=== PATIENT | female | born 1970 | race Two or more races ===

== ENCOUNTER 2020-06-16 10:23 | Outpatient (REF) | payer MEDICAID, SELFPAY | END 2020-06-16 10:24 | disposition home or self-care (01) | LOC: HO.MDS 10:23 | PROVIDERS: PCP Internal Medicine Geriatric Medicine; Visit Provider Internal Medicine Gastroenterology | DX: K50.10 Crohn's disease of large intestine without complications (principal) | CPT/HCPCS: 96372 ==

== ENCOUNTER 2020-07-17 14:20 | Outpatient (REF) | payer MEDICAID, SELFPAY | END 2020-07-17 14:21 | disposition home or self-care (01) | LOC: HO.MDS 14:20 | PROVIDERS: PCP Internal Medicine Geriatric Medicine; Visit Provider Internal Medicine Gastroenterology | DX: K50.118 Crohn's disease of large intestine with other complication (principal) | CPT/HCPCS: 96372 ==

== ENCOUNTER 2020-08-14 | Outpatient (REF) | payer MEDICAID, SELFPAY | END 2020-08-14 00:01 | disposition home or self-care (01) | LOC: HO.MDS | PROVIDERS: PCP Internal Medicine Geriatric Medicine; Visit Provider Internal Medicine Gastroenterology | DX: K50.118 Crohn's disease of large intestine with other complication (principal) | CPT/HCPCS: 96372; J3357 ==

== ENCOUNTER 2020-09-11 10:04 | Outpatient (REF) | payer MEDICAID, SELFPAY | END 2020-09-11 10:05 | disposition home or self-care (01) | LOC: HO.MDS 10:04 | PROVIDERS: PCP Internal Medicine Geriatric Medicine; Visit Provider Internal Medicine Gastroenterology | DX: K50.118 Crohn's disease of large intestine with other complication (principal) | CPT/HCPCS: 96372; J3357 ==

== ENCOUNTER 2020-10-05 19:48 | Emergency (ER) | payer MEDICAID, SELFPAY ==
[2020-10-05 19:53] VITALS: BP 147/95; BP 160/108; PULSE 72; PULSE 80; RESP 18; TEMP 36.8; O2SAT 96; O2SAT 98; BMI 33.9
[2020-10-05 20:00] VITALS: BP 127/72; PULSE 73; RESP 16; O2SAT 98
--- NOTE | 2020-10-05 20:57 | ECG_ITS ---
Test Reason : HIGH BP HEADACHE Blood Pressure : / mmHG Vent. Rate : 066 BPM Atrial Rate : 066 BPM P-R Int : 130 ms QRS Dur : 080 ms QT Int : 432 ms P-R-T Axes : -09 016 017 degrees QTc Int : 452 ms Sinus rhythm with occasional Premature ventricular complexes Otherwise normal ECG When compared with ECG of 24-APR-2020 21:02, Premature ventricular complexes are now Present Referred By: Kenia Caro Electronically Signed By:ZHANE SUTTON MD
--- NOTE | 2020-10-05 21:36 | ED.GENADULT ---
HPI - General Adult General Chief complaint: General Medical Stated complaint: high blood pressure Time Seen by Provider: 10/05/20 20:02 Source: patient and client leader Mode of arrival: EMS History of Present Illness HPI narrative: This is a 50-year-old female with history of hypertension, Crohn's who presents with 2 days of elevated blood pressure and denies any associated medication changes or new medications recently. Patient states that this has been associated with a headache and chills but denies any speech or unilateral numbness/weakness/tingling. In addition, she denies any shortness of breath, chest pain/palpitations, nausea, abdominal discomfort, diarrhea, but states she is having some suprapubic discomfort. She states that she has not contacted her primary care physician regarding her blood pressure. Related Data Home Medications Medication Instructions Recorded Confirmed amitriptyline 2 tab PO BEDTIME 10/05/20 10/05/20 amlodipine 1 tab PO QAM 10/05/20 10/05/20 budesonide 3 cap PO QAM 10/05/20 10/05/20 budesonide-formoterol [Symbicort] 2 puff PO BID 10/05/20 10/05/20 calcium carbonate-vitamin D3 1 tab PO BID 10/05/20 10/05/20 clonazepam 1 tab PO DAILY PRN 10/05/20 10/05/20 docusate sodium [DOK] 1 cap PO BID 10/05/20 10/05/20 doxazosin 1 tab PO BEDTIME 10/05/20 10/05/20 ergocalciferol (vitamin D2) 1 cap PO QWEEK 10/05/20 10/05/20 esomeprazole magnesium 1 cap PO QAM 10/05/20 10/05/20 methotrexate sodium 10 tab PO QWEEK 10/05/20 10/05/20 montelukast 1 tab PO BEDTIME 10/05/20 10/05/20 multivitamin 1 tab PO QAM 10/05/20 10/05/20 paroxetine HCl 1 tab PO QAM 10/05/20 10/05/20 topiramate 1 tab PO BID 10/05/20 10/05/20 tramadol 1 tab PO BID PRN 10/05/20 10/05/20 ustekinumab [Stelara] 1 syringe SUBCUT Q4W 10/05/20 10/05/20 vitamin B complex-folic acid [B 2 tab PO QAM 10/05/20 10/05/20 Complex 1 (with folic acid)] zolpidem 1 tab PO BEDTIME 10/05/20 10/05/20 Previous Rx's Medication Instructions Recorded budesonide 3 mg 9 mg PO DAILY 30 Days #90 ea 06/19/20 capsule,delayed,extended release vitamin B complex 2 tab PO DAILY 30 Days #60 tab 07/31/20 Allergies Allergy/AdvReac Type Severity Reaction Status Date / Time aspirin [ASA] Allergy Intermediate RASH Verified 10/05/20 20:00 azathioprine [From IMURAN] Allergy Intermediate PANCREATIC Verified 10/05/20 20:00 INFLAMMATION ibuprofen [IBUPROFEN] Allergy Intermediate TOLD NOT Verified 10/05/20 20:00 TO TAKE levofloxacin [From LEVAQUIN] Allergy Mild YEAST Verified 10/05/20 20:00 INFECTIONS Review of Systems Review of Systems: Pertinent positives and negatives as stated in HPI 10 point review systems is otherwise negative. [facility] Past Medical History Source: nursing notes reviewed Medical History Arthritis Cancer Crohn's disease HTN (hypertension) Migraine Social History Social History Advance Directives: No Advance Directives Information Provided: Yes Physical Exam Vital Signs: Vital Signs: Last Vital Signs Temp 98.2 F 10/05/20 19:53 Pulse 80 10/05/20 19:53 Resp 18 10/05/20 19:53 BP 147/95 H 10/05/20 19:53 Pulse Ox 98 10/05/20 19:53 Body Mass Index 33.9 VITAL SIGNS: Reviewed. GENERAL: Well developed, well nourished, mild distress. HEAD: Normocephalic/atraumatic, EYES: PERRLA, EOMI intact without pain, no nystagmus/pallor/icterus noted EARS: Ext canals without abnormality NOSE: Nares patent bilateral OROPHARYNX: no oral lesions noted, posterior pharynx clear NECK: Supple, no adenopathy LUNGS: Normal breath sounds. No adventitious sounds or accessory muscle use. SpO2<98> CARDIOVASCULAR: Regular rate and rhythm without noted murmurs, no JVD or lower extremity edema. ABDOMEN: Soft, non-tender, non-distended with bowel sounds. No rigidity. No guarding. No palpable masses or hernias noted MUSCULOSKELETAL: No tenderness, deformities, or effusions noted on gross inspection. EXTREMITIES: No cyanosis, clubbing or edema. SKIN: Inspection of the skin reveals no rashes, ulcerations, jaundice, pallor, or petechiae. NEUROLOGIC: Alert and oriented x 4. Strength and sensation to light touch were grossly intact x 4, no pronator drift, no facial asymmetry, cranial nerves 2-12 are grossly intact. Course Course Course Narrative: This is a 50-year-old female with history and clinical presentation consistent with likely migraine given her history and presenting symptoms without significant neural deficits and blood pressure although somewhat elevated low suspicion for contribution to patient's symptoms. On re-evaluation patient states that she has improved after receiving the migraine cocktail. On review of all investigations there are no acute findings to suggest Crohn's flare, UTI, electrolyte abnormalities. There is a noted transaminemia that appears to be consistent with prior values and no evidence to suggest a cholecystitis or hepatitis etiology in nature. As patient has continued to improve with her migraine treatment and has had significant reduction in her migraine-like symptoms she was discharged in stable condition with instructions to continue with her migraine medications and to follow up with her primary care provider by calling the office in the morning. Medical Decision Making Lab Data Result diagrams: 10/05/20 21:44 10/05/20 21:44 Labs: Lab Results 10/05/20 10/05/20 10/05/20 Range/Units 21:44 21:44 22:10 WBC 9.2 (4.8-10.8) X10*3/uL RBC 5.07 (4.20-5.50) X10*6/uL Hgb 14.2 (12.0-16.0) g/dl Hct 43.7 (37-47) % MCV 86.2 (80-98) fL MCH 28.0 (27.0-33.0) pg MCHC 32.5 (31.0-35.0) g/dl RDW 15.8 (11.0-16.0) % Plt Count 293 (160-400) X10*3/uL MPV 12.0 (9.4-12.3) fL Immature Gran % (Auto) 0.2 (0.0-0.4) % Neut % (Auto) 73.4 H (45-73) % Lymph % (Auto) 18.0 L (20-40) % Craig % (Auto) 5.5 (2-11) % Eos % (Auto) 2.4 (0-4) % Baso % (Auto) 0.5 (0-2) % Lymph # (Auto) 1.7 (1.2-4.9) X10*3/uL Craig # (Auto) 0.5 (0.1-1.2) X10*3/uL Eos # (Auto) 0.2 (0.0-0.4) X10*3/uL Baso # (Auto) 0.1 (0.0-0.2) X10*3/uL Abs Immat Gran (auto) 0.02 (0.00-0.03) X10*3/uL Absolute Neuts (auto) 6.7 (2.0-8.3) X10*3/uL Absolute Nucleated RBC 0.000 (0.0-0.012) X10*3/uL Nucleated RBC % (auto) 0.0 (0.0-0.2) /100WBC Sodium 138 (135-145) mmol/L Potassium 4.4 (3.3-5.1) mmol/L Chloride 103 (96-108) mmol/L Carbon Dioxide 25 (22-29) mmol/L Anion Gap 14 (12-20) BUN 14 (9-16) mg/dL Creatinine 0.76 (0.5-1.4) mg/dL Estim Creat Clear Calc 92.5 Estimated GFR > 60 Random Glucose 92 (60-115) mg/dL Calcium 9.8 (8.4-10.2) mg/dL Total Bilirubin 0.3 (0.0-1.0) mg/dL AST 88 H (5-31) U/L ALT 131 H (0-31) U/L Alkaline Phosphatase 96 (39-117) U/L Total Protein 8.3 H (6.5-8.0) g/dL Albumin 4.7 (3.5-5.0) g/dL Urine Color YELLOW Urine Appearance CLEAR Urine pH 7.0 (5.0-8.0) Ur Specific [place] 1.020 (1.005-1.025) Urine Protein 1+ H (NEG-TRACE) MG/DL Urine Glucose (UA) NEG (NEG) MG/DL Urine Ketones NEG (NEG) MG/DL Urine Blood TRACE (NEG) Urine Nitrite NEG (NEG) Ur Leukocyte Esterase NEG (NEG) Urine RBC 1-4 (0) /HPF Urine WBC 0-2 (0-4) /HPF Ur Squamous Epith Cells TRACE /LPF Urine Bacteria NONE /LPF Urine Mucus TRACE /LPF ECG Data Attestation: I personally reviewed and interpreted this ECG as follows: Prior ECG tracings: available for review (04/24/2020 no acute changes on comparison) Interpretation: Sinus rhythm, HR-66, no acute evidence of ischemia, DC/QRS/QTC are within normal limits. Discharge Plan Discharge Clinical Impression: Migraine Qualifiers: Migraine type: unspecified Status migrainosus presence: without status migrainosus Intractability: not intractable Qualified Code(s): G43.909 - Migraine, unspecified, not intractable, without status migrainosus Hypertension Qualifiers: Hypertension type: unspecified Qualified Code(s): I10 - Essential (primary) hypertension Patient Disposition: Home, Self-Care Instructions: Migraine Headache (ED), Hypertension (ED), DASH Eating Plan (ED) Additional Instructions: 1. Reanude todos los medicamentos caseros seg?n lo prescrito. 2. Llame al consultorio de johnston proveedor de atenci?n primaria a primera hora de la ma?bernadine para programar juan daniel amber de seguimiento para el manejo de la migra?a. No dude en volver al servicio de urgencias si experimenta un empeoramiento sarina de zoran s?ntomas. Prescriptions: No Action budesonide 3 mg capsule,delayed,extend.release 9 mg PO DAILY 30 Days Qty: 90 RF: 3 vitamin B complex Tablet 2 tab PO DAILY 30 Days Qty: 60 RF: 3 multivitamin Tablet 1 tab PO QAM RF: 0 clonazepam 0.5 mg tablet 1 tab PO DAILY PRN (Reason: anxiety) RF: 0 tramadol 50 mg tablet 1 tab PO BID PRN (Reason: Pain) RF: 0 amitriptyline 25 mg tablet 2 tab PO BEDTIME RF: 0 methotrexate sodium 2.5 mg tablet 10 tab PO QWEEK RF: 0 amlodipine 10 mg tablet 1 tab PO QAM RF: 0 docusate sodium [DOK] 100 mg capsule 1 cap PO BID RF: 0 montelukast 10 mg tablet 1 tab PO BEDTIME RF: 0 ergocalciferol (vitamin D2) 1,250 mcg (50,000 unit) capsule 1 cap PO QWEEK RF: 0 budesonide 3 mg capsule,delayed,extend.release 3 cap PO QAM RF: 0 zolpidem 10 mg tablet 1 tab PO BEDTIME RF: 0 paroxetine HCl 40 mg tablet 1 tab PO QAM RF: 0 topiramate 100 mg tablet 1 tab PO BID RF: 0 doxazosin 2 mg tablet 1 tab PO BEDTIME RF: 0 esomeprazole magnesium 20 mg capsule,delayed release(DR/EC) 1 cap PO QAM RF: 0 vitamin B complex-folic acid [B Complex 1 (with folic acid)] 0.4 mg tablet 2 tab PO QAM RF: 0 calcium carbonate-vitamin D3 600 mg(1,500mg) -400 unit tablet 1 tab PO BID RF: 0 budesonide-formoterol [Symbicort] 160-4.5 mcg/actuation HFA aerosol inhaler 2 puff PO BID RF: 0 Stelara 90 mg/mL syringe 1 syringe subcut Q4W RF: 0 Referrals: [facility] [Primary Care Provider] - 2 days (Re-evaluation after seeing the emergency department for migraine and elevated blood pressure.) Print Language: Georgian
[2020-10-05 21:55] LABS: MANUAL DIFF FLAG NO
[2020-10-05 21:56] LABS: Basophils Absolute Auto 0.1 X10*3/uL (0.0-0.2); Basophils Percent Auto 0.5 % (0-2); Eosinophils Absolute Auto 0.2 X10*3/uL (0.0-0.4); Eosinophils Percent Auto 2.4 % (0-4); Hematocrit 43.7 % (37-47); Hemoglobin 14.2 g/dl (12.0-16.0); Imm Gran Abs Auto 0.02 X10*3/uL (0.00-0.03); Imm Gran Pct Auto 0.2 % (0.0-0.4); Lymphocytes Absolute Auto 1.7 X10*3/uL (1.2-4.9); Mean Corpuscular HGB Conc 32.5 g/dl (31.0-35.0); Mean Corpuscular Volume 86.2 fL (80-98); Monocytes Absolute Auto 0.5 X10*3/uL (0.1-1.2); Monocytes Percent Auto 5.5 % (2-11); Neutrophils Absolute Auto 6.7 X10*3/uL (2.0-8.3); Neutrophils Percent Auto 73.4 % (45-73); Platelet Count 293 X10*3/uL (160-400); Red Blood Count 5.07 X10*6/uL (4.20-5.50); Red Cell Distribution Width 15.8 % (11.0-16.0); White Blood Count 9.2 X10*3/uL (4.8-10.8)
[2020-10-05] MEDS: 0.9 % Sodium Chloride 1,000 ML 999 ML IV (22:08)
[2020-10-05] MEDS: Metoclopramide HCl 10 MG/2 ML VIAL IVPUSH (22:09)
[2020-10-05] MEDS: diphenhydrAMINE HCL 50 MG/ML VIAL 25 MG IVPUSH (22:09)
--- NOTE | 2020-10-05 22:09 | PC.NURSE ---
pt medicated per emar for head pain. pt neuro intact. perrla
[2020-10-05 22:17] LABS: Glucose Urine UA NEG (NEG); Leukocyte Esterase Urine NEG (NEG); Nitrite Urine NEG (NEG); Urine Blood TRACE (NEG); Urine Ketones NEG (NEG); Urine Protein 1+ MG/DL (NEG-TRACE)
[2020-10-05 22:21] LABS: Appearance Urine CLEAR; Color Urine YELLOW
[2020-10-05 22:26] LABS: Mucus Urine TRACE /LPF; Squamous Epithelial Cell Urine TRACE /LPF; WBC Urine 0-2 /HPF (0-4)
[2020-10-05 22:41] LABS: Alanine Aminotransferase 131 U/L (0-31); Albumin Level 4.7 g/dL (3.5-5.0); Alkaline Phosphatase 96 U/L (39-117); Anion Gap 14 (12-20); Aspartate Amino Transferase 88 U/L (5-31); Bilirubin Total 0.3 mg/dL (0.0-1.0); Blood Urea Nitrogen 14 mg/dL (9-16); Calcium 9.8 mg/dL (8.4-10.2); Carbon Dioxide 25 mmol/L (22-29); Chloride 103 mmol/L (96-108); Creatinine Clr Calc Pharmacy 92.5; Estimated Glomerular Filt Rate > 60; Glucose Random 92 mg/dL (60-115); Potassium 4.4 mmol/L (3.3-5.1); Sodium 138 mmol/L (135-145); Total Protein 8.3 g/dL (6.5-8.0)
== END 2020-10-05 23:36 | disposition home or self-care (01) ==
PROVIDERS: Emergency Provider Student in an Organized Health Care Education/Training Program
DX: G43.909 Migraine, unspecified, not intractable, without status migrainosus (principal); I10 Essential (primary) hypertension; Z79.899 Other long term (current) drug therapy
CPT/HCPCS: 36415; 80053; 81001; 85025; 93005; 96361; 96374; 96375; 99284; J1200; J2765

== ENCOUNTER 2020-10-10 10:57 | Outpatient (REF) | payer MEDICAID, SELFPAY | END 2020-10-10 10:58 | disposition home or self-care (01) | LOC: HO.MDS 10:57 | PROVIDERS: PCP Internal Medicine Geriatric Medicine; Visit Provider Internal Medicine Gastroenterology | DX: K50.118 Crohn's disease of large intestine with other complication (principal) | CPT/HCPCS: 96372; J3357 ==

== ENCOUNTER 2020-11-07 11:36 | Outpatient (REF) | payer MEDICAID, SELFPAY | END 2020-11-07 11:37 | disposition home or self-care (01) | LOC: HO.MDS 11:36 | PROVIDERS: PCP Internal Medicine Geriatric Medicine; Visit Provider Internal Medicine Gastroenterology | DX: K50.118 Crohn's disease of large intestine with other complication (principal) | CPT/HCPCS: 96372; J3357 ==

== ENCOUNTER 2020-11-17 15:06 | Outpatient (REF) | payer MEDICAID, SELFPAY ==
[2020-11-17 16:40] LABS: MANUAL DIFF FLAG NO
[2020-11-17 16:53] LABS: Basophils Absolute Auto 0.1 X10*3/uL (0.0-0.2); Basophils Percent Auto 0.6 % (0-2); Eosinophils Absolute Auto 0.2 X10*3/uL (0.0-0.4); Eosinophils Percent Auto 1.6 % (0-4); Hematocrit 40.4 % (37-47); Hemoglobin 13.2 g/dl (12.0-16.0); Imm Gran Abs Auto 0.03 X10*3/uL (0.00-0.03); Imm Gran Pct Auto 0.3 % (0.0-0.4); Lymphocytes Absolute Auto 1.9 X10*3/uL (1.2-4.9); Lymphocytes Percent Auto 20.6 % (20-40); Mean Corpuscular HGB Conc 32.7 g/dl (31.0-35.0); Mean Corpuscular Hemoglobin 28.5 pg (27.0-33.0); Mean Corpuscular Volume 87.3 fL (80-98); Mean Platelet Volume 12.2 fL (9.4-12.3); Monocytes Absolute Auto 0.8 X10*3/uL (0.1-1.2); Monocytes Percent Auto 8.2 % (2-11); Neutrophils Absolute Auto 6.5 X10*3/uL (2.0-8.3); Neutrophils Percent Auto 68.7 % (45-73); Platelet Count 278 X10*3/uL (160-400); Red Blood Count 4.63 X10*6/uL (4.20-5.50); Red Cell Distribution Width 15.9 % (11.0-16.0); White Blood Count 9.4 X10*3/uL (4.8-10.8)
[2020-11-17 17:12] LABS: C Reactive Protein 0.86 mg/dL (< or = 0.50); Cholesterol 247 mg/dL; HDL Cholesterol 55 mg/dL; LDL Cholesterol Calculated 159 mg/dl; Triglycerides 168 mg/dL
[2020-11-17 17:34] LABS: Vitamin D 25-OH Total 24.5 ng/mL (>30)
[2020-11-17 17:59] LABS: Erythrocyte Sedimentation Rate 14 MM/HR (0-20)
== END 2020-11-17 15:07 | disposition home or self-care (01) ==
LOC: HO.LAB 15:06
PROVIDERS: PCP Internal Medicine; Visit Provider Internal Medicine Gastroenterology
DX: K50.10 Crohn's disease of large intestine without complications (principal); R79.89 Other specified abnormal findings of blood chemistry; E55.9 Vitamin D deficiency, unspecified
CPT/HCPCS: 36415; 80061; 82306; 85025; 85652; 86140; 99212

== ENCOUNTER 2020-12-05 11:58 | Outpatient (REF) | payer MEDICAID, SELFPAY | END 2020-12-05 11:59 | disposition home or self-care (01) | LOC: HO.MDS 11:58 | PROVIDERS: Visit Provider Internal Medicine Gastroenterology | DX: K50.118 Crohn's disease of large intestine with other complication (principal) | CPT/HCPCS: 96372; J3357 ==

== ENCOUNTER 2020-12-11 10:00 | Outpatient (REF) | payer MEDICAID, SELFPAY ==
--- NOTE | ~2020-12-11 | MM_ITS ---
EXAMINATION: MM SCREENING DIGITAL BREAST TOMOSYNTHESIS, BILATERAL CLINICAL INFORMATION: Screening. Asymptomatic. The lifetime risk of breast cancer based on the Tyrer-Cuzick Model is 6%. COMPARISON: Mammography: 12/15/2018, 02/08/2014 TECHNIQUE: Digital breast tomosynthesis is performed in both the craniocaudal and mediolateral oblique views along with computer-aided detection (CAD). Synthesized 2D images are generated from the tomosynthesis. FINDINGS: There are scattered areas of fibroglandular density (ACR BI-RADS breast composition Category b). There are no significant masses, abnormal calcifications, or other abnormalities. No significant changes from prior studies. MM/MM tomosynthesis screening BI IMPRESSION: No mammographic evidence of malignancy. ASSESSMENT: BI-RADS 1: Negative RECOMMENDATION: Routine annual mammography screening. This patient's information was entered into a reminder system with a target due date for their next mammogram.
== END 2020-12-11 10:01 | disposition home or self-care (01) ==
LOC: HO.MAMMO 10:00
PROVIDERS: Visit Provider Internal Medicine
DX: Z12.31 Encounter for screening mammogram for malignant neoplasm of breast (principal)
CPT/HCPCS: 77063; 77067

== ENCOUNTER 2021-01-02 12:42 | Outpatient (REF) | payer MEDICAID, SELFPAY | END 2021-01-02 12:43 | disposition home or self-care (01) | LOC: HO.MDS 12:42 | PROVIDERS: PCP Internal Medicine; Visit Provider Internal Medicine Gastroenterology | DX: K50.118 Crohn's disease of large intestine with other complication (principal) | CPT/HCPCS: 96372; J3357 ==

== ENCOUNTER 2021-01-30 11:58 | Outpatient (REF) | payer MEDICAID, SELFPAY | END 2021-01-30 11:59 | disposition home or self-care (01) | LOC: HO.MDS 11:58 | PROVIDERS: PCP Internal Medicine; Visit Provider Internal Medicine Gastroenterology | DX: K50.118 Crohn's disease of large intestine with other complication (principal) | CPT/HCPCS: 96372; J3357 ==

== ENCOUNTER 2021-03-01 09:29 | Inpatient (IN) | payer MEDICAID, SELFPAY ==
[2021-03-01] VITALS (9 sets, daily range): BP systolic 117–200; BP diastolic 64–135; PULSE 60–90; RESP 15–18; TEMP 35.8–36.8; O2SAT 96–100; BMI 34.1
--- NOTE | ~2021-03-01 | CT_ITS ---
EXAMINATION: CT ABDOMEN AND PELVIS WITH CONTRAST CLINICAL INFORMATION: Crohn's disease. Abdominal pain. COMPARISON: Previous CT scan of the abdomen and pelvis most recent March 2020 TECHNIQUE: Multidetector volumetric images were obtained from the superior aspect of the liver through the pubic symphysis following administration 85 mL of Omnipaque 350 intravenous contrast. Sagittal and coronal reformatted images were obtained on the technologist's workstation. Oral contrast: Yes This CT examination was performed using dose optimization techniques as appropriate, variously including the following: *Automated exposure control *Adjustment of mA and/or kV according to patient size (this includes techniques or standardized protocols for targeted exams where dose is matched to indication/reason for exam; i.e. extremities or head) *Use of iterative reconstruction technique DLP: 641 mGy-cm FINDINGS: LUNG BASES: The visualized lung bases are unremarkable. LIVER, GALLBLADDER, AND BILIARY TREE: The liver is normal in size, shape, and attenuation. No focal hepatic lesion or biliary ductal dilatation is present. The gallbladder is unremarkable with no evidence of radiopaque gallstones, gallbladder wall thickening, or obvious pericholecystic inflammatory changes. PANCREAS: Unremarkable. SPLEEN: Unremarkable. ADRENAL GLANDS: Unremarkable. KIDNEYS AND URETERS: The kidneys are normal in size, shape, and attenuation. No hydronephrosis, hydroureter, or calculi seen. No perinephric stranding. BLADDER: Unremarkable. GASTROINTESTINAL TRACT: There are postsurgical changes to the proximal sigmoid colon. There is wall thickening of the transverse colon and left colon. There is some edema or low-attenuation in the wall of the colon, stranding of the surrounding fat and prominent vasa recta. Appearance is suggestive of active colitis. No evidence of obstruction, perforation or abscess is seen. Small and large bowel is otherwise unremarkable. The appendix is unremarkable. ABDOMINAL WALL: There are postsurgical changes to the anterior abdominal wall in evidence of previous hernia repairs with mesh. No recurrent hernia is seen. LYMPH NODES: Unremarkable VASCULAR: Unremarkable. PELVIC VISCERA: Unremarkable. OSSEOUS STRUCTURES: There is degenerative disc disease at L5-S1. CT/CT abdomen pelvis w con IMPRESSION: Colitis of the transverse colon and left colon.
--- NOTE | ~2021-03-01 | US_ITS ---
EXAMINATION: US RETROPERITONEAL LIMITED (RENAL ONLY) CLINICAL INFORMATION: Rule out stone. COMPARISON: None TECHNIQUE: Portable limited ultrasound technique. FINDINGS: RIGHT KIDNEY: 9.1 x 4.7 x 4.5 cm (SAG x AP x TRV). The kidney is normal in size, contour, and echogenicity. Renal cortical thickness is normal. No calculi or focal parenchymal lesions. No hydronephrosis. LEFT KIDNEY: 9 x 5.3 x 5.8 cm (SAG x AP x TRV). The kidney is normal in size, contour, and echogenicity. Renal cortical thickness is normal. No calculi or focal parenchymal lesions. No hydronephrosis. US/US renal BI IMPRESSION: Limited portable technique. No ultrasound evidence of kidney stones or hydronephrosis..
[2021-03-01 10:08] LABS: Appearance Urine HAZY; Color Urine YELLOW; Glucose Urine UA 100 MG/DL (NEG); Leukocyte Esterase Urine NEG (NEG); Nitrite Urine NEG (NEG); PH 6.5 (5.0-8.0); Urine Blood TRACE (NEG); Urine Ketones NEG (NEG); Urine Protein 1+ MG/DL (NEG-TRACE)
[2021-03-01 10:16] LABS: Basophils Percent Auto 0.2 % (0-2); Eosinophils Percent Auto 0.1 % (0-4); Hematocrit 45.8 % (37-47); Hemoglobin 14.9 g/dl (12.0-16.0); Imm Gran Abs Auto 0.03 X10*3/uL (0.00-0.03); Imm Gran Pct Auto 0.2 % (0.0-0.4); Lymphocytes Absolute Auto 0.6 X10*3/uL (1.2-4.9); Lymphocytes Percent Auto 4.2 % (20-40); MANUAL DIFF FLAG SCAN; Mean Corpuscular HGB Conc 32.5 g/dl (31.0-35.0); Mean Corpuscular Hemoglobin 27.6 pg (27.0-33.0); Mean Corpuscular Volume 84.8 fL (80-98); Mean Platelet Volume 11.7 fL (9.4-12.3); Monocytes Absolute Auto 0.6 X10*3/uL (0.1-1.2); Monocytes Percent Auto 3.8 % (2-11); Neutrophils Absolute Auto 13.1 X10*3/uL (2.0-8.3); Neutrophils Percent Auto 91.5 % (45-73); Platelet Count 281 X10*3/uL (160-400); Red Cell Distribution Width 15.4 % (11.0-16.0); SCAN SMEAR FLAG 1; White Blood Count 14.4 X10*3/uL (4.8-10.8)
[2021-03-01 10:16] LABS: WBC Urine 0-2 /HPF (0-4)
[2021-03-01 10:17] LABS: Amorphous Sediment Urine 2+ /LPF; Bacteria Urine TRACE /LPF; Squamous Epithelial Cell Urine TRACE /LPF
[2021-03-01] MEDS: 0.9 % Sodium Chloride 1,000 ML 999 ML IVCONT (10:19)
[2021-03-01] MEDS: ondansetron HCL 4 MG/2 ML VIAL IVPUSH ×2 (10:21→18:07)
[2021-03-01] MEDS: methylPREDNISolone Sod Succ 125 MG/2 ML VIAL IVPUSH (10:22)
[2021-03-01] MEDS: HYDROmorphone HCl 1 MG/ML SYRINGE IVPUSH (10:22)
[2021-03-01 10:28] LABS: Prothrombin Time 11.3 SEC (9.9-13.0)
[2021-03-01 10:36] LABS: SLIDE REVIEW VERIFIED
[2021-03-01 10:41] LABS: Alanine Aminotransferase 17 U/L (0-31); Albumin Level 4.7 g/dL (3.5-5.0); Alkaline Phosphatase 136 U/L (39-117); Anion Gap 17 (12-20); Aspartate Amino Transferase 19 U/L (5-31); Bilirubin Total 0.4 mg/dL (0.0-1.0); Blood Urea Nitrogen 16 mg/dL (9-16); Calcium 9.9 mg/dL (8.4-10.2); Carbon Dioxide 23 mmol/L (22-29); Chloride 105 mmol/L (96-108); Creatinine Clr Calc Pharmacy 75.4; Estimated Glomerular Filt Rate > 60; Glucose Random 138 mg/dL (60-115); Lipase 13 U/L (8-78); Magnesium 2.2 mg/dL (1.6-2.6); Potassium 3.6 mmol/L (3.3-5.1); Sodium 141 mmol/L (135-145); Total Protein 8.4 g/dL (6.5-8.0)
[2021-03-01 10:42] LABS: COVID-19 Test Negative (Negative)
[2021-03-01 10:47] LABS: HCG Quantitative < 2 mIU/mL
--- NOTE | 2021-03-01 11:14 | PHA.MEDREC ---
Pharmacy Consult ? Medication Reconciliation Pharmacy has completed the medication reconciliation.
[2021-03-01] MEDS: iohexoL 350 MG/ML 100 ML INFUS..BTL 85 ML IV (11:20)
--- NOTE | 2021-03-01 11:43 | ED.ABDPAIN ---
HPI - Abdominal Pain General Chief Complaint: General Medical Stated Complaint: crohns exacerbation Time Seen by Provider: 03/01/21 09:52 Source: patient Mode of arrival: ambulatory Limitations: no limitations History of Present Illness HPI narrative: 50-year-old female with a past medical history of Crohn's disease long-term systemic steroid user on Stelara injection last on 12/05/2020 who is status post sigmoid colectomy with colostomy in 2010, reversible of colostomy in 2011, kidney stones, rheumatoid arthritis, iron deficiency anemia, cancer, migraine headaches, hypertension, hyperlipidemia, and depression presenting to the ED via EMS with complaints of severe upper abdominal pain for the past 4 days worse since 19:00 last night. She is being followed by GI Dr. Palafox and she last seen her on 11/17/2020 from reviewing her note it appears that patient has been suffering from Crohn's colitis for 20 years. She has failed multiple medications in the past due to lack of efficacy or side effects including Remicade, Humira, Cimzia, Entyvio, azathioprine caused pancreatitis. she had best response with Humira although was stopped due to current for MS. She was seen by Neurology at [facility] and advised for repeat MRI scan of her brain although the GI RN nurse was informed that she was discharged from [facility] due to multiple no shows. She is currently on Stelara injection every 8 weeks which has worked well for her. She is treated intermittently with prednisone for Crohn's flares. colonoscopy on 01/18/2020 revealed patchy erythema throughout the colon therefore surveillance biopsies were obtained. Focal area of ulcerations with a tight stricture at 18 to 20 cms and unable to pass the colonoscope through the stricture. Stricture was dilated with a 12mm (26 F) CRE balloon and colonoscope was then advanced into the colon. Patchy erythema with focal ulcers in the distal rectum. Inflammation in the recto-sigmoid significantly improved from last year - severe left sided colitis with minimal inflammation in the remaining colon. Biopsies were negative for CMV. Patient was seen at [facility] for a 2nd opinion regarding treatment options and addition of methotrexate was advised. Patient was started on methotrexate 25 mg intramuscularly every week on 04/13/19 in the Oncology clinic. She was switched to p.o. methotrexate 50 mg once a week in Sep, 2019. She is also on budesonide 9 mg once daily. She continues to have intermittent flares requiring IV steroids. Pt was seen at [facility] on 05/03/20 and dose of MTX was increased to 25 mg PO every week. MD elicited complaint: abdominal pain Pertinent past history: other ( Crohn's colitis) Onset (ago): day(s) ( 4 days worse since last night) Pain Consistency: constant Location: epigastric, LUQ and RUQ Severity: severe Pain scale (0-10): 10 Quality: other ( pain) Radiation: none Migration to: no migration Exacerbating factors: nothing Relieving factors: nothing Associated symptoms: denies other symptoms Treatments prior to arrival: other ( she came via EMS and received fentanyl and no symptomatic relief per patient) Related Data Home Medications Medication Instructions Recorded Confirmed amitriptyline 2 tab PO BEDTIME 10/05/20 03/01/21 amlodipine 1 tab PO QAM 10/05/20 03/01/21 budesonide-formoterol [Symbicort] 2 puff PO BID 10/05/20 03/01/21 calcium carbonate-vitamin D3 1 tab PO BID 10/05/20 03/01/21 clonazepam 1 tab PO DAILY 10/05/20 03/01/21 docusate sodium [DOK] 1 cap PO BID PRN 10/05/20 03/01/21 doxazosin 1 tab PO BEDTIME 10/05/20 03/01/21 ergocalciferol (vitamin D2) 1 cap PO QWEEK 10/05/20 03/01/21 methotrexate sodium 10 tab PO QWEEK 10/05/20 03/01/21 montelukast 1 tab PO BEDTIME 10/05/20 03/01/21 multivitamin 1 tab PO QAM 10/05/20 03/01/21 paroxetine HCl 1 tab PO QAM 10/05/20 03/01/21 topiramate 1 tab PO BID 10/05/20 03/01/21 tramadol 1 tab PO BID PRN 10/05/20 03/01/21 zolpidem 1 tab PO BEDTIME 10/05/20 03/01/21 albuterol sulfate 2 puff PO QID PRN 03/01/21 03/01/21 buspirone 1 tab PO DAILY 03/01/21 03/01/21 calcium carbonate [Tums E-X] 600 mg PO BIDPC 03/01/21 03/01/21 lidocaine 1 patch TOPICAL DAILY 03/01/21 03/01/21 polyvinyl alcohol [Artificial 1 drp OPHTHALMIC (EYE) QID PRN 03/01/21 03/01/21 Tears (polyvin alc)] Previous Rx's Medication Instructions Recorded budesonide 3 mg 9 mg PO DAILY 30 Days #90 ea 10/24/20 capsule,delayed,extended release vitamin B complex 1 tab PO DAILY 60 Days #60 tab 02/01/21 ustekinumab 90 mg/mL subcutaneous 90 mg SUBCUT Q4W 28 Days #1 ml 02/02/21 syringe Allergies Allergy/AdvReac Type Severity Reaction Status Date / Time aspirin [ASA] Allergy Intermediate RASH Verified 11/17/20 15:07 azathioprine [From IMURAN] Allergy Intermediate PANCREATIC Verified 11/17/20 15:07 INFLAMMATION ibuprofen [IBUPROFEN] Allergy Intermediate TOLD NOT Verified 11/17/20 15:07 TO TAKE levofloxacin [From LEVAQUIN] Allergy Mild YEAST Verified 11/17/20 15:07 INFECTIONS Review of Systems Review of Systems Constitutional : No Weight loss, No Fever, No Chills, No Night Sweats, No Fatigue, No Malaise ENT/Mouth: No ear pain, No sore throat, No Difficulty swallowing Cardiovascular : No Chest Pain, No SOB, No Dyspnea on Exertion, No Orthopnea, NoEdema, No Palpitations Respiratory : No Cough, No Sputum, No Wheezing, No Dyspnea Gastrointestinal : positive abdominal pain, No Nausea, No Vomiting, No Diarrhea, No blood streaked emesis, No coffee-ground emesis, No gross hematemesis, No blood streak stool, No gross hematochezia, No Melena Genitourinary : No irregular bleeding, No Dysuria, No Urinary Frequency, No Hematuria,No Urinary Incontinence, No Urgency, No Flank Pain Musculoskeletal : No joint pain, No Myalgias, No Joint Swelling Skin : No Skin Lesions, No rash Neuro : No Weakness, No Numbness, No Paresthesias, No Loss of Consciousness, NoDizziness, No Headache Psych : No Social Issues, Heme/Lymph: No Bruising, No Bleeding,No Lymphadenopathy Endocrine : No Polyuria, No Polydipsia, No Temperature Intolerance Yes all other systems are reviewed and are negative Physical Exam Vital Signs: Vital Signs: Last Vital Signs Temp 98.3 F 03/01/21 11:21 Pulse 71 03/01/21 11:21 Resp 16 03/01/21 11:21 BP 145/65 H 03/01/21 11:21 Pulse Ox 100 03/01/21 11:21 Body Mass Index 34.1 vital signs have been reviewed as normal and appeared to be correct. Blood pressure hypertensive 145/65. Heart rate normal. Respiration rate normal. Temperature normal. Oxygen saturation normal. Appearance: Alert. Oriented X3. reporting severe abdominal pain although no other acute distress noted. Head: Normal external exam. Normocephalic. Eyes: PERRLA. EOMI. Conjunctiva and sclera normal. Eyelids normal. ENT: Pharynx normal. Uvula midline. Moist mucous membranes. Neck: Normal inspection. Neck supple. FROM. No adenopathy. No meningeal signs. CVS: Normal heart rate and rhythm. Heart sound normal. No murmurs noted. Pulses normal throughout. Respiratory: No respiratory distress. Painless inspiration. Breath sounds normal. No wheezes/rales/rhonchi noted. Chest nontender. No accessory muscle usage noted or decreased air movement noted. Abdomen: Soft and Severe tenderness to upper abdomen periumbilical area with guarding. Nondistended. No rigidity. Bowel sounds normal in all 4 quadrants. No distention noted. No organomegaly noted. No visible injury noted. No rebound tenderness. Negative Rovsing sign. Negative obturator's sign. Negative psoas sign. Negative Holland sign. Back: No CVA tenderness. Full range of motion noted. Skin: Skin warm and dry. Normal skin color. Normal skin turgor. No rashes/lesions/lacerations noted. Extremities: Extremities exhibit normal range of motion. Extremities nontender. Neuro: Oriented X 3. No motor deficit. No sensory deficit. Reflexes normal. Normal steady gait. Course Course Course Narrative: 10am - 50-year-old female with a past medical history of Crohn's disease long-term systemic steroid user on Stelara injection last on 12/05/2020 who is status post sigmoid colectomy with colostomy in 2010, reversible of colostomy in 2011, kidney stones, rheumatoid arthritis, iron deficiency anemia, cancer, migraine headaches, hypertension, hyperlipidemia, and depression presenting to the ED via EMS with complaints of severe upper abdominal pain for the past 4 days worse since 19:00 last night. Plan: Labs, CT scan abdomen pelvis with IV contrast, UA. Provide a L of IV fluids, 1 mg of IV Dilaudid and 4 mg of Zofran and re-evaluate. Reevaluation(s) Reevaluation #1: - Labs return patient with an elevated white blood cell count 45050. random glucose 138. Alkaline phosphate 136. Total protein 8.4. Otherwise all other labs are within normal limits. Serum quant negative. UA with 100 glucose otherwise no evidence of UTI. COVID swab negative. - CT scan abdomen and pelvis with IV contrast revealed colitis of transverse colon and left colon - therefore will obtain blood cultures and lactic acid patient does not meet sepsis criteria although I am giving IV antibiotics this is why I am obtaining the blood cultures and lactic acid. Plan is to admit to Dr. Kaplan for acute on chronic Crohn's with colitis of the transverse colon and left colon and pain control. Patient understands agrees with this plan. Time: 12:32 MDM - Abdominal Pain Medical Records Attestation: I reviewed the patient's medical records. Lab Data Attestation: I reviewed the patient's lab results. Result diagrams: 03/01/21 10:10 03/01/21 10:09 Labs: Lab Results 03/01/21 03/01/21 03/01/21 Range/Units 10:01 10:09 10:09 WBC (4.8-10.8) X10*3/uL RBC (4.20-5.50) X10*6/uL Hgb (12.0-16.0) g/dl Hct (37-47) % MCV (80-98) fL MCH (27.0-33.0) pg MCHC (31.0-35.0) g/dl RDW (11.0-16.0) % Plt Count (160-400) X10*3/uL MPV (9.4-12.3) fL Immature Gran % (Auto) (0.0-0.4) % Neut % (Auto) (45-73) % Lymph % (Auto) (20-40) % [place] % (Auto) (2-11) % Eos % (Auto) (0-4) % Baso % (Auto) (0-2) % Lymph # (Auto) (1.2-4.9) X10*3/uL [place] # (Auto) (0.1-1.2) X10*3/uL Eos # (Auto) (0.0-0.4) X10*3/uL Baso # (Auto) (0.0-0.2) X10*3/uL Abs Immat Gran (auto) (0.00-0.03) X10*3/uL Absolute Neuts (auto) (2.0-8.3) X10*3/uL Absolute Nucleated RBC (0.0-0.012) X10*3/uL Nucleated RBC % (auto) (0.0-0.2) /100WBC Smear Tech's Comments PT 11.3 (9.9-13.0) SEC INR 1.0 (0.9-1.1) Sodium 141 (135-145) mmol/L Potassium 3.6 (3.3-5.1) mmol/L Chloride 105 (96-108) mmol/L Carbon Dioxide 23 (22-29) mmol/L Anion Gap 17 (12-20) BUN 16 (9-16) mg/dL Creatinine 0.90 (0.5-1.4) mg/dL Estim Creat Clear Calc 75.4 Estimated GFR > 60 Random Glucose 138 H D (60-115) mg/dL Calcium 9.9 (8.4-10.2) mg/dL Magnesium 2.2 (1.6-2.6) mg/dL Total Bilirubin 0.4 (0.0-1.0) mg/dL AST 19 D (5-31) U/L ALT 17 (0-31) U/L Alkaline Phosphatase 136 H D (39-117) U/L Total Protein 8.4 H (6.5-8.0) g/dL Albumin 4.7 (3.5-5.0) g/dL Lipase 13 (8-78) U/L Beta HCG, Quant < 2 mIU/mL Urine Color YELLOW Urine Appearance HAZY Urine pH 6.5 (5.0-8.0) Ur Specific [place] 1.010 (1.005-1.025) Urine Protein 1+ H (NEG-TRACE) MG/DL Urine Glucose (UA) 100 H (NEG) MG/DL Urine Ketones NEG (NEG) MG/DL Urine Blood TRACE (NEG) Urine Nitrite NEG (NEG) Ur Leukocyte Esterase NEG (NEG) Urine RBC 5-9 H (0) /HPF Urine WBC 0-2 (0-4) /HPF Ur Squamous Epith Cells TRACE /LPF Amorphous Sediment 2+ /LPF Urine Bacteria TRACE /LPF COVID-19 (SHAAN) (Negative) COVID-19 Clin Com 03/01/21 03/01/21 Range/Units 10:10 10:10 WBC 14.4 H (4.8-10.8) X10*3/uL RBC 5.40 (4.20-5.50) X10*6/uL Hgb 14.9 (12.0-16.0) g/dl Hct 45.8 (37-47) % MCV 84.8 (80-98) fL MCH 27.6 (27.0-33.0) pg MCHC 32.5 (31.0-35.0) g/dl RDW 15.4 (11.0-16.0) % Plt Count 281 (160-400) X10*3/uL MPV 11.7 (9.4-12.3) fL Immature Gran % (Auto) 0.2 (0.0-0.4) % Neut % (Auto) 91.5 H (45-73) % Lymph % (Auto) 4.2 L (20-40) % [place] % (Auto) 3.8 (2-11) % Eos % (Auto) 0.1 (0-4) % Baso % (Auto) 0.2 (0-2) % Lymph # (Auto) 0.6 L (1.2-4.9) X10*3/uL [place] # (Auto) 0.6 (0.1-1.2) X10*3/uL Eos # (Auto) 0.0 (0.0-0.4) X10*3/uL Baso # (Auto) 0.0 (0.0-0.2) X10*3/uL Abs Immat Gran (auto) 0.03 (0.00-0.03) X10*3/uL Absolute Neuts (auto) 13.1 H (2.0-8.3) X10*3/uL Absolute Nucleated RBC 0.000 (0.0-0.012) X10*3/uL Nucleated RBC % (auto) 0.0 (0.0-0.2) /100WBC Smear Tech's Comments VERIFIED PT (9.9-13.0) SEC INR (0.9-1.1) Sodium (135-145) mmol/L Potassium (3.3-5.1) mmol/L Chloride (96-108) mmol/L Carbon Dioxide (22-29) mmol/L Anion Gap (12-20) BUN (9-16) mg/dL Creatinine (0.5-1.4) mg/dL Estim Creat Clear Calc Estimated GFR Random Glucose (60-115) mg/dL Calcium (8.4-10.2) mg/dL Magnesium (1.6-2.6) mg/dL Total Bilirubin (0.0-1.0) mg/dL AST (5-31) U/L ALT (0-31) U/L Alkaline Phosphatase (39-117) U/L Total Protein (6.5-8.0) g/dL Albumin (3.5-5.0) g/dL Lipase (8-78) U/L Beta HCG, Quant mIU/mL Urine Color Urine Appearance Urine pH (5.0-8.0) Ur Specific [place] (1.005-1.025) Urine Protein (NEG-TRACE) MG/DL Urine Glucose (UA) (NEG) MG/DL Urine Ketones (NEG) MG/DL Urine Blood (NEG) Urine Nitrite (NEG) Ur Leukocyte Esterase (NEG) Urine RBC (0) /HPF Urine WBC (0-4) /HPF Ur Squamous Epith Cells /LPF Amorphous Sediment /LPF Urine Bacteria /LPF COVID-19 (SHAAN) Negative (Negative) COVID-19 Clin Com See Note Imaging Data CT scan abdomen pelvis with IV contrast: Attestation: I personally reviewed and interpreted this imaging study as follows: Radiologist's impression: FINDINGS: LUNG BASES: The visualized lung bases are unremarkable. LIVER, GALLBLADDER, AND BILIARY TREE: The liver is normal in size, shape, and attenuation. No focal hepatic lesion or biliary ductal dilatation is present. The gallbladder is unremarkable with no evidence of radiopaque gallstones, gallbladder wall thickening, or obvious pericholecystic inflammatory changes. PANCREAS: Unremarkable. SPLEEN: Unremarkable. ADRENAL GLANDS: Unremarkable. KIDNEYS AND URETERS: The kidneys are normal in size, shape, and attenuation. No hydronephrosis, hydroureter, or calculi seen. No perinephric stranding. BLADDER: Unremarkable. GASTROINTESTINAL TRACT: There are postsurgical changes to the proximal sigmoid colon. There is wall thickening of the transverse colon and left colon. There is some edema or low-attenuation in the wall of the colon, stranding of the surrounding fat and prominent vasa recta. Appearance is suggestive of active colitis. No evidence of obstruction, perforation or abscess is seen. Small and large bowel is otherwise unremarkable. The appendix is unremarkable. ABDOMINAL WALL: There are postsurgical changes to the anterior abdominal wall in evidence of previous hernia repairs with mesh. No recurrent hernia is seen. LYMPH NODES: Unremarkable VASCULAR: Unremarkable. PELVIC VISCERA: Unremarkable. OSSEOUS STRUCTURES: There is degenerative disc disease at L5-S1. CT/CT abdomen pelvis w con IMPRESSION: Colitis of the transverse colon and left colon. Critical Care Time Critical Care Time Critical Care Time: Yes Total Critical Care Time: 60 Attestation: I personally attest to this time spent taking care of the patient Discharge Plan Discharge Clinical Impression: Crohn's disease of colon, Colitis, Intractable abdominal pain Patient Disposition: Admitted As Inpatient [facility] Past Medical History Attestation statement: The following information was validated with the patient. Medical History (Updated 03/01/21 @ 13:18 by Jatin Kaplan MD) Cancer Crohn's colitis Depression Hemorrhagic cyst of ovary HTN (hypertension) Hyperlipidemia Iron deficiency anemia Kidney stones Migraine Rheumatoid arthritis Surgical History Hx of colonoscopy (~12/2019) Hx of colonoscopy (~10/2018) Hx of endoscopy Social History Social History Alcohol intake: never Patient Tobacco Use Status: Never used Tobacco Use of substances other than those prescribed or required for medical reasons: No Advance Directives: No Advance Directives Information Provided: No Patient : No
--- NOTE | 2021-03-01 13:10 | P.HPHOSP_ITS ---
History of Present Illness Date of Service: 03/01/21 Chief Complaint: abd pain 50F presented with 4 days of abdominal pain, achy, worse with inspiration, associated with non bloody diarrhea, chills, without fever. patient has history of crohns, is on methotrexate and stelara. in 2019 she had multiple admissions, so far in 2020, she reports one flare in september, managed at home. in ed ct showed left and transverse colitis, she was given solumedrol, levaquin and flagyl Review of Systems Review of Systems: Constitutional: Chills Eyes: denies blurry vision ENT: denies sore throat CVS: denies chest pain Respiratory: Denies dyspnea GI: abdominal pain : denies dysuria MSK: denies neck pain Skin: denies rash Neuro: denies specific motor weakness Psych: denies suicidal ideation Endocrine: denies heat/cold intoleratnce Hematologic: denies easy bleeding Allergy: denies hives COUNTS INCLUDE 234 BEDS AT THE [facility] Medical History (Updated 03/01/21 @ 13:18 by Jatin Kaplan MD) Cancer Crohn's colitis Depression Hemorrhagic cyst of ovary HTN (hypertension) Hyperlipidemia Iron deficiency anemia Kidney stones Migraine Rheumatoid arthritis Surgical History Hx of colonoscopy (~12/2019) Hx of colonoscopy (~10/2018) Hx of endoscopy Social History Alcohol intake: never Patient Tobacco Use Status: Never used Tobacco Use of substances other than those prescribed or required for medical reasons: No Advance Directives: No Advance Directives Information Provided: No Patient : No Meds Allergies Allergy/AdvReac Type Severity Reaction Status Date / Time aspirin [ASA] Allergy Intermediate RASH Verified 11/17/20 15:07 azathioprine [From IMURAN] Allergy Intermediate PANCREATIC Verified 11/17/20 15:07 INFLAMMATION ibuprofen [IBUPROFEN] Allergy Intermediate TOLD NOT Verified 11/17/20 15:07 TO TAKE levofloxacin [From LEVAQUIN] Allergy Mild YEAST Verified 11/17/20 15:07 INFECTIONS Active Medications: Current Medications Generic Name Dose Route Start Last Admin Trade Name Freq PRN Reason Stop Dose Admin Albuterol Sulfate 2 puff 03/01/21 13:01 Albuterol Sulfate 90 Mcg 8 Gm Inhaler INHALE QID PRN Shortness Of Breath Amitriptyline HCl 50 mg 03/01/21 21:00 Amitriptyline Hcl 25 Mg Tablet PO BEDTIME [facility] Amlodipine Besylate 10 mg 03/01/21 13:15 Amlodipine Besylate 10 Mg Tablet PO DAILY [facility] Protocol Artificial Tears 1 drop 03/01/21 13:01 Artificial Tears 15 Ml Drops EYE-BOTH QID PRN Dry Eye(S) Buspirone HCl 5 mg 03/02/21 09:00 Buspirone Hcl 5 Mg Tablet PO DAILY [facility] Calcium Carbonate 750 mg 03/01/21 17:30 Calcium Carbonate 750 Mg Tab.Chew PO BIDPC [facility] Clonazepam 0.5 mg 03/02/21 09:00 Clonazepam 0.5 Mg Tablet PO DAILY [facility] Docusate Sodium 100 mg 03/01/21 13:01 Docusate Sodium 100 Mg Capsule PO BID PRN Constipation Doxazosin Mesylate 2 mg 03/01/21 21:00 Doxazosin Mesylate 2 Mg Tablet PO BEDTIME [facility] Protocol Ergocalciferol mcg 03/01/21 13:15 Ergocalciferol (Vitamin D2) 1,250 Mcg Capsule PO QWEEK [facility] Levofloxacin 750 mg in 150 mls @ 100 mls/hr 03/01/21 12:28 Levaquin IV 03/01/21 13:57 ONCE ONE Metronidazole 500 mg in 100 mls @ 100 mls/hr 03/01/21 12:28 Flagyl IV 03/01/21 13:27 ONCE ONE Montelukast Sodium 10 mg 03/01/21 21:00 Montelukast Sodium 10 Mg Tablet PO BEDTIME [facility] Multivitamins/Vitamin C 1 tab 03/01/21 13:15 Multivitamin Tablet PO DAILY [facility] Non-Formulary Medication 2 puff 03/01/21 21:00 Budesonide-Formoterol [Symbicort] PO BID [facility] Paroxetine HCl 40 mg 03/01/21 13:15 Paroxetine Hcl 40 Mg Tablet PO QAM [facility] Pharmacy Consult 1 each 03/01/21 10:05 Consult Rx Perform Med Rec MISCELLANE ONCE PRN Consult order Topiramate 100 mg 03/01/21 21:00 Topiramate 100 Mg Tablet PO BID [facility] Tramadol HCl 50 mg 03/01/21 13:01 Tramadol Hcl 50 Mg Tablet PO BID PRN Pain Zolpidem Tartrate 10 mg 03/01/21 21:00 Zolpidem Tartrate 5 Mg Tablet PO BEDTIME [facility] Home Medications Medication Instructions Recorded Confirmed Last Taken Type amitriptyline 2 tab PO BEDTIME 10/05/20 03/01/21 02/28/21 History amlodipine 1 tab PO QAM 10/05/20 03/01/21 02/28/21 History budesonide-formoterol [Symbicort] 2 puff PO BID 10/05/20 03/01/21 02/28/21 History calcium carbonate-vitamin D3 1 tab PO BID 10/05/20 03/01/21 02/28/21 History clonazepam 1 tab PO DAILY 10/05/20 03/01/21 02/28/21 History docusate sodium [DOK] 1 cap PO BID PRN 10/05/20 03/01/21 10/05/20 History doxazosin 1 tab PO BEDTIME 10/05/20 03/01/21 02/28/21 History ergocalciferol (vitamin D2) 1 cap PO QWEEK 10/05/20 03/01/21 02/21/21 History methotrexate sodium 10 tab PO QWEEK 10/05/20 03/01/21 02/20/21 History montelukast 1 tab PO BEDTIME 10/05/20 03/01/21 02/28/21 History multivitamin 1 tab PO QAM 10/05/20 03/01/21 02/28/21 History paroxetine HCl 1 tab PO QAM 10/05/20 03/01/21 02/28/21 History topiramate 1 tab PO BID 10/05/20 03/01/21 02/28/21 History tramadol 1 tab PO BID PRN 10/05/20 03/01/21 10/05/20 History zolpidem 1 tab PO BEDTIME 10/05/20 03/01/21 02/28/21 History albuterol sulfate 2 puff PO QID PRN 03/01/21 03/01/21 Unknown History buspirone 1 tab PO DAILY 03/01/21 03/01/21 02/28/21 History calcium carbonate [Tums E-X] 600 mg PO BIDPC 03/01/21 03/01/21 02/28/21 History lidocaine 1 patch TOPICAL DAILY 03/01/21 03/01/21 02/28/21 History polyvinyl alcohol [Artificial 1 drp OPHTHALMIC (EYE) QID PRN 03/01/21 03/01/21 Unknown History Tears (polyvin alc)] Physical Exam Vital Signs and Narrative: Vital Signs: Last Vital Signs Temp 98.3 F 03/01/21 11:21 Pulse 71 03/01/21 11:21 Resp 16 03/01/21 11:21 BP 145/65 H 03/01/21 11:21 Pulse Ox 100 03/01/21 11:21 Body Mass Index 34.1 General: no acute distress HEENT: atraumatic Neck: normal to visual inspection CVS: S1, S2, RRR Resp: CTA bilateral Chest: non tender GI: soft, diffusely tender, non distended : no CVA tenderness Skin: no rashes Extremities: no edema Neuro: Oriented X3, grossly intact Psych: cooperative Results Labs CBC and Chem 7: 03/01/21 10:10 03/01/21 10:09 Labs: Laboratory Results - last 24 hr 03/01/21 03/01/21 03/01/21 10:01 10:09 10:09 MCV MCH MCHC RDW Plt Count MPV Immature Gran % (Auto) Neut % (Auto) Lymph % (Auto) [place] % (Auto) Eos % (Auto) Baso % (Auto) Lymph # (Auto) [place] # (Auto) Eos # (Auto) Baso # (Auto) Abs Immat Gran (auto) Absolute Neuts (auto) Absolute Nucleated RBC Nucleated RBC % (auto) Smear Tech's Comments PT 11.3 INR 1.0 Anion Gap 17 Estim Creat Clear Calc 75.4 Estimated GFR > 60 Random Glucose 138 H D Calcium 9.9 Magnesium 2.2 Total Bilirubin 0.4 AST 19 D ALT 17 Alkaline Phosphatase 136 H D Total Protein 8.4 H Albumin 4.7 Lipase 13 Beta HCG, Quant < 2 Urine Color YELLOW Urine Appearance HAZY Urine pH 6.5 Ur Specific Byron 1.010 Urine Protein 1+ H Urine Glucose (UA) 100 H Urine Ketones NEG Urine Blood TRACE Urine Nitrite NEG Ur Leukocyte Esterase NEG Urine RBC 5-9 H Urine WBC 0-2 Ur Squamous Epith Cells TRACE Amorphous Sediment 2+ Urine Bacteria TRACE COVID-19 (SHAAN) COVID-19 Clin Com 03/01/21 03/01/21 10:10 10:10 MCV 84.8 MCH 27.6 MCHC 32.5 RDW 15.4 Plt Count 281 MPV 11.7 Immature Gran % (Auto) 0.2 Neut % (Auto) 91.5 H Lymph % (Auto) 4.2 L [place] % (Auto) 3.8 Eos % (Auto) 0.1 Baso % (Auto) 0.2 Lymph # (Auto) 0.6 L [place] # (Auto) 0.6 Eos # (Auto) 0.0 Baso # (Auto) 0.0 Abs Immat Gran (auto) 0.03 Absolute Neuts (auto) 13.1 H Absolute Nucleated RBC 0.000 Nucleated RBC % (auto) 0.0 Smear Tech's Comments VERIFIED PT INR Anion Gap Estim Creat Clear Calc Estimated GFR Random Glucose Calcium Magnesium Total Bilirubin AST ALT Alkaline Phosphatase Total Protein Albumin Lipase Beta HCG, Quant Urine Color Urine Appearance Urine pH Ur Specific Byron Urine Protein Urine Glucose (UA) Urine Ketones Urine Blood Urine Nitrite Ur Leukocyte Esterase Urine RBC Urine WBC Ur Squamous Epith Cells Amorphous Sediment Urine Bacteria COVID-19 (SHAAN) Negative COVID-19 Clin Com See Note Imaging Radiologist's Impressions: Impressions Abdomen/Pelvis CT 03/01/21 10:04 IMPRESSION: Colitis of the transverse colon and left colon. Assessment and Plan (1) Crohn's colitis: Status: Acute 50F presented with abdominal pain and diarrhea crohns flare steroids, gi eval, pain control check cdif empiric antibiotics, ivf asthma stable inhalers htn doxazosin amlodipine depression antidepressants Quality Stroke Does the patient have a stroke diagnosis?: No VTE Prior VTE?: No VTE Risk Level:: Medical - moderate - high VTE Device Contraindication: Treatment Not Indicated VTE Drug Contraindication: N/A - Med Ordered
[2021-03-01] MEDS: HYDROmorphone HCl 0.5 MG/0.5 ML SYRINGE IVPUSH ×2 (13:24→18:07)
[2021-03-01] MEDS: levoFLOXacin/D5W 750 MG/150 ML PIGGYBACK 100 MG IV (13:24)
[2021-03-01 13:51] LABS: Lactic Acid 0.8 mmol/L (0.5-2.0)
--- NOTE | 2021-03-01 14:21 | PC.NURSE ---
report given to S3 RN. pt aware of plan to go upstairs. family at bedside. pt reports improved pain. she is resting quietly.
[2021-03-01] MEDS: Lactated Ringers 1,000 ML 80 ML IVCONT (14:56)
[2021-03-01] MEDS: traMADoL HCL 50 MG TABLET PO (15:01)
[2021-03-01] MEDS: PARoxetine HCL 40 MG TABLET PO (15:01)
[2021-03-01] MEDS: metroNIDAZOLE/NS 500 MG/100 ML PIGGYBACK 100 MG IV ×2 (15:01→20:01)
[2021-03-01] MEDS: 0.9 % Sodium Chloride Flush 3 ML SYRINGE IVFLUSH (15:02)
[2021-03-01 15:08] LABS: CDiff Gene PCR NEGATIVE (Negative)
--- NOTE | 2021-03-01 16:23 | P.CNGI_ITS ---
Assessment and Plan (1) Crohn's colitis: Status: Resolved <Libby Palafox MD - Last Filed: 03/18/21 15:47> (2) Generalized abdominal pain: Status: Deleted <Libby Palafox MD - Last Filed: 03/18/21 15:47> 50 YF with RA, GERD, asthma, sleep apnea, iron def anemia, intermittent compliance with follow up appointments, anxiety and depression with Crohn's disease involving the left colon (and suspected jejunal involvement). Pt was diagnosed with Crohn's colitis 20 yrs ago and is status post sigmoid colectomy with colostomy in 2010, reversal of colostomy in 2011. She has failed treatment with multiple medications in the past due to lack of efficacy or side effects including Remicade, Humira, Cimzia, Entyvio, azathioprine caused pancreatitis. She recalls she had the best response with Humira which was stopped due to concern for MS. She was seen by Neurology at [facility] and was advised a repeat MRI scan of the brain. Pt was re-referred to [facility] Neurology and GI RN was informed that she has been discharged from Neurology due to multiple no-shows. She has been on Stelara every 8 weeks which had worked well for her in the past. Dose of Stelara was increased to every 4 weeks a year ago due to breakthrough symptoms and low trough levels. She has been treated with Prednisone intermittently for CD flares. Colonoscopy in 01/18/20 showed patchy erythema throughout the colon - surveillance biopsies were obtained. Focal area of ulcerations with a tight stricture at 18 to 20 cms and unable to pass the colonoscope through the stricture. Stricture was dilated with a 12mm (26 F) CRE balloon and colonoscope was then advanced into the colon. Patchy erythema with focal ulcers in the distal rectum. Inflammation in the recto- sigmoid significantly improved from last year - severe left sided colitis with minimal inflammation in the remaining colon. Biopsies were negative for CMV. Patient was seen at [facility] General IBD clinic for a 2nd opinion regarding treat ment options and addition of methotrexate was advised. Patient was started on methotrexate 25 mg intramuscularly every week on 04/13/19 in the Oncology clinic. She was switched to p.o. methotrexate 50 mg once a week in Sep, 2019. She is also on budesonide 9 mg once daily. She continues to have intermittent flares requiring IV steroids. Pt was [place] [facility] [place] and dose of MTX was increased to 25 mg PO (10 tab) every week from 5 tablets daily in March 2020. Pt states she is taking MTX 10 mg every week at present. Last Stelara injection was on 01/30/2021 - her next injection was due on 2020. Patient admitted with worsening abdominal pain, diarrhea and hematochezia. She missed Stelara injection scheduled on 02/27/21 since she was having abdominal pain. RECOMMENDATIONS: 1. Agree with IV pain medications and IV steroids. 2. Switch to PO once her abdominal pain improves 3. I will reschedule her Stelara injection for next week - once she is discharged from the hospital <Libby Palafox MD - Last Filed: 03/18/21 15:47> History of Present Illness Data of Consult Service Date: 03/01/21 <Libby Palafox MD - Last Filed: 03/18/21 15:47> Requesting physician: Jatin Kaplan <Libby Palafox MD - Last Filed: 03/18/21 15:47> Primary Care Provider: Leesa Wasserman MD <Libby Palafox MD - Last Filed: 03/18/21 15:47> HPI Reason for consult: Crohn's disease flare <Libby Palafox MD - Last Filed: 03/18/21 15:47> 50 YF with known hx of Crohn's colitis seen at [facility] ED today with upper abdominal pain: HPI narrative: 50-year-old female with a past medical history of Crohn's disease long-term systemic steroid user on Stelara injection last on 12/05/2020 who is status post sigmoid colectomy with colostomy in 2010, reversible of colostomy in 2011, kidney stones, rheumatoid arthritis, iron deficiency anemia, cancer, migraine headaches, hypertension, hyperlipidemia, and depression presenting to the ED via EMS with complaints of severe upper abdominal pain for the past 4 days worse since 19:00 last night. She is being followed by GI Dr. Palafox and she last seen her on 11/17/2020 from reviewing her note it appears that patient has been suffering from Crohn's colitis for 20 years. She has failed multiple medications in the past due to lack of efficacy or side effects including Remicade, Humira, Cimzia, Entyvio, azathioprine caused pancreatitis. she had best response with Humira although was stopped due to current for MS. She was seen by Neurology at [facility] and advised for repeat MRI scan of her brain although the GI RN nurse was informed that she was discharged from [facility] Neurology due to multiple no shows. She is currently on Stelara injection every 8 weeks which has worked well for her. She is treated intermittently with prednisone for Crohn's flares. colonoscopy on 01/18/2020 revealed patchy erythema throughout the colon therefore surveillance biopsies were obtained. Focal area of ulcerations with a tight stricture at 18 to 20 cms and unable to pass the colonoscope through the stricture. Stricture was dilated with a 12mm (26 F) CRE balloon and colonoscope was then advanced into the colon. Patchy erythema with focal ulcers in the distal rectum. Inflammation in the recto-sigmoid significantly improved from last year - severe left sided colitis with minimal inflammation in the remaining colon. Biopsies were negative for CMV. Patient was seen at [facility] IBD clinic for a 2nd opinion regarding treatment options and addition of methotrexate was advised. Patient was started on methotrexate 25 mg intramuscularly every week on 04/13/19 in the Oncology clinic. She was switched to p.o. methotrexate 50 mg once a week in Sep, 2019. She is also on budesonide 9 mg once daily. She continues to have intermittent flares requiring IV steroids. Pt was seen at [facility] [place]20 and dose of MTX was increased to 25 mg PO every week . Pt was started on IV steroids and admitted for further management. Pt was last hospitalized at [facility] for Crohn's disease flare from 04/24/20 to 04/28/20, Patient complain of upper abdominal/LUQ pain for the past 4 days which became worse today. Has 3 BMs yesterday and noted worsening diarrhea followed by [facility] She also notes chills and nausea. CHRONIC ILLNESSES: RA, GERD, asthma, sleep apnea, iron def anemia, anxiety and depression LABS IN [facility]:04/28/20 Reviewed H&H of 11.2 and 36.7, CHEM PANEL AND LFTS. Improvement in LFTs with AST of 32 (decreased from 93) and ALT of 70 (decreased from 190) , alkaline phosphatase 97, FERRITIN 40 CRP 2.20 (increased from 0.71 on 03/24/20) 08/12 STOOL CALPROTECTIN WAS 714 (DECREASED FROM > 2000 IN 12/11) 01/11 T spot was negative. IMAGING STUDIES: 03/01/[address] SCAN SHOWED: GASTROINTESTINAL TRACT: There are postsurgical changes to the proximal sigmoid colon. There is wall thickening of the transverse colon and left colon. There is some edema or low-attenuation in the wall of the colon, stranding of the surrounding fat and prominent vasa recta. Appearance is suggestive of active colitis. No evidence of obstruction, perforation or abscess is seen. Small and large bowel is otherwise unremarkable. The appendix is unremarkable. ABDOMINAL WALL: There are postsurgical changes to the anterior abdominal wall in evidence of previous hernia repairs with mesh. No recurrent hernia is seen. ENDOSCOPIC STUDIES: 01/18/20 COLONOSCOPY SHOWED: One small rectal polyp removed. Patchy erythema throughout the colon - surveillance biopsies were obtained. Focal area of ulcerations with a tight stricture at 18 to 20 cms and unable to pass the colonoscope through the stricture. Stricture was dilated with a 12mm ( 26 F) CRE balloon and colonoscope was then advanced into the colon. Patchy erythema with focal ulcers in the distal rectum. Inflammation in the recto-sigmoid significantly improved from last year - biopsies were obtained for histology. Plan: Await pathology results Continue present medications Patient has an appointment on 02/10/20 in the GI Clinic with Libby Palafox M.D.- Repeat Colonoscopy interval based on path results in 1-2 years if no dysplasia on biopsies. Above findings were reviewed with the patient. BIOPSIES SHOWED: A. Colon, cecum, biopsies: Colonic mucosa within normal limits. B. Colon, 80-90 cm, biopsies: Colonic mucosa within normal limits. C. Colon, 60-70 cm, biopsies: Mild, focal active chronic colitis; negative for dysplasia. D. Colon, 40-50 cm, biopsies: Mild chronic, inactive colitis; focal granuloma; negative for dysplasia. E. Colon, 20 distorted E cm, biopsies: Moderate active chronic colitis; negative for dysplasia. F. Colon, stricture, biopsies: Severe active chronic colitis with regenerative changes; granulation tissue consistent with ulcer; negative for dy splasia/malignancy. G. Rectum, polyp, polypectomy: Hyperplastic/inflammatory polyp; negative for dys plasia. H. Colon, 10 cm, biopsies: Severe active chronic colitis with regenerative changes; granulation tissue consistent with ulcer; negative for dysplasia / malignancy. IBD Summary: Year of diagnosis: Crohn's disease diagnosed in [address] scan. Disease Extent: Colon Past treatments: Azathioprine caused pancreatitis, She was initially treated with Remicade which did not work and she was switched to Humira. Treated with Entyvio for a few months which was stopped due to side effects. In 09/2016, she was treated with Stelara every 8 weeks which worked well for her. She has been treated with Prednisone intermittently. Previous Endoscopic Evaluations: 01/18/20 COLONOSCOPY SHOWED: One small hyperplastic rectal polyp removed. Patchy erythema throughout the colon - surveillance biopsies were obtained. Focal area of ulcerations with a tight stricture at 18 to 20 cms and unable to pass the colonoscope through the stricture. Stricture was dilated with a 12mm (26 F) CRE balloon and colonoscope was then advanced into the colon. Patchy erythema with focal ulcers in the distal rectum. Inflammation in the recto-sigmoid significantly improved from last year - biopsies were obtained for histology. EGD and colonoscopy on 08/20/2016. EGD showed diffuse whittish plaques in the esophagus and diffuse erythema of the mucosa in the cardia. Biopsies were obtained. Colonoscopy showed normal mucosa in the right colon and patchy erythema and erosions in the left colon. Diffuse erythema and erosions were seen involving most of the rectum. Past Surgeries: She underwent Colon surgery (? removal of sigmoid colon) with colostomy at [facility] in 2010. She had reversal of colostomy in Dec, 2011. She developed a peristomal hernia. Associated Diagnosis: RA, GERD, asthma,sleep apnea, iron def anemia, anxiety and depression <Libby Palafox MD - Last Filed: 03/18/21 15:47> Review of Systems Constitutional: Constitutional: Reports fatigue, Denies fever(s), Denies headache(s) and Denies weight loss <Libby Palafox MD - Last Filed: 03/18/21 15:47> Eyes: Eyes: Denies eye discharge and Denies irritation <Libby Palafox MD - Last Filed: 03/18/21 15:47> ENT: Reports Normal hearing present, Denies dysphagia, Denies dizziness and Denies headache(s) <Libby Palafox MD - Last Filed: 03/18/21 15:47> Cardiovascular: Cardiovascular: Denies chest pain, Denies leg edema, Reports dyspnea and Denies dyspnea on exertion <Libby Palafox MD - Last Filed: 03/18/21 15:47> Respiratory: Respiratory: Reports cough, Reports dyspnea and Denies dyspnea on exertion <Libby Palafox MD - Last Filed: 03/18/21 15:47> Gastrointestinal: Gastrointestinal: Reports abdominal pain, Reports hematochezia, Denies change in bowel habits, Denies dysphagia, Denies heartburn and Reports diarrhea <Libby Palafox MD - Last Filed: 03/18/21 15:47> Genitourinary: Genitourinary: Denies difficulty voiding and Denies dysuria <Libby Palafox MD - Last Filed: 03/18/21 15:47> Musculoskeletal: Musculoskeletal: Denies back pain and Reports arthralgias <Libby Palafox MD - Last Filed: 03/18/21 15:47> Integumentary/Breasts: Skin/Breast: Denies pruritus, Denies rash and Denies jaundice <Libby Palafox MD - Last Filed: 03/18/21 15:47> Neurologic: Reports Normal hearing present, Denies Abnormal speech present, Denies dizziness, Denies headache(s) and Denies seizure-like activity <Libby Palafox MD - Last Filed: 03/18/21 15:47> Psychiatric: Psychiatric: Denies anxiety, Reports depression and Denies panic attacks <Libby Palafox MD - Last Filed: 03/18/21 15:47> Endocrine: Endocrine: Denies cold intolerance, Reports fatigue, Denies flushing and Denies heat intolerance <Libby Palafox MD - Last Filed: 03/18/21 15:47> Hematologic/Lymphatic: Hematologic/Lymphatic: Denies easy bleeding and Denies easy bruising <Libby Palafox MD - Last Filed: 03/18/21 15:47> PMFSH Past Medical History Medical History: Medical History (Updated 03/17/21 @ 00:01 by Background Jennifer) Cancer Crohn's colitis Depression Hemorrhagic cyst of ovary HTN (hypertension) Hyperlipidemia Iron deficiency anemia Kidney stones Migraine Recurrent major depression-severe Rheumatoid arthritis <Libby Palafox MD - Last Filed: 03/18/21 15:47> Surgical History Surgical History: Surgical History Hx of colonoscopy (~12/2019) Hx of colonoscopy (~10/2018) Hx of endoscopy <Libby Palafox MD - Last Filed: 03/18/21 15:47> Social History Social History: Social History Household Members: None Housing: Apartment Do you presently have visiting nurse or other home services: No Alcohol intake: never Patient Tobacco Use Status: Never used Tobacco service: No Current occupational status: disabled Sexual orientation: Straight/Heterosexual <Libby Palafox MD - Last Filed: 03/18/21 15:47> Meds Allergies/Adverse reactions: Allergies Allergy/AdvReac Type Severity Reaction Status Date / Time aspirin [ASA] Allergy Intermediate RASH Verified 11/17/20 15:07 azathioprine [From IMURAN] Allergy Intermediate PANCREATIC Verified 11/17/20 15:07 INFLAMMATION ibuprofen [IBUPROFEN] Allergy Intermediate TOLD NOT Verified 11/17/20 15:07 TO TAKE levofloxacin [From LEVAQUIN] Allergy Mild YEAST Verified 11/17/20 15:07 INFECTIONS <Libby Palafox MD - Last Filed: 03/18/21 15:47> Active Medications: Current Medications Generic Name Dose Route Start Last Admin Trade Name Freq PRN Reason Stop Dose Admin Acetaminophen 650 mg 03/01/21 13:04 Acetaminophen 325 Mg Tablet PO Q6H PRN Pain, Mild (Pain Scale 1-3) Albuterol Sulfate 2 puff 03/01/21 13:01 Albuterol Sulfate 90 Mcg 8 Gm Inhaler INHALE QID PRN Shortness Of Breath Amitriptyline HCl 50 mg 03/01/21 21:00 Amitriptyline Hcl 25 Mg Tablet PO BEDTIME JUANCHO Amlodipine Besylate 10 mg 03/01/21 13:15 03/01/21 15:04 Amlodipine Besylate 10 Mg Tablet PO Not Given DAILY JUANCHO Protocol Artificial Tears 1 drop 03/01/21 13:01 Artificial Tears 15 Ml Drops EYE-BOTH QID PRN Dry Eye(S) Buspirone HCl 5 mg 03/02/21 09:00 Buspirone Hcl 5 Mg Tablet PO DAILY JUANCHO Calcium Carbonate 750 mg 03/01/21 17:30 Calcium Carbonate 750 Mg Tab.Chew PO BIDPC [facility] Clonazepam 0.5 mg 03/02/21 09:00 Clonazepam 0.5 Mg Tablet PO DAILY [facility] Docusate Sodium 100 mg 03/01/21 13:01 Docusate Sodium 100 Mg Capsule PO BID PRN Constipation Doxazosin Mesylate 2 mg 03/01/21 21:00 Doxazosin Mesylate 2 Mg Tablet PO BEDTIME [facility] Protocol Ergocalciferol 1,250 mcg 03/07/21 09:00 Ergocalciferol (Vitamin D2) 1,250 Mcg Capsule PO We@0900 [facility] Fluticasone/Vilanterol 1 puff 03/02/21 08:00 Fluticasone/Vilanterol 200/25 Blst.W.Dev INHALE RDAILY [facility] Hydromorphone HCl 0.5 mg 03/01/21 13:04 Hydromorphone Hcl 0.5 Mg/0.5 Ml Syringe IVPUSH Q4H PRN Pain, Severe (Pain Scale 7-10) Lactated Ringer's 1,000 mls @ 80 mls/hr 03/01/21 13:30 03/01/21 14:56 Lr IVCONT 80 mls/hr .[id number] [facility] Administration Metronidazole 500 mg in 100 mls @ 100 mls/hr 03/01/21 13:30 03/01/21 15:02 Flagyl IV Not Given Q8H [facility] Levofloxacin 500 mg in 100 mls @ 100 mls/hr 03/02/21 12:00 Levaquin IV Q24H [facility] Methylprednisolone Sodium Succinate 40 mg 03/02/21 09:00 Methylprednisolone Sod Succ 40 Mg/Ml Vial IVPUSH DAILY [facility] Montelukast Sodium 10 mg 03/01/21 21:00 Montelukast Sodium 10 Mg Tablet PO BEDTIME [facility] Multivitamins/Vitamin C 1 tab 03/01/21 13:15 03/01/21 15:04 Multivitamin Tablet PO Not Given DAILY [facility] Ondansetron HCl 4 mg 03/01/21 15:16 Ondansetron Hcl 4 Mg/2 Ml Vial IVPUSH Q8H PRN nausea Paroxetine HCl 40 mg 03/01/21 13:15 03/01/21 15:01 Paroxetine Hcl 40 Mg Tablet PO 40 mg DAILY [facility] Administration Pharmacy Consult 1 each 03/01/21 10:05 Consult Rx Perform Med Rec MISCELLANE ONCE PRN Consult order Rivaroxaban 10 mg 03/02/21 09:00 Rivaroxaban 10 Mg Tablet PO DAILY [facility] Sodium Chloride 3 ml 03/01/21 16:00 03/01/21 15:02 0.9 % Sodium Chloride Flush 3 Ml Syringe IVFLUSH 3 ml QSHIFT [facility] Administration Topiramate 100 mg 03/01/21 21:00 Topiramate 100 Mg Tablet PO BID [facility] Tramadol HCl 50 mg 03/01/21 13:01 03/01/21 15:01 Tramadol Hcl 50 Mg Tablet PO 50 mg BID PRN Administration Pain Zolpidem Tartrate 5 mg 03/01/21 21:00 Zolpidem Tartrate 5 Mg Tablet PO BEDTIME [facility] <Libby Palafox MD - Last Filed: 03/18/21 15:47> Home medications: Home Medications Medication Instructions Recorded Confirmed Last Taken Type amitriptyline 2 tab PO BEDTIME 10/05/20 03/01/21 02/28/21 History budesonide-formoterol [Symbicort] 2 puff PO BID 10/05/20 03/01/21 02/28/21 History calcium carbonate-vitamin D3 1 tab PO BID 10/05/20 03/01/21 02/28/21 History docusate sodium [DOK] 1 cap PO BID PRN 10/05/20 03/01/21 10/05/20 History ergocalciferol (vitamin D2) 1 cap PO QWEEK 10/05/20 03/01/21 02/21/21 History methotrexate sodium 10 tab PO QWEEK 10/05/20 03/01/21 02/20/21 History montelukast 1 tab PO BEDTIME 10/05/20 03/01/21 02/28/21 History multivitamin 1 tab PO QAM 10/05/20 03/01/21 02/28/21 History topiramate 1 tab PO BID 10/05/20 03/01/21 02/28/21 History zolpidem 1 tab PO BEDTIME 10/05/20 03/01/21 02/28/21 History albuterol sulfate 2 puff PO QID PRN 03/01/21 03/01/21 Unknown History buspirone 1 tab PO DAILY 03/01/21 03/01/21 02/28/21 History calcium carbonate [Tums E-X] 600 mg PO BIDPC 03/01/21 03/01/21 02/28/21 History polyvinyl alcohol [Artificial 1 drp OPHTHALMIC (EYE) QID PRN 03/01/21 03/01/21 Unknown History Tears (polyvin alc)] <Libby Palafox MD - Last Filed: 03/18/21 15:47> Physical Exam Vital Signs: Vital Signs: Last Vital Signs Temp 98.1 F 03/01/21 15:23 Pulse 60 03/01/21 15:23 Resp 18 03/01/21 15:23 BP 128/76 03/01/21 15:23 Pulse Ox 98 03/01/21 15:23 Body Mass Index 34.1 <Libby Palafox MD - Last Filed: 03/18/21 15:47> Const: General: healthy appearing and no acute distress <Libby Palafox MD - Last Filed: 03/18/21 15:47> Nutritional Appearance: average body habitus <Libby Palafox MD - Last Filed: 03/18/21 15:47> Orientation/consciousness: patient oriented x3 <Libby Palafox MD - Last Filed: 03/18/21 15:47> Limitations: no limitations <Libby Palafox MD - Last Filed: 03/18/21 15:47> HENMT: Head: Yes normal to inspection <Libby Palafox MD - Last Filed: 03/18/21 15:47> Ears: hearing grossly normal bilaterally <Libby Palafox MD - Last Filed: 03/18/21 15:47> Mouth: Normal oral and palatal mucosa present <Libby Palafox MD - Last Filed: 03/18/21 15:47> Eyes: Sclerae: sclerae normal <Libby Plaafox MD - Last Filed: 03/18/21 15:47> Pupils: Equal, round and reactive pupils present <Libby Palafox MD - Last Filed: 03/18/21 15:47> Neck: Neck: Yes normal visual inspection <MD Fabian Nguyễn Last Filed: 03/18/21 15:47> Chest: Chest palpation & inspection: normal inspection of the chest <Libby Palafox MD - Last Filed: 03/18/21 15:47> Resp: Effort & Inspection: normal respiratory effort <Libby Palafox MD - Last Filed: 03/18/21 15:47> Auscultation: clear to auscultation bilaterally <Libby Palafox MD - Last Filed: 03/18/21 15:47> Cardio: Palpation: normal PMI <Libby Palafox MD - Last Filed: 03/18/21 15:47> Rate: regular rate <Libby Palafox MD - Last Filed: 03/18/21 15:47> Rhythm: regular rhythm <Libby Palafox MD - Last Filed: 03/18/21 15:47> Heart sounds: S1 normal heart sound present, S2 normal heart sound present and no murmurs <Libby Palafox MD - Last Filed: 03/18/21 15:47> GI: Palpation (GI): Soft to palpation, Tenderness to palpation present (GI) (Mild generalized tenderness - most marked in the epigastric and LUQ) and No hepatosplenomegaly present <Libby Palafox MD - Last Filed: 03/18/21 15:47> Auscultation: normal bowel sounds <Libby Palafox MD - Last Filed: 03/18/21 15:47> Rectal Exam - Female: deferred <Libby Palafox MD - Last Filed: 03/18/21 15:47> Skin: General skin exam: no rashes or lesions noted <Libby Palafox MD - Last Filed: 03/18/21 15:47> Neuro: General: patient oriented x3, gait normal and moves all extremities <Libby Palafox MD - Last Filed: 03/18/21 15:47> Cranial nerves: Yes Equal, round and reactive pupils present and Yes Normal hearing present <Libby Palafox MD - Last Filed: 03/18/21 15:47> Speech: No Abnormal speech present <Libby Palafox MD - Last Filed: 03/18/21 15:47> Psych: Appearance: grossly normal <Libby Palafox MD - Last Filed: 03/18/21 15:47> Mental Status: mental status grossly normal <Libby Palafox MD - Last Filed: 03/18/21 15:47> Results Labs CBC & Chem 7: : 03/07/21 05:41 03/08/21 05:52 <Libby Palafox MD - Last Filed: 03/18/21 15:47> Labs: Short CBC 03/01/21 Range/Units 10:10 WBC 14.4 H (4.8-10.8) X10*3/uL Hgb 14.9 (12.0-16.0) g/dl Hct 45.8 (37-47) % Plt Count 281 (160-400) X10*3/uL BMP 03/01/21 10:09 Sodium 141 Potassium 3.6 Chloride 105 Carbon Dioxide 23 BUN 16 Creatinine 0.90 Calcium 9.9 Liver Function 03/01/21 Range/Units 10:09 Total Bilirubin 0.4 (0.0-1.0) mg/dL AST 19 D (5-31) U/L ALT 17 (0-31) U/L Alkaline Phosphatase 136 H D (39-117) U/L Albumin 4.7 (3.5-5.0) g/dL Urine 03/01/21 Range/Units 10:01 Urine Color YELLOW Urine Appearance HAZY Urine pH 6.5 (5.0-8.0) Ur Specific [place] 1.010 (1.005-1.025) Urine Protein 1+ H (NEG-TRACE) MG/DL Urine Glucose (UA) 100 H (NEG) MG/DL <Libby Palafox MD - Last Filed: 03/18/21 15:47> Procedures Date of Service Date of Service: 03/01/21 <Libby Palafox MD - Last Filed: 03/18/21 15:47>
[2021-03-01] MEDS: Calcium Carbonate 750 MG TAB.CHEW PO (17:33)
[2021-03-01] MEDS: Doxazosin Mesylate 2 MG TABLET PO (20:00)
[2021-03-01] MEDS: Zolpidem Tartrate 5 MG TABLET PO (20:00)
[2021-03-01] MEDS: Amitriptyline HCl 25 MG TABLET 50 MG PO (20:00)
[2021-03-01] MEDS: Montelukast Sodium 10 MG TABLET PO (20:00)
[2021-03-01] MEDS: Topiramate 100 MG TABLET PO (20:01)
[2021-03-02] VITALS (9 sets, daily range): BP systolic 108–145; BP diastolic 61–87; PULSE 61–79; RESP 14–20; TEMP 36.2–37.1; O2SAT 94–99
[2021-03-02] MEDS: Lactated Ringers 1,000 ML 80 ML IVCONT ×2 (03:58→16:38)
[2021-03-02] MEDS: metroNIDAZOLE/NS 500 MG/100 ML PIGGYBACK 100 MG IV ×3 (03:58→20:40)
[2021-03-02] MEDS: HYDROmorphone HCl 0.5 MG/0.5 ML SYRINGE IVPUSH ×5 (04:42→23:49)
[2021-03-02 06:04] LABS: Hematocrit 37.2 % (37-47); Mean Corpuscular HGB Conc 32.3 g/dl (31.0-35.0); Mean Corpuscular Hemoglobin 27.6 pg (27.0-33.0); Mean Corpuscular Volume 85.5 fL (80-98); Mean Platelet Volume 11.8 fL (9.4-12.3); Platelet Count 234 X10*3/uL (160-400); Red Blood Count 4.35 X10*6/uL (4.20-5.50); Red Cell Distribution Width 15.3 % (11.0-16.0); White Blood Count 10.3 X10*3/uL (4.8-10.8)
[2021-03-02 06:24] LABS: C Reactive Protein 2.87 mg/dL (< or = 0.50)
[2021-03-02 06:26] LABS: Anion Gap 13 (12-20); Blood Urea Nitrogen 12 mg/dL (9-16); Carbon Dioxide 22 mmol/L (22-29); Chloride 108 mmol/L (96-108); Creatinine Clr Calc Pharmacy 85.9; Estimated Glomerular Filt Rate > 60; Glucose Random 108 mg/dL (60-115); Potassium 3.8 mmol/L (3.3-5.1); Sodium 139 mmol/L (135-145)
[2021-03-02] MEDS: Fluticasone/Vilanterol 200/25 BLST.W.DEV 1 PUFF INHALE (08:14)
[2021-03-02] MEDS: Multivitamin TABLET 1 TAB PO (09:24)
[2021-03-02] MEDS: Calcium Carbonate 750 MG TAB.CHEW PO ×2 (09:24→17:50)
[2021-03-02] MEDS: methylPREDNISolone Sod Succ 40 MG/ML VIAL IVPUSH (09:24)
[2021-03-02] MEDS: Rivaroxaban 10 MG TABLET PO (09:25)
[2021-03-02] MEDS: Topiramate 100 MG TABLET PO ×2 (09:25→20:39)
[2021-03-02] MEDS: clonazePAM 0.5 MG TABLET PO (09:25)
[2021-03-02] MEDS: traMADoL HCL 50 MG TABLET PO (09:25)
[2021-03-02] MEDS: PARoxetine HCL 40 MG TABLET PO (09:25)
[2021-03-02] MEDS: busPIRone HCl 5 MG TABLET PO (09:25)
[2021-03-02] MEDS: amLODIPine Besylate 10 MG TABLET PO (09:25)
--- NOTE | 2021-03-02 09:40 | HO.PM.IMPN ---
Subjective Subjective Date of Service: 03/02/21 Interval History: abd pain stiill present Cardiovascular Cardiovascular: Reports no additional cardiovascular complaints Respiratory Respiratory: Reports no additional respiratory complaints Physical Exam Vital Signs: Vital Signs: Last Vital Signs Temp 98.7 F 03/02/21 07:46 Pulse 65 03/02/21 08:15 Resp 18 03/02/21 07:46 BP 119/67 03/02/21 07:46 Pulse Ox 98 03/02/21 07:46 Body Mass Index 34.1 General: AO X 3, no acute distress Resp: CTA bilateral CVS: S1,S2,RRR GI: soft, tender, non distended Neuro: motor grossly intact Psych: appropriate affect Objective Data Current Medications Generic Name Dose Route Start Last Admin Trade Name Freq PRN Reason Stop Dose Admin Acetaminophen 650 mg 03/01/21 13:04 Acetaminophen 325 Mg Tablet PO Q6H PRN Pain, Mild (Pain Scale 1-3) Albuterol Sulfate 2 puff 03/01/21 13:01 Albuterol Sulfate 90 Mcg 8 Gm Inhaler INHALE QID PRN Shortness Of Breath Amitriptyline HCl 50 mg 03/01/21 21:00 03/01/21 20:00 Amitriptyline Hcl 25 Mg Tablet PO 50 mg BEDTIME JUANCHO Administration Amlodipine Besylate 10 mg 03/01/21 13:15 03/02/21 09:25 Amlodipine Besylate 10 Mg Tablet PO 10 mg DAILY JUANCHO Administration Protocol Artificial Tears 1 drop 03/01/21 13:01 Artificial Tears 15 Ml Drops EYE-BOTH QID PRN Dry Eye(S) Buspirone HCl 5 mg 03/02/21 09:00 03/02/21 09:25 Buspirone Hcl 5 Mg Tablet PO 5 mg DAILY JUANCHO Administration Calcium Carbonate 750 mg 03/01/21 17:30 03/02/21 09:24 Calcium Carbonate 750 Mg Tab.Chew PO 750 mg BIDPC JUANCHO Administration Clonazepam 0.5 mg 03/02/21 09:00 03/02/21 09:25 Clonazepam 0.5 Mg Tablet PO 0.5 mg DAILY JUANCHO Administration Docusate Sodium 100 mg 03/01/21 13:01 Docusate Sodium 100 Mg Capsule PO BID PRN Constipation Doxazosin Mesylate 2 mg 03/01/21 21:00 03/01/21 20:00 Doxazosin Mesylate 2 Mg Tablet PO 2 mg BEDTIME JUANCHO Administration Protocol Ergocalciferol 1,250 mcg 03/07/21 09:00 Ergocalciferol (Vitamin D2) 1,250 Mcg Capsule PO We@0900 JUANCHO Fluticasone/Vilanterol 1 puff 03/02/21 08:00 03/02/21 08:14 Fluticasone/Vilanterol 200/25 Blst.W.Dev INHALE 1 puff RDAILY JUANCHO Administration Hydromorphone HCl 0.5 mg 03/01/21 13:04 03/02/21 04:42 Hydromorphone Hcl 0.5 Mg/0.5 Ml Syringe IVPUSH 0.5 mg Q4H PRN Administration Pain, Severe (Pain Scale 7-10) Lactated Ringer's 1,000 mls @ 80 mls/hr 03/01/21 13:30 03/02/21 03:58 Lr IVCONT 80 mls/hr .[id number] JUANCHO Administration Metronidazole 500 mg in 100 mls @ 100 mls/hr 03/01/21 13:30 03/02/21 05:24 Flagyl IV Infused Q8H JUANCHO Infusion Levofloxacin 500 mg in 100 mls @ 100 mls/hr 03/02/21 12:00 Levaquin IV Q24H JUANCHO Methylprednisolone Sodium Succinate 40 mg 03/02/21 09:00 03/02/21 09:24 Methylprednisolone Sod Succ 40 Mg/Ml Vial IVPUSH 40 mg DAILY JUANCHO Administration Montelukast Sodium 10 mg 03/01/21 21:00 03/01/21 20:00 Montelukast Sodium 10 Mg Tablet PO 10 mg BEDTIME JUANCHO Administration Multivitamins/Vitamin C 1 tab 03/01/21 13:15 03/02/21 09:24 Multivitamin Tablet PO 1 tab DAILY JUANCHO Administration Ondansetron HCl 4 mg 03/01/21 15:16 03/01/21 18:07 Ondansetron Hcl 4 Mg/2 Ml Vial IVPUSH 4 mg Q8H PRN Administration nausea Paroxetine HCl 40 mg 03/01/21 13:15 03/02/21 09:25 Paroxetine Hcl 40 Mg Tablet PO 40 mg DAILY JUANCHO Administration Pharmacy Consult 1 each 03/01/21 10:05 Consult Rx Perform Med Rec MISCELLANE ONCE PRN Consult order Rivaroxaban 10 mg 03/02/21 09:00 03/02/21 09:25 Rivaroxaban 10 Mg Tablet PO 10 mg DAILY JUANCHO Administration Sodium Chloride 3 ml 03/01/21 16:00 03/02/21 09:24 0.9 % Sodium Chloride Flush 3 Ml Syringe IVFLUSH Not Given QSHIFT JUANCHO Topiramate 100 mg 03/01/21 21:00 03/02/21 09:25 Topiramate 100 Mg Tablet PO 100 mg BID JUANCHO Administration Tramadol HCl 50 mg 03/01/21 13:01 03/02/21 09:25 Tramadol Hcl 50 Mg Tablet PO 50 mg BID PRN Administration Pain Zolpidem Tartrate 5 mg 03/01/21 21:00 03/01/21 20:00 Zolpidem Tartrate 5 Mg Tablet PO 5 mg BEDTIME JUANCHO Administration Labs CBC & Chem 7: 03/02/21 05:34 03/02/21 05:34 Labs: Laboratory Results - last 24 hr 03/01/21 03/01/21 03/01/21 10:01 10:09 10:09 WBC RBC Hgb Hct MCV MCH MCHC RDW Plt Count MPV Immature Gran % (Auto) Neut % (Auto) Lymph % (Auto) [place] % (Auto) Eos % (Auto) Baso % (Auto) Lymph # (Auto) [place] # (Auto) Eos # (Auto) Baso # (Auto) Abs Immat Gran (auto) Absolute Neuts (auto) Absolute Nucleated RBC Nucleated RBC % (auto) Smear Tech's Comments PT 11.3 INR 1.0 Sodium 141 Potassium 3.6 Chloride 105 Carbon Dioxide 23 Anion Gap 17 BUN 16 Creatinine 0.90 Estim Creat Clear Calc 75.4 Estimated GFR > 60 Random Glucose 138 H D Lactic Acid Calcium 9.9 Magnesium 2.2 Total Bilirubin 0.4 AST 19 D ALT 17 Alkaline Phosphatase 136 H D C-Reactive Protein Total Protein 8.4 H Albumin 4.7 Lipase 13 Beta HCG, Quant < 2 Urine Color YELLOW Urine Appearance HAZY Urine pH 6.5 Ur Specific [place] 1.010 Urine Protein 1+ H Urine Glucose (UA) 100 H Urine Ketones NEG Urine Blood TRACE Urine Nitrite NEG Ur Leukocyte Esterase NEG Urine RBC 5-9 H Urine WBC 0-2 Ur Squamous Epith Cells TRACE Amorphous Sediment 2+ Urine Bacteria TRACE C. difficile Tox B Gene COVID-19 (SHAAN) COVID-19 Clin Com 03/01/21 03/01/21 03/01/21 10:10 10:10 13:07 WBC 14.4 H RBC 5.40 Hgb 14.9 Hct 45.8 MCV 84.8 MCH 27.6 MCHC 32.5 RDW 15.4 Plt Count 281 MPV 11.7 Immature Gran % (Auto) 0.2 Neut % (Auto) 91.5 H Lymph % (Auto) 4.2 L [place] % (Auto) 3.8 Eos % (Auto) 0.1 Baso % (Auto) 0.2 Lymph # (Auto) 0.6 L [place] # (Auto) 0.6 Eos # (Auto) 0.0 Baso # (Auto) 0.0 Abs Immat Gran (auto) 0.03 Absolute Neuts (auto) 13.1 H Absolute Nucleated RBC 0.000 Nucleated RBC % (auto) 0.0 Smear Tech's Comments VERIFIED PT INR Sodium Potassium Chloride Carbon Dioxide Anion Gap BUN Creatinine Estim Creat Clear Calc Estimated GFR Random Glucose Lactic Acid 0.8 Calcium Magnesium Total Bilirubin AST ALT Alkaline Phosphatase C-Reactive Protein Total Protein Albumin Lipase Beta HCG, Quant Urine Color Urine Appearance Urine pH Ur Specific [place] Urine Protein Urine Glucose (UA) Urine Ketones Urine Blood Urine Nitrite Ur Leukocyte Esterase Urine RBC Urine WBC Ur Squamous Epith Cells Amorphous Sediment Urine Bacteria C. difficile Tox B Gene COVID-19 (SHAAN) Negative COVID-19 Clin Com See Note 03/01/21 03/02/21 03/02/21 14:16 05:34 05:34 WBC 10.3 RBC 4.35 Hgb 12.0 Hct 37.2 MCV 85.5 MCH 27.6 MCHC 32.3 RDW 15.3 Plt Count 234 MPV 11.8 Immature Gran % (Auto) Neut % (Auto) Lymph % (Auto) [place] % (Auto) Eos % (Auto) Baso % (Auto) Lymph # (Auto) [place] # (Auto) Eos # (Auto) Baso # (Auto) Abs Immat Gran (auto) Absolute Neuts (auto) Absolute Nucleated RBC 0.000 Nucleated RBC % (auto) 0.0 Smear Tech's Comments PT INR Sodium 139 Potassium 3.8 Chloride 108 Carbon Dioxide 22 Anion Gap 13 BUN 12 Creatinine 0.79 Estim Creat Clear Calc 85.9 Estimated GFR > 60 Random Glucose 108 Lactic Acid Calcium 9.0 D Magnesium Total Bilirubin AST ALT Alkaline Phosphatase C-Reactive Protein Total Protein Albumin Lipase Beta HCG, Quant Urine Color Urine Appearance Urine pH Ur Specific [place] Urine Protein Urine Glucose (UA) Urine Ketones Urine Blood Urine Nitrite Ur Leukocyte Esterase Urine RBC Urine WBC Ur Squamous Epith Cells Amorphous Sediment Urine Bacteria C. difficile Tox B Gene NEGATIVE COVID-19 (SHAAN) COVID-19 [employer] Com 03/02/21 05:34 WBC RBC Hgb Hct MCV MCH MCHC RDW Plt Count MPV Immature Gran % (Auto) Neut % (Auto) Lymph % (Auto) [place] % (Auto) Eos % (Auto) Baso % (Auto) Lymph # (Auto) [place] # (Auto) Eos # (Auto) Baso # (Auto) Abs Immat Gran (auto) Absolute Neuts (auto) Absolute Nucleated RBC Nucleated RBC % (auto) Smear Tech's Comments PT INR Sodium Potassium Chloride Carbon Dioxide Anion Gap BUN Creatinine Estim Creat Clear Calc Estimated GFR Random Glucose Lactic Acid Calcium Magnesium Total Bilirubin AST ALT Alkaline Phosphatase C-Reactive Protein 2.87 H Total Protein Albumin Lipase Beta HCG, Quant Urine Color Urine Appearance Urine pH Ur Specific [place] Urine Protein Urine Glucose (UA) Urine Ketones Urine Blood Urine Nitrite Ur Leukocyte Esterase Urine RBC Urine WBC Ur Squamous Epith Cells Amorphous Sediment Urine Bacteria C. difficile Tox B Gene COVID-19 (SHAAN) COVID-19 Clin Com Quality Stroke Does the patient have a stroke diagnosis?: No VTE Prior VTE?: No VTE Risk Level:: Medical - moderate - high VTE Device Contraindication: Treatment Not Indicated VTE Drug Contraindication: N/A - Med Ordered Assessment and Plan (1) Generalized abdominal pain: Status: Deleted (2) Crohn's colitis: Status: Acute Assessment and Plan: 50F presented with abdominal pain and diarrhea crohns flare steroids, gi following, pain control cdif negative empiric antibiotics, ivf until po intake increases asthma stable inhalers htn doxazosin amlodipine depression antidepressants
[2021-03-02] MEDS: levoFLOXacin/D5W 500 MG/100 ML PIGGYBACK 100 MG IV (10:58)
--- NOTE | 2021-03-02 12:54 | MHC.CM.PN ---
Addendum entered by Elicia Rausch 03/02/21 13:01: EDUCATED ABOUT THE IMPORTSNCE OF HAVING A HEALTH PROXY, AND REQUESTED COPY TO BE BROUGHT IN OR MAILED ONCE DISCHARGED TO [facility] FOR THE INSANEICAL RECORD S Original Note: NURSE DESIGN CENTER CONSULTANT NOTE ELECTRONIC MEDICAL RECORD REVIEWED ALONG WITH CASE DISCUSSED WITH STAFF NURSE AND HOSPITALIST , MET WITH PATIENT , SHE REPORTED SHE LIVED ALONE ,HER PARENTS ARE NEAR BY , SHE HAS HISTORY OF CHRONS WITH [employer] AND RHEUMATOID ARTHRITIS AND RECEIVES ( METHOTEXTRATE AND SRARELA) SHE REPORTED THAT SHE NEED ASSISTANCE WITH ADLS AND MOBILITY. 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 SHE HAS NO VNA SERVICES OR DME SERVICES IN THE HOME , HE REPORTED THAT SHE IS WORKING WITH HER PCP TO SECURE MENTAL HEALTH COUNSELING WITH [facility] AND IS AWAITING A CALL BACK FROM THEM FOR ANXIETY/DEPRESSION) DISCHARGE PLAN ANTICIPATE HOEM NO SERVICES SELF RESUMPTION OF HER MENTAL HEALTH COUNSELING THROUGH [facility], PATIENT IS WORKING WITH HER PCP TO SECURE MENTAL HEALTH COUNSELING THROUGH [facility].TRANSPORTATION FAMILY PCP [facility]
[2021-03-02] MEDS: Zolpidem Tartrate 5 MG TABLET PO (20:39)
[2021-03-02] MEDS: Doxazosin Mesylate 2 MG TABLET PO (20:39)
[2021-03-02] MEDS: Amitriptyline HCl 25 MG TABLET 50 MG PO (20:40)
[2021-03-02] MEDS: Montelukast Sodium 10 MG TABLET PO (20:40)
[2021-03-02] MEDS: 0.9 % Sodium Chloride Flush 3 ML SYRINGE IVFLUSH (23:49)
[2021-03-03] VITALS (9 sets, daily range): BP systolic 108–137; BP diastolic 55–84; PULSE 56–80; RESP 16–20; TEMP 35.9–36.5; O2SAT 94–98
[2021-03-03] MEDS: HYDROmorphone HCl 0.5 MG/0.5 ML SYRINGE IVPUSH ×4 (03:58→21:09)
[2021-03-03] MEDS: Lactated Ringers 1,000 ML 80 ML IVCONT ×3 (05:02→20:36)
[2021-03-03] MEDS: metroNIDAZOLE/NS 500 MG/100 ML PIGGYBACK 100 MG IV ×3 (05:02→20:36)
[2021-03-03] MEDS: Fluticasone/Vilanterol 200/25 BLST.W.DEV 1 PUFF INHALE (07:57)
[2021-03-03] MEDS: Rivaroxaban 10 MG TABLET PO (08:25)
[2021-03-03] MEDS: busPIRone HCl 5 MG TABLET PO (08:25)
[2021-03-03] MEDS: PARoxetine HCL 40 MG TABLET PO (08:25)
[2021-03-03] MEDS: traMADoL HCL 50 MG TABLET PO ×2 (08:25→23:48)
[2021-03-03] MEDS: methylPREDNISolone Sod Succ 40 MG/ML VIAL IVPUSH (08:25)
[2021-03-03] MEDS: Topiramate 100 MG TABLET PO ×2 (08:25→20:35)
[2021-03-03] MEDS: clonazePAM 0.5 MG TABLET PO (08:25)
[2021-03-03] MEDS: Multivitamin TABLET 1 TAB PO (08:25)
[2021-03-03] MEDS: Calcium Carbonate 750 MG TAB.CHEW PO ×2 (08:25→17:15)
[2021-03-03] MEDS: 0.9 % Sodium Chloride Flush 3 ML SYRINGE IVFLUSH ×2 (08:25→17:15)
[2021-03-03] MEDS: amLODIPine Besylate 10 MG TABLET PO (08:27)
--- NOTE | 2021-03-03 10:12 | HO.PM.IMPN ---
Subjective Subjective Date of Service: 03/03/21 Interval History: still with pain, no appetite Cardiovascular Cardiovascular: Reports no additional cardiovascular complaints Respiratory Respiratory: Reports no additional respiratory complaints Gastrointestinal Gastrointestinal: Reports no additional gastrointestinal complaints Physical Exam Vital Signs: Vital Signs: Last Vital Signs Temp 97.7 F 03/03/21 07:31 Pulse 56 03/03/21 07:59 Resp 18 03/03/21 07:31 BP 123/80 03/03/21 08:27 Pulse Ox 97 03/03/21 07:31 Body Mass Index 34.1 General: AO X 3, no acute distress Resp: CTA bilateral CVS: S1,S2,RRR GI: soft, epigastric tender, non distended Neuro: motor grossly intact Psych: appropriate affect Objective Data Current Medications Generic Name Dose Route Start Last Admin Trade Name Freq PRN Reason Stop Dose Admin Acetaminophen 650 mg 03/01/21 13:04 Acetaminophen 325 Mg Tablet PO Q6H PRN Pain, Mild (Pain Scale 1-3) Albuterol Sulfate 2 puff 03/01/21 13:01 Albuterol Sulfate 90 Mcg 8 Gm Inhaler INHALE QID PRN Shortness Of Breath Amitriptyline HCl 50 mg 03/01/21 21:00 03/02/21 20:40 Amitriptyline Hcl 25 Mg Tablet PO 50 mg BEDTIME JUANCHO Administration Amlodipine Besylate 10 mg 03/01/21 13:15 03/03/21 08:27 Amlodipine Besylate 10 Mg Tablet PO 10 mg DAILY JUANCHO Administration Protocol Artificial Tears 1 drop 03/01/21 13:01 Artificial Tears 15 Ml Drops EYE-BOTH QID PRN Dry Eye(S) Buspirone HCl 5 mg 03/02/21 09:00 03/03/21 08:25 Buspirone Hcl 5 Mg Tablet PO 5 mg DAILY JUANCHO Administration Calcium Carbonate 750 mg 03/01/21 17:30 03/03/21 08:25 Calcium Carbonate 750 Mg Tab.Chew PO 750 mg BIDPC JUANCHO Administration Clonazepam 0.5 mg 03/02/21 09:00 03/03/21 08:25 Clonazepam 0.5 Mg Tablet PO 0.5 mg DAILY JUANCHO Administration Docusate Sodium 100 mg 03/01/21 13:01 Docusate Sodium 100 Mg Capsule PO BID PRN Constipation Doxazosin Mesylate 2 mg 03/01/21 21:00 03/02/21 20:39 Doxazosin Mesylate 2 Mg Tablet PO 2 mg BEDTIME JUANCHO Administration Protocol Ergocalciferol 1,250 mcg 03/07/21 09:00 Ergocalciferol (Vitamin D2) 1,250 Mcg Capsule PO We@0900 JUANCHO Fluticasone/Vilanterol 1 puff 03/02/21 08:00 03/03/21 07:57 Fluticasone/Vilanterol 200/25 Blst.W.Dev INHALE 1 puff RDAILY JUANCHO Administration Hydromorphone HCl 0.5 mg 03/01/21 13:04 03/03/21 03:58 Hydromorphone Hcl 0.5 Mg/0.5 Ml Syringe IVPUSH 0.5 mg Q4H PRN Administration Pain, Severe (Pain Scale 7-10) Lactated Ringer's 1,000 mls @ 80 mls/hr 03/01/21 13:30 03/03/21 05:02 Lr IVCONT 80 mls/hr .[id number] JUANCHO Administration Metronidazole 500 mg in 100 mls @ 100 mls/hr 03/01/21 13:30 03/03/21 06:06 Flagyl IV Infused Q8H JUANCHO Infusion Levofloxacin 500 mg in 100 mls @ 100 mls/hr 03/02/21 12:00 03/02/21 12:25 Levaquin IV Infused Q24H JUANCHO Infusion Methylprednisolone Sodium Succinate 40 mg 03/02/21 09:00 03/03/21 08:25 Methylprednisolone Sod Succ 40 Mg/Ml Vial IVPUSH 40 mg DAILY JUANCHO Administration Montelukast Sodium 10 mg 03/01/21 21:00 03/02/21 20:40 Montelukast Sodium 10 Mg Tablet PO 10 mg BEDTIME JUANCHO Administration Multivitamins/Vitamin C 1 tab 03/01/21 13:15 03/03/21 08:25 Multivitamin Tablet PO 1 tab DAILY JUANCHO Administration Ondansetron HCl 4 mg 03/01/21 15:16 03/01/21 18:07 Ondansetron Hcl 4 Mg/2 Ml Vial IVPUSH 4 mg Q8H PRN Administration nausea Paroxetine HCl 40 mg 03/01/21 13:15 03/03/21 08:25 Paroxetine Hcl 40 Mg Tablet PO 40 mg DAILY JUANCHO Administration Pharmacy Consult 1 each 03/01/21 10:05 Consult Rx Perform Med Rec MISCELLANE ONCE PRN Consult order Rivaroxaban 10 mg 03/02/21 09:00 03/03/21 08:25 Rivaroxaban 10 Mg Tablet PO 10 mg DAILY JUANCHO Administration Sodium Chloride 3 ml 03/01/21 16:00 03/03/21 08:25 0.9 % Sodium Chloride Flush 3 Ml Syringe IVFLUSH 3 ml QSHIFT JUANCHO Administration Topiramate 100 mg 03/01/21 21:00 03/03/21 08:25 Topiramate 100 Mg Tablet PO 100 mg BID JUANCHO Administration Tramadol HCl 50 mg 03/01/21 13:01 03/03/21 08:25 Tramadol Hcl 50 Mg Tablet PO 50 mg BID PRN Administration Pain Zolpidem Tartrate 5 mg 03/01/21 21:00 03/02/21 20:39 Zolpidem Tartrate 5 Mg Tablet PO 5 mg BEDTIME JUANCHO Administration Labs CBC & Chem 7: 03/02/21 05:34 03/02/21 05:34 Microbiology Microbiology Results: Microbiology 03/01/21 13:15 Blood Culture - Preliminary Blood - Venous No growth after 24 hours. 03/01/21 13:06 Blood Culture - Preliminary Blood - Venous No growth after 24 hours. Quality Stroke Does the patient have a stroke diagnosis?: No VTE Prior VTE?: No VTE Risk Level:: Medical - moderate - high VTE Device Contraindication: Treatment Not Indicated VTE Drug Contraindication: N/A - Med Ordered Assessment and Plan (1) Generalized abdominal pain: Status: Deleted (2) Crohn's colitis: Status: Acute Assessment and Plan: 50F presented with abdominal pain and diarrhea crohns flare continue steroids, pain control cdif negative empiric antibiotics, ivf until po intake increases asthma stable inhalers htn doxazosin amlodipine depression antidepressants
[2021-03-03] MEDS: levoFLOXacin/D5W 500 MG/100 ML PIGGYBACK 100 MG IV (12:56)
[2021-03-03] MEDS: Montelukast Sodium 10 MG TABLET PO (20:35)
[2021-03-03] MEDS: Doxazosin Mesylate 2 MG TABLET PO (20:35)
[2021-03-03] MEDS: Amitriptyline HCl 25 MG TABLET 50 MG PO (20:35)
[2021-03-03] MEDS: Zolpidem Tartrate 5 MG TABLET PO (20:35)
[2021-03-04] VITALS (8 sets, daily range): BP systolic 98–131; BP diastolic 57–73; PULSE 53–78; RESP 14–19; TEMP 36.1–36.5; O2SAT 92–98
[2021-03-04] MEDS: HYDROmorphone HCl 0.5 MG/0.5 ML SYRINGE IVPUSH ×5 (01:44→18:20)
[2021-03-04] MEDS: metroNIDAZOLE/NS 500 MG/100 ML PIGGYBACK 100 MG IV ×3 (05:54→23:19)
[2021-03-04 07:10] LABS: Hematocrit 37.5 % (37-47); Hemoglobin 11.7 g/dl (12.0-16.0); Mean Corpuscular HGB Conc 31.2 g/dl (31.0-35.0); Mean Corpuscular Hemoglobin 27.1 pg (27.0-33.0); Mean Platelet Volume 12.1 fL (9.4-12.3); Platelet Count 237 X10*3/uL (160-400); Red Blood Count 4.31 X10*6/uL (4.20-5.50)
[2021-03-04 07:30] LABS: Anion Gap 10 (12-20); Blood Urea Nitrogen 12 mg/dL (9-16); Calcium 8.9 mg/dL (8.4-10.2); Carbon Dioxide 25 mmol/L (22-29); Chloride 109 mmol/L (96-108); Creatinine Clr Calc Pharmacy 82.8; Estimated Glomerular Filt Rate > 60; Glucose Fasting 84 mg/dL (60-99); Potassium 3.7 mmol/L (3.3-5.1); Sodium 140 mmol/L (135-145)
[2021-03-04] MEDS: Fluticasone/Vilanterol 200/25 BLST.W.DEV 1 PUFF INHALE (07:53)
[2021-03-04] MEDS: Topiramate 100 MG TABLET PO ×2 (08:39→20:13)
[2021-03-04] MEDS: busPIRone HCl 5 MG TABLET PO (08:39)
[2021-03-04] MEDS: clonazePAM 0.5 MG TABLET PO (08:39)
[2021-03-04] MEDS: Calcium Carbonate 750 MG TAB.CHEW PO ×2 (08:39→16:48)
[2021-03-04] MEDS: PARoxetine HCL 40 MG TABLET PO (08:39)
[2021-03-04] MEDS: Multivitamin TABLET 1 TAB PO (08:39)
[2021-03-04] MEDS: amLODIPine Besylate 10 MG TABLET PO (08:39)
[2021-03-04] MEDS: Rivaroxaban 10 MG TABLET PO (08:40)
[2021-03-04] MEDS: methylPREDNISolone Sod Succ 40 MG/ML VIAL IVPUSH (08:40)
[2021-03-04] MEDS: traMADoL HCL 50 MG TABLET PO ×2 (08:46→20:13)
[2021-03-04] MEDS: polyethylene glycoL 3350 17 GM POWD.PACK PO (09:30)
--- NOTE | 2021-03-04 10:22 | P.PNIM_ITS ---
Subjective Subjective Date of Service: 03/04/21 Interval History: Still with pain only minimally better Cardiovascular Cardiovascular: Reports no additional cardiovascular complaints Respiratory Respiratory: Reports no additional respiratory complaints Physical Exam Vital Signs: Vital Signs: Last Vital Signs Temp 97.0 F 03/04/21 07:56 Pulse 61 03/04/21 07:56 Resp 19 03/04/21 07:56 BP 126/70 03/04/21 07:56 Pulse Ox 94 03/04/21 07:56 Body Mass Index 34.1 General: AO X 3, no acute distress Resp: CTA bilateral CVS: S1,S2,RRR GI: soft, epigastric tender, non distended Neuro: motor grossly intact Psych: appropriate affect Objective Data Current Medications Generic Name Dose Route Start Last Admin Trade Name Freq PRN Reason Stop Dose Admin Acetaminophen 650 mg 03/01/21 13:04 Acetaminophen 325 Mg Tablet PO Q6H PRN Pain, Mild (Pain Scale 1-3) Albuterol Sulfate 2 puff 03/01/21 13:01 Albuterol Sulfate 90 Mcg 8 Gm Inhaler INHALE QID PRN Shortness Of Breath Amitriptyline HCl 50 mg 03/01/21 21:00 03/03/21 20:35 Amitriptyline Hcl 25 Mg Tablet PO 50 mg BEDTIME JUANCHO Administration Amlodipine Besylate 10 mg 03/01/21 13:15 03/04/21 08:39 Amlodipine Besylate 10 Mg Tablet PO 10 mg DAILY JUANCHO Administration Protocol Artificial Tears 1 drop 03/01/21 13:01 Artificial Tears 15 Ml Drops EYE-BOTH QID PRN Dry Eye(S) Buspirone HCl 5 mg 03/02/21 09:00 03/04/21 08:39 Buspirone Hcl 5 Mg Tablet PO 5 mg DAILY JUANCHO Administration Calcium Carbonate 750 mg 03/01/21 17:30 03/04/21 08:39 Calcium Carbonate 750 Mg Tab.Chew PO 750 mg BIDPC JUANCHO Administration Clonazepam 0.5 mg 03/02/21 09:00 03/04/21 08:39 Clonazepam 0.5 Mg Tablet PO 0.5 mg DAILY JUANCHO Administration Docusate Sodium 100 mg 03/01/21 13:01 Docusate Sodium 100 Mg Capsule PO BID PRN Constipation Doxazosin Mesylate 2 mg 03/01/21 21:00 03/03/21 20:35 Doxazosin Mesylate 2 Mg Tablet PO 2 mg BEDTIME JUANCHO Administration Protocol Ergocalciferol 1,250 mcg 03/07/21 09:00 Ergocalciferol (Vitamin D2) 1,250 Mcg Capsule PO We@0900 JUANCHO Fluticasone/Vilanterol 1 puff 03/02/21 08:00 03/04/21 07:53 Fluticasone/Vilanterol 200/25 Blst.W.Dev INHALE 1 puff RDAILY JUANCHO Administration Hydromorphone HCl 0.5 mg 03/01/21 13:04 03/04/21 10:16 Hydromorphone Hcl 0.5 Mg/0.5 Ml Syringe IVPUSH 0.5 mg Q4H PRN Administration Pain, Severe (Pain Scale 7-10) Lactated Ringer's 1,000 mls @ 80 mls/hr 03/01/21 13:30 03/04/21 09:10 Lr IVCONT Infused .[id number] JUANCHO Infusion Metronidazole 500 mg in 100 mls @ 100 mls/hr 03/01/21 13:30 03/04/21 07:02 Flagyl IV Infused Q8H JUANCHO Infusion Levofloxacin 500 mg in 100 mls @ 100 mls/hr 03/02/21 12:00 03/03/21 14:14 Levaquin IV Infused Q24H JUANCHO Infusion Methylprednisolone Sodium Succinate 40 mg 03/02/21 09:00 03/04/21 08:40 Methylprednisolone Sod Succ 40 Mg/Ml Vial IVPUSH 40 mg DAILY JUANCHO Administration Montelukast Sodium 10 mg 03/01/21 21:00 03/03/21 20:35 Montelukast Sodium 10 Mg Tablet PO 10 mg BEDTIME JUANCHO Administration Multivitamins/Vitamin C 1 tab 03/01/21 13:15 03/04/21 08:39 Multivitamin Tablet PO 1 tab DAILY JUANCHO Administration Ondansetron HCl 4 mg 03/01/21 15:16 03/01/21 18:07 Ondansetron Hcl 4 Mg/2 Ml Vial IVPUSH 4 mg Q8H PRN Administration nausea Paroxetine HCl 40 mg 03/01/21 13:15 03/04/21 08:39 Paroxetine Hcl 40 Mg Tablet PO 40 mg DAILY JUANCHO Administration Pharmacy Consult 1 each 03/01/21 10:05 Consult Rx Perform Med Rec MISCELLANE ONCE PRN Consult order Polyethylene Glycol 17 gm 03/04/21 09:15 03/04/21 09:30 Polyethylene Glycol 3350 17 Gm Powd.Pack PO 17 gm DAILY JUANCHO Administration Rivaroxaban 10 mg 03/02/21 09:00 03/04/21 08:40 Rivaroxaban 10 Mg Tablet PO 10 mg DAILY JUANCHO Administration Sodium Chloride 3 ml 03/01/21 16:00 03/04/21 07:04 0.9 % Sodium Chloride Flush 3 Ml Syringe IVFLUSH Not Given QSHIFT [facility] Topiramate 100 mg 03/01/21 21:00 03/04/21 08:39 Topiramate 100 Mg Tablet PO 100 mg BID JUANCHO Administration Tramadol HCl 50 mg 03/01/21 13:01 03/04/21 08:46 Tramadol Hcl 50 Mg Tablet PO 50 mg BID PRN Administration Pain Zolpidem Tartrate 5 mg 03/01/21 21:00 03/03/21 20:35 Zolpidem Tartrate 5 Mg Tablet PO 5 mg BEDTIME JUANCHO Administration Labs CBC & Chem 7: 03/04/21 06:16 03/04/21 06:16 Labs: Laboratory Results - last 24 hr 03/04/21 03/04/21 06:16 06:16 WBC 8.0 RBC 4.31 Hgb 11.7 L Hct 37.5 MCV 87.0 MCH 27.1 MCHC 31.2 RDW 15.0 Plt Count 237 MPV 12.1 Absolute Nucleated RBC 0.000 Nucleated RBC % (auto) 0.0 Sodium 140 Potassium 3.7 Chloride 109 H Carbon Dioxide 25 Anion Gap 10 L BUN 12 Creatinine 0.82 Estim Creat Clear Calc 82.8 Estimated GFR > 60 Fasting Glucose 84 Calcium 8.9 Microbiology Microbiology Results: Microbiology 03/01/21 13:15 Blood Culture - Preliminary Blood - Venous No growth after 48 hours. 03/01/21 13:06 Blood Culture - Preliminary Blood - Venous No growth after 48 hours. Quality Stroke Does the patient have a stroke diagnosis?: No VTE Prior VTE?: No VTE Risk Level:: Medical - moderate - high VTE Device Contraindication: Treatment Not Indicated VTE Drug Contraindication: N/A - Med Ordered Assessment and Plan (1) Generalized abdominal pain: Status: Deleted (2) Crohn's colitis: Status: Acute Assessment and Plan: 50F presented with abdominal pain and diarrhea crohns flare continue steroids, pain control cdif negative empiric antibiotics, ivf until po intake increases still with pain asthma stable inhalers htn doxazosin amlodipine depression antidepressants
[2021-03-04] MEDS: Lactated Ringers 1,000 ML 80 ML IVCONT (10:55)
[2021-03-04] MEDS: levoFLOXacin/D5W 500 MG/100 ML PIGGYBACK 100 MG IV (11:42)
--- NOTE | 2021-03-04 14:34 | P.PNGI_ITS ---
Subjective Subjective Date of Service: 03/04/21 Interval History: Notes minimal improvement in abdominal pain - pain is 8/10 in intensity. Notes some pain in the right flank and thinks rt flank pain is similar to past pain associated with kidney stones Asking for pain medication every 4 hrs. Advancing her diet slowly. She was able to take some mashed potatoes earlier today Critical Care Time (minutes): 15 Physical Exam Vital Signs: Vital Signs: Last Vital Signs Temp 96.9 F 03/04/21 11:41 Pulse 78 03/04/21 11:41 Resp 18 03/04/21 11:41 BP 131/73 03/04/21 11:41 Pulse Ox 98 03/04/21 11:41 Body Mass Index 34.1 Const: General: anxious and tired appearing Nutritional Appearance: obese GI: Palpation (GI): Tenderness to palpation present (GI) (Epigastric and right flank) Objective Data Labs CBC & Chem 7: 03/04/21 06:16 03/04/21 06:16 Labs: Laboratory Results - last 24 hr 03/04/21 03/04/21 06:16 06:16 WBC 8.0 RBC 4.31 Hgb 11.7 L Hct 37.5 MCV 87.0 MCH 27.1 MCHC 31.2 RDW 15.0 Plt Count 237 MPV 12.1 Absolute Nucleated RBC 0.000 Nucleated RBC % (auto) 0.0 Sodium 140 Potassium 3.7 Chloride 109 H Carbon Dioxide 25 Anion Gap 10 L BUN 12 Creatinine 0.82 Estim Creat Clear Calc 82.8 Estimated GFR > 60 Fasting Glucose 84 Calcium 8.9 Microbiology Microbiology Results: Microbiology 03/01/21 13:15 Blood - Venous Blood Culture - Preliminary No growth after 48 hours. 03/01/21 13:06 Blood - Venous Blood Culture - Preliminary No growth after 48 hours. Progress Note: A&P Assessment and plan (1) Crohn's colitis: Status: Acute (2) Abdominal pain: Status: Acute Assessment and Plan: 50 YF with RA, GERD, asthma, sleep apnea, iron def anemia, intermittent compliance with follow up appointments, anxiety and depression with Crohn's disease involving the left colon (and suspected jejunal involvement). Pt was diagnosed with Crohn's colitis 20 yrs ago and is status post sigmoid colectomy with colostomy in 2010, reversal of colostomy in 2011. She has failed treatment with multiple medications in the past due to lack of efficacy or side effects including Remicade, Humira, Cimzia, Entyvio, azathioprine caused pancreatitis. She recalls she had the best response with Humira which was stopped due to concern for MS. She was seen by Neurology at [facility] and was advised a repeat MRI scan of the brain. Pt was re-referred to [facility] Neurology and GI RN was informed that she has been discharged from Neurology due to multiple no-shows. She has been on Stelara every 8 weeks which had worked well for her in the past. Dose of Stelara was increased to every 4 weeks a year ago due to breakthrough symptoms and low trough levels. She has been treated with Prednisone intermittently for CD flares. Colonoscopy in 01/18/20 showed patchy erythema throughout the colon - surveillance biopsies were obtained. Focal area of ulcerations with a tight stricture at 18 to 20 cms and unable to pass the colonoscope through the stricture. Stricture was dilated with a 12mm (26 F) CRE balloon and colonoscope was then advanced into the colon. Patchy erythema with focal ulcers in the distal rectum. Inflammation in the recto- sigmoid significantly improved from last year - severe left sided colitis with minimal inflammation in the remaining colon. Biopsies were negative for CMV. Patient was seen at [facility] clinic for a 2nd opinion regarding treatment options and addition of methotrexate was advised. Patient was started on methotrexate 25 mg intramuscularly every week on 04/13/19 in the Oncology clinic. She was switched to p.o. methotrexate 50 mg once a week in Sep, 2019. She is also on budesonide 9 mg once daily. She continues to have intermittent flares requiring IV steroids. Pt was seen at [facility] [place] [facility] on 05/03/20 and dose of MTX was increased to 25 mg PO (10 tab) every week from 5 or 6 tablets daily in March 2020. Pt states she is taking MTX 10 mg every week at present. Last Stelara injection was on 01/30/2021 - She missed Stelara injection scheduled on 02/27/21 since she was having abdominal pain. Patient admitted with worsening abdominal pain, diarrhea and hematochezia. Continues to have pain despite being on IV steroids and antibiotics x 48 hrs CRP elevated at 2.87 (Increased from 0.86 in 10/2020). RECOMMENDATIONS: 1. Agree with IV pain medications and IV steroids. 2. Switch to PO once her abdominal pain improves 3. I will reschedule her Stelara injection for next week - once she is discharged from the hospital 4. Pt advised evaluation with an EGD and colonoscopy/flexible sig (if unable to tolerate the prep) - she would like to proceed 5. Hold Xarelto. I will schedule her procedures on 03/06/21 Fall Risk Details Current Medications: Current Medications Generic Name Dose Route Start Last Admin Trade Name Freq PRN Reason Stop Dose Admin Acetaminophen 650 mg 03/01/21 13:04 Acetaminophen 325 Mg Tablet PO Q6H PRN Pain, Mild (Pain Scale 1-3) Albuterol Sulfate 2 puff 03/01/21 13:01 Albuterol Sulfate 90 Mcg 8 Gm Inhaler INHALE QID PRN Shortness Of Breath Amitriptyline HCl 50 mg 03/01/21 21:00 03/03/21 20:35 Amitriptyline Hcl 25 Mg Tablet PO 50 mg BEDTIME JUANCHO Administration Amlodipine Besylate 10 mg 03/01/21 13:15 03/04/21 08:39 Amlodipine Besylate 10 Mg Tablet PO 10 mg DAILY JUANCHO Administration Protocol Artificial Tears 1 drop 03/01/21 13:01 Artificial Tears 15 Ml Drops EYE-BOTH QID PRN Dry Eye(S) Buspirone HCl 5 mg 03/02/21 09:00 03/04/21 08:39 Buspirone Hcl 5 Mg Tablet PO 5 mg DAILY JUANCHO Administration Calcium Carbonate 750 mg 03/01/21 17:30 03/04/21 08:39 Calcium Carbonate 750 Mg Tab.Chew PO 750 mg BIDPC JUANCHO Administration Clonazepam 0.5 mg 03/02/21 09:00 03/04/21 08:39 Clonazepam 0.5 Mg Tablet PO 0.5 mg DAILY JUANCHO Administration Docusate Sodium 100 mg 03/01/21 13:01 Docusate Sodium 100 Mg Capsule PO BID PRN Constipation Doxazosin Mesylate 2 mg 03/01/21 21:00 03/03/21 20:35 Doxazosin Mesylate 2 Mg Tablet PO 2 mg BEDTIME JUANCHO Administration Protocol Enoxaparin Sodium 40 mg 03/05/21 08:00 Enoxaparin Sodium 40 Mg/0.4 Ml Syringe SUBCUT Q24H JUANCHO Ergocalciferol 1,250 mcg 03/07/21 09:00 Ergocalciferol (Vitamin D2) 1,250 Mcg Capsule PO We@0900 JUANCHO Fluticasone/Vilanterol 1 puff 03/02/21 08:00 03/04/21 07:53 Fluticasone/Vilanterol 200/25 Blst.W.Dev INHALE 1 puff RDAILY JUANCHO Administration Hydromorphone HCl 0.5 mg 03/01/21 13:04 03/04/21 14:17 Hydromorphone Hcl 0.5 Mg/0.5 Ml Syringe IVPUSH 0.5 mg Q4H PRN Administration Pain, Severe (Pain Scale 7-10) Lactated Ringer's 1,000 mls @ 80 mls/hr 03/01/21 13:30 03/04/21 10:55 Lr IVCONT 80 mls/hr .[id number] JUANCHO Administration Metronidazole 500 mg in 100 mls @ 100 mls/hr 03/01/21 13:30 03/04/21 13:45 Flagyl IV 100 mls/hr Q8H JUANCHO Administration Levofloxacin 500 mg in 100 mls @ 100 mls/hr 03/02/21 12:00 03/04/21 12:44 Levaquin IV Infused Q24H JUANCHO Infusion Methylprednisolone Sodium Succinate 40 mg 03/02/21 09:00 03/04/21 08:40 Methylprednisolone Sod Succ 40 Mg/Ml Vial IVPUSH 40 mg DAILY JUANCHO Administration Montelukast Sodium 10 mg 03/01/21 21:00 03/03/21 20:35 Montelukast Sodium 10 Mg Tablet PO 10 mg BEDTIME JUANCHO Administration Multivitamins/Vitamin C 1 tab 03/01/21 13:15 03/04/21 08:39 Multivitamin Tablet PO 1 tab DAILY JUANCHO Administration Ondansetron HCl 4 mg 03/01/21 15:16 03/01/21 18:07 Ondansetron Hcl 4 Mg/2 Ml Vial IVPUSH 4 mg Q8H PRN Administration nausea Pantoprazole Sodium 40 mg 03/04/21 16:30 Pantoprazole Sodium 40 Mg/10 Ml Vial IVPUSH BID@0630,1630 JUANCHO Paroxetine HCl 40 mg 03/01/21 13:15 03/04/21 08:39 Paroxetine Hcl 40 Mg Tablet PO 40 mg DAILY JUACNHO Administration Pharmacy Consult 1 each 03/01/21 10:05 Consult Rx Perform Med Rec MISCELLANE ONCE PRN Consult order Polyethylene Glycol 17 gm 03/04/21 09:15 03/04/21 09:30 Polyethylene Glycol 3350 17 Gm Powd.Pack PO 17 gm DAILY JUANCHO Administration Sodium Chloride 3 ml 03/01/21 16:00 03/04/21 07:04 0.9 % Sodium Chloride Flush 3 Ml Syringe IVFLUSH Not Given QSHIFT JUANCHO Topiramate 100 mg 03/01/21 21:00 03/04/21 08:39 Topiramate 100 Mg Tablet PO 100 mg BID JUANCHO Administration Tramadol HCl 50 mg 03/01/21 13:01 03/04/21 08:46 Tramadol Hcl 50 Mg Tablet PO 50 mg BID PRN Administration Pain Zolpidem Tartrate 5 mg 03/01/21 21:00 03/03/21 20:35 Zolpidem Tartrate 5 Mg Tablet PO 5 mg BEDTIME JUANCHO Administration Time Spent With Patient Time: Total time spent is greater than 50% in coordination of care (as documented) at patient's floor/unit and/or counseling patient: Time with patient: 15 - 24 minutes Procedures Date of Service Date of Service: 03/04/21 Quality Stroke Does the patient have a stroke diagnosis?: No VTE Prior VTE?: No VTE Risk Level:: Medical - moderate - high VTE Device Contraindication: Treatment Not Indicated VTE Drug Contraindication: N/A - Med Ordered
[2021-03-04] MEDS: 0.9 % Sodium Chloride Flush 3 ML SYRINGE IVFLUSH (16:48)
[2021-03-04] MEDS: Pantoprazole Sodium 40 MG/10 ML VIAL IVPUSH (16:48)
[2021-03-04] MEDS: Amitriptyline HCl 25 MG TABLET 50 MG PO (20:11)
[2021-03-04] MEDS: Montelukast Sodium 10 MG TABLET PO (20:12)
[2021-03-04] MEDS: Doxazosin Mesylate 2 MG TABLET PO (20:12)
[2021-03-04] MEDS: Zolpidem Tartrate 5 MG TABLET PO (20:12)
[2021-03-05] VITALS (8 sets, daily range): BP systolic 105–144; BP diastolic 58–80; PULSE 58–68; RESP 16–20; TEMP 35.9–36.7; O2SAT 93–99
[2021-03-05] MEDS: HYDROmorphone HCl 0.5 MG/0.5 ML SYRINGE IVPUSH ×6 (00:23→22:40)
[2021-03-05] MEDS: Lactated Ringers 1,000 ML 80 ML IVCONT ×2 (01:27→13:47)
[2021-03-05] MEDS: Pantoprazole Sodium 40 MG/10 ML VIAL IVPUSH ×2 (05:42→17:08)
[2021-03-05] MEDS: metroNIDAZOLE/NS 500 MG/100 ML PIGGYBACK 100 MG IV ×3 (05:42→20:34)
[2021-03-05 07:37] LABS: Hemoglobin 12.3 g/dl (12.0-16.0); Mean Corpuscular HGB Conc 31.5 g/dl (31.0-35.0); Mean Corpuscular Hemoglobin 27.6 pg (27.0-33.0); Mean Corpuscular Volume 87.4 fL (80-98); Mean Platelet Volume 11.9 fL (9.4-12.3); Platelet Count 226 X10*3/uL (160-400); Red Blood Count 4.46 X10*6/uL (4.20-5.50); White Blood Count 8.5 X10*3/uL (4.8-10.8)
[2021-03-05 08:16] LABS: Anion Gap 11 (12-20); Blood Urea Nitrogen 11 mg/dL (9-16); C Reactive Protein 0.15 mg/dL (< or = 0.50); Calcium 8.7 mg/dL (8.4-10.2); Carbon Dioxide 23 mmol/L (22-29); Chloride 109 mmol/L (96-108); Creatinine Clr Calc Pharmacy 82.8; Estimated Glomerular Filt Rate > 60; Glucose Fasting 77 mg/dL (60-99); Potassium 3.6 mmol/L (3.3-5.1); Sodium 139 mmol/L (135-145)
[2021-03-05] MEDS: Calcium Carbonate 750 MG TAB.CHEW PO (09:25)
[2021-03-05] MEDS: busPIRone HCl 5 MG TABLET PO (09:25)
[2021-03-05] MEDS: amLODIPine Besylate 10 MG TABLET PO (09:25)
[2021-03-05] MEDS: Multivitamin TABLET 1 TAB PO (09:25)
[2021-03-05] MEDS: 0.9 % Sodium Chloride Flush 3 ML SYRINGE IVFLUSH ×2 (09:25→14:22)
[2021-03-05] MEDS: PARoxetine HCL 40 MG TABLET PO (09:26)
[2021-03-05] MEDS: clonazePAM 0.5 MG TABLET PO (09:26)
[2021-03-05] MEDS: Topiramate 100 MG TABLET PO ×2 (09:26→20:23)
[2021-03-05] MEDS: polyethylene glycoL 3350 17 GM POWD.PACK PO (09:27)
[2021-03-05] MEDS: methylPREDNISolone Sod Succ 40 MG/ML VIAL IVPUSH (09:27)
--- NOTE | 2021-03-05 10:00 | HO.PM.IMPN ---
Subjective Subjective Date of Service: 03/05/21 Interval History: still with pain, but slowly improving Cardiovascular Cardiovascular: Reports no additional cardiovascular complaints Respiratory Respiratory: Reports no additional respiratory complaints Physical Exam Vital Signs: Vital Signs: Last Vital Signs Temp 98.0 F 03/05/21 07:06 Pulse 65 03/05/21 09:25 Resp 16 03/05/21 07:06 BP 115/73 03/05/21 09:25 Pulse Ox 98 03/05/21 07:06 Body Mass Index 34.1 General: AO X 3, no acute distress Resp: CTA bilateral CVS: S1,S2,RRR GI: soft, epigastric tender, non distended Neuro: motor grossly intact Psych: appropriate affect Objective Data Current Medications Generic Name Dose Route Start Last Admin Trade Name Freq PRN Reason Stop Dose Admin Acetaminophen 650 mg 03/01/21 13:04 Acetaminophen 325 Mg Tablet PO Q6H PRN Pain, Mild (Pain Scale 1-3) Albuterol Sulfate 2 puff 03/01/21 13:01 Albuterol Sulfate 90 Mcg 8 Gm Inhaler INHALE QID PRN Shortness Of Breath Amitriptyline HCl 50 mg 03/01/21 21:00 03/04/21 20:11 Amitriptyline Hcl 25 Mg Tablet PO 50 mg BEDTIME JUANCHO Administration Amlodipine Besylate 10 mg 03/01/21 13:15 03/05/21 09:25 Amlodipine Besylate 10 Mg Tablet PO 10 mg DAILY JUANCHO Administration Protocol Artificial Tears 1 drop 03/01/21 13:01 Artificial Tears 15 Ml Drops EYE-BOTH QID PRN Dry Eye(S) Buspirone HCl 5 mg 03/02/21 09:00 03/05/21 09:25 Buspirone Hcl 5 Mg Tablet PO 5 mg DAILY JUANCHO Administration Calcium Carbonate 750 mg 03/01/21 17:30 03/05/21 09:25 Calcium Carbonate 750 Mg Tab.Chew PO 750 mg BIDPC JUANCHO Administration Clonazepam 0.5 mg 03/02/21 09:00 03/05/21 09:26 Clonazepam 0.5 Mg Tablet PO 0.5 mg DAILY JUANCHO Administration Docusate Sodium 100 mg 03/01/21 13:01 Docusate Sodium 100 Mg Capsule PO BID PRN Constipation Doxazosin Mesylate 2 mg 03/01/21 21:00 03/04/21 20:12 Doxazosin Mesylate 2 Mg Tablet PO 2 mg BEDTIME JUANCHO Administration Protocol Enoxaparin Sodium 40 mg 03/05/21 08:00 Enoxaparin Sodium 40 Mg/0.4 Ml Syringe SUBCUT Q24H JUANCHO Ergocalciferol 1,250 mcg 03/07/21 09:00 Ergocalciferol (Vitamin D2) 1,250 Mcg Capsule PO We@0900 JUANCHO Fluticasone/Vilanterol 1 puff 03/02/21 08:00 03/04/21 07:53 Fluticasone/Vilanterol 200/25 Blst.W.Dev INHALE 1 puff RDAILY JUANCHO Administration Hydromorphone HCl 0.5 mg 03/01/21 13:04 03/05/21 09:33 Hydromorphone Hcl 0.5 Mg/0.5 Ml Syringe IVPUSH 0.5 mg Q4H PRN Administration Pain, Severe (Pain Scale 7-10) Lactated Ringer's 1,000 mls @ 80 mls/hr 03/01/21 13:30 03/05/21 01:27 Lr IVCONT 80 mls/hr .[id number] JUANCHO Administration Metronidazole 500 mg in 100 mls @ 100 mls/hr 03/01/21 13:30 03/05/21 06:43 Flagyl IV Infused Q8H JUANCHO Infusion Levofloxacin 500 mg in 100 mls @ 100 mls/hr 03/02/21 12:00 03/04/21 12:44 Levaquin IV Infused Q24H JUANCHO Infusion Methylprednisolone Sodium Succinate 40 mg 03/02/21 09:00 03/05/21 09:27 Methylprednisolone Sod Succ 40 Mg/Ml Vial IVPUSH 40 mg DAILY JUANCHO Administration Montelukast Sodium 10 mg 03/01/21 21:00 03/04/21 20:12 Montelukast Sodium 10 Mg Tablet PO 10 mg BEDTIME JUANCHO Administration Multivitamins/Vitamin C 1 tab 03/01/21 13:15 03/05/21 09:25 Multivitamin Tablet PO 1 tab DAILY JUANCHO Administration Ondansetron HCl 4 mg 03/01/21 15:16 03/01/21 18:07 Ondansetron Hcl 4 Mg/2 Ml Vial IVPUSH 4 mg Q8H PRN Administration nausea Pantoprazole Sodium 40 mg 03/04/21 16:30 03/05/21 05:42 Pantoprazole Sodium 40 Mg/10 Ml Vial IVPUSH 40 mg BID@0630,1630 JUANCHO Administration Paroxetine HCl 40 mg 03/01/21 13:15 03/05/21 09:26 Paroxetine Hcl 40 Mg Tablet PO 40 mg DAILY JUANCHO Administration Pharmacy Consult 1 each 03/01/21 10:05 Consult Rx Perform Med Rec MISCELLANE ONCE PRN Consult order Polyethylene Glycol 17 gm 03/04/21 09:15 03/05/21 09:27 Polyethylene Glycol 3350 17 Gm Powd.Pack PO 17 gm DAILY JUANCHO Administration Polyethylene Glycol/Electrolytes 240 ml 03/05/21 13:00 Peg 3350/Na Sulf,Bicarb,Cl/Kcl 4,000 Ml Soln.Recon PO 03/05/21 18:21 Q20M JUANCHO Sodium Chloride 3 ml 03/01/21 16:00 03/05/21 09:25 0.9 % Sodium Chloride Flush 3 Ml Syringe IVFLUSH 3 ml QSHIFT JUANCHO Administration Topiramate 100 mg 03/01/21 21:00 03/05/21 09:26 Topiramate 100 Mg Tablet PO 100 mg BID JAUNCHO Administration Tramadol HCl 50 mg 03/01/21 13:01 03/04/21 20:13 Tramadol Hcl 50 Mg Tablet PO 50 mg BID PRN Administration Pain Zolpidem Tartrate 5 mg 03/01/21 21:00 03/04/21 20:12 Zolpidem Tartrate 5 Mg Tablet PO 5 mg BEDTIME JUANCHO Administration Labs CBC & Chem 7: 03/05/21 06:52 03/05/21 06:52 Labs: Laboratory Results - last 24 hr 03/05/21 03/05/21 06:52 06:52 WBC 8.5 RBC 4.46 Hgb 12.3 Hct 39.0 MCV 87.4 MCH 27.6 MCHC 31.5 RDW 15.0 Plt Count 226 MPV 11.9 Absolute Nucleated RBC 0.000 Nucleated RBC % (auto) 0.0 Sodium 139 Potassium 3.6 Chloride 109 H Carbon Dioxide 23 Anion Gap 11 L BUN 11 Creatinine 0.82 Estim Creat Clear Calc 82.8 Estimated GFR > 60 Fasting Glucose 77 Calcium 8.7 C-Reactive Protein 0.15 Quality Stroke Does the patient have a stroke diagnosis?: No VTE Prior VTE?: No VTE Risk Level:: Medical - moderate - high VTE Device Contraindication: Treatment Not Indicated VTE Drug Contraindication: N/A - Med Ordered Assessment and Plan (1) Generalized abdominal pain: Status: Deleted (2) Crohn's colitis: Status: Acute Assessment and Plan: 50F presented with abdominal pain and diarrhea crohns flare continue steroids, pain control cdif negative empiric antibiotics, ivf until po intake increases still with pain plan for colonoscopy tomorrow asthma stable inhalers htn doxazosin amlodipine depression antidepressants
[2021-03-05] MEDS: levoFLOXacin/D5W 500 MG/100 ML PIGGYBACK 100 MG IV (11:26)
[2021-03-05] MEDS: PEG 3350/Na Sulf,Bicarb,Cl/KCL 4,000 ML SOLN.RECON 4000 ML PO (13:46)
--- NOTE | 2021-03-05 14:19 | MHC.CLN ---
NUTRITION FOLLOW UP REVIEW OF PO INTAKE SHOWS SOME MEALS AT 100%. CURRENTLY CLEAR LIQUIDS AWAITING COLONOSCOPY.
[2021-03-05] MEDS: Amitriptyline HCl 25 MG TABLET 50 MG PO (20:23)
[2021-03-05] MEDS: Montelukast Sodium 10 MG TABLET PO (20:23)
[2021-03-05] MEDS: Doxazosin Mesylate 2 MG TABLET PO (20:24)
[2021-03-05] MEDS: Zolpidem Tartrate 5 MG TABLET PO (20:24)
[2021-03-06] VITALS (10 sets, daily range): BP systolic 101–161; BP diastolic 51–79; PULSE 58–87; RESP 16–20; TEMP 36–36.7; O2SAT 92–100
[2021-03-06] MEDS: traMADoL HCL 50 MG TABLET PO (00:41)
[2021-03-06] MEDS: Acetaminophen 325 MG TABLET 650 MG PO (01:57)
[2021-03-06] MEDS: HYDROmorphone HCl 0.5 MG/0.5 ML SYRINGE IVPUSH ×5 (02:41→21:16)
[2021-03-06] MEDS: Lactated Ringers 1,000 ML 80 ML IVCONT ×3 (03:23→21:20)
[2021-03-06 06:23] LABS: Hematocrit 37.5 % (37-47); Hemoglobin 12.2 g/dl (12.0-16.0); Mean Corpuscular HGB Conc 32.5 g/dl (31.0-35.0); Mean Corpuscular Hemoglobin 27.7 pg (27.0-33.0); Mean Corpuscular Volume 85.2 fL (80-98); Mean Platelet Volume 11.5 fL (9.4-12.3); Platelet Count 225 X10*3/uL (160-400); White Blood Count 11.2 X10*3/uL (4.8-10.8)
[2021-03-06] MEDS: metroNIDAZOLE/NS 500 MG/100 ML PIGGYBACK 100 MG IV (06:30)
[2021-03-06] MEDS: Pantoprazole Sodium 40 MG/10 ML VIAL IVPUSH ×2 (06:30→16:56)
[2021-03-06 06:43] LABS: Anion Gap 12 (12-20); Blood Urea Nitrogen 7 mg/dL (9-16); Calcium 8.8 mg/dL (8.4-10.2); Carbon Dioxide 23 mmol/L (22-29); Chloride 107 mmol/L (96-108); Creatinine Clr Calc Pharmacy 81.8; Estimated Glomerular Filt Rate > 60; Glucose Fasting 81 mg/dL (60-99); Potassium 3.3 mmol/L (3.3-5.1); Sodium 139 mmol/L (135-145)
[2021-03-06] MEDS: Topiramate 100 MG TABLET PO ×2 (08:09→21:17)
[2021-03-06] MEDS: busPIRone HCl 5 MG TABLET PO (08:09)
[2021-03-06] MEDS: PARoxetine HCL 40 MG TABLET PO (08:09)
[2021-03-06] MEDS: clonazePAM 0.5 MG TABLET PO (08:09)
[2021-03-06] MEDS: amLODIPine Besylate 10 MG TABLET PO (08:09)
[2021-03-06] MEDS: methylPREDNISolone Sod Succ 40 MG/ML VIAL IVPUSH (08:10)
[2021-03-06] MEDS: Fluticasone/Vilanterol 200/25 BLST.W.DEV 1 PUFF INHALE (08:59)
[2021-03-06] MEDS: Nystatin Oral Susp 500,000 UNIT/5 ML ORAL.SUSP 200000 UNIT PO (09:47)
--- NOTE | 2021-03-06 10:17 | HO.PM.IMPN ---
Subjective Subjective Date of Service: 03/06/21 Interval History: still with pain Cardiovascular Cardiovascular: Reports no additional cardiovascular complaints Respiratory Respiratory: Reports no additional respiratory complaints Physical Exam Vital Signs: Vital Signs: Last Vital Signs Temp 97.5 F 03/06/21 07:29 Pulse 87 03/06/21 08:59 Resp 17 03/06/21 07:29 BP 161/74 H 03/06/21 07:29 Pulse Ox 96 03/06/21 07:29 Body Mass Index 34.1 General: AO X 3, no acute distress Resp: CTA bilateral CVS: S1,S2,RRR GI: soft, epigastric tender, non distended Neuro: motor grossly intact Psych: appropriate affect Objective Data Current Medications Generic Name Dose Route Start Last Admin Trade Name Freq PRN Reason Stop Dose Admin Acetaminophen 650 mg 03/01/21 13:04 03/06/21 01:57 Acetaminophen 325 Mg Tablet PO 650 mg Q6H PRN Administration Pain, Mild (Pain Scale 1-3) Albuterol Sulfate 2 puff 03/01/21 13:01 Albuterol Sulfate 90 Mcg 8 Gm Inhaler INHALE QID PRN Shortness Of Breath Amitriptyline HCl 50 mg 03/01/21 21:00 03/05/21 20:23 Amitriptyline Hcl 25 Mg Tablet PO 50 mg BEDTIME JUANCHO Administration Amlodipine Besylate 10 mg 03/01/21 13:15 03/06/21 08:09 Amlodipine Besylate 10 Mg Tablet PO 10 mg DAILY JUANCHO Administration Protocol Artificial Tears 1 drop 03/01/21 13:01 Artificial Tears 15 Ml Drops EYE-BOTH QID PRN Dry Eye(S) Buspirone HCl 5 mg 03/02/21 09:00 03/06/21 08:09 Buspirone Hcl 5 Mg Tablet PO 5 mg DAILY JUANCHO Administration Calcium Carbonate 750 mg 03/01/21 17:30 03/06/21 08:22 Calcium Carbonate 750 Mg Tab.Chew PO Not Given BIDPC JUANCHO Clonazepam 0.5 mg 03/02/21 09:00 03/06/21 08:09 Clonazepam 0.5 Mg Tablet PO 0.5 mg DAILY JUANCHO Administration Docusate Sodium 100 mg 03/01/21 13:01 Docusate Sodium 100 Mg Capsule PO BID PRN Constipation Doxazosin Mesylate 2 mg 03/01/21 21:00 03/05/21 20:24 Doxazosin Mesylate 2 Mg Tablet PO 2 mg BEDTIME JUANCHO Administration Protocol Enoxaparin Sodium 40 mg 03/05/21 08:00 03/05/21 11:21 Enoxaparin Sodium 40 Mg/0.4 Ml Syringe SUBCUT Not Given Q24H JUANCHO Ergocalciferol 1,250 mcg 03/07/21 09:00 Ergocalciferol (Vitamin D2) 1,250 Mcg Capsule PO We@0900 JUANCHO Fluticasone/Vilanterol 1 puff 03/02/21 08:00 03/06/21 08:59 Fluticasone/Vilanterol 200/25 Blst.W.Dev INHALE 1 puff RDAILY JUANCHO Administration Hydromorphone HCl 0.5 mg 03/01/21 13:04 03/06/21 08:19 Hydromorphone Hcl 0.5 Mg/0.5 Ml Syringe IVPUSH 0.5 mg Q4H PRN Administration Pain, Severe (Pain Scale 7-10) Lactated Ringer's 1,000 mls @ 80 mls/hr 03/01/21 13:30 03/06/21 03:23 Lr IVCONT 80 mls/hr .[id number] JUANCHO Administration Metronidazole 500 mg in 100 mls @ 100 mls/hr 03/01/21 13:30 03/06/21 08:14 Flagyl IV Infused Q8H JUANCHO Infusion Levofloxacin 500 mg in 100 mls @ 100 mls/hr 03/02/21 12:00 03/05/21 12:26 Levaquin IV Infused Q24H JUANCHO Infusion Methylprednisolone Sodium Succinate 40 mg 03/02/21 09:00 03/06/21 08:10 Methylprednisolone Sod Succ 40 Mg/Ml Vial IVPUSH 40 mg DAILY JUANCHO Administration Montelukast Sodium 10 mg 03/01/21 21:00 03/05/21 20:23 Montelukast Sodium 10 Mg Tablet PO 10 mg BEDTIME JUANCHO Administration Multivitamins/Vitamin C 1 tab 03/01/21 13:15 03/06/21 08:14 Multivitamin Tablet PO Not Given DAILY JUANCHO Nystatin 200,000 unit 03/06/21 09:00 03/06/21 09:47 Nystatin Oral Susp 500,000 Unit/5 Ml Oral.Susp PO 200,000 unit QID JUANCHO Administration Protocol Ondansetron HCl 4 mg 03/01/21 15:16 03/01/21 18:07 Ondansetron Hcl 4 Mg/2 Ml Vial IVPUSH 4 mg Q8H PRN Administration nausea Pantoprazole Sodium 40 mg 03/04/21 16:30 03/06/21 06:30 Pantoprazole Sodium 40 Mg/10 Ml Vial IVPUSH 40 mg BID@0630,1630 JUANCHO Administration Paroxetine HCl 40 mg 03/01/21 13:15 03/06/21 08:09 Paroxetine Hcl 40 Mg Tablet PO 40 mg DAILY JUANCHO Administration Pharmacy Consult 1 each 03/01/21 10:05 Consult Rx Perform Med Rec MISCELLANE ONCE PRN Consult order Polyethylene Glycol 17 gm 03/04/21 09:15 03/06/21 08:14 Polyethylene Glycol 3350 17 Gm Powd.Pack PO Not Given DAILY JUANCHO Sodium Chloride 3 ml 03/01/21 16:00 03/06/21 08:14 0.9 % Sodium Chloride Flush 3 Ml Syringe IVFLUSH Not Given QSHIFT JUANCHO Topiramate 100 mg 03/01/21 21:00 03/06/21 08:09 Topiramate 100 Mg Tablet PO 100 mg BID JUANCHO Administration Tramadol HCl 50 mg 03/01/21 13:01 03/06/21 00:41 Tramadol Hcl 50 Mg Tablet PO 50 mg BID PRN Administration Pain Zolpidem Tartrate 5 mg 03/01/21 21:00 03/05/21 20:24 Zolpidem Tartrate 5 Mg Tablet PO 5 mg BEDTIME JUANCHO Administration Labs CBC & Chem 7: 03/06/21 05:59 03/06/21 05:59 Labs: Laboratory Results - last 24 hr 03/06/21 03/06/21 05:59 05:59 WBC 11.2 H RBC 4.40 Hgb 12.2 Hct 37.5 MCV 85.2 MCH 27.7 MCHC 32.5 RDW 15.0 Plt Count 225 MPV 11.5 Absolute Nucleated RBC 0.000 Nucleated RBC % (auto) 0.0 Sodium 139 Potassium 3.3 Chloride 107 Carbon Dioxide 23 Anion Gap 12 BUN 7 L Creatinine 0.83 Estim Creat Clear Calc 81.8 Estimated GFR > 60 Fasting Glucose 81 Calcium 8.8 Quality Stroke Does the patient have a stroke diagnosis?: No VTE Prior VTE?: No VTE Risk Level:: Medical - moderate - high VTE Device Contraindication: Treatment Not Indicated VTE Drug Contraindication: N/A - Med Ordered Assessment and Plan (1) Crohn's colitis: Status: Acute Assessment and Plan: 50F presented with abdominal pain and diarrhea crohns flare continue steroids, pain control cdif negative empiric antibiotics, ivf until po intake increases still with pain plan for colonoscopy today thrush nystatin asthma stable inhalers htn doxazosin amlodipine depression antidepressants
[2021-03-06] MEDS: levoFLOXacin/D5W 500 MG/100 ML PIGGYBACK 100 MG IV (11:51)
--- NOTE | 2021-03-06 14:09 | HO.ANESPROP2 ---
HPI - Anesthesia Eval Consult details Narrative: Crohns Disease PMFSH Active Problems Active Problems: All Active Problems (Updated 03/04/21 @ 14:36 by Libby Palafox MD) Abdominal pain (Acute) Rheumatoid arthritis (Acute) Crohn's colitis (Acute) Hyperlipidemia (Acute) HTN (hypertension) (Acute) Depression (Acute) Chronic headache (Acute) Asthma (Acute) Vitamin D deficiency (Acute) Past Medical History Medical History Cancer Crohn's colitis Depression Hemorrhagic cyst of ovary HTN (hypertension) Hyperlipidemia Iron deficiency anemia Kidney stones Migraine Rheumatoid arthritis Surgical History Surgical History Hx of colonoscopy (~12/2019) Hx of colonoscopy (~10/2018) Hx of endoscopy Social History Social History Household Members: None Housing: Apartment Do you presently have visiting nurse or other home services: Yes ([facility]) Alcohol intake: never Patient Tobacco Use Status: Never used Tobacco service: No Current occupational status: disabled Meds Allergies Allergy/AdvReac Type Severity Reaction Status Date / Time aspirin [ASA] Allergy Intermediate RASH Verified 11/17/20 15:07 azathioprine [From IMURAN] Allergy Intermediate PANCREATIC Verified 11/17/20 15:07 INFLAMMATION ibuprofen [IBUPROFEN] Allergy Intermediate TOLD NOT Verified 11/17/20 15:07 TO TAKE levofloxacin [From LEVAQUIN] Allergy Mild YEAST Verified 11/17/20 15:07 INFECTIONS Active Medications: Current Medications Generic Name Dose Route Start Last Admin Trade Name Poncho PRN Reason Stop Dose Admin Acetaminophen 650 mg 03/01/21 13:04 03/06/21 01:57 Acetaminophen 325 Mg Tablet PO 650 mg Q6H PRN Administration Pain, Mild (Pain Scale 1-3) Albuterol Sulfate 2 puff 03/01/21 13:01 Albuterol Sulfate 90 Mcg 8 Gm Inhaler INHALE QID PRN Shortness Of Breath Amitriptyline HCl 50 mg 03/01/21 21:00 03/05/21 20:23 Amitriptyline Hcl 25 Mg Tablet PO 50 mg BEDTIME JUANCHO Administration Amlodipine Besylate 10 mg 03/01/21 13:15 03/06/21 08:09 Amlodipine Besylate 10 Mg Tablet PO 10 mg DAILY JUANCHO Administration Protocol Artificial Tears 1 drop 03/01/21 13:01 Artificial Tears 15 Ml Drops EYE-BOTH QID PRN Dry Eye(S) Buspirone HCl 5 mg 03/02/21 09:00 03/06/21 08:09 Buspirone Hcl 5 Mg Tablet PO 5 mg DAILY JUANCHO Administration Calcium Carbonate 750 mg 03/01/21 17:30 03/06/21 08:22 Calcium Carbonate 750 Mg Tab.Chew PO Not Given BIDPC JUANCHO Clonazepam 0.5 mg 03/02/21 09:00 03/06/21 08:09 Clonazepam 0.5 Mg Tablet PO 0.5 mg DAILY JUANCHO Administration Docusate Sodium 100 mg 03/01/21 13:01 Docusate Sodium 100 Mg Capsule PO BID PRN Constipation Doxazosin Mesylate 2 mg 03/01/21 21:00 03/05/21 20:24 Doxazosin Mesylate 2 Mg Tablet PO 2 mg BEDTIME JUANCHO Administration Protocol Enoxaparin Sodium 40 mg 03/05/21 08:00 03/05/21 11:21 Enoxaparin Sodium 40 Mg/0.4 Ml Syringe SUBCUT Not Given Q24H JUANCHO Ergocalciferol 1,250 mcg 03/07/21 09:00 Ergocalciferol (Vitamin D2) 1,250 Mcg Capsule PO We@0900 JUANCHO Fluticasone/Vilanterol 1 puff 03/02/21 08:00 03/06/21 08:59 Fluticasone/Vilanterol 200/25 Blst.W.Dev INHALE 1 puff RDAILY JUANCHO Administration Hydromorphone HCl 0.5 mg 03/01/21 13:04 03/06/21 12:57 Hydromorphone Hcl 0.5 Mg/0.5 Ml Syringe IVPUSH 0.5 mg Q4H PRN Administration Pain, Severe (Pain Scale 7-10) Lactated Ringer's 1,000 mls @ 80 mls/hr 03/01/21 13:30 03/06/21 03:23 Lr IVCONT 80 mls/hr .[id number] JUANCHO Administration Metronidazole 500 mg in 100 mls @ 100 mls/hr 03/01/21 13:30 03/06/21 08:14 Flagyl IV Infused Q8H JUANCHO Infusion Levofloxacin 500 mg in 100 mls @ 100 mls/hr 03/02/21 12:00 03/06/21 12:53 Levaquin IV Infused Q24H JUANCHO Infusion Methylprednisolone Sodium Succinate 40 mg 03/02/21 09:00 03/06/21 08:10 Methylprednisolone Sod Succ 40 Mg/Ml Vial IVPUSH 40 mg DAILY JUANCHO Administration Montelukast Sodium 10 mg 03/01/21 21:00 03/05/21 20:23 Montelukast Sodium 10 Mg Tablet PO 10 mg BEDTIME JUANCHO Administration Multivitamins/Vitamin C 1 tab 03/01/21 13:15 03/06/21 08:14 Multivitamin Tablet PO Not Given DAILY [facility] Nystatin 200,000 unit 03/06/21 09:00 03/06/21 13:31 Nystatin Oral Susp 500,000 Unit/5 Ml Oral.Susp PO Not Given QID [facility] Protocol Ondansetron HCl 4 mg 03/01/21 15:16 03/01/21 18:07 Ondansetron Hcl 4 Mg/2 Ml Vial IVPUSH 4 mg Q8H PRN Administration nausea Pantoprazole Sodium 40 mg 03/04/21 16:30 03/06/21 06:30 Pantoprazole Sodium 40 Mg/10 Ml Vial IVPUSH 40 mg BID@0630,1630 JUANCHO Administration Paroxetine HCl 40 mg 03/01/21 13:15 03/06/21 08:09 Paroxetine Hcl 40 Mg Tablet PO 40 mg DAILY JUANCHO Administration Pharmacy Consult 1 each 03/01/21 10:05 Consult Rx Perform Med Rec MISCELLANE ONCE PRN Consult order Polyethylene Glycol 17 gm 03/04/21 09:15 03/06/21 08:14 Polyethylene Glycol 3350 17 Gm Powd.Pack PO Not Given DAILY [facility] Sodium Chloride 3 ml 03/01/21 16:00 03/06/21 08:14 0.9 % Sodium Chloride Flush 3 Ml Syringe IVFLUSH Not Given QSHIFT [facility] Topiramate 100 mg 03/01/21 21:00 03/06/21 08:09 Topiramate 100 Mg Tablet PO 100 mg BID JUANCHO Administration Tramadol HCl 50 mg 03/01/21 13:01 03/06/21 00:41 Tramadol Hcl 50 Mg Tablet PO 50 mg BID PRN Administration Pain Zolpidem Tartrate 5 mg 03/01/21 21:00 03/05/21 20:24 Zolpidem Tartrate 5 Mg Tablet PO 5 mg BEDTIME JUANCHO Administration Home Medications Medication Instructions Recorded Confirmed Last Taken Type amitriptyline 2 tab PO BEDTIME 10/05/20 03/01/21 02/28/21 History amlodipine 1 tab PO QAM 10/05/20 03/01/21 02/28/21 History budesonide-formoterol [Symbicort] 2 puff PO BID 10/05/20 03/01/21 02/28/21 History calcium carbonate-vitamin D3 1 tab PO BID 10/05/20 03/01/21 02/28/21 History clonazepam 1 tab PO DAILY 10/05/20 03/01/21 02/28/21 History docusate sodium [DOK] 1 cap PO BID PRN 10/05/20 03/01/21 10/05/20 History doxazosin 1 tab PO BEDTIME 10/05/20 03/01/21 02/28/21 History ergocalciferol (vitamin D2) 1 cap PO QWEEK 10/05/20 03/01/21 02/21/21 History methotrexate sodium 10 tab PO QWEEK 10/05/20 03/01/21 02/20/21 History montelukast 1 tab PO BEDTIME 10/05/20 03/01/21 02/28/21 History multivitamin 1 tab PO QAM 10/05/20 03/01/21 02/28/21 History paroxetine HCl 1 tab PO QAM 10/05/20 03/01/21 02/28/21 History topiramate 1 tab PO BID 10/05/20 03/01/21 02/28/21 History tramadol 1 tab PO BID PRN 10/05/20 03/01/21 10/05/20 History zolpidem 1 tab PO BEDTIME 10/05/20 03/01/21 02/28/21 History albuterol sulfate 2 puff PO QID PRN 03/01/21 03/01/21 Unknown History buspirone 1 tab PO DAILY 03/01/21 03/01/21 02/28/21 History calcium carbonate [Tums E-X] 600 mg PO BIDPC 03/01/21 03/01/21 02/28/21 History lidocaine 1 patch TOPICAL DAILY 03/01/21 03/01/21 02/28/21 History polyvinyl alcohol [Artificial 1 drp OPHTHALMIC (EYE) QID PRN 03/01/21 03/01/21 Unknown History Tears (polyvin alc)] Exam Exam Date and Time: March 06, 2021 1409 Height,Weight and Vital Signs: Height 5 ft 2 in Weight 84.6 kg Last Vital Signs Temp 98.1 F 03/06/21 13:39 Pulse 80 03/06/21 13:39 Resp 16 03/06/21 13:39 BP 123/79 03/06/21 13:39 Pulse Ox 98 03/06/21 13:39 Pertinent Lab Results Pertinent Lab Results: Laboratory Tests 03/01/21 03/01/21 03/01/21 10:01 10:09 10:09 WBC RBC Hgb Hct MCV MCH MCHC RDW Plt Count MPV Immature Gran % (Auto) Neut % (Auto) Lymph % (Auto) Dickenson % (Auto) Eos % (Auto) Baso % (Auto) Lymph # (Auto) Dickenson # (Auto) Eos # (Auto) Baso # (Auto) Abs Immat Gran (auto) Absolute Neuts (auto) Absolute Nucleated RBC Nucleated RBC % (auto) Smear Tech's Comments PT 11.3 INR 1.0 Sodium 141 Potassium 3.6 Chloride 105 Carbon Dioxide 23 Anion Gap 17 BUN 16 Creatinine 0.90 Estim Creat Clear Calc 75.4 Estimated GFR > 60 Random Glucose 138 H D Fasting Glucose Lactic Acid Calcium 9.9 Magnesium 2.2 Total Bilirubin 0.4 AST 19 D ALT 17 Alkaline Phosphatase 136 H D C-Reactive Protein Total Protein 8.4 H Albumin 4.7 Lipase 13 Beta HCG, Quant < 2 Urine Color YELLOW Urine Appearance HAZY Urine pH 6.5 Ur Specific [place] 1.010 Urine Protein 1+ H Urine Glucose (UA) 100 H Urine Ketones NEG Urine Blood TRACE Urine Nitrite NEG Ur Leukocyte Esterase NEG Urine RBC 5-9 H Urine WBC 0-2 Ur Squamous Epith Cells TRACE Amorphous Sediment 2+ Urine Bacteria TRACE C. difficile Tox B Gene COVID-19 (SHAAN) COVID-19 Clin Com 03/01/21 03/01/21 03/01/21 10:10 10:10 13:07 WBC 14.4 H RBC 5.40 Hgb 14.9 Hct 45.8 MCV 84.8 MCH 27.6 MCHC 32.5 RDW 15.4 Plt Count 281 MPV 11.7 Immature Gran % (Auto) 0.2 Neut % (Auto) 91.5 H Lymph % (Auto) 4.2 L Dickenson % (Auto) 3.8 Eos % (Auto) 0.1 Baso % (Auto) 0.2 Lymph # (Auto) 0.6 L Dickenson # (Auto) 0.6 Eos # (Auto) 0.0 Baso # (Auto) 0.0 Abs Immat Gran (auto) 0.03 Absolute Neuts (auto) 13.1 H Absolute Nucleated RBC 0.000 Nucleated RBC % (auto) 0.0 Smear Tech's Comments VERIFIED PT INR Sodium Potassium Chloride Carbon Dioxide Anion Gap BUN Creatinine Estim Creat Clear Calc Estimated GFR Random Glucose Fasting Glucose Lactic Acid 0.8 Calcium Magnesium Total Bilirubin AST ALT Alkaline Phosphatase C-Reactive Protein Total Protein Albumin Lipase Beta HCG, Quant Urine Color Urine Appearance Urine pH Ur Specific [place] Urine Protein Urine Glucose (UA) Urine Ketones Urine Blood Urine Nitrite Ur Leukocyte Esterase Urine RBC Urine WBC Ur Squamous Epith Cells Amorphous Sediment Urine Bacteria C. difficile Tox B Gene COVID-19 (SHAAN) Negative COVID-19 Clin Com See Note 03/01/21 03/02/21 03/02/21 14:16 05:34 05:34 WBC 10.3 RBC 4.35 Hgb 12.0 Hct 37.2 MCV 85.5 MCH 27.6 MCHC 32.3 RDW 15.3 Plt Count 234 MPV 11.8 Immature Gran % (Auto) Neut % (Auto) Lymph % (Auto) Dickenson % (Auto) Eos % (Auto) Baso % (Auto) Lymph # (Auto) Dickenson # (Auto) Eos # (Auto) Baso # (Auto) Abs Immat Gran (auto) Absolute Neuts (auto) Absolute Nucleated RBC 0.000 Nucleated RBC % (auto) 0.0 Smear Tech's Comments PT INR Sodium 139 Potassium 3.8 Chloride 108 Carbon Dioxide 22 Anion Gap 13 BUN 12 Creatinine 0.79 Estim Creat Clear Calc 85.9 Estimated GFR > 60 Random Glucose 108 Fasting Glucose Lactic Acid Calcium 9.0 D Magnesium Total Bilirubin AST ALT Alkaline Phosphatase C-Reactive Protein Total Protein Albumin Lipase Beta HCG, Quant Urine Color Urine Appearance Urine pH Ur Specific [place] Urine Protein Urine Glucose (UA) Urine Ketones Urine Blood Urine Nitrite Ur Leukocyte Esterase Urine RBC Urine WBC Ur Squamous Epith Cells Amorphous Sediment Urine Bacteria C. difficile Tox B Gene NEGATIVE COVID-19 (SHAAN) COVID-19 Clin Com 03/02/21 03/04/21 03/04/21 05:34 06:16 06:16 WBC 8.0 RBC 4.31 Hgb 11.7 L Hct 37.5 MCV 87.0 MCH 27.1 MCHC 31.2 RDW 15.0 Plt Count 237 MPV 12.1 Immature Gran % (Auto) Neut % (Auto) Lymph % (Auto) Dickenson % (Auto) Eos % (Auto) Baso % (Auto) Lymph # (Auto) Dickenson # (Auto) Eos # (Auto) Baso # (Auto) Abs Immat Gran (auto) Absolute Neuts (auto) Absolute Nucleated RBC 0.000 Nucleated RBC % (auto) 0.0 Smear Tech's Comments PT INR Sodium 140 Potassium 3.7 Chloride 109 H Carbon Dioxide 25 Anion Gap 10 L BUN 12 Creatinine 0.82 Estim Creat Clear Calc 82.8 Estimated GFR > 60 Random Glucose Fasting Glucose 84 Lactic Acid Calcium 8.9 Magnesium Total Bilirubin AST ALT Alkaline Phosphatase C-Reactive Protein 2.87 H Total Protein Albumin Lipase Beta HCG, Quant Urine Color Urine Appearance Urine pH Ur Specific [place] Urine Protein Urine Glucose (UA) Urine Ketones Urine Blood Urine Nitrite Ur Leukocyte Esterase Urine RBC Urine WBC Ur Squamous Epith Cells Amorphous Sediment Urine Bacteria C. difficile Tox B Gene COVID-19 (SHAAN) COVID-19 Clin Com 03/05/21 03/05/21 03/06/21 06:52 06:52 05:59 WBC 8.5 11.2 H RBC 4.46 4.40 Hgb 12.3 12.2 Hct 39.0 37.5 MCV 87.4 85.2 MCH 27.6 27.7 MCHC 31.5 32.5 RDW 15.0 15.0 Plt Count 226 225 MPV 11.9 11.5 Immature Gran % (Auto) Neut % (Auto) Lymph % (Auto) Dickenson % (Auto) Eos % (Auto) Baso % (Auto) Lymph # (Auto) Dickenson # (Auto) Eos # (Auto) Baso # (Auto) Abs Immat Gran (auto) Absolute Neuts (auto) Absolute Nucleated RBC 0.000 0.000 Nucleated RBC % (auto) 0.0 0.0 Smear Tech's Comments PT INR Sodium 139 Potassium 3.6 Chloride 109 H Carbon Dioxide 23 Anion Gap 11 L BUN 11 Creatinine 0.82 Estim Creat Clear Calc 82.8 Estimated GFR > 60 Random Glucose Fasting Glucose 77 Lactic Acid Calcium 8.7 Magnesium Total Bilirubin AST ALT Alkaline Phosphatase C-Reactive Protein 0.15 Total Protein Albumin Lipase Beta HCG, Quant Urine Color Urine Appearance Urine pH Ur Specific [place] Urine Protein Urine Glucose (UA) Urine Ketones Urine Blood Urine Nitrite Ur Leukocyte Esterase Urine RBC Urine WBC Ur Squamous Epith Cells Amorphous Sediment Urine Bacteria C. difficile Tox B Gene COVID-19 (SHAAN) COVID-19 Clin Com 03/06/21 05:59 WBC RBC Hgb Hct MCV MCH MCHC RDW Plt Count MPV Immature Gran % (Auto) Neut % (Auto) Lymph % (Auto) Dickenson % (Auto) Eos % (Auto) Baso % (Auto) Lymph # (Auto) Dickenson # (Auto) Eos # (Auto) Baso # (Auto) Abs Immat Gran (auto) Absolute Neuts (auto) Absolute Nucleated RBC Nucleated RBC % (auto) Smear Tech's Comments PT INR Sodium 139 Potassium 3.3 Chloride 107 Carbon Dioxide 23 Anion Gap 12 BUN 7 L Creatinine 0.83 Estim Creat Clear Calc 81.8 Estimated GFR > 60 Random Glucose Fasting Glucose 81 Lactic Acid Calcium 8.8 Magnesium Total Bilirubin AST ALT Alkaline Phosphatase C-Reactive Protein Total Protein Albumin Lipase Beta HCG, Quant Urine Color Urine Appearance Urine pH Ur Specific [place] Urine Protein Urine Glucose (UA) Urine Ketones Urine Blood Urine Nitrite Ur Leukocyte Esterase Urine RBC Urine WBC Ur Squamous Epith Cells Amorphous Sediment Urine Bacteria C. difficile Tox B Gene COVID-19 (SHAAN) COVID-19 Clin Com Airway Mallampati Class: II TM Dist: >3cm Neck ROM: Full Loose/Missing/Broken Teeth: Yes Heart: rrr +[id number] Lungs: cta b/l Assessment and Plan Assessment Anesthesia Assessment: Anesthesia Plan Discussed and Chart Reviewed Final Anesthetic Review NPO: Yes ASA Class: III Final Preanesthetic Review: No Changes in Pt Med Stat, Meds/Allgs Chart Reviewed, Consent Obtained/Reviewed and Anes Risks/Benef Reviewed Patient Risk: Intermediate Procedure Risk: Low Assessment/Block/Sedation in SS: Assess/Block/Sedation-SS Anesthetic Plan Anesthetic Plan: MAC: and Agree w/ Assess. and Plan Disposition: Standard PACU
--- NOTE | 2021-03-06 14:19 | MHC.SHP ---
Pre-Procedural Eval Section A Date of Service: 03/06/21 The patient is an INPATIENT: Yes Changes since office visit: Yes New Medical Problems, Yes Changes in Medication and Yes Patient answered all questions; No Cold of Flu in the past 2 weeks The History & Physical has been completed within 30 days and I have reviewed it.: Yes Section B Chief Complaint: Crohns colitis Allergies: Allergies Allergy/AdvReac Type Severity Reaction Status Date / Time aspirin [ASA] Allergy Intermediate RASH Verified 11/17/20 15:07 azathioprine [From IMURAN] Allergy Intermediate PANCREATIC Verified 11/17/20 15:07 INFLAMMATION ibuprofen [IBUPROFEN] Allergy Intermediate TOLD NOT Verified 11/17/20 15:07 TO TAKE levofloxacin [From LEVAQUIN] Allergy Mild YEAST Verified 11/17/20 15:07 INFECTIONS Plan I have reviewed the history and physical and performed a pertinent physical examination on my patient. No changes have occurred unless specified.
[2021-03-06] MEDS: Calcium Carbonate 750 MG TAB.CHEW PO (16:57)
[2021-03-06] MEDS: Montelukast Sodium 10 MG TABLET PO (21:16)
[2021-03-06] MEDS: 0.9 % Sodium Chloride Flush 3 ML SYRINGE IVFLUSH (21:17)
[2021-03-06] MEDS: Zolpidem Tartrate 5 MG TABLET PO (21:17)
[2021-03-06] MEDS: Amitriptyline HCl 25 MG TABLET 50 MG PO (21:17)
[2021-03-06] MEDS: Doxazosin Mesylate 2 MG TABLET PO (21:17)
[2021-03-07] VITALS (7 sets, daily range): BP systolic 96–111; BP diastolic 58–69; PULSE 60–86; RESP 14–18; TEMP 36.2–36.6; O2SAT 92–99
[2021-03-07] MEDS: Pantoprazole Sodium 40 MG/10 ML VIAL IVPUSH ×2 (05:48→16:25)
[2021-03-07] MEDS: HYDROmorphone HCl 0.5 MG/0.5 ML SYRINGE IVPUSH ×2 (05:48→10:24)
[2021-03-07 06:16] LABS: Hematocrit 36.7 % (37-47); Hemoglobin 11.8 g/dl (12.0-16.0); Mean Corpuscular HGB Conc 32.2 g/dl (31.0-35.0); Mean Corpuscular Hemoglobin 27.7 pg (27.0-33.0); Mean Corpuscular Volume 86.2 fL (80-98); Mean Platelet Volume 11.7 fL (9.4-12.3); Platelet Count 240 X10*3/uL (160-400); Red Blood Count 4.26 X10*6/uL (4.20-5.50); Red Cell Distribution Width 15.2 % (11.0-16.0)
[2021-03-07 07:01] LABS: Anion Gap 12 (12-20); Blood Urea Nitrogen 11 mg/dL (9-16); Calcium 8.3 mg/dL (8.4-10.2); Carbon Dioxide 24 mmol/L (22-29); Chloride 108 mmol/L (96-108); Creatinine Clr Calc Pharmacy 79.8; Estimated Glomerular Filt Rate > 60; Glucose Fasting 106 mg/dL (60-99); Magnesium 2.1 mg/dL (1.6-2.6); Sodium 141 mmol/L (135-145)
[2021-03-07] MEDS: busPIRone HCl 5 MG TABLET PO (08:06)
[2021-03-07] MEDS: Calcium Carbonate 750 MG TAB.CHEW PO ×2 (08:06→16:25)
[2021-03-07] MEDS: predniSONE 20 MG TABLET 40 MG PO (08:06)
[2021-03-07] MEDS: Ergocalciferol (Vitamin D2) 1,250 MCG CAPSULE 1250 MCG PO (08:06)
[2021-03-07] MEDS: Fluconazole 100 MG TABLET 400 MG PO (08:07)
[2021-03-07] MEDS: Potassium Chloride ER 20 MEQ TAB.ER.PRT 40 MEQ PO (08:07)
[2021-03-07] MEDS: Enoxaparin Sodium 40 MG/0.4 ML SYRINGE SUBCUT (08:07)
[2021-03-07] MEDS: amLODIPine Besylate 10 MG TABLET PO (08:07)
[2021-03-07] MEDS: clonazePAM 0.5 MG TABLET PO (08:07)
[2021-03-07] MEDS: Topiramate 100 MG TABLET PO ×2 (08:07→21:53)
[2021-03-07] MEDS: PARoxetine HCL 40 MG TABLET PO (08:07)
[2021-03-07] MEDS: polyethylene glycoL 3350 17 GM POWD.PACK PO (08:07)
[2021-03-07] MEDS: Multivitamin TABLET 1 TAB PO (08:13)
--- NOTE | 2021-03-07 13:59 | HO.PM.IMPN ---
Subjective Subjective Date of Service: 03/07/21 Interval History: the patient was seen and evaluated this morning Laying in bed, still complaining of abdominal pain Reporting vomiting yesterday with ability to eat small amount of food Denies any fever, chills or shortness of breath No reported other overnight events. Systemic review: No fever, chills or weakness No chest pain, palpitation No shortness of breath or coughing Still complaining of abdominal pain associated with nausea or vomiting No urinary symptoms No any rash or wounds Physical Exam Vital Signs: Vital Signs: Last Vital Signs Temp 97.5 F 03/07/21 12:00 Pulse 86 03/07/21 12:00 Resp 17 03/07/21 12:00 BP 109/65 03/07/21 12:00 Pulse Ox 99 03/07/21 12:00 Body Mass Index 34.1 Const: Other: Constitutional : Alert, oriented, looks tired Neck : Normal inspection, Supple Cardiovascular : RRR, S1 S2, no lower extremity edema Respiratory : Good bilateral air entry, no crackles, wheezes or rhonchi Gastrointestinal: soft, lax, Normal bowel sounds, generalized tenderness with no surgical signs Skin : Warm/Dry, No rash Neurological : Alert & oriented x3, No focal deficit Objective Data Current Medications Generic Name Dose Route Start Last Admin Trade Name Freq PRN Reason Stop Dose Admin Acetaminophen 650 mg 03/01/21 13:04 03/06/21 01:57 Acetaminophen 325 Mg Tablet PO 650 mg Q6H PRN Administration Pain, Mild (Pain Scale 1-3) Acetaminophen 650 mg 03/06/21 14:11 Acetaminophen 325 Mg Tablet PO ONCE PRN Pain, Mild (Pain Scale 1-3) Acetaminophen 650 mg 03/07/21 12:00 03/07/21 12:44 Acetaminophen 325 Mg Tablet PO Not Given Q6H JUANCHO Albuterol Sulfate 2 puff 03/01/21 13:01 Albuterol Sulfate 90 Mcg 8 Gm Inhaler INHALE QID PRN Shortness Of Breath Amitriptyline HCl 50 mg 03/01/21 21:00 03/06/21 21:17 Amitriptyline Hcl 25 Mg Tablet PO 50 mg BEDTIME JUANCHO Administration Amlodipine Besylate 10 mg 03/01/21 13:15 03/07/21 08:07 Amlodipine Besylate 10 Mg Tablet PO 10 mg DAILY JUANCHO Administration Protocol Artificial Tears 1 drop 03/01/21 13:01 Artificial Tears 15 Ml Drops EYE-BOTH QID PRN Dry Eye(S) Buspirone HCl 5 mg 03/02/21 09:00 03/07/21 08:06 Buspirone Hcl 5 Mg Tablet PO 5 mg DAILY JUANCHO Administration Calcium Carbonate 750 mg 03/01/21 17:30 03/07/21 08:06 Calcium Carbonate 750 Mg Tab.Chew PO 750 mg BIDPC JUANCHO Administration Clonazepam 0.5 mg 03/02/21 09:00 03/07/21 08:07 Clonazepam 0.5 Mg Tablet PO 0.5 mg DAILY JUANCHO Administration Docusate Sodium 100 mg 03/01/21 13:01 Docusate Sodium 100 Mg Capsule PO BID PRN Constipation Doxazosin Mesylate 2 mg 03/01/21 21:00 03/06/21 21:17 Doxazosin Mesylate 2 Mg Tablet PO 2 mg BEDTIME JUANCHO Administration Protocol Enoxaparin Sodium 40 mg 03/05/21 08:00 03/07/21 08:07 Enoxaparin Sodium 40 Mg/0.4 Ml Syringe SUBCUT 40 mg Q24H JUANCHO Administration Ergocalciferol 1,250 mcg 03/07/21 09:00 03/07/21 08:06 Ergocalciferol (Vitamin D2) 1,250 Mcg Capsule PO 1,250 mcg We@0900 [facility] Administration Fluconazole 400 mg 03/07/21 09:00 03/07/21 08:07 Fluconazole 100 Mg Tablet PO 400 mg DAILY JUANCHO Administration Fluticasone/Vilanterol 1 puff 03/02/21 08:00 03/07/21 13:49 Fluticasone/Vilanterol 200/25 Blst.W.Dev INHALE Not Given RDAILY [facility] Montelukast Sodium 10 mg 03/01/21 21:00 03/06/21 21:16 Montelukast Sodium 10 Mg Tablet PO 10 mg BEDTIME [facility] Administration Multivitamins/Vitamin C 1 tab 03/01/21 13:15 03/07/21 08:13 Multivitamin Tablet PO 1 tab DAILY JUANCHO Administration Ondansetron HCl 4 mg 03/01/21 15:16 03/01/21 18:07 Ondansetron Hcl 4 Mg/2 Ml Vial IVPUSH 4 mg Q8H PRN Administration nausea Ondansetron HCl 4 mg 03/06/21 14:11 Ondansetron Hcl 4 Mg/2 Ml Vial IVPUSH ONCE PRN Nausea and Vomiting Pantoprazole Sodium 40 mg 03/04/21 16:30 03/07/21 05:48 Pantoprazole Sodium 40 Mg/10 Ml Vial IVPUSH 40 mg BID@0630,1630 JUANCHO Administration Paroxetine HCl 40 mg 03/01/21 13:15 03/07/21 08:07 Paroxetine Hcl 40 Mg Tablet PO 40 mg DAILY JUANCHO Administration Pharmacy Consult 1 each 03/01/21 10:05 Consult Rx Perform Med Rec MISCELLANE ONCE PRN Consult order Polyethylene Glycol 17 gm 03/04/21 09:15 03/07/21 08:07 Polyethylene Glycol 3350 17 Gm Powd.Pack PO 17 gm DAILY JUANCHO Administration Prednisone 40 mg 03/07/21 09:00 03/07/21 08:06 Prednisone 20 Mg Tablet PO 40 mg DAILY JUANCHO Administration Sodium Chloride 3 ml 03/01/21 16:00 03/07/21 08:08 0.9 % Sodium Chloride Flush 3 Ml Syringe IVFLUSH Not Given QSHIFT [facility] Topiramate 100 mg 03/01/21 21:00 03/07/21 08:07 Topiramate 100 Mg Tablet PO 100 mg BID JUANCHO Administration Tramadol HCl 50 mg 03/07/21 11:53 Tramadol Hcl 50 Mg Tablet PO Q4H PRN Pain Zolpidem Tartrate 5 mg 03/01/21 21:00 03/06/21 21:17 Zolpidem Tartrate 5 Mg Tablet PO 5 mg BEDTIME JUANCHO Administration Labs CBC & Chem 7: 03/07/21 05:41 03/07/21 05:41 Labs: Laboratory Results - last 24 hr 03/07/21 03/07/21 05:41 05:41 WBC 11.0 H RBC 4.26 Hgb 11.8 L Hct 36.7 L MCV 86.2 MCH 27.7 MCHC 32.2 RDW 15.2 Plt Count 240 MPV 11.7 Absolute Nucleated RBC 0.000 Nucleated RBC % (auto) 0.0 Sodium 141 Potassium 3.0 L Chloride 108 Carbon Dioxide 24 Anion Gap 12 BUN 11 D Creatinine 0.85 Estim Creat Clear Calc 79.8 Estimated GFR > 60 Fasting Glucose 106 H Calcium 8.3 L Magnesium 2.1 Microbiology Microbiology Results: Microbiology 03/01/21 13:15 Blood Culture - Final Blood - Venous No growth after 5 days. 03/01/21 13:06 Blood Culture - Final Blood - Venous No growth after 5 days. Quality Stroke Does the patient have a stroke diagnosis?: No VTE Prior VTE?: No VTE Risk Level:: Medical - moderate - high VTE Device Contraindication: Treatment Not Indicated VTE Drug Contraindication: N/A - Med Ordered Assessment and Plan (1) Crohn's colitis: Status: Acute Assessment and Plan: 50F presented with abdominal pain and diarrhea crohns flare continue steroids, pain control Discontinue IV fluids empiric antibiotics Colonoscopy negative for any acute findings Advanced diet as tolerated thrush nystatin asthma stable inhalers htn doxazosin amlodipine depression antidepressants
[2021-03-07] MEDS: traMADoL HCL 50 MG TABLET PO ×2 (14:30→19:31)
--- NOTE | 2021-03-07 15:06 | HO.POSTANES ---
Post Anesthesia Evaluation Post Anesthesia Evaluation Vital Signs: Vital Signs Temp Pulse Resp BP Pulse Ox 03/07/21 14:11 98 03/07/21 12:00 97.5 F 86 17 109/65 99 03/07/21 07:13 97.2 F 70 17 99/64 98 03/07/21 03:36 97.3 F 60 16 111/59 L 93 Anesthesia: Monitored Mental Status: Awake Pain Control: Satisfactory Nausea/Vomiting: Mild Hydration: Adequate Anesthesia-Related Issues: No Anes. Related Issues
[2021-03-07] MEDS: 0.9 % Sodium Chloride Flush 3 ML SYRINGE IVFLUSH ×2 (15:23→21:55)
[2021-03-07] MEDS: ondansetron HCL 4 MG/2 ML VIAL IVPUSH (17:19)
[2021-03-07] MEDS: Zolpidem Tartrate 5 MG TABLET PO (21:53)
[2021-03-07] MEDS: Montelukast Sodium 10 MG TABLET PO (21:53)
[2021-03-07] MEDS: Amitriptyline HCl 25 MG TABLET 50 MG PO (21:53)
[2021-03-08] VITALS (9 sets, daily range): BP systolic 91–128; BP diastolic 58–79; PULSE 66–109; RESP 15–17; TEMP 36.2–37; O2SAT 96–100
[2021-03-08] MEDS: Acetaminophen 325 MG TABLET 650 MG PO ×2 (00:13→11:40)
[2021-03-08] MEDS: traMADoL HCL 50 MG TABLET PO ×3 (00:13→16:31)
--- NOTE | 2021-03-08 01:24 | MHC.CARE ---
Altaf- [facility]en nurse contacted me at 2300 reporting that pt was in distress and requested a SW. T/W went to check in with her and she was sleeping. Further details regarding pt's presentation or request is unknown.
[2021-03-08 06:50] LABS: Anion Gap 10 (12-20); Blood Urea Nitrogen 10 mg/dL (9-16); Calcium 8.5 mg/dL (8.4-10.2); Carbon Dioxide 23 mmol/L (22-29); Chloride 109 mmol/L (96-108); Creatinine Clr Calc Pharmacy 82.8; Estimated Glomerular Filt Rate > 60; Glucose Random 80 mg/dL (60-115); Potassium 3.2 mmol/L (3.3-5.1); Sodium 139 mmol/L (135-145)
[2021-03-08] MEDS: Fluticasone/Vilanterol 200/25 BLST.W.DEV 1 PUFF INHALE (07:47)
[2021-03-08] MEDS: busPIRone HCl 5 MG TABLET PO (08:11)
[2021-03-08] MEDS: PARoxetine HCL 40 MG TABLET PO (08:11)
[2021-03-08] MEDS: clonazePAM 0.5 MG TABLET PO (08:12)
[2021-03-08] MEDS: predniSONE 20 MG TABLET 40 MG PO (08:12)
[2021-03-08] MEDS: Calcium Carbonate 750 MG TAB.CHEW PO ×2 (08:12→16:28)
[2021-03-08] MEDS: Fluconazole 100 MG TABLET 400 MG PO (08:12)
[2021-03-08] MEDS: Enoxaparin Sodium 40 MG/0.4 ML SYRINGE SUBCUT (08:12)
[2021-03-08] MEDS: Multivitamin TABLET 1 TAB PO (08:12)
[2021-03-08] MEDS: Topiramate 100 MG TABLET PO ×2 (08:12→21:19)
[2021-03-08] MEDS: polyethylene glycoL 3350 17 GM POWD.PACK PO (08:12)
[2021-03-08] MEDS: 0.9 % Sodium Chloride Flush 3 ML SYRINGE IVFLUSH ×2 (08:13→16:29)
--- NOTE | 2021-03-08 09:53 | MHC.IC ---
Last admission, jail reported that pt had MRSA in wound. Discussed with ANTONIO Busby. Pt will be placed on contact precautions for history of MRSA
--- NOTE | 2021-03-08 10:40 | P.DS_ITS ---
DS: Providers Provider Date of Service: 03/08/21 Date of admission: 03/01/21 13:04 Primary care physician: Leesa Wasserman MD Consults: 03/01/21 13:04 Consult to Gastroenterology Routine Consulting Provider: Libby Wolf Reason for consultation: ibd 03/07/21 22:59 Consult to Crisis Stat Reason for consultation: pt upset and stressed out about her medical condi tion and family matters Has provider been notified: No DS: Diagnosis Discharge Diagnosis (1) Crohn's colitis: Status: Acute (2) Abdominal pain: Status: Acute DS: Medications Discharge Medications Home Medications: Home Medications Medication Instructions Recorded Confirmed amitriptyline 2 tab PO BEDTIME 10/05/20 03/01/21 amlodipine 1 tab PO QAM 10/05/20 03/01/21 budesonide-formoterol [Symbicort] 2 puff PO BID 10/05/20 03/01/21 calcium carbonate-vitamin D3 1 tab PO BID 10/05/20 03/01/21 clonazepam 1 tab PO DAILY 10/05/20 03/01/21 docusate sodium [DOK] 1 cap PO BID PRN 10/05/20 03/01/21 doxazosin 1 tab PO BEDTIME 10/05/20 03/01/21 ergocalciferol (vitamin D2) 1 cap PO QWEEK 10/05/20 03/01/21 methotrexate sodium 10 tab PO QWEEK 10/05/20 03/01/21 montelukast 1 tab PO BEDTIME 10/05/20 03/01/21 multivitamin 1 tab PO QAM 10/05/20 03/01/21 paroxetine HCl 1 tab PO QAM 10/05/20 03/01/21 topiramate 1 tab PO BID 10/05/20 03/01/21 tramadol 1 tab PO BID PRN 10/05/20 03/01/21 zolpidem 1 tab PO BEDTIME 10/05/20 03/01/21 albuterol sulfate 2 puff PO QID PRN 03/01/21 03/01/21 buspirone 1 tab PO DAILY 03/01/21 03/01/21 calcium carbonate [Tums E-X] 600 mg PO BIDPC 03/01/21 03/01/21 lidocaine 1 patch TOPICAL DAILY 03/01/21 03/01/21 polyvinyl alcohol [Artificial 1 drp OPHTHALMIC (EYE) QID PRN 03/01/21 03/01/21 Tears (polyvin alc)] Previous Rx's Medication Instructions Recorded vitamin B complex 1 tab PO DAILY 60 Days #60 tab 02/01/21 ustekinumab 90 mg/mL subcutaneous 90 mg SUBCUT Q4W 28 Days #1 ml 02/02/21 syringe budesonide 3 mg 9 mg PO DAILY 30 Days #90 ea 03/01/21 capsule,delayed,extended release fluconazole 100 mg PO DAILY 12 Days #12 tab 03/08/21 ondansetron 4 mg PO Q8H PRN #20 tab 03/08/21 polyethylene glycol 3350 17 g PO DAILY 10 Days ea 03/08/21 prednisone See Taper PO DAILY #70 tab 03/08/21 DS: Summary Hospital Course Hospital Course: Admission note HPI 50F presented with 4 days of abdominal pain, achy, worse with inspiration, associated with non bloody diarrhea, chills, without fever. patient has history of crohns, is on methotrexate and stelara. in 2019 she had multiple admissions, so far in 2020, she reports one flare in september, managed at home. in ed ct showed left and transverse colitis, she was given solumedrol, levaquin and flagyl Hospital course Patient was admitted to the hospital for treatment of Crohn's disease flare up. She was treated mainly with IV steroids, fluids antibiotics with good response over the course of hospital stay. She was evaluated by Gastroenterology who did a colonoscopy study which did not show any acute findings. Patient was able to tolerate diet slowly. Noticed to developed a thrush which was treated with nystatin mouthwash and Diflucan. Her blood pressure was noted to be running so secondary to usage of blood pressure medications. Amlodipine was held. To be discharged home on tapering dose of steroids and Diflucan. Time Spent with Patient Time attestation: Total time spent providing and/or coordinating discharge services: Discharge coordination time: Greater than 30 minutes Quality: Stroke Does the patient have a stroke diagnosis?: No Physical Exam Vital Signs: Vital Signs: Last Vital Signs Temp 97.5 F 03/08/21 08:00 Pulse 72 03/08/21 08:00 Resp 17 03/08/21 08:00 BP 100/61 03/08/21 08:00 Pulse Ox 98 03/08/21 08:00 Body Mass Index 34.1 Const: Other: Constitutional : Alert, oriented, not in distress Neck : Normal inspection, Supple Cardiovascular : RRR, S1 S2, no lower extremity edema Respiratory : Good bilateral air entry, no crackles, wheezes or rhonchi Gastrointestinal: soft, lax, Normal bowel sounds, Non tender Skin : Warm/Dry, No rash Neurological : Alert & oriented x3, No focal deficit DS: Data Data Completed and Pending Pending studies at discharge: Pending at discharge 03/06/21 15:01 Surgical [PTH] Routine Labs on day of discharge: Laboratory Results - last 24 hr 03/08/21 05:52 Sodium 139 Potassium 3.2 L Chloride 109 H Carbon Dioxide 23 Anion Gap 10 L BUN 10 Creatinine 0.82 Estim Creat Clear Calc 82.8 Estimated GFR > 60 Random Glucose 80 Calcium 8.5 Discharge Plan Discharge Patient Disposition: Home, Self-Care Discharge Diagnosis: Crohn's flare up Referrals: Leesa Rapp MD [Primary Care Provider] - 1 Week Discharge Medications: New fluconazole 100 mg Tablet 100 mg PO DAILY 12 Days Qty: 12 RF: 0 polyethylene glycol 3350 17 gram Powder In Packet 17 g PO DAILY 10 Days RF: 0 ondansetron 4 mg tablet,disintegrating 4 mg PO Q8H PRN (Reason: nausea and vomiting) Qty: 20 RF: 0 prednisone 10 mg tablet See Taper mg PO DAILY Qty: 70 RF: 0 Continued vitamin B complex Tablet 1 tab PO DAILY 60 Days Qty: 60 RF: 3 Stelara 90 mg/mL syringe 90 mg subcut Q4W 28 Days Qty: 1 RF: 3 budesonide 3 mg capsule,delayed,extend.release 9 mg PO DAILY 30 Days Qty: 90 RF: 3 multivitamin Tablet 1 tab PO QAM RF: 0 clonazepam 0.5 mg tablet 1 tab PO DAILY RF: 0 tramadol 50 mg tablet 1 tab PO BID PRN (Reason: Pain) RF: 0 amitriptyline 25 mg tablet 2 tab PO BEDTIME RF: 0 methotrexate sodium 2.5 mg tablet 10 tab PO QWEEK RF: 0 docusate sodium [DOK] 100 mg capsule 1 cap PO BID PRN (Reason: Constipation) RF: 0 montelukast 10 mg tablet 1 tab PO BEDTIME RF: 0 ergocalciferol (vitamin D2) 1,250 mcg (50,000 unit) capsule 1 cap PO QWEEK RF: 0 zolpidem 10 mg tablet 1 tab PO BEDTIME RF: 0 paroxetine HCl 40 mg tablet 1 tab PO QAM RF: 0 topiramate 100 mg tablet 1 tab PO BID RF: 0 doxazosin 2 mg tablet 1 tab PO BEDTIME RF: 0 calcium carbonate-vitamin D3 600 mg(1,500mg) -400 unit tablet 1 tab PO BID RF: 0 budesonide-formoterol [Symbicort] 160-4.5 mcg/actuation HFA aerosol inhaler 2 puff PO BID RF: 0 buspirone 5 mg tablet 1 tab PO DAILY RF: 0 polyvinyl alcohol [Artificial Tears (polyvin alc)] 1.4 % drops 1 drp ophthalmic (eye) QID PRN (Reason: Dry Eye(S)) RF: 0 calcium carbonate [Tums E-X] 300 mg (750 mg) Tablet,Chewable 600 mg PO BIDPC RF: 0 lidocaine 5 % adhesive patch,medicated 1 patch topical DAILY RF: 0 albuterol sulfate 90 mcg/actuation HFA aerosol inhaler 2 puff PO QID PRN (Reason: Shortness Of Breath) RF: 0 Held amlodipine 10 mg tablet 1 tab PO QAM RF: 0 Hold Instructions: Monitor BP at home before restarting it. Discharge Orders: Discharge Order (Routine); Ordered 03/08/21 Ordered By: Marcellus Cruz Diet: advance to usual diet Activity on Discharge: As tolerated Stand Alone Forms: Patient Portal Discharge page Care Plan Goals: Read below Health Concerns: Read below Plan of Treatment: You were admitted to the hospital for treatment of Crohn's flare up. Treated with IV fluids steroids with good response over the course of hospital stay as you were evaluated by hearing aid mechanic Dr. wolf who did a colonoscopy. You were noticed to have an oral thrush that was treated with Diflucan and nystatin mouthwash. Assessment: Hold amlodipine and monitor your blood pressure at home Continue prednisone tapering dose over the next few weeks Continue Diflucan as prescribed To follow-up with Gastroenterology as outpatient the
--- NOTE | 2021-03-08 11:36 | MHC.CM.PN ---
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
--- NOTE | 2021-03-08 12:40 | HO.PM.IMPN ---
Subjective Subjective Date of Service: 03/08/21 Interval History: the patient was seen and evaluated this morning Laying in bed, abdominal pain improved significantly Reporting vomiting yesterday for 2 episodes Reporting depression and low mood with no suicidal ideation Denies any fever, chills or shortness of breath No reported other overnight events. Systemic review: No fever, chills or weakness No chest pain, palpitation No shortness of breath or coughing Abdominal and pain is mild in No urinary symptoms No any rash or wounds Physical Exam Vital Signs: Vital Signs: Last Vital Signs Temp 98.1 F 03/08/21 11:59 Pulse 109 H 03/08/21 11:59 Resp 16 03/08/21 11:59 BP 128/78 03/08/21 11:59 Pulse Ox 100 03/08/21 11:59 Body Mass Index 34.1 Const: Other: Constitutional : Alert, oriented, not in distress Neck : Normal inspection, Supple Cardiovascular : RRR, S1 S2, no lower extremity edema Respiratory : Good bilateral air entry, no crackles, wheezes or rhonchi Gastrointestinal: soft, lax, Normal bowel sounds, Non tender Skin : Warm/Dry, No rash Neurological : Alert & oriented x3, No focal deficit Objective Data Current Medications Generic Name Dose Route Start Last Admin Trade Name Freq PRN Reason Stop Dose Admin Acetaminophen 650 mg 03/01/21 13:04 03/06/21 01:57 Acetaminophen 325 Mg Tablet PO 650 mg Q6H PRN Administration Pain, Mild (Pain Scale 1-3) Acetaminophen 650 mg 03/06/21 14:11 Acetaminophen 325 Mg Tablet PO ONCE PRN Pain, Mild (Pain Scale 1-3) Acetaminophen 650 mg 03/07/21 12:00 03/08/21 11:40 Acetaminophen 325 Mg Tablet PO 650 mg Q6H JUANCHO Administration Albuterol Sulfate 2 puff 03/01/21 13:01 Albuterol Sulfate 90 Mcg 8 Gm Inhaler INHALE QID PRN Shortness Of Breath Amitriptyline HCl 50 mg 03/01/21 21:00 03/07/21 21:53 Amitriptyline Hcl 25 Mg Tablet PO 50 mg BEDTIME JUANCHO Administration Artificial Tears 1 drop 03/01/21 13:01 Artificial Tears 15 Ml Drops EYE-BOTH QID PRN Dry Eye(S) Buspirone HCl 5 mg 03/02/21 09:00 03/08/21 08:11 Buspirone Hcl 5 Mg Tablet PO 5 mg DAILY JUANCHO Administration Calcium Carbonate 750 mg 03/01/21 17:30 03/08/21 08:12 Calcium Carbonate 750 Mg Tab.Chew PO 750 mg BIDPC JUANCHO Administration Clonazepam 0.5 mg 03/02/21 09:00 03/08/21 08:12 Clonazepam 0.5 Mg Tablet PO 0.5 mg DAILY JUANCHO Administration Docusate Sodium 100 mg 03/01/21 13:01 Docusate Sodium 100 Mg Capsule PO BID PRN Constipation Doxazosin Mesylate 2 mg 03/01/21 21:00 03/07/21 21:54 Doxazosin Mesylate 2 Mg Tablet PO Not Given BEDTIME [facility] Protocol Enoxaparin Sodium 40 mg 03/05/21 08:00 03/08/21 08:12 Enoxaparin Sodium 40 Mg/0.4 Ml Syringe SUBCUT 40 mg Q24H JUANCHO Administration Ergocalciferol 1,250 mcg 03/07/21 09:00 03/07/21 08:06 Ergocalciferol (Vitamin D2) 1,250 Mcg Capsule PO 1,250 mcg We@0900 JUANCHO Administration Fluconazole 400 mg 03/07/21 09:00 03/08/21 08:12 Fluconazole 100 Mg Tablet PO 400 mg DAILY JUANCHO Administration Fluticasone/Vilanterol 1 puff 03/02/21 08:00 03/08/21 07:47 Fluticasone/Vilanterol 200/25 Blst.W.Dev INHALE 1 puff RDAILY JUANCHO Administration Montelukast Sodium 10 mg 03/01/21 21:00 03/07/21 21:53 Montelukast Sodium 10 Mg Tablet PO 10 mg BEDTIME JUANCHO Administration Multivitamins/Vitamin C 1 tab 03/01/21 13:15 03/08/21 08:12 Multivitamin Tablet PO 1 tab DAILY JUANCHO Administration Ondansetron HCl 4 mg 03/01/21 15:16 03/07/21 17:19 Ondansetron Hcl 4 Mg/2 Ml Vial IVPUSH 4 mg Q8H PRN Administration nausea Ondansetron HCl 4 mg 03/06/21 14:11 Ondansetron Hcl 4 Mg/2 Ml Vial IVPUSH ONCE PRN Nausea and Vomiting Paroxetine HCl 40 mg 03/01/21 13:15 03/08/21 08:11 Paroxetine Hcl 40 Mg Tablet PO 40 mg DAILY JUANCHO Administration Pharmacy Consult 1 each 03/01/21 10:05 Consult Rx Perform Med Rec MISCELLANE ONCE PRN Consult order Polyethylene Glycol 17 gm 03/04/21 09:15 03/08/21 08:12 Polyethylene Glycol 3350 17 Gm Powd.Pack PO 17 gm DAILY JUANCHO Administration Prednisone 40 mg 03/07/21 09:00 03/08/21 08:12 Prednisone 20 Mg Tablet PO 40 mg DAILY JUANCHO Administration Sodium Chloride 3 ml 03/01/21 16:00 03/08/21 08:13 0.9 % Sodium Chloride Flush 3 Ml Syringe IVFLUSH 3 ml QSHIFT JUANCHO Administration Topiramate 100 mg 03/01/21 21:00 03/08/21 08:12 Topiramate 100 Mg Tablet PO 100 mg BID JUANCHO Administration Tramadol HCl 50 mg 03/07/21 11:53 03/08/21 08:21 Tramadol Hcl 50 Mg Tablet PO 50 mg Q4H PRN Administration Pain Zolpidem Tartrate 5 mg 03/01/21 21:00 03/07/21 21:53 Zolpidem Tartrate 5 Mg Tablet PO 5 mg BEDTIME JUANCHO Administration Labs CBC & Chem 7: 03/07/21 05:41 03/08/21 05:52 Labs: Laboratory Results - last 24 hr 03/08/21 05:52 Sodium 139 Potassium 3.2 L Chloride 109 H Carbon Dioxide 23 Anion Gap 10 L BUN 10 Creatinine 0.82 Estim Creat Clear Calc 82.8 Estimated GFR > 60 Random Glucose 80 Calcium 8.5 Quality Stroke Does the patient have a stroke diagnosis?: No VTE Prior VTE?: No VTE Risk Level:: Medical - moderate - high VTE Device Contraindication: Treatment Not Indicated VTE Drug Contraindication: N/A - Med Ordered Assessment and Plan (1) Crohn's colitis: Status: Acute (2) Abdominal pain: Status: Acute Assessment and Plan: 50F presented with abdominal pain and diarrhea crohns flare continue steroids, pain control Discontinue IV fluids Colonoscopy negative for any acute findings Advanced diet as tolerated thrush nystatin Major Depression Patient in low mood, not interested in a looked of things she used to be Care team input appreciated, patient will need inpatient depression treatment Pending bed availability asthma stable inhalers htn doxazosin amlodipine depression antidepressants Dispo, patient to be discharged to psych unit whenever bed is available.
--- NOTE | 2021-03-08 14:45 | MHC.CM.PN ---
NURSE HABITAT BIOLOGIST NOTE ELECTRONIC MEDICAL RECORD UPDATE BY HOSPITALIST READ , PATIENT WAS ANTICIPATED TO BE DISCHARGED HOME TODAY HOSPITALIST HAD THE CARE TEAM SEE HER FOR DEPRESSION AND PER EVALUATION IT WAS DECIDED THAT SHE NEEDS INPATIENT PSYCHIATRIC CARE FOR HER DEPRESSION
[2021-03-08] MEDS: Amitriptyline HCl 25 MG TABLET 50 MG PO (21:19)
[2021-03-08] MEDS: Doxazosin Mesylate 2 MG TABLET PO (21:19)
[2021-03-08] MEDS: Zolpidem Tartrate 5 MG TABLET PO (21:19)
[2021-03-08] MEDS: Montelukast Sodium 10 MG TABLET PO (21:19)
[2021-03-09] MEDS: 0.9 % Sodium Chloride Flush 3 ML SYRINGE IVFLUSH ×3 (00:43→15:59)
[2021-03-09 03:20] VITALS: BP 108/76; PULSE 71; RESP 17; TEMP 36.3; O2SAT 97
[2021-03-09] MEDS: traMADoL HCL 50 MG TABLET PO ×2 (04:04→12:24)
[2021-03-09 07:13] VITALS: BP 113/72; PULSE 73; RESP 20; TEMP 36.7; O2SAT 98
[2021-03-09] MEDS: predniSONE 20 MG TABLET 40 MG PO (08:02)
[2021-03-09] MEDS: clonazePAM 0.5 MG TABLET PO (08:03)
[2021-03-09] MEDS: busPIRone HCl 5 MG TABLET PO (08:03)
[2021-03-09] MEDS: Topiramate 100 MG TABLET PO (08:03)
[2021-03-09] MEDS: PARoxetine HCL 40 MG TABLET PO (08:03)
[2021-03-09] MEDS: Calcium Carbonate 750 MG TAB.CHEW PO (08:03)
[2021-03-09] MEDS: Multivitamin TABLET 1 TAB PO (08:03)
[2021-03-09] MEDS: Enoxaparin Sodium 40 MG/0.4 ML SYRINGE SUBCUT (08:03)
[2021-03-09] MEDS: polyethylene glycoL 3350 17 GM POWD.PACK PO (08:05)
[2021-03-09] MEDS: Acetaminophen 325 MG TABLET 650 MG PO (08:07)
[2021-03-09] MEDS: Fluconazole 100 MG TABLET 400 MG PO (10:43)
[2021-03-09 11:15] VITALS: BP 130/67; PULSE 80; RESP 18; TEMP 37; O2SAT 95
[2021-03-09 14:00] VITALS: O2SAT 93
--- NOTE | 2021-03-09 14:22 | ECG_ITS ---
Test Reason : ADMIT TO M5 Blood Pressure : / mmHG Vent. Rate : 082 BPM Atrial Rate : 082 BPM P-R Int : 134 ms QRS Dur : 076 ms QT Int : 372 ms P-R-T Axes : 025 003 020 degrees QTc Int : 434 ms Sinus rhythm with Fusion complexes Otherwise normal ECG When compared to the previous EKG of Premature ventricular complexes not present Referred By: Marcellus Cruz Electronically Signed By:Jm Nguyen
[2021-03-09 15:02] LABS: COVID-19 Test Negative (Negative)
--- NOTE | 2021-03-18 15:43 | W.PM.OPN ---
Operative Note Operative Note Date of Service: 03/06/21 Narrative: Pre-op diagnosis: Crohn's disease, abdominal pain, rectal bleeding Post-op diagnosis: other (Esophageal candidiasis, gastritis, Crohn's disease, sigmoid colon stricture) Procedure: FLEXIBLE TRANSORAL UPPER GASTROINTESTINAL ENDOSCOPY WITH BIOPSIES AND ESOPHAGEAL BRUSHINGS. COLONOSCOPY TILL CECUM WITH BIOPSIES AND BALLOON DILATION OF COLON STRICTURE UPPER ENDOSCOPY Consent: Indications for the procedure and potential complications of bleeding, perforation, reaction to medications and missed diagnosis were discussed with the patient and informed consent was obtained. Instrument: Olympus GIF H 190 mid size upper endoscope Monitoring: Vital signs and clinical assessment, continuous EKG monitoring, Pulse oximetry, Carbon Dioxide monitoring and blood pressure monitoring were done throughout the procedure. Procedure: The patient was placed in the left lateral decubitis position and pre-procedure medications were administered and a bite block was placed. The endoscope was inserted into the mouth and advanced under direct vision to the third part of duodenum. A careful inspection was made as the upper endoscope was withdrawn including a retroflexed examination of the proximal stomach; Findings and interventions are described below. Findings: Larynx: Normal Esophagus: GE junction at 36 cms. Erythema with scattered yellow white exudates involving the entire esophageal mucosa - brushings obtained to check for Karo. . Stomach: Mild gastric erythema. Biopsies were obtained. Grade 2 flap valve on retroflexed examination of the cardia. Duodenum: Normal bulb and descending duodenum. Biopsies were obtained from 3rd part of duodenum to check for celiac sprue/UGI Crohn's disease Intervention: Biopsies as noted above COLONOSCOPY PROCEDURE NOTE Consent: Indications for the procedure and potential complications of bleeding, perforation, reaction to medications and missed diagnosis were discussed with the patient and informed consent was obtained. Instrument: Olympus PCF H 190 L variable stiffness pediatric colonoscope Monitoring: Vital signs and clinical assessment, intermittent blood pressure monitoring, continuous EKG monitoring, Pulse oximetry and Carbon Dioxide monitoring were done throughout the procedure. Colon withdrawl time was 35 minutes. Procedure: The patient was placed in the left lateral decubitis position and pre-procedure medications were administered. After a digital rectal examination of the ano-rectum, the video colonoscope was inserted into the rectum and advanced through the colon to the cecum. The colonoscope was slowly withdrawn in a retrograde panoramic fashion and the colon mucosa was carefully examined including a retroflexed view of the rectum. Findings and interventions are described below. Procedure Difficulty: : Without difficulty Findings: Terminal Ileum: Distal 5 cms was examined and mucosa appeared normal Cecum ? Patchy erythema - surveillance biopsies were obtained. Ascending Colon ? Patchy erythema - surveillance biopsies were obtained. Transverse Colon - Patchy erythema - surveillance biopsies were obtained. Descending Colon ? Patchy erythema - surveillance biopsies were obtained. Sigmoid Colon ? Patchy erythema. surveillance biopsies were obtained. Minimal focal inflammation with a tight stricture at 12 to 15 cms and unable to pass the colonoscope through the stricture. Stricture was dilated with a 12mm (26 F) & 13.5 mm (40.5 F) CRE balloon and colonoscope was then advanced into the colon. Rectum ? Patchy erythema in the distal rectum. Inflammation in the recto-sigmoid appears to have resolved /improved from last year - surveillance biopsies were obtained for histology. Ano-rectum - dilan-anal skin tags Colon preparation: Good after some irrigation. Impression and Post Procedure Diagnosis: Endoscopy Findings: ESOPHAGUS: Erythema with scattered yellow white exudates involving the entire esophageal mucosa - brushings obtained to check for Karo. . STOMACH: Gastritis DUODENUM: Normal, Biopsies obtained to check for celiac sprue and UGI Crohn's disease Colonoscopy Findings: Patchy erythema throughout the colon - surveillance biopsies were obtained. Focal area of ulcerations with a tight stricture at 12 to 15 cms and unable to pass the colonoscope through the stricture. Stricture was dilated to 13.5 mm (40.5 F) with a CRE balloon and colonoscope was then advanced into the colon. Patchy erythema in the distal rectum. Inflammation in the recto-sigmoid appears to have resolved /significantly improved from last year - surveillance biopsies were obtained for histology. Plan: Await pathology results Patient has an appointment on 05/10/21 in the GI Clinic with Libby Palafox M.D. Repeat Colonoscopy in 1 years if no dysplasia on colon biopsies. I will schedule a Flexible Sigmoidoscopy in 4-6 weeks for repeat balloon dilation of sigmoid colon stricture. Above findings were reviewed with the patient. Surgeon: Libby Palafox MD Anesthesia: MAC (Edwina Farrell CRNA) Was an Hardware Installation Coordinator used for this Procedure?: Yes Hardware Installation Coordinator: Mukesh De Souza Estimated blood loss (mL): 0 Pathology: other (A- DUODENAL BXS R/O NUPPER GI CROHNS/ CELIAC B- GASTRIC ANTRUM BXS R/O H. PYLORI C- CECAL BXS D: BXS COLON 60-70 E: BXS COLON 40-50 F: BXS COLON 20-30 ) Condition: stable Disposition: PACU
== END 2021-03-09 16:06 | disposition home or self-care (01) | DRG 245 ==
LOC: HO.ED 12:36 → HO.S3 13:55
PROVIDERS: Internal Medicine Gastroenterology; Physician Assistant Medical; Admitting Provider Internal Medicine; Emergency Provider Emergency Medicine; PCP Internal Medicine; Visit Provider Student in an Organized Health Care Education/Training Program
PROC: 0DB98ZX Excision of Duodenum, Via Natural or Artificial Opening Endoscopic, Diagnostic (ICD-10-PCS; principal; 2021-03-06 14:00)
DX: K50.10 Crohn's disease of large intestine without complications (principal); B37.81 Candidal esophagitis; E78.5 Hyperlipidemia, unspecified; J45.909 Unspecified asthma, uncomplicated; F32.9 Major depressive disorder, single episode, unspecified; M06.9 Rheumatoid arthritis, unspecified; Z20.822 Contact with and (suspected) exposure to COVID-19; Z87.442 Personal history of urinary calculi; Z88.6 Allergy status to analgesic agent; Z79.51 Long term (current) use of inhaled steroids; Z79.52 Long term (current) use of systemic steroids; Z79.899 Other long term (current) drug therapy
CPT/HCPCS: 36415; 74177; 76775; 80048; 80053; 81001; 83605; 83690; 83735; 84702; 85025; 85027; 85610; 86140; 87040; 87102; 87106; 87493; 87635; 88305; 88342; 93005; 99285; C1726; J1170; J1650; J1956; J2370; J2405; J2920; J2930; Q9967

== ENCOUNTER 2021-03-09 16:13 | Inpatient (IN) | payer OTHER, SELFPAY ==
[2021-03-09 18:00] VITALS: BP 134/78; PULSE 84; RESP 16; O2SAT 96
[2021-03-09] MEDS: Acetaminophen 325 MG TABLET 650 MG PO (18:16)
[2021-03-09] MEDS: Calcium Carbonate 750 MG TAB.CHEW PO (18:17)
[2021-03-09] MEDS: Amitriptyline HCl 25 MG TABLET 50 MG PO (20:51)
[2021-03-09] MEDS: Topiramate 100 MG TABLET PO (20:51)
[2021-03-09 20:52] VITALS: BP 101/66; PULSE 95
[2021-03-09] MEDS: Zolpidem Tartrate 5 MG TABLET PO (20:52)
[2021-03-09] MEDS: Montelukast Sodium 10 MG TABLET PO (20:52)
[2021-03-09] MEDS: Doxazosin Mesylate 2 MG TABLET PO (20:52)
[2021-03-09] MEDS: traMADoL HCL 50 MG TABLET PO (20:56)
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
[2021-03-10] MEDS: traZODone HCL 50 MG TABLET PO ×2 (00:25→20:58)
[2021-03-10 06:00] VITALS: BP 106/69; PULSE 96; RESP 18; TEMP 36.6; O2SAT 97
[2021-03-10 08:18] LABS: Estimated Average Glucose 108 mg/dL; Hemoglobin A1c % 5.4 %
[2021-03-10 08:50] LABS: Cholesterol 205 mg/dL; HDL Cholesterol 55 mg/dL; LDL Cholesterol Calculated 112 mg/dl; Triglycerides 194 mg/dL
[2021-03-10 09:11] LABS: Free T4 (Free Thyroxine) 0.83 ng/dL (0.71-1.85); Thyroid Stimulating Hormone 0.58 uIU/mL (0.32-4.0)
[2021-03-10] MEDS: Topiramate 100 MG TABLET PO ×2 (09:14→20:57)
[2021-03-10] MEDS: Multivitamin TABLET 1 TAB PO (09:14)
[2021-03-10] MEDS: PARoxetine HCL 40 MG TABLET PO (09:14)
[2021-03-10] MEDS: Fluconazole 100 MG TABLET PO (09:14)
[2021-03-10] MEDS: clonazePAM 0.5 MG TABLET PO (09:14)
[2021-03-10] MEDS: busPIRone HCl 5 MG TABLET PO (09:14)
[2021-03-10] MEDS: Calcium Carbonate 750 MG TAB.CHEW PO ×2 (09:14→17:30)
[2021-03-10] MEDS: predniSONE 20 MG TABLET 40 MG PO (09:15)
[2021-03-10] MEDS: polyethylene glycoL 3350 17 GM POWD.PACK PO (09:15)
[2021-03-10] MEDS: Fluticasone/Vilanterol 200/25 BLST.W.DEV 1 PUFF INHALE (10:20)
[2021-03-10] MEDS: traMADoL HCL 50 MG TABLET PO ×3 (10:24→20:57)
--- NOTE | 2021-03-10 16:38 | P.HPPS_ITS ---
HPI Chief Complaint: Severe recurrent major depression Sources of Information: patient interviewed, chart reviewed and crisis/core team assessment reviewed HPI Subjective Notes: Conditional Voluntary Healthcare Proxy: No Guardianship: No Medical Problems Affecting Mental Status: Yes (Chron's Colitis) Past Psychiatric History: 50 yo female, transferred from the medical floor after treatment for Chron's Colitis and increasing abdominal pain. pt reports she cannot sleep and has too many thoughts in her head that race She reports panic attacks and I do not feel strong any more. Pt reports she has felt this way since childhood-she reflects upon her life and believes it was very difficult and this has caused symptom re-enforcement. Currently she describes the whole world being on my shoulders and wanting to run so she will not need to deal with things. She would like to decrease worry and learn how to relax some of the time. She affirms SI stating it has been this way for too long, I cannot manage it any longer. Of note, pt asked NOT to have an teacher cclc when we met and reports satisfaction with the assessment. Medical Evaluation Reviewed: Yes Care discussed with Dr. Lin on 03/09/21. Pt medically hospitalized for 8 days with Chron's flare and an increase in abdominal pain. Pt was given a combination of antibiotics, fluids and steroids to control the flare along with Diflucan. Steroids will be on taper-40 mg x 1 week; 30 mg x 1 week; 20 mg x 1 week; 10 mg x 1 week. Pt spoke with Dr. Lin about feeling severely depressed having no interest and although not actively suicidal feeling her life was worthless. [facility] Medical History (Updated 03/10/21 @ 17:11 by Christy Carcamo APRN) Cancer Crohn's colitis Depression Hemorrhagic cyst of ovary HTN (hypertension) Hyperlipidemia Iron deficiency anemia Kidney stones Migraine Recurrent major depression-severe Rheumatoid arthritis Surgical History Hx of colonoscopy (~12/2019) Hx of colonoscopy (~10/2018) Hx of endoscopy Family History: denies Social History: Born and raised in [place] with parents, brothers. Moved to [place] about 20 years ago. Pt reports she was forced to at age 16 by her parents who signed papers. First son 03/27/88 (anniversary upcoming-part of current sx intensity) and pt continues to grieve, cries openly. He was one month old. Pt has 3 daughters, grandchildren. Her at age 42 of a cardiac event due to drug use. She reports he was involved in many terrible things and could have prevented his if she practiced self-care. Pt has been on disability for several years. She met and worked with Addis Viera of [facility] for several years and felt they had a very productive alliance. Substance History: Denies Trauma History: affirms Diagnostics Vital Signs (24Hr): Vital Signs - 24 hr 03/09/21 18:00 03/09/21 20:52 03/10/21 06:00 Temperature 97.9 F Pulse Rate 84 95 96 Respiratory Rate 16 18 Blood Pressure 134/78 101/66 106/69 Pulse Oximetry 96 97 Labs Labs: Laboratory Results - last 48 hr 03/10/21 03/10/21 07:24 07:24 Estimat Average Glucose 108 Hemoglobin A1c % 5.4 Triglycerides 194 Cholesterol 205 LDL Cholesterol, Calc 112 HDL Cholesterol 55 TSH 0.58 Free T4 0.83 Meds/Allergies Meds Home Medications Acetaminophen (Acetaminophen 325 Mg Tablet) 650 mg PO Q6H PRN PRN Reason: Pain, Mild (Pain Scale 1-3) Last Admin: 03/09/21 18:16 Dose: 650 mg Documented by: Al Hydroxide/Mg Hydroxide (Magnesium Hydrox/Alum Hydrox 30 Ml Oral.Susp) 30 ml PO Q6H PRN PRN Reason: Heartburn/Nausea Albuterol Sulfate (Albuterol Sulfate 90 Mcg 8 Gm Inhaler) 2 puff INHALE QID PRN PRN Reason: Shortness Of Breath Amitriptyline HCl (Amitriptyline Hcl 25 Mg Tablet) 50 mg PO BEDTIME [facility] Last Admin: 03/10/21 20:57 Dose: 50 mg Documented by: Artificial Tears (Artificial Tears 15 Ml Drops) 1 drop EYE-BOTH QID PRN PRN Reason: Dry Eye(S) Buspirone HCl (Buspirone Hcl 5 Mg Tablet) 5 mg PO DAILY [facility] Last Admin: 03/11/21 08:13 Dose: 5 mg Documented by: Calcium Carbonate (Calcium Carbonate 750 Mg Tab.Chew) 750 mg PO BIDPC [facility] Last Admin: 03/11/21 08:14 Dose: 750 mg Documented by: Clonazepam (Clonazepam 0.5 Mg Tablet) 0.5 mg PO DAILY [facility] Last Admin: 03/11/21 08:13 Dose: 0.5 mg Documented by: Docusate Sodium (Docusate Sodium 100 Mg Capsule) 100 mg PO BID PRN PRN Reason: Constipation Doxazosin Mesylate (Doxazosin Mesylate 2 Mg Tablet) 2 mg PO BEDTIME [facility]; Protocol Last Admin: 03/10/21 20:58 Dose: 2 mg Documented by: Ergocalciferol (Ergocalciferol (Vitamin D2) 1,250 Mcg Capsule) 1,250 mcg PO We@0900 [facility] Escitalopram Oxalate (Escitalopram Oxalate 5 Mg Tablet) 5 mg PO DAILY [facility] Last Admin: 03/11/21 08:13 Dose: 5 mg Documented by: Fluconazole (Fluconazole 100 Mg Tablet) 100 mg PO DAILY [facility] Stop: 03/21/21 09:01 Last Admin: 03/11/21 08:13 Dose: 100 mg Documented by: Fluticasone/Vilanterol (Fluticasone/Vilanterol 200/25 Blst.W.Dev) 1 puff INHALE RDAILY [facility] Last Admin: 03/11/21 08:14 Dose: 1 puff Documented by: Hydroxyzine HCl (Hydroxyzine Hcl 25 Mg Tablet) 25 mg PO BEDTIME PRN PRN Reason: Anxiety Magnesium Hydroxide (Milk Of Magnesia 30 Ml Oral.Susp) 30 ml PO DAILY PRN PRN Reason: Constipation Methotrexate (Methotrexate Sodium 2.5 Mg Tablet) 25 mg PO Tu [facility] Montelukast Sodium (Montelukast Sodium 10 Mg Tablet) 10 mg PO BEDTIME [facility] Last Admin: 03/10/21 20:58 Dose: 10 mg Documented by: Multivitamins/Vitamin C (Multivitamin Tablet) 1 tab PO DAILY [facility] Last Admin: 03/11/21 08:13 Dose: 1 tab Documented by: Ondansetron HCl (Ondansetron Hcl 4 Mg/2 Ml Vial) 4 mg IVPUSH ONCE PRN PRN Reason: Nausea and Vomiting Oxycodone HCl (Oxycodone Hcl Immed Release 5 Mg Tablet) 5 mg PO Q4H PRN PRN Reason: Pain, Mild (Pain Scale 1-3) Last Admin: 03/11/21 08:34 Dose: 5 mg Documented by: Paroxetine HCl (Paroxetine Hcl 40 Mg Tablet) 40 mg PO DAILY [facility] Last Admin: 03/11/21 08:14 Dose: 40 mg Documented by: Polyethylene Glycol (Polyethylene Glycol 3350 17 Gm Powd.Pack) 17 gm PO DAILY [facility] Last Admin: 03/11/21 08:21 Dose: 17 gm Documented by: Prednisone (Prednisone 20 Mg Tablet) 40 mg PO DAILY [facility] Stop: 03/17/21 17:14 Last Admin: 03/11/21 08:13 Dose: 40 mg Documented by: Quetiapine Fumarate (Quetiapine Fumarate 25 Mg Tablet) 25 mg PO BEDTIME [facility] Last Admin: 03/10/21 20:58 Dose: 25 mg Documented by: Quetiapine Fumarate (Quetiapine Fumarate 25 Mg Tablet) 25 mg PO BID PRN PRN Reason: anxiety Last Admin: 03/10/21 17:30 Dose: 25 mg Documented by: Topiramate (Topiramate 100 Mg Tablet) 100 mg PO BID [facility] Last Admin: 03/11/21 08:13 Dose: 100 mg Documented by: Trazodone HCl (Trazodone Hcl 50 Mg Tablet) 50 mg PO BEDTIME PRN PRN Reason: Insomnia Last Admin: 03/10/21 20:58 Dose: 50 mg Documented by: Zolpidem Tartrate (Zolpidem Tartrate 5 Mg Tablet) 5 mg PO BEDTIME [facility] Last Admin: 03/10/21 20:58 Dose: 5 mg Documented by: Allergies Allergies Allergy/AdvReac Type Severity Reaction Status Date / Time aspirin [ASA] Allergy Intermediate RASH Verified 11/17/20 15:07 azathioprine [From IMURAN] Allergy Intermediate PANCREATIC Verified 11/17/20 15:07 INFLAMMATION ibuprofen [IBUPROFEN] Allergy Intermediate TOLD NOT Verified 11/17/20 15:07 TO TAKE levofloxacin [From LEVAQUIN] Allergy Mild YEAST Verified 11/17/20 15:07 INFECTIONS Mental Status Exam Mental Status Exam Patient Appearance: Appropriate Patient Orientation: Person, Place, Time and Situation Level of Consciousness: Alert Patient Behavior: Talkative, Cooperative, Passive, Anxious, Fearful, Fatigued, Distractible, Isolative, Good Eye Contact and Crying Mood Description: Depressed and Anxious Affect Description: Flat Patient Cognition Impaired: No Ability to Follow Directions: Good Speech Pattern: Spontaneous Speech Memory Description: Intact Hallucinations: None Perceptual Disturbances: Depersonalization and Derealization Thought Process: Racing, Distracted and Rumination Thought Content: positive for [place], positive for Circumstantial, positive for Perseveration, positive for Thought Blocking and positive for Suicidal Ideation (passive, without plan or intent) Depressive Symptoms: Increased Anxiety, Insomnia, Diff. Making Decisions, Difficulty Sleeping, Changes in Appetite, Crying Spells, Significant Weight Loss, Loss of Int. in Activity, Feelings of Worthlessness, Hopelessness, Isolating-Friends/Family, Feelings of Guilt, Unhappiness, Increased Fatigue, Thoughts of /Suicide, Low Self Esteem, Loss of Energy and Difficulty Concentrating Judgement: Fair Assessment & Plan Assessment & Plan (1) Recurrent major depression-severe: Status: Acute Code(s): F33.2 - Major depressive disorder, recurrent severe without psychotic features Assessment and Plan: -Continue current regime. 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 -Continue weekly steroid taper per medicine. Patient educated on: medication risk/benefits and therapeutic strategies Informed Consent: further education needed Reason for continued inpatient stay Substantial Risk for: harm to self, inability to function and med/psych decompensation
[2021-03-10] MEDS: QUEtiapine Fumarate 25 MG TABLET PO ×2 (17:30→20:58)
[2021-03-10 18:00] VITALS: BP 120/82; PULSE 83
[2021-03-10] MEDS: Amitriptyline HCl 25 MG TABLET 50 MG PO (20:57)
[2021-03-10 20:58] VITALS: BP 140/85; PULSE 96
[2021-03-10] MEDS: Montelukast Sodium 10 MG TABLET PO (20:58)
[2021-03-10] MEDS: Doxazosin Mesylate 2 MG TABLET PO (20:58)
[2021-03-10] MEDS: Zolpidem Tartrate 5 MG TABLET PO (20:58)
[2021-03-10 21:13] VITALS: BP 140/85; PULSE 96; TEMP 36.6
[2021-03-11 06:00] VITALS: BP 99/70; PULSE 96; RESP 16; TEMP 36.6; O2SAT 97
[2021-03-11] MEDS: Topiramate 100 MG TABLET PO ×2 (08:13→21:20)
[2021-03-11] MEDS: clonazePAM 0.5 MG TABLET PO ×2 (08:13→21:20)
[2021-03-11] MEDS: Escitalopram Oxalate 5 MG TABLET PO (08:13)
[2021-03-11] MEDS: Fluconazole 100 MG TABLET PO (08:13)
[2021-03-11] MEDS: predniSONE 20 MG TABLET 40 MG PO (08:13)
[2021-03-11] MEDS: Multivitamin TABLET 1 TAB PO (08:13)
[2021-03-11] MEDS: busPIRone HCl 5 MG TABLET PO (08:13)
[2021-03-11] MEDS: PARoxetine HCL 40 MG TABLET PO (08:14)
[2021-03-11] MEDS: Calcium Carbonate 750 MG TAB.CHEW PO ×2 (08:14→17:57)
[2021-03-11] MEDS: Fluticasone/Vilanterol 200/25 BLST.W.DEV 1 PUFF INHALE (08:14)
[2021-03-11] MEDS: polyethylene glycoL 3350 17 GM POWD.PACK PO ×3 (08:21→21:19)
[2021-03-11] MEDS: oxyCODONE HCl Immed Release 5 MG TABLET PO ×3 (08:34→19:23)
[2021-03-11] MEDS: QUEtiapine Fumarate 25 MG TABLET PO (10:09)
[2021-03-11] MEDS: Docusate Sodium 100 MG CAPSULE PO ×2 (13:34→21:20)
[2021-03-11] MEDS: Milk of Magnesia 30 ML ORAL.SUSP PO (13:34)
--- NOTE | 2021-03-11 17:31 | HO.PSYCHPN ---
Subjective Subjective Date of Service: 03/11/21 Reason For Visit: Severe recurrent major depression Interim History: No relief with med changes 03/10/ Seroquel changed to Olanzapine. Consult 03/[address] Cruz for pt's pain. Regime change to Oxycodone 5 mg q 4 hours prn. Pt needs to be on laxatives with goal of 2 bowel movements daily. Discussed with pt today. She has not had a bowel movement in two days. Laxatives increased. Miralax ordered as by history this has been helpful Medication Compliance: Yes Side effects from medications: No Review of Systems Reports behavioral changes Psychiatric: Reports anxiety, Reports behavioral changes, Reports depression, Reports difficulty concentrating, Reports auditory hallucinations, Reports hopelessness, Reports irritability, Reports mood swings, Reports paranoia and Reports visual hallucinations Mental Status Exam Mental Status Exam Patient Appearance: Fatigued Patient Orientation: Person, Place, Time and Situation Level of Consciousness: Alert Patient Behavior: Talkative, Cooperative, Anxious, Fearful, Avoidant, Fatigued, Distractible, Isolative, Crying and Poor Eye Contact Mood Description: Depressed and Anxious Affect Description: Flat Patient Cognition Impaired: No Ability to Follow Directions: Good Speech Pattern: Perseverating, Spontaneous Speech, Soft-Spoken and Long Pauses Memory Description: Intact Hallucinations: Auditory Delusions: Not Present Perceptual Disturbances: Depersonalization and Derealization Thought Process: Distracted Thought Content: positive for Racing, positive for Circumstantial, positive for Perseveration and positive for Thought Blocking Depressive Symptoms: Increased Anxiety, Diff. Making Decisions, Increased Irritability, Loss of Int. in Activity, Feelings of Worthlessness, Hopelessness, Increased Fatigue, Low Self Esteem and Difficulty Concentrating Judgement: Fair Diagnostics Vital Signs (24Hr): Vital Signs - 24 hr 03/10/21 18:00 03/10/21 20:58 03/10/21 21:13 Temperature 97.8 F Pulse Rate 83 96 96 Respiratory Rate Blood Pressure 120/82 140/85 H 140/85 H Pulse Oximetry 03/11/21 06:00 Temperature 97.8 F Pulse Rate 96 Respiratory Rate 16 Blood Pressure 99/70 Pulse Oximetry 97 Labs Labs: Laboratory Results - last 48 hr 03/10/21 03/10/21 07:24 07:24 Estimat Average Glucose 108 Hemoglobin A1c % 5.4 Triglycerides 194 Cholesterol 205 LDL Cholesterol, Calc 112 HDL Cholesterol 55 TSH 0.58 Free T4 0.83 Medications Medications Current Medications Generic Name Dose Route Start Last Admin Trade Name Freq PRN Reason Stop Dose Admin Acetaminophen 650 mg 03/09/21 16:31 03/09/21 18:16 Acetaminophen 325 Mg Tablet PO 650 mg Q6H PRN Administration Pain, Mild (Pain Scale 1-3) Al Hydroxide/Mg Hydroxide 30 ml 03/09/21 16:31 Magnesium Hydrox/Alum Hydrox 30 Ml Oral.Susp PO Q6H PRN Heartburn/Nausea Albuterol Sulfate 2 puff 03/09/21 16:31 Albuterol Sulfate 90 Mcg 8 Gm Inhaler INHALE QID PRN Shortness Of Breath Amitriptyline HCl 50 mg 03/09/21 21:00 03/10/21 20:57 Amitriptyline Hcl 25 Mg Tablet PO 50 mg BEDTIME [facility] Administration Artificial Tears 1 drop 03/09/21 16:31 Artificial Tears 15 Ml Drops EYE-BOTH QID PRN Dry Eye(S) Buspirone HCl 5 mg 03/10/21 09:00 03/11/21 08:13 Buspirone Hcl 5 Mg Tablet PO 5 mg DAILY [facility] Administration Calcium Carbonate 750 mg 03/09/21 17:30 03/11/21 08:14 Calcium Carbonate 750 Mg Tab.Chew PO 750 mg BIDPC [facility] Administration Clonazepam 0.5 mg 03/11/21 21:00 Clonazepam 0.5 Mg Tablet PO BID [facility] Docusate Sodium 100 mg 03/11/21 13:15 03/11/21 13:34 Docusate Sodium 100 Mg Capsule PO 100 mg BID [facility] Administration Doxazosin Mesylate 2 mg 03/09/21 21:00 03/10/21 20:58 Doxazosin Mesylate 2 Mg Tablet PO 2 mg BEDTIME [facility] Administration Protocol Ergocalciferol 1,250 mcg 03/14/21 09:00 Ergocalciferol (Vitamin D2) 1,250 Mcg Capsule PO We@0900 [facility] Escitalopram Oxalate 5 mg 03/11/21 09:00 03/11/21 08:13 Escitalopram Oxalate 5 Mg Tablet PO 5 mg DAILY [facility] Administration Fluconazole 100 mg 03/10/21 09:00 03/11/21 08:13 Fluconazole 100 Mg Tablet PO 03/21/21 09:01 100 mg DAILY [facility] Administration Fluticasone/Vilanterol 1 puff 03/10/21 08:00 03/11/21 08:14 Fluticasone/Vilanterol 200/25 Blst.W.Dev INHALE 1 puff RDAILY [facility] Administration Hydroxyzine HCl 25 mg 03/09/21 16:31 Hydroxyzine Hcl 25 Mg Tablet PO BEDTIME PRN Anxiety Lorazepam 1 mg 03/11/21 11:10 Lorazepam 1 Mg Tablet PO Q4H PRN severe anxiety Magnesium Hydroxide 30 ml 03/09/21 16:31 03/11/21 13:34 Milk Of Magnesia 30 Ml Oral.Susp PO 30 ml DAILY PRN Administration Constipation Methotrexate 25 mg 03/13/21 18:53 Methotrexate Sodium 2.5 Mg Tablet PO Tu [facility] Montelukast Sodium 10 mg 03/09/21 21:00 03/10/21 20:58 Montelukast Sodium 10 Mg Tablet PO 10 mg BEDTIME [facility] Administration Multivitamins/Vitamin C 1 tab 03/10/21 09:00 03/11/21 08:13 Multivitamin Tablet PO 1 tab DAILY [facility] Administration Olanzapine 5 mg 03/11/21 21:00 Olanzapine 5 Mg Tablet PO BEDTIME [facility] Olanzapine 2.5 mg 03/11/21 11:09 Olanzapine 2.5 Mg Tablet PO BID PRN agitation, auditory perceptual alt Ondansetron HCl 4 mg 03/09/21 16:31 Ondansetron Hcl 4 Mg/2 Ml Vial IVPUSH ONCE PRN Nausea and Vomiting Oxycodone HCl 5 mg 03/10/21 21:36 03/11/21 14:45 Oxycodone Hcl Immed Release 5 Mg Tablet PO 5 mg Q4H PRN Administration Pain, Mild (Pain Scale 1-3) Paroxetine HCl 40 mg 03/10/21 09:00 03/11/21 08:14 Paroxetine Hcl 40 Mg Tablet PO 40 mg DAILY [facility] Administration Polyethylene Glycol 17 gm 03/11/21 13:15 03/11/21 13:34 Polyethylene Glycol 3350 17 Gm Powd.Pack PO 17 gm BID [facility] Administration Prednisone 40 mg 03/10/21 09:00 03/11/21 08:13 Prednisone 20 Mg Tablet PO 03/17/21 17:14 40 mg DAILY [facility] Administration Topiramate 100 mg 03/09/21 21:00 03/11/21 08:13 Topiramate 100 Mg Tablet PO 100 mg BID [facility] Administration Trazodone HCl 50 mg 03/09/21 16:31 03/10/21 20:58 Trazodone Hcl 50 Mg Tablet PO 50 mg BEDTIME PRN Administration Insomnia Zolpidem Tartrate 5 mg 03/09/21 21:00 03/10/21 20:58 Zolpidem Tartrate 5 Mg Tablet PO 5 mg BEDTIME [facility] Administration Allergies Allergies Allergy/AdvReac Type Severity Reaction Status Date / Time aspirin [ASA] Allergy Intermediate RASH Verified 11/17/20 15:07 azathioprine [From IMURAN] Allergy Intermediate PANCREATIC Verified 11/17/20 15:07 INFLAMMATION ibuprofen [IBUPROFEN] Allergy Intermediate TOLD NOT Verified 11/17/20 15:07 TO TAKE levofloxacin [From LEVAQUIN] Allergy Mild YEAST Verified 11/17/20 15:07 INFECTIONS Assessment & Plan Assessment & Plan (1) Recurrent major depression-severe: Status: Acute Code(s): F33.2 - Major depressive disorder, recurrent severe without psychotic features Assessment and Plan: -Continue current regime. 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 -Change of pain med to Oxycodone -Goal of 2 bowel mvts daily-Miralax added. -Continue weekly steroid taper per medicine. Greater than 50% of the session was spent on counseling and/or coordination of care Reason for contiued inpatient stay Substantial Risk for: inability to function, rapid decompensation and med/psych decompensation
[2021-03-11] MEDS: LORazepam 1 MG TABLET PO (17:59)
[2021-03-11 18:00] VITALS: BP 116/68; PULSE 87; TEMP 36; O2SAT 98
[2021-03-11] MEDS: Zolpidem Tartrate 5 MG TABLET PO (21:20)
[2021-03-11] MEDS: Montelukast Sodium 10 MG TABLET PO (21:20)
[2021-03-11] MEDS: OLANZapine 5 MG TABLET PO (21:20)
[2021-03-11] MEDS: Amitriptyline HCl 25 MG TABLET 50 MG PO (21:20)
[2021-03-12] MEDS: Acetaminophen 325 MG TABLET 650 MG PO (00:35)
[2021-03-12] MEDS: oxyCODONE HCl Immed Release 5 MG TABLET PO ×4 (05:07→22:10)
[2021-03-12 06:00] VITALS: BP 108/65; PULSE 78; RESP 14; TEMP 36.6; O2SAT 93
[2021-03-12 08:59] VITALS: BP 125/77; PULSE 85
[2021-03-12] MEDS: Doxazosin Mesylate 2 MG TABLET PO (08:59)
[2021-03-12] MEDS: Calcium Carbonate 750 MG TAB.CHEW PO ×2 (09:00→19:26)
[2021-03-12] MEDS: Multivitamin TABLET 1 TAB PO (09:00)
[2021-03-12] MEDS: Escitalopram Oxalate 5 MG TABLET PO (09:00)
[2021-03-12] MEDS: predniSONE 20 MG TABLET 40 MG PO (09:00)
[2021-03-12] MEDS: Fluconazole 100 MG TABLET PO (09:00)
[2021-03-12] MEDS: clonazePAM 0.5 MG TABLET PO ×2 (09:01→21:02)
[2021-03-12] MEDS: Topiramate 100 MG TABLET PO ×2 (09:01→21:02)
[2021-03-12] MEDS: PARoxetine HCL 40 MG TABLET PO (09:01)
[2021-03-12] MEDS: busPIRone HCl 5 MG TABLET PO (09:01)
[2021-03-12] MEDS: Fluticasone/Vilanterol 200/25 BLST.W.DEV 1 PUFF INHALE (09:17)
--- NOTE | 2021-03-12 09:20 | P.PNPSI_ITS ---
Subjective Subjective Date of Service: 03/13/21 Reason For Visit: Severe recurrent major depression Interim History: Pt presents as very somatically focused. She reports her family does not support her. She reports she has not been able to accomplished dreams she had such as going to nursing school. She reports anxiety increasing for last year. Pt presents with brighter affect than reported mood. She does present these somatic complaints in more dramatic way. She denies SI/HI. Her main concern is anxiety. Pt on several prn meds, and current medications changes. Pt encourage to use prn meds and attend groups as possible. Review of Systems Reports behavioral changes Psychiatric: Reports abnormal sleep pattern, Reports anxiety, Reports behavioral changes, Reports change in appetite, Reports depression, Reports difficulty concentrating, Reports auditory hallucinations, Reports hopelessness, Reports irritability, Reports anhedonia, Reports mood swings, Reports panic attacks, Reports paranoia, Reports visual hallucinations and Reports suicidal ideation Mental Status Exam Mental Status Exam Narrative: Appearance: casually groomed, fair hygiene, in NAD Behavior: calm, cooperative Psychomotor: no agitation or retardation noted Speech: clear, normal rate/rhythm/volume, spontaneous TP: linear TC: no signs of psychosis, feeling lonely, no support from family, somatically preoccupied Mood: anxious Affect:brighter, less distressed than reported mood SI:none HI:none AH/VH:none Delusions:none Insight/judgment:poor x 2. memory/cog: alert, oriented x 3. grossly intact to conversational testing. Diagnostics Vital Signs (24Hr): Vital Signs - 24 hr 03/12/21 17:58 03/13/21 06:48 03/13/21 08:52 Temperature 97.7 F 97.5 F Pulse Rate 88 90 70 Respiratory Rate 16 Blood Pressure 123/67 119/78 122/65 Pulse Oximetry 97 96 Labs Labs: Laboratory Results - last 48 hr 03/10/21 07:24 Vitamin B12 262 Folate 6.7 Medications Medications Current Medications Generic Name Dose Route Start Last Admin Trade Name Freq PRN Reason Stop Dose Admin Acetaminophen 650 mg 03/09/21 16:31 03/12/21 00:35 Acetaminophen 325 Mg Tablet PO 650 mg Q6H PRN Administration Pain, Mild (Pain Scale 1-3) Al Hydroxide/Mg Hydroxide 30 ml 03/09/21 16:31 Magnesium Hydrox/Alum Hydrox 30 Ml Oral.Susp PO Q6H PRN Heartburn/Nausea Albuterol Sulfate 2 puff 03/09/21 16:31 Albuterol Sulfate 90 Mcg 8 Gm Inhaler INHALE QID PRN Shortness Of Breath Amitriptyline HCl 50 mg 03/09/21 21:00 03/12/21 21:01 Amitriptyline Hcl 25 Mg Tablet PO 50 mg BEDTIME [facility] Administration Artificial Tears 1 drop 03/09/21 16:31 Artificial Tears 15 Ml Drops EYE-BOTH QID PRN Dry Eye(S) Buspirone HCl 5 mg 03/10/21 09:00 03/13/21 08:51 Buspirone Hcl 5 Mg Tablet PO 5 mg DAILY [facility] Administration Calcium Carbonate 750 mg 03/09/21 17:30 03/13/21 08:51 Calcium Carbonate 750 Mg Tab.Chew PO 750 mg BIDPC [facility] Administration Clonazepam 0.5 mg 03/11/21 21:00 03/13/21 08:50 Clonazepam 0.5 Mg Tablet PO 0.5 mg BID [facility] Administration Docusate Sodium 100 mg 03/11/21 13:15 03/13/21 08:51 Docusate Sodium 100 Mg Capsule PO 100 mg BID [facility] Administration Doxazosin Mesylate 2 mg 03/12/21 09:00 03/13/21 08:52 Doxazosin Mesylate 2 Mg Tablet PO 2 mg DAILY [facility] Administration Protocol Ergocalciferol 1,250 mcg 03/14/21 09:00 Ergocalciferol (Vitamin D2) 1,250 Mcg Capsule PO We@0900 [facility] Escitalopram Oxalate 5 mg 03/11/21 09:00 03/13/21 08:51 Escitalopram Oxalate 5 Mg Tablet PO 5 mg DAILY [facility] Administration Fluconazole 100 mg 03/10/21 09:00 03/13/21 08:50 Fluconazole 100 Mg Tablet PO 03/21/21 09:01 100 mg DAILY [facility] Administration Fluticasone/Vilanterol 1 puff 03/10/21 08:00 03/13/21 08:50 Fluticasone/Vilanterol 200/25 Blst.W.Dev INHALE 1 puff RDAILY [facility] Administration Hydroxyzine HCl 25 mg 03/09/21 16:31 Hydroxyzine Hcl 25 Mg Tablet PO BEDTIME PRN Anxiety Lorazepam 1 mg 03/11/21 11:10 03/13/21 02:59 Lorazepam 1 Mg Tablet PO 1 mg Q4H PRN Administration severe anxiety Magnesium Hydroxide 30 ml 03/09/21 16:31 03/11/21 13:34 Milk Of Magnesia 30 Ml Oral.Susp PO 30 ml DAILY PRN Administration Constipation Methotrexate 25 mg 03/13/21 18:53 Methotrexate Sodium 2.5 Mg Tablet PO Tu [facility] Montelukast Sodium 10 mg 03/09/21 21:00 03/12/21 21:01 Montelukast Sodium 10 Mg Tablet PO 10 mg BEDTIME [facility] Administration Multivitamins/Vitamin C 1 tab 03/10/21 09:00 03/13/21 08:50 Multivitamin Tablet PO 1 tab DAILY [facility] Administration Olanzapine 5 mg 03/11/21 21:00 03/12/21 21:01 Olanzapine 5 Mg Tablet PO 5 mg BEDTIME [facility] Administration Olanzapine 2.5 mg 03/11/21 11:09 03/13/21 02:59 Olanzapine 2.5 Mg Tablet PO 2.5 mg BID PRN Administration agitation, auditory perceptual alt Ondansetron HCl 4 mg 03/09/21 16:31 Ondansetron Hcl 4 Mg/2 Ml Vial IVPUSH ONCE PRN Nausea and Vomiting Oxycodone HCl 5 mg 03/10/21 21:36 03/13/21 01:24 Oxycodone Hcl Immed Release 5 Mg Tablet PO 5 mg Q4H PRN Administration Pain, Mild (Pain Scale 1-3) Paroxetine HCl 40 mg 03/10/21 09:00 03/13/21 08:51 Paroxetine Hcl 40 Mg Tablet PO 40 mg DAILY [facility] Administration Polyethylene Glycol 17 gm 03/11/21 13:15 03/13/21 08:54 Polyethylene Glycol 3350 17 Gm Powd.Pack PO Not Given BID [facility] Prednisone 40 mg 03/10/21 09:00 03/13/21 08:50 Prednisone 20 Mg Tablet PO 03/17/21 17:14 40 mg DAILY [facility] Administration Topiramate 100 mg 03/09/21 21:00 03/13/21 08:50 Topiramate 100 Mg Tablet PO 100 mg BID [facility] Administration Trazodone HCl 50 mg 03/09/21 16:31 03/13/21 02:59 Trazodone Hcl 50 Mg Tablet PO 50 mg BEDTIME PRN Administration Insomnia Zolpidem Tartrate 5 mg 03/09/21 21:00 03/12/21 21:01 Zolpidem Tartrate 5 Mg Tablet PO 5 mg BEDTIME [facility] Administration Allergies Allergies Allergy/AdvReac Type Severity Reaction Status Date / Time aspirin [ASA] Allergy Intermediate RASH Verified 11/17/20 15:07 azathioprine [From IMURAN] Allergy Intermediate PANCREATIC Verified 11/17/20 15:07 INFLAMMATION ibuprofen [IBUPROFEN] Allergy Intermediate TOLD NOT Verified 11/17/20 15:07 TO TAKE levofloxacin [From LEVAQUIN] Allergy Mild YEAST Verified 11/17/20 15:07 INFECTIONS Assessment & Plan Assessment & Plan (1) Recurrent major depression-severe: Status: Acute Code(s): F33.2 - Major depressive disorder, recurrent severe without psychotic features Assessment and Plan: -Continue current regime per primary treatment team. 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 -Change of pain med to Oxycodone -Goal of 2 bowel mvts daily-Miralax added. -Continue weekly steroid taper per medicine. Greater than 50% of the session was spent on counseling and/or coordination of care Reason for contiued inpatient stay Substantial Risk for: inability to function
[2021-03-12 10:17] LABS: Folate 6.7 ng/mL (> or = 4.0); Vitamin B12 262 pg/mL (200-900)
[2021-03-12] MEDS: LORazepam 1 MG TABLET PO ×2 (12:05→19:41)
[2021-03-12 17:58] VITALS: BP 123/67; PULSE 88; TEMP 36.5; O2SAT 97
[2021-03-12] MEDS: Montelukast Sodium 10 MG TABLET PO (21:01)
[2021-03-12] MEDS: OLANZapine 5 MG TABLET PO (21:01)
[2021-03-12] MEDS: Amitriptyline HCl 25 MG TABLET 50 MG PO (21:01)
[2021-03-12] MEDS: Zolpidem Tartrate 5 MG TABLET PO (21:01)
[2021-03-12] MEDS: Docusate Sodium 100 MG CAPSULE PO (21:01)
[2021-03-12] MEDS: polyethylene glycoL 3350 17 GM POWD.PACK PO (21:02)
[2021-03-12] MEDS: OLANZapine 2.5 MG TABLET PO (22:09)
--- NOTE | 2021-03-13 | EEG_ITS ---
The waking background activity consists of low voltage fast frequencies seen diffusely, intermixed with low voltage, 9 to 10 hertz posterior alpha. Drowsiness is characterized by diffuse theta slowing. Photic stimulation and hyperventilation without activation. No focal, lateralizing, or paroxysmal discharges seen. IMPRESSION: This awake and drowsy EEG is within normal limits. MD FRANCO [place]/RITA / [phone]
[2021-03-13] MEDS: oxyCODONE HCl Immed Release 5 MG TABLET PO ×4 (01:24→20:11)
[2021-03-13] MEDS: LORazepam 1 MG TABLET PO ×2 (02:59→09:22)
[2021-03-13] MEDS: OLANZapine 2.5 MG TABLET PO (02:59)
[2021-03-13] MEDS: traZODone HCL 50 MG TABLET PO (02:59)
[2021-03-13 06:48] VITALS: BP 119/78; PULSE 90; RESP 16; TEMP 36.4; O2SAT 96
[2021-03-13] MEDS: clonazePAM 0.5 MG TABLET PO ×2 (08:50→18:06)
[2021-03-13] MEDS: Fluconazole 100 MG TABLET PO (08:50)
[2021-03-13] MEDS: Topiramate 100 MG TABLET PO ×2 (08:50→20:10)
[2021-03-13] MEDS: Multivitamin TABLET 1 TAB PO (08:50)
[2021-03-13] MEDS: Fluticasone/Vilanterol 200/25 BLST.W.DEV 1 PUFF INHALE (08:50)
[2021-03-13] MEDS: predniSONE 20 MG TABLET 40 MG PO (08:50)
[2021-03-13] MEDS: PARoxetine HCL 40 MG TABLET PO (08:51)
[2021-03-13] MEDS: Calcium Carbonate 750 MG TAB.CHEW PO ×2 (08:51→17:36)
[2021-03-13] MEDS: Escitalopram Oxalate 5 MG TABLET PO (08:51)
[2021-03-13] MEDS: Docusate Sodium 100 MG CAPSULE PO (08:51)
[2021-03-13] MEDS: busPIRone HCl 5 MG TABLET PO (08:51)
[2021-03-13 08:52] VITALS: BP 122/65; PULSE 70
[2021-03-13] MEDS: Doxazosin Mesylate 2 MG TABLET PO (08:52)
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
[2021-03-13 16:50] VITALS: BP 127/69; PULSE 99; TEMP 36.7
[2021-03-13] MEDS: Montelukast Sodium 10 MG TABLET PO (20:10)
[2021-03-13] MEDS: Amitriptyline HCl 25 MG TABLET 50 MG PO (20:10)
[2021-03-13] MEDS: clonazePAM 1 MG TABLET PO (20:10)
[2021-03-13] MEDS: OLANZapine 5 MG TABLET PO (20:10)
[2021-03-13] MEDS: Zolpidem Tartrate 5 MG TABLET 10 MG PO (20:10)
[2021-03-13] MEDS: metHOTREXate sodium 2.5 MG TABLET 25 MG PO (20:17)
--- NOTE | 2021-03-13 22:09 | PC.NURSE ---
Pt signed a 3-day notice, up on 03/16/21
[2021-03-14] MEDS: hydrOXYzine HCL 25 MG TABLET PO (00:07)
[2021-03-14] MEDS: oxyCODONE HCl Immed Release 5 MG TABLET PO ×5 (00:08→20:39)
[2021-03-14 06:30] VITALS: BP 116/55; PULSE 78; TEMP 36.2
[2021-03-14] MEDS: Fluconazole 100 MG TABLET PO (09:38)
[2021-03-14] MEDS: clonazePAM 1 MG TABLET PO ×2 (09:38→20:29)
[2021-03-14] MEDS: OLANZapine 2.5 MG TABLET PO ×2 (09:38→11:31)
[2021-03-14] MEDS: busPIRone HCl 5 MG TABLET PO (09:38)
[2021-03-14 09:39] VITALS: BP 122/69; PULSE 85
[2021-03-14] MEDS: Multivitamin TABLET 1 TAB PO (09:39)
[2021-03-14] MEDS: Docusate Sodium 100 MG CAPSULE PO ×2 (09:39→20:29)
[2021-03-14] MEDS: Calcium Carbonate 750 MG TAB.CHEW PO ×2 (09:39→19:01)
[2021-03-14] MEDS: predniSONE 20 MG TABLET 40 MG PO (09:39)
[2021-03-14] MEDS: Topiramate 100 MG TABLET PO ×2 (09:39→20:29)
[2021-03-14] MEDS: Doxazosin Mesylate 2 MG TABLET PO (09:39)
[2021-03-14] MEDS: Escitalopram Oxalate 5 MG TABLET PO (09:39)
[2021-03-14] MEDS: PARoxetine HCL 40 MG TABLET PO (09:39)
[2021-03-14] MEDS: Ergocalciferol (Vitamin D2) 1,250 MCG CAPSULE 1250 MCG PO (09:39)
[2021-03-14] MEDS: Fluticasone/Vilanterol 200/25 BLST.W.DEV 1 PUFF INHALE (09:47)
[2021-03-14 16:28] VITALS: BP 129/75; PULSE 80; TEMP 36.2; O2SAT 97
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
[2021-03-14] MEDS: Acetaminophen 325 MG TABLET 650 MG PO (19:00)
[2021-03-14] MEDS: Montelukast Sodium 10 MG TABLET PO (20:30)
[2021-03-14] MEDS: Amitriptyline HCl 25 MG TABLET 50 MG PO (20:30)
[2021-03-14] MEDS: OLANZapine 5 MG TABLET PO (20:30)
[2021-03-14] MEDS: Zolpidem Tartrate 5 MG TABLET 10 MG PO (20:30)
[2021-03-15] MEDS: oxyCODONE HCl Immed Release 5 MG TABLET PO ×4 (04:45→21:48)
[2021-03-15] MEDS: clonazePAM 1 MG TABLET PO ×2 (08:54→21:00)
[2021-03-15] MEDS: predniSONE 20 MG TABLET 40 MG PO (08:54)
[2021-03-15] MEDS: Fluticasone/Vilanterol 200/25 BLST.W.DEV 1 PUFF INHALE (08:54)
[2021-03-15 08:55] VITALS: BP 133/67; PULSE 97
[2021-03-15] MEDS: busPIRone HCl 5 MG TABLET PO (08:55)
[2021-03-15] MEDS: PARoxetine HCL 40 MG TABLET PO (08:55)
[2021-03-15] MEDS: Multivitamin TABLET 1 TAB PO (08:55)
[2021-03-15] MEDS: Calcium Carbonate 750 MG TAB.CHEW PO ×2 (08:55→16:48)
[2021-03-15] MEDS: Escitalopram Oxalate 5 MG TABLET PO (08:55)
[2021-03-15] MEDS: Topiramate 100 MG TABLET PO ×2 (08:55→21:01)
[2021-03-15] MEDS: Doxazosin Mesylate 2 MG TABLET PO (08:55)
[2021-03-15] MEDS: Fluconazole 100 MG TABLET PO (08:55)
[2021-03-15] MEDS: OLANZapine 2.5 MG TABLET PO ×2 (08:55→12:18)
--- NOTE | 2021-03-15 12:11 | P.PNPSI_ITS ---
Subjective Subjective Date of Service: 03/15/21 Reason For Visit: Severe recurrent major depression Subjective Notes: Conditional Voluntary Healthcare Proxy: No Guardianship: No Medical Problems Affecting Mental Status: No Interim History: Pt discussed depressive/anxious/PTSD sx. Reviewed medications, rationale for use Pt is on a TDN to 03/16. She will leave as she needs Stelara infusion. Considering PHP, but would need to borrow a tablet from her daugher. Attempted to reach daughter Addie Nunez [phone] without success to discuss pt borrowing a tablet. Medication Compliance: Yes Side effects from medications: No Attending Groups: Yes Review of Systems Reports memory loss Psychiatric: Reports anxiety, Reports depression, Reports difficulty con centrating, Reports auditory hallucinations, Reports hopelessness, Reports irritability and Reports memory loss Mental Status Exam Mental Status Exam Patient Appearance: Appropriate Patient Orientation: Person, Place, Time and Situation Level of Consciousness: Alert Patient Behavior: Appropriate, Talkative and Cooperative Mood Description: Depressed and Anxious Affect Description: Anxious and Flat Patient Cognition Impaired: No Ability to Follow Directions: Good Speech Pattern: Spontaneous Speech Memory Description: Intact Hallucinations: Auditory Delusions: Not Present Thought Process: Rumination Thought Content: positive for Perseveration and positive for Suicidal Ideation (denies) Depressive Symptoms: Increased Anxiety and Low Self Esteem Judgement: Good Diagnostics Vital Signs (24Hr): Vital Signs - 24 hr 03/14/21 16:28 03/15/21 08:55 Temperature 97.2 F Pulse Rate 80 97 Blood Pressure 129/75 133/67 Pulse Oximetry 97 Medications Medications Current Medications Generic Name Dose Route Start Last Admin Trade Name Freq PRN Reason Stop Dose Admin Acetaminophen 650 mg 03/09/21 16:31 03/14/21 19:00 Acetaminophen 325 Mg Tablet PO 650 mg Q6H PRN Administration Pain, Mild (Pain Scale 1-3) Al Hydroxide/Mg Hydroxide 30 ml 03/09/21 16:31 Magnesium Hydrox/Alum Hydrox 30 Ml Oral.Susp PO Q6H PRN Heartburn/Nausea Albuterol Sulfate 2 puff 03/09/21 16:31 Albuterol Sulfate 90 Mcg 8 Gm Inhaler INHALE QID PRN Shortness Of Breath Amitriptyline HCl 50 mg 03/09/21 21:00 03/14/21 20:30 Amitriptyline Hcl 25 Mg Tablet PO 50 mg BEDTIME JUANCHO Administration Artificial Tears 1 drop 03/09/21 16:31 Artificial Tears 15 Ml Drops EYE-BOTH QID PRN Dry Eye(S) Buspirone HCl 5 mg 03/10/21 09:00 03/15/21 08:55 Buspirone Hcl 5 Mg Tablet PO 5 mg DAILY JUANCHO Administration Calcium Carbonate 750 mg 03/09/21 17:30 03/15/21 08:55 Calcium Carbonate 750 Mg Tab.Chew PO 750 mg BIDPC JUANCHO Administration Clonazepam 1 mg 03/13/21 21:00 03/15/21 08:54 Clonazepam 1 Mg Tablet PO 1 mg BID JUANCHO Administration Docusate Sodium 100 mg 03/11/21 13:15 03/15/21 11:27 Docusate Sodium 100 Mg Capsule PO Not Given BID [facility] Doxazosin Mesylate 2 mg 03/12/21 09:00 03/15/21 08:55 Doxazosin Mesylate 2 Mg Tablet PO 2 mg DAILY JUANCHO Administration Protocol Ergocalciferol 1,250 mcg 03/14/21 09:00 03/14/21 09:39 Ergocalciferol (Vitamin D2) 1,250 Mcg Capsule PO 1,250 mcg We@0900 JUANCHO Administration Escitalopram Oxalate 5 mg 03/11/21 09:00 03/15/21 08:55 Escitalopram Oxalate 5 Mg Tablet PO 5 mg DAILY JUANCHO Administration Fluconazole 100 mg 03/10/21 09:00 03/15/21 08:55 Fluconazole 100 Mg Tablet PO 03/21/21 09:01 100 mg DAILY JUANCHO Administration Fluticasone/Vilanterol 1 puff 03/10/21 08:00 03/15/21 08:54 Fluticasone/Vilanterol 200/25 Blst.W.Dev INHALE 1 puff RDAILY JUANCHO Administration Hydroxyzine HCl 25 mg 03/09/21 16:31 03/14/21 00:07 Hydroxyzine Hcl 25 Mg Tablet PO 25 mg BEDTIME PRN Administration Anxiety Magnesium Hydroxide 30 ml 03/09/21 16:31 03/11/21 13:34 Milk Of Magnesia 30 Ml Oral.Susp PO 30 ml DAILY PRN Administration Constipation Methotrexate 25 mg 03/13/21 18:53 03/13/21 20:17 Methotrexate Sodium 2.5 Mg Tablet PO 25 mg Tu JUANCHO Administration Montelukast Sodium 10 mg 03/09/21 21:00 03/14/21 20:30 Montelukast Sodium 10 Mg Tablet PO 10 mg BEDTIME JUANCHO Administration Multivitamins/Vitamin C 1 tab 03/10/21 09:00 03/15/21 08:55 Multivitamin Tablet PO 1 tab DAILY JUANCHO Administration Olanzapine 5 mg 03/11/21 21:00 03/14/21 20:30 Olanzapine 5 Mg Tablet PO 5 mg BEDTIME JUANCHO Administration Olanzapine 2.5 mg 03/11/21 11:09 03/14/21 11:31 Olanzapine 2.5 Mg Tablet PO 2.5 mg BID PRN Administration agitation, auditory perceptual alt Olanzapine 2.5 mg 03/14/21 09:00 03/15/21 08:55 Olanzapine 2.5 Mg Tablet PO 2.5 mg DAILY JUANCHO Administration Ondansetron HCl 4 mg 03/13/21 15:22 Ondansetron Odt 4 Mg Tab.Rapdis TRANSLINGU Q8H PRN Nausea and Vomiting Oxycodone HCl 5 mg 03/10/21 21:36 03/15/21 11:37 Oxycodone Hcl Immed Release 5 Mg Tablet PO 5 mg Q4H PRN Administration Pain, Mild (Pain Scale 1-3) Paroxetine HCl 40 mg 03/10/21 09:00 03/15/21 08:55 Paroxetine Hcl 40 Mg Tablet PO 40 mg DAILY JUANCHO Administration Polyethylene Glycol 17 gm 03/11/21 13:15 03/15/21 11:27 Polyethylene Glycol 3350 17 Gm Powd.Pack PO Not Given BID JUANCHO Prednisone 40 mg 03/10/21 09:00 03/15/21 08:54 Prednisone 20 Mg Tablet PO 03/17/21 17:14 40 mg DAILY JUANCHO Administration Topiramate 100 mg 03/09/21 21:00 03/15/21 08:55 Topiramate 100 Mg Tablet PO 100 mg BID JUANCHO Administration Trazodone HCl 50 mg 03/09/21 16:31 03/13/21 02:59 Trazodone Hcl 50 Mg Tablet PO 50 mg BEDTIME PRN Administration Insomnia Zolpidem Tartrate 10 mg 03/13/21 21:00 03/14/21 20:30 Zolpidem Tartrate 5 Mg Tablet PO 10 mg BEDTIME JUANCHO Administration Allergies Allergies Allergy/AdvReac Type Severity Reaction Status Date / Time aspirin [ASA] Allergy Intermediate RASH Verified 11/17/20 15:07 azathioprine [From IMURAN] Allergy Intermediate PANCREATIC Verified 11/17/20 15:07 INFLAMMATION ibuprofen [IBUPROFEN] Allergy Intermediate TOLD NOT Verified 11/17/20 15:07 TO TAKE levofloxacin [From LEVAQUIN] Allergy Mild YEAST Verified 11/17/20 15:07 INFECTIONS Assessment & Plan Assessment & Plan (1) Recurrent major depression-severe: Status: Acute Code(s): F33.2 - Major depressive disorder, recurrent severe without psychotic features Assessment and Plan: -Continue Olanzapine 2.5 mg AM; 5 mg HS, 2.5 mg bid prn -Discontinue Lorazepam. -Continue Klonopin to 1 mg bid -Increase Lexapro 10 mg a.m. 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 -Change of pain med to Oxycodone -Goal of 2 bowel mvts daily-Miralax added. -Continue weekly steroid taper per medicine. 03/14/21: Continue current regime Pt requests we make arrangments for her Stelara infusion. 03/15/21: Lexapro increased to 10 mg. Paxil decreased to 35 mg. Pt is unable to have Stelara while in pt. She will discharge 03/16 and make arrangments. Greater than 50% of the session was spent on counseling and/or coordination of care Reason for contiued inpatient stay Substantial Risk for: inability to function, rapid decompensation and med/psych decompensation
[2021-03-15 16:25] VITALS: BP 126/73; PULSE 80; RESP 18; TEMP 35.6; O2SAT 96
[2021-03-15] MEDS: Docusate Sodium 100 MG CAPSULE PO (21:00)
[2021-03-15] MEDS: Montelukast Sodium 10 MG TABLET PO (21:00)
[2021-03-15] MEDS: polyethylene glycoL 3350 17 GM POWD.PACK PO (21:01)
[2021-03-15] MEDS: Amitriptyline HCl 25 MG TABLET 50 MG PO (21:01)
[2021-03-15] MEDS: Zolpidem Tartrate 5 MG TABLET 10 MG PO (21:01)
[2021-03-15] MEDS: OLANZapine 5 MG TABLET PO (21:01)
[2021-03-16] MEDS: oxyCODONE HCl Immed Release 5 MG TABLET PO ×2 (04:23→11:05)
[2021-03-16 06:42] VITALS: BP 114/68; PULSE 73; RESP 16; TEMP 36.3; O2SAT 96
[2021-03-16 11:04] VITALS: BP 118/63; PULSE 68; RESP 18; TEMP 36.5; O2SAT 98
[2021-03-16] MEDS: Fluticasone/Vilanterol 200/25 BLST.W.DEV 1 PUFF INHALE (11:05)
[2021-03-16] MEDS: Calcium Carbonate 750 MG TAB.CHEW PO (11:05)
[2021-03-16 11:06] VITALS: BP 118/63; PULSE 68
[2021-03-16] MEDS: clonazePAM 1 MG TABLET PO (11:06)
[2021-03-16] MEDS: Docusate Sodium 100 MG CAPSULE PO (11:06)
[2021-03-16] MEDS: Escitalopram Oxalate 10 MG TABLET PO (11:06)
[2021-03-16] MEDS: Doxazosin Mesylate 2 MG TABLET PO (11:06)
[2021-03-16] MEDS: busPIRone HCl 5 MG TABLET PO (11:06)
[2021-03-16] MEDS: Multivitamin TABLET 1 TAB PO (11:07)
[2021-03-16] MEDS: predniSONE 20 MG TABLET 40 MG PO (11:07)
[2021-03-16] MEDS: OLANZapine 2.5 MG TABLET PO ×2 (11:07→13:13)
[2021-03-16] MEDS: Fluconazole 100 MG TABLET PO (11:07)
[2021-03-16] MEDS: PARoxetine HCL 10 MG TABLET 35 MG PO (11:07)
[2021-03-16] MEDS: Topiramate 100 MG TABLET PO (11:08)
--- NOTE | 2021-03-16 16:49 | PM.PSYDC ---
DS: Providers Provider Date of Service: 03/16/21 Date of admission: 03/09/21 16:13 Date of discharge: 03/16/21 Primary care physician: Unknown Physician Admitting clinician: Christy Carcamo Attending physician on admission: Meek Waddell Attending physician on discharge: Meek Waddell Discharging clinician: Christy Carcamo DS: Diagnosis Discharge Diagnosis (1) Recurrent major depression-severe: Start date: 03/10/21 Status: Acute DS: Medications Discharge Medications Home Medications: Home Medications Medication Instructions Recorded Confirmed amitriptyline 2 tab PO BEDTIME 10/05/20 03/01/21 budesonide-formoterol [Symbicort] 2 puff PO BID 10/05/20 03/01/21 calcium carbonate-vitamin D3 1 tab PO BID 10/05/20 03/01/21 docusate sodium [DOK] 1 cap PO BID PRN 10/05/20 03/01/21 ergocalciferol (vitamin D2) 1 cap PO QWEEK 10/05/20 03/01/21 methotrexate sodium 10 tab PO QWEEK 10/05/20 03/01/21 montelukast 1 tab PO BEDTIME 10/05/20 03/01/21 multivitamin 1 tab PO QAM 10/05/20 03/01/21 topiramate 1 tab PO BID 10/05/20 03/01/21 zolpidem 1 tab PO BEDTIME 10/05/20 03/01/21 albuterol sulfate 2 puff PO QID PRN 03/01/21 03/01/21 buspirone 1 tab PO DAILY 03/01/21 03/01/21 calcium carbonate [Tums E-X] 600 mg PO BIDPC 03/01/21 03/01/21 polyvinyl alcohol [Artificial 1 drp OPHTHALMIC (EYE) QID PRN 03/01/21 03/01/21 Tears (polyvin alc)] Previous Rx's Medication Instructions Recorded vitamin B complex 1 tab PO DAILY 60 Days #60 tab 02/01/21 ustekinumab 90 mg/mL subcutaneous 90 mg SUBCUT Q4W 28 Days #1 ml 02/02/21 syringe ondansetron 4 mg PO Q8H PRN #20 tab 03/08/21 polyethylene glycol 3350 17 g PO DAILY 10 Days ea 03/08/21 clonazepam 1 mg PO BID #30 tab 03/16/21 doxazosin [Cardura] 2 mg PO DAILY #10 tab 03/16/21 escitalopram oxalate 10 mg PO DAILY #30 tab 03/16/21 fluconazole 100 mg PO DAILY 12 Days #5 tab 03/16/21 olanzapine 2.5 mg PO DAILY #15 tab 03/16/21 olanzapine 5 mg PO BEDTIME #15 tab 03/16/21 oxycodone 5 mg PO Q4H PRN #10 tab 03/16/21 paroxetine HCl [Paxil] 30 mg PO DAILY #30 tab 03/16/21 prednisone 10 mg PO DAILY #7 tab 03/16/21 prednisone 20 mg PO DAILY #7 tab 03/16/21 prednisone 30 mg PO DAILY #11 tab 03/16/21 prednisone 40 mg PO DAILY #1 tab 03/16/21 Mental Status Exam Mental Status Exam Patient Appearance: Appropriate Patient Orientation: Person, Place, Time and Situation Level of Consciousness: Alert Patient Behavior: Appropriate, Talkative and Cooperative Mood Description: Apprehensive (children were rushing her on discharge) Affect Description: Apprehensive Patient Cognition Impaired: No Ability to Follow Directions: Good Speech Pattern: Spontaneous Speech Memory Description: Intact Hallucinations: None Delusions: Not Present Perceptual Disturbances: Depersonalization and Derealization Thought Process: Goal Oriented Thought Content: positive for Goal Oriented and positive for Suicidal Ideation (denies) Judgement: Good Data Data Completed and Pending Completed studies during hospitalization [Text1]: 03/10/21 03/10/21 03/10/21 07:24 07:24 07:24 Estimat Average Glucose 108 Hemoglobin A1c % 5.4 Triglycerides 194 Cholesterol 205 LDL Cholesterol, Calc 112 HDL Cholesterol 55 Vitamin B12 262 Folate 6.7 TSH 0.58 Free T4 0.83 DS: Summary Hospital Course Hospital Course: 50 yo female, transfer from medicine after Chron's Colitis exacerbation. Reports feeling overwhelmed with depressive symptoms and was unable to manage these feeling. Reported passive SI with tentative plan to walk into traffic. Reports her supports are minimal and her parents are elderly and unable to be a support. She in turn cares for them. She reported racing thoughts, feeling the entire world was on her shoulders and panic. Reports a trauma history and having symptoms of depression since childhood. Pt signed a conditional voluntary and then a three day notice-mainly so schedule her Stelara infusion and due to a conflict with a room-mate. She was able to begin to make progress by utilizing milieu groups and the social service and nursing teams to begin to explore coping alternatives. Medications were adjusted. Paxil taper was initiated. Lexapro cross titration was initiated. Klonopin was increased temporarily, Mirtazapine was discontinued and Olanzapine was initiated. information services manager provided resources for pt to discuss the care of her parents and pt as she was going to leave before we had more grounded results was encouraged to attend [facility] so she would continue to learn coping skills and participate in group therapy. Time spent discussing smoking cessation with patient: 3 to 10 minutes Status at Discharge Cognitive/behavioral status at discharge: Alert, denies SI, HI. Non-psychotic, Apprehensive Functional status at discharge: independent ambulation Overall status at discharge: patient is progressing back to baseline Time Spent with Patient Time attestation: Total time spent providing and/or coordinating discharge services:40 Time spent: Greater than 30 minutes Discharge Plan Discharge Anticipated Discharge Date/Time: 03/16/21 14:00 Patient Disposition: Home, Self-Care Discharge Diagnosis: Severe Recurrent Major Depression PTSD Referrals: [facility] [Other] (Call for resources and assistance setting up services for your parents) [facility] [Other] (Call for resources and assistance setting up services for your parents) Susie Gutierres (therapy intake) [Other] - 03/17/21 12:30 pm (Telehealth appointment) Amy Jin (psychiatrist) [Other] - 04/10/21 11:00 am (Telehealth appointment) Amy Jin (psychiatrist) [Other] - 05/08/21 9:00 am (Telehealth appointment) [facility] [Other] (PHP will call to give you the time/date of intake appointment) Xochitl Haines NP [Nurse Practitioner] - 03/20/21 3:30 pm (VIA PHONE. ) Discharge Medications: Discontinued budesonide 3 mg capsule,delayed,extend.release 9 mg PO DAILY 30 Days Qty: 90 RF: 3 clonazepam 0.5 mg tablet 1 tab PO DAILY RF: 0 tramadol 50 mg tablet 1 tab PO BID PRN (Reason: Pain) RF: 0 amlodipine 10 mg tablet 1 tab PO QAM RF: 0 Hold Instructions: Monitor BP at home before restarting it. paroxetine HCl 40 mg tablet 1 tab PO QAM RF: 0 doxazosin 2 mg tablet 1 tab PO BEDTIME RF: 0 lidocaine 5 % adhesive patch,medicated 1 patch topical DAILY RF: 0 fluconazole 100 mg Tablet 100 mg PO DAILY 12 Days Qty: 12 RF: 0 prednisone 10 mg tablet See Taper mg PO DAILY Qty: 70 RF: 0 No Action multivitamin Tablet 1 tab PO QAM RF: 0 prednisone 20 mg tablet See Taper mg PO DAILY RF: 0 olanzapine 5 mg tablet 1 tab PO BEDTIME RF: 0 clonazepam 1 mg tablet 1 tab PO BID RF: 0 olanzapine 2.5 mg tablet 1 tab PO DAILY RF: 0 amitriptyline 25 mg tablet 2 tab PO BEDTIME RF: 0 methotrexate sodium 2.5 mg tablet 10 tab PO TU RF: 0 amlodipine 10 mg tablet 1 tab PO QAM RF: 0 paroxetine HCl 30 mg tablet 1 tab PO QAM RF: 0 lidocaine 5 % adhesive patch,medicated 1 patch topical NEEDED PRN (Reason: Pain) RF: 0 docusate sodium 100 mg capsule 1 cap PO BID RF: 0 montelukast 10 mg tablet 1 tab PO BEDTIME RF: 0 mirtazapine 15 mg tablet 1 tab PO BEDTIME RF: 0 ergocalciferol (vitamin D2) 1,250 mcg (50,000 unit) capsule 1 cap PO WE RF: 0 budesonide 3 mg capsule,delayed,extend.release 3 cap PO QAM RF: 0 zolpidem 10 mg tablet 1 tab PO BEDTIME RF: 0 topiramate 100 mg tablet 1 tab PO BID RF: 0 oxycodone 5 mg tablet 1 tab PO Q4H PRN (Reason: pain) RF: 0 vitamin B complex-folic acid [B Complex 1 (with folic acid)] 0.4 mg tablet 1 tab PO QAM RF: 0 Stelara 90 mg/mL syringe 1 syringe subcut Q28D RF: 0 cephalexin 500 mg capsule 500 mg PO Q12H 5 Days Qty: 10 RF: 0 doxazosin 2 mg tablet 1 tab PO BEDTIME RF: 0 escitalopram oxalate 10 mg tablet 1 tab PO QAM RF: 0 calcium carbonate [Tums E-X] 300 mg (750 mg) Tablet,Chewable 300 mg PO BIDPC RF: 0 Discharge Orders: Discharge Order (Routine); Ordered 03/16/21 Ordered By: Christy Carcamo Diet: other Activity on Discharge: As tolerated Stand Alone Forms: Patient Portal Discharge page, Community Support Care Plan Goals: Mood stabilization Health Concerns: Depression PTSD Chron's Colitis Rhemmatoid arthritis Hypertension Plan of Treatment: Take medications as directed.. Keep all appointments. Call to schedule your Stelera injection. New Medications: Lexapro 10 mg daily Paxil 30 mg daily-take this dosage for 2 weeks, then decrease by 5 mg every two weeks until discontinued Klonopin 1 mg twice daily-an increase Olanzapine 2.5 mg in the morning and 5 mg in the evening-for PTSD symptom management Prednisone Taper 30 mg daily from March 182020 20 mg daily from March 25-2020 10 mg daily from April 01-2020 Diflucan 100 mg daily until 03/21/21. Continue Albuterol, Amitriptyline, Buspirone, TUMS, Colace, Cardura, Ergocalaferol, Fluticasone-Vilanterol, Methotrexate, Montelukast, Ondansetron, Oxycodone, Miralax, Topiramate, Ambien. If you are interested in attending Partial Hospital Program, please call [phone] ext [phone] to schedule an intake Assessment: Leesa, you have worked very well while here on M5 on your symptoms. Your work will continue in out patient. You have chosen to leave on a three day notice. Appointments are scheduled, however, please return to the emergency department should your symptoms become worse. Discharge Date/Time: 03/16/21 14:12
== END 2021-03-16 14:12 | disposition home or self-care (01) | DRG 751 ==
PROVIDERS: Admitting Provider Psychiatry & Neurology Psychiatry; Visit Provider Clinical Nurse Specialist Psychiatric/Mental Health, Adult
DX: F33.2 Major depressive disorder, recurrent severe without psychotic features (principal); K50.90 Crohn's disease, unspecified, without complications; Z79.52 Long term (current) use of systemic steroids; Z88.6 Allergy status to analgesic agent; Z79.899 Other long term (current) drug therapy
CPT/HCPCS: 36415; 80061; 82607; 82746; 83036; 84439; 84443; 95816

== ENCOUNTER 2021-03-19 16:25 | Outpatient (REF) | payer MEDICAID, SELFPAY | END 2021-03-19 16:26 | disposition home or self-care (01) | LOC: HO.MDS 16:25 | PROVIDERS: PCP Internal Medicine; Visit Provider Internal Medicine Gastroenterology | DX: K50.118 Crohn's disease of large intestine with other complication (principal) | CPT/HCPCS: 96372; J3357 ==

== ENCOUNTER 2021-03-21 22:20 | Inpatient (IN) | payer OTHER, SELFPAY ==
--- NOTE | ~2021-03-21 | CT_ITS ---
EXAMINATION: CT ABDOMEN AND PELVIS WITH CONTRAST CLINICAL INFORMATION: Left-sided abdominal pain. History of Crohn's. COMPARISON: 03/01/2021 TECHNIQUE: Multidetector volumetric images were obtained from the superior aspect of the liver through the pubic symphysis following administration 85 mL of Omnipaque 350 intravenous contrast. Sagittal and coronal reformatted images were obtained on the technologist's workstation. Oral contrast: No This CT examination was performed using dose optimization techniques as appropriate, variously including the following: *Automated exposure control *Adjustment of mA and/or kV according to patient size (this includes techniques or standardized protocols for targeted exams where dose is matched to indication/reason for exam; i.e. extremities or head) *Use of iterative reconstruction technique DLP: 709 mGy-cm FINDINGS: LUNG BASES: The visualized lung bases are unremarkable. LIVER, GALLBLADDER, AND BILIARY TREE: Liver normal in size, contour and morphology. No focal liver lesions. No intra or extrahepatic biliary dilatation. Gall bladder unremarkable. PANCREAS: Unremarkable. SPLEEN: Unremarkable. ADRENAL GLANDS: Unremarkable. KIDNEYS AND URETERS: The kidneys are normal in size, shape, and attenuation. No hydronephrosis, hydroureter, or calculi seen. No perinephric stranding. BLADDER: Unremarkable. GASTROINTESTINAL TRACT: Previously seen colitis involving the transverse and left colon has resolved. There is persistent homogeneous wall thickening at the rectosigmoid junction within the left hemipelvis, presumably representing chronic intramural fibrosis and mild stricture. Normal appendix. Stomach and small bowel unremarkable. ABDOMINAL WALL: No significant hernia is appreciated. LYMPH NODES: Normal. VASCULAR: Unremarkable. PELVIC VISCERA: Uterus and adnexa unremarkable. OSSEOUS STRUCTURES: No acute or suspicious osseous abnormalities. Loss of disc space height associated with diffuse disc bulge present at L5-S1 CT/CT abdomen pelvis w con IMPRESSION: * Previously seen transverse and left colitis has resolved. 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 * No significant active gastrointestinal inflammation evident on the current exam.
--- NOTE | ~2021-03-21 | CT_ITS ---
EXAMINATION: CT HEAD WITHOUT CONTRAST CT CERVICAL SPINE WITHOUT CONTRAST CLINICAL INFORMATION: Fall COMPARISON: 11.29.2019 TECHNIQUE: Multidetector CT imaging of the head and cervical spine was performed without the use of intravenous contrast. Multiplanar reformats are reviewed. This CT examination was performed using dose optimization techniques as appropriate, variously including the following: *Automated exposure control *Adjustment of mA and/or kV according to patient size (this includes techniques or standardized protocols for targeted exams where dose is matched to indication/reason for exam; i.e. extremities or head) *Use of iterative reconstruction technique DLP: 1266 mGy-cm. FINDINGS: There is no evidence of acute intracranial hemorrhage or territorial infarction. No abnormal mass effect or midline shift is seen. [place] to white matter differentiation is well preserved. No extra-axial fluid collections are identified. The ventricles are normal in size. Mild patchy subcortical and periventricular white matter low-attenuation changes redemonstrated. The osseous structures and soft tissues are normal. The mastoid air cells and visualized portions of the paranasal sinuses are well-aerated. Atlantooccipital alignment is maintained. The vertebral bodies and posterior elements align normally. No acute fracture or subluxation. Vertebral body heights are maintained.No significant degenerative changes are appreciated. No central canal or foraminal narrowing. The cervicomedullary junction and spinal cord are grossly unremarkable. The paraspinal soft tissues are unremarkable. The imaged lung apices are clear CT/CT cervical spine wo con IMPRESSION: No acute intracranial pathology. No cervical spine fracture or malalignment.
--- NOTE | ~2021-03-21 | CT_ITS ---
EXAMINATION: CT HEAD WITHOUT CONTRAST CT CERVICAL SPINE WITHOUT CONTRAST CLINICAL INFORMATION: Fall COMPARISON: 11.29.2019 TECHNIQUE: Multidetector CT imaging of the head and cervical spine was performed without the use of intravenous contrast. Multiplanar reformats are reviewed. This CT examination was performed using dose optimization techniques as appropriate, variously including the following: *Automated exposure control *Adjustment of mA and/or kV according to patient size (this includes techniques or standardized protocols for targeted exams where dose is matched to indication/reason for exam; i.e. extremities or head) *Use of iterative reconstruction technique DLP: 1266 mGy-cm. FINDINGS: There is no evidence of acute intracranial hemorrhage or territorial infarction. No abnormal mass effect or midline shift is seen. [place] to white matter differentiation is well preserved. No extra-axial fluid collections are identified. The ventricles are normal in size. Mild patchy subcortical and periventricular white matter low-attenuation changes redemonstrated. The osseous structures and soft tissues are normal. The mastoid air cells and visualized portions of the paranasal sinuses are well-aerated. Atlantooccipital alignment is maintained. The vertebral bodies and posterior elements align normally. No acute fracture or subluxation. Vertebral body heights are maintained.No significant degenerative changes are appreciated. No central canal or foraminal narrowing. The cervicomedullary junction and spinal cord are grossly unremarkable. The paraspinal soft tissues are unremarkable. The imaged lung apices are clear CT/CT head/brain wo con IMPRESSION: No acute intracranial pathology. No cervical spine fracture or malalignment.
--- NOTE | ~2021-03-21 | XR_ITS ---
EXAMINATION: CR SHOULDER, LEFT CLINICAL INFORMATION: Pain. Decreased range of motion. COMPARISON: Left shoulder films dated 06/12/2018. TECHNIQUE: Four views of the left shoulder. FINDINGS: No acute fracture or dislocation is seen. The left glenohumeral joint and acromioclavicular joints are intact. Mild degenerative changes seen in the left AC joint with nonbursal surface spurring noted. The included ribs are intact. Low lung volumes are demonstrated with prominence of lung markings, unclear if related to underexpansion or if due to underlying lung disease. Please correlate clinically and consider obtaining standard chest x-ray for further assessment. XR/XR shoulder LT min 2V IMPRESSION: 1. No evidence of acute left shoulder fracture or dislocation. 2. Included lungs incompletely assessed as discussed above. Consider follow-up chest x-ray for further evaluation.
--- NOTE | ~2021-03-21 | CT_ITS ---
EXAMINATION: CT HEAD WITHOUT CONTRAST CLINICAL INFORMATION: Headache. Confusion. COMPARISON: CT scan of the head dated 03/22/2021 and 11/29/2019. TECHNIQUE: Contiguous axial imaging was performed from the skull base to vertex without intravenous administration of contrast. This CT examination was performed using dose optimization techniques as appropriate, variously including the following: *Automated exposure control *Adjustment of mA and/or kV according to patient size (this includes techniques or standardized protocols for targeted exams where dose is matched to indication/reason for exam; i.e. extremities or head) *Use of iterative reconstruction technique DLP: 649.90 mGy-cm FINDINGS: There is no evidence of acute intracranial hemorrhage or territorial infarction. No abnormal mass effect or midline shift is seen. [place] to white matter differentiation is well preserved. No extra-axial fluid collections are identified. The ventricles are normal in size. There is no abnormal attenuation within the brain parenchyma. The osseous structures and soft tissues are normal. There is mild opacification of the right sphenoid sinus. The mastoid air cells and remainder of the visualized portions of the paranasal sinuses are well aerated. CT/CT head/brain wo con IMPRESSION: No acute intracranial pathology. Mild right sphenoid sinus disease.
[2021-03-21 22:24] VITALS: BP 120/76; PULSE 80; O2SAT 96; BMI 36.6
[2021-03-21 22:26] VITALS: BP 115/59; PULSE 83; RESP 19; TEMP 36.6; O2SAT 94
--- NOTE | 2021-03-21 22:37 | ECG_ITS ---
Test Reason : FALL Blood Pressure : / mmHG Vent. Rate : 082 BPM Atrial Rate : 082 BPM P-R Int : 140 ms QRS Dur : 078 ms QT Int : 386 ms P-R-T Axes : 051 014 023 degrees QTc Int : 450 ms Normal sinus rhythm Normal ECG When compared with ECG of 09-MAR-2021 15:16, No significant changes seen Referred By: Kenia Caro Electronically Signed By:ASHLEY BENNETT
[2021-03-21 22:55] LABS: MANUAL DIFF FLAG NO
[2021-03-21 22:56] LABS: Basophils Percent Auto 0.1 % (0-2); Hematocrit 33.7 % (37-47); Hemoglobin 10.7 g/dl (12.0-16.0); Imm Gran Abs Auto 0.05 X10*3/uL (0.00-0.03); Imm Gran Pct Auto 0.4 % (0.0-0.4); Lymphocytes Absolute Auto 0.8 X10*3/uL (1.2-4.9); Lymphocytes Percent Auto 7.5 % (20-40); Mean Corpuscular HGB Conc 31.8 g/dl (31.0-35.0); Mean Corpuscular Hemoglobin 27.9 pg (27.0-33.0); Mean Corpuscular Volume 87.8 fL (80-98); Mean Platelet Volume 11.1 fL (9.4-12.3); Monocytes Absolute Auto 0.4 X10*3/uL (0.1-1.2); Monocytes Percent Auto 3.9 % (2-11); Neutrophils Absolute Auto 9.9 X10*3/uL (2.0-8.3); Neutrophils Percent Auto 88.1 % (45-73); Platelet Count 254 X10*3/uL (160-400); Red Blood Count 3.84 X10*6/uL (4.20-5.50); Red Cell Distribution Width 16.4 % (11.0-16.0); White Blood Count 11.2 X10*3/uL (4.8-10.8)
[2021-03-21 23:24] LABS: Ethanol < 10 mg/dL
[2021-03-21 23:30] LABS: Alanine Aminotransferase 21 U/L (0-31); Albumin Level 3.8 g/dL (3.5-5.0); Alkaline Phosphatase 78 U/L (39-117); Anion Gap 12 (12-20); Aspartate Amino Transferase 19 U/L (5-31); Bilirubin Total < 0.2 mg/dL (0.0-1.0); Blood Urea Nitrogen 12 mg/dL (9-16); Calcium 8.7 mg/dL (8.4-10.2); Carbon Dioxide 22 mmol/L (22-29); Chloride 113 mmol/L (96-108); Creatinine Clr Calc Pharmacy 71.9; Estimated Glomerular Filt Rate > 60; Glucose Random 139 mg/dL (60-115); Potassium 3.8 mmol/L (3.3-5.1); Sodium 143 mmol/L (135-145); Total Protein 6.6 g/dL (6.5-8.0)
[2021-03-21 23:37] LABS: Troponin-I High Sensitivity < 3.5 ng/L (<3.5-17.0)
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
--- NOTE | 2021-03-21 23:42 | PC.NURSE ---
KAYLEEN MARTINEZ ([facility]) [phone]
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
--- NOTE | 2021-03-21 23:50 | PC.NURSE ---
2330: PT REPORTED NEED TO USE BATHROOM. BEDPAN OFFERED. PT REFUSED STATING SHE WANTED COMMODE. INTERNATIONAL EXCHANGE COORDINATOR BROUGHT TO BEDSIDE, NEED FOR IV AND C SPINE COLLAR EXPLAINED. PT REQUESTING A TAIL BOARD MAN WHO IS BETTER [THAN THIS PATIENT RELATIONS SPECIALIST] EVALUATE THE SITUATION. COMB WINDER REEXPLAINED SITUATION. PT ACCEPTING INFORMATION AT THIS TIME.
[2021-03-21 23:53] VITALS: PULSE 78; O2SAT 100
[2021-03-22] VITALS (11 sets, daily range): BP systolic 115–185; BP diastolic 61–112; PULSE 68–87; RESP 12–18; TEMP 35.9–36.6; O2SAT 98–99
[2021-03-22 00:09] LABS: Glucose Urine UA NEG (NEG); Leukocyte Esterase Urine 1+ (NEG); Nitrite Urine NEG (NEG); Specific Gravity - Urine 1.015 (1.005-1.025); UACC Culture Trigger YES; Urine Blood NEG (NEG); Urine Ketones NEG (NEG); Urine Protein NEG (NEG-TRACE)
[2021-03-22 00:13] LABS: Appearance Urine CLEAR; Color Urine YELLOW
[2021-03-22 00:16] LABS: Bacteria Urine 1+ /LPF; Squamous Epithelial Cell Urine 1+ /LPF; UPreg QC Valid YES; Urine Pregnancy NEGATIVE (NEGATIVE)
[2021-03-22 00:35] LABS: Amphetamine Screen Urine Not Detected (Not Detect); Barbiturates, Urine Not Detected (Not Detect); Benzodiazepines Screen Urine Not Detected (Not Detect); Cannabinoid Screen Urine POSITIVE (Not Detect); Cocaine Screen Urine Not Detected (Not Detect); Opiate Screen Urine Not Detected (Not Detect); Phencyclidine Screen Urine Not Detected (Not Detect)
[2021-03-22 02:08] LABS: Glucose, Whole Blood 167 mg/dL (60-115)
[2021-03-22] MEDS: cephALEXin 500 MG CAPSULE PO ×2 (03:45→21:00)
[2021-03-22] MEDS: iohexoL 350 MG/ML 100 ML INFUS..BTL 85 ML IV (04:07)
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
--- NOTE | 2021-03-22 09:50 | PC.NURSE ---
ASSUMED CARE OF PATIENT AT 0700 PATIENT HAS CONSISTENTLY RANG HER CALL [facility] COMPLAINING OF GENERALIZED PAIN. PT TEARFUL DURING ENCOUNTER. CARE TEAM CALLED IN ORDER TO FIGURE OUT AN ETA OF PATIENTS ASSESSMENT. PER NORMAN HE WILL BE IN TO ASSESS HER SOON.
--- NOTE | 2021-03-22 11:14 | PC.NURSE ---
patient was going to be discharged home as she has appropriate services outpatient but the patient made statements to this RN that if she went home, she felt like she would hurt herself and was unsafe. care team made aware and dr. mcneill made aware. patient now has 1:1 sitter and was changed over to psych clothing
[2021-03-22] MEDS: Acetaminophen 325 MG TABLET 650 MG PO ×2 (11:44→17:42)
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
--- NOTE | 2021-03-22 11:53 | MHC.CARE ---
1042 ? ED staff called CARE Team.? Pt was advised of discharge and stated that she did not feel safe going home and expressed concerns that she would harm herself.? CARE Team advised ED staff to refer pt to [facility] via [employer].
[2021-03-22] MEDS: LORazepam 1 MG TABLET 2 MG PO (12:03)
--- NOTE | 2021-03-22 12:08 | PC.NURSE ---
patient increasing in agitation. this RN went to bring her some PO ativan and patient continued to escalate running out of the emergency room doors and attempting to leave the facility. this RN, security and ED techs aided in the redirection of the patient back to 18H. Patient very resistive to coming back to the ED/back to the bed but was assisted via staff. patient crying, rocking back and forth and very upset. this RN explained to the the patient the need for her to remain and wait to be evaluated by [facility]. PO ativan given to the patient. sitter remains at the bedside.
--- NOTE | 2021-03-22 12:44 | PC.NURSE ---
patient continues to request something for pain and for anxiety/to help her sleep- provider made aware and at patients bedside to discuss with her medication options- IM torodal and IM haldol will be given to the patient
[2021-03-22] MEDS: oxyCODONE HCl Immed Release 5 MG TABLET PO ×2 (13:39→20:39)
[2021-03-22] MEDS: HaloperidoL 5 MG TABLET PO (13:39)
[2021-03-22 16:25] LABS: COVID-19 Test Negative (Negative)
--- NOTE | 2021-03-22 18:44 | PHA.MEDREC ---
Pharmacy Consult ? Medication Reconciliation Pharmacy has completed the medication reconciliation.
--- NOTE | 2021-03-22 19:14 | MHC.CARE ---
CARE Team spoke with SARABJIT , who requested at discharge from - [facility] referral and to review how to access telehealth support with Pt prior to discharge.
[2021-03-22] MEDS: Multivitamin TABLET 1 TAB PO (19:25)
[2021-03-22] MEDS: OLANZapine 2.5 MG TABLET PO (19:25)
[2021-03-22] MEDS: amLODIPine Besylate 10 MG TABLET PO (19:25)
[2021-03-22] MEDS: PARoxetine HCL 30 MG TABLET PO (19:25)
[2021-03-22] MEDS: Escitalopram Oxalate 10 MG TABLET PO (19:25)
[2021-03-22] MEDS: predniSONE 10 MG TABLET 30 MG PO (19:33)
[2021-03-22] MEDS: Amitriptyline HCl 25 MG TABLET 50 MG PO (20:27)
[2021-03-22] MEDS: Topiramate 100 MG TABLET PO (20:27)
[2021-03-22] MEDS: OLANZapine 5 MG TABLET PO (20:29)
[2021-03-22] MEDS: Zolpidem Tartrate 5 MG TABLET PO (20:29)
[2021-03-22] MEDS: Docusate Sodium 100 MG CAPSULE PO ×2 (20:29→20:32)
[2021-03-22] MEDS: Mirtazapine 15 MG TABLET PO (20:29)
[2021-03-22] MEDS: clonazePAM 1 MG TABLET PO (20:30)
[2021-03-22] MEDS: Montelukast Sodium 10 MG TABLET PO (20:30)
[2021-03-22] MEDS: Doxazosin Mesylate 2 MG TABLET PO (20:33)
[2021-03-22] MEDS: traZODone HCL 50 MG TABLET PO (22:26)
[2021-03-22] MEDS: hydrOXYzine HCL 50 MG TABLET PO (22:26)
--- NOTE | 2021-03-22 22:48 | PC.ADMIT ---
Pt is a 50 year old female who came into [facility] after a reported witnessed syncopal episode. Requested to speak with a counselor and reporting SI with a plan. Denies current SI/HI. Patient was recently discharged from . During 1:1 assessment it was hard for her to focus and stay on topic. Pt mood fluctuates quickly, can be demanding and yelling, then crying the next second. Reports that she is experiencing AVH and states that the voices are mean to her they call me fat and other names and sometimes I feel like people are watching me like if I sit down at the dinner table with my family its like they are watching me. Tox screen negative. Does report that she smokes marijuana for her pain I take about 2 puffs. Pain is a 8/10 for abdominal, pt has a history of Chrons, CT of abdomen unremarkable. Medical Hx: Hemorrhagic cyst of ovary, hypertension, hyperlipidemia, iron deficiency anemia, kidney stones, migraine, rheumatoid arthritis. CV signed. Placed on 15 minute checks. Meds verified in the ED.
[2021-03-23] MEDS: cephALEXin 500 MG CAPSULE PO ×4 (02:48→21:08)
[2021-03-23 06:00] VITALS: BP 110/58; PULSE 78; RESP 16; TEMP 36.3; O2SAT 98
[2021-03-23 06:20] VITALS: BP 110/56; PULSE 78; RESP 18; TEMP 36.3; O2SAT 98
[2021-03-23] MEDS: Acetaminophen 325 MG TABLET 650 MG PO (08:01)
[2021-03-23] MEDS: predniSONE 10 MG TABLET 30 MG PO (08:02)
[2021-03-23] MEDS: clonazePAM 1 MG TABLET PO (08:03)
[2021-03-23] MEDS: Topiramate 100 MG TABLET PO ×2 (08:03→20:56)
[2021-03-23] MEDS: Docusate Sodium 100 MG CAPSULE PO ×2 (08:03→20:56)
[2021-03-23] MEDS: Calcium Carbonate 750 MG TAB.CHEW 300 MG PO ×2 (08:04→17:45)
[2021-03-23] MEDS: Escitalopram Oxalate 10 MG TABLET PO (08:04)
[2021-03-23] MEDS: Multivitamin TABLET 1 TAB PO (08:04)
[2021-03-23 08:05] VITALS: BP 110/56; PULSE 78
[2021-03-23] MEDS: amLODIPine Besylate 10 MG TABLET PO (08:05)
[2021-03-23] MEDS: OLANZapine 2.5 MG TABLET PO (08:06)
[2021-03-23] MEDS: oxyCODONE HCl Immed Release 5 MG TABLET PO ×3 (12:29→23:53)
[2021-03-23] MEDS: Milk of Magnesia 30 ML ORAL.SUSP PO (12:31)
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
[2021-03-23 16:15] VITALS: BP 132/80; PULSE 89; TEMP 36.5
[2021-03-23] MEDS: HaloperidoL 5 MG TABLET PO (18:30)
[2021-03-23] MEDS: LORazepam 1 MG TABLET 2 MG PO (18:30)
[2021-03-23] MEDS: diphenhydrAMINE HCL 25 MG TABLET 50 MG PO (18:30)
[2021-03-23 20:55] VITALS: BP 130/64; PULSE 70
[2021-03-23] MEDS: OLANZapine 5 MG TABLET PO (20:55)
[2021-03-23] MEDS: Doxazosin Mesylate 2 MG TABLET PO (20:55)
[2021-03-23] MEDS: Amitriptyline HCl 25 MG TABLET 50 MG PO (20:55)
[2021-03-23] MEDS: Zolpidem Tartrate 5 MG TABLET PO (20:55)
[2021-03-23] MEDS: clonazePAM 0.5 MG TABLET PO (20:56)
[2021-03-23] MEDS: Montelukast Sodium 10 MG TABLET PO (20:56)
[2021-03-23] MEDS: Divalproex Sodium 250 MG TABLET.DR PO (20:56)
--- NOTE | 2021-03-24 | ECG_ITS ---
Test Reason : SYNCOPAL EPISODE Blood Pressure : / mmHG Vent. Rate : 088 BPM Atrial Rate : 088 BPM P-R Int : 124 ms QRS Dur : 082 ms QT Int : 364 ms P-R-T Axes : 018 004 008 degrees QTc Int : 440 ms Normal sinus rhythm Normal ECG No significant changes when compared with the previous EKG of 21 march 2021 Referred By: Johanny Michael Electronically Signed By:ASHLEY BENNETT
[2021-03-24] MEDS: cephALEXin 500 MG CAPSULE PO ×4 (02:33→21:59)
[2021-03-24 06:00] VITALS: BP 105/59; PULSE 82; RESP 18; TEMP 35.9; O2SAT 96
[2021-03-24] MEDS: OLANZapine 2.5 MG TABLET PO (09:31)
[2021-03-24] MEDS: Calcium Carbonate 750 MG TAB.CHEW 300 MG PO ×2 (09:31→18:54)
[2021-03-24] MEDS: predniSONE 10 MG TABLET 30 MG PO (09:31)
[2021-03-24 09:32] VITALS: BP 122/62; PULSE 79
[2021-03-24] MEDS: Divalproex Sodium 250 MG TABLET.DR PO ×2 (09:32→21:58)
[2021-03-24] MEDS: amLODIPine Besylate 10 MG TABLET PO (09:32)
[2021-03-24] MEDS: Docusate Sodium 100 MG CAPSULE PO ×2 (09:32→21:58)
[2021-03-24] MEDS: clonazePAM 0.5 MG TABLET PO ×2 (09:32→21:58)
[2021-03-24] MEDS: Multivitamin TABLET 1 TAB PO (09:32)
[2021-03-24] MEDS: Topiramate 100 MG TABLET PO ×2 (09:32→21:59)
[2021-03-24] MEDS: oxyCODONE HCl Immed Release 5 MG TABLET PO ×3 (10:06→23:53)
[2021-03-24 11:31] LABS: Glucose, Whole Blood 109 mg/dL (60-115)
[2021-03-24 11:37] VITALS: BP 111/56; BP 116/59; PULSE 88
[2021-03-24] MEDS: Butalb/Acetamin/Caff 50/325/40 TABLET 1 TAB PO (11:54)
--- NOTE | 2021-03-24 11:54 | P.EN_ITS ---
Event Note Date of Service: 03/24/21 Event Note: rapid response was called around 11 20. I went up directly and f ound the patient in the floor kitchen laying on her back. Conscious and alert with stimulation. She was able to tell me that she was standing there when everything blacked out and she fell on the floor. She does not recall hitting the floor. no one witnessed the fall. She woke up by herself but she feels little bit confused . On exam she was moving all her extremities, cranial exam within normal. Able to stand and walk few steps. Left shoulders decrease range of motion and pain. The patient complaining mainly of constipation as she has not been passing stool. Blood pressure running on the soft side but orthostatic negative. An EKG was done showing normal sinus rhythm. Troponin negative CT head negative for any acute findings Left shoulder x-ray negative for any fracture From my evaluation the patient seemed to have an episode of vasovagal attack secondary to severe constipation as exam, EKG and images were all negative for any acute findings. To start bowel regimen with addition of lactulose and Metamucil on top of her current medications. Will continue to follow the patient as needed. Please call the hospitalist team for any further questions.
[2021-03-24 12:19] LABS: Troponin-I High Sensitivity < 3.5 ng/L (<3.5-17.0)
[2021-03-24] MEDS: Lactulose 20 GM/30 ML SOLUTION PO (12:22)
--- NOTE | 2021-03-24 14:53 | PC.NURSE ---
At 1120 Rapid Response called. Patient found down on Kitchen floor. Patient responsive to staff. VSS. POC 109. STAT EKG unremarkable. STAT Troponin WNL. Orthostatics WNL. Brain CT and Left shoulder xray both Negative. MD ordered one time dose of Fiorecet. MD ordered Metamucil and Lactulose to patients medication regimen. Pt ambulated back to room with steady gait. No dizziness or lightheadedness. Neuros intact. Nursing to continue to monitor.
--- NOTE | 2021-03-24 15:36 | HO.PSYCHPN ---
Subjective Subjective Date of Service: 03/24/21 Reason For Visit: SI Subjective Notes: Conditional Voluntary Medication Compliance: Yes Side effects from medications: No Attending Groups: Yes Review of Systems Acute medical concerns: Yes Rapid response called when patient was found on floor. See event note. No acute medical issues Review of Systems Review of Systems Pertinent positives and negatives as stated in HPI and 10 point review of systems is otherwise negative. Constitutional: Reports malaise Eyes: Reports no additional eye complaints Cardiovascular: Reports no additional cardiovascular complaints Respiratory: Reports no additional respiratory complaints Gastrointestinal: Reports abdominal pain and Reports other (Chron's Colitis-recent flare with Stelara infusion this week.) Musculoskeletal: Reports no additional musculoskeletal complaints Skin/Breast: Reports system reviewed and no additional complaints, except as docu Reports behavioral changes Psychiatric: Reports abnormal sleep pattern, Reports anxiety, Reports behavioral changes, Reports depression, Reports difficulty concentrating, Reports hopelessness, Reports irritability, Reports anhedonia, Reports mood swings and Reports visual hallucinations (lifelong, she believes due to trauma) Endocrine: Reports no additional endocrine complaints Hematologic/Lymphatic: Reports no additional hematologic/lymphatic complaints Allergic/Immunologic: Reports no additional allergic/immunologic complaints Mental Status Exam Mental Status Exam Patient Appearance: Fatigued and Appropriate Patient Orientation: Person, Place, Time and Situation Level of Consciousness: Awake and Alert Patient Behavior: Dependent, Talkative, Cooperative, Passive, Anxious, Fatigued, Distractible, Good Eye Contact and Crying Mood Description: Withdrawn, Depressed, Anxious, Labile, Angry (with family), Sad and Nervous Affect Description: Angry and Sad Patient Cognition Impaired: No Speech Pattern: Spontaneous Speech Memory Description: Intact Thought Content: negative for Suicidal Ideation or negative for Homicidal Ideation Diagnostics Vital Signs (24Hr): Vital Signs - 24 hr 03/23/21 16:15 03/23/21 20:55 03/24/21 06:00 Temperature 97.7 F 96.6 F L Pulse Rate 89 70 82 Respiratory Rate 18 Blood Pressure 132/80 130/64 105/59 L Pulse Oximetry 96 03/24/21 09:32 03/24/21 11:37 Temperature Pulse Rate 79 88 Respiratory Rate Blood Pressure 122/62 116/59 L Pulse Oximetry Body Mass Index 36.6 Labs Results: 03/21/21 22:42 03/21/21 22:42 Labs: Laboratory Results - last 48 hr 03/22/21 03/22/21 03/24/21 15:40 16:05 11:27 POC Glucose 109 Troponin I High Sens COVID-19 (SHAAN) Cancelled Negative COVID-19 Clin Com Cancelled See Note 03/24/21 11:47 POC Glucose Troponin I High Sens < 3.5 COVID-19 (SHAAN) COVID-19 Clin Com Imaging Radiology Impressions: ITS Impressions Cervical Spine CT 03/21/21 23:15 IMPRESSION: No acute intracranial pathology. No cervical spine fracture or malalignment. Head CT 03/21/21 23:15 IMPRESSION: No acute intracranial pathology. No cervical spine fracture or malalignment. Abdomen/Pelvis CT 03/22/21 03:07 IMPRESSION: * Previously seen transverse and left colitis has resolved. 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 * No significant active gastrointestinal inflammation evident on the current exam. Shoulder X-Ray 03/24/21 12:10 IMPRESSION: 1. No evidence of acute left shoulder fracture or dislocation. 2. Included lungs incompletely assessed as discussed above. Consider follow-up chest x-ray for further evaluation. Head CT 03/24/21 12:14 IMPRESSION: No acute intracranial pathology. Mild right sphenoid sinus disease. Medications Medications Current Medications Generic Name Dose Route Start Last Admin Trade Name Freq PRN Reason Stop Dose Admin Acetaminophen 650 mg 03/22/21 20:00 03/23/21 08:01 Acetaminophen 325 Mg Tablet PO 650 mg Q6H PRN Administration Headache/Pain Mild Scale (1-3) Al Hydroxide/Mg Hydroxide 30 ml 03/22/21 20:00 Magnesium Hydrox/Alum Hydrox 30 Ml Oral.Susp PO Q6H PRN Heartburn/Nausea Amitriptyline HCl 50 mg 03/22/21 21:00 03/23/21 20:55 Amitriptyline Hcl 25 Mg Tablet PO 50 mg BEDTIME JUANCHO Administration Amlodipine Besylate 5 mg 03/25/21 09:00 Amlodipine Besylate 5 Mg Tablet PO DAILY [facility] Protocol Calcium Carbonate 300 mg 03/23/21 08:30 03/24/21 09:31 Calcium Carbonate 750 Mg Tab.Chew PO 300 mg BIDPC JUANCHO Administration Cephalexin HCl 500 mg 03/22/21 20:45 03/24/21 13:57 Cephalexin 500 Mg Capsule PO 03/29/21 20:44 500 mg Q6H JUANCHO Administration Clonazepam 0.5 mg 03/23/21 21:00 03/24/21 09:32 Clonazepam 0.5 Mg Tablet PO 0.5 mg BID J[facility]AN[facility] Administration Diphenhydramine HCl 50 mg 03/23/21 09:58 03/23/21 18:30 Diphenhydramine Hcl 25 Mg Tablet PO 50 mg Q4H PRN Administration agitation Divalproex Sodium 250 mg 03/23/21 21:00 03/24/21 09:32 Divalproex Sodium 250 Mg Tablet.Dr PO 250 mg BID JUANCHO Administration Docusate Sodium 100 mg 03/22/21 21:00 03/24/21 09:32 Docusate Sodium 100 Mg Capsule PO 100 mg BID JUANCHO Administration Doxazosin Mesylate 2 mg 03/22/21 21:00 03/23/21 20:55 Doxazosin Mesylate 2 Mg Tablet PO 2 mg BEDTIME JUANCHO Administration Protocol Ergocalciferol 1,250 mcg 03/28/21 18:00 Ergocalciferol (Vitamin D2) 1,[address] [facility] Haloperidol 5 mg 03/23/21 09:58 03/23/21 18:30 Haloperidol 5 Mg Tablet PO 5 mg Q4H PRN Administration agitation Hydroxyzine HCl 50 mg 03/22/21 20:13 03/22/21 22:26 Hydroxyzine Hcl 50 Mg Tablet PO 50 mg TID PRN Administration Anxiety Lactulose 20 gm 03/24/21 11:50 03/24/21 12:22 Lactulose 20 Gm/30 Ml Solution PO 20 gm BID JUANCHO Administration Lidocaine 1 patch 03/22/21 19:07 Lidocaine 4 % Patch Adh..Patch TRANSDERMA DAILY PRN Pain Lorazepam 2 mg 03/23/21 09:58 03/23/21 18:30 Lorazepam 1 Mg Tablet PO 2 mg Q4H PRN Administration agitation Magnesium Hydroxide 30 ml 03/22/21 20:00 03/23/21 12:31 Milk Of Magnesia 30 Ml Oral.Susp PO 30 ml DAILY PRN Administration Constipation Methotrexate 25 mg 03/27/21 18:00 Methotrexate Sodium 2.[address] [facility] Montelukast Sodium 10 mg 03/22/21 21:00 03/23/21 20:56 Montelukast Sodium 10 Mg Tablet PO 10 mg BEDTIME [facility] Administration Multivitamins 1 tab 03/23/21 09:00 03/24/21 09:31 B-Complex With Vitamin C Tablet PO 1 tab DAILY [facility] Administration Multivitamins/Vitamin C 1 tab 03/22/21 19:00 03/24/21 09:32 Multivitamin Tablet PO 1 tab DAILY [facility] Administration Non-Formulary Medication 3 cap 03/22/21 19:00 Budesonide PO QAM [facility] Non-Formulary Medication 1 syr 03/22/21 19:00 Ustekinumab SUBCUT Q28D [facility] Olanzapine 2.5 mg 03/22/21 19:15 03/24/21 09:31 Olanzapine 2.5 Mg Tablet PO 2.5 mg DAILY [facility] Administration Olanzapine 5 mg 03/22/21 21:00 03/23/21 20:55 Olanzapine 5 Mg Tablet PO 5 mg BEDTIME J[facility] Administration Oxycodone HCl 5 mg 03/22/21 18:58 03/24/21 10:06 Oxycodone Hcl Immed Release 5 Mg Tablet PO 5 mg Q4H PRN Administration pain Paroxetine HCl 30 mg 03/22/21 19:00 03/22/21 19:25 Paroxetine Hcl 30 Mg Tablet PO 30 mg DAILY [facility] Administration Pharmacy Consult 1 each 03/22/21 17:37 Consult Rx Perform Med Rec MISCELLANE ONCE PRN Consult order Polyethylene Glycol 17 gm 03/23/21 18:12 03/24/21 00:08 Polyethylene Glycol 3350 17 Gm Powd.Pack PO 17 gm DAILY PRN Administration Constipation Prednisone 20 mg 03/25/21 09:00 Prednisone 20 Mg Tablet PO 03/31/21 09:01 DAILY [facility] Prednisone 10 mg 04/01/21 09:00 Prednisone 10 Mg Tablet PO 04/07/21 09:01 DAILY [facility] Psyllium Hydrophilic Mucilloid 3.4 gm 03/25/21 09:00 Psyllium Seed 3.4 Gm Powd.Pack PO DAILY [facility] Topiramate 100 mg 03/22/21 21:00 03/24/21 09:32 Topiramate 100 Mg Tablet PO 100 mg BID JUANCHO Administration Trazodone HCl 50 mg 03/22/21 20:00 03/22/21 22:26 Trazodone Hcl 50 Mg Tablet PO 50 mg BEDTIME PRN Administration Insomnia Zolpidem Tartrate 5 mg 03/22/21 21:00 03/23/21 20:55 Zolpidem Tartrate 5 Mg Tablet PO 5 mg BEDTIME JUANCHO Administration Allergies Allergies Allergy/AdvReac Type Severity Reaction Status Date / Time aspirin [ASA] Allergy Intermediate RASH Verified 11/17/20 15:07 azathioprine [From IMURAN] Allergy Intermediate PANCREATIC Verified 11/17/20 15:07 INFLAMMATION ibuprofen [IBUPROFEN] Allergy Intermediate TOLD NOT Verified 11/17/20 15:07 TO TAKE levofloxacin [From LEVAQUIN] Allergy Mild YEAST Verified 11/17/20 15:07 INFECTIONS Assessment & Plan Assessment & Plan (1) Recurrent major depression-severe: Status: Acute Code(s): F33.2 - Major depressive disorder, recurrent severe without psychotic features Assessment and Plan: 50 yo female, h/o depression, PTSD, several medical problems recently exacerbated, especially Chron's Disease. Pt left M5 precipitously for Stelara infusion appt and was not able to manage sx at home with reported racing thoughts, panic, inability to handle family expectations at home, SI with resulting syncope and new onset UTI. She also is on a Prednisone taper from previous admission, just going down to 20 mg daily beginning 03/25. She is newly positive for THC this admission and we will continue medication changes as follows..... -Decrease Klonopin to 0.5 mg bid -Discontinue Remeron -Discontinue Lexapro -Will continue Paxil tapering -Depakote 250 mg bid -Amitriptyline level No change to the above plan (2) PTSD (post-traumatic stress disorder): Status: Acute Code(s): F43.10 - Post-traumatic stress disorder, unspecified Assessment and Plan: Will encourage coping skills groups while inpatient and will continue referral to PHP and possibly DBT post discharge Greater than 50% of the session was spent on counseling and/or coordination of care Patient educated on: diagnosis and medication risk/benefits Informed Consent: does not understand Reason for contiued inpatient stay Substantial Risk for: inability to function and rapid decompensation
[2021-03-24] MEDS: LORazepam 1 MG TABLET 2 MG PO (16:13)
[2021-03-24] MEDS: diphenhydrAMINE HCL 25 MG TABLET 50 MG PO (16:14)
[2021-03-24 18:00] VITALS: BP 116/62; PULSE 80; RESP 16; TEMP 36.6; O2SAT 97
[2021-03-24] MEDS: hydrOXYzine HCL 50 MG TABLET PO (19:03)
[2021-03-24] MEDS: OLANZapine 5 MG TABLET PO (21:58)
[2021-03-24] MEDS: Zolpidem Tartrate 5 MG TABLET PO (21:58)
[2021-03-24] MEDS: Montelukast Sodium 10 MG TABLET PO (21:58)
[2021-03-24 21:59] VITALS: BP 134/78; PULSE 80
[2021-03-24] MEDS: Amitriptyline HCl 25 MG TABLET 50 MG PO (21:59)
[2021-03-24] MEDS: Doxazosin Mesylate 2 MG TABLET PO (21:59)
[2021-03-24] MEDS: Magnesium Hydrox/Alum Hydrox 30 ML ORAL.SUSP PO (23:55)
[2021-03-25] MEDS: hydrOXYzine HCL 50 MG TABLET PO ×2 (01:25→17:02)
[2021-03-25] MEDS: traZODone HCL 50 MG TABLET PO ×2 (01:25→21:37)
[2021-03-25 06:00] VITALS: RESP 16; TEMP 36.3; O2SAT 97
[2021-03-25] MEDS: Calcium Carbonate 750 MG TAB.CHEW PO ×2 (09:57→17:02)
[2021-03-25] MEDS: cephALEXin 500 MG CAPSULE PO ×4 (09:57→23:17)
[2021-03-25] MEDS: OLANZapine 2.5 MG TABLET PO (09:57)
[2021-03-25] MEDS: Multivitamin TABLET 1 TAB PO (09:57)
[2021-03-25] MEDS: predniSONE 20 MG TABLET PO (09:57)
[2021-03-25 09:58] VITALS: BP 115/86; PULSE 89
[2021-03-25] MEDS: Divalproex Sodium 250 MG TABLET.DR PO ×2 (09:58→21:35)
[2021-03-25] MEDS: amLODIPine Besylate 5 MG TABLET PO (09:58)
[2021-03-25] MEDS: Lactulose 20 GM/30 ML SOLUTION PO ×2 (09:58→21:34)
[2021-03-25] MEDS: Topiramate 100 MG TABLET PO ×2 (09:58→21:35)
[2021-03-25] MEDS: Docusate Sodium 100 MG CAPSULE PO ×2 (09:58→21:36)
[2021-03-25] MEDS: clonazePAM 0.5 MG TABLET PO ×2 (09:58→21:35)
[2021-03-25] MEDS: oxyCODONE HCl Immed Release 5 MG TABLET PO ×3 (11:18→21:35)
--- NOTE | 2021-03-25 17:04 | HO.PSYCHPN ---
Subjective Subjective Date of Service: 03/25/21 Reason For Visit: SI Interim History: Leesa was much more settled today. She busied herself making necklaces and bracelets Medication Compliance: Yes Side effects from medications: No Attending Groups: No Review of Systems Acute medical concerns: No Medical Review of Systems: unchanged Review of Systems Review of Systems Pertinent positives and negatives as stated in HPI and 10 point review of systems is otherwise negative. Constitutional: Reports malaise Eyes: Reports no additional eye complaints Cardiovascular: Reports no additional cardiovascular complaints Respiratory: Reports no additional respiratory complaints Gastrointestinal: Reports abdominal pain and Reports other (Chron's Colitis-recent flare with Stelara infusion this week.) Musculoskeletal: Reports no additional musculoskeletal complaints Skin/Breast: Reports system reviewed and no additional complaints, except as docu Reports behavioral changes Psychiatric: Reports abnormal sleep pattern, Reports anxiety, Reports behavioral changes, Reports depression, Reports difficulty concentrating, Reports hopelessness, Reports irritability, Reports anhedonia, Reports mood swings and Reports visual hallucinations (lifelong, she believes due to trauma) Endocrine: Reports no additional endocrine complaints Hematologic/Lymphatic: Reports no additional hematologic/lymphatic complaints Allergic/Immunologic: Reports no additional allergic/immunologic complaints Mental Status Exam Mental Status Exam Patient Appearance: Fatigued and Appropriate Patient Orientation: Person, Place, Time and Situation Level of Consciousness: Awake and Alert Patient Behavior: Dependent, Talkative, Cooperative, Passive, Anxious, Fatigued, Distractible, Good Eye Contact and Crying Mood Description: Withdrawn, Depressed, Anxious, Labile, Angry (with family), Sad and Nervous Affect Description: Angry and Sad Patient Cognition Impaired: No Speech Pattern: Spontaneous Speech Memory Description: Intact Diagnostics Vital Signs (24Hr): Vital Signs - 24 hr 03/24/21 18:00 03/24/21 21:59 03/25/21 06:00 Temperature 98 F 97.4 F Pulse Rate 80 80 Respiratory Rate 16 16 Blood Pressure 116/62 134/78 Pulse Oximetry 97 97 03/25/21 09:58 Temperature Pulse Rate 89 Respiratory Rate Blood Pressure 115/86 Pulse Oximetry Body Mass Index 36.6 Labs Results: 03/21/21 22:42 03/21/21 22:42 Labs: Laboratory Results - last 48 hr 03/24/21 03/24/21 11:27 11:47 POC Glucose 109 Troponin I High Sens < 3.5 Imaging Radiology Impressions: ITS Impressions Cervical Spine CT 03/21/21 23:15 IMPRESSION: No acute intracranial pathology. No cervical spine fracture or malalignment. Head CT 03/21/21 23:15 IMPRESSION: No acute intracranial pathology. No cervical spine fracture or malalignment. Abdomen/Pelvis CT 03/22/21 03:07 IMPRESSION: * Previously seen transverse and left colitis has resolved. 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 * No significant active gastrointestinal inflammation evident on the current exam. Shoulder X-Ray 03/24/21 12:10 IMPRESSION: 1. No evidence of acute left shoulder fracture or dislocation. 2. Included lungs incompletely assessed as discussed above. Consider follow-up chest x-ray for further evaluation. Head CT 03/24/21 12:14 IMPRESSION: No acute intracranial pathology. Mild right sphenoid sinus disease. Medications Medications Current Medications Generic Name Dose Route Start Last Admin Trade Name Freq PRN Reason Stop Dose Admin Acetaminophen 650 mg 03/22/21 20:00 03/23/21 08:01 Acetaminophen 325 Mg Tablet PO 650 mg Q6H PRN Administration Headache/Pain Mild Scale (1-3) Al Hydroxide/Mg Hydroxide 30 ml 03/22/21 20:00 03/24/21 23:55 Magnesium Hydrox/Alum Hydrox 30 Ml Oral.Susp PO 30 ml Q6H PRN Administration Heartburn/Nausea Amitriptyline HCl 50 mg 03/22/21 21:00 03/24/21 21:59 Amitriptyline Hcl 25 Mg Tablet PO 50 mg BEDTIME JUANCHO Administration Amlodipine Besylate 5 mg 03/25/21 09:00 03/25/21 09:58 Amlodipine Besylate 5 Mg Tablet PO 5 mg DAILY [facility] Administration Protocol Calcium Carbonate 750 mg 03/25/21 09:30 03/25/21 17:02 Calcium Carbonate 750 Mg Tab.Chew PO 750 mg BIDPC JUANCHO Administration Cephalexin HCl 500 mg 03/25/21 12:00 03/25/21 17:02 Cephalexin 500 Mg Capsule PO 500 mg 0000,0600,1200,1800 J[facility]ANCHO Administration Clonazepam 0.5 mg 03/23/21 21:00 03/25/21 09:58 Clonazepam 0.5 Mg Tablet PO 0.5 mg BID J[facility]ANCHO Administration Diphenhydramine HCl 50 mg 03/23/21 09:58 03/24/21 16:14 Diphenhydramine Hcl 25 Mg Tablet PO 50 mg Q4H PRN Administration agitation Divalproex Sodium 250 mg 03/23/21 21:00 03/25/21 09:58 Divalproex Sodium 250 Mg Tablet.Dr PO 250 mg BID JUANCHO Administration Docusate Sodium 100 mg 03/22/21 21:00 03/25/21 09:58 Docusate Sodium 100 Mg Capsule PO 100 mg BID JUANCHO Administration Doxazosin Mesylate 2 mg 03/22/21 21:00 03/24/21 21:59 Doxazosin Mesylate 2 Mg Tablet PO 2 mg BEDTIME JUANCHO Administration Protocol Ergocalciferol 1,250 mcg 03/28/21 18:00 Ergocalciferol (Vitamin D2) 1,250 Mcg Capsule PO [facility] Haloperidol 5 mg 03/23/21 09:58 03/23/21 18:30 Haloperidol 5 Mg Tablet PO 5 mg Q4H PRN Administration agitation Hydroxyzine HCl 50 mg 03/22/21 20:13 03/25/21 17:02 Hydroxyzine Hcl 50 Mg Tablet PO 50 mg TID PRN Administration Anxiety Lactulose 20 gm 03/24/21 11:50 03/25/21 09:58 Lactulose 20 Gm/30 Ml Solution PO 20 gm BID JUANCHO Administration Lidocaine 1 patch 03/22/21 19:07 Lidocaine 4 % Patch Adh..Patch TRANSDERMA DAILY PRN Pain Lorazepam 2 mg 03/23/21 09:58 03/24/21 16:13 Lorazepam 1 Mg Tablet PO 2 mg Q4H PRN Administration agitation Magnesium Hydroxide 30 ml 03/22/21 20:00 03/23/21 12:31 Milk Of Magnesia 30 Ml Oral.Susp PO 30 ml DAILY PRN Administration Constipation Methotrexate 25 mg 03/27/21 18:00 Methotrexate Sodium 2.5 Mg Tablet PO [facility] Montelukast Sodium 10 mg 03/22/21 21:00 03/24/21 21:58 Montelukast Sodium 10 Mg Tablet PO 10 mg BEDTIME JUANCHO Administration Multivitamins 1 tab 03/23/21 09:00 03/25/21 09:57 B-Complex With Vitamin C Tablet PO 1 tab DAILY [facility] Administration Multivitamins/Vitamin C 1 tab 03/22/21 19:00 03/25/21 09:57 Multivitamin Tablet PO 1 tab DAILY [facility] Administration Non-Formulary Medication 3 cap 03/22/21 19:00 Budesonide PO QAM [facility] Non-Formulary Medication 1 syr 03/22/21 19:00 Ustekinumab SUBCUT Q28D [facility] Olanzapine 2.5 mg 03/22/21 19:15 03/25/21 09:57 Olanzapine 2.5 Mg Tablet PO 2.5 mg DAILY [facility] Administration Olanzapine 5 mg 03/22/21 21:00 03/24/21 21:58 Olanzapine 5 Mg Tablet PO 5 mg BEDTIME JUANCHO Administration Oxycodone HCl 5 mg 03/22/21 18:58 03/25/21 17:02 Oxycodone Hcl Immed Release 5 Mg Tablet PO 5 mg Q4H PRN Administration pain Paroxetine HCl 30 mg 03/22/21 19:00 03/22/21 19:25 Paroxetine Hcl 30 Mg Tablet PO 30 mg DAILY [facility] Administration Pharmacy Consult 1 each 03/22/21 17:37 Consult Rx Perform Med Rec MISCELLANE ONCE PRN Consult order Polyethylene Glycol 17 gm 03/23/21 18:12 03/24/21 00:08 Polyethylene Glycol 3350 17 Gm Powd.Pack PO 17 gm DAILY PRN Administration Constipation Prednisone 20 mg 03/25/21 09:00 03/25/21 09:57 Prednisone 20 Mg Tablet PO 03/31/21 09:01 20 mg DAILY [facility] Administration Prednisone 10 mg 04/01/21 09:00 Prednisone 10 Mg Tablet PO 04/07/21 09:01 DAILY [facility] Psyllium Hydrophilic Mucilloid 3.4 gm 03/25/21 09:00 03/25/21 09:58 Psyllium Seed 3.4 Gm Powd.Pack PO 3.4 gm DAILY [facility] Administration Topiramate 100 mg 03/22/21 21:00 03/25/21 09:58 Topiramate 100 Mg Tablet PO 100 mg BID JUANCHO Administration Trazodone HCl 50 mg 03/22/21 20:00 03/25/21 01:25 Trazodone Hcl 50 Mg Tablet PO 50 mg BEDTIME PRN Administration Insomnia Zolpidem Tartrate 5 mg 03/22/21 21:00 03/24/21 21:58 Zolpidem Tartrate 5 Mg Tablet PO 5 mg BEDTIME JUANCHO Administration Allergies Allergies Allergy/AdvReac Type Severity Reaction Status Date / Time aspirin [ASA] Allergy Intermediate RASH Verified 11/17/20 15:07 azathioprine [From IMURAN] Allergy Intermediate PANCREATIC Verified 11/17/20 15:07 INFLAMMATION ibuprofen [IBUPROFEN] Allergy Intermediate TOLD NOT Verified 11/17/20 15:07 TO TAKE levofloxacin [From LEVAQUIN] Allergy Mild YEAST Verified 11/17/20 15:07 INFECTIONS Assessment & Plan Assessment & Plan (1) Recurrent major depression-severe: Status: Acute Code(s): F33.2 - Major depressive disorder, recurrent severe without psychotic features Assessment and Plan: 50 yo female, h/o depression, PTSD, several medical problems recently exacerbated, especially Chron's Disease. Pt left M5 precipitously for Stelara infusion appt and was not able to manage sx at home with reported racing thoughts, panic, inability to handle family expectations at home, SI with resulting syncope and new onset UTI. She also is on a Prednisone taper from previous admission, just going down to 20 mg daily beginning 03/25. She is newly positive for THC this admission and we will continue medication changes as follows..... -Decrease Klonopin to 0.5 mg bid -Discontinue Remeron -Discontinue Lexapro -Will continue Paxil tapering -Depakote 250 mg bid -Amitriptyline level No change to the above plan (2) PTSD (post-traumatic stress disorder): Status: Acute Code(s): F43.10 - Post-traumatic stress disorder, unspecified Assessment and Plan: Will encourage coping skills groups while inpatient and will continue referral to PHP and possibly DBT post discharge Assessment and Plan: No changes to the above Greater than 50% of the session was spent on counseling and/or coordination of care Patient educated on: diagnosis and medication risk/benefits Informed Consent: further education needed Reason for contiued inpatient stay Substantial Risk for: rapid decompensation
[2021-03-25 18:00] VITALS: BP 126/60; PULSE 101
[2021-03-25] MEDS: OLANZapine 5 MG TABLET PO (21:34)
[2021-03-25] MEDS: Zolpidem Tartrate 5 MG TABLET PO (21:35)
[2021-03-25] MEDS: Amitriptyline HCl 25 MG TABLET 50 MG PO (21:35)
[2021-03-25] MEDS: Montelukast Sodium 10 MG TABLET PO (21:36)
[2021-03-25 21:37] VITALS: BP 132/72; PULSE 90
[2021-03-25] MEDS: Doxazosin Mesylate 2 MG TABLET PO (21:37)
[2021-03-26] MEDS: Acetaminophen 325 MG TABLET 650 MG PO (02:13)
[2021-03-26] MEDS: oxyCODONE HCl Immed Release 5 MG TABLET PO ×4 (02:36→22:10)
[2021-03-26 05:20] VITALS: BP 152/83; PULSE 91; RESP 18; TEMP 36.5; O2SAT 98
[2021-03-26] MEDS: cephALEXin 500 MG CAPSULE PO ×3 (08:41→17:41)
[2021-03-26] MEDS: OLANZapine 2.5 MG TABLET PO (08:41)
[2021-03-26 08:42] VITALS: BP 127/69; PULSE 83
[2021-03-26] MEDS: predniSONE 20 MG TABLET PO (08:42)
[2021-03-26] MEDS: Calcium Carbonate 750 MG TAB.CHEW PO ×2 (08:42→17:41)
[2021-03-26] MEDS: Divalproex Sodium 250 MG TABLET.DR PO ×2 (08:42→22:14)
[2021-03-26] MEDS: clonazePAM 0.5 MG TABLET PO ×2 (08:42→22:13)
[2021-03-26] MEDS: Topiramate 100 MG TABLET PO ×2 (08:42→22:13)
[2021-03-26] MEDS: Docusate Sodium 100 MG CAPSULE PO ×2 (08:42→22:14)
[2021-03-26] MEDS: amLODIPine Besylate 5 MG TABLET PO (08:42)
[2021-03-26] MEDS: Multivitamin TABLET 1 TAB PO (08:44)
[2021-03-26] MEDS: Lactulose 20 GM/30 ML SOLUTION PO ×2 (08:45→22:15)
[2021-03-26] MEDS: hydrOXYzine HCL 50 MG TABLET PO ×2 (09:36→22:12)
[2021-03-26] MEDS: Magnesium Hydrox/Alum Hydrox 30 ML ORAL.SUSP PO (12:18)
--- NOTE | 2021-03-26 14:44 | PC.NURSE ---
This financial writer attempted to administer [facility] screen to pt on this date. Pt became very anxious and tearful, unable to finish screen, invalidating score. Pt stated she would attempt screen at a later time. This financial writer will administer a different version or screen tomorrow if pt is willing to participate. [employer] and nurse aware.
[2021-03-26] MEDS: Milk of Magnesia 30 ML ORAL.SUSP PO (16:49)
--- NOTE | 2021-03-26 20:41 | HO.PSYCHPN ---
Subjective Subjective Date of Service: 03/26/21 Reason For Visit: SI Subjective Notes: Conditional Voluntary Healthcare Proxy: No Guardianship: No Medical Problems Affecting Mental Status: Yes (Chron's Colitis) Interim History: Leesa expressed sadness, anger, shame today when meeting with Saba DUMONT and tw. She cried when discussing her Chron's Colitis and lack of control with resulting shame when she has flatulence and how the odor is embarrassing, it is the reason I quit my job. Reports bad days yesterday and today. Expressed anger with staff as she does not feel she is being treated the same as male patients-describes her perception that female staff take male patients more seriously and are more attentive to their needs. Episode of agitation/outburst this a.m. while doing laundry. As she was loading a machine she reports hearing a noise-staff who accompanied her explained the origin of the noise (the hospital is working on some construction projects). Pt became angry when the steamer operator did not go in to the room to investigate this and states she felt not treated as human. Also reports sleep issues, sore throat. Medication Compliance: Yes Review of Systems Reports sore throat Reports behavioral changes Psychiatric: Reports abnormal sleep pattern, Reports anxiety, Reports behavioral changes, Reports change in appetite, Reports depression, Reports difficulty concentrating, Reports irritability, Reports mood swings and Reports suicidal ideation Mental Status Exam Mental Status Exam Patient Appearance: Fatigued Patient Orientation: Person, Place and Situation Level of Consciousness: Restless and Alert Patient Behavior: Talkative, Suspicious, Restless, Anxious, Avoidant, Distractible and Impulsive Mood Description: Anxious, Labile and Angry Affect Description: Anxious, Labile, Angry and Sad Patient Cognition Impaired: No Ability to Follow Directions: Fair Speech Pattern: Perseverating and Spontaneous Speech Memory Description: Remote Impaired and Episodic Impaired Hallucinations: None Delusions: Paranoid Ideation Perceptual Disturbances: Depersonalization and Derealization Thought Process: Illogical, Distracted and Rumination Thought Content: positive for Circumstantial and positive for Tangential Depressive Symptoms: Increased Irritability, Difficulty Sleeping, Isolating-Friends/Family and Unhappiness Judgement: Fair Diagnostics Vital Signs (24Hr): Vital Signs - 24 hr 03/25/21 21:37 03/26/21 05:20 03/26/21 08:42 Temperature 97.7 F Pulse Rate 90 91 83 Respiratory Rate 18 Blood Pressure 132/72 152/83 H 127/69 Pulse Oximetry 98 Body Mass Index 36.6 Labs Results: 03/21/21 22:42 03/21/21 22:42 Imaging Radiology Impressions: ITS Impressions Cervical Spine CT 03/21/21 23:15 IMPRESSION: No acute intracranial pathology. No cervical spine fracture or malalignment. Head CT 03/21/21 23:15 IMPRESSION: No acute intracranial pathology. No cervical spine fracture or malalignment. Abdomen/Pelvis CT 03/22/21 03:07 IMPRESSION: * Previously seen transverse and left colitis has resolved. 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 * No significant active gastrointestinal inflammation evident on the current exam. Shoulder X-Ray 03/24/21 12:10 IMPRESSION: 1. No evidence of acute left shoulder fracture or dislocation. 2. Included lungs incompletely assessed as discussed above. Consider follow-up chest x-ray for further evaluation. Head CT 03/24/21 12:14 IMPRESSION: No acute intracranial pathology. Mild right sphenoid sinus disease. Medications Medications Current Medications Generic Name Dose Route Start Last Admin Trade Name Freq PRN Reason Stop Dose Admin Acetaminophen 650 mg 03/22/21 20:00 03/26/21 02:13 Acetaminophen 325 Mg Tablet PO 650 mg Q6H PRN Administration Headache/Pain Mild Scale (1-3) Al Hydroxide/Mg Hydroxide 30 ml 03/22/21 20:00 03/26/21 12:18 Magnesium Hydrox/Alum Hydrox 30 Ml Oral.Susp PO 30 ml Q6H PRN Administration Heartburn/Nausea Amitriptyline HCl 50 mg 03/22/21 21:00 03/25/21 21:35 Amitriptyline Hcl 25 Mg Tablet PO 50 mg BEDTIME JUANCHO Administration Amlodipine Besylate 5 mg 03/25/21 09:00 03/26/21 08:42 Amlodipine Besylate 5 Mg Tablet PO 5 mg DAILY JUANCHO Administration Protocol Benzocaine 1 lozenge 03/26/21 12:19 Throat Lozenge, Medicated Lozenge MUCOUS MEM Q2H PRN Sore Throat Calcium Carbonate 750 mg 03/25/21 09:30 03/26/21 17:41 Calcium Carbonate 750 Mg Tab.Chew PO 750 mg BIDPC JUANCHO Administration Cephalexin HCl 500 mg 03/25/21 12:00 03/26/21 17:41 Cephalexin 500 Mg Capsule PO 500 mg 0000,0600,1200,1800 JUANCHO Administration Clonazepam 0.5 mg 03/23/21 21:00 03/26/21 08:42 Clonazepam 0.5 Mg Tablet PO 0.5 mg BID JUANCHO Administration Diphenhydramine HCl 50 mg 03/23/21 09:58 03/24/21 16:14 Diphenhydramine Hcl 25 Mg Tablet PO 50 mg Q4H PRN Administration agitation Divalproex Sodium 250 mg 03/23/21 21:00 03/26/21 08:42 Divalproex Sodium 250 Mg Tablet.Dr PO 250 mg BID JUANCHO Administration Docusate Sodium 100 mg 03/22/21 21:00 03/26/21 08:42 Docusate Sodium 100 Mg Capsule PO 100 mg BID JUANCHO Administration Doxazosin Mesylate 2 mg 03/22/21 21:00 03/25/21 21:37 Doxazosin Mesylate 2 Mg Tablet PO 2 mg BEDTIME JUANCHO Administration Protocol Ergocalciferol 1,250 mcg 03/28/21 18:00 Ergocalciferol (Vitamin D2) 1,250 Mcg Capsule PO [facility] Haloperidol 5 mg 03/23/21 09:58 03/23/21 18:30 Haloperidol 5 Mg Tablet PO 5 mg Q4H PRN Administration agitation Hydroxyzine HCl 50 mg 03/22/21 20:13 03/26/21 09:36 Hydroxyzine Hcl 50 Mg Tablet PO 50 mg TID PRN Administration Anxiety Lactulose 20 gm 03/24/21 11:50 03/26/21 08:45 Lactulose 20 Gm/30 Ml Solution PO 20 gm BID [facility] Administration Lidocaine 1 patch 03/22/21 19:07 Lidocaine 4 % Patch Adh..Patch TRANSDERMA DAILY PRN Pain Lorazepam 2 mg 03/23/21 09:58 03/24/21 16:13 Lorazepam 1 Mg Tablet PO 2 mg Q4H PRN Administration agitation Magnesium Hydroxide 30 ml 03/22/21 20:00 03/26/21 16:49 Milk Of Magnesia 30 Ml Oral.Susp PO 30 ml DAILY PRN Administration Constipation Methotrexate 25 mg 03/27/21 18:00 Methotrexate Sodium 2.5 Mg Tablet PO [facility] Montelukast Sodium 10 mg 03/22/21 21:00 03/25/21 21:36 Montelukast Sodium 10 Mg Tablet PO 10 mg BEDTIME JUANCHO Administration Multi-Ingred Medicated Throat [place] 1 spray 03/26/21 12:20 Throat [place], Medicated 20 Ml Bottle MUCOUS MEM Q2H PRN Sore Throat Multivitamins 1 tab 03/23/21 09:00 03/26/21 08:41 B-Complex With Vitamin C Tablet PO 1 tab DAILY JUANCHO Administration Multivitamins/Vitamin C 1 tab 03/22/21 19:00 03/26/21 08:44 Multivitamin Tablet PO 1 tab DAILY JUANCHO Administration Non-Formulary Medication 3 cap 03/22/21 19:00 Budesonide PO QAM JUANCHO Olanzapine 2.5 mg 03/22/21 19:15 03/26/21 08:41 Olanzapine 2.5 Mg Tablet PO 2.5 mg DAILY JUANCHO Administration Olanzapine 5 mg 03/22/21 21:00 03/25/21 21:34 Olanzapine 5 Mg Tablet PO 5 mg BEDTIME JUANCHO Administration Oxycodone HCl 5 mg 03/22/21 18:58 03/26/21 16:53 Oxycodone Hcl Immed Release 5 Mg Tablet PO 5 mg Q4H PRN Administration pain Paroxetine HCl 30 mg 03/22/21 19:00 03/22/21 19:25 Paroxetine Hcl 30 Mg Tablet PO 30 mg DAILY JUANCHO Administration Pharmacy Consult 1 each 03/22/21 17:37 Consult Rx Perform Med Rec MISCELLANE ONCE PRN Consult order Polyethylene Glycol 17 gm 03/23/21 18:12 03/24/21 00:08 Polyethylene Glycol 3350 17 Gm Powd.Pack PO 17 gm DAILY PRN Administration Constipation Prednisone 20 mg 03/25/21 09:00 03/26/21 08:42 Prednisone 20 Mg Tablet PO 03/31/21 09:01 20 mg DAILY JUANCHO Administration Prednisone 10 mg 04/01/21 09:00 Prednisone 10 Mg Tablet PO 04/07/21 09:01 DAILY JUANCHO Psyllium Hydrophilic Mucilloid 3.4 gm 03/25/21 09:00 03/26/21 08:44 Psyllium Seed 3.4 Gm Powd.Pack PO 3.4 gm DAILY JUANCHO Administration Topiramate 100 mg 03/22/21 21:00 03/26/21 08:42 Topiramate 100 Mg Tablet PO 100 mg BID JUANCHO Administration Trazodone HCl 50 mg 03/22/21 20:00 03/25/21 21:37 Trazodone Hcl 50 Mg Tablet PO 50 mg BEDTIME PRN Administration Insomnia Zolpidem Tartrate 5 mg 03/22/21 21:00 03/25/21 21:35 Zolpidem Tartrate 5 Mg Tablet PO 5 mg BEDTIME JUANCHO Administration Allergies Allergies Allergy/AdvReac Type Severity Reaction Status Date / Time aspirin [ASA] Allergy Intermediate RASH Verified 11/17/20 15:07 azathioprine [From IMURAN] Allergy Intermediate PANCREATIC Verified 11/17/20 15:07 INFLAMMATION ibuprofen [IBUPROFEN] Allergy Intermediate TOLD NOT Verified 11/17/20 15:07 TO TAKE levofloxacin [From LEVAQUIN] Allergy Mild YEAST Verified 11/17/20 15:07 INFECTIONS Assessment & Plan Assessment & Plan (1) Recurrent major depression-severe: Status: Acute Code(s): F33.2 - Major depressive disorder, recurrent severe without psychotic features Assessment and Plan: 50 yo female, h/o depression, PTSD, several medical problems recently exacerbated, especially Chron's Disease. Pt left M5 precipitously for Stelara infusion appt and was not able to manage sx at home with reported racing thoughts, panic, inability to handle family expectations at home, SI with resulting syncope and new onset UTI. She also is on a Prednisone taper from previous admission, just going down to 20 mg daily beginning 03/25. She is newly positive for THC this admission and we will continue medication changes as follows..... -Decrease Klonopin to 0.5 mg bid -Discontinue Remeron -Discontinue Lexapro -Will continue Paxil tapering -Depakote 250 mg bid -Amitriptyline level -Throat culture, medicated throat spray, throat drops. (2) PTSD (post-traumatic stress disorder): Status: Acute Code(s): F43.10 - Post-traumatic stress disorder, unspecified Assessment and Plan: Will encourage coping skills groups while inpatient and will continue referral to PHP and possibly DBT post discharge Assessment and Plan: No changes to the above Greater than 50% of the session was spent on counseling and/or coordination of care Patient educated on: therapeutic strategies and medical condition Informed Consent: understands Reason for contiued inpatient stay Substantial Risk for: harm to self, harm to others, inability to function and rapid decompensation
[2021-03-26 22:05] VITALS: BP 137/72; PULSE 77; TEMP 36.6
[2021-03-26] MEDS: traZODone HCL 50 MG TABLET PO (22:12)
[2021-03-26] MEDS: Amitriptyline HCl 25 MG TABLET 50 MG PO (22:12)
[2021-03-26] MEDS: OLANZapine 5 MG TABLET PO (22:12)
[2021-03-26 22:13] VITALS: BP 137/72; PULSE 77
[2021-03-26] MEDS: Doxazosin Mesylate 2 MG TABLET PO (22:13)
[2021-03-26] MEDS: Zolpidem Tartrate 5 MG TABLET PO (22:15)
[2021-03-26] MEDS: Montelukast Sodium 10 MG TABLET PO (22:15)
[2021-03-27] MEDS: oxyCODONE HCl Immed Release 5 MG TABLET PO ×4 (02:46→22:25)
[2021-03-27] MEDS: Acetaminophen 325 MG TABLET 650 MG PO ×3 (02:47→23:54)
[2021-03-27] MEDS: cephALEXin 500 MG CAPSULE PO ×3 (02:47→11:52)
[2021-03-27] MEDS: diphenhydrAMINE HCL 25 MG TABLET 50 MG PO (03:55)
[2021-03-27 06:00] VITALS: BP 110/77; PULSE 90; RESP 18; TEMP 36.1; O2SAT 97
--- NOTE | 2021-03-27 08:40 | HE.PHANOTE ---
Addendum entered by Rebecca Meza RPh 04/01/21 14:26: ANTONIO Dickinson spoke with patient again today about her Budesonide. Patient reports she has no clue what that medication is or for. I informed Christy about this and she will talk to patient on Friday. Original Note: Followed up about home medication Budesonide 3mg capsules. ANTONIO Andrews reports that patient stated that a family member will be bring it in but is unsure when. Rebecca Meza, PharmD
[2021-03-27] MEDS: Calcium Carbonate 750 MG TAB.CHEW PO (09:39)
[2021-03-27] MEDS: Topiramate 100 MG TABLET PO ×2 (09:39→20:49)
[2021-03-27] MEDS: Docusate Sodium 100 MG CAPSULE PO ×2 (09:39→20:49)
[2021-03-27] MEDS: OLANZapine 2.5 MG TABLET PO (09:39)
[2021-03-27] MEDS: Divalproex Sodium 250 MG TABLET.DR PO ×2 (09:39→20:49)
[2021-03-27] MEDS: clonazePAM 0.5 MG TABLET PO ×2 (09:40→20:49)
[2021-03-27] MEDS: Lactulose 20 GM/30 ML SOLUTION PO ×2 (09:40→22:24)
[2021-03-27] MEDS: predniSONE 20 MG TABLET PO (09:40)
[2021-03-27] MEDS: Multivitamin TABLET 1 TAB PO (09:40)
[2021-03-27 09:41] VITALS: BP 132/74; PULSE 80
[2021-03-27] MEDS: amLODIPine Besylate 5 MG TABLET PO (09:41)
[2021-03-27 10:28] VITALS: BP 132/74; PULSE 80
[2021-03-27] MEDS: Magnesium Hydrox/Alum Hydrox 30 ML ORAL.SUSP PO (16:00)
[2021-03-27] MEDS: Fluconazole 150 MG TABLET PO (17:28)
[2021-03-27 18:00] VITALS: BP 121/72; PULSE 87; TEMP 36.3
[2021-03-27] MEDS: Zolpidem Tartrate 5 MG TABLET PO (20:49)
[2021-03-27] MEDS: Montelukast Sodium 10 MG TABLET PO (20:49)
[2021-03-27] MEDS: Amitriptyline HCl 25 MG TABLET 50 MG PO (20:49)
[2021-03-27] MEDS: OLANZapine 5 MG TABLET PO (20:49)
[2021-03-27 20:50] VITALS: BP 118/70; PULSE 93
[2021-03-27] MEDS: Doxazosin Mesylate 2 MG TABLET PO (20:50)
[2021-03-27] MEDS: Nystatin Oral Susp 500,000 UNIT/5 ML ORAL.SUSP 500000 UNIT PO (20:59)
--- NOTE | 2021-03-27 21:49 | HO.PSYCHPN ---
Subjective Subjective Date of Service: 03/28/21 Reason For Visit: Depression, SI, Lability of mood Subjective Notes: Conditional Voluntary Healthcare Proxy: No Guardianship: No Medical Problems Affecting Mental Status: Yes (Chron's Colitis) Interim History: Labile in presentation with anxiety, grief, sadness, depressive sx. Passionate in her presentation. Themes of victimization, being treated poorly by other women, disrespect. Pt experiencing sx of thrust. Consulted with Dr. Cruz who knows pt well-Nystatin initiated as hx of thrush when using abx-also ordered Lidocaine spray for discomfort, throat culture pending. Reports VH- dark something , focused on room-mate having a pen near her mattress. Medication Compliance: Yes Side effects from medications: Yes (thrush from antibiotics) Attending Groups: Yes Review of Systems Acute medical concerns: Yes Medical Review of Systems: unchanged Review of Systems: Thrust-Nystatin initiated Review of Systems Reports mouth pain (thrush) and Reports sore throat Reports behavioral changes Psychiatric: Reports anxiety, Reports behavioral changes, Reports depression, Reports difficulty concentrating, Reports irritability, Reports mood swings, Reports panic attacks, Reports paranoia, Reports visual hallucinations and Reports suicidal ideation (denies) Mental Status Exam Mental Status Exam Patient Appearance: Appropriate Patient Orientation: Person, Place, Time and Situation Level of Consciousness: Alert Patient Behavior: Dependent, Talkative, Suspicious, Aggressive, Belligerent, Anxious, Fatigued, Distractible and Good Eye Contact Mood Description: Labile Affect Description: Labile Patient Cognition Impaired: No Ability to Follow Directions: Good Speech Pattern: Spontaneous Speech Memory Description: Episodic Impaired Hallucinations: Visual Delusions: Paranoid Ideation Perceptual Disturbances: Depersonalization and Derealization Thought Process: Rumination Thought Content: positive for Circumstantial, positive for Perseveration and positive for Tangential Depressive Symptoms: Increased Anxiety, Increased Irritability and Low Self Esteem Judgement: Fair Diagnostics Vital Signs (24Hr): Vital Signs - 24 hr 03/26/21 22:05 03/26/21 22:13 03/27/21 06:00 Temperature 97.9 F 97 F Pulse Rate 77 77 90 Respiratory Rate 18 Blood Pressure 137/72 137/72 110/77 Pulse Oximetry 97 03/27/21 09:41 03/27/21 10:28 03/27/21 18:00 Temperature 97.4 F Pulse Rate 80 80 87 Respiratory Rate Blood Pressure 132/74 132/74 121/72 Pulse Oximetry 03/27/21 20:50 Temperature Pulse Rate 93 Respiratory Rate Blood Pressure 118/70 Pulse Oximetry Body Mass Index 36.6 Labs Results: 03/21/21 22:42 03/21/21 22:42 Imaging Radiology Impressions: ITS Impressions Cervical Spine CT 03/21/21 23:15 IMPRESSION: No acute intracranial pathology. No cervical spine fracture or malalignment. Head CT 03/21/21 23:15 IMPRESSION: No acute intracranial pathology. No cervical spine fracture or malalignment. Abdomen/Pelvis CT 03/22/21 03:07 IMPRESSION: * Previously seen transverse and left colitis has resolved. 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 * No significant active gastrointestinal inflammation evident on the current exam. Shoulder X-Ray 03/24/21 12:10 IMPRESSION: 1. No evidence of acute left shoulder fracture or dislocation. 2. Included lungs incompletely assessed as discussed above. Consider follow-up chest x-ray for further evaluation. Head CT 03/24/21 12:14 IMPRESSION: No acute intracranial pathology. Mild right sphenoid sinus disease. Medications Medications Current Medications Generic Name Dose Route Start Last Admin Trade Name Freq PRN Reason Stop Dose Admin Acetaminophen 650 mg 03/22/21 20:00 03/27/21 09:39 Acetaminophen 325 Mg Tablet PO 650 mg Q6H PRN Administration Headache/Pain Mild Scale (1-3) Al Hydroxide/Mg Hydroxide 30 ml 03/22/21 20:00 03/27/21 16:00 Magnesium Hydrox/Alum Hydrox 30 Ml Oral.Susp PO 30 ml Q6H PRN Administration Heartburn/Nausea Amitriptyline HCl 50 mg 03/22/21 21:00 03/27/21 20:49 Amitriptyline Hcl 25 Mg Tablet PO 50 mg BEDTIME JUANCHO Administration Amlodipine Besylate 5 mg 03/25/21 09:00 03/27/21 09:41 Amlodipine Besylate 5 Mg Tablet PO 5 mg DAILY JUANCHO Administration Protocol Benzocaine 1 lozenge 03/26/21 12:19 Throat Lozenge, Medicated Lozenge MUCOUS MEM Q2H PRN Sore Throat Calcium Carbonate 750 mg 03/25/21 09:30 03/27/21 20:44 Calcium Carbonate 750 Mg Tab.Chew PO Not Given BIDPC [facility] Clonazepam 0.5 mg 03/23/21 21:00 03/27/21 20:49 Clonazepam 0.5 Mg Tablet PO 0.5 mg BID JUANCHO Administration Diphenhydramine HCl 50 mg 03/23/21 09:58 03/27/21 03:55 Diphenhydramine Hcl 25 Mg Tablet PO 50 mg Q4H PRN Administration agitation Divalproex Sodium 250 mg 03/23/21 21:00 03/27/21 20:49 Divalproex Sodium 250 Mg Tablet.Dr PO 250 mg BID JUANCHO Administration Docusate Sodium 100 mg 03/22/21 21:00 03/27/21 20:49 Docusate Sodium 100 Mg Capsule PO 100 mg BID JUANCHO Administration Doxazosin Mesylate 2 mg 03/22/21 21:00 03/27/21 20:50 Doxazosin Mesylate 2 Mg Tablet PO 2 mg BEDTIME JUANCHO Administration Protocol Ergocalciferol 1,250 mcg 03/28/21 18:00 Ergocalciferol (Vitamin D2) 1,250 Mcg Capsule PO [facility] Haloperidol 5 mg 03/23/21 09:58 03/23/21 18:30 Haloperidol 5 Mg Tablet PO 5 mg Q4H PRN Administration agitation Hydroxyzine HCl 50 mg 03/22/21 20:13 03/26/21 22:12 Hydroxyzine Hcl 50 Mg Tablet PO 50 mg TID PRN Administration Anxiety Lactulose 20 gm 03/24/21 11:50 03/27/21 09:40 Lactulose 20 Gm/30 Ml Solution PO 20 gm BID JUANCHO Administration Lidocaine 1 patch 03/22/21 19:07 Lidocaine 4 % Patch Adh..Patch TRANSDERMA DAILY PRN Pain Lidocaine HCl 15 ml 03/27/21 15:53 Lidocaine Hcl Viscous 2 % 15 Ml Solution MUCOUS MEM Q3H PRN Pain, Mild (Pain Scale 1-3) Lorazepam 2 mg 03/23/21 09:58 03/24/21 16:13 Lorazepam 1 Mg Tablet PO 2 mg Q4H PRN Administration agitation Magnesium Hydroxide 30 ml 03/22/21 20:00 03/26/21 16:49 Milk Of Magnesia 30 Ml Oral.Susp PO 30 ml DAILY PRN Administration Constipation Methotrexate 25 mg 03/27/21 18:00 Methotrexate Sodium 2.5 Mg Tablet PO [facility] [place] Montelukast Sodium 10 mg 03/22/21 21:00 03/27/21 20:49 Montelukast Sodium 10 Mg Tablet PO 10 mg BEDTIME JUANCHO Administration Multi-Ingred Medicated Throat [place] 1 spray 03/26/21 12:20 Throat [place], Medicated 20 Ml Bottle MUCOUS MEM Q2H PRN Sore Throat Multivitamins 1 tab 03/23/21 09:00 03/27/21 09:39 B-Complex With Vitamin C Tablet PO 1 tab DAILY JUANCHO Administration Multivitamins/Vitamin C 1 tab 03/22/21 19:00 03/27/21 09:40 Multivitamin Tablet PO 1 tab DAILY JUANCHO Administration Non-Formulary Medication 3 cap 03/22/21 19:00 Budesonide PO QAM JUANCHO Nystatin 500,000 unit 03/27/21 17:00 03/27/21 20:59 Nystatin Oral Susp 500,000 Unit/5 Ml Oral.Susp PO 500,000 unit QID JUANCHO Administration Protocol Olanzapine 2.5 mg 03/22/21 19:15 03/27/21 09:39 Olanzapine 2.5 Mg Tablet PO 2.5 mg DAILY JUANCHO Administration Olanzapine 5 mg 03/22/21 21:00 03/27/21 20:49 Olanzapine 5 Mg Tablet PO 5 mg BEDTIME JUANCHO Administration Paroxetine HCl 30 mg 03/22/21 19:00 03/22/21 19:25 Paroxetine Hcl 30 Mg Tablet PO 30 mg DAILY JUANCHO Administration Pharmacy Consult 1 each 03/22/21 17:37 Consult Rx Perform Med Rec MISCELLANE ONCE PRN Consult order Polyethylene Glycol 17 gm 03/23/21 18:12 03/24/21 00:08 Polyethylene Glycol 3350 17 Gm Powd.Pack PO 17 gm DAILY PRN Administration Constipation Prednisone 20 mg 03/25/21 09:00 03/27/21 09:40 Prednisone 20 Mg Tablet PO 03/31/21 09:01 20 mg DAILY JUANCHO Administration Prednisone 10 mg 04/01/21 09:00 Prednisone 10 Mg Tablet PO 04/07/21 09:01 DAILY JUANCHO Psyllium Hydrophilic Mucilloid 3.4 gm 03/25/21 09:00 03/27/21 09:41 Psyllium Seed 3.4 Gm Powd.Pack PO 3.4 gm DAILY JUANCHO Administration Topiramate 100 mg 03/22/21 21:00 03/27/21 20:49 Topiramate 100 Mg Tablet PO 100 mg BID JUANCHO Administration Trazodone HCl 50 mg 03/22/21 20:00 03/26/21 22:12 Trazodone Hcl 50 Mg Tablet PO 50 mg BEDTIME PRN Administration Insomnia Allergies Allergies Allergy/AdvReac Type Severity Reaction Status Date / Time aspirin [ASA] Allergy Intermediate RASH Verified 11/17/20 15:07 azathioprine [From IMURAN] Allergy Intermediate PANCREATIC Verified 11/17/20 15:07 INFLAMMATION ibuprofen [IBUPROFEN] Allergy Intermediate TOLD NOT Verified 11/17/20 15:07 TO TAKE levofloxacin [From LEVAQUIN] Allergy Mild YEAST Verified 11/17/20 15:07 INFECTIONS Assessment & Plan Assessment & Plan (1) Recurrent major depression-severe: Status: Acute Code(s): F33.2 - Major depressive disorder, recurrent severe without psychotic features Assessment and Plan: 50 yo female, h/o depression, PTSD, several medical problems recently exacerbated, especially Chron's Disease. Pt left M5 precipitously for Stelara infusion appt and was not able to manage sx at home with reported racing thoughts, panic, inability to handle family expectations at home, SI with resulting syncope and new onset UTI. She also is on a Prednisone taper from previous admission, just going down to 20 mg daily beginning 03/25. She is newly positive for THC this admission and we will continue medication changes as follows..... -Continue current regime -Amitriptyline level pending -Throat culture, medicated throat spray, throat drops. -Nystatin for thrust (2) PTSD (post-traumatic stress disorder): Status: Acute Code(s): F43.10 - Post-traumatic stress disorder, unspecified Assessment and Plan: Will encourage coping skills groups while inpatient and will continue referral to PHP and possibly DBT post discharge Assessment and Plan: No changes to the above Greater than 50% of the session was spent on counseling and/or coordination of care Patient educated on: medication risk/benefits and therapeutic strategies Informed Consent: further education needed Reason for contiued inpatient stay Substantial Risk for: inability to function, rapid decompensation and med/psych decompensation
[2021-03-27 22:04] VITALS: BP 118/70; PULSE 93; TEMP 36.1
[2021-03-27] MEDS: metHOTREXate sodium 2.5 MG TABLET 25 MG PO (22:27)
[2021-03-27] MEDS: traZODone HCL 50 MG TABLET PO (23:54)
[2021-03-27] MEDS: hydrOXYzine HCL 50 MG TABLET PO (23:54)
[2021-03-28] MEDS: oxyCODONE HCl Immed Release 5 MG TABLET PO ×4 (03:15→21:15)
[2021-03-28 05:40] VITALS: BP 144/82; PULSE 92; RESP 18; TEMP 36.4; O2SAT 99
[2021-03-28 06:00] VITALS: BP 144/82; PULSE 92; RESP 18; TEMP 36.4; O2SAT 99
[2021-03-28] MEDS: Multivitamin TABLET 1 TAB PO (08:24)
[2021-03-28 08:26] VITALS: BP 132/75; PULSE 90
[2021-03-28] MEDS: Nystatin Oral Susp 500,000 UNIT/5 ML ORAL.SUSP 500000 UNIT PO ×4 (08:26→21:15)
[2021-03-28] MEDS: amLODIPine Besylate 5 MG TABLET PO (08:26)
[2021-03-28] MEDS: clonazePAM 0.5 MG TABLET PO (08:27)
[2021-03-28] MEDS: Topiramate 100 MG TABLET PO ×2 (08:27→21:15)
[2021-03-28] MEDS: Divalproex Sodium 250 MG TABLET.DR PO ×2 (08:27→21:15)
[2021-03-28] MEDS: Calcium Carbonate 750 MG TAB.CHEW PO ×2 (08:27→16:33)
[2021-03-28] MEDS: OLANZapine 2.5 MG TABLET PO (08:27)
[2021-03-28] MEDS: predniSONE 20 MG TABLET PO (08:27)
[2021-03-28] MEDS: Docusate Sodium 100 MG CAPSULE PO ×2 (08:27→21:26)
[2021-03-28] MEDS: Lactulose 20 GM/30 ML SOLUTION PO ×2 (08:28→21:15)
[2021-03-28] MEDS: Magnesium Hydrox/Alum Hydrox 30 ML ORAL.SUSP PO (16:46)
[2021-03-28] MEDS: hydrOXYzine HCL 50 MG TABLET PO (16:48)
--- NOTE | 2021-03-28 17:54 | HO.PSYCHPN ---
Subjective Subjective Date of Service: 03/28/21 Reason For Visit: Depression, SI, Lability of mood Subjective Notes: Conditional Voluntary Healthcare Proxy: No Guardianship: No Medical Problems Affecting Mental Status: No Interim History: Meeting with pt and Saba DUMONT to review meds, discharge planning. Attempted to discuss pt's anger with team, however she declined to discuss it, stating that she does not agree with some of the staff. States medications make no difference . Defined her goals as to have improved focus, less panic and be able to sleep. Reviewed pain mgt for Chron's and discussed working with her GI team to find the best plan for her sx. Review of discharge planning-pt interested in PHP, DM has a new evening DBT program on line. Pt also interested in individual therapy and psychopharmacology. Medication Compliance: Yes Side effects from medications: No Attending Groups: Yes Review of Systems Acute medical concerns: No Medical Review of Systems: unchanged Review of Systems: Thrush symptoms improving Review of Systems Reports behavioral changes Psychiatric: Reports anxiety, Reports behavioral changes, Reports depression, Reports irritability and Reports suicidal ideation (denies) Mental Status Exam Mental Status Exam Patient Appearance: Appropriate Patient Orientation: Person, Place, Time and Situation Level of Consciousness: Alert Patient Behavior: Talkative, Distractible, Good Eye Contact and Crying Mood Description: Labile Affect Description: Labile Patient Cognition Impaired: No Ability to Follow Directions: Good Speech Pattern: Spontaneous Speech Memory Description: Intact Hallucinations: Auditory and Visual Perceptual Disturbances: Depersonalization and Derealization Thought Process: Goal Oriented Thought Content: positive for Goal Oriented and positive for Suicidal Ideation (denies) Depressive Symptoms: Increased Anxiety, Difficulty Sleeping and Low Self Esteem Judgement: Fair Diagnostics Vital Signs (24Hr): Vital Signs - 24 hr 03/27/21 18:00 03/27/21 20:50 03/27/21 22:04 Temperature 97.4 F 97.0 F Pulse Rate 87 93 93 Respiratory Rate Blood Pressure 121/72 118/70 118/70 Pulse Oximetry 03/28/21 05:40 03/28/21 06:00 03/28/21 08:26 Temperature 97.6 F 97.6 F Pulse Rate 92 92 90 Respiratory Rate 18 18 Blood Pressure 144/82 H 144/82 H 132/75 Pulse Oximetry 99 99 Body Mass Index 36.6 Labs Results: 03/21/21 22:42 03/21/21 22:42 Imaging Radiology Impressions: ITS Impressions Cervical Spine CT 03/21/21 23:15 IMPRESSION: No acute intracranial pathology. No cervical spine fracture or malalignment. Head CT 03/21/21 23:15 IMPRESSION: No acute intracranial pathology. No cervical spine fracture or malalignment. Abdomen/Pelvis CT 03/22/21 03:07 IMPRESSION: * Previously seen transverse and left colitis has resolved. 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 * No significant active gastrointestinal inflammation evident on the current exam. Shoulder X-Ray 03/24/21 12:10 IMPRESSION: 1. No evidence of acute left shoulder fracture or dislocation. 2. Included lungs incompletely assessed as discussed above. Consider follow-up chest x-ray for further evaluation. Head CT 03/24/21 12:14 IMPRESSION: No acute intracranial pathology. Mild right sphenoid sinus disease. Medications Medications Current Medications Generic Name Dose Route Start Last Admin Trade Name Freq PRN Reason Stop Dose Admin Acetaminophen 650 mg 03/22/21 20:00 03/27/21 23:54 Acetaminophen 325 Mg Tablet PO 650 mg Q6H PRN Administration Headache/Pain Mild Scale (1-3) Al Hydroxide/Mg Hydroxide 30 ml 03/22/21 20:00 03/28/21 16:46 Magnesium Hydrox/Alum Hydrox 30 Ml Oral.Susp PO 30 ml Q6H PRN Administration Heartburn/Nausea Amitriptyline HCl 50 mg 03/22/21 21:00 03/27/21 20:49 Amitriptyline Hcl 25 Mg Tablet PO 50 mg BEDTIME JUANCHO Administration Amlodipine Besylate 5 mg 03/25/21 09:00 03/28/21 08:26 Amlodipine Besylate 5 Mg Tablet PO 5 mg DAILY JU[facility] Administration Protocol Benzocaine 1 lozenge 03/26/21 12:19 Throat Lozenge, Medicated Lozenge MUCOUS MEM Q2H PRN Sore Throat Calcium Carbonate 750 mg 03/25/21 09:30 03/28/21 16:33 Calcium Carbonate 750 Mg Tab.Chew PO 750 mg BIDPC JUANCHO Administration Clonazepam 1 mg 03/28/21 21:00 Clonazepam 1 Mg Tablet PO BID JU[facility]CHO Diphenhydramine HCl 50 mg 03/23/21 09:58 03/27/21 03:55 Diphenhydramine Hcl 25 Mg Tablet PO 50 mg Q4H PRN Administration agitation Divalproex Sodium 250 mg 03/23/21 21:00 03/28/21 08:27 Divalproex Sodium 250 Mg Tablet.Dr PO 250 mg BID J[facility] Administration Docusate Sodium 100 mg 03/22/21 21:00 03/28/21 08:27 Docusate Sodium 100 Mg Capsule PO 100 mg BID J[facility] Administration Doxazosin Mesylate 2 mg 03/22/21 21:00 03/27/21 20:50 Doxazosin Mesylate 2 Mg Tablet PO 2 mg BEDTIME JUANCHO Administration Protocol Ergocalciferol 1,250 mcg 03/28/21 18:00 Ergocalciferol (Vitamin D2) 1,250 Mcg Capsule PO [facility] Haloperidol 5 mg 03/23/21 09:58 03/23/21 18:30 Haloperidol 5 Mg Tablet PO 5 mg Q4H PRN Administration agitation Hydroxyzine HCl 50 mg 03/22/21 20:13 03/28/21 16:48 Hydroxyzine Hcl 50 Mg Tablet PO 50 mg TID PRN Administration Anxiety Lactulose 20 gm 03/24/21 11:50 03/28/21 08:28 Lactulose 20 Gm/30 Ml Solution PO 20 gm BID JUANCHO Administration Lidocaine 1 patch 03/22/21 19:07 Lidocaine 4 % Patch Adh..Patch TRANSDERMA DAILY PRN Pain Lidocaine HCl 15 ml 03/27/21 15:53 Lidocaine Hcl Viscous 2 % 15 Ml Solution MUCOUS MEM Q3H PRN Pain, Mild (Pain Scale 1-3) Lorazepam 2 mg 03/23/21 09:58 03/24/21 16:13 Lorazepam 1 Mg Tablet PO 2 mg Q4H PRN Administration agitation Magnesium Hydroxide 30 ml 03/22/21 20:00 03/26/21 16:49 Milk Of Magnesia 30 Ml Oral.Susp PO 30 ml DAILY PRN Administration Constipation Methotrexate 25 mg 03/27/21 18:00 03/27/21 22:27 Methotrexate Sodium 2.5 Mg Tablet PO 25 mg TU JUANCHO Administration Mirtazapine 15 mg 03/28/21 21:00 Mirtazapine 15 Mg Tablet PO BEDTIME JUANCHO Montelukast Sodium 10 mg 03/22/21 21:00 03/27/21 20:49 Montelukast Sodium 10 Mg Tablet PO 10 mg BEDTIME JUANCHO Administration Multi-Ingred Medicated Throat [place] 1 spray 03/26/21 12:20 Throat [place], Medicated 20 Ml Bottle MUCOUS MEM Q2H PRN Sore Throat Multivitamins 1 tab 03/23/21 09:00 03/28/21 08:27 B-Complex With Vitamin C Tablet PO 1 tab DAILY [facility] Administration Multivitamins/Vitamin C 1 tab 03/22/21 19:00 03/28/21 08:24 Multivitamin Tablet PO 1 tab DAILY [facility] Administration Non-Formulary Medication 3 cap 03/22/21 19:00 Budesonide PO QAM [facility] Nystatin 500,000 unit 03/27/21 17:00 03/28/21 16:33 Nystatin Oral Susp 500,000 Unit/5 Ml Oral.Susp PO 500,000 unit QID [facility] Administration Protocol Oxycodone HCl 5 mg 03/27/21 21:50 03/28/21 13:55 Oxycodone Hcl Immed Release 5 Mg Tablet PO 5 mg Q4H PRN Administration Pain, Moderate (Pain Scale 4-6 Paroxetine HCl 30 mg 03/22/21 19:00 03/22/21 19:25 Paroxetine Hcl 30 Mg Tablet PO 30 mg DAILY [facility] Administration Pharmacy Consult 1 each 03/22/21 17:37 Consult Rx Perform Med Rec MISCELLANE ONCE PRN Consult order Polyethylene Glycol 17 gm 03/23/21 18:12 03/24/21 00:08 Polyethylene Glycol 3350 17 Gm Powd.Pack PO 17 gm DAILY PRN Administration Constipation Prednisone 20 mg 03/25/21 09:00 03/28/21 08:27 Prednisone 20 Mg Tablet PO 03/31/21 09:01 20 mg DAILY J[facility] Administration Prednisone 10 mg 04/01/21 09:00 Prednisone 10 Mg Tablet PO 04/07/21 09:01 DAILY [facility] Psyllium Hydrophilic Mucilloid 3.4 gm 03/25/21 09:00 03/28/21 08:28 Psyllium Seed 3.4 Gm Powd.Pack PO Not Given DAILY [facility] Risperidone 1 mg 03/28/21 21:00 Risperidone 1 Mg Tablet PO BID [facility] Topiramate 100 mg 03/22/21 21:00 03/28/21 08:27 Topiramate 100 Mg Tablet PO 100 mg BID [facility] Administration Allergies Allergies Allergy/AdvReac Type Severity Reaction Status Date / Time aspirin [ASA] Allergy Intermediate RASH Verified 03/26/21 15:07 azathioprine [From IMURAN] Allergy Intermediate PANCREATIC Verified 11/17/20 15:07 INFLAMMATION ibuprofen [IBUPROFEN] Allergy Intermediate TOLD NOT Verified 11/17/20 15:07 TO TAKE levofloxacin [From LEVAQUIN] Allergy Mild YEAST Verified 11/17/20 15:07 INFECTIONS Assessment & Plan Assessment & Plan (1) Recurrent major depression-severe: Status: Acute Code(s): F33.2 - Major depressive disorder, recurrent severe without psychotic features Assessment and Plan: 50 yo female, h/o depression, PTSD, several medical problems recently exacerbated, especially Chron's Disease. Pt left [facility]5 precipitously for Stelara infusion appt and was not able to manage sx at home with reported racing thoughts, panic, inability to handle family expectations at home, SI with resulting syncope and new onset UTI. She also is on a Prednisone taper from previous admission, just going down to 20 mg daily beginning 03/25. She is newly positive for THC this admission and we will continue medication changes as follows..... -Pt identifies current issues as poor focus, panic, insomnia -Discontinue Olanzapine, Risperdal 1 mg bid -Increase Klonopin to 1 mg bid -Return to Remeron 15 mg hs -Decrease Paxil to 25 mg daily -Discharge planning-PHP, DBT, Out pt therapy and psychopharmacology. (2) PTSD (post-traumatic stress disorder): Status: Acute Code(s): F43.10 - Post-traumatic stress disorder, unspecified Assessment and Plan: Will encourage coping skills groups while inpatient and will continue referral to PHP and possibly DBT post discharge Assessment and Plan: No changes to the above Greater than 50% of the session was spent on counseling and/or coordination of care Patient educated on: medication risk/benefits and therapeutic strategies Informed Consent: further education needed Reason for contiued inpatient stay Substantial Risk for: rapid decompensation
[2021-03-28 18:00] VITALS: BP 124/63; PULSE 84; TEMP 36.6
[2021-03-28] MEDS: Ergocalciferol (Vitamin D2) 1,250 MCG CAPSULE 1250 MCG PO (18:24)
[2021-03-28] MEDS: LORazepam 1 MG TABLET 2 MG PO (18:24)
[2021-03-28 21:15] VITALS: BP 124/63; PULSE 84
[2021-03-28] MEDS: Doxazosin Mesylate 2 MG TABLET PO (21:15)
[2021-03-28] MEDS: clonazePAM 1 MG TABLET PO (21:15)
[2021-03-28] MEDS: Amitriptyline HCl 25 MG TABLET 50 MG PO (21:15)
[2021-03-28] MEDS: risperiDONE 1 MG TABLET PO (21:15)
[2021-03-28] MEDS: Mirtazapine 15 MG TABLET PO (21:16)
[2021-03-28] MEDS: Montelukast Sodium 10 MG TABLET PO (21:17)
[2021-03-29] MEDS: oxyCODONE HCl Immed Release 5 MG TABLET PO ×4 (00:48→20:49)
[2021-03-29] MEDS: hydrOXYzine HCL 50 MG TABLET PO ×2 (00:49→23:54)
[2021-03-29] MEDS: Acetaminophen 325 MG TABLET 650 MG PO ×2 (00:49→16:04)
[2021-03-29 07:00] VITALS: BMI 35.6
[2021-03-29] MEDS: risperiDONE 1 MG TABLET PO ×2 (09:30→20:48)
[2021-03-29] MEDS: Divalproex Sodium 250 MG TABLET.DR PO ×2 (09:31→20:47)
[2021-03-29] MEDS: Multivitamin TABLET 1 TAB PO (09:31)
[2021-03-29 09:32] VITALS: BP 119/74; PULSE 84
[2021-03-29] MEDS: amLODIPine Besylate 5 MG TABLET PO (09:32)
[2021-03-29] MEDS: clonazePAM 1 MG TABLET PO ×2 (09:32→20:47)
[2021-03-29] MEDS: Topiramate 100 MG TABLET PO ×2 (09:32→20:48)
[2021-03-29] MEDS: predniSONE 20 MG TABLET PO (09:32)
[2021-03-29] MEDS: Docusate Sodium 100 MG CAPSULE PO ×2 (09:32→20:47)
[2021-03-29] MEDS: Calcium Carbonate 750 MG TAB.CHEW PO ×2 (09:32→16:04)
[2021-03-29] MEDS: Lactulose 20 GM/30 ML SOLUTION PO ×2 (09:33→20:47)
[2021-03-29] MEDS: Nystatin Oral Susp 500,000 UNIT/5 ML ORAL.SUSP 500000 UNIT PO ×4 (09:33→20:46)
[2021-03-29 10:45] VITALS: BP 119/74; PULSE 84; RESP 16; TEMP 36.8; O2SAT 97
--- NOTE | 2021-03-29 13:34 | HO.PSYCHPN ---
Subjective Subjective Date of Service: 03/29/21 Reason For Visit: Depression, SI, Lability of mood Subjective Notes: Conditional Voluntary and 3 Day (04/02/21) Healthcare Proxy: No Guardianship: No Medical Problems Affecting Mental Status: Yes (Chron's Colitis) Interim History: Pt agreed she wanted to meet, said she would return, then became involved in other activities so declined to meet. TDN submitted. We have completed discharge planning on 03/28 and are waiting to evaluate medication changes. Discharge planned for 04/02. Medication Compliance: Yes Side effects from medications: No Attending Groups: Yes Review of Systems Acute medical concerns: No Medical Review of Systems: unchanged Review of Systems Reports behavioral changes Psychiatric: Reports anxiety, Reports behavioral changes, Reports depression, Reports irritability, Reports anhedonia and Reports suicidal ideation (denies) Mental Status Exam Mental Status Exam Patient Appearance: Appropriate Patient Orientation: Person, Place, Time and Situation Level of Consciousness: Alert Patient Behavior: Talkative Mood Description: Labile Affect Description: Labile Patient Cognition Impaired: No Ability to Follow Directions: Good Speech Pattern: Spontaneous Speech Memory Description: Episodic Impaired Hallucinations: Auditory and Visual Perceptual Disturbances: Depersonalization Thought Process: Distracted Thought Content: positive for [place], positive for Circumstantial, positive for Goal Oriented and positive for Suicidal Ideation (denies) Depressive Symptoms: Increased Irritability and Low Self Esteem Judgement: Fair Diagnostics Vital Signs (24Hr): Vital Signs - 24 hr 03/28/21 18:00 03/28/21 21:15 03/29/21 09:32 Temperature 98 F Pulse Rate 84 84 84 Respiratory Rate Blood Pressure 124/63 124/63 119/74 Pulse Oximetry 03/29/21 10:45 Temperature 98.2 F Pulse Rate 84 Respiratory Rate 16 Blood Pressure 119/74 Pulse Oximetry 97 Body Mass Index 35.6 Labs Results: 03/21/21 22:42 03/21/21 22:42 Imaging Radiology Impressions: ITS Impressions Cervical Spine CT 03/21/21 23:15 IMPRESSION: No acute intracranial pathology. No cervical spine fracture or malalignment. Head CT 03/21/21 23:15 IMPRESSION: No acute intracranial pathology. No cervical spine fracture or malalignment. Abdomen/Pelvis CT 03/22/21 03:07 IMPRESSION: * Previously seen transverse and left colitis has resolved. 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 * No significant active gastrointestinal inflammation evident on the current exam. Shoulder X-Ray 03/24/21 12:10 IMPRESSION: 1. No evidence of acute left shoulder fracture or dislocation. 2. Included lungs incompletely assessed as discussed above. Consider follow-up chest x-ray for further evaluation. Head CT 03/24/21 12:14 IMPRESSION: No acute intracranial pathology. Mild right sphenoid sinus disease. Medications Medications Current Medications Generic Name Dose Route Start Last Admin Trade Name Freq PRN Reason Stop Dose Admin Acetaminophen 650 mg 03/22/21 20:00 03/29/21 00:49 Acetaminophen 325 Mg Tablet PO 650 mg Q6H PRN Administration Headache/Pain Mild Scale (1-3) Al Hydroxide/Mg Hydroxide 30 ml 03/22/21 20:00 03/28/21 16:46 Magnesium Hydrox/Alum Hydrox 30 Ml Oral.Susp PO 30 ml Q6H PRN Administration Heartburn/Nausea Amitriptyline HCl 50 mg 03/22/21 21:00 03/28/21 21:15 Amitriptyline Hcl 25 Mg Tablet PO 50 mg BEDTIME JUANCHO Administration Amlodipine Besylate 5 mg 03/25/21 09:00 03/29/21 09:32 Amlodipine Besylate 5 Mg Tablet PO 5 mg DAILY [facility] Administration Protocol Benzocaine 1 lozenge 03/26/21 12:19 Throat Lozenge, Medicated Lozenge MUCOUS MEM Q2H PRN Sore Throat Calcium Carbonate 750 mg 03/25/21 09:30 03/29/21 09:32 Calcium Carbonate 750 Mg Tab.Chew PO 750 mg BIDPC J[facility]ANCHO Administration Clonazepam 1 mg 03/28/21 21:00 03/29/21 09:32 Clonazepam 1 Mg Tablet PO 1 mg BID [facility] Administration Diphenhydramine HCl 50 mg 03/23/21 09:58 03/27/21 03:55 Diphenhydramine Hcl 25 Mg Tablet PO 50 mg Q4H PRN Administration agitation Divalproex Sodium 250 mg 03/23/21 21:00 03/29/21 09:31 Divalproex Sodium 250 Mg Tablet.Dr PO 250 mg BID [facility] Administration Docusate Sodium 100 mg 03/22/21 21:00 03/29/21 09:32 Docusate Sodium 100 Mg Capsule PO 100 mg BID [facility] Administration Doxazosin Mesylate 2 mg 03/22/21 21:00 03/28/21 21:15 Doxazosin Mesylate 2 Mg Tablet PO 2 mg BEDTIME JUANCHO Administration Protocol Ergocalciferol 1,250 mcg 03/28/21 18:00 03/28/21 18:24 Ergocalciferol (Vitamin D2) 1,250 Mcg Capsule PO 1,250 mcg WE [facility]AN[facility] Administration Haloperidol 5 mg 03/23/21 09:58 03/23/21 18:30 Haloperidol 5 Mg Tablet PO 5 mg Q4H PRN Administration agitation Hydroxyzine HCl 50 mg 03/22/21 20:13 03/29/21 00:49 Hydroxyzine Hcl 50 Mg Tablet PO 50 mg TID PRN Administration Anxiety Lactulose 20 gm 03/24/21 11:50 03/29/21 09:33 Lactulose 20 Gm/30 Ml Solution PO 20 gm BID JUANCHO Administration Lidocaine 1 patch 03/22/21 19:07 Lidocaine 4 % Patch Adh..Patch TRANSDERMA DAILY PRN Pain Lidocaine HCl 15 ml 03/27/21 15:53 Lidocaine Hcl Viscous 2 % 15 Ml Solution MUCOUS MEM Q3H PRN Pain, Mild (Pain Scale 1-3) Lorazepam 2 mg 03/23/21 09:58 03/28/21 18:24 Lorazepam 1 Mg Tablet PO 2 mg Q4H PRN Administration agitation Magnesium Hydroxide 30 ml 03/22/21 20:00 03/26/21 16:49 Milk Of Magnesia 30 Ml Oral.Susp PO 30 ml DAILY PRN Administration Constipation Methotrexate 25 mg 03/27/21 18:00 03/27/21 22:27 Methotrexate Sodium 2.5 Mg Tablet PO 25 mg TU JUANCHO Administration Mirtazapine 15 mg 03/28/21 21:00 03/28/21 21:16 Mirtazapine 15 Mg Tablet PO 15 mg BEDTIME J[facility]AN[facility] Administration Montelukast Sodium 10 mg 03/22/21 21:00 03/28/21 21:17 Montelukast Sodium 10 Mg Tablet PO 10 mg BEDTIME JUANCHO Administration Multi-Ingred Medicated Throat [place] 1 spray 03/26/21 12:20 Throat [place], Medicated 20 Ml Bottle MUCOUS MEM Q2H PRN Sore Throat Multivitamins 1 tab 03/23/21 09:00 03/29/21 09:32 B-Complex With Vitamin C Tablet PO 1 tab DAILY [facility] Administration Multivitamins/Vitamin C 1 tab 03/22/21 19:00 03/29/21 09:31 Multivitamin Tablet PO 1 tab DAILY [facility] Administration Non-Formulary Medication 3 cap 03/22/21 19:00 Budesonide PO QAM [facility] Nystatin 500,000 unit 03/27/21 17:00 03/29/21 09:33 Nystatin Oral Susp 500,000 Unit/5 Ml Oral.Susp PO 500,000 unit QID [facility] Administration Protocol Oxycodone HCl 5 mg 03/27/21 21:50 03/29/21 09:31 Oxycodone Hcl Immed Release 5 Mg Tablet PO 5 mg Q4H PRN Administration Pain, Moderate (Pain Scale 4-6 Paroxetine HCl 25 mg 03/29/21 09:00 Paroxetine Hcl 10 Mg Tablet PO DAILY [facility] Pharmacy Consult 1 each 03/22/21 17:37 Consult Rx Perform Med Rec MISCELLANE ONCE PRN Consult order Polyethylene Glycol 17 gm 03/23/21 18:12 03/24/21 00:08 Polyethylene Glycol 3350 17 Gm Powd.Pack PO 17 gm DAILY PRN Administration Constipation Prednisone 20 mg 03/25/21 09:00 03/29/21 09:32 Prednisone 20 Mg Tablet PO 03/31/21 09:01 20 mg DAILY [facility] Administration Prednisone 10 mg 04/01/21 09:00 Prednisone 10 Mg Tablet PO 04/07/21 09:01 DAILY [facility] Psyllium Hydrophilic Mucilloid 3.4 gm 03/25/21 09:00 03/29/21 09:35 Psyllium Seed 3.4 Gm Powd.Pack PO Not Given DAILY [facility] Risperidone 1 mg 03/28/21 21:00 03/29/21 09:30 Risperidone 1 Mg Tablet PO 1 mg BID [facility] Administration Topiramate 100 mg 03/22/21 21:00 03/29/21 09:32 Topiramate 100 Mg Tablet PO 100 mg BID [facility] Administration Allergies Allergies Allergy/AdvReac Type Severity Reaction Status Date / Time aspirin [ASA] Allergy Intermediate RASH Verified 11/17/20 15:07 azathioprine [From IMURAN] Allergy Intermediate PANCREATIC Verified 11/17/20 15:07 INFLAMMATION ibuprofen [IBUPROFEN] Allergy Intermediate TOLD NOT Verified 11/17/20 15:07 TO TAKE levofloxacin [From LEVAQUIN] Allergy Mild YEAST Verified 11/17/20 15:07 INFECTIONS Assessment & Plan Assessment & Plan (1) Recurrent major depression-severe: Status: Acute Code(s): F33.2 - Major depressive disorder, recurrent severe without psychotic features Assessment and Plan: 50 yo female, h/o depression, PTSD, several medical problems recently exacerbated, especially Chron's Disease. Pt left M5 precipitously for Stelara infusion appt and was not able to manage sx at home with reported racing thoughts, panic, inability to handle family expectations at home, SI with resulting syncope and new onset UTI. She also is on a Prednisone taper from previous admission, just going down to 20 mg daily beginning 03/25. She is newly positive for THC this admission and we will continue medication changes as follows..... -Pt identifies current issues as poor focus, panic, insomnia - Risperdal 1 mg bid - Klonopin to 1 mg bid - Remeron 15 mg hs - Paxil to 25 mg daily -Discharge planning-PHP, DBT, Out pt therapy and psychopharmacology. (2) PTSD (post-traumatic stress disorder): Status: Acute Code(s): F43.10 - Post-traumatic stress disorder, unspecified Assessment and Plan: Will encourage coping skills groups while inpatient and will continue referral to PHP and possibly DBT post discharge Assessment and Plan: No changes to the above Greater than 50% of the session was spent on counseling and/or coordination of care Informed Consent: further education needed Reason for contiued inpatient stay Substantial Risk for: inability to function and rapid decompensation
[2021-03-29] MEDS: LORazepam 1 MG TABLET 2 MG PO ×2 (17:25→23:54)
[2021-03-29] MEDS: diphenhydrAMINE HCL 25 MG TABLET 50 MG PO ×2 (17:27→23:54)
[2021-03-29 18:00] VITALS: BP 124/67; PULSE 77; TEMP 36.3
[2021-03-29] MEDS: Mirtazapine 15 MG TABLET PO (20:47)
[2021-03-29 20:48] VITALS: BP 126/67; PULSE 77
[2021-03-29] MEDS: Montelukast Sodium 10 MG TABLET PO (20:48)
[2021-03-29] MEDS: Doxazosin Mesylate 2 MG TABLET PO (20:48)
[2021-03-29] MEDS: Amitriptyline HCl 25 MG TABLET 50 MG PO (20:48)
[2021-03-29] MEDS: HaloperidoL 5 MG TABLET PO (23:54)
[2021-03-30] MEDS: oxyCODONE HCl Immed Release 5 MG TABLET PO ×4 (02:02→21:30)
[2021-03-30] MEDS: Acetaminophen 325 MG TABLET 650 MG PO ×2 (02:02→21:31)
[2021-03-30] MEDS: Lactulose 20 GM/30 ML SOLUTION PO ×2 (10:42→21:32)
[2021-03-30] MEDS: Topiramate 100 MG TABLET PO ×2 (10:43→21:32)
[2021-03-30] MEDS: predniSONE 20 MG TABLET PO (10:43)
[2021-03-30] MEDS: clonazePAM 1 MG TABLET PO ×2 (10:43→21:32)
[2021-03-30] MEDS: risperiDONE 1 MG TABLET PO ×2 (10:43→21:32)
[2021-03-30 10:44] VITALS: BP 161/74; PULSE 71
[2021-03-30] MEDS: Nystatin Oral Susp 500,000 UNIT/5 ML ORAL.SUSP 500000 UNIT PO ×3 (10:44→21:33)
[2021-03-30] MEDS: Docusate Sodium 100 MG CAPSULE PO ×2 (10:44→21:33)
[2021-03-30] MEDS: Multivitamin TABLET 1 TAB PO (10:44)
[2021-03-30] MEDS: Calcium Carbonate 750 MG TAB.CHEW PO ×2 (10:44→17:04)
[2021-03-30] MEDS: amLODIPine Besylate 5 MG TABLET PO (10:44)
[2021-03-30] MEDS: Divalproex Sodium 250 MG TABLET.DR PO ×2 (10:45→21:30)
[2021-03-30 11:27] VITALS: RESP 16; TEMP 36.9; O2SAT 97
--- NOTE | 2021-03-30 14:57 | P.PNPSI_ITS ---
Subjective Subjective Date of Service: 03/30/21 Reason For Visit: Depression, SI, Lability of mood Subjective Notes: Conditional Voluntary and 3 Day (04/03) Healthcare Proxy: No Guardianship: No Medical Problems Affecting Mental Status: Yes (Chron's colitis; Prednisone tapering) Interim History: Labile and feeling stressed today. Asking for discharge, crying I need a door to door lead generation. 14 yo adoptive son currently residing with pt's daughter who has 6 children. Family called his uncle to take him to [place] while pt recovers in hosptial-pt believes uncle wants custody and discussed a few difficult previous interactions with him. Calls with pt to both daughters to review why she will not be discharged today-both agree that she should focus on her health and allow son's extended family to help. Call to pt's mother-pt requested she bring her walker in-mother will be in after 3pm. Crying, angry at times with lability. Medication Compliance: Yes Side effects from medications: No Attending Groups: Yes Review of Systems Chron's colitis- Prednisone tapering s/p flare. Will decrease to 10 mg daily next week. Medical Review of Systems: unchanged Review of Systems Skin/Breast: Reports pruritus (area of healing acne-1cm diameter on abdomen-no evidence of infection) Reports behavioral changes Psychiatric: Reports behavioral changes, Reports depression, Reports difficulty concentrating, Reports irritability, Reports anhedonia, Reports mood swings, Reports paranoia and Reports suicidal ideation (denies) Diagnostics Vital Signs (24Hr): Vital Signs - 24 hr 03/29/21 18:00 03/29/21 20:48 03/30/21 10:44 Temperature 97.3 F Pulse Rate 77 77 71 Respiratory Rate Blood Pressure 124/67 126/67 161/74 H Pulse Oximetry 03/30/21 11:27 Temperature 98.4 F Pulse Rate Respiratory Rate 16 Blood Pressure Pulse Oximetry 97 Body Mass Index 35.6 Labs Results: 03/21/21 22:42 03/21/21 22:42 Imaging Radiology Impressions: ITS Impressions Cervical Spine CT 03/21/21 23:15 IMPRESSION: No acute intracranial pathology. No cervical spine fracture or malalignment. Head CT 03/21/21 23:15 IMPRESSION: No acute intracranial pathology. No cervical spine fracture or malalignment. Abdomen/Pelvis CT 03/22/21 03:07 IMPRESSION: * Previously seen transverse and left colitis has resolved. 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 * No significant active gastrointestinal inflammation evident on the current exam. Shoulder X-Ray 03/24/21 12:10 IMPRESSION: 1. No evidence of acute left shoulder fracture or dislocation. 2. Included lungs incompletely assessed as discussed above. Consider follow-up chest x-ray for further evaluation. Head CT 03/24/21 12:14 IMPRESSION: No acute intracranial pathology. Mild right sphenoid sinus disease. Medications Medications Current Medications Generic Name Dose Route Start Last Admin Trade Name Freq PRN Reason Stop Dose Admin Acetaminophen 650 mg 03/22/21 20:00 03/30/21 02:02 Acetaminophen 325 Mg Tablet PO 650 mg Q6H PRN Administration Headache/Pain Mild Scale (1-3) Al Hydroxide/Mg Hydroxide 30 ml 03/22/21 20:00 03/28/21 16:46 Magnesium Hydrox/Alum Hydrox 30 Ml Oral.Susp PO 30 ml Q6H PRN Administration Heartburn/Nausea Amitriptyline HCl 50 mg 03/22/21 21:00 03/29/21 20:48 Amitriptyline Hcl 25 Mg Tablet PO 50 mg BEDTIME [facility] Administration Amlodipine Besylate 5 mg 03/25/21 09:00 03/30/21 10:44 Amlodipine Besylate 5 Mg Tablet PO 5 mg DAILY [facility] Administration Protocol Benzocaine 1 lozenge 03/26/21 12:19 Throat Lozenge, Medicated Lozenge MUCOUS MEM Q2H PRN Sore Throat Calcium Carbonate 750 mg 03/25/21 09:30 03/30/21 10:44 Calcium Carbonate 750 Mg Tab.Chew PO 750 mg BIDPC [facility] Administration Clonazepam 1 mg 03/28/21 21:00 03/30/21 10:43 Clonazepam 1 Mg Tablet PO 1 mg BID [facility] Administration Diphenhydramine HCl 50 mg 03/23/21 09:58 03/29/21 23:54 Diphenhydramine Hcl 25 Mg Tablet PO 50 mg Q4H PRN Administration agitation Divalproex Sodium 250 mg 03/23/21 21:00 03/30/21 10:45 Divalproex Sodium 250 Mg Tablet.Dr PO 250 mg BID [facility] Administration Docusate Sodium 100 mg 03/22/21 21:00 03/30/21 10:44 Docusate Sodium 100 Mg Capsule PO 100 mg BID [facility] Administration Doxazosin Mesylate 2 mg 03/22/21 21:00 03/29/21 20:48 Doxazosin Mesylate 2 Mg Tablet PO 2 mg BEDTIME [facility] Administration Protocol Ergocalciferol 1,250 mcg 03/28/21 18:00 03/28/21 18:24 Ergocalciferol (Vitamin D2) 1,250 Mcg Capsule PO 1,250 mcg WE [facility] Administration Haloperidol 5 mg 03/23/21 09:58 03/29/21 23:54 Haloperidol 5 Mg Tablet PO 5 mg Q4H PRN Administration agitation Hydroxyzine HCl 50 mg 03/22/21 20:13 03/29/21 23:54 Hydroxyzine Hcl 50 Mg Tablet PO 50 mg TID PRN Administration Anxiety Lactulose 20 gm 03/24/21 11:50 03/30/21 10:42 Lactulose 20 Gm/30 Ml Solution PO 20 gm BID [facility] Administration Lidocaine 1 patch 03/22/21 19:07 Lidocaine 4 % Patch Adh..Patch TRANSDERMA DAILY PRN Pain Lidocaine HCl 15 ml 03/27/21 15:53 Lidocaine Hcl Viscous 2 % 15 Ml Solution MUCOUS MEM Q3H PRN Pain, Mild (Pain Scale 1-3) Lorazepam 2 mg 03/23/21 09:58 03/29/21 23:54 Lorazepam 1 Mg Tablet PO 2 mg Q4H PRN Administration agitation Magnesium Hydroxide 30 ml 03/22/21 20:00 03/26/21 16:49 Milk Of Magnesia 30 Ml Oral.Susp PO 30 ml DAILY PRN Administration Constipation Methotrexate 25 mg 03/27/21 18:00 03/27/21 22:27 Methotrexate Sodium 2.5 Mg Tablet PO 25 mg TU [facility] Administration Mirtazapine 15 mg 03/28/21 21:00 03/29/21 20:47 Mirtazapine 15 Mg Tablet PO 15 mg BEDTIME [facility] Administration Montelukast Sodium 10 mg 03/22/21 21:00 03/29/21 20:48 Montelukast Sodium 10 Mg Tablet PO 10 mg BEDTIME [facility] Administration Multi-Ingred Medicated Throat [place] 1 spray 03/26/21 12:20 Throat [place], Medicated 20 Ml Bottle MUCOUS MEM Q2H PRN Sore Throat Multivitamins 1 tab 03/23/21 09:00 03/30/21 10:43 B-Complex With Vitamin C Tablet PO 1 tab DAILY [facility] Administration Multivitamins/Vitamin C 1 tab 03/22/21 19:00 03/30/21 10:44 Multivitamin Tablet PO 1 tab DAILY [facility] Administration Non-Formulary Medication 3 cap 03/22/21 19:00 Budesonide PO QAM [facility] Nystatin 500,000 unit 03/27/21 17:00 03/30/21 14:03 Nystatin Oral Susp 500,000 Unit/5 Ml Oral.Susp PO Not Given QID [facility] Protocol Oxycodone HCl 5 mg 03/27/21 21:50 03/30/21 10:44 Oxycodone Hcl Immed Release 5 Mg Tablet PO 5 mg Q4H PRN Administration Pain, Moderate (Pain Scale 4-6 Paroxetine HCl 25 mg 03/29/21 09:00 Paroxetine Hcl 10 Mg Tablet PO DAILY [facility] Pharmacy Consult 1 each 03/22/21 17:37 Consult Rx Perform Med Rec MISCELLANE ONCE PRN Consult order Polyethylene Glycol 17 gm 03/23/21 18:12 03/24/21 00:08 Polyethylene Glycol 3350 17 Gm Powd.Pack PO 17 gm DAILY PRN Administration Constipation Prednisone 20 mg 03/25/21 09:00 03/30/21 10:43 Prednisone 20 Mg Tablet PO 03/31/21 09:01 20 mg DAILY [facility] Administration Prednisone 10 mg 04/01/21 09:00 Prednisone 10 Mg Tablet PO 04/07/21 09:01 DAILY [facility] Psyllium Hydrophilic Mucilloid 3.4 gm 03/25/21 09:00 03/30/21 10:52 Psyllium Seed 3.4 Gm Powd.Pack PO Not Given DAILY [facility] Risperidone 1 mg 03/28/21 21:00 03/30/21 10:43 Risperidone 1 Mg Tablet PO 1 mg BID [facility] Administration Topiramate 100 mg 03/22/21 21:00 03/30/21 10:43 Topiramate 100 Mg Tablet PO 100 mg BID [facility] Administration Allergies Allergies Allergy/AdvReac Type Severity Reaction Status Date / Time aspirin [ASA] Allergy Intermediate RASH Verified 11/17/20 15:07 azathioprine [From IMURAN] Allergy Intermediate PANCREATIC Verified 11/17/20 15:07 INFLAMMATION ibuprofen [IBUPROFEN] Allergy Intermediate TOLD NOT Verified 11/17/20 15:07 TO TAKE levofloxacin [From LEVAQUIN] Allergy Mild YEAST Verified 11/17/20 15:07 INFECTIONS Assessment & Plan Assessment & Plan (1) Recurrent major depression-severe: Status: Acute Code(s): F33.2 - Major depressive disorder, recurrent severe without psychotic features Assessment and Plan: 50 yo female, h/o depression, PTSD, several medical problems recently exacerbated, especially Chron's Disease. Pt left M5 precipitously for Stelara infusion appt and was not able to manage sx at home with reported racing thoughts, panic, inability to handle family expectations at home, SI with resulting syncope and new onset UTI. She also is on a Prednisone taper from previous admission, just going down to 10 mg daily beginning next week. She is newly positive for THC this admission and we will continue medication changes as follows..... -Pt identifies current issues as poor focus, panic, insomnia - Risperdal 1 mg bid - Klonopin to 1 mg bid - Remeron 15 mg hs - Tapering of Paxil to decrease to 20 mg daily on 04/01 -Discharge planning-PHP, DBT, Out pt therapy and psychopharmacology. (2) PTSD (post-traumatic stress disorder): Status: Acute Code(s): F43.10 - Post-traumatic stress disorder, unspecified Assessment and Plan: Will encourage coping skills groups while inpatient and will continue referral to PHP and possibly DBT post discharge Assessment and Plan: No changes to the above Greater than 50% of the session was spent on counseling and/or coordination of care Patient educated on: medication risk/benefits and therapeutic strategies Informed Consent: further education needed Reason for contiued inpatient stay Substantial Risk for: inability to function, rapid decompensation and med/psych decompensation
[2021-03-30] MEDS: hydrOXYzine HCL 50 MG TABLET PO ×2 (17:04→21:36)
[2021-03-30 21:25] VITALS: BP 116/69; PULSE 94; TEMP 36.9
[2021-03-30] MEDS: Amitriptyline HCl 25 MG TABLET 50 MG PO (21:30)
[2021-03-30 21:32] VITALS: BP 116/69; PULSE 94
[2021-03-30] MEDS: Mirtazapine 15 MG TABLET PO (21:32)
[2021-03-30] MEDS: Montelukast Sodium 10 MG TABLET PO (21:32)
[2021-03-30] MEDS: Doxazosin Mesylate 2 MG TABLET PO (21:32)
[2021-03-31] MEDS: oxyCODONE HCl Immed Release 5 MG TABLET PO ×4 (00:04→21:51)
[2021-03-31 09:34] VITALS: BP 129/66; PULSE 88
[2021-03-31] MEDS: amLODIPine Besylate 5 MG TABLET PO (09:34)
[2021-03-31] MEDS: clonazePAM 1 MG TABLET PO ×2 (09:34→21:50)
[2021-03-31] MEDS: Multivitamin TABLET 1 TAB PO (09:34)
[2021-03-31] MEDS: Topiramate 100 MG TABLET PO ×2 (09:34→21:51)
[2021-03-31] MEDS: risperiDONE 1 MG TABLET PO ×2 (09:34→21:50)
[2021-03-31] MEDS: Docusate Sodium 100 MG CAPSULE PO ×2 (09:34→21:50)
[2021-03-31] MEDS: predniSONE 20 MG TABLET PO (09:35)
[2021-03-31] MEDS: Calcium Carbonate 750 MG TAB.CHEW PO ×2 (09:35→17:48)
[2021-03-31] MEDS: Divalproex Sodium 250 MG TABLET.DR PO ×2 (09:35→21:51)
[2021-03-31] MEDS: Nystatin Oral Susp 500,000 UNIT/5 ML ORAL.SUSP 500000 UNIT PO ×4 (09:36→21:50)
[2021-03-31] MEDS: Lactulose 20 GM/30 ML SOLUTION PO ×2 (09:36→21:49)
[2021-03-31] MEDS: PARoxetine HCL 20 MG TABLET 25 MG PO (09:40)
[2021-03-31 09:56] VITALS: RESP 16; TEMP 36.3; O2SAT 97
[2021-03-31 16:24] VITALS: BP 114/66; PULSE 89; TEMP 36.5
[2021-03-31] MEDS: diphenhydrAMINE HCL 25 MG TABLET 50 MG PO (17:51)
[2021-03-31] MEDS: LORazepam 1 MG TABLET 2 MG PO (17:51)
[2021-03-31] MEDS: HaloperidoL 5 MG TABLET PO (17:51)
--- NOTE | 2021-03-31 17:56 | HO.PSYCHPN ---
Subjective Subjective Date of Service: 04/01/21 Reason For Visit: Depression, SI, Lability of mood Interim History: Patient seen and discussed with team. Patient evaluated this morning with foreign language interpreter and upon interview he reports i feel okay. Says her sleep is bad and attributes this to those meds dont work, I come back 2 hours and can't sleep. She says she feels restless, continues to complain of being in pain, the pain is a lot. Says her pain meds of oxycodone is not working, denies tylenol or nsaids helping. Mood is not that good. Appetite is described as low. In the milieu, patient is paranoid in behavior accused staff and other patients of stealing her art work, she was intrusive and entering into other patient's rooms to find the art work. Denies SI/SIB/HI upon inquiry. Presents as irritable but denies assaultive ideation. Says she feels safe. Review of Systems Medical Review of Systems: unchanged Mental Status Exam Mental Status Exam Narrative: Patient Appearance:?Appropriate Patient Orientation:?Person, Place, Time and Situation Level of Consciousness:?Alert Patient Behavior:?Talkative Mood Description:?Labile Affect Description:?Labile Patient Cognition Impaired:?No Ability to Follow Directions:?Good Speech Pattern:?Spontaneous Speech Memory Description:?Episodic Impaired Hallucinations:?Auditory and Visual Perceptual Disturbances:?Depersonalization Thought Process:?Distracted Thought Content:?positive for [place], positive for Circumstantial, positive for Goal Oriented and positive for Suicidal Ideation (denies) Depressive Symptoms:?Increased Irritability and Low Self Esteem Judgement:?Fair Diagnostics Vital Signs (24Hr): Vital Signs - 24 hr 03/30/21 21:25 03/30/21 21:32 03/31/21 09:34 Temperature 98.5 F Pulse Rate 94 94 88 Respiratory Rate Blood Pressure 116/69 116/69 129/66 Pulse Oximetry 03/31/21 09:56 03/31/21 16:24 Temperature 97.4 F 97.7 F Pulse Rate 89 Respiratory Rate 16 Blood Pressure 114/66 Pulse Oximetry 97 Body Mass Index 35.6 Labs Results: 03/21/21 22:42 03/21/21 22:42 Imaging Radiology Impressions: ITS Impressions Cervical Spine CT 03/21/21 23:15 IMPRESSION: No acute intracranial pathology. No cervical spine fracture or malalignment. Head CT 03/21/21 23:15 IMPRESSION: No acute intracranial pathology. No cervical spine fracture or malalignment. Abdomen/Pelvis CT 03/22/21 03:07 IMPRESSION: * Previously seen transverse and left colitis has resolved. 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 * No significant active gastrointestinal inflammation evident on the current exam. Shoulder X-Ray 03/24/21 12:10 IMPRESSION: 1. No evidence of acute left shoulder fracture or dislocation. 2. Included lungs incompletely assessed as discussed above. Consider follow-up chest x-ray for further evaluation. Head CT 03/24/21 12:14 IMPRESSION: No acute intracranial pathology. Mild right sphenoid sinus disease. Medications Medications Current Medications Generic Name Dose Route Start Last Admin Trade Name Freq PRN Reason Stop Dose Admin Acetaminophen 650 mg 03/22/21 20:00 03/30/21 21:31 Acetaminophen 325 Mg Tablet PO 650 mg Q6H PRN Administration Headache/Pain Mild Scale (1-3) Al Hydroxide/Mg Hydroxide 30 ml 03/22/21 20:00 03/28/21 16:46 Magnesium Hydrox/Alum Hydrox 30 Ml Oral.Susp PO 30 ml Q6H PRN Administration Heartburn/Nausea Amitriptyline HCl 50 mg 03/22/21 21:00 03/30/21 21:30 Amitriptyline Hcl 25 Mg Tablet PO 50 mg BEDTIME [facility] Administration Amlodipine Besylate 5 mg 03/25/21 09:00 03/31/21 09:34 Amlodipine Besylate 5 Mg Tablet PO 5 mg DAILY [facility] Administration Protocol Benzocaine 1 lozenge 03/26/21 12:19 Throat Lozenge, Medicated Lozenge MUCOUS MEM Q2H PRN Sore Throat Calcium Carbonate 750 mg 03/25/21 09:30 03/31/21 09:35 Calcium Carbonate 750 Mg Tab.Chew PO 750 mg BIDPC [facility] Administration Clonazepam 1 mg 03/28/21 21:00 03/31/21 09:34 Clonazepam 1 Mg Tablet PO 1 mg BID [facility] Administration Diphenhydramine HCl 50 mg 03/23/21 09:58 03/29/21 23:54 Diphenhydramine Hcl 25 Mg Tablet PO 50 mg Q4H PRN Administration agitation Divalproex Sodium 250 mg 03/23/21 21:00 03/31/21 09:35 Divalproex Sodium 250 Mg Tablet.Dr PO 250 mg BID [facility] Administration Docusate Sodium 100 mg 03/22/21 21:00 03/31/21 09:34 Docusate Sodium 100 Mg Capsule PO 100 mg BID [facility] Administration Doxazosin Mesylate 2 mg 03/22/21 21:00 03/30/21 21:32 Doxazosin Mesylate 2 Mg Tablet PO 2 mg BEDTIME [facility] Administration Protocol Ergocalciferol 1,250 mcg 03/28/21 18:00 03/28/21 18:24 Ergocalciferol (Vitamin D2) 1,250 Mcg Capsule PO 1,250 mcg WE [facility] Administration Haloperidol 5 mg 03/23/21 09:58 03/29/21 23:54 Haloperidol 5 Mg Tablet PO 5 mg Q4H PRN Administration agitation Hydroxyzine HCl 50 mg 03/22/21 20:13 03/30/21 21:36 Hydroxyzine Hcl 50 Mg Tablet PO 50 mg TID PRN Administration Anxiety Lactulose 20 gm 03/24/21 11:50 03/31/21 09:36 Lactulose 20 Gm/30 Ml Solution PO 20 gm BID [facility] Administration Lidocaine 1 patch 03/22/21 19:07 Lidocaine 4 % Patch Adh..Patch TRANSDERMA DAILY PRN Pain Lidocaine HCl 15 ml 03/27/21 15:53 Lidocaine Hcl Viscous 2 % 15 Ml Solution MUCOUS MEM Q3H PRN Pain, Mild (Pain Scale 1-3) Lorazepam 2 mg 03/23/21 09:58 03/29/21 23:54 Lorazepam 1 Mg Tablet PO 2 mg Q4H PRN Administration agitation Magnesium Hydroxide 30 ml 03/22/21 20:00 03/26/21 16:49 Milk Of Magnesia 30 Ml Oral.Susp PO 30 ml DAILY PRN Administration Constipation Methotrexate 25 mg 03/27/21 18:00 03/27/21 22:27 Methotrexate Sodium 2.5 Mg Tablet PO 25 mg TU [facility] Administration Mirtazapine 15 mg 03/28/21 21:00 03/30/21 21:32 Mirtazapine 15 Mg Tablet PO 15 mg BEDTIME [facility] Administration Montelukast Sodium 10 mg 03/22/21 21:00 03/30/21 21:32 Montelukast Sodium 10 Mg Tablet PO 10 mg BEDTIME [facility] Administration Multi-Ingred Medicated Throat [place] 1 spray 03/26/21 12:20 Throat [place], Medicated 20 Ml Bottle MUCOUS MEM Q2H PRN Sore Throat Multivitamins 1 tab 03/23/21 09:00 03/31/21 09:35 B-Complex With Vitamin C Tablet PO 1 tab DAILY [facility] Administration Multivitamins/Vitamin C 1 tab 03/22/21 19:00 03/31/21 09:34 Multivitamin Tablet PO 1 tab DAILY [facility] Administration Non-Formulary Medication 3 cap 03/22/21 19:00 Budesonide PO QAM [facility] Nystatin 500,000 unit 03/27/21 17:00 03/31/21 13:58 Nystatin Oral Susp 500,000 Unit/5 Ml Oral.Susp PO 500,000 unit QID [facility] Administration Protocol Oxycodone HCl 5 mg 03/27/21 21:50 03/31/21 14:05 Oxycodone Hcl Immed Release 5 Mg Tablet PO 5 mg Q4H PRN Administration Pain, Moderate (Pain Scale 4-6 Paroxetine HCl 20 mg 04/03/21 09:00 Paroxetine Hcl 20 Mg Tablet PO DAILY [facility] Paroxetine HCl 25 mg 03/31/21 09:00 03/31/21 09:40 Paroxetine Hcl 20 Mg Tablet PO 04/03/21 08:00 25 mg DAILY [facility] Administration Pharmacy Consult 1 each 03/22/21 17:37 Consult Rx Perform Med Rec MISCELLANE ONCE PRN Consult order Polyethylene Glycol 17 gm 03/23/21 18:12 03/24/21 00:08 Polyethylene Glycol 3350 17 Gm Powd.Pack PO 17 gm DAILY PRN Administration Constipation Prednisone 10 mg 04/01/21 09:00 Prednisone 10 Mg Tablet PO 04/07/21 09:01 DAILY [facility] Psyllium Hydrophilic Mucilloid 3.4 gm 03/25/21 09:00 03/31/21 09:53 Psyllium Seed 3.4 Gm Powd.Pack PO Not Given DAILY [facility] Risperidone 1 mg 03/28/21 21:00 03/31/21 09:34 Risperidone 1 Mg Tablet PO 1 mg BID [facility] Administration Topiramate 100 mg 03/22/21 21:00 03/31/21 09:34 Topiramate 100 Mg Tablet PO 100 mg BID [facility] Administration Allergies Allergies Allergy/AdvReac Type Severity Reaction Status Date / Time aspirin [ASA] Allergy Intermediate RASH Verified 11/17/20 15:07 azathioprine [From IMURAN] Allergy Intermediate PANCREATIC Verified 11/17/20 15:07 INFLAMMATION ibuprofen [IBUPROFEN] Allergy Intermediate TOLD NOT Verified 11/17/20 15:07 TO TAKE levofloxacin [From LEVAQUIN] Allergy Mild YEAST Verified 11/17/20 15:07 INFECTIONS Assessment & Plan Assessment & Plan (1) Recurrent major depression-severe: Status: Acute Code(s): F33.2 - Major depressive disorder, recurrent severe without psychotic features Assessment and Plan: 50 yo female, h/o depression, PTSD, several medical problems recently exacerbated, especially Chron's Disease. Pt left M5 precipitously for Stelara infusion appt and was not able to manage sx at home with reported racing thoughts, panic, inability to handle family expectations at home, SI with resulting syncope and new onset UTI. She was on a Prednisone taper from previous admission, now done with this. She is newly positive for THC this admission and we will continue medication changes as follows..... -Pt identifies current issues as poor focus, panic, insomnia, pain. Presents as irritable and intrusive on the unit. She asked for an order to use her cane due to pain. - Risperdal 1 mg bid - Klonopin to 1 mg bid - Remeron 15 mg hs - Tapering of Paxil to decrease to 20 mg daily on 04/01 -Discharge planning-PHP, DBT, Out pt therapy and psychopharmacology. (2) PTSD (post-traumatic stress disorder): Status: Acute Code(s): F43.10 - Post-traumatic stress disorder, unspecified Assessment and Plan: Will encourage coping skills groups while inpatient and will continue referral to PHP and possibly DBT post discharge Assessment and Plan: No changes to the above Greater than 50% of the session was spent on counseling and/or coordination of care Patient educated on: medication risk/benefits Reason for contiued inpatient stay Substantial Risk for: rapid decompensation and med/psych decompensation
[2021-03-31] MEDS: Montelukast Sodium 10 MG TABLET PO (21:50)
[2021-03-31] MEDS: Amitriptyline HCl 25 MG TABLET 50 MG PO (21:50)
[2021-03-31 21:51] VITALS: BP 133/74; PULSE 84
[2021-03-31] MEDS: Doxazosin Mesylate 2 MG TABLET PO (21:51)
[2021-03-31] MEDS: Mirtazapine 15 MG TABLET PO (21:51)
[2021-03-31] MEDS: Acetaminophen 325 MG TABLET 650 MG PO (22:05)
[2021-03-31] MEDS: Magnesium Hydrox/Alum Hydrox 30 ML ORAL.SUSP PO (23:32)
[2021-03-31 23:41] LABS: Amitriptyline, Serum 66 mcg/L; Nortriptyline, Serum 34 mcg/L; Total (Ami+Nor) 100 mcg/L (100-250)
[2021-04-01] MEDS: risperiDONE 1 MG TABLET PO ×2 (09:35→22:59)
[2021-04-01] MEDS: Docusate Sodium 100 MG CAPSULE PO ×2 (09:35→22:59)
[2021-04-01] MEDS: Topiramate 100 MG TABLET PO ×2 (09:35→23:00)
[2021-04-01] MEDS: Lactulose 20 GM/30 ML SOLUTION PO ×2 (09:35→23:01)
[2021-04-01] MEDS: predniSONE 10 MG TABLET PO (09:35)
[2021-04-01] MEDS: PARoxetine HCL 20 MG TABLET 25 MG PO (09:36)
[2021-04-01] MEDS: oxyCODONE HCl Immed Release 5 MG TABLET PO ×3 (09:36→23:00)
[2021-04-01] MEDS: Multivitamin TABLET 1 TAB PO (09:36)
[2021-04-01] MEDS: Divalproex Sodium 250 MG TABLET.DR PO ×2 (09:36→23:00)
[2021-04-01] MEDS: clonazePAM 1 MG TABLET PO ×2 (09:36→22:59)
[2021-04-01] MEDS: Nystatin Oral Susp 500,000 UNIT/5 ML ORAL.SUSP 500000 UNIT PO ×4 (09:36→23:00)
[2021-04-01] MEDS: Calcium Carbonate 750 MG TAB.CHEW PO ×2 (09:36→16:39)
[2021-04-01 09:37] VITALS: BP 122/69; PULSE 86
[2021-04-01] MEDS: amLODIPine Besylate 5 MG TABLET PO (09:37)
[2021-04-01 11:45] VITALS: RESP 16; TEMP 36.2; O2SAT 98
--- NOTE | 2021-04-01 14:17 | P.PNPSI_ITS ---
Subjective Subjective Date of Service: 04/02/21 Reason For Visit: Depression, SI, Lability of mood Subjective Notes: Conditional Voluntary Interim History: Patient seen and discussed with team. Patient evaluated this morning with barrel painter and upon interview she reports she does not want to talk to this science writer today, refused to answer any questions. In the milieu, patient changed her room due to issues with her roommate. Per staff certified nurse midwife, she is attending groups, sleep is on and off. Denies SI/SIB/HI upon inquiry. Presents as irritable but denies assaultive ideation. Says she feels safe. Medication Compliance: Yes Side effects from medications: No Attending Groups: Yes Mental Status Exam Mental Status Exam Narrative: Narrative:?Patient Appearance:?Appropriate Patient Orientation:?Person, Place, Time and Situation Level of Consciousness:?Alert Patient Behavior:?Talkative Mood Description:?Labile Affect Description:?Labile Patient Cognition Impaired:?No Ability to Follow Directions:?Good Speech Pattern:?Spontaneous Speech Memory Description:?Episodic Impaired Hallucinations:?Auditory and Visual Perceptual Disturbances:?Depersonalization Thought Process:?Distracted Thought Content:?positive for [place], positive for Circumstantial, positive for Goal Oriented and positive for Suicidal Ideation (denies) Depressive Symptoms:?Increased Irritability and Low Self Esteem Judgement:?Fair Diagnostics Vital Signs (24Hr): Vital Signs - 24 hr 03/31/21 16:24 03/31/21 21:51 04/01/21 09:37 Temperature 97.7 F Pulse Rate 89 84 86 Respiratory Rate Blood Pressure 114/66 133/74 122/69 Pulse Oximetry 04/01/21 11:45 Temperature 97.1 F Pulse Rate Respiratory Rate 16 Blood Pressure Pulse Oximetry 98 Body Mass Index 35.6 Labs Results: 03/21/21 22:42 03/21/21 22:42 Labs: Laboratory Results - last 48 hr 03/27/21 07:13 Amitriptyline 66 Amitriptyline&Nortrip 100 Nortriptyline 34 Imaging Radiology Impressions: ITS Impressions Cervical Spine CT 03/21/21 23:15 IMPRESSION: No acute intracranial pathology. No cervical spine fracture or malalignment. Head CT 03/21/21 23:15 IMPRESSION: No acute intracranial pathology. No cervical spine fracture or malalignment. Abdomen/Pelvis CT 03/22/21 03:07 IMPRESSION: * Previously seen transverse and left colitis has resolved. 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 * No significant active gastrointestinal inflammation evident on the current exam. Shoulder X-Ray 03/24/21 12:10 IMPRESSION: 1. No evidence of acute left shoulder fracture or dislocation. 2. Included lungs incompletely assessed as discussed above. Consider follow-up chest x-ray for further evaluation. Head CT 03/24/21 12:14 IMPRESSION: No acute intracranial pathology. Mild right sphenoid sinus disease. Medications Medications Current Medications Generic Name Dose Route Start Last Admin Trade Name Freq PRN Reason Stop Dose Admin Acetaminophen 650 mg 03/22/21 20:00 03/31/21 22:05 Acetaminophen 325 Mg Tablet PO 650 mg Q6H PRN Administration Headache/Pain Mild Scale (1-3) Al Hydroxide/Mg Hydroxide 30 ml 03/22/21 20:00 03/31/21 23:32 Magnesium Hydrox/Alum Hydrox 30 Ml Oral.Susp PO 30 ml Q6H PRN Administration Heartburn/Nausea Amitriptyline HCl 50 mg 03/22/21 21:00 03/31/21 21:50 Amitriptyline Hcl 25 Mg Tablet PO 50 mg BEDTIME JUANCHO Administration Amlodipine Besylate 5 mg 03/25/21 09:00 04/01/21 09:37 Amlodipine Besylate 5 Mg Tablet PO 5 mg DAILY JUANCHO Administration Protocol Benzocaine 1 lozenge 03/26/21 12:19 Throat Lozenge, Medicated Lozenge MUCOUS MEM Q2H PRN Sore Throat Calcium Carbonate 750 mg 03/25/21 09:30 04/01/21 09:36 Calcium Carbonate 750 Mg Tab.Chew PO 750 mg BIDPC JUANCHO Administration Clonazepam 1 mg 03/28/21 21:00 04/01/21 09:36 Clonazepam 1 Mg Tablet PO 1 mg BID JUANCHO Administration Diphenhydramine HCl 50 mg 03/23/21 09:58 03/31/21 17:51 Diphenhydramine Hcl 25 Mg Tablet PO 50 mg Q4H PRN Administration agitation Divalproex Sodium 250 mg 03/23/21 21:00 04/01/21 09:36 Divalproex Sodium 250 Mg Tablet.Dr PO 250 mg BID JUANCHO Administration Docusate Sodium 100 mg 03/22/21 21:00 04/01/21 09:35 Docusate Sodium 100 Mg Capsule PO 100 mg BID JUANCHO Administration Doxazosin Mesylate 2 mg 03/22/21 21:00 03/31/21 21:51 Doxazosin Mesylate 2 Mg Tablet PO 2 mg BEDTIME JUANCHO Administration Protocol Ergocalciferol 1,250 mcg 03/28/21 18:00 03/28/21 18:24 Ergocalciferol (Vitamin D2) 1,250 Mcg Capsule PO 1,250 mcg WE JUANCHO Administration Haloperidol 5 mg 03/23/21 09:58 03/31/21 17:51 Haloperidol 5 Mg Tablet PO 5 mg Q4H PRN Administration agitation Hydroxyzine HCl 50 mg 03/22/21 20:13 03/30/21 21:36 Hydroxyzine Hcl 50 Mg Tablet PO 50 mg TID PRN Administration Anxiety Lactulose 20 gm 03/24/21 11:50 04/01/21 09:35 Lactulose 20 Gm/30 Ml Solution PO 20 gm BID JUANCHO Administration Lidocaine 1 patch 03/22/21 19:07 Lidocaine 4 % Patch Adh..Patch TRANSDERMA DAILY PRN Pain Lidocaine HCl 15 ml 03/27/21 15:53 Lidocaine Hcl Viscous 2 % 15 Ml Solution MUCOUS MEM Q3H PRN Pain, Mild (Pain Scale 1-3) Lorazepam 2 mg 03/23/21 09:58 03/31/21 17:51 Lorazepam 1 Mg Tablet PO 2 mg Q4H PRN Administration agitation Magnesium Hydroxide 30 ml 03/22/21 20:00 03/26/21 16:49 Milk Of Magnesia 30 Ml Oral.Susp PO 30 ml DAILY PRN Administration Constipation Methotrexate 25 mg 03/27/21 18:00 03/27/21 22:27 Methotrexate Sodium 2.5 Mg Tablet PO 25 mg TU JUANCHO Administration Mirtazapine 15 mg 03/28/21 21:00 03/31/21 21:51 Mirtazapine 15 Mg Tablet PO 15 mg BEDTIME JUANCHO Administration Montelukast Sodium 10 mg 03/22/21 21:00 03/31/21 21:50 Montelukast Sodium 10 Mg Tablet PO 10 mg BEDTIME JUANCHO Administration Multi-Ingred Medicated Throat [place] 1 spray 03/26/21 12:20 Throat [place], Medicated 20 Ml Bottle MUCOUS MEM Q2H PRN Sore Throat Multivitamins 1 tab 03/23/21 09:00 04/01/21 09:36 B-Complex With Vitamin C Tablet PO 1 tab DAILY JUANCHO Administration Multivitamins/Vitamin C 1 tab 03/22/21 19:00 04/01/21 09:36 Multivitamin Tablet PO 1 tab DAILY JUANCHO Administration Non-Formulary Medication 3 cap 03/22/21 19:00 Budesonide PO QAM COUNTS INCLUDE 234 BEDS AT THE [facility] Nystatin 500,000 unit 03/27/21 17:00 04/01/21 09:36 Nystatin Oral Susp 500,000 Unit/5 Ml Oral.Susp PO 500,000 unit QID COUNTS INCLUDE 234 BEDS AT THE [facility] Administration Protocol Oxycodone HCl 5 mg 03/27/21 21:50 04/01/21 09:36 Oxycodone Hcl Immed Release 5 Mg Tablet PO 5 mg Q4H PRN Administration Pain, Moderate (Pain Scale 4-6 Paroxetine HCl 20 mg 04/03/21 09:00 Paroxetine Hcl 20 Mg Tablet PO DAILY COUNTS INCLUDE 234 BEDS AT THE [facility] Paroxetine HCl 25 mg 03/31/21 09:00 04/01/21 09:36 Paroxetine Hcl 20 Mg Tablet PO 04/03/21 08:00 25 mg DAILY COUNTS INCLUDE 234 BEDS AT THE [facility] Administration Pharmacy Consult 1 each 03/22/21 17:37 Consult Rx Perform Med Rec MISCELLANE ONCE PRN Consult order Polyethylene Glycol 17 gm 03/23/21 18:12 03/24/21 00:08 Polyethylene Glycol 3350 17 Gm Powd.Pack PO 17 gm DAILY PRN Administration Constipation Prednisone 10 mg 04/01/21 09:00 04/01/21 09:35 Prednisone 10 Mg Tablet PO 04/07/21 09:01 10 mg DAILY JUANCHO Administration Psyllium Hydrophilic Mucilloid 3.4 gm 03/25/21 09:00 04/01/21 11:30 Psyllium Seed 3.4 Gm Powd.Pack PO Not Given DAILY COUNTS INCLUDE 234 BEDS AT THE [facility] Risperidone 1 mg 03/28/21 21:00 04/01/21 09:35 Risperidone 1 Mg Tablet PO 1 mg BID COUNTS INCLUDE 234 BEDS AT [facility] Administration Topiramate 100 mg 03/22/21 21:00 04/01/21 09:35 Topiramate 100 Mg Tablet PO 100 mg BID COUNTS INCLUDE 234 BEDS AT THE [facility] Administration Allergies Allergies Allergy/AdvReac Type Severity Reaction Status Date / Time aspirin [ASA] Allergy Intermediate RASH Verified 11/17/20 15:07 azathioprine [From IMURAN] Allergy Intermediate PANCREATIC Verified 11/17/20 15:07 INFLAMMATION ibuprofen [IBUPROFEN] Allergy Intermediate TOLD NOT Verified 11/17/20 15:07 TO TAKE levofloxacin [From LEVAQUIN] Allergy Mild YEAST Verified 11/17/20 15:07 INFECTIONS Assessment & Plan Assessment & Plan (1) Recurrent major depression-severe: Status: Acute Code(s): F33.2 - Major depressive disorder, recurrent severe without psychotic features Assessment and Plan: 50 yo female, h/o depression, PTSD, several medical problems recently exacerbated, especially Chron's Disease. Pt left M5 precipitously for Stelara infusion appt and was not able to manage sx at home with reported racing thoughts, panic, inability to handle family expectations at home, SI with resulting syncope and new onset UTI. She was on a Prednisone taper from previous admission, now done with this. She is newly positive for THC this admission and we will continue medication changes as follows..... -Pt identifies current issues as poor focus, panic, insomnia, pain. Presents as irritable and intrusive on the unit. She asked for an order to use her cane due to pain. Resistant to engage in interview today but does not want med changes. - Risperdal 1 mg bid - Klonopin to 1 mg bid - Remeron 15 mg hs - Tapering of Paxil to decrease to 20 mg daily on 04/01 -Discharge planning-PHP, DBT, Out pt therapy and psychopharmacology. (2) PTSD (post-traumatic stress disorder): Status: Acute Code(s): F43.10 - Post-traumatic stress disorder, unspecified Assessment and Plan: Will encourage coping skills groups while inpatient and will continue referral to PHP and possibly DBT post discharge Assessment and Plan: No changes to the above Greater than 50% of the session was spent on counseling and/or coordination of care Reason for contiued inpatient stay Substantial Risk for: rapid decompensation and med/psych decompensation
[2021-04-01] MEDS: diphenhydrAMINE HCL 25 MG TABLET 50 MG PO (16:53)
[2021-04-01] MEDS: HaloperidoL 5 MG TABLET PO (16:53)
[2021-04-01] MEDS: LORazepam 1 MG TABLET 2 MG PO (16:53)
[2021-04-01 19:50] VITALS: BP 128/71; PULSE 89; TEMP 36.4
[2021-04-01] MEDS: Doxazosin Mesylate 2 MG TABLET PO (22:59)
[2021-04-01] MEDS: Mirtazapine 15 MG TABLET PO (23:00)
[2021-04-01] MEDS: Amitriptyline HCl 25 MG TABLET 50 MG PO (23:00)
[2021-04-01] MEDS: Montelukast Sodium 10 MG TABLET PO (23:00)
[2021-04-02] MEDS: hydrOXYzine HCL 50 MG TABLET PO (03:06)
[2021-04-02] MEDS: oxyCODONE HCl Immed Release 5 MG TABLET PO ×4 (03:11→22:16)
[2021-04-02 06:00] VITALS: BP 142/84; PULSE 79
[2021-04-02] MEDS: predniSONE 10 MG TABLET PO (09:06)
[2021-04-02] MEDS: Calcium Carbonate 750 MG TAB.CHEW PO ×2 (09:06→16:46)
[2021-04-02] MEDS: Multivitamin TABLET 1 TAB PO (09:08)
[2021-04-02] MEDS: Topiramate 100 MG TABLET PO ×2 (09:08→22:16)
[2021-04-02] MEDS: risperiDONE 1 MG TABLET PO ×2 (09:08→22:19)
[2021-04-02] MEDS: amLODIPine Besylate 5 MG TABLET PO (09:08)
[2021-04-02] MEDS: clonazePAM 1 MG TABLET PO ×2 (09:09→22:16)
[2021-04-02] MEDS: Lactulose 20 GM/30 ML SOLUTION PO ×2 (09:09→22:19)
[2021-04-02] MEDS: Nystatin Oral Susp 500,000 UNIT/5 ML ORAL.SUSP 500000 UNIT PO ×4 (09:09→22:19)
[2021-04-02] MEDS: Docusate Sodium 100 MG CAPSULE PO ×2 (09:09→22:17)
[2021-04-02] MEDS: Divalproex Sodium 250 MG TABLET.DR PO (09:09)
[2021-04-02] MEDS: PARoxetine HCL 10 MG TABLET 25 MG PO (09:46)
[2021-04-02] MEDS: LORazepam 1 MG TABLET 2 MG PO (15:25)
[2021-04-02] MEDS: Magnesium Hydrox/Alum Hydrox 30 ML ORAL.SUSP PO (15:29)
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
[2021-04-02 18:00] VITALS: BP 123/73; PULSE 87; TEMP 36.2
[2021-04-02] MEDS: Acetaminophen 325 MG TABLET 650 MG PO (18:49)
[2021-04-02 22:17] VITALS: BP 122/73; PULSE 87
[2021-04-02] MEDS: Amitriptyline HCl 25 MG TABLET 50 MG PO (22:17)
[2021-04-02] MEDS: Montelukast Sodium 10 MG TABLET PO (22:17)
[2021-04-02] MEDS: Doxazosin Mesylate 2 MG TABLET PO (22:17)
[2021-04-02] MEDS: Mirtazapine 15 MG TABLET PO (22:19)
--- NOTE | 2021-04-03 | ECG_ITS ---
Test Reason : CHEST PAIN Blood Pressure : / mmHG Vent. Rate : 090 BPM Atrial Rate : 090 BPM P-R Int : 128 ms QRS Dur : 074 ms QT Int : 348 ms P-R-T Axes : 026 023 014 degrees QTc Int : 425 ms Normal sinus rhythm Normal ECG When compared with ECG of 24-MAR-2021 11:38, No significant change was found Referred By: Christy Carcamo Electronically Signed By:ZHANE SUTTON MD
[2021-04-03] MEDS: Acetaminophen 325 MG TABLET 650 MG PO (01:05)
[2021-04-03] MEDS: Divalproex Sodium 250 MG TABLET.DR PO (11:37)
[2021-04-03] MEDS: Lactulose 20 GM/30 ML SOLUTION PO ×2 (11:43→22:14)
[2021-04-03] MEDS: clonazePAM 1 MG TABLET PO ×2 (11:44→22:13)
[2021-04-03] MEDS: Multivitamin TABLET 1 TAB PO (11:45)
[2021-04-03 11:46] VITALS: BP 141/93; PULSE 90
[2021-04-03] MEDS: amLODIPine Besylate 5 MG TABLET PO (11:46)
[2021-04-03] MEDS: risperiDONE 1 MG TABLET PO ×2 (11:51→22:13)
[2021-04-03] MEDS: Topiramate 100 MG TABLET PO ×2 (11:51→22:13)
[2021-04-03] MEDS: Docusate Sodium 100 MG CAPSULE PO ×2 (11:52→22:13)
[2021-04-03] MEDS: predniSONE 10 MG TABLET PO (11:53)
[2021-04-03] MEDS: Calcium Carbonate 750 MG TAB.CHEW PO ×2 (11:53→16:36)
[2021-04-03] MEDS: PARoxetine HCL 20 MG TABLET PO (11:54)
[2021-04-03 11:58] VITALS: BP 141/93; PULSE 90; RESP 16; TEMP 36.6; O2SAT 100
[2021-04-03] MEDS: oxyCODONE HCl Immed Release 5 MG TABLET PO ×3 (12:00→22:13)
[2021-04-03] MEDS: diphenhydrAMINE HCL 25 MG TABLET 50 MG PO ×2 (16:35→23:57)
[2021-04-03] MEDS: LORazepam 1 MG TABLET 2 MG PO ×2 (16:36→23:56)
[2021-04-03] MEDS: Nystatin Oral Susp 500,000 UNIT/5 ML ORAL.SUSP 500000 UNIT PO ×2 (16:36→22:14)
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
[2021-04-03 18:00] VITALS: BP 120/60; PULSE 99; TEMP 36.7
[2021-04-03] MEDS: metHOTREXate sodium 2.5 MG TABLET 25 MG PO (18:39)
[2021-04-03] MEDS: Montelukast Sodium 10 MG TABLET PO (22:13)
[2021-04-03] MEDS: Mirtazapine 15 MG TABLET PO (22:13)
[2021-04-03] MEDS: Amitriptyline HCl 25 MG TABLET 50 MG PO (22:13)
[2021-04-03] MEDS: Doxazosin Mesylate 2 MG TABLET PO (22:14)
[2021-04-03] MEDS: HaloperidoL 5 MG TABLET PO (23:57)
[2021-04-04] MEDS: oxyCODONE HCl Immed Release 5 MG TABLET PO ×2 (02:07→12:01)
[2021-04-04 11:59] VITALS: BP 123/74; PULSE 84
[2021-04-04] MEDS: PARoxetine HCL 20 MG TABLET PO (11:59)
[2021-04-04] MEDS: amLODIPine Besylate 5 MG TABLET PO (11:59)
[2021-04-04] MEDS: risperiDONE 1 MG TABLET PO (11:59)
[2021-04-04] MEDS: clonazePAM 1 MG TABLET PO (11:59)
[2021-04-04] MEDS: Topiramate 100 MG TABLET PO (11:59)
[2021-04-04] MEDS: Docusate Sodium 100 MG CAPSULE PO (11:59)
[2021-04-04] MEDS: predniSONE 10 MG TABLET PO (11:59)
[2021-04-04] MEDS: Calcium Carbonate 750 MG TAB.CHEW PO (11:59)
[2021-04-04] MEDS: Divalproex Sodium 250 MG TABLET.DR PO (11:59)
[2021-04-04] MEDS: Multivitamin TABLET 1 TAB PO (11:59)
[2021-04-04] MEDS: Lactulose 20 GM/30 ML SOLUTION PO (12:00)
[2021-04-04] MEDS: Nystatin Oral Susp 500,000 UNIT/5 ML ORAL.SUSP 500000 UNIT PO ×2 (12:00→14:29)
[2021-04-04 12:48] LABS: MANUAL DIFF FLAG NO
[2021-04-04 12:54] LABS: Basophils Absolute Auto 0.1 X10*3/uL (0.0-0.2); Basophils Percent Auto 0.4 % (0-2); Eosinophils Absolute Auto 0.1 X10*3/uL (0.0-0.4); Eosinophils Percent Auto 1.1 % (0-4); Hematocrit 42.2 % (37-47); Imm Gran Abs Auto 0.13 X10*3/uL (0.00-0.03); Imm Gran Pct Auto 1.1 % (0.0-0.4); Lymphocytes Absolute Auto 3.3 X10*3/uL (1.2-4.9); Lymphocytes Percent Auto 28.1 % (20-40); Mean Corpuscular HGB Conc 30.8 g/dl (31.0-35.0); Mean Corpuscular Volume 87.7 fL (80-98); Mean Platelet Volume 10.8 fL (9.4-12.3); Monocytes Absolute Auto 1.3 X10*3/uL (0.1-1.2); Monocytes Percent Auto 11.2 % (2-11); Neutrophils Absolute Auto 6.7 X10*3/uL (2.0-8.3); Neutrophils Percent Auto 58.1 % (45-73); Platelet Count 289 X10*3/uL (160-400); Red Blood Count 4.81 X10*6/uL (4.20-5.50); Red Cell Distribution Width 17.1 % (11.0-16.0); White Blood Count 11.6 X10*3/uL (4.8-10.8)
[2021-04-04 13:29] LABS: Alanine Aminotransferase 26 U/L (0-31); Alkaline Phosphatase 98 U/L (39-117); Anion Gap 13 (12-20); Aspartate Amino Transferase 21 U/L (5-31); Bilirubin Total 0.2 mg/dL (0.0-1.0); Blood Urea Nitrogen 12 mg/dL (9-16); Calcium 9.3 mg/dL (8.4-10.2); Carbon Dioxide 28 mmol/L (22-29); Chloride 104 mmol/L (96-108); Creatinine Clr Calc Pharmacy 64.3; Estimated Glomerular Filt Rate 54; Glucose Random 96 mg/dL (60-115); Potassium 4.2 mmol/L (3.3-5.1); Sodium 141 mmol/L (135-145); Total Protein 7.2 g/dL (6.5-8.0)
[2021-04-04] MEDS: Acetaminophen 325 MG TABLET 650 MG PO (13:33)
[2021-04-04 13:42] VITALS: BP 112/77; PULSE 103; TEMP 36.6
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
== END 2021-04-04 16:35 | disposition home or self-care (01) | DRG 751 ==
LOC: HO.ED 03-22 14:55 → HO.PM5 03-22 20:36
PROVIDERS: Student in an Organized Health Care Education/Training Program; Admitting Provider Psychiatry & Neurology Psychiatry; Emergency Provider Student in an Organized Health Care Education/Training Program; Visit Provider Clinical Nurse Specialist Psychiatric/Mental Health, Adult
DX: F33.2 Major depressive disorder, recurrent severe without psychotic features (principal); R45.851 Suicidal ideations; K59.00 Constipation, unspecified; R55 Syncope and collapse; F43.10 Post-traumatic stress disorder, unspecified; N39.0 Urinary tract infection, site not specified; Z20.822 Contact with and (suspected) exposure to COVID-19; Z88.6 Allergy status to analgesic agent; Z79.899 Other long term (current) drug therapy
CPT/HCPCS: 36415; 70450; 72125; 73030; 74177; 80053; 80307; 80335; 81001; 81025; 82077; 82947; 84484; 85025; 87071; 87086; 87147; 87635; 93005; 96372; 97161; 99285; Q0163; Q9967

== ENCOUNTER 2021-04-13 18:39 | Observation (INO) | payer MEDICAID, SELFPAY ==
--- NOTE | ~2021-04-13 | US_ITS ---
EXAMINATION: US VENOUS ULTRASOUND WITH DOPPLER LOWER EXTREMITY, BILATERAL CLINICAL INFORMATION: Pulmonary embolism. COMPARISON: None TECHNIQUE: Ultrasound of the deep veins is performed from the hip to the calf with compression sonography and color and pulse Doppler assessment. Spectral analysis with color-flow imaging is performed. FINDINGS: RIGHT: There is normal venous compression and respiratory variation and augmented flow. The visualized common femoral vein, superficial femoral vein, profunda femoral vein, popliteal vein, and the trifurcation region shows no evidence of deep venous thrombosis. There is no significant popliteal fossa cyst. LEFT: There is normal venous compression and respiratory variation and augmented flow. The visualized common femoral vein, superficial femoral vein, profunda femoral vein, popliteal vein, and the trifurcation region shows no evidence of deep venous thrombosis. There is no significant popliteal fossa cyst. If the patient's symptoms persist, followup ultrasound in 5 days 7 days might be of value to exclude proximal propagation from a non-visualized calf vein. US/US venous duplex LE BI IMPRESSION: No DVT demonstrated in the bilateral lower extremities.
--- NOTE | ~2021-04-13 | CT_ITS ---
EXAMINATION: CT ANGIOGRAM OF THE CHEST WITH AND WITHOUT CONTRAST (CT PULMONARY ANGIOGRAM FOR PE) CT ABDOMEN AND PELVIS WITH CONTRAST CLINICAL INFORMATION: Shortness of breath. Elevated d-dimer. Crohn's pain. Diarrhea. Rule out colitis. Rule out obstruction. COMPARISON: 09/15/[address] 03/22/2021. TECHNIQUE: Prior to contrast administration, noncontrast localization images were obtained. Subsequently, multidetector volumetric imaging was performed from the thoracic inlet to the pubic symphysis following the administration of 85 mL Omnipaque 350 intravenous contrast. This was followed by multidetector acquisition of the abdomen and pelvis. No contrast reaction reported Sagittal, coronal, and MIP oblique sagittal reformatted images were obtained on the CT workstation, uploaded to PACS, and reviewed. This CT examination was performed using dose optimization techniques as appropriate, variously including the following: *Automated exposure control *Adjustment of mA and/or kV according to patient size (this includes techniques or standardized protocols for targeted exams where dose is matched to indication/reason for exam; i.e. extremities or head) *Use of iterative reconstruction technique Total exam dose-length product 1169 mGy-cm FINDINGS: QUALITY OF STUDY/CONTRAST BOLUS: Satisfactory. PULMONARY ARTERIES: Segmental pulmonary emboli are identified. Right lower lobe filling defect on series 11 image 187. Right middle lobe filling defect on image 189. Possible left lower lobe filling defects on image 208, although this is less convincing. There may also be a lingular filling defect on image 181. THORACIC AORTA: No aneurysm or dissection. LUNG: No focal consolidation, nodules or masses. The central airways are patent. PLEURA: No pleural effusion or pneumothorax. MEDIASTINUM: Normal heart size. No pericardial effusion. No hilar or mediastinal lymphadenopathy. No evidence of septal bowing or right heart strain. CHEST WALL/AXILLA: No axillary or internal mammary lymphadenopathy. LIVER, GALLBLADDER, AND BILIARY TREE: The liver is normal in size, shape, and attenuation. No focal hepatic lesion or biliary ductal dilatation is present. The gallbladder is unremarkable with no evidence of radiopaque gallstones, gallbladder wall thickening, or obvious pericholecystic inflammatory changes. PANCREAS: Unremarkable. SPLEEN: Unremarkable. ADRENAL GLANDS: Unremarkable. KIDNEYS AND URETERS: The kidneys are normal in size, shape, and attenuation. No hydronephrosis, hydroureter, or calculi seen. No perinephric stranding. BLADDER: Unremarkable. GASTROINTESTINAL TRACT: The stomach is unremarkable. Normal caliber small bowel. There is no obstruction. Prominent stool in the right hemicolon. There is a distal colonic anastomosis. In the region of the anastomosis there is redemonstration of narrow appearance of the lumen with wall thickening. No adjacent inflammation. This again may represent chronic stricturing. No free air or free fluid. ABDOMINAL WALL: No significant hernia is appreciated. Prior ventral abdominal wall hernia repair. LYMPH NODES: Normal. VASCULAR: Normal caliber aorta with mild atherosclerotic calcification. PELVIC VISCERA: The uterus and adnexa are unremarkable. OSSEOUS STRUCTURES: No acute or suspicious osseous abnormality. Mild degenerative changes throughout the spine. CT/CT angio chest PE protocol IMPRESSION: 1. Segmental pulmonary emboli, at least involving the right lower lobe and right middle lobe. No evidence of elevated right heart pressures. 2. No acute findings in the abdomen or pelvis. Postsurgical changes of the distal colon. 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 This critical result was discussed with KAHLIL Barron by telephone at 04/13/2021 11:08 PM and it was ascertained that the content and urgency of the report was understood at the time of direct communication. VTE: positive
[2021-04-13 19:05] VITALS: BP 109/74; BP 113/75; PULSE 84; RESP 16; TEMP 37.1; O2SAT 99; BMI 31.1
--- NOTE | 2021-04-13 19:36 | ECG_ITS ---
Test Reason : LEG PAIN Blood Pressure : / mmHG Vent. Rate : 073 BPM Atrial Rate : 073 BPM P-R Int : 152 ms QRS Dur : 082 ms QT Int : 390 ms P-R-T Axes : 008 018 028 degrees QTc Int : 429 ms Normal sinus rhythm Normal ECG When compared with ECG of 03-APR-2021 13:01, No significant change was found Referred By: Philip Verduzco Electronically Signed By:DUNCAN GLASS
[2021-04-13] MEDS: 0.9 % Sodium Chloride 1,000 ML 999 ML IVCONT (20:07)
[2021-04-13 20:21] LABS: MANUAL DIFF FLAG NO
[2021-04-13 20:23] LABS: Basophils Percent Auto 0.5 % (0-2); Eosinophils Absolute Auto 0.1 X10*3/uL (0.0-0.4); Eosinophils Percent Auto 1.5 % (0-4); Hematocrit 32.4 % (37-47); Hemoglobin 10.3 g/dl (12.0-16.0); Imm Gran Abs Auto 0.01 X10*3/uL (0.00-0.03); Imm Gran Pct Auto 0.2 % (0.0-0.4); Lymphocytes Absolute Auto 1.5 X10*3/uL (1.2-4.9); Mean Corpuscular HGB Conc 31.8 g/dl (31.0-35.0); Mean Corpuscular Hemoglobin 27.5 pg (27.0-33.0); Mean Corpuscular Volume 86.6 fL (80-98); Mean Platelet Volume 10.4 fL (9.4-12.3); Monocytes Absolute Auto 0.4 X10*3/uL (0.1-1.2); Monocytes Percent Auto 5.9 % (2-11); Neutrophils Absolute Auto 4.5 X10*3/uL (2.0-8.3); Neutrophils Percent Auto 68.9 % (45-73); Platelet Count 245 X10*3/uL (160-400); Red Blood Count 3.74 X10*6/uL (4.20-5.50); Red Cell Distribution Width 17.4 % (11.0-16.0); White Blood Count 6.5 X10*3/uL (4.8-10.8)
[2021-04-13 20:46] LABS: D Dimer 2989 NG/ML
[2021-04-13 20:47] LABS: Alanine Aminotransferase 23 U/L (0-31); Albumin Level 3.8 g/dL (3.5-5.0); Alkaline Phosphatase 81 U/L (39-117); Anion Gap 13 (12-20); Aspartate Amino Transferase 21 U/L (5-31); Bilirubin Direct < 0.2 mg/dL (0.0-0.5); Bilirubin Total 0.2 mg/dL (0.0-1.0); Blood Urea Nitrogen 14 mg/dL (9-16); Calcium 8.6 mg/dL (8.4-10.2); Carbon Dioxide 21 mmol/L (22-29); Chloride 111 mmol/L (96-108); Estimated Glomerular Filt Rate > 60; Glucose Random 83 mg/dL (60-115); Lipase 25 U/L (8-78); Potassium 4.1 mmol/L (3.3-5.1); Sodium 141 mmol/L (135-145); Total Protein 6.5 g/dL (6.5-8.0)
[2021-04-13 20:52] LABS: Troponin-I High Sensitivity < 3.5 ng/L (<3.5-17.0)
[2021-04-13] MEDS: Morphine Sulfate 4 MG/ML CARTRIDGE IVPUSH (20:56)
[2021-04-13 20:57] VITALS: BP 133/68; PULSE 81; RESP 20; TEMP 36.1; O2SAT 99
[2021-04-13 22:14] VITALS: BP 124/78; PULSE 79; RESP 18; TEMP 36.4; O2SAT 100
[2021-04-13 22:51] LABS: Glucose Urine UA NEG (NEG); Leukocyte Esterase Urine NEG (NEG); Nitrite Urine NEG (NEG); Urine Blood NEG (NEG); Urine Ketones NEG (NEG); Urine Protein NEG (NEG-TRACE)
[2021-04-13 22:52] LABS: Appearance Urine CLEAR; Color Urine YELLOW
[2021-04-13] MEDS: iohexoL 350 MG/ML 100 ML INFUS..BTL IV (22:53)
[2021-04-13 22:56] LABS: UPreg QC Valid YES; Urine Pregnancy NEGATIVE (NEGATIVE)
[2021-04-14] VITALS (8 sets, daily range): BP systolic 93–140; BP diastolic 59–87; PULSE 72–85; RESP 12–20; TEMP 36.1–36.9; O2SAT 94–99
[2021-04-14] MEDS: Morphine Sulfate 4 MG/ML CARTRIDGE IVPUSH (00:01)
--- NOTE | 2021-04-14 00:12 | ED_ITS ---
HPI - General Adult General Chief complaint: Extremity Problem Stated complaint: leg pain Time Seen by Provider: 04/13/21 19:16 History of Present Illness HPI narrative: Patient with 2 complaints, 1st complaint is abdominal pain bloating, diarrhea sometimes with blood in it similar to the prior flares of Crohn's disease, no nausea or vomiting, no fever, pain comes in waves and is intermittent, at this point it is moderate, there is no burning with urination no flank pain Second complaint is feeling some chest pain and shortness of breath as well, no fainting or feeling faint no passing out no cough no fever Related Data Home Medications Medication Instructions Recorded Confirmed amitriptyline 25 mg tablet 2 tab PO BEDTIME 03/22/21 03/22/21 amlodipine 10 mg tablet 1 tab PO QAM 03/22/21 03/22/21 budesonide 3 mg 3 cap PO QAM 03/22/21 03/22/21 capsule,delayed,extended release calcium carbonate 300 mg (750 mg) 300 mg PO BIDPC 03/22/21 03/22/21 chewable tablet (Tums E-X) clonazepam 1 mg tablet 1 tab PO BID 03/22/21 03/22/21 docusate sodium 100 mg capsule 1 cap PO BID 03/22/21 03/22/21 doxazosin 2 mg tablet 1 tab PO BEDTIME 03/22/21 03/22/21 ergocalciferol (vitamin D2) 1,250 1 cap PO WE 03/22/21 03/22/21 mcg (50,000 unit) capsule lidocaine 5 % topical patch 1 patch TOPICAL NEEDED PRN 03/22/21 03/22/21 methotrexate sodium 2.5 mg tablet 10 tab PO TU 03/22/21 03/22/21 montelukast 10 mg tablet 1 tab PO BEDTIME 03/22/21 03/22/21 multivitamin 1 tab PO QAM 03/22/21 03/22/21 oxycodone 5 mg tablet 1 tab PO Q4H PRN 03/22/21 03/22/21 topiramate 100 mg tablet 1 tab PO BID 03/22/21 03/22/21 ustekinumab 90 mg/mL subcutaneous 1 syringe SUBCUT Q28D 03/22/21 03/22/21 syringe (Luis) vitamin B complex-folic acid 0.4 1 tab PO QAM 03/22/21 03/22/21 mg tablet (B Complex 1 (with folic acid)) Previous Rx's Medication Instructions Recorded divalproex 250 mg tablet,delayed 250 mg PO DAILY #2 tab 04/04/21 release lactulose 20 gram/30 mL oral 20 g PO BID #1200 ml 04/04/21 solution mirtazapine 15 mg tablet 1 tab PO BEDTIME #30 tab 04/04/21 mirtazapine 15 mg tablet 15 mg PO BEDTIME #30 tab 04/04/21 nystatin 100,000 unit/mL oral 500,000 unit PO QID #20 ml 04/04/21 suspension paroxetine HCl 20 mg tablet 20 mg PO DAILY #30 tab 04/04/21 polyethylene glycol 3350 17 gram 17 g PO DAILY PRN #30 ea 04/04/21 oral powder packet prednisone 10 mg tablet 10 mg PO DAILY #3 tab 04/04/21 risperidone 1 mg tablet 1 mg PO BID #60 tab 04/04/21 Allergies Allergy/AdvReac Type Severity Reaction Status Date / Time aspirin [ASA] Allergy Intermediate RASH Verified 11/17/20 15:07 azathioprine [From IMURAN] Allergy Intermediate PANCREATIC Verified 11/17/20 15:07 INFLAMMATION ibuprofen [IBUPROFEN] Allergy Intermediate TOLD NOT Verified 11/17/20 15:07 TO TAKE levofloxacin [From LEVAQUIN] Allergy Mild YEAST Verified 11/17/20 15:07 INFECTIONS Review of Systems Review of Systems: Positive for abdominal pain, diarrhea, chest pain, shortness of breath Negatives are no fever no chills no dizziness no weakness no fainting no feeling faint no headache no neck pain no numbness weakness or tingling no palpitations no vomiting no dysuria no frequency no incontinence no back pain no skin rash no calf pain or swelling no edema Yes all other systems are reviewed and are negative PMFSH Past Medical History Source: nursing notes reviewed Medical History (Updated 04/14/21 @ 00:23 by KAHLIL Barron) Cancer Crohn's colitis Depression Hemorrhagic cyst of ovary HTN (hypertension) Hyperlipidemia Iron deficiency anemia Kidney stones Migraine PTSD (post-traumatic stress disorder) Recurrent major depression-severe Rheumatoid arthritis Surgical History Hx of colonoscopy (~12/2019) Hx of colonoscopy (~10/2018) Hx of endoscopy Social History Social History Household Members: None Housing: Apartment Do you presently have visiting nurse or other home services: No Alcohol intake: never Patient Tobacco Use Status: Never used Tobacco Second Hand Smoke Exposure: No Substance Use Type: Marijuana Advance Directives: No Advance Directives Information Provided: Yes Patient : No service: No Current occupational status: disabled Sexual orientation: Straight/Heterosexual Physical Exam Vital Signs: Vital Signs: Last Vital Signs Temp 97.6 F 04/13/21 22:14 Pulse 79 04/13/21 22:14 Resp 18 04/13/21 22:14 BP 124/78 04/13/21 22:14 Pulse Ox 100 04/13/21 22:14 Body Mass Index 31.1 General appearance is no acute distress The pupils equal round reactive slight Extraocular motions intact The pharynx is clear and well hydrated The neck is supple Respiratory no distress Lungs are clear to auscultation bilateral Heart no murmur The abdomen had diffuse mild tenderness without rebound or guarding The back had no CVA tenderness The extremities were full range of motion x4, there was no calf tenderness or swelling, no pedal edema Skin no rash Neuro no focal deficits Course Course Course Narrative: Patient remained stable and her pain was controlled with 2 doses of morphine Call from radiology informed us that the patient did have pulmonary emboli, case was discussed with attending physician charito & plan was to start heparin as there was a concern that the patient who has Crohn's with bloody diarrhea would be safest with heparin at this time The patient's hemoglobin and hematocrit 10.2/33 today, and was 13.0/42.2 10 days ago, she denies any active bleeding now Case was discussed with hospitalist and patient was admitted to the hospital for pulmonary embolus and Crohn's flare Medical Decision Making MDM Narrative Medical decision making narrative: EKG was normal sinus rhythm with a rate of 73, no acute ST changes no acute ischemic changes, intervals were normal Lab Data Lab results reviewed: Yes I reviewed the patient's lab results. Result diagrams: 04/13/21 20:07 04/13/21 20:07 Labs: Lab Results 04/13/21 04/13/21 04/13/21 Range/Units 20:07 20:07 20:07 WBC 6.5 (4.8-10.8) X10*3/uL RBC 3.74 L D (4.20-5.50) X10*6/uL Hgb 10.3 L D (12.0-16.0) g/dl Hct 32.4 L D (37-47) % MCV 86.6 (80-98) fL MCH 27.5 (27.0-33.0) pg MCHC 31.8 (31.0-35.0) g/dl RDW 17.4 H (11.0-16.0) % Plt Count 245 (160-400) X10*3/uL MPV 10.4 (9.4-12.3) fL Immature Gran % (Auto) 0.2 (0.0-0.4) % Neut % (Auto) 68.9 (45-73) % Lymph % (Auto) 23.0 (20-40) % [place] % (Auto) 5.9 (2-11) % Eos % (Auto) 1.5 (0-4) % Baso % (Auto) 0.5 (0-2) % Lymph # (Auto) 1.5 (1.2-4.9) X10*3/uL [place] # (Auto) 0.4 (0.1-1.2) X10*3/uL Eos # (Auto) 0.1 (0.0-0.4) X10*3/uL Baso # (Auto) 0.0 (0.0-0.2) X10*3/uL Abs Immat Gran (auto) 0.01 (0.00-0.03) X10*3/uL Absolute Neuts (auto) 4.5 (2.0-8.3) X10*3/uL Absolute Nucleated RBC 0.000 (0.0-0.012) X10*3/uL Nucleated RBC % (auto) 0.0 (0.0-0.2) /100WBC D-Dimer NG/ML Sodium 141 (135-145) mmol/L Potassium 4.1 (3.3-5.1) mmol/L Chloride 111 H (96-108) mmol/L Carbon Dioxide 21 L (22-29) mmol/L Anion Gap 13 (12-20) BUN 14 (9-16) mg/dL Creatinine 0.77 (0.5-1.4) mg/dL Estim Creat Clear Calc 84.0 Estimated GFR > 60 Random Glucose 83 (60-115) mg/dL Calcium 8.6 D (8.4-10.2) mg/dL Total Bilirubin 0.2 (0.0-1.0) mg/dL Direct Bilirubin < 0.2 (0.0-0.5) mg/dL AST 21 (5-31) U/L ALT 23 (0-31) U/L Alkaline Phosphatase 81 (39-117) U/L Troponin I High Sens < 3.5 (<3.5-17.0) ng/L Total Protein 6.5 (6.5-8.0) g/dL Albumin 3.8 (3.5-5.0) g/dL Lipase 25 (8-78) U/L Urine Color Urine Appearance Urine pH (5.0-8.0) Ur Specific [place] (1.005-1.025) Urine Protein (NEG-TRACE) MG/DL Urine Glucose (UA) (NEG) MG/DL Urine Ketones (NEG) MG/DL Urine Blood (NEG) Urine Nitrite (NEG) Ur Leukocyte Esterase (NEG) Urine Test (NEGATIVE) 04/13/21 04/13/21 04/13/21 Range/Units 20:07 22:36 22:36 WBC (4.8-10.8) X10*3/uL RBC (4.20-5.50) X10*6/uL Hgb (12.0-16.0) g/dl Hct (37-47) % MCV (80-98) fL MCH (27.0-33.0) pg MCHC (31.0-35.0) g/dl RDW (11.0-16.0) % Plt Count (160-400) X10*3/uL MPV (9.4-12.3) fL Immature Gran % (Auto) (0.0-0.4) % Neut % (Auto) (45-73) % Lymph % (Auto) (20-40) % [place] % (Auto) (2-11) % Eos % (Auto) (0-4) % Baso % (Auto) (0-2) % Lymph # (Auto) (1.2-4.9) X10*3/uL [place] # (Auto) (0.1-1.2) X10*3/uL Eos # (Auto) (0.0-0.4) X10*3/uL Baso # (Auto) (0.0-0.2) X10*3/uL Abs Immat Gran (auto) (0.00-0.03) X10*3/uL Absolute Neuts (auto) (2.0-8.3) X10*3/uL Absolute Nucleated RBC (0.0-0.012) X10*3/uL Nucleated RBC % (auto) (0.0-0.2) /100WBC D-Dimer 2989 NG/ML Sodium (135-145) mmol/L Potassium (3.3-5.1) mmol/L Chloride (96-108) mmol/L Carbon Dioxide (22-29) mmol/L Anion Gap (12-20) BUN (9-16) mg/dL Creatinine (0.5-1.4) mg/dL Estim Creat Clear Calc Estimated GFR Random Glucose (60-115) mg/dL Calcium (8.4-10.2) mg/dL Total Bilirubin (0.0-1.0) mg/dL Direct Bilirubin (0.0-0.5) mg/dL AST (5-31) U/L ALT (0-31) U/L Alkaline Phosphatase (39-117) U/L Troponin I High Sens (<3.5-17.0) ng/L Total Protein (6.5-8.0) g/dL Albumin (3.5-5.0) g/dL Lipase (8-78) U/L Urine Color YELLOW Urine Appearance CLEAR Urine pH 7.0 (5.0-8.0) Ur Specific [place] 1.010 (1.005-1.025) Urine Protein NEG (NEG-TRACE) MG/DL Urine Glucose (UA) NEG (NEG) MG/DL Urine Ketones NEG (NEG) MG/DL Urine Blood NEG (NEG) Urine Nitrite NEG (NEG) Ur Leukocyte Esterase NEG (NEG) Urine Test NEGATIVE (NEGATIVE) Discharge Plan Discharge Clinical Impression: Pulmonary emboli, Crohn's disease Prescriptions: No Action multivitamin Tablet 1 tab PO QAM RF: 0 clonazepam 1 mg tablet 1 tab PO BID RF: 0 amitriptyline 25 mg tablet 2 tab PO BEDTIME RF: 0 methotrexate sodium 2.5 mg tablet 10 tab PO TU RF: 0 amlodipine 10 mg tablet 1 tab PO QAM RF: 0 lidocaine 5 % adhesive patch,medicated 1 patch topical NEEDED PRN (Reason: Pain) RF: 0 docusate sodium 100 mg capsule 1 cap PO BID RF: 0 montelukast 10 mg tablet 1 tab PO BEDTIME RF: 0 ergocalciferol (vitamin D2) 1,250 mcg (50,000 unit) capsule 1 cap PO WE RF: 0 budesonide 3 mg capsule,delayed,extend.release 3 cap PO QAM RF: 0 topiramate 100 mg tablet 1 tab PO BID RF: 0 oxycodone 5 mg tablet 1 tab PO Q4H PRN (Reason: pain) RF: 0 vitamin B complex-folic acid [B Complex 1 (with folic acid)] 0.4 mg tablet 1 tab PO QAM RF: 0 Stelara 90 mg/mL syringe 1 syringe subcut Q28D RF: 0 doxazosin 2 mg tablet 1 tab PO BEDTIME RF: 0 calcium carbonate [Tums E-X] 300 mg (750 mg) Tablet,Chewable 300 mg PO BIDPC RF: 0 nystatin 100,000 unit/mL Suspension 500,000 unit PO QID Qty: 20 RF: 0 divalproex 250 mg Tablet,Delayed Release (Dr/Ec) 250 mg PO DAILY Qty: 2 RF: 0 paroxetine HCl 20 mg Tablet 20 mg PO DAILY Qty: 30 RF: 0 mirtazapine 15 mg Tablet 15 mg PO BEDTIME Qty: 30 RF: 0 risperidone 1 mg Tablet 1 mg PO BID Qty: 60 RF: 0 lactulose 20 gram/30 mL Solution 20 g PO BID Qty: 1200 RF: 0 prednisone 10 mg Tablet 10 mg PO DAILY Qty: 3 RF: 0 polyethylene glycol 3350 17 gram Powder In Packet 17 g PO DAILY PRN (Reason: Constipation) Qty: 30 RF: 0 mirtazapine 15 mg tablet 1 tab PO BEDTIME Qty: 30 RF: 0
[2021-04-14 00:41] LABS: PTT Heparin Drip 35.1 SEC (53-77.9)
[2021-04-14] MEDS: Heparin Sodium,Porcine/1/2NS 25,000 UNIT/250 ML IV.SOLN 10.8 UNIT IVCONT (00:41)
[2021-04-14] MEDS: Heparin Sodium,Porcine 5,000 UNIT/ML VIAL 6200 UNIT IVPUSH (00:42)
[2021-04-14 01:16] LABS: COVID-19 Test Negative (Negative)
--- NOTE | 2021-04-14 02:48 | PM.IMHP ---
History of Present Illness Date of Service: 04/14/21 Chief Complaint: Chest pain, left ankle swelling 50-year-old female with history of Crohn's colitis, depression, hypertension, hyperlipidemia, migraine, PTSD, rheumatoid arthritis, who presented today with 4 days of left ankle pain and some chest pain. History from the patient and from ED notes. Patient endorses that she has been having 4 days of left lower extremity ankle pain and swelling and erythema. She also had some chest pain. Therefore, she came to the ED. Otherwise, she does endorse chronic sinus discomfort, fatigue, and chronic pain secondary to Crohn's disease. She denies fever, chills, nausea or vomiting. In ED, vitals were unremarkable, she was not tachycardic or febrile. CBC and BMP were unremarkable. D-dimer was elevated at 2989. LFTs are unremarkable. Urinalysis was unremarkable. CT a of the chest revealed acute pulmonary emboli in the right lower lobe and right middle lobe (please see official report for full details). CT of the abdomen was negative for acute findings. The patient was started on heparin drip. She is being admitted for acute pulmonary emboli. Review of Systems Constitutional: Constitutional: Denies chills, Denies fatigue, Denies fever(s), Denies headache(s), Denies weakness and Denies weight loss Eyes: Eyes: Denies blurry vision, Denies change in vision, Denies diplopia and Denies loss of vision ENT: Denies dysphagia, Denies vertigo, Denies dizziness, Denies headache(s), Denies hearing loss, Denies lip swelling and Denies sore throat Cardiovascular: Cardiovascular: Reports chest pain, Denies leg edema, Denies lightheadedness, Denies palpitations and Denies dyspnea Respiratory: Respiratory: Denies no additional respiratory complaints, Denies cough, Denies dyspnea and Denies wheezing Gastrointestinal: Gastrointestinal: Denies coffee ground emesis, Denies constipation, Denies dysphagia, Denies diarrhea, Denies nausea and Denies vomiting Genitourinary: Genitourinary: Denies dysuria Musculoskeletal: Musculoskeletal: Reports arthralgias, Reports joint swelling (Left ankle swelling and pain), Denies muscle weakness, Denies numbness and Denies tingling Integumentary/Breasts: Skin/Breast: Denies bleeding lesions, Denies new lesions and Denies rash Neurologic: Denies vertigo, Denies dizziness, Denies headache(s), Denies loss of vision, Denies numbness, Denies tingling and Denies weakness Psychiatric: Psychiatric: Denies anxiety and Denies depression Endocrine: Endocrine: Denies cold intolerance, Denies fatigue, Denies heat intolerance and Denies palpitations Hematologic/Lymphatic: Hematologic/Lymphatic: Denies easy bleeding, Denies easy bruising and Denies lymphadenopathy Allergic/Immunologic: Allergic/Immunologic: Denies lip swelling and Denies wheezing [facility] Medical History Cancer Crohn's colitis Depression Hemorrhagic cyst of ovary HTN (hypertension) Hyperlipidemia Iron deficiency anemia Kidney stones Migraine PTSD (post-traumatic stress disorder) Recurrent major depression-severe Rheumatoid arthritis Pertinent family history: Mother and father both with history of hypertension Surgical History Hx of colonoscopy (~12/2019) Hx of colonoscopy (~10/2018) Hx of endoscopy Social History Household Members: None Housing: Apartment Do you presently have visiting nurse or other home services: No Alcohol intake: never Patient Tobacco Use Status: Never used Tobacco Second Hand Smoke Exposure: No Substance Use Type: Marijuana Advance Directives: No Advance Directives Information Provided: Yes Patient : No service: No Current occupational status: disabled Sexual orientation: Straight/Heterosexual Meds Allergies Allergy/AdvReac Type Severity Reaction Status Date / Time aspirin [ASA] Allergy Intermediate RASH Verified 11/17/20 15:07 azathioprine [From IMURAN] Allergy Intermediate PANCREATIC Verified 11/17/20 15:07 INFLAMMATION ibuprofen [IBUPROFEN] Allergy Intermediate TOLD NOT Verified 11/17/20 15:07 TO TAKE levofloxacin [From LEVAQUIN] Allergy Mild YEAST Verified 11/17/20 15:07 INFECTIONS Active Medications: Current Medications Generic Name Dose Route Start Last Admin Trade Name Freq PRN Reason Stop Dose Admin Acetaminophen 650 mg 04/14/21 02:41 Acetaminophen 325 Mg Tablet PO Q6H PRN Pain, Mild (Pain Scale 1-3) Amitriptyline HCl 50 mg 04/14/21 21:00 Amitriptyline Hcl 25 Mg Tablet PO BEDTIME JUANCHO Amlodipine Besylate 10 mg 04/14/21 02:45 Amlodipine Besylate 10 Mg Tablet PO QAM [facility] Protocol Calcium Carbonate 300 mg 04/14/21 08:30 Calcium Carbonate 750 Mg Tab.Chew PO BIDPC [facility] Clonazepam 1 mg 04/14/21 09:00 Clonazepam 1 Mg Tablet PO BID [facility] Divalproex Sodium 250 mg 04/14/21 09:00 Divalproex Sodium 250 Mg Tablet.Dr PO DAILY [facility] Docusate Sodium 100 mg 04/14/21 09:00 Docusate Sodium 100 Mg Capsule PO BID [facility] Doxazosin Mesylate 2 mg 04/14/21 21:00 Doxazosin Mesylate 2 Mg Tablet PO BEDTIME [facility] Protocol Ergocalciferol mcg 04/18/21 02:43 Ergocalciferol (Vitamin D2) 1,250 Mcg Capsule PO [facility] Heparin Sodium (Porcine) 3,100 unit 04/13/21 23:50 Heparin Sodium,Porcine 5,000 Unit/Ml Vial 40 unit/kg (3100 unit) IVPUSH PROTOCOL BOLUS PRN 40 unit/kg - Heparin Protocol Protocol Heparin Sodium (Porcine) 6,200 unit 04/13/21 23:50 Heparin Sodium,Porcine 5,000 Unit/Ml Vial 80 unit/kg (6200 unit) IVPUSH PROTOCOL BOLUS PRN 80 unit/kg - Heparin Protocol Protocol Heparin Sodium/Sodium Chloride 25,000 unit in 250 mls @ 0 mls/hr 04/13/21 23:45 04/14/21 00:41 IVCONT 14 units/kg/hr .Q0M [facility] 10.8 mls/hr Administration Protocol Per Protocol Lactulose 20 gm 04/14/21 09:00 Lactulose 20 Gm/30 Ml Solution PO BID [facility] Methotrexate 25 mg 04/17/21 02:43 Methotrexate Sodium 2.5 Mg Tablet PO TU [facility] Mirtazapine 15 mg 04/14/21 21:00 Mirtazapine 15 Mg Tablet PO BEDTIME [facility] Montelukast Sodium 10 mg 04/14/21 21:00 Montelukast Sodium 10 Mg Tablet PO BEDTIME [facility] Multivitamins/Vitamin C 1 tab 04/14/21 02:45 Multivitamin Tablet PO QAM [facility] Non-Formulary Medication 3 cap 04/14/21 02:45 Budesonide PO QAM [facility] Oxycodone HCl 5 mg 04/14/21 02:43 Oxycodone Hcl Immed Release 5 Mg Tablet PO Q4H PRN pain Pantoprazole Sodium 40 mg 04/14/21 06:30 Pantoprazole Sodium 40 Mg/10 Ml Vial IVPUSH BID@5939,9310 [facility] Paroxetine HCl 20 mg 04/14/21 09:00 Paroxetine Hcl 20 Mg Tablet PO DAILY [facility] Polyethylene Glycol 17 gm 04/14/21 02:43 Polyethylene Glycol 3350 17 Gm Powd.Pack PO DAILY PRN Constipation Risperidone 1 mg 04/14/21 09:00 Risperidone 1 Mg Tablet PO BID [facility] Sodium Chloride 3 ml 04/14/21 08:00 0.9 % Sodium Chloride Flush 3 Ml Syringe IVFLUSH QSHIFT [facility] Topiramate 100 mg 04/14/21 09:00 Topiramate 100 Mg Tablet PO BID [facility] Home Medications Medication Instructions Recorded Confirmed Last Taken Type amitriptyline 25 mg tablet 2 tab PO BEDTIME 03/22/21 04/14/21 03/21/21 History amlodipine 10 mg tablet 1 tab PO QAM 03/22/21 04/14/21 03/21/21 History budesonide 3 mg 3 cap PO QAM 03/22/21 04/14/21 03/21/21 History capsule,delayed,extended release calcium carbonate 300 mg (750 mg) 300 mg PO BIDPC 03/22/21 04/14/21 03/21/21 History chewable tablet (Tums E-X) clonazepam 1 mg tablet 1 tab PO BID 03/22/21 04/14/21 03/21/21 History docusate sodium 100 mg capsule 1 cap PO BID 03/22/21 04/14/21 Unknown History doxazosin 2 mg tablet 1 tab PO BEDTIME 03/22/21 04/14/21 03/21/21 History ergocalciferol (vitamin D2) 1,250 1 cap PO WE 03/22/21 04/14/21 03/21/21 History mcg (50,000 unit) capsule lidocaine 5 % topical patch 1 patch TOPICAL NEEDED PRN 03/22/21 04/14/21 Unknown History methotrexate sodium 2.5 mg tablet 10 tab PO TU 03/22/21 04/14/21 03/20/21 History montelukast 10 mg tablet 1 tab PO BEDTIME 03/22/21 04/14/21 Unknown History multivitamin 1 tab PO QAM 03/22/21 04/14/21 Unknown History oxycodone 5 mg tablet 1 tab PO Q4H PRN 03/22/21 04/14/21 Unknown History topiramate 100 mg tablet 1 tab PO BID 03/22/21 04/14/21 03/21/21 History ustekinumab 90 mg/mL subcutaneous 1 syringe SUBCUT Q28D 03/22/21 04/14/21 03/21/21 History syringe (Stelara) vitamin B complex-folic acid 0.4 1 tab PO QAM 03/22/21 04/14/21 Unknown History mg tablet (B Complex 1 (with folic acid)) Physical Exam Vital Signs and Narrative: Vital Signs: Last Vital Signs Temp 97.6 F 04/13/21 22:14 Pulse 74 04/14/21 02:17 Resp 20 04/14/21 02:17 BP 140/87 H 04/14/21 02:17 Pulse Ox 99 04/14/21 02:17 Body Mass Index 31.1 Const: General: no acute distress, well developed and alert HENMT: Face and sinus: Yes normal facial exam and Yes face symmetric Mouth: Normal oral and palatal mucosa present and moist mucous membranes Throat: Yes posterior oropharynx normal and Yes tonsils normal Eyes: General: appearance normal, both eyes and all related structures Alignment and Position: alignment normal and position normal Sclerae: sclerae normal Pupils: Equal, round and reactive pupils present EOM: EOMs intact bilaterally Neck: Yes normal visual inspection, Yes full ROM and Yes no lymphadenopathy Lymphatic: no lymphadenopathy noted Resp: Effort & Inspection: normal respiratory effort and able to speak in complete sentences Auscultation: clear to auscultation bilaterally, no crackles, no rales, no rhonchi and no wheezes Cardio: Rate: regular rate Rhythm: regular rhythm Heart sounds: S1 normal heart sound present, S2 normal heart sound present, no murmurs and no rubs GI: Inspection: No distended Palpation (GI): Soft to palpation and nontender Percussion: No tympanic to percussion Auscultation: normal bowel sounds Skin: Rashes: no rashes Trauma: no lacerations or abrasions Wounds: no wounds Neuro: Cranial nerves: Yes CN's II-XII intact bilaterally, Yes Equal, round and reactive pupils present and Yes Bilaterally intact EOM present Extrem: Other: Left ankle swelling and tenderness to palpation, with some erythema General: Yes full ROM and Yes no pedal edema Psych: Appearance: grossly normal Mental Status: mental status grossly normal Speech and movement: Normal speech and movement present Affect: normal affect Thought process: Normal thought process present Results Labs CBC and Chem 7: 04/13/21 20:07 04/13/21 20:07 Labs: Laboratory Results - last 24 hr 04/13/21 04/13/21 04/13/21 20:07 20:07 20:07 MCV 86.6 MCH 27.5 MCHC 31.8 RDW 17.4 H Plt Count 245 MPV 10.4 Immature Gran % (Auto) 0.2 Neut % (Auto) 68.9 Lymph % (Auto) 23.0 Leake % (Auto) 5.9 Eos % (Auto) 1.5 Baso % (Auto) 0.5 Lymph # (Auto) 1.5 Leake # (Auto) 0.4 Eos # (Auto) 0.1 Baso # (Auto) 0.0 Abs Immat Gran (auto) 0.01 Absolute Neuts (auto) 4.5 Absolute Nucleated RBC 0.000 Nucleated RBC % (auto) 0.0 PT INR APTT PTT (Heparin Protocol) D-Dimer Anion Gap 13 Estim Creat Clear Calc 84.0 Estimated GFR > 60 Random Glucose 83 Calcium 8.6 D Total Bilirubin 0.2 Direct Bilirubin < 0.2 AST 21 ALT 23 Alkaline Phosphatase 81 Troponin I High Sens < 3.5 Total Protein 6.5 Albumin 3.8 Lipase 25 Urine Color Urine Appearance Urine pH Ur Specific [place] Urine Protein Urine Glucose (UA) Urine Ketones Urine Blood Urine Nitrite Ur Leukocyte Esterase Urine Test COVID-19 (SHAAN) COVID-19 Clin Com 04/13/21 04/13/21 04/13/21 20:07 22:36 22:36 MCV MCH MCHC RDW Plt Count MPV Immature Gran % (Auto) Neut % (Auto) Lymph % (Auto) Leake % (Auto) Eos % (Auto) Baso % (Auto) Lymph # (Auto) [place] # (Auto) Eos # (Auto) Baso # (Auto) Abs Immat Gran (auto) Absolute Neuts (auto) Absolute Nucleated RBC Nucleated RBC % (auto) PT 11.0 INR 1.0 APTT Cancelled PTT (Heparin Protocol) 35.1 L D-Dimer 2989 Anion Gap Estim Creat Clear Calc Estimated GFR Random Glucose Calcium Total Bilirubin Direct Bilirubin AST ALT Alkaline Phosphatase Troponin I High Sens Total Protein Albumin Lipase Urine Color YELLOW Urine Appearance CLEAR Urine pH 7.0 Ur Specific [place] 1.010 Urine Protein NEG Urine Glucose (UA) NEG Urine Ketones NEG Urine Blood NEG Urine Nitrite NEG Ur Leukocyte Esterase NEG Urine Test NEGATIVE COVID-19 (SHAAN) COVID-19 Clin Com 04/14/21 00:33 MCV MCH MCHC RDW Plt Count MPV Immature Gran % (Auto) Neut % (Auto) Lymph % (Auto) [place] % (Auto) Eos % (Auto) Baso % (Auto) Lymph # (Auto) [place] # (Auto) Eos # (Auto) Baso # (Auto) Abs Immat Gran (auto) Absolute Neuts (auto) Absolute Nucleated RBC Nucleated RBC % (auto) PT INR APTT PTT (Heparin Protocol) D-Dimer Anion Gap Estim Creat Clear Calc Estimated GFR Random Glucose Calcium Total Bilirubin Direct Bilirubin AST ALT Alkaline Phosphatase Troponin I High Sens Total Protein Albumin Lipase Urine Color Urine Appearance Urine pH Ur Specific [place] Urine Protein Urine Glucose (UA) Urine Ketones Urine Blood Urine Nitrite Ur Leukocyte Esterase Urine Test COVID-19 (SHAAN) Negative COVID-19 Clin Com See Note Imaging Radiologist's Impressions: Impressions Chest CTA 04/13/21 21:35 IMPRESSION: 1. Segmental pulmonary emboli, at least involving the right lower lobe and right middle lobe. No evidence of elevated right heart pressures. 2. No acute findings in the abdomen or pelvis. Postsurgical changes of the distal colon. 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 This critical result was discussed with KAHLIL Barron by telephone at 04/13/2021 11:08 PM and it was ascertained that the content and urgency of the report was understood at the time of direct communication. VTE: positive Abdomen/Pelvis CT 04/13/21 21:37 IMPRESSION: 1. Segmental pulmonary emboli, at least involving the right lower lobe and right middle lobe. No evidence of elevated right heart pressures. 2. No acute findings in the abdomen or pelvis. Postsurgical changes of the distal colon. 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 This critical result was discussed with KAHLIL Barron by telephone at 04/13/2021 11:08 PM and it was ascertained that the content and urgency of the report was understood at the time of direct communication. VTE: positive Assessment and Plan (1) Pulmonary emboli: Status: Acute (2) Left ankle swelling: Status: Acute (3) Crohn's disease: Status: Acute (4) Recurrent major depression-severe: Status: Acute (5) PTSD (post-traumatic stress disorder): Status: Acute (6) Rheumatoid arthritis: Status: Acute (7) HTN (hypertension): Status: Acute (8) Hyperlipidemia: Status: Acute New diagnosis of pulmonary emboli: -as seen on CTA of the chest -started on heparin drip, will continue -IV PPI -morning team can transfer patient over to oral anticoagulant Left ankle swelling: -could be secondary to possible DVT -left lower extremity Doppler ordered -the left ankle joint does look erythematous and inflamed; however I think infection is less likely secondary to the fact that patient does not have leukocytosis or fever, and has another probable reason for swelling and pain (? DVT) Crohn's disease: -continue home steroids, medications PTSD and Recurrent major depression: -continue home medications Rheumatoid arthritis: -continue home medications Hypertension: -continue medication Hyperlipidemia: -continue medications FEN: Cardiac diet CODE STATUS: DNR DISPO: Admit to Observation Quality Stroke Does the patient have a stroke diagnosis?: No VTE Prior VTE?: No VTE Risk Level:: Medical - moderate - high VTE Device Contraindication: Procedure Contraindicated VTE Drug Contraindication: N/A - Med Ordered
[2021-04-14 06:27] LABS: MANUAL DIFF FLAG NO
[2021-04-14] MEDS: oxyCODONE HCl Immed Release 5 MG TABLET PO ×4 (06:27→22:24)
[2021-04-14] MEDS: Calcium Carbonate 750 MG TAB.CHEW PO ×2 (06:28→17:19)
[2021-04-14 06:58] LABS: Basophils Percent Auto 0.7 % (0-2); Eosinophils Absolute Auto 0.1 X10*3/uL (0.0-0.4); Eosinophils Percent Auto 1.8 % (0-4); Hematocrit 33.6 % (37-47); Hemoglobin 10.4 g/dl (12.0-16.0); Imm Gran Abs Auto 0.02 X10*3/uL (0.00-0.03); Imm Gran Pct Auto 0.4 % (0.0-0.4); Lymphocytes Absolute Auto 1.7 X10*3/uL (1.2-4.9); Lymphocytes Percent Auto 29.9 % (20-40); Mean Corpuscular Hemoglobin 26.9 pg (27.0-33.0); Mean Platelet Volume 10.8 fL (9.4-12.3); Monocytes Absolute Auto 0.2 X10*3/uL (0.1-1.2); Monocytes Percent Auto 4.2 % (2-11); Neutrophils Absolute Auto 3.5 X10*3/uL (2.0-8.3); Platelet Count 254 X10*3/uL (160-400); Red Blood Count 3.86 X10*6/uL (4.20-5.50); Red Cell Distribution Width 17.2 % (11.0-16.0); White Blood Count 5.5 X10*3/uL (4.8-10.8)
[2021-04-14 07:24] LABS: Anion Gap 11 (12-20); Blood Urea Nitrogen 11 mg/dL (9-16); Calcium 8.5 mg/dL (8.4-10.2); Carbon Dioxide 23 mmol/L (22-29); Chloride 112 mmol/L (96-108); Estimated Glomerular Filt Rate > 60; Glucose Random 100 mg/dL (60-115); Potassium 3.7 mmol/L (3.3-5.1); Sodium 142 mmol/L (135-145)
--- NOTE | 2021-04-14 08:49 | PM.EVENT ---
Event Note Date of Service: 04/14/21 Event Note: Day Team Follow up in brief S Seen and examine this AM, boarding in the ED complaining of R posterior chest wall pain O Vitals - last documented Gen - NAD CVS - S1S2 LUngs - clear Abd - soft/nt Ext - no edema A/P 50 yo F with Crohn's admitted presented with R pleurtic chest pain and diagnosed with R segmental PE involving the RLL and RML. h/h stable on IV heparin gtt, swtich to oral Eliquis - 10mg BID x 7 days, followed by 5mg BID b/l LE doppler to rule out DVT if h/h stable tomorrow, likely home with outpatient follow up with oncology (unprovoked VTE)
[2021-04-14] MEDS: PARoxetine HCL 20 MG TABLET PO (09:20)
[2021-04-14] MEDS: risperiDONE 1 MG TABLET PO ×2 (09:20→22:24)
[2021-04-14] MEDS: clonazePAM 1 MG TABLET PO ×2 (09:21→22:27)
[2021-04-14] MEDS: Topiramate 100 MG TABLET PO ×2 (09:22→22:25)
[2021-04-14] MEDS: amLODIPine Besylate 10 MG TABLET PO (09:22)
[2021-04-14] MEDS: Multivitamin TABLET 1 TAB PO (09:23)
[2021-04-14] MEDS: Divalproex Sodium 250 MG TABLET.DR PO (09:24)
[2021-04-14] MEDS: Docusate Sodium 100 MG CAPSULE PO ×2 (09:24→22:25)
[2021-04-14] MEDS: Lactulose 20 GM/30 ML SOLUTION PO ×2 (09:24→22:28)
[2021-04-14 10:18] LABS: PTT Heparin Drip 79.8 SEC (53-77.9)
[2021-04-14] MEDS: Apixaban 5 MG TABLET 10 MG PO ×2 (10:31→22:26)
[2021-04-14] MEDS: Morphine Sulfate 2 MG/ML CARTRIDGE IVPUSH (12:57)
--- NOTE | 2021-04-14 15:12 | MHC.CM.PN ---
Addendum entered by Laura Gonzales RN 04/14/21 15:26: CLARIFICATION: PT BEING TREATED FOR PE W/HEPARIN DRIP AND IV PPI, DVT R/O D/T LEFT ANKLE SWELLING. 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 PCP:SALO SEARS HCP: JOEL FUENTES [phone] ALTERNATE: ROGER [phone]
[2021-04-14] MEDS: 0.9 % Sodium Chloride Flush 3 ML SYRINGE IVFLUSH ×2 (17:20→22:40)
--- NOTE | 2021-04-14 20:48 | PC.NURSE ---
Patient pulled out her iv.
[2021-04-14] MEDS: Mirtazapine 15 MG TABLET PO (22:24)
[2021-04-14] MEDS: Amitriptyline HCl 25 MG TABLET 50 MG PO (22:25)
[2021-04-14] MEDS: Montelukast Sodium 10 MG TABLET PO (22:26)
[2021-04-14] MEDS: Acetaminophen 325 MG TABLET 650 MG PO (22:26)
[2021-04-14] MEDS: Doxazosin Mesylate 2 MG TABLET PO (22:27)
[2021-04-15] VITALS: BP 135/65; PULSE 77; RESP 18; TEMP 36.7; O2SAT 95
[2021-04-15 04:00] VITALS: RESP 16
[2021-04-15 05:00] VITALS: BP 125/80; PULSE 82; RESP 16; TEMP 36.6; O2SAT 94
[2021-04-15] MEDS: Omeprazole 20 MG CAPSULE.DR PO (05:31)
[2021-04-15] MEDS: oxyCODONE HCl Immed Release 5 MG TABLET PO (05:34)
[2021-04-15 08:00] VITALS: BP 104/66; PULSE 85; RESP 18; TEMP 36.4; O2SAT 95
[2021-04-15 08:30] LABS: Hematocrit 33.5 % (37-47); Hemoglobin 10.6 g/dl (12.0-16.0)
[2021-04-15] MEDS: 0.9 % Sodium Chloride Flush 3 ML SYRINGE IVFLUSH (09:03)
[2021-04-15] MEDS: Lactulose 20 GM/30 ML SOLUTION PO (09:03)
[2021-04-15] MEDS: Multivitamin TABLET 1 TAB PO (09:03)
[2021-04-15] MEDS: Calcium Carbonate 750 MG TAB.CHEW PO (09:03)
[2021-04-15] MEDS: risperiDONE 1 MG TABLET PO (09:04)
[2021-04-15] MEDS: Apixaban 5 MG TABLET 10 MG PO (09:04)
[2021-04-15] MEDS: clonazePAM 1 MG TABLET PO (09:04)
[2021-04-15] MEDS: Topiramate 100 MG TABLET PO (09:04)
[2021-04-15] MEDS: Divalproex Sodium 250 MG TABLET.DR PO (09:04)
[2021-04-15] MEDS: amLODIPine Besylate 10 MG TABLET PO (09:04)
[2021-04-15] MEDS: Docusate Sodium 100 MG CAPSULE PO (09:04)
[2021-04-15] MEDS: PARoxetine HCL 20 MG TABLET PO (09:04)
--- NOTE | 2021-04-15 10:01 | PM.DS ---
DS: Providers Provider Date of Service: 04/15/21 Date of admission: 04/14/21 02:41 Primary care physician: [facility] DS: Diagnosis Discharge Diagnosis (1) Pulmonary emboli: Status: Acute (2) Left ankle swelling: Status: Resolved (3) Crohn's disease: (4) Recurrent major depression-severe: (5) PTSD (post-traumatic stress disorder): (6) Rheumatoid arthritis: (7) HTN (hypertension): (8) Hyperlipidemia: DS: Summary Hospital Course Hospital Course: History of presenting illness Chief Complaint: Chest pain, left ankle swelling 50-year-old female with history of Crohn's colitis, depression, hypertension, hyperlipidemia, migraine, PTSD, rheumatoid arthritis, who presented today with 4 days of left ankle pain and some chest pain.? History from the patient and from ED notes. Patient endorses that she has been having 4 days of left lower extremity ankle pain and swelling and erythema.? She also had some chest pain.? Therefore, she came to the ED.? Otherwise, she does endorse chronic sinus discomfort, fatigue, and chronic pain secondary to Crohn's disease.? She denies fever, chills, nausea or vomiting. In ED, vitals were unremarkable, she was not tachycardic or febrile.? CBC and BMP were unremarkable.? D-dimer was elevated at 2989.? LFTs are unremarkable.? Urinalysis was unremarkable. CT a of the chest revealed acute pulmonary emboli in the right lower lobe and right middle lobe (please see official report for full details).? CT of the abdomen was negative for acute findings. The patient was started on heparin drip.? She is being admitted for acute pulmonary emboli. Hospital course 50 yo F with Crohn's admitted presented with R pleurtic chest pain and diagnosed with R segmental PE involving the RLL and RML patient treated with IV heparin, H&H remained stable, subsequently switched to oral Eliquis - 10mg BID x 7 days, followed by 5mg BID,b/l LE doppler study showed no DVT, since patient hemodynamically stable being discharged home with outpatient follow up with oncology for unprovoked VTE. Time Spent with Patient Time attestation: Total time spent providing and/or coordinating discharge services: Discharge coordination time: Greater than 30 minutes Quality: Stroke Does the patient have a stroke diagnosis?: No Physical Exam Vital Signs: Vital Signs: Last Vital Signs Temp 97.6 F 04/15/21 08:00 Pulse 85 04/15/21 08:00 Resp 18 04/15/21 08:00 BP 104/66 04/15/21 08:00 Pulse Ox 95 04/15/21 08:00 Body Mass Index 31.1 General no acute distress. Neck no JVD. CVS regular rate rhythm, Respiratory lungs clear to auscultation, no respiratory distress, no wheeze, no rhonchi. Gastrointestinal abdomen soft, nontender, bowel sounds audible Extremities no edema. Left ankle normal examination no redness, swelling or warmth Neuro nonfocal Skin no rash DS: Data Data Completed and Pending Completed studies during hospitalization [Text1]: Procedures Dilation of Sigmoid Colon, Via Natural or Artificial Opening Endoscopic (03/01/21) Excision of Ascending Colon, Via Natural or Artificial Opening Endoscopic, Diagnostic (03/01/21) Excision of Cecum, Via Natural or Artificial Opening Endoscopic, Diagnostic (03/01/21) Excision of Descending Colon, Via Natural or Artificial Opening Endoscopic, Diagnostic (03/01/21) Excision of Duodenum, Via Natural or Artificial Opening Endoscopic, Diagnostic (03/01/21) Excision of Rectum, Via Natural or Artificial Opening Endoscopic (03/01/21) Excision of Sigmoid Colon, Via Natural or Artificial Opening Endoscopic, Diagnostic (03/01/21) Excision of Stomach, Pylorus, Via Natural or Artificial Opening Endoscopic, Diagnostic (03/01/21) Excision of Transverse Colon, Via Natural or Artificial Opening Endoscopic, Diagnostic (03/01/21) Extraction of Esophagus, Via Natural or Artificial Opening Endoscopic, Diagnostic (03/01/21) Labs on day of discharge: Laboratory Results - last 24 hr 04/14/21 04/15/21 09:51 08:20 Hgb 10.6 L Hct 33.5 L PTT (Heparin Protocol) 79.8 H D Discharge Plan Discharge Patient Disposition: Home, Self-Care Discharge Diagnosis: Pulmonary embolism Referrals: [facility] [Primary Care Provider] - 1 Week Discharge Medications: New Eliquis 5 mg Tablet 10 mg PO BID Qty: 13 RF: 0 Eliquis 5 mg tablet 5 mg PO BID Qty: 60 RF: 0 Continued multivitamin Tablet 1 tab PO QAM RF: 0 clonazepam 1 mg tablet 1 tab PO BID RF: 0 amitriptyline 25 mg tablet 2 tab PO BEDTIME RF: 0 methotrexate sodium 2.5 mg tablet 10 tab PO TU RF: 0 amlodipine 10 mg tablet 1 tab PO QAM RF: 0 lidocaine 5 % adhesive patch,medicated 1 patch topical NEEDED PRN (Reason: Pain) RF: 0 docusate sodium 100 mg capsule 1 cap PO BID RF: 0 montelukast 10 mg tablet 1 tab PO BEDTIME RF: 0 ergocalciferol (vitamin D2) 1,250 mcg (50,000 unit) capsule 1 cap PO WE RF: 0 budesonide 3 mg capsule,delayed,extend.release 3 cap PO QAM RF: 0 topiramate 100 mg tablet 1 tab PO BID RF: 0 oxycodone 5 mg tablet 1 tab PO Q4H PRN (Reason: pain) RF: 0 vitamin B complex-folic acid [B Complex 1 (with folic acid)] 0.4 mg tablet 1 tab PO QAM RF: 0 Stelara 90 mg/mL syringe 1 syringe subcut Q28D RF: 0 doxazosin 2 mg tablet 1 tab PO BEDTIME RF: 0 calcium carbonate [Tums E-X] 300 mg (750 mg) Tablet,Chewable 300 mg PO BIDPC RF: 0 nystatin 100,000 unit/mL Suspension 500,000 unit PO QID Qty: 20 RF: 0 divalproex 250 mg Tablet,Delayed Release (Dr/Ec) 250 mg PO DAILY Qty: 2 RF: 0 paroxetine HCl 20 mg Tablet 20 mg PO DAILY Qty: 30 RF: 0 mirtazapine 15 mg Tablet 15 mg PO BEDTIME Qty: 30 RF: 0 risperidone 1 mg Tablet 1 mg PO BID Qty: 60 RF: 0 lactulose 20 gram/30 mL Solution 20 g PO BID Qty: 1200 RF: 0 polyethylene glycol 3350 17 gram Powder In Packet 17 g PO DAILY PRN (Reason: Constipation) Qty: 30 RF: 0 Discharge Orders: Discharge Order (Routine); Ordered 04/15/21 Ordered By: Davis Denise Diet: advance to usual diet Activity on Discharge: As tolerated Stand Alone Forms: Patient Portal Discharge page Care Plan Goals: You have right-sided pulmonary embolus Take Eliquis 10 mg twice daily for 1 week, followed by Eliquis 5 mg twice daily for next 3-4 months Return to check if there is any shortness of breath, chest pain, lightheadedness, or passing out, or noted any bleeding. Health Concerns: Continue all home medications as before Plan of Treatment: Follow-up with primary care physician, follow up with Dr. Blake at [facility], call for appointment in next 7-10 days Assessment: As above Discharge Date/Time: 04/15/21 13:27
--- NOTE | 2021-04-15 10:13 | MHC.CM.PN ---
Addendum entered by Dara Dean 04/15/21 11:00: CM PROVIDED ELIQUIS COUPON TO PT WHO REPORTS SHE USUALLY GOES TO THE [facility] WHICH IS CLOSED. HOSPITALIST PROVIDED A PAPER RX SO THAT PT CAN HAVE IT FILLED AT ANY PHARMACY. 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 NO NEW SERVICES ORDERED. FAMILY CAN TRANSPORT
--- NOTE | 2021-04-15 11:44 | P.F2F_ITS ---
Service Date Service Date: 04/15/21 Encounter Date of encounter: 04/15/21 Reasons for Services Signs and symptoms assessed: Pulmonary embolism started on new medication Left ankle pain Reason for care home: medication treatment and teach disease management Homebound: Leaving the home is medically contraindicated at this time without t he asist of a device and/or another person due th the listed conditions above and below. Homebound supporting statement: Due to generalized pain and now with new PE patient will be homebound Certification: Based on the above findings, I certify that this patient is confined to the home and needs intermittent care home care, physical therapy and/or speech therapy, or continues to need occupational therapy. The patient is under my care, and I have initiated the establishment of the plan of care. The patient will be followed by a physician who will periodically review the plan of care.
== END 2021-04-15 13:27 | disposition home or self-care (01) ==
LOC: HO.ED 19:11 → HO.EDOVER 04-14 02:47 → HO.S3 04-14 21:22
PROVIDERS: Family Medicine; Physician Assistant Medical; Admitting Provider Internal Medicine; Emergency Provider Emergency Medicine; Visit Provider Hospitalist
DX: I26.99 Other pulmonary embolism without acute cor pulmonale (principal); M25.472 Effusion, left ankle; K50.019 Crohn's disease of small intestine with unspecified complications; J45.30 Mild persistent asthma, uncomplicated; F33.2 Major depressive disorder, recurrent severe without psychotic features; I10 Essential (primary) hypertension; E78.5 Hyperlipidemia, unspecified; M06.9 Rheumatoid arthritis, unspecified; F43.10 Post-traumatic stress disorder, unspecified; Z79.899 Other long term (current) drug therapy
CPT/HCPCS: 36415; 71275; 74177; 80048; 80076; 81003; 81025; 83690; 84484; 85014; 85018; 85025; 85379; 85610; 85730; 87635; 93005; 93970; 96361; 96365; 96366; 96375; 96376; 99218; 99220; 99285; J2270; Q9967

== ENCOUNTER 2021-04-17 13:38 | Outpatient (REF) | payer MEDICAID, SELFPAY | END 2021-04-17 13:39 | disposition home or self-care (01) | LOC: HO.MDS 13:38 | PROVIDERS: PCP Internal Medicine; Visit Provider Internal Medicine Gastroenterology | DX: K50.118 Crohn's disease of large intestine with other complication (principal) | CPT/HCPCS: 96372; J3357 ==

== ENCOUNTER 2021-04-18 19:46 | Emergency (ER) | payer MEDICAID, SELFPAY ==
[2021-04-18 19:55] VITALS: BP 113/62; BP 128/82; PULSE 100; PULSE 88; RESP 16; TEMP 37.2; O2SAT 98; O2SAT 99; BMI 35.3
[2021-04-18 20:43] VITALS: BP 112/69; PULSE 82; RESP 18; TEMP 36.4; O2SAT 99
--- NOTE | 2021-04-18 22:02 | ED.GENADULT ---
HPI - General Adult General Chief complaint: Extremity Problem Stated complaint: lower leg swelling Time Seen by Provider: 04/18/21 22:02 Source: patient and translator and interpreter Mode of arrival: ambulatory History of Present Illness HPI narrative: 50-year-old female with history of Crohn's and recent diagnosis of PE which prompted an admission and discharge on 04/15 and now returns with some concerns regarding questions about whether not the clot in her lungs could have traveled from her lower extremities which she had noted were swelling. Otherwise, patient denies any new changes in shortness of breath, evidence of bleeding such as gum or rectal. She denies any dizziness or sweating and states that she has been taking her medications as prescribed since discharge. Related Data Home Medications Medication Instructions Recorded Confirmed amitriptyline 25 mg tablet 2 tab PO BEDTIME 03/22/21 04/14/21 amlodipine 10 mg tablet 1 tab PO QAM 03/22/21 04/14/21 budesonide 3 mg 3 cap PO QAM 03/22/21 04/14/21 capsule,delayed,extended release calcium carbonate 300 mg (750 mg) 300 mg PO BIDPC 03/22/21 04/14/21 chewable tablet (Tums E-X) clonazepam 1 mg tablet 1 tab PO BID 03/22/21 04/14/21 docusate sodium 100 mg capsule 1 cap PO BID 03/22/21 04/14/21 doxazosin 2 mg tablet 1 tab PO BEDTIME 03/22/21 04/14/21 ergocalciferol (vitamin D2) 1,250 1 cap PO WE 03/22/21 04/14/21 mcg (50,000 unit) capsule lidocaine 5 % topical patch 1 patch TOPICAL NEEDED PRN 03/22/21 04/14/21 methotrexate sodium 2.5 mg tablet 10 tab PO TU 03/22/21 04/14/21 montelukast 10 mg tablet 1 tab PO BEDTIME 03/22/21 04/14/21 multivitamin 1 tab PO QAM 03/22/21 04/14/21 oxycodone 5 mg tablet 1 tab PO Q4H PRN 03/22/21 04/14/21 topiramate 100 mg tablet 1 tab PO BID 03/22/21 04/14/21 ustekinumab 90 mg/mL subcutaneous 1 syringe SUBCUT Q28D 03/22/21 04/14/21 syringe (Stelara) vitamin B complex-folic acid 0.4 1 tab PO QAM 03/22/21 04/14/21 mg tablet (B Complex 1 (with folic acid)) Previous Rx's Medication Instructions Recorded divalproex 250 mg tablet,delayed 250 mg PO DAILY #2 tab 04/04/21 release lactulose 20 gram/30 mL oral 20 g PO BID #1200 ml 04/04/21 solution mirtazapine 15 mg tablet 15 mg PO BEDTIME #30 tab 04/04/21 nystatin 100,000 unit/mL oral 500,000 unit PO QID #20 ml 04/04/21 suspension paroxetine HCl 20 mg tablet 20 mg PO DAILY #30 tab 04/04/21 polyethylene glycol 3350 17 gram 17 g PO DAILY PRN #30 ea 04/04/21 oral powder packet risperidone 1 mg tablet 1 mg PO BID #60 tab 04/04/21 apixaban 5 mg tablet (Eliquis) 5 mg PO BID #60 tab 04/15/21 apixaban 5 mg tablet (Eliquis) 10 mg PO BID #13 tab 04/15/21 Allergies Allergy/AdvReac Type Severity Reaction Status Date / Time aspirin [ASA] Allergy Intermediate RASH Verified 04/18/21 20:01 azathioprine [From IMURAN] Allergy Intermediate PANCREATIC Verified 04/18/21 20:01 INFLAMMATION ibuprofen [IBUPROFEN] Allergy Intermediate TOLD NOT Verified 04/18/21 20:01 TO TAKE levofloxacin [From LEVAQUIN] Allergy Mild YEAST Verified 04/18/21 20:01 INFECTIONS Review of Systems Review of Systems: Pertinent positives and negatives as stated in HPI 10 point review of systems is otherwise negative. [facility] Past Medical History Source: nursing notes reviewed Medical History Cancer Crohn's colitis Depression Hemorrhagic cyst of ovary HTN (hypertension) Hyperlipidemia Iron deficiency anemia Kidney stones Migraine PTSD (post-traumatic stress disorder) Recurrent major depression-severe Rheumatoid arthritis Surgical History Hx of colonoscopy (~12/2019) Hx of colonoscopy (~10/2018) Hx of endoscopy Social History Social History Household Members: None Housing: Apartment Do you presently have visiting nurse or other home services: No Alcohol intake: never Patient Tobacco Use Status: Never used Tobacco Second Hand Smoke Exposure: No Substance Use Type: Marijuana Advance Directives: No Advance Directives Information Provided: Yes service: No Current occupational status: disabled Sexual orientation: Straight/Heterosexual Physical Exam Vital Signs: Vital Signs: Last Vital Signs Temp 97.6 F 04/18/21 20:43 Pulse 82 04/18/21 20:43 Resp 18 04/18/21 20:43 BP 112/69 04/18/21 20:43 Pulse Ox 99 04/18/21 20:43 Body Mass Index 35.3 VITAL SIGNS: Reviewed. GENERAL: Well developed, well nourished, in no acute distress. HEAD: Normocephalic/atraumatic EYES: PERRLA, EOMI LUNGS: Normal breath sounds. No adventitious sounds or accessory muscle use. SpO2<99> on room air CARDIOVASCULAR: Regular rate and rhythm without noted murmurs, no JVD ABDOMEN: Soft, non-tender, non-distended with bowel sounds. MUSCULOSKELETAL: No tenderness, deformities, or effusions noted on gross inspection. EXTREMITIES: No cyanosis, clubbing mild edema noted, nonpitting to bilateral lower extremities without pain at the calf SKIN: Inspection of the skin reveals no rashes NEUROLOGIC: Alert and oriented x 4. Course Course Course Narrative: 50-year-old female with history and clinical presentation of known PE with good compliance with her medications and no evidence of hypoxia or increased shortness of breath above baseline. Patient has no other acute complaints other than being concerned regarding the swelling in her legs and stating that when she inquired on the Internet it said that these could not travel to the lungs. Patient was counseled on the connection between clots within the legs and clots within the lungs and reassured that she was taking the appropriate medication and symptoms should begin to resolve. She was encouraged to increased the frequency of appointments with her primary care provider and was also instructed to return to the emergency room should she develop any acute worsening dizziness/shortness of breath. Discharge Plan Discharge Clinical Impression: Pulmonary emboli, Swelling of both lower extremities Patient Disposition: Home, Self-Care Instructions: Apixaban (By mouth), Deep Vein Thrombosis (ED), Leg Edema (ED) Additional Instructions: 1. Reanude todos los medicamentos caseros seg?n lo recetado, especialmente el nuevo anticoagulante con el que courtney comenzado. 2. Sherman un seguimiento con johnston proveedor de atenci?n primaria en los pr?ximos 1-2 d?as para juan daniel reevaluaci?n y un seguimiento adicional. No dude en volver a la richy de emergencias si experimenta un empeoramiento sarina de zoran s?ntomas. Prescriptions: No Action multivitamin Tablet 1 tab PO QAM RF: 0 clonazepam 1 mg tablet 1 tab PO BID RF: 0 amitriptyline 25 mg tablet 2 tab PO BEDTIME RF: 0 methotrexate sodium 2.5 mg tablet 10 tab PO TU RF: 0 amlodipine 10 mg tablet 1 tab PO QAM RF: 0 lidocaine 5 % adhesive patch,medicated 1 patch topical NEEDED PRN (Reason: Pain) RF: 0 docusate sodium 100 mg capsule 1 cap PO BID RF: 0 montelukast 10 mg tablet 1 tab PO BEDTIME RF: 0 ergocalciferol (vitamin D2) 1,250 mcg (50,000 unit) capsule 1 cap PO WE RF: 0 budesonide 3 mg capsule,delayed,extend.release 3 cap PO QAM RF: 0 topiramate 100 mg tablet 1 tab PO BID RF: 0 oxycodone 5 mg tablet 1 tab PO Q4H PRN (Reason: pain) RF: 0 vitamin B complex-folic acid [B Complex 1 (with folic acid)] 0.4 mg tablet 1 tab PO QAM RF: 0 Stelara 90 mg/mL syringe 1 syringe subcut Q28D RF: 0 doxazosin 2 mg tablet 1 tab PO BEDTIME RF: 0 calcium carbonate [Tums E-X] 300 mg (750 mg) Tablet,Chewable 300 mg PO BIDPC RF: 0 nystatin 100,000 unit/mL Suspension 500,000 unit PO QID Qty: 20 RF: 0 divalproex 250 mg Tablet,Delayed Release (Dr/Ec) 250 mg PO DAILY Qty: 2 RF: 0 paroxetine HCl 20 mg Tablet 20 mg PO DAILY Qty: 30 RF: 0 mirtazapine 15 mg Tablet 15 mg PO BEDTIME Qty: 30 RF: 0 risperidone 1 mg Tablet 1 mg PO BID Qty: 60 RF: 0 lactulose 20 gram/30 mL Solution 20 g PO BID Qty: 1200 RF: 0 polyethylene glycol 3350 17 gram Powder In Packet 17 g PO DAILY PRN (Reason: Constipation) Qty: 30 RF: 0 Eliquis 5 mg Tablet 10 mg PO BID Qty: 13 RF: 0 Eliquis 5 mg tablet 5 mg PO BID Qty: 60 RF: 0 Referrals: Physician,Unknown [Primary Care Provider] - 2 days Print Language: Sami
== END 2021-04-18 22:15 | disposition home or self-care (01) ==
PROVIDERS: Emergency Provider Student in an Organized Health Care Education/Training Program
DX: I26.99 Other pulmonary embolism without acute cor pulmonale (principal); R60.0 Localized edema; I10 Essential (primary) hypertension; F12.90 Cannabis use, unspecified, uncomplicated; Z79.899 Other long term (current) drug therapy
CPT/HCPCS: 99283; 99284

== ENCOUNTER → 2021-05-10 08:12 | Outpatient (BNVA) | payer MEDICAID, SELFPAY | PROVIDERS: Visit Provider Internal Medicine Gastroenterology ==

== ENCOUNTER 2021-05-23 14:12 | Outpatient (REF) | payer MEDICAID, SELFPAY | END 2021-05-23 14:13 | disposition home or self-care (01) | LOC: HO.MDS 14:12 | PROVIDERS: Visit Provider Internal Medicine Gastroenterology | DX: K50.10 Crohn's disease of large intestine without complications (principal) | CPT/HCPCS: 96372; J3357 ==

== ENCOUNTER → 2021-05-25 13:52 | Outpatient (BNV) | payer MEDICAID, SELFPAY | PROVIDERS: Visit Provider Internal Medicine | DX: D50.9 Iron deficiency anemia, unspecified (principal); Z86.711 Personal history of pulmonary embolism; Z79.01 Long term (current) use of anticoagulants | CPT/HCPCS: 99213; 99214 ==

== ENCOUNTER 2021-06-25 02:58 | Observation (INO) | payer MEDICAID, SELFPAY ==
[2021-06-25] VITALS (9 sets, daily range): BP systolic 107–135; BP diastolic 53–84; PULSE 81–112; RESP 15–22; TEMP 36.8–38; O2SAT 95–97; BMI 36.3; BMI 37.2
--- NOTE | ~2021-06-25 | CT_ITS ---
EXAMINATION: CT ABDOMEN AND PELVIS WITH CONTRAST CLINICAL INFORMATION: History of Crohn's disease and bowel resection COMPARISON: 04/13/2021 TECHNIQUE: Multidetector volumetric images were obtained from the superior aspect of the liver through the pubic symphysis following administration 85 mL of Omnipaque 350 intravenous contrast. Sagittal and coronal reformatted images were obtained on the technologist's workstation. Oral contrast: No This CT examination was performed using dose optimization techniques as appropriate, variously including the following: *Automated exposure control *Adjustment of mA and/or kV according to patient size (this includes techniques or standardized protocols for targeted exams where dose is matched to indication/reason for exam; i.e. extremities or head) *Use of iterative reconstruction technique DLP: 711 mGy-cm FINDINGS: LUNG BASES: The visualized lung bases are unremarkable. LIVER, GALLBLADDER, AND BILIARY TREE: The liver is normal in size, shape, and attenuation. No focal hepatic lesion or biliary ductal dilatation is present. The gallbladder is unremarkable with no evidence of radiopaque gallstones, gallbladder wall thickening, or obvious pericholecystic inflammatory changes. PANCREAS: Unremarkable. SPLEEN: Unremarkable. ADRENAL GLANDS: Unremarkable. KIDNEYS AND URETERS: The kidneys are normal in size, shape, and attenuation. No hydronephrosis, hydroureter, or calculi seen. No perinephric stranding. BLADDER: Unremarkable. GASTROINTESTINAL TRACT: Status post sigmoid colectomy with anastomosis within the left lower quadrant. Again seen is wall thickening of the juxta anastomotic colon with narrowing which may represent a chronic stricture. Mild surrounding fat stranding may represent chronic scar tissue, or degree of mild active inflammation in this location, the appearance of which is similar to prior. No associated obstruction. Normal appendix. The small bowel is unremarkable from a CT imaging standpoint. ABDOMINAL WALL: No significant hernia is appreciated. Previous ventral hernia repair. LYMPH NODES: Normal. VASCULAR: Unremarkable. PELVIC VISCERA: Uterus and adnexa unremarkable. OSSEOUS STRUCTURES: Unremarkable. CT/CT abdomen pelvis w con IMPRESSION: * Status post sigmoid colectomy with colocolic anastomosis in the left lower quadrant. There is persistent juxtaanastomotic colonic wall thickening, associated with a chronic stricture, with mild surrounding fat stranding favored to represent cicatrization although mild inflammation may be contributing. No associated obstruction. * No small bowel inflammation on the current exam.
--- NOTE | ~2021-06-25 | XR_ITS ---
EXAMINATION: XR CHEST CLINICAL INFORMATION: Fever. COMPARISON: CT dated 06/25/2021. TECHNIQUE: Frontal view of the chest was obtained. FINDINGS: Subtle patchy airspace opacities are present in the left lung base, likely consolidative in nature. Minimal bibasilar atelectasis. No pneumothorax or pleural effusion. Cardiac and mediastinal contours are normal. Prominent vasculature is unremarkable. No acute osseous findings. XR/XR chest 1V IMPRESSION: Subtle patchy consolidation at the left lung base which may correspond to pneumonia or aspiration.
[2021-06-25 03:36] LABS: MANUAL DIFF FLAG NO
[2021-06-25 03:41] LABS: Basophils Absolute Auto 0.1 X10*3/uL (0.0-0.2); Basophils Percent Auto 0.4 % (0-2); Eosinophils Absolute Auto 0.1 X10*3/uL (0.0-0.4); Eosinophils Percent Auto 0.9 % (0-4); Hematocrit 32.9 % (37.0-47.0); Hemoglobin 10.6 g/dl (12.0-16.0); Imm Gran Abs Auto 0.05 X10*3/uL (0.00-0.03); Imm Gran Pct Auto 0.4 % (0.0-0.4); Lymphocytes Absolute Auto 1.9 X10*3/uL (1.2-4.9); Lymphocytes Percent Auto 13.2 % (20-40); Mean Corpuscular HGB Conc 32.2 g/dl (31.0-35.0); Mean Corpuscular Hemoglobin 27.8 pg (27.0-33.0); Mean Corpuscular Volume 86.4 fL (80.0-98.0); Mean Platelet Volume 11.1 fL (9.4-12.3); Monocytes Percent Auto 6.9 % (2-11); Neutrophils Absolute Auto 10.98 x10*3/uL (2.0-8.3); Neutrophils Percent Auto 78.2 % (45-73); Platelet Count 284 X10*3/uL (160-400); Red Blood Count 3.81 X10*6/uL (4.20-5.50); Red Cell Distribution Width 17.5 % (11.0-16.0); White Blood Count 14.1 X10*3/uL (4.8-10.8)
[2021-06-25 03:48] LABS: Lactic Acid 1.2 mmol/L (0.5-2.0)
--- NOTE | 2021-06-25 03:50 | ED.ABDPAIN ---
HPI - Abdominal Pain General Chief Complaint: Abdominal Pain Stated Complaint: crohn's flare up Time Seen by Provider: 06/25/21 03:06 Source: patient Mode of arrival: EMS History of Present Illness HPI narrative: This is a 50-year-old female with past medical history of Crohn's, DVT currently on Eliquis, who presents with 2 days of abdominal pain that has worsened and is primarily located on the right lower side and is sharp in nature. Patient states that this is been associated with diarrhea, nonbloody, as well as nausea and vomiting without urinary symptoms. Patient states that she has had fever and chills with a T-max of 103? and endorses that she has been taking food to her daughter who is COVID-19 positive. Related Data Home Medications Medication Instructions Recorded Confirmed amitriptyline 25 mg tablet 2 tab PO BEDTIME 03/22/21 06/13/21 amlodipine 10 mg tablet 1 tab PO QAM 03/22/21 06/13/21 budesonide 3 mg 3 cap PO QAM 03/22/21 06/13/21 capsule,delayed,extended release calcium carbonate 300 mg (750 mg) 300 mg PO BIDPC 03/22/21 06/13/21 chewable tablet (Tums E-X) clonazepam 1 mg tablet 1 tab PO BID 03/22/21 06/13/21 docusate sodium 100 mg capsule 1 cap PO BID 03/22/21 06/13/21 doxazosin 2 mg tablet 1 tab PO BEDTIME 03/22/21 06/13/21 ergocalciferol (vitamin D2) 1,250 1 cap PO WE 03/22/21 06/13/21 mcg (50,000 unit) capsule lidocaine 5 % topical patch 1 patch TOPICAL NEEDED PRN 03/22/21 06/13/21 methotrexate sodium 2.5 mg tablet 10 tab PO TU 03/22/21 06/13/21 montelukast 10 mg tablet 1 tab PO BEDTIME 03/22/21 06/13/21 multivitamin 1 tab PO QAM 03/22/21 06/13/21 topiramate 100 mg tablet 1 tab PO BID 03/22/21 06/13/21 ustekinumab 90 mg/mL subcutaneous 1 syringe SUBCUT Q28D 03/22/21 06/13/21 syringe (Luis) vitamin B complex-folic acid 0.4 1 tab PO QAM 03/22/21 06/13/21 mg tablet (B Complex 1 (with folic acid)) albuterol sulfate 1 amp INHALATION Q4H PRN 06/13/21 06/13/21 albuterol sulfate 90 mcg/actuation 2 puff PO QID PRN 06/13/21 06/13/21 aerosol inhaler (ProAir HFA) apixaban 5 mg tablet (Eliquis) 10 mg PO BID 06/13/21 06/13/21 esomeprazole magnesium 20 mg 1 cap PO QAM 06/13/21 06/13/21 capsule,delayed release prednisone 10 mg tablet 1 tab PO DAILY 06/13/21 06/13/21 Previous Rx's Medication Instructions Recorded divalproex 250 mg tablet,delayed 250 mg PO DAILY #2 tab 04/04/21 release lactulose 20 gram/30 mL oral 20 g PO BID #1200 ml 04/04/21 solution mirtazapine 15 mg tablet 15 mg PO BEDTIME #30 tab 04/04/21 nystatin 100,000 unit/mL oral 500,000 unit PO QID #20 ml 04/04/21 suspension paroxetine HCl 20 mg tablet 20 mg PO DAILY #30 tab 04/04/21 polyethylene glycol 3350 17 gram 17 g PO DAILY PRN #30 ea 04/04/21 oral powder packet risperidone 1 mg tablet 1 mg PO BID #60 tab 04/04/21 Allergies Allergy/AdvReac Type Severity Reaction Status Date / Time aspirin [ASA] Allergy Intermediate RASH Verified 05/25/21 14:01 azathioprine [From IMURAN] Allergy Intermediate PANCREATIC Verified 05/25/21 14:01 INFLAMMATION ibuprofen [IBUPROFEN] Allergy Intermediate TOLD NOT Verified 05/25/21 14:01 TO TAKE levofloxacin [From LEVAQUIN] Allergy Mild YEAST Verified 05/25/21 14:01 INFECTIONS Review of Systems Review of Systems Pertinent positives and negatives as stated in HPI and 10 point review of symptoms is otherwise negative. Physical Exam Vital Signs: Vital Signs: Last Vital Signs Temp 100.4 F 06/25/21 03:12 Pulse 108 H 06/25/21 03:12 Resp 18 06/25/21 03:12 BP 135/84 06/25/21 03:12 Pulse Ox 96 06/25/21 03:12 Body Mass Index 36.3 VITAL SIGNS: Reviewed. GENERAL: Well developed, well nourished, in no acute distress. HEAD: Normocephalic/atraumatic EYES: PERRLA, EOMI OROPHARYNX: no oral lesions noted, posterior pharynx clear NECK: Supple, no adenopathy LUNGS: Normal breath sounds. No adventitious sounds or accessory muscle use. SpO2<96> CARDIOVASCULAR: Regular rate and rhythm without noted murmurs ABDOMEN: Soft, significant tenderness in the right lower quadrant without rebound, non-distended with bowel sounds. MUSCULOSKELETAL: No tenderness, deformities, or effusions noted on gross inspection. EXTREMITIES: No cyanosis, clubbing or edema. SKIN: Inspection of the skin reveals no rashes NEUROLOGIC: Alert and oriented x 4. Course Course Course Narrative: 0345: This is a 50-year-old female with history and clinical presentation consistent with Crohn's flare with possible obstructive symptoms, appendicitis, UTI, renal colic. Review of all investigations consistent with infection, suspect intra-abdominal, awaiting CT read. Patient has received pain medication, IV fluids, antibiotics. Signed out to Dr Hinojosa: f/u CT scan, possible admission. MDM - Abdominal Pain Lab Data Result diagrams: 06/25/21 03:31 06/25/21 03:31 Labs: Lab Results 06/25/21 06/25/21 06/25/21 Range/Units 03:31 03:31 03:31 WBC 14.1 H (4.8-10.8) X10*3/uL RBC 3.81 L (4.20-5.50) X10*6/uL Hgb 10.6 L (12.0-16.0) g/dl Hct 32.9 L (37.0-47.0) % MCV 86.4 (80.0-98.0) fL MCH 27.8 (27.0-33.0) pg MCHC 32.2 (31.0-35.0) g/dl RDW 17.5 H (11.0-16.0) % Plt Count 284 (160-400) X10*3/uL MPV 11.1 (9.4-12.3) fL Immature Gran % (Auto) 0.4 (0.0-0.4) % Neut % (Auto) 78.2 H (45-73) % Lymph % (Auto) 13.2 L (20-40) % [place] % (Auto) 6.9 (2-11) % Eos % (Auto) 0.9 (0-4) % Baso % (Auto) 0.4 (0-2) % Lymph # (Auto) 1.9 (1.2-4.9) X10*3/uL [place] # (Auto) 1.0 (0.1-1.2) X10*3/uL Eos # (Auto) 0.1 (0.0-0.4) X10*3/uL Baso # (Auto) 0.1 (0.0-0.2) X10*3/uL Abs Immat Gran (auto) 0.05 H (0.00-0.03) X10*3/uL Absolute Neuts (auto) 10.98 H (2.0-8.3) x10*3/uL Absolute Nucleated RBC 0.000 (0.0-0.012) X10*3/uL Nucleated RBC % (auto) 0.0 (0.0-0.2) /100WBC PT (9.9-13.0) SEC INR (0.9-1.1) Sodium 137 (135-145) mmol/L Potassium 4.0 (3.3-5.1) mmol/L Chloride 107 (96-108) mmol/L Carbon Dioxide 20 L (22-29) mmol/L Anion Gap 14 (12-20) BUN 14 (9-16) mg/dL Creatinine 0.87 (0.5-1.4) mg/dL Estim Creat Clear Calc 83.8 Estimated GFR > 60 Random Glucose 110 (60-115) mg/dL Lactic Acid 1.2 (0.5-2.0) mmol/L Calcium 8.8 (8.4-10.2) mg/dL Total Bilirubin 0.3 (0.0-1.0) mg/dL AST 28 (5-31) U/L ALT 30 (0-31) U/L Alkaline Phosphatase 93 (39-117) U/L Total Protein 7.1 (6.5-8.0) g/dL Albumin 4.1 (3.5-5.0) g/dL Urine Color Urine Appearance Urine pH (5.0-8.0) Ur Specific [place] (1.005-1.025) Urine Protein (NEG-TRACE) MG/DL Urine Glucose (UA) (NEG) MG/DL Urine Ketones (NEG) MG/DL Urine Blood (NEG) Urine Nitrite (NEG) Ur Leukocyte Esterase (NEG) COVID-19 (SHAAN) (Negative) COVID-19 Clin Com 06/25/21 06/25/21 06/25/21 Range/Units 03:51 04:11 04:11 WBC (4.8-10.8) X10*3/uL RBC (4.20-5.50) X10*6/uL Hgb (12.0-16.0) g/dl Hct (37.0-47.0) % MCV (80.0-98.0) fL MCH (27.0-33.0) pg MCHC (31.0-35.0) g/dl RDW (11.0-16.0) % Plt Count (160-400) X10*3/uL MPV (9.4-12.3) fL Immature Gran % (Auto) (0.0-0.4) % Neut % (Auto) (45-73) % Lymph % (Auto) (20-40) % [place] % (Auto) (2-11) % Eos % (Auto) (0-4) % Baso % (Auto) (0-2) % Lymph # (Auto) (1.2-4.9) X10*3/uL [place] # (Auto) (0.1-1.2) X10*3/uL Eos # (Auto) (0.0-0.4) X10*3/uL Baso # (Auto) (0.0-0.2) X10*3/uL Abs Immat Gran (auto) (0.00-0.03) X10*3/uL Absolute Neuts (auto) (2.0-8.3) x10*3/uL Absolute Nucleated RBC (0.0-0.012) X10*3/uL Nucleated RBC % (auto) (0.0-0.2) /100WBC PT 12.7 (9.9-13.0) SEC INR 1.1 (0.9-1.1) Sodium (135-145) mmol/L Potassium (3.3-5.1) mmol/L Chloride (96-108) mmol/L Carbon Dioxide (22-29) mmol/L Anion Gap (12-20) BUN (9-16) mg/dL Creatinine (0.5-1.4) mg/dL Estim Creat Clear Calc Estimated GFR Random Glucose (60-115) mg/dL Lactic Acid (0.5-2.0) mmol/L Calcium (8.4-10.2) mg/dL Total Bilirubin (0.0-1.0) mg/dL AST (5-31) U/L ALT (0-31) U/L Alkaline Phosphatase (39-117) U/L Total Protein (6.5-8.0) g/dL Albumin (3.5-5.0) g/dL Urine Color YELLOW Urine Appearance CLEAR Urine pH 8.0 (5.0-8.0) Ur Specific [place] 1.015 (1.005-1.025) Urine Protein NEG (NEG-TRACE) MG/DL Urine Glucose (UA) NEG (NEG) MG/DL Urine Ketones NEG (NEG) MG/DL Urine Blood NEG (NEG) Urine Nitrite NEG (NEG) Ur Leukocyte Esterase NEG (NEG) COVID-19 (SHAAN) Negative (Negative) COVID-19 Clin Com See Note Discharge Plan Discharge Clinical Impression: Abdominal pain Prescriptions: No Action multivitamin Tablet 1 tab PO QAM RF: 0 clonazepam 1 mg tablet 1 tab PO BID RF: 0 amitriptyline 25 mg tablet 2 tab PO BEDTIME RF: 0 methotrexate sodium 2.5 mg tablet 10 tab PO TU RF: 0 amlodipine 10 mg tablet 1 tab PO QAM RF: 0 lidocaine 5 % adhesive patch,medicated 1 patch topical NEEDED PRN (Reason: Pain) RF: 0 docusate sodium 100 mg capsule 1 cap PO BID RF: 0 montelukast 10 mg tablet 1 tab PO BEDTIME RF: 0 ergocalciferol (vitamin D2) 1,250 mcg (50,000 unit) capsule 1 cap PO WE RF: 0 budesonide 3 mg capsule,delayed,extend.release 3 cap PO QAM RF: 0 topiramate 100 mg tablet 1 tab PO BID RF: 0 vitamin B complex-folic acid [B Complex 1 (with folic acid)] 0.4 mg tablet 1 tab PO QAM RF: 0 Stelara 90 mg/mL syringe 1 syringe subcut Q28D RF: 0 doxazosin 2 mg tablet 1 tab PO BEDTIME RF: 0 calcium carbonate [Tums E-X] 300 mg (750 mg) Tablet,Chewable 300 mg PO BIDPC RF: 0 nystatin 100,000 unit/mL Suspension 500,000 unit PO QID Qty: 20 RF: 0 divalproex 250 mg Tablet,Delayed Release (Dr/Ec) 250 mg PO DAILY Qty: 2 RF: 0 paroxetine HCl 20 mg Tablet 20 mg PO DAILY Qty: 30 RF: 0 mirtazapine 15 mg Tablet 15 mg PO BEDTIME Qty: 30 RF: 0 risperidone 1 mg Tablet 1 mg PO BID Qty: 60 RF: 0 lactulose 20 gram/30 mL Solution 20 g PO BID Qty: 1200 RF: 0 polyethylene glycol 3350 17 gram Powder In Packet 17 g PO DAILY PRN (Reason: Constipation) Qty: 30 RF: 0 albuterol sulfate 2.5 mg /3 mL (0.083 %) solution for nebulization 1 amp inhalation Q4H PRN (Reason: Wheezing) RF: 0 Eliquis 5 mg tablet 10 mg PO BID RF: 0 prednisone 10 mg tablet 1 tab PO DAILY RF: 0 albuterol sulfate [ProAir HFA] 90 mcg/actuation HFA aerosol inhaler 2 puff PO QID PRN (Reason: Dyspnea) RF: 0 esomeprazole magnesium 20 mg capsule,delayed release(DR/EC) 1 cap PO QAM RF: 0 PMFSH Past Medical History Source: nursing notes reviewed Medical History Anxiety Asthma Cancer Crohn's colitis Crohn's disease Depression GERD (gastroesophageal reflux disease) Hemorrhagic cyst of ovary HTN (hypertension) Hyperlipidemia Iron deficiency anemia Kidney stones Migraine PTSD (post-traumatic stress disorder) Pulmonary embolism Recurrent major depression-severe Rheumatoid arthritis Sleep apnea Surgical History History of colon resection Hx of colonoscopy (~10/2018) Hx of cystoscopy Hx of cystoscopy Hx of dilation and curettage Hx of endoscopy Social History Social History Household Members: None Housing: Apartment Do you presently have visiting nurse or other home services: No Alcohol intake: never Patient Tobacco Use Status: Never used Tobacco Second Hand Smoke Exposure: No Use of substances other than those prescribed or required for medical reasons: No Substance Use Type: Marijuana Advance Directives: No Advance Directives Date on File: 07/06/14 Patient : No service: No Current occupational status: disabled Sexual orientation: Straight/Heterosexual
[2021-06-25 03:55] LABS: Alanine Aminotransferase 30 U/L (0-31); Albumin Level 4.1 g/dL (3.5-5.0); Alkaline Phosphatase 93 U/L (39-117); Anion Gap 14 (12-20); Aspartate Amino Transferase 28 U/L (5-31); Bilirubin Total 0.3 mg/dL (0.0-1.0); Blood Urea Nitrogen 14 mg/dL (9-16); Calcium 8.8 mg/dL (8.4-10.2); Carbon Dioxide 20 mmol/L (22-29); Chloride 107 mmol/L (96-108); Creatinine Clr Calc Pharmacy 83.8; Estimated Glomerular Filt Rate > 60; Glucose Random 110 mg/dL (60-115); Sodium 137 mmol/L (135-145); Total Protein 7.1 g/dL (6.5-8.0)
[2021-06-25 04:00] LABS: Appearance Urine CLEAR; Color Urine YELLOW; Glucose Urine UA NEG (NEG); Leukocyte Esterase Urine NEG (NEG); Nitrite Urine NEG (NEG); Specific Gravity - Urine 1.015 (1.005-1.025); Urine Blood NEG (NEG); Urine Ketones NEG (NEG); Urine Protein NEG (NEG-TRACE)
[2021-06-25] MEDS: 0.9 % Sodium Chloride 1,000 ML 999 ML IV (04:14)
[2021-06-25] MEDS: fentaNYL citrate/PF 100 MCG/2 ML VIAL 25 MCG IVPUSH (04:15)
[2021-06-25] MEDS: cefTRIAXone sodium 1 GM in 0.9 % Sodium Chloride 50 ML IV (04:17)
[2021-06-25] MEDS: metroNIDAZOLE/NS 500 MG/100 ML PIGGYBACK 100 MG IV (04:19)
[2021-06-25 04:29] LABS: INTERNATIONAL NORM RATIO 1.1 (0.9-1.1); Prothrombin Time 12.7 SEC (9.9-13.0)
[2021-06-25 04:40] LABS: COVID-19 Test Negative (Negative); IDNOW Serial# 9DD0AD1C
[2021-06-25] MEDS: iohexoL 350 MG/ML 100 ML INFUS..BTL 85 ML IV (05:14)
[2021-06-25] MEDS: ondansetron HCL 4 MG/2 ML VIAL IVPUSH ×2 (09:12→16:25)
[2021-06-25] MEDS: Morphine Sulfate 4 MG/ML CARTRIDGE IVPUSH ×2 (09:12→19:58)
--- NOTE | 2021-06-25 10:57 | P.HPHOSP_ITS ---
History of Present Illness Date of Service: 06/25/21 Chief Complaint: Abdominal pain 50 year old women presenting with diffuse abd pain that started several days ago. She reported chills at home along with diarrhea. She has a hx of crohns disease and gets ocassional bouts of nausea and vomiting and abd pain. Her vitals have been stable, labs within acceptable limits other than elevated WBC likely secondary to vomiting Review of Systems Review of Systems: Denies any recent fever chills or decrease in appetite respiratory denies any shortness of breath coverage production cardiovascular denies chest pain gastrointestinal see above genitourinary denies any dysuria frequency or hematuria musculoskeletal denies any joint pain or swelling neuropsych denies any weakness or seizures all other systems reviewed are negative [facility] Medical History Anxiety Asthma Cancer Crohn's colitis Crohn's disease Depression GERD (gastroesophageal reflux disease) Hemorrhagic cyst of ovary HTN (hypertension) Hyperlipidemia Iron deficiency anemia Kidney stones Migraine PTSD (post-traumatic stress disorder) Pulmonary embolism Recurrent major depression-severe Rheumatoid arthritis Sleep apnea Pertinent family history: . Surgical History History of colon resection Hx of colonoscopy (~10/2018) Hx of cystoscopy Hx of cystoscopy Hx of dilation and curettage Hx of endoscopy Social History Household Members: None Housing: Apartment Do you presently have visiting nurse or other home services: No Alcohol intake: never Patient Tobacco Use Status: Former Tobacco user Quit Date: 2001 Tobacco use type: Cigarette Years Smoked: 10 Second Hand Smoke Exposure: No Substance Use Type: Marijuana Advance Directives Date on File: 07/06/14 service: No Current occupational status: disabled Sexual orientation: Straight/Heterosexual Meds Allergies Allergy/AdvReac Type Severity Reaction Status Date / Time aspirin [ASA] Allergy Intermediate RASH Verified 06/26/21 07:18 azathioprine [From IMURAN] Allergy Intermediate PANCREATIC Verified 06/26/21 07:18 INFLAMMATION ibuprofen [IBUPROFEN] Allergy Intermediate TOLD NOT Verified 06/26/21 07:18 TO TAKE levofloxacin [From LEVAQUIN] Allergy Mild YEAST Verified 06/26/21 07:18 INFECTIONS Active Medications: Current Medications Acetaminophen (Acetaminophen 325 Mg Tablet) 650 mg PO Q6H PRN PRN Reason: Pain, Mild (Pain Scale 1-3) Ondansetron HCl (Ondansetron Hcl 4 Mg/2 Ml Vial) 4 mg IVPUSH Q8H PRN PRN Reason: Nausea and Vomiting Pharmacy Consult (Consult Rx Perform Med Rec) 1 each MISCELLANE ONCE PRN PRN Reason: Consult order Sodium Chloride (0.9 % Sodium Chloride Flush 3 Ml Syringe) 3 ml IVFLUSH [facility] Medications Medication Instructions Recorded Confirmed Last Taken Type amitriptyline 25 mg tablet 2 tab PO BEDTIME 03/22/21 06/25/21 03/21/21 History clonazepam 1 mg tablet 1 tab PO BEDTIME PRN 03/22/21 06/25/21 03/21/21 History docusate sodium 100 mg capsule 1 cap PO BID 03/22/21 06/25/21 Unknown History doxazosin 2 mg tablet 1 tab PO BEDTIME 03/22/21 06/25/21 03/21/21 History ergocalciferol (vitamin D2) 1,250 1 cap PO WE 03/22/21 06/25/21 03/21/21 History mcg (50,000 unit) capsule methotrexate sodium 2.5 mg tablet 25 mg PO TU 03/22/21 06/25/21 03/20/21 History montelukast 10 mg tablet 1 tab PO BEDTIME 03/22/21 06/25/21 Unknown History multivitamin 1 tab PO QAM 03/22/21 06/25/21 Unknown History topiramate 100 mg tablet 1 tab PO BID 03/22/21 06/25/21 03/21/21 History vitamin B complex-folic acid 0.4 1 tab PO QAM 03/22/21 06/25/21 Unknown History mg tablet (B Complex 1 (with folic acid)) albuterol sulfate 1 amp INHALATION Q6H PRN 06/13/21 06/25/21 Unknown History albuterol sulfate 90 mcg/actuation 2 puff PO QID PRN 06/13/21 06/25/21 Unknown H istory aerosol inhaler (ProAir HFA) apixaban 5 mg tablet (Eliquis) 5 mg PO BID 06/13/21 06/26/21 06/23/21 History esomeprazole magnesium 20 mg 1 cap PO QAM 06/13/21 06/25/21 Unknown History capsule,delayed release acetaminophen 650 mg 1 tab PO Q6H PRN 06/25/21 06/25/21 Unknown History tablet,extended release (Arthritis Pain Relief (acetaminophen) ER) baclofen 10 mg tablet 1 tab PO TID PRN 06/25/21 06/25/21 Unknown History buspirone 5 mg tablet 1 tab PO DAILY 06/25/21 06/25/21 Unknown History calcium carbonate 300 mg (750 mg) 300 mg PO BID PRN 06/25/21 06/25/21 Unknown History chewable tablet (Tums E-X) calcium carbonate 600 mg (1,500 1 tab PO BID 06/25/21 06/25/21 Unknown History mg)-vitamin D3 400 unit tablet clonazepam 0.5 mg tablet 1 tab PO DAILY 06/25/21 06/25/21 Unknown History hydroxyzine HCl 25 mg tablet 1 - 2 tab PO 06/25/21 06/25/21 Unknown History lidocaine 4 % topical patch 1 patch TOPICAL DAILY PRN 06/25/21 06/25/21 Unknown History ustekinumab 90 mg/mL subcutaneous 90 mg SUBCUT Q4W 06/25/21 06/25/21 Unknown History syringe (Stelara) zolpidem 10 mg tablet 1 tab PO BEDTIME PRN 06/25/21 06/25/21 Unknown History Physical Exam Vital Signs and Narrative: Vital Signs: Last Vital Signs Temp 99.1 F 06/25/21 09:41 Pulse 94 06/25/21 09:41 Resp 15 06/25/21 09:41 BP 107/56 L 06/25/21 09:41 Pulse Ox 95 06/25/21 09:41 Body Mass Index 36.3 Appearing in no acute distress head is normocephalic atraumatic eyes pupils are PERRLA sclera is anicteric mouth throat mucous membranes are intact and moist neck is supple no lymphadenopathy, no JVD noted lung sounds are clear to auscultation heart regular rate rhythm, clear S1, S2 positive bowel sounds, abdomen is soft, nontender, no rebound tenderness or guarding neuro patient is alert x3, no focal deficits Results Labs CBC and Chem 7: 06/26/21 06:09 06/26/21 06:09 Labs: Laboratory Results - last 24 hr 06/25/21 06/25/21 06/25/21 03:31 03:31 03:31 MCV 86.4 MCH 27.8 MCHC 32.2 RDW 17.5 H Plt Count 284 MPV 11.1 Immature Gran % (Auto) 0.4 Neut % (Auto) 78.2 H Lymph % (Auto) 13.2 L [place] % (Auto) 6.9 Eos % (Auto) 0.9 Baso % (Auto) 0.4 Lymph # (Auto) 1.9 [place] # (Auto) 1.0 Eos # (Auto) 0.1 Baso # (Auto) 0.1 Abs Immat Gran (auto) 0.05 H Absolute Neuts (auto) 10.98 H Absolute Nucleated RBC 0.000 Nucleated RBC % (auto) 0.0 PT INR Anion Gap 14 Estim Creat Clear Calc 83.8 Estimated GFR > 60 Random Glucose 110 Lactic Acid 1.2 Calcium 8.8 Total Bilirubin 0.3 AST 28 ALT 30 Alkaline Phosphatase 93 Total Protein 7.1 Albumin 4.1 Urine Color Urine Appearance Urine pH Ur Specific [place] Urine Protein Urine Glucose (UA) Urine Ketones Urine Blood Urine Nitrite Ur Leukocyte Esterase COVID-19 (SHAAN) COVID-19 Clin Com 06/25/21 06/25/21 06/25/21 03:51 04:11 04:11 MCV MCH MCHC RDW Plt Count MPV Immature Gran % (Auto) Neut % (Auto) Lymph % (Auto) [place] % (Auto) Eos % (Auto) Baso % (Auto) Lymph # (Auto) [place] # (Auto) Eos # (Auto) Baso # (Auto) Abs Immat Gran (auto) Absolute Neuts (auto) Absolute Nucleated RBC Nucleated RBC % (auto) PT 12.7 INR 1.1 Anion Gap Estim Creat Clear Calc Estimated GFR Random Glucose Lactic Acid Calcium Total Bilirubin AST ALT Alkaline Phosphatase Total Protein Albumin Urine Color YELLOW Urine Appearance CLEAR Urine pH 8.0 Ur Specific [place] 1.015 Urine Protein NEG Urine Glucose (UA) NEG Urine Ketones NEG Urine Blood NEG Urine Nitrite NEG Ur Leukocyte Esterase NEG COVID-19 (SHAAN) Negative COVID-19 Clin Com See Note Imaging Radiologist's Impressions: Impressions Abdomen/Pelvis CT 06/25/21 04:02 IMPRESSION: * Status post sigmoid colectomy with colocolic anastomosis in the left lower quadrant. There is persistent juxtaanastomotic colonic wall thickening, associated with a chronic stricture, with mild surrounding fat stranding favored to represent cicatrization although mild inflammation may be contributing. No associated obstruction. * No small bowel inflammation on the current exam. Assessment and Plan (1) Intractable nausea and vomiting: Status: Acute (2) Leukocytosis (leucocytosis): Status: Acute (3) Normocytic anemia: Status: Acute 50 year old women assigned to observation for intractable nausea and vomiting and abdominal pain Abdominal pain with intractable nausea and vomiting IV fluids zofran pain management supportive care Hx of DVT continue apixaban Mental health continue home medications DVT prophylaxis with xarelto Attending Dr. Kaplan Full code Quality Stroke Does the patient have a stroke diagnosis?: No VTE Prior VTE?: No VTE Risk Level:: Medical - moderate - high VTE Device Contraindication: N/A - Device Ordered VTE Drug Contraindication: Treatment Not Indicated
--- NOTE | 2021-06-25 12:43 | P.CNGI_ITS ---
History of Present Illness Data of Consult Service Date: 06/25/21 Requesting physician: Danielle Rucker Primary Care Provider: MD JACKIE Cabello Reason for consult: Crohn's disease flare, Sigmoid stricture 50 YF with RA, GERD, asthma, sleep apnea, iron def anemia, intermittent compliance with follow up appointments, anxiety and depression with Crohn's disease involving the left colon (and suspected jejunal involvement). Pt was diagnosed with Crohn's colitis 20 yrs ago and is status post sigmoid colectomy with colostomy in 2010, reversal of colostomy in 2011. She has failed treatment with multiple medications in the past due to lack of efficacy or side effects including Remicade, Humira, Cimzia, Entyvio, azathioprine caused pancreatitis. She recalls she had the best response with Humira which was stopped due to concern for MS. She was seen by Neurology at [facility] and was advised a repeat MRI scan of the brain. Pt was re-referred to [facility] Neurology and GI RN was informed that she has been discharged from Neurology due to multiple no-shows. She has been on Stelara every 8 weeks which had worked well for her in the past. Dose of Stelara was increased to every 4 weeks a year ago due to breakthrough symptoms and low trough levels. She has been treated with Prednisone intermittently for CD flares. Colonoscopy in 01/18/20 showed patchy erythema throughout the colon - s urveillance biopsies were obtained. Focal area of ulcerations with a tight stricture at 18 to 20 cms and unable to pass the colonoscope through the stricture. Stricture was dilated with a 12mm (26 F) CRE balloon and colonoscope was then advanced into the colon. Patchy erythema with focal ulcers in the distal rectum. Inflammation in the recto- sigmoid significantly improved from last year - severe left sided colitis with minimal inflammation in the remaining colon. Biopsies were negative for CMV. Patient was seen at [facility] IBD clinic for a 2nd opinion regarding treatment options and addition of methotrexate was advised. Patient was started on methotrexate 25 mg intramuscularly every week on 04/13/19 in the Oncology clinic. She was switched to p.o. methotrexate 50 mg once a week in Sep, 2019. She is also on budesonide 9 mg once daily. She continues to have intermittent flares requiring IV steroids. Pt was seen at [facility] on 05/03/20 and dose of MTX was increased to 25 mg PO (10 tab) every week from 5 tablets daily in March 2020.? Pt states she is taking MTX 10 mg every week at present. Last Stelara injection was on 05/23/2021 - her next injection was due on 06/19/2021 - unclear if she went for her appt. Patient presented to [facility] early this morning with worsening abdominal pain, diarrhea, nausea, vomiting, fever and chills for the past 2 days: HPI narrative: This is a 50-year-old female with past medical history of Crohn's, DVT currently on Eliquis, who presents with 2 days of abdominal pain that has worsened and is primarily located on the right lower side and is sharp in nature.? Patient states that this is been associated with diarrhea, nonbloody, as well as nausea and vomiting without urinary symptoms.? Patient states that she has had fever and chills with a T-max of 103? and endorses that she has been taking food to her daughter who is COVID-19 positive . IMAGING STUDIES: 06/25/[address] SCAN SHOWED: ?Status post sigmoid colectomy with colocolic anastomosis in the left lower quadrant. There is persistent juxtaanastomotic colonic wall thickening, associated with a chronic stricture, with mild surrounding fat stranding favored to represent cicatrization although mild inflammation may be contributing. No associated obstruction. *? No small bowel inflammation on the current exam. Review of Systems Constitutional: Constitutional: Reports chills, Reports fatigue, Reports fever(s), Denies headache(s) and Denies weight loss Eyes: Eyes: Denies eye discharge and Denies irritation ENT: Reports Normal hearing present, Denies dysphagia, Denies dizziness and Denies headache(s) Cardiovascular: Cardiovascular: Denies chest pain, Denies leg edema and Denies dyspnea on exertion Respiratory: Respiratory: Denies cough and Denies dyspnea on exertion Gastrointestinal: Gastrointestinal: Reports abdominal pain, Denies change in bowel habits, Denies dysphagia, Denies heartburn, Reports diarrhea, Reports nausea and Reports vomiting Genitourinary: Genitourinary: Denies difficulty voiding and Denies dysuria Musculoskeletal: Musculoskeletal: Denies back pain and Denies arthralgias Integumentary/Breasts: Skin/Breast: Denies pruritus, Denies rash and Denies jaundice Neurologic: Reports Normal hearing present, Denies Abnormal speech present, Denies dizziness, Denies headache(s) and Denies seizure-like activity Psychiatric: Psychiatric: Denies anxiety, Denies depression and Denies panic attacks Endocrine: Endocrine: Denies cold intolerance, Reports fatigue, Denies flushing and Denies heat intolerance PMFSH Past Medical History Medical History Anxiety Asthma Cancer Crohn's colitis Crohn's disease Depression GERD (gastroesophageal reflux disease) Hemorrhagic cyst of ovary HTN (hypertension) Hyperlipidemia Iron deficiency anemia Kidney stones Migraine PTSD (post-traumatic stress disorder) Pulmonary embolism Recurrent major depression-severe Rheumatoid arthritis Sleep apnea Surgical History Surgical History History of colon resection Hx of colonoscopy (~10/2018) Hx of cystoscopy Hx of cystoscopy Hx of dilation and curettage Hx of endoscopy Social History Social History Household Members: None Housing: Apartment Do you presently have visiting nurse or other home services: No Alcohol intake: never Patient Tobacco Use Status: Never used Tobacco Second Hand Smoke Exposure: No Use of substances other than those prescribed or required for medical reasons: No Substance Use Type: Marijuana Advance Directives: No Advance Directives Date on File: 07/06/14 Patient : No service: No Current occupational status: disabled Sexual orientation: Straight/Heterosexual Meds Allergies Allergy/AdvReac Type Severity Reaction Status Date / Time aspirin [ASA] Allergy Intermediate RASH Verified 05/25/21 14:01 azathioprine [From IMURAN] Allergy Intermediate PANCREATIC Verified 05/25/21 14:01 INFLAMMATION ibuprofen [IBUPROFEN] Allergy Intermediate TOLD NOT Verified 05/25/21 14:01 TO TAKE levofloxacin [From LEVAQUIN] Allergy Mild YEAST Verified 05/25/21 14:01 INFECTIONS Active Medications: Current Medications Acetaminophen (Acetaminophen 325 Mg Tablet) 650 mg PO Q6H PRN PRN Reason: Pain, Mild (Pain Scale 1-3) Ondansetron HCl (Ondansetron Hcl 4 Mg/2 Ml Vial) 4 mg IVPUSH Q8H PRN PRN Reason: Nausea and Vomiting Pharmacy Consult (Consult Rx Perform Med Rec) 1 each MISCELLANE ONCE PRN PRN Reason: Consult order Sodium Chloride (0.9 % Sodium Chloride Flush 3 Ml Syringe) 3 ml IVFLUSH [facility] Home Medications Medication Instructions Recorded Confirmed Last Taken Type amitriptyline 25 mg tablet 2 tab PO BEDTIME 03/22/21 06/25/21 03/21/21 History clonazepam 1 mg tablet 1 tab PO BEDTIME PRN 03/22/21 06/25/21 03/21/21 History docusate sodium 100 mg capsule 1 cap PO BID 03/22/21 06/25/21 Unknown History doxazosin 2 mg tablet 1 tab PO BEDTIME 03/22/21 06/25/21 03/21/21 History ergocalciferol (vitamin D2) 1,250 1 cap PO WE 03/22/21 06/25/21 03/21/21 History mcg (50,000 unit) capsule methotrexate sodium 2.5 mg tablet 25 mg PO TU 03/22/21 06/25/21 03/20/21 History montelukast 10 mg tablet 1 tab PO BEDTIME 03/22/21 06/25/21 Unknown History multivitamin 1 tab PO QAM 03/22/21 06/25/21 Unknown History topiramate 100 mg tablet 1 tab PO BID 03/22/21 06/25/21 03/21/21 History vitamin B complex-folic acid 0.4 1 tab PO QAM 03/22/21 06/25/21 Unknown History mg tablet (B Complex 1 (with folic acid)) albuterol sulfate 1 amp INHALATION Q6H PRN 06/13/21 06/25/21 Unknown History albuterol sulfate 90 mcg/actuation 2 puff PO QID PRN 06/13/21 06/25/21 Unknown History aerosol inhaler (ProAir HFA) apixaban 5 mg tablet (Eliquis) 5 mg PO BID 06/13/21 06/25/21 Unknown History esomeprazole magnesium 20 mg 1 cap PO QAM 06/13/21 06/25/21 Unknown History capsule,delayed release acetaminophen 650 mg 1 tab PO Q6H PRN 06/25/21 06/25/21 Unknown History tablet,extended release (Arthritis Pain Relief (acetaminophen) ER) baclofen 10 mg tablet 1 tab PO TID PRN 06/25/21 06/25/21 Unknown History buspirone 5 mg tablet 1 tab PO DAILY 06/25/21 06/25/21 Unknown History calcium carbonate 300 mg (750 mg) 300 mg PO BID PRN 06/25/21 06/25/21 Unknown History chewable tablet (Tums E-X) calcium carbonate 600 mg (1,500 1 tab PO BID 06/25/21 06/25/21 Unknown History mg)-vitamin D3 400 unit tablet clonazepam 0.5 mg tablet 1 tab PO DAILY 06/25/21 06/25/21 Unknown History hydroxyzine HCl 25 mg tablet 1 - 2 tab PO 06/25/21 06/25/21 Unknown History lidocaine 4 % topical patch 1 patch TOPICAL DAILY PRN 06/25/21 06/25/21 Unknown History ustekinumab 90 mg/mL subcutaneous 90 mg SUBCUT Q4W 06/25/21 06/25/21 Unknown History syringe (Stelara) zolpidem 10 mg tablet 1 tab PO BEDTIME PRN 06/25/21 06/25/21 Unknown History Physical Exam Vital Signs: Vital Signs: Last Vital Signs Temp 99.1 F 06/25/21 09:41 Pulse 94 06/25/21 09:41 Resp 15 06/25/21 09:41 BP 107/56 L 06/25/21 09:41 Pulse Ox 95 06/25/21 09:41 Body Mass Index 36.3 Neuro: Cranial nerves: Yes Normal hearing present Speech: No Abnormal speech present Results Labs CBC & Chem 7: 06/25/21 03:31 06/25/21 03:31 Labs: Short CBC 06/25/21 Range/Units 03:31 WBC 14.1 H (4.8-10.8) X10*3/uL Hgb 10.6 L (12.0-16.0) g/dl Hct 32.9 L (37.0-47.0) % Plt Count 284 (160-400) X10*3/uL BMP 06/25/21 03:31 Sodium 137 Potassium 4.0 Chloride 107 Carbon Dioxide 20 L BUN 14 Creatinine 0.87 Calcium 8.8 Liver Function 06/25/21 Range/Units 03:31 Total Bilirubin 0.3 (0.0-1.0) mg/dL AST 28 (5-31) U/L ALT 30 (0-31) U/L Alkaline Phosphatase 93 (39-117) U/L Albumin 4.1 (3.5-5.0) g/dL Urine 06/25/21 Range/Units 03:51 Urine Color YELLOW Urine Appearance CLEAR Urine pH 8.0 (5.0-8.0) Ur Specific [place] 1.015 (1.005-1.025) Urine Protein NEG (NEG-TRACE) MG/DL Urine Glucose (UA) NEG (NEG) MG/DL Assessment and Plan (1) Intractable nausea and vomiting: Status: Acute (2) Crohn's disease: Status: Acute (3) Colon stricture: Status: Acute (4) Abdominal pain: Qualifiers: Abdominal location: right lower quadrant Qualified Code(s): R10.31 - Right lower quadrant pain Status: Acute 50 YF with RA, GERD, asthma, sleep apnea, iron def anemia, intermittent compliance with follow up appointments, anxiety and depression with Crohn's disease involving the left colon (and suspected jejunal involvement). Pt was diagnosed with Crohn's colitis 20 yrs ago and is status post sigmoid colectomy with colostomy in 2010, reversal of colostomy in 2011. She has failed treatment with multiple medications in the past due to lack of efficacy or side effects including Remicade, Humira, Cimzia, Entyvio, azathioprine caused pancreatitis. She recalls she had the best response with Humira which was stopped due to concern for MS. She was seen by Neurology at [facility] and was advised a repeat MRI scan of the brain. Pt was re-referred to [facility] Neurology and GI RN was informed that she has been discharged from Neurology due to multiple no-shows. She has been on Stelara every 8 weeks which had worked well for her in the past. Dose of Stelara was increased to every 4 weeks a year ago due to breakthrough symptoms and low trough levels. She has been treated with Prednisone intermittently for CD flares. Colonoscopy in 01/18/20 showed patchy erythema throughout the colon - surveillance biopsies were obtained. Focal area of ulcerations with a tight stricture at 18 to 20 cms and unable to p ass the colonoscope through the stricture. Stricture was dilated with a 12mm (26 F) CRE balloon and colonoscope was then advanced into the colon. Patchy erythema with focal ulcers in the distal rectum. Inflammation in the recto-sigmoid significantly improved from last year - severe left sided colitis with minimal inflammation in the remaining colon. Biopsies were negative for CMV. Patient was seen at [facility] IBD clinic for a 2nd opinion regarding treatment options and addition of methotrexate was advised. Patient was started on methotrexate 25 mg intramuscularly every week on 04/13/19 in the Oncology clinic. She was switched to p.o. methotrexate 50 mg once a week in Sep, 2019. She is also on budesonide 9 mg once daily. She continues to have intermittent flares requiring IV steroids. Pt was seen at [facility] [place] 05/03/20 and dose of MTX was increased to 25 mg PO (10 tab) every week from 5 or 6 tablets daily in March 2020. Pt states she is taking MTX 10 mg every week at present. Last Stelara injection was on 05/23/2021 - unclear if she had her Stelara injection in May - I will check with short stay Patient admitted with worsening abdominal pain, diarrhea and hematochezia. CRP was elevated at 2.87 in February, - I will recheck in the am. RECOMMENDATIONS: 1.? Agree with IV pain medications and IV steroids. 2.? Pt advised flexible sig in the am for dilation of sigmoid colon stricture - scheduled tomorrow at 7:30 am - Needs fleet enema x 2 for prep. 3.? Hold Xarelto.? Procedures Date of Service Date of Service: 06/25/21
--- NOTE | 2021-06-25 14:42 | PHA.MEDREC ---
Pharmacy Consult ? Medication Reconciliation Pharmacy has completed the medication reconciliation. List obtained from [facility] pt med blister pack, RX bottles and pt report
[2021-06-25] MEDS: Acetaminophen 325 MG TABLET 650 MG PO (16:25)
[2021-06-25] MEDS: 0.9 % Sodium Chloride Flush 3 ML SYRINGE IVFLUSH ×2 (16:26→23:09)
--- NOTE | 2021-06-25 16:28 | PC.NURSE ---
patient awake, c/o 9/10 diffuse sharp abd pain and nausea. no vomiting noted. abdomen distended, bowel sounds active x 4. medicated w/ prn tylenol and zofran per order.
[2021-06-25 18:01] LABS: UPreg QC Valid YES; Urine Pregnancy NEGATIVE (NEGATIVE)
--- NOTE | 2021-06-25 19:10 | PC.NURSE ---
Pt found wandering in the [place], requesting pain medication. This RN contacting the hospitalist as there are not any orders in for pain medication. Awaiting response.
--- NOTE | 2021-06-25 20:10 | PC.NURSE ---
This RN calling M/S to give report, M/S RN to call back.
--- NOTE | 2021-06-25 20:32 | PC.NURSE ---
Report given to med surg nurse.
[2021-06-25] MEDS: Zolpidem Tartrate 5 MG TABLET PO (22:53)
[2021-06-25] MEDS: Amitriptyline HCl 25 MG TABLET 50 MG PO (22:54)
[2021-06-25] MEDS: oxyCODONE HCl Immed Release 5 MG TABLET PO (22:56)
[2021-06-25] MEDS: Doxazosin Mesylate 2 MG TABLET PO (22:56)
[2021-06-26] VITALS (12 sets, daily range): BP systolic 84–126; BP diastolic 28–76; PULSE 83–114; RESP 16–20; TEMP 36.1–38.3; O2SAT 95–98
[2021-06-26] MEDS: Sodium Phosphate,Mono-Dibasic 133 ML ENEMA PR ×2 (06:19→07:00)
[2021-06-26 06:22] LABS: MANUAL DIFF FLAG NO
[2021-06-26 06:35] LABS: Basophils Absolute Auto 0.1 X10*3/uL (0.0-0.2); Basophils Percent Auto 0.5 % (0-2); Eosinophils Absolute Auto 0.2 X10*3/uL (0.0-0.4); Eosinophils Percent Auto 1.5 % (0-4); Hematocrit 35.5 % (37.0-47.0); Hemoglobin 11.3 g/dl (12.0-16.0); Imm Gran Abs Auto 0.05 X10*3/uL (0.00-0.03); Imm Gran Pct Auto 0.4 % (0.0-0.4); Lymphocytes Absolute Auto 2.3 X10*3/uL (1.2-4.9); Lymphocytes Percent Auto 17.8 % (20-40); Mean Corpuscular HGB Conc 31.8 g/dl (31.0-35.0); Mean Corpuscular Hemoglobin 27.7 pg (27.0-33.0); Mean Platelet Volume 10.9 fL (9.4-12.3); Monocytes Absolute Auto 1.5 X10*3/uL (0.1-1.2); Monocytes Percent Auto 11.4 % (2-11); Neutrophils Absolute Auto 8.67 x10*3/uL (2.0-8.3); Neutrophils Percent Auto 68.4 % (45-73); Platelet Count 287 X10*3/uL (160-400); Red Blood Count 4.08 X10*6/uL (4.20-5.50); Red Cell Distribution Width 18.3 % (11.0-16.0); White Blood Count 12.7 X10*3/uL (4.8-10.8)
[2021-06-26 06:50] LABS: Anion Gap 15 (12-20); Blood Urea Nitrogen 13 mg/dL (9-16); Carbon Dioxide 22 mmol/L (22-29); Chloride 104 mmol/L (96-108); Potassium 3.9 mmol/L (3.3-5.1); Sodium 137 mmol/L (135-145)
[2021-06-26 06:51] LABS: C Reactive Protein 13.41 mg/dL (< or = 0.50); Calcium 9.4 mg/dL (8.4-10.2); Estimated Glomerular Filt Rate > 60; Glucose Random 114 mg/dL (60-115)
--- NOTE | 2021-06-26 07:14 | HO.ANESPROP2 ---
[facility] Active Problems Active Problems: All Active Problems (Updated 06/25/21 @ 10:59 by Danielle Rucker NP) Normocytic anemia (Acute) Leukocytosis (leucocytosis) (Acute) Intractable nausea and vomiting (Acute) Vitamin D deficiency (Acute) Asthma (Acute) Chronic headache (Acute) Syncope, vasovagal (Acute) UTI (urinary tract infection) (Acute) Depression (Acute) Pulmonary emboli (Acute) Abdominal pain (Acute) Colon stricture (Acute) Crohn's disease (Acute) Depression (Acute) Past Medical History Medical History Anxiety Asthma Cancer Crohn's colitis Crohn's disease Depression GERD (gastroesophageal reflux disease) Hemorrhagic cyst of ovary HTN (hypertension) Hyperlipidemia Iron deficiency anemia Kidney stones Migraine PTSD (post-traumatic stress disorder) Pulmonary embolism Recurrent major depression-severe Rheumatoid arthritis Sleep apnea Surgical History Surgical History History of colon resection Hx of colonoscopy (~10/2018) Hx of cystoscopy Hx of cystoscopy Hx of dilation and curettage Hx of endoscopy Social History Social History Household Members: None Housing: Apartment Do you presently have visiting nurse or other home services: No Alcohol intake: never Patient Tobacco Use Status: Former Tobacco user Quit Date: 2001 Tobacco use type: Cigarette Years Smoked: 10 Second Hand Smoke Exposure: No Substance Use Type: Marijuana Advance Directives Date on File: 07/06/14 service: No Current occupational status: disabled Sexual orientation: Straight/Heterosexual Meds Allergies Allergy/AdvReac Type Severity Reaction Status Date / Time aspirin [ASA] Allergy Intermediate RASH Verified 05/25/21 14:01 azathioprine [From IMURAN] Allergy Intermediate PANCREATIC Verified 05/25/21 14:01 INFLAMMATION ibuprofen [IBUPROFEN] Allergy Intermediate TOLD NOT Verified 05/25/21 14:01 TO TAKE levofloxacin [From LEVAQUIN] Allergy Mild YEAST Verified 05/25/21 14:01 INFECTIONS Active Medications: Current Medications Acetaminophen (Acetaminophen 325 Mg Tablet) 650 mg PO Q6H PRN PRN Reason: Pain, Mild (Pain Scale 1-3) Last Admin: 06/25/21 16:25 Dose: 650 mg Documented by: Albuterol Sulfate (Albuterol Sulfate (0.083%) 2.5 Mg/3 Ml Vial.Neb) 2.5 mg INHALE ONCE PRN PRN Reason: Shortness of Breath/Wheezing Amitriptyline HCl (Amitriptyline Hcl 25 Mg Tablet) 50 mg PO BEDTIME [facility] Last Admin: 06/25/21 22:54 Dose: 50 mg Documented by: Apixaban (Apixaban 5 Mg Tablet) 5 mg PO BID [facility] Last Admin: 06/25/21 22:58 Dose: Not Given Documented by: Buspirone HCl (Buspirone Hcl 5 Mg Tablet) 5 mg PO DAILY [facility] Clonazepam (Clonazepam 0.5 Mg Tablet) 0.5 mg PO DAILY [facility] Doxazosin Mesylate (Doxazosin Mesylate 2 Mg Tablet) 2 mg PO BEDTIME [facility]; Protocol Last Admin: 06/25/21 22:56 Dose: 2 mg Documented by: Lactated Ringer's (Lr) 1,000 mls @ 100 mls/hr IVCONT .Q10H [facility] Mirtazapine (Mirtazapine 15 Mg Tablet) 15 mg PO BEDTIME [facility] Morphine Sulfate (Morphine Sulfate 4 Mg/Ml Cartridge) 4 mg IVPUSH Q4H PRN; Protocol PRN Reason: Pain, Severe (Pain Scale 7-10) Last Admin: 06/25/21 19:58 Dose: 4 mg Documented by: Omeprazole (Omeprazole 20 Mg Capsule.) 20 mg PO DAILY@0630 [facility] Last Admin: 06/26/21 05:57 Dose: Not Given Documented by: Ondansetron HCl (Ondansetron Hcl 4 Mg/2 Ml Vial) 4 mg IVPUSH Q8H PRN PRN Reason: Nausea and Vomiting Last Admin: 06/25/21 16:25 Dose: 4 mg Documented by: Oxycodone HCl (Oxycodone Hcl Immed Release 5 Mg Tablet) 5 mg PO Q4H PRN PRN Reason: Pain, Severe (Pain Scale 7-10) Last Admin: 06/25/21 22:56 Dose: 5 mg Documented by: Paroxetine HCl (Paroxetine Hcl 20 Mg Tablet) 20 mg PO DAILY [facility] Pharmacy Consult (Consult Rx Perform Med Rec) 1 each MISCELLANE ONCE PRN PRN Reason: Consult order Pharmacy Consult (Consult Rx Perform Med Rec) 1 each MISCELLANE ONCE PRN PRN Reason: Consult order Risperidone (Risperidone 1 Mg Tablet) 1 mg PO BID [facility] Sodium Biphosphate/Sodium Phosphate (Sodium Phosphate,[place]-Dibasic 133 Ml Enema) 133 ml MS ONCE PRN PRN Reason: Pre-Op Surgical Prep Last Admin: 06/26/21 06:19 Dose: 133 ml Documented by: Sodium Biphosphate/Sodium Phosphate (Sodium Phosphate,[place]-Dibasic 133 Ml Enema) 133 ml MS ONCE PRN PRN Reason: Pre-Op Surgical Prep Sodium Chloride (0.9 % Sodium Chloride Flush 3 Ml Syringe) 3 ml IVFLUSH QSHIFT [facility] Last Admin: 06/25/21 23:09 Dose: 3 ml Documented by: Zolpidem Tartrate (Zolpidem Tartrate 5 Mg Tablet) 5 mg PO BEDTIME PRN PRN Reason: Sleep Last Admin: 06/25/21 22:53 Dose: 5 mg Documented by: Home Medications Medication Instructions Recorded Confirmed Last Taken Type amitriptyline 25 mg tablet 2 tab PO BEDTIME 03/22/21 06/25/21 03/21/21 History clonazepam 1 mg tablet 1 tab PO BEDTIME PRN 03/22/21 06/25/21 03/21/21 History docusate sodium 100 mg capsule 1 cap PO BID 03/22/21 06/25/21 Unknown History doxazosin 2 mg tablet 1 tab PO BEDTIME 03/22/21 06/25/21 03/21/21 History ergocalciferol (vitamin D2) 1,250 1 cap PO WE 03/22/21 06/25/21 03/21/21 History mcg (50,000 unit) capsule methotrexate sodium 2.5 mg tablet 25 mg PO TU 03/22/21 06/25/21 03/20/21 History montelukast 10 mg tablet 1 tab PO BEDTIME 03/22/21 06/25/21 Unknown History multivitamin 1 tab PO QAM 03/22/21 06/25/21 Unknown History topiramate 100 mg tablet 1 tab PO BID 03/22/21 06/25/21 03/21/21 History vitamin B complex-folic acid 0.4 1 tab PO QAM 03/22/21 06/25/21 Unknown History mg tablet (B Complex 1 (with folic acid)) albuterol sulfate 1 amp INHALATION Q6H PRN 06/13/21 06/25/21 Unknown History albuterol sulfate 90 mcg/actuation 2 puff PO QID PRN 06/13/21 06/25/21 Unknown History aerosol inhaler (ProAir HFA) apixaban 5 mg tablet (Eliquis) 5 mg PO BID 06/13/21 06/25/21 Unknown History esomeprazole magnesium 20 mg 1 cap PO QAM 06/13/21 06/25/21 Unknown History capsule,delayed release acetaminophen 650 mg 1 tab PO Q6H PRN 06/25/21 06/25/21 Unknown History tablet,extended release (Arthritis Pain Relief (acetaminophen) ER) baclofen 10 mg tablet 1 tab PO TID PRN 06/25/21 06/25/21 Unknown History buspirone 5 mg tablet 1 tab PO DAILY 06/25/21 06/25/21 Unknown History calcium carbonate 300 mg (750 mg) 300 mg PO BID PRN 06/25/21 06/25/21 Unknown History chewable tablet (Tums E-X) calcium carbonate 600 mg (1,500 1 tab PO BID 06/25/21 06/25/21 Unknown History mg)-vitamin D3 400 unit tablet clonazepam 0.5 mg tablet 1 tab PO DAILY 06/25/21 06/25/21 Unknown History hydroxyzine HCl 25 mg tablet 1 - 2 tab PO 06/25/21 06/25/21 Unknown History lidocaine 4 % topical patch 1 patch TOPICAL DAILY PRN 06/25/21 06/25/21 Unknown History ustekinumab 90 mg/mL subcutaneous 90 mg SUBCUT Q4W 06/25/21 06/25/21 Unknown History syringe (Stelara) zolpidem 10 mg tablet 1 tab PO BEDTIME PRN 06/25/21 06/25/21 Unknown History Exam Exam Date and Time: June 26, 2021 0714 Height,Weight and Vital Signs: Height 5 ft 3 in Weight 95.3 kg Last Vital Signs Temp 97.6 F 06/26/21 06:51 Pulse 91 06/26/21 06:51 Resp 16 06/26/21 06:51 BP 94/49 L 06/26/21 06:51 Pulse Ox 98 06/26/21 06:51 Pertinent Lab Results Pertinent Lab Results: Laboratory Tests 06/25/21 06/25/21 06/25/21 03:31 03:31 03:31 WBC 14.1 H RBC 3.81 L Hgb 10.6 L Hct 32.9 L MCV 86.4 MCH 27.8 MCHC 32.2 RDW 17.5 H Plt Count 284 MPV 11.1 Immature Gran % (Auto) 0.4 Neut % (Auto) 78.2 H Lymph % (Auto) 13.2 L [place] % (Auto) 6.9 Eos % (Auto) 0.9 Baso % (Auto) 0.4 Lymph # (Auto) 1.9 [place] # (Auto) 1.0 Eos # (Auto) 0.1 Baso # (Auto) 0.1 Abs Immat Gran (auto) 0.05 H Absolute Neuts (auto) 10.98 H Absolute Nucleated RBC 0.000 Nucleated RBC % (auto) 0.0 PT INR Sodium 137 Potassium 4.0 Chloride 107 Carbon Dioxide 20 L Anion Gap 14 BUN 14 Creatinine 0.87 Estim Creat Clear Calc 83.8 Estimated GFR > 60 Random Glucose 110 Lactic Acid 1.2 Calcium 8.8 Total Bilirubin 0.3 AST 28 ALT 30 Alkaline Phosphatase 93 C-Reactive Protein Total Protein 7.1 Albumin 4.1 Beta HCG, Quant Urine Color Urine Appearance Urine pH Ur Specific [place] Urine Protein Urine Glucose (UA) Urine Ketones Urine Blood Urine Nitrite Ur Leukocyte Esterase Urine Test COVID-19 (SHAAN) COVID-[place] 06/25/21 06/25/21 06/25/21 03:51 04:11 04:11 WBC RBC Hgb Hct MCV MCH MCHC RDW Plt Count MPV Immature Gran % (Auto) Neut % (Auto) Lymph % (Auto) [place] % (Auto) Eos % (Auto) Baso % (Auto) Lymph # (Auto) [place] # (Auto) Eos # (Auto) Baso # (Auto) Abs Immat Gran (auto) Absolute Neuts (auto) Absolute Nucleated RBC Nucleated RBC % (auto) PT 12.7 INR 1.1 Sodium Potassium Chloride Carbon Dioxide Anion Gap BUN Creatinine Estim Creat Clear Calc Estimated GFR Random Glucose Lactic Acid Calcium Total Bilirubin AST ALT Alkaline Phosphatase C-Reactive Protein Total Protein Albumin Beta HCG, Quant Urine Color YELLOW Urine Appearance CLEAR Urine pH 8.0 Ur Specific [place] 1.015 Urine Protein NEG Urine Glucose (UA) NEG Urine Ketones NEG Urine Blood NEG Urine Nitrite NEG Ur Leukocyte Esterase NEG Urine Test COVID-19 (SHAAN) Negative COVID-[place] Com See Note 06/25/21 06/25/21 06/26/21 17:27 Unknown 06:09 WBC 12.7 H RBC 4.08 L Hgb 11.3 L Hct 35.5 L MCV 87.0 MCH 27.7 MCHC 31.8 RDW 18.3 H Plt Count 287 MPV 10.9 Immature Gran % (Auto) 0.4 Neut % (Auto) 68.4 Lymph % (Auto) 17.8 L [place] % (Auto) 11.4 H Eos % (Auto) 1.5 Baso % (Auto) 0.5 Lymph # (Auto) 2.3 [place] # (Auto) 1.5 H Eos # (Auto) 0.2 Baso # (Auto) 0.1 Abs Immat Gran (auto) 0.05 H Absolute Neuts (auto) 8.67 H Absolute Nucleated RBC 0.000 Nucleated RBC % (auto) 0.0 PT INR Sodium Potassium Chloride Carbon Dioxide Anion Gap BUN Creatinine Estim Creat Clear Calc Estimated GFR Random Glucose Lactic Acid Calcium Total Bilirubin AST ALT Alkaline Phosphatase C-Reactive Protein Total Protein Albumin Beta HCG, Quant Cancelled Urine Color Urine Appearance Urine pH Ur Specific [place] Urine Protein Urine Glucose (UA) Urine Ketones Urine Blood Urine Nitrite Ur Leukocyte Esterase Urine Test NEGATIVE COVID-19 (SHAAN) COVID-19 Clin Com 06/26/21 06:09 WBC RBC Hgb Hct MCV MCH MCHC RDW Plt Count MPV Immature Gran % (Auto) Neut % (Auto) Lymph % (Auto) [place] % (Auto) Eos % (Auto) Baso % (Auto) Lymph # (Auto) [place] # (Auto) Eos # (Auto) Baso # (Auto) Abs Immat Gran (auto) Absolute Neuts (auto) Absolute Nucleated RBC Nucleated RBC % (auto) PT INR Sodium 137 Potassium 3.9 Chloride 104 Carbon Dioxide 22 Anion Gap 15 BUN 13 Creatinine 0.88 Estim Creat Clear Calc 84.0 Estimated GFR > 60 Random Glucose 114 Lactic Acid Calcium 9.4 D Total Bilirubin AST ALT Alkaline Phosphatase C-Reactive Protein 13.41 H Total Protein Albumin Beta HCG, Quant Urine Color Urine Appearance Urine pH Ur Specific [place] Urine Protein Urine Glucose (UA) Urine Ketones Urine Blood Urine Nitrite Ur Leukocyte Esterase Urine Test COVID-19 (SHAAN) COVID-19 Clin Com Airway Mallampati Class: III TM Dist: >3cm Neck ROM: Full
--- NOTE | 2021-06-26 07:18 | PC.NURSE ---
Addendum entered by Maryam Avila 06/26/21 07:21: Dr. Palafox aware. Original Note: Fleets x2 administered pre-op. Bowel output assessed by this RN. Output yellow liquid with small brown granules.
--- NOTE | 2021-06-26 07:20 | PC.NURSE ---
Patients BP low in pre-op, 94/49 and 94/54. Patient asymptomatic. Dr. Gerhard rodriguez.
--- NOTE | 2021-06-26 07:29 | PC.NURSE ---
Report given to short stay about 0540, pt to be brought down to short stay 0630. Order for 2 enemas this morning, per short stay give one enema prior to sending patient down to short stay. Enema administered 06, patient in bathroom with bowel movement, liquid yellow/brown. 06; Patient off floor, brought down to short stay by nursing aid.
[2021-06-26] MEDS: Lactated Ringers 1,000 ML 100 ML IVCONT ×2 (07:46→10:36)
--- NOTE | 2021-06-26 08:09 | P.OP_ITS ---
Operative Note Operative Note Date of Service: 06/26/21 Narrative: Pre-op diagnosis:?Crohn's colitis with sigmoid colon stricture Post-op diagnosis:?same Procedure:? FLEXIBLE SIGMOIDOSCOPY TILL 35 CMS WITH BIOPSIES AND BALLOON DILATION OF SIGMOID STRICTURE Consent: Indications for the procedure and potential complications of bleeding, perforation, reaction to medications and missed diagnosis were discussed with the patient and informed consent was obtained. Instrument: Olympus PCF H 190 L variable stiffness pediatric colonoscope and Olympus GIF 190 upper endoscope Monitoring: Vital signs and clinical assessment, intermittent blood pressure monitoring, continuous EKG monitoring, Pulse oximetry and Carbon Dioxide monitoring were done throughout the procedure. Procedure: The patient was placed in the left lateral decubitis position and pre-procedure medications were administered. After a digital rectal examination of the ano-rectum, the video colonoscope was inserted into the rectum and advanced through the colon to the sigmoid colon at 15 cms. It was not possible to advance further due to tight stricture in the SC. The colonoscope was removed and an upper? endoscope was advanced through the stricture to 35 cms. Endoscope was slowly withdrawn in a retrograde panoramic fashion and the colon mucosa was carefully examined including a retroflexed view of the rectum. Findings and interventions are described below. Procedure Difficulty: Without difficulty Findings: Sigmoid Colon:? Focal tight stricture from 15 to 18 cms with ulcerations. Stricture was dilated with a 10 and 11 mm CRE balloon x 60 sec at each level. It was not possible to advanced the colonoscope through the stricture. The colonoscope was removed and a mid-size upper endoscope was advanced with mild resistance through the stricture.? Balloon dilation was performed with a 10 and 11 mm CRE balloon x 60 seconds at each level. Biopsies were obtained from the stricture Rectum:? Normal Ano-rectum: Dinorah-anal skin tags Colon preparation: ? Fair to poor with liquid and semi solid stools in the SC above the stricture Impression and Post Procedure Diagnosis: Flexible Sigmoidoscopy Findings: Focal tight stricture from 15 to 18 cms with ulcerations. Stricture was dilated with a 10 and 11 mm (33 F) CRE balloon x 60 sec at each level. Biopsies were obtained from the stricture Plan: Await pathology results. Start a full liquid diet and advance diet as tolerated. Patient to schedule a FU appointment in the GI Clinic withOlu Palafox M.D. Flexible sigmoidoscopy with repeat dilation of sigmoid colon stricture in 3-4 weeks. Surgeon:?Libby Palafox MD Anesthesia:?MAC (Ann Prasad CRNA) Was an Anthropology And Archeology Instructor used for this Procedure?:?Yes Anthropology And Archeology Instructor:?Imani [place] Estimated blood loss (mL):?0 Pathology:?other (A. sigmoid colon at 35 cm biopsies? B. sigmoid stricture biopsies) Condition:?stable Disposition:?PACU
[2021-06-26] MEDS: Morphine Sulfate 4 MG/ML CARTRIDGE IVPUSH ×2 (10:32→15:56)
[2021-06-26] MEDS: clonazePAM 0.5 MG TABLET PO (11:24)
[2021-06-26] MEDS: Apixaban 5 MG TABLET PO ×2 (11:24→21:20)
[2021-06-26] MEDS: risperiDONE 1 MG TABLET PO ×2 (11:24→21:20)
[2021-06-26] MEDS: PARoxetine HCL 20 MG TABLET PO (11:24)
[2021-06-26] MEDS: busPIRone HCl 5 MG TABLET PO (11:24)
--- NOTE | 2021-06-26 12:29 | MHC.CM.PN ---
FAVIAN 06/26/21 FEMALE 50 DX N/V INTRACTABLE S/P ENDOSCOPY + COLONOSCOPY THIS AM. SHE LIVES ALONE. ASSISTANCE FOR ALL ADLS. SHE USES A CANE AND A WALKER. DAILY [facility]MENT T[facility]ER [facility] ARE IN PLACE. [facility] W RESUMPTION OF [employer]. THE PATIENT HAS ARRANGED FOR FAMILY TRANSPORTATION TO HOME. PER MD ROUNDS MAY DC LATER TODAY OR TOMORROW.
[2021-06-26] MEDS: oxyCODONE HCl Immed Release 5 MG TABLET PO (13:33)
--- NOTE | 2021-06-26 15:02 | P.PNIM_ITS ---
Progress Note: A&P (1) Intractable nausea and vomiting: Status: Acute (2) Abdominal pain: Status: Acute (3) Colon stricture: Status: Acute Assessment and Plan: 50 year old women assigned to observation for intractable nausea and vomiting and abdominal pain Abdominal pain with intractable nausea and vomiting IV fluids zofran pain management supportive care Status post flexible sigmoidoscopy today with findings of moderate diverticulosis, hemorrhoids, polyp removed, stricture dilation, she has outpatient follow-up with GI pathology results are pending Hx of DVT continue apixaban Mental health continue home medications DISPO dc when abdominal pain has resolved DVT prophylaxis with xarelto Attending Dr. Kaplan Full code Quality Subjective Subjective Date of Service: 06/26/21 Review of Systems Follow up Nausea and vomiting, is status post flexible sig Still with some diffuse abdominal pain, no nausea or vomiting Physical Exam Vital Signs: Vital Signs: Last Vital Signs Temp 98.2 F 06/26/21 11:37 Pulse 83 06/26/21 11:37 Resp 18 06/26/21 11:37 BP 121/64 06/26/21 11:37 Pulse Ox 96 06/26/21 11:37 Body Mass Index 37.2 Appearing in no acute distress lung sounds are clear to auscultation heart regular rate rhythm, clear S1, S2 positive bowel sounds, abdomen tender neuro patient is alert x3, no focal deficits Objective Data Current Medications Acetaminophen (Acetaminophen 325 Mg Tablet) 650 mg PO Q6H PRN PRN Reason: Pain, Mild (Pain Scale 1-3) Last Admin: 06/25/21 16:25 Dose: 650 mg Documented by: Albuterol Sulfate (Albuterol Sulfate (0.083%) 2.5 Mg/3 Ml Vial.Neb) 2.5 mg INHALE ONCE PRN PRN Reason: Shortness of Breath/Wheezing Amitriptyline HCl (Amitriptyline Hcl 25 Mg Tablet) 50 mg PO BEDTIME [facility] Last Admin: 06/25/21 22:54 Dose: 50 mg Documented by: Apixaban (Apixaban 5 Mg Tablet) 5 mg PO BID [facility] Last Admin: 06/26/21 11:24 Dose: 5 mg Documented by: Buspirone HCl (Buspirone Hcl 5 Mg Tablet) 5 mg PO DAILY [facility] Last Admin: 06/26/21 11:24 Dose: 5 mg Documented by: Clonazepam (Clonazepam 0.5 Mg Tablet) 0.5 mg PO DAILY [facility] Last Admin: 06/26/21 11:24 Dose: 0.5 mg Documented by: Doxazosin Mesylate (Doxazosin Mesylate 2 Mg Tablet) 2 mg PO BEDTIME [facility]; Protocol Last Admin: 06/25/21 22:56 Dose: 2 mg Documented by: Lactated Ringer's (Lr) 1,000 mls @ 100 mls/hr IVCONT .Q10H [facility] Last Admin: 06/26/21 10:36 Dose: 100 mls/hr Documented by: Lactated Ringer's (Lr) 1,000 mls @ 100 mls/hr IVCONT .Q10H [facility] Last Admin: 06/26/21 07:48 Dose: Not Given Documented by: Mirtazapine (Mirtazapine 15 Mg Tablet) 15 mg PO BEDTIME [facility] Morphine Sulfate (Morphine Sulfate 4 Mg/Ml Cartridge) 4 mg IVPUSH Q4H PRN; Protocol PRN Reason: Pain, Severe (Pain Scale 7-10) Last Admin: 06/26/21 10:32 Dose: 4 mg Documented by: Omeprazole (Omeprazole 20 Mg Capsule.Dr) 20 mg PO DAILY@0630 [facility] Last Admin: 06/26/21 05:57 Dose: Not Given Documented by: Ondansetron HCl (Ondansetron Hcl 4 Mg/2 Ml Vial) 4 mg IVPUSH Q8H PRN PRN Reason: Nausea and Vomiting Last Admin: 06/25/21 16:25 Dose: 4 mg Documented by: Oxycodone HCl (Oxycodone Hcl Immed Release 5 Mg Tablet) 5 mg PO Q4H PRN PRN Reason: Pain, Severe (Pain Scale 7-10) Last Admin: 06/26/21 13:33 Dose: 5 mg Documented by: Paroxetine HCl (Paroxetine Hcl 20 Mg Tablet) 20 mg PO DAILY [facility] Last Admin: 06/26/21 11:24 Dose: 20 mg Documented by: Pharmacy Consult (Consult Rx Perform Med Rec) 1 each MISCELLANE ONCE PRN PRN Reason: Consult order Pharmacy Consult (Consult Rx Perform Med Rec) 1 each MISCELLANE ONCE PRN PRN Reason: Consult order Risperidone (Risperidone 1 Mg Tablet) 1 mg PO BID [facility] Last Admin: 06/26/21 11:24 Dose: 1 mg Documented by: Sodium Biphosphate/Sodium Phosphate (Sodium Phosphate,[place]-Dibasic 133 Ml Enema) 133 ml ID ONCE PRN PRN Reason: Pre-Op Surgical Prep Last Admin: 06/26/21 06:19 Dose: 133 ml Documented by: Sodium Biphosphate/Sodium Phosphate (Sodium Phosphate,[place]-Dibasic 133 Ml Enema) 133 ml ID ONCE PRN PRN Reason: Pre-Op Surgical Prep Sodium Biphosphate/Sodium Phosphate (Sodium Phosphate,[place]-Dibasic 133 Ml Enema) 133 ml ID ONCE PRN PRN Reason: Poor Colonoscopy Prep Results Last Admin: 06/26/21 07:00 Dose: 133 ml Documented by: Sodium Chloride (0.9 % Sodium Chloride Flush 3 Ml Syringe) 3 ml IVFLUSH QSHIFT [place] Last Admin: 06/26/21 10:58 Dose: Not Given Documented by: Zolpidem Tartrate (Zolpidem Tartrate 5 Mg Tablet) 5 mg PO BEDTIME PRN PRN Reason: Sleep Last Admin: 06/25/21 22:53 Dose: 5 mg Documented by: Labs CBC & Chem 7: 06/26/21 06:09 06/26/21 06:09 Labs: Laboratory Results - last 24 hr 06/25/21 06/25/21 06/26/21 17:27 Unknown 06:09 MCV 87.0 MCH 27.7 MCHC 31.8 RDW 18.3 H Plt Count 287 MPV 10.9 Immature Gran % (Auto) 0.4 Neut % (Auto) 68.4 Lymph % (Auto) 17.8 L [place] % (Auto) 11.4 H Eos % (Auto) 1.5 Baso % (Auto) 0.5 Lymph # (Auto) 2.3 [place] # (Auto) 1.5 H Eos # (Auto) 0.2 Baso # (Auto) 0.1 Abs Immat Gran (auto) 0.05 H Absolute Neuts (auto) 8.67 H Absolute Nucleated RBC 0.000 Nucleated RBC % (auto) 0.0 Anion Gap Estim Creat Clear Calc Estimated GFR Random Glucose Calcium C-Reactive Protein Beta HCG, Quant Cancelled Urine Test NEGATIVE 06/26/21 06:09 MCV MCH MCHC RDW Plt Count MPV Immature Gran % (Auto) Neut % (Auto) Lymph % (Auto) [place] % (Auto) Eos % (Auto) Baso % (Auto) Lymph # (Auto) [place] # (Auto) Eos # (Auto) Baso # (Auto) Abs Immat Gran (auto) Absolute Neuts (auto) Absolute Nucleated RBC Nucleated RBC % (auto) Anion Gap 15 Estim Creat Clear Calc 84.0 Estimated GFR > 60 Random Glucose 114 Calcium 9.4 D C-Reactive Protein 13.41 H Beta HCG, Quant Urine Test Microbiology Microbiology Results: Microbiology 06/25/21 03:51 Blood - Venous Blood Culture - Preliminary No growth after 24 hours. 06/25/21 03:31 Blood - Venous Blood Culture - Preliminary No growth after 24 hours. Quality Stroke Does the patient have a stroke diagnosis?: No VTE Prior VTE?: No VTE Risk Level:: Medical - moderate - high VTE Device Contraindication: N/A - Device Ordered VTE Drug Contraindication: Treatment Not Indicated
[2021-06-26] MEDS: Doxazosin Mesylate 2 MG TABLET PO (21:19)
[2021-06-26] MEDS: Amitriptyline HCl 25 MG TABLET 50 MG PO (21:20)
[2021-06-26] MEDS: Mirtazapine 15 MG TABLET PO (21:20)
[2021-06-27] MEDS: Acetaminophen 325 MG TABLET 650 MG PO (00:45)
[2021-06-27] MEDS: Morphine Sulfate 4 MG/ML CARTRIDGE IVPUSH ×2 (00:45→13:26)
[2021-06-27] MEDS: Lactated Ringers 1,000 ML 100 ML IVCONT ×2 (00:50→12:47)
[2021-06-27] MEDS: Piperacillin Sodium/Tazobactam 3.375 GM in 0.9 % Sodium Chloride 50 ML IV ×3 (01:34→12:44)
[2021-06-27 02:23] LABS: Lactic Acid 0.9 mmol/L (0.5-2.0)
[2021-06-27 03:47] VITALS: BP 108/66; PULSE 83; RESP 16; TEMP 36.3; O2SAT 93
--- NOTE | 2021-06-27 05:49 | PM.EVENT ---
Event Note Date of Service: 06/27/21 Event Note: pt developed fever overnight. labs show leukocytosis. normal LA. CXR showing consolidation pt started on ceftriaxone and azithromycin blood cultures collected
[2021-06-27] MEDS: Omeprazole 20 MG CAPSULE.DR PO (06:06)
[2021-06-27] MEDS: cefTRIAXone sodium 1 GM in 0.9 % Sodium Chloride 50 ML IV (06:06)
[2021-06-27] MEDS: Azithromycin 500 MG in 0.9 % Sodium Chloride 250 ML 125 MG IV (07:07)
[2021-06-27 07:51] VITALS: BP 124/70; PULSE 81; RESP 16; TEMP 36; O2SAT 99
[2021-06-27] MEDS: risperiDONE 1 MG TABLET PO (08:50)
[2021-06-27] MEDS: Apixaban 5 MG TABLET PO (08:50)
[2021-06-27] MEDS: clonazePAM 0.5 MG TABLET PO (08:50)
[2021-06-27] MEDS: busPIRone HCl 5 MG TABLET PO (08:50)
[2021-06-27] MEDS: PARoxetine HCL 20 MG TABLET PO (08:50)
[2021-06-27] MEDS: oxyCODONE HCl Immed Release 5 MG TABLET PO (09:06)
[2021-06-27 09:10] LABS: Appearance Urine CLEAR; Color Urine YELLOW; Glucose Urine UA NEG (NEG); Leukocyte Esterase Urine NEG (NEG); Nitrite Urine NEG (NEG); Urine Blood NEG (NEG); Urine Ketones NEG (NEG); Urine Protein NEG (NEG-TRACE)
--- NOTE | 2021-06-27 10:26 | P.DS_ITS ---
DS: Providers Provider Date of Service: 06/27/21 Date of admission: 06/25/21 10:54 Primary care physician: Leesa Wasserman MD DS: Diagnosis Discharge Diagnosis (1) Intractable nausea and vomiting: Status: Acute (2) Abdominal pain: Status: Acute (3) Colon stricture: Status: Acute DS: Summary Hospital Course Hospital Course: Chief Complaint: Abdominal pain 50 year old? women presenting with diffuse abd pain that started several days ago. She reported chills at home along with diarrhea. She has a hx of crohns disease and gets ocassional bouts of nausea and vomiting and abd pain. Her vitals have been stable, labs within acceptable limits other than elevated WBC likely secondary to vomiting Hospital course: Abdominal pain, CT showed here is persistent juxtaanastomotic colonic wall thickening, associated with a chronic stricture, with mild surrounding fat stranding favored to represent cicatrization although mild inflammation may be contributing. No associated obstruction. She was seen by GI and underwent ?FLEXIBLE SIGMOIDOSCOPY TILL 35 CMS WITH BIOPSIES AND BALLOON DILATION OF SIGMOID STRICTURE by Dr. Palafox on 06/26 and seem doing better since, her diet has been advanced and /Pneumonia--likely aspiration type--on second day of hospitalization she developped a temp of 101 and chest xray showed Subtle patchy consolidation at t he left lung base which may correspond to pneumonia or aspiration, she was started on Ceftriaxone and Azithromycin, fever has resolved, there is no hypoxia or tachycardia, lactic acid was normal. Will treat with Augmentin for 7 days. Negative covid on 06/25 Time Spent with Patient Time attestation: Total time spent providing and/or coordinating discharge services: Discharge coordination time: Greater than 30 minutes Quality: Stroke Does the patient have a stroke diagnosis?: No Physical Exam Vital Signs: Vital Signs: Last Vital Signs Temp 96.8 F 06/27/21 07:51 Pulse 81 06/27/21 07:51 Resp 16 06/27/21 07:51 BP 124/70 06/27/21 07:51 Pulse Ox 99 06/27/21 07:51 Body Mass Index 37.2 DS: Data Data Completed and Pending Completed studies during hospitalization [Text1]: Procedures Dilation of Sigmoid Colon, Via Natural or Artificial Opening Endoscopic (03/01/21) Excision of Ascending Colon, Via Natural or Artificial Opening Endoscopic, Diagnostic (03/01/21) Excision of Cecum, Via Natural or Artificial Opening Endoscopic, Diagnostic (03/01/21) Excision of Descending Colon, Via Natural or Artificial Opening Endoscopic, Diagnostic (03/01/21) Excision of Duodenum, Via Natural or Artificial Opening Endoscopic, Diagnostic (03/01/21) Excision of Rectum, Via Natural or Artificial Opening Endoscopic (03/01/21) Excision of Sigmoid Colon, Via Natural or Artificial Opening Endoscopic, Diagnostic (03/01/21) Excision of Stomach, Pylorus, Via Natural or Artificial Opening Endoscopic, Diagnostic (03/01/21) Excision of Transverse Colon, Via Natural or Artificial Opening Endoscopic, Diagnostic (03/01/21) Extraction of Esophagus, Via Natural or Artificial Opening Endoscopic, Diagnosti c (03/01/21) Pending studies at discharge: Pending at discharge 06/26/21 08:42 Surgical [PTH] Routine Labs on day of discharge: Laboratory Results - last 24 hr 06/27/21 06/27/21 01:59 09:01 Lactic Acid 0.9 Urine Color YELLOW Urine Appearance CLEAR Urine pH 6.0 Ur Specific [place] 1.010 Urine Protein NEG Urine Glucose (UA) NEG Urine Ketones NEG Urine Blood NEG Urine Nitrite NEG Ur Leukocyte Esterase NEG Preliminary micro results at discharge 06/25/21 03:51 Blood Culture - Preliminary Blood - Venous No growth after 48 hours. 06/25/21 03:31 Blood Culture - Preliminary Blood - Venous No growth after 48 hours. Discharge Plan Discharge Anticipated Discharge Date/Time: 06/27/21 14:27 Patient Disposition: Home, Self-Care Discharge Diagnosis: colon stricture from crohn's Referrals: Leesa Rapp MD [Primary Care Provider] - 1 Week Discharge Medications: New oxycodone 5 mg tablet 5 mg PO Q6H PRN (Reason: pain (scale score 7-10)) Qty: 14 RF: 0 Continued multivitamin Tablet 1 tab PO QAM RF: 0 clonazepam 1 mg tablet 1 tab PO BEDTIME PRN (Reason: Sleep) RF: 0 amitriptyline 25 mg tablet 2 tab PO BEDTIME RF: 0 methotrexate sodium 2.5 mg tablet 25 mg PO TU RF: 0 docusate sodium 100 mg capsule 1 cap PO BID RF: 0 montelukast 10 mg tablet 1 tab PO BEDTIME RF: 0 ergocalciferol (vitamin D2) 1,250 mcg (50,000 unit) capsule 1 cap PO WE RF: 0 topiramate 100 mg tablet 1 tab PO BID RF: 0 vitamin B complex-folic acid [B Complex 1 (with folic acid)] 0.4 mg tablet 1 tab PO QAM RF: 0 doxazosin 2 mg tablet 1 tab PO BEDTIME RF: 0 paroxetine HCl 20 mg Tablet 20 mg PO DAILY Qty: 30 RF: 0 mirtazapine 15 mg Tablet 15 mg PO BEDTIME Qty: 30 RF: 0 risperidone 1 mg Tablet 1 mg PO BID Qty: 60 RF: 0 albuterol sulfate 2.5 mg /3 mL (0.083 %) solution for nebulization 1 amp inhalation Q6H PRN (Reason: Wheezing) RF: 0 Eliquis 5 mg tablet 5 mg PO BID RF: 0 albuterol sulfate [ProAir HFA] 90 mcg/actuation HFA aerosol inhaler 2 puff PO QID PRN (Reason: Dyspnea) RF: 0 esomeprazole magnesium 20 mg capsule,delayed release(DR/EC) 1 cap PO QAM RF: 0 clonazepam 0.5 mg tablet 1 tab PO DAILY RF: 0 baclofen 10 mg tablet 1 tab PO TID PRN (Reason: muscle spasm) RF: 0 hydroxyzine HCl 25 mg tablet 1 - 2 tab PO RF: 0 Stelara 90 mg/mL syringe 90 mg subcut Q4W RF: 0 calcium carbonate-vitamin D3 600 mg(1,500mg) -400 unit tablet 1 tab PO BID RF: 0 buspirone 5 mg tablet 1 tab PO DAILY RF: 0 lidocaine 4 % Adhesive Patch,Medicated 1 patch TOPICAL DAILY PRN (Reason: Breakthrough Pain) RF: 0 calcium carbonate [Tums E-X] 300 mg (750 mg) Tablet,Chewable 300 mg PO BID PRN (Reason: Heartburn) RF: 0 acetaminophen [Arthritis Pain Relief (acetam)] 650 mg tablet extended release 1 tab PO Q6H PRN (Reason: Fever Or Pain) RF: 0 zolpidem 10 mg tablet 1 tab PO BEDTIME PRN (Reason: Sleep) RF: 0 Discharge Orders: Discharge Order (Routine); Ordered 06/27/21 Ordered By: Myron Urena Activity on Discharge: No prolonged sitting Stand Alone Forms: Patient Portal Discharge page Care Plan Goals: prevent rehospitalization Health Concerns: croh's disease, pneumonia Plan of Treatment: Take Augmentin as directed and follow up with Dr. Palafox for reevaluation for crohn's Assessment: as above Discharge Date/Time: 06/27/21 16:00
[2021-06-27 11:11] LABS: Hematocrit 31.8 % (37.0-47.0); Hemoglobin 9.9 g/dl (12.0-16.0); Mean Corpuscular HGB Conc 31.1 g/dl (31.0-35.0); Mean Corpuscular Hemoglobin 27.6 pg (27.0-33.0); Mean Corpuscular Volume 88.6 fL (80.0-98.0); Mean Platelet Volume 11.2 fL (9.4-12.3); Platelet Count 228 X10*3/uL (160-400); Red Blood Count 3.59 X10*6/uL (4.20-5.50); Red Cell Distribution Width 17.9 % (11.0-16.0); White Blood Count 6.7 X10*3/uL (4.8-10.8)
[2021-06-27 11:47] VITALS: BP 117/76; PULSE 83; RESP 18; TEMP 36.6; O2SAT 97
--- NOTE | 2021-06-27 12:57 | HO.POSTANES ---
Post Anesthesia Evaluation Post Anesthesia Evaluation Vital Signs: Vital Signs Temp Pulse Resp BP Pulse Ox 06/27/21 11:47 97.8 F 83 18 117/76 97 06/27/21 07:51 96.8 F 81 16 124/70 99 06/27/21 03:47 97.3 F 83 16 108/66 93 Anesthesia: Monitored Mental Status: Awake Pain Control: Satisfactory Nausea/Vomiting: None Hydration: Adequate Anesthesia-Related Issues: No Anes. Related Issues
--- NOTE | 2021-06-27 15:54 | MHC.CM.PN ---
Female 50 s/p Upper+lower scope remove stricture She is discharged today to home with resumption of [employer] services. Her family is providing transportation.
== END 2021-06-27 16:00 | disposition home or self-care (01) ==
LOC: HO.ED 09:46 → HO.EDOVER 11:00 → HO.S3 19:18
PROVIDERS: Internal Medicine; Internal Medicine Gastroenterology; Student in an Organized Health Care Education/Training Program; Admitting Provider Nurse Practitioner Acute Care; Emergency Provider Emergency Medicine Emergency Medical Services; PCP Internal Medicine; Visit Provider Internal Medicine
PROC: 0DJD8ZZ Inspection of Lower Intestinal Tract, Via Natural or Artificial Opening Endoscopic (ICD-10-PCS; CPT 45330; principal; 2021-06-26 07:30)
DX: R11.2 Nausea with vomiting, unspecified (principal); R10.31 Right lower quadrant pain; K52.9 Noninfective gastroenteritis and colitis, unspecified; K50.80 Crohn's disease of both small and large intestine without complications; K56.699 Other intestinal obstruction unspecified as to partial versus complete obstruction; D50.9 Iron deficiency anemia, unspecified; D72.829 Elevated white blood cell count, unspecified; J18.9 Pneumonia, unspecified organism; G47.30 Sleep apnea, unspecified; I10 Essential (primary) hypertension; I26.99 Other pulmonary embolism without acute cor pulmonale; E78.5 Hyperlipidemia, unspecified; F33.2 Major depressive disorder, recurrent severe without psychotic features; F41.9 Anxiety disorder, unspecified; Z20.822 Contact with and (suspected) exposure to COVID-19; Z93.3 Colostomy status; Z98.0 Intestinal bypass and anastomosis status; Z88.6 Allergy status to analgesic agent; Z88.1 Allergy status to other antibiotic agents; Z88.8 Allergy status to other drugs, medicaments and biological substances; Z79.899 Other long term (current) drug therapy
CPT/HCPCS: 45340; 36415; 71045; 74177; 80048; 80053; 81003; 81025; 83605; 85025; 85027; 85610; 86140; 87040; 87635; 88305; 90471; 90686; 96365; 96366; 96367; 96375; 96376; 99218; 99285; C1726; J0456; J0696; J2270; J2405; J2543; J3010; Q9967

== ENCOUNTER 2021-07-03 08:46 | Outpatient (REF) | payer MEDICAID, SELFPAY | END 2021-07-03 08:47 | disposition home or self-care (01) | LOC: HO.MDS 08:46 | PROVIDERS: PCP Internal Medicine; Visit Provider Internal Medicine Gastroenterology | DX: K50.10 Crohn's disease of large intestine without complications (principal) | CPT/HCPCS: 96372 ==

== ENCOUNTER 2021-07-17 18:25 | Emergency (ER) | payer MEDICAID, SELFPAY ==
--- NOTE | ~2021-07-17 | XR_ITS ---
EXAMINATION: CERVICAL SPINE, THORACIC SPINE, LUMBAR SPINE, CHEST AND RIBS AND RIGHT WRIST CLINICAL INFORMATION: Pain in cervical, thoracic and lumbar spine with chest pain to palpation anterior chest wall and right wrist pain COMPARISON: CT chest abdomen pelvis 04/13/2021 TECHNIQUE: 5 views cervical spine, 2 views thoracic spine, single view chest with 2 additional views right RIBS, 3 views lumbar spine and 3 views right wrist FINDINGS: Cervical spine: No soft tissue swelling, fractures or subluxations are seen. Some minimal spondylitic changes are present with some inferior endplate osteophytes at C5 and C6. Thoracic spine: Thoracic spine is unremarkable, unchanged from 04/13/2021. Vertebral disc height and disc spaces are well preserved. No bony destruction is lesions are seen. Paraspinal soft tissues are unremarkable. Lumbar spine: Degenerative changes are present at L5-S1 with disc space narrowing and endplate sclerosis. No interval change when compared to 06/25/2021. No fractures or dislocations are seen. There is evidence of previous abdominal wall surgery with probable hernia repair. Chest and ribs: No significant abnormality seen involving the heart lungs mediastinum or bony thorax. Right wrist: No significant bone joint or soft tissue abnormality is seen. XR/XR wrist RT min 3V IMPRESSION: No evidence of acute traumatic injury. Minimal degenerative changes seen in the cervical spine without disc space narrowing. L5-S1 degenerative change. No other abnormality seen.
--- NOTE | ~2021-07-17 | XR_ITS ---
EXAMINATION: CERVICAL SPINE, THORACIC SPINE, LUMBAR SPINE, CHEST AND RIBS AND RIGHT WRIST CLINICAL INFORMATION: Pain in cervical, thoracic and lumbar spine with chest pain to palpation anterior chest wall and right wrist pain COMPARISON: CT chest abdomen pelvis 04/13/2021 TECHNIQUE: 5 views cervical spine, 2 views thoracic spine, single view chest with 2 additional views right RIBS, 3 views lumbar spine and 3 views right wrist FINDINGS: Cervical spine: No soft tissue swelling, fractures or subluxations are seen. Some minimal spondylitic changes are present with some inferior endplate osteophytes at C5 and C6. Thoracic spine: Thoracic spine is unremarkable, unchanged from 04/13/2021. Vertebral disc height and disc spaces are well preserved. No bony destruction is lesions are seen. Paraspinal soft tissues are unremarkable. Lumbar spine: Degenerative changes are present at L5-S1 with disc space narrowing and endplate sclerosis. No interval change when compared to 06/25/2021. No fractures or dislocations are seen. There is evidence of previous abdominal wall surgery with probable hernia repair. Chest and ribs: No significant abnormality seen involving the heart lungs mediastinum or bony thorax. Right wrist: No significant bone joint or soft tissue abnormality is seen. XR/XR cervical spine 3V IMPRESSION: No evidence of acute traumatic injury. Minimal degenerative changes seen in the cervical spine without disc space narrowing. L5-S1 degenerative change. No other abnormality seen.
--- NOTE | ~2021-07-17 | XR_ITS ---
EXAMINATION: CERVICAL SPINE, THORACIC SPINE, LUMBAR SPINE, CHEST AND RIBS AND RIGHT WRIST CLINICAL INFORMATION: Pain in cervical, thoracic and lumbar spine with chest pain to palpation anterior chest wall and right wrist pain COMPARISON: CT chest abdomen pelvis 04/13/2021 TECHNIQUE: 5 views cervical spine, 2 views thoracic spine, single view chest with 2 additional views right RIBS, 3 views lumbar spine and 3 views right wrist FINDINGS: Cervical spine: No soft tissue swelling, fractures or subluxations are seen. Some minimal spondylitic changes are present with some inferior endplate osteophytes at C5 and C6. Thoracic spine: Thoracic spine is unremarkable, unchanged from 04/13/2021. Vertebral disc height and disc spaces are well preserved. No bony destruction is lesions are seen. Paraspinal soft tissues are unremarkable. Lumbar spine: Degenerative changes are present at L5-S1 with disc space narrowing and endplate sclerosis. No interval change when compared to 06/25/2021. No fractures or dislocations are seen. There is evidence of previous abdominal wall surgery with probable hernia repair. Chest and ribs: No significant abnormality seen involving the heart lungs mediastinum or bony thorax. Right wrist: No significant bone joint or soft tissue abnormality is seen. XR/XR lumbar spine 2-3V IMPRESSION: No evidence of acute traumatic injury. Minimal degenerative changes seen in the cervical spine without disc space narrowing. L5-S1 degenerative change. No other abnormality seen.
--- NOTE | ~2021-07-17 | XR_ITS ---
EXAMINATION: CERVICAL SPINE, THORACIC SPINE, LUMBAR SPINE, CHEST AND RIBS AND RIGHT WRIST CLINICAL INFORMATION: Pain in cervical, thoracic and lumbar spine with chest pain to palpation anterior chest wall and right wrist pain COMPARISON: CT chest abdomen pelvis 04/13/2021 TECHNIQUE: 5 views cervical spine, 2 views thoracic spine, single view chest with 2 additional views right RIBS, 3 views lumbar spine and 3 views right wrist FINDINGS: Cervical spine: No soft tissue swelling, fractures or subluxations are seen. Some minimal spondylitic changes are present with some inferior endplate osteophytes at C5 and C6. Thoracic spine: Thoracic spine is unremarkable, unchanged from 04/13/2021. Vertebral disc height and disc spaces are well preserved. No bony destruction is lesions are seen. Paraspinal soft tissues are unremarkable. Lumbar spine: Degenerative changes are present at L5-S1 with disc space narrowing and endplate sclerosis. No interval change when compared to 06/25/2021. No fractures or dislocations are seen. There is evidence of previous abdominal wall surgery with probable hernia repair. Chest and ribs: No significant abnormality seen involving the heart lungs mediastinum or bony thorax. Right wrist: No significant bone joint or soft tissue abnormality is seen. XR/XR ribs BI 3V IMPRESSION: No evidence of acute traumatic injury. Minimal degenerative changes seen in the cervical spine without disc space narrowing. L5-S1 degenerative change. No other abnormality seen.
--- NOTE | ~2021-07-17 | XR_ITS ---
EXAMINATION: CERVICAL SPINE, THORACIC SPINE, LUMBAR SPINE, CHEST AND RIBS AND RIGHT WRIST CLINICAL INFORMATION: Pain in cervical, thoracic and lumbar spine with chest pain to palpation anterior chest wall and right wrist pain COMPARISON: CT chest abdomen pelvis 04/13/2021 TECHNIQUE: 5 views cervical spine, 2 views thoracic spine, single view chest with 2 additional views right RIBS, 3 views lumbar spine and 3 views right wrist FINDINGS: Cervical spine: No soft tissue swelling, fractures or subluxations are seen. Some minimal spondylitic changes are present with some inferior endplate osteophytes at C5 and C6. Thoracic spine: Thoracic spine is unremarkable, unchanged from 04/13/2021. Vertebral disc height and disc spaces are well preserved. No bony destruction is lesions are seen. Paraspinal soft tissues are unremarkable. Lumbar spine: Degenerative changes are present at L5-S1 with disc space narrowing and endplate sclerosis. No interval change when compared to 06/25/2021. No fractures or dislocations are seen. There is evidence of previous abdominal wall surgery with probable hernia repair. Chest and ribs: No significant abnormality seen involving the heart lungs mediastinum or bony thorax. Right wrist: No significant bone joint or soft tissue abnormality is seen. XR/XR thoracic spine 3V IMPRESSION: No evidence of acute traumatic injury. Minimal degenerative changes seen in the cervical spine without disc space narrowing. L5-S1 degenerative change. No other abnormality seen.
[2021-07-17 19:37] VITALS: BP 128/71; PULSE 79; RESP 18; TEMP 35.9; O2SAT 98; BMI 35.4
[2021-07-17 22:25] VITALS: BP 135/77; PULSE 70; RESP 14; O2SAT 99
--- NOTE | 2021-07-17 23:09 | ED.BACK ---
HPI - Back Pain/Injury General Chief Complaint: Back Pain/Injury Stated Complaint: automatic doors closed hit her back Time Seen by Provider: 07/17/21 23:01 Source: patient Mode of arrival: ambulatory Limitations: no limitations History of Present Illness HPI Narrative: 50-year-old female past medical history significant for depression, asthma presents to the emergency department with 2 days of progressively worsening back pain right wrist pain and pain to palpation to chest wall s/p getting stuck between a sliding door at [facility] yesterday. She states the door closed hitting her right on her back and her chest. She states she tried to open it with her right hand and she pushed so hard her wrist hurt. Patient tells me her pain has worsened since last night. She states her pain is severe. She denies numbness, tingling, bowel/urinary incontinence, weakness, fevers, chills, chest pain, shortness of breath. MD elicited complaint: back pain and other Pertinent past history: recent trauma (w/ sliding door ) Onset (ago): day(s) (2) Timing: constant Severity: severe Similar Symptoms Previously: No Quality: sharp Location: lumbar spine, thoracic spine, right lower back, right upper back, left upper back and left lower back Radiation: none Exacerbating factors: none Relieving factors: none Context: other (Electric sliding door closed on her.) Associated symptoms: denies other symptoms Work related injury: No Related Data Home Medications Medication Instructions Recorded Confirmed amitriptyline 25 mg tablet 2 tab PO BEDTIME 03/22/21 06/25/21 clonazepam 1 mg tablet 1 tab PO BEDTIME PRN 03/22/21 06/25/21 docusate sodium 100 mg capsule 1 cap PO BID 03/22/21 06/25/21 doxazosin 2 mg tablet 1 tab PO BEDTIME 03/22/21 06/25/21 ergocalciferol (vitamin D2) 1,250 1 cap PO WE 03/22/21 06/25/21 mcg (50,000 unit) capsule methotrexate sodium 2.5 mg tablet 25 mg PO TU 03/22/21 06/25/21 montelukast 10 mg tablet 1 tab PO BEDTIME 03/22/21 06/25/21 multivitamin 1 tab PO QAM 03/22/21 06/25/21 topiramate 100 mg tablet 1 tab PO BID 03/22/21 06/25/21 vitamin B complex-folic acid 0.4 1 tab PO QAM 03/22/21 06/25/21 mg tablet (B Complex 1 (with folic acid)) albuterol sulfate 1 amp INHALATION Q6H PRN 06/13/21 06/25/21 albuterol sulfate 90 mcg/actuation 2 puff PO QID PRN 06/13/21 06/25/21 aerosol inhaler (ProAir HFA) apixaban 5 mg tablet (Eliquis) 5 mg PO BID 06/13/21 06/26/21 esomeprazole magnesium 20 mg 1 cap PO QAM 06/13/21 06/25/21 capsule,delayed release baclofen 10 mg tablet 1 tab PO TID PRN 06/25/21 06/25/21 buspirone 5 mg tablet 1 tab PO DAILY 06/25/21 06/25/21 calcium carbonate 300 mg (750 mg) 300 mg PO BID PRN 06/25/21 06/25/21 chewable tablet (Tums E-X) calcium carbonate 600 mg (1,500 1 tab PO BID 06/25/21 06/25/21 mg)-vitamin D3 400 unit tablet clonazepam 0.5 mg tablet 1 tab PO DAILY 06/25/21 06/25/21 hydroxyzine HCl 25 mg tablet 1 - 2 tab PO 06/25/21 06/25/21 lidocaine 4 % topical patch 1 patch TOPICAL DAILY PRN 06/25/21 06/25/21 ustekinumab 90 mg/mL subcutaneous 90 mg SUBCUT Q4W 06/25/21 06/25/21 syringe (Jaimeera) zolpidem 10 mg tablet 1 tab PO BEDTIME PRN 06/25/21 06/25/21 Previous Rx's Medication Instructions Recorded mirtazapine 15 mg tablet 15 mg PO BEDTIME #30 tab 04/04/21 paroxetine HCl 20 mg tablet 20 mg PO DAILY #30 tab 04/04/21 risperidone 1 mg tablet 1 mg PO BID #60 tab 04/04/21 oxycodone 5 mg tablet 5 mg PO Q6H PRN #14 tab 06/27/21 acetaminophen 325 mg tablet 325 mg PO QID PRN #14 tab 07/18/21 (Tylenol) lidocaine 5 % topical patch 1 patch TOPICAL DAILY PRN #15 ea 07/18/21 Allergies Allergy/AdvReac Type Severity Reaction Status Date / Time aspirin [ASA] Allergy Intermediate RASH Verified 07/17/21 19:37 azathioprine [From IMURAN] Allergy Intermediate PANCREATIC Verified 07/17/21 19:37 INFLAMMATION ibuprofen [IBUPROFEN] Allergy Intermediate TOLD NOT Verified 07/17/21 19:37 TO TAKE levofloxacin [From LEVAQUIN] Allergy Mild YEAST Verified 07/17/21 19:37 INFECTIONS Review of Systems Review of Systems: Constitutional : No Weight loss, No Fever, No Chills, No Fatigue, No Malaise ENT/Mouth : No sore throat, No Rhinorrhea Eyes: No Eye Pain, No Swelling, No Redness Cardiovascular : No Chest Pain, No SOB, No Dyspnea on Exertion, No Orthopnea, No Edema, No Palpitations Respiratory : No Cough, No Sputum, No Wheezing Gastrointestinal : No Nausea, No Vomiting, No Diarrhea, No Constipation, No abdominal Pain, No Hematochezia, No Melena Genitourinary : No Dysuria, No Urinary Frequency, No Hematuria, Musculoskeletal : + joint pain, No Myalgias, No Joint Swelling Skin : No Skin Lesions, No rash Neuro : No Weakness, No Numbness, No Dizziness, No Headache All other systems reviewed and are negative PMFSH Past Medical History Attestation statement: The following information was validated with the patient. Source: old records reviewed and nursing notes reviewed Medical History Anxiety Asthma Cancer Crohn's colitis Crohn's disease Depression GERD (gastroesophageal reflux disease) Hemorrhagic cyst of ovary HTN (hypertension) Hyperlipidemia Iron deficiency anemia Kidney stones Migraine Normocytic anemia PTSD (post-traumatic stress disorder) Pulmonary embolism Recurrent major depression-severe Rheumatoid arthritis Sleep apnea Surgical History History of colon resection Hx of colonoscopy (~10/2018) Hx of cystoscopy Hx of cystoscopy Hx of dilation and curettage Hx of endoscopy Social History Social History Household Members: None Housing: Apartment Do you presently have visiting nurse or other home services: No Alcohol intake: never Patient Tobacco Use Status: Former Tobacco user Quit Date: 2001 Tobacco use type: Cigarette Years Smoked: 10 Second Hand Smoke Exposure: No Substance Use Type: Marijuana Advance Directives: Yes Advance Directives on File: Yes Advance Directives Date on File: 07/06/14 service: No Current occupational status: disabled Sexual orientation: Straight/Heterosexual Physical Exam Vital Signs: Vital Signs: Last Vital Signs Temp 96.6 F L 07/17/21 19:37 Pulse 70 07/17/21 22:25 Resp 14 07/17/21 22:25 BP 135/77 07/17/21 22:25 Pulse Ox 99 07/17/21 22:25 Body Mass Index 35.4 Vital signs stable. Appearance: Alert.? Oriented X3.? No acute distress.? Head: Normocephalic, atraumatic, no step-offs or deformities Eyes: Pupils equal, round and reactive to light.? ENT: Pharynx normal.? Neck: Normal inspection.? Neck supple.? CVS: Normal heart rate and rhythm.? Pulses normal.?+ pain to palpation to anterior chest Respiratory: No respiratory distress.? Breath sounds normal.? Abdomen: Soft and nontender.? Skin: Skin warm and dry.? Normal skin color.? Normal skin turgor.? Extremities: No lower extremity edema.? No calf ttp. 5/5 strength to bilateral upper and lower extremities. Patient moving right wrist without issues full ROM, no point tenderness or overlying skin changes. Back: No midline tenderness, no C-spine tenderness, full range of motion, no CVA tenderness bilaterally + pain to palpation of paraspinous muscles bilaterally overlying lumbar, thoracic and cervical region. No saddle paresthesias. Neuro: Oriented X 3.? No motor deficit.? No sensory deficit. 2+ reflexes equal bilateral. Patient ambulating with a steady gait. Course Reevaluation(s) Reevaluation #1: All x-rays are negative. Slight improvement with Tylenol. Patient will be discharged home with Tylenol and lidocaine patches to apply to the affected area. I discussed these results with patient. She is understanding. She has no questions. She is safe for discharge home with PCP follow-up. I suspect that these are all muscle strains. I do not suspect cauda equina or epidural abscess, or radiculopathy. Pain is reproducible with palpation. She will follow-up with her PCP this week. Time: 00:42 Reevaluation #2: Patient tells me that she feels weak at this time, and she feels as though she cannot go home because she is in excruciating pain. She also would like me to check her urine because she tells me she has chromes disease and has been dribbling urine, worse since the incident. During her time here she has been able to controll her bowel and urine, she has no saddle paresthesia. I had Dr. Frazier examine the patient who agrees that this is likely muscular in origin not cauda equina. There is no red flag symptoms, patient able to ambulate with a steady gait, heel to toe, Tippy toes, no ataxia. Normal strength to upper and lower extremities. Sensation intact no saddle paresthesias. Sensation to bilateral buttocks intact. No focal neuro deficits. Normal sphincter tone and anal wink ([facility] tech chaperoned my exam). At this time I will medicate patient with oxycodone 5 mg as she has a safe ride home. Will continue to monitor Time: 00:59 Reevaluation #3: At time of improvement patient on facetime and in no distress. Patient reports significant improvement after administration of oxycodone. Patient is able to ambulate much better with less pain. Patient ambulated to bathroom without any issues. Patient does not have any other complaints at this time. Pending a UA. I checked patient's Mass Pat, and she has multiple opiate prescriptions on board. I do not feel comfortable prescribing her narcotic at this time. I will prescribe her Tylenol as needed for pain. Patient is already taking oxycodone. Will sign out to Dr. Frazier, pending UA. Time: 01:44 MDM - Back Pain/Injury [facility] Narrative Medical decision making narrative: [id number] 50-year-old female past medical history significant for depression, asthma presents to the emergency department with 2 days of progressively worsening back pain right wrist pain and pain to palpation to chest wall s/p getting stuck between a sliding door at [facility] yesterday Upon physical examination patient appears well and she is in no acute distress. Patient is ambulating with a steady gait no ataxia. S1-S2 appreciated free of murmurs. Lungs are clear to auscultation. Abdomen soft nontender nondistended. Patient reports pain with palpation of anterior chest. Patient reports pain to palpation of paraspinous muscles overlying bilateral cervical, lumbar and thoracic regions. No midline tenderness no C-spine tenderness. Patient has full range of motion to bilateral wrists, with normal strength, no point tenderness to palpation or overlying skin changes. 5/5 strength upper and lower extremities. 2+ reflexes equal bilateral. No focal neuro deficits. No saddle paresthesias. Based off patient's symptoms this is most likely cervical, lumbar and thoracic region spasms. This is not likely cauda equina or epidural abscess, patient's history and physical examination is not consistent with either of these. Patient denies radiculopathy. Plan at this time is to obtain plain films to ensure there is no acute fractures or dislocations. Although I suspect these are muscle spasms Imaging Data Cervical spine, thoracic, lumbar, chest and ribs and right wrist x-ray: Attestation: I personally reviewed and interpreted this imaging study as follows: Radiologist's impression: XR/XR cervical spine 3V IMPRESSION: No evidence of acute traumatic injury. Minimal degenerative changes seen in the cervical spine without disc space narrowing. L5-S1 degenerative change. No other abnormality seen.? Critical Care Time Critical Care Time Critical Care Time: No Discharge Plan Discharge Clinical Impression: Cervical strain, Lumbar strain, Strain of chest wall, Strain of thoracic back region, Crush injury Patient Disposition: Home, Self-Care Instructions: Cervical Strain (ED), Muscle Strain (ED), Acute Low Back Pain (ED), Lower Back Exercises (ED) Additional Instructions: Take your medications as prescribed. Follow-up with your primary care provider tomorrow Return to the emergency department with new or worsening symptoms. Such as inability to control bowel/urine, weakness, fevers, chills, nausea, vomiting, sensory and motor deficits, chest pain, shortness of breath. In case of emergency call 911 Prescriptions: New lidocaine 5 % adhesive patch,medicated 1 patch topical DAILY PRN (Reason: pain) Qty: 15 RF: 0 acetaminophen [Tylenol] 325 mg tablet 325 mg PO QID PRN (Reason: pain) Qty: 14 RF: 0 Discontinued acetaminophen [Arthritis Pain Relief (acetam)] 650 mg tablet extended release 1 tab PO Q6H PRN (Reason: Fever Or Pain) RF: 0 No Action multivitamin Tablet 1 tab PO QAM RF: 0 clonazepam 1 mg tablet 1 tab PO BEDTIME PRN (Reason: Sleep) RF: 0 amitriptyline 25 mg tablet 2 tab PO BEDTIME RF: 0 methotrexate sodium 2.5 mg tablet 25 mg PO TU RF: 0 docusate sodium 100 mg capsule 1 cap PO BID RF: 0 montelukast 10 mg tablet 1 tab PO BEDTIME RF: 0 ergocalciferol (vitamin D2) 1,250 mcg (50,000 unit) capsule 1 cap PO WE RF: 0 topiramate 100 mg tablet 1 tab PO BID RF: 0 vitamin B complex-folic acid [B Complex 1 (with folic acid)] 0.4 mg tablet 1 tab PO QAM RF: 0 doxazosin 2 mg tablet 1 tab PO BEDTIME RF: 0 paroxetine HCl 20 mg Tablet 20 mg PO DAILY Qty: 30 RF: 0 mirtazapine 15 mg Tablet 15 mg PO BEDTIME Qty: 30 RF: 0 risperidone 1 mg Tablet 1 mg PO BID Qty: 60 RF: 0 albuterol sulfate 2.5 mg /3 mL (0.083 %) solution for nebulization 1 amp inhalation Q6H PRN (Reason: Wheezing) RF: 0 Eliquis 5 mg tablet 5 mg PO BID RF: 0 albuterol sulfate [ProAir HFA] 90 mcg/actuation HFA aerosol inhaler 2 puff PO QID PRN (Reason: Dyspnea) RF: 0 esomeprazole magnesium 20 mg capsule,delayed release(DR/EC) 1 cap PO QAM RF: 0 clonazepam 0.5 mg tablet 1 tab PO DAILY RF: 0 baclofen 10 mg tablet 1 tab PO TID PRN (Reason: muscle spasm) RF: 0 hydroxyzine HCl 25 mg tablet 1 - 2 tab PO RF: 0 Stelara 90 mg/mL syringe 90 mg subcut Q4W RF: 0 calcium carbonate-vitamin D3 600 mg(1,500mg) -400 unit tablet 1 tab PO BID RF: 0 buspirone 5 mg tablet 1 tab PO DAILY RF: 0 lidocaine 4 % Adhesive Patch,Medicated 1 patch TOPICAL DAILY PRN (Reason: Breakthrough Pain) RF: 0 calcium carbonate [Tums E-X] 300 mg (750 mg) Tablet,Chewable 300 mg PO BID PRN (Reason: Heartburn) RF: 0 zolpidem 10 mg tablet 1 tab PO BEDTIME PRN (Reason: Sleep) RF: 0 oxycodone 5 mg tablet 5 mg PO Q6H PRN (Reason: pain (scale score 7-10)) Qty: 14 RF: 0 Referrals: Leesa Rapp MD [Primary Care Provider] - 2 days Stand Alone Forms: Work/School Release
[2021-07-18] MEDS: Acetaminophen 325 MG TABLET 650 MG PO (00:18)
[2021-07-18] MEDS: oxyCODONE HCl Immed Release 5 MG TABLET PO (01:22)
[2021-07-18 02:22] LABS: Appearance Urine CLEAR; Color Urine YELLOW; Glucose Urine UA NEG (NEG); Leukocyte Esterase Urine TRACE (NEG); Nitrite Urine NEG (NEG); PH 5.5 (5.0-8.0); Specific Gravity - Urine 1.025 (1.005-1.025); UACC Culture Trigger YES; Urine Blood NEG (NEG); Urine Ketones NEG (NEG); Urine Protein NEG (NEG-TRACE)
[2021-07-18 02:49] LABS: Bacteria Urine 1+ /LPF; RBC Urine 0-2 /HPF (0); Squamous Epithelial Cell Urine 1+ /LPF; UACC CULT YES
[2021-07-18 02:50] LABS: Mucus Urine 4+ /LPF
[2021-07-18 02:55] VITALS: BP 134/82; PULSE 61; RESP 18; TEMP 36.9; O2SAT 97
== END 2021-07-18 03:00 | disposition home or self-care (01) ==
PROVIDERS: Physician Assistant; Emergency Provider Emergency Medicine; PCP Internal Medicine
DX: S16.1XXA Strain of muscle, fascia and tendon at neck level, initial encounter (principal); S29.011A Strain of muscle and tendon of front wall of thorax, initial encounter; S21.102A Unspecified open wound of left front wall of thorax without penetration into thoracic cavity, initial encounter; S21.101A Unspecified open wound of right front wall of thorax without penetration into thoracic cavity, initial encounter; S29.012A Strain of muscle and tendon of back wall of thorax, initial encounter; M54.50 Low back pain, unspecified; R07.81 Pleurodynia; M25.531 Pain in right wrist; F33.1 Major depressive disorder, recurrent, moderate; F17.210 Nicotine dependence, cigarettes, uncomplicated; W31.9XXA Contact with unspecified machinery, initial encounter; Y93.9 Activity, unspecified; Y92.512 Supermarket, store or market as the place of occurrence of the external cause; Y99.9 Unspecified external cause status; Z79.899 Other long term (current) drug therapy; Z71.6 Tobacco abuse counseling
CPT/HCPCS: 71110; 72040; 72072; 72100; 73110; 81001; 87086; 99283

== ENCOUNTER 2021-08-10 16:23 | Emergency (ER) | payer MEDICAID, SELFPAY ==
--- NOTE | ~2021-08-10 | CT_ITS ---
EXAMINATION: CT ABDOMEN AND PELVIS WITH CONTRAST CLINICAL INFORMATION: History of Crohn's disease. Diffuse abdominal pain. COMPARISON: 06/25/2021 TECHNIQUE: Multidetector volumetric images were obtained from the superior aspect of the liver through the pubic symphysis following administration 85 mL of Omnipaque 350 intravenous contrast. Sagittal and coronal reformatted images were obtained on the technologist's workstation. Oral contrast: No This CT examination was performed using dose optimization techniques as appropriate, variously including the following: *Automated exposure control *Adjustment of mA and/or kV according to patient size (this includes techniques or standardized protocols for targeted exams where dose is matched to indication/reason for exam; i.e. extremities or head) *Use of iterative reconstruction technique DLP: 756 mGy-cm FINDINGS: LUNG BASES: The visualized lung bases are unremarkable. LIVER, GALLBLADDER, AND BILIARY TREE: The liver is normal in size, shape, and attenuation. No focal hepatic lesion or biliary ductal dilatation is present. The gallbladder is unremarkable with no evidence of radiopaque gallstones, gallbladder wall thickening, or obvious pericholecystic inflammatory changes. PANCREAS: Unremarkable. SPLEEN: Unremarkable. ADRENAL GLANDS: Unremarkable. KIDNEYS AND URETERS: The kidneys are normal in size, shape, and attenuation. No hydronephrosis, hydroureter, or calculi seen. No perinephric stranding. BLADDER: Unremarkable. GASTROINTESTINAL TRACT: The stomach is unremarkable. Normal caliber small bowel. There is no obstruction. No small bowel wall thickening seen. Moderate stool burden throughout the colon. Normal appendix. There is wall thickening involving the sigmoid colon with mild adjacent inflammation. This is at the location of surgical clips. No free air or free fluid. ABDOMINAL WALL: No significant hernia is appreciated. Prior abdominal wall hernia repair. LYMPH NODES: Normal. VASCULAR: Unremarkable. PELVIC VISCERA: The uterus and adnexa are unremarkable. OSSEOUS STRUCTURES: No acute or suspicious osseous abnormality. Mild degenerative change at L5-S1. CT/CT abdomen pelvis w con IMPRESSION: Mild wall thickening with adjacent inflammation involving the sigmoid colon. No significant diverticulosis in this area. This may represent colitis, particularly in the setting of Crohn's disease. There is luminal narrowing in this may represent a stricture, leading to a moderate stool burden proximally. The luminal narrowing is similar to prior CT from 06/25/2021. Fleischner guidelines were followed.
[2021-08-10 16:29] VITALS: BP 132/85; PULSE 81; O2SAT 97
[2021-08-10 18:27] VITALS: BP 143/90; PULSE 72; RESP 18; TEMP 36.3; O2SAT 98; BMI 35.4
--- NOTE | 2021-08-10 19:35 | ED.GENADULT ---
HPI - General Adult General Chief complaint: General Medical <KAHLIL Nunn - Last Filed: 08/10/21 22:34> Stated complaint: bodyaches post op x 4days <KAHLIL Nunn Last Filed: 08/10/21 22:34> Time Seen by Provider: 08/10/21 19:15 <KAHLIL Nunn - Last Filed: 08/10/21 22:34> Source: patient <KAHLIL Nunn Last Filed: 08/10/21 22:34> Mode of arrival: ambulatory <KAHLIL Nunn Last Filed: 08/10/21 22:34> Limitations: no limitations <KAHLIL Nunn Last Filed: 08/10/21 22:34> History of Present Illness HPI narrative: 50-year-old female past medical history significant for depression, asthma, Crohn's disease presents to the emergency department with concerns of diffuse abdominal pain, nausea, and diarrhea x3 days. Patient tells me that she is having severe abdominal pain and she cannot pinpoint exactly where hurts, she also reports associated diarrhea, she tells me she has had multiple bowel movements today but cannot quantify how many, she tells me that her stool is completely liquid brown in color, she tells me it hurts when she has bowel movements. She also tells me that she has been nauseated and she has thrown up at least 4 times today. She tells me that every time she eats she is throwing up. She is not really tolerating anything by mouth, because she tells me she is puking it up. She tells me this feels like her typical Crohn's flare, she tells me that she was diagnosed at the age of 30, she at 1 point had an ostomy bag which was recently reversed, but she does not remember when. She denies fevers, chills, chest pain, shortness of breath, weakness, headache, dizziness. <KAHLIL Nunn Last Filed: 08/10/21 22:34> Onset (ago): day(s) (3) <KAHLIL Nunn Last Filed: 08/10/21 22:34> Location: abdomen <KAHLIL Nunn - Last Filed: 08/10/21 22:34> Radiation: non-radiation <KAHLIL Nunn - Last Filed: 08/10/21 22:34> Severity: severe <KAHLIL Nunn - Last Filed: 08/10/21 22:34> Severity scale (1-10): 10 <KAHLIL Nunn - Last Filed: 08/10/21 22:34> Quality: constant <KAHLIL Nunn - Last Filed: 08/10/21 22:34> Pain Consistency: constant <KAHLIL Nunn - Last Filed: 08/10/21 22:34> Relieving factors: none <KAHLIL Nunn - Last Filed: 08/10/21 22:34> Exacerbating factors: none <KAHLIL Nunn - Last Filed: 08/10/21 22:34> Associated symptoms: nausea/vomiting and other (diarrhea ) <KAHLIL Nunn - Last Filed: 08/10/21 22:34> Treatments prior to arrival: none <KAHLIL Nunn - Last Filed: 08/10/21 22:34> Related Data Home medications: Home Medications Medication Instructions Recorded Confirmed amitriptyline 25 mg tablet 2 tab PO BEDTIME 03/22/21 06/25/21 clonazepam 1 mg tablet 1 tab PO BEDTIME PRN 03/22/21 06/25/21 docusate sodium 100 mg capsule 1 cap PO BID 03/22/21 06/25/21 doxazosin 2 mg tablet 1 tab PO BEDTIME 03/22/21 06/25/21 ergocalciferol (vitamin D2) 1,250 1 cap PO WE 03/22/21 06/25/21 mcg (50,000 unit) capsule methotrexate sodium 2.5 mg tablet 25 mg PO TU 03/22/21 06/25/21 montelukast 10 mg tablet 1 tab PO BEDTIME 03/22/21 06/25/21 multivitamin 1 tab PO QAM 03/22/21 06/25/21 topiramate 100 mg tablet 1 tab PO BID 03/22/21 06/25/21 vitamin B complex-folic acid 0.4 1 tab PO QAM 03/22/21 06/25/21 mg tablet (B Complex 1 (with folic acid)) albuterol sulfate 1 amp INHALATION Q6H PRN 06/13/21 06/25/21 albuterol sulfate 90 mcg/actuation 2 puff PO QID PRN 06/13/21 06/25/21 aerosol inhaler (ProAir HFA) apixaban 5 mg tablet (Eliquis) 5 mg PO BID 06/13/21 06/26/21 esomeprazole magnesium 20 mg 1 cap PO QAM 06/13/21 06/25/21 capsule,delayed release baclofen 10 mg tablet 1 tab PO TID PRN 06/25/21 06/25/21 buspirone 5 mg tablet 1 tab PO DAILY 06/25/21 06/25/21 calcium carbonate 300 mg (750 mg) 300 mg PO BID PRN 06/25/21 06/25/21 chewable tablet (Tums E-X) calcium carbonate 600 mg-vitamin 1 tab PO BID 06/25/21 06/25/21 D3 10 mcg (400 unit) tablet clonazepam 0.5 mg tablet 1 tab PO DAILY 06/25/21 06/25/21 hydroxyzine HCl 25 mg tablet 1 - 2 tab PO 06/25/21 06/25/21 lidocaine 4 % topical patch 1 patch TOPICAL DAILY PRN 06/25/21 06/25/21 ustekinumab 90 mg/mL subcutaneous 90 mg SUBCUT Q4W 06/25/21 06/25/21 syringe (Stelara) zolpidem 10 mg tablet 1 tab PO BEDTIME PRN 06/25/21 06/25/21 Previous Rx's Medication Instructions Recorded mirtazapine 15 mg tablet 15 mg PO BEDTIME #30 tab 04/04/21 paroxetine HCl 20 mg tablet 20 mg PO DAILY #30 tab 04/04/21 risperidone 1 mg tablet 1 mg PO BID #60 tab 04/04/21 oxycodone 5 mg tablet 5 mg PO Q6H PRN #14 tab 06/27/21 acetaminophen 325 mg tablet 325 mg PO QID PRN #14 tab 07/18/21 (Tylenol) lidocaine 5 % topical patch 1 patch TOPICAL DAILY PRN #15 ea 07/18/21 amoxicillin 500 mg capsule 500 mg PO TID 10 Days #30 cap 08/11/21 metronidazole 500 mg tablet 500 mg PO TID 7 Days #21 tab 08/11/21 morphine 15 mg immediate release 15 mg PO Q4-6H PRN #10 tab 08/11/21 tablet <KAHLIL Nunn Last Filed: 08/10/21 22:34> Allergies/adverse reactions: Allergies Allergy/AdvReac Type Severity Reaction Status Date / Time aspirin [ASA] Allergy Intermediate RASH Verified 08/10/21 18:26 azathioprine [From IMURAN] Allergy Intermediate PANCREATIC Verified 08/10/21 18:26 INFLAMMATION ibuprofen [IBUPROFEN] Allergy Intermediate TOLD NOT Verified 08/10/21 18:26 TO TAKE levofloxacin [From LEVAQUIN] Allergy Mild YEAST Verified 08/10/21 18:26 INFECTIONS <KAHLIL Nunn - Last Filed: 08/10/21 22:34> Review of Systems Review of Systems: Constitutional : No Weight loss, No Fever, No Chills, + Fatigue, + Malaise ENT/Mouth : No sore throat, No Rhinorrhea Eyes: No Eye Pain, No Swelling, No Redness Cardiovascular : No Chest Pain, No SOB, No Dyspnea on Exertion, No Orthopnea, No Edema, No Palpitations Respiratory : No Cough, No Sputum, No Wheezing Gastrointestinal : + Nausea, + Vomiting, + Diarrhea, No Constipation, + abdominal Pain, No Hematochezia, No Melena Genitourinary : No Dysuria, No Urinary Frequency, No Hematuria, Musculoskeletal : No joint pain, No Myalgias, No Joint Swelling Skin : No Skin Lesions, No rash Neuro : No Weakness, No Numbness, No Dizziness, No Headache Psych : + Anxiety/Panic, No Depression All other systems reviewed and are negative <KAHLIL Nunn Last Filed: 08/10/21 22:34> Yes all other systems are reviewed and are negative <KAHLIL Nunn Last Filed: 08/10/21 22:34> [facility] Past Medical History Attestation statement: The following information was validated with the patient. <KAHLIL Nunn Last Filed: 08/10/21 22:34> Source: old records reviewed and nursing notes reviewed <KAHLIL Nunn - Last Filed: 08/10/21 22:34> Medical History: Medical History Anxiety Asthma Cancer Crohn's colitis Crohn's disease Depression GERD (gastroesophageal reflux disease) Hemorrhagic cyst of ovary HTN (hypertension) Hyperlipidemia Iron deficiency anemia Kidney stones Migraine Normocytic anemia PTSD (post-traumatic stress disorder) Pulmonary embolism Recurrent major depression-severe Rheumatoid arthritis Sleep apnea <KAHLIL Nunn - Last Filed: 08/10/21 22:34> Surgical History: Surgical History History of colon resection Hx of colonoscopy (~10/2018) Hx of cystoscopy Hx of cystoscopy Hx of dilation and curettage Hx of endoscopy <KAHLIL Nunn - Last Filed: 08/10/21 22:34> Social History Social History: Social History Household Members: None Housing: Apartment Do you presently have visiting nurse or other home services: No Alcohol intake: never Patient Tobacco Use Status: Former Tobacco user Quit Date: 2001 Tobacco use type: Cigarette Years Smoked: 10 Second Hand Smoke Exposure: No Substance Use Type: Marijuana Advance Directives: No Advance Directives Information Provided: Yes Advance Directives Date on File: 07/06/14 Patient : No service: No Current occupational status: disabled Sexual orientation: Straight/Heterosexual <KAHLIL Nunn - Last Filed: 08/10/21 22:34> Physical Exam Vital Signs: Vital Signs: Last Vital Signs Temp 97.3 F 08/10/21 18:27 Pulse 63 08/10/21 19:53 Resp 18 08/10/21 23:33 BP 135/83 08/10/21 19:53 Pulse Ox 97 08/10/21 19:53 BMI result Body Mass Index 35.4 Vital signs stable however, patient is noted to be slightly hypertensive. Likely secondary to pain <KAHLIL Nunn - Last Filed: 08/10/21 22:34> Vital Signs: Last Vital Signs Temp 97.3 F 08/10/21 18:27 Pulse 63 08/10/21 19:53 Resp 18 08/10/21 23:33 BP 135/83 08/10/21 19:53 Pulse Ox 97 08/10/21 19:53 BMI result Body Mass Index 35.4 <Jonathon Hinojosa MD - Last Filed: 08/11/21 01:08> Appearance: Alert.? Oriented X3.? No acute distress.? Patient appears anxious Head: Normocephalic, atraumatic, no step-offs or deformities Eyes: Pupils equal, round and reactive to light.? ENT: Pharynx normal.? Neck: Normal inspection.? Neck supple.? CVS: Normal heart rate and rhythm.? Pulses normal.? Respiratory: No respiratory distress.? Breath sounds normal.? Abdomen: Soft and + diffusely tender to the abdomen. Normal active bowel Skin: Skin warm and dry.? Normal skin color.? Normal skin turgor.? Extremities: No lower extremity edema.? No calf ttp. 5/5 strength to bilateral upper and lower extremities Back: No midline tenderness, no C-spine tenderness, full range of motion, no CVA tenderness bilaterally Neuro: Oriented X 3.? No motor deficit.? No sensory deficit. <KAHLIL Nunn - Last Filed: 08/10/21 22:34> Course Reevaluation(s) Reevaluation #1: No leukocytosis, a baseline anemia is noted, patient is noted to be slightly dry, no other electrolyte abnormalities that are acute in nature. Urine clean. Patient is COVID negative. CT of the abdomen and pelvis is currently pending <KAHLIL Nunn - Last Filed: 08/10/21 22:34> Time: 21:01 <KAHLIL Nunn - Last Filed: 08/10/21 22:34> Reevaluation #2: Pending CT of abdomen and pelvis. Sign out will be given to . At time that sign out was given, patient's vital signs are stable, patient's pain was under control. <KAHLIL Nunn - Last Filed: 08/10/21 22:34> Time: 22:33 <KAHLIL Nunn - Last Filed: 08/10/21 22:34> Reevaluation #3: CT scan reading is as follows:Mild wall thickening with adjacent inflammation involving the sigmoid colon. No significant diverticulosis in this area. This may represent colitis, particularly in the setting of Crohn's disease. There is luminal narrowing in this may represent a stricture, leading to a moderate stool burden proximally. The patient did require morphine 4 mg IV x3 doses to control her pain. She states that in the past she has been treated with antibiotics when she has a flare-up of her colitis. Patient was started on Flagyl 500 mg twice a day and amoxicillin 1000 mg twice a day for 7 days. She was given her 1st dose of these medications here in the emergency department. I will also prescribe the patient a limited supply of morphine 15 mg every 4-6 hours as needed for pain. Patient will be discharged home. 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 <Jonathon Hinojosa MD - Last Filed: 08/11/21 01:08> Medical Decision Making [facility] Narrative Medical decision making narrative: 1944 50 yo F pmhx depression, asthma, Crohn's disease presents to the emergency department with concerns of diffuse abdominal pain, nausea, and diarrhea x3 days. Tells me this feels like her typical Crohn's flare. She had an ostomy bag which was reversed, patient does not remember where or when it was reversed that this is what she reports to me. No recent surgical procedures. Upon physical examination patient was diffusely tender to palpation in all 4 quadrants. Normoactive bowel sounds. Patient appears anxious. Vital signs stable, slightly hypertensive likely secondary to pain. Plan at this time is to obtain basic labs, urine and is CT of the abdomen pelvis with contrast. <KAHLIL Nunn - Last Filed: 08/10/21 22:34> Lab Data Result diagrams: : 08/10/21 20:07 08/10/21 20:07 <KAHLIL Nunn - Last Filed: 08/10/21 22:34> Labs: Lab Results 08/10/21 08/10/21 08/10/21 Range/Units 19:56 19:56 20:07 WBC 7.8 (4.8-10.8) X10*3/uL RBC 4.32 D (4.20-5.50) X10*6/uL Hgb 11.4 L (12.0-16.0) g/dl Hct 36.3 L (37.0-47.0) % MCV 84.0 (80.0-98.0) fL MCH 26.4 L (27.0-33.0) pg MCHC 31.4 (31.0-35.0) g/dl RDW 15.9 (11.0-16.0) % Plt Count 220 (160-400) X10*3/uL MPV 11.9 (9.4-12.3) fL Immature Gran % (Auto) 0.1 (0.0-0.4) % Neut % (Auto) 52.7 (45-73) % Lymph % (Auto) 33.8 (20-40) % [place] % (Auto) 9.7 (2-11) % Eos % (Auto) 3.2 (0-4) % Baso % (Auto) 0.5 (0-2) % Lymph # (Auto) 2.6 (1.2-4.9) X10*3/uL [place] # (Auto) 0.8 (0.1-1.2) X10*3/uL Eos # (Auto) 0.3 (0.0-0.4) X10*3/uL Baso # (Auto) 0.0 (0.0-0.2) X10*3/uL Abs Immat Gran (auto) 0.01 (0.00-0.03) X10*3/uL Absolute Neuts (auto) 4.1 (2.0-8.3) x10*3/uL Absolute Nucleated RBC 0.000 (0.0-0.012) X10*3/uL Nucleated RBC % (auto) 0.0 (0.0-0.2) /100WBC ESR (0-20) MM/HR Sodium (135-145) mmol/L Potassium (3.3-5.1) mmol/L Chloride (96-108) mmol/L Carbon Dioxide (22-29) mmol/L Anion Gap (12-20) BUN (9-16) mg/dL Creatinine (0.5-1.4) mg/dL Estim Creat Clear Calc Estimated GFR Random Glucose (60-115) mg/dL Calcium (8.4-10.2) mg/dL Total Bilirubin (0.0-1.0) mg/dL AST (5-31) U/L ALT (0-31) U/L Alkaline Phosphatase (39-117) U/L C-Reactive Protein (< or = 0.50) mg/dL Total Protein (6.5-8.0) g/dL Albumin (3.5-5.0) g/dL Urine Color YELLOW Urine Appearance CLEAR Urine pH 5.5 (5.0-8.0) Ur Specific [place] >= 1.030 H (1.005-1.025) Urine Protein NEG (NEG-TRACE) MG/DL Urine Glucose (UA) NEG (NEG) MG/DL Urine Ketones NEG (NEG) MG/DL Urine Blood NEG (NEG) Urine Nitrite NEG (NEG) Ur Leukocyte Esterase NEG (NEG) COVID-19 (SHAAN) Negative (Negative) COVID-19 Clin Com See Note 08/10/21 08/10/21 Range/Units 20:07 20:07 WBC (4.8-10.8) X10*3/uL RBC (4.20-5.50) X10*6/uL Hgb (12.0-16.0) g/dl Hct (37.0-47.0) % MCV (80.0-98.0) fL MCH (27.0-33.0) pg MCHC (31.0-35.0) g/dl RDW (11.0-16.0) % Plt Count (160-400) X10*3/uL MPV (9.4-12.3) fL Immature Gran % (Auto) (0.0-0.4) % Neut % (Auto) (45-73) % Lymph % (Auto) (20-40) % [place] % (Auto) (2-11) % Eos % (Auto) (0-4) % Baso % (Auto) (0-2) % Lymph # (Auto) (1.2-4.9) X10*3/uL [place] # (Auto) (0.1-1.2) X10*3/uL Eos # (Auto) (0.0-0.4) X10*3/uL Baso # (Auto) (0.0-0.2) X10*3/uL Abs Immat Gran (auto) (0.00-0.03) X10*3/uL Absolute Neuts (auto) (2.0-8.3) x10*3/uL Absolute Nucleated RBC (0.0-0.012) X10*3/uL Nucleated RBC % (auto) (0.0-0.2) /100WBC ESR 7 (0-20) MM/HR Sodium 140 (135-145) mmol/L Potassium 3.9 (3.3-5.1) mmol/L Chloride 111 H (96-108) mmol/L Carbon Dioxide 21 L (22-29) mmol/L Anion Gap 12 (12-20) BUN 17 H (9-16) mg/dL Creatinine 0.82 (0.5-1.4) mg/dL Estim Creat Clear Calc 87.7 Estimated GFR > 60 Random Glucose 77 (60-115) mg/dL Calcium 9.3 (8.4-10.2) mg/dL Total Bilirubin 0.2 (0.0-1.0) mg/dL AST 18 (5-31) U/L ALT 16 (0-31) U/L Alkaline Phosphatase 100 (39-117) U/L C-Reactive Protein 0.74 H (< or = 0.50) mg/dL Total Protein 7.0 (6.5-8.0) g/dL Albumin 3.8 (3.5-5.0) g/dL Urine Color Urine Appearance Urine pH (5.0-8.0) Ur Specific [place] (1.005-1.025) Urine Protein (NEG-TRACE) MG/DL Urine Glucose (UA) (NEG) MG/DL Urine Ketones (NEG) MG/DL Urine Blood (NEG) Urine Nitrite (NEG) Ur Leukocyte Esterase (NEG) COVID-19 (SHAAN) (Negative) COVID-19 Clin Com <KAHLIL Nunn - Last Filed: 08/10/21 22:34> Lab Results 08/10/21 08/10/21 08/10/21 Range/Units 19:56 19:56 20:07 WBC 7.8 (4.8-10.8) X10*3/uL RBC 4.32 D (4.20-5.50) X10*6/uL Hgb 11.4 L (12.0-16.0) g/dl Hct 36.3 L (37.0-47.0) % MCV 84.0 (80.0-98.0) fL MCH 26.4 L (27.0-33.0) pg MCHC 31.4 (31.0-35.0) g/dl RDW 15.9 (11.0-16.0) % Plt Count 220 (160-400) X10*3/uL MPV 11.9 (9.4-12.3) fL Immature Gran % (Auto) 0.1 (0.0-0.4) % Neut % (Auto) 52.7 (45-73) % Lymph % (Auto) 33.8 (20-40) % [place] % (Auto) 9.7 (2-11) % Eos % (Auto) 3.2 (0-4) % Baso % (Auto) 0.5 (0-2) % Lymph # (Auto) 2.6 (1.2-4.9) X10*3/uL [place] # (Auto) 0.8 (0.1-1.2) X10*3/uL Eos # (Auto) 0.3 (0.0-0.4) X10*3/uL Baso # (Auto) 0.0 (0.0-0.2) X10*3/uL Abs Immat Gran (auto) 0.01 (0.00-0.03) X10*3/uL Absolute Neuts (auto) 4.1 (2.0-8.3) x10*3/uL Absolute Nucleated RBC 0.000 (0.0-0.012) X10*3/uL Nucleated RBC % (auto) 0.0 (0.0-0.2) /100WBC ESR (0-20) MM/HR Sodium (135-145) mmol/L Potassium (3.3-5.1) mmol/L Chloride (96-108) mmol/L Carbon Dioxide (22-29) mmol/L Anion Gap (12-20) BUN (9-16) mg/dL Creatinine (0.5-1.4) mg/dL Estim Creat Clear Calc Estimated GFR Random Glucose (60-115) mg/dL Calcium (8.4-10.2) mg/dL Total Bilirubin (0.0-1.0) mg/dL AST (5-31) U/L ALT (0-31) U/L Alkaline Phosphatase (39-117) U/L C-Reactive Protein (< or = 0.50) mg/dL Total Protein (6.5-8.0) g/dL Albumin (3.5-5.0) g/dL Urine Color YELLOW Urine Appearance CLEAR Urine pH 5.5 (5.0-8.0) Ur Specific [place] >= 1.030 H (1.005-1.025) Urine Protein NEG (NEG-TRACE) MG/DL Urine Glucose (UA) NEG (NEG) MG/DL Urine Ketones NEG (NEG) MG/DL Urine Blood NEG (NEG) Urine Nitrite NEG (NEG) Ur Leukocyte Esterase NEG (NEG) COVID-19 (SHAAN) Negative (Negative) COVID-19 Clin Com See Note 08/10/21 08/10/21 Range/Units 20:07 20:07 WBC (4.8-10.8) X10*3/uL RBC (4.20-5.50) X10*6/uL Hgb (12.0-16.0) g/dl Hct (37.0-47.0) % MCV (80.0-98.0) fL MCH (27.0-33.0) pg MCHC (31.0-35.0) g/dl RDW (11.0-16.0) % Plt Count (160-400) X10*3/uL MPV (9.4-12.3) fL Immature Gran % (Auto) (0.0-0.4) % Neut % (Auto) (45-73) % Lymph % (Auto) (20-40) % [place] % (Auto) (2-11) % Eos % (Auto) (0-4) % Baso % (Auto) (0-2) % Lymph # (Auto) (1.2-4.9) X10*3/uL [place] # (Auto) (0.1-1.2) X10*3/uL Eos # (Auto) (0.0-0.4) X10*3/uL Baso # (Auto) (0.0-0.2) X10*3/uL Abs Immat Gran (auto) (0.00-0.03) X10*3/uL Absolute Neuts (auto) (2.0-8.3) x10*3/uL Absolute Nucleated RBC (0.0-0.012) X10*3/uL Nucleated RBC % (auto) (0.0-0.2) /100WBC ESR 7 (0-20) MM/HR Sodium 140 (135-145) mmol/L Potassium 3.9 (3.3-5.1) mmol/L Chloride 111 H (96-108) mmol/L Carbon Dioxide 21 L (22-29) mmol/L Anion Gap 12 (12-20) BUN 17 H (9-16) mg/dL Creatinine 0.82 (0.5-1.4) mg/dL Estim Creat Clear Calc 87.7 Estimated GFR > 60 Random Glucose 77 (60-115) mg/dL Calcium 9.3 (8.4-10.2) mg/dL Total Bilirubin 0.2 (0.0-1.0) mg/dL AST 18 (5-31) U/L ALT 16 (0-31) U/L Alkaline Phosphatase 100 (39-117) U/L C-Reactive Protein 0.74 H (< or = 0.50) mg/dL Total Protein 7.0 (6.5-8.0) g/dL Albumin 3.8 (3.5-5.0) g/dL Urine Color Urine Appearance Urine pH (5.0-8.0) Ur Specific [place] (1.005-1.025) Urine Protein (NEG-TRACE) MG/DL Urine Glucose (UA) (NEG) MG/DL Urine Ketones (NEG) MG/DL Urine Blood (NEG) Urine Nitrite (NEG) Ur Leukocyte Esterase (NEG) COVID-19 (SHAAN) (Negative) COVID-19 Clin Com <Jonathon Hinojosa MD - Last Filed: 08/11/21 01:08> Critical Care Time Critical Care Time Critical Care Time: No <KAHLIL Nunn - Last Filed: 08/10/21 22:34> Discharge Plan Discharge Clinical Impression: Abdominal pain, Colitis <KAHLIL Nunn - Last Filed: 08/10/21 22:34> Patient Disposition: Home, Self-Care <KAHLIL Nunn - Last Filed: 08/10/21 22:34> Instructions: Abdominal Pain (ED) <KAHLIL Nunn - Last Filed: 08/10/21 22:34> Additional Instructions: Take amoxicillin 500 mg pills, 2 pills every 12 hours for 7 days. Take Flagyl (metronidazole) 500 mg pills, 1 pill 3 times a day for 7 days. Take ibuprofen 200 mg pills, 3 pills every 6 hours as needed for pain. Take Tylenol (acetaminophen) 500 mg pills, 2 pills every 4-6 hours as needed for pain. For pain not relieved by ibuprofen or Tylenol take morphine acute 15 mg pills, 1 pill every 4-6 hours as needed for pain. Do not drive or work while taking this medication since they can cause sleepiness. Morphine is a narcotic medication that can be addicting. If you are concerned about addiction you can ask the pharmacist for less pills or do not get this prescription filled. While you are taking morphine do not take any other narcotic medications such as oxycodone or tramadol. Follow-up with your primary care provider this week. Follow-up with GI this week. Return to the emergency department with new or worsening symptoms. In case of emergency call 911 <KAHLIL Nunn - Last Filed: 08/10/21 22:34> Prescriptions: New amoxicillin 500 mg capsule 500 mg PO TID 10 Days Qty: 30 RF: 0 metronidazole 500 mg tablet 500 mg PO TID 7 Days Qty: 21 RF: 0 morphine 15 mg tablet 15 mg PO Q4-6H PRN (Reason: pain) Qty: 10 RF: 0 No Action multivitamin Tablet 1 tab PO QAM RF: 0 clonazepam 1 mg tablet 1 tab PO BEDTIME PRN (Reason: Sleep) RF: 0 amitriptyline 25 mg tablet 2 tab PO BEDTIME RF: 0 methotrexate sodium 2.5 mg tablet 25 mg PO TU RF: 0 docusate sodium 100 mg capsule 1 cap PO BID RF: 0 montelukast 10 mg tablet 1 tab PO BEDTIME RF: 0 ergocalciferol (vitamin D2) 1,250 mcg (50,000 unit) capsule 1 cap PO WE RF: 0 topiramate 100 mg tablet 1 tab PO BID RF: 0 vitamin B complex-folic acid [B Complex 1 (with folic acid)] 0.4 mg tablet 1 tab PO QAM RF: 0 doxazosin 2 mg tablet 1 tab PO BEDTIME RF: 0 paroxetine HCl 20 mg Tablet 20 mg PO DAILY Qty: 30 RF: 0 mirtazapine 15 mg Tablet 15 mg PO BEDTIME Qty: 30 RF: 0 risperidone 1 mg Tablet 1 mg PO BID Qty: 60 RF: 0 albuterol sulfate 2.5 mg /3 mL (0.083 %) solution for nebulization 1 amp inhalation Q6H PRN (Reason: Wheezing) RF: 0 Eliquis 5 mg tablet 5 mg PO BID RF: 0 albuterol sulfate [ProAir HFA] 90 mcg/actuation HFA aerosol inhaler 2 puff PO QID PRN (Reason: Dyspnea) RF: 0 esomeprazole magnesium 20 mg capsule,delayed release(DR/EC) 1 cap PO QAM RF: 0 clonazepam 0.5 mg tablet 1 tab PO DAILY RF: 0 baclofen 10 mg tablet 1 tab PO TID PRN (Reason: muscle spasm) RF: 0 hydroxyzine HCl 25 mg tablet 1 - 2 tab PO RF: 0 Stelara 90 mg/mL syringe 90 mg subcut Q4W RF: 0 calcium carbonate-vitamin D3 600 mg(1,500mg) -400 unit tablet 1 tab PO BID RF: 0 buspirone 5 mg tablet 1 tab PO DAILY RF: 0 lidocaine 4 % Adhesive Patch,Medicated 1 patch TOPICAL DAILY PRN (Reason: Breakthrough Pain) RF: 0 calcium carbonate [Tums E-X] 300 mg (750 mg) Tablet,Chewable 300 mg PO BID PRN (Reason: Heartburn) RF: 0 zolpidem 10 mg tablet 1 tab PO BEDTIME PRN (Reason: Sleep) RF: 0 oxycodone 5 mg tablet 5 mg PO Q6H PRN (Reason: pain (scale score 7-10)) Qty: 14 RF: 0 lidocaine 5 % adhesive patch,medicated 1 patch topical DAILY PRN (Reason: pain) Qty: 15 RF: 0 acetaminophen [Tylenol] 325 mg tablet 325 mg PO QID PRN (Reason: pain) Qty: 14 RF: 0 <KAHLIL Nunn - Last Filed: 08/10/21 22:34> Referrals: Vieira,Tuyyab, MD [Physician] - 2 days Physician,Unknown J [Primary Care Provider] - 2 days <KAHLIL Nunn - Last Filed: 08/10/21 22:34>
[2021-08-10 19:53] VITALS: BP 135/83; PULSE 63; RESP 16; O2SAT 97
[2021-08-10 20:15] LABS: MANUAL DIFF FLAG NO
[2021-08-10 20:17] LABS: Basophils Percent Auto 0.5 % (0-2); Eosinophils Absolute Auto 0.3 X10*3/uL (0.0-0.4); Eosinophils Percent Auto 3.2 % (0-4); Hematocrit 36.3 % (37.0-47.0); Hemoglobin 11.4 g/dl (12.0-16.0); Imm Gran Abs Auto 0.01 X10*3/uL (0.00-0.03); Imm Gran Pct Auto 0.1 % (0.0-0.4); Lymphocytes Absolute Auto 2.6 X10*3/uL (1.2-4.9); Lymphocytes Percent Auto 33.8 % (20-40); Mean Corpuscular HGB Conc 31.4 g/dl (31.0-35.0); Mean Corpuscular Hemoglobin 26.4 pg (27.0-33.0); Mean Platelet Volume 11.9 fL (9.4-12.3); Monocytes Absolute Auto 0.8 X10*3/uL (0.1-1.2); Monocytes Percent Auto 9.7 % (2-11); Neutrophils Absolute Auto 4.1 x10*3/uL (2.0-8.3); Neutrophils Percent Auto 52.7 % (45-73); Platelet Count 220 X10*3/uL (160-400); Red Blood Count 4.32 X10*6/uL (4.20-5.50); Red Cell Distribution Width 15.9 % (11.0-16.0); White Blood Count 7.8 X10*3/uL (4.8-10.8)
[2021-08-10 20:17] LABS: Appearance Urine CLEAR; Color Urine YELLOW; Glucose Urine UA NEG (NEG); Leukocyte Esterase Urine NEG (NEG); Nitrite Urine NEG (NEG); PH 5.5 (5.0-8.0); Specific Gravity - Urine >= 1.030 (1.005-1.025); Urine Blood NEG (NEG); Urine Ketones NEG (NEG); Urine Protein NEG (NEG-TRACE)
[2021-08-10 20:38] LABS: Alanine Aminotransferase 16 U/L (0-31); Albumin Level 3.8 g/dL (3.5-5.0); Alkaline Phosphatase 100 U/L (39-117); Anion Gap 12 (12-20); Aspartate Amino Transferase 18 U/L (5-31); Bilirubin Total 0.2 mg/dL (0.0-1.0); Blood Urea Nitrogen 17 mg/dL (9-16); Calcium 9.3 mg/dL (8.4-10.2); Carbon Dioxide 21 mmol/L (22-29); Chloride 111 mmol/L (96-108); Creatinine Clr Calc Pharmacy 87.7; Estimated Glomerular Filt Rate > 60; Glucose Random 77 mg/dL (60-115); Potassium 3.9 mmol/L (3.3-5.1); Sodium 140 mmol/L (135-145)
[2021-08-10 20:40] LABS: COVID-19 Test Negative (Negative)
[2021-08-10 21:18] LABS: C Reactive Protein 0.74 mg/dL (< or = 0.50)
[2021-08-10 21:38] VITALS: RESP 16
[2021-08-10] MEDS: Morphine Sulfate 4 MG/ML CARTRIDGE IVPUSH ×2 (21:38→23:33)
[2021-08-10] MEDS: 0.9 % Sodium Chloride 1,000 ML 999 ML IV ×2 (21:39)
[2021-08-10] MEDS: iohexoL 350 MG/ML 100 ML INFUS..BTL 85 ML IV (21:49)
--- NOTE | 2021-08-10 21:51 | PC.NURSE ---
IV PLACED TO [facility]FA, PT MEDICATED FOR PAIN. PT TO CT IN [facility]RET[facility].
[2021-08-10 22:17] LABS: Erythrocyte Sedimentation Rate 7 MM/HR (0-20)
[2021-08-10] MEDS: ondansetron HCL 4 MG/2 ML VIAL IVPUSH (22:59)
[2021-08-10 23:33] VITALS: RESP 18
[2021-08-11 01:00] VITALS: BP 131/76; PULSE 67; RESP 16; O2SAT 97
[2021-08-11 01:20] VITALS: RESP 16
[2021-08-11] MEDS: metroNIDAZOLE 500 MG TABLET PO (01:20)
[2021-08-11] MEDS: Amoxicillin 500 MG CAPSULE 1000 MG PO (01:20)
[2021-08-11] MEDS: Morphine Sulfate 4 MG/ML CARTRIDGE IVPUSH (01:20)
[2021-08-11 01:23] VITALS: BP 130/74; PULSE 66; RESP 16
[2021-08-11 02:07] VITALS: BP 141/79; PULSE 87; RESP 16; O2SAT 98
== END 2021-08-11 02:09 | disposition home or self-care (01) ==
PROVIDERS: Emergency Medicine; Physician Assistant; Emergency Provider Emergency Medicine Emergency Medical Services
DX: K52.9 Noninfective gastroenteritis and colitis, unspecified (principal); M79.10 Myalgia, unspecified site; Z20.822 Contact with and (suspected) exposure to COVID-19; Z79.899 Other long term (current) drug therapy
CPT/HCPCS: 36415; 74177; 80053; 81003; 85025; 85652; 86140; 87635; 96361; 96374; 96375; 96376; 99283; 99285; J2270; J2405; Q9967

== ENCOUNTER 2021-08-14 11:54 | Outpatient (REF) | payer MEDICAID, SELFPAY | END 2021-08-14 11:55 | disposition home or self-care (01) | LOC: HO.MDS 11:54 | PROVIDERS: PCP Internal Medicine; Visit Provider Internal Medicine Gastroenterology | DX: K50.118 Crohn's disease of large intestine with other complication (principal) | CPT/HCPCS: 96372; J3357 ==

== ENCOUNTER 2021-08-20 03:36 | Emergency (ER) | payer MEDICAID, SELFPAY ==
--- NOTE | ~2021-08-20 | CT_ITS ---
EXAMINATION: CT ABDOMEN AND PELVIS WITHOUT CONTRAST CLINICAL INFORMATION: Left-sided abdominal pain COMPARISON: 08/10/2021 TECHNIQUE: Multidetector volumetric imaging was performed from the superior aspect of the liver through the pubic symphysis. Sagittal and coronal reformatted images were obtained on the technologist's workstation. This CT examination was performed using dose optimization techniques as appropriate, variously including the following: *Automated exposure control *Adjustment of mA and/or kV according to patient size (this includes techniques or standardized protocols for targeted exams where dose is matched to indication/reason for exam; i.e. extremities or head) *Use of iterative reconstruction technique DLP: 728 mGy-cm FINDINGS: LUNG BASES: The visualized lung bases are unremarkable. LIVER, GALLBLADDER, AND BILIARY TREE: The liver is normal in size, shape, and attenuation. No focal hepatic lesion or biliary ductal dilatation is present. The gallbladder is unremarkable with no evidence of radiopaque gallstones, gallbladder wall thickening, or obvious pericholecystic inflammatory changes. PANCREAS: Unremarkable. SPLEEN: Unremarkable. ADRENAL GLANDS: Unremarkable. KIDNEYS AND URETERS: The kidneys are normal in size, shape, and attenuation. No hydronephrosis, hydroureter, or calculi seen. No perinephric stranding. BLADDER: Unremarkable. GASTROINTESTINAL TRACT: The stomach is unremarkable. Normal caliber of the small bowel. There is no obstruction. Normal appendix. Persistent area of wall thickening of the sigmoid colon with mild adjacent inflammation. Surgical clips again noted in this area. Scattered colonic diverticulosis. ABDOMINAL WALL: No significant hernia is appreciated. Evidence of prior hernia repair. LYMPH NODES: Normal. Redemonstration of a judy mesentery . VASCULAR: Normal caliber aorta with mild atherosclerotic calcification. PELVIC VISCERA: The uterus and adnexa are unremarkable. OSSEOUS STRUCTURES: No acute or suspicious osseous abnormality. Mild degenerative changes of the spine. CT/CT abdomen pelvis wo con IMPRESSION: Lack of IV contrast is somewhat limiting. Persistent appearance of focal wall thickening with luminal narrowing of the sigmoid colon, unchanged from prior. Based on prior imaging, this could again be associated with the Crohn's history. This may represent an area of stricturing. It is difficult to exclude neoplastic process, though this is a long-standing finding. Fleischner guidelines were followed.
[2021-08-20 03:40] VITALS: RESP 18; BMI 44.2
[2021-08-20 03:46] VITALS: BP 129/82; PULSE 74; RESP 16; TEMP 36.7; O2SAT 95
[2021-08-20 04:27] LABS: Appearance Urine CLEAR; Color Urine YELLOW; Glucose Urine UA NEG (NEG); Leukocyte Esterase Urine TRACE (NEG); Nitrite Urine NEG (NEG); Specific Gravity - Urine 1.025 (1.005-1.025); UACC Culture Trigger YES; Urine Blood TRACE (NEG); Urine Ketones NEG (NEG); Urine Protein NEG (NEG-TRACE)
[2021-08-20 04:34] LABS: Bacteria Urine 1+ /LPF; Mucus Urine 1+ /LPF; RBC Urine 0-2 /HPF (0); Squamous Epithelial Cell Urine 2+ /LPF; WBC Urine 0-2 /HPF (0-4)
[2021-08-20 04:40] LABS: MANUAL DIFF FLAG NO
[2021-08-20 04:41] LABS: Basophils Absolute Auto 0.1 X10*3/uL (0.0-0.2); Basophils Percent Auto 0.8 % (0-2); Eosinophils Absolute Auto 0.2 X10*3/uL (0.0-0.4); Hematocrit 32.5 % (37.0-47.0); Imm Gran Abs Auto 0.01 X10*3/uL (0.00-0.03); Imm Gran Pct Auto 0.2 % (0.0-0.4); Lymphocytes Absolute Auto 2.1 X10*3/uL (1.2-4.9); Mean Corpuscular HGB Conc 30.8 g/dl (31.0-35.0); Mean Corpuscular Hemoglobin 25.7 pg (27.0-33.0); Mean Corpuscular Volume 83.5 fL (80.0-98.0); Mean Platelet Volume 11.6 fL (9.4-12.3); Monocytes Absolute Auto 0.9 X10*3/uL (0.1-1.2); Monocytes Percent Auto 13.6 % (2-11); Neutrophils Percent Auto 48.4 % (45-73); Platelet Count 220 X10*3/uL (160-400); Red Blood Count 3.89 X10*6/uL (4.20-5.50); Red Cell Distribution Width 15.9 % (11.0-16.0); White Blood Count 6.2 X10*3/uL (4.8-10.8)
[2021-08-20 04:44] LABS: COVID-19 Test Negative (Negative); IDNOW Serial# 9DD0AD1C
[2021-08-20 04:46] LABS: INTERNATIONAL NORM RATIO 1.2 (0.9-1.1); Prothrombin Time 13.7 SEC (9.9-13.0)
[2021-08-20 04:50] LABS: Lactic Acid 0.8 mmol/L (0.5-2.0)
[2021-08-20 04:57] LABS: Alanine Aminotransferase 18 U/L (0-31); Albumin Level 3.5 g/dL (3.5-5.0); Alkaline Phosphatase 91 U/L (39-117); Anion Gap 9 (12-20); Aspartate Amino Transferase 19 U/L (5-31); Bilirubin Total < 0.2 mg/dL (0.0-1.0); Blood Urea Nitrogen 21 mg/dL (9-16); Calcium 9.1 mg/dL (8.4-10.2); Carbon Dioxide 22 mmol/L (22-29); Chloride 112 mmol/L (96-108); Creatinine Clr Calc Pharmacy 93.8; Estimated Glomerular Filt Rate > 60; Glucose Random 100 mg/dL (60-115); Potassium 3.6 mmol/L (3.3-5.1); Sodium 139 mmol/L (135-145); Total Protein 6.8 g/dL (6.5-8.0)
--- NOTE | 2021-08-20 05:14 | ED.ABDPAIN ---
HPI - Abdominal Pain General Chief Complaint: Abdominal Pain Stated Complaint: Abd pain Time Seen by Provider: 08/20/21 03:52 Source: patient Mode of arrival: EMS History of Present Illness HPI narrative: 50-year-old female with chronic abdominal pain and history of Crohn's presents via EMS with same abdominal pain that is on the left more than the right and has been associated with nausea but no vomiting and she reports she has also had some diarrhea as well as chills. Patient was seen here on 08/10 and at that time was discharged home and received a course of antibiotics as well as oral morphine for pain control. Patient states that she followed up with GI last week, but unable to locate the note at this time. Patient endorses that she has been scheduled for pain management, but states that her 1st appointment is not until August. Related Data Home Medications Medication Instructions Recorded Confirmed amitriptyline 25 mg tablet 2 tab PO BEDTIME 03/22/21 06/25/21 clonazepam 1 mg tablet 1 tab PO BEDTIME PRN 03/22/21 06/25/21 docusate sodium 100 mg capsule 1 cap PO BID 03/22/21 06/25/21 doxazosin 2 mg tablet 1 tab PO BEDTIME 03/22/21 06/25/21 ergocalciferol (vitamin D2) 1,250 1 cap PO WE 03/22/21 06/25/21 mcg (50,000 unit) capsule methotrexate sodium 2.5 mg tablet 25 mg PO TU 03/22/21 06/25/21 montelukast 10 mg tablet 1 tab PO BEDTIME 03/22/21 06/25/21 multivitamin 1 tab PO QAM 03/22/21 06/25/21 topiramate 100 mg tablet 1 tab PO BID 03/22/21 06/25/21 vitamin B complex-folic acid 0.4 1 tab PO QAM 03/22/21 06/25/21 mg tablet (B Complex 1 (with folic acid)) albuterol sulfate 1 amp INHALATION Q6H PRN 06/13/21 06/25/21 albuterol sulfate 90 mcg/actuation 2 puff PO QID PRN 06/13/21 06/25/21 aerosol inhaler (ProAir HFA) apixaban 5 mg tablet (Eliquis) 5 mg PO BID 06/13/21 06/26/21 esomeprazole magnesium 20 mg 1 cap PO QAM 06/13/21 06/25/21 capsule,delayed release baclofen 10 mg tablet 1 tab PO TID PRN 06/25/21 06/25/21 buspirone 5 mg tablet 1 tab PO DAILY 06/25/21 06/25/21 calcium carbonate 300 mg (750 mg) 300 mg PO BID PRN 06/25/21 06/25/21 chewable tablet (Tums E-X) calcium carbonate 600 mg-vitamin 1 tab PO BID 06/25/21 06/25/21 D3 10 mcg (400 unit) tablet clonazepam 0.5 mg tablet 1 tab PO DAILY 06/25/21 06/25/21 hydroxyzine HCl 25 mg tablet 1 - 2 tab PO 06/25/21 06/25/21 lidocaine 4 % topical patch 1 patch TOPICAL DAILY PRN 06/25/21 06/25/21 zolpidem 10 mg tablet 1 tab PO BEDTIME PRN 06/25/21 06/25/21 Previous Rx's Medication Instructions Recorded mirtazapine 15 mg tablet 15 mg PO BEDTIME #30 tab 04/04/21 paroxetine HCl 20 mg tablet 20 mg PO DAILY #30 tab 04/04/21 risperidone 1 mg tablet 1 mg PO BID #60 tab 04/04/21 oxycodone 5 mg tablet 5 mg PO Q6H PRN #14 tab 06/27/21 acetaminophen 325 mg tablet 325 mg PO QID PRN #14 tab 07/18/21 (Tylenol) lidocaine 5 % topical patch 1 patch TOPICAL DAILY PRN #15 ea 07/18/21 amoxicillin 500 mg capsule 500 mg PO TID 10 Days #30 cap 08/11/21 metronidazole 500 mg tablet 500 mg PO TID 7 Days #21 tab 08/11/21 morphine 15 mg immediate release 15 mg PO Q4-6H PRN #10 tab 08/11/21 tablet ustekinumab 90 mg/mL subcutaneous 90 mg SUBCUT Q4W 28 Days #1 ml 08/17/21 syringe (Luis) Allergies Allergy/AdvReac Type Severity Reaction Status Date / Time aspirin [ASA] Allergy Intermediate RASH Verified 08/10/21 18:26 azathioprine [From IMURAN] Allergy Intermediate PANCREATIC Verified 08/10/21 18:26 INFLAMMATION ibuprofen [IBUPROFEN] Allergy Intermediate TOLD NOT Verified 12/17/21 18:26 TO TAKE levofloxacin [From LEVAQUIN] Allergy Mild YEAST Verified 08/10/21 18:26 INFECTIONS Review of Systems Review of Systems Pertinent positives and negatives as stated in HPI 10 point review of systems is otherwise negative. Physical Exam Vital Signs: Vital Signs: Last Vital Signs Temp 98.3 F 08/20/21 05:53 Pulse 65 08/20/21 05:53 Resp 17 08/20/21 05:53 BP 164/77 H 08/20/21 05:53 Pulse Ox 97 08/20/21 05:53 BMI result Body Mass Index 44.2 VITAL SIGNS: Reviewed. GENERAL: Well developed, well nourished, in no acute distress. HEAD: Normocephalic/atraumatic, EYES: PERRLA, EOMI LUNGS: Normal breath sounds. SpO2<97> CARDIOVASCULAR: Regular rate and rhythm without noted murmurs, no JVD or lower extremity edema. ABDOMEN: Soft, mild tenderness on palpation without rebound to the left side, non-distended with bowel sounds. SKIN: Inspection of the skin reveals no rashes NEUROLOGIC: Alert and oriented x 4. Strength and sensation to light touch were grossly intact x 4. Course Course Course Narrative: 50-year-old female with history and clinical presentation consistent with chronic stricture noted on multiple CT scans and patient does endorse that she has been recommended to undergo an ostomy but states that she is ?not there yet?. Correspondingly patient experiences pain when stool gets backed up when it is unable to make it through this strictured area. Review of all investigations demonstrates no leukocytosis, CT scan is negative for any further acute findings. This case was discussed with Dr. Palafox who will see the patient today and this was communicated to the patient and on re-evaluation patient has had good resolution of her pain symptoms and will call the office this morning at 8:00 a.m. she is otherwise discharged home in stable condition. MDM - Abdominal Pain Lab Data Result diagrams: 08/20/21 04:34 08/20/21 04:34 Labs: Lab Results 08/20/21 08/20/21 08/20/21 Range/Units 04:21 04:21 04:34 WBC 6.2 (4.8-10.8) X10*3/uL RBC 3.89 L (4.20-5.50) X10*6/uL Hgb 10.0 L (12.0-16.0) g/dl Hct 32.5 L (37.0-47.0) % MCV 83.5 (80.0-98.0) fL MCH 25.7 L (27.0-33.0) pg MCHC 30.8 L (31.0-35.0) g/dl RDW 15.9 (11.0-16.0) % Plt Count 220 (160-400) X10*3/uL MPV 11.6 (9.4-12.3) fL Immature Gran % (Auto) 0.2 (0.0-0.4) % Neut % (Auto) 48.4 (45-73) % Lymph % (Auto) 34.0 (20-40) % Wheeler % (Auto) 13.6 H (2-11) % Eos % (Auto) 3.0 (0-4) % Baso % (Auto) 0.8 (0-2) % Lymph # (Auto) 2.1 (1.2-4.9) X10*3/uL Wheeler # (Auto) 0.9 (0.1-1.2) X10*3/uL Eos # (Auto) 0.2 (0.0-0.4) X10*3/uL Baso # (Auto) 0.1 (0.0-0.2) X10*3/uL Abs Immat Gran (auto) 0.01 (0.00-0.03) X10*3/uL Absolute Neuts (auto) 3.0 (2.0-8.3) x10*3/uL Absolute Nucleated RBC 0.000 (0.0-0.012) X10*3/uL Nucleated RBC % (auto) 0.0 (0.0-0.2) /100WBC PT (9.9-13.0) SEC INR (0.9-1.1) Sodium (135-145) mmol/L Potassium (3.3-5.1) mmol/L Chloride (96-108) mmol/L Carbon Dioxide (22-29) mmol/L Anion Gap (12-20) BUN (9-16) mg/dL Creatinine (0.5-1.4) mg/dL Estim Creat Clear Calc Estimated GFR Random Glucose (60-115) mg/dL Lactic Acid (0.5-2.0) mmol/L Calcium (8.4-10.2) mg/dL Total Bilirubin (0.0-1.0) mg/dL AST (5-31) U/L ALT (0-31) U/L Alkaline Phosphatase (39-117) U/L Total Protein (6.5-8.0) g/dL Albumin (3.5-5.0) g/dL Urine Color YELLOW Urine Appearance CLEAR Urine pH 6.0 (5.0-8.0) Ur Specific [place] 1.025 (1.005-1.025) Urine Protein NEG (NEG-TRACE) MG/DL Urine Glucose (UA) NEG (NEG) MG/DL Urine Ketones NEG (NEG) MG/DL Urine Blood TRACE (NEG) Urine Nitrite NEG (NEG) Ur Leukocyte Esterase TRACE H (NEG) Urine RBC 0-2 (0) /HPF Urine WBC 0-2 (0-4) /HPF Ur Squamous Epith Cells 2+ /LPF Urine Bacteria 1+ /LPF Urine Mucus 1+ /LPF COVID-19 (SHAAN) Negative (Negative) COVID-19 Clin Com See Note 08/20/21 08/20/21 08/20/21 Range/Units 04:34 04:34 04:34 WBC (4.8-10.8) X10*3/uL RBC (4.20-5.50) X10*6/uL Hgb (12.0-16.0) g/dl Hct (37.0-47.0) % MCV (80.0-98.0) fL MCH (27.0-33.0) pg MCHC (31.0-35.0) g/dl RDW (11.0-16.0) % Plt Count (160-400) X10*3/uL MPV (9.4-12.3) fL Immature Gran % (Auto) (0.0-0.4) % Neut % (Auto) (45-73) % Lymph % (Auto) (20-40) % Wheeler % (Auto) (2-11) % Eos % (Auto) (0-4) % Baso % (Auto) (0-2) % Lymph # (Auto) (1.2-4.9) X10*3/uL Wheeler # (Auto) (0.1-1.2) X10*3/uL Eos # (Auto) (0.0-0.4) X10*3/uL Baso # (Auto) (0.0-0.2) X10*3/uL Abs Immat Gran (auto) (0.00-0.03) X10*3/uL Absolute Neuts (auto) (2.0-8.3) x10*3/uL Absolute Nucleated RBC (0.0-0.012) X10*3/uL Nucleated RBC % (auto) (0.0-0.2) /100WBC PT 13.7 H (9.9-13.0) SEC INR 1.2 H (0.9-1.1) Sodium 139 (135-145) mmol/L Potassium 3.6 (3.3-5.1) mmol/L Chloride 112 H (96-108) mmol/L Carbon Dioxide 22 (22-29) mmol/L Anion Gap 9 L (12-20) BUN 21 H (9-16) mg/dL Creatinine 0.87 (0.5-1.4) mg/dL Estim Creat Clear Calc 93.8 Estimated GFR > 60 Random Glucose 100 (60-115) mg/dL Lactic Acid 0.8 (0.5-2.0) mmol/L Calcium 9.1 (8.4-10.2) mg/dL Total Bilirubin < 0.2 (0.0-1.0) mg/dL AST 19 (5-31) U/L ALT 18 (0-31) U/L Alkaline Phosphatase 91 (39-117) U/L Total Protein 6.8 (6.5-8.0) g/dL Albumin 3.5 (3.5-5.0) g/dL Urine Color Urine Appearance Urine pH (5.0-8.0) Ur Specific [place] (1.005-1.025) Urine Protein (NEG-TRACE) MG/DL Urine Glucose (UA) (NEG) MG/DL Urine Ketones (NEG) MG/DL Urine Blood (NEG) Urine Nitrite (NEG) Ur Leukocyte Esterase (NEG) Urine RBC (0) /HPF Urine WBC (0-4) /HPF Ur Squamous Epith Cells /LPF Urine Bacteria /LPF Urine Mucus /LPF COVID-19 (SHAAN) (Negative) COVID-19 Clin Com Discharge Plan Discharge Clinical Impression: Abdominal pain, Crohn's disease, Colon stricture Patient Disposition: Home, Self-Care Instructions: Colon Stricture (DC) Additional Instructions: 1. Ligue para o escrit?dalila do Dr. Palafox. As informa??es s?o fornecidas a seguir. 2. Retome todos os medicamentos caseiros conforme prescrito. Retorne ao pronto-charles para piora dos sintomas. Prescriptions: No Action Stelara 90 mg/mL syringe 90 mg subcut Q4W 28 Days Qty: 1 RF: 3 multivitamin Tablet 1 tab PO QAM RF: 0 clonazepam 1 mg tablet 1 tab PO BEDTIME PRN (Reason: Sleep) RF: 0 amitriptyline 25 mg tablet 2 tab PO BEDTIME RF: 0 methotrexate sodium 2.5 mg tablet 25 mg PO TU RF: 0 docusate sodium 100 mg capsule 1 cap PO BID RF: 0 montelukast 10 mg tablet 1 tab PO BEDTIME RF: 0 ergocalciferol (vitamin D2) 1,250 mcg (50,000 unit) capsule 1 cap PO WE RF: 0 topiramate 100 mg tablet 1 tab PO BID RF: 0 vitamin B complex-folic acid [B Complex 1 (with folic acid)] 0.4 mg tablet 1 tab PO QAM RF: 0 doxazosin 2 mg tablet 1 tab PO BEDTIME RF: 0 paroxetine HCl 20 mg Tablet 20 mg PO DAILY Qty: 30 RF: 0 mirtazapine 15 mg Tablet 15 mg PO BEDTIME Qty: 30 RF: 0 risperidone 1 mg Tablet 1 mg PO BID Qty: 60 RF: 0 albuterol sulfate 2.5 mg /3 mL (0.083 %) solution for nebulization 1 amp inhalation Q6H PRN (Reason: Wheezing) RF: 0 Eliquis 5 mg tablet 5 mg PO BID RF: 0 albuterol sulfate [ProAir HFA] 90 mcg/actuation HFA aerosol inhaler 2 puff PO QID PRN (Reason: Dyspnea) RF: 0 esomeprazole magnesium 20 mg capsule,delayed release(DR/EC) 1 cap PO QAM RF: 0 clonazepam 0.5 mg tablet 1 tab PO DAILY RF: 0 baclofen 10 mg tablet 1 tab PO TID PRN (Reason: muscle spasm) RF: 0 hydroxyzine HCl 25 mg tablet 1 - 2 tab PO RF: 0 calcium carbonate-vitamin D3 600 mg(1,500mg) -400 unit tablet 1 tab PO BID RF: 0 buspirone 5 mg tablet 1 tab PO DAILY RF: 0 lidocaine 4 % Adhesive Patch,Medicated 1 patch TOPICAL DAILY PRN (Reason: Breakthrough Pain) RF: 0 calcium carbonate [Tums E-X] 300 mg (750 mg) Tablet,Chewable 300 mg PO BID PRN (Reason: Heartburn) RF: 0 zolpidem 10 mg tablet 1 tab PO BEDTIME PRN (Reason: Sleep) RF: 0 oxycodone 5 mg tablet 5 mg PO Q6H PRN (Reason: pain (scale score 7-10)) Qty: 14 RF: 0 lidocaine 5 % adhesive patch,medicated 1 patch topical DAILY PRN (Reason: pain) Qty: 15 RF: 0 acetaminophen [Tylenol] 325 mg tablet 325 mg PO QID PRN (Reason: pain) Qty: 14 RF: 0 amoxicillin 500 mg capsule 500 mg PO TID 10 Days Qty: 30 RF: 0 metronidazole 500 mg tablet 500 mg PO TID 7 Days Qty: 21 RF: 0 morphine 15 mg tablet 15 mg PO Q4-6H PRN (Reason: pain) Qty: 10 RF: 0 Referrals: Libby Palafox MD [Physician] - 2 days (Colon stricture) Print Language: [facility] Past Medical History Source: nursing notes reviewed Medical History Anxiety Asthma Cancer Crohn's colitis Crohn's disease Depression GERD (gastroesophageal reflux disease) Hemorrhagic cyst of ovary HTN (hypertension) Hyperlipidemia Iron deficiency anemia Kidney stones Migraine Normocytic anemia PTSD (post-traumatic stress disorder) Pulmonary embolism Recurrent major depression-severe Rheumatoid arthritis Sleep apnea Surgical History History of colon resection Hx of colonoscopy (~10/2018) Hx of cystoscopy Hx of cystoscopy Hx of dilation and curettage Hx of endoscopy Social History Social History Household Members: None Housing: Apartment Do you presently have visiting nurse or other home services: No Alcohol intake: never Patient Tobacco Use Status: Former Tobacco user Quit Date: 2001 Tobacco use type: Cigarette Years Smoked: 10 Second Hand Smoke Exposure: No Substance Use Type: Marijuana Advance Directives: No Advance Directives Information Provided: No Advance Directives Date on File: 07/06/14 Patient : No service: No Current occupational status: disabled Sexual orientation: Straight/Heterosexual
[2021-08-20 05:53] VITALS: BP 164/77; PULSE 65; RESP 17; TEMP 36.8; O2SAT 97
[2021-08-20] MEDS: oxyCODONE HCl Immed Release 5 MG TABLET 10 MG PO (07:00)
[2021-08-20 08:18] VITALS: BP 134/67; PULSE 76; RESP 17; O2SAT 98
== END 2021-08-20 08:19 | disposition home or self-care (01) ==
PROVIDERS: Emergency Provider Student in an Organized Health Care Education/Training Program
DX: R10.9 Unspecified abdominal pain (principal); K50.90 Crohn's disease, unspecified, without complications; K56.699 Other intestinal obstruction unspecified as to partial versus complete obstruction; I10 Essential (primary) hypertension; J45.909 Unspecified asthma, uncomplicated; Z20.822 Contact with and (suspected) exposure to COVID-19
CPT/HCPCS: 36415; 74176; 80053; 81001; 83605; 85025; 85610; 87040; 87086; 87635; 99284

== ENCOUNTER 2021-08-25 17:25 | Emergency (ER) | payer MEDICAID, SELFPAY ==
--- NOTE | ~2021-08-25 | CT_ITS ---
EXAMINATION: CT SOFT TISSUE NECK WITH CONTRAST CLINICAL INFORMATION: Right parotid mass growing for one year COMPARISON: Cervical spine 03/21/2021 TECHNIQUE: Following the intravenous administration of 60 mL of Omnipaque 350 intravenous contrast, helical imaging was performed in the axial plane with generation of coronal and sagittal reformatted images. This CT examination was performed using dose optimization techniques as appropriate, variously including the following: *Automated exposure control *Adjustment of mA and/or kV according to patient size (this includes techniques or standardized protocols for targeted exams where dose is matched to indication/reason for exam; i.e. extremities or head) *Use of iterative reconstruction technique DLP: 561 mGy-cm FINDINGS: There is a soft tissue density mass in the right parotid gland measuring up to approximately 2 cm in diameter; this appears mildly increased in size from 03/21/2021 when measured approximately 1.7 cm. Current mass appearance is also somewhat more heterogeneous than on the prior study. There are a few borderline enlarged bilateral cervical lymph nodes which appear symmetric. The left parotid gland appears unremarkable. The submandibular glands are normal. No contour abnormality or pathologic enhancement is seen within the oral cavity or pharyngeal mucosal space. The laryngeal structures are normal. The parapharyngeal fat is preserved. The carotid sheath vasculature opacify normally. No retropharyngeal fluid collection is seen. The thyroid gland is normal. The superior mediastinum is unremarkable. The lung apices are clear. The mastoid air cells and visualized portions of the paranasal sinuses are well-aerated. The temporomandibular joints are normal. No osseous abnormalities are seen. The imaged portions of the brain parenchyma are unremarkable. CT/CT soft tissue neck w con IMPRESSION: Soft tissue mass measuring approximately 2 cm in the right parotid gland, which appears slightly increased in size from 03/21/2021. As previously noted, this may represent a pleomorphic adenoma, though other benign or malignant etiologies cannot be excluded. If not already performed, further evaluation with MRI is recommended, though FNA may also be performed.
[2021-08-25 17:37] VITALS: BP 144/83; PULSE 75; O2SAT 99
[2021-08-25 20:41] VITALS: BP 148/87; PULSE 71; RESP 16; TEMP 36.2; O2SAT 99; BMI 35.4
--- NOTE | 2021-08-25 22:16 | ED_ITS ---
HPI - General Adult General Chief complaint: General Medical Stated complaint: SWELLING AND PAIN BELOW EAR, HX OF CYST Time Seen by Provider: 08/25/21 21:56 Source: patient Mode of arrival: ambulatory Limitations: no limitations History of Present Illness HPI narrative: Patient comes to emergency room complaining of right facial pain and swelling. Patient states that she has had a lump in his right side of the parotid for over a year. Patient states that she was told to follow-up with ENT, but due to hospitalization uncommonly felt she could not follow up with ENT for the last year. Patient states that for the last couple of days the lump has grown in size and very painful. Patient denies fever or chills, no weight loss Related Data Home Medications Medication Instructions Recorded Confirmed amitriptyline 25 mg tablet 2 tab PO BEDTIME 03/22/21 06/25/21 clonazepam 1 mg tablet 1 tab PO BEDTIME PRN 03/22/21 06/25/21 docusate sodium 100 mg capsule 1 cap PO BID 03/22/21 06/25/21 doxazosin 2 mg tablet 1 tab PO BEDTIME 03/22/21 06/25/21 ergocalciferol (vitamin D2) 1,250 1 cap PO WE 03/22/21 06/25/21 mcg (50,000 unit) capsule methotrexate sodium 2.5 mg tablet 25 mg PO TU 03/22/21 06/25/21 montelukast 10 mg tablet 1 tab PO BEDTIME 03/22/21 06/25/21 multivitamin 1 tab PO QAM 03/22/21 06/25/21 topiramate 100 mg tablet 1 tab PO BID 03/22/21 06/25/21 vitamin B complex-folic acid 0.4 1 tab PO QAM 03/22/21 06/25/21 mg tablet (B Complex 1 (with folic acid)) albuterol sulfate 1 amp INHALATION Q6H PRN 06/13/21 06/25/21 albuterol sulfate 90 mcg/actuation 2 puff PO QID PRN 06/13/21 06/25/21 aerosol inhaler (ProAir HFA) apixaban 5 mg tablet (Eliquis) 5 mg PO BID 06/13/21 06/26/21 esomeprazole magnesium 20 mg 1 cap PO QAM 06/13/21 06/25/21 capsule,delayed release baclofen 10 mg tablet 1 tab PO TID PRN 06/25/21 06/25/21 buspirone 5 mg tablet 1 tab PO DAILY 06/25/21 06/25/21 calcium carbonate 300 mg (750 mg) 300 mg PO BID PRN 06/25/21 06/25/21 chewable tablet (Tums E-X) calcium carbonate 600 mg-vitamin 1 tab PO BID 06/25/21 06/25/21 D3 10 mcg (400 unit) tablet clonazepam 0.5 mg tablet 1 tab PO DAILY 06/25/21 06/25/21 hydroxyzine HCl 25 mg tablet 1 - 2 tab PO 06/25/21 06/25/21 lidocaine 4 % topical patch 1 patch TOPICAL DAILY PRN 06/25/21 06/25/21 zolpidem 10 mg tablet 1 tab PO BEDTIME PRN 06/25/21 06/25/21 Previous Rx's Medication Instructions Recorded mirtazapine 15 mg tablet 15 mg PO BEDTIME #30 tab 04/04/21 paroxetine HCl 20 mg tablet 20 mg PO DAILY #30 tab 04/04/21 risperidone 1 mg tablet 1 mg PO BID #60 tab 04/04/21 oxycodone 5 mg tablet 5 mg PO Q6H PRN #14 tab 06/27/21 acetaminophen 325 mg tablet 325 mg PO QID PRN #14 tab 07/18/21 (Tylenol) lidocaine 5 % topical patch 1 patch TOPICAL DAILY PRN #15 ea 07/18/21 amoxicillin 500 mg capsule 500 mg PO TID 10 Days #30 cap 08/11/21 metronidazole 500 mg tablet 500 mg PO TID 7 Days #21 tab 08/11/21 morphine 15 mg immediate release 15 mg PO Q4-6H PRN #10 tab 08/11/21 tablet ustekinumab 90 mg/mL subcutaneous 90 mg SUBCUT Q4W 28 Days #1 ml 08/17/21 syringe (Stelara) acetaminophen 325 mg tablet 325 mg PO QID #10 tab 08/25/21 (Tylenol) amoxicillin 500 mg-potassium 1 tab PO BID #14 tab 08/25/21 clavulanate 125 mg tablet (Augmentin) Allergies Allergy/AdvReac Type Severity Reaction Status Date / Time aspirin [ASA] Allergy Intermediate RASH Verified 08/25/21 20:39 azathioprine [From IMURAN] Allergy Intermediate PANCREATIC Verified 08/25/21 20:39 INFLAMMATION ibuprofen [IBUPROFEN] Allergy Intermediate TOLD NOT Verified 08/25/21 20:39 TO TAKE levofloxacin [From LEVAQUIN] Allergy Mild YEAST Verified 08/25/21 20:39 INFECTIONS Review of Systems Review of Systems: Constitutional : No Weight loss, No Fever, No Chills, No Night Sweats, No Fatigue, No Malaise ENT/Mouth : No Hearing loss, No Ear Pain, No Nasal Congestion, No Sinus Pain, No Hoarseness, No sore throat, No Rhinorrhea, No Swallowing Difficulty, complaining of right facial mass for a year which has been growing and now it is painful Eyes: No Eye Pain, No Swelling, No Redness, No Foreign Body, No Discharge, No Vi anupam Changes Cardiovascular : No Chest Pain, No SOB, No Dyspnea on Exertion, No Orthopnea, No Edema, No Palpitations Respiratory : No Cough, No Sputum, No Wheezing, No Smoke Exposure, No Dyspnea Gastrointestinal : No Nausea, No Vomiting, No Diarrhea, No Constipation, No abdominal Pain, No Hematochezia, No Melena Genitourinary : no irregular bleeding, No Dysuria, No Urinary Frequency, No Hematuria, No Urinary Incontinence, No Urgency, No Flank Pain, No Urinary Flow Changes, No Hesitancy Musculoskeletal : No joint pain, No Myalgias, No Joint Swelling Skin : No Skin Lesions, No rash Neuro : No Weakness, No Numbness, No Paresthesias, No Loss of Consciousness, No Dizziness, No Headache Psych : No Anxiety/Panic, No Depression, No SI/HI/AH/VH, No Social Issues, Heme/Lymph: No Bruising, No Bleeding,No Lymphadenopathy Endocrine : No Polyuria, No Polydipsia, No Temperature Intolerance [facility] Past Medical History Medical History Anxiety Asthma Cancer Crohn's colitis Crohn's disease Depression GERD (gastroesophageal reflux disease) Hemorrhagic cyst of ovary HTN (hypertension) Hyperlipidemia Iron deficiency anemia Kidney stones Migraine Normocytic anemia PTSD (post-traumatic stress disorder) Pulmonary embolism Recurrent major depression-severe Rheumatoid arthritis Sleep apnea Surgical History History of colon resection Hx of colonoscopy (~10/2018) Hx of cystoscopy Hx of cystoscopy Hx of dilation and curettage Hx of endoscopy Social History Social History Household Members: None Housing: Apartment Do you presently have visiting nurse or other home services: No Alcohol intake: never Patient Tobacco Use Status: Former Tobacco user Quit Date: 2001 Tobacco use type: Cigarette Years Smoked: 10 Second Hand Smoke Exposure: No Substance Use Type: Marijuana Advance Directives: No Advance Directives Information Provided: Yes Advance Directives Date on File: 07/06/14 service: No Current occupational status: disabled Sexual orientation: Straight/Heterosexual Physical Exam Vital Signs: Vital Signs: Last Vital Signs Temp 97.2 F 08/25/21 20:41 Pulse 71 08/25/21 20:41 Resp 16 08/25/21 20:41 BP 148/87 H 08/25/21 20:41 Pulse Ox 99 08/25/21 20:41 BMI result Body Mass Index 35.4 Const: Other: Appearance: Alert. Oriented X3. No acute distress. Eyes: Pupils equal, round and reactive to light. ENT: Pharynx normal. No exudates, no vesicles, no abscess is visualized. Patient does have an enlarged mass on the right parotid gland in front of the right ear Neck: Normal inspection. Neck supple. No lymph nodes noted. No crepitus CVS: Normal heart rate and rhythm. Pulses normal. Normal S1 and S2 Respiratory: No respiratory distress. Breath sounds normal. No Wheezing. No rales Abdomen: Soft and nontender. No rigidity. No distention. good BS x4 Skin: Skin warm and dry. Normal skin color. Normal skin turgor. Extremities: No lower extremity edema. No lower extremity edema. No Lacerations. No Rash Neuro: Oriented X 3. No motor deficit. No sensory deficit. Moving all extermities. No slurred speech. Course Course Course Narrative: Patient had labs drawn on August 20. Patient's creatinine was within normal limits. Patient have issues with her kidneys. I discussed the above mention with radiology, at this time, we do need new labs to do a CT with contrast. I discussed the CT findings with the patient, patient needs a fine-needle aspiration, needs to follow-up with ENT. Malignancy cannot be excluded. However, the patient states that the size of the lump increased from 1 day to the next. We will trial ibuprofen and antibiotics while patient's follows up with her primary care physician, she needs a referral to ENT. Medical Decision Making Imaging Data Soft tissue CT scan: Radiologist's impression: FINDINGS: There is a soft tissue density mass in the right parotid gland measuring up to approximately 2 cm in diameter; this appears mildly increased in size from 03/21/2021 when measured approximately 1.7 cm. Current mass appearance is also somewhat more heterogeneous than on the prior study. There are a few borderline enlarged bilateral cervical lymph nodes which appear symmetric. The left parotid gland appears unremarkable. The submandibular glands are normal. No contour abnormality or pathologic enhancement is seen within the oral cavity or pharyngeal mucosal space. The laryngeal structures are normal. The parapharyngeal fat is preserved. The carotid sheath vasculature opacify normally. No retropharyngeal fluid collection is seen. The thyroid gland is normal. The superior mediastinum is unremarkable. The lung apices are clear. The mastoid air cells and visualized portions of the paranasal sinuses are well-aerated. The temporomandibular joints are normal. No osseous abnormalities are seen. The imaged portions of the brain parenchyma are unremarkable. CT/CT soft tissue neck w con IMPRESSION: Soft tissue mass measuring approximately 2 cm in the right parotid gland, which appears slightly increased in size from 03/21/2021. As previously noted, this may represent a pleomorphic adenoma, though other benign or malignant etiologies cannot be excluded. If not already performed, further evaluation with MRI is recommended, though FNA may also be performed. 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 Malignancy/cancerous tumor cannot be excluded. You need to have a biopsy. Please follow-up with your primary care physician tomorrow. If you have any worsening or new symptoms, please return to the emergency room or call 911 [facility] ear, nose and throat [address] [place] [address] Prescriptions: New acetaminophen [Tylenol] 325 mg tablet 325 mg PO QID Qty: 10 RF: 0 amoxicillin-pot clavulanate [Augmentin] 500-125 mg tablet 1 tab PO BID Qty: 14 RF: 0 No Action Stelara 90 mg/mL syringe 90 mg subcut Q4W 28 Days Qty: 1 RF: 3 multivitamin Tablet 1 tab PO QAM RF: 0 clonazepam 1 mg tablet 1 tab PO BEDTIME PRN (Reason: Sleep) RF: 0 amitriptyline 25 mg tablet 2 tab PO BEDTIME RF: 0 methotrexate sodium 2.5 mg tablet 25 mg PO TU RF: 0 docusate sodium 100 mg capsule 1 cap PO BID RF: 0 montelukast 10 mg tablet 1 tab PO BEDTIME RF: 0 ergocalciferol (vitamin D2) 1,250 mcg (50,000 unit) capsule 1 cap PO WE RF: 0 topiramate 100 mg tablet 1 tab PO BID RF: 0 vitamin B complex-folic acid [B Complex 1 (with folic acid)] 0.4 mg tablet 1 tab PO QAM RF: 0 doxazosin 2 mg tablet 1 tab PO BEDTIME RF: 0 paroxetine HCl 20 mg Tablet 20 mg PO DAILY Qty: 30 RF: 0 mirtazapine 15 mg Tablet 15 mg PO BEDTIME Qty: 30 RF: 0 risperidone 1 mg Tablet 1 mg PO BID Qty: 60 RF: 0 albuterol sulfate 2.5 mg /3 mL (0.083 %) solution for nebulization 1 amp inhalation Q6H PRN (Reason: Wheezing) RF: 0 Eliquis 5 mg tablet 5 mg PO BID RF: 0 albuterol sulfate [ProAir HFA] 90 mcg/actuation HFA aerosol inhaler 2 puff PO QID PRN (Reason: Dyspnea) RF: 0 esomeprazole magnesium 20 mg capsule,delayed release(DR/EC) 1 cap PO QAM RF: 0 clonazepam 0.5 mg tablet 1 tab PO DAILY RF: 0 baclofen 10 mg tablet 1 tab PO TID PRN (Reason: muscle spasm) RF: 0 hydroxyzine HCl 25 mg tablet 1 - 2 tab PO RF: 0 calcium carbonate-vitamin D3 600 mg(1,500mg) -400 unit tablet 1 tab PO BID RF: 0 buspirone 5 mg tablet 1 tab PO DAILY RF: 0 lidocaine 4 % Adhesive Patch,Medicated 1 patch TOPICAL DAILY PRN (Reason: Breakthrough Pain) RF: 0 calcium carbonate [Tums E-X] 300 mg (750 mg) Tablet,Chewable 300 mg PO BID PRN (Reason: Heartburn) RF: 0 zolpidem 10 mg tablet 1 tab PO BEDTIME PRN (Reason: Sleep) RF: 0 oxycodone 5 mg tablet 5 mg PO Q6H PRN (Reason: pain (scale score 7-10)) Qty: 14 RF: 0 lidocaine 5 % adhesive patch,medicated 1 patch topical DAILY PRN (Reason: pain) Qty: 15 RF: 0 acetaminophen [Tylenol] 325 mg tablet 325 mg PO QID PRN (Reason: pain) Qty: 14 RF: 0 amoxicillin 500 mg capsule 500 mg PO TID 10 Days Qty: 30 RF: 0 metronidazole 500 mg tablet 500 mg PO TID 7 Days Qty: 21 RF: 0 morphine 15 mg tablet 15 mg PO Q4-6H PRN (Reason: pain) Qty: 10 RF: 0
[2021-08-25] MEDS: iohexoL 350 MG/ML 100 ML INFUS..BTL 65 ML IV (22:56)
== END 2021-08-26 00:45 | disposition home or self-care (01) ==
PROVIDERS: Emergency Provider Emergency Medicine; PCP Internal Medicine
DX: K11.6 Mucocele of salivary gland (principal); R22.1 Localized swelling, mass and lump, neck; M54.2 Cervicalgia; F17.210 Nicotine dependence, cigarettes, uncomplicated; Z71.6 Tobacco abuse counseling; Z79.899 Other long term (current) drug therapy
CPT/HCPCS: 70491; 99283; 99284; Q9967

== ENCOUNTER 2021-09-08 05:29 | Inpatient (IN) | payer MEDICAID, SELFPAY ==
[2021-09-08] VITALS (10 sets, daily range): BP systolic 107–144; BP diastolic 56–90; PULSE 60–79; RESP 14–18; TEMP 35.6–36.9; O2SAT 94–99; BMI 35.0
--- NOTE | ~2021-09-08 | XR_ITS ---
EXAMINATION: CR CHEST CLINICAL INFORMATION: Chest pain. COMPARISON: Chest x-ray and bilateral ribs dated 07/17/2021. TECHNIQUE: AP upright view of the chest was obtained. FINDINGS: The cardiomediastinal silhouette is within normal limits in size. Lungs bilaterally are symmetrically expanded. There is a small nodular density projected over the right mid lung, most consistent with a small vessel on end. No focal consolidation, effusion or pneumothorax is seen. Mild convex right thoracic scoliosis noted. XR/XR chest 1V IMPRESSION: No acute cardiopulmonary process.
--- NOTE | ~2021-09-08 | CT_ITS ---
EXAMINATION: CT ABDOMEN AND PELVIS WITH CONTRAST CLINICAL INFORMATION: Left-sided abdominal pain. History of Crohn's disease. COMPARISON: Multiple previous abdomen and pelvic CTs with the last abdomen and pelvic CT of 08/20/2021. TECHNIQUE: Multidetector volumetric images were obtained from the superior aspect of the liver through the pubic symphysis following administration 85 mL of Omnipaque 350 intravenous contrast. Sagittal and coronal reformatted images were obtained on the technologist's workstation. Oral contrast: No This CT examination was performed using dose optimization techniques as appropriate, variously including the following: *Automated exposure control *Adjustment of mA and/or kV according to patient size (this includes techniques or standardized protocols for targeted exams where dose is matched to indication/reason for exam; i.e. extremities or head) *Use of iterative reconstruction technique DLP: 767 mGy-cm FINDINGS: LUNG BASES: The visualized lung bases are unremarkable. LIVER, GALLBLADDER, AND BILIARY TREE: The liver is normal in size, shape, and attenuation. No focal hepatic lesion or biliary ductal dilatation is present. The gallbladder is unremarkable with no evidence of radiopaque gallstones, gallbladder wall thickening, or obvious pericholecystic inflammatory changes. PANCREAS: Unremarkable. SPLEEN: Unremarkable. ADRENAL GLANDS: Unremarkable. KIDNEYS AND URETERS: The kidneys are normal in size, shape, and attenuation. No hydronephrosis, hydroureter, or calculi seen. No perinephric stranding. BLADDER: Unremarkable. GASTROINTESTINAL TRACT: Focal narrowing of the segment of the proximal sigmoid colon with wall thickening and enhancement is noted with mild dilatation of the colon proximal to this level, somewhat similar finding is noted on multiple previous CT scans, for example including on the CT scan of 02/28/2017. Maximum diameter of the right-sided colon is 6.4 cm and of left-sided colon is 5.6 cm. The maximum diameter of the transverse colon is 4.1 cm. There is [id number] stool burden in the ascending, transverse and descending colon. There is no evidence of intestinal pneumatosis. ABDOMINAL WALL: Postsurgical changes of ventral abdominal wall hernia repair are seen with mesh in place. No evidence of recurrent hernia. LYMPH NODES: No evidence of pathologically enlarged lymph nodes. A 0.6 cm soft tissue nodule in the lower midpelvis (series 3 image 73) does not appear to be significantly changed compared to the previous CT of 03/22/2021, slightly more prominent compared to CT scan of 11/29/2019 (0.4 cm). VASCULAR: Unremarkable. PELVIC VISCERA: Unremarkable. OSSEOUS STRUCTURES: Stable. No acute or suspicious osseous lesion. Degenerative changes are noted at L5-S1 with narrowing of the disc space and small endplate osteophytes. Mild degenerative changes in the visualized lower thoracic spine. CT/CT abdomen pelvis w con IMPRESSION: Narrowing of the segment of the proximal sigmoid colon with wall enhancement and thickening is noted which is a chronic finding as seen on multiple previous CT scans; however, possibility of mild increased wall thickening and enhancement in the region cannot be completely excluded. Given the dilatation of the colon proximal to this level on current examination, possibility of at least partial obstruction related to the proximal sigmoid colon stricture is suspected. The findings are most probably related to patient's known inflammatory bowel disease; however, again possibility of neoplastic process here cannot be completely excluded. Fleischner guidelines were followed.
[2021-09-08 05:56] LABS: MANUAL DIFF FLAG NO
[2021-09-08 05:57] LABS: Basophils Percent Auto 0.6 % (0-2); Eosinophils Absolute Auto 0.2 X10*3/uL (0.0-0.4); Eosinophils Percent Auto 2.8 % (0-4); Hematocrit 35.3 % (37.0-47.0); Hemoglobin 11.2 g/dl (12.0-16.0); Imm Gran Abs Auto 0.01 X10*3/uL (0.00-0.03); Imm Gran Pct Auto 0.1 % (0.0-0.4); Lymphocytes Absolute Auto 2.2 X10*3/uL (1.2-4.9); Mean Corpuscular HGB Conc 31.7 g/dl (31.0-35.0); Mean Corpuscular Hemoglobin 25.5 pg (27.0-33.0); Mean Corpuscular Volume 80.4 fL (80.0-98.0); Mean Platelet Volume 11.5 fL (9.4-12.3); Monocytes Absolute Auto 0.8 X10*3/uL (0.1-1.2); Monocytes Percent Auto 11.1 % (2-11); Neutrophils Absolute Auto 3.9 x10*3/uL (2.0-8.3); Neutrophils Percent Auto 54.4 % (45-73); Platelet Count 233 X10*3/uL (160-400); Red Blood Count 4.39 X10*6/uL (4.20-5.50); Red Cell Distribution Width 15.6 % (11.0-16.0); White Blood Count 7.2 X10*3/uL (4.8-10.8)
[2021-09-08 06:12] LABS: COVID-19 Test Negative (Negative)
[2021-09-08 06:17] LABS: Alanine Aminotransferase 17 U/L (0-31); Albumin Level 3.7 g/dL (3.5-5.0); Alkaline Phosphatase 85 U/L (39-117); Anion Gap 12 (12-20); Aspartate Amino Transferase 18 U/L (5-31); Bilirubin Total < 0.2 mg/dL (0.0-1.0); Blood Urea Nitrogen 15 mg/dL (9-16); Calcium 9.4 mg/dL (8.4-10.2); Carbon Dioxide 18 mmol/L (22-29); Chloride 113 mmol/L (96-108); Creatinine Clr Calc Pharmacy 84.2; Estimated Glomerular Filt Rate > 60; Glucose Random 102 mg/dL (60-115); Lipase 35 U/L (8-78); Potassium 3.8 mmol/L (3.3-5.1); Sodium 139 mmol/L (135-145); Total Protein 7.4 g/dL (6.5-8.0)
--- NOTE | 2021-09-08 08:42 | ED_ITS ---
HPI - Abdominal Pain General Chief Complaint: Abdominal Pain Stated Complaint: ABDOMINAL PAIN Time Seen by Provider: 09/08/21 08:17 Source: patient Mode of arrival: EMS Limitations: language barrier History of Present Illness HPI narrative: 51-year-old female with past medical history of Crohn's disease, RA, GERD, sleep apnea, anxiety and depression presents for abdominal pain. The pain started yesterday in the morning. The pain is in her left abdomen and is severe. It is a 10/10, and radiates up into her left chest. It is intermittent. is nauseous with no vomiting. She had diarrhea multiple times yesterday. Patient has a past surgical history of colon resection and hernia repair. In addition, she had a pulmonary embolism in 2020. MD elicited complaint: abdominal pain Pertinent past history: other (crohn's) Onset (ago): day(s) (1) Pain Consistency: intermittent Location: LUQ and LLQ Severity: severe Quality: cramping Radiation: chest Migration to: no migration Exacerbating factors: nothing Relieving factors: nothing Associated symptoms: nausea and diarrhea Related Data Home Medications Medication Instructions Recorded Confirmed clonazepam 1 mg tablet 1 tab PO BEDTIME PRN 03/22/21 09/08/21 docusate sodium 100 mg capsule 1 cap PO BID PRN 03/22/21 09/08/21 ergocalciferol (vitamin D2) 1,250 1 cap PO WE 03/22/21 09/08/21 mcg (50,000 unit) capsule montelukast 10 mg tablet 1 tab PO BEDTIME 03/22/21 09/08/21 multivitamin 1 tab PO QAM 03/22/21 09/08/21 topiramate 100 mg tablet 1 tab PO BID 03/22/21 09/08/21 vitamin B complex-folic acid 0.4 1 tab PO QAM 03/22/21 09/08/21 mg tablet (B Complex 1 (with folic acid)) albuterol sulfate 1 amp INHALATION Q6H PRN 06/13/21 09/08/21 albuterol sulfate 90 mcg/actuation 2 puff PO QID PRN 06/13/21 09/08/21 aerosol inhaler (ProAir HFA) apixaban 5 mg tablet (Eliquis) 5 mg PO BID 06/13/21 09/08/21 esomeprazole magnesium 20 mg 1 cap PO QAM PRN 06/13/21 09/08/21 capsule,delayed release buspirone 5 mg tablet 1 tab PO DAILY 06/25/21 09/08/21 calcium carbonate 600 mg-vitamin 1 tab PO BID 06/25/21 09/08/21 D3 10 mcg (400 unit) tablet hydroxyzine HCl 25 mg tablet 1 - 2 tab PO TID PRN 06/25/21 09/08/21 lidocaine 4 % topical patch 1 patch TOPICAL DAILY PRN 06/25/21 09/08/21 budesonide-formoterol HFA 160 2 puff PO DAILY 09/08/21 09/08/21 mcg-4.5 mcg/actuation aerosol inhaler (Symbicort) Previous Rx's Medication Instructions Recorded paroxetine HCl 20 mg tablet 20 mg PO DAILY #30 tab 04/04/21 risperidone 1 mg tablet 1 mg PO BID #60 tab 04/04/21 acetaminophen 325 mg tablet 325 mg PO QID PRN #14 tab 07/18/21 (Tylenol) ustekinumab 90 mg/mL subcutaneous 90 mg SUBCUT Q4W 28 Days #1 ml 08/17/21 syringe (Stelara) Allergies Allergy/AdvReac Type Severity Reaction Status Date / Time aspirin [ASA] Allergy Intermediate RASH Verified 09/08/21 05:45 azathioprine [From IMURAN] Allergy Intermediate PANCREATIC Verified 09/08/21 05:45 INFLAMMATION ibuprofen [IBUPROFEN] Allergy Intermediate TOLD NOT Verified 09/08/21 05:45 TO TAKE levofloxacin [From LEVAQUIN] Allergy Mild YEAST Verified 09/08/21 05:45 INFECTIONS Review of Systems Constitutional: Denies body ache(s), Denies chills, Denies fatigue, Denies fever(s), Denies headache(s), Denies malaise and Denies weakness Eyes: Denies diplopia Denies dizziness and Denies headache(s) Cardiovascular: Reports chest pain, Denies syncope, Denies leg edema, Denies lightheadedness, Denies Loss of Consciousness, Denies palpitations and Denies dyspnea Respiratory: Denies chest congestion, Denies cough and Denies dyspnea Gastrointestinal: Reports abdominal pain, Denies hematochezia, Denies constipation, Reports diarrhea, Reports nausea and Denies vomiting Genitourinary: Reports no additional female genitourinary complaints Musculoskeletal: Reports no additional musculoskeletal complaints Skin/Breast: Denies rash Denies confusion, Denies dizziness, Denies syncope, Denies headache(s) and Denies weakness Psychiatric: Denies confusion Endocrine: Denies fatigue and Denies palpitations Physical Exam Vital Signs: Vital Signs: Last Vital Signs Temp 98.2 F 09/08/21 15:30 Pulse 60 09/08/21 15:30 Resp 16 09/08/21 15:30 BP 128/83 09/08/21 15:30 Pulse Ox 99 09/08/21 15:30 BMI result Body Mass Index 35.0 Const: General: No confusion Nutritional Appearance: obese Orie ntation/consciousness: patient oriented x3 and No confusion Limitations: no limitations HENMT: Head: Yes normal to inspection, Yes normocephalic and Yes atraumatic Ears: hearing grossly normal bilaterally, external ears normal, TM's normal bilaterally and EAC's normal General nose exam: Normal external nose present Face and sinus: Yes normal facial exam and Yes sinuses nontender Mouth: Normal oral and palatal mucosa present Throat: Yes posterior oropharynx normal Eyes: Conjunctivae: conjunctivae normal Pupils: Equal, round and reactive pupils present EOM: EOMs intact bilaterally Neck: Neck: Yes full ROM, Yes no lymphadenopathy and Yes supple Resp: Effort & Inspection: normal respiratory effort and able to speak in complete sentences Auscultation: clear to auscultation bilaterally, no crackles, no rales, no rhonchi and no wheezes Cardio: Rate: regular rate Rhythm: regular rhythm Heart sounds: S1 normal heart sound present and S2 normal heart sound present GI: Inspection: Yes obesity Palpation (GI): Soft to palpation, Tenderness to palpation present (GI) in the LLQ and in the LUQ, Guarding due to palpation present (GI) in the LLQ and in the LUQ and not rigid Percussion: Yes normal to percussion Auscultation: normal bowel sounds Skin: General skin exam: no rashes or lesions noted Neuro: General: patient oriented x3 and No confusion Cranial nerves: Yes Equal, round and reactive pupils present Extrem: General: Yes normal to inspection and Yes full ROM Psych: Appearance: grossly normal Affect: normal affect Attitude: cooperative Thought process: Normal thought process present Course Course Course Narrative: 51-year-old female with a history of Crohn's disease presents for sudden severe onset of left-sided abdominal pain radiating into her chest and diarrhea that started yesterday. On exam, patient has stable vitals, is afebrile, is tender in her left lower and left upper abdomen with guarding. Because patient is also endorsing chest pain, will get EKG, troponin, D-dimer, labs, chest x-ray, CT abdomen, urine Reevaluation(s) Reevaluation #1: Chemistry and CBC and lipase all within normal limits. Chest x-ray is normal, EKG shows no acute ischemia. Patient given Zofran, morphine, Dilaudid, fluids. Reevaluation #2: ddimer negative, troponin negative CT/CT abdomen pelvis w con IMPRESSION: Narrowing of the segment of the proximal sigmoid colon with wall enhancement and thickening is noted which is a chronic finding as seen on multiple previous CT scans; however, possibility of mild increased wall thickening and enhancement in the region cannot be completely excluded. Given the dilatation of the colon proximal to this level on current examination, possibility of at least partial obstruction related to the proximal sigmoid colon stricture is suspected. The findings are most probably related to patient's known inflammatory bowel disease; however, again possibility of neoplastic process here cannot be completely excluded. Sebas texted with Dr Curiel, general surgery, who stated that he reviewed the scan, and She has a chronic stricture and recently underwent a balloon dilation by Dr. Palafox from GI. Her plan was to repeat the dilation in 3-4 weeks. This is Crohns related. She should be admitted to medicine if in bad pain with GI consult. Consulted Dr Chaparro, GI, who would like ng tube and fluids and bowel rest Dr Kim will admit to medical service Dr Chaparro evaluated patient, and states pt does not need NG tube; she is passing gas, and had a BM 2 hours ago MDM - Abdominal Pain Lab Data Result diagrams: 09/08/21 05:47 09/08/21 05:47 Labs: Lab Results 09/08/21 09/08/21 09/08/21 Range/Units 05:47 05:47 05:47 WBC 7.2 (4.8-10.8) X10*3/uL RBC 4.39 (4.20-5.50) X10*6/uL Hgb 11.2 L (12.0-16.0) g/dl Hct 35.3 L (37.0-47.0) % MCV 80.4 (80.0-98.0) fL MCH 25.5 L (27.0-33.0) pg MCHC 31.7 (31.0-35.0) g/dl RDW 15.6 (11.0-16.0) % Plt Count 233 (160-400) X10*3/uL MPV 11.5 (9.4-12.3) fL Immature Gran % (Auto) 0.1 (0.0-0.4) % Neut % (Auto) 54.4 (45-73) % Lymph % (Auto) 31.0 (20-40) % [place] % (Auto) 11.1 H (2-11) % Eos % (Auto) 2.8 (0-4) % Baso % (Auto) 0.6 (0-2) % Lymph # (Auto) 2.2 (1.2-4.9) X10*3/uL [place] # (Auto) 0.8 (0.1-1.2) X10*3/uL Eos # (Auto) 0.2 (0.0-0.4) X10*3/uL Baso # (Auto) 0.0 (0.0-0.2) X10*3/uL Abs Immat Gran (auto) 0.01 (0.00-0.03) X10*3/uL Absolute Neuts (auto) 3.9 (2.0-8.3) x10*3/uL Absolute Nucleated RBC 0.000 (0.0-0.012) X10*3/uL Nucleated RBC % (auto) 0.0 (0.0-0.2) /100WBC ESR (0-20) MM/HR D-Dimer High Sensitivty NG/ML Sodium 139 (135-145) mmol/L Potassium 3.8 (3.3-5.1) mmol/L Chloride 113 H (96-108) mmol/L Carbon Dioxide 18 L (22-29) mmol/L Anion Gap 12 (12-20) BUN 15 (9-16) mg/dL Creatinine 0.84 (0.5-1.4) mg/dL Estim Creat Clear Calc 84.2 Estimated GFR > 60 Random Glucose 102 (60-115) mg/dL Calcium 9.4 (8.4-10.2) mg/dL Total Bilirubin < 0.2 (0.0-1.0) mg/dL AST 18 (5-31) U/L ALT 17 (0-31) U/L Alkaline Phosphatase 85 (39-117) U/L Lactate Dehydrogenase 198 (122-220) U/L Troponin I High Sens (<3.5-17.0) ng/L C-Reactive Protein 0.84 H (< or = 0.50) mg/dL Total Protein 7.4 (6.5-8.0) g/dL Albumin 3.7 (3.5-5.0) g/dL Lipase 35 (8-78) U/L COVID-19 (SHAAN) Negative (Negative) COVID-19 Clin Com See Note 09/08/21 09/08/21 09/08/21 Range/Units 05:47 11:03 11:03 WBC (4.8-10.8) X10*3/uL RBC (4.20-5.50) X10*6/uL Hgb (12.0-16.0) g/dl Hct (37.0-47.0) % MCV (80.0-98.0) fL MCH (27.0-33.0) pg MCHC (31.0-35.0) g/dl RDW (11.0-16.0) % Plt Count (160-400) X10*3/uL MPV (9.4-12.3) fL Immature Gran % (Auto) (0.0-0.4) % Neut % (Auto) (45-73) % Lymph % (Auto) (20-40) % [place] % (Auto) (2-11) % Eos % (Auto) (0-4) % Baso % (Auto) (0-2) % Lymph # (Auto) (1.2-4.9) X10*3/uL [place] # (Auto) (0.1-1.2) X10*3/uL Eos # (Auto) (0.0-0.4) X10*3/uL Baso # (Auto) (0.0-0.2) X10*3/uL Abs Immat Gran (auto) (0.00-0.03) X10*3/uL Absolute Neuts (auto) (2.0-8.3) x10*3/uL Absolute Nucleated RBC (0.0-0.012) X10*3/uL Nucleated RBC % (auto) (0.0-0.2) /100WBC ESR 23 H (0-20) MM/HR D-Dimer High Sensitivty 163 NG/ML Sodium (135-145) mmol/L Potassium (3.3-5.1) mmol/L Chloride (96-108) mmol/L Carbon Dioxide (22-29) mmol/L Anion Gap (12-20) BUN (9-16) mg/dL Creatinine (0.5-1.4) mg/dL Estim Creat Clear Calc Estimated GFR Random Glucose (60-115) mg/dL Calcium (8.4-10.2) mg/dL Total Bilirubin (0.0-1.0) mg/dL AST (5-31) U/L ALT (0-31) U/L Alkaline Phosphatase (39-117) U/L Lactate Dehydrogenase (122-220) U/L Troponin I High Sens < 3.5 (<3.5-17.0) ng/L C-Reactive Protein (< or = 0.50) mg/dL Total Protein (6.5-8.0) g/dL Albumin (3.5-5.0) g/dL Lipase (8-78) U/L COVID-19 (SHAAN) (Negative) COVID-19 Clin Com ECG Data Interpretation: Sinus bradycardia at 59. MT interval 160, QRS 86. QTC 429. Normal axis. Flipped T-wave in lead 3. No ST elevation or depression EKG March shows T-wave flattening in lead 3 Discharge Plan Discharge Clinical Impression: SBO (small bowel obstruction) Patient Disposition: Admitted As Inpatient [facility] Past Medical History Medical History (Updated 09/08/21 @ 15:19 by Marcellus Cruz MD) Anxiety Asthma Cancer Crohn's colitis Crohn's disease Depression GERD (gastroesophageal reflux disease) Hemorrhagic cyst of ovary HTN (hypertension) Hyperlipidemia Iron deficiency anemia Kidney stones Migraine Normocytic anemia PTSD (post-traumatic stress disorder) Pulmonary embolism Recurrent major depression-severe Rheumatoid arthritis Sleep apnea Surgical History History of colon resection Hx of colonoscopy (~10/2018) Hx of cystoscopy Hx of cystoscopy Hx of dilation and curettage Hx of endoscopy Social History Social History Household Members: None Housing: Apartment Do you presently have visiting nurse or other home services: No Alcohol intake: never Patient Tobacco Use Status: Former Tobacco user Quit Date: 2001 Tobacco use type: Cigarette Years Smoked: 10 Second Hand Smoke Exposure: No Use of substances other than those prescribed or required for medical reasons: No Substance Use Type: Marijuana Advance Directives: No Advance Directives Date on File: 07/06/14 service: No Current occupational status: disabled Sexual orientation: Straight/Heterosexual
--- NOTE | 2021-09-08 08:45 | ECG_ITS ---
Test Reason : abd pain Blood Pressure : / mmHG Vent. Rate : 059 BPM Atrial Rate : 059 BPM P-R Int : 160 ms QRS Dur : 086 ms QT Int : 434 ms P-R-T Axes : 045 009 012 degrees QTc Int : 429 ms Sinus bradycardia Otherwise normal ECG When compared with ECG of 13-APR-2021 20:30, No significant change was found Referred By: Mayuri Champagne Electronically Signed By:ASHLEY BENNETT
[2021-09-08] MEDS: ondansetron HCL 4 MG/2 ML VIAL IVPUSH (09:09)
[2021-09-08] MEDS: Morphine Sulfate 4 MG/ML CARTRIDGE IVPUSH (09:09)
[2021-09-08] MEDS: 0.9 % Sodium Chloride 1,000 ML 999 ML IV ×2 (09:09→15:06)
[2021-09-08] MEDS: iohexoL 350 MG/ML 100 ML INFUS..BTL IV (10:25)
[2021-09-08] MEDS: HYDROmorphone HCl 1 MG/ML SYRINGE IVPUSH (10:38)
[2021-09-08 11:16] LABS: D Dimer High Sensitivity 163 NG/ML
[2021-09-08 11:32] LABS: Troponin-I High Sensitivity < 3.5 ng/L (<3.5-17.0)
--- NOTE | 2021-09-08 15:10 | PM.IMHP ---
History of Present Illness Date of Service: 09/08/21 Chief Complaint: Abdominal pain, nausea a 50 years old lady with PMH of Crohn's disease, PTSD, pulmonary embolism on Eliquis, RA among others who presented to the hospital with worsening abdominal pain over the last 2 weeks. She reported that she started to have on and of pain over 2 weeks ago that has becoming more progressive and constant with time until today she could not bear it anymore and she decided to come to the hospital. The pain is mid abdominal and radiating to the lower areas associated with mild nausea but no vomiting, no change in bowel habit, no fever or chills. The patient was able to tolerate diet partially. In the emergency a CT scan of the abdomen was concerning for possible inflammatory changes versus possible partial obstruction. Case discussed with surgery and Gastroenterology admitted for further evaluation. Review of Systems Review of Systems: No fever, chills But reported generalized weakness No chest pain, palpitation No shortness of breath or coughing Generalized abdominal pain, Associated with mild nausea but no vomiting No urinary symptoms No any rash or wounds PMFSH Medical History Anxiety Asthma Cancer Crohn's colitis Crohn's disease Depression GERD (gastroesophageal reflux disease) Hemorrhagic cyst of ovary HTN (hypertension) Hyperlipidemia Iron deficiency anemia Kidney stones Migraine Normocytic anemia PTSD (post-traumatic stress disorder) Pulmonary embolism Recurrent major depression-severe Rheumatoid arthritis Sleep apnea Surgical History History of colon resection Hx of colonoscopy (~10/2018) Hx of cystoscopy Hx of cystoscopy Hx of dilation and curettage Hx of endoscopy Social History Household Members: None Housing: Apartment Do you presently have visiting nurse or other home services: No Alcohol intake: never Patient Tobacco Use Status: Never used Tobacco Tobacco use type: Cigarette Years Smoked: 10 Second Hand Smoke Exposure: No Substance Use Type: Marijuana Advance Directives Date on File: 07/06/14 service: No Current occupational status: unemployed and disabled Sexual orientation: Straight/Heterosexual Meds Allergies Allergy/AdvReac Type Severity Reaction Status Date / Time aspirin [ASA] Allergy Intermediate RASH Verified 09/13/21 13:58 azathioprine [From IMURAN] Allergy Intermediate PANCREATIC Verified 09/13/21 13:58 INFLAMMATION ibuprofen [IBUPROFEN] Allergy Intermediate TOLD NOT Verified 09/13/21 13:58 TO TAKE levofloxacin [From LEVAQUIN] Allergy Mild YEAST Verified 09/13/21 13:58 INFECTIONS Active Medications: Current Medications Sodium Chloride (Ns) 1,000 mls @ 999 mls/hr IV .Q1H1M JUANCHO Stop: 09/08/21 15:45 Last Admin: 09/08/21 15:06 Dose: 999 mls/hr Documented by: Pharmacy Consult (Consult Rx Perform Med Rec) 1 each MISCELLANE ONCE PRN PRN Reason: Consult order Home Medications Medication Instructions Recorded Confirmed Last Taken Type clonazepam 1 mg tablet 1 tab PO BEDTIME PRN 03/22/21 09/08/21 09/07/21 History docusate sodium 100 mg capsule 1 cap PO BID PRN 03/22/21 09/08/21 09/07/21 History ergocalciferol (vitamin D2) 1,250 1 cap PO WE 03/22/21 09/08/21 09/07/21 History mcg (50,000 unit) capsule montelukast 10 mg tablet 1 tab PO BEDTIME 03/22/21 09/08/21 09/07/21 History multivitamin 1 tab PO QAM 03/22/21 09/08/21 09/07/21 History topiramate 100 mg tablet 1 tab PO BID 03/22/21 09/08/21 09/07/21 History vitamin B complex-folic acid 0.4 1 tab PO QAM 03/22/21 09/08/21 09/07/21 History mg tablet (B Complex 1 (with folic acid)) albuterol sulfate 1 amp INHALATION Q6H PRN 06/13/21 09/08/21 09/07/21 History albuterol sulfate 90 mcg/actuation 2 puff PO QID PRN 06/13/21 09/08/21 09/07/21 History aerosol inhaler (ProAir HFA) apixaban 5 mg tablet (Eliquis) 5 mg PO BID 06/13/21 09/08/21 09/07/21 History esomeprazole magnesium 20 mg 1 cap PO QAM PRN 06/13/21 09/08/21 09/07/21 History capsule,delayed release buspirone 5 mg tablet 1 tab PO DAILY 06/25/21 09/08/21 09/07/21 History calcium carbonate 600 mg-vitamin 1 tab PO BID 06/25/21 09/08/21 09/07/21 History D3 10 mcg (400 unit) tablet hydroxyzine HCl 25 mg tablet 1 - 2 tab PO TID PRN 06/25/21 09/08/21 09/07/21 History lidocaine 4 % topical patch 1 patch TOPICAL DAILY PRN 06/25/21 09/08/21 09/07/21 History budesonide-formoterol HFA 160 2 puff PO DAILY 09/08/21 09/08/21 09/07/21 History mcg-4.5 mcg/actuation aerosol inhaler (Symbicort) Physical Exam Vital Signs and Narrative: Vital Signs: Last Vital Signs Temp 98.4 F 09/08/21 08:54 Pulse 64 09/08/21 10:37 Resp 14 09/08/21 10:37 BP 131/80 09/08/21 10:37 Pulse Ox 98 09/08/21 08:54 BMI result Body Mass Index 35.0 Const: Other: Constitutional : Alert, oriented, not in distress Neck : Normal inspection, Supple Cardiovascular : RRR, S1 S2, no lower extremity edema Respiratory : Good bilateral air entry, no crackles, wheezes or rhonchi Gastrointestinal: soft, lax, Decrease bowel sounds, Guarding, generalized abdominal tenderness mainly in the lower areas, no surgical signs appreciated Skin : Warm, Dry Neurological : Alert & oriented x3, No focal deficit Results Labs CBC and Chem 7: 09/09/21 06:11 09/09/21 06:11 Labs: Laboratory Results - last 24 hr 09/08/21 09/08/21 09/08/21 05:47 05:47 05:47 MCV 80.4 MCH 25.5 L MCHC 31.7 RDW 15.6 Plt Count 233 MPV 11.5 Immature Gran % (Auto) 0.1 Neut % (Auto) 54.4 Lymph % (Auto) 31.0 [place] % (Auto) 11.1 H Eos % (Auto) 2.8 Baso % (Auto) 0.6 Lymph # (Auto) 2.2 [place] # (Auto) 0.8 Eos # (Auto) 0.2 Baso # (Auto) 0.0 Abs Immat Gran (auto) 0.01 Absolute Neuts (auto) 3.9 Absolute Nucleated RBC 0.000 Nucleated RBC % (auto) 0.0 D-Dimer High Sensitivty Anion Gap 12 Estim Creat Clear Calc 84.2 Estimated GFR > 60 Random Glucose 102 Calcium 9.4 Total Bilirubin < 0.2 AST 18 ALT 17 Alkaline Phosphatase 85 Troponin I High Sens Total Protein 7.4 Albumin 3.7 Lipase 35 COVID-19 (SHAAN) Negative COVID-19 Clin Com See Note 09/08/21 09/08/21 11:03 11:03 MCV MCH MCHC RDW Plt Count MPV Immature Gran % (Auto) Neut % (Auto) Lymph % (Auto) [place] % (Auto) Eos % (Auto) Baso % (Auto) Lymph # (Auto) [place] # (Auto) Eos # (Auto) Baso # (Auto) Abs Immat Gran (auto) Absolute Neuts (auto) Absolute Nucleated RBC Nucleated RBC % (auto) D-Dimer High Sensitivty 163 Anion Gap Estim Creat Clear Calc Estimated GFR Random Glucose Calcium Total Bilirubin AST ALT Alkaline Phosphatase Troponin I High Sens < 3.5 Total Protein Albumin Lipase COVID-19 (SHAAN) COVID-19 Clin Com Imaging Radiologist's Impressions: Impressions Chest X-Ray 09/08/21 09:20 IMPRESSION: No acute cardiopulmonary process. Abdomen/Pelvis CT 09/08/21 10:23 IMPRESSION: Narrowing of the segment of the proximal sigmoid colon with wall enhancement and thickening is noted which is a chronic finding as seen on multiple previous CT scans; however, possibility of mild increased wall thickening and enhancement in the region cannot be completely excluded. Given the dilatation of the colon proximal to this level on current examination, possibility of at least partial obstruction related to the proximal sigmoid colon stricture is suspected. The findings are most probably related to patient's known inflammatory bowel disease; however, again possibility of neoplastic process here cannot be completely excluded. Fleischner guidelines were followed. Assessment and Plan (1) SBO (small bowel obstruction): Status: Acute (2) Crohn's colitis: Status: Acute a 50 years old lady with PMH of Crohn's disease, PTSD, pulmonary embolism on Eliquis, RA among others who presented to the hospital with worsening abdominal pain over the last 2 weeks. Partial intestinal obstruction Secondary to Crohn's colitis CT scan as reported Keep NPO, advanced diet as tolerated Start gentle hydration Zofran for nausea Start steroid therapy Get GI evaluation No role for antibiotics at this point pulmonary embolism Diagnosed in March 2021 continue p.o. Eliquis PTSD and Recurrent major depression: continue home medications Rheumatoid arthritis: continue home medications Hypertension: continue medication Hyperlipidemia: continue medications DVT PPX Eliquis Quality Stroke Does the patient have a stroke diagnosis?: No VTE Prior VTE?: No VTE Risk Level:: Medical - moderate - high VTE Device Contraindication: Treatment Not Indicated VTE Drug Contraindication: N/A - Med Ordered
[2021-09-08] MEDS: methylPREDNISolone Sod Succ 40 MG/ML VIAL IVPUSH ×2 (15:29→21:17)
[2021-09-08] MEDS: Dextrose 5 % and 0.9 % NaCl 1,000 ML 100 ML IVCONT (15:29)
[2021-09-08] MEDS: Morphine Sulfate 4 MG/ML CARTRIDGE 2 MG IVPUSH ×2 (15:29→21:24)
--- NOTE | 2021-09-08 15:36 | PHA.MEDREC ---
Pharmacy Consult ? Medication Reconciliation Pharmacy has completed the medication reconciliation.
[2021-09-08 15:40] LABS: C Reactive Protein 0.84 mg/dL (< or = 0.50); Lactate Dehydrogenase 198 U/L (122-220)
--- NOTE | 2021-09-08 15:41 | P.CONGS_ITS ---
History of Present Illness Consult details Consult date: 09/08/21 Requesting physician: Mayuri Champagne Narrative: 51-year-old female patient with history of Crohn's disease and a previous colon resection performed in 2010 at [facility] now found to have a stricture at the sigmoid colon. She reports abdominal pain mainly in the right upper quadrant and left upper quadrant. She was previously evaluated by Gastroenterology (Dr. Cook) underwent a balloon dilation of the area of stenosis. Per operative report on 06/26/2021:Sigmoid Colon: Focal tight stricture from 15 to 18 cms with ulcerations. Stricture was dilated with a 10 and 11 mm CRE balloon x 60 sec at each level. It was not possible to advanced the colonoscope through the stricture. The colonoscope was removed and a mid-size upper endoscope was advanced with mild resistance through the stricture. Balloon dilation was performed with a 10 and 11 mm CRE balloon x 60 seconds at each level. Biopsies were obtained from the stricture. Plans were for Flexible sigmoidoscopy with repeat dilation of sigmoid colon stricture in 3-4 weeks. Pathology revealed: Diagnosis A.? Colon, sigmoid at 35 cm, biopsy:? Colonic mucosa with prominent lymphoid aggregate; otherwise within normal limits. B.? Colon, sigmoid stricture, biopsy:? Severely active colitis with ulceration, fragments of fibrinopurulent material and granulation tissue. COMMENT:? No dysplasia or granulomata are seen. She reports occasional abdominal pain which became more severe and more constant over the last several days therefore she presented to the emergency department. CT of the abdomen and pelvis was obtained which revealed an area of inflammation and narrowing of the rectosigmoid junction similar to previous evaluations perhaps slightly more inflamed. There is dilation of the proximal colon as a results. More recently she developed a pulmonary embolism in 2020 and is now on Eliquis. Review of Systems Review of Systems: Yes all other systems are reviewed and are negative Respiratory: Respiratory: Reports as per HPI Gastrointestinal: Gastrointestinal: Reports as per HPI, Reports abdominal pain and Reports diarrhea Psychiatric: Psychiatric: Reports depression PMFSH Past Medical History Medical History Anxiety Asthma Cancer Crohn's colitis Crohn's disease Depression GERD (gastroesophageal reflux disease) Hemorrhagic cyst of ovary HTN (hypertension) Hyperlipidemia Iron deficiency anemia Kidney stones Migraine Normocytic anemia PTSD (post-traumatic stress disorder) Pulmonary embolism Recurrent major depression-severe Rheumatoid arthritis Sleep apnea Surgical History Surgical History History of colon resection Hx of colonoscopy (~10/2018) Hx of cystoscopy Hx of cystoscopy Hx of dilation and curettage Hx of endoscopy Social History Social History Household Members: None Housing: Apartment Do you presently have visiting nurse or other home services: No Alcohol intake: never Patient Tobacco Use Status: Never used Tobacco Tobacco use type: Cigarette Years Smoked: 10 Second Hand Smoke Exposure: No Use of substances other than those prescribed or required for medical reasons: Yes Substance Use Type: Marijuana Substance Use Frequency: Weekly Currently Displaying Signs/Symptoms of Drug Intoxication Withdrawal: No Have you been hit, kicked, punched, or otherwise hurt by someone within the past year? If so, by whom?: No Do you feel safe in your current relationship?: No Is there a partner from a previous relationship who is making you feel unsafe now?: No Are you made to feel afraid or neglected: No Advance Directives: No Advance Directives Date on File: 07/06/14 Do you have thoughts of harming others: None Do you have a plan to hurt others: No Plan Recently lost weight without trying: Yes Eating poorly because of decreased appetite: No Nutrition Risks: Acute nausea or vomiting x1 week service: No Current occupational status: disabled Sexual orientation: Straight/Heterosexual Meds Allergies Allergy/AdvReac Type Severity Reaction Status Date / Time aspirin [ASA] Allergy Intermediate RASH Verified 09/08/21 05:45 azathioprine [From IMURAN] Allergy Intermediate PANCREATIC Verified 09/08/21 05:45 INFLAMMATION ibuprofen [IBUPROFEN] Allergy Intermediate TOLD NOT Verified 09/08/21 05:45 TO TAKE levofloxacin [From LEVAQUIN] Allergy Mild YEAST Verified 09/08/21 05:45 INFECTIONS Active Medications: Current Medications Acetaminophen (Acetaminophen 325 Mg Tablet) 650 mg PO Q6H PRN PRN Reason: Pain, Mild (Pain Scale 1-3) Albuterol Sulfate (Albuterol Sulfate (0.083%) 2.5 Mg/3 Ml Vial.Neb) 2.5 mg INHALE Q6H PRN PRN Reason: Wheezing Apixaban (Apixaban 5 Mg Tablet) 5 mg PO BID JUANCHO Last Admin: 09/09/21 10:05 Dose: 5 mg Documented by: Buspirone HCl (Buspirone Hcl 5 Mg Tablet) 5 mg PO DAILY [facility] Last Admin: 09/09/21 10:04 Dose: 5 mg Documented by: Clonazepam (Clonazepam 1 Mg Tablet) 1 mg PO BEDTIME PRN PRN Reason: Sleep Last Admin: 09/09/21 01:53 Dose: 1 mg Documented by: Hydroxyzine HCl (Hydroxyzine Hcl 25 Mg Tablet) 25 mg PO TID PRN PRN Reason: Anxiety Dextrose/Sodium Chloride (D5ns) 1,000 mls @ 100 mls/hr IVCONT .Q10H [facility] Last Admin: 09/09/21 00:25 Dose: 100 mls/hr Documented by: Lidocaine (Lidocaine 4 % Patch Adh..Patch) 1 patch TRANSDERMA DAILY PRN; Protocol PRN Reason: Breakthrough Pain Methylprednisolone Sodium Succinate (Methylprednisolone Sod Succ 40 Mg/Ml Vial) 40 mg IVPUSH BID [facility] Last Admin: 09/09/21 10:06 Dose: 40 mg Documented by: Morphine Sulfate (Morphine Sulfate 4 Mg/Ml Cartridge) 2 mg IVPUSH Q4H PRN; Protocol PRN Reason: Pain, Severe (Pain Scale 7-10) Last Admin: 09/09/21 06:44 Dose: 2 mg Documented by: Multivitamins/Vitamin C (Multivitamin Tablet) 1 tab PO DAILY [facility] Last Admin: 09/09/21 10:05 Dose: 1 tab Documented by: Omeprazole (Omeprazole 40 Mg Capsule.Dr) 40 mg PO DAILY@0630 [facility] Last Admin: 09/09/21 05:28 Dose: 40 mg Documented by: Ondansetron HCl (Ondansetron Hcl 4 Mg/2 Ml Vial) 4 mg IVPUSH Q8H PRN PRN Reason: Nausea and Vomiting Last Admin: 09/09/21 06:44 Dose: 4 mg Documented by: Paroxetine HCl (Paroxetine Hcl 20 Mg Tablet) 20 mg PO DAILY [facility] Last Admin: 09/09/21 10:04 Dose: 20 mg Documented by: Pharmacy Consult (Consult Rx Perform Med Rec) 1 each MISCELLANE ONCE PRN PRN Reason: Consult order Risperidone (Risperidone 1 Mg Tablet) 1 mg PO BID [facility] Last Admin: 09/09/21 10:05 Dose: 1 mg Documented by: Sodium Bicarbonate (Sodium Bicarbonate 650 Mg Tablet) 1,300 mg PO BID [facility] Last Admin: 09/09/21 10:24 Dose: 1,300 mg Documented by: Sodium Chloride (0.9 % Sodium Chloride Flush 3 Ml Syringe) 3 ml IVFLUSH QSHIFT [facility] Last Admin: 09/09/21 10:24 Dose: 3 ml Documented by: Topiramate (Topiramate 100 Mg Tablet) 100 mg PO BID [facility] Last Admin: 09/09/21 10:05 Dose: 100 mg Documented by: Home Medications Medication Instructions Recorded Confirmed Last Taken Type clonazepam 1 mg tablet 1 tab PO BEDTIME PRN 03/22/21 09/08/21 09/07/21 History docusate sodium 100 mg capsule 1 cap PO BID PRN 03/22/21 09/08/21 09/07/21 History ergocalciferol (vitamin D2) 1,250 1 cap PO WE 03/22/21 09/08/21 09/07/21 History mcg (50,000 unit) capsule montelukast 10 mg tablet 1 tab PO BEDTIME 03/22/21 09/08/21 09/07/21 History multivitamin 1 tab PO QAM 03/22/21 09/08/21 09/07/21 History topiramate 100 mg tablet 1 tab PO BID 03/22/21 09/08/21 09/07/21 History vitamin B complex-folic acid 0.4 1 tab PO QAM 03/22/21 09/08/21 09/07/21 History mg tablet (B Complex 1 (with folic acid)) albuterol sulfate 1 amp INHALATION Q6H PRN 06/13/21 09/08/21 09/07/21 History albuterol sulfate 90 mcg/actuation 2 puff PO QID PRN 06/13/21 09/08/21 09/07/21 History aerosol inhaler (ProAir HFA) apixaban 5 mg tablet (Eliquis) 5 mg PO BID 06/13/21 09/08/21 09/07/21 History esomeprazole magnesium 20 mg 1 cap PO QAM PRN 06/13/21 09/08/21 09/07/21 History capsule,delayed release buspirone 5 mg tablet 1 tab PO DAILY 06/25/21 09/08/21 09/07/21 History calcium carbonate 600 mg-vitamin 1 tab PO BID 06/25/21 09/08/21 09/07/21 History D3 10 mcg (400 unit) tablet hydroxyzine HCl 25 mg tablet 1 - 2 tab PO TID PRN 06/25/21 09/08/21 09/07/21 History lidocaine 4 % topical patch 1 patch TOPICAL DAILY PRN 06/25/21 09/08/21 09/07/21 History budesonide-formoterol HFA 160 2 puff PO DAILY 09/08/21 09/08/21 09/07/21 History mcg-4.5 mcg/actuation aerosol inhaler (Symbicort) Physical Exam Vital Signs: Vital Signs: Last Vital Signs Temp 97.6 F 09/09/21 07:47 Pulse 74 09/09/21 07:47 Resp 17 09/09/21 07:47 BP 114/63 09/09/21 07:47 Pulse Ox 99 09/09/21 07:47 BMI result Body Mass Index 36.4 Const: General: in distress Nutritional Appearance: well nourished Orientation/consciousness: patient oriented x3 Limitations: no limitations HENMT: Head: Yes normocephalic and Yes atraumatic Ears: hearing grossly normal bilaterally Resp: Effort & Inspection: normal respiratory effort, no cough and no respiratory distress GI: Palpation (GI): Soft to palpation, Tenderness to palpation present (GI) in the LLQ, in the LUQ and in the RUQ; Negative for with no rebound tenderness and Rovsing's sign negative, no guarding and not rigid Percussion: Yes normal to percussion Skin: General skin exam: no rashes or lesions noted Neuro: General: patient oriented x3 Extrem: General: No edema Psych: Mental Status: mental status grossly normal Results Labs Result diagrams: 09/09/21 06:11 09/09/21 06:11 Labs: Abnormal lab results 09/08/21 09/08/21 09/09/21 Range/Units 05:47 05:47 06:11 Hgb 11.0 L (12.0-16.0) g/dl Hct 35.0 L (37.0-47.0) % MCH 25.5 L (27.0-33.0) pg ESR 23 H (0-20) MM/HR Chloride (96-108) mmol/L Carbon Dioxide (22-29) mmol/L Random Glucose (60-115) mg/dL C-Reactive Protein 0.84 H (< or = 0.50) mg/dL 09/09/21 Range/Units 06:11 Hgb (12.0-16.0) g/dl Hct (37.0-47.0) % MCH (27.0-33.0) pg ESR (0-20) MM/HR Chloride 113 H (96-108) mmol/L Carbon Dioxide 19 L (22-29) mmol/L Random Glucose 147 H (60-115) mg/dL C-Reactive Protein (< or = 0.50) mg/dL Short CBC 09/09/21 Range/Units 06:11 WBC 8.5 (4.8-10.8) X10*3/uL Hgb 11.0 L (12.0-16.0) g/dl Hct 35.0 L (37.0-47.0) % Plt Count 239 (160-400) X10*3/uL BMP 09/09/21 06:11 Sodium 140 Potassium 4.3 Chloride 113 H Carbon Dioxide 19 L BUN 10 Creatinine 0.73 Calcium 8.9 All other labs normal. Imaging Abdomen CT scan report/results: image reviewed and other CT scan - chest: image reviewed Additional studies: CT abdomen and pelvis: Narrowing of the segment of the proximal sigmoid colon with wall enhancement and thickening is noted which is a chronic finding as seen on multiple previous CT scans; however, possibility of mild increased wall thickening and enhancement in the region cannot be completely excluded. Given the dilatation of the colon proximal to this level on current examination, possibility of at least partial obstruction related to the proximal sigmoid colon stricture is suspected. The findings are most probably related to patient's known inflammatory bowel disease; however, again possibility of neoplastic process here cannot be completely excluded. Assessment and Plan (1) Crohn's colitis: Status: Acute (2) Stricture of sigmoid colon: Status: Acute 51-year-old female patient with a known history of Crohn's colitis and pr evious partial colectomy 2010. Patient developed strictures at the sigmoid colon and has previously undergone balloon dilation by Dr. Cook. Findings and CT scan confirm a stricture at this location with proximal dilation of the colon with increased stool burden. There is no evidence of a small-bowel obstruction however. Previous biopsies were negative for granulomas or malignancy. Suggest gastroenterology consultation for possible repeat balloon dilation. Procedures Date of Service Date of Service: 09/08/21
[2021-09-08 16:00] LABS: Erythrocyte Sedimentation Rate 23 MM/HR (0-20)
--- NOTE | 2021-09-08 21:03 | PC.NURSE ---
This RN attempted report x 1
[2021-09-08] MEDS: Apixaban 5 MG TABLET PO (21:24)
[2021-09-08] MEDS: Topiramate 100 MG TABLET PO (21:24)
[2021-09-08] MEDS: risperiDONE 1 MG TABLET PO (21:24)
[2021-09-09] VITALS (7 sets, daily range): BP systolic 114–131; BP diastolic 59–78; PULSE 68–79; RESP 17–18; TEMP 36–37.2; O2SAT 93–99; BMI 36.4
[2021-09-09] MEDS: Dextrose 5 % and 0.9 % NaCl 1,000 ML 100 ML IVCONT ×2 (00:25→20:34)
[2021-09-09] MEDS: Morphine Sulfate 4 MG/ML CARTRIDGE 2 MG IVPUSH ×4 (01:52→20:25)
[2021-09-09] MEDS: clonazePAM 1 MG TABLET PO (01:53)
[2021-09-09] MEDS: Omeprazole 40 MG CAPSULE.DR PO (05:28)
[2021-09-09] MEDS: ondansetron HCL 4 MG/2 ML VIAL IVPUSH (06:44)
[2021-09-09 07:05] LABS: Mean Corpuscular HGB Conc 31.4 g/dl (31.0-35.0); Mean Corpuscular Hemoglobin 25.5 pg (27.0-33.0); Mean Corpuscular Volume 81.2 fL (80.0-98.0); Mean Platelet Volume 11.7 fL (9.4-12.3); Platelet Count 239 X10*3/uL (160-400); Red Blood Count 4.31 X10*6/uL (4.20-5.50); Red Cell Distribution Width 15.2 % (11.0-16.0); White Blood Count 8.5 X10*3/uL (4.8-10.8)
[2021-09-09 07:16] LABS: Anion Gap 12 (12-20); Blood Urea Nitrogen 10 mg/dL (9-16); Calcium 8.9 mg/dL (8.4-10.2); Carbon Dioxide 19 mmol/L (22-29); Chloride 113 mmol/L (96-108); Creatinine Clr Calc Pharmacy 98.9; Estimated Glomerular Filt Rate > 60; Glucose Random 147 mg/dL (60-115); Potassium 4.3 mmol/L (3.3-5.1); Sodium 140 mmol/L (135-145)
--- NOTE | 2021-09-09 08:05 | PM.GICN ---
History of Present Illness Data of Consult Service Date: 09/09/21 Requesting physician: Marcellus Blue Primary Care Provider: Leesa Wasserman MD [facility] Reason for consult: SBO 51 yr old f with hx of RA, GERD, asthma, sleep apnea, iron def anemia, PTE (on eliquis), anxiety and depression, Crohn's disease involving the left colon (and suspected jejunal involvement) \status post sigmoid colectomy with colostomy in 2010, reversal of colostomy in 2011 who I am seeing for assessment of abdominal pain She had 2 weeks of constant, worsening LLQ twisting pain which has been gradually worsening becoming 10/10 yesterday. Pain goes into mid abdomen with mild nausea but no vomiting. No relieving or exacerbating factors. She denies constipation and diarrhea and says she has been passing gas and stool. Denies rectal bleeding or melena. no fever or chills. CT imaging with partial obstruction and thickening of bowel on left with mesenteric stranding. She has been compliant wt stellara once a month but has not had methotrexate for 2 months as she says it was not refilled by her prescriber. She does have hx of left sided stricture dilated at colonoscopy 12/2019. Review of Systems Review of Systems: No fever, chills But reported generalized weakness No chest pain, palpitation No shortness of breath or coughing Generalized abdominal pain, Associated with mild nausea but no vomiting No urinary symptoms No any rash or wounds Constitutional: Constitutional: Denies body ache(s), Denies chills, Denies fatigue, Denies fever(s), Denies headache(s), Denies malaise and Denies weakness Eyes: Eyes: Denies diplopia ENT: Denies dizziness and Denies headache(s) Cardiovascular: Cardiovascular: Reports chest pain, Denies syncope, Denies leg edema, Denies lightheadedness, Denies Loss of Consciousness, Denies palpitations and Denies dyspnea Respiratory: Respiratory: Denies chest congestion, Denies cough and Denies dyspnea Gastrointestinal: Gastrointestinal: Reports abdominal pain, Denies hematochezia, Denies constipation, Reports diarrhea, Reports nausea and Denies vomiting Musculoskeletal: Musculoskeletal: Reports no additional musculoskeletal complaints Integumentary/Breasts: Skin/Breast: Denies rash Neurologic: Denies confusion, Denies dizziness, Denies syncope, Denies headache(s) and Denies weakness Psychiatric: Psychiatric: Denies confusion Endocrine: Endocrine: Denies fatigue and Denies palpitations PMFSH Past Medical History Medical History Anxiety Asthma Cancer Crohn's colitis Crohn's disease Depression GERD (gastroesophageal reflux disease) Hemorrhagic cyst of ovary HTN (hypertension) Hyperlipidemia Iron deficiency anemia Kidney stones Migraine Normocytic anemia PTSD (post-traumatic stress disorder) Pulmonary embolism Recurrent major depression-severe Rheumatoid arthritis Sleep apnea Surgical History Surgical History History of colon resection Hx of colonoscopy (~10/2018) Hx of cystoscopy Hx of cystoscopy Hx of dilation and curettage Hx of endoscopy Social History Social History Household Members: None Housing: Apartment Do you presently have visiting nurse or other home services: No Alcohol intake: never Patient Tobacco Use Status: Never used Tobacco Tobacco use type: Cigarette Years Smoked: 10 Second Hand Smoke Exposure: No Use of substances other than those prescribed or required for medical reasons: Yes Substance Use Type: Marijuana Substance Use Frequency: Weekly Currently Displaying Signs/Symptoms of Drug Intoxication Withdrawal: No Have you been hit, kicked, punched, or otherwise hurt by someone within the past year? If so, by whom?: No Do you feel safe in your current relationship?: No Is there a partner from a previous relationship who is making you feel unsafe now?: No Are you made to feel afraid or neglected: No Advance Directives: No Advance Directives Date on File: 07/06/14 Do you have thoughts of harming others: None Do you have a plan to hurt others: No Plan Recently lost weight without trying: Yes Eating poorly because of decreased appetite: No Nutrition Risks: Acute nausea or vomiting x1 week service: No Current occupational status: unemployed and disabled Sexual orientation: Straight/Heterosexual Meds Allergies Allergy/AdvReac Type Severity Reaction Status Date / Time aspirin [ASA] Allergy Intermediate RASH Verified 09/08/21 05:45 azathioprine [From IMURAN] Allergy Intermediate PANCREATIC Verified 09/08/21 05:45 INFLAMMATION ibuprofen [IBUPROFEN] Allergy Intermediate TOLD NOT Verified 09/08/21 05:45 TO TAKE levofloxacin [From LEVAQUIN] Allergy Mild YEAST Verified 09/08/21 05:45 INFECTIONS Active Medications: Current Medications Acetaminophen (Acetaminophen 325 Mg Tablet) 650 mg PO Q6H PRN PRN Reason: Pain, Mild (Pain Scale 1-3) Albuterol Sulfate (Albuterol Sulfate (0.083%) 2.5 Mg/3 Ml Vial.Neb) 2.5 mg INHALE Q6H PRN PRN Reason: Wheezing Apixaban (Apixaban 5 Mg Tablet) 5 mg PO BID [facility] Last Admin: 09/08/21 21:24 Dose: 5 mg Documented by: Buspirone HCl (Buspirone Hcl 5 Mg Tablet) 5 mg PO DAILY [facility] Clonazepam (Clonazepam 1 Mg Tablet) 1 mg PO BEDTIME PRN PRN Reason: Sleep Last Admin: 09/09/21 01:53 Dose: 1 mg Documented by: Hydroxyzine HCl (Hydroxyzine Hcl 25 Mg Tablet) 25 mg PO TID PRN PRN Reason: Anxiety Dextrose/Sodium Chloride (D5ns) 1,000 mls @ 100 mls/hr IVCONT .Q10H [facility] Last Admin: 09/09/21 00:25 Dose: 100 mls/hr Documented by: Lidocaine (Lidocaine 4 % Patch Adh..Patch) 1 patch TRANSDERMA DAILY PRN; Protocol PRN Reason: Breakthrough Pain Methylprednisolone Sodium Succinate (Methylprednisolone Sod Succ 40 Mg/Ml Vial) 40 mg IVPUSH BID [facility] Last Admin: 09/08/21 21:17 Dose: 40 mg Documented by: Morphine Sulfate (Morphine Sulfate 4 Mg/Ml Cartridge) 2 mg IVPUSH Q4H PRN; Protocol PRN Reason: Pain, Severe (Pain Scale 7-10) Last Admin: 09/09/21 06:44 Dose: 2 mg Documented by: Multivitamins/Vitamin C (Multivitamin Tablet) 1 tab PO DAILY [facility] Omeprazole (Omeprazole 40 Mg Capsule.) 40 mg PO DAILY@0630 [facility] Last Admin: 09/09/21 05:28 Dose: 40 mg Documented by: Ondansetron HCl (Ondansetron Hcl 4 Mg/2 Ml Vial) 4 mg IVPUSH Q8H PRN PRN Reason: Nausea and Vomiting Last Admin: 09/09/21 06:44 Dose: 4 mg Documented by: Paroxetine HCl (Paroxetine Hcl 20 Mg Tablet) 20 mg PO DAILY [facility] Pharmacy Consult (Consult Rx Perform Med Rec) 1 each MISCELLANE ONCE PRN PRN Reason: Consult order Risperidone (Risperidone 1 Mg Tablet) 1 mg PO BID [facility] Last Admin: 09/08/21 21:24 Dose: 1 mg Documented by: Sodium Bicarbonate (Sodium Bicarbonate 650 Mg Tablet) 1,300 mg PO BID [facility] Sodium Chloride (0.9 % Sodium Chloride Flush 3 Ml Syringe) 3 ml IVFLUSH QSHIFT [facility] Last Admin: 09/09/21 00:31 Dose: Not Given Documented by: Topiramate (Topiramate 100 Mg Tablet) 100 mg PO BID [facility] Last Admin: 09/08/21 21:24 Dose: 100 mg Documented by: Home Medications Medication Instructions Recorded Confirmed Last Taken Type clonazepam 1 mg tablet 1 tab PO BEDTIME PRN 03/22/21 09/08/21 09/07/21 History docusate sodium 100 mg capsule 1 cap PO BID PRN 03/22/21 09/08/21 09/07/21 History ergocalciferol (vitamin D2) 1,250 1 cap PO WE 03/22/21 09/08/21 09/07/21 History mcg (50,000 unit) capsule montelukast 10 mg tablet 1 tab PO BEDTIME 03/22/21 09/08/21 09/07/21 History multivitamin 1 tab PO QAM 03/22/21 09/08/21 09/07/21 History topiramate 100 mg tablet 1 tab PO BID 03/22/21 09/08/21 09/07/21 History vitamin B complex-folic acid 0.4 1 tab PO QAM 03/22/21 09/08/21 09/07/21 History mg tablet (B Complex 1 (with folic acid)) albuterol sulfate 1 amp INHALATION Q6H PRN 06/13/21 09/08/21 09/07/21 History albuterol sulfate 90 mcg/actuation 2 puff PO QID PRN 06/13/21 09/08/21 09/07/21 History aerosol inhaler (ProAir HFA) apixaban 5 mg tablet (Eliquis) 5 mg PO BID 06/13/21 09/08/21 09/07/21 History esomeprazole magnesium 20 mg 1 cap PO QAM PRN 06/13/21 09/08/21 09/07/21 History capsule,delayed release buspirone 5 mg tablet 1 tab PO DAILY 06/25/21 09/08/21 09/07/21 History calcium carbonate 600 mg-vitamin 1 tab PO BID 06/25/21 09/08/21 09/07/21 History D3 10 mcg (400 unit) tablet hydroxyzine HCl 25 mg tablet 1 - 2 tab PO TID PRN 06/25/21 09/08/21 09/07/21 History lidocaine 4 % topical patch 1 patch TOPICAL DAILY PRN 06/25/21 09/08/21 09/07/21 History budesonide-formoterol HFA 160 2 puff PO DAILY 09/08/21 09/08/21 09/07/21 History mcg-4.5 mcg/actuation aerosol inhaler (Symbicort) Physical Exam Vital Signs: Vital Signs: Last Vital Signs Temp 97.6 F 09/09/21 07:47 Pulse 74 09/09/21 07:47 Resp 17 09/09/21 07:47 BP 114/63 09/09/21 07:47 Pulse Ox 99 09/09/21 07:47 BMI result Body Mass Index 36.4 Const: General: No confusion Nutritional Appearance: obese Orientation/consciousness: patient oriented x3 and No confusion Limitations: no limitations HENMT: Head: Yes normal to inspection, Yes normocephalic and Yes atraumatic Ears: hearing grossly normal bilaterally, external ears normal, TM's normal bilaterally and EAC's normal General nose exam: Normal external nose present Face and sinus: Yes normal facial exam and Yes sinuses nontender Mouth: Normal oral and palatal mucosa present Throat: Yes posterior oropharynx normal Eyes: Conjunctivae: conjunctivae normal Pupils: Equal, round and reactive pupils present EOM: EOMs intact bilaterally Neck: Neck: Yes full ROM, Yes no lymphadenopathy and Yes supple Resp: Effort & Inspection: normal respiratory effort and able to speak in complete sentences Auscultation: clear to auscultation bilaterally, no crackles, no rales, no rhonchi and no wheezes Cardio: Rate: regular rate Rhythm: regular rhythm Heart sounds: S1 normal heart sound present and S2 normal heart sound present GI: Inspection: Yes obesity Palpation (GI): Soft to palpation, Tenderness to palpation present (GI) in the LLQ, Guarding due to palpation present (GI) in the LLQ and in the LUQ and not rigid Percussion: Yes normal to percussion Auscultation: normal bowel sounds Skin: General skin exam: no rashes or lesions noted Neuro: General: patient oriented x3 and No confusion Cranial nerves: Yes Equal, round and reactive pupils present Extrem: General: Yes normal to inspection and Yes full ROM Psych: Appearance: grossly normal Affect: normal affect Attitude: cooperative Thought process: Normal thought process present Results Labs CBC & Chem 7: 09/09/21 06:11 09/09/21 06:11 Labs: Short CBC 09/09/21 Range/Units 06:11 WBC 8.5 (4.8-10.8) X10*3/uL Hgb 11.0 L (12.0-16.0) g/dl Hct 35.0 L (37.0-47.0) % Plt Count 239 (160-400) X10*3/uL BMP 09/09/21 06:11 Sodium 140 Potassium 4.3 Chloride 113 H Carbon Dioxide 19 L BUN 10 Creatinine 0.[address] scan - abdomen: Attestation: I personally reviewed and interpreted this imaging study as follows: My impression: thickened strictured bowel on lef side with mesenteric stranding Assessment and Plan (1) Crohn's colitis: Status: Acute (2) Stricture of sigmoid colon: Status: Acute 1/ Appears to be flare of crohns, not been on MTX for 2 months PLAN: 1/ Bowel rest, can try clears if able to tolerate and advance as able 2/ check c diff if has diarrhea 3/ solumedrol 20 mg q8 h for 48 hrs then can transition to PO prednisone 40 mg and taper--would add IV flagyl and IV ceftriaxone in case any infectious component 4/ if no improvement or toxic megacolon may need surgery 5/ will need MTX resprescribed on d/c 6/ f/u with Dr Woods for possible repeat colonoscopy and dilation at future date Procedures Date of Service Date of Service: 09/09/21
[2021-09-09] MEDS: PARoxetine HCL 20 MG TABLET PO (10:04)
[2021-09-09] MEDS: busPIRone HCl 5 MG TABLET PO (10:04)
[2021-09-09] MEDS: risperiDONE 1 MG TABLET PO ×2 (10:05→20:30)
[2021-09-09] MEDS: Multivitamin TABLET 1 TAB PO (10:05)
[2021-09-09] MEDS: Apixaban 5 MG TABLET PO ×2 (10:05→20:29)
[2021-09-09] MEDS: Topiramate 100 MG TABLET PO ×2 (10:05→20:29)
[2021-09-09] MEDS: methylPREDNISolone Sod Succ 40 MG/ML VIAL IVPUSH ×2 (10:06→20:31)
--- NOTE | 2021-09-09 10:08 | P.PNIM_ITS ---
Subjective Subjective Date of Service: 09/09/21 Interval History: f/u on abdominal pain d/t pSBO d/t croh's disease Review of Systems no fever +abdominal pain Physical Exam Vital Signs: Vital Signs: Last Vital Signs Temp 97.6 F 09/09/21 07:47 Pulse 74 09/09/21 07:47 Resp 17 09/09/21 07:47 BP 114/63 09/09/21 07:47 Pulse Ox 99 09/09/21 07:47 BMI result Body Mass Index 36.4 Const: Other: General: AO X 3, no acute distress Resp: CTA bilateral CVS: S1,S2,RRR GI: +BS, NT, non-specific tenderness Skin: No rash Neuro: motor grossly intact Psych: appropriate affect Objective Data Active Medications Acetaminophen (Acetaminophen 325 Mg Tablet) 650 mg PO Q6H PRN PRN Reason: Pain, Mild (Pain Scale 1-3) Albuterol Sulfate (Albuterol Sulfate (0.083%) 2.5 Mg/3 Ml Vial.Neb) 2.5 mg INHALE Q6H PRN PRN Reason: Wheezing Apixaban (Apixaban 5 Mg Tablet) 5 mg PO BID [facility] Last Admin: 09/08/21 21:24 Dose: 5 mg Documented by: NELY Buspirone HCl (Buspirone Hcl 5 Mg Tablet) 5 mg PO DAILY [facility] Clonazepam (Clonazepam 1 Mg Tablet) 1 mg PO BEDTIME PRN PRN Reason: Sleep Last Admin: 09/09/21 01:53 Dose: 1 mg Documented by: ZEINAB Hydroxyzine HCl (Hydroxyzine Hcl 25 Mg Tablet) 25 mg PO TID PRN PRN Reason: Anxiety Dextrose/Sodium Chloride (D5ns) 1,000 mls @ 100 mls/hr IVCONT .Q10H [facility] Last Admin: 09/09/21 00:25 Dose: 100 mls/hr Documented by: ZEINAB Lidocaine (Lidocaine 4 % Patch Adh..Patch) 1 patch TRANSDERMA DAILY PRN; Protocol PRN Reason: Breakthrough Pain Methylprednisolone Sodium Succinate (Methylprednisolone Sod Succ 40 Mg/Ml Vial) 40 mg IVPUSH BID [facility] Last Admin: 09/08/21 21:17 Dose: 40 mg Documented by: NELY Morphine Sulfate (Morphine Sulfate 4 Mg/Ml Cartridge) 2 mg IVPUSH Q4H PRN; Protocol PRN Reason: Pain, Severe (Pain Scale 7-10) Last Admin: 09/09/21 06:44 Dose: 2 mg Documented by: ZEINAB Multivitamins/Vitamin C (Multivitamin Tablet) 1 tab PO DAILY [facility] Omeprazole (Omeprazole 40 Mg Capsule.Dr) 40 mg PO DAILY@0630 [facility] Last Admin: 09/09/21 05:28 Dose: 40 mg Documented by: ZEINAB Ondansetron HCl (Ondansetron Hcl 4 Mg/2 Ml Vial) 4 mg IVPUSH Q8H PRN PRN Reason: Nausea and Vomiting Last Admin: 09/09/21 06:44 Dose: 4 mg Documented by: ZEINAB Paroxetine HCl (Paroxetine Hcl 20 Mg Tablet) 20 mg PO DAILY [facility] Pharmacy Consult (Consult Rx Perform Med Rec) 1 each MISCELLANE ONCE PRN PRN Reason: Consult order Risperidone (Risperidone 1 Mg Tablet) 1 mg PO BID [facility] Last Admin: 09/08/21 21:24 Dose: 1 mg Documented by: NELY Sodium Bicarbonate (Sodium Bicarbonate 650 Mg Tablet) 1,300 mg PO BID [facility] Sodium Chloride (0.9 % Sodium Chloride Flush 3 Ml Syringe) 3 ml IVFLUSH QSHIFT [facility] Last Admin: 09/09/21 00:31 Dose: Not Given Documented by: ZEINAB Non-Admin Reason: IV Running Topiramate (Topiramate 100 Mg Tablet) 100 mg PO BID [facility] Last Admin: 09/08/21 21:24 Dose: 100 mg Documented by: NELY Labs CBC & Chem 7: 09/09/21 06:11 09/09/21 06:11 Labs: Laboratory Results - last 24 hr 09/08/21 09/08/21 09/08/21 05:47 05:47 11:03 MCV MCH MCHC RDW Plt Count MPV Absolute Nucleated RBC Nucleated RBC % (auto) ESR 23 H D-Dimer High Sensitivty 163 Anion Gap Estim Creat Clear Calc Estimated GFR Random Glucose Calcium Lactate Dehydrogenase 198 Troponin I High Sens C-Reactive Protein 0.84 H 09/08/21 09/09/21 09/09/21 11:03 06:11 06:11 MCV 81.2 MCH 25.5 L MCHC 31.4 RDW 15.2 Plt Count 239 MPV 11.7 Absolute Nucleated RBC 0.000 Nucleated RBC % (auto) 0.0 ESR D-Dimer High Sensitivty Anion Gap 12 Estim Creat Clear Calc 98.9 Estimated GFR > 60 Random Glucose 147 H Calcium 8.9 Lactate Dehydrogenase Troponin I High Sens < 3.5 C-Reactive Protein Assessment and Plan (1) Crohn's colitis: Status: Acute (2) SBO (small bowel obstruction): Status: Acute Assessment and Plan: 51/F with Crohn's disease, PTSD, pulmonary embolism on Eliquis, RA among others who presented to the hospital with worsening abdominal pain over the last 2 weeks. Partial intestinal obstruction Secondary to Crohn's colitis CT scan as reported ?Keep NPO, advanced diet as tolerated Start gentle hydration Zofran for nausea Start steroid therapy Get GI/Surgery evaluation No role for antibiotics at this point repeat imaging tomorrow pulmonary embolism Diagnosed in March 2021 continue p.o. Eliquis PTSD and Recurrent major depression: continue home medications Rheumatoid arthritis: continue home medications Hypertension: continue medication Hyperlipidemia: continue medications Quality Stroke Does the patient have a stroke diagnosis?: No VTE Prior VTE?: No VTE Risk Level:: Medical - moderate - high VTE Device Contraindication: Treatment Not Indicated VTE Drug Contraindication: N/A - Med Ordered
[2021-09-09] MEDS: 0.9 % Sodium Chloride Flush 3 ML SYRINGE IVFLUSH (10:24)
[2021-09-09] MEDS: Sodium Bicarbonate 650 MG TABLET 1300 MG PO ×2 (10:24→20:30)
[2021-09-09 13:31] LABS: Appearance Urine CLEAR; Color Urine YELLOW; Glucose Urine UA NEG (NEG); Leukocyte Esterase Urine NEG (NEG); Nitrite Urine NEG (NEG); PH 6.5 (5.0-8.0); Urine Blood NEG (NEG); Urine Ketones NEG (NEG); Urine Protein NEG (NEG-TRACE)
[2021-09-09 13:33] LABS: UPreg QC Valid YES; Urine Pregnancy NEGATIVE (NEGATIVE)
--- NOTE | 2021-09-09 14:46 | MHC.CM.PN ---
EMR REVIEWED, PT ADMITTED W/ABD PAIN AND FOUND TO HAVE SBO, CM MET W/PT VIA PRACTICE COORDINATOR, PT REPORTS SHE LIVES ALONE, HAS A CANE AND WALKER, HER DTR ROSIBEL IS HER DAILY [employer]PER[employer] HOWEVER PT DOES NOT RECALL NAME OF COMPANY OR HOW MANY HOURS SHE RECEIVES, PT VERIFIES PCP [facility], DENIES BEING VACCINATED FOR COVID AND WAS POSITIVE AT THE BEGINNING OF THE MONTH, PT HAS HCP ON FILE HOWEVER WANTED TO CHANGE HER HEALTH CARE AGENT TO TING FUENTES [phone] AND ALTERNATE IS NOW ROSIBEL FUENTES (PTS DTR/SUPERVIS[employer]) H:[phone] C: [phone]. D/C PLAN: HOME W/RESUMP OF DAILY [employer]PER[employer], PT WILL CALL FAMILY FOR TRANSPORT.
[2021-09-10] VITALS (7 sets, daily range): BP systolic 113–171; BP diastolic 60–83; PULSE 59–86; RESP 18–20; TEMP 35.4–36.6; O2SAT 95–98
[2021-09-10] MEDS: ondansetron HCL 4 MG/2 ML VIAL IVPUSH (00:14)
[2021-09-10] MEDS: 0.9 % Sodium Chloride Flush 3 ML SYRINGE IVFLUSH (00:15)
[2021-09-10] MEDS: Morphine Sulfate 4 MG/ML CARTRIDGE 2 MG IVPUSH ×4 (00:15→21:31)
[2021-09-10] MEDS: clonazePAM 1 MG TABLET PO ×2 (00:47→21:31)
[2021-09-10] MEDS: Dextrose 5 % and 0.9 % NaCl 1,000 ML 100 ML IVCONT ×2 (06:15→16:14)
--- NOTE | 2021-09-10 09:38 | HO.PM.IMPN ---
Subjective Subjective Date of Service: 09/10/21 Interval History: f/u on abdominal pain d/t pSBO d/t croh's disease, no diarrhea Review of Systems no fever +abdominal pain Physical Exam Vital Signs: Vital Signs: Last Vital Signs Temp 97.3 F 09/10/21 07:18 Pulse 64 09/10/21 07:18 Resp 20 09/10/21 07:18 BP 125/60 09/10/21 07:18 Pulse Ox 96 09/10/21 07:18 BMI result Body Mass Index 36.4 Const: Other: General: AO X 3, no acute distress Resp: CTA bilateral CVS: S1,S2,RRR GI: +BS, NT, non-specific tenderness Skin: No rash Neuro: motor grossly intact Psych: appropriate affect Objective Data Active Medications Acetaminophen (Acetaminophen 325 Mg Tablet) 650 mg PO Q6H PRN PRN Reason: Pain, Mild (Pain Scale 1-3) Albuterol Sulfate (Albuterol Sulfate (0.083%) 2.5 Mg/3 Ml Vial.Neb) 2.5 mg INHALE Q6H PRN PRN Reason: Wheezing Apixaban (Apixaban 5 Mg Tablet) 5 mg PO BID [facility] Last Admin: 09/09/21 20:29 Dose: 5 mg Documented by: NUNU Buspirone HCl (Buspirone Hcl 5 Mg Tablet) 5 mg PO DAILY [facility] Last Admin: 09/09/21 10:04 Dose: 5 mg Documented by: TYBURMilly Clonazepam (Clonazepam 1 Mg Tablet) 1 mg PO BEDTIME PRN PRN Reason: Sleep Last Admin: 09/10/21 00:47 Dose: 1 mg Documented by: GLADYS Hydroxyzine HCl (Hydroxyzine Hcl 25 Mg Tablet) 25 mg PO TID PRN PRN Reason: Anxiety Dextrose/Sodium Chloride (D5ns) 1,000 mls @ 100 mls/hr IVCONT .Q10H [facility] Last Admin: 09/10/21 06:15 Dose: 100 mls/hr Documented by: GLADYS Lidocaine (Lidocaine 4 % Patch Adh..Patch) 1 patch TRANSDERMA DAILY PRN; Protocol PRN Reason: Breakthrough Pain Methylprednisolone Sodium Succinate (Methylprednisolone Sod Succ 40 Mg/Ml Vial) 40 mg IVPUSH BID [facility] Last Admin: 09/09/21 20:31 Dose: 40 mg Documented by: NUNU Metronidazole (Metronidazole 500 Mg Tablet) 500 mg PO Q12H [facility] Morphine Sulfate (Morphine Sulfate 4 Mg/Ml Cartridge) 2 mg IVPUSH Q4H PRN; Protocol PRN Reason: Pain, Severe (Pain Scale 7-10) Last Admin: 09/10/21 06:11 Dose: 2 mg Documented by: GLADYS Multivitamins/Vitamin C (Multivitamin Tablet) 1 tab PO DAILY [facility] Last Admin: 09/09/21 10:05 Dose: 1 tab Documented by: ALINA Omeprazole (Omeprazole 40 Mg Capsule.Dr) 40 mg PO DAILY@0630 [facility] Last Admin: 09/10/21 06:14 Dose: Not Given Documented by: GLADYS Non-Admin Reason: Patient Refused Ondansetron HCl (Ondansetron Hcl 4 Mg/2 Ml Vial) 4 mg IVPUSH Q8H PRN PRN Reason: Nausea and Vomiting Last Admin: 09/10/21 00:14 Dose: 4 mg Documented by: CHARISSA Paroxetine HCl (Paroxetine Hcl 20 Mg Tablet) 20 mg PO DAILY [facility] Last Admin: 09/09/21 10:04 Dose: 20 mg Documented by: ALINA Pharmacy Consult (Consult Rx Perform Med Rec) 1 each MISCELLANE ONCE PRN PRN Reason: Consult order Risperidone (Risperidone 1 Mg Tablet) 1 mg PO BID [facility] Last Admin: 09/09/21 20:30 Dose: 1 mg Documented by: NUNU Sodium Bicarbonate (Sodium Bicarbonate 650 Mg Tablet) 1,300 mg PO BID [facility] Last Admin: 09/09/21 20:30 Dose: 1,300 mg Documented by: NUNU Sodium Chloride (0.9 % Sodium Chloride Flush 3 Ml Syringe) 3 ml IVFLUSH QSHIFT [facility] Last Admin: 09/10/21 00:15 Dose: 3 ml Documented by: CHARISSA Topiramate (Topiramate 100 Mg Tablet) 100 mg PO BID [facility] Last Admin: 09/09/21 20:29 Dose: 100 mg Documented by: NUNU Labs CBC & Chem 7: 09/09/21 06:11 09/09/21 06:11 Labs: Laboratory Results - last 24 hr 09/09/21 09/09/21 12:22 12:22 Urine Color YELLOW Urine Appearance CLEAR Urine pH 6.5 Ur Specific [place] 1.020 Urine Protein NEG Urine Glucose (UA) NEG Urine Ketones NEG Urine Blood NEG Urine Nitrite NEG Ur Leukocyte Esterase NEG Urine Test NEGATIVE Assessment and Plan (1) Crohn's colitis: Status: Acute (2) SBO (small bowel obstruction): Status: Acute Assessment and Plan: 51/F with Crohn's disease, PTSD, pulmonary embolism on Eliquis, RA among others who presented to the hospital with worsening abdominal pain over the last 2 weeks. Partial intestinal obstruction Secondary to Crohn's colitis CT scan as reported Advance diet Start gentle hydration Zofran for nausea continue steroid Get GI/Surgery evaluation No role for antibiotics at this point reapeating imaging if change in clinical course pulmonary embolism Diagnosed in March 2021 continue p.o. Eliquis PTSD and Recurrent major depression: continue home medications Rheumatoid arthritis: continue home medications Hypertension: continue medication Hyperlipidemia: continue medications Quality Stroke Does the patient have a stroke diagnosis?: No VTE Prior VTE?: No VTE Risk Level:: Medical - moderate - high VTE Device Contraindication: Treatment Not Indicated VTE Drug Contraindication: N/A - Med Ordered
[2021-09-10] MEDS: PARoxetine HCL 20 MG TABLET PO (10:51)
[2021-09-10] MEDS: Multivitamin TABLET 1 TAB PO (10:51)
[2021-09-10] MEDS: Sodium Bicarbonate 650 MG TABLET 1300 MG PO ×2 (10:51→20:50)
[2021-09-10] MEDS: Apixaban 5 MG TABLET PO ×2 (10:51→20:50)
[2021-09-10] MEDS: metroNIDAZOLE 500 MG TABLET PO ×2 (10:51→20:50)
[2021-09-10] MEDS: Topiramate 100 MG TABLET PO ×2 (10:52→20:50)
[2021-09-10] MEDS: risperiDONE 1 MG TABLET PO ×2 (10:52→20:50)
[2021-09-10] MEDS: busPIRone HCl 5 MG TABLET PO (10:52)
--- NOTE | 2021-09-10 14:23 | MHC.CM.PN ---
PLAN IS ADVANCE DIET AND DISCHARGE HOME IF TOLERATED. RN AWARE OF PLAN.
--- NOTE | 2021-09-10 15:48 | PM.PNGS ---
Subjective Subjective Date of Service: 09/10/21 Interval history: Continued abdominal pain. Physical Exam Vital Signs: Vital Signs: Last Vital Signs Temp 97.9 F 09/10/21 15:43 Pulse 72 09/10/21 15:43 Resp 18 09/10/21 15:43 BP 117/60 09/10/21 15:43 Pulse Ox 98 09/10/21 15:43 BMI result Body Mass Index 36.4 Const: General: no acute distress Nutritional Appearance: obese Orientation/consciousness: patient oriented x3 Resp: Effort & Inspection: normal respiratory effort GI: Other: Mild tenderness in upper abdomen, no rebound or guarding. Skin: General skin exam: no rashes or lesions noted Neuro: General: patient oriented x3 Extrem: General: No edema Objective Data Active Medications Acetaminophen (Acetaminophen 325 Mg Tablet) 650 mg PO Q6H PRN PRN Reason: Pain, Mild (Pain Scale 1-3) Albuterol Sulfate (Albuterol Sulfate (0.083%) 2.5 Mg/3 Ml Vial.Neb) 2.5 mg INHALE Q6H PRN PRN Reason: Wheezing Apixaban (Apixaban 5 Mg Tablet) 5 mg PO BID [facility] Last Admin: 09/10/21 10:51 Dose: 5 mg Documented by: LYSMarya Buspirone HCl (Buspirone Hcl 5 Mg Tablet) 5 mg PO DAILY [facility] Last Admin: 09/10/21 10:52 Dose: 5 mg Documented by: LYSMarya Clonazepam (Clonazepam 1 Mg Tablet) 1 mg PO BEDTIME PRN PRN Reason: Sleep Last Admin: 09/10/21 00:47 Dose: 1 mg Documented by: RACHELASY Hydroxyzine HCl (Hydroxyzine Hcl 25 Mg Tablet) 25 mg PO TID PRN PRN Reason: Anxiety Dextrose/Sodium Chloride (D5ns) 1,000 mls @ 100 mls/hr IVCONT .Q10H [facility] Last Admin: 09/10/21 06:15 Dose: 100 mls/hr Documented by: GLADYS Lidocaine (Lidocaine 4 % Patch Adh..Patch) 1 patch TRANSDERMA DAILY PRN; Protocol PRN Reason: Breakthrough Pain Methylprednisolone Sodium Succinate (Methylprednisolone Sod Succ 40 Mg/Ml Vial) 40 mg IVPUSH TID [facility] Metronidazole (Metronidazole 500 Mg Tablet) 500 mg PO Q12H [facility] Last Admin: 09/10/21 10:51 Dose: 500 mg Documented by: CYNTHIA Morphine Sulfate (Morphine Sulfate 4 Mg/Ml Cartridge) 2 mg IVPUSH Q4H PRN; Protocol PRN Reason: Pain, Severe (Pain Scale 7-10) Last Admin: 09/10/21 10:52 Dose: 2 mg Documented by: CYNTHIA Multivitamins/Vitamin C (Multivitamin Tablet) 1 tab PO DAILY [facility] Last Admin: 09/10/21 10:51 Dose: 1 tab Documented by: CYNTHIA Omeprazole (Omeprazole 40 Mg Capsule.Dr) 40 mg PO DAILY@0630 [facility] Last Admin: 09/10/21 06:14 Dose: Not Given Documented by: GLADYS Non-Admin Reason: Patient Refused Ondansetron HCl (Ondansetron Hcl 4 Mg/2 Ml Vial) 4 mg IVPUSH Q8H PRN PRN Reason: Nausea and Vomiting Last Admin: 09/10/21 00:14 Dose: 4 mg Documented by: CHARISSA Paroxetine HCl (Paroxetine Hcl 20 Mg Tablet) 20 mg PO DAILY [facility] Last Admin: 09/10/21 10:51 Dose: 20 mg Documented by: CYNTHIA Pharmacy Consult (Consult Rx Perform Med Rec) 1 each MISCELLANE ONCE PRN PRN Reason: Consult order Risperidone (Risperidone 1 Mg Tablet) 1 mg PO BID [facility] Last Admin: 09/10/21 10:52 Dose: 1 mg Documented by: CYNTHIA Sodium Bicarbonate (Sodium Bicarbonate 650 Mg Tablet) 1,300 mg PO BID [facility] Last Admin: 09/10/21 10:51 Dose: 1,300 mg Documented by: CYNTHIA Sodium Chloride (0.9 % Sodium Chloride Flush 3 Ml Syringe) 3 ml IVFLUSH QSHIFT [facility] Last Admin: 09/10/21 10:52 Dose: Not Given Documented by: CYNTHIA Non-Admin Reason: IV Running Topiramate (Topiramate 100 Mg Tablet) 100 mg PO BID [facility] Last Admin: 09/10/21 10:52 Dose: 100 mg Documented by: CYNTHIA Labs CBC & Chem 7: 09/09/21 06:11 09/09/21 06:11 Procedures Date of Service Date of Service: 09/10/21 Progress Note: A&P Assessment and plan (1) Stricture of sigmoid colon: Status: Acute Assessment and Plan: Stricture of sigmoid colon, probable Crohn's flare. Appreciate Gastroenterology input. Steroid bolus, bowel rest, antibiotics recommended. Surgery if develops megacolon. Will continue to monitor. Fall Risk Details Current Medications: Current Medications Acetaminophen (Acetaminophen 325 Mg Tablet) 650 mg PO Q6H PRN PRN Reason: Pain, Mild (Pain Scale 1-3) Albuterol Sulfate (Albuterol Sulfate (0.083%) 2.5 Mg/3 Ml Vial.Neb) 2.5 mg INHALE Q6H PRN PRN Reason: Wheezing Apixaban (Apixaban 5 Mg Tablet) 5 mg PO BID [facility] Last Admin: 09/10/21 10:51 Dose: 5 mg Documented by: Buspirone HCl (Buspirone Hcl 5 Mg Tablet) 5 mg PO DAILY [facility] Last Admin: 09/10/21 10:52 Dose: 5 mg Documented by: Clonazepam (Clonazepam 1 Mg Tablet) 1 mg PO BEDTIME PRN PRN Reason: Sleep Last Admin: 09/10/21 00:47 Dose: 1 mg Documented by: Hydroxyzine HCl (Hydroxyzine Hcl 25 Mg Tablet) 25 mg PO TID PRN PRN Reason: Anxiety Dextrose/Sodium Chloride (D5ns) 1,000 mls @ 100 mls/hr IVCONT .Q10H [facility] Last Admin: 09/10/21 06:15 Dose: 100 mls/hr Documented by: Lidocaine (Lidocaine 4 % Patch Adh..Patch) 1 patch TRANSDERMA DAILY PRN; Protocol PRN Reason: Breakthrough Pain Methylprednisolone Sodium Succinate (Methylprednisolone Sod Succ 40 Mg/Ml Vial) 40 mg IVPUSH TID [facility] Metronidazole (Metronidazole 500 Mg Tablet) 500 mg PO Q12H [facility] Last Admin: 09/10/21 10:51 Dose: 500 mg Documented by: Morphine Sulfate (Morphine Sulfate 4 Mg/Ml Cartridge) 2 mg IVPUSH Q4H PRN; Protocol PRN Reason: Pain, Severe (Pain Scale 7-10) Last Admin: 09/10/21 10:52 Dose: 2 mg Documented by: Multivitamins/Vitamin C (Multivitamin Tablet) 1 tab PO DAILY [facility] Last Admin: 09/10/21 10:51 Dose: 1 tab Documented by: Omeprazole (Omeprazole 40 Mg Mckenzie.) 40 mg PO DAILY@0630 [facility] Last Admin: 09/10/21 06:14 Dose: Not Given Documented by: Ondansetron HCl (Ondansetron Hcl 4 Mg/2 Ml Vial) 4 mg IVPUSH Q8H PRN PRN Reason: Nausea and Vomiting Last Admin: 09/10/21 00:14 Dose: 4 mg Documented by: Paroxetine HCl (Paroxetine Hcl 20 Mg Tablet) 20 mg PO DAILY [facility] Last Admin: 09/10/21 10:51 Dose: 20 mg Documented by: Pharmacy Consult (Consult Rx Perform Med Rec) 1 each MISCELLANE ONCE PRN PRN Reason: Consult order Risperidone (Risperidone 1 Mg Tablet) 1 mg PO BID [facility] Last Admin: 09/10/21 10:52 Dose: 1 mg Documented by: Sodium Bicarbonate (Sodium Bicarbonate 650 Mg Tablet) 1,300 mg PO BID [facility] Last Admin: 09/10/21 10:51 Dose: 1,300 mg Documented by: Sodium Chloride (0.9 % Sodium Chloride Flush 3 Ml Syringe) 3 ml IVFLUSH QSHIFT [facility] Last Admin: 09/10/21 10:52 Dose: Not Given Documented by: Topiramate (Topiramate 100 Mg Tablet) 100 mg PO BID [facility] Last Admin: 09/10/21 10:52 Dose: 100 mg Documented by: Time Spent With Patient Time: Total time spent is greater than 50% in coordination of care (as documented) at patient's floor/unit and/or counseling patient: Time with patient: 15 - 24 minutes Quality Stroke Does the patient have a stroke diagnosis?: No VTE Prior VTE?: No VTE Risk Level:: Medical - moderate - high VTE Device Contraindication: Treatment Not Indicated VTE Drug Contraindication: N/A - Med Ordered
[2021-09-10] MEDS: methylPREDNISolone Sod Succ 40 MG/ML VIAL IVPUSH ×2 (16:15→20:50)
[2021-09-11] VITALS (8 sets, daily range): BP systolic 132–180; BP diastolic 63–93; PULSE 51–78; RESP 16–18; TEMP 36.2–37; O2SAT 95–99
[2021-09-11] MEDS: Dextrose 5 % and 0.9 % NaCl 1,000 ML 100 ML IVCONT (02:37)
[2021-09-11] MEDS: Morphine Sulfate 4 MG/ML CARTRIDGE 2 MG IVPUSH ×5 (03:55→20:22)
[2021-09-11] MEDS: Omeprazole 40 MG CAPSULE.DR PO (06:23)
[2021-09-11] MEDS: PARoxetine HCL 20 MG TABLET PO (07:55)
[2021-09-11] MEDS: risperiDONE 1 MG TABLET PO ×2 (07:55→20:22)
[2021-09-11] MEDS: methylPREDNISolone Sod Succ 40 MG/ML VIAL IVPUSH ×3 (07:55→20:22)
[2021-09-11] MEDS: Topiramate 100 MG TABLET PO ×2 (07:55→20:22)
[2021-09-11] MEDS: Multivitamin TABLET 1 TAB PO (07:55)
[2021-09-11] MEDS: metroNIDAZOLE 500 MG TABLET PO ×2 (07:55→20:22)
[2021-09-11] MEDS: Apixaban 5 MG TABLET PO (07:55)
[2021-09-11] MEDS: busPIRone HCl 5 MG TABLET PO (07:56)
[2021-09-11] MEDS: Sodium Bicarbonate 650 MG TABLET 1300 MG PO ×2 (07:56→20:21)
--- NOTE | 2021-09-11 10:38 | HO.PM.IMPN ---
Subjective Subjective Date of Service: 09/11/21 Interval History: f/u on abdominal pain d/t pSBO d/t croh's disease, feels better today Review of Systems no fever +abdominal pain Physical Exam Vital Signs: Vital Signs: Last Vital Signs Temp 97.6 F 09/11/21 07:29 Pulse 67 09/11/21 07:29 Resp 16 09/11/21 07:29 BP 136/71 09/11/21 07:29 Pulse Ox 99 09/11/21 07:29 BMI result Body Mass Index 36.4 Const: Other: General: AO X 3, no acute distress Resp: CTA bilateral CVS: S1,S2,RRR GI: +BS, NT, non-specific tenderness Skin: No rash Neuro: motor grossly intact Psych: appropriate affect Objective Data Active Medications Acetaminophen (Acetaminophen 325 Mg Tablet) 650 mg PO Q6H PRN PRN Reason: Pain, Mild (Pain Scale 1-3) Albuterol Sulfate (Albuterol Sulfate (0.083%) 2.5 Mg/3 Ml Vial.Neb) 2.5 mg INHALE Q6H PRN PRN Reason: Wheezing Apixaban (Apixaban 5 Mg Tablet) 5 mg PO BID [facility] Last Admin: 09/11/21 07:55 Dose: 5 mg Documented by: SELVIN Buspirone HCl (Buspirone Hcl 5 Mg Tablet) 5 mg PO DAILY [facility] Last Admin: 09/11/21 07:56 Dose: 5 mg Documented by: SELVIN Clonazepam (Clonazepam 1 Mg Tablet) 1 mg PO BEDTIME PRN PRN Reason: Sleep Last Admin: 09/10/21 21:31 Dose: 1 mg Documented by: ARGELIA Hydroxyzine HCl (Hydroxyzine Hcl 25 Mg Tablet) 25 mg PO TID PRN PRN Reason: Anxiety Dextrose/Sodium Chloride (D5ns) 1,000 mls @ 100 mls/hr IVCONT .Q10H [facility] Last Admin: 09/11/21 02:37 Dose: 100 mls/hr Documented by: ARGELIA Lidocaine (Lidocaine 4 % Patch Adh..Patch) 1 patch TRANSDERMA DAILY PRN; Protocol PRN Reason: Breakthrough Pain Methylprednisolone Sodium Succinate (Methylprednisolone Sod Succ 40 Mg/Ml Vial) 40 mg IVPUSH TID [facility] Last Admin: 09/11/21 07:55 Dose: 40 mg Documented by: SELVIN Metronidazole (Metronidazole 500 Mg Tablet) 500 mg PO Q12H [facility] Last Admin: 09/11/21 07:55 Dose: 500 mg Documented by: SELVIN Morphine Sulfate (Morphine Sulfate 4 Mg/Ml Cartridge) 2 mg IVPUSH Q4H PRN; Protocol PRN Reason: Pain, Severe (Pain Scale 7-10) Last Admin: 09/11/21 08:04 Dose: 2 mg Documented by: SELVIN Multivitamins/Vitamin C (Multivitamin Tablet) 1 tab PO DAILY [facility] Last Admin: 09/11/21 07:55 Dose: 1 tab Documented by: SELVIN Omeprazole (Omeprazole 40 Mg Capsule.Dr) 40 mg PO DAILY@0630 [facility] Last Admin: 09/11/21 06:23 Dose: 40 mg Documented by: ARGELIA Ondansetron HCl (Ondansetron Hcl 4 Mg/2 Ml Vial) 4 mg IVPUSH Q8H PRN PRN Reason: Nausea and Vomiting Last Admin: 09/10/21 00:14 Dose: 4 mg Documented by: CHARISSA Paroxetine HCl (Paroxetine Hcl 20 Mg Tablet) 20 mg PO DAILY [facility] Last Admin: 09/11/21 07:55 Dose: 20 mg Documented by: SELVIN Pharmacy Consult (Consult Rx Perform Med Rec) 1 each MISCELLANE ONCE PRN PRN Reason: Consult order Risperidone (Risperidone 1 Mg Tablet) 1 mg PO BID [facility] Last Admin: 09/11/21 07:55 Dose: 1 mg Documented by: SELVIN Sodium Bicarbonate (Sodium Bicarbonate 650 Mg Tablet) 1,300 mg PO BID [facility] Last Admin: 09/11/21 07:56 Dose: 1,300 mg Documented by: SELVIN Sodium Chloride (0.9 % Sodium Chloride Flush 3 Ml Syringe) 3 ml IVFLUSH QSHIFT [facility] Last Admin: 09/11/21 07:50 Dose: Not Given Documented by: SELVIN Non-Admin Reason: IV Running Topiramate (Topiramate 100 Mg Tablet) 100 mg PO BID [facility] Last Admin: 09/11/21 07:55 Dose: 100 mg Documented by: SELVIN Labs CBC & Chem 7: 09/09/21 06:11 09/09/21 06:11 Assessment and Plan (1) Crohn's colitis: Status: Acute (2) SBO (small bowel obstruction): Status: Acute Assessment and Plan: 51/F with Crohn's disease, PTSD, pulmonary embolism on Eliquis, RA among others who presented to the hospital with worsening abdominal pain over the last 2 weeks. Partial intestinal obstruction Secondary to Crohn's colitis -Being followed clnically by surgery, surgery if megacolon, clinically better -GI will perform dilation in 1 or 2 days pulmonary embolism Diagnosed in March 2021 Holding Eliquis before surgery PTSD and Recurrent major depression: continue home medications Rheumatoid arthritis: continue home medications Hypertension: continue medication Hyperlipidemia: continue medications Quality Stroke Does the patient have a stroke diagnosis?: No VTE Prior VTE?: No VTE Risk Level:: Medical - moderate - high VTE Device Contraindication: Treatment Not Indicated VTE Drug Contraindication: N/A - Med Ordered
[2021-09-11] MEDS: hydrOXYzine HCL 25 MG TABLET PO ×2 (11:18→20:22)
--- NOTE | 2021-09-11 12:20 | MHC.CM.PN ---
ENDOSCOPY PLANNED FOR 09/12/21 RN AND PATIENT AWARE OF PLAN.
[2021-09-11] MEDS: clonazePAM 1 MG TABLET PO (20:22)
[2021-09-11] MEDS: 0.9 % Sodium Chloride Flush 3 ML SYRINGE IVFLUSH (20:23)
[2021-09-12 03:20] VITALS: BP 133/79; PULSE 56; RESP 18; TEMP 36; O2SAT 96
[2021-09-12] MEDS: Morphine Sulfate 4 MG/ML CARTRIDGE 2 MG IVPUSH ×5 (03:33→23:23)
[2021-09-12] MEDS: Omeprazole 40 MG CAPSULE.DR PO (05:46)
[2021-09-12 07:44] VITALS: BP 133/73; PULSE 57; RESP 18; TEMP 35.8; O2SAT 98
[2021-09-12] MEDS: Sodium Bicarbonate 650 MG TABLET 1300 MG PO ×2 (07:48→20:17)
[2021-09-12] MEDS: Multivitamin TABLET 1 TAB PO (07:49)
[2021-09-12] MEDS: Topiramate 100 MG TABLET PO ×2 (07:49→20:17)
[2021-09-12] MEDS: methylPREDNISolone Sod Succ 40 MG/ML VIAL IVPUSH ×3 (07:49→20:17)
[2021-09-12] MEDS: PARoxetine HCL 20 MG TABLET PO (07:49)
[2021-09-12] MEDS: busPIRone HCl 5 MG TABLET PO (07:49)
[2021-09-12] MEDS: risperiDONE 1 MG TABLET PO ×2 (07:49→20:17)
[2021-09-12] MEDS: ondansetron HCL 4 MG/2 ML VIAL IVPUSH ×2 (07:55→18:25)
[2021-09-12] MEDS: metroNIDAZOLE 500 MG TABLET PO ×2 (08:00→20:17)
[2021-09-12] MEDS: 0.9 % Sodium Chloride Flush 3 ML SYRINGE IVFLUSH ×3 (08:56→20:17)
--- NOTE | 2021-09-12 09:54 | P.PNIM_ITS ---
Subjective Subjective Date of Service: 09/12/21 Interval History: f/u on abdominal pain d/t pSBO d/t croh's disease, feels better today Review of Systems no fever +abdominal pain Physical Exam Vital Signs: Vital Signs: Last Vital Signs Temp 96.5 F L 09/12/21 07:44 Pulse 57 09/12/21 07:44 Resp 18 09/12/21 07:44 BP 133/73 09/12/21 07:44 Pulse Ox 98 09/12/21 07:44 BMI result Body Mass Index 36.4 Const: Other: General: AO X 3, no acute distress Resp: CTA bilateral CVS: S1,S2,RRR GI: +BS, NT, non-specific tenderness Skin: No rash Neuro: motor grossly intact Psych: appropriate affect Objective Data Active Medications Acetaminophen (Acetaminophen 325 Mg Tablet) 650 mg PO Q6H PRN PRN Reason: Pain, Mild (Pain Scale 1-3) Albuterol Sulfate (Albuterol Sulfate (0.083%) 2.5 Mg/3 Ml Vial.Neb) 2.5 mg INHALE Q6H PRN PRN Reason: Wheezing Apixaban (Apixaban 5 Mg Tablet) 5 mg PO BID [facility] Last Admin: 09/11/21 07:55 Dose: 5 mg Documented by: SELVIN Buspirone HCl (Buspirone Hcl 5 Mg Tablet) 5 mg PO DAILY [facility] Last Admin: 09/12/21 07:49 Dose: 5 mg Documented by: KARTHIKEYAN Clonazepam (Clonazepam 1 Mg Tablet) 1 mg PO BEDTIME PRN PRN Reason: Sleep Last Admin: 09/11/21 20:22 Dose: 1 mg Documented by: RAMÍREZ Hydroxyzine HCl (Hydroxyzine Hcl 25 Mg Tablet) 25 mg PO TID PRN PRN Reason: Anxiety Last Admin: 09/11/21 20:22 Dose: 25 mg Documented by: RAMÍREZ Lidocaine (Lidocaine 4 % Patch Adh..Patch) 1 patch TRANSDERMA DAILY PRN; Protocol PRN Reason: Breakthrough Pain Methylprednisolone Sodium Succinate (Methylprednisolone Sod Succ 40 Mg/Ml Vial) 40 mg IVPUSH TID [facility] Last Admin: 09/12/21 07:49 Dose: 40 mg Documented by: KARTHIKEYAN Metronidazole (Metronidazole 500 Mg Tablet) 500 mg PO Q12H [facility] Last Admin: 09/12/21 08:00 Dose: 500 mg Documented by: KARTHIKEYAN Morphine Sulfate (Morphine Sulfate 4 Mg/Ml Cartridge) 2 mg IVPUSH Q4H PRN; Protocol PRN Reason: Pain, Severe (Pain Scale 7-10) Last Admin: 09/12/21 07:56 Dose: 2 mg Documented by: KARTHIKEYAN Multivitamins/Vitamin C (Multivitamin Tablet) 1 tab PO DAILY [facility] Last Admin: 09/12/21 07:49 Dose: 1 tab Documented by: KARTHIKEYAN Omeprazole (Omeprazole 40 Mg Capsule.Dr) 40 mg PO DAILY@0630 [facility] Last Admin: 09/12/21 05:46 Dose: 40 mg Documented by: RAMÍREZ Ondansetron HCl (Ondansetron Hcl 4 Mg/2 Ml Vial) 4 mg IVPUSH Q8H PRN PRN Reason: Nausea and Vomiting Last Admin: 09/12/21 07:55 Dose: 4 mg Documented by: KARTHIKEYAN Paroxetine HCl (Paroxetine Hcl 20 Mg Tablet) 20 mg PO DAILY [facility] Last Admin: 09/12/21 07:49 Dose: 20 mg Documented by: KARTHIKEYAN Pharmacy Consult (Consult Rx Perform Med Rec) 1 each MISCELLANE ONCE PRN PRN Reason: Consult order Risperidone (Risperidone 1 Mg Tablet) 1 mg PO BID [facility] Last Admin: 09/12/21 07:49 Dose: 1 mg Documented by: KARTHIKEYAN Sodium Bicarbonate (Sodium Bicarbonate 650 Mg Tablet) 1,300 mg PO BID [facility] Last Admin: 09/12/21 07:48 Dose: 1,300 mg Documented by: KARTHIKEYAN Sodium Chloride (0.9 % Sodium Chloride Flush 3 Ml Syringe) 3 ml IVFLUSH QSHIFT [facility] Last Admin: 09/12/21 08:56 Dose: 3 ml Documented by: KARTHIKEYAN Topiramate (Topiramate 100 Mg Tablet) 100 mg PO BID [facility] Last Admin: 09/12/21 07:49 Dose: 100 mg Documented by: KARTHIKEYAN Labs CBC & Chem 7: 09/09/21 06:11 09/09/21 06:11 Assessment and Plan (1) Crohn's colitis: Status: Acute (2) SBO (small bowel obstruction): Status: Acute Assessment and Plan: 51/F with Crohn's disease, PTSD, pulmonary embolism on Eliquis, RA among others who presented to the hospital with worsening abdominal pain over the last 2 weeks. Partial intestinal obstruction Secondary to Crohn's colitis -Being followed clnically by surgery, surgery if megacolon, clinically better -GI will perform dilation tomorrow -for now liquid diet pulmonary embolism Diagnosed in March 2021 Holding Eliquis before surgery PTSD and Recurrent major depression: continue home medications Rheumatoid arthritis: continue home medications Hypertension: continue medication Hyperlipidemia: continue medications Quality Stroke Does the patient have a stroke diagnosis?: No VTE Prior VTE?: No VTE Risk Level:: Medical - moderate - high VTE Device Contraindication: Treatment Not Indicated VTE Drug Contraindication: N/A - Med Ordered
[2021-09-12 11:18] VITALS: BP 133/78; PULSE 70; RESP 18; TEMP 36.3; O2SAT 96
--- NOTE | 2021-09-12 12:35 | MHC.CM.PN ---
EMR REVIEWED, PT REMAINS ON FULL LIQUID DIET AND IV PAIN MEDS, PER HOSPITALIST PLAN FOR DILATION TOMORROW 09/13/21, CM WILL CONT TO FOLLOW D/C NEEDS.
--- NOTE | 2021-09-12 12:51 | P.PNGI_ITS ---
Subjective Subjective Date of Service: 09/12/21 Interval History: Very flat affect passing gas, and had passed normal stool yesterday still having abdominal pain managing clear diet no bleeding or fevers Critical Care Time (minutes): 0 Physical Exam Vital Signs: Vital Signs: Last Vital Signs Temp 97.8 F 09/13/21 07:08 Pulse 69 09/13/21 07:08 Resp 18 09/13/21 07:08 BP 129/75 09/13/21 07:08 Pulse Ox 97 09/13/21 07:08 BMI result Body Mass Index 36.4 Const: General: cooperative Resp: Effort & Inspection: normal respiratory effort Cardio: Rate: regular rate GI: Inspection: Yes normal to inspection Palpation (GI): Tenderness to palpation present (GI) in the LLQ Auscultation: normal bowel sounds Extrem: General: Yes normal to inspection Psych: Speech and movement: Slowed speech present (Psych) (flat affect) Affect: Indifferent affect present and Blunted affect present Objective Data Labs CBC & Chem 7: 09/09/21 06:11 09/09/21 06:11 Procedures Date of Service Date of Service: 09/12/21 Progress Note: A&P Assessment and plan (1) Crohn's colitis: Status: Acute (2) Stricture of sigmoid colon: Status: Acute Assessment and Plan: 1/ Crohns complicated by flare and chronic stricture, seems to be resolving albeit slowly PLAN: 1/ hold on colonoscopy -would wait for 3-4 weeks let the inflammation subside before considering another dilation 2/ can use PO pred and taper over 2 weeks, can cont with flagyl for 7 days in total then stop (also anti inflammatory effect and prevents bacterial translocation) 3/ I informed Dr owlf about her methotrexate needing refilled, she will do this 4/ she may benefit from psych eval, seems v depressed with flat affect, steroids and her recurrent chronic disease playing a role as well 5/ check micronutrients and supplement jin zinc 6/ restart eliquis due to high risk of DVT etc in IBD patients Fall Risk Details Current Medications: Current Medications Acetaminophen (Acetaminophen 325 Mg Tablet) 650 mg PO Q6H PRN PRN Reason: Pain, Mild (Pain Scale 1-3) Albuterol Sulfate (Albuterol Sulfate (0.083%) 2.5 Mg/3 Ml Vial.Neb) 2.5 mg INHALE Q6H PRN PRN Reason: Wheezing Apixaban (Apixaban 5 Mg Tablet) 5 mg PO BID [facility] Last Admin: 09/11/21 07:55 Dose: 5 mg Documented by: Buspirone HCl (Buspirone Hcl 5 Mg Tablet) 5 mg PO DAILY [facility] Last Admin: 09/13/21 07:41 Dose: 5 mg Documented by: Clonazepam (Clonazepam 1 Mg Tablet) 1 mg PO BEDTIME PRN PRN Reason: Sleep Last Admin: 09/12/21 20:17 Dose: 1 mg Documented by: Hydroxyzine HCl (Hydroxyzine Hcl 25 Mg Tablet) 25 mg PO TID PRN PRN Reason: Anxiety Last Admin: 09/12/21 23:23 Dose: 25 mg Documented by: Lidocaine (Lidocaine 4 % Patch Adh..Patch) 1 patch TRANSDERMA DAILY PRN; Protocol PRN Reason: Breakthrough Pain Methylprednisolone Sodium Succinate (Methylprednisolone Sod Succ 40 Mg/Ml Vial) 40 mg IVPUSH TID [facility] Last Admin: 09/13/21 07:42 Dose: 40 mg Documented by: Metronidazole (Metronidazole 500 Mg Tablet) 500 mg PO Q12H [facility] Last Admin: 09/13/21 07:41 Dose: 500 mg Documented by: Morphine Sulfate (Morphine Sulfate 4 Mg/Ml Cartridge) 2 mg IVPUSH Q4H PRN; Protocol PRN Reason: Pain, Severe (Pain Scale 7-10) Last Admin: 09/13/21 07:42 Dose: 2 mg Documented by: Multivitamins/Vitamin C (Multivitamin Tablet) 1 tab PO DAILY [facility] Last Admin: 09/13/21 07:41 Dose: 1 tab Documented by: Omeprazole (Omeprazole 40 Mg Capsule.Dr) 40 mg PO DAILY@0630 [facility] Last Admin: 09/13/21 05:41 Dose: 40 mg Documented by: Ondansetron HCl (Ondansetron Hcl 4 Mg/2 Ml Vial) 4 mg IVPUSH Q8H PRN PRN Reason: Nausea and Vomiting Last Admin: 09/12/21 18:25 Dose: 4 mg Documented by: Paroxetine HCl (Paroxetine Hcl 20 Mg Tablet) 20 mg PO DAILY [facility] Last Admin: 09/13/21 07:41 Dose: 20 mg Documented by: Pharmacy Consult (Consult Rx Perform Med Rec) 1 each MISCELLANE ONCE PRN PRN Reason: Consult order Risperidone (Risperidone 1 Mg Tablet) 1 mg PO BID [facility] Last Admin: 09/13/21 07:42 Dose: 1 mg Documented by: Sodium Bicarbonate (Sodium Bicarbonate 650 Mg Tablet) 1,300 mg PO BID [facility] Last Admin: 09/13/21 07:41 Dose: 1,300 mg Documented by: Sodium Chloride (0.9 % Sodium Chloride Flush 3 Ml Syringe) 3 ml IVFLUSH QSHIFT [facility] Last Admin: 09/13/21 07:42 Dose: 3 ml Documented by: Topiramate (Topiramate 100 Mg Tablet) 100 mg PO BID [facility] Last Admin: 09/13/21 07:42 Dose: 100 mg Documented by: Time Spent With Patient Time: Total time spent is greater than 50% in coordination of care (as docum ented) at patient's floor/unit and/or counseling patient: Time with patient: 15 - 24 minutes Quality Stroke Does the patient have a stroke diagnosis?: No VTE Prior VTE?: No VTE Risk Level:: Medical - moderate - high VTE Device Contraindication: Treatment Not Indicated VTE Drug Contraindication: N/A - Med Ordered
[2021-09-12 15:34] VITALS: BP 126/69; PULSE 61; RESP 18; TEMP 36.4; O2SAT 96
[2021-09-12] MEDS: USTEKINUMAB 90 MG/ML SUBCUT (16:25)
[2021-09-12] MEDS: hydrOXYzine HCL 25 MG TABLET PO ×2 (16:28→23:23)
[2021-09-12 19:48] VITALS: BP 148/83; PULSE 58; RESP 18; TEMP 36.8; O2SAT 98
[2021-09-12] MEDS: clonazePAM 1 MG TABLET PO (20:17)
[2021-09-12 23:44] VITALS: BP 126/64; PULSE 56; RESP 18; TEMP 36.6; O2SAT 95
[2021-09-13] VITALS (8 sets, daily range): BP systolic 90–173; BP diastolic 60–83; PULSE 51–69; RESP 12–20; TEMP 35.9–36.8; O2SAT 95–99
[2021-09-13] MEDS: Morphine Sulfate 4 MG/ML CARTRIDGE 2 MG IVPUSH ×3 (03:27→12:03)
[2021-09-13] MEDS: Omeprazole 40 MG CAPSULE.DR PO (05:41)
[2021-09-13] MEDS: PARoxetine HCL 20 MG TABLET PO (07:41)
[2021-09-13] MEDS: busPIRone HCl 5 MG TABLET PO (07:41)
[2021-09-13] MEDS: metroNIDAZOLE 500 MG TABLET PO ×2 (07:41→18:20)
[2021-09-13] MEDS: Multivitamin TABLET 1 TAB PO (07:41)
[2021-09-13] MEDS: Sodium Bicarbonate 650 MG TABLET 1300 MG PO ×2 (07:41→22:05)
[2021-09-13] MEDS: methylPREDNISolone Sod Succ 40 MG/ML VIAL IVPUSH ×3 (07:42→22:05)
[2021-09-13] MEDS: risperiDONE 1 MG TABLET PO ×2 (07:42→22:05)
[2021-09-13] MEDS: 0.9 % Sodium Chloride Flush 3 ML SYRINGE IVFLUSH ×2 (07:42→18:21)
[2021-09-13] MEDS: Topiramate 100 MG TABLET PO ×2 (07:42→22:04)
--- NOTE | 2021-09-13 09:36 | HO.PM.IMPN ---
Subjective Subjective Date of Service: 09/13/21 Interval History: f/u on abdominal pain d/t pSBO d/t croh's disease, still some degree of pain Review of Systems no fever +abdominal pain Physical Exam Vital Signs: Vital Signs: Last Vital Signs Temp 97.8 F 09/13/21 07:08 Pulse 69 09/13/21 07:08 Resp 18 09/13/21 07:08 BP 129/75 09/13/21 07:08 Pulse Ox 97 09/13/21 07:08 BMI result Body Mass Index 36.4 Const: Other: General: AO X 3, no acute distress Resp: CTA bilateral CVS: S1,S2,RRR GI: +BS, NT, non-specific tenderness Skin: No rash Neuro: motor grossly intact Psych: appropriate affect Objective Data Active Medications Acetaminophen (Acetaminophen 325 Mg Tablet) 650 mg PO Q6H PRN PRN Reason: Pain, Mild (Pain Scale 1-3) Albuterol Sulfate (Albuterol Sulfate (0.083%) 2.5 Mg/3 Ml Vial.Neb) 2.5 mg INHALE Q6H PRN PRN Reason: Wheezing Apixaban (Apixaban 5 Mg Tablet) 5 mg PO BID [facility] Last Admin: 09/11/21 07:55 Dose: 5 mg Documented by: SELVIN Buspirone HCl (Buspirone Hcl 5 Mg Tablet) 5 mg PO DAILY [facility] Last Admin: 09/13/21 07:41 Dose: 5 mg Documented by: KARTHIKEYAN Clonazepam (Clonazepam 1 Mg Tablet) 1 mg PO BEDTIME PRN PRN Reason: Sleep Last Admin: 09/12/21 20:17 Dose: 1 mg Documented by: RAMÍREZ Hydroxyzine HCl (Hydroxyzine Hcl 25 Mg Tablet) 25 mg PO TID PRN PRN Reason: Anxiety Last Admin: 09/12/21 23:23 Dose: 25 mg Documented by: RAMÍREZ Lidocaine (Lidocaine 4 % Patch Adh..Patch) 1 patch TRANSDERMA DAILY PRN; Protocol PRN Reason: Breakthrough Pain Methylprednisolone Sodium Succinate (Methylprednisolone Sod Succ 40 Mg/Ml Vial) 40 mg IVPUSH TID [facility] Last Admin: 09/13/21 07:42 Dose: 40 mg Documented by: KARTHIKEYAN Metronidazole (Metronidazole 500 Mg Tablet) 500 mg PO Q12H [facility] Last Admin: 09/13/21 07:41 Dose: 500 mg Documented by: KARTHIKEYAN Morphine Sulfate (Morphine Sulfate 4 Mg/Ml Cartridge) 2 mg IVPUSH Q4H PRN; Protocol PRN Reason: Pain, Severe (Pain Scale 7-10) Last Admin: 09/13/21 07:42 Dose: 2 mg Documented by: KARTHIKEYAN Multivitamins/Vitamin C (Multivitamin Tablet) 1 tab PO DAILY [facility] Last Admin: 09/13/21 07:41 Dose: 1 tab Documented by: KARTHIKEYAN Omeprazole (Omeprazole 40 Mg Capsule.Dr) 40 mg PO DAILY@0630 [facility] Last Admin: 09/13/21 05:41 Dose: 40 mg Documented by: RAMÍREZ Ondansetron HCl (Ondansetron Hcl 4 Mg/2 Ml Vial) 4 mg IVPUSH Q8H PRN PRN Reason: Nausea and Vomiting Last Admin: 09/12/21 18:25 Dose: 4 mg Documented by: RAMÍREZ Paroxetine HCl (Paroxetine Hcl 20 Mg Tablet) 20 mg PO DAILY [facility] Last Admin: 09/13/21 07:41 Dose: 20 mg Documented by: KARTHIKEYAN Pharmacy Consult (Consult Rx Perform Med Rec) 1 each MISCELLANE ONCE PRN PRN Reason: Consult order Risperidone (Risperidone 1 Mg Tablet) 1 mg PO BID [facility] Last Admin: 09/13/21 07:42 Dose: 1 mg Documented by: KARTHIKEYAN Sodium Bicarbonate (Sodium Bicarbonate 650 Mg Tablet) 1,300 mg PO BID [facility] Last Admin: 09/13/21 07:41 Dose: 1,300 mg Documented by: KARTHIKEYAN Sodium Chloride (0.9 % Sodium Chloride Flush 3 Ml Syringe) 3 ml IVFLUSH QSHIFT [facility] Last Admin: 09/13/21 07:42 Dose: 3 ml Documented by: KARTHIKEYAN Topiramate (Topiramate 100 Mg Tablet) 100 mg PO BID [facility] Last Admin: 09/13/21 07:42 Dose: 100 mg Documented by: KARTHIKEYAN Labs CBC & Chem 7: 09/09/21 06:11 09/09/21 06:11 Assessment and Plan (1) Stricture of sigmoid colon: Status: Acute (2) Crohn's colitis: Status: Acute (3) Pulmonary emboli: Status: Acute (4) Depression: Status: Acute Assessment and Plan: 51/F with Crohn's disease, PTSD, pulmonary embolism on Eliquis, RA among others who presented to the hospital with worsening abdominal pain over the last 2 weeks. Partial intestinal obstruction Secondary to Crohn's colitis -Being followed clnically by surgery, surgery if megacolon, clinically better -GI will perform dilation with possible stricture dilatation toda -for now liquid diet -Stelara given 09/12 pulmonary embolism Diagnosed in March 2021 Holding Eliquis before surgery and resume later today PTSD and Recurrent major depression: continue home medications Rheumatoid arthritis: continue home medications Hypertension: continue medication Hyperlipidemia: continue medications Quality Stroke Does the patient have a stroke diagnosis?: No VTE Prior VTE?: No VTE Risk Level:: Medical - moderate - high VTE Device Contraindication: Treatment Not Indicated VTE Drug Contraindication: N/A - Med Ordered
[2021-09-13] MEDS: Sodium Phosphate,Mono-Dibasic 133 ML ENEMA PR ×2 (13:08→13:26)
--- NOTE | 2021-09-13 14:09 | P.CONAN_ITS ---
HPI - Anesthesia Eval Consult details Narrative: 51 F for flx Sig PE in february [facility] Asthma , Crohn , RA , chronic upper and lower back pain . Anxiety Case discussed with Dr Palafox , as initial plan was to wait 3-4 weeks for this procedure . As per her, due to patient preference and issues with holding of Eliquis again , she would proceed with procedure as documented in her operative note . PMFSH Active Problems Active Problems: All Active Problems (Updated 09/09/21 @ 10:53 by Bairon Curiel MD) Stricture of sigmoid colon (Acute) Crohn's colitis (Acute) SBO (small bowel obstruction) (Acute) Vitamin D deficiency (Acute) Asthma (Acute) Chronic headache (Acute) Syncope, vasovagal (Acute) UTI (urinary tract infection) (Acute) Depression (Acute) Pulmonary emboli (Acute) Depression (Acute) Past Medical History Medical History Anxiety Asthma Cancer Crohn's colitis Crohn's disease Depression GERD (gastroesophageal reflux disease) Hemorrhagic cyst of ovary HTN (hypertension) Hyperlipidemia Iron deficiency anemia Kidney stones Migraine Normocytic anemia PTSD (post-traumatic stress disorder) Pulmonary embolism Recurrent major depression-severe Rheumatoid arthritis Sleep apnea Family History Family history of problems with anesthesia: No Surgical History Surgical History History of colon resection Hx of colonoscopy (~10/2018) Hx of cystoscopy Hx of cystoscopy Hx of dilation and curettage Hx of endoscopy History of Problems with Anesthesia: No Social History Social History Household Members: None Housing: Apartment Do you presently have visiting nurse or other home services: No Alcohol intake: never Patient Tobacco Use Status: Never used Tobacco Tobacco use type: Cigarette Years Smoked: 10 Second Hand Smoke Exposure: No Use of substances other than those prescribed or required for medical reasons: Yes Substance Use Type: Marijuana Substance Use Frequency: Weekly Currently Displaying Signs/Symptoms of Drug Intoxication Withdrawal: No Have you been hit, kicked, punched, or otherwise hurt by someone within the past year? If so, by whom?: No Do you feel safe in your current relationship?: No Is there a partner from a previous relationship who is making you feel unsafe now?: No Are you made to feel afraid or neglected: No Are you DNR?: No Advance Directives: No Advance Directives Date on File: 07/06/14 Do you have thoughts of harming others: None Do you have a plan to hurt others: No Plan Recently lost weight without trying: Yes Eating poorly because of decreased appetite: No Nutrition Risks: Acute nausea or vomiting x1 week service: No Current occupational status: unemployed and disabled Sexual orientation: Straight/Heterosexual Meds Allergies Allergy/AdvReac Type Severity Reaction Status Date / Time aspirin [ASA] Allergy Intermediate RASH Verified 09/13/21 13:58 azathioprine [From IMURAN] Allergy Intermediate PANCREATIC Verified 09/13/21 13:58 INFLAMMATION ibuprofen [IBUPROFEN] Allergy Intermediate TOLD NOT Verified 09/13/21 13:58 TO TAKE levofloxacin [From LEVAQUIN] Allergy Mild YEAST Verified 09/13/21 13:58 INFECTIONS Active Medications: Current Medications Acetaminophen (Acetaminophen 325 Mg Tablet) 650 mg PO Q6H PRN PRN Reason: Pain, Mild (Pain Scale 1-3) Albuterol Sulfate (Albuterol Sulfate (0.083%) 2.5 Mg/3 Ml Vial.Neb) 2.5 mg INHALE Q6H PRN PRN Reason: Wheezing Apixaban (Apixaban 5 Mg Tablet) 5 mg PO BID [facility] Last Admin: 09/11/21 07:55 Dose: 5 mg Documented by: Buspirone HCl (Buspirone Hcl 5 Mg Tablet) 5 mg PO DAILY [facility] Last Admin: 09/13/21 07:41 Dose: 5 mg Documented by: Clonazepam (Clonazepam 1 Mg Tablet) 1 mg PO BEDTIME PRN PRN Reason: Sleep Last Admin: 09/12/21 20:17 Dose: 1 mg Documented by: Hydroxyzine HCl (Hydroxyzine Hcl 25 Mg Tablet) 25 mg PO TID PRN PRN Reason: Anxiety Last Admin: 09/12/21 23:23 Dose: 25 mg Documented by: Lidocaine (Lidocaine 4 % Patch Adh..Patch) 1 patch TRANSDERMA DAILY PRN; Protocol PRN Reason: Breakthrough Pain Methylprednisolone Sodium Succinate (Methylprednisolone Sod Succ 40 Mg/Ml Vial) 40 mg IVPUSH TID [facility] Last Admin: 09/13/21 07:42 Dose: 40 mg Documented by: Metronidazole (Metronidazole 500 Mg Tablet) 500 mg PO Q12H [facility] Last Admin: 09/13/21 07:41 Dose: 500 mg Documented by: Morphine Sulfate (Morphine Sulfate 4 Mg/Ml Cartridge) 2 mg IVPUSH Q4H PRN; Protocol PRN Reason: Pain, Severe (Pain Scale 7-10) Last Admin: 09/13/21 12:03 Dose: 2 mg Documented by: Multivitamins/Vitamin C (Multivitamin Tablet) 1 tab PO DAILY [facility] Last Admin: 09/13/21 07:41 Dose: 1 tab Documented by: Omeprazole (Omeprazole 40 Mg Capsule.Dr) 40 mg PO DAILY@0630 [facility] Last Admin: 09/13/21 05:41 Dose: 40 mg Documented by: Ondansetron HCl (Ondansetron Hcl 4 Mg/2 Ml Vial) 4 mg IVPUSH Q8H PRN PRN Reason: Nausea and Vomiting Last Admin: 09/12/21 18:25 Dose: 4 mg Documented by: Paroxetine HCl (Paroxetine Hcl 20 Mg Tablet) 20 mg PO DAILY [facility] Last Admin: 09/13/21 07:41 Dose: 20 mg Documented by: Pharmacy Consult (Consult Rx Perform Med Rec) 1 each MISCELLANE ONCE PRN PRN Reason: Consult order Risperidone (Risperidone 1 Mg Tablet) 1 mg PO BID [facility] Last Admin: 09/13/21 07:42 Dose: 1 mg Documented by: Sodium Bicarbonate (Sodium Bicarbonate 650 Mg Tablet) 1,300 mg PO BID [facility] Last Admin: 09/13/21 07:41 Dose: 1,300 mg Documented by: Sodium Chloride (0.9 % Sodium Chloride Flush 3 Ml Syringe) 3 ml IVFLUSH QSHIFT [facility] Last Admin: 09/13/21 07:42 Dose: 3 ml Documented by: Topiramate (Topiramate 100 Mg Tablet) 100 mg PO BID [facility] Last Admin: 09/13/21 07:42 Dose: 100 mg Documented by: Home Medications Medication Instructions Recorded Confirmed Last Taken Type clonazepam 1 mg tablet 1 tab PO BEDTIME PRN 03/22/21 09/08/21 09/07/21 History docusate sodium 100 mg capsule 1 cap PO BID PRN 03/22/21 09/08/21 09/07/21 History ergocalciferol (vitamin D2) 1,250 1 cap PO WE 03/22/21 09/08/21 09/07/21 History mcg (50,000 unit) capsule montelukast 10 mg tablet 1 tab PO BEDTIME 03/22/21 09/08/21 09/07/21 History multivitamin 1 tab PO QAM 03/22/21 09/08/21 09/07/21 History topiramate 100 mg tablet 1 tab PO BID 03/22/21 09/08/21 09/07/21 History vitamin B complex-folic acid 0.4 1 tab PO QAM 03/22/21 09/08/21 09/07/21 History mg tablet (B Complex 1 (with folic acid)) albuterol sulfate 1 amp INHALATION Q6H PRN 06/13/21 09/08/21 09/07/21 History albuterol sulfate 90 mcg/actuation 2 puff PO QID PRN 06/13/21 09/08/21 09/07/21 History aerosol inhaler (ProAir HFA) apixaban 5 mg tablet (Eliquis) 5 mg PO BID 06/13/21 09/08/21 09/07/21 History esomeprazole magnesium 20 mg 1 cap PO QAM PRN 06/13/21 09/08/21 09/07/21 History capsule,delayed release buspirone 5 mg tablet 1 tab PO DAILY 06/25/21 09/08/21 09/07/21 History calcium carbonate 600 mg-vitamin 1 tab PO BID 06/25/21 09/08/21 09/07/21 History D3 10 mcg (400 unit) tablet hydroxyzine HCl 25 mg tablet 1 - 2 tab PO TID PRN 06/25/21 09/08/21 09/07/21 History lidocaine 4 % topical patch 1 patch TOPICAL DAILY PRN 06/25/21 09/08/21 09/07/21 History budesonide-formoterol HFA 160 2 puff PO DAILY 09/08/21 09/08/21 09/07/21 History mcg-4.5 mcg/actuation aerosol inhaler (Symbicort) Exam Exam Date and Time: September 13, 2021 140 Height,Weight and Vital Signs: Height 5 ft 3 in Weight 93.4 kg Last Vital Signs Temp 97.8 F 09/13/21 12:00 Pulse 54 09/13/21 12:00 Resp 20 09/13/21 12:00 BP 143/82 H 09/13/21 12:00 Pulse Ox 95 09/13/21 12:00 Pertinent Lab Results Pertinent Lab Results: Laboratory Tests 09/08/21 09/08/21 09/08/21 05:47 05:47 05:47 WBC 7.2 RBC 4.39 Hgb 11.2 L Hct 35.3 L MCV 80.4 MCH 25.5 L MCHC 31.7 RDW 15.6 Plt Count 233 MPV 11.5 Immature Gran % (Auto) 0.1 Neut % (Auto) 54.4 Lymph % (Auto) 31.0 [place] % (Auto) 11.1 H Eos % (Auto) 2.8 Baso % (Auto) 0.6 Lymph # (Auto) 2.2 [place] # (Auto) 0.8 Eos # (Auto) 0.2 Baso # (Auto) 0.0 Abs Immat Gran (auto) 0.01 Absolute Neuts (auto) 3.9 Absolute Nucleated RBC 0.000 Nucleated RBC % (auto) 0.0 ESR D-Dimer High Sensitivty Sodium 139 Potassium 3.8 Chloride 113 H Carbon Dioxide 18 L Anion Gap 12 BUN 15 Creatinine 0.84 Estim Creat Clear Calc 84.2 Estimated GFR > 60 Random Glucose 102 Calcium 9.4 Total Bilirubin < 0.2 AST 18 ALT 17 Alkaline Phosphatase 85 Lactate Dehydrogenase 198 Troponin I High Sens C-Reactive Protein 0.84 H Total Protein 7.4 Albumin 3.7 Lipase 35 Urine Color Urine Appearance Urine pH Ur Specific [place] Urine Protein Urine Glucose (UA) Urine Ketones Urine Blood Urine Nitrite Ur Leukocyte Esterase Urine Test COVID-19 (SHAAN) Negative COVID-19 Clin Com See Note 09/08/21 09/08/21 09/08/21 05:47 11:03 11:03 WBC RBC Hgb Hct MCV MCH MCHC RDW Plt Count MPV Immature Gran % (Auto) Neut % (Auto) Lymph % (Auto) [place] % (Auto) Eos % (Auto) Baso % (Auto) Lymph # (Auto) [place] # (Auto) Eos # (Auto) Baso # (Auto) Abs Immat Gran (auto) Absolute Neuts (auto) Absolute Nucleated RBC Nucleated RBC % (auto) ESR 23 H D-Dimer High Sensitivty 163 Sodium Potassium Chloride Carbon Dioxide Anion Gap BUN Creatinine Estim Creat Clear Calc Estimated GFR Random Glucose Calcium Total Bilirubin AST ALT Alkaline Phosphatase Lactate Dehydrogenase Troponin I High Sens < 3.5 C-Reactive Protein Total Protein Albumin Lipase Urine Color Urine Appearance Urine pH Ur Specific [place] Urine Protein Urine Glucose (UA) Urine Ketones Urine Blood Urine Nitrite Ur Leukocyte Esterase Urine Test COVID-19 (SHAAN) COVID-19 Clin Com 09/09/21 09/09/21 09/09/21 06:11 06:11 12:22 WBC 8.5 RBC 4.31 Hgb 11.0 L Hct 35.0 L MCV 81.2 MCH 25.5 L MCHC 31.4 RDW 15.2 Plt Count 239 MPV 11.7 Immature Gran % (Auto) Neut % (Auto) Lymph % (Auto) [place] % (Auto) Eos % (Auto) Baso % (Auto) Lymph # (Auto) [place] # (Auto) Eos # (Auto) Baso # (Auto) Abs Immat Gran (auto) Absolute Neuts (auto) Absolute Nucleated RBC 0.000 Nucleated RBC % (auto) 0.0 ESR D-Dimer High Sensitivty Sodium 140 Potassium 4.3 Chloride 113 H Carbon Dioxide 19 L Anion Gap 12 BUN 10 Creatinine 0.73 Estim Creat Clear Calc 98.9 Estimated GFR > 60 Random Glucose 147 H Calcium 8.9 Total Bilirubin AST ALT Alkaline Phosphatase Lactate Dehydrogenase Troponin I High Sens C-Reactive Protein Total Protein Albumin Lipase Urine Color Urine Appearance Urine pH Ur Specific [place] Urine Protein Urine Glucose (UA) Urine Ketones Urine Blood Urine Nitrite Ur Leukocyte Esterase Urine Test NEGATIVE COVID-19 (SHAAN) COVID-19 Clin Com 09/09/21 12:22 WBC RBC Hgb Hct MCV MCH MCHC RDW Plt Count MPV Immature Gran % (Auto) Neut % (Auto) Lymph % (Auto) [place] % (Auto) Eos % (Auto) Baso % (Auto) Lymph # (Auto) [place] # (Auto) Eos # (Auto) Baso # (Auto) Abs Immat Gran (auto) Absolute Neuts (auto) Absolute Nucleated RBC Nucleated RBC % (auto) ESR D-Dimer High Sensitivty Sodium Potassium Chloride Carbon Dioxide Anion Gap BUN Creatinine Estim Creat Clear Calc Estimated GFR Random Glucose Calcium Total Bilirubin AST ALT Alkaline Phosphatase Lactate Dehydrogenase Troponin I High Sens C-Reactive Protein Total Protein Albumin Lipase Urine Color YELLOW Urine Appearance CLEAR Urine pH 6.5 Ur Specific [place] 1.020 Urine Protein NEG Urine Glucose (UA) NEG Urine Ketones NEG Urine Blood NEG Urine Nitrite NEG Ur Leukocyte Esterase NEG Urine Test COVID-19 (SHAAN) COVID-19 Clin Com Airway Mallampati Class: II TM Dist: >3cm Neck ROM: Full Loose/Missing/Broken Teeth: Yes (chipped and missing ) Heart: rrr Lungs: bl breath sounds Assessment and Plan Assessment Anesthesia Assessment: Anesthesia Plan Discussed and Chart Reviewed Final Anesthetic Review Family History of Problems with Anesthesia: No History of Problems with Anesthesia: No NPO: Yes ASA Class: III Final Preanesthetic Review: Consent Obtained/Reviewed and Anes Risks/Benef Reviewed Patient Risk: Intermediate Procedure Risk: Intermediate Anesthetic Plan Anesthetic Plan: MAC: Disposition: Inp. Admit - Standard Bed
--- NOTE | 2021-09-13 15:00 | P.BOP_ITS ---
Brief Operative Note Date of Service: 09/13/21 Pre-op diagnosis: Crohn's disease with sigmoid colon stricture. Pt admitted with bowel obstruction and treated with bowel rest and IV steroids. Initial plan was to schedule Flex Sig with balloon dilation as on out patient in 3-4 weeks. Pt prefers to have this done during present hospitalization since she has multiple procedures scheduled next month. Also pt is having memory problems and 2nd concern is that she may not remember to hold Eliquis if procedure is performed as an outpatient. Post-op diagnosis: same Procedure: FLEXIBLE SIGMOIDOSCOPY TILL 50 CMS WITH BIOPSIES AND BALLOON DILATION OF SIGMOID STRICTURE Consent: Indications for the procedure and potential complications of bleeding, perforation, reaction to medications and missed diagnosis were discussed with the patient and informed consent was obtained. Instrument: Olympus GIF 190 upper endoscope Monitoring: Vital signs and clinical assessment, intermittent blood pressure monitoring, continuous EKG monitoring, Pulse oximetry and Carbon Dioxide monitoring were done throughout the procedure. Procedure: The patient was placed in the left lateral decubitis position and pre-procedure medications were administered. After a digital rectal examination of the ano-rectum, a midsize video upper?endoscope was advanced to 15 cms. It was not possible to advance further due to tight stricture. Balloon dilation to 12 mm was performed and the endoscope was advanced easily through the stricture to 50 cms. Endoscope was slowly withdrawn in a retrograde panoramic fashion and the colon mucosa was carefully examined inclu ding a retroflexed view of the rectum. Findings and interventions are described below. Procedure Difficulty: Without difficulty Findings: Sigmoid Colon:? Focal tight stricture from 15 to 18 cms with ulcerations. Stricture was dilated with a 10, 11 and 12 mm CRE Esophageal balloon x 60 sec at each level. The mid-size upper endoscope was advanced without resistance through the stricture.? No significant inflammtion noted in the colon mucosa proximal and distal to the stricture. Biopsies were obtained from the stricture and colon at 30 and 10 cms (proximal and distal to the stricture) Rectum:? Normal Ano-rectum: Dinorah-anal skin tags Colon preparation: ? Good after copious irrigation. 350 ml of liquid stool was suctioned from the colon. Impression and Post Procedure Diagnosis: Flexible Sigmoidoscopy Findings: Focal tight stricture from 15 to 18 cms with ulcerations. Stricture was dilated with a 10, 11 and 12 mm (36 F) CRE balloon x 60 sec at each level. Biopsies were obtained from the stricture and colon at 30 and 10 cms (proximal and distal to the stricture) Plan: Resume full liquid diet tonight and advance diet as tolerated. OK to resume Eliquis in the am. Switch to PO prednisone at 40 mg in the am and taper by 10 mg every 5 days over 3 weeks. Patient to schedule a FU appointment in the GI Clinic with? Libby Palafox M.D.. Surgeon: Libby Palafox MD Anesthesia: MAC (Ashley Yates CRNA) Was an Stretcher Drier Operator used for this Procedure?: Yes Stretcher Drier Operator: Laura Cormier Estimated blood loss (mL): 5 Pathology: other ( A- Sigmoid colon at 30cm B- Sigmoid stricture at 18cm C- Sigmoid BX at 10cm) Condition: stable Disposition: PACU
--- NOTE | 2021-09-13 15:00 | MHC.SHP ---
Pre-Procedural Eval Section A Date of Service: 09/13/21 The patient is an INPATIENT: Yes Changes since office visit: Yes New Medical Problems, Yes Changes in Medication and Yes Patient answered all questions; No Cold of Flu in the past 2 weeks The History & Physical has been completed within 30 days and I have reviewed it.: Yes Section B Chief Complaint: ABDOMINAL PAIN Allergies: Allergies Allergy/AdvReac Type Severity Reaction Status Date / Time aspirin [ASA] Allergy Intermediate RASH Verified 09/13/21 13:58 azathioprine [From IMURAN] Allergy Intermediate PANCREATIC Verified 09/13/21 13:58 INFLAMMATION ibuprofen [IBUPROFEN] Allergy Intermediate TOLD NOT Verified 09/13/21 13:58 TO TAKE levofloxacin [From LEVAQUIN] Allergy Mild YEAST Verified 09/13/21 13:58 INFECTIONS Plan I have reviewed the history and physical and performed a pertinent physical examination on my patient. No changes have occurred unless specified.
--- NOTE | 2021-09-13 15:06 | PM.EVENT ---
Event Note Date of Service: 09/13/21 Event Note: Pt admitted with bowel obstruction and treated with bowel rest and IV steroids. Initial plan was to schedule Flex Sig with balloon dilation as on out patient in 3-4 weeks. Pt prefers to have this done during present hospitalization since she has multiple procedures scheduled next month. Also pt is having memory problems and 2nd concern is that she may not remember to hold Eliquis if procedure is performed as an outpatient.
--- NOTE | 2021-09-13 15:07 | P.OP_ITS ---
Operative Note Operative Note Date of Service: 09/13/21 Narrative: Pre-op diagnosis: Crohn's disease with sigmoid colon stricture.? Pt admitted with bowel obstruction and treated with bowel rest and IV steroids.? Initial plan was to schedule Flex Sig with balloon dilation as on out patient in 3-4 weeks.? Pt prefers to have this done during present hospitalization since she has multiple procedures scheduled next month.? Also pt is having memory problems and 2nd concern is that she may not remember to hold Eliquis if procedure is performed as an outpatient. Post-op diagnosis:?same Procedure: FLEXIBLE SIGMOIDOSCOPY TILL 50 CMS WITH BIOPSIES AND BALLOON DILATION OF SIGMOID STRICTURE Consent: Indications for the procedure and potential complications of bleeding, perforation, reaction to medications and missed diagnosis were discussed with the patient and informed consent was obtained. Instrument: Olympus GIF 190 upper endoscope Monitoring: Vital signs and clinical assessment, intermittent blood pressure monitoring, continuous EKG monitoring, Pulse oximetry and Carbon Dioxide monitoring were done throughout the procedure. Procedure: The patient was placed in the left lateral decubitis position and pre-procedure medications were administered. After a digital rectal examination of the ano-rectum, a midsize video upper?endoscope was advanced to 15 cms.? It was not possible to advance further due to tight stricture. Balloon dilation to 12 mm was performed and the endoscope was advanced easily through the stricture to? 50 cms.? Endoscope was slowly withdrawn in a retrograde panoramic fashion and the colon mucosa was carefully examined including a retroflexed view of the rectum. Findings and interventions are described below. Procedure Difficulty: Without difficulty Findings: Sigmoid Colon:? Focal tight stricture from 15 to 18 cms with ulcerations. Stricture was dilated with a 10, 11 and 12 mm CRE Esophageal balloon x 60 sec at each level.? The mid-size upper endoscope was advanced without resistance through the stricture.? No significant inflammtion noted in the colon mucosa proximal and distal to the stricture.? Biopsies were obtained from the stricture and colon at 30 and 10 cms (proximal and distal to the stricture) Rectum:? Normal Ano-rectum: Dinorah-anal skin tags Colon preparation: ? Good after copious irrigation.? 350 ml of liquid stool was suctioned from the colon. Impression and Post Procedure Diagnosis: Flexible Sigmoidoscopy Findings: Focal tight stricture from 15 to 18 cms with ulcerations. Normal appearing mucosa proximal and distal to the stricture. Stricture was dilated with a 10, 11 and 12 mm (36 F) CRE balloon x 60 sec at each level. Biopsies were obtained from the stricture and colon at 30 and 10 cms (proximal and distal to the stricture) Plan: Resume full liquid diet tonight and advance diet as tolerated. OK to resume Eliquis in the am. Switch to PO prednisone at 40 mg in the am and taper by 10 mg every 5 days over 3 weeks. Patient to schedule a FU appointment in the GI Clinic with? Libby Palafox M.D.. Surgeon: Libby Palafox MD Anesthesia:?MAC (Ashley Yates CRNA) Was an Calibrator Barometers used for this Procedure?:?Yes Calibrator Barometers:?Laura Cormier Estimated blood loss (mL):?5 Pathology:?other ( A- Sigmoid colon at 30cm? B- Sigmoid stricture at 18cm? C- Sigmoid BX at 10cm) Condition:?stable Disposition:?PACU
[2021-09-13] MEDS: Lactated Ringers 1,000 ML 80 ML IVCONT ×2 (15:11→23:49)
[2021-09-13] MEDS: Morphine Sulfate 2 MG/ML CARTRIDGE IVPUSH (18:21)
[2021-09-13] MEDS: hydrOXYzine HCL 25 MG TABLET PO (22:04)
[2021-09-14] VITALS: BP 146/68; PULSE 62; RESP 20; TEMP 36.7; O2SAT 95
[2021-09-14 01:18] VITALS: RESP 20
[2021-09-14] MEDS: clonazePAM 0.5 MG TABLET PO (01:18)
[2021-09-14] MEDS: HYDROmorphone HCl 0.5 MG/0.5 ML SYRINGE IVPUSH (01:18)
[2021-09-14] MEDS: Omeprazole 40 MG CAPSULE.DR PO (06:24)
[2021-09-14 07:16] VITALS: BP 163/83; PULSE 58; RESP 18; TEMP 36.6; O2SAT 99
[2021-09-14] MEDS: methylPREDNISolone Sod Succ 40 MG/ML VIAL IVPUSH ×2 (07:50→14:11)
[2021-09-14] MEDS: 0.9 % Sodium Chloride Flush 3 ML SYRINGE IVFLUSH (07:50)
[2021-09-14] MEDS: Sodium Bicarbonate 650 MG TABLET 1300 MG PO (07:51)
[2021-09-14] MEDS: PARoxetine HCL 20 MG TABLET PO (07:51)
[2021-09-14] MEDS: Topiramate 100 MG TABLET PO (07:51)
[2021-09-14] MEDS: Multivitamin TABLET 1 TAB PO (07:51)
[2021-09-14] MEDS: risperiDONE 1 MG TABLET PO (07:51)
[2021-09-14] MEDS: metroNIDAZOLE 500 MG TABLET PO (07:51)
[2021-09-14] MEDS: busPIRone HCl 5 MG TABLET PO (08:06)
[2021-09-14] MEDS: hydrOXYzine HCL 25 MG TABLET PO ×2 (08:06→15:49)
[2021-09-14] MEDS: Apixaban 5 MG TABLET PO (10:23)
--- NOTE | 2021-09-14 10:39 | P.DS_ITS ---
DS: Providers Provider Date of Service: 09/14/21 Date of admission: 09/08/21 15:06 Primary care physician: Leesa Wasserman MD Consults: 09/08/21 15:06 Consult to Gastroenterology Routine Consulting Provider: Jose Vieira Reason for consultation: Abd pain, crohns disease w partial obstruction 09/09/21 10:13 Consult to General Surgery Routine Consulting Provider: Bairon Curiel Reason for consultation: partial small bowel obstruction DS: Diagnosis Discharge Diagnosis (1) Stricture of sigmoid colon: Status: Resolved (2) Crohn's colitis: Status: Acute (3) Pulmonary emboli: (4) Depression: DS: Summary Hospital Course Hospital Course: Chief Complaint: Abdominal pain, nausea a 50 years old lady with PMH of Crohn's disease, PTSD, pulmonary embolism on Eliquis, RA among others who presented to the hospital with worsening abdominal pain over the last 2 weeks. ? She reported that she started to have on and of pain over 2 weeks ago that has becoming more progressive and constant with time until today she could not bear it anymore and she decided to come to the hospital.? The pain is mid abdominal and radiating to the lower areas associated with mild nausea but no vomiting, no change in bowel habit, no fever or chills.? The patient was able to tolerate diet partially. In the emergency a CT scan of the abdomen was concerning for possible inflammatory changes versus possible partial obstruction.? Case discussed with surgery and Gastroenterology admitted for further evaluation. Hospital course: She presented with abdominal pain and was noted to have stricture related to crohn's disease, there was no evidence active infection. She was treated with IV steroid, empric Flagyl. She then underwent colonscopy with stricture dilation by Dr. Palafox on 09/13 after being off eliquis for 3 days. She is now feeling better, her diet has been advance and tolerating. She will follow up with Dr. Palafox on outpatient basis. She will be discharged with Prednisone taper with 40 mg daily and reduce by 10 mg every 5 days. She will resume Eliquis for history of PE Time Spent with Patient Time attestation: Total time spent providing and/or coordinating discharge services: Discharge coordination time: Greater than 30 minutes Quality: Stroke Does the patient have a stroke diagnosis?: No Physical Exam Verdana 4l Vital Signs: Verdana 4d Verdana 4d Vital Signs: Verdana 4d Verdana 4Bd Last Vital Signs Verdana 4d Special Procedures Technologist New 4d Special Procedures Technologist New 4d Temp 97.8 F 09/14/21 07:16 Special Procedures Technologist New 4d Pulse 58 09/14/21 07:16 Special Procedures Technologist New 4d Resp 18 09/14/21 07:16 BP 163/83 H 09/14/21 07:16 Pulse Ox 99 09/14/21 07:16 BMI result Body Mass Index 36.4 Const: Other: General: AO X 3, no acute distress Resp: CTA bilateral CVS: S1,S2,RRR GI: +BS, NT, no distention Skin: No rash Neuro: motor grossly intact Psych: appropriate affect DS: Data Data Completed and Pending Completed studies during hospitalization [Text1]: Procedures Dilation of Sigmoid Colon, Via Natural or Artificial Opening Endoscopic (03/01/21) Excision of Ascending Colon, Via Natural or Artificial Opening Endoscopic, Diagnostic (03/01/21) Excision of Cecum, Via Natural or Artificial Opening Endoscopic, Diagnostic (03/01/21) Excision of Descending Colon, Via Natural or Artificial Opening Endoscopic, Diagnostic (03/01/21) Excision of Duodenum, Via Natural or Artificial Opening Endoscopic, Diagnostic (03/01/21) Excision of Rectum, Via Natural or Artificial Opening Endoscopic (03/01/21) Excision of Sigmoid Colon, Via Natural or Artificial Opening Endoscopic, Diagnostic (03/01/21) Excision of Stomach, Pylorus, Via Natural or Artificial Opening Endoscopic, Diagnostic (03/01/21) Excision of Transverse Colon, Via Natural or Artificial Opening Endoscopic, Diagnostic (03/01/21) Extraction of Esophagus, Via Natural or Artificial Opening Endoscopic, Diagnostic (03/01/21) Pending studies at discharge: Pending at discharge 09/13/21 15:24 Surgical [PTH] Routine Discharge Plan Discharge Anticipated Discharge Date/Time: 09/14/21 10:06 Patient Disposition: Home, Self-Care Discharge Diagnosis: Stricture of the colon from crohn Referrals: Leesa Rapp MD [Primary Care Provider] - 1 Week Discharge Medications: New prednisone 10 mg tablet See Taper mg PO DAILY Qty: 50 0RF Taper: Prednisone 40 mg daily for 5 Days and 0 Hour 30 mg daily for 5 Days and 0 Hour 20 mg daily for 5 Days and 0 Hour 10 mg daily for 5 Days and 0 Hour oxycodone 5 mg capsule 5 mg PO Q8H PRN (Reason: pain (scale score 7-10)) Qty: 10 0RF Continued Stelara 90 mg/mL syringe 90 mg subcut Q4W 28 Days Qty: 1 3RF multivitamin Tablet 1 tab PO QAM 0RF clonazepam 1 mg tablet 1 tab PO BEDTIME PRN (Reason: Sleep) 0RF docusate sodium 100 mg capsule 1 cap PO BID PRN (Reason: Constipation) 0RF montelukast 10 mg tablet 1 tab PO BEDTIME 0RF ergocalciferol (vitamin D2) 1,250 mcg (50,000 unit) capsule 1 cap PO WE 0RF topiramate 100 mg tablet 1 tab PO BID 0RF vitamin B complex-folic acid [B Complex 1 (with folic acid)] 0.4 mg tablet 1 tab PO QAM 0RF paroxetine HCl 20 mg Tablet 20 mg PO DAILY Qty: 30 0RF risperidone 1 mg Tablet 1 mg PO BID Qty: 60 0RF albuterol sulfate 2.5 mg /3 mL (0.083 %) solution for nebulization 1 amp inhalation Q6H PRN (Reason: Wheezing) 0RF Eliquis 5 mg tablet 5 mg PO BID 0RF Rx Instructions: Take 10 mg Eliquis twice daily for 1 week, then take Eliquis 5 mg twice daily for next 3-4 months as per Hematology albuterol sulfate [ProAir HFA] 90 mcg/actuation HFA aerosol inhaler 2 puff PO QID PRN (Reason: Dyspnea) 0RF esomeprazole magnesium 20 mg capsule,delayed release(DR/EC) 1 cap PO QAM PRN (Reason: Acid Reflux) 0RF hydroxyzine HCl 25 mg tablet 1 - 2 tab PO TID PRN (Reason: Anxiety) 0RF calcium carbonate-vitamin D3 600 mg(1,500mg) -400 unit tablet 1 tab PO BID 0RF buspirone 5 mg tablet 1 tab PO DAILY 0RF lidocaine 4 % Adhesive Patch,Medicated 1 patch TOPICAL DAILY PRN (Reason: Breakthrough Pain) 0RF acetaminophen [Tylenol] 325 mg tablet 325 mg PO QID PRN (Reason: pain) Qty: 14 0RF budesonide-formoterol [Symbicort] 160-4.5 mcg/actuation HFA aerosol inhaler 2 puff PO DAILY 0RF No Action fluconazole 200 mg tablet 200 mg PO DAILY 11 Days Qty: 11 0RF Rx Instructions: Take 2 tablets on Day 1, then 1 tablet daily x 9 days Discharge Orders: Discharge Order (Routine); Ordered 09/14/21 Ordered By: Myron Urena Diet: advance to usual diet Activity on Discharge: As tolerated Stand Alone Forms: Patient Portal Discharge page Care Plan Goals: Full recovery from covid flare and return to normal functioning Health Concerns: Crohn's disease Plan of Treatment: Take Prednisone as dircted and follow up in a week Assessment: as above Discharge Date/Time: 09/14/21 17:13
[2021-09-14 12:00] VITALS: BP 132/76; PULSE 79; RESP 18; TEMP 37.1; O2SAT 97
--- NOTE | 2021-09-14 12:16 | MHC.CM.PN ---
PER HOSPITALIST PT CLEARED FOR D/C HOME W/RESUMP OF [employer], PT WILL CALL TO ARRANGE TRANSPORT
[2021-09-14] MEDS: Lactated Ringers 1,000 ML 80 ML IVCONT (13:35)
[2021-09-14] MEDS: Acetaminophen 325 MG TABLET 650 MG PO (14:11)
== END 2021-09-14 17:13 | disposition home or self-care (01) | DRG 245 ==
LOC: HO.ED 14:50 → HO.EDOVER 15:30 → HO.S3 20:00
PROVIDERS: Internal Medicine Gastroenterology; Physician Assistant; Admitting Provider Student in an Organized Health Care Education/Training Program; Emergency Provider Emergency Medicine; PCP Internal Medicine; Visit Provider Internal Medicine
PROC: 0DJD8ZZ Inspection of Lower Intestinal Tract, Via Natural or Artificial Opening Endoscopic (ICD-10-PCS; CPT 45330; principal; 2021-09-13 14:30)
DX: K50.112 Crohn's disease of large intestine with intestinal obstruction (principal); F33.9 Major depressive disorder, recurrent, unspecified; E78.5 Hyperlipidemia, unspecified; F43.10 Post-traumatic stress disorder, unspecified; I10 Essential (primary) hypertension; M06.9 Rheumatoid arthritis, unspecified; Z20.822 Contact with and (suspected) exposure to COVID-19; Z86.711 Personal history of pulmonary embolism; Z79.01 Long term (current) use of anticoagulants; Z88.6 Allergy status to analgesic agent; Z79.899 Other long term (current) drug therapy
CPT/HCPCS: 36415; 71045; 74177; 80048; 80053; 81003; 81025; 83615; 83690; 84484; 85025; 85027; 85379; 85652; 86140; 87635; 88305; 93005; 96361; 96374; 96375; 99285; C1726; J1170; J2270; J2405; J2920; J3357; Q9967

== ENCOUNTER → 2021-09-24 15:00 | Outpatient (BNVA) | payer MEDICAID, SELFPAY | PROVIDERS: PCP Internal Medicine; Referring Provider Internal Medicine; Visit Provider Internal Medicine Gastroenterology | DX: K50.10 Crohn's disease of large intestine without complications (principal); K56.699 Other intestinal obstruction unspecified as to partial versus complete obstruction | CPT/HCPCS: 99212 ==

== ENCOUNTER 2021-09-28 10:56 | Day surgery (SDC) | payer MEDICAID, SELFPAY ==
--- NOTE | 2021-09-27 13:12 | HO.ANESPROP2 ---
Documented by User: Caroline Chung NP 09/27/21 13:16 HPI - Anesthesia Eval Consult details Narrative: 51yo F for Upper Endoscopy s/p flex sig 09/13/21 with MAJOR Flynn for h/o PE PMFSH Active Problems Active Problems: All Active Problems (Updated 09/24/21 @ 16:09 by Libby Palafox MD) Stricture of colon (Acute) Crohn's colitis (Acute) Vitamin D deficiency (Acute) Asthma (Acute) Chronic headache (Acute) Syncope, vasovagal (Acute) UTI (urinary tract infection) (Acute) Depression (Acute) Past Medical History Medical History Anxiety Asthma Cancer Crohn's colitis Crohn's disease Depression Depression GERD (gastroesophageal reflux disease) Hemorrhagic cyst of ovary HTN (hypertension) Hyperlipidemia Iron deficiency anemia Kidney stones Migraine Normocytic anemia PTSD (post-traumatic stress disorder) Pulmonary emboli Pulmonary embolism Recurrent major depression-severe Rheumatoid arthritis Sleep apnea Family History Family history of problems with anesthesia: No Surgical History Surgical History History of colon resection Hx of colonoscopy (~10/2018) Hx of cystoscopy Hx of cystoscopy Hx of dilation and curettage Hx of endoscopy History of Problems with Anesthesia: No Social History Social History Household Members: None Housing: Apartment Do you presently have visiting nurse or other home services: No Alcohol intake: never Patient Tobacco Use Status: Never used Tobacco Tobacco use type: Cigarette Years Smoked: 10 Second Hand Smoke Exposure: No Use of substances other than those prescribed or required for medical reasons: Yes Substance Use Type: Marijuana Substance Use Frequency: Daily Are you DNR?: No Advance Directives: Yes Advance Directives on File: Yes Advance Directives Date on File: 07/06/14 Patient : No service: No Current occupational status: unemployed and disabled Sexual orientation: Straight/Heterosexual Meds Allergies Allergy/AdvReac Type Severity Reaction Status Date / Time aspirin [ASA] Allergy Intermediate RASH Verified 09/24/21 15:17 azathioprine [From IMURAN] Allergy Intermediate PANCREATIC Verified 09/13/21 13:58 INFLAMMATION ibuprofen [IBUPROFEN] Allergy Intermediate TOLD NOT Verified 09/13/21 13:58 TO TAKE levofloxacin [From LEVAQUIN] Allergy Mild YEAST Verified 09/13/21 13:58 INFECTIONS Home Medications Medication Instructions Recorded Confirmed Last Taken Type clonazepam 1 mg tablet 1 tab PO BEDTIME PRN 03/22/21 09/24/21 09/07/21 History docusate sodium 100 mg capsule 1 cap PO BID PRN 03/22/21 09/24/21 09/07/21 History ergocalciferol (vitamin D2) 1,250 1 cap PO WE 03/22/21 09/24/21 09/07/21 History mcg (50,000 unit) capsule montelukast 10 mg tablet 1 tab PO BEDTIME 03/22/21 09/24/21 09/07/21 History multivitamin 1 tab PO QAM 03/22/21 09/24/21 09/07/21 History topiramate 100 mg tablet 1 tab PO BID 03/22/21 09/24/21 09/07/21 History vitamin B complex-folic acid 0.4 1 tab PO QAM 03/22/21 09/24/21 09/07/21 History mg tablet (B Complex 1 (with folic acid)) albuterol sulfate 1 amp INHALATION Q6H PRN 06/13/21 09/24/21 09/07/21 History albuterol sulfate 90 mcg/actuation 2 puff PO QID PRN 06/13/21 09/24/21 09/07/21 History aerosol inhaler (ProAir HFA) apixaban 5 mg tablet (Eliquis) 5 mg PO BID 06/13/21 09/24/21 09/07/21 History esomeprazole magnesium 20 mg 1 cap PO QAM PRN 06/13/21 09/24/21 09/07/21 History capsule,delayed release buspirone 5 mg tablet 1 tab PO DAILY 06/25/21 09/24/21 09/07/21 History calcium carbonate 600 mg-vitamin 1 tab PO BID 06/25/21 09/24/21 09/07/21 History D3 10 mcg (400 unit) tablet hydroxyzine HCl 25 mg tablet 1 - 2 tab PO TID PRN 06/25/21 09/24/21 09/07/21 History lidocaine 4 % topical patch 1 patch TOPICAL DAILY PRN 06/25/21 09/24/21 09/07/21 History budesonide-formoterol HFA 160 2 puff PO DAILY 09/08/21 09/24/21 09/07/21 History mcg-4.5 mcg/actuation aerosol inhaler (Symbicort) Exam Exam Date and Time: September 27, 2021 1312 Pertinent Lab Results Pertinent Lab Results: Laboratory Tests 09/09/21 09/09/21 06:11 06:11 WBC 8.5 Hgb 11.0 L Hct 35.0 L Plt Count 239 Sodium 140 Potassium 4.3 Chloride 113 H Carbon Dioxide 19 L BUN 10 Creatinine 0.73 Narrative Narrative: EKG 08/2021 Vent. Rate : 059 BPM ? ? Atrial Rate : 059 BPM ?? P-R Int : 160 ms? QRS Dur : 086 ms ? ? QT Int : 434 ms ? ? ? P-R-T Axes : 045 009 012 degrees ?? QTc Int : 429 ms ? Sinus bradycardia Otherwise normal ECG When compared with ECG of 13-APR-2021 20:30, No significant change was found Assessment and Plan Assessment Anesthesia Assessment: Chart Reviewed Final Anesthetic Review Family History of Problems with Anesthesia: No History of Problems with Anesthesia: No Documented by User: Renetta Hennessy MD 09/28/21 11:43 [facility] Past Medical History Medical History Anxiety Asthma Cancer Crohn's colitis Crohn's disease Depression Depression GERD (gastroesophageal reflux disease) Hemorrhagic cyst of ovary HTN (hypertension) Hyperlipidemia Iron deficiency anemia Kidney stones Migraine Normocytic anemia PTSD (post-traumatic stress disorder) Pulmonary emboli Pulmonary embolism Recurrent major depression-severe Rheumatoid arthritis Sleep apnea Functional capacity: independent ambulation Patient : No Surgical History Surgical History History of colon resection Hx of colonoscopy (~10/2018) Hx of cystoscopy Hx of cystoscopy Hx of dilation and curettage Hx of endoscopy Social History Social History Household Members: None Housing: Apartment Do you presently have visiting nurse or other home services: No Alcohol intake: never Patient Tobacco Use Status: Never used Tobacco Tobacco use type: Cigarette Years Smoked: 10 Second Hand Smoke Exposure: No Use of substances other than those prescribed or required for medical reasons: Yes Substance Use Type: Marijuana Substance Use Frequency: Daily Are you DNR?: No Advance Directives: Yes Advance Directives on File: Yes Advance Directives Date on File: 07/06/14 Patient : No service: No Current occupational status: unemployed and disabled Sexual orientation: Straight/Heterosexual Meds Allergies Allergy/AdvReac Type Severity Reaction Status Date / Time aspirin [ASA] Allergy Intermediate RASH Verified 09/24/21 15:17 azathioprine [From IMURAN] Allergy Intermediate PANCREATIC Verified 09/13/21 13:58 INFLAMMATION ibuprofen [IBUPROFEN] Allergy Intermediate TOLD NOT Verified 09/13/21 13:58 TO TAKE levofloxacin [From LEVAQUIN] Allergy Mild YEAST Verified 09/13/21 13:58 INFECTIONS Home Medications Medication Instructions Recorded Confirmed Last Taken Type clonazepam 1 mg tablet 1 tab PO BEDTIME PRN 03/22/21 09/24/21 09/07/21 History docusate sodium 100 mg capsule 1 cap PO BID PRN 03/22/21 09/24/21 09/07/21 History ergocalciferol (vitamin D2) 1,250 1 cap PO WE 03/22/21 09/24/21 09/07/21 History mcg (50,000 unit) capsule montelukast 10 mg tablet 1 tab PO BEDTIME 03/22/21 09/24/21 09/07/21 History multivitamin 1 tab PO QAM 03/22/21 09/24/21 09/07/21 History topiramate 100 mg tablet 1 tab PO BID 03/22/21 09/24/21 09/07/21 History vitamin B complex-folic acid 0.4 1 tab PO QAM 03/22/21 09/24/21 09/07/21 History mg tablet (B Complex 1 (with folic acid)) albuterol sulfate 1 amp INHALATION Q6H PRN 06/13/21 09/24/21 09/07/21 History albuterol sulfate 90 mcg/actuation 2 puff PO QID PRN 06/13/21 09/24/21 09/07/21 History aerosol inhaler (ProAir HFA) apixaban 5 mg tablet (Eliquis) 5 mg PO BID 06/13/21 09/24/21 09/07/21 History esomeprazole magnesium 20 mg 1 cap PO QAM PRN 06/13/21 09/24/21 09/07/21 History capsule,delayed release buspirone 5 mg tablet 1 tab PO DAILY 06/25/21 09/24/21 09/07/21 History calcium carbonate 600 mg-vitamin 1 tab PO BID 06/25/21 09/24/21 09/07/21 History D3 10 mcg (400 unit) tablet hydroxyzine HCl 25 mg tablet 1 - 2 tab PO TID PRN 06/25/21 09/24/21 09/07/21 History lidocaine 4 % topical patch 1 patch TOPICAL DAILY PRN 06/25/21 09/24/21 09/07/21 History budesonide-formoterol HFA 160 2 puff PO DAILY 09/08/21 09/24/21 09/07/21 History mcg-4.5 mcg/actuation aerosol inhaler (Symbicort) Exam Airway Mallampati Class: III TM Dist: >3cm Neck ROM: Full Heart: RRR Lungs: CTA Assessment and Plan Final Anesthetic Review ASA Class: III Final Preanesthetic Review: No Changes in Pt Med Stat, Meds/Allgs Chart Reviewed, Consent Obtained/Reviewed and Anes Risks/Benef Reviewed Patient Risk: Low Procedure Risk: Low Anesthetic Plan Anesthetic Plan: MAC: Disposition: Standard PACU
[2021-09-28 11:18] VITALS: BP 126/76; PULSE 77; RESP 18; TEMP 36.7; O2SAT 97; BMI 35.7
--- NOTE | 2021-09-28 11:56 | MHC.SHP ---
Pre-Procedural Eval Section A Date of Service: 09/28/21 The patient is an INPATIENT: No Changes since office visit: Yes Patient answered all questions; No Cold of Flu in the past 2 weeks, No New Medical Problems and No Changes in Medication The History & Physical has been completed within 30 days and I have reviewed it.: Yes Section B Chief Complaint: Crohn's colitis Allergies: Allergies Allergy/AdvReac Type Severity Reaction Status Date / Time aspirin [ASA] Allergy Intermediate RASH Verified 09/24/21 15:17 azathioprine [From IMURAN] Allergy Intermediate PANCREATIC Verified 09/13/21 13:58 INFLAMMATION ibuprofen [IBUPROFEN] Allergy Intermediate TOLD NOT Verified 09/13/21 13:58 TO TAKE levofloxacin [From LEVAQUIN] Allergy Mild YEAST Verified 09/13/21 13:58 INFECTIONS Plan I have reviewed the history and physical and performed a pertinent physical examination on my patient. No changes have occurred unless specified.
--- NOTE | 2021-09-28 11:57 | P.OP_ITS ---
Operative Note Operative Note Date of Service: 09/28/21 Narrative: Pre-op diagnosis: Dysphagia, odynophagia Post-op diagnosis:?other (Esophagitis, gastritis) Procedure: FLEXIBLE TRANSORAL UPPER GASTROINTESTINAL ENDOSCOPY WITH BIOPSIES Consent:?Indications for the procedure and potential complications of bleeding, perforation, reaction to medications and missed diagnosis were discussed with the patient and informed consent was obtained. Instrument:?Olympus GIF H 190 mid size upper endoscope Monitoring: Vital signs and clinical assessment, continuous EKG monitoring, Pulse oximetry, Carbon Dioxide monitoring and blood pressure monitoring were done throughout the procedure. Procedure:?The patient was placed in the left lateral decubitis position and pre-procedure medications were administered and a bite block was placed. The endoscope was inserted into the mouth and advanced under direct vision to the third part of duodenum. A careful inspection was made as the upper endoscope was withdrawn including a retroflexed examination of the proximal stomach; Findings and interventions are described below. Findings: Larynx:? Normal Esophagus: GE junction at 36 cms.? Focal esophagitis with a 1 cms ulcer at GEJ. No stricture or ring noted.? Scattered white exudates in the proximal and mid esophagus suggestive of esophageal candidiasis - biopsies obtained to check for Karo/EOE. Stomach: Mild gastric erythema. Biopsies were obtained. Grade 2 flap valve on retroflexed examination of the cardia. Duodenum: Normal bulb and descending duodenum Intervention: Biopsies as noted above Impression and Post Procedure Diagnosis: Endoscopy Findings: ESOPHAGUS: GE junction at 36 cms.? Focal esophagitis with a 1 cms ulcer at GEJ. No stricture or ring noted.? Scattered white exudates in the proximal and mid esophagus suggestive of esophageal candidiasis - biopsies obtained to check for Karo/EOE. STOMACH: Gastritis - biopsied to check for H Pylori Plan: Start Fluconazole for esophageal candidiasis - likely source of dysphagia and odynophagia. Await pathology results. Resume Gee ryder. Patient has an appointment on 10/26/21 in the GI Clinic with Libby Palafox M.D.. Above findings were reviewed with the patient and GERD handout was given in the discharge area Surgeon: Libby Palafox MD Anesthesia:?MAC (Dr Hall) Was an Upholstery Technician used for this Procedure?:?Yes Upholstery Technician:?Yahaira Pineda Estimated blood loss (mL):?0 Pathology:?other (A.? Gastric antrum, B. Proximal esophagus ) Condition:?stable Disposition:?PACU
[2021-09-28 12:26] VITALS: BP 103/57; PULSE 66; RESP 16; TEMP 36.6; O2SAT 94
[2021-09-28] MEDS: ondansetron HCL 4 MG/2 ML VIAL IVPUSH (12:29)
[2021-09-28 12:40] VITALS: BP 95/59; PULSE 61; RESP 16; O2SAT 96
[2021-09-28 12:55] VITALS: BP 104/60; PULSE 79; RESP 16; O2SAT 98
[2021-09-28 13:28] VITALS: BP 120/73; PULSE 61; RESP 16; O2SAT 98
== END 2021-09-28 13:53 | disposition home or self-care (01) ==
PROVIDERS: PCP Internal Medicine; Visit Provider Internal Medicine Gastroenterology
PROC: 0DJ08ZZ Inspection of Upper Intestinal Tract, Via Natural or Artificial Opening Endoscopic (ICD-10-PCS; CPT 43235; principal; 2021-09-28 12:30)
DX: R13.10 Dysphagia, unspecified (principal); D50.9 Iron deficiency anemia, unspecified; K20.80 Other esophagitis without bleeding; K29.50 Unspecified chronic gastritis without bleeding; K21.9 Gastro-esophageal reflux disease without esophagitis; K50.10 Crohn's disease of large intestine without complications; J45.909 Unspecified asthma, uncomplicated; I10 Essential (primary) hypertension; G47.30 Sleep apnea, unspecified; M06.9 Rheumatoid arthritis, unspecified; F32.9 Major depressive disorder, single episode, unspecified; Z86.711 Personal history of pulmonary embolism; Z79.01 Long term (current) use of anticoagulants; Z88.8 Allergy status to other drugs, medicaments and biological substances; Z88.1 Allergy status to other antibiotic agents; Z79.899 Other long term (current) drug therapy
CPT/HCPCS: 43239; 88305; 88312; 88342; J2250; J2405

== ENCOUNTER 2021-10-29 13:05 | Outpatient (REF) | payer MEDICAID, SELFPAY | END 2021-10-29 13:06 | disposition home or self-care (01) | LOC: HO.MDS 13:05 | PROVIDERS: PCP Internal Medicine; Visit Provider Internal Medicine Gastroenterology | DX: K50.10 Crohn's disease of large intestine without complications (principal) | CPT/HCPCS: 96372; J3357 ==

== ENCOUNTER 2021-11-14 14:19 | Emergency (ER) | payer MEDICAID, SELFPAY ==
--- NOTE | ~2021-11-14 | CT_ITS ---
EXAMINATION: CT HEAD WITHOUT CONTRAST CLINICAL INFORMATION: Headache, on anticoagulants. COMPARISON: CT head dated from 03/24/2021. TECHNIQUE: Contiguous axial imaging was performed from the skull base to vertex without intravenous administration of contrast. This CT examination was performed using dose optimization techniques as appropriate, variously including the following: *Automated exposure control *Adjustment of mA and/or kV according to patient size (this includes techniques or standardized protocols for targeted exams where dose is matched to indication/reason for exam; i.e. extremities or head) *Use of iterative reconstruction technique DLP: 670 mGy-cm FINDINGS: There is no evidence of acute intracranial hemorrhage or edematous territorial infarction. There is no abnormal attenuation within the brain parenchyma. [place]-white matter differentiation is preserved. The ventricles are normal in size and configuration. No evidence for obstructive hydrocephalus. No abnormal mass effect or midline shift. No extra-axial fluid collections. No acute soft tissue or osseous abnormalities. Redemonstration of mucosal thickening of an atrophic right sphenoidal sinus. Other paranasal sinuses, mastoids and middle ear cavities are clear. CT/CT head/brain wo con IMPRESSION: No evidence of acute intracranial hemorrhage or edematous territorial infarction.
--- NOTE | ~2021-11-14 | XR_ITS ---
EXAMINATION: XR CHEST CLINICAL INFORMATION: Chest pain COMPARISON: Previous chest x-ray August 2021 TECHNIQUE: Frontal view of the chest was obtained. FINDINGS: No significant abnormality is noted involving the heart, lungs, mediastinum, bony thorax or soft tissues. XR/XR chest 1V IMPRESSION: Unremarkable examination.
[2021-11-14 14:34] VITALS: BP 138/80; PULSE 76; RESP 18; TEMP 36.1; O2SAT 98; BMI 35.2
--- NOTE | 2021-11-14 14:39 | ECG_ITS ---
Test Reason : CHEST PAIN Blood Pressure : / mmHG Vent. Rate : 072 BPM Atrial Rate : 072 BPM P-R Int : 156 ms QRS Dur : 076 ms QT Int : 410 ms P-R-T Axes : 002 002 011 degrees QTc Int : 448 ms Normal sinus rhythm Normal ECG When compared with ECG of 08-SEP-2021 09:28, No significant change was found Referred By: Generic ED Physician Electronically Signed By:ZHANE SUTTON MD
[2021-11-14 15:06] LABS: MANUAL DIFF FLAG NO
[2021-11-14 15:10] LABS: Basophils Absolute Auto 0.1 X10*3/uL (0.0-0.2); Basophils Percent Auto 0.7 % (0-2); Eosinophils Absolute Auto 0.2 X10*3/uL (0.0-0.4); Eosinophils Percent Auto 2.3 % (0-4); Hematocrit 36.6 % (37.0-47.0); Hemoglobin 11.2 g/dl (12.0-16.0); Imm Gran Abs Auto 0.02 X10*3/uL (0.00-0.03); Imm Gran Pct Auto 0.3 % (0.0-0.4); Lymphocytes Absolute Auto 2.3 X10*3/uL (1.2-4.9); Lymphocytes Percent Auto 31.1 % (20-40); Mean Corpuscular HGB Conc 30.6 g/dl (31.0-35.0); Mean Corpuscular Hemoglobin 24.4 pg (27.0-33.0); Mean Corpuscular Volume 79.7 fL (80.0-98.0); Mean Platelet Volume 12.3 fL (9.4-12.3); Monocytes Absolute Auto 0.6 X10*3/uL (0.1-1.2); Monocytes Percent Auto 8.5 % (2-11); Neutrophils Absolute Auto 4.2 x10*3/uL (2.0-8.3); Neutrophils Percent Auto 57.1 % (45-73); Platelet Count 235 X10*3/uL (160-400); Red Blood Count 4.59 X10*6/uL (4.20-5.50); Red Cell Distribution Width 17.9 % (11.0-16.0); White Blood Count 7.3 X10*3/uL (4.8-10.8)
[2021-11-14 15:26] LABS: Anion Gap 14 (12-20); Blood Urea Nitrogen 16 mg/dL (9-16); Calcium 9.6 mg/dL (8.4-10.2); Carbon Dioxide 20 mmol/L (22-29); Chloride 109 mmol/L (96-108); Creatinine Clr Calc Pharmacy 91.8; Estimated Glomerular Filt Rate > 60; Glucose Random 86 mg/dL (60-115); Potassium 3.9 mmol/L (3.3-5.1); Sodium 139 mmol/L (135-145)
[2021-11-14 15:32] LABS: Troponin-I High Sensitivity < 3.5 ng/L (<3.5-17.0)
--- NOTE | 2021-11-14 17:43 | ED_ITS ---
HPI - Chest Pain General Chief Complaint: Chest Pain Stated Complaint: heart palpitations/chest pains/headaches Time Seen by Provider: 11/14/21 17:16 Source: patient and old records reviewed Mode of arrival: ambulatory Limitations: no limitations History of Present Illness HPI narrative: was on amlodipine 10mg in past and has done well MD complaint: chest pain (HTN, headaches has not had her amlodipine in 3 months due to PCP issue) Onset (ago): day(s) (3) Timing of current episode: constant Prior episodes: Yes Onset: during rest and during exertion Pain location: substernal Pain radiation: none Severity: mild Quality: tightness Relieving factors: nothing Exacerbating factors: other (when her BP is high) Context: other (off her amlodipine for 3 months) Associated symptoms: other (posterior head pain, feels dyspneic sometimes) Treatment prior to arrival: none Related Data Home Medications Medication Instructions Recorded Confirmed clonazepam 1 mg tablet 1 tab PO BEDTIME PRN 03/22/21 09/24/21 docusate sodium 100 mg capsule 1 cap PO BID PRN 03/22/21 09/24/21 ergocalciferol (vitamin D2) 1,250 1 cap PO WE 03/22/21 09/24/21 mcg (50,000 unit) capsule montelukast 10 mg tablet 1 tab PO BEDTIME 03/22/21 09/24/21 multivitamin 1 tab PO QAM 03/22/21 09/24/21 topiramate 100 mg tablet 1 tab PO BID 03/22/21 09/24/21 albuterol sulfate 1 amp INHALATION Q6H PRN 06/13/21 09/24/21 albuterol sulfate 90 mcg/actuation 2 puff PO QID PRN 06/13/21 09/24/21 aerosol inhaler (ProAir HFA) apixaban 5 mg tablet (Eliquis) 5 mg PO BID 06/13/21 09/24/21 esomeprazole magnesium 20 mg 1 cap PO QAM PRN 06/13/21 09/24/21 capsule,delayed release buspirone 5 mg tablet 1 tab PO DAILY 06/25/21 09/24/21 calcium carbonate 600 mg-vitamin 1 tab PO BID 06/25/21 09/24/21 D3 10 mcg (400 unit) tablet hydroxyzine HCl 25 mg tablet 1 - 2 tab PO TID PRN 06/25/21 09/24/21 lidocaine 4 % topical patch 1 patch TOPICAL DAILY PRN 06/25/21 09/24/21 budesonide-formoterol HFA 160 2 puff PO DAILY 09/08/21 09/24/21 mcg-4.5 mcg/actuation aerosol inhaler (Symbicort) Previous Rx's Medication Instructions Recorded paroxetine HCl 20 mg tablet 20 mg PO DAILY #30 tab 04/04/21 risperidone 1 mg tablet 1 mg PO BID #60 tab 04/04/21 acetaminophen 325 mg tablet 325 mg PO QID PRN #14 tab 07/18/21 (Tylenol) ustekinumab 90 mg/mL subcutaneous 90 mg SUBCUT Q4W 28 Days #1 ml 08/17/21 syringe (Stelara) oxycodone 5 mg capsule 5 mg PO Q8H PRN #10 cap 09/14/21 prednisone 10 mg tablet See Taper PO DAILY #50 tab 09/14/21 fluconazole 200 mg tablet 200 mg PO DAILY 11 Days #11 tab 09/28/21 vitamin B complex-folic acid 0.4 1 tab PO QAM #30 tab 11/09/21 mg tablet (B Complex 1 (with folic acid)) amlodipine 2.5 mg tablet 2.5 mg PO DAILY #30 tab 11/14/21 Allergies Allergy/AdvReac Type Severity Reaction Status Date / Time aspirin [ASA] Allergy Intermediate RASH Verified 09/24/21 15:17 azathioprine [From IMURAN] Allergy Intermediate PANCREATIC Verified 09/13/21 13:58 INFLAMMATION ibuprofen [IBUPROFEN] Allergy Intermediate TOLD NOT Verified 09/13/21 13:58 TO TAKE levofloxacin [From LEVAQUIN] Allergy Mild YEAST Verified 09/13/21 13:58 INFECTIONS Review of Systems Review of Systems: Constitutional : No Weight loss, No Fever, No Chills ENT/Mouth : No sore throat, No Rhinorrhea Eyes: No Eye Pain, No Swelling Cardiovascular : pos Chest Pain, pos SOB, no Dyspnea on Exertion, No Orthopnea, No Edema, No Palpitations Respiratory : No Cough, No Sputum Gastrointestinal : no Nausea, No Vomiting, No Diarrhea, No abdominal Pain, No Hematochezia, No Melena Genitourinary : No Dysuria, No Urinary Frequency Musculoskeletal : No joint pain, No Myalgias, No Joint Swelling Skin : No Skin Lesions, No rash Neuro : No Weakness, No Numbness, No Dizziness, pos Headache Psych : No Anxiety/Panic, No Depression Heme/Lymph: No Bruising, No Lymphadenopathy Endocrine : No Polyuria, No Polydipsia All other systems reviewed and are negative [facility] Past Medical History Attestation statement: The following information was validated with the patient. Medical History Anxiety Asthma Cancer Crohn's colitis Crohn's disease Depression Depression GERD (gastroesophageal reflux disease) Hemorrhagic cyst of ovary HTN (hypertension) Hyperlipidemia Iron deficiency anemia Kidney stones Migraine Normocytic anemia PTSD (post-traumatic stress disorder) Pulmonary emboli Pulmonary embolism Recurrent major depression-severe Rheumatoid arthritis Sleep apnea Surgical History History of colon resection Hx of colonoscopy (~10/2018) Hx of cystoscopy Hx of cystoscopy Hx of dilation and curettage Hx of endoscopy Social History Social History Household Members: None Housing: Apartment Do you presently have visiting nurse or other home services: No Alcohol intake: never Patient Tobacco Use Status: Never used Tobacco Tobacco use type: Cigarette Years Smoked: 10 Second Hand Smoke Exposure: No Substance Use Type: Marijuana Advance Directives: Yes Advance Directives on File: Yes Advance Directives Date on File: 07/06/14 service: No Current occupational status: unemployed and disabled Sexual orientation: Straight/Heterosexual Physical Exam Vital Signs: Vital Signs: Last Vital Signs Temp 97 F 11/14/21 14:34 Pulse 76 11/14/21 14:34 Resp 18 11/14/21 14:34 BP 138/80 11/14/21 14:34 Pulse Ox 98 11/14/21 14:34 BMI result Body Mass Index 35.2 Appearance: Alert. Oriented X3. No acute distress. Eyes: Pupils equal, round and reactive to light. ENT: Pharynx normal. Neck: Normal inspection. Neck supple. CVS: Normal heart rate and rhythm. Pulses normal. Respiratory: No respiratory distress. Breath sounds normal. Abdomen: Soft and non-tender. Skin: Skin warm and dry. Normal skin color. Normal skin turgor. Extremities: No lower extremity edema. No calf ttp Neuro: Oriented X 3. No motor deficit. No sensory deficit. Course Course Course Narrative: no acute findings stable for DC will start on low dose amlodipine 2.5mg given BP not very high here MDM - Chest Pain MDM Narrative Medical decision making narrative: 51 yo female hx of PE on eliquis, UTI, HTN, crohn's comes in with 3 days of elevated BP readings at home DPB ranging 90 to 100, off her amlodipine for 3 months due to PCP issue was on 10mg in the past. She also feels her chest is tight. At this time ekg, CXR, troponin x 1, doubt PE given eliquis compliance. CT head for ICH though low suspicion. PO pain medications start on amlodipine 2.5mg at home follow up with PCP Lab Data Result diagrams: 11/14/21 15:01 11/14/21 15:01 Labs: Lab Results 11/14/21 11/14/21 11/14/21 Range/Units 15:01 15:01 15:01 WBC 7.3 (4.8-10.8) X10*3/uL RBC 4.59 (4.20-5.50) X10*6/uL Hgb 11.2 L (12.0-16.0) g/dl Hct 36.6 L (37.0-47.0) % MCV 79.7 L (80.0-98.0) fL MCH 24.4 L (27.0-33.0) pg MCHC 30.6 L (31.0-35.0) g/dl RDW 17.9 H (11.0-16.0) % Plt Count 235 (160-400) X10*3/uL MPV 12.3 (9.4-12.3) fL Immature Gran % (Auto) 0.3 (0.0-0.4) % Neut % (Auto) 57.1 (45-73) % Lymph % (Auto) 31.1 (20-40) % [place] % (Auto) 8.5 (2-11) % Eos % (Auto) 2.3 (0-4) % Baso % (Auto) 0.7 (0-2) % Lymph # (Auto) 2.3 (1.2-4.9) X10*3/uL [place] # (Auto) 0.6 (0.1-1.2) X10*3/uL Eos # (Auto) 0.2 (0.0-0.4) X10*3/uL Baso # (Auto) 0.1 (0.0-0.2) X10*3/uL Abs Immat Gran (auto) 0.02 (0.00-0.03) X10*3/uL Absolute Neuts (auto) 4.2 (2.0-8.3) x10*3/uL Absolute Nucleated RBC 0.000 (0.0-0.012) X10*3/uL Nucleated RBC % (auto) 0.0 (0.0-0.2) /100WBC Sodium 139 (135-145) mmol/L Potassium 3.9 (3.3-5.1) mmol/L Chloride 109 H (96-108) mmol/L Carbon Dioxide 20 L (22-29) mmol/L Anion Gap 14 (12-20) BUN 16 D (9-16) mg/dL Creatinine 0.83 (0.5-1.4) mg/dL Estim Creat Clear Calc 91.8 Estimated GFR > 60 Random Glucose 86 (60-115) mg/dL Calcium 9.6 D (8.4-10.2) mg/dL Troponin I High Sens < 3.5 (<3.5-17.0) ng/L ECG Data ECG #1: Attestation: I personally reviewed and interpreted this ECG as follows: ECG interpretation date: 11/14/21 ECG interpretation time: 17:45 Interpretation: Rate: 72 Rhythm: NSR [place]: normal Normal P waves. Normal LUIS EDUARDO. Normal QRS complex. ST T wave : normal no JOSE qTC: normal prior studies: no acute ischemia The study has been interpreted contemporaneously by me. . Discharge Plan Discharge Clinical Impression: Atypical chest pain HTN (hypertension) Qualifiers: Hypertension type: unspecified Qualified Code(s): I10 - Essential (primary) hypertension Patient Disposition: Home, Self-Care Instructions: Chest Pain (ED), Hypertension (ED) Additional Instructions: return to ED for any worsening symptoms or concerns Prescriptions: New amlodipine 2.5 mg tablet 2.5 mg PO DAILY Qty: 30 0RF No Action Stelara 90 mg/mL syringe 90 mg subcut Q4W 28 Days Qty: 1 3RF fluconazole 200 mg tablet 200 mg PO DAILY 11 Days Qty: 11 0RF Rx Instructions: Take 2 tablets on Day 1, then 1 tablet daily x 9 days vitamin B complex-folic acid [B Complex 1 (with folic acid)] 0.4 mg tablet 1 tab PO QAM Qty: 30 2RF multivitamin Tablet 1 tab PO QAM 0RF clonazepam 1 mg tablet 1 tab PO BEDTIME PRN (Reason: Sleep) 0RF docusate sodium 100 mg capsule 1 cap PO BID PRN (Reason: Constipation) 0RF montelukast 10 mg tablet 1 tab PO BEDTIME 0RF ergocalciferol (vitamin D2) 1,250 mcg (50,000 unit) capsule 1 cap PO WE 0RF topiramate 100 mg tablet 1 tab PO BID 0RF paroxetine HCl 20 mg Tablet 20 mg PO DAILY Qty: 30 0RF risperidone 1 mg Tablet 1 mg PO BID Qty: 60 0RF albuterol sulfate 2.5 mg /3 mL (0.083 %) solution for nebulization 1 amp inhalation Q6H PRN (Reason: Wheezing) 0RF Eliquis 5 mg tablet 5 mg PO BID 0RF Rx Instructions: Take 10 mg Eliquis twice daily for 1 week, then take Eliquis 5 mg twice daily for next 3-4 months as per Hematology albuterol sulfate [ProAir HFA] 90 mcg/actuation HFA aerosol inhaler 2 puff PO QID PRN (Reason: Dyspnea) 0RF esomeprazole magnesium 20 mg capsule,delayed release(DR/EC) 1 cap PO QAM PRN (Reason: Acid Reflux) 0RF hydroxyzine HCl 25 mg tablet 1 - 2 tab PO TID PRN (Reason: Anxiety) 0RF calcium carbonate-vitamin D3 600 mg(1,500mg) -400 unit tablet 1 tab PO BID 0RF buspirone 5 mg tablet 1 tab PO DAILY 0RF lidocaine 4 % Adhesive Patch,Medicated 1 patch TOPICAL DAILY PRN (Reason: Breakthrough Pain) 0RF acetaminophen [Tylenol] 325 mg tablet 325 mg PO QID PRN (Reason: pain) Qty: 14 0RF budesonide-formoterol [Symbicort] 160-4.5 mcg/actuation HFA aerosol inhaler 2 puff PO DAILY 0RF prednisone 10 mg tablet See Taper mg PO DAILY Qty: 50 0RF Taper: Prednisone 40 mg daily for 5 Days and 0 Hour 30 mg daily for 5 Days and 0 Hour 20 mg daily for 5 Days and 0 Hour 10 mg daily for 5 Days and 0 Hour oxycodone 5 mg capsule 5 mg PO Q8H PRN (Reason: pain (scale score 7-10)) Qty: 10 0RF Referrals: Physician,Unknown J [Primary Care Provider] - 2 days (PCP) Stand Alone Forms: Work/School Release Print Language: Maori
[2021-11-14] MEDS: Ondansetron ODT 4 MG TAB.RAPDIS TRANSLINGU (18:22)
[2021-11-14] MEDS: oxyCODONE HCl Immed Release 5 MG TABLET PO (18:22)
== END 2021-11-14 19:55 | disposition home or self-care (01) ==
PROVIDERS: Emergency Provider Emergency Medicine; PCP Internal Medicine
DX: R07.89 Other chest pain (principal); R00.2 Palpitations; R51.9 Headache, unspecified; I10 Essential (primary) hypertension; F17.210 Nicotine dependence, cigarettes, uncomplicated; Z71.6 Tobacco abuse counseling; Z79.899 Other long term (current) drug therapy
CPT/HCPCS: 36415; 70450; 71045; 80048; 84484; 85025; 93005; 99284

== ENCOUNTER 2021-11-26 13:33 | Outpatient (REF) | payer MEDICAID, SELFPAY | END 2021-11-26 13:34 | disposition home or self-care (01) | LOC: HO.MDS 13:33 | PROVIDERS: PCP Internal Medicine; Visit Provider Internal Medicine Gastroenterology | DX: K50.10 Crohn's disease of large intestine without complications (principal) | CPT/HCPCS: J3357 ==

== ENCOUNTER 2021-11-29 10:28 | Outpatient (REF) | payer MEDICAID, SELFPAY ==
--- NOTE | ~2021-11-29 | CT_ITS ---
EXAMINATION: CT ANGIOGRAM OF THE CHEST WITH AND WITHOUT CONTRAST (CT PULMONARY ANGIOGRAM FOR PE) CLINICAL INFORMATION: Reason for Exam persistant chest pain, h/o PE COMPARISON: Previous chest CTA March 2021 and chest x-ray October 2021 TECHNIQUE: Prior to contrast administration, noncontrast localization images were obtained. Subsequently, multidetector volumetric imaging was performed from the thoracic inlet to below the diaphragms following the administration of 65 mL Omnipaque 350 intravenous contrast. No contrast reaction reported Sagittal, coronal, and MIP oblique sagittal reformatted images were obtained on the CT workstation, uploaded to PACS, and reviewed. This CT examination was performed using dose optimization techniques as appropriate, variously including the following: *Automated exposure control *Adjustment of mA and/or kV according to patient size (this includes techniques or standardized protocols for targeted exams where dose is matched to indication/reason for exam; i.e. extremities or head) *Use of iterative reconstruction technique Total exam dose-length product 464 mGy-cm FINDINGS: QUALITY OF STUDY/CONTRAST BOLUS: Satisfactory. PULMONARY ARTERIES: No central or segmental pulmonary emboli. THORACIC AORTA: No aneurysm or dissection. LUNG: No focal consolidation, nodules or masses. PLEURA: No pleural effusion or pneumothorax. MEDIASTINUM: Normal heart size. No pericardial effusion. No hilar or mediastinal lymphadenopathy. No evidence of septal bowing or right heart strain. CHEST WALL/AXILLA: No axillary or internal mammary lymphadenopathy. OSSEOUS STRUCTURES: No acute or suspicious osseous abnormality. There are degenerative changes of the spine. UPPER ABDOMEN: Unremarkable. No reflux of contrast into the hepatic veins to suggest elevated right heart pressures. CT/CT angio chest PE protocol IMPRESSION: No evidence of pulmonary embolism. VTE: negative
--- NOTE | ~2021-11-29 | XR_ITS ---
EXAMINATION: XR SHOULDER, LEFT CLINICAL INFORMATION: Pain COMPARISON: None TECHNIQUE: AP external rotation, Grashey, scapular Y, and axillary views of the left shoulder. FINDINGS: Moderate degeneration at the AC joint. There is acromial spurring. Sclerotic change at the insertion of the superior rotator cuff. There is no evidence for an acute fracture or dislocation. XR/XR shoulder LT min 2V IMPRESSION: Degenerative changes. Findings which may well preclude to impingement.
[2021-11-29] MEDS: iohexoL 350 MG/ML 100 ML INFUS..BTL IV (11:18)
== END 2021-11-29 10:29 | disposition home or self-care (01) ==
LOC: HO.CT 10:28
PROVIDERS: Visit Provider Internal Medicine
DX: M25.512 Pain in left shoulder (principal); I26.99 Other pulmonary embolism without acute cor pulmonale
CPT/HCPCS: 71275; 73030; Q9967

== ENCOUNTER 2021-12-24 11:22 | Outpatient (REF) | payer MEDICAID, SELFPAY | END 2021-12-24 11:23 | disposition home or self-care (01) | LOC: HO.MDS 11:22 | PROVIDERS: PCP Internal Medicine; Visit Provider Internal Medicine Gastroenterology | DX: K50.10 Crohn's disease of large intestine without complications (principal) | CPT/HCPCS: J3357 ==

== ENCOUNTER 2022-01-03 09:36 | Outpatient (REF) | payer MEDICAID, SELFPAY | END 2022-01-03 09:37 | disposition home or self-care (01) | LOC: HO.MDS 09:36 | PROVIDERS: PCP Internal Medicine; Visit Provider Internal Medicine Gastroenterology | DX: Z53.8 Procedure and treatment not carried out for other reasons (principal) | CPT/HCPCS: 96372; J3357 ==

== ENCOUNTER 2022-01-14 13:00 | Outpatient (RCR) | payer MEDICAID, SELFPAY | END 2022-02-12 10:02 | disposition home or self-care (01) | LOC: HO.PT 13:00 | PROVIDERS: PCP Internal Medicine; Visit Provider Internal Medicine Rheumatology | DX: M75.32 Calcific tendinitis of left shoulder (principal) | CPT/HCPCS: 97110; 97140; 97162; 97535 ==

== ENCOUNTER → 2022-01-28 13:07 | Outpatient (BNVA) | payer MEDICAID, SELFPAY | PROVIDERS: PCP Internal Medicine | DX: N39.41 Urge incontinence (principal) | CPT/HCPCS: 51798; 99202 ==

== ENCOUNTER 2022-01-31 09:38 | Outpatient (REF) | payer MEDICAID, SELFPAY | END 2022-01-31 09:39 | disposition home or self-care (01) | LOC: HO.MDS 09:38 | PROVIDERS: PCP Internal Medicine; Visit Provider Internal Medicine Gastroenterology | DX: K50.10 Crohn's disease of large intestine without complications (principal) | CPT/HCPCS: 96372; J3357 ==

== ENCOUNTER → 2022-02-21 11:10 | Outpatient (BNVA) | payer MEDICAID, SELFPAY | PROVIDERS: PCP Internal Medicine; Visit Provider Internal Medicine Gastroenterology | DX: K50.10 Crohn's disease of large intestine without complications (principal); K56.699 Other intestinal obstruction unspecified as to partial versus complete obstruction; E55.9 Vitamin D deficiency, unspecified; Z98.890 Other specified postprocedural states | CPT/HCPCS: 99212 ==

== ENCOUNTER 2022-02-28 09:27 | Outpatient (REF) | payer MEDICAID, SELFPAY | END 2022-02-28 09:28 | disposition home or self-care (01) | LOC: HO.MDS 09:27 | PROVIDERS: Visit Provider Internal Medicine Gastroenterology | DX: K50.118 Crohn's disease of large intestine with other complication (principal) | CPT/HCPCS: 96372; J3357 ==

== ENCOUNTER 2022-03-28 11:10 | Outpatient (REF) | payer MEDICAID, SELFPAY ==
[2022-04-02 17:02] LABS: TS Negative Control Passed; TS Panel A 4; TS Panel B 4; TS Positive Control Passed; TSpotTB Negative (Negative)
== END 2022-03-28 11:11 | disposition home or self-care (01) ==
LOC: HO.MDS 11:10
PROVIDERS: Visit Provider Internal Medicine Gastroenterology
DX: K50.118 Crohn's disease of large intestine with other complication (principal)
CPT/HCPCS: 36415; 86481; 96372; J3357

== ENCOUNTER 2022-04-25 10:11 | Outpatient (REF) | payer MEDICAID, SELFPAY | END 2022-04-25 10:12 | disposition home or self-care (01) | LOC: HO.MDS 10:11 | PROVIDERS: Visit Provider Internal Medicine Gastroenterology | DX: K50.10 Crohn's disease of large intestine without complications (principal) | CPT/HCPCS: 96372; J3357 ==

== ENCOUNTER 2022-06-05 12:52 | Outpatient (REF) | payer MEDICAID, SELFPAY | END 2022-06-05 12:53 | disposition home or self-care (01) | LOC: HO.MDS 12:52 | PROVIDERS: Visit Provider Internal Medicine Gastroenterology | DX: K50.118 Crohn's disease of large intestine with other complication (principal); K94.19 Other complications of enterostomy | CPT/HCPCS: 96372; J3357 ==

== ENCOUNTER 2022-06-26 10:55 | Outpatient (REF) | payer MEDICAID, SELFPAY | END 2022-06-26 10:56 | disposition home or self-care (01) | LOC: HO.MDS 10:55 | PROVIDERS: Visit Provider Internal Medicine | DX: D50.9 Iron deficiency anemia, unspecified (principal) | CPT/HCPCS: 96365; J1756 ==

== ENCOUNTER 2022-07-03 12:03 | Outpatient (REF) | payer MEDICAID, SELFPAY | END 2022-07-03 12:04 | disposition home or self-care (01) | LOC: HO.MDS 12:03 | PROVIDERS: Absent Provider Internal Medicine; Visit Provider Internal Medicine Gastroenterology | DX: K50.118 Crohn's disease of large intestine with other complication (principal); Z93.2 Ileostomy status | CPT/HCPCS: 96365; 96372; J1756; J3357 ==

== ENCOUNTER 2022-07-11 12:53 | Outpatient (REF) | payer MEDICAID, SELFPAY | END 2022-07-11 12:54 | disposition home or self-care (01) | LOC: HO.MDS 12:53 | PROVIDERS: Visit Provider Internal Medicine | DX: D50.9 Iron deficiency anemia, unspecified (principal) | CPT/HCPCS: 96365 ==

== ENCOUNTER 2022-07-22 12:47 | Outpatient (REF) | payer MEDICAID, SELFPAY | END 2022-07-22 12:48 | disposition home or self-care (01) | LOC: HO.MDS 12:47 | PROVIDERS: Visit Provider Internal Medicine | DX: D50.9 Iron deficiency anemia, unspecified (principal) | CPT/HCPCS: 96365; J1756 ==

== ENCOUNTER 2022-07-22 16:41 | Emergency (ER) | payer MEDICAID, SELFPAY ==
--- NOTE | ~2022-07-22 | CT_ITS ---
EXAMINATION: CT ABDOMEN AND PELVIS WITHOUT CONTRAST CLINICAL INFORMATION: Left flank pain and UTI symptoms COMPARISON: CT abdomen and pelvis 09/08/2021 TECHNIQUE: Multidetector volumetric imaging was performed from the superior aspect of the liver through the pubic symphysis. Sagittal and coronal reformatted images were obtained on the technologist's workstation. This CT examination was performed using dose optimization techniques as appropriate, variously including the following: *Automated exposure control *Adjustment of mA and/or kV according to patient size (this includes techniques or standardized protocols for targeted exams where dose is matched to indication/reason for exam; i.e. extremities or head) *Use of iterative reconstruction technique DLP: 604 mGy-cm FINDINGS: LUNG BASES: The visualized lung bases are unremarkable. LIVER, GALLBLADDER, AND BILIARY TREE: The liver is normal in size, shape, and attenuation. No focal hepatic lesion or biliary ductal dilatation is present. The gallbladder is unremarkable with no evidence of radiopaque gallstones, gallbladder wall thickening, or obvious pericholecystic inflammatory changes. PANCREAS: Unremarkable. SPLEEN: Unremarkable. ADRENAL GLANDS: Unremarkable. KIDNEYS AND URETERS: The kidneys are normal in size, shape, and attenuation. No hydronephrosis, hydroureter, or calculi seen. No perinephric stranding. BLADDER: Partially distended. Slightly thick-walled appearance favored due to limited distention. No focal bladder wall thickening. GASTROINTESTINAL TRACT: Rectosigmoid anastomotic suture line. No dilated bowel loops. No bowel wall thickening. Unremarkable appendix without surrounding inflammatory change. Right lower quadrant ileostomy with parastomal hernia containing fat and nondilated loops of small bowel. No ascites or free air. In the left abdominal fat there is a masslike area of fat with soft tissue attenuation rim, presumably an area of fat necrosis/scarring in the fat related to interval surgery. ABDOMINAL WALL: Prior mesh, wall hernia repair with multiple metallic tacks. Right lower quadrant parastomal hernia as above. LYMPH NODES: No lymphadenopathy. VASCULAR: Normal caliber abdominal aorta. Mild vascular calcifications. PELVIC VISCERA: Gynecologic structures grossly unremarkable. Small amount of loculated appearing fluid or soft tissue thickening in the cul-de-sac. OSSEOUS STRUCTURES: No acute fracture or suspicious osseous lesion. Moderate degenerative disc disease at L5-S1. CT/CT abdomen pelvis wo IV con IMPRESSION: 1. No renal/ureteral calculi or hydronephrosis. No perinephric inflammatory fat stranding. Cannot exclude pyelonephritis via a noncontrast CT. 2. Small amount of nonspecific loculated appearing fluid or soft tissue thickening in the pelvis cul-de-sac. 3. Right lower quadrant ileostomy with parastomal hernia containing fat and nondilated loops of small bowel. 4. Area of fat necrosis or postsurgical scarring in the left hemiabdomen status post interval partial colectomy.
--- NOTE | 2022-07-22 18:03 | ED_ITS ---
HPI - General Adult General Chief complaint: General Medical <KAHLIL Nunn - Last Filed: 07/22/22 18:05> Stated complaint: infection <KAHLIL Nunn - Last Filed: 07/22/22 18:05> Time Seen by Provider: 07/22/22 22:08 <KAHLIL Nunn - Last Filed: 07/22/22 18:05> Source: patient <Qi Pace MD - Last Filed: 07/22/22 22:44> Mode of arrival: ambulatory <Qi Pace MD - Last Filed: 07/22/22 22:44> Limitations: no limitations <Qi Pace MD - Last Filed: 07/22/22 22:44> History of Present Illness HPI narrative: Patient comes to the emergency room complaining of 1 week of dysuria and flank pain on the left side. Patient denies fever, complaining of chills. Patient denies any chest pain, shortness of breath, nausea vomiting or diarrhea. <Qi Pace MD - Last Filed: 07/22/22 22:44> Related Data Home medications: Home Medications Medication Instructions Recorded Confirmed clonazepam 1 mg tablet 1 tab PO BEDTIME PRN Sleep 03/22/21 06/04/22 docusate sodium 100 mg capsule 1 cap PO BID PRN Constipation 03/22/21 06/04/22 ergocalciferol (vitamin D2) 1,250 1 cap PO WE 03/22/21 06/04/22 mcg (50,000 unit) capsule montelukast 10 mg tablet 1 tab PO BEDTIME 03/22/21 06/04/22 multivitamin 1 tab PO QAM 03/22/21 06/04/22 topiramate 100 mg tablet 1 tab PO BID 03/22/21 06/04/22 albuterol sulfate 2.5 mg/3 mL 1 amp inhalation Q6H PRN Wheezing 06/13/21 06/04/22 (0.083 %) solution for nebulization albuterol sulfate 90 mcg/actuation 2 puff PO QID PRN Dyspnea 06/13/21 06/04/22 aerosol inhaler (ProAir HFA) apixaban 5 mg tablet (Eliquis) 5 mg PO BID 06/13/21 06/04/22 esomeprazole magnesium 20 mg 1 cap PO QAM PRN Acid Reflux 06/13/21 06/04/22 capsule,delayed release buspirone 5 mg tablet 1 tab PO DAILY 06/25/21 06/04/22 calcium carbonate 600 mg-vitamin 1 tab PO BID 06/25/21 06/04/22 D3 10 mcg (400 unit) tablet hydroxyzine HCl 25 mg tablet 1 - 2 tab PO TID PRN Anxiety 06/25/21 06/04/22 lidocaine 4 % topical patch 1 patch topical DAILY PRN 06/25/21 06/04/22 Breakthrough Pain budesonide-formoterol HFA 160 2 puff PO DAILY 09/08/21 06/04/22 mcg-4.5 mcg/actuation aerosol inhaler (Symbicort) baclofen 20 mg tablet 20 mg PO TID 01/28/22 06/04/22 gabapentin 100 mg capsule 100 mg PO BID 01/28/22 06/04/22 Previous Rx's Medication Instructions Recorded risperidone 1 mg tablet 1 mg PO BID #60 tabs 04/04/21 oxycodone 5 mg capsule 5 mg PO Q8H PRN pain (scale score 09/14/21 7-10) #10 caps vitamin B complex-folic acid 0.4 1 tab PO QAM #30 tabs 11/09/21 mg tablet (B Complex 1 (with folic acid)) amlodipine 2.5 mg tablet 2.5 mg PO DAILY #30 tabs 11/14/21 folic acid 1 mg tablet 1 mg PO DAILY 60 days #60 tabs 02/21/22 methotrexate sodium 5 mg tablet 25 mg PO QWEEK 60 days #45 tabs 02/21/22 ustekinumab 90 mg/mL subcutaneous 90 mg subcut Q4W 4 weeks #1 mL 05/15/22 syringe (Stelara) oxybutynin chloride 15 mg 15 mg PO DAILY #90 tabs 05/16/22 tablet,extended release 24 hr acetaminophen 325 mg capsule 650 mg PO QID PRN pain 15 days 06/10/22 #120 caps oxycodone-acetaminophen 5 mg-325 1 tab PO Q8H PRN abdominal pain 10 06/15/22 mg tablet (Percocet) days #30 tabs levofloxacin 500 mg tablet 500 mg PO DAILY #9 tabs 11/28/22 miconazole nitrate 2 % topical 1 appl topical BID PRN Yeast 07/22/22 cream infection #28 grams phenazopyridine 100 mg tablet 100 mg PO TID #6 tabs 07/22/22 <KAHLIL Nunn - Last Filed: 07/22/22 18:05> Allergies/adverse reactions: Allergies Allergy/AdvReac Type Severity Reaction Status Date / Time aspirin [ASA] Allergy Intermediate RASH Verified 07/22/22 18:08 azathioprine [From IMURAN] Allergy Intermediate PANCREATIC Verified 07/22/22 18:08 INFLAMMATION ibuprofen [IBUPROFEN] Allergy Intermediate TOLD NOT Verified 07/22/22 18:08 TO TAKE levofloxacin [From LEVAQUIN] Allergy Mild YEAST Verified 07/22/22 18:08 INFECTIONS <KAHLIL Nunn - Last Filed: 07/22/22 18:05> Review of Systems Review of Systems: Constitutional : No Weight loss, No Fever, complaining of C hills, No Night Sweats, No Fatigue, No Malaise ENT/Mouth : No Hearing loss, No Ear Pain, No Nasal Congestion, No Sinus Pain, No Hoarseness, No sore throat, No Rhinorrhea, No Swallowing Difficulty Eyes: No Eye Pain, No Swelling, No Redness, No Foreign Body, No Discharge, No Vision Changes Cardiovascular : No Chest Pain, No SOB, No Dyspnea on Exertion, No Orthopnea, No Edema, No Palpitations Respiratory : No Cough, No Sputum, No Wheezing, No Smoke Exposure, No Dyspnea Gastrointestinal : No Nausea, No Vomiting, No Diarrhea, No Constipation, No abdominal Pain, No Hematochezia, No Melena Genitourinary : no irregular bleeding, complaining of urinary frequency, no hematuria, complaining of left-sided flank pain and suprapubic discomfort Musculoskeletal : No joint pain, No Myalgias, No Joint Swelling Skin : No Skin Lesions, No rash Neuro : No Weakness, No Numbness, No Paresthesias, No Loss of Consciousness, No Dizziness, No Headache Psych : No Anxiety/Panic, No Depression, No SI/HI/AH/VH, No Social Issues, Heme/Lymph: No Bruising, No Bleeding,No Lymphadenopathy Endocrine : No Polyuria, No Polydipsia, No Temperature Intolerance <Qi Pace MD - Last Filed: 07/22/22 22:44> [facility] Past Medical History Medical History: Medical History Anxiety Asthma Cancer Crohn's colitis Crohn's disease Depression Depression GERD (gastroesophageal reflux disease) Hemorrhagic cyst of ovary HTN (hypertension) Hyperlipidemia Iron deficiency anemia Kidney stones Migraine Normocytic anemia PTSD (post-traumatic stress disorder) Pulmonary emboli Pulmonary embolism Recurrent major depression-severe Rheumatoid arthritis Sleep apnea Urge incontinence <KAHLIL Nunn - Last Filed: 07/22/22 18:05> Surgical History: Surgical History History of colon resection History of esophagogastroduodenoscopy (EGD) Hx of colonoscopy (~10/2018) Hx of cystoscopy Hx of cystoscopy Hx of dilation and curettage Hx of endoscopy <KAHLIL Nunn - Last Filed: 07/22/22 18:05> Social History Social History: Social History Household Members: None Housing: Apartment Do you presently have visiting nurse or other home services: No Alcohol intake: never Patient Tobacco Use Status: Never used Tobacco Tobacco use type: Cigarette Years Smoked: 10 Second Hand Smoke Exposure: No Substance Use Type: Marijuana Advance Directives: Yes Advance Directives on File: Yes Advance Directives Date on File: 09/17/21 service: No Current occupational status: unemployed and disabled Sexual orientation: Straight/Heterosexual <KAHLIL Nunn - Last Filed: 07/22/22 18:05> Physical Exam ED Vital Signs: Vital Signs - 24 hr 07/22/22 18:04 07/22/22 20:51 Temperature 98.5 F 98.4 F Pulse Rate 67 72 Respiratory Rate 16 16 Blood Pressure 112/69 114/70 Pulse Oximetry 97 98 Oxygen Delivery Method Room Air Room Air BMI result Body Mass Index 32.5 <KAHLIL Nunn - Last Filed: 07/22/22 18:05> Vital Signs - 24 hr 07/22/22 18:04 07/22/22 20:51 Temperature 98.5 F 98.4 F Pulse Rate 67 72 Respiratory Rate 16 16 Blood Pressure 112/69 114/70 Pulse Oximetry 97 98 Oxygen Delivery Method Room Air Room Air BMI result Body Mass Index 32.5 <Qi Pace MD - Last Filed: 07/22/22 22:44> Const Other: Appearance: Alert. Oriented X3. No acute distress. Well-appearing Eyes: Pupils equal, round and reactive to light. ENT: Pharynx normal. Neck: Normal inspection. Neck supple. No lymph nodes noted. No crepitus CVS: Normal heart rate and rhythm. Pulses normal. Normal S1 and S2 Respiratory: No respiratory distress. Breath sounds normal. No Wheezing. No rales Abdomen: Soft and nontender. No rigidity. No distention. Positive left-sided flank pain Skin: Skin warm and dry. Normal skin color. Normal skin turgor. Extremities: No lower extremity edema. No Lacerations. No Rash Neuro: Oriented X 3. No motor deficit. No sensory deficit. Moving all extremities. No slurred speech. CN 2 through 12 grossly intact Psych: calm, cooperative, normal affect <Qi Pace MD - Last Filed: 07/22/22 22:44> Course Course Course Narrative: Patient's white blood cell count within normal limits, no fever chills, normal blood pressure. Patient does have a UTI, given her symptoms, clinically patient has pyelonephritis. CT scan does not show any renal stones. Patient was giving 1 dose of tramadol, phenazopyridine, Levaquin. Patient has listed under her allergies Levaquin, which gives her ages infection, patient was given also 1 dose of p.o. fluconazole in the emergency room. Patient was agreeable the current treatment Patient is well-appearing, at this time, patient may be treated at home. Discussed with the patient that if she has no symptomatic improvement or if anything worsens within the next 24-48 hours, she needs to return to the emergency room. <Qi Pace MD - Last Filed: 07/22/22 22:44> Reevaluation(s) Reevaluation #1: 51 year old female presents w/ left flank pain, dyuria, urinary frequency X 1 week worsening. Also reports subjective fevers and chills. Hx of kidney stones. Tollerating PO. Denies CP, SOB, nausea,vomiting, hematuria, trauma, headache, vision changes, changes in bowel habits PE- benign Plan- labs, ua, ct abd and pelvis. <KAHLIL Nunn - Last Filed: 07/22/22 18:05> Time: 18:05 <KAHLIL Nunn - Last Filed: 07/22/22 18:05> Medical Decision Making Lab Data Result diagrams: : 07/22/22 20:48 07/22/22 20:48 <KAHLIL Nunn - Last Filed: 07/22/22 18:05> Labs: Lab Results 07/22/22 07/22/22 07/22/22 Range/Units 20:48 20:48 21:00 WBC 7.1 (4.8-10.8) X10*3/uL RBC 4.21 (4.20-5.50) X10*6/uL Hgb 11.2 L D (12.0-16.0) g/dl Hct 36.5 L D (37.0-47.0) % MCV 86.7 (80.0-98.0) fL MCH 26.6 L (27.0-33.0) pg MCHC 30.7 L (31.0-35.0) g/dl RDW 18.5 H (11.0-16.0) % Plt Count 253 D (160-400) X10*3/uL MPV 12.1 (9.4-12.3) fL Immature Gran % (Auto) 0.1 (0.0-0.4) % Neut % (Auto) 58.3 (45-73) % Lymph % (Auto) 32.7 (20-40) % [place] % (Auto) 6.9 (2-11) % Eos % (Auto) 1.4 (0-4) % Baso % (Auto) 0.6 (0-2) % Lymph # (Auto) 2.3 (1.2-4.9) X10*3/uL [place] # (Auto) 0.5 (0.1-1.2) X10*3/uL Eos # (Auto) 0.1 (0.0-0.4) X10*3/uL Baso # (Auto) 0.0 (0.0-0.2) X10*3/uL Abs Immat Gran (auto) 0.01 (0.00-0.03) X10*3/uL Absolute Neuts (auto) 4.2 (2.0-8.3) x10*3/uL Absolute Nucleated RBC 0.000 (0.0-0.012) X10*3/uL Nucleated RBC % (auto) 0.0 (0.0-0.2) /100WBC Sodium 140 (135-145) mmol/L Potassium 4.2 (3.3-5.1) mmol/L Chloride 109 H (96-108) mmol/L Carbon Dioxide 23 (22-29) mmol/L Anion Gap 12 (12-20) BUN 15 (9-16) mg/dL Creatinine 0.84 (0.5-1.4) mg/dL Estim Creat Clear Calc 81.1 Estimated GFR > 60 Random Glucose 95 (60-115) mg/dL Calcium 9.7 (8.4-10.2) mg/dL Total Bilirubin < 0.2 (0.0-1.0) mg/dL AST 14 (5-31) U/L ALT 11 (0-31) U/L Alkaline Phosphatase 81 (39-117) U/L Total Protein 7.5 (6.5-8.0) g/dL Albumin 4.1 (3.5-5.0) g/dL Urine Color Dark Yellow Urine Appearance Cloudy Urine pH 6.0 (5.0-9.0) Ur Specific [place] 1.025 (1.005-1.025) Urine Protein 30 (1+) H (Neg-Trace) mg/dL Urine Glucose (UA) Negative (Negative) mg/dL Urine Ketones Trace (Negative) mg/dL Urine Blood Small (1+) H (Negative) Urine Nitrite Positive H (Negative) Ur Leukocyte Esterase Moderate (2+) H (Negative) Urine RBC 6-10 H (0-2) /HPF Urine WBC >50 H (0-5) /HPF Ur Squamous Epith Cells 3-5 (0-2) /HPF Calcium Oxalate Crystal Present Urine Bacteria 1+ (None Seen) Hyaline Casts 0-2 (0-2) /LPF <KAHLIL Nunn - Last Filed: 07/22/22 18:05> Lab Results 07/22/22 07/22/22 07/22/22 Range/Units 20:48 20:48 21:00 WBC 7.1 (4.8-10.8) X10*3/uL RBC 4.21 (4.20-5.50) X10*6/uL Hgb 11.2 L D (12.0-16.0) g/dl Hct 36.5 L D (37.0-47.0) % MCV 86.7 (80.0-98.0) fL MCH 26.6 L (27.0-33.0) pg MCHC 30.7 L (31.0-35.0) g/dl RDW 18.5 H (11.0-16.0) % Plt Count 253 D (160-400) X10*3/uL MPV 12.1 (9.4-12.3) fL Immature Gran % (Auto) 0.1 (0.0-0.4) % Neut % (Auto) 58.3 (45-73) % Lymph % (Auto) 32.7 (20-40) % [place] % (Auto) 6.9 (2-11) % Eos % (Auto) 1.4 (0-4) % Baso % (Auto) 0.6 (0-2) % Lymph # (Auto) 2.3 (1.2-4.9) X10*3/uL [place] # (Auto) 0.5 (0.1-1.2) X10*3/uL Eos # (Auto) 0.1 (0.0-0.4) X10*3/uL Baso # (Auto) 0.0 (0.0-0.2) X10*3/uL Abs Immat Gran (auto) 0.01 (0.00-0.03) X10*3/uL Absolute Neuts (auto) 4.2 (2.0-8.3) x10*3/uL Absolute Nucleated RBC 0.000 (0.0-0.012) X10*3/uL Nucleated RBC % (auto) 0.0 (0.0-0.2) /100WBC Sodium 140 (135-145) mmol/L Potassium 4.2 (3.3-5.1) mmol/L Chloride 109 H (96-108) mmol/L Carbon Dioxide 23 (22-29) mmol/L Anion Gap 12 (12-20) BUN 15 (9-16) mg/dL Creatinine 0.84 (0.5-1.4) mg/dL Estim Creat Clear Calc 81.1 Estimated GFR > 60 Random Glucose 95 (60-115) mg/dL Calcium 9.7 (8.4-10.2) mg/dL Total Bilirubin < 0.2 (0.0-1.0) mg/dL AST 14 (5-31) U/L ALT 11 (0-31) U/L Alkaline Phosphatase 81 (39-117) U/L Total Protein 7.5 (6.5-8.0) g/dL Albumin 4.1 (3.5-5.0) g/dL Urine Color Dark Yellow Urine Appearance Cloudy Urine pH 6.0 (5.0-9.0) Ur Specific [place] 1.025 (1.005-1.025) Urine Protein 30 (1+) H (Neg-Trace) mg/dL Urine Glucose (UA) Negative (Negative) mg/dL Urine Ketones Trace (Negative) mg/dL Urine Blood Small (1+) H (Negative) Urine Nitrite Positive H (Negative) Ur Leukocyte Esterase Moderate (2+) H (Negative) Urine RBC 6-10 H (0-2) /HPF Urine WBC >50 H (0-5) /HPF Ur Squamous Epith Cells 3-5 (0-2) /HPF Calcium Oxalate Crystal Present Urine Bacteria 1+ (None Seen) Hyaline Casts 0-2 (0-2) /LPF <Qi Pace MD - Last Filed: 07/22/22 22:44> Imaging Data CT scan - abdomen: Radiologist's impression: ECHNIQUE: Multidetector volumetric imaging was performed from the superior aspect of the liver through the pubic symphysis. Sagittal and coronal reformatted images were obtained on the technologist's workstation.? This CT examination was performed using dose optimization techniques as appropriate, variously including the following: *Automated exposure control *Adjustment of mA and/or kV according to patient size (this includes techniques or standardized protocols for targeted exams where dose is matched to indication/reason for exam; i.e. extremities or head) *Use of iterative reconstruction technique DLP: 604 mGy-cm FINDINGS: LUNG BASES: The visualized lung bases are unremarkable.? LIVER, GALLBLADDER, AND BILIARY TREE: The liver is normal in size, shape, and attenuation. No focal hepatic lesion or biliary ductal dilatation is present. The gallbladder is unremarkable with no evidence of radiopaque gallstones, gallbladder wall thickening, or obvious pericholecystic inflammatory changes.? PANCREAS: Unremarkable.? SPLEEN: Unremarkable.? ADRENAL GLANDS: Unremarkable.? KIDNEYS AND URETERS: The kidneys are normal in size, shape, and attenuation. No hydronephrosis, hydroureter, or calculi seen. No perinephric stranding. ? BLADDER: Partially distended. Slightly thick-walled appearance favored due to limited distention. No focal bladder wall thickening.? GASTROINTESTINAL TRACT: Rectosigmoid anastomotic suture line. No dilated bowel loops. No bowel wall thickening. Unremarkable appendix without surrounding inflammatory change. Right lower quadrant ileostomy with parastomal hernia containing fat and nondilated loops of small bowel. No ascites or free air. In the left abdominal fat there is a masslike area of fat with soft tissue attenuation rim, presumably an area of fat necrosis/scarring in the fat related to interval surgery. ABDOMINAL WALL: Prior mesh, wall hernia repair with multiple metallic tacks. Right lower quadrant parastomal hernia as above.? LYMPH NODES: No lymphadenopathy. VASCULAR: Normal caliber abdominal aorta. Mild vascular calcifications. PELVIC VISCERA: Gynecologic structures grossly unremarkable. Small amount of loculated appearing fluid or soft tissue thickening in the cul-de-sac.? OSSEOUS STRUCTURES: No acute fracture or suspicious osseous lesion. Moderate degenerative disc disease at L5-S1.? CT/CT abdomen pelvis wo IV con IMPRESSION: 1.? No renal/ureteral calculi or hydronephrosis. No perinephric inflammatory fat stranding. Cannot exclude pyelonephritis via a noncontrast CT. 2.? Small amount of nonspecific loculated appearing fluid or soft tissue thickening in the pelvis cul-de-sac. 3.? Right lower quadrant ileostomy with parastomal hernia containing fat and nondilated loops of small bowel. 4.? Area of fat necrosis or postsurgical scarring in the left hemiabdomen status post interval partial colectomy. ? ? <Qi Pace MD - Last Filed: 07/22/22 22:44> Discharge Plan Discharge Clinical Impression: Pyelonephritis <KAHLIL Nunn - Last Filed: 07/22/22 18:05> Patient Disposition: Home, Self-Care <KAHLIL Nunn - Last Filed: 07/22/22 18:05> Instructions: Kidney Infection (ED) <KAHLIL Nunn - Last Filed: 07/22/22 18:05> Additional Instructions: Please follow-up with your primary care physician tomorrow. If you have any worsening or new symptoms, please return to the emergency room or call 911 <KAHLIL Nunn - Last Filed: 07/22/22 18:05> Prescriptions: New levofloxacin 500 mg tablet 500 mg PO DAILY Qty: 9 0RF phenazopyridine 100 mg tablet 100 mg PO TID Qty: 6 0RF miconazole nitrate 2 % cream 1 appl topical BID PRN (Reason: Yeast infection) Qty: 28 0RF No Action vitamin B complex-folic acid [B Complex 1 (with folic acid)] 0.4 mg tablet 1 tab PO QAM Qty: 30 2RF Stelara 90 mg/mL syringe 90 mg subcut Q4W 28 Days Qty: 1 1RF oxybutynin chloride 15 mg tablet extended release 24hr 15 mg PO DAILY Qty: 90 1RF acetaminophen 325 mg capsule 650 mg PO QID PRN (Reason: pain) 15 Days Qty: 120 0RF oxycodone-acetaminophen [Percocet] 5-325 mg tablet 1 tab PO Q8H PRN (Reason: abdominal pain) 10 Days Qty: 30 0RF Rx Instructions: Partial Fill upon patient request. multivitamin Tablet 1 tab PO QAM clonazepam 1 mg tablet 1 tab PO BEDTIME PRN (Reason: Sleep) docusate sodium 100 mg capsule 1 cap PO BID PRN (Reason: Constipation) montelukast 10 mg tablet 1 tab PO BEDTIME ergocalciferol (vitamin D2) 1,250 mcg (50,000 unit) capsule 1 cap PO WE topiramate 100 mg tablet 1 tab PO BID risperidone 1 mg Tablet 1 mg PO BID Qty: 60 0RF albuterol sulfate 2.5 mg /3 mL (0.083 %) solution for nebulization 1 amp inhalation Q6H PRN (Reason: Wheezing) Eliquis 5 mg tablet 5 mg PO BID Rx Instructions: Take 10 mg Eliquis twice daily for 1 week, then take Eliquis 5 mg twice daily for next 3-4 months as per Hematology albuterol sulfate [ProAir HFA] 90 mcg/actuation HFA aerosol inhaler 2 puff PO QID PRN (Reason: Dyspnea) esomeprazole magnesium 20 mg capsule,delayed release(DR/EC) 1 cap PO QAM PRN (Reason: Acid Reflux) hydroxyzine HCl 25 mg tablet 1 - 2 tab PO TID PRN (Reason: Anxiety) calcium carbonate-vitamin D3 600 mg(1,500mg) -400 unit tablet 1 tab PO BID buspirone 5 mg tablet 1 tab PO DAILY lidocaine 4 % Adhesive Patch,Medicated 1 patch TOPICAL DAILY PRN (Reason: Breakthrough Pain) amlodipine 2.5 mg tablet 2.5 mg PO DAILY Qty: 30 0RF budesonide-formoterol [Symbicort] 160-4.5 mcg/actuation HFA aerosol inhaler 2 puff PO DAILY oxycodone 5 mg capsule 5 mg PO Q8H PRN (Reason: pain (scale score 7-10)) Qty: 10 0RF gabapentin 100 mg capsule 100 mg PO BID baclofen 20 mg tablet 20 mg PO TID methotrexate sodium 5 mg tablet 25 mg PO QWEEK 60 Days Qty: 45 3RF folic acid 1 mg tablet 1 mg PO DAILY 60 Days Qty: 60 3RF Rx Instructions: Take 1 tablet daily <KAHLIL Nunn - Last Filed: 07/22/22 18:05>
[2022-07-22 18:04] VITALS: BP 112/69; PULSE 67; RESP 16; TEMP 36.9; O2SAT 97; BMI 32.5
[2022-07-22 20:51] VITALS: BP 114/70; PULSE 72; RESP 16; TEMP 36.9; O2SAT 98
[2022-07-22 20:52] LABS: MANUAL DIFF FLAG NO
[2022-07-22 20:53] LABS: Basophils Percent Auto 0.6 % (0-2); Eosinophils Absolute Auto 0.1 X10*3/uL (0.0-0.4); Eosinophils Percent Auto 1.4 % (0-4); Hematocrit 36.5 % (37.0-47.0); Hemoglobin 11.2 g/dl (12.0-16.0); Imm Gran Abs Auto 0.01 X10*3/uL (0.00-0.03); Imm Gran Pct Auto 0.1 % (0.0-0.4); Lymphocytes Absolute Auto 2.3 X10*3/uL (1.2-4.9); Lymphocytes Percent Auto 32.7 % (20-40); Mean Corpuscular HGB Conc 30.7 g/dl (31.0-35.0); Mean Corpuscular Hemoglobin 26.6 pg (27.0-33.0); Mean Corpuscular Volume 86.7 fL (80.0-98.0); Mean Platelet Volume 12.1 fL (9.4-12.3); Monocytes Absolute Auto 0.5 X10*3/uL (0.1-1.2); Monocytes Percent Auto 6.9 % (2-11); Neutrophils Absolute Auto 4.2 x10*3/uL (2.0-8.3); Neutrophils Percent Auto 58.3 % (45-73); Platelet Count 253 X10*3/uL (160-400); Red Blood Count 4.21 X10*6/uL (4.20-5.50); Red Cell Distribution Width 18.5 % (11.0-16.0); White Blood Count 7.1 X10*3/uL (4.8-10.8)
[2022-07-22 21:11] LABS: Alanine Aminotransferase 11 U/L (0-31); Albumin Level 4.1 g/dL (3.5-5.0); Alkaline Phosphatase 81 U/L (39-117); Anion Gap 12 (12-20); Aspartate Amino Transferase 14 U/L (5-31); Bilirubin Total < 0.2 mg/dL (0.0-1.0); Blood Urea Nitrogen 15 mg/dL (9-16); Calcium 9.7 mg/dL (8.4-10.2); Carbon Dioxide 23 mmol/L (22-29); Chloride 109 mmol/L (96-108); Creatinine Clr Calc Pharmacy 81.1; Estimated Glomerular Filt Rate > 60; Glucose Random 95 mg/dL (60-115); Potassium 4.2 mmol/L (3.3-5.1); Sodium 140 mmol/L (135-145); Total Protein 7.5 g/dL (6.5-8.0)
[2022-07-22 21:20] LABS: Appearance Urine Cloudy; Color Urine Dark Yellow; Glucose Urine UA Negative (Negative); Leukocyte Esterase Urine Moderate (2+) (Negative); Nitrite Urine Positive (Negative); Specific Gravity - Urine 1.025 (1.005-1.025); UMIC TRIGGER UACC YES; Urine Blood Small (1+) (Negative); Urine Ketones Trace mg/dL (Negative); Urine Protein 30 (1+) mg/dL (Neg-Trace)
[2022-07-22 21:53] LABS: Bacteria Urine 1+ (None Seen); Calcium Oxalate Crystals Urine Present; Hyaline Casts Urine 0-2 /LPF (0-2); UACC Culture Trigger YES; WBC Urine >50 /HPF (0-5)
[2022-07-22] MEDS: traMADoL HCL 50 MG TABLET PO (22:39)
[2022-07-22] MEDS: levoFLOXacin 500 MG TABLET PO (22:39)
[2022-07-22] MEDS: Fluconazole 150 MG TABLET PO (22:39)
[2022-07-22] MEDS: Phenazopyridine HCL 100 MG TABLET PO (22:40)
== END 2022-07-22 22:52 | disposition home or self-care (01) ==
PROVIDERS: Physician Assistant; Emergency Provider Emergency Medicine; PCP Internal Medicine
DX: N12 Tubulo-interstitial nephritis, not specified as acute or chronic (principal); B96.20 Unspecified Escherichia coli [E. coli] as the cause of diseases classified elsewhere
CPT/HCPCS: 36415; 74176; 80053; 81001; 85025; 87086; 87088; 87186; 99283; 99284

== ENCOUNTER 2022-07-31 09:57 | Outpatient (REF) | payer MEDICAID, SELFPAY | END 2022-07-31 09:58 | disposition home or self-care (01) | LOC: HO.MDS 09:57 | PROVIDERS: Visit Provider Internal Medicine Gastroenterology | DX: K50.10 Crohn's disease of large intestine without complications (principal) | CPT/HCPCS: 96372 ==

== ENCOUNTER 2022-08-28 13:01 | Outpatient (REF) | payer MEDICAID, SELFPAY ==
[2022-08-28 14:48] LABS: Thyroid Stimulating Hormone 0.95 uIU/mL (0.32-4.0)
[2022-08-28 14:53] LABS: Syphilis Screen Nonreactive (Nonreactive)
[2022-08-28 15:07] LABS: Folate > 20.0 ng/mL (> or = 4.0); Vitamin B12 284 pg/mL (200-900)
== END 2022-08-28 13:02 | disposition home or self-care (01) ==
LOC: HO.MDS 13:01
PROVIDERS: Internal Medicine; Visit Provider Internal Medicine Gastroenterology
DX: K50.118 Crohn's disease of large intestine with other complication (principal)
CPT/HCPCS: 36415; 82607; 82746; 84443; 86780; 96372

== ENCOUNTER → 2022-09-18 13:23 | Outpatient (BNVA) | payer MEDICAID, SELFPAY | PROVIDERS: PCP Internal Medicine; Visit Provider Nurse Practitioner Family | DX: N39.41 Urge incontinence (principal) | CPT/HCPCS: 51798; 99212 ==

== ENCOUNTER 2022-09-25 10:36 | Outpatient (REF) | payer MEDICAID, SELFPAY | END 2022-09-25 10:37 | disposition home or self-care (01) | LOC: HO.MDS 10:36 | PROVIDERS: Visit Provider Internal Medicine Gastroenterology | DX: K50.118 Crohn's disease of large intestine with other complication (principal) | CPT/HCPCS: 96372 ==

== ENCOUNTER 2022-09-30 10:16 | Outpatient (REF) | payer MEDICAID, SELFPAY ==
--- NOTE | ~2022-09-30 | MR_ITS ---
EXAMINATION: MR CERVICAL SPINE WITHOUT CONTRAST CLINICAL INFORMATION: White matter disease. Headache. Numbness in hands. COMPARISON: CT cervical spine from 03/13/2021. TECHNIQUE: MRI of the cervical spine was obtained using routine sequences without contrast. FINDINGS: Straightening of the normal cervical lordosis. Mild degenerative retrolisthesis of C4 on C5. Otherwise, normal anatomic alignment. Mild degenerative disc disease at all cervical levels. No demonstrated spinal cord signal abnormalities. Limited evaluation of the soft tissues of the neck without demonstrated abnormalities. The flow voids of the major cervical vessels are maintained. Normal appearance of the cervicomedullary junction and visualized posterior fossa. SPINAL LEVELS: C2-C3: Normal annular contour. There is no uncovertebral joint arthropathy. There is mild bilateral facet joint arthropathy. There is no neural foraminal stenosis. There is no spinal canal stenosis. C3-C4: Normal annular contour. There is mild left and no right uncovertebral joint arthropathy. There is mild bilateral facet joint arthropathy. There is mild left and no right neural foraminal stenosis. There is no spinal canal stenosis. C4-C5: Mild disc-osteophyte complex. There is mild bilateral uncovertebral joint arthropathy. There is mild bilateral facet joint arthropathy. There is mild bilateral neural foraminal stenosis. There is no spinal canal stenosis. C5-C6: Mild disc-osteophyte complex. There is mild bilateral uncovertebral joint arthropathy. There is no facet joint arthropathy. There is no neural foraminal stenosis. There is no spinal canal stenosis. C6-C7: Mild disc-osteophyte complex. There is mild right and no left uncovertebral joint arthropathy. There is mild left and no right facet joint arthropathy. There is mild right and no left neural foraminal stenosis. There is no spinal canal stenosis. C7-T1: Normal annular contour. There is no uncovertebral joint arthropathy. There is no facet joint arthropathy. There is no neural foraminal stenosis. There is no spinal canal stenosis. MR/MR cervical spine wo con IMPRESSION: Mild multilevel degenerative spondyloarthropathy of the cervical spine as described in detail above. No overt spinal canal stenosis or nerve root compression.
== END 2022-09-30 10:17 | disposition home or self-care (01) ==
LOC: HO.MRI 10:16
PROVIDERS: Visit Provider Internal Medicine
DX: R90.82 White matter disease, unspecified (principal); R20.2 Paresthesia of skin
CPT/HCPCS: 72141

== ENCOUNTER 2022-10-10 08:50 | Outpatient (REF) | payer MEDICAID, SELFPAY ==
[2022-10-10 10:02] LABS: MANUAL DIFF FLAG NO
[2022-10-10 10:54] LABS: Basophils Percent Auto 0.5 % (0-2); Eosinophils Percent Auto 0.8 % (0-4); Hematocrit 40.2 % (37.0-47.0); Hemoglobin 12.8 g/dl (12.0-16.0); Lymphocytes Percent Auto 34.5 % (20-40); Mean Corpuscular HGB Conc 31.8 g/dl (31.0-35.0); Mean Corpuscular Hemoglobin 28.4 pg (27.0-33.0); Mean Corpuscular Volume 89.1 fL (80.0-98.0); Mean Platelet Volume 12.1 fL (9.4-12.3); Monocytes Percent Auto 9.3 % (2-11); Neutrophils Absolute Auto 3.4 x10*3/uL (2.0-8.3); Neutrophils Percent Auto 53.9 % (45-73); Platelet Count 203 X10*3/uL (160-400); Red Blood Count 4.51 X10*6/uL (4.20-5.50); White Blood Count 6.3 X10*3/uL (4.8-10.8)
[2022-10-10 10:55] LABS: Eosinophils Absolute Auto 0.1 X10*3/uL (0.0-0.4); Imm Gran Abs Auto 0.06 X10*3/uL (0.00-0.03); Lymphocytes Absolute Auto 2.2 X10*3/uL (1.2-4.9); Monocytes Absolute Auto 0.6 X10*3/uL (0.1-1.2)
[2022-10-10 11:37] LABS: Alanine Aminotransferase 12 U/L (0-31); Albumin Level 4.3 g/dL (3.5-5.0); Alkaline Phosphatase 77 U/L (39-117); Anion Gap 13 (12-20); Aspartate Amino Transferase 13 U/L (5-31); Bilirubin Total 0.3 mg/dL (0.0-1.0); Blood Urea Nitrogen 14 mg/dL (9-16); C Reactive Protein 0.21 mg/dL (< or = 0.50); Calcium 9.6 mg/dL (8.4-10.2); Carbon Dioxide 24 mmol/L (22-29); Chloride 109 mmol/L (96-108); Estimated Glomerular Filt Rate > 60; Glucose Random 86 mg/dL (60-115); Potassium 4.4 mmol/L (3.3-5.1); Sodium 142 mmol/L (135-145); Total Protein 7.4 g/dL (6.5-8.0)
[2022-10-10 11:40] LABS: Vitamin D 25-OH Total 39.2 ng/mL (>30)
[2022-10-15 00:13] LABS: Zinc 65 mcg/dL (60-130)
== END 2022-10-10 08:51 | disposition home or self-care (01) ==
LOC: HO.LAB 08:50
PROVIDERS: PCP Internal Medicine; Visit Provider Internal Medicine Gastroenterology
DX: K50.10 Crohn's disease of large intestine without complications (principal); K56.699 Other intestinal obstruction unspecified as to partial versus complete obstruction; E55.9 Vitamin D deficiency, unspecified; Z90.49 Acquired absence of other specified parts of digestive tract
CPT/HCPCS: 36415; 80053; 82306; 84630; 85025; 86140; 99212

== ENCOUNTER 2022-11-05 10:38 | Outpatient (REF) | payer MEDICAID, SELFPAY | END 2022-11-05 10:39 | disposition home or self-care (01) | LOC: HO.MDS 10:38 | PROVIDERS: Visit Provider Internal Medicine Gastroenterology | DX: K50.10 Crohn's disease of large intestine without complications (principal) | CPT/HCPCS: 96372 ==

== ENCOUNTER 2022-12-03 11:32 | Outpatient (REF) | payer MEDICAID, SELFPAY | END 2022-12-03 11:33 | disposition home or self-care (01) | LOC: HO.MDS 11:32 | PROVIDERS: Visit Provider Internal Medicine Gastroenterology | DX: K50.119 Crohn's disease of large intestine with unspecified complications (principal) | CPT/HCPCS: 96372 ==

== ENCOUNTER 2022-12-30 10:53 | Outpatient (REF) | payer MEDICAID, SELFPAY | END 2022-12-30 10:54 | disposition home or self-care (01) | LOC: HO.MDS 10:53 | PROVIDERS: Visit Provider Internal Medicine Gastroenterology | DX: K50.119 Crohn's disease of large intestine with unspecified complications (principal) | CPT/HCPCS: 96372 ==

== ENCOUNTER 2023-01-27 09:28 | Outpatient (REF) | payer MEDICAID, SELFPAY | END 2023-01-27 09:29 | disposition home or self-care (01) | LOC: HO.MDS 09:28 | PROVIDERS: Visit Provider Internal Medicine Gastroenterology | DX: K50.118 Crohn's disease of large intestine with other complication (principal) | CPT/HCPCS: 96372 ==

== ENCOUNTER → 2023-02-20 10:14 | Outpatient (BNVA) | payer MEDICAID, SELFPAY | PROVIDERS: Visit Provider Internal Medicine Gastroenterology | DX: K50.10 Crohn's disease of large intestine without complications (principal); E55.9 Vitamin D deficiency, unspecified; Z90.49 Acquired absence of other specified parts of digestive tract | CPT/HCPCS: 99212 ==

== ENCOUNTER 2023-02-26 09:22 | Outpatient (REF) | payer MEDICAID, SELFPAY | END 2023-02-26 09:23 | disposition home or self-care (01) | LOC: HO.MDS 09:22 | PROVIDERS: Visit Provider Internal Medicine Gastroenterology | DX: K50.10 Crohn's disease of large intestine without complications (principal) | CPT/HCPCS: 36415; 86481; 96372 ==

== ENCOUNTER 2023-03-13 13:30 | Outpatient (REF) | payer MEDICAID, SELFPAY ==
--- NOTE | ~2023-03-13 | MM_ITS ---
EXAMINATION: MM SCREENING DIGITAL BREAST TOMOSYNTHESIS, BILATERAL CLINICAL INFORMATION: Screening. Asymptomatic. The lifetime risk of breast cancer based on the Tyrer-Cuzick Model is 5.0%. COMPARISON: Mammography: This study is compared with prior exams dating back to 2019. TECHNIQUE: Digital breast tomosynthesis is performed in both the craniocaudal and mediolateral oblique views along with computer-aided detection (CAD). Synthesized 2D images are generated from the tomosynthesis. FINDINGS: There are scattered areas of fibroglandular density (ACR BI-RADS breast composition Category b). There are no significant masses, abnormal calcifications, or other abnormalities. MM/MM tomosynthesis screening BI IMPRESSION: No mammographic evidence of malignancy. ASSESSMENT: BI-RADS BI-RADS 1 - Negative RECOMMENDATION: Routine annual mammography screening. 1 year F/U This examination should not preclude the clinical evaluation of a suspicious palpable abnormality. This patient's information was entered into a reminder system with a target due date for their next mammogram.
== END 2023-03-13 13:31 | disposition home or self-care (01) ==
LOC: HO.MAMMO 13:30
PROVIDERS: Visit Provider Internal Medicine
DX: Z12.31 Encounter for screening mammogram for malignant neoplasm of breast (principal)
CPT/HCPCS: 77063; 77067

== ENCOUNTER → 2023-03-13 13:30 | Outpatient (BNV) | payer MEDICAID, SELFPAY | PROVIDERS: Visit Provider Radiology Diagnostic Radiology | DX: Z12.31 Encounter for screening mammogram for malignant neoplasm of breast (principal) | CPT/HCPCS: 77063; 77067 ==

== ENCOUNTER 2023-03-25 11:10 | Outpatient (REF) | payer MEDICAID, SELFPAY | END 2023-03-25 11:11 | disposition home or self-care (01) | LOC: HO.MDS 11:10 | PROVIDERS: Visit Provider Internal Medicine Gastroenterology | DX: K50.10 Crohn's disease of large intestine without complications (principal) | CPT/HCPCS: 96372 ==

== ENCOUNTER 2023-04-22 11:03 | Outpatient (REF) | payer MEDICAID, SELFPAY | END 2023-04-22 11:04 | disposition home or self-care (01) | LOC: HO.MDS 11:03 | PROVIDERS: Visit Provider Internal Medicine Gastroenterology | DX: K50.10 Crohn's disease of large intestine without complications (principal) | CPT/HCPCS: 96372; J3357 ==

== ENCOUNTER 2023-04-25 14:10 | Outpatient (REF) | payer MEDICAID, SELFPAY ==
[2023-04-25 15:56] LABS: Basophils Absolute Auto 0.1 X10*3/uL (0.0-0.2); Basophils Percent Auto 0.8 % (0-2); Eosinophils Absolute Auto 0.1 X10*3/uL (0.0-0.4); Eosinophils Percent Auto 1.3 % (0-4); Hematocrit 39.6 % (37.0-47.0); Hemoglobin 12.8 g/dl (12.0-16.0); Imm Gran Abs Auto 0.01 X10*3/uL (0.00-0.03); Imm Gran Pct Auto 0.1 % (0.0-0.4); Lymphocytes Percent Auto 28.5 % (20-40); MANUAL DIFF FLAG NO; Mean Corpuscular HGB Conc 32.3 g/dl (31.0-35.0); Mean Corpuscular Hemoglobin 28.3 pg (27.0-33.0); Mean Corpuscular Volume 87.6 fL (80.0-98.0); Mean Platelet Volume 12.7 fL (9.4-12.3); Monocytes Absolute Auto 0.4 X10*3/uL (0.1-1.2); Monocytes Percent Auto 6.2 % (2-11); Neutrophils Absolute Auto 4.5 x10*3/uL (2.0-8.3); Neutrophils Percent Auto 63.1 % (45-73); Platelet Count 231 X10*3/uL (160-400); Red Blood Count 4.52 X10*6/uL (4.20-5.50); White Blood Count 7.1 X10*3/uL (4.8-10.8)
[2023-04-25 19:54] LABS: Alanine Aminotransferase 11 U/L (0-31); Albumin Level 4.2 g/dL (3.5-5.0); Alkaline Phosphatase 71 U/L (39-117); Anion Gap 13 (12-20); Aspartate Amino Transferase 14 U/L (5-31); Bilirubin Total 0.2 mg/dL (0.0-1.0); Blood Urea Nitrogen 15 mg/dL (9-16); C Reactive Protein 0.32 mg/dL (< or = 0.50); Calcium 9.5 mg/dL (8.4-10.2); Carbon Dioxide 21 mmol/L (22-29); Chloride 108 mmol/L (96-108); Estimated Glomerular Filt Rate > 60; Glucose Random 74 mg/dL (60-115); Sodium 138 mmol/L (135-145); Total Protein 7.6 g/dL (6.5-8.0)
== END 2023-04-25 14:11 | disposition home or self-care (01) ==
LOC: HO.HHCL 14:10
PROVIDERS: Visit Provider General Practice
DX: K50.911 Crohn's disease, unspecified, with rectal bleeding (principal)
CPT/HCPCS: 36415; 80053; 85025; 86140; 87086

== ENCOUNTER 2023-05-09 10:29 | Outpatient (REF) | payer MEDICAID, SELFPAY ==
[2023-05-09 12:25] LABS: Alanine Aminotransferase 9 U/L (0-31); Albumin Level 4.2 g/dL (3.5-5.0); Alkaline Phosphatase 71 U/L (39-117); Aspartate Amino Transferase 13 U/L (5-31); Bilirubin Direct < 0.2 mg/dL (0.0-0.5); Bilirubin Total 0.2 mg/dL (0.0-1.0); Total Protein 7.7 g/dL (6.5-8.0)
[2023-05-09 12:41] LABS: Syphilis Screen Nonreactive (Nonreactive)
== END 2023-05-09 10:30 | disposition home or self-care (01) ==
LOC: HO.HHCL 10:29
PROVIDERS: Visit Provider Emergency Medicine
DX: R21 Rash and other nonspecific skin eruption (principal)
CPT/HCPCS: 36415; 80076; 86780

== ENCOUNTER 2023-05-20 10:55 | Outpatient (REF) | payer MEDICAID, SELFPAY | END 2023-05-20 10:56 | disposition home or self-care (01) | LOC: HO.MDS 10:55 | PROVIDERS: Visit Provider Internal Medicine Gastroenterology | DX: K50.10 Crohn's disease of large intestine without complications (principal) | CPT/HCPCS: 96372 ==

== ENCOUNTER 2023-05-29 08:57 | Outpatient (AMB) | payer MEDICAID, SELFPAY ==
--- NOTE | 2023-05-29 09:01 | MHC.OFFVIS ---
Intake Vital Signs 05/29/23 09:09 Height 5 ft 3 in Weight 180 lb BMI 31.9 BP 98/65 Blood Pressure Location Lt brachial Position Sitting Pulse 79 Intake Visit Reasons: S/p colon Intake Note: Patient follow up for abdominal pain and constipation. Patient cc: abdominal pain with bloating, acid reflex on and off, constipation with some blood. Denies any other GI issues. Customer Service Dispatcher Required: Yes Customer Service Dispatcher Name: [facility] interpeter Allergies aspirin [ASA] Allergy (Intermediate, Verified 05/29/23 09:05) RASH azathioprine [From IMURAN] Allergy (Intermediate, Verified 05/29/23 09:05) PANCREATIC INFLAMMATION ibuprofen [IBUPROFEN] Allergy (Intermediate, Verified 05/29/23 09:05) TOLD NOT TO TAKE levofloxacin [From LEVAQUIN] Allergy (Mild, Verified 05/29/23 09:05) YEAST INFECTIONS Medication List - Last Reconciled 05/29/23 by Libby Palafox MD acetaminophen 650 mg (2 x 325 mg) PO QID PRN 15 days albuterol sulfate 1 amp inhalation Q6H PRN albuterol sulfate 90 mcg/actuation (ProAir HFA) 2 puffs PO QID PRN amlodipine 2.5 mg PO DAILY apixaban (Eliquis) 5 mg PO BID baclofen 20 mg PO TID bisacodyl (Dulcolax (bisacodyl)) 10 mg (2 x 5 mg) PO ONCE 3 days budesonide-formoterol 160-4.5 mcg/actuation (Symbicort) 2 puffs PO DAILY buspirone 1 tab PO DAILY calcium carbonate-vitamin D3 600 mg-10 mcg (400 unit) 1 tab PO BID clonazepam 1 tab PO BEDTIME PRN docusate sodium 1 cap PO BID PRN ergocalciferol (vitamin D2) 1 cap PO WE esomeprazole magnesium 1 cap PO QAM PRN folic acid 1 mg PO DAILY 60 days gabapentin 100 mg PO BID hydroxyzine HCl 1 - 2 tabs PO TID PRN lidocaine 4% 1 patch topical DAILY PRN methotrexate sodium 25 mg (5 x 5 mg) PO QWEEK 60 days miconazole nitrate 2% 1 appl topical BID PRN montelukast 1 tab PO BEDTIME multivitamin 1 tab PO QAM oxybutynin chloride ER 15 mg PO DAILY 90 days polyethylene glycol 3350 (Miralax) 17 grams PO DAILY 1 day polyethylene glycol 3350 (Miralax) 17 grams PO DAILY 30 days risperidone 1 mg PO BID topiramate 1 tab PO BID ustekinumab (Stelara) 90 mg subcut Q4W 12 weeks vitamin B complex-folic acid 0.4 mg (B Complex 1 (with folic acid)) 1 tab PO QAM HPI S/p colon HPI Details GI FU visit for this 52-year-old female for FU of Crohn's disease. Pt is on chronic anticoagulation with Eliquis because of history of pulmonary embolism. Pt [place] [facility] [place] disease flare from 09/08/21 to 09/14/21: Hospital course: She presented with abdominal pain and was noted to have stricture related to crohn's disease, there was no evidence active infection. She was treated with IV steroid, empric Flagyl. She then underwent colonscopy with stricture dilation by Dr. Palafox on 09/13 after being off eliquis for 3 days. She is now feeling better, her diet has been advance and tolerating. She will follow up with Dr. Palafox on outpatient basis. She will be discharged with Prednisone taper with 40 mg daily and reduce by 10 mg every 5 days.? She will resume Eliquis for history of PE ?? ? CHRONIC ILLNESSES:?RA, GERD, asthma, sleep apnea, iron def anemia, anxiety and depression ?LABS IN [facility]:04/28/20 Reviewed H&H of 11.2 and 36.7, CHEM PANEL AND LFTS. ? Improvement in LFTs with AST of 32 (decreased from 93) and ALT of 70 (decreased from 190) , alkaline phosphatase 97, FERRITIN 40 ? CRP 2.20 (increased from 0.71 on 03/24/20) ? 08/12 STOOL CALPROTECTIN WAS 714 (DECREASED FROM > 2000 IN 12/11) 01/11 T spot was negative. ?IMAGING STUDIES: 09/08/[address] SCAN SHOWED: Narrowing of the segment of the proximal sigmoid colon with wall enhancement and thickening is noted which is a chronic finding as seen on multiple previous CT scans; however, possibility of mild increased wall thickening and enhancement in the region cannot be completely excluded. Given the dilatation of the colon proximal to this level on current examination, possibility of at least partial obstruction related to the proximal sigmoid colon stricture is suspected. The findings are most probably related to patient's known inflammatory bowel disease; however, again possibility of neoplastic process here cannot be completely excluded. 03/[address] SCAN SHOWED: ? There is a long segment of colitis from the mid transverse colon ? through the distal rectum sigmoid consistent with history of Crohn's ? disease. There has been progression of disease since prior exam of 12/16/2019. ENDOSCOPIC STUDIES:?09/28/21 EGD SHOWED: ESOPHAGUS: GE junction at 36 cms.? Focal esophagitis with a 1 cms ulcer at GEJ. No stricture or ring noted.? Scattered white exudates in the proximal and mid esophagus suggestive of esophageal candidiasis - biopsies obtained to check for Karo/EOE. STOMACH: Gastritis - biopsied to check for H Pylori Plan:? Start Fluconazole for esophageal candidiasis - likely source of dysphagia and odynophagia. Resume Eliquis tonight. 09/13/21 FLEXIBLE SIGMOIDOSCOPY SHOWED: Flexible Sigmoidoscopy Findings: Focal tight stricture from 15 to 18 cms with ulcerations. Stricture was dilated with a 10, 11 and 12 mm (36 F) CRE balloon x 60 sec at each level. Biopsies were obtained from the stricture and colon at 30 and 10 cms (proximal and distal to the stricture) Plan:? Resume full liquid diet tonight and advance diet as tolerated. OK to resume Eliquis in the am. Switch to PO prednisone at 40 mg in the am and taper by 10 mg every 5 days over 3 weeks. BIOPSIES SHOWED: A.? Colon, sigmoid at 30 cm, biopsy:? Focal chronic colitis without activity; negative for dysplasia and carcinoma. B.? Colon, sigmoid at 18 cm, stricture, biopsy:? Chronic colitis with mild to severe activity and active ulcer with granulation tissue, superficial fragments; negative for dysplasia and carcinoma. C.? Colon, sigmoid at 10 cm, biopsy:? Chronic colitis without activity; negative for dysplasia and carcinoma. Colonoscopy in 01/18/20 showed patchy erythema throughout the colon - surveillance biopsies were obtained. Focal area of ulcerations with a tight stricture at 18 to 20 cms and unable to pass the colonoscope through the stricture. Stricture was dilated with a 12mm (26 F) CRE balloon and colonoscope was then advanced into the colon. Patchy erythema with focal ulcers in the distal rectum. Inflammation in the recto-sigmoid significantly improved from last year - severe left sided colitis with minimal inflammation in the remaining colon. Biopsies were negative for CMV. TODAY'S VISIT:? 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 Complains of constipation - has a BM every 1-2 days. Takes prune juice which helps. Takes docusate twice a day for constipation. Denies black stools or rectal bleeding. PAST VISITS: Had ileostomy reversal 2 months ago. Surgery went well. Has a BM 2-3 times a day, has constipation on some days and does not go on some days Feeling regular Has an appt with colorectal [place] [facility] [place]. Pt states, the surgeon will discuss reversal of colostomy. Last Stelara injection was on Sep 25, 2022 and next injection scheduled on 10/23/22. Pt denies abdominal pain and reports a good appetite Pt is accompanied by her daughter, Aissatou. EGD results were reviewed with the patient. Denies abdominal pain or rectal bleeding. Comes to short stay for her Stelara injection - last injection 01/31/22. Next injection scheduled on 02/28/22 at 9:30 am. Not taking MTX - prescription was stopped without anyone telling the pt - prescription renewed. Has been feeling better since discharge from the hospital 10 days ago - I have abdominal pain. Sometimes when I swallow the food gets stuck - symptoms associated with solid food. Its painful to swallow. Dysphagia episodes are frequent. Food goes down with water and is very painful. Has 6-7 BMs a day. On prednisone taper at 30 mg daily and will decrease to 20 mg daily in 2 days. IBD Summary: ? Year of diagnosis: Crohn's disease diagnosed in [address] scan. ? Disease Extent: Colon ? Past treatments: Azathioprine caused pancreatitis, ? She was initially treated with Remicade which did not work and she was switched to Humira. ? Treated with Entyvio for a few months which was stopped due to side effects. ? In 09/2016, she was treated with Stelara every 8 weeks which worked well for her. ? She has been treated with Prednisone intermittently. ? Previous Endoscopic Evaluations: 01/18/20 COLONOSCOPY SHOWED: One small hyperplastic rectal polyp removed. Patchy erythema throughout the colon - surveillance biopsies were obtained. Focal area of ulcerations with a tight stricture at 18 to 20 cms and unable to pass the colonoscope through the stricture. Stricture was dilated with a 12mm (26 F) CRE balloon and colonoscope was then advanced into the colon. Patchy erythema with focal ulcers in the distal rectum. Inflammation in the recto-sigmoid significantly improved from last year - biopsies were obtained for histology. EGD and colonoscopy on 08/20/2016. ? EGD showed diffuse whittish plaques in the esophagus and diffuse erythema of the mucosa in the cardia. ? Biopsies were obtained. ? Colonoscopy showed normal mucosa in the right colon and patchy erythema and erosions in the left colon. Diffuse erythema and erosions were seen involving most of the rectum. ? Past Surgeries: She underwent Colon surgery (? removal of sigmoid colon) with colostomy at [facility] in 2010. She had reversal of colostomy in Dec, 2011. She developed a peristomal hernia. Last seen at [facility] in 11/2020 and requesting an appointment. Increased MTX to 25 mg (10 tablets) from 5 or 6 tablets daily in?March [facility] Medical History Anxiety Asthma Cancer Crohn's colitis Crohn's disease Depression Depression GERD (gastroesophageal reflux disease) Hemorrhagic cyst of ovary HTN (hypertension) Hyperlipidemia Iron deficiency anemia Kidney stones Migraine Normocytic anemia PTSD (post-traumatic stress disorder) Pulmonary emboli Pulmonary embolism Recurrent major depression-severe Rheumatoid arthritis Sleep apnea Urge incontinence Surgical History History of esophagogastroduodenoscopy (EGD) History of colon resection Hx of dilation and curettage Hx of cystoscopy Hx of cystoscopy Hx of colonoscopy (~10/2018) Hx of endoscopy Social History Household Members: None Housing: Apartment Do you presently have visiting nurse or other home services: No Alcohol intake: never Patient Tobacco Use Status: Never used Tobacco Tobacco use type: Cigarette Years Smoked: 10 Second Hand Smoke Exposure: No Substance Use Type: Marijuana Advance Directives Date on File: 09/17/21 service: No Current occupational status: unemployed and disabled Sexual orientation: Straight/Heterosexual Review of Systems Const All systems reviewed & are unremarkable except as noted in HPI and below Physical Exam Vital Signs: Last Vital Signs Pulse 79 05/29/23 09:09 BP 98/65 05/29/23 09:09 BMI result Body Mass Index 31.9 Const General: healthy appearing and no acute distress; No well groomed Nutritional Appearance: average body habitus and obese Orientation/consciousness: patient oriented x3 Limitations: language barrier HEENT Head: Yes normal to inspection Ears: hearing grossly normal bilaterally Mouth: Normal oral and palatal mucosa present Eyes Sclerae: sclerae normal Pupils: Equal, round and reactive pupils present Neck Neck: Yes normal visual inspection Chest Chest palpation & inspection: normal inspection of the chest Resp Effort & Inspection: normal respiratory effort Auscultation: clear to auscultation bilaterally Cardio Palpation: normal PMI Rate: regular rate Rhythm: regular rhythm Heart sounds: S1 normal heart sound present, S2 normal heart sound present and no murmurs GI Inspection: Yes scar Palpation (GI): Soft to palpation, nontender and No hepatosplenomegaly present Auscultation: normal bowel sounds Rectal Exam - Female: deferred Skin General skin exam: no rashes or lesions noted Neuro General: patient oriented x3, gait normal and moves all extremities Cranial nerves: Yes Equal, round and reactive pupils present Psych Appearance: grossly normal Mental Status: mental status grossly normal Assessment & Plan Assessment & Plan (1) History of colon resection: Comment: 05/17/22 Pt had Robot assisted laparoscopic lysis of adhesions with resection of colorectal anastomosis and new colorectal anastomosis with loop ileostomy and ledt ureterolysis and mobilization of the splenic flexure by Dr Mcdonough, colorectal surgeon, [facility]. November 2022 - Ileostomy take [place] [facility] Code(s): Z90.49 - Acquired absence of other specified parts of digestive tract (2) Crohn's colitis: Code(s): K50.10 - Crohn's disease of large intestine without complications (3) Vitamin D deficiency: Code(s): E55.9 - Vitamin D deficiency, unspecified (4) Chronic constipation: Code(s): K59.09 - Other constipation Plan 52 YF with RA, GERD, asthma, sleep apnea, iron def anemia, intermittent compliance with follow up appointments, anxiety, depression with some memory loss with Crohn's disease involving the left colon (and suspected jejunal involvement). Pt was diagnosed with Crohn's colitis 21 yrs ago and is status post sigmoid colectomy with colostomy in 2010, reversal of colostomy in 2011. She has failed treatment with multiple medications in the past due to lack of efficacy or side effects including Remicade, Humira, Cimzia, Entyvio, azathioprine caused pancreatitis. She has been on Stelara every 8 weeks which had worked well for her in the past. Dose of Stelara was increased to every 4 weeks a year ago due to breakthrough symptoms and low trough levels. She has been treated with Prednisone intermittently for CD flares. Patient was seen at [facility] clinic for a 2nd opinion regarding treatment options and addition of methotrexate was advised. Patient was started on methotrexate 25 mg intramuscularly every week on 04/13/19 in the Oncology clinic. She was switched to p.o. methotrexate 50 mg once a week in Sep, 2019 - now taking 25 mg a week. She is also on budesonide 9 mg once daily. She continues to have intermittent flares requiring IV steroids. Pt was seen at [facility] on 05/03/20 and dose of MTX was increased to 25 mg PO (10 tab) every week from 5 or 6 tablets daily in March 2020. 09/13/21 Flexible sigmoidoscopy showed a?focal tight stricture from 15 to 18 cms with ulcerations. Stricture was dilated to 12 mm (36 F) with a CRE balloon. Biopsies obtained from the stricture showed chronic colitis with mild to severe activity and active ulcer with granulation tissue - negative for dysplasia and carcinoma? ?Biopsies obtained from 30 and 10 cms (proximal and distal to the stricture) showed focal chronic colitis without activity. 05/17/22 Pt had Robot assisted laparoscopic lysis of adhesions with resection of colorectal anastomosis and new colorectal anastomosis with loop ileostomy and left ureterolysis and mobilization of the splenic flexure by Dr Mcdonough, colorectal surgeon, [facility].? No dysplasia noted on histology. She has a FU appt to schedule ileostomy reversal after gastrograffin enema. 02/20/23 Pt will be scheduled for a surveillance colonoscopy - scheduled on 08/11/23. Advised to hold Eliquis for 3 days before colonoscopy appt (will obtain clearance from Dr Blake) Miralax once a day for constipation. Labs in March 2023. 05/29/23 mid abdominal/periumblical pain x last week Pain is intense 9/10 in intensity Seen in the ER at [facility] and prescribed oxycodone Pt advised to schedule an Abd CT scan for evaluation of abdominal pain. She is scheduled for a surveillance colonoscopy on 08/11/23. Orders: Orders Complete Blood Count Auto Diff 05/29/23 K50.10 - Crohn's disease of large intestine without complications Comprehensive Met. Panel 05/29/23 K50.10 - Crohn's disease of large intestine without complications CT abdomen pelvis w IV con 06/05/23 Z90.49 - Acquired absence of other specified parts of digestive tract, K50.10 - Crohn's disease of large intestine without complications Calprotectin, Fecal 05/29/23 K50.10 - Crohn's disease of large intestine without complications Medications: New polyethylene glycol 3350 (Miralax) 17 grams PO BID 1,020 grams 3RF 30 days K59.09 - Other constipation Coding Level of Care Code Est Pt Level 4 (89335) Diagnoses History of colon resection Z90.49 Crohn's colitis K50.10 Vitamin D deficiency E55.9 Chronic constipation K59.09 Time Spent (min) 23
[2023-05-29 09:09] VITALS: BP 98/65; PULSE 79; BMI 31.9
== END 2023-05-29 09:48 | disposition home or self-care (01) ==
PROVIDERS: PCP Internal Medicine; Visit Provider Internal Medicine Gastroenterology
DX: Z90.49 Acquired absence of other specified parts of digestive tract (principal); K50.10 Crohn's disease of large intestine without complications; E55.9 Vitamin D deficiency, unspecified; K59.09 Other constipation
CPT/HCPCS: 99214

== ENCOUNTER 2023-05-29 08:57 | Outpatient (REF) | payer MEDICAID, SELFPAY ==
[2023-05-29 11:42] LABS: Alanine Aminotransferase 8 U/L (0-31); Albumin Level 4.1 g/dL (3.5-5.0); Alkaline Phosphatase 73 U/L (39-117); Anion Gap 14 (12-20); Aspartate Amino Transferase 13 U/L (5-31); Bilirubin Total 0.2 mg/dL (0.0-1.0); Blood Urea Nitrogen 15 mg/dL (9-16); Calcium 9.3 mg/dL (8.4-10.2); Carbon Dioxide 23 mmol/L (22-29); Chloride 108 mmol/L (96-108); Estimated Glomerular Filt Rate > 60; Glucose Random 88 mg/dL (60-115); Potassium 3.9 mmol/L (3.3-5.1); Sodium 141 mmol/L (135-145); Total Protein 7.4 g/dL (6.5-8.0)
== END 2023-05-29 08:58 | disposition home or self-care (01) ==
LOC: HO.LAB 08:57
PROVIDERS: PCP Internal Medicine; Visit Provider Internal Medicine Gastroenterology
DX: K50.10 Crohn's disease of large intestine without complications (principal); E55.9 Vitamin D deficiency, unspecified; K59.09 Other constipation; Z90.49 Acquired absence of other specified parts of digestive tract
CPT/HCPCS: 36415; 80053; 85025; 99212

== ENCOUNTER 2023-06-05 11:30 | Outpatient (REF) | payer MEDICAID, SELFPAY ==
--- NOTE | ~2023-06-05 | CT_ITS ---
EXAMINATION: CT ABDOMEN AND PELVIS WITH CONTRAST CLINICAL INFORMATION: History of Crohn's disease post resection. Now with periumbilical pain. COMPARISON: CT abdomen and pelvis 07/22/2022 TECHNIQUE: Multidetector volumetric images were obtained from the superior aspect of the liver through the pubic symphysis following administration 85 mL of Omnipaque 350 intravenous contrast. Sagittal and coronal reformatted images were obtained on the technologist's workstation. Oral contrast: No This CT examination was performed using dose optimization techniques as appropriate, variously including the following: *Automated exposure control *Adjustment of mA and/or kV according to patient size (this includes techniques or standardized protocols for targeted exams where dose is matched to indication/reason for exam; i.e. extremities or head) *Use of iterative reconstruction technique DLP: 474 mGy-cm FINDINGS: LUNG BASES: The visualized lung bases are unremarkable. LIVER, GALLBLADDER, AND BILIARY TREE: The liver is normal in size, shape, and attenuation. No focal hepatic lesion or biliary ductal dilatation is present. The gallbladder is unremarkable with no evidence of radiopaque gallstones, gallbladder wall thickening, or obvious pericholecystic inflammatory changes. PANCREAS: Unremarkable. SPLEEN: Unremarkable. ADRENAL GLANDS: Unremarkable. KIDNEYS AND URETERS: The kidneys are normal in size, shape, and attenuation. No hydronephrosis, hydroureter, or calculi seen. No perinephric stranding. BLADDER: Unremarkable. GASTROINTESTINAL TRACT: There is scattered stool and gas seen throughout the colon without distention. Cecum lies in the right upper quadrant. Annular sutures are seen in the sigmoid colon. Oral contrast opacified small bowel loops are normal caliber. Appendix is not visualized No free air or free fluid seen. Previously noted fat stranding the left paracolic gutter has improved. ABDOMINAL WALL: There is a right anterior abdominal wall hernia with loops of small bowel and intraperitoneal fat within. Previously there was a right ileostomy in place. There is no proximal bowel obstruction. There is anterior abdominal wall hernia repair with mesh in place. The hernia likely extends through the abdominal mesh. LYMPH NODES: There are nonspecific small lymph nodes in the ileocecal mesentery measuring 6 mm and less. VASCULAR: Unremarkable. PELVIC VISCERA: The uterus is anteverted and appears unremarkable.. No adnexal mass or free fluid. There is annulus sutures along the mid to distal sigmoid colon with widely patent lumen. OSSEOUS STRUCTURES: There are degenerative disc changes at L5-S1 disc level. No aggressive lytic or sclerotic process seen.. CT/CT abdomen pelvis w IV con IMPRESSION: Moderate constipation. Annular sutures along the sigmoid colon with widely patent lumen. No obstruction. Right abdominal wall hernia containing loops of small bowel and peritoneal fat. Previously in the same lesion that was ileostomy which has been reversed. In the same region there was anterior abdominal wall hernia repair with mesh in place. Fleischner guidelines were followed.
[2023-06-05] MEDS: Barium Sulfate Oral (Berry) 450 ML ORAL.SUSP 900 ML PO (14:35)
[2023-06-05] MEDS: iohexoL 350 MG/ML 100 ML INFUS..BTL IV (14:40)
== END 2023-06-05 11:31 | disposition home or self-care (01) ==
LOC: HO.CT 11:30
PROVIDERS: Visit Provider Internal Medicine Gastroenterology
DX: K50.10 Crohn's disease of large intestine without complications (principal); Z90.49 Acquired absence of other specified parts of digestive tract
CPT/HCPCS: 74177; Q9967

== ENCOUNTER 2023-06-17 10:47 | Outpatient (REF) | payer MEDICAID, SELFPAY | END 2023-06-17 10:48 | disposition home or self-care (01) | LOC: HO.MDS 10:47 | PROVIDERS: Visit Provider Internal Medicine Gastroenterology | DX: K50.10 Crohn's disease of large intestine without complications (principal) | CPT/HCPCS: 96372 ==

== ENCOUNTER 2023-07-03 18:28 | Outpatient (REF) | payer MEDICAID, SELFPAY ==
[2023-07-08 04:53] LABS: HPV mRNA E6/E7 rflx Not Detected (Not Detected)
[2023-07-11 15:13] LABS: C. trachomatis RNA TMA Not Detected (Not Detected); N. gonorrhoeae RNA TMA Not Detected (Not Detected); Trichomonas (NAAT) Not Detected (Not Detected)
== END 2023-07-03 18:29 | disposition home or self-care (01) ==
LOC: HO.HHCLNP 18:28
PROVIDERS: Visit Provider Internal Medicine
DX: Z12.4 Encounter for screening for malignant neoplasm of cervix (principal); Z11.51 Encounter for screening for human papillomavirus (HPV)
CPT/HCPCS: 36415; 87491; 87591; 87624; 87661; 88142

== ENCOUNTER 2023-07-15 11:50 | Outpatient (REF) | payer MEDICAID, SELFPAY | END 2023-07-15 11:51 | disposition home or self-care (01) | LOC: HO.MDS 11:50 | PROVIDERS: Visit Provider Internal Medicine Gastroenterology | DX: K50.10 Crohn's disease of large intestine without complications (principal) | CPT/HCPCS: 96372 ==

== ENCOUNTER 2023-08-11 09:05 | Day surgery (SDC) | payer MEDICAID, SELFPAY ==
[2023-05-14 14:44] VITALS: BMI 31.2
--- NOTE | 2023-05-15 12:12 | HO.ANESPROP2 ---
HPI - Anesthesia Eval Consult details Narrative: 52yo F for Colonoscopy [facility] Active Problems Active Problems: All Active Problems (Updated 07/23/22 @ 00:03 by Lorenza Rodriguez) History of colon resection (Acute) Urge incontinence (Acute) Stricture of colon (Acute) Crohn's colitis (Acute) Vitamin D deficiency (Acute) Asthma (Acute) Chronic headache (Acute) Syncope, vasovagal (Acute) UTI (urinary tract infection) (Acute) Depression (Acute) Past Medical History Medical History Anxiety Asthma Cancer Crohn's colitis Crohn's disease Depression Depression GERD (gastroesophageal reflux disease) Hemorrhagic cyst of ovary HTN (hypertension) Hyperlipidemia Iron deficiency anemia Kidney stones Migraine Normocytic anemia PTSD (post-traumatic stress disorder) Pulmonary emboli Pulmonary embolism Recurrent major depression-severe Rheumatoid arthritis Sleep apnea Urge incontinence Family History Family history of problems with anesthesia: No Surgical History Surgical History History of colon resection History of esophagogastroduodenoscopy (EGD) Hx of colonoscopy (~10/2018) Hx of cystoscopy Hx of cystoscopy Hx of dilation and curettage Hx of endoscopy History of Problems with Anesthesia: No Social History Social History Household Members: None Housing: Apartment Do you presently have visiting nurse or other home services: No Alcohol intake: never Patient Tobacco Use Status: Never used Tobacco Tobacco use type: Cigarette Years Smoked: 10 Second Hand Smoke Exposure: No Substance Use Type: Marijuana Advance Directives Date on File: 09/17/21 service: No Current occupational status: unemployed and disabled Sexual orientation: Straight/Heterosexual Meds Allergies Allergy/AdvReac Type Severity Reaction Status Date / Time aspirin [ASA] Allergy Intermediate RASH Verified 02/20/23 10:19 azathioprine [From IMURAN] Allergy Intermediate PANCREATIC Verified 02/20/23 10:19 INFLAMMATION ibuprofen [IBUPROFEN] Allergy Intermediate TOLD NOT Verified 02/20/23 10:19 TO TAKE levofloxacin [From LEVAQUIN] Allergy Mild YEAST Verified 02/20/23 10:19 INFECTIONS Home Medications Medication Instructions Recorded Confirmed Last Taken Type clonazepam 1 mg tablet 1 tab PO BEDTIME PRN Sleep 03/22/21 02/20/23 09/07/21 History docusate sodium 100 mg capsule 1 cap PO BID PRN Constipation 03/22/21 02/20/23 09/07/21 History ergocalciferol (vitamin D2) 1,250 1 cap PO WE 03/22/21 02/20/23 09/07/21 History mcg (50,000 unit) capsule montelukast 10 mg tablet 1 tab PO BEDTIME 03/22/21 02/20/23 09/07/21 History multivitamin 1 tab PO QAM 03/22/21 02/20/23 09/07/21 History topiramate 100 mg tablet 1 tab PO BID 03/22/21 02/20/23 09/07/21 History albuterol sulfate 2.5 mg/3 mL 1 amp inhalation Q6H PRN Wheezing 06/13/21 02/20/23 09/07/21 History (0.083 %) solution for nebulization albuterol sulfate 90 mcg/actuation 2 puff PO QID PRN Dyspnea 06/13/21 02/20/23 09/07/21 History aerosol inhaler (ProAir HFA) apixaban 5 mg tablet (Eliquis) 5 mg PO BID 06/13/21 02/20/23 09/24/21 History esomeprazole magnesium 20 mg 1 cap PO QAM PRN Acid Reflux 06/13/21 02/20/23 09/07/21 History capsule,delayed release buspirone 5 mg tablet 1 tab PO DAILY 06/25/21 02/20/23 09/07/21 History calcium carbonate 600 mg-vitamin 1 tab PO BID 06/25/21 02/20/23 09/07/21 History D3 10 mcg (400 unit) tablet hydroxyzine HCl 25 mg tablet 1 - 2 tab PO TID PRN Anxiety 06/25/21 02/20/23 09/07/21 History lidocaine 4 % topical patch 1 patch topical DAILY PRN 06/25/21 02/20/23 09/07/21 History Breakthrough Pain budesonide-formoterol HFA 160 2 puff PO DAILY 09/08/21 02/20/23 09/07/21 History mcg-4.5 mcg/actuation aerosol inhaler (Symbicort) baclofen 20 mg tablet 20 mg PO TID 01/28/22 02/20/23 Unknown History gabapentin 100 mg capsule 100 mg PO BID 01/28/22 02/20/23 Unknown History Exam Exam Date and Time: May 15, 2023 1212 Height,Weight and Vital Signs: Height 5 ft 3 in Weight 79.832 kg Assessment and Plan Final Anesthetic Review Family History of Problems with Anesthesia: No History of Problems with Anesthesia: No
[2023-08-07 11:35] VITALS: BMI 31.9
--- NOTE | 2023-08-08 10:10 | P.CONAN_ITS ---
Documented by User: Caroline Chung NP 08/08/23 10:12 HPI - Anesthesia Eval Consult details Narrative: 52yo F for Colonoscopy Eliquis for hx PE Methotrex and immunologic for RA PMFSH Active Problems Active Problems: All Active Problems (Updated 08/07/23 @ 11:15 by Georgiana Ernst RN) Chronic constipation (Acute) History of colon resection (Acute) Stricture of colon (Acute) UTI (urinary tract infection) (Acute) Syncope, vasovagal (Acute) Chronic headache (Acute) Asthma (Acute) Vitamin D deficiency (Acute) Urge incontinence (Acute) Crohn's colitis (Acute) Depression (Acute) Past Medical History Medical History (Updated 08/07/23 @ 11:15 by Georgiana Ernst RN) Urge incontinence Normocytic anemia Anxiety Sleep apnea Asthma GERD (gastroesophageal reflux disease) Pulmonary embolism Crohn's disease PTSD (post-traumatic stress disorder) Recurrent major depression-severe Crohn's colitis Hyperlipidemia Hemorrhagic cyst of ovary Kidney stones Depression Iron deficiency anemia Rheumatoid arthritis Migraine Cancer HTN (hypertension) Family History Family history of problems with anesthesia: No Surgical History Surgical History (Updated 08/07/23 @ 11:15 by Georgiana Ernst RN) History of colon resection Hx of dilation and curettage Hx of cystoscopy Hx of cystoscopy Hx of colonoscopy (~10/2018) Hx of endoscopy History of Problems with Anesthesia: No Social History Social History Household Members: None Housing: Apartment Do you presently have visiting nurse or other home services: No Alcohol intake: never Patient Tobacco Use Status: Never used Tobacco Tobacco use type: Cigarette Years Smoked: 10 Second Hand Smoke Exposure: No Substance Use Type: Marijuana Advance Directives: No Advance Directives Information Provided: Yes Advance Directives Date on File: 09/17/21 service: No Current occupational status: unemployed and disabled Sexual orientation: Straight/Heterosexual Meds Allergies Allergy/AdvReac Type Severity Reaction Status Date / Time aspirin [ASA] Allergy Intermediate RASH Verified 06/16/23 11:41 azathioprine [From IMURAN] Allergy Intermediate PANCREATIC Verified 06/16/23 11:41 INFLAMMATION ibuprofen [IBUPROFEN] Allergy Intermediate TOLD NOT Verified 06/16/23 11:41 TO TAKE levofloxacin [From LEVAQUIN] Allergy Mild YEAST Verified 06/16/23 11:41 INFECTIONS Home Medications Medication Instructions Recorded Confirmed Last Taken Type clonazepam 1 mg tablet 1 tab PO BEDTIME PRN Sleep 03/22/21 06/16/23 09/07/21 History docusate sodium 100 mg capsule 1 cap PO BID PRN Constipation 03/22/21 06/16/23 09/07/21 History ergocalciferol (vitamin D2) 1,250 1 cap PO WE 03/22/21 06/16/23 09/07/21 History mcg (50,000 unit) capsule montelukast 10 mg tablet 1 tab PO BEDTIME 03/22/21 06/16/23 09/07/21 History multivitamin 1 tab PO QAM 03/22/21 06/16/23 09/07/21 History topiramate 100 mg tablet 1 tab PO BID 03/22/21 06/16/23 09/07/21 History albuterol sulfate 2.5 mg/3 mL 1 amp inhalation Q6H PRN Wheezing 06/13/21 06/16/23 09/07/21 History (0.083 %) solution for nebulization albuterol sulfate 90 mcg/actuation 2 puff PO QID PRN Dyspnea 06/13/21 06/16/23 09/07/21 History aerosol inhaler (ProAir HFA) apixaban 5 mg tablet (Eliquis) 5 mg PO BID 06/13/21 06/16/23 09/24/21 History esomeprazole magnesium 20 mg 1 cap PO QAM PRN Acid Reflux 06/13/21 06/16/23 09/07/21 History capsule,delayed release buspirone 5 mg tablet 1 tab PO DAILY 06/25/21 06/16/23 09/07/21 History calcium carbonate 600 mg-vitamin 1 tab PO BID 06/25/21 06/16/23 09/07/21 History D3 10 mcg (400 unit) tablet hydroxyzine HCl 25 mg tablet 1 - 2 tab PO TID PRN Anxiety 06/25/21 06/16/23 09/07/21 History lidocaine 4 % topical patch 1 patch topical DAILY PRN 06/25/21 06/16/23 09/07/21 History Breakthrough Pain budesonide-formoterol HFA 160 2 puff PO DAILY 09/08/21 06/16/23 09/07/21 History mcg-4.5 mcg/actuation aerosol inhaler (Symbicort) baclofen 20 mg tablet 20 mg PO TID 01/28/22 06/16/23 Unknown History gabapentin 100 mg capsule 100 mg PO BID 01/28/22 06/16/23 Unknown History Exam Height,Weight and Vital Signs: Height 5 ft 3 in Weight 81.647 kg Pertinent Lab Results Pertinent Lab Results: Laboratory Tests 04/25/23 04/25/23 04/25/23 14:13 14:16 14:16 WBC 7.1 Hgb 12.8 Hct 39.6 Plt Count 231 Sodium 138 Potassium 4.0 Chloride 108 Carbon Dioxide 21 L BUN 15 Creatinine 0.84 05/29/23 10:10 WBC 6.9 Hgb 11.7 L Hct 37.4 Plt Count 229 Sodium 141 Potassium 3.9 Chloride 108 Carbon Dioxide 23 BUN 15 Creatinine 0.82 Assessment and Plan Assessment Anesthesia Assessment: Chart Reviewed Final Anesthetic Review Family History of Problems with Anesthesia: No History of Problems with Anesthesia: No Documented by User: Krista Perez MD 08/11/23 09:30 [facility] Past Medical History Medical History (Updated 08/07/23 @ 11:15 by Georgiana Ernst RN) Urge incontinence Normocytic anemia Anxiety Sleep apnea Asthma GERD (gastroesophageal reflux disease) Pulmonary embolism Crohn's disease PTSD (post-traumatic stress disorder) Recurrent major depression-severe Crohn's colitis Hyperlipidemia Hemorrhagic cyst of ovary Kidney stones Depression Iron deficiency anemia Rheumatoid arthritis Migraine Cancer HTN (hypertension) Surgical History Surgical History (Updated 08/07/23 @ 11:15 by Georgiana Ernst RN) History of colon resection Hx of dilation and curettage Hx of cystoscopy Hx of cystoscopy Hx of colonoscopy (~10/2018) Hx of endoscopy Social History Social History Household Members: None Housing: Apartment Do you presently have visiting nurse or other home services: No Alcohol intake: never Patient Tobacco Use Status: Never used Tobacco Tobacco use type: Cigarette Years Smoked: 10 Second Hand Smoke Exposure: No Substance Use Type: Marijuana Advance Directives: No Advance Directives Information Provided: Yes Advance Directives Date on File: 09/17/21 service: No Current occupational status: unemployed and disabled Sexual orientation: Straight/Heterosexual Meds Allergies Allergy/AdvReac Type Severity Reaction Status Date / Time aspirin [ASA] Allergy Intermediate RASH Verified 06/16/23 11:41 azathioprine [From IMURAN] Allergy Intermediate PANCREATIC Verified 06/16/23 11:41 INFLAMMATION ibuprofen [IBUPROFEN] Allergy Intermediate TOLD NOT Verified 06/16/23 11:41 TO TAKE levofloxacin [From LEVAQUIN] Allergy Mild YEAST Verified 06/16/23 11:41 INFECTIONS Home Medications Medication Instructions Recorded Confirmed Last Taken Type clonazepam 1 mg tablet 1 tab PO BEDTIME PRN Sleep 03/22/21 06/16/23 09/07/21 History docusate sodium 100 mg capsule 1 cap PO BID PRN Constipation 03/22/21 06/16/23 09/07/21 History ergocalciferol (vitamin D2) 1,250 1 cap PO WE 03/22/21 06/16/23 09/07/21 History mcg (50,000 unit) capsule montelukast 10 mg tablet 1 tab PO BEDTIME 03/22/21 06/16/23 09/07/21 History multivitamin 1 tab PO QAM 03/22/21 06/16/23 09/07/21 History topiramate 100 mg tablet 1 tab PO BID 03/22/21 06/16/23 09/07/21 History albuterol sulfate 2.5 mg/3 mL 1 amp inhalation Q6H PRN Wheezing 06/13/21 06/16/23 09/07/21 History (0.083 %) solution for nebulization albuterol sulfate 90 mcg/actuation 2 puff PO QID PRN Dyspnea 06/13/21 06/16/23 09/07/21 History aerosol inhaler (ProAir HFA) apixaban 5 mg tablet (Eliquis) 5 mg PO BID 06/13/21 06/16/23 09/24/21 History esomeprazole magnesium 20 mg 1 cap PO QAM PRN Acid Reflux 06/13/21 06/16/23 09/07/21 History capsule,delayed release buspirone 5 mg tablet 1 tab PO DAILY 06/25/21 06/16/23 09/07/21 History calcium carbonate 600 mg-vitamin 1 tab PO BID 06/25/21 06/16/23 09/07/21 History D3 10 mcg (400 unit) tablet hydroxyzine HCl 25 mg tablet 1 - 2 tab PO TID PRN Anxiety 06/25/21 06/16/23 09/07/21 History lidocaine 4 % topical patch 1 patch topical DAILY PRN 06/25/21 06/16/23 09/07/21 History Breakthrough Pain budesonide-formoterol HFA 160 2 puff PO DAILY 09/08/21 06/16/23 09/07/21 History mcg-4.5 mcg/actuation aerosol inhaler (Symbicort) baclofen 20 mg tablet 20 mg PO TID 01/28/22 06/16/23 Unknown History gabapentin 100 mg capsule 100 mg PO BID 01/28/22 06/16/23 Unknown History Exam Airway Mallampati Class: II TM Dist: >3cm Neck ROM: Full Heart: rrr Lungs: cta Assessment and Plan Assessment Anesthesia Assessment: Anesthesia Plan Discussed Final Anesthetic Review NPO: Yes ASA Class: III Final Preanesthetic Review: No Changes in Pt Med Stat, Meds/Allgs Chart Reviewed and Consent Obtained/Reviewed Patient Risk: Intermediate Procedure Risk: Intermediate Anesthetic Plan Anesthetic Plan: MAC: Disposition: Standard PACU
--- NOTE | 2023-08-11 09:12 | MHC.SHP ---
Pre-Procedural Eval Section A Date of Service: 08/11/23 The patient is an INPATIENT: No The History & Physical has been completed within 30 days and I have reviewed it.: No Section B Chief Complaint: Surveillance for Crohn's disease Relevant Family History (Specify if Yes): No Relevant Social History: None Present Medications: see Short Stay Collaborative assessment Medical History: Significant History (Asthma Cancer Crohn's colitis Crohn's disease Depression Depression GERD (gastroesophageal reflux disease) Hemorrhagic cyst of ovary HTN (hypertension) Hyperlipidemia Iron deficiency anemia Kidney stones Migraine Normocytic anemia PTSD (post-traumatic stress disorder) Pulmonary emboli Pulmonary embo) History of Previous Operations: Relevant previous surgery/procedure and date(s) (History of esophagogastroduodenoscopy (EGD) History of colon resection Hx of dilation and curettage Hx of cystoscopy Hx of cystoscopy Hx of colonoscopy (~10/2018)) Allergies: Allergies Allergy/AdvReac Type Severity Reaction Status Date / Time aspirin [ASA] Allergy Intermediate RASH Verified 06/16/23 11:41 azathioprine [From IMURAN] Allergy Intermediate PANCREATIC Verified 06/16/23 11:41 INFLAMMATION ibuprofen [IBUPROFEN] Allergy Intermediate TOLD NOT Verified 06/16/23 11:41 TO TAKE levofloxacin [From LEVAQUIN] Allergy Mild YEAST Verified 06/16/23 11:41 INFECTIONS Plan Diagnosis/Plan: Unchanged I have reviewed the history and physical and performed a pertinent physical examination on my patient. No changes have occurred unless specified. Time Spent With Patient Time: Total time managing care of this patient today ____ minutes.
[2023-08-11] MEDS: Methylene Blue 50 MG/10 ML AMPUL IV (09:15)
[2023-08-11 09:16] VITALS: BP 124/65; PULSE 57; RESP 18; TEMP 36.6; O2SAT 98
[2023-08-11] MEDS: Lactated Ringers 1,000 ML 100 ML IVCONT (09:41)
--- NOTE | 2023-08-11 09:42 | W.PM.OPN ---
Operative Note Operative Note Date of Service: 08/11/23 Narrative: COLONOSCOPY TILL CECUM WITH CHROMOENDOSCOPY AND BIOPSIES Pre-op diagnosis: Surveillance for Crohn's disease Post-op diagnosis:? Inactive Crohn's disease Endoscopist:? Libby Palafox MD Anesthesia:?MAC Consent: Indications for the procedure and potential complications of bleeding, perforation, reaction to medications and missed diagnosis were discussed with the patient and informed consent was obtained. Instrument: Olympus PCF H 190 L variable stiffness pediatric colonoscope Monitoring: Vital signs and clinical assessment, intermittent blood pressure monitoring, continuous EKG monitoring, Pulse oximetry and Carbon Dioxide monitoring were done throughout the procedure. Please see anesthesia flowsheet. Colon withdrawl time was 25 minutes. Procedure: The patient was placed in the left lateral decubitis position and pre-procedure medications were administered. After a digital rectal examination of the ano-rectum, the video colonoscope was inserted into the rectum and advanced through the colon to the cecum. The colonoscope was slowly withdrawn in a retrograde panoramic fashion and the colon mucosa was carefully examined with chromoendoscopy (methylene blue) including a retroflexed view of the rectum. Findings and interventions are described below. Procedure Difficulty: Without difficulty Findings: Terminal Ileum: Distal 10 cm was examined and appeared normal Cecum: Inactive Crohn's disease throughout the colon Ascending Colon: Inactive Crohn's disease throughout the colon Transverse Colon: Inactive Crohn's disease throughout the colon Descending Colon: Inactive Crohn's disease throughout the colon Sigmoid Colon: Normal anatomosis at 10 cms. Inactive Crohn's disease throughout the colon Rectum: Normal Ano-rectum: Normal Colon preparation: Good Impression and Post Procedure Diagnosis: Colonoscopy Findings: No polyps were detected Inactive Crohn's disease throughout the colon - random biopsies were obtained. Plan: Await pathology results Patient has an appointment on 08/28/23 in the GI Clinic with Libby Palafox M.D. Repeat Colonoscopy interval based on path results - in 2-3 years if no dysplasia on biopsies. Above findings were reviewed with the patient.
[2023-08-11 10:09] VITALS: BP 97/56; PULSE 53; RESP 16; TEMP 36.8; O2SAT 99
[2023-08-11 10:24] VITALS: BP 111/64; PULSE 59; RESP 16; TEMP 36.8; O2SAT 99
== END 2023-08-11 10:49 | disposition home or self-care (01) ==
PROVIDERS: PCP General Practice; Visit Provider Internal Medicine Gastroenterology
PROC: 0DJD8ZZ Inspection of Lower Intestinal Tract, Via Natural or Artificial Opening Endoscopic (ICD-10-PCS; CPT 45378; principal; 2023-08-11 10:10)
DX: K50.10 Crohn's disease of large intestine without complications (principal); K57.30 Diverticulosis of large intestine without perforation or abscess without bleeding; I10 Essential (primary) hypertension; E78.5 Hyperlipidemia, unspecified; K21.9 Gastro-esophageal reflux disease without esophagitis; D50.9 Iron deficiency anemia, unspecified; E55.9 Vitamin D deficiency, unspecified; J45.909 Unspecified asthma, uncomplicated; Z90.49 Acquired absence of other specified parts of digestive tract; Z86.711 Personal history of pulmonary embolism; Z79.01 Long term (current) use of anticoagulants; Z79.899 Other long term (current) drug therapy
CPT/HCPCS: 45380; 88305; J2371; J2704; Q9968

== ENCOUNTER → 2023-08-11 09:05 | Outpatient (BNV) | payer MEDICAID, SELFPAY | PROVIDERS: PCP General Practice; Visit Provider Internal Medicine Gastroenterology | DX: K50.10 Crohn's disease of large intestine without complications (principal) | CPT/HCPCS: 45380; 45399 ==

== ENCOUNTER 2023-08-12 11:05 | Outpatient (REF) | payer MEDICAID, SELFPAY | END 2023-08-12 11:06 | disposition home or self-care (01) | LOC: HO.MDS 11:05 | PROVIDERS: Visit Provider Internal Medicine Gastroenterology | DX: K50.10 Crohn's disease of large intestine without complications (principal) | CPT/HCPCS: 96372 ==

== ENCOUNTER 2023-09-08 10:48 | Outpatient (REF) | payer MEDICAID, SELFPAY | END 2023-09-08 10:49 | disposition home or self-care (01) | LOC: HO.MDS 10:48 | PROVIDERS: Visit Provider Internal Medicine Gastroenterology | DX: K50.10 Crohn's disease of large intestine without complications (principal) | CPT/HCPCS: 96372; J3357 ==

== ENCOUNTER 2023-10-09 10:29 | Outpatient (REF) | payer MEDICAID, SELFPAY | END 2023-10-09 10:30 | disposition home or self-care (01) | LOC: HO.MDS 10:29 | PROVIDERS: Visit Provider Internal Medicine Gastroenterology | DX: K50.10 Crohn's disease of large intestine without complications (principal) | CPT/HCPCS: 96372 ==

== ENCOUNTER 2023-11-04 10:57 | Outpatient (REF) | payer MEDICAID, SELFPAY ==
[2023-11-04 11:00] VITALS: BP 98/62; PULSE 84; RESP 18; TEMP 36.8; O2SAT 96; BMI 33.1
[2023-11-04] MEDS: USTEKINUMAB 90 MG/ML SUBCUT (11:13)
== END 2023-11-04 10:58 | disposition home or self-care (01) ==
LOC: HO.MDS 10:57
PROVIDERS: Visit Provider Internal Medicine Gastroenterology
DX: K50.10 Crohn's disease of large intestine without complications (principal)
CPT/HCPCS: 96372

== ENCOUNTER 2023-12-17 09:42 | Outpatient (AMB) | payer MEDICAID, SELFPAY ==
--- NOTE | 2023-12-17 10:03 | MHC.OFFVIS ---
Intake Visit Reasons: Follow up/PVR Intake Note: Patient is present for follow up [facility] Medication: oxybutynin Blood Thinner: apixaban (eliquis) PVR: 0ml's Seam Closer Required: No Accompanied by: Daughter Allergies aspirin [ASA] Allergy (Intermediate, Verified 12/17/23 10:22) RASH azathioprine [From IMURAN] Allergy (Intermediate, Verified 12/17/23 10:22) PANCREATIC INFLAMMATION ibuprofen [IBUPROFEN] Allergy (Intermediate, Verified 12/17/23 10:22) TOLD NOT TO TAKE levofloxacin [From LEVAQUIN] Allergy (Mild, Verified 12/17/23 10:22) YEAST INFECTIONS Medication List - Last Reconciled 12/17/23 by MORGAN Valle acetaminophen 650 mg (2 x 325 mg) PO QID PRN 15 days albuterol sulfate 1 amp inhalation Q6H PRN albuterol sulfate 90 mcg/actuation (ProAir HFA) 2 puffs PO QID PRN amlodipine 2.5 mg PO DAILY apixaban (Eliquis) 5 mg PO BID baclofen 20 mg PO TID budesonide-formoterol 160-4.5 mcg/actuation (Symbicort) 2 puffs PO DAILY buspirone 1 tab PO DAILY calcium carbonate-vitamin D3 600 mg-10 mcg (400 unit) 1 tab PO BID cholecalciferol (vitamin D3) (Vitamin D3) 50 mcg PO QAM clonazepam 1 tab PO BEDTIME PRN docusate sodium 1 cap PO BID PRN esomeprazole magnesium 1 cap PO QAM PRN folic acid 1 mg PO DAILY 60 days gabapentin 100 mg PO BID hydroxyzine HCl 1 - 2 tabs PO TID PRN lidocaine 4% 1 patch topical DAILY PRN melatonin 5 mg PO BEDTIME methotrexate sodium 25 mg PO QWEEK miconazole nitrate 2% 1 appl topical BID PRN montelukast 1 tab PO BEDTIME multivitamin 1 tab PO QAM oxybutynin chloride ER 15 mg PO DAILY 30 days paroxetine HCl 40 mg PO QAM polyethylene glycol 3350 (Miralax) 17 grams PO DAILY 30 days polyethylene glycol 3350 (Miralax) 17 grams PO BID 30 days risperidone 1 mg PO BID topiramate 1 tab PO BID ustekinumab (Stelara) 90 mg subcut Q4W vitamin B complex-folic acid 0.4 mg (B Complex 1 (with folic acid)) 1 tab PO QAM zolpidem 5 mg PO BEDTIME PRN HPI Comments Details: Leesa is a pleasant 52-year-old [place]-speaking female patient of Dr. Wasserman who is accompanied by her daughter at todays visit. She has a PMH of asthma, GERD, PTSD, recurrent major depression, Crohn's disease, hyperlipidemia, iron deficiency anemia, and migraines, and hypertension. She presents to the office today for follow-up of her lower urinary tract symptoms. In discussion with the patient today she reports to be doing and feeling well. She reports be happy with current voiding parameters on 15 mg of oxybutynin daily. She denies any urinary issues or concerns at this time. When asked she denies urinary urgency, urinary frequency, incontinence, nocturia, hematuria, dysuria, foul smelling urine, changes to urinary stream, flank pain, fever, and or chills. In office urinalysis results reviewed with the patient today. PVR 0 mL. She otherwise offers no other issues or concerns at this time. [facility] Medical History Urge incontinence Normocytic anemia Anxiety Sleep apnea Asthma GERD (gastroesophageal reflux disease) Pulmonary embolism Crohn's disease PTSD (post-traumatic stress disorder) Recurrent major depression-severe Crohn's colitis Hyperlipidemia Hemorrhagic cyst of ovary Kidney stones Depression Iron deficiency anemia Rheumatoid arthritis Migraine Cancer HTN (hypertension) Surgical History History of colon resection Hx of dilation and curettage Hx of cystoscopy Hx of cystoscopy Hx of colonoscopy (~10/2018) Hx of endoscopy Social History Household Members: None Housing: Apartment Do you presently have visiting nurse or other home services: No Alcohol intake: never Patient Tobacco Use Status: Never used Tobacco Tobacco use type: Cigarette Years Smoked: 10 Second Hand Smoke Exposure: No Substance Use Type: Marijuana Advance Directives Date on File: 09/17/21 service: No Current occupational status: unemployed and disabled Sexual orientation: Straight/Heterosexual Review of Systems Const Reports no additional complaints Eyes Reports no additional complaints ENT Reports no additional complaints Card Reports as per HPI Resp Reports as per HPI GI Reports as per HPI Reports as per HPI Musc Reports no additional complaints Neuro Reports no additional complaints Psych Reports as per HPI Endo Reports no additional complaints Saul/Lymph Reports no additional complaints Aller/Immun Reports no additional complaints Physical Exam Const General: cooperative, healthy appearing, comfortable, no acute distress, well developed, alert and awake Orientation/consciousness: patient oriented x3 Limitations: no limitations HEENT Head: Yes normal to inspection, Yes normocephalic and Yes atraumatic Ears: hearing grossly normal bilaterally Eyes General: appearance normal, both eyes and all related structures Neck Neck: Yes normal visual inspection and Yes trachea midline Chest Chest palpation & inspection: normal inspection of the chest Resp Effort & Inspection: normal respiratory effort and able to speak in complete sentences Cardio Rate: regular rate GI Inspection: Yes normal to inspection General: Yes no CVA tenderness Back/Spine/Pelvis Back: no CVA tenderness Skin General skin exam: no rashes or lesions noted Neuro General: patient oriented x3 Extrem General: Yes normal to inspection Psych Appearance: grossly normal and well kempt Mental Status: mental status grossly normal Speech and movement: Normal speech and movement present and Clear speech present Affect: normal affect Attitude: cooperative Thought process: Normal thought process present Thought content: Normal thought content present Insight: Fair insight present (Psych) Judgement: Fair judgement present (Psych) Office Procedures Post Void Residual Post Residual Void Post Void Residual (PVR): 0 [id number] Void Residual by ultrasound Results AMB Urinalysis, Automated UA Leukoctes 0 Abbie/uL Last Edit by [employer] on 12/17/23 10:22 UA Nitrite Negative Last Edit by [employer] on 12/17/23 10:22 UA Urobilinogen 0.2 mg/dL Last Edit by [employer] on 12/17/23 10:22 UA Protein 0 mg/dL Last Edit by [employer] on 12/17/23 10:22 UA pH 7.0 Last Edit by [employer] on 12/17/23 10:22 UA Blood 0 Nhan/uL Last Edit by [employer] on 12/17/23 10:22 UA Specific Lewis 1.010 Last Edit by [employer] on 12/17/23 10:22 UA Ketone Negative Last Edit by [employer] on 12/17/23 10:22 UA Bilirubin 0 mg/dL Last Edit by Torsten Ramos on 12/17/23 10:22 UA Glucose 0 mg/dL Last Edit by Torsten Ramos on 12/17/23 10:22 Results Reviewed Results Reviewed: Laboratory Last Values Urine pH (Auto) 7.0 12/17/23 10:15 Specific Lewis (Auto) 1.010 12/17/23 10:15 Urine Protein (Auto) 0 mg/dL 12/17/23 10:15 Glucose (UA)(Auto) 0 mg/dL 12/17/23 10:15 Urine Ketones (Auto) Negative 12/17/23 10:15 Urine Blood (Auto) 0 Nhan/uL 12/17/23 10:15 Urine Nitrite (Auto) Negative 12/17/23 10:15 Urine Bilirubin (Auto) 0 mg/dL 12/17/23 10:15 Urine Urobilinogen (Auto) 0.2 mg/dL 12/17/23 10:15 Leukocyte Esterase (Auto) 0 Abbie/uL 12/17/23 10:15 Assessment & Plan Assessment & Plan (1) Urge incontinence: Code(s): N39.41 - Urge incontinence Category: Medical Plan In office urinalysis results reviewed with the patient today; as noted above. PVR 0 mL. Patient currently denies any bothersome urinary issues or concerns. She reports be happy with current voiding parameters on 15 mg of oxybutynin; will continue; refill provided. Follow-up in 1 year with PVR; or sooner with any issues, concerns, and or questions. Orders: Orders AMB Urinalysis Automated Today Z13.9 - Encounter for screening, unspecified AMB Post Void Residual by ultrasound Today N39.41 - Urge incontinence Medications: Discontinued polyethylene glycol 3350 (Miralax) Discontinued Reason: Duplicate 17 grams PO BID 30 days 1,020 grams 3RF K59.09 - Other constipation Patient Instructions: The patient had an opportunity to ask questions regarding the treatment plan. All questions were answered. Physical exam, labs, and imaging were discussed and reviewed in detail. As well as risks, benefits, and discussion of treatment choices. No major barriers to understanding were identified. The patient expressed understanding and agreement with the above treatment plan. The patient was made aware they should contact our office by phone for worsening of their current condition, the appearance of new symptoms, or with any questions or concerns. Compliance is encouraged with any medications and follow up testing that is ordered. It is a privilege to be allowed the opportunity to participate in? your urological care.? Again, if you have any questions or concerns If you have any questions or concerns please do not hesitate to contact me. The office is [phone]. This note is constructed using voice recognition software. While every effort has been made to ensure accuracy skin toggler errors may have been included. Yours sincerely, MORGAN Valle Coding Level of Care Code Est Pt Level 3 (33335) Diagnoses Urge incontinence N39.41 CPT Codes Post Residual Void - PVR CPT Code: 51096-Xtgi Void Residual by ultrasound ([id number])
== END 2023-12-17 10:27 | disposition home or self-care (01) ==
PROVIDERS: PCP General Practice; Visit Provider Nurse Practitioner Family
DX: N39.41 Urge incontinence (principal); Z13.9 Encounter for screening, unspecified
CPT/HCPCS: 99213

== ENCOUNTER → 2023-12-17 09:42 | Outpatient (BNVA) | payer MEDICAID, SELFPAY | PROVIDERS: PCP General Practice; Visit Provider Nurse Practitioner Family | DX: N39.41 Urge incontinence (principal) | CPT/HCPCS: 51798; 81003; 99212 ==

== ENCOUNTER 2024-01-28 22:22 | Emergency (ER) | payer MEDICAID, SELFPAY ==
--- NOTE | ~2024-01-28 | CT_ITS ---
EXAMINATION: CT ABDOMEN AND PELVIS WITH CONTRAST CLINICAL INFORMATION: 53-year-old female with abdominal pain and history of recent hernia repair with mesh COMPARISON: 06/05/2023 TECHNIQUE: Multidetector volumetric images were obtained from the superior aspect of the liver through the pubic symphysis following administration 85 mL of Omnipaque 350 intravenous contrast. Sagittal and coronal reformatted images were obtained on the technologist's workstation. Oral contrast: No This CT examination was performed using dose optimization techniques as appropriate, variously including the following: *Automated exposure control *Adjustment of mA and/or kV according to patient size (this includes techniques or standardized protocols for targeted exams where dose is matched to indication/reason for exam; i.e. extremities or head) *Use of iterative reconstruction technique DLP: 784 mGy-cm FINDINGS: LUNG BASES: The visualized lung bases are unremarkable. LIVER, GALLBLADDER, AND BILIARY TREE: The liver is normal in size, shape, and attenuation. No focal hepatic lesion or biliary ductal dilatation is present. The gallbladder is unremarkable with no evidence of radiopaque gallstones, gallbladder wall thickening, or obvious pericholecystic inflammatory changes. PANCREAS: Unremarkable. SPLEEN: Unremarkable. ADRENAL GLANDS: Unremarkable. KIDNEYS AND URETERS: The kidneys are normal in size, shape, and attenuation. No hydronephrosis, hydroureter, or calculi seen. No perinephric stranding. BLADDER: Unremarkable. GASTROINTESTINAL TRACT: There are postsurgical changes in the sigmoid area with well-functioning anastomosis. There is moderate amount of fecal debris-containing. No evidence of bowel obstruction. Appendix is not identified. ABDOMINAL WALL: Seen previously right abdominal hernia has been surgically corrected and replaced by 10.6 x 6.7 x 9.2 cm homogeneous, well-circumscribed, encapsulated fluid collection through the deep subcutaneous tissues and anterior abdominal wall in front of the mesh on the right, most likely postsurgical seroma. Seroma is not communicating with the skin surface or abdominal cavity and there is minimal subcutaneous stranding surrounding seroma LYMPH NODES: Normal. VASCULAR: Unremarkable. PELVIC VISCERA: There is trace of fluid in the pelvis uterus is retroverted. OSSEOUS STRUCTURES: Unremarkable. CT/CT abdomen pelvis w IV con IMPRESSION: 1. Large seroma in the anterior abdominal wall in front of the mesh on the right. 2. Postsurgical changes in the sigmoid colon. 3. Trace of fluid in the pelvis, most likely physiologic. Fleischner guidelines were followed.
[2024-01-28 22:25] VITALS: BP 162/94; PULSE 70; O2SAT 96
[2024-01-28 22:31] VITALS: BP 113/71; PULSE 74; RESP 18; TEMP 36.4; O2SAT 97; BMI 29.2
[2024-01-28 22:53] LABS: MANUAL DIFF FLAG NO
[2024-01-28 22:57] LABS: Basophils Absolute Auto 0.1 X10*3/uL (0.0-0.2); Basophils Percent Auto 0.6 % (0-2); Eosinophils Absolute Auto 0.1 X10*3/uL (0.0-0.4); Eosinophils Percent Auto 1.5 % (0-4); Hemoglobin 9.4 g/dl (12.0-16.0); Imm Gran Abs Auto 0.02 X10*3/uL (0.00-0.03); Imm Gran Pct Auto 0.3 % (0.0-0.4); Lymphocytes Percent Auto 25.3 % (20-40); Mean Corpuscular HGB Conc 31.3 g/dl (31.0-35.0); Mean Corpuscular Hemoglobin 24.5 pg (27.0-33.0); Mean Corpuscular Volume 78.3 fL (80.0-98.0); Mean Platelet Volume 11.2 fL (9.4-12.3); Monocytes Absolute Auto 0.4 X10*3/uL (0.1-1.2); Monocytes Percent Auto 4.8 % (2-11); Neutrophils Absolute Auto 5.4 x10*3/uL (2.0-8.3); Neutrophils Percent Auto 67.5 % (45-73); Platelet Count 259 X10*3/uL (160-400); Red Blood Count 3.83 X10*6/uL (4.20-5.50); Red Cell Distribution Width 15.9 % (11.0-16.0)
[2024-01-28 23:10] LABS: Alanine Aminotransferase 17 U/L (0-31); Albumin Level 3.9 g/dL (3.5-5.0); Alkaline Phosphatase 98 U/L (39-117); Anion Gap 13 (12-20); Aspartate Amino Transferase 18 U/L (5-31); Bilirubin Direct < 0.2 mg/dL (0.0-0.5); Bilirubin Total 0.1 mg/dL (0.0-1.0); Blood Urea Nitrogen 22 mg/dL (9-16); Carbon Dioxide 23 mmol/L (22-29); Chloride 107 mmol/L (96-108); Estimated Glomerular Filt Rate 47; Glucose Random 88 mg/dL (60-115); Lipase 34 U/L (8-78); Potassium 3.8 mmol/L (3.3-5.1); Sodium 139 mmol/L (135-145); Total Protein 7.5 g/dL (6.5-8.0)
[2024-01-28 23:47] VITALS: BP 126/77; PULSE 71; RESP 18; TEMP 36.9; O2SAT 98
--- NOTE | 2024-01-28 23:50 | MHC.EDTECH ---
Patient ambulated to the bathroom with a steady gait,urine sample obtained and sent to lab,vitals taken
[2024-01-28 23:56] LABS: Appearance Urine Clear; Color Urine Yellow; Glucose Urine UA Negative (Negative); Leukocyte Esterase Urine Negative (Negative); Nitrite Urine Negative (Negative); Urine Blood Negative (Negative); Urine Ketones Negative (Negative); Urine Protein Negative (Neg-Trace)
[2024-01-28 23:57] LABS: UPreg QC Valid YES; Urine Pregnancy NEGATIVE (NEGATIVE)
[2024-01-29 02:09] VITALS: BP 126/89; PULSE 62; RESP 17; TEMP 36.7; O2SAT 99
[2024-01-29 04:00] VITALS: BP 124/85; PULSE 77; RESP 18; TEMP 37; O2SAT 98
--- NOTE | 2024-01-29 05:29 | ED_ITS ---
HPI - Abdominal Pain General Chief Complaint: Abdominal Pain Stated Complaint: abd pain x 6hrs Time Seen by Provider: 01/29/24 00:11 History of Present Illness HPI narrative: Patient is a 53-year-old female presents today with having abdominal pain started approximately 16:00 at night has a history of hernia surgery history of Crohn's disease no nausea no vomiting mild headache pain more in the got epigastric area no fever no chills not related to food no change in bowel movement. patient from home Related Data Home Medications ?Medication ?Instructions ?Recorded ?Confirmed clonazepam 1 mg tablet 1 tab PO BEDTIME PRN Sleep 03/22/21 12/16/23 docusate sodium 100 mg capsule 1 cap PO BID PRN Constipation 03/22/21 12/16/23 montelukast 10 mg tablet 1 tab PO BEDTIME 03/22/21 12/16/23 multivitamin 1 tab PO QAM 03/22/21 12/16/23 topiramate 100 mg tablet 1 tab PO BID 03/22/21 12/16/23 albuterol sulfate 2.5 mg/3 mL 1 amp inhalation Q6H PRN Wheezing 06/13/21 12/16/23 (0.083 %) solution for nebulization albuterol sulfate 90 mcg/actuation 2 puff PO QID PRN Dyspnea 06/13/21 12/16/23 aerosol inhaler (ProAir HFA) apixaban 5 mg tablet (Eliquis) 5 mg PO BID 06/13/21 12/16/23 esomeprazole magnesium 20 mg 1 cap PO QAM PRN Acid Reflux 06/13/21 12/16/23 capsule,delayed release buspirone 5 mg tablet 1 tab PO DAILY 06/25/21 12/16/23 calcium carbonate 600 mg-vitamin 1 tab PO BID 06/25/21 12/16/23 D3 10 mcg (400 unit) tablet hydroxyzine HCl 25 mg tablet 1 - 2 tab PO TID PRN Anxiety 06/25/21 12/16/23 lidocaine 4 % topical patch 1 patch topical DAILY PRN 06/25/21 12/16/23 Breakthrough Pain budesonide-formoterol HFA 160 2 puff PO DAILY 09/08/21 12/16/23 mcg-4.5 mcg/actuation aerosol inhaler (Symbicort) baclofen 20 mg tablet 20 mg PO TID 01/28/22 12/16/23 gabapentin 100 mg capsule 100 mg PO BID 01/28/22 12/16/23 cholecalciferol (vitamin D3) 50 50 mcg PO QAM 12/17/23 mcg (2,000 unit) capsule (Vitamin D3) melatonin 5 mg tablet 5 mg PO BEDTIME 12/17/23 methotrexate sodium 2.5 mg tablet 25 mg PO QWEEK 12/17/23 paroxetine HCl 40 mg tablet 40 mg PO QAM 12/17/23 zolpidem 5 mg tablet 5 mg PO BEDTIME PRN insomnia 12/17/23 Previous Rx's ?Medication ?Instructions ?Recorded risperidone 1 mg tablet 1 mg PO BID #60 tabs 04/04/21 vitamin B complex-folic acid 0.4 1 tab PO QAM #30 tabs 11/09/21 mg tablet (B Complex 1 (with folic acid)) amlodipine 2.5 mg tablet 2.5 mg PO DAILY #30 tabs 11/14/21 acetaminophen 325 mg capsule 650 mg (2 x 325 mg) PO QID PRN 06/10/22 pain 15 days #120 caps miconazole nitrate 2 % topical 1 appl topical BID PRN Yeast 07/22/22 cream infection #28 grams folic acid 1 mg tablet 1 mg PO DAILY 60 days #60 tabs 10/24/22 polyethylene glycol 3350 17 17 g PO DAILY 30 days #510 grams 02/20/23 gram/dose oral powder (Miralax) oxybutynin chloride 15 mg 15 mg PO DAILY 30 days #30 tabs 10/31/23 tablet,extended release 24 hr ustekinumab 90 mg/mL subcutaneous 90 mg subcut Q4W #1 mL 01/20/24 syringe (Stelara) Allergies Allergy/AdvReac Type Severity Reaction Status Date / Time aspirin [ASA] Allergy Intermediate RASH Verified 01/28/24 22:33 azathioprine [From IMURAN] Allergy Intermediate PANCREATIC Verified 01/28/24 22:33 INFLAMMATION ibuprofen [IBUPROFEN] Allergy Intermediate TOLD NOT Verified 01/28/24 22:33 TO TAKE levofloxacin [From LEVAQUIN] Allergy Mild YEAST Verified 01/28/24 22:33 INFECTIONS Review of Systems Review of Systems Positive epigastric pain Yes all other systems are reviewed and are negative PMFSH Past Medical History Attestation statement: The following information was validated with the patient. Medical History Urge incontinence Normocytic anemia Anxiety Sleep apnea Asthma GERD (gastroesophageal reflux disease) Pulmonary embolism Crohn's disease PTSD (post-traumatic stress disorder) Recurrent major depression-severe Crohn's colitis Hyperlipidemia Hemorrhagic cyst of ovary Kidney stones Depression Iron deficiency anemia Rheumatoid arthritis Migraine Cancer HTN (hypertension) Surgical History History of colon resection Hx of dilation and curettage Hx of cystoscopy Hx of cystoscopy Hx of colonoscopy (~10/2018) Hx of endoscopy Social History Social History Household Members: None Housing: Apartment Do you presently have visiting nurse or other home services: No Alcohol intake: never Patient Tobacco Use Status: Never used Tobacco Tobacco use type: Cigarette Years Smoked: 10 Second Hand Smoke Exposure: No Substance Use Type: Marijuana Advance Directives: Yes Advance Directives on File: Yes Advance Directives Date on File: 09/17/21 Do you have a plan to hurt others: No Plan service: No Current occupational status: unemployed and disabled Sexual orientation: Straight/Heterosexual Physical Exam ED Vital Signs: Vital Signs - 24 hr 01/28/24 22:31 01/28/24 23:47 01/29/24 02:09 Temperature 97.5 F 98.4 F 98.0 F Pulse Rate 74 71 62 Respiratory Rate 18 18 17 Blood Pressure 113/71 126/77 126/89 Pulse Oximetry 97 98 99 Oxygen Delivery Method Room Air Room Air Room Air 01/29/24 04:00 01/29/24 06:58 Temperature 98.6 F 98.2 F Pulse Rate 77 58 Respiratory Rate 18 16 Blood Pressure 124/85 152/80 H Pulse Oximetry 98 97 Oxygen Delivery Method Room Air Room Air BMI result Body Mass Index 29.2 Appearance: Alert. Oriented X3. No acute distress. Eyes: Pupils equal, round and reactive to light. ENT: Pharynx normal. Neck: Normal inspection. Neck supple. No lymph nodes noted. No crepitus CVS: Normal heart rate and rhythm. Pulses normal. Normal S1 and S2 Respiratory: No respiratory distress. Breath sounds normal. No Wheezing. No rales Abdomen: Soft and nontender. No rigidity. No distention. good BS x4 Skin: Skin warm and dry. Normal skin color. Normal skin turgor. Extremities: No lower extremity edema. Neurovascular intact to all extremities. No Lacerations. No Rash Neuro: Oriented X 3. No motor deficit. No sensory deficit. Moving all extermities. No slurred speech Medical Decision Making Medical Decision Making MDM Narrative: History of Crohn's history of hernia surgery in the past. Presented today with having abdominal pain. Mostly over the epigastric area. Currently CT scan of the abdomen is pending. Patient given pain medication. Her white count is normal. Her electrolytes are normal. Her urine showed no signs of infection. test was negative Currently pending CT scan of the abdomen. Differential Diagnosis Differential Diagnoses: The differential diagnosis associated with the presentation includes Obstruction, abscess, perforation Admission/Observation Consideration of admission/observation: Escalation of care including admission/observation considered Lab Data 01/28/24 22:49 01/28/24 22:49 Labs: Lab Results 01/28/24 01/28/24 Range/Units 22:49 23:49 WBC 8.0 (4.8-10.8) X10*3/uL RBC 3.83 L (4.20-5.50) X10*6/uL Hgb 9.4 L (12.0-16.0) g/dl Hct 30.0 L (37.0-47.0) % MCV 78.3 L (80.0-98.0) fL MCH 24.5 L (27.0-33.0) pg MCHC 31.3 (31.0-35.0) g/dl RDW 15.9 (11.0-16.0) % Plt Count 259 (160-400) X10*3/uL MPV 11.2 (9.4-12.3) fL Immature Gran % (Auto) 0.3 (0.0-0.4) % Neut % (Auto) 67.5 (45-73) % Lymph % (Auto) 25.3 (20-40) % [place] % (Auto) 4.8 (2-11) % Eos % (Auto) 1.5 (0-4) % Baso % (Auto) 0.6 (0-2) % Lymph # (Auto) 2.0 (1.2-4.9) X10*3/uL [place] # (Auto) 0.4 (0.1-1.2) X10*3/uL Eos # (Auto) 0.1 (0.0-0.4) X10*3/uL Baso # (Auto) 0.1 (0.0-0.2) X10*3/uL Abs Immat Gran (auto) 0.02 (0.00-0.03) X10*3/uL Absolute Neuts (auto) 5.4 (2.0-8.3) x10*3/uL Absolute Nucleated RBC 0.000 (0.0-0.012) X10*3/uL Nucleated RBC % (auto) 0.0 (0.0-0.2) /100WBC Sodium 139 (135-145) mmol/L Potassium 3.8 (3.3-5.1) mmol/L Chloride 107 (96-108) mmol/L Carbon Dioxide 23 (22-29) mmol/L Anion Gap 13 (12-20) BUN 22 H (9-16) mg/dL Creatinine 1.19 (0.5-1.4) mg/dL Estim Creat Clear Calc 53.0 Estimated GFR 47 Random Glucose 88 (60-115) mg/dL Calcium 9.0 (8.4-10.2) mg/dL Total Bilirubin 0.1 (0.0-1.0) mg/dL Direct Bilirubin < 0.2 (0.0-0.5) mg/dL AST 18 (5-31) U/L ALT 17 (0-31) U/L Alkaline Phosphatase 98 (39-117) U/L Total Protein 7.5 (6.5-8.0) g/dL Albumin 3.9 (3.5-5.0) g/dL Lipase 34 (8-78) U/L Urine Color Yellow Urine Appearance Clear Urine pH 6.0 (5.0-9.0) Ur Specific [place] 1.010 (1.005-1.025) Urine Protein Negative (Neg-Trace) mg/dL Urine Glucose (UA) Negative (Negative) mg/dL Urine Ketones Negative (Negative) mg/dL Urine Blood Negative (Negative) Urine Nitrite Negative (Negative) Ur Leukocyte Esterase Negative (Negative) Urine Test NEGATIVE (NEGATIVE) Medications Administered Discontinued Medications Generic Name Dose Route Start Last Admin Trade Name Freq PRN Reason Stop Dose Admin Hydromorphone HCl 0.5 mg 01/29/24 07:08 01/29/24 07:15 Hydromorphone Hcl 0.5 Mg/0.5 Ml Syringe IVPUSH 01/29/24 07:09 0.5 mg ONCE ONE Administration Protocol Discharge Plan Discharge Clinical Impression: Crohn's colitis Patient Disposition: Still a Patient Prescriptions: No Action vitamin B complex-folic acid [B Complex 1 (with folic acid)] 0.4 mg tablet 1 tab PO QAM Qty: 30 2RF acetaminophen 325 mg capsule 650 mg PO QID PRN (Reason: pain) 15 Days Qty: 120 0RF folic acid 1 mg tablet 1 mg PO DAILY 60 Days Qty: 60 3RF Rx Instructions: Take 1 tablet daily oxybutynin chloride 15 mg tablet extended release 24hr 15 mg PO DAILY 30 Days Qty: 30 1RF Stelara 90 mg/mL syringe 90 mg subcut Q4W Qty: 1 3RF multivitamin Tablet 1 tab PO QAM clonazepam 1 mg tablet 1 tab PO BEDTIME PRN (Reason: Sleep) docusate sodium 100 mg capsule 1 cap PO BID PRN (Reason: Constipation) montelukast 10 mg tablet 1 tab PO BEDTIME topiramate 100 mg tablet 1 tab PO BID risperidone 1 mg Tablet 1 mg PO BID Qty: 60 0RF albuterol sulfate 2.5 mg /3 mL (0.083 %) solution for nebulization 1 amp inhalation Q6H PRN (Reason: Wheezing) Eliquis 5 mg tablet 5 mg PO BID Hold Instructions: Resume on 08/12/23. Resume Eliquis on 08/12/23 Rx Instructions: Take 10 mg Eliquis twice daily for 1 week, then take Eliquis 5 mg twice daily for next 3-4 months as per Hematology albuterol sulfate [ProAir HFA] 90 mcg/actuation HFA aerosol inhaler 2 puff PO QID PRN (Reason: Dyspnea) esomeprazole magnesium 20 mg capsule,delayed release(DR/EC) 1 cap PO QAM PRN (Reason: Acid Reflux) hydroxyzine HCl 25 mg tablet 1 - 2 tab PO TID PRN (Reason: Anxiety) calcium carbonate-vitamin D3 600 mg(1,500mg) -400 unit tablet 1 tab PO BID buspirone 5 mg tablet 1 tab PO DAILY lidocaine 4 % Adhesive Patch,Medicated 1 patch TOPICAL DAILY PRN (Reason: Breakthrough Pain) amlodipine 2.5 mg tablet 2.5 mg PO DAILY Qty: 30 0RF miconazole nitrate 2 % cream 1 appl topical BID PRN (Reason: Yeast infection) Qty: 28 0RF budesonide-formoterol [Symbicort] 160-4.5 mcg/actuation HFA aerosol inhaler 2 puff PO DAILY gabapentin 100 mg capsule 100 mg PO BID baclofen 20 mg tablet 20 mg PO TID polyethylene glycol 3350 [Miralax] 17 gram/dose powder 17 g PO DAILY 30 Days Qty: 510 3RF cholecalciferol (vitamin D3) [Vitamin D3] 50 mcg (2,000 unit) capsule 50 mcg PO QAM melatonin 5 mg tablet 5 mg PO BEDTIME paroxetine HCl 40 mg tablet 40 mg PO QAM zolpidem 5 mg tablet 5 mg PO BEDTIME PRN (Reason: insomnia) methotrexate sodium 2.5 mg tablet 25 mg PO QWEEK Print Language: Macedonian
[2024-01-29 06:58] VITALS: BP 152/80; PULSE 58; RESP 16; TEMP 36.8; O2SAT 97
--- NOTE | 2024-01-29 07:07 | PC.NURSE ---
pt is alert and oriented, skin appropriate for ethnicity, respirations even and unlabored, pt reports medial abd pain, denies n/v, abd soft but tender all through out, pt reports having hx of chrons but states this is feeling different.
[2024-01-29] MEDS: HYDROmorphone HCl 0.5 MG/0.5 ML SYRINGE IVPUSH (07:15)
--- NOTE | 2024-01-29 08:30 | PC.NURSE ---
pt is currently asleep, respirations even and unlabored
[2024-01-29] MEDS: Famotidine/PF 20 MG/2 ML VIAL IVPUSH (09:59)
[2024-01-29] MEDS: Magnesium Hydrox/Alum Hydrox 30 ML ORAL.SUSP PO (10:01)
[2024-01-29 10:04] VITALS: BP 133/86; PULSE 60; RESP 18; TEMP 36.8; O2SAT 97
[2024-01-29 10:29] VITALS: BP 133/86; PULSE 60; RESP 18; TEMP 36.8; O2SAT 97
== END 2024-01-29 10:30 | disposition home or self-care (01) ==
PROVIDERS: Emergency Medicine Emergency Medical Services; Emergency Provider Student in an Organized Health Care Education/Training Program
DX: K50.90 Crohn's disease, unspecified, without complications (principal); R10.13 Epigastric pain; R51.9 Headache, unspecified; I10 Essential (primary) hypertension; E78.5 Hyperlipidemia, unspecified; Z86.711 Personal history of pulmonary embolism; Z87.891 Personal history of nicotine dependence; Z79.01 Long term (current) use of anticoagulants
CPT/HCPCS: 36415; 74177; 80048; 80076; 81003; 81025; 83690; 85025; 96374; 96375; 99284; J1170

== ENCOUNTER 2024-02-03 11:02 | Emergency (ER) | payer MEDICAID, SELFPAY ==
[2024-02-03 11:20] VITALS: BP 108/73; PULSE 67; RESP 18; TEMP 36.6; O2SAT 99; BMI 32.3
--- NOTE | 2024-02-03 11:21 | ED.GENADULT ---
HPI - General Adult General Chief complaint: GI Bleed Stated complaint: low BP, dizzy Time Seen by Provider: 02/03/24 16:18 Source: patient Mode of arrival: ambulatory Limitations: language barrier (Greek speaking only, loss control engineer used) History of Present Illness ED Provider: Dr. Jonathon Hinojosa HPI narrative: 53-year-old female with a history of anxiety, sleep apnea, asthma, GERD, pulmonary embolism, Crohn's disease, PTSD, hyperlipidemia, depression, iron deficient anemia, rheumatoid arthritis, migraines, hypertension who presents emergency department for evaluation ?flare-up of Crohn's disease ?x1 week. Patient states that she has been having pain in her epigastric and right upper quadrant area that similar to her Crohn's disease pain. She states the pain is a constant, sharp pain which waxes and wanes in intensity in his 06/03 and is gotten worse over the past 4 days. Patient states that approximately 2 days ago she had 3 days of diarrhea with occasional blood in the stool, 3 times per day but she now states that she feels constipated and has had no bowel movement in 2 days. Patient was seen in the emergency department on 01/29/2024 with similar symptoms. At that time she had a CT scan of the abdomen pelvis with IV contrast which revealed no flare-up of Crohn's disease but she did have a large seroma to her abdominal wall anterior to mesh that was placed 1-1/2 months prior at [facility] by Dr. Garcia. She denied fever but does have shaking chills. She states she has occasional chest pain when her abdominal pain gets worse. She denied shortness of breath or dyspnea on exertion. She had nausea with no vomiting. She had diarrhea which resolved and she has not been constipated for 2 days. Related Data Home Medications ?Medication ?Instructions ?Recorded ?Confirmed clonazepam 1 mg tablet 1 tab PO BEDTIME PRN Sleep 03/22/21 12/16/23 docusate sodium 100 mg capsule 1 cap PO BID PRN Constipation 03/22/21 12/16/23 montelukast 10 mg tablet 1 tab PO BEDTIME 03/22/21 12/16/23 multivitamin 1 tab PO QAM 03/22/21 12/16/23 topiramate 100 mg tablet 1 tab PO BID 03/22/21 12/16/23 albuterol sulfate 2.5 mg/3 mL 1 amp inhalation Q6H PRN Wheezing 06/13/21 12/16/23 (0.083 %) solution for nebulization albuterol sulfate 90 mcg/actuation 2 puff PO QID PRN Dyspnea 06/13/21 12/16/23 aerosol inhaler (ProAir HFA) apixaban 5 mg tablet (Eliquis) 5 mg PO BID 06/13/21 12/16/23 esomeprazole magnesium 20 mg 1 cap PO QAM PRN Acid Reflux 06/13/21 12/16/23 capsule,delayed release buspirone 5 mg tablet 1 tab PO DAILY 06/25/21 12/16/23 calcium carbonate 600 mg-vitamin 1 tab PO BID 06/25/21 12/16/23 D3 10 mcg (400 unit) tablet hydroxyzine HCl 25 mg tablet 1 - 2 tab PO TID PRN Anxiety 06/25/21 12/16/23 lidocaine 4 % topical patch 1 patch topical DAILY PRN 06/25/21 12/16/23 Breakthrough Pain budesonide-formoterol HFA 160 2 puff PO DAILY 09/08/21 12/16/23 mcg-4.5 mcg/actuation aerosol inhaler (Symbicort) baclofen 20 mg tablet 20 mg PO TID 01/28/22 12/16/23 gabapentin 100 mg capsule 100 mg PO BID 01/28/22 12/16/23 cholecalciferol (vitamin D3) 50 50 mcg PO QAM 12/17/23 mcg (2,000 unit) capsule (Vitamin D3) melatonin 5 mg tablet 5 mg PO BEDTIME 12/17/23 methotrexate sodium 2.5 mg tablet 25 mg PO QWEEK 12/17/23 paroxetine HCl 40 mg tablet 40 mg PO QAM 12/17/23 zolpidem 5 mg tablet 5 mg PO BEDTIME PRN insomnia 12/17/23 Previous Rx's ?Medication ?Instructions ?Recorded risperidone 1 mg tablet 1 mg PO BID #60 tabs 04/04/21 vitamin B complex-folic acid 0.4 1 tab PO QAM #30 tabs 11/09/21 mg tablet (B Complex 1 (with folic acid)) amlodipine 2.5 mg tablet 2.5 mg PO DAILY #30 tabs 11/14/21 acetaminophen 325 mg capsule 650 mg (2 x 325 mg) PO QID PRN 06/10/22 pain 15 days #120 caps miconazole nitrate 2 % topical 1 appl topical BID PRN Yeast 07/22/22 cream infection #28 grams folic acid 1 mg tablet 1 mg PO DAILY 60 days #60 tabs 10/24/22 polyethylene glycol 3350 17 17 g PO DAILY 30 days #510 grams 02/20/23 gram/dose oral powder (Miralax) oxybutynin chloride 15 mg 15 mg PO DAILY 30 days #30 tabs 10/31/23 tablet,extended release 24 hr ustekinumab 90 mg/mL subcutaneous 90 mg subcut Q4W #1 mL 01/20/24 syringe (Stelara) dicyclomine 10 mg capsule 10 mg PO BID #20 caps 01/29/24 famotidine 20 mg tablet (Pepcid) 20 mg PO BID PRN abdominal 01/29/24 discomfort #60 tabs ondansetron 4 mg disintegrating 4 mg PO Q6H #14 tabs 01/29/24 tablet acetaminophen 500 mg tablet 500 mg PO Q6H PRN fever or pain 02/03/24 (Tylenol Extra Strength) #30 tabs morphine 15 mg immediate release 15 mg PO Q6H PRN pain #10 tabs 02/03/24 tablet Allergies Allergy/AdvReac Type Severity Reaction Status Date / Time aspirin [ASA] Allergy Intermediate RASH Verified 02/03/24 11:24 azathioprine [From IMURAN] Allergy Intermediate PANCREATIC Verified 02/03/24 11:24 INFLAMMATION ibuprofen [IBUPROFEN] Allergy Intermediate TOLD NOT Verified 02/03/24 11:24 TO TAKE levofloxacin [From LEVAQUIN] Allergy Mild YEAST Verified 02/03/24 11:24 INFECTIONS Review of Systems Review of Systems: Yes all other systems are reviewed and are negative [facility] Past Medical History [facility] Narrative: Social history: She denies tobacco use. She denies alcohol use. She smokes marijuana. Medical History Urge incontinence Normocytic anemia Anxiety Sleep apnea Asthma GERD (gastroesophageal reflux disease) Pulmonary embolism Crohn's disease PTSD (post-traumatic stress disorder) Recurrent major depression-severe Crohn's colitis Hyperlipidemia Hemorrhagic cyst of ovary Kidney stones Depression Iron deficiency anemia Rheumatoid arthritis Migraine Cancer HTN (hypertension) Surgical History History of colon resection Hx of dilation and curettage Hx of cystoscopy Hx of cystoscopy Hx of colonoscopy (~10/2018) Hx of endoscopy Social History Social History Household Members: None Housing: Apartment Do you presently have visiting nurse or other home services: No Alcohol intake: never Patient Tobacco Use Status: Never used Tobacco Tobacco use type: Cigarette Years Smoked: 10 Second Hand Smoke Exposure: No Substance Use Type: Marijuana Advance Directives: Yes Advance Directives on File: Yes Advance Directives Date on File: 09/17/21 service: No Current occupational status: unemployed and disabled Sexual orientation: Straight/Heterosexual Physical Exam ED Vital Signs: Vital Signs - 24 hr 02/03/24 11:20 02/03/24 15:59 02/03/24 16:56 Temperature 97.9 F Pulse Rate 67 61 Respiratory Rate 18 14 16 Blood Pressure 108/73 130/80 Pulse Oximetry 99 97 Oxygen Delivery Method Room Air Room Air 02/03/24 18:38 Temperature 97 F Pulse Rate 60 Respiratory Rate 16 Blood Pressure 116/67 Pulse Oximetry 98 Oxygen Delivery Method Room Air BMI result Body Mass Index 32.3 Vital signs were unremarkable. Exam: General: Awake, alert in no distress, weight 80.1 kg, BMI elevated 32.3 kg per m2 Head: Normocephalic, atraumatic EENT: PERRL, Lids normal, sclera normal, conjunctiva normal, nose normal , ears normal, throat without erythema or exudates Neck: Supple, no adenopathy Lung: breath sounds symmetric, no wheezing, rales or rhonchi Chest: symmetric movement, nontender Heart: regular rate and rhythm, normal S1, S2 no murmurs or rubs Abdomen: soft, moderate right upper quadrant and epigastric tenderness, mild diffuse tenderness, obese, normoactive bowel sounds, no voluntary or involuntary guarding, no rebound Back: no vertebral tenderness, no CVAT Extremities: no deformities, moves all extremities symmetrically Neuro: Awake, alert, oriented, normal speech, cranial nerves intact, moves all extremities symmetrically Psych: Pleasant, cooperative Course Course Course Narrative: This is a Rapid Medical Examination (RME) performed by Earl Norman PA-C in triage. Full HPI, ROS, assessment and treatment plan per primary provider in the Main ED. 53 yo Greek speaking female hx of iron deficiency anemia, asthma, PTSD, depression, RA, PE on Eliquis, GERD, renal stones, HTN, anxiety, rectal bleeding and diarrhea x1 day. admits to bright red blood in the toilet bowl and on the toilet paper when she passes a BM. Currently on Eliquis. reports associated dizziness. no episodes of syncope. denies chest pain, SOB, palpitations, fatigue. well appearing. RRR. lungs cta b/l. skin w/d/i. Plan: labs, coags, obs +/- imaging per primary provider Medications Administered Discontinued Medications Generic Name Dose Route Start Last Admin Trade Name Freq PRN Reason Stop Dose Admin Diphenhydramine HCl 25 mg 02/03/24 16:48 02/03/24 16:56 Diphenhydramine Hcl 50 Mg/Ml Vial IVPUSH 02/03/24 16:49 25 mg ONCE ONE Administration Hydromorphone HCl 1 mg 02/03/24 16:48 02/03/24 16:56 Hydromorphone Hcl 1 Mg/Ml Syringe IVPUSH 02/03/24 16:49 1 mg ONCE STA Administration Protocol Lactated Ringer's 1,000 mls @ 999 mls/hr 02/03/24 17:00 02/03/24 18:22 Lr IV 02/03/24 18:00 Infused .Q1H1M JUANCHO Infusion Ondansetron HCl 4 mg 02/03/24 16:48 02/03/24 16:56 Ondansetron Hcl 4 Mg/2 Ml Vial IVPUSH 02/03/24 16:49 4 mg ONCE ONE Administration Medical Decision Making Medical Decision Making MDM Narrative: 53-year-old female with a history of anxiety, sleep apnea, asthma, GERD, pulmonary embolism, Crohn's disease, PTSD, hyperlipidemia, depression, iron deficient anemia, rheumatoid arthritis, migraines, hypertension who presents emergency department for evaluation ?flare-up of Crohn's disease ?x1 week. She complains of epigastric, right upper quadrant pain which is been constant, waxing waning intensity, 10/10, worse x4 days. Patient had 2-3 days of loose, diarrheal stools 3 times a day with occasional blood in his stool which resolved 2 days prior and she is now constipated. She had chills with no fever. She was seen in the emergency department on 01/29/2024 with similar symptoms, had a CT scan of the abdomen pelvis with IV contrast that did not reveal flare-up of her Crohn's disease but she did have a abdominal wall seroma anterior to mesh status post hernia repair 1.5 months prior at [facility]. Vital signs were normal. Physical examination did reveal moderate right upper quadrant epigastric tenderness with mild diffuse tenderness. Differential diagnosis: ?Includes but is not limited to Crohn's disease flare up, abdominal wall pain secondary to seroma, pancreatitis, diverticulitis, GI bleed, anemia, electrolyte abnormalities Following evaluation was ordered:CBC, CMP, lipase, magnesium, PT/INR, PTT, ESR, CRP, type and screen Patient was initially treated with the following: Dilaudid 1 mg IV, Zofran 4 mg IV, Benadryl 25 mg IV, lactated Ringer's x1 L Course: 19:18 hours My interpretation patient's laboratory evaluation is as follows: WBC was normal 7000. Microcytic anemia with an H&H of 10.3 and 33.2 with MCV of 79-this is chronic. CMP was unremarkable. Lipase was normal. Magnesium was normal. ESR was slightly elevated at 28. CRP slightly elevated 1.03. Patient required a 2nd dose of Dilaudid 1 mg IV and Zofran 4 mg IV At this time I suspect that the patient has a mild flare-up of her Crohn's disease is the cause of her pain. The patient had a CT scan recently and I do not think that she needs a repeat CT scan at this time and I did discuss this with her. Patient was treated with Solu-Medrol 60 mg IV. Patient will be discharged home with a course of prednisone 40 mg x 5 days tapered by 10 mg every 2 days. She was also advised to take Tylenol for pain and for pain not relieved by Tylenol she was prescribed morphine. She was also given a prescription for Zofran 4 mg ODT every 6 hours as needed for nausea and vomiting. She was given printed and verbal instructions and discharged home. She was advised to follow-up with her PCP or vocal performer within 2 days for re-evaluation. Admission/Observation Consideration of admission/observation: Escalation of care including admission/observation considered Lab Data MDM Lab Attestation statement: I reviewed the patient's lab results. 02/03/24 11:47 02/03/24 11:47 Labs: Lab Results 02/03/24 02/03/24 Range/Units 11:47 15:46 WBC 7.0 (4.8-10.8) X10*3/uL RBC 4.20 (4.20-5.50) X10*6/uL Hgb 10.3 L (12.0-16.0) g/dl Hct 33.2 L (37.0-47.0) % MCV 79.0 L (80.0-98.0) fL MCH 24.5 L (27.0-33.0) pg MCHC 31.0 (31.0-35.0) g/dl RDW 17.0 H (11.0-16.0) % Plt Count 274 (160-400) X10*3/uL MPV 10.7 (9.4-12.3) fL Immature Gran % (Auto) 0.3 (0.0-0.4) % Neut % (Auto) 59.5 (45-73) % Lymph % (Auto) 28.9 (20-40) % [place] % (Auto) 8.0 (2-11) % Eos % (Auto) 2.4 (0-4) % Baso % (Auto) 0.9 (0-2) % Lymph # (Auto) 2.0 (1.2-4.9) X10*3/uL [place] # (Auto) 0.6 (0.1-1.2) X10*3/uL Eos # (Auto) 0.2 (0.0-0.4) X10*3/uL Baso # (Auto) 0.1 (0.0-0.2) X10*3/uL Abs Immat Gran (auto) 0.02 (0.00-0.03) X10*3/uL Absolute Neuts (auto) 4.1 (2.0-8.3) x10*3/uL Absolute Nucleated RBC 0.000 (0.0-0.012) X10*3/uL Nucleated RBC % (auto) 0.0 (0.0-0.2) /100WBC ESR 28 H (0-20) MM/HR PT 14.0 H (11.1-13.3) SEC INR 1.2 H (0.9-1.1) APTT 37.6 H (26.0-36.8) SEC Sodium 140 (135-145) mmol/L Potassium 4.1 (3.3-5.1) mmol/L Chloride 111 H (96-108) mmol/L Carbon Dioxide 21 L (22-29) mmol/L Anion Gap 12 (12-20) BUN 16 (9-16) mg/dL Creatinine 0.92 (0.5-1.4) mg/dL Estim Creat Clear Calc 69.3 Estimated GFR > 60 Random Glucose 93 (60-115) mg/dL Calcium 9.2 (8.4-10.2) mg/dL Magnesium 2.2 (1.6-2.6) mg/dL Total Bilirubin 0.1 (0.0-1.0) mg/dL AST 10 (5-31) U/L ALT 10 (0-31) U/L Alkaline Phosphatase 93 (39-117) U/L C-Reactive Protein 1.03 H (< or = 0.50) mg/dL Total Protein 7.9 (6.5-8.0) g/dL Albumin 4.1 (3.5-5.0) g/dL Lipase 27 (8-78) U/L Blood Type A Positive Antibody Screen NEGATIVE Critical Care Time Critical Care Time Critical Care Time: Yes Total Critical Care Time: 45 Attestation: Critical Care: The patient was critically ill with a high probability of imminent or life threatening deterioration. I spent greater than 30 minutes of discontinuous time evaluating the patient,delivering critical care at the bedside, discussing and evaluating pertinent data with consultants. Critical care time does not include time spent performing separately billable procedures or teaching. Total time spent performing critical care was 45 minutes. Discharge Plan Discharge Clinical Impression: Crohn's disease Abdominal pain Qualifiers: Abdominal location: right upper quadrant Qualified Code(s): R10.11 - Right upper quadrant pain Patient Disposition: Home, Self-Care Instructions: Crohn Disease (ED) Additional Instructions: Your blood work was unremarkable. Your inflammatory markers (ESR and CRP) were only mildly elevated. At this time, I believe that your pain is due to a flare-up of her Crohn's disease. Given the fact that you had a CT scan 1 week prior I do not think that you need another CT scan today and we can treat you with steroids and pain medications You received the steroids Solu-Medrol 60 mg IV. I want you to prednisone tomorrow morning. Take prednisone 10 mg pills, 4 pills for 5 days then decrease by 1 pill every 2 days until you complete the prescription. While you ?are taking prednisone, do not take any NSAIDs (Motrin, Advil, ibuprofen, Aleve, naproxen). Take Tylenol (acetaminophen) 2 pills every 6 hours as needed for pain. For pain not relieved by prednisone or Tylenol take morphine 15 mg pills, 1 pill every 6 hours as needed for pain. This medication will make you sleepy, do not drive or work while taking this medication. Morphine is a narcotic medication and can be addicting. If you are concerned about addiction you can ask the pharmacist for less pills or do not get this prescription filled. Follow-up with your doctor in 2 days. Please return to the emergency department if your symptoms get worse or if you develop any symptoms that are concerning to you. Prescriptions: New acetaminophen [Tylenol Extra Strength] 500 mg tablet 500 mg PO Q6H PRN (Reason: fever or pain) Qty: 30 0RF morphine 15 mg tablet 15 mg PO Q6H PRN (Reason: pain) Qty: 10 0RF Rx Instructions: The patient may ask for partial fill; Partial Fill upon patient request. No Action vitamin B complex-folic acid [B Complex 1 (with folic acid)] 0.4 mg tablet 1 tab PO QAM Qty: 30 2RF acetaminophen 325 mg capsule 650 mg PO QID PRN (Reason: pain) 15 Days Qty: 120 0RF folic acid 1 mg tablet 1 mg PO DAILY 60 Days Qty: 60 3RF Rx Instructions: Take 1 tablet daily oxybutynin chloride 15 mg tablet extended release 24hr 15 mg PO DAILY 30 Days Qty: 30 1RF Stelara 90 mg/mL syringe 90 mg subcut Q4W Qty: 1 3RF multivitamin Tablet 1 tab PO QAM clonazepam 1 mg tablet 1 tab PO BEDTIME PRN (Reason: Sleep) docusate sodium 100 mg capsule 1 cap PO BID PRN (Reason: Constipation) montelukast 10 mg tablet 1 tab PO BEDTIME topiramate 100 mg tablet 1 tab PO BID risperidone 1 mg Tablet 1 mg PO BID Qty: 60 0RF albuterol sulfate 2.5 mg /3 mL (0.083 %) solution for nebulization 1 amp inhalation Q6H PRN (Reason: Wheezing) Eliquis 5 mg tablet 5 mg PO BID Hold Instructions: Resume on 08/12/23. Resume Eliquis on 08/12/23 Rx Instructions: Take 10 mg Eliquis twice daily for 1 week, then take Eliquis 5 mg twice daily for next 3-4 months as per Hematology albuterol sulfate [ProAir HFA] 90 mcg/actuation HFA aerosol inhaler 2 puff PO QID PRN (Reason: Dyspnea) esomeprazole magnesium 20 mg capsule,delayed release(DR/EC) 1 cap PO QAM PRN (Reason: Acid Reflux) hydroxyzine HCl 25 mg tablet 1 - 2 tab PO TID PRN (Reason: Anxiety) calcium carbonate-vitamin D3 600 mg(1,500mg) -400 unit tablet 1 tab PO BID buspirone 5 mg tablet 1 tab PO DAILY lidocaine 4 % Adhesive Patch,Medicated 1 patch TOPICAL DAILY PRN (Reason: Breakthrough Pain) amlodipine 2.5 mg tablet 2.5 mg PO DAILY Qty: 30 0RF miconazole nitrate 2 % cream 1 appl topical BID PRN (Reason: Yeast infection) Qty: 28 0RF budesonide-formoterol [Symbicort] 160-4.5 mcg/actuation HFA aerosol inhaler 2 puff PO DAILY famotidine [Pepcid] 20 mg tablet 20 mg PO BID PRN (Reason: abdominal discomfort) Qty: 60 0RF ondansetron 4 mg tablet,disintegrating 4 mg PO Q6H Qty: 14 0RF dicyclomine 10 mg capsule 10 mg PO BID Qty: 20 0RF gabapentin 100 mg capsule 100 mg PO BID baclofen 20 mg tablet 20 mg PO TID polyethylene glycol 3350 [Miralax] 17 gram/dose powder 17 g PO DAILY 30 Days Qty: 510 3RF cholecalciferol (vitamin D3) [Vitamin D3] 50 mcg (2,000 unit) capsule 50 mcg PO QAM melatonin 5 mg tablet 5 mg PO BEDTIME paroxetine HCl 40 mg tablet 40 mg PO QAM zolpidem 5 mg tablet 5 mg PO BEDTIME PRN (Reason: insomnia) methotrexate sodium 2.5 mg tablet 25 mg PO QWEEK Print Language: Greek
[2024-02-03 11:52] LABS: MANUAL DIFF FLAG NO
[2024-02-03 11:54] LABS: Basophils Absolute Auto 0.1 X10*3/uL (0.0-0.2); Basophils Percent Auto 0.9 % (0-2); Eosinophils Absolute Auto 0.2 X10*3/uL (0.0-0.4); Eosinophils Percent Auto 2.4 % (0-4); Hematocrit 33.2 % (37.0-47.0); Hemoglobin 10.3 g/dl (12.0-16.0); Imm Gran Abs Auto 0.02 X10*3/uL (0.00-0.03); Imm Gran Pct Auto 0.3 % (0.0-0.4); Lymphocytes Percent Auto 28.9 % (20-40); Mean Corpuscular Hemoglobin 24.5 pg (27.0-33.0); Mean Platelet Volume 10.7 fL (9.4-12.3); Monocytes Absolute Auto 0.6 X10*3/uL (0.1-1.2); Neutrophils Absolute Auto 4.1 x10*3/uL (2.0-8.3); Neutrophils Percent Auto 59.5 % (45-73); Platelet Count 274 X10*3/uL (160-400)
[2024-02-03 11:58] LABS: INTERNATIONAL NORM RATIO 1.2 (0.9-1.1)
[2024-02-03 12:10] LABS: Alanine Aminotransferase 10 U/L (0-31); Albumin Level 4.1 g/dL (3.5-5.0); Alkaline Phosphatase 93 U/L (39-117); Anion Gap 12 (12-20); Aspartate Amino Transferase 10 U/L (5-31); Bilirubin Total 0.1 mg/dL (0.0-1.0); Blood Urea Nitrogen 16 mg/dL (9-16); Calcium 9.2 mg/dL (8.4-10.2); Carbon Dioxide 21 mmol/L (22-29); Chloride 111 mmol/L (96-108); Creatinine Clr Calc Pharmacy 69.3; Estimated Glomerular Filt Rate > 60; Glucose Random 93 mg/dL (60-115); Lipase 27 U/L (8-78); Magnesium 2.2 mg/dL (1.6-2.6); Potassium 4.1 mmol/L (3.3-5.1); Sodium 140 mmol/L (135-145); Total Protein 7.9 g/dL (6.5-8.0)
[2024-02-03 12:20] LABS: Partial Thromboplastin Time 37.6 SEC (26.0-36.8)
[2024-02-03 15:59] VITALS: BP 130/80; PULSE 61; RESP 14; O2SAT 97
[2024-02-03 16:56] VITALS: RESP 16
[2024-02-03] MEDS: diphenhydrAMINE HCL 50 MG/ML VIAL 25 MG IVPUSH (16:56)
[2024-02-03] MEDS: ondansetron HCL 4 MG/2 ML VIAL IVPUSH ×2 (16:56→19:56)
[2024-02-03] MEDS: HYDROmorphone HCl 1 MG/ML SYRINGE IVPUSH ×2 (16:56→19:57)
[2024-02-03] MEDS: Lactated Ringers 1,000 ML 999 ML IV (16:57)
[2024-02-03 17:08] LABS: C Reactive Protein 1.03 mg/dL (< or = 0.50)
[2024-02-03 17:49] LABS: Erythrocyte Sedimentation Rate 28 MM/HR (0-20)
[2024-02-03 18:38] VITALS: BP 116/67; PULSE 60; RESP 16; TEMP 36.1; O2SAT 98
--- NOTE | 2024-02-03 19:34 | PC.NURSE ---
Assumed care of pt. MD at bedside, language interpreter present. Confirmed plan to medicate and discharge patient. No acute distress noted at this time.
[2024-02-03] MEDS: methylPREDNISolone Sod Succ 125 MG/2 ML VIAL 60 MG IVPUSH (19:57)
[2024-02-03 20:26] VITALS: BP 122/72; PULSE 64; RESP 16; TEMP 36.8; O2SAT 98
== END 2024-02-03 20:27 | disposition home or self-care (01) ==
PROVIDERS: Physician Assistant Medical; Emergency Provider Emergency Medicine Emergency Medical Services; PCP Internal Medicine
DX: K50.90 Crohn's disease, unspecified, without complications (principal); R42 Dizziness and giddiness; R10.11 Right upper quadrant pain; R10.13 Epigastric pain; R11.2 Nausea with vomiting, unspecified; Z79.899 Other long term (current) drug therapy
CPT/HCPCS: 36415; 80053; 83690; 83735; 85025; 85610; 85652; 85730; 86140; 86850; 86900; 86901; 96361; 96374; 96375; 96376; 99284; J1170; J1200; J2405; J2919; J7120

== ENCOUNTER 2024-02-05 08:20 | Emergency (ER) | payer MEDICAID, SELFPAY ==
[2024-02-05] VITALS (8 sets, daily range): BP systolic 139–183; BP diastolic 85–98; PULSE 67–88; RESP 12–19; TEMP 37.1–37.4; O2SAT 95–99; BMI 33.6
--- NOTE | ~2024-02-05 | US_ITS ---
EXAMINATION: US ABDOMEN LIMITED CLINICAL INFORMATION: Reevaluate seroma. Right lower abdominal pain. COMPARISON: CT abdomen pelvis dated 01/29/2024. TECHNIQUE: Real-time imaging of the right lower abdomen was performed. US/US abdomen limited FINDINGS/IMPRESSION: There is a complex cystic lesion measuring 9.4 x 3.2 x 7.9 cm within the subcutaneous tissues of the right lower quadrant. There appears to be an ill-defined tract extending to just under the skin surface.
--- NOTE | 2024-02-05 08:45 | PC.NURSE ---
pt is alert and oriented, skin appropriate for ethnicity, respirations even and unlabored, pt reporting right sided abd pain x3 days with constipation then diarrhea, intermittent blood in the stool pt is on eliquis abd soft but tender on the right sided and bowel sounds hypoactive in all 4 quadrants
--- NOTE | 2024-02-05 09:02 | ED.ABDPAIN ---
HPI - Abdominal Pain General Chief Complaint: Abdominal Pain Stated Complaint: BLOODY STOOL PER EMS Time Seen by Provider: 02/05/24 08:32 Source: patient and EMS Mode of arrival: EMS Limitations: no limitations History of Present Illness ED Provider: Abbey Coppola PA-C HPI narrative: 53-year-old Guinean-speaking female with history of anxiety, asthma, MARISOL, GERD, PE on Eliquis, Crohn's disease on Stelara, PTSD, HLD, iron deficiency anemia, rheumatoid arthritis, migraines, HTN, depression, hx abdominal hernia repair 1.5 mon ago at [facility] w/ Dr. Garcia who presents to the ER from home via EMS for the 3rd time this week for evaluation of right-sided abdominal pain x 1 week and bloody bowel movements x3 today. She was seen here twice this week for abdominal pain - on the she had a CT scan showing a 10 cm seroma however her pain at the time was in the epigastric area and on the left side of her abdomen. On the patient was seen for Crohn's flare? with pain in the right upper quadrant and epigastric area. Was discharged with a prednisone taper and morphine for pain. She has been taking the morphine and prednisone the last 2 days with no improvement. She reports the pain is more located in the right mid and lower abdomen. She had no bowel movements yesterday. She reports having 3 bloody bowel movements this morning. She is nauseous but has not vomited. No fevers. No urinary symptoms. No chest pain or shortness of breath. MD elicited complaint: abdominal pain Pertinent past history: other (Crohn's, recent hernia repair with seroma) Onset (ago): day(s) Pain Consistency: constant Location: RLQ Severity: severe Pain scale (0-10): 10 Quality: stabbing Migration to: no migration Exacerbating factors: eating and movement Context: history of similar episodes Associated symptoms: nausea and chills Related Data Home Medications ?Medication ?Instructions ?Recorded ?Confirmed clonazepam 1 mg tablet 1 tab PO BEDTIME PRN Sleep 03/22/21 12/16/23 docusate sodium 100 mg capsule 1 cap PO BID PRN Constipation 03/22/21 12/16/23 montelukast 10 mg tablet 1 tab PO BEDTIME 03/22/21 12/16/23 multivitamin 1 tab PO QAM 03/22/21 12/16/23 topiramate 100 mg tablet 1 tab PO BID 03/22/21 12/16/23 albuterol sulfate 2.5 mg/3 mL 1 amp inhalation Q6H PRN Wheezing 06/13/21 12/16/23 (0.083 %) solution for nebulization albuterol sulfate 90 mcg/actuation 2 puff PO QID PRN Dyspnea 06/13/21 12/16/23 aerosol inhaler (ProAir HFA) apixaban 5 mg tablet (Eliquis) 5 mg PO BID 06/13/21 12/16/23 esomeprazole magnesium 20 mg 1 cap PO QAM PRN Acid Reflux 06/13/21 12/16/23 capsule,delayed release buspirone 5 mg tablet 1 tab PO DAILY 06/25/21 12/16/23 calcium carbonate 600 mg-vitamin 1 tab PO BID 06/25/21 12/16/23 D3 10 mcg (400 unit) tablet hydroxyzine HCl 25 mg tablet 1 - 2 tab PO TID PRN Anxiety 06/25/21 12/16/23 lidocaine 4 % topical patch 1 patch topical DAILY PRN 06/25/21 12/16/23 Breakthrough Pain budesonide-formoterol HFA 160 2 puff PO DAILY 09/08/21 12/16/23 mcg-4.5 mcg/actuation aerosol inhaler (Symbicort) baclofen 20 mg tablet 20 mg PO TID 01/28/22 12/16/23 gabapentin 100 mg capsule 100 mg PO BID 01/28/22 12/16/23 cholecalciferol (vitamin D3) 50 50 mcg PO QAM 12/17/23 mcg (2,000 unit) capsule (Vitamin D3) melatonin 5 mg tablet 5 mg PO BEDTIME 12/17/23 methotrexate sodium 2.5 mg tablet 25 mg PO QWEEK 12/17/23 paroxetine HCl 40 mg tablet 40 mg PO QAM 12/17/23 zolpidem 5 mg tablet 5 mg PO BEDTIME PRN insomnia 12/17/23 Previous Rx's ?Medication ?Instructions ?Recorded risperidone 1 mg tablet 1 mg PO BID #60 tabs 04/04/21 vitamin B complex-folic acid 0.4 1 tab PO QAM #30 tabs 11/09/21 mg tablet (B Complex 1 (with folic acid)) amlodipine 2.5 mg tablet 2.5 mg PO DAILY #30 tabs 11/14/21 acetaminophen 325 mg capsule 650 mg (2 x 325 mg) PO QID PRN 06/10/22 pain 15 days #120 caps miconazole nitrate 2 % topical 1 appl topical BID PRN Yeast 07/22/22 cream infection #28 grams folic acid 1 mg tablet 1 mg PO DAILY 60 days #60 tabs 10/24/22 polyethylene glycol 3350 17 17 g PO DAILY 30 days #510 grams 02/20/23 gram/dose oral powder (Miralax) oxybutynin chloride 15 mg 15 mg PO DAILY 30 days #30 tabs 10/31/23 tablet,extended release 24 hr ustekinumab 90 mg/mL subcutaneous 90 mg subcut Q4W #1 mL 01/20/24 syringe (Companylara) dicyclomine 10 mg capsule 10 mg PO BID #20 caps 01/29/24 famotidine 20 mg tablet (Pepcid) 20 mg PO BID PRN abdominal 01/29/24 discomfort #60 tabs ondansetron 4 mg disintegrating 4 mg PO Q6H #14 tabs 01/29/24 tablet acetaminophen 500 mg tablet 500 mg PO Q6H PRN fever or pain 02/03/24 (Tylenol Extra Strength) #30 tabs morphine 15 mg immediate release 15 mg PO Q6H PRN pain #10 tabs 02/03/24 tablet prednisone 10 mg tablet 10 mg PO DIRECTED #32 tabs 02/03/24 Allergies Allergy/AdvReac Type Severity Reaction Status Date / Time aspirin [ASA] Allergy Intermediate RASH Verified 02/05/24 08:45 azathioprine [From IMURAN] Allergy Intermediate PANCREATIC Verified 02/05/24 08:45 INFLAMMATION ibuprofen [IBUPROFEN] Allergy Intermediate TOLD NOT Verified 02/05/24 08:45 TO TAKE levofloxacin [From LEVAQUIN] Allergy Mild YEAST Verified 02/05/24 08:45 INFECTIONS PMFSH Past Medical History Medical History Urge incontinence Normocytic anemia Anxiety Sleep apnea Asthma GERD (gastroesophageal reflux disease) Pulmonary embolism Crohn's disease PTSD (post-traumatic stress disorder) Recurrent major depression-severe Crohn's colitis Hyperlipidemia Hemorrhagic cyst of ovary Kidney stones Depression Iron deficiency anemia Rheumatoid arthritis Migraine Cancer HTN (hypertension) Surgical History History of colon resection Hx of dilation and curettage Hx of cystoscopy Hx of cystoscopy Hx of colonoscopy (~10/2018) Hx of endoscopy Social History Social History Household Members: None Housing: Apartment Do you presently have visiting nurse or other home services: No Alcohol intake: never Patient Tobacco Use Status: Never used Tobacco Tobacco use type: Cigarette Years Smoked: 10 Smoked in Last 30 Days: No Second Hand Smoke Exposure: No Use of substances other than those prescribed or required for medical reasons: No Substance Use Type: Marijuana Advance Directives: Yes Advance Directives on File: Yes Advance Directives Date on File: 09/17/21 Do you have a plan to hurt others: No Plan service: No Current occupational status: unemployed and disabled Sexual orientation: Straight/Heterosexual Physical Exam ED Vital Signs: Vital Signs - 24 hr 02/05/24 08:43 02/05/24 08:52 02/05/24 11:45 Temperature 98.9 F 98.7 F Pulse Rate 73 77 Respiratory Rate 18 18 18 Blood Pressure 142/87 H 183/85 H Pulse Oximetry 99 99 Oxygen Delivery Method Room Air Room Air 02/05/24 12:51 02/05/24 14:43 Temperature 98.7 F 98.7 F Pulse Rate 67 67 Respiratory Rate 18 19 Blood Pressure 140/86 H 139/85 Pulse Oximetry 97 95 Oxygen Delivery Method Room Air Room Air BMI result Body Mass Index 33.6 Appearance: Alert. Oriented X3. Appears uncomfortable Head: normocephalic, atraumatic. Eyes: Pupils equal, round and reactive to light. ENT: Pharynx normal. No tonsillar swelling or exudate. Neck: Normal inspection. Neck supple. CVS: Normal heart rate and rhythm. Pulses normal. Respiratory: No respiratory distress. Breath sounds normal. Abdomen: Soft with tenderness of the right lower abdomen with guarding and rebound. Normal active +BS x4 Skin: Skin warm and dry. Normal skin color. Normal skin turgor. No rashes. Extremities: No lower extremity edema. No joint swelling. Neuro/psych: Oriented X 3. No motor deficit. No sensory deficit. CN II-XII intact. Normal speech and cognition. Slow but steady gait Medical Decision Making Medical Decision Making MDM Narrative: 53-year-old [place]inean-speaking female with history of anxiety, asthma, MARISOL, GERD, PE on Eliquis, Crohn's disease on Stelara, PTSD, HLD, iron deficiency anemia, rheumatoid arthritis, migraines, HTN, depression, hx abdominal hernia repair 1.5 mon ago at [facility] w/ Dr. Garcia who presents to the ER from home via EMS for the 3rd time this week for evaluation of right-sided abdominal pain x 1 week and bloody bowel movements x3 today. On examination patient's abdominal examination she has right middle and lower quadrant tenderness with guarding and rebound. Upon review of her previous CT scan this is where her seroma was located. This is most likely the etiology of her pain. [facility] surgeon Dr. Garcia on the phone about her seroma. She states there is no urgent need to drain it at this time, unless there is concern for infection. Patient's leukocytosis is very minimal, 11.2. She has no fever. She has an appointment with the doctor tomorrow in the office. Dr. Garcia recommends pain control and outpatient follow-up, transferred to [facility] for management of pain control if no improvement here. She had 3 bowel movements that were bloody this morning. She has taken prednisone the last 2 days. No evidence of acute colitis or concerning CT scan on 01/28. Patient was given dose of IV morphine and Zofran with minimal improvement in her pain. Her lab workup shows her H&H is stable. IV Dilaudid was ordered for ongoing pain. Abdominal ultrasound ordered to re-evaluate the size of the seroma. It shows the seroma is similar size. 15:50 - While in the ER patient has had recurrent episodes of bloody bowel movements. She states 5 additional bowel movements today. Unable to perform a rectal examination as she has in the hallway. IV steroids given, 60 mg of Solu-Medrol. Patient still has ongoing pain and bloody bowel movements and would like to be transferred to [facility] at this time. Differential Diagnosis Differential Diagnoses: The differential diagnosis associated with the presentation includes Acute blood loss anemia, Crohn's flare, expanding seroma, infected seroma, acute appendicitis Admission/Observation Consideration of admission/observation: Escalation of care including admission/observation considered Consult Healthcare Provider Management of the patient was discussed with: [employer] spoke w/ Dr. Garcia from [facility] - recommending pain control, outpatient follow-up if pain improved, transferred to [facility] if no improvement in her pain Lab Data MDM Lab Attestation statement: I reviewed the patient's lab results. Mild anemia stable from the past 2 checks 02/05/24 09:17 02/05/24 09:17 Labs: Lab Results 02/05/24 02/05/24 Range/Units 09:17 10:47 WBC 11.2 H (4.8-10.8) X10*3/uL RBC 3.99 L (4.20-5.50) X10*6/uL Hgb 9.8 L (12.0-16.0) g/dl Hct 32.0 L (37.0-47.0) % MCV 80.2 (80.0-98.0) fL MCH 24.6 L (27.0-33.0) pg MCHC 30.6 L (31.0-35.0) g/dl RDW 16.8 H (11.0-16.0) % Plt Count 293 (160-400) X10*3/uL MPV 11.3 (9.4-12.3) fL Immature Gran % (Auto) 0.4 (0.0-0.4) % Neut % (Auto) 72.9 (45-73) % Lymph % (Auto) 18.0 L (20-40) % Pike % (Auto) 8.2 (2-11) % Eos % (Auto) 0.1 (0-4) % Baso % (Auto) 0.4 (0-2) % Lymph # (Auto) 2.0 (1.2-4.9) X10*3/uL Pike # (Auto) 0.9 (0.1-1.2) X10*3/uL Eos # (Auto) 0.0 (0.0-0.4) X10*3/uL Baso # (Auto) 0.0 (0.0-0.2) X10*3/uL Abs Immat Gran (auto) 0.05 H (0.00-0.03) X10*3/uL Absolute Neuts (auto) 8.1 (2.0-8.3) x10*3/uL Absolute Nucleated RBC 0.000 (0.0-0.012) X10*3/uL Nucleated RBC % (auto) 0.0 (0.0-0.2) /100WBC ESR 30 H (0-20) MM/HR Sodium 142 (135-145) mmol/L Potassium 4.3 (3.3-5.1) mmol/L Chloride 113 H (96-108) mmol/L Carbon Dioxide 20 L (22-29) mmol/L Anion Gap 13 (12-20) BUN 17 H (9-16) mg/dL Creatinine 0.95 (0.5-1.4) mg/dL Estim Creat Clear Calc 68.5 Estimated GFR > 60 Random Glucose 108 (60-115) mg/dL Calcium 9.2 (8.4-10.2) mg/dL Magnesium 2.2 (1.6-2.6) mg/dL Total Bilirubin 0.1 (0.0-1.0) mg/dL Direct Bilirubin < 0.2 (0.0-0.5) mg/dL AST 14 (5-31) U/L ALT 9 (0-31) U/L Alkaline Phosphatase 86 (39-117) U/L C-Reactive Protein 0.40 (< or = 0.50) mg/dL Total Protein 8.0 (6.5-8.0) g/dL Albumin 4.0 (3.5-5.0) g/dL Lipase 17 (8-78) U/L Urine Color Yellow Urine Appearance Clear Urine pH 7.0 (5.0-9.0) Ur Specific [place] 1.020 (1.005-1.025) Urine Protein Negative (Neg-Trace) mg/dL Urine Glucose (UA) Negative (Negative) mg/dL Urine Ketones Negative (Negative) mg/dL Urine Blood Negative (Negative) Urine Nitrite Negative (Negative) Ur Leukocyte Esterase Negative (Negative) Independent Interpretation I performed an independent interpretation of an: Ultrasound Interpretation: 9 cm seroma/fluid collection seen on ultrasound Radiology Impression Discussion of test interpretation with radiology: I have reviewed the radiologist's reading. Radiologist Impression: EXAMINATION: US ABDOMEN LIMITED CLINICAL INFORMATION: Reevaluate seroma. Right lower abdominal pain. COMPARISON: CT abdomen pelvis dated 01/29/2024. TECHNIQUE: Real-time imaging of the right lower abdomen was performed. US/US abdomen limited FINDINGS/IMPRESSION: There is a complex cystic lesion measuring 9.4 x 3.2 x 7.9 cm within the subcutaneous tissues of the right lower quadrant. There appears to be an ill-defined tract extending to just under the skin surface. External Record Review External record reviewed: Office record, Outpatient record, Prior outpatient labs and Prior outpatient radiology Tests considered The following testing was considered but not selected: CT scan of the abdomen was considered however she just had 1 done on 01/29/2024 Prescription Management I considered prescription management with: Pain Medication and Antibiotic Chronic Conditions Patient?s care impacted by: Other (Crohn's disease) Medications Administered Discontinued Medications Generic Name Dose Route Start Last Admin Trade Name Freq PRN Reason Stop Dose Admin Hydromorphone HCl 1 mg 02/05/24 11:42 02/05/24 12:04 Hydromorphone Hcl 1 Mg/Ml Syringe IVPUSH 02/05/24 11:43 1 mg ONCE ONE Administration Protocol Methylprednisolone Sodium Succinate 60 mg 02/05/24 11:46 02/05/24 12:05 Methylprednisolone Sod Succ 125 Mg/2 Ml Vial IVPUSH 02/05/24 11:47 60 mg ONCE ONE Administration Morphine Sulfate 4 mg 02/05/24 09:19 02/05/24 09:30 Morphine Sulfate 4 Mg/Ml Cartridge IVPUSH 02/05/24 09:20 4 mg ONCE ONE Administration Protocol Ondansetron HCl 4 mg 02/05/24 09:19 02/05/24 09:30 Ondansetron Hcl 4 Mg/2 Ml Vial IVPUSH 02/05/24 09:20 4 mg ONCE ONE Administration Critical Care Time Critical Care Time Critical Care Time: Yes Total Critical Care Time: 48 Attestation: I have personally provided critical care time exclusive of time spent on separately billable procedures. Time includes review of lab data, radiology results, discussion with consultants, and monitoring for potential decompensation. Intervention performed as documented. Discharge Plan Discharge Clinical Impression: Abdominal wall seroma, Crohn's disease Patient Disposition: Still a Patient Prescriptions: No Action vitamin B complex-folic acid [B Complex 1 (with folic acid)] 0.4 mg tablet 1 tab PO QAM Qty: 30 2RF acetaminophen 325 mg capsule 650 mg PO QID PRN (Reason: pain) 15 Days Qty: 120 0RF folic acid 1 mg tablet 1 mg PO DAILY 60 Days Qty: 60 3RF Rx Instructions: Take 1 tablet daily oxybutynin chloride 15 mg tablet extended release 24hr 15 mg PO DAILY 30 Days Qty: 30 1RF Stelara 90 mg/mL syringe 90 mg subcut Q4W Qty: 1 3RF multivitamin Tablet 1 tab PO QAM clonazepam 1 mg tablet 1 tab PO BEDTIME PRN (Reason: Sleep) docusate sodium 100 mg capsule 1 cap PO BID PRN (Reason: Constipation) montelukast 10 mg tablet 1 tab PO BEDTIME topiramate 100 mg tablet 1 tab PO BID risperidone 1 mg Tablet 1 mg PO BID Qty: 60 0RF albuterol sulfate 2.5 mg /3 mL (0.083 %) solution for nebulization 1 amp inhalation Q6H PRN (Reason: Wheezing) Eliquis 5 mg tablet 5 mg PO BID Hold Instructions: Resume on 08/12/23. Resume Eliquis on 08/12/23 Rx Instructions: Take 10 mg Eliquis twice daily for 1 week, then take Eliquis 5 mg twice daily for next 3-4 months as per Hematology albuterol sulfate [ProAir HFA] 90 mcg/actuation HFA aerosol inhaler 2 puff PO QID PRN (Reason: Dyspnea) esomeprazole magnesium 20 mg capsule,delayed release(DR/EC) 1 cap PO QAM PRN (Reason: Acid Reflux) hydroxyzine HCl 25 mg tablet 1 - 2 tab PO TID PRN (Reason: Anxiety) calcium carbonate-vitamin D3 600 mg(1,500mg) -400 unit tablet 1 tab PO BID buspirone 5 mg tablet 1 tab PO DAILY lidocaine 4 % Adhesive Patch,Medicated 1 patch TOPICAL DAILY PRN (Reason: Breakthrough Pain) amlodipine 2.5 mg tablet 2.5 mg PO DAILY Qty: 30 0RF miconazole nitrate 2 % cream 1 appl topical BID PRN (Reason: Yeast infection) Qty: 28 0RF budesonide-formoterol [Symbicort] 160-4.5 mcg/actuation HFA aerosol inhaler 2 puff PO DAILY famotidine [Pepcid] 20 mg tablet 20 mg PO BID PRN (Reason: abdominal discomfort) Qty: 60 0RF ondansetron 4 mg tablet,disintegrating 4 mg PO Q6H Qty: 14 0RF dicyclomine 10 mg capsule 10 mg PO BID Qty: 20 0RF acetaminophen [Tylenol Extra Strength] 500 mg tablet 500 mg PO Q6H PRN (Reason: fever or pain) Qty: 30 0RF morphine 15 mg tablet 15 mg PO Q6H PRN (Reason: pain) Qty: 10 0RF Rx Instructions: The patient may ask for partial fill; Partial Fill upon patient request. prednisone 10 mg tablet 10 mg PO DIRECTED Qty: 32 0RF Rx Instructions: Day 1 through 5 take 4 pills then decrease by 1 pill every 2 days until you complete prescription gabapentin 100 mg capsule 100 mg PO BID baclofen 20 mg tablet 20 mg PO TID polyethylene glycol 3350 [Miralax] 17 gram/dose powder 17 g PO DAILY 30 Days Qty: 510 3RF cholecalciferol (vitamin D3) [Vitamin D3] 50 mcg (2,000 unit) capsule 50 mcg PO QAM melatonin 5 mg tablet 5 mg PO BEDTIME paroxetine HCl 40 mg tablet 40 mg PO QAM zolpidem 5 mg tablet 5 mg PO BEDTIME PRN (Reason: insomnia) methotrexate sodium 2.5 mg tablet 25 mg PO QWEEK Print Language: Guinean
[2024-02-05 09:21] LABS: MANUAL DIFF FLAG NO
[2024-02-05 09:29] LABS: Basophils Percent Auto 0.4 % (0-2); Eosinophils Percent Auto 0.1 % (0-4); Hemoglobin 9.8 g/dl (12.0-16.0); Imm Gran Abs Auto 0.05 X10*3/uL (0.00-0.03); Imm Gran Pct Auto 0.4 % (0.0-0.4); Mean Corpuscular HGB Conc 30.6 g/dl (31.0-35.0); Mean Corpuscular Hemoglobin 24.6 pg (27.0-33.0); Mean Corpuscular Volume 80.2 fL (80.0-98.0); Mean Platelet Volume 11.3 fL (9.4-12.3); Monocytes Absolute Auto 0.9 X10*3/uL (0.1-1.2); Monocytes Percent Auto 8.2 % (2-11); Neutrophils Absolute Auto 8.1 x10*3/uL (2.0-8.3); Neutrophils Percent Auto 72.9 % (45-73); Platelet Count 293 X10*3/uL (160-400); Red Blood Count 3.99 X10*6/uL (4.20-5.50); Red Cell Distribution Width 16.8 % (11.0-16.0); White Blood Count 11.2 X10*3/uL (4.8-10.8)
[2024-02-05] MEDS: ondansetron HCL 4 MG/2 ML VIAL IVPUSH (09:30)
[2024-02-05] MEDS: Morphine Sulfate 4 MG/ML CARTRIDGE IVPUSH (09:30)
[2024-02-05 09:39] LABS: Alanine Aminotransferase 9 U/L (0-31); Alkaline Phosphatase 86 U/L (39-117); Anion Gap 13 (12-20); Aspartate Amino Transferase 14 U/L (5-31); Bilirubin Direct < 0.2 mg/dL (0.0-0.5); Bilirubin Total 0.1 mg/dL (0.0-1.0); Blood Urea Nitrogen 17 mg/dL (9-16); Calcium 9.2 mg/dL (8.4-10.2); Carbon Dioxide 20 mmol/L (22-29); Chloride 113 mmol/L (96-108); Creatinine Clr Calc Pharmacy 68.5; Estimated Glomerular Filt Rate > 60; Glucose Random 108 mg/dL (60-115); Lipase 17 U/L (8-78); Magnesium 2.2 mg/dL (1.6-2.6); Potassium 4.3 mmol/L (3.3-5.1); Sodium 142 mmol/L (135-145)
[2024-02-05 10:08] LABS: Erythrocyte Sedimentation Rate 30 MM/HR (0-20)
[2024-02-05 10:59] LABS: Appearance Urine Clear; Color Urine Yellow; Glucose Urine UA Negative (Negative); Leukocyte Esterase Urine Negative (Negative); Nitrite Urine Negative (Negative); Urine Blood Negative (Negative); Urine Ketones Negative (Negative); Urine Protein Negative (Neg-Trace)
[2024-02-05] MEDS: HYDROmorphone HCl 1 MG/ML SYRINGE IVPUSH ×2 (12:04→16:24)
[2024-02-05] MEDS: methylPREDNISolone Sod Succ 125 MG/2 ML VIAL 60 MG IVPUSH (12:05)
== END 2024-02-05 19:32 | disposition short-term general hospital (02) ==
PROVIDERS: Physician Assistant; Emergency Provider Emergency Medicine; PCP Internal Medicine
DX: L76.34 Postprocedural seroma of skin and subcutaneous tissue following other procedure (principal); K50.90 Crohn's disease, unspecified, without complications; K92.1 Melena; I10 Essential (primary) hypertension; Y83.8 Other surgical procedures as the cause of abnormal reaction of the patient, or of later complication, without mention of misadventure at the time of the procedure; Y92.9 Unspecified place or not applicable
CPT/HCPCS: 36415; 76705; 80048; 80076; 81003; 83690; 83735; 85025; 85652; 86140; 96374; 96375; 96376; 99285; J1170; J2270; J2405; J2919

== ENCOUNTER 2024-02-11 10:16 | Observation (INO) | payer MEDICAID, SELFPAY ==
--- NOTE | ~2024-02-11 | XR_ITS ---
EXAMINATION: XR ABDOMEN KUB CLINICAL INDICATION: Follow-up obstipation COMPARISON: Abdomen CT from 02/11/2024. TECHNIQUE: AP view of the abdomen. FINDINGS: Significant improvement compared to 02/11/2024. There is no longer any prominent fecal material in the colon or rectum. No dilated bowel loops. Multiple metallic tacks of the abdominal wall from mesh placement. A calcification projecting over the left midabdomen corresponds to a calcified mesenteric lymph node. No acute osseous abnormality. XR/XR KUB IMPRESSION: Significant interval improvement. No evidence of constipation/obstipation on this follow-up exam. No bowel obstruction.
--- NOTE | ~2024-02-11 | CT_ITS ---
EXAMINATION: CT ABDOMEN AND PELVIS WITH CONTRAST CLINICAL INFORMATION: Lower abdominal pain, obstipation. History of Crohn disease. COMPARISON: 01/29/2024. TECHNIQUE: Multidetector volumetric images were obtained from the superior aspect of the liver through the pubic symphysis following administration 85 mL of Omnipaque 350 intravenous contrast. Sagittal and coronal reformatted images were obtained on the technologist's workstation. This CT examination was performed using dose optimization techniques as appropriate, variously including the following: *Automated exposure control *Adjustment of mA and/or kV according to patient size (this includes techniques or standardized protocols for targeted exams where dose is matched to indication/reason for exam; i.e. extremities or head) *Use of iterative reconstruction technique DLP: 698 mGy-cm FINDINGS: LUNG BASES: No pulmonary consolidation or pleural effusion. HEPATOBILIARY: Unremarkable. PANCREAS: No edema, pancreatic ductal dilatation or mass. SPLEEN: Normal. ADRENAL GLANDS: Normal. KIDNEYS AND URETERS: Kidneys are normal in size and enhance symmetrically. Small 0.2 cm calyceal stone in the posterior upper pole of the left kidney. No large calculi. No hydroureteronephrosis. BLADDER: Normal. BOWEL AND PERITONEUM: Stomach and small bowel are unremarkable. Large amount of fecal material is present in the colon and rectum. The rectum is distended up to 7.8 cm transverse diameter, transverse colon 6.5 cm and cecum nearly 9 cm diameter. The wall of the rectum is slightly thicker than seen on 01/29/2024 and there is new perirectal edema/inflammatory change. No abscess. ABDOMINAL WALL: Multiple metallic tacks from mesh placement at the anterior abdominal wall. The previously identified seroma in the anterior right abdominal wall has decreased in size with residual fluid measuring 8.1 x 2.6 cm (10.8 x 5.6 cm on 01/29/2024). VASCULATURE: Mild atherosclerosis of the abdominal aorta without aneurysm. Inferior vena cava is unremarkable. LYMPH NODES: No pathologic sized lymph nodes in the abdomen or pelvis. No inguinal lymphadenopathy. PELVIC VISCERA: No uterine or adnexal mass. Small amount of simple-appearing free fluid is present in the lower pelvis. MUSCULOSKELETAL: No acute or suspicious osseous abnormality. Moderate degenerative loss of disc height with osteophyte formation at L5-S1. CT/CT abdomen pelvis w IV con IMPRESSION: * Findings consistent with history of obstipation. A large amount of fecal material is present in the colon and rectum and fecal material appears to have a mildly obstructive effect. The perirectal edema is new compared to 01/29/2024 and suggestive of stercoral proctitis in the setting of constipation/obstipation. No bowel perforation or abscess. * The seroma of the right anterior abdominal wall has decreased in size.
[2024-02-11 10:28] VITALS: BP 172/102; BP 191/83; PULSE 87; PULSE 96; RESP 18; TEMP 36.7; O2SAT 96; O2SAT 97; BMI 33.3
--- NOTE | 2024-02-11 10:48 | ED_ITS ---
HPI - Abdominal Pain General Chief Complaint: Abdominal Pain Stated Complaint: CONSTIPATED X6 DAYS, RECTAL BLEEDING Source: patient, EMS, old records reviewed and pediatric medical assistant Mode of arrival: EMS Limitations: no limitations History of Present Illness ED Provider: HIMANSHU HPI narrative: 53 yo female with chronic constipation, headaches, asthma, UTI, colon stricture, DVT on eliquis, Crohns on Stelara sees Javy, depression here with c/o taking intermittent morphine was just sent to [facility] on 02/04 s/p abdominal pain s/p incisional hernia surgery 12/22/23 and repeat visits to our ED for rectal bleeding, post operative seroma admitted to [facility] 02/04 to 02/06 for I/D of abdominal wall seroma sent home on PO morphine and prednisone taper (was c/o brbpr and rectal pain), she comes back today with c/o 6 days no BM despite OTC bowel regimen and nausea. She has diffuse abdominal pain. This AM she had a hard stool and strained and noted brb from rectum. She did pass gas this AM. MD elicited complaint: abdominal pain Pertinent past history: constipation Onset (ago): day(s) (6) Pain Consistency: constant Location: diffuse Severity: severe Quality: aching and fullness Radiation: none Migration to: no migration Exacerbating factors: eating and movement Relieving factors: nothing Context: history of similar episodes Associated symptoms: nausea, constipation and other (rectal bleeding) Treatments prior to arrival: other (tried different OTC constipation medications does not remember the names) Related Data Home Medications ?Medication ?Instructions ?Recorded ?Confirmed clonazepam 1 mg tablet 1 tab PO BEDTIME PRN Sleep 03/22/21 12/16/23 docusate sodium 100 mg capsule 1 cap PO BID PRN Constipation 03/22/21 12/16/23 montelukast 10 mg tablet 1 tab PO BEDTIME 03/22/21 12/16/23 multivitamin 1 tab PO QAM 03/22/21 12/16/23 topiramate 100 mg tablet 1 tab PO BID 03/22/21 12/16/23 albuterol sulfate 2.5 mg/3 mL 1 amp inhalation Q6H PRN Wheezing 06/13/21 12/16/23 (0.083 %) solution for nebulization albuterol sulfate 90 mcg/actuation 2 puff PO QID PRN Dyspnea 06/13/21 12/16/23 aerosol inhaler (ProAir HFA) apixaban 5 mg tablet (Eliquis) 5 mg PO BID 06/13/21 12/16/23 esomeprazole magnesium 20 mg 1 cap PO QAM PRN Acid Reflux 06/13/21 12/16/23 capsule,delayed release buspirone 5 mg tablet 1 tab PO DAILY 06/25/21 12/16/23 calcium carbonate 600 mg-vitamin 1 tab PO BID 06/25/21 12/16/23 D3 10 mcg (400 unit) tablet hydroxyzine HCl 25 mg tablet 1 - 2 tab PO TID PRN Anxiety 06/25/21 12/16/23 lidocaine 4 % topical patch 1 patch topical DAILY PRN 06/25/21 12/16/23 Breakthrough Pain budesonide-formoterol HFA 160 2 puff PO DAILY 09/08/21 12/16/23 mcg-4.5 mcg/actuation aerosol inhaler (Symbicort) baclofen 20 mg tablet 20 mg PO TID 01/28/22 12/16/23 gabapentin 100 mg capsule 100 mg PO BID 01/28/22 12/16/23 cholecalciferol (vitamin D3) 50 50 mcg PO QAM 12/17/23 mcg (2,000 unit) capsule (Vitamin D3) melatonin 5 mg tablet 5 mg PO BEDTIME 12/17/23 methotrexate sodium 2.5 mg tablet 25 mg PO QWEEK 12/17/23 paroxetine HCl 40 mg tablet 40 mg PO QAM 12/17/23 zolpidem 5 mg tablet 5 mg PO BEDTIME PRN insomnia 12/17/23 Previous Rx's ?Medication ?Instructions ?Recorded risperidone 1 mg tablet 1 mg PO BID #60 tabs 04/04/21 vitamin B complex-folic acid 0.4 1 tab PO QAM #30 tabs 11/09/21 mg tablet (B Complex 1 (with folic acid)) amlodipine 2.5 mg tablet 2.5 mg PO DAILY #30 tabs 11/14/21 acetaminophen 325 mg capsule 650 mg (2 x 325 mg) PO QID PRN 06/10/22 pain 15 days #120 caps miconazole nitrate 2 % topical 1 appl topical BID PRN Yeast 07/22/22 cream infection #28 grams folic acid 1 mg tablet 1 mg PO DAILY 60 days #60 tabs 10/24/22 polyethylene glycol 3350 17 17 g PO DAILY 30 days #510 grams 02/20/23 gram/dose oral powder (Miralax) oxybutynin chloride 15 mg 15 mg PO DAILY 30 days #30 tabs 10/31/23 tablet,extended release 24 hr ustekinumab 90 mg/mL subcutaneous 90 mg subcut Q4W #1 mL 01/20/24 syringe (Stelara) dicyclomine 10 mg capsule 10 mg PO BID #20 caps 01/29/24 famotidine 20 mg tablet (Pepcid) 20 mg PO BID PRN abdominal 01/29/24 discomfort #60 tabs ondansetron 4 mg disintegrating 4 mg PO Q6H #14 tabs 01/29/24 tablet acetaminophen 500 mg tablet 500 mg PO Q6H PRN fever or pain 02/03/24 (Tylenol Extra Strength) #30 tabs morphine 15 mg immediate release 15 mg PO Q6H PRN pain #10 tabs 02/03/24 tablet prednisone 10 mg tablet 10 mg PO DIRECTED #32 tabs 02/03/24 Allergies Allergy/AdvReac Type Severity Reaction Status Date / Time aspirin [ASA] Allergy Intermediate RASH Verified 02/11/24 10:32 azathioprine [From IMURAN] Allergy Intermediate PANCREATIC Verified 02/05/24 08:45 INFLAMMATION ibuprofen [IBUPROFEN] Allergy Intermediate TOLD NOT Verified 02/05/24 08:45 TO TAKE levofloxacin [From LEVAQUIN] Allergy Mild YEAST Verified 02/05/24 08:45 INFECTIONS Review of Systems Review of Systems Constitutional : No Weight loss, No Fever, No Chills ENT/Mouth : No sore throat, No Rhinorrhea Eyes: No Swelling, No Redness Cardiovascular : No Chest Pain, No SOB, NoEdema Respiratory : No Cough, No Sputum, No Wheezing Gastrointestinal : Positive Nausea, no Vomiting, no Diarrhea, positive abdominal Pain, No Hematochezia, No Melena, pos constipation Genitourinary : No Dysuria, No Urinary Frequency, No Hematuria, No Urgency Musculoskeletal : No joint pain, No Myalgias, No Joint Swelling Skin : No Skin Lesions, No rash Neuro : No Weakness, No Numbness, No Dizziness, No Headache Psych : No Anxiety/Panic, No Depression All other systems reviewed and are negative. [facility] Past Medical History Attestation statement: The following information was validated with the patient. Source: old records reviewed Medical History Urge incontinence Normocytic anemia Anxiety Sleep apnea Asthma GERD (gastroesophageal reflux disease) Pulmonary embolism Crohn's disease PTSD (post-traumatic stress disorder) Recurrent major depression-severe Crohn's colitis Hyperlipidemia Hemorrhagic cyst of ovary Kidney stones Depression Iron deficiency anemia Rheumatoid arthritis Migraine Cancer HTN (hypertension) Surgical History History of colon resection Hx of dilation and curettage Hx of cystoscopy Hx of cystoscopy Hx of colonoscopy (~10/2018) Hx of endoscopy Social History Social History Household Members: None Housing: Apartment Do you presently have visiting nurse or other home services: No Alcohol intake: never Patient Tobacco Use Status: Never used Tobacco Tobacco use type: Cigarette Years Smoked: 10 Smoked in Last 30 Days: No Second Hand Smoke Exposure: No Use of substances other than those prescribed or required for medical reasons: No Substance Use Type: Marijuana Advance Directives: Yes Advance Directives on File: Yes Advance Directives Date on File: 09/17/21 service: No Current occupational status: unemployed and disabled Sexual orientation: Straight/Heterosexual Physical Exam ED Vital Signs: Vital Signs - 24 hr 02/11/24 10:28 02/11/24 12:53 Temperature 98.1 F 98.8 F Pulse Rate 87 84 Respiratory Rate 18 15 Blood Pressure 191/83 H 171/92 H Pulse Oximetry 96 96 Oxygen Delivery Method Room Air Room Air BMI result Body Mass Index 33.3 Appearance: Alert. Oriented X3. No acute distress. Eyes: Pupils equal, round and reactive to light. ENT: Pharynx normal. Neck: Normal inspection. Neck supple. CVS: Normal heart rate and rhythm. Pulses normal. Respiratory: No respiratory distress. Breath sounds normal. Abdomen: Soft and diffuse ttp but no rebound, decreased BS, no distention noted. Rectal: hemorrhoids noted, mucosa is inflammed, scant streaks of blood noted on hard firm stool from disimpaction, area is ttp Skin: Skin warm and dry. Normal skin color. Normal skin turgor. Extremities: No lower extremity edema. Neuro: Oriented X 3. No motor deficit. No sensory deficit. Procedures Rectal Disimpaction Time out performed rectal disimpaction: Yes Indication: fecal impaction Procedural Sedation: No Sedation/Analgesia: none Technique: manual disimpaction with gloved finger Result: significant stool output Patient Tolerated Procedure: well and no complications Complications: bleeding (has chronic rectal bleeding no clots nothing brisk blood tinged on stool) Medical Decision Making Medical Decision Making [facility] Narrative: 53 yo female with chronic constipation, headaches, asthma, UTI, colon stricture, DVT on eliquis, Crohns on Stelara sees Javy, depression here with c/o rectal bleeding again, abdominal pain, constipation and nausea at this time will need labs, CT scan, infl markers, IV valium will avoid narcotics given constipation. Dispo per results and CT scan findings this seems to be ongoing complaint for the past 1 month. Differential Diagnosis Differential Diagnoses: The differential diagnosis associated with the presentation includes constipation, crohns, SBO Admission/Observation Consideration of admission/observation: Escalation of care including admission/observation considered has tried multiple medications has nausea stercoral colitis in immunocompromised patient unable to pass stool at home disimpacted gave enema but will need admission for further management Consult Healthcare Provider Management of the patient was discussed with: Hospitalist (will admit) Lab Data [facility] Lab Attestation statement: I reviewed the patient's lab results. 02/11/24 12:00 02/11/24 12:00 Labs: Lab Results 02/11/24 Range/Units 12:00 WBC 13.9 H (4.8-10.8) X10*3/uL RBC 4.42 (4.20-5.50) X10*6/uL Hgb 10.8 L (12.0-16.0) g/dl Hct 34.7 L (37.0-47.0) % MCV 78.5 L (80.0-98.0) fL MCH 24.4 L (27.0-33.0) pg MCHC 31.1 (31.0-35.0) g/dl RDW 17.0 H (11.0-16.0) % Plt Count 302 (160-400) X10*3/uL MPV 11.4 (9.4-12.3) fL Immature Gran % (Auto) 0.4 (0.0-0.4) % Neut % (Auto) 69.2 (45-73) % Lymph % (Auto) 20.1 (20-40) % Garza % (Auto) 9.5 (2-11) % Eos % (Auto) 0.4 (0-4) % Baso % (Auto) 0.4 (0-2) % Lymph # (Auto) 2.8 (1.2-4.9) X10*3/uL Garza # (Auto) 1.3 H (0.1-1.2) X10*3/uL Eos # (Auto) 0.1 (0.0-0.4) X10*3/uL Baso # (Auto) 0.1 (0.0-0.2) X10*3/uL Abs Immat Gran (auto) 0.06 H (0.00-0.03) X10*3/uL Absolute Neuts (auto) 9.6 H (2.0-8.3) x10*3/uL Absolute Nucleated RBC 0.000 (0.0-0.012) X10*3/uL Nucleated RBC % (auto) 0.0 (0.0-0.2) /100WBC ESR 12 (0-20) MM/HR Sodium 140 (135-145) mmol/L Potassium 3.8 (3.3-5.1) mmol/L Chloride 107 (96-108) mmol/L Carbon Dioxide 25 (22-29) mmol/L Anion Gap 12 (12-20) BUN 12 (9-16) mg/dL Creatinine 0.85 (0.5-1.4) mg/dL Estim Creat Clear Calc 79.1 Estimated GFR > 60 Random Glucose 99 (60-115) mg/dL Calcium 9.2 (8.4-10.2) mg/dL Magnesium 2.1 (1.6-2.6) mg/dL Total Bilirubin 0.2 (0.0-1.0) mg/dL Direct Bilirubin < 0.2 (0.0-0.5) mg/dL AST 13 (5-31) U/L ALT 12 (0-31) U/L Alkaline Phosphatase 80 (39-117) U/L C-Reactive Protein 0.17 (< or = 0.50) mg/dL Total Protein 8.1 H (6.5-8.0) g/dL Albumin 4.3 (3.5-5.0) g/dL Lipase 13 (8-78) U/L Urine Color Straw Urine Appearance Clear Urine pH 7.5 (5.0-9.0) Ur Specific [place] 1.015 (1.005-1.025) Urine Protein Negative (Neg-Trace) mg/dL Urine Glucose (UA) Negative (Negative) mg/dL Urine Ketones Negative (Negative) mg/dL Urine Blood Trace (Negative) Urine Nitrite Negative (Negative) Ur Leukocyte Esterase Negative (Negative) Urine RBC 0-2 (0-2) /HPF Urine WBC 0-5 (0-5) /HPF Ur Squamous Epith Cells 0-2 (0-2) /HPF Urine Bacteria None Seen (None Seen) Hyaline Casts 0-2 (0-2) /LPF Independent Interpretation I performed an independent interpretation of an: CT Scan (stercoral colitis) Radiology Impression Discussion of test interpretation with radiology: I have reviewed the radiologist's reading. Independent Historian Clinical information obtained from an independent historian. History obtained from or confirmed by: Other (daughter) External Record Review External record reviewed: Inpatient record and Outpatient record Medications Administered Discontinued Medications Generic Name Dose Route Start Last Admin Trade Name Freq PRN Reason Stop Dose Admin Diazepam 2.5 mg 02/11/24 11:05 02/11/24 11:57 Diazepam 10 Mg/2 Ml Cartridge IVPUSH 02/11/24 11:06 2.5 mg STAT STA Administration Droperidol 1.25 mg 02/11/24 12:54 02/11/24 13:22 Droperidol 5 Mg/2 Ml Vial IVPUSH 02/11/24 12:55 1.25 mg ONCE ONE Administration Sodium Chloride 1,000 mls @ 999 mls/hr 02/11/24 11:05 02/11/24 11:56 Ns IV 02/11/24 12:05 999 mls/hr .Q1H1M ONE Administration Iohexol 100 ml 02/11/24 13:16 02/11/24 13:16 Iohexol 350 Mg/Ml 100 Ml Infus..Btl IV 02/11/24 13:17 85 ml ONCE ONE Administration Ondansetron HCl 4 mg 02/11/24 11:05 02/11/24 11:56 Ondansetron Hcl 4 Mg/2 Ml Vial IVPUSH 02/11/24 11:06 4 mg ONCE ONE Administration Discharge Plan Discharge Clinical Impression: Nausea, Stercoral colitis Constipation Qualifiers: Constipation type: drug induced constipation Qualified Code(s): K59.03 - Drug induced constipation Patient Disposition: Admitted As Inpatient Print Language: Honduran
--- NOTE | 2024-02-11 11:32 | PC.NURSE ---
Pt presents to ED via EMS, reports constipation with no bowel movement X6 days. Reports generalized ABD pain and rectum pain for past week worsening. Pt reports bright red blood from rectum when she wipes today. Denies SOB, cough, CP, fevers, N/V. Alert and oriented, breathing even and unlabored, skin warm and dry.
--- NOTE | 2024-02-11 11:34 | PC.NURSE ---
Pt hard stick, poor venous access. Multiple attempts by multiple RNs. meds late due to waiting for IV access
[2024-02-11] MEDS: ondansetron HCL 4 MG/2 ML VIAL IVPUSH (11:56)
[2024-02-11] MEDS: 0.9 % Sodium Chloride 1,000 ML 999 ML IV (11:56)
[2024-02-11] MEDS: diazePAM 10 MG/2 ML CARTRIDGE 2.5 MG IVPUSH (11:57)
[2024-02-11 12:07] LABS: MANUAL DIFF FLAG NO
[2024-02-11 12:08] LABS: Basophils Absolute Auto 0.1 X10*3/uL (0.0-0.2); Basophils Percent Auto 0.4 % (0-2); Eosinophils Absolute Auto 0.1 X10*3/uL (0.0-0.4); Eosinophils Percent Auto 0.4 % (0-4); Hematocrit 34.7 % (37.0-47.0); Hemoglobin 10.8 g/dl (12.0-16.0); Imm Gran Abs Auto 0.06 X10*3/uL (0.00-0.03); Imm Gran Pct Auto 0.4 % (0.0-0.4); Lymphocytes Absolute Auto 2.8 X10*3/uL (1.2-4.9); Lymphocytes Percent Auto 20.1 % (20-40); Mean Corpuscular HGB Conc 31.1 g/dl (31.0-35.0); Mean Corpuscular Hemoglobin 24.4 pg (27.0-33.0); Mean Corpuscular Volume 78.5 fL (80.0-98.0); Mean Platelet Volume 11.4 fL (9.4-12.3); Monocytes Absolute Auto 1.3 X10*3/uL (0.1-1.2); Monocytes Percent Auto 9.5 % (2-11); Neutrophils Absolute Auto 9.6 x10*3/uL (2.0-8.3); Neutrophils Percent Auto 69.2 % (45-73); Platelet Count 302 X10*3/uL (160-400); Red Blood Count 4.42 X10*6/uL (4.20-5.50); White Blood Count 13.9 X10*3/uL (4.8-10.8)
[2024-02-11 12:10] LABS: Appearance Urine Clear; Color Urine Straw; Glucose Urine UA Negative (Negative); Leukocyte Esterase Urine Negative (Negative); Nitrite Urine Negative (Negative); PH 7.5 (5.0-9.0); Specific Gravity - Urine 1.015 (1.005-1.025); UMIC TRIGGER UACC YES; Urine Blood Trace (Negative); Urine Ketones Negative (Negative); Urine Protein Negative (Neg-Trace)
[2024-02-11 12:23] LABS: Alanine Aminotransferase 12 U/L (0-31); Albumin Level 4.3 g/dL (3.5-5.0); Alkaline Phosphatase 80 U/L (39-117); Anion Gap 12 (12-20); Aspartate Amino Transferase 13 U/L (5-31); Bilirubin Direct < 0.2 mg/dL (0.0-0.5); Bilirubin Total 0.2 mg/dL (0.0-1.0); Blood Urea Nitrogen 12 mg/dL (9-16); C Reactive Protein 0.17 mg/dL (< or = 0.50); Calcium 9.2 mg/dL (8.4-10.2); Carbon Dioxide 25 mmol/L (22-29); Chloride 107 mmol/L (96-108); Creatinine Clr Calc Pharmacy 79.1; Estimated Glomerular Filt Rate > 60; Glucose Random 99 mg/dL (60-115); Lipase 13 U/L (8-78); Magnesium 2.1 mg/dL (1.6-2.6); Potassium 3.8 mmol/L (3.3-5.1); Sodium 140 mmol/L (135-145); Total Protein 8.1 g/dL (6.5-8.0)
[2024-02-11 12:33] LABS: Bacteria Urine None Seen (None Seen); Hyaline Casts Urine 0-2 /LPF (0-2); RBC Urine 0-2 /HPF (0-2); Squamous Epithelial Cell Urine 0-2 /HPF (0-2); WBC Urine 0-5 /HPF (0-5)
[2024-02-11 12:50] LABS: Erythrocyte Sedimentation Rate 12 MM/HR (0-20)
[2024-02-11 12:53] VITALS: BP 171/92; PULSE 84; RESP 15; TEMP 37.1; O2SAT 96
[2024-02-11] MEDS: iohexoL 350 MG/ML 100 ML INFUS..BTL IV (13:16)
[2024-02-11] MEDS: droPERidol 5 MG/2 ML VIAL 1.25 MG IVPUSH (13:22)
[2024-02-11 15:45] VITALS: BP 150/102; PULSE 112; RESP 19; TEMP 37.1; O2SAT 95
--- NOTE | 2024-02-11 15:48 | P.HPHOSP_ITS ---
History of Present Illness Date of Service: 02/11/24 Attending physician on admission: Jatin Kaplan Chief Complaint: constipation 53-year-old female with history of Crohn's, chronic constipation, hypertension, hyperlipidemia, iron deficiency anemia, history of DVT on Eliquis, obstructive sleep apnea compliant with CPAP, asthma presented to the ED earlier today for evaluation of evaluation of diffuse 8-9/10 abdominal pain and no BM x6 days. She was recently admitted at [facility] 02/04-02/06 for I/D of abd wall seroma treated wtih IV abx and dc'd on PO morphine which she has been taking PRN and prednisone taper (due to brbpr and rectal pain). She has been using miralax for bowel regimen. This morning had a small amount of hard stool with brbpr noted. On arrival has been intermittently tachycardic to 112, likely r/t pain and anxiety, VS otherwise stable with htn to 150/102. WBC 13.9. Stable microcytic anemia with H/H 10.8/34.7%. Renal function electrolyte levels normal. CRP 0.17. Urinalysis negative. CT abdomen/pelvis consistent with obstipation with a large amount of fecal material present in the colon rectum and fecal material with mildly obstructive effect. There is perirectal edema suggestive of stercoral proctitis in the setting of constipation/obstipation without bowel perforation or abscess. Seroma of the right anterior abdominal wall decreased in size. In the ED, was manually disimpacted by ED provider and has also been given Fleet enema. Given droperidol and diazepam for pain management as well as p.o. lactulose. Due to the stercoral colitis she was also given 1 g IV ceftriaxone and Flagyl. Review of Systems 2 Review of Systems: Yes all other systems are reviewed and are negative [facility] Medical History Urge incontinence Normocytic anemia Anxiety Sleep apnea Asthma GERD (gastroesophageal reflux disease) Pulmonary embolism Crohn's disease PTSD (post-traumatic stress disorder) Recurrent major depression-severe Crohn's colitis Hyperlipidemia Hemorrhagic cyst of ovary Kidney stones Depression Iron deficiency anemia Rheumatoid arthritis Migraine Cancer HTN (hypertension) Surgical History History of colon resection Hx of dilation and curettage Hx of cystoscopy Hx of cystoscopy Hx of colonoscopy (~10/2018) Hx of endoscopy Social History Household Members: None Housing: Apartment Do you presently have visiting nurse or other home services: No Alcohol intake: never Patient Tobacco Use Status: Never used Tobacco Tobacco use type: Cigarette Years Smoked: 10 Smoked in Last 30 Days: No Second Hand Smoke Exposure: No Use of substances other than those prescribed or required for medical reasons: No Substance Use Type: Marijuana Advance Directives: Yes Advance Directives on File: Yes Advance Directives Date on File: 09/17/21 Nutrition Risks: No Nutritional Risk service: No Current occupational status: unemployed and disabled Sexual orientation: Straight/Heterosexual Meds Allergies Allergy/AdvReac Type Severity Reaction Status Date / Time aspirin [ASA] Allergy Intermediate RASH Verified 02/11/24 10:32 azathioprine [From IMURAN] Allergy Intermediate PANCREATIC Verified 02/05/24 08:45 INFLAMMATION ibuprofen [IBUPROFEN] Allergy Intermediate TOLD NOT Verified 02/05/24 08:45 TO TAKE levofloxacin [From LEVAQUIN] Allergy Mild YEAST Verified 02/05/24 08:45 INFECTIONS Active Medications: Current Medications Acetaminophen (Acetaminophen 325 Mg Tablet) 650 mg PO Q6H PRN PRN Reason: Pain, Mild (Pain Scale 1-3), fever or headache Calcium Carbonate (Calcium Carbonate 750 Mg Tab.Chew) 750 mg PO Q4H PRN PRN Reason: Heartburn Docusate Sodium (Docusate Sodium 100 Mg Capsule) 100 mg PO BID JUANCHO Ceftriaxone Sodium 1 gm/ (Sodium Chloride) 50 mls @ 100 mls/hr IV ONCE ONE Stop: 02/11/24 15:54 Metronidazole (Flagyl) 500 mg in 100 mls @ 100 mls/hr IV ONCE ONE Stop: 02/11/24 16:24 Magnesium Hydroxide (Milk Of Magnesia 30 Ml Oral.Susp) 30 ml PO DAILY PRN PRN Reason: Constipation Melatonin (Melatonin 3 Mg Tablet) 6 mg PO BEDTIME PRN PRN Reason: Insomnia Polyethylene Glycol (Polyethylene Glycol 3350 17 Gm Powd.Pack) 17 gm PO DAILY JUANCHO Senna (Sennosides 8.6 Mg Tablet) 17.2 mg PO BEDTIME JUANCHO Sodium Biphosphate/Sodium Phosphate (Sodium Phosphate,[place]-Dibasic 133 Ml Enema) 133 ml [place] DAILY PRN PRN Reason: constipation Sodium Chloride (0.9 % Sodium Chloride Flush 3 Ml Syringe) 3 ml IVFLUSH QSHIFT [facility] Home Medications ?Medication ?Instructions ?Recorded ?Confirmed ?Last Taken ?Type clonazepam 1 mg tablet 1 tab PO BEDTIME PRN Anxiety 03/22/21 02/11/24 09/07/21 History docusate sodium 100 mg capsule 1 cap PO BID PRN Constipation 03/22/21 02/11/24 09/07/21 History montelukast 10 mg tablet 1 tab PO BEDTIME 03/22/21 12/16/23 09/07/21 History multivitamin 1 tab PO QAM 03/22/21 02/11/24 09/07/21 History topiramate 100 mg tablet 100 mg PO BID 03/22/21 02/11/24 09/07/21 History albuterol sulfate 90 mcg/actuation 2 puff PO Q4H 06/13/21 02/11/24 09/07/21 History aerosol inhaler (ProAir HFA) apixaban 5 mg tablet (Eliquis) 5 mg PO BID 06/13/21 02/11/24 09/24/21 History calcium carbonate 600 mg-vitamin 1 tab PO BID 06/25/21 12/16/23 09/07/21 History D3 10 mcg (400 unit) tablet hydroxyzine HCl 25 mg tablet 1 tab PO BID PRN Anxiety 06/25/21 02/11/24 09/07/21 History lidocaine 4 % topical patch 1 patch topical DAILY PRN 06/25/21 12/16/23 09/07/21 History Breakthrough Pain budesonide-formoterol HFA 160 2 puff PO BID 09/08/21 02/11/24 09/07/21 History mcg-4.5 mcg/actuation aerosol inhaler (Symbicort) gabapentin 100 mg capsule 100 mg PO BID 01/28/22 02/11/24 Unknown History methotrexate sodium 2.5 mg tablet 25 mg PO QWEEK 12/17/23 02/11/24 Unknown History paroxetine HCl 40 mg tablet 40 mg PO QAM 12/17/23 02/11/24 Unknown History zolpidem 5 mg tablet 5 mg PO BEDTIME insomnia 12/17/23 02/11/24 Unknown History acetaminophen 325 mg tablet 650 mg PO Q4H PRN Pain 02/11/24 02/11/24 Unknown History (Tylenol) calcium carbonate 500 mg PO BID 02/11/24 02/11/24 Unknown History carboxymethylcellulose sodium 1 % 1 drp ophthalmic (eye) BID PRN Dry 02/11/24 02/11/24 Unknown History eye liquid gel drops Eye(S) melatonin 3 mg tablet 3 mg PO BEDTIME PRN Sleep 02/11/24 02/11/24 Unknown History oxycodone 5 mg tablet 5 mg PO Q6H PRN moderate pain 02/11/24 02/11/24 Unknown History ustekinumab 90 mg/mL subcutaneous 90 mg subcut Q4W 02/11/24 02/11/24 Unknown History syringe (Stelara) Physical Exam 2 Vital Signs and Narrative: Vital Signs: Last Vital Signs Temp 98.8 F 02/11/24 15:45 Pulse 112 H 02/11/24 15:45 Resp 19 02/11/24 15:45 BP 150/102 H 02/11/24 15:45 Pulse Ox 95 02/11/24 15:45 O2 Del Method Room Air 02/11/24 15:45 BMI result Body Mass Index 33.3 Constitutional - Awake and Alert, No apparent distress Eyes - PERRLA, EOMI Cardiovascular - S1S2, RRR, No edema Respiratory - Normal lung expansion, Normal respiratory effort, No respiratory distress, CTA bilaterally Gastrointestinal - soft with diffuse ttp. ND; +BS; No rebound or guarding Extremities - no calf tenderness bilaterally, no swelling Skin - Warm/Dry Neurological - Alert & oriented x3 Psychological - Appropriate affect Results Labs 02/11/24 12:00 02/11/24 12:00 Labs: Laboratory Results - last 24 hr 02/11/24 12:00 MCV 78.5 L MCH 24.4 L MCHC 31.1 RDW 17.0 H Plt Count 302 MPV 11.4 Immature Gran % (Auto) 0.4 Neut % (Auto) 69.2 Lymph % (Auto) 20.1 [place] % (Auto) 9.5 Eos % (Auto) 0.4 Baso % (Auto) 0.4 Lymph # (Auto) 2.8 [place] # (Auto) 1.3 H Eos # (Auto) 0.1 Baso # (Auto) 0.1 Abs Immat Gran (auto) 0.06 H Absolute Neuts (auto) 9.6 H Absolute Nucleated RBC 0.000 Nucleated RBC % (auto) 0.0 ESR 12 Anion Gap 12 Estim Creat Clear Calc 79.1 Estimated GFR > 60 Random Glucose 99 Calcium 9.2 Magnesium 2.1 Total Bilirubin 0.2 Direct Bilirubin < 0.2 AST 13 ALT 12 Alkaline Phosphatase 80 C-Reactive Protein 0.17 Total Protein 8.1 H Albumin 4.3 Lipase 13 Urine Color Straw Urine Appearance Clear Urine pH 7.5 Ur Specific [place] 1.015 Urine Protein Negative Urine Glucose (UA) Negative Urine Ketones Negative Urine Blood Trace Urine Nitrite Negative Ur Leukocyte Esterase Negative Urine RBC 0-2 Urine WBC 0-5 Ur Squamous Epith Cells 0-2 Urine Bacteria None Seen Hyaline Casts 0-2 Imaging Radiologist's Impressions: Impressions Abdomen/Pelvis CT 02/11/24 13:24 IMPRESSION: * Findings consistent with history of obstipation. A large amount of fecal material is present in the colon and rectum and fecal material appears to have a mildly obstructive effect. The perirectal edema is new compared to 01/29/2024 and suggestive of stercoral proctitis in the setting of constipation/obstipation. No bowel perforation or abscess. * The seroma of the right anterior abdominal wall has decreased in size. Assessment and Plan (1) Stercoral colitis: Status: Acute (2) Constipation: Qualifiers: Constipation type: drug induced constipation Qualified Code(s): K59.03 - Drug induced constipation Status: Acute Plan 53-year-old female with history of Crohn's, chronic constipation, hypertension, hyperlipidemia, iron deficiency anemia, history of DVT on Eliquis, obstructive sleep apnea compliant with CPAP, asthma to be observed for obstipation with stercoral colitis. #Acute obstipation and stercoral colitis related to opioid use -CT abdomen/pelvis consistent with obstipation with a large amount of fecal material present in the colon rectum and fecal material with mildly obstructive effect. There is perirectal edema suggestive of stercoral proctitis in the setting of constipation/obstipation without bowel perforation or abscess -s/p manual disimpaction in ED -Discussed with GI. Hold on relistor for now -Give miralax QID, prn enemas -clear liquid diet per gi -avoid narcotic use. Can use valium prn for severe pain -continue iv flagyl and ctx for now (initiated 02/10) -gi consult #SIRS -leukocytosis likely r/t inflammation/steroid use. Tachycardia r/t pain and anxiety. No sepsis #Opioid use -hold narcotic medication -monitor on cows, clonidine prn #Moderate persistent asthma -no exacerbation -continue home inhalers, albuterol prn #Crohns -continue methotrexate. On stelara. Continue prednisone taper (from [facility]) -gi consult #Hx DVT -continue eliquis #Mood disorder -continue home meds #MARISOL -continue cpap bedtime dvt prophylaxis- eliquis full code Quality Stroke Does the patient have a stroke diagnosis?: No VTE Prior VTE?: No VTE Risk Level:: Medical - moderate - high VTE Device Contraindication: N/A - Device Ordered VTE Drug Contraindication: Treatment Not Indicated
[2024-02-11] MEDS: Lactulose 20 GM/30 ML SOLUTION PO (15:55)
[2024-02-11] MEDS: Sodium Phosphate,Mono-Dibasic 133 ML ENEMA PR (15:55)
[2024-02-11] MEDS: polyethylene glycoL 3350 17 GM POWD.PACK PO ×2 (15:55→22:20)
--- NOTE | 2024-02-11 16:12 | PC.NURSE ---
Patient continues to be somewhat confused, alert to self, place, and , unsure of date. Resting quietly in the bed at this time.
[2024-02-11] MEDS: cefTRIAXone sodium 1 GM in 0.9 % Sodium Chloride 50 ML IV (16:20)
[2024-02-11] MEDS: 0.9 % Sodium Chloride Flush 3 ML SYRINGE IVFLUSH ×2 (16:22→22:21)
[2024-02-11 16:30] LABS: Lactic Acid 2.7 mmol/L (0.5-2.0)
[2024-02-11] MEDS: metroNIDAZOLE/NS 500 MG/100 ML PIGGYBACK 100 MG IV (16:37)
[2024-02-11] MEDS: diazePAM 10 MG/2 ML CARTRIDGE 5 MG IVPUSH (16:37)
[2024-02-11 16:54] LABS: Cancel Lactic Acid Canceled
--- NOTE | 2024-02-11 17:11 | PHA.MEDREC ---
Addendum entered by Beena Brian 02/11/24 18:55: spoke to patient Again to confirm clonazapam 0.5 or 1 mg dose however patient wasn't sure. i left in 0.5mg per claims. she takes 10 tablets of methotrxate 2.5 mg on Saturdays. Prednisone 10 mg taper she is on 30 mg day 6 of treatment. Original Note: Pharmacy Consult ? Medication Reconciliation Pharmacy has completed the medication reconciliation. Confirm med list though claims and [facility] med list. Patient was just discharged yesterday. Spoke to patient though [employer]. Patient had a med box list with them. Patient stated she takes methotrxate 2.5 mg every Friday. Her Stelara dose is q 4 weeks. last dose was 01-23-24.
[2024-02-11 19:04] VITALS: BP 125/81; PULSE 87; RESP 17; TEMP 36.9; O2SAT 98
[2024-02-11 21:59] VITALS: BMI 31.9
[2024-02-11 22:00] VITALS: BP 117/69; PULSE 67; RESP 18; TEMP 36.4; O2SAT 98
[2024-02-11] MEDS: risperiDONE 1 MG TABLET PO (22:23)
[2024-02-11] MEDS: Apixaban 5 MG TABLET PO (22:23)
[2024-02-11] MEDS: PARoxetine HCL 40 MG TABLET PO (22:24)
[2024-02-11] MEDS: Topiramate 100 MG TABLET PO (22:24)
[2024-02-11] MEDS: Gabapentin 100 MG CAPSULE PO (22:24)
[2024-02-11] MEDS: Multivitamin TABLET 1 TAB PO (22:24)
[2024-02-11] MEDS: Montelukast Sodium 10 MG TABLET PO (22:25)
[2024-02-11] MEDS: Calcium + Vitamin D 250 MG TABLET 500 MG PO (22:28)
[2024-02-12 04:00] VITALS: BP 129/78; RESP 18; TEMP 36.3; O2SAT 97
[2024-02-12] MEDS: Ketorolac Tromethamine 15 MG/ML VIAL IVPUSH (05:39)
[2024-02-12 07:29] VITALS: BP 110/61; PULSE 57; RESP 18; TEMP 36.6; O2SAT 97
[2024-02-12] MEDS: Fluticasone/Vilanterol 200/25 BLST.W.DEV 1 PUFF INHALE (07:49)
[2024-02-12 07:51] VITALS: PULSE 59; RESP 14; O2SAT 98
[2024-02-12 08:00] VITALS: PULSE 59
[2024-02-12] MEDS: oxyBUTYnin chloride ER 5 MG TAB.ER.24 15 MG PO (08:47)
[2024-02-12] MEDS: Folic Acid 1 MG TABLET PO (08:47)
[2024-02-12] MEDS: Calcium + Vitamin D 250 MG TABLET 500 MG PO (08:47)
[2024-02-12] MEDS: Gabapentin 100 MG CAPSULE PO (08:47)
[2024-02-12] MEDS: PARoxetine HCL 40 MG TABLET PO (08:47)
[2024-02-12] MEDS: Topiramate 100 MG TABLET PO (08:47)
[2024-02-12] MEDS: Apixaban 5 MG TABLET PO (08:47)
[2024-02-12] MEDS: Multivitamin TABLET 1 TAB PO (08:47)
[2024-02-12] MEDS: predniSONE 10 MG TABLET 30 MG PO (08:48)
[2024-02-12] MEDS: polyethylene glycoL 3350 17 GM POWD.PACK PO (08:48)
[2024-02-12] MEDS: Lactulose 20 GM/30 ML SOLUTION PO (08:49)
[2024-02-12] MEDS: risperiDONE 1 MG TABLET PO (08:52)
--- NOTE | 2024-02-12 08:59 | PM.GICN ---
History of Present Illness Data of Consult Service Date: 02/12/24 Requesting physician: Debra Lassiter Primary Care Provider: Leesa Wasserman MD HPI 53 YF with Crohn's, chronic constipation, hypertension, hyperlipidemia, iron deficiency anemia, history of DVT on Eliquis, obstructive sleep apnea compliant with CPAP, asthma seen at [facility] on 02/11/24 for evaluation of evaluation of diffuse 8-9/10 abdominal pain and no BM x6 days. Pt is known to me from past outpatient clinic visits Pt was recently admitted at [facility] 02/04-02/06 for I/D of abd wall seroma treated wtih IV abx and dc'd on PO morphine which she has been taking PRN and prednisone taper (due to brbpr and rectal pain). She has been using miralax for bowel regimen. This morning had a small amount of hard stool with brbpr noted. On arrival has been intermittently tachycardic to 112, likely r/t pain and anxiety, VS otherwise stable with htn to 150/102. Labs showed WBC 13.9. Stable microcytic anemia with H/H 10.8/34.7%. Renal function electrolyte levels normal. CRP 0.17. Urinalysis negative. CT abdomen/pelvis consistent with obstipation with a large amount of fecal material present in the colon rectum and fecal material with mildly obstructive effect. There is perirectal edema suggestive of stercoral proctitis in the setting of constipation/obstipation without bowel perforation or abscess. Seroma of the right anterior abdominal wall decreased in size. In the ED, was manually disimpacted by ED provider and has also been given Fleet enema. Given droperidol and diazepam for pain management as well as p.o. lactulose. Due to the stercoral colitis she was also given 1 g IV ceftriaxone and Flagyl Nursing staff reports pt has had multiple BMs overnight. Review of Systems Review of Systems: Yes all other systems are reviewed and are negative PMFSH Past Medical History Medical History Urge incontinence Normocytic anemia Anxiety Sleep apnea Asthma GERD (gastroesophageal reflux disease) Pulmonary embolism Crohn's disease PTSD (post-traumatic stress disorder) Recurrent major depression-severe Crohn's colitis Hyperlipidemia Hemorrhagic cyst of ovary Kidney stones Depression Iron deficiency anemia Rheumatoid arthritis Migraine Cancer HTN (hypertension) Surgical History Surgical History History of colon resection Hx of dilation and curettage Hx of cystoscopy Hx of cystoscopy Hx of colonoscopy (~10/2018) Hx of endoscopy Social History Social History Household Members: None Housing: Apartment Do you presently have visiting nurse or other home services: No Alcohol intake: never Patient Tobacco Use Status: Former Tobacco user Tobacco use type: Cigarette Cigarettes Per Day: 1 Years Smoked: 10 e-Cigarette/Vaping Use: Never Used Second Hand Smoke Exposure: No Substance Use Type: Marijuana Advance Directives Date on File: 09/17/21 service: No Current occupational status: unemployed and disabled Sexual orientation: Straight/Heterosexual Meds Allergies Allergy/AdvReac Type Severity Reaction Status Date / Time aspirin [ASA] Allergy Intermediate RASH Verified 02/11/24 10:32 azathioprine [From IMURAN] Allergy Intermediate PANCREATIC Verified 02/05/24 08:45 INFLAMMATION ibuprofen [IBUPROFEN] Allergy Intermediate TOLD NOT Verified 02/05/24 08:45 TO TAKE levofloxacin [From LEVAQUIN] Allergy Mild YEAST Verified 02/05/24 08:45 INFECTIONS Active Medications: Current Medications Acetaminophen (Acetaminophen 325 Mg Tablet) 650 mg PO Q6H PRN PRN Reason: Pain, Mild (Pain Scale 1-3), fever or headache Albuterol Sulfate (Albuterol Sulfate 90 Mcg 8 Gm Inhaler) 2 puff INHALE Q4H PRN PRN Reason: Shortness Of Breath Apixaban (Apixaban 5 Mg Tablet) 5 mg PO BID [facility] Last Admin: 02/12/24 08:47 Dose: 5 mg Artificial Tears (Artificial Tears 15 Ml Drops) 1 drop EYE-BOTH BID PRN PRN Reason: Dry Eye(S) Calcium Carbonate (Calcium Carbonate 750 Mg Tab.Chew) 750 mg PO Q4H PRN PRN Reason: Heartburn Calcium Carbonate/Cholecalciferol (Calcium + Vitamin D 250 Mg Tablet) 500 mg PO BID [facility] Last Admin: 02/12/24 08:47 Dose: 500 mg Clonazepam (Clonazepam 0.5 Mg Tablet) 0.5 mg PO BEDTIME PRN PRN Reason: Anxiety Clonidine HCl (Clonidine Hcl 0.1 Mg Tablet) 0.1 mg PO BID PRN; Protocol PRN Reason: opiate withdrawal Diazepam (Diazepam 10 Mg/2 Ml Cartridge) 5 mg IVPUSH Q4H PRN PRN Reason: Pain, Severe (Pain Scale 7-10) Last Admin: 02/11/24 16:37 Dose: 5 mg Famotidine (Famotidine 20 Mg Tablet) 20 mg PO BID PRN PRN Reason: abdominal discomfort Fluticasone/Vilanterol (Fluticasone/Vilanterol 200/25 Blst.W.Dev) 1 puff INHALE RDAILY [facility] Last Admin: 02/12/24 07:49 Dose: 1 puff Folic Acid (Folic Acid 1 Mg Tablet) 1 mg PO DAILY [facility] Last Admin: 02/12/24 08:47 Dose: 1 mg Gabapentin (Gabapentin 100 Mg Capsule) 100 mg PO BID [facility] Last Admin: 02/12/24 08:47 Dose: 100 mg Hydroxyzine HCl (Hydroxyzine Hcl 25 Mg Tablet) 25 mg PO BID PRN PRN Reason: Anxiety Lactulose (Lactulose 20 Gm/30 Ml Solution) 20 gm PO BID [facility] Last Admin: 02/12/24 08:49 Dose: 20 gm Lidocaine (Lidocaine 4 % Patch Adh..Patch) 1 patch TRANSDERMA DAILY PRN; Protocol PRN Reason: Breakthrough Pain Magnesium Hydroxide (Milk Of Magnesia 30 Ml Oral.Susp) 30 ml PO DAILY PRN PRN Reason: Constipation Melatonin (Melatonin 3 Mg Tablet) 6 mg PO BEDTIME PRN PRN Reason: Insomnia Methotrexate (Methotrexate Sodium 2.5 Mg Tablet) 25 mg PO Fr@0900 [facility] Montelukast Sodium (Montelukast Sodium 10 Mg Tablet) 10 mg PO BEDTIME [facility] Last Admin: 02/11/24 22:25 Dose: 10 mg Multivitamins/Vitamin C (Multivitamin Tablet) 1 tab PO DAILY [facility] Last Admin: 02/12/24 08:47 Dose: 1 tab Oxybutynin Chloride (Oxybutynin Chloride Er 5 Mg Tab.Er.24) 15 mg PO DAILY [facility] Last Admin: 02/12/24 08:47 Dose: 15 mg Paroxetine HCl (Paroxetine Hcl 40 Mg Tablet) 40 mg PO DAILY [facility] Last Admin: 02/12/24 08:47 Dose: 40 mg Polyethylene Glycol (Polyethylene Glycol 3350 17 Gm Powd.Pack) 17 gm PO QID [facility] Last Admin: 02/12/24 08:48 Dose: 17 gm Prednisone (Prednisone 10 Mg Tablet) 30 mg PO DAILY [facility] Stop: 02/12/24 09:01 Last Admin: 02/12/24 08:48 Dose: 30 mg Prednisone (Prednisone 20 Mg Tablet) 20 mg PO DAILY [facility] Stop: 02/14/24 09:01 Prednisone (Prednisone 10 Mg Tablet) 10 mg PO DAILY [facility] Stop: 02/16/24 09:01 Risperidone (Risperidone 1 Mg Tablet) 1 mg PO BID [facility] Last Admin: 02/12/24 08:52 Dose: 1 mg Sodium Biphosphate/Sodium Phosphate (Sodium Phosphate,Colbert-Dibasic 133 Ml Enema) 133 ml SC DAILY PRN PRN Reason: constipation Sodium Chloride (0.9 % Sodium Chloride Flush 3 Ml Syringe) 3 ml IVFLUSH QSHIFT [facility] Last Admin: 02/11/24 22:21 Dose: 3 ml Topiramate (Topiramate 100 Mg Tablet) 100 mg PO BID [facility] Last Admin: 02/12/24 08:47 Dose: 100 mg Zolpidem Tartrate (Zolpidem Tartrate 5 Mg Tablet) 5 mg PO BEDTIME PRN PRN Reason: insomnia Home Medications ?Medication ?Instructions ?Recorded ?Confirmed ?Last Taken ?Type docusate sodium 100 mg capsule 1 cap PO BID PRN Constipation 03/22/21 02/11/24 02/10/24 History montelukast 10 mg tablet 1 tab PO BEDTIME 03/22/21 02/11/24 02/10/24 History multivitamin 1 tab PO QAM 03/22/21 02/11/24 02/10/24 History albuterol sulfate 90 mcg/actuation 2 puff PO Q4H PRN Shortness Of 06/13/21 02/11/24 02/10/24 History aerosol inhaler (ProAir HFA) Breath apixaban 5 mg tablet (Eliquis) 5 mg PO BID 06/13/21 02/11/24 02/10/24 History calcium carbonate 600 mg-vitamin 1 tab PO BID 06/25/21 02/11/24 02/10/24 History D3 10 mcg (400 unit) tablet hydroxyzine HCl 25 mg tablet 1 tab PO BID PRN Anxiety 06/25/21 02/11/24 02/10/24 History lidocaine 4 % topical patch 1 patch topical DAILY PRN 06/25/21 02/11/24 02/10/24 History Breakthrough Pain budesonide-formoterol HFA 160 2 puff PO BID 09/08/21 02/11/24 02/10/24 History mcg-4.5 mcg/actuation aerosol inhaler (Symbicort) gabapentin 100 mg capsule 100 mg PO BID 01/28/22 02/11/24 02/10/24 History methotrexate sodium 2.5 mg tablet 25 mg PO FR 12/17/23 02/11/24 02/06/24 History paroxetine HCl 40 mg tablet 40 mg PO QAM 12/17/23 02/11/24 02/10/24 History zolpidem 5 mg tablet 5 mg PO BEDTIME PRN insomnia 12/17/23 02/11/24 Unknown History acetaminophen 325 mg tablet 650 mg PO Q4H PRN Pain 02/11/24 02/11/24 02/10/24 History (Tylenol) calcium carbonate 500 mg PO BID 02/11/24 02/11/24 02/10/24 History carboxymethylcellulose sodium 1 % 1 drp ophthalmic (eye) BID PRN Dry 02/11/24 02/11/24 02/10/24 History eye liquid gel drops Eye(S) clonazepam 0.5 mg tablet 0.5 mg PO BEDTIME PRN Anxiety 02/11/24 02/11/24 Unknown History melatonin 3 mg tablet 3 mg PO BEDTIME PRN Sleep 02/11/24 02/11/24 02/10/24 History topiramate 100 mg tablet 100 mg PO BID 02/11/24 02/11/24 Unknown History ustekinumab 90 mg/mL subcutaneous 90 mg subcut Q4W 02/11/24 02/11/24 01/23/24 History syringe (Stelara) Physical Exam Vital Signs: Vital Signs: Last Vital Signs Temp 97.8 F 02/12/24 07:29 Pulse 59 02/12/24 07:51 Resp 14 02/12/24 07:51 BP 110/61 02/12/24 07:29 Pulse Ox 97 02/12/24 07:29 O2 Del Method Room Air 02/12/24 07:29 BMI result Body Mass Index 31.9 Results Labs 02/11/24 12:00 02/11/24 12:00 Labs: Short CBC 02/11/24 Range/Units 12:00 WBC 13.9 H (4.8-10.8) X10*3/uL Hgb 10.8 L (12.0-16.0) g/dl Hct 34.7 L (37.0-47.0) % Plt Count 302 (160-400) X10*3/uL BMP 02/11/24 12:00 Sodium 140 Potassium 3.8 Chloride 107 Carbon Dioxide 25 BUN 12 Creatinine 0.85 Calcium 9.2 Liver Function 02/11/24 Range/Units 12:00 Total Bilirubin 0.2 (0.0-1.0) mg/dL Direct Bilirubin < 0.2 (0.0-0.5) mg/dL AST 13 (5-31) U/L ALT 12 (0-31) U/L Alkaline Phosphatase 80 (39-117) U/L Albumin 4.3 (3.5-5.0) g/dL Urine 02/11/24 Range/Units 12:00 Urine Color Straw Urine Appearance Clear Urine pH 7.5 (5.0-9.0) Ur Specific [place] 1.015 (1.005-1.025) Urine Protein Negative (Neg-Trace) mg/dL Urine Glucose (UA) Negative (Negative) mg/dL Assessment and Plan (1) Stercoral colitis: Status: Acute (2) Constipation: Qualifiers: Constipation type: drug induced constipation Qualified Code(s): K59.03 - Drug induced constipation Status: Acute (3) History of colon resection: Status: Acute (4) Crohn's colitis: Status: Acute Procedures Date of Service Date of Service: 02/12/24
--- NOTE | 2024-02-12 10:54 | MHC.CM.PN ---
Addendum entered by Cindy Hanerland 02/12/24 13:12: Pt is medically cleared for discharge home self-care via family transport. Addendum entered by Cindy Hanerland 02/12/24 10:56: HCP on file and verified. Original Note: BALLESTEROS 02/11. Pt lives at home with her brother, she uses a cane, and a receives daily [employer] services. Pts family will transport her home at discharge. PCP: Dr. Leesa Wasserman
--- NOTE | 2024-02-12 12:03 | P.DS_ITS ---
DS: Providers Provider Date of Service: 02/12/24 Date of admission: 02/11/24 15:39 Primary care physician: Leesa Wasserman MD Consults: 02/11/24 15:45 Consult to Gastroenterology Routine Consulting Provider: Libby Palafox Reason for consultation: obstipation DS: Diagnosis Discharge Diagnosis (1) Stercoral colitis: Status: Acute (2) Constipation: Status: Acute (3) History of colon resection: Status: Acute (4) Crohn's colitis: Status: Acute DS: Summary Hospital Course Hospital Course: Admission note HPI 53-year-old female with history of Crohn's, chronic constipation, hypertension, hyperlipidemia, iron deficiency anemia, history of DVT on Eliquis, obstructive sleep apnea compliant with CPAP, asthma presented to the ED earlier today for evaluation of evaluation of diffuse 8-9/10 abdominal pain and no BM x6 days. She was recently admitted at [facility] 02/04-02/06 for I/D of abd wall seroma treated wtih IV abx and dc'd on PO morphine which she has been taking PRN and prednisone taper (due to brbpr and rectal pain). She has been using miralax for bowel re gimen. This morning had a small amount of hard stool with brbpr noted. On arrival has been intermittently tachycardic to 112, likely r/t pain and anxiety, VS otherwise stable with htn to 150/102. WBC 13.9. Stable microcytic anemia with H/H 10.8/34.7%. Renal function electrolyte levels normal. CRP 0.17. Urinalysis negative. CT abdomen/pelvis consistent with obstipation with a large amount of fecal material present in the colon rectum and fecal material with mildly obstructive effect. There is perirectal edema suggestive of stercoral proctitis in the setting of constipation/obstipation without bowel perforation or abscess. Seroma of the right anterior abdominal wall decreased in size. In the ED, was manually disimpacted by ED provider and has also been given Fleet enema. Given droperidol and diazepam for pain management as well as p.o. lactulose. Due to the stercoral colitis she was also given 1 g IV ceftriaxone and Flagyl. Hospital course The patient was admitted for treatment of Acute obstipation and stercoral colitis related to opioid use as CT abdomen/pelvis consistent with constipation with a large amount of fecal material present in the colon rectum and fecal material with mildly obstructive effect. as she was manually disimpacted in ED and started on Miralax, Enema and Lactulose with good response as she moved her bowels overnight and repeated KUB showed interval resolution of the constipation. Seen by GI who recommended to increase Miralax and Start LActulose on discharge with a plan to follow as outpatient. The patient had SIRS with leukocytosis likely related to inflammation and chronic steroid use. Tachycardia r/t pain and anxiety. lactic acidosis from dehydration not due to sepsis. No signs of infection. To follow with GI as outpatient. Discharge plan Start Lactulose once daily Increase Miralax to twice daily follow with dr Palafox as outpatient Time Attestation Discharge Coordination Time (in mins): 24 Quality: Safe Use of Opioids Does Pt have an Active Cancer Diagnosis on the Problem List?: No Quality: Stroke Does the patient have a stroke diagnosis?: No Physical Exam Vital Signs: Vital Signs: Last Vital Signs Temp 97.8 F 02/12/24 07:29 Pulse 59 02/12/24 07:51 Resp 14 02/12/24 07:51 BP 110/61 02/12/24 07:29 Pulse Ox 97 02/12/24 07:29 O2 Del Method Room Air 02/12/24 07:29 BMI result Body Mass Index 31.9 Const: Other: Constitutional : Awake, interactive, not in distress Neck : Normal inspection, Supple Cardiovascular : RRR, no JVP, no lower extremity edema Respiratory : good bilateral air entry, no crackles, wheezes or rhonchi Gastrointestinal: soft, lax, Normal bowel sounds, Non tender Skin : Warm, Dry Neurological : Alert & oriented x3, No focal deficit DS: Data Data Completed and Pending Completed studies during hospitalization [Text1]: Procedures Dilation of Sigmoid Colon, Via Natural or Artificial Opening Endoscopic (09/08/21) Excision of Ascending Colon, Via Natural or Artificial Opening Endoscopic, Diagnostic (03/01/21) Excision of Cecum, Via Natural or Artificial Opening Endoscopic, Diagnostic (03/01/21) Excision of Descending Colon, Via Natural or Artificial Opening Endoscopic, Diagnostic (03/01/21) Excision of Duodenum, Via Natural or Artificial Opening Endoscopic, Diagnostic (03/01/21) Excision of Rectum, Via Natural or Artificial Opening Endoscopic (03/01/21) Excision of Sigmoid Colon, Via Natural or Artificial Opening Endoscopic, Diagnostic (09/08/21) Excision of Stomach, Pylorus, Via Natural or Artificial Opening Endoscopic, Angella gnostic (03/01/21) Excision of Transverse Colon, Via Natural or Artificial Opening Endoscopic, Diagnostic (03/01/21) Extraction of Esophagus, Via Natural or Artificial Opening Endoscopic, Diagnostic (03/01/21) Labs on day of discharge: Laboratory Results - last 24 hr 02/11/24 02/11/24 12:00 16:11 WBC 13.9 H RBC 4.42 Hgb 10.8 L Hct 34.7 L MCV 78.5 L MCH 24.4 L MCHC 31.1 RDW 17.0 H Plt Count 302 MPV 11.4 Immature Gran % (Auto) 0.4 Neut % (Auto) 69.2 Lymph % (Auto) 20.1 [place]mullen % (Auto) 9.5 Eos % (Auto) 0.4 Baso % (Auto) 0.4 Lymph # (Auto) 2.8 [place] # (Auto) 1.3 H Eos # (Auto) 0.1 Baso # (Auto) 0.1 Abs Immat Gran (auto) 0.06 H Absolute Neuts (auto) 9.6 H Absolute Nucleated RBC 0.000 Nucleated RBC % (auto) 0.0 ESR 12 Sodium 140 Potassium 3.8 Chloride 107 Carbon Dioxide 25 Anion Gap 12 BUN 12 Creatinine 0.85 Estim Creat Clear Calc 79.1 Estimated GFR > 60 Random Glucose 99 Lactic Acid 2.7 H* Calcium 9.2 Magnesium 2.1 Total Bilirubin 0.2 Direct Bilirubin < 0.2 AST 13 ALT 12 Alkaline Phosphatase 80 C-Reactive Protein 0.17 Total Protein 8.1 H Albumin 4.3 Lipase 13 Urine Color Straw Urine Appearance Clear Urine pH 7.5 Ur Specific [place] 1.015 Urine Protein Negative Urine Glucose (UA) Negative Urine Ketones Negative Urine Blood Trace Urine Nitrite Negative Ur Leukocyte Esterase Negative Urine RBC 0-2 Urine WBC 0-5 Ur Squamous Epith Cells 0-2 Urine Bacteria None Seen Hyaline Casts 0-[address] scan - abdomen: Radiologist's impression: ITS Impressions Abdomen/Pelvis CT 02/11/24 13:24 IMPRESSION: * Findings consistent with history of obstipation. A large amount of fecal material is present in the colon and rectum and fecal material appears to have a mildly obstructive effect. The perirectal edema is new compared to 01/29/2024 and suggestive of stercoral proctitis in the setting of constipation/obstipation. No bowel perforation or abscess. * The seroma of the right anterior abdominal wall has decreased in size. KUB X-Ray 02/12/24 09:25 IMPRESSION: Significant interval improvement. No evidence of constipation/obstipation on this follow-up exam. No bowel obstruction. Discharge Plan Discharge Anticipated Discharge Date/Time: 02/12/24 11:59 Patient Disposition: Home, Self-Care Discharge Diagnosis: Constipation Referrals: Leesa Rapp MD [Primary Care Provider] - 1 Week Discharge Medications: New lactulose 20 gram/30 mL Solution 20 g PO DAILY Qty: 900 2RF Continued vitamin B complex-folic acid [B Complex 1 (with folic acid)] 0.4 mg tablet 1 tab PO QAM Qty: 30 2RF folic acid 1 mg tablet 1 mg PO DAILY 60 Days Qty: 60 3RF Rx Instructions: Take 1 tablet daily oxybutynin chloride 15 mg tablet extended release 24hr 15 mg PO DAILY 30 Days Qty: 30 1RF multivitamin Tablet 1 tab PO QAM docusate sodium 100 mg capsule 1 cap PO BID PRN (Reason: Constipation) montelukast 10 mg tablet 1 tab PO BEDTIME risperidone 1 mg Tablet 1 mg PO BID Qty: 60 0RF Eliquis 5 mg tablet 5 mg PO BID Hold Instructions: Resume on 08/12/23. Resume Eliquis on 08/12/23 Rx Instructions: Take 10 mg Eliquis twice daily for 1 week, then take Eliquis 5 mg twice daily for next 3-4 months as per Hematology albuterol sulfate [ProAir HFA] 90 mcg/actuation HFA aerosol inhaler 2 puff PO Q4H PRN (Reason: Shortness Of Breath) hydroxyzine HCl 25 mg tablet 1 tab PO BID PRN (Reason: Anxiety) calcium carbonate-vitamin D3 600 mg(1,500mg) -400 unit tablet 1 tab PO BID lidocaine 4 % Adhesive Patch,Medicated 1 patch TOPICAL DAILY PRN (Reason: Breakthrough Pain) budesonide-formoterol [Symbicort] 160-4.5 mcg/actuation HFA aerosol inhaler 2 puff PO BID famotidine [Pepcid] 20 mg tablet 20 mg PO BID PRN (Reason: abdominal discomfort) Qty: 60 0RF ondansetron 4 mg tablet,disintegrating 4 mg PO Q6H Qty: 14 0RF prednisone 10 mg tablet 10 mg PO DIRECTED Qty: 32 0RF Rx Instructions: Day 1 through 5 take 4 pills then decrease by 1 pill every 2 days until you complete prescription( currently on 30 mg day 6) acetaminophen [Tylenol] 325 mg Tablet 650 mg PO Q4H PRN (Reason: Pain) melatonin 3 mg Tablet 3 mg PO BEDTIME PRN (Reason: Sleep) calcium carbonate 500 mg calcium (1,250 mg) Tablet,Chewable 500 mg PO BID carboxymethylcellulose sodium 1 % Drops, Liquid Gel 1 drp OPHTHALMIC (EYE) BID PRN (Reason: Dry Eye(S)) Stelara 90 mg/mL syringe 90 mg subcut Q4W clonazepam 0.5 mg Tablet 0.5 mg PO BEDTIME PRN (Reason: Anxiety) Rx Instructions: administer 30 minutes before bedtime topiramate 100 mg tablet 100 mg PO BID gabapentin 100 mg capsule 100 mg PO BID paroxetine HCl 40 mg tablet 40 mg PO QAM zolpidem 5 mg tablet 5 mg PO BEDTIME PRN (Reason: insomnia) methotrexate sodium 2.5 mg tablet 25 mg PO FR Changed polyethylene glycol 3350 [Miralax] 17 gram/dose powder 17 g PO BID 30 Days Qty: 510 3RF Discharge Orders: Discharge Order (Routine); Ordered 02/12/24 Ordered By: Marcellus Cruz Diet: Advance to usual diet Activity on Discharge: As tolerated Stand Alone Forms: Patient Portal Discharge page Print Language: Citizen Of [place] Care Plan Goals: Start Lactulose once daily Increase Miralax to twice daily follow with dr Palafox as outpatient Health Concerns: Read below Plan of Treatment: Read below Assessment: Read below
== END 2024-02-12 13:55 | disposition home or self-care (01) ==
LOC: HO.ED 15:26 → HO.EDOVER 15:49 → HO.IMC 19:34
PROVIDERS: Admitting Provider Physician Assistant; Emergency Provider Emergency Medicine; PCP Internal Medicine; Visit Provider Student in an Organized Health Care Education/Training Program
DX: K52.89 Other specified noninfective gastroenteritis and colitis (principal); K59.03 Drug induced constipation; R65.10 Systemic inflammatory response syndrome (SIRS) of non-infectious origin without acute organ dysfunction; K50.10 Crohn's disease of large intestine without complications; I10 Essential (primary) hypertension; M06.9 Rheumatoid arthritis, unspecified; J45.30 Mild persistent asthma, uncomplicated; G47.33 Obstructive sleep apnea (adult) (pediatric); F11.90 Opioid use, unspecified, uncomplicated; F39 Unspecified mood [affective] disorder; Z86.718 Personal history of other venous thrombosis and embolism; Z90.49 Acquired absence of other specified parts of digestive tract; Z79.899 Other long term (current) drug therapy; Z79.01 Long term (current) use of anticoagulants
CPT/HCPCS: 36415; 74018; 74177; 80048; 80076; 81001; 83605; 83690; 83735; 85025; 85652; 86140; 87040; 94640; 96361; 96365; 96367; 96375; 96376; 99222; 99285; J0696; J1790; J1836; J1885; J2405; J3360; Q9967

== ENCOUNTER → 2024-02-11 15:39 | Outpatient (BNV) | payer MEDICAID, SELFPAY | PROVIDERS: Admitting Provider Physician Assistant; Emergency Provider Emergency Medicine; PCP Internal Medicine; Visit Provider Physician Assistant | DX: K52.89 Other specified noninfective gastroenteritis and colitis (principal); K59.03 Drug induced constipation; Z90.49 Acquired absence of other specified parts of digestive tract; K50.10 Crohn's disease of large intestine without complications | CPT/HCPCS: 99223; 99238 ==

== ENCOUNTER → 2024-02-11 15:39 | Outpatient (BNV) | payer MEDICAID, SELFPAY | PROVIDERS: Admitting Provider Physician Assistant; Emergency Provider Emergency Medicine; PCP Internal Medicine; Visit Provider Internal Medicine Gastroenterology | DX: K52.89 Other specified noninfective gastroenteritis and colitis (principal); K59.03 Drug induced constipation; Z90.49 Acquired absence of other specified parts of digestive tract; K50.10 Crohn's disease of large intestine without complications; K50.90 Crohn's disease, unspecified, without complications | CPT/HCPCS: 99499 ==

== ENCOUNTER 2024-02-20 07:29 | Outpatient (AMB) | payer MEDICAID, SELFPAY ==
--- NOTE | 2024-02-20 07:37 | A.OFFVIS_ITS ---
Vital Signs 02/20/24 07:41 Height 5 ft 3 in Weight 176 lb BMI 31.2 BP 85/55 L Blood Pressure Location Lt brachial Position Sitting Pulse 66 Intake Visit Reasons: Hospital follow up Intake Note: Patient follow up after couples visit to the ED due abdominal pain and constipation. Patient cc: after hernia surgery she is been with a lot of abdominal pain on and off, today she is dizzy and her BP is low. Patient said everything is okay and no GI issues today Mental Health Specialist Required: No Accompanied by: Daughter Allergies aspirin [ASA] Allergy (Intermediate, Verified 02/20/24 07:38) RASH azathioprine [From IMURAN] Allergy (Intermediate, Verified 02/20/24 07:38) PANCREATIC INFLAMMATION ibuprofen [IBUPROFEN] Allergy (Intermediate, Verified 02/20/24 07:38) TOLD NOT TO TAKE levofloxacin [From LEVAQUIN] Allergy (Mild, Verified 02/20/24 07:38) YEAST INFECTIONS Medication List - Last Reconciled 02/20/24 by Libby Palafox MD acetaminophen (Tylenol) 650 mg PO Q4H PRN albuterol sulfate 90 mcg/actuation (ProAir HFA) 2 puffs PO Q4H PRN apixaban (Eliquis) 5 mg PO BID budesonide-formoterol 160-4.5 mcg/actuation (Symbicort) 2 puffs PO BID calcium carbonate 500 mg PO BID calcium carbonate-vitamin D3 600 mg-10 mcg (400 unit) 1 tab PO BID carboxymethylcellulose sodium 1% 1 drp ophthalmic (eye) BID PRN clonazepam 0.5 mg PO BEDTIME PRN docusate sodium 1 cap PO BID PRN famotidine (Pepcid) 20 mg PO BID PRN folic acid 1 mg PO DAILY 60 days gabapentin 100 mg PO BID hydroxyzine HCl 1 tab PO BID PRN lactulose 20 grams (30 mL) PO DAILY lidocaine 4% 1 patch topical DAILY PRN melatonin 3 mg PO BEDTIME PRN methotrexate sodium 25 mg PO FR montelukast 1 tab PO BEDTIME multivitamin 1 tab PO QAM ondansetron 4 mg PO Q6H oxybutynin chloride ER 15 mg PO DAILY 30 days paroxetine HCl 40 mg PO QAM polyethylene glycol 3350 (Miralax) 17 grams PO BID 30 days risperidone 1 mg PO BID topiramate 100 mg PO BID ustekinumab (Stelara) 90 mg subcut Q4W vitamin B complex-folic acid 0.4 mg (B Complex 1 (with folic acid)) 1 tab PO QAM zolpidem 5 mg PO BEDTIME PRN HPI HPI Hospital follow up: Details: GI FU visit for this 52-year-old female for FU of Crohn's disease. Pt is on chronic anticoagulation with Eliquis because of history of pulmonary embolism. Urgent FU appt scheduled after recent hospitalization from 02/10 to 02/12/24: Hospital course The patient was admitted for treatment of Acute obstipation and stercoral colitis related to opioid use as CT abdomen/pelvis consistent with constipation with a large amount of fecal material present in the colon rectum and fecal material with mildly obstructive effect. as she was manually disimpacted in ED and started on Miralax, Enema and Lactulose with good response as she moved her bowels overnight and repeated KUB showed interval resolution of the constipation. Seen by GI who recommended to increase Miralax and Start LActulose on discharge with a plan to follow as outpatient. The patient had SIRS with leukocytosis likely related to inflammation and chronic steroid use. Tachycardia r/t pain and anxiety. lactic acidosis from dehydration not due to sepsis. No signs of infection. To follow with GI as outpatient. Discharge plan Start Lactulose once daily Increase Miralax to twice daily follow with dr Palafox as outpatient Pt was hospitalized at [facility] for Crohn's disease flare from 09/08/21 to 09/14/21: Hospital course: She presented with abdominal pain and was noted to have stricture related to crohn's disease, there was no evidence active infection. She was treated with IV steroid, empric Flagyl. She then underwent colonscopy with stricture dilation by Dr. Palafox on 09/13 after being off eliquis for 3 days. She is now feeling better, her diet has been advance and tolerating. She will follow up with Dr. Palafox on outpatient basis. She will be discharged with Prednisone taper with 40 mg daily and reduce by 10 mg every 5 days.? She will resume Eliquis for history of PE ?? ? CHRONIC ILLNESSES:?RA, GERD, asthma, sleep apnea, iron def anemia, anxiety and depression ?LABS IN [facility]:04/28/20 Reviewed H&H of 11.2 and 36.7, CHEM PANEL AND LFTS. ? Improvement in LFTs with AST of 32 (decreased from 93) and ALT of 70 (decreased from 190) , alkaline phosphatase 97, FERRITIN 40 ? CRP 2.20 (increased from 0.71 on 03/24/20) ? 08/12 STOOL CALPROTECTIN WAS 714 (DECREASED FROM > 2000 IN 12/11) 01/11 T spot was negative. ?IMAGING STUDIES: 09/08/[address] SCAN SHOWED: Narrowing of the segment of the proximal sigmoid colon with wall enhancement and thickening is noted which is a chronic finding as seen on multiple previous CT scans; however, possibility of mild increased wall thickening and enhancement in the region cannot be completely excluded. Given the dilatation of the colon proximal to this level on current examination, possibility of at least partial obstruction related to the proximal sigmoid colon stricture is suspected. The findings are most probably related to patient's known inflammatory bowel disease; however, again possibility of neoplastic process here cannot be completely excluded. 03/[address] SCAN SHOWED:? There is a long segment of colitis from the mid transverse colon ? through the distal rectum sigmoid consistent with history of Crohn's ? disease. There has been progression of disease since prior exam of 12/16/2019. ENDOSCOPIC STUDIES:?09/28/21 EGD SHOWED: ESOPHAGUS: GE junction at 36 cms.? Focal esophagitis with a 1 cms ulcer at GEJ. No stricture or ring noted.? Scattered white exudates in the proximal and mid esophagus suggestive of esophageal candidiasis - biopsies obtained to check for Karo/EOE. STOMACH: Gastritis - biopsied to check for H Pylori Plan:? Start Fluconazole for esophageal candidiasis - likely source of dysphagia and odynophagia. Resume Eliquis tonight. 09/13/21 FLEXIBLE SIGMOIDOSCOPY SHOWED:Flexible Sigmoidoscopy Findings: Focal tight stricture from 15 to 18 cms with ulcerations. Stricture was dilated with a 10, 11 and 12 mm (36 F) CRE balloon x 60 sec at each level. Biopsies were obtained from the stricture and colon at 30 and 10 cms (proximal and distal to the stricture) Plan:? Resume full liquid diet tonight and advance diet as tolerated. OK to resume Eliquis in the am. Switch to PO prednisone at 40 mg in the am and taper by 10 mg every 5 days over 3 weeks. BIOPSIES SHOWED: A.? Colon, sigmoid at 30 cm, biopsy:? Focal chronic colitis without activity; negative for dysplasia and carcinoma. B.? Colon, sigmoid at 18 cm, stricture, biopsy:? Chronic colitis with mild to severe activity and active ulcer with granulation tissue, superficial fragments; negative for dysplasia and carcinoma. C.? Colon, sigmoid at 10 cm, biopsy:? Chronic colitis without activity; negative for dysplasia and carcinoma. Colonoscopy in 01/18/20 showed patchy erythema throughout the colon - surveillance biopsies were obtained. Focal area of ulcerations with a tight stricture at 18 to 20 cms and unable to pass the colonoscope through the stricture. Stricture was dilated with a 12mm (26 F) CRE balloon and colonoscope was then advanced into the colon. Patchy erythema with focal ulcers in the distal rectum. Inflammation in the recto-sigmoid significantly improved from last year - severe left sided colitis with minimal inflammation in the remaining colon. were negative for CMV. TODAY'S VISIT:? Pt is accompanied by her daughter, Madelin who interpreted.??? Doing OK at present. Pt reports having a normal BM 2 or more times a day. Initially had diarrhea. Notes intermittent abd discomfort due to the seroma Scheduled to see surgery at [facility] Taking Miralax once a day and laculose once a day with good evacuation and denies feeling backed up. Appetite has improved after she took prednisone. Daughter is requesting referral to the General Ophthalmologist to help with diet. PAST VISITS: Patient cc: after hernia surgery she is been with a lot of abdominal pain on and off, today she is dizzy and her BP is low. Patient said everything is okay and no GI issues today Complains of mid abdominal/periumblical pain x last week Pain is intense 9/10 in intensity Seen in the ER at [facility] and prescribed oxycodone Does not eat when she has pain - does not feel like eating. Complains of constipation - has a BM every 1-2 days. Takes prune juice which helps. Takes docusate twice a day for constipation. Denies black stools or rectal bleeding. PAST VISITS: Had ileostomy reversal 2 months ago. Surgery went well. Has a BM 2-3 times a day, has constipation on some days and does not go on some days Feeling regular Has an appt with colorectal surgeon at [facility] on 10/24/22. Pt states, the surgeon will discuss reversal of colostomy. Last Stelara injection was on Sep 25, 2022 and next injection scheduled on 10/23/22. Pt denies abdominal pain and reports a good appetite Pt is accompanied by her daughter, Aissatou. EGD results were reviewed with the patient. Denies abdominal pain or rectal bleeding. Comes to short stay for her Stelara injection - last injection 01/31/22. Next injection scheduled on 02/28/22 at 9:30 am. Not taking MTX - prescription was stopped without anyone telling the pt - prescription renewed. Has been feeling better since discharge from the hospital 10 days ago - I have abdominal pain. Sometimes when I swallow the food gets stuck - symptoms associated with solid food. Its painful to swallow. Dysphagia episodes are frequent. Food goes down with water and is very painful. Has 6-7 BMs a day. On prednisone taper at 30 mg daily and will decrease to 20 mg daily in 2 days. IBD Summary: ? Year of diagnosis: Crohn's disease diagnosed in [address] scan. ? Disease Extent: Colon ? Past treatments: Azathioprine caused pancreatitis, ? She was initially treated with Remicade which did not work and she was switched to Humira. ? Treated with Entyvio for a few months which was stopped due to side effects. ? In 09/2016, she was treated with Stelara every 8 weeks which worked well for her. ? She has been treated with Prednisone intermittently. ? Previous Endoscopic Evaluations: 01/18/20 COLONOSCOPY SHOWED: One small hyperplastic rectal polyp removed. Patchy erythema throughout the colon - surveillance biopsies were obtained. Focal area of ulcerations with a tight stricture at 18 to 20 cms and unable to pass the colonoscope through the stricture. Stricture was dilated with a 12mm (26 F) CRE balloon and colonoscope was then advanced into the colon. Patchy erythema with focal ulcers in the distal rectum. Inflammation in the recto-sigmoid significantly improved from last year - biopsies were obtained for histology. EGD and colonoscopy on 08/20/2016. ? EGD showed diffuse whittish plaques in the esophagus and diffuse erythema of the mucosa in the cardia. ? Biopsies were obtained. ? Colonoscopy showed normal mucosa in the right colon and patchy erythema and erosions in the left colon. Diffuse erythema and erosions were seen involving most of the rectum. ? Past Surgeries: She underwent Colon surgery (? removal of sigmoid colon) with colostomy at [facility] in 2010. She had reversal of colostomy in Dec, 2011. She developed a peristomal hernia. Last seen at [facility] in 11/2020 and requesting an appointment. Increased MTX to 25 mg (10 tablets) from 5 or 6 tablets daily in?March [facility] Medical History (Updated 02/20/24 @ 07:38 by Libby Palafox MD) Urge incontinence Normocytic anemia Anxiety Sleep apnea Asthma GERD (gastroesophageal reflux disease) Pulmonary embolism Crohn's disease PTSD (post-traumatic stress disorder) Recurrent major depression-severe Crohn's colitis Hyperlipidemia Hemorrhagic cyst of ovary Kidney stones Depression Iron deficiency anemia Rheumatoid arthritis Migraine Cancer HTN (hypertension) Surgical History History of colon resection History of colon resection Hx of dilation and curettage Hx of cystoscopy Hx of cystoscopy Hx of colonoscopy (~10/2018) Hx of endoscopy Social History Household Members: None Housing: Apartment Do you presently have visiting nurse or other home services: No Alcohol intake: never Patient Tobacco Use Status: Former Tobacco user Tobacco use type: Cigarette Cigarettes Per Day: 1 Years Smoked: 10 e-Cigarette/Vaping Use: Never Used Second Hand Smoke Exposure: No Substance Use Type: Marijuana Advance Directives Date on File: 09/17/21 service: No Current occupational status: unemployed and disabled Sexual orientation: Straight/Heterosexual Review of Systems Const All systems reviewed & are unremarkable except as noted in HPI and below Physical Exam Vital Signs: Last Vital Signs Pulse 66 02/20/24 07:41 BP 85/55 L 02/20/24 07:41 BMI result Body Mass Index 31.2 Last Vital Signs Temp 97.8 F 02/12/24 07:29 Pulse 59 02/12/24 07:51 Resp 14 02/12/24 07:51 BP 110/61 02/12/24 07:29 Pulse Ox 97 02/12/24 07:29 O2 Del Method Room Air 02/12/24 07:29 BMI result Body Mass Index 31.9 Const Other: Constitutional : Awake, interactive, not in distress Neck : Normal inspection, Supple Cardiovascular : RRR, no JVP, no lower extremity edema Respiratory : good bilateral air entry, no crackles, wheezes or rhonchi Gastrointestinal: soft, lax, Normal bowel sounds, Non tender Skin : Warm, Dry Neurological : Alert & oriented x3, No focal deficit Assessment & Plan Assessment & Plan (1) Crohn's disease: Code(s): K50.90 - Crohn's disease, unspecified, without complications Category: Medical (2) GERD (gastroesophageal reflux disease): Code(s): K21.9 - Gastro-esophageal reflux disease without esophagitis Category: Medical (3) Chronic constipation: Code(s): K59.09 - Other constipation Category: Medical Plan 53 YF with RA, GERD, asthma, sleep apnea, iron def anemia, intermittent compliance with follow up appointments, anxiety, depression with some memory loss with Crohn's disease involving the left colon (and suspected jejunal involvement). Pt was diagnosed with Crohn's colitis 21 yrs ago and is status post sigmoid colectomy with colostomy in 2010, reversal of colostomy in 2011. She has failed treatment with multiple medications in the past due to lack of efficacy or side effects including Remicade, Humira, Cimzia, Entyvio, azathioprine caused pancreatitis. She has been on Stelara every 8 weeks which had worked well for her in the past. Dose of Stelara was increased to every 4 weeks 2 years ago due to breakthrough symptoms and low trough levels. She has been treated with Prednisone intermittently for CD flares. Patient was seen at [facility] IBD clinic for a 2nd opinion regarding treatment options and addition of methotrexate was advised. Patient was started on methotrexate 25 mg intramuscularly every week on 04/13/19 in the Oncology clinic. She was switched to p.o. methotrexate 50 mg once a week in Sep, 2019 - now taking 25 mg every week. She is also on budesonide 9 mg once daily. She continues to have intermittent flares requiring IV steroids. Pt was seen at [facility] on 05/03/20 and dose of MTX was increased to 25 mg PO (10 tab) every week from 5 or 6 tablets daily in March 2020. 09/13/21 Flexible sigmoidoscopy showed a?focal tight stricture from 15 to 18 cms with ulcerations. Stricture was dilated to 12 mm (36 F) with a CRE balloon. Biopsies obtained from the stricture showed chronic colitis with mild to severe activity and active ulcer with granulation tissue - negative for dysplasia and carcinoma? ?Biopsies obtained from 30 and 10 cms (proximal and distal to the stricture) showed focal chronic colitis without activity. 05/17/22 Pt had Robot assisted laparoscopic lysis of adhesions with resection of colorectal anastomosis and new colorectal anastomosis with loop ileostomy and left ureterolysis and mobilization of the splenic flexure by Dr Mcdonough, colorectal surgeon, [facility].? No dysplasia noted on histology. She has a FU appt to schedule ileostomy reversal after gastrograffin enema. 02/20/23 Pt will be scheduled for a surveillance colonoscopy - scheduled on 08/11/23. Advised to hold Eliquis for 3 days before colonoscopy appt (will obtain clearance from Dr Blake) Miralax once a day for constipation. Labs in March 2023. 05/29/23 mid abdominal/periumblical pain x last week Pain is intense 9/10 in intensity Seen in the ER at [facility] and prescribed oxycodone 02/20/24 Doing OK at present. Pt reports having a normal BM 2 or more times a day. Initially had diarrhea. Notes intermittent abd discomfort due to the seroma Scheduled to see surgery at [facility] Taking Miralax once a day and laculose once a day with good evacuation and denies feeling backed up. Appetite has improved after she took prednisone. Abdominal pain is likely related to seroma. Pt advised to check a fecal calprotectin to rule out active Crohn's disease Referral sent to the dietitian to discuss diet for Crohn's disease at request of patient and her daughter. FU in 4 weeks Orders: Orders T Spot TB 02/20/24 K50.90 - Crohn's disease, unspecified, without complications Calprotectin, Fecal 02/20/24 K50.90 - Crohn's disease, unspecified, without complications Referrals [employer] Referral K50.90 - Crohn's disease, unspecified, without complications, K59.09 - Other constipation Coding Level of Care Code Est Pt Level 4 (38423) Diagnoses Crohn's disease K50.90 GERD (gastroesophageal reflux disease) K21.9 Chronic constipation K59.09 Time Spent (min) 27
[2024-02-20 07:41] VITALS: BP 85/55; PULSE 66; BMI 31.2
== END 2024-02-20 08:29 | disposition home or self-care (01) ==
PROVIDERS: PCP Internal Medicine; Visit Provider Internal Medicine Gastroenterology
DX: K50.90 Crohn's disease, unspecified, without complications (principal); K21.9 Gastro-esophageal reflux disease without esophagitis; K59.09 Other constipation
CPT/HCPCS: 99214

== ENCOUNTER → 2024-02-20 07:29 | Outpatient (BNVA) | payer MEDICAID, SELFPAY | PROVIDERS: PCP Internal Medicine; Visit Provider Internal Medicine Gastroenterology | DX: K50.90 Crohn's disease, unspecified, without complications (principal); K21.9 Gastro-esophageal reflux disease without esophagitis; K59.09 Other constipation | CPT/HCPCS: 99212 ==

== ENCOUNTER 2024-03-05 09:28 | Outpatient (REF) | payer MEDICAID, SELFPAY ==
[2024-03-05 11:10] LABS: Hematocrit 34.2 % (37.0-47.0); Hemoglobin 10.4 g/dl (12.0-16.0); Mean Corpuscular HGB Conc 30.4 g/dl (31.0-35.0); Mean Corpuscular Hemoglobin 23.7 pg (27.0-33.0); Mean Corpuscular Volume 78.1 fL (80.0-98.0); Mean Platelet Volume 12.6 fL (9.4-12.3); Platelet Count 234 X10*3/uL (160-400); Red Blood Count 4.38 X10*6/uL (4.20-5.50); Red Cell Distribution Width 16.8 % (11.0-16.0)
[2024-03-05 11:35] LABS: C Reactive Protein 0.25 mg/dL (< or = 0.50)
[2024-03-08 00:14] LABS: TS Negative Control Passed; TS Panel A 0; TS Panel B 0; TS Positive Control Passed; TSpotTB Negative (Negative)
== END 2024-03-05 09:29 | disposition home or self-care (01) ==
LOC: HO.LAB 09:28
PROVIDERS: PCP Internal Medicine; Visit Provider Internal Medicine Gastroenterology
DX: Z11.1 Encounter for screening for respiratory tuberculosis (principal); K50.10 Crohn's disease of large intestine without complications
CPT/HCPCS: 36415; 85027; 86140; 86481

== ENCOUNTER 2024-03-18 09:20 | Outpatient (AMB) | payer MEDICAID, SELFPAY ==
--- NOTE | 2024-03-18 09:24 | A.OFFVIS_ITS ---
Vital Signs 03/18/24 09:34 Height 5 ft 3 in Weight 174 lb BMI 30.8 BP 105/65 Blood Pressure Location Lt brachial Position Sitting Pulse 62 Intake Visit Reasons: abd pain Intake Note: Patient follow up from ED due abdomial pain. Patient cc: [facility] abdominal discomfort, and she denies any other GI issues. Fur Operator Required: No Accompanied by: Daughter Allergies aspirin [ASA] Allergy (Intermediate, Verified 09/09/24 18:31) RASH azathioprine [From IMURAN] Allergy (Intermediate, Verified 09/09/24 18:31) PANCREATIC INFLAMMATION ibuprofen [IBUPROFEN] Allergy (Intermediate, Verified 09/09/24 18:31) TOLD NOT TO TAKE levofloxacin [From LEVAQUIN] Allergy (Mild, Verified 09/09/24 18:31) YEAST INFECTIONS Medication List - Last Reconciled 03/18/24 by Libby Palafox MD acetaminophen (Tylenol) 650 mg PO Q4H PRN albuterol sulfate 90 mcg/actuation (ProAir HFA) 2 puffs PO Q4H PRN apixaban (Eliquis) 5 mg PO BID budesonide-formoterol 160-4.5 mcg/actuation (Symbicort) 2 puffs PO BID calcium carbonate 500 mg PO BID calcium carbonate-vitamin D3 600 mg-10 mcg (400 unit) 1 tab PO BID carboxymethylcellulose sodium 1% 1 drp ophthalmic (eye) BID PRN clonazepam 0.5 mg PO BEDTIME PRN docusate sodium 1 cap PO BID PRN famotidine (Pepcid) 20 mg PO BID PRN folic acid 1 mg PO DAILY 60 days gabapentin 100 mg PO BID hydroxyzine HCl 1 tab PO BID PRN lactulose 20 grams (30 mL) PO DAILY lidocaine 4% 1 patch topical DAILY PRN melatonin 3 mg PO BEDTIME PRN methotrexate sodium 25 mg PO FR montelukast 1 tab PO BEDTIME multivitamin 1 tab PO QAM ondansetron 4 mg PO Q6H oxybutynin chloride ER 15 mg PO DAILY 30 days paroxetine HCl 40 mg PO QAM polyethylene glycol 3350 (Miralax) 17 grams PO BID 30 days risperidone 1 mg PO BID topiramate 100 mg PO BID ustekinumab (Stelara) 90 mg subcut Q4W vitamin B complex-folic acid 0.4 mg (B Complex 1 (with folic acid)) 1 tab PO QAM zolpidem 5 mg PO BEDTIME PRN HPI HPI abd pain: Details: GI FU visit for this 53-year-old female for FU of Crohn's disease. Next Stelara infusion scheduled on 04/08/24 Pt is on chronic anticoagulation with Eliquis because of history of pulmonary embolism. Urgent FU appt scheduled after recent hospitalization from 02/10 to 02/12/24: Hospital course The patient was admitted for treatment of Acute obstipation and stercoral colitis related to opioid use as CT abdomen/pelvis consistent with constipation with a large amount of fecal material present in the colon rectum and fecal material with mildly obstructive effect. as she was manually disimpacted in ED and started on Miralax, Enema and Lactulose with good response as she moved her bowels overnight and repeated KUB showed interval resolution of the constipation. Seen by GI who recommended to increase Miralax and Start LActulose on discharge with a plan to follow as outpatient. The patient had SIRS with leukocytosis likely related to inflammation and chronic steroid use. Tachycardia r/t pain and anxiety. lactic acidosis from dehydration not due to sepsis. No signs of infection. To follow with GI as outpatient. Discharge plan Start Lactulose once daily Increase Miralax to twice daily follow with dr Palafox as outpatient ?? ? CHRONIC ILLNESSES:?RA, GERD, asthma, sleep apnea, iron def anemia, anxiety and depression ?LABS IN [facility]:04/28/20 Reviewed H&H of 11.2 and 36.7, CHEM PANEL AND LFTS. ? Improvement in LFTs with AST of 32 (decreased from 93) and ALT of 70 (decreased from 190) , alkaline phosphatase 97, FERRITIN 40 ? CRP 2.20 (increased from 0.71 on 03/24/20) ? 08/12 STOOL CALPROTECTIN WAS 714 (DECREASED FROM > 2000 IN 12/11) 01/11 T spot was negative. ? IMAGING STUDIES: 09/08/[address] SCAN SHOWED: Narrowing of the segment of the proximal sigmoid colon with wall enhancement and thickening is noted which is a chronic finding as seen on multiple previous CT scans; however, possibility of mild increased wall thickening and enhancement in the region cannot be completely excluded. Given the dilatation of the colon proximal to this level on current examination, possibility of at least partial obstruction related to the proximal sigmoid colon stricture is suspected. The findings are most probably related to patient's known inflammatory bowel disease; however, again possibility of neoplastic process here cannot be completely excluded. 03/[address] SCAN SHOWED:? There is a long segment of colitis from the mid transverse colon ? through the distal rectum sigmoid consistent with history of Crohn's ? disease. There has been progression of disease since prior exam of 12/16/2019. ENDOSCOPIC STUDIES:?09/28/21 EGD SHOWED: ESOPHAGUS: GE junction at 36 cms.? Focal esophagitis with a 1 cms ulcer at GEJ. No stricture or ring noted.? Scattered white exudates in the proximal and mid esophagus suggestive of esophageal candidiasis - biopsies obtained to check for Karo/EOE. STOMACH: Gastritis - biopsied to check for H Pylori Plan:? Start Fluconazole for esophageal candidiasis - likely source of dysphagia and odynophagia. Resume Eliquis tonight. 09/13/21 FLEXIBLE SIGMOIDOSCOPY SHOWED: Flexible Sigmoidoscopy Findings: Focal tight stricture from 15 to 18 cms with ulcerations. Stricture was dilated with a 10, 11 and 12 mm (36 F) CRE balloon x 60 sec at each level. Biopsies were obtained from the stricture and colon at 30 and 10 cms (proximal and distal to the stricture) Plan:? Resume full liquid diet tonight and advance diet as tolerated. OK to resume Eliquis in the am. Switch to PO prednisone at 40 mg in the am and taper by 10 mg every 5 days over 3 weeks. BIOPSIES SHOWED: A.? Colon, sigmoid at 30 cm, biopsy:? Focal chronic colitis without activity; negative for dysplasia and carcinoma. B.? Colon, sigmoid at 18 cm, stricture, biopsy:? Chronic colitis with mild to severe activity and active ulcer with granulation tissue, superficial fragments; negative for dysplasia and carcinoma. C.? Colon, sigmoid at 10 cm, biopsy:? Chronic colitis without activity; negative for dysplasia and carcinoma. Colonoscopy in 01/18/20 showed patchy erythema throughout the colon - surveillance biopsies were obtained. Focal area of ulcerations with a tight stricture at 18 to 20 cms and unable to pass the colonoscope through the stricture. Stricture was dilated with a 12mm (26 F) CRE balloon and colonoscope was then advanced into the colon. Patchy erythema with focal ulcers in the distal rectum. Inflammation in the recto-sigmoid significantly improved from last year - severe left sided colitis with minimal inflammation in the remaining colon. were negative for CMV. TODAY'S VISIT:? Patient cc: [facility] center abdominal discomfort, and she denies any other GI issues. Pt is accompanied by her daughter, Madelin who interpreted.? Notes improvement in abdominal pain. Feels everything is controlled right now?? Doing OK at present. Pt reports having a normal BM 2 or more times a day. Initially had diarrhea. Notes intermittent abd discomfort due to the seroma Scheduled to see surgery at [facility] Taking Miralax once a day and laculose once a day with good evacuation and denies feeling backed up. Appetite has improved after she took prednisone. Daughter is requesting referral to the [facility] to help with diet. PAST VISITS: Patient cc: after hernia surgery she is been with a lot of abdominal pain on and off, today she is dizzy and her BP is low. Patient said everything is okay and no GI issues today Complains of mid abdominal/periumblical pain x last week Pain is intense 9/10 in intensity Seen in the ER at [facility] and prescribed oxycodone Does not eat when she has pain - does not feel like eating. Complains of constipation - has a BM every 1-2 days. Takes prune juice which helps. Takes docusate twice a day for constipation. Denies black stools or rectal bleeding. PAST VISITS: Had ileostomy reversal 2 months ago. Surgery went well. Has a BM 2-3 times a day, has constipation on some days and does not go on some days Feeling regular Has an appt with colorectal surgeon at [facility] on 10/24/22. Pt states, the surgeon will discuss reversal of colostomy. Last Stelara injection was on Sep 25, 2022 and next injection scheduled on 10/23/22. Pt denies abdominal pain and reports a good appetite Pt is accompanied by her daughter, Aissatou. EGD results were reviewed with the patient. Denies abdominal pain or rectal bleeding. Comes to short stay for her Stelara injection - last injection 01/31/22. Next injection scheduled on 02/28/22 at 9:30 am. Not taking MTX - prescription was stopped without anyone telling the pt - prescription renewed. Has been feeling better since discharge from the hospital 10 days ago - I have abdominal pain. Sometimes when I swallow the food gets stuck - symptoms associated with solid food. Its painful to swallow. Dysphagia episodes are frequent. Food goes down with water and is very painful. Has 6-7 BMs a day. On prednisone taper at 30 mg daily and will decrease to 20 mg daily in 2 days. IBD Summary: ? Year of diagnosis: Crohn's disease diagnosed in [address] scan. ? Disease Extent: Colon ? Past treatments: Azathioprine caused pancreatitis, ? She was initially treated with Remicade which did not work and she was switched to Humira. ? Treated with Entyvio for a few months which was stopped due to side effects. ? In 09/2016, she was treated with Stelara every 8 weeks which worked well for her. ? She has been treated with Prednisone intermittently. ? Previous Endoscopic Evaluations: 01/18/20 COLONOSCOPY SHOWED: One small hyperplastic rectal polyp removed. Patchy erythema throughout the colon - surveillance biopsies were obtained. Focal area of ulcerations with a tight stricture at 18 to 20 cms and unable to pass the colonoscope through the stricture. Stricture was dilated with a 12mm (26 F) CRE balloon and colonoscope was then advanced into the colon. Patchy erythema with focal ulcers in the distal rectum. Inflammation in the recto-sigmoid significantly improved from last year - biopsies were obtained for histology. EGD and colonoscopy on 08/20/2016. ? EGD showed diffuse whittish plaques in the esophagus and diffuse erythema of the mucosa in the cardia. ? Biopsies were obtained. ? Colonoscopy showed normal mucosa in the right colon and patchy erythema and erosions in the left colon. Diffuse erythema and erosions were seen involving most of the rectum. ? Past Surgeries: She underwent Colon surgery (? removal of sigmoid colon) with colostomy at [facility] in 2010. She had reversal of colostomy in Dec, 2011. She developed a peristomal hernia. Last seen at [facility] in 11/2020 and requesting an appointment. Increased MTX to 25 mg (10 tablets) from 5 or 6 tablets daily in?March [facility] Medical History Urge incontinence Stricture of colon Normocytic anemia Anxiety Sleep apnea Asthma GERD (gastroesophageal reflux disease) Pulmonary embolism Crohn's disease PTSD (post-traumatic stress disorder) Recurrent major depression-severe Crohn's colitis Hyperlipidemia Hemorrhagic cyst of ovary Kidney stones Depression Iron deficiency anemia Rheumatoid arthritis Migraine Cancer HTN (hypertension) Surgical History (Updated 11/08/24 @ 10:07 by Leesa Hanson) History of esophagogastroduodenoscopy (EGD) History of colon resection History of colon resection Hx of dilation and curettage Hx of cystoscopy Hx of cystoscopy Hx of colonoscopy (~10/2018) Hx of endoscopy Social History Household Members: None Housing: Apartment Are you a primary customer care agent to a significant other at home: No Do you presently have visiting nurse or other home services: No Alcohol intake: never Patient Tobacco Use Status: Former Tobacco user Tobacco use type: Cigarette Cigarettes Per Day: 1 Years Smoked: 10 e-Cigarette/Vaping Use: Never Used Second Hand Smoke Exposure: No Use of substances other than those prescribed or required for medical reasons: Yes Substance Use Type: Marijuana Have you been hit, kicked, punched, or otherwise hurt by someone within the past year? If so, by whom?: No Are you DNR?: No Advance Directives: No Advance Directives Information Provided: Yes Advance Directives Date on File: 09/17/21 Recently lost weight without trying: No service: No Current occupational status: unemployed and disabled Sexual orientation: Straight/Heterosexual Review of Systems Const All systems reviewed & are unremarkable except as noted in HPI and below Physical Exam Vital Signs: Last Vital Signs Pulse 62 03/18/24 09:34 BP 105/65 03/18/24 09:34 BMI result Body Mass Index 30.8 Last Vital Signs Temp 97.8 F 02/12/24 07:29 Pulse 59 02/12/24 07:51 Resp 14 02/12/24 07:51 BP 110/61 02/12/24 07:29 Pulse Ox 97 02/12/24 07:29 O2 Del Method Room Air 02/12/24 07:29 BMI result Body Mass Index 31.9 Const Other: Constitutional : Awake, interactive, not in distress Neck : Normal inspection, Supple Cardiovascular : RRR, no JVP, no lower extremity edema Respiratory : good bilateral air entry, no crackles, wheezes or rhonchi Gastrointestinal: soft, lax, Normal bowel sounds, Non tender Skin : Warm, Dry Neurological : Alert & oriented x3, No focal deficit Assessment & Plan Assessment & Plan (1) Vitamin D deficiency: Code(s): E55.9 - Vitamin D deficiency, unspecified Category: Medical (2) Crohn's disease: Code(s): K50.90 - Crohn's disease, unspecified, without complications Category: Medical (3) GERD (gastroesophageal reflux disease): Code(s): K21.9 - Gastro-esophageal reflux disease without esophagitis Category: Medical (4) Chronic constipation: Code(s): K59.09 - Other constipation Category: Medical Plan 53 YF with RA, GERD, asthma, sleep apnea, iron def anemia, intermittent compliance with follow up appointments, anxiety, depression with some memory loss with Crohn's disease involving the left colon (and suspected jejunal involvement). Pt was diagnosed with Crohn's colitis 22 yrs ago and is status post sigmoid colectomy with colostomy in 2010, reversal of colostomy in 2011. She has failed treatment with multiple medications in the past due to lack of efficacy or side effects including Remicade, Humira, Cimzia, Entyvio, azathioprine caused pancreatitis. She has been on Stelara every 8 weeks which had worked well for her in the past. Dose of Stelara was increased to every 4 weeks 2 years ago due to breakthrough symptoms and low trough levels. She has been treated with Prednisone intermittently for CD flares. Patient was seen at [facility] IBD clinic for a 2nd opinion regarding treatment options and addition of methotrexate was advised. Patient was started on methotrexate 25 mg intramuscularly every week on 04/13/19 in the Oncology clinic. She was switched to p.o. methotrexate 50 mg once a week in Sep, 2019 - now taking 25 mg every week. She is also on budesonide 9 mg once daily. She continues to have intermittent flares requiring IV steroids. Pt was seen at [facility] on 05/03/20 and dose of MTX was increased to 25 mg PO (10 tab) every week from 5 or 6 tablets daily in March 2020. 09/13/21 Flexible sigmoidoscopy showed a?focal tight stricture from 15 to 18 cms with ulcerations. Stricture was dilated to 12 mm (36 F) with a CRE balloon. Biopsies obtained from the stricture showed chronic colitis with mild to severe activity and active ulcer with granulation tissue - negative for dysplasia and carcinoma? ?Biopsies obtained from 30 and 10 cms (proximal and distal to the stricture) showed focal chronic colitis without activity. 05/17/22 Pt had Robot assisted laparoscopic lysis of adhesions with resection of colorectal anastomosis and new colorectal anastomosis with loop ileostomy and left ureterolysis and mobilization of the splenic flexure by Dr Mcdonough, colorectal surgeon, [facility].? No dysplasia noted on histology. She has a FU appt to schedule ileostomy reversal after gastrograffin enema. 02/20/23 Pt will be scheduled for a surveillance colonoscopy - scheduled on 08/11/23. Advised to hold Eliquis for 3 days before colonoscopy appt (will obtain clearance from Dr Blake) Miralax once a day for constipation. Labs in March 2023. 05/29/23 mid abdominal/periumblical pain x last week Pain is intense 9/10 in intensity Seen in the ER at [facility] and prescribed oxycodone 02/20/24 Doing OK at present. Pt reports having a normal BM 2 or more times a day. Initially had diarrhea. Notes intermittent abd discomfort due to the seroma Scheduled to see surgery at [facility] Taking Miralax once a day and laculose once a day with good evacuation and denies feeling backed up. Appetite has improved after she took prednisone. Abdominal pain is likely related to seroma. Pt advised to check a fecal calprotectin to rule out active Crohn's disease Referral sent to the dietitian to discuss diet for Crohn's disease at request of patient and her daughter. 03/18/24 Doing OK at present. Pt reports having a normal BM 2 or more times a day. Initially had diarrhea. Notes intermittent abd discomfort due to the seroma Scheduled to see surgery at [facility] FU in 4 months Coding Level of Care Code Est Pt Level 4 (50028) Diagnoses Vitamin D deficiency E55.9 Crohn's disease K50.90 GERD (gastroesophageal reflux disease) K21.9 Chronic constipation K59.09 Time Spent (min) 24
[2024-03-18 09:34] VITALS: BP 105/65; PULSE 62; BMI 30.8
== END 2024-03-18 10:25 | disposition home or self-care (01) ==
PROVIDERS: PCP Internal Medicine; Visit Provider Internal Medicine Gastroenterology
DX: E55.9 Vitamin D deficiency, unspecified (principal); K50.90 Crohn's disease, unspecified, without complications; K21.9 Gastro-esophageal reflux disease without esophagitis; K59.09 Other constipation
CPT/HCPCS: 99499

== ENCOUNTER 2024-05-19 10:58 | Outpatient (REF) | payer MEDICAID, SELFPAY ==
[2024-05-19 14:12] LABS: Alanine Aminotransferase 11 U/L (0-31); Albumin Level 3.9 g/dL (3.5-5.0); Alkaline Phosphatase 83 U/L (39-117); Anion Gap 13 (12-20); Aspartate Amino Transferase 14 U/L (5-31); Bilirubin Total 0.1 mg/dL (0.0-1.0); Blood Urea Nitrogen 17 mg/dL (9-16); Calcium 9.2 mg/dL (8.4-10.2); Carbon Dioxide 24 mmol/L (22-29); Chloride 109 mmol/L (96-108); Cholesterol 207 mg/dL (<200); Estimated Glomerular Filt Rate > 60; Glucose Random 70 mg/dL (60-115); HDL Cholesterol 41 mg/dL (>40); LDL Cholesterol Calculated 124 mg/dL (<100); Potassium 4.5 mmol/L (3.3-5.1); Sodium 141 mmol/L (135-145); Total Protein 7.4 g/dL (6.5-8.0); Triglycerides 214 mg/dL (<150)
[2024-05-19 15:01] LABS: Reflex LDLD? No
[2024-05-19 15:41] LABS: Estimated Average Glucose 111 mg/dL; Hemoglobin A1c % 5.5 % (<6.0)
== END 2024-05-19 10:59 | disposition home or self-care (01) ==
LOC: HO.HHCL 10:58
PROVIDERS: Visit Provider Internal Medicine
DX: I10 Essential (primary) hypertension (principal)
CPT/HCPCS: 36415; 80053; 80061; 83036

== ENCOUNTER 2024-05-31 10:06 | Outpatient (AMB) | payer MEDICAID, SELFPAY ==
--- NOTE | 2024-05-31 10:15 | MHC.OFFVIS ---
Vital Signs 05/31/24 10:16 Height 5 ft 3 in Weight 173 lb BMI 30.6 BP 104/61 Blood Pressure Location Lt brachial Position Sitting Pulse 83 Intake Visit Reasons: 4 months Constipation Intake Note: Patient follow up for constipation. Patient denies any GI issues for today. 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 Accompanied by: Self / Same As Patient Allergies aspirin [ASA] Allergy (Intermediate, Verified 05/31/24 10:14) RASH azathioprine [From IMURAN] Allergy (Intermediate, Verified 03/18/24 09:32) PANCREATIC INFLAMMATION ibuprofen [IBUPROFEN] Allergy (Intermediate, Verified 03/18/24 09:32) TOLD NOT TO TAKE levofloxacin [From LEVAQUIN] Allergy (Mild, Verified 03/18/24 09:32) YEAST INFECTIONS Medication List - Last Reconciled 05/31/24 by Libby Palafox MD acetaminophen (Tylenol) 650 mg PO Q4H PRN albuterol sulfate 90 mcg/actuation (ProAir HFA) 2 puffs PO Q4H PRN apixaban (Eliquis) 5 mg PO BID budesonide-formoterol 160-4.5 mcg/actuation (Symbicort) 2 puffs PO BID calcium carbonate 500 mg PO BID calcium carbonate-vitamin D3 600 mg-10 mcg (400 unit) 1 tab PO BID carboxymethylcellulose sodium 1% 1 drp ophthalmic (eye) BID PRN clonazepam 0.5 mg PO BEDTIME PRN docusate sodium 1 cap PO BID PRN famotidine (Pepcid) 20 mg PO BID PRN folic acid 1 mg PO DAILY 60 days gabapentin 100 mg PO BID hydroxyzine HCl 1 tab PO BID PRN lactulose 20 grams (30 mL) PO DAILY lidocaine 4% 1 patch topical DAILY PRN melatonin 3 mg PO BEDTIME PRN methotrexate sodium 25 mg (10 x 2.5 mg) PO FR 90 days montelukast 1 tab PO BEDTIME multivitamin 1 tab PO QAM ondansetron 4 mg PO Q6H oxybutynin chloride ER 15 mg PO DAILY 30 days paroxetine HCl 40 mg PO QAM polyethylene glycol 3350 (Miralax) 17 grams PO BID 30 days risperidone 1 mg PO BID topiramate 100 mg PO BID ustekinumab (Stelara) 90 mg subcut Q4W vitamin B complex-folic acid 0.4 mg (B Complex 1 (with folic acid)) 1 tab PO QAM zolpidem 5 mg PO BEDTIME PRN HPI HPI 4 months Constipation: Details: GI FU visit for this 53-year-old female for FU of Crohn's disease. Next Stelara infusion scheduled on 06/03/24 Pt is on chronic anticoagulation with Eliquis because of history of pulmonary embolism. CHRONIC ILLNESSES:?RA, GERD, asthma, sleep apnea, iron def anemia, anxiety and depression? ? ? TODAY'S VISIT:? Feeling better and denies abdominal pain, diarrhea or constipation Abdominal pain was likely due to abd wall seroma - now resolved PAST VISITS: Patient cc: [facility] center abdominal discomfort, and she denies any other GI issues. Pt is accompanied by her daughter, Madelin who interpreted.? Notes improvement in abdominal pain. Feels everything is controlled right now?? Doing OK at present. Pt reports having a normal BM 2 or more times a day. Initially had diarrhea. Notes intermittent abd discomfort due to the seroma Scheduled to see [place] [facility] [place] Miralax once a day and laculose once a day with good evacuation and denies feeling backed up. Appetite has improved after she took prednisone. Daughter is requesting referral to the Director Oracle to help with diet. Urgent FU appt scheduled after recent hospitalization from 02/10 to 02/12/24: Hospital course The patient was admitted for treatment of Acute obstipation and stercoral colitis related to opioid use as CT abdomen/pelvis consistent with constipation with a large amount of fecal material present in the colon rectum and fecal material with mildly obstructive effect. as she was manually disimpacted in ED and started on Miralax, Enema and Lactulose with good response as she moved her bowels overnight and repeated KUB showed interval resolution of the constipation. Seen by GI who recommended to increase Miralax and Start LActulose on discharge with a plan to follow as outpatient. The patient had SIRS with leukocytosis likely related to inflammation and chronic steroid use. Tachycardia r/t pain and anxiety. lactic acidosis from dehydration not due to sepsis. No signs of infection. To follow with GI as outpatient. Discharge plan Start Lactulose once daily Increase Miralax to twice daily follow with dr Palafox as outpatient ?? ? Patient cc: after hernia surgery she is been with a lot of abdominal pain on and off, today she is dizzy and her BP is low. Patient said everything is okay and no GI issues today Complains of mid abdominal/periumblical pain x last week Pain is intense 9/10 in intensity Seen in the ER at [facility] and prescribed oxycodone Does not eat when she has pain - does not feel like eating. Complains of constipation - has a BM every 1-2 days. Takes prune juice which helps. Takes docusate twice a day for constipation. Denies black stools or rectal bleeding. PAST VISITS: Had ileostomy reversal 2 months ago. Surgery went well. Has a BM 2-3 times a day, has constipation on some days and does not go on some days Feeling regular Has an appt with colorectal surgeon [place] [facility] [place]. Pt states, the surgeon will discuss reversal of colostomy. Last Stelara injection was on Sep 25, 2022 and next injection scheduled on 10/23/22. Pt denies abdominal pain and reports a good appetite Pt is accompanied by her daughter, Aissatou. EGD results were reviewed with the patient. Denies abdominal pain or rectal bleeding. Comes to short stay for her Stelara injection - last injection 01/31/22. Next injection scheduled on 02/28/22 at 9:30 am. Not taking MTX - prescription was stopped without anyone telling the pt - prescription renewed. Has been feeling better since discharge from the hospital 10 days ago - I have abdominal pain. Sometimes when I swallow the food gets stuck - symptoms associated with solid food. Its painful to swallow. Dysphagia episodes are frequent. Food goes down with water and is very painful. Has 6-7 BMs a day. On prednisone taper at 30 mg daily and will decrease to 20 mg daily in 2 days. IBD Summary: ? Year of diagnosis: Crohn's disease diagnosed in [address] scan. ? Disease Extent: Colon ? Past treatments: Azathioprine caused pancreatitis, ? She was initially treated with Remicade which did not work and she was switched to Humira. ? Treated with Entyvio for a few months which was stopped due to side effects. ? In 09/2016, she was treated with Stelara every 8 weeks which worked well for her. ? She has been treated with Prednisone intermittently. ? Previous Endoscopic Evaluations: 01/18/20 COLONOSCOPY SHOWED: One small hyperplastic rectal polyp removed. Patchy erythema throughout the colon - surveillance biopsies were obtained. Focal area of ulcerations with a tight stricture at 18 to 20 cms and unable to pass the colonoscope through the stricture. Stricture was dilated with a 12mm (26 F) CRE balloon and colonoscope was then advanced into the colon. Patchy erythema with focal ulcers in the distal rectum. Inflammation in the recto-sigmoid significantly improved from last year - biopsies were obtained for histology. EGD and colonoscopy on 08/20/2016. ? EGD showed diffuse whittish plaques in the esophagus and diffuse erythema of the mucosa in the cardia. ? Biopsies were obtained. ? Colonoscopy showed normal mucosa in the right colon and patchy erythema and erosions in the left colon. Diffuse erythema and erosions were seen involving most of the rectum. ? Past Surgeries: She underwent Colon surgery (? removal of sigmoid colon) with colostomy at [facility] in 2010. She had reversal of colostomy in Dec, 2011. She developed a peristomal hernia. Last seen at [facility] in 11/2020 and requesting an appointment. Increased MTX to 25 mg (10 tablets) from 5 or 6 tablets daily in?[facility]04/28/20 Reviewed H&H of 11.2 and 36.7, CHEM PANEL AND LFTS. ? Improvement in LFTs with AST of 32 (decreased from 93) and ALT of 70 (decreased from 190) , alkaline phosphatase 97, FERRITIN 40 ? CRP 2.20 (increased from 0.71 on 03/24/20) ? 08/12 STOOL CALPROTECTIN WAS 714 (DECREASED FROM > 2000 IN 12/11) 01/11 T spot was negative. ? IMAGING STUDIES: 09/08/[address] SCAN SHOWED: Narrowing of the segment of the proximal sigmoid colon with wall enhancement and thickening is noted which is a chronic finding as seen on multiple previous CT scans; however, possibility of mild increased wall thickening and enhancement in the region cannot be completely excluded. Given the dilatation of the colon proximal to this level on current examination, possibility of at least partial obstruction related to the proximal sigmoid colon stricture is suspected. The findings are most probably related to patient's known inflammatory bowel disease; however, again possibility of neoplastic process here cannot be completely excluded. 03/[address] SCAN SHOWED:? There is a long segment of colitis from the mid transverse colon ? through the distal rectum sigmoid consistent with history of Crohn's ? disease. There has been progression of disease since prior exam of 12/16/2019. ENDOSCOPIC STUDIES:?09/28/21 EGD SHOWED: ESOPHAGUS: GE junction at 36 cms.? Focal esophagitis with a 1 cms ulcer at GEJ. No stricture or ring noted.? Scattered white exudates in the proximal and mid esophagus suggestive of esophageal candidiasis - biopsies obtained to check for Karo/EOE. STOMACH: Gastritis - biopsied to check for H Pylori Plan:? Start Fluconazole for esophageal candidiasis - likely source of dysphagia and odynophagia. Resume Eliquis tonight. 09/13/21 FLEXIBLE SIGMOIDOSCOPY SHOWED: Flexible Sigmoidoscopy Findings: Focal tight stricture from 15 to 18 cms with ulcerations. Stricture was dilated with a 10, 11 and 12 mm (36 F) CRE balloon x 60 sec at each level. Biopsies were obtained from the stricture and colon at 30 and 10 cms (proximal and distal to the stricture) Plan:? Resume full liquid diet tonight and advance diet as tolerated. OK to resume Eliquis in the am. Switch to PO prednisone at 40 mg in the am and taper by 10 mg every 5 days over 3 weeks. BIOPSIES SHOWED: A.? Colon, sigmoid at 30 cm, biopsy:? Focal chronic colitis without activity; negative for dysplasia and carcinoma. B.? Colon, sigmoid at 18 cm, stricture, biopsy:? Chronic colitis with mild to severe activity and active ulcer with granulation tissue, superficial fragments; negative for dysplasia and carcinoma. C.? Colon, sigmoid at 10 cm, biopsy:? Chronic colitis without activity; negative for dysplasia and carcinoma. Colonoscopy in 01/18/20 showed patchy erythema throughout the colon - surveillance biopsies were obtained. Focal area of ulcerations with a tight stricture at 18 to 20 cms and unable to pass the colonoscope through the stricture. Stricture was dilated with a 12mm (26 F) CRE balloon and colonoscope was then advanced into the colon. Patchy erythema with focal ulcers in the distal rectum. Inflammation in the recto-sigmoid significantly improved from last year - severe left sided colitis with minimal inflammation in the remaining colon. were negative for CMV. [facility] Medical History (Updated 03/18/24 @ 09:29 by Libby Palafox MD) Stricture of colon Urge incontinence Normocytic anemia Anxiety Sleep apnea Asthma GERD (gastroesophageal reflux disease) Pulmonary embolism Crohn's disease PTSD (post-traumatic stress disorder) Recurrent major depression-severe Crohn's colitis Hyperlipidemia Hemorrhagic cyst of ovary Kidney stones Depression Iron deficiency anemia Rheumatoid arthritis Migraine Cancer HTN (hypertension) Surgical History History of colon resection History of colon resection Hx of dilation and curettage Hx of cystoscopy Hx of cystoscopy Hx of colonoscopy (~10/2018) Hx of endoscopy Social History Household Members: None Housing: Apartment Do you presently have visiting nurse or other home services: No Alcohol intake: never Patient Tobacco Use Status: Former Tobacco user Tobacco use type: Cigarette Cigarettes Per Day: 1 Years Smoked: 10 e-Cigarette/Vaping Use: Never Used Second Hand Smoke Exposure: No Substance Use Type: Marijuana Advance Directives Date on File: 09/17/21 service: No Current occupational status: unemployed and disabled Sexual orientation: Straight/Heterosexual Review of Systems Const All systems reviewed & are unremarkable except as noted in HPI and below Physical Exam Vital Signs: Last Vital Signs Pulse 83 05/31/24 10:16 BP 104/61 05/31/24 10:16 BMI result Body Mass Index 30.6 Last Vital Signs Temp 97.8 F 02/12/24 07:29 Pulse 59 02/12/24 07:51 Resp 14 02/12/24 07:51 BP 110/61 02/12/24 07:29 Pulse Ox 97 02/12/24 07:29 O2 Del Method Room Air 02/12/24 07:29 BMI result Body Mass Index 31.9 Const Other: Constitutional : Awake, interactive, not in distress Neck : Normal inspection, Supple Cardiovascular : RRR, no JVP, no lower extremity edema Respiratory : good bilateral air entry, no crackles, wheezes or rhonchi Gastrointestinal: soft, lax, Normal bowel sounds, Non tender Skin : Warm, Dry Neurological : Alert & oriented x3, No focal deficit Assessment & Plan Assessment & Plan (1) Vitamin D deficiency: Code(s): E55.9 - Vitamin D deficiency, unspecified Category: Medical (2) Crohn's disease: Code(s): K50.90 - Crohn's disease, unspecified, without complications Category: Medical (3) GERD (gastroesophageal reflux disease): Code(s): K21.9 - Gastro-esophageal reflux disease without esophagitis Category: Medical (4) Chronic constipation: Code(s): K59.09 - Other constipation Category: Medical Plan 53 YF with RA, GERD, asthma, sleep apnea, iron def anemia, intermittent compliance with follow up appointments, anxiety, depression with some memory loss with Crohn's disease involving the left colon (and suspected jejunal involvement). Pt was diagnosed with Crohn's colitis 22 yrs ago and is status post sigmoid colectomy with colostomy in 2010, reversal of colostomy in 2011. She has failed treatment with multiple medications in the past due to lack of efficacy or side effects including Remicade, Humira, Cimzia, Entyvio, azathioprine caused pancreatitis. She has been on Stelara every 8 weeks which had worked well for her in the past. Dose of Stelara was increased to every 4 weeks 2 years ago due to breakthrough symptoms and low trough levels. She has been treated with Prednisone intermittently for CD flares. Patient was seen at [facility] clinic for a 2nd opinion regarding treatment options and addition of methotrexate was advised. Patient was started on methotrexate 25 mg intramuscularly every week on 04/13/19 in the Oncology clinic. She was switched to p.o. methotrexate 50 mg once a week in Sep, 2019 - now taking 25 mg every week. She is also on budesonide 9 mg once daily. She continues to have intermittent flares requiring IV steroids. Pt was seen at [facility] on 05/03/20 and dose of MTX was increased to 25 mg PO (10 tab) every week from 5 or 6 tablets daily in March 2020. 09/13/21 Flexible sigmoidoscopy showed a?focal tight stricture from 15 to 18 cms with ulcerations. Stricture was dilated to 12 mm (36 F) with a CRE balloon. Biopsies obtained from the stricture showed chronic colitis with mild to severe activity and active ulcer with granulation tissue - negative for dysplasia and carcinoma? ?Biopsies obtained from 30 and 10 cms (proximal and distal to the stricture) showed focal chronic colitis without activity. 05/17/22 Pt had Robot assisted laparoscopic lysis of adhesions with resection of colorectal anastomosis and new colorectal anastomosis with loop ileostomy and left ureterolysis and mobilization of the splenic flexure by Dr Mcdonough, colorectal surgeon, [facility].? No dysplasia noted on histology. She has a FU appt to schedule ileostomy reversal after gastrograffin enema. 02/20/23 Pt will be scheduled for a surveillance colonoscopy - scheduled on 08/11/23. Advised to hold Eliquis for 3 days before colonoscopy appt (will obtain clearance from Dr Blake) Miralax once a day for constipation. Labs in March 2023. 05/29/23 mid abdominal/periumblical pain x last week Pain is intense 9/10 in intensity Seen in the ER at [facility] and prescribed oxycodone 02/20/24 Doing OK at present. Pt reports having a normal BM 2 or more times a day. Initially had diarrhea. Notes intermittent abd discomfort due to the seroma Scheduled to see surgery [place] [facility] Taking Miralax once a day and laculose once a day with good evacuation and denies feeling backed up. Appetite has improved after she took prednisone. Abdominal pain is likely related to seroma. Pt advised to check a fecal calprotectin to rule out active Crohn's disease Referral sent to the dietitian to discuss diet for Crohn's disease at request of patient and her daughter. 05/31/24 Feeling better and denies abdominal pain, diarrhea or constipation Abdominal pain was likely due to abd wall seroma - now resolved Advised to schedule an EGD (FU of esophagitis) and Colon (FU of Crohn's disease) FU in 4 months Coding Level of Care Code Est Pt Level 4 (86331) Diagnoses Vitamin D deficiency E55.9 Crohn's disease K50.90 GERD (gastroesophageal reflux disease) K21.9 Chronic constipation K59.09 Time Spent (min) 24
[2024-05-31 10:16] VITALS: BP 104/61; PULSE 83; BMI 30.6
== END 2024-05-31 13:06 | disposition home or self-care (01) ==
PROVIDERS: PCP Internal Medicine; Visit Provider Internal Medicine Gastroenterology
DX: E55.9 Vitamin D deficiency, unspecified (principal); K50.90 Crohn's disease, unspecified, without complications; K21.9 Gastro-esophageal reflux disease without esophagitis; K59.09 Other constipation
CPT/HCPCS: 99214

== ENCOUNTER → 2024-05-31 10:06 | Outpatient (BNVA) | payer MEDICAID, SELFPAY | PROVIDERS: PCP Internal Medicine; Visit Provider Internal Medicine Gastroenterology | DX: K50.90 Crohn's disease, unspecified, without complications (principal); K59.09 Other constipation; K21.9 Gastro-esophageal reflux disease without esophagitis; E55.9 Vitamin D deficiency, unspecified; I26.99 Other pulmonary embolism without acute cor pulmonale; Z79.01 Long term (current) use of anticoagulants | CPT/HCPCS: 99212 ==

== ENCOUNTER 2024-06-10 08:58 | Outpatient (AMB) | payer MEDICAID, SELFPAY ==
--- NOTE | 2024-06-10 09:06 | A.OFFVIS_ITS ---
Vital Signs 3 06/10/24 09:11 Height 5 ft 3 in Weight 175 lb BMI 31.0 BP 140/60 H Blood Pressure Location Lt brachial Position Sitting Pulse 73 Intake Visit Reasons: sebaceous cyst on breast and rash Intake Note: Patient is seen in office for evaluation of a sebaceous cyst of the left buttock. 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 These have been present for several years at but are increasing in size and causing some discomfort. She denies a previous history of infection or discharge from the site. She is concerned that the lesions are increasing in size. She is requesting excision. [facility] Medical History Stricture of colon Urge incontinence Normocytic anemia Anxiety Sleep apnea Asthma GERD (gastroesophageal reflux disease) Pulmonary embolism Crohn's disease PTSD (post-traumatic stress disorder) Recurrent major depression-severe Crohn's colitis Hyperlipidemia Hemorrhagic cyst of ovary Kidney stones Depression Iron deficiency anemia Rheumatoid arthritis Migraine Cancer HTN (hypertension) Surgical History History of colon resection History of colon resection Hx of dilation and curettage Hx of cystoscopy Hx of cystoscopy Hx of colonoscopy (~10/2018) Hx of endoscopy Social History Household Members: None Housing: Apartment Do you presently have visiting nurse or other home services: No Alcohol intake: never Patient Tobacco Use Status: Former Tobacco user Tobacco use type: Cigarette Cigarettes Per Day: 1 Years Smoked: 10 e-Cigarette/Vaping Use: Never Used Second Hand Smoke Exposure: No Substance Use Type: Marijuana Advance Directives Date on File: 09/17/21 service: No Current occupational status: unemployed and disabled Sexual orientation: Straight/Heterosexual Review of Systems Const All systems reviewed & are unremarkable except as noted in HPI and below Denies chills, Denies fever(s), Denies headache(s), Denies poor appetite and Denies weakness ENT Denies headache(s) Card Denies chest pain, Denies irregular heart rhythm, Denies palpitations and Denies dyspnea Resp Denies cough, Denies excessive phlegm production and Denies dyspnea GI Denies abdominal pain, Denies bloating, Denies change in bowel habits, Denies constipation, Denies heartburn, Denies diarrhea, Denies nausea and Denies vomiting Denies urinary frequency Musc Denies back pain, Denies muscle weakness and Denies numbness Skin/Breast Denies changing lesions and Denies unusual bruising Neuro Denies headache(s), Denies numbness, Denies paresthesias and Denies weakness Psych Denies anxiety and Denies depression Endo Denies palpitations Saul/Lymph Denies lymphadenopathy Physical Exam Vital Signs: Last Vital Signs Pulse 73 06/10/24 09:11 BP 140/60 H 06/10/24 09:11 BMI result Body Mass Index 31.0 Const General: cooperative and no acute distress Nutritional Appearance: well nourished Orientation/consciousness: patient oriented x3 Limitations: no limitations HEENT Head: Yes normocephalic and Yes atraumatic Ears: hearing grossly normal bilaterally Resp Effort & Inspection: normal respiratory effort, no audible wheezes, no cough and no respiratory distress Cardio Jugular venous distension: no JVD GI Inspection: Yes normal to inspection Back/Spine/Pelvis Other: Left buttock with 2 cutaneous epidermal inclusion cyst each measuring approximately 1 cm in diameter 1 located close to the anal verge and a 2nd located more in the midclavicular line. Back/spine/pelvis image: 2 1. 1 cm epidermal inclusion cyst with some redness in the skin 2. 1 cm epidermal inclusion cyst, no redness in the skin Skin Other: Warm, dry, no rash Neuro General: patient oriented x3 Extrem General: Yes no clubbing, cyanosis or edema Office Procedures Excision Details: Preoperative diagnosis: Epidermal inclusion cyst left buttock x2 Postoperative diagnosis: Same Procedure: Excision of epidermal inclusion cyst left buttock x2 Surgeon: Bairon Curiel MD Corporation Secretary: None Anesthesia: Lidocaine 1% with epinephrine Indications for procedure: Enlarging epidermal inclusion cyst left buttock Operative findings: 1 cm epidermal inclusion cyst x2 left buttock as noted above Specimen: Epidermal inclusion cyst x2 Estimated blood loss: Less than 1 mL Complications: None Procedure details: Patient was placed in a prone position. The site of surgery was confirmed by the patient in the left buttock. After assuring informed consent the skin was prepped with Betadine and draped in a sterile fashion. Local anesthesia was then infiltrated around both cyst. Beginning in the more medial cyst elliptical incision was created oriented transversely. This was carried out through subcutaneous tissue and around the cyst wall. This was completely excised and sent to pathology for further examination. Skin was then closed using 2 interrupted 3-0 nylon sutures. Attention was then directed to the more lateral incision in the left buttock. Again an elliptical incision was made around the cyst wall. This was carried out through subcutaneous tissue and around the cyst wall. Sharp dissection was used to excise the lesion. This was then passed off the table and sent to pathology for further examination. Skin was then closed using 2 interrupted 3-0 nylon sutures. Sterile dressings were applied to both incisions. The patient tolerated the procedure well. [id number]/arms/legs 0.6-1cm (X2 lesions) Procedure code (CPT) selection complete Assessment & Plan Assessment & Plan (1) Epidermal inclusion cyst: Code(s): L72.0 - Epidermal cyst Category: Medical Plan 53-year-old female patient presenting with an epidermal inclusion cyst x2 of the left buttock. She underwent excision today and will return in 1 week for suture removal. Coding Level of Care Code Est Pt Level 4 (10853) Diagnoses Epidermal inclusion cyst L72.0 CPT Codes Trunk/Arms/Legs - CPT: 03069-mbhjo/arms/legs 0.6-1cm ([id number])
[2024-06-10 09:11] VITALS: BP 140/60; PULSE 73; BMI 31.0
== END 2024-06-10 09:46 | disposition home or self-care (01) ==
PROVIDERS: PCP Internal Medicine; Visit Provider Surgery
DX: L72.0 Epidermal cyst (principal)
CPT/HCPCS: 11401; 99213

== ENCOUNTER 2024-06-18 10:07 | Outpatient (AMB) | payer MEDICAID, SELFPAY ==
--- NOTE | 2024-06-18 10:12 | MHC.OFFVIS ---
Vital Signs 06/18/24 10:19 Height 5 ft 3 in Weight 177 lb 0.499 oz BMI 31.4 BP 120/70 Blood Pressure Location Lt brachial Position Sitting Pulse 72 Intake Visit Reasons: S/p exc Lt buttock Intake Note: Patient is seen in office for follwo up visit, post excision of epidermal inclusion cyst x2 of the left buttock. 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 She tolerated the procedure well and denies any ongoing symptoms. She returns today for suture removal. [facility] Medical History Stricture of colon Urge incontinence Normocytic anemia Anxiety Sleep apnea Asthma GERD (gastroesophageal reflux disease) Pulmonary embolism Crohn's disease PTSD (post-traumatic stress disorder) Recurrent major depression-severe Crohn's colitis Hyperlipidemia Hemorrhagic cyst of ovary Kidney stones Depression Iron deficiency anemia Rheumatoid arthritis Migraine Cancer HTN (hypertension) Surgical History History of colon resection History of colon resection Hx of dilation and curettage Hx of cystoscopy Hx of cystoscopy Hx of colonoscopy (~10/2018) Hx of endoscopy Social History Household Members: None Housing: Apartment Do you presently have visiting nurse or other home services: No Alcohol intake: never Patient Tobacco Use Status: Former Tobacco user Tobacco use type: Cigarette Cigarettes Per Day: 1 Years Smoked: 10 e-Cigarette/Vaping Use: Never Used Second Hand Smoke Exposure: No Substance Use Type: Marijuana Advance Directives Date on File: 09/17/21 service: No Current occupational status: unemployed and disabled Sexual orientation: Straight/Heterosexual Physical Exam Const General: comfortable and no acute distress Back/Spine/Pelvis Other: Excision site in left buttock x2 clean, dry, and intact without redness or discharge. Sutures removed incision found to be well healed. Back/spine/pelvis image: 1. 2. Extrem General: No edema Assessment & Plan Assessment & Plan (1) Epidermal inclusion cyst: Code(s): L72.0 - Epidermal cyst Category: Medical Plan 53-year-old female patient status post excision of an epidermal inclusion cyst x2 left buttock. Wounds are clean, dry, and intact without redness or discharge. Sutures removed and incisions found to be well healed. She should follow up as needed. Coding Level of Care Code Global (56695) Diagnoses Epidermal inclusion cyst L72.0
[2024-06-18 10:19] VITALS: BP 120/70; PULSE 72; BMI 31.4
== END 2024-06-18 10:22 | disposition home or self-care (01) ==
PROVIDERS: PCP Internal Medicine; Visit Provider Surgery
DX: L72.0 Epidermal cyst (principal)
CPT/HCPCS: 99024

== ENCOUNTER → 2024-06-18 10:07 | Outpatient (BNVA) | payer MEDICAID, SELFPAY | PROVIDERS: PCP Internal Medicine; Visit Provider Surgery | DX: Z09 Encounter for follow-up examination after completed treatment for conditions other than malignant neoplasm (principal); Z98.890 Other specified postprocedural states | CPT/HCPCS: 99212 ==

== ENCOUNTER 2024-09-09 18:03 | Emergency (ER) | payer MEDICAID, SELFPAY ==
--- NOTE | ~2024-09-09 | XR_ITS ---
CLINICAL HISTORY: cough 2 view chest x-ray Comparison: Chest CT from 11/29/2021 Findings: No consolidation, pneumothorax, or pleural effusion. Cardiac silhouette and mediastinal contours are at the upper limits of normal. Mild degenerative changes including imaged AC joints. Surgical mesh opacities in the [id number]. IMPRESSION: No consolidation. This document has been electronically signed by: Jamie Cheek MD on 09/09/2024 19:13:01
--- NOTE | ~2024-09-09 | CT_ITS ---
CLINICAL HISTORY: H O Crohns, left-sided ABD pain R O flare-up CT abdomen and pelvis with contrast Comparison: CR - XR KUB - 09/09/24 19:04 EST Findings: No consolidation or effusion. The gallbladder and solid organs are within normal limits. No hydronephrosis or hydroureter. Small nonobstructing left renal calculus present. No bowel obstruction, pneumoperitoneum, or pneumatosis. Postsurgical changes of the bowel are identified near the rectum. Postsurgical changes of the small bowel are identified of the lower abdomen near the midline. Mesh material in place at the anterior abdominal wall, suggesting prior hernia repair. Small subcentimeter lymph nodes identified near the cecum. Pelvic contents unremarkable. No bladder wall thickening. The appendix is at the upper limits of normal for size at the mid right hemiabdomen. No significant periappendiceal fat stranding or free fluid to suggest acute inflammatory change. No acute fracture visualized. IMPRESSION: 1. No acute inflammatory process identified within the abdomen or pelvis. 2. Small nonobstructing left renal calculus. No hydronephrosis or hydroureter. This document has been electronically signed by: Yovani Barnett MD on 09/10/2024 02:07:56
--- NOTE | ~2024-09-09 | XR_ITS ---
CLINICAL HISTORY: AP, r o obstruction 1 view abdomen Comparison: X-ray of the abdomen from 02/12/2024 Findings: New and severe stool burden is present, including mildly distended cecum. No small bowel dilatation in the imaged abdomen. Mild atelectasis of the imaged lung bases. Redemonstration of the surgical mesh opacities. Degenerative changes include imaged hips. Mild rib deformities appear old/chronic. IMPRESSION: 1. Severe stool burden. 2. No small bowel obstruction. This document has been electronically signed by: Jamie Cheek MD on 09/09/2024 19:12:20
--- NOTE | 2024-09-09 18:26 | ED_ITS ---
HPI - Abdominal Pain General Chief Complaint: General Medical Stated Complaint: Crohns flare up/pain left side Time Seen by Provider: 09/09/24 23:20 Source: patient Mode of arrival: ambulatory Limitations: no limitations History of Present Illness ED Provider: Dr. Jonathon Hinojosa HPI narrative: 54-year-old female with a history of asthma, anxiety, chronic constipation, Crohn's disease who presents emergency department for evaluation of left-sided abdominal pain x1 week. Patient states she was a constant pressure-like pain with the occasional sharp severe pain. She states that her pain is 9/10 in his consistent with her previous Crohn's flare-up pain. Patient states that she was had multiple episodes of bloody diarrhea. She states that today she had at least 12 episodes. Patient had associated nausea with 1 episode of vomiting today. She denied fever but did have chills. She did have chest pain but no shortness of breath or dyspnea on exertion. She denied frequency, urgency or dysuria. 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 I did review the office note from 05/31/2024. Patient had history of sigmoid colon removed at [facility] in 2010 with reversal of the colostomy 01/12/2012. She had a parastomal hernia x2 which was repaired. Related Data Home Medications ?Medication ?Instructions ?Recorded ?Confirmed docusate sodium 100 mg capsule 1 cap PO BID PRN Constipation 03/22/21 06/17/24 montelukast 10 mg tablet 1 tab PO BEDTIME 03/22/21 06/17/24 multivitamin 1 tab PO QAM 03/22/21 06/17/24 albuterol sulfate 90 mcg/actuation 2 puff PO Q4H PRN Shortness Of 06/13/21 06/17/24 aerosol inhaler (ProAir HFA) Breath calcium 600 mg (as 1 tab PO BID 06/25/21 06/17/24 carbonate)-vitamin D3 10 mcg (400 unit) tablet hydroxyzine HCl 25 mg tablet 1 tab PO BID PRN Anxiety 06/25/21 06/17/24 lidocaine 4 % topical patch 1 patch topical DAILY PRN 06/25/21 06/17/24 Breakthrough Pain budesonide-formoterol HFA 160 2 puff PO BID 09/08/21 06/17/24 mcg-4.5 mcg/actuation aerosol inhaler (Symbicort) gabapentin 100 mg capsule 100 mg PO BID 01/28/22 06/17/24 paroxetine HCl 40 mg tablet 40 mg PO QAM 12/17/23 06/17/24 zolpidem 5 mg tablet 5 mg PO BEDTIME PRN insomnia 12/17/23 06/17/24 acetaminophen 325 mg tablet 650 mg PO Q4H PRN Pain 02/11/24 06/17/24 (Tylenol) calcium carbonate 500 mg PO BID 02/11/24 06/17/24 carboxymethylcellulose sodium 1 % 1 drp ophthalmic (eye) BID PRN Dry 02/11/24 06/17/24 eye liquid gel drops Eye(S) clonazepam 0.5 mg tablet 0.5 mg PO BEDTIME PRN Anxiety 02/11/24 06/17/24 melatonin 3 mg tablet 3 mg PO BEDTIME PRN Sleep 02/11/24 06/17/24 topiramate 100 mg tablet 100 mg PO BID 02/11/24 06/17/24 Previous Rx's ?Medication ?Instructions ?Recorded risperidone 1 mg tablet 1 mg PO BID #60 tabs 04/04/21 vitamin B complex-folic acid 0.4 1 tab PO QAM #30 tabs 11/09/21 mg tablet (B Complex 1 (with folic acid)) folic acid 1 mg tablet 1 mg PO DAILY 60 days #60 tabs 10/24/22 oxybutynin chloride 15 mg 15 mg PO DAILY 30 days #30 tabs 10/31/23 tablet,extended release 24 hr famotidine 20 mg tablet (Pepcid) 20 mg PO BID PRN abdominal 01/29/24 discomfort #60 tabs ondansetron 4 mg disintegrating 4 mg PO Q6H #14 tabs 01/29/24 tablet lactulose 20 gram/30 mL oral 20 g (30 mL) PO DAILY #900 mL 02/12/24 solution polyethylene glycol 3350 17 17 g PO BID 30 days #510 grams 02/12/24 gram/dose oral powder (Miralax) methotrexate sodium 2.5 mg tablet 25 mg (10 x 2.5 mg) PO FR 90 days 05/06/24 #130 tabs apixaban 2.5 mg tablet (Eliquis) 2.5 mg PO BID #60 tabs 06/17/24 hydromorphone 4 mg tablet 4 mg PO Q6H PRN severe pain (scale 09/10/24 score 7-10) #10 tabs ondansetron 4 mg disintegrating 4 mg PO Q6-8H PRN nausea and 09/10/24 tablet vomiting #14 tabs prednisone 10 mg tablet 10 mg PO DIRECTED #60 tabs 09/10/24 Allergies Allergy/AdvReac Type Severity Reaction Status Date / Time aspirin [ASA] Allergy Intermediate RASH Verified 09/09/24 18:31 azathioprine [From IMURAN] Allergy Intermediate PANCREATIC Verified 09/09/24 18:31 INFLAMMATION ibuprofen [IBUPROFEN] Allergy Intermediate TOLD NOT Verified 09/09/24 18:31 TO TAKE levofloxacin [From LEVAQUIN] Allergy Mild YEAST Verified 09/09/24 18:31 INFECTIONS Review of Systems Review of Systems Yes all other systems are reviewed and are negative [facility] Past Medical History [facility] Narrative: Social history: She denies tobacco, alcohol and drug use. Medical History Pulmonary emboli Stricture of colon Urge incontinence Normocytic anemia Anxiety Sleep apnea Asthma GERD (gastroesophageal reflux disease) Pulmonary embolism Crohn's disease PTSD (post-traumatic stress disorder) Recurrent major depression-severe Crohn's colitis Hyperlipidemia Hemorrhagic cyst of ovary Kidney stones Depression Iron deficiency anemia Rheumatoid arthritis Migraine Cancer HTN (hypertension) Surgical History History of colon resection History of colon resection Hx of dilation and curettage Hx of cystoscopy Hx of cystoscopy Hx of colonoscopy (~10/2018) Hx of endoscopy Social History Social History Household Members: None Housing: Apartment Do you presently have visiting nurse or other home services: No Alcohol intake: never Patient Tobacco Use Status: Former Tobacco user Tobacco use type: Cigarette Cigarettes Per Day: 1 Years Smoked: 10 e-Cigarette/Vaping Use: Never Used Second Hand Smoke Exposure: No Substance Use Type: Marijuana Advance Directives Date on File: 09/17/21 service: No Current occupational status: unemployed and disabled Sexual orientation: Straight/Heterosexual Physical Exam ED Vital Signs: Vital Signs - 24 hr 09/09/24 18:27 09/09/24 22:23 09/10/24 00:11 Temperature 98.3 F 97.9 F Pulse Rate 78 63 Respiratory Rate 18 14 16 Blood Pressure 146/86 H 160/81 H Pulse Oximetry 98 96 Oxygen Delivery Method Room Air Room Air 09/10/24 00:53 09/10/24 02:18 09/10/24 03:12 Temperature 98.3 F Pulse Rate 66 64 Respiratory Rate 16 16 16 Blood Pressure 150/79 H 140/84 H Pulse Oximetry 94 94 Oxygen Delivery Method Room Air Room Air 09/10/24 03:13 09/10/24 03:45 09/10/24 04:00 Temperature 98.3 F Pulse Rate 72 Respiratory Rate 18 16 17 Blood Pressure 119/66 Pulse Oximetry 93 Oxygen Delivery Method Room Air 09/10/24 04:20 Temperature 98.3 F Pulse Rate 72 Respiratory Rate 17 Blood Pressure 119/66 Pulse Oximetry 93 Oxygen Delivery Method Room Air BMI result Body Mass Index 30.1 Vital signs revealed an elevated blood pressure of 146/86 otherwise unremarkable Exam: General: Awake, alert in no distress Head: Normocephalic, atraumatic EENT: PERRL, Lids normal, sclera normal, conjunctiva normal, nose normal , ears normal, throat without erythema or exudates Neck: Supple, no adenopathy Lung: breath sounds symmetric, no wheezing, rales or rhonchi Chest: symmetric movement, nontender Heart: regular rate and rhythm, normal S1, S2 no murmurs or rubs Abdomen: soft, moderate left upper quadrant and left lower quadrant tenderness, mild epigastric tenderness, normoactive bowel sounds, no rebound, no voluntary or involuntary guarding Back: no vertebral tenderness, no CVAT Extremities: no deformities, moves all extremities symmetrically Neuro: Awake, alert, oriented, normal speech, cranial nerves intact, moves all extremities symmetrically Psych: Pleasant, cooperative Course Course Course Narrative: This is an RME: Additional HPI, ROS, PE not included below will be deferred to primary provider. RME assessment and note performed by: Shante Cooper PA-C This is a [id number]-female, with a hx of chronic constipation, headaches, asthma, UTI, colon stricture, DVT on eliquis, Crohns, depression who presents to the ER with complaints of abdominal pain x 1 month. Cough x 4 days. Reporting bloody stool x 4 days. Patient with tenderness palpation along the left upper and left lower quadrant, with guarding noted. Abdomen is soft. Plan: Labs, chest x-ray, KUB xray, viral swabs Reevaluation(s) Reevaluation #1: The patient called to initially asked to change her prescription for on[facility]ansetron [facility]. I transmitted this prescription to [facility]. The patient then called back to request her hydromorphone prescription also be change [facility]. I agreed to change the prescription I put a cancer request to the [facility] pharmacy and represcribed the hydromorphone 4 mg p.o. q.6 hours p.r.n. severe pain and dispensw 10 exactly as it was prescribed by the previous provider. Time: 15:26 Medical Decision Making Medical Decision Making MDM Narrative: 54-year-old female with a history of asthma, anxiety, chronic constipation, Crohn's disease who presents emergency department for evaluation of left-sided abdominal pain x1 week with 12 episodes of bloody diarrhea today and 1 episode of vomiting. Patient had chills but no fever. She complained of chest pain but no shortness of breath. Vital signs revealed an elevated blood pressure otherwise unremarkable. The patient's exam did reveal epigastric, left upper and left lower quadrant tenderness. Differential diagnosis: ?Includes but is not limited to Crohn's flare-up, gastritis, pancreatitis, diverticulitis, electrolyte abnormalities, anemia Course: 12:10 My interpretation patient's laboratory evaluation is as follows: WBC was normal 8000. H&H was normal 12 and 39. CMP was normal. Lipase was normal. High sensitive troponin I was below detectable limits. COVID-19, influenza and RSV were negative. CRP was slightly elevated at 1.24, ESR was slightly elevated at 34. Patient's chest x-ray was unremarkable. KUB was unremarkable as well. Given the fact that her symptoms have been present for 1 week, her abdominal tenderness with bloody diarrhea, I did order a CT scan of the abdomen pelvis with IV contrast to further evaluate her abdominal pain. Patient was treated with morphine 4 mg IV, Zofran 4 mg IV, Solu-Medrol 60 mg IV. She also received normal saline x1 L. 03:27 CT scan of the abdomen pelvis with IV contrast did not reveal any significant inflammatory changes which is encouraging. However, I do think that the patient was having a flare-up of her Crohn's disease given her multiple episodes of bloody diarrhea. Patient's pain was minimally relieved with morphine 4 mg IV x2 therefore she was given Dilaudid 1 mg IV. Patient will be discharged home with a tapering course of prednisone 60 mg x 5 days tapered by 10 mg every 2 days. She was advised to take Tylenol 1000 mg q.6 hours for pain and for pain not relieved by Tylenol she was prescribed Dilaudid 4 mg every 6 hours as needed for pain. Admission/Observation Consideration of admission/observation: Escalation of care including admission/observation considered (Yes) Lab Data MDM Lab Attestation statement: I reviewed the patient's lab results. 09/09/24 20:22 09/09/24 20:22 Labs: Lab Results 09/09/24 09/10/24 Range/Units 20: 01:03 WBC 8.0 (4.8-10.8) X10*3/uL RBC 4.89 (4.20-5.50) X10*6/uL Hgb 12.3 (12.0-16.0) g/dl Hct 39.3 (37.0-47.0) % MCV 80.4 (80.0-98.0) fL MCH 25.2 L (27.0-33.0) pg MCHC 31.3 (31.0-35.0) g/dl RDW 16.6 H (11.0-16.0) % Plt Count 323 D (160-400) X10*3/uL MPV 11.5 (9.4-12.3) fL Immature Gran % (Auto) 0.1 (0.0-0.4) % Neut % (Auto) 57.1 (45-73) % Lymph % (Auto) 34.3 (20-40) % Tama % (Auto) 6.5 (2-11) % Eos % (Auto) 1.6 (0-4) % Baso % (Auto) 0.4 (0-2) % Lymph # (Auto) 2.8 (1.2-4.9) X10*3/uL Tama # (Auto) 0.5 (0.1-1.2) X10*3/uL Eos # (Auto) 0.1 (0.0-0.4) X10*3/uL Baso # (Auto) 0.0 (0.0-0.2) X10*3/uL Abs Immat Gran (auto) 0.01 (0.00-0.03) X10*3/uL Absolute Neuts (auto) 4.6 (2.0-8.3) x10*3/uL Absolute Nucleated RBC 0.000 (0.0-0.012) X10*3/uL Nucleated RBC % (auto) 0.0 (0.0-0.2) /100WBC ESR 34 H (0-20) MM/HR PT 12.5 H (10.9-12.4) SEC INR 1.1 (0.9-1.1) APTT 32.8 (26.0-36.8) SEC Sodium 141 (135-145) mmol/L Potassium 3.8 (3.3-5.1) mmol/L Chloride 106 (96-108) mmol/L Carbon Dioxide 28 (22-29) mmol/L Anion Gap 11 L (12-20) BUN 14 (9-16) mg/dL Creatinine 0.81 (0.5-1.4) mg/dL Estim Creat Clear Calc 77.9 Estimated GFR > 60 Random Glucose 95 (60-115) mg/dL Calcium 9.9 D (8.4-10.2) mg/dL Magnesium 2.3 (1.6-2.6) mg/dL Total Bilirubin 0.2 (0.0-1.0) mg/dL Direct Bilirubin < 0.2 (0.0-0.5) mg/dL AST 28 (5-31) U/L ALT 17 (0-31) U/L Alkaline Phosphatase 103 (39-117) U/L Troponin I High Sens < 2.7 (<3.5-17.0) ng/L C-Reactive Protein 1.24 H (< or = 0.50) mg/dL Total Protein 9.1 H (6.5-8.0) g/dL Albumin 4.5 (3.5-5.0) g/dL Lipase 25 (8-78) U/L Urine Color Yellow Urine Appearance Clear Urine pH 6.0 (5.0-9.0) Ur Specific Rhame 1.025 (1.005-1.025) Urine Protein Negative (Neg-Trace) mg/dL Urine Glucose (UA) Negative (Negative) mg/dL Urine Ketones 15 (Negative) mg/dL Urine Blood Trace H (Negative) Urine Nitrite Negative (Negative) Ur Leukocyte Esterase Negative (Negative) Urine RBC 0-2 (0-2) /HPF Urine WBC 0-5 (0-5) /HPF Ur Squamous Epith Cells 0-2 (0-2) /HPF Urine Bacteria None Seen (None Seen) Hyaline Casts 0-2 (0-2) /LPF Influenza Type A (PCR) NEGATIVE (Negative) Influenza Type B (PCR) NEGATIVE (Negative) RSV RNA Qual (PCR) NEGATIVE (Negative) SARS-CoV-2 RNA (RT-PCR) NEGATIVE (Negative) Radiology Impression Discussion of test interpretation with radiology: I have reviewed the radiologist's reading. Radiologist Impression: 2 view chest x-ray Comparison: Chest CT from 11/29/2021 Findings: No consolidation, pneumothorax, or pleural effusion. Cardiac silhouette and mediastinal contours are at the upper limits of normal. Mild degenerative changes including imaged AC joints. Surgical mesh opacities in the [id number]. IMPRESSION: No consolidation. This document has been electronically signed by: Jamie Cheek MD on 09/09/2024 19:13:01 1 view abdomen Comparison: X-ray of the abdomen from 02/12/2024 Findings: New and severe stool burden is present, including mildly distended cecum. No small bowel dilatation in the imaged abdomen. Mild atelectasis of the imaged lung bases. Redemonstration of the surgical mesh opacities. Degenerative changes include imaged hips. Mild rib deformities appear old/chronic. IMPRESSION: 1. Severe stool burden. 2. No small bowel obstruction. This document has been electronically signed by: Jamie Cheek MD on 09/09/2024 19:12:20 CT abdomen and pelvis with contrast Comparison: CR - XR KUB - 09/09/24 19:04 EST Findings: No consolidation or effusion. The gallbladder and solid organs are within normal limits. No hydronephrosis or hydroureter. Small nonobstructing left renal calculus present. No bowel obstruction, pneumoperitoneum, or pneumatosis. Postsurgical changes of the bowel are identified near the rectum. Postsurgical changes of the small bowel are identified of the lower abdomen near the midline. Mesh material in place at the anterior abdominal wall, suggesting prior hernia repair. Small subcentimeter lymph nodes identified near the cecum. Pelvic contents unremarkable. No bladder wall thickening. The appendix is at the upper limits of normal for size at the mid right hemiabdomen. No significant periappendiceal fat stranding or free fluid to suggest acute inflammatory change. No acute fracture visualized. IMPRESSION: 1. No acute inflammatory process identified within the abdomen or pelvis. 2. Small nonobstructing left renal calculus. No hydronephrosis or hydroureter. This document has been electronically signed by: Yovani Barnett MD on 09/10/2024 02:07:56 External Record Review External record reviewed: Office record Prescription Management I considered prescription management with: Pain Medication Chronic Conditions Patient?s care impacted by: Other ( Crohn's disease) Medications Administered Discontinued Medications Generic Name Dose Route Start Last Admin Trade Name Freq PRN Reason Stop Dose Admin Hydromorphone HCl 1 mg 09/10/24 03:02 09/10/24 03:13 Hydromorphone Hcl 1 Mg/Ml Syringe IVPUSH 09/10/24 03:03 1 mg ONCE STA Administration Protocol Sodium Chloride 1,000 mls @ 999 mls/hr 09/09/24 23:50 09/10/24 01:06 Ns IV 09/10/24 00:50 999 mls/hr .Q1H1M STA Administration Iohexol 85 ml 09/10/24 00:51 09/10/24 00:52 Iohexol 350 Mg/Ml 100 Ml Infus..Btl IV 09/10/24 00:52 85 ml ONCE ONE Administration Methylprednisolone Sodium Succinate 60 mg 09/09/24 23:51 09/10/24 00:12 Methylprednisolone Sod Succ 125 Mg/2 Ml Vial IVPUSH 09/09/24 23:52 60 mg ONCE ONE Administration Morphine Sulfate 4 mg 09/09/24 23:50 09/10/24 00:11 Morphine Sulfate 4 Mg/Ml Cartridge IVPUSH 09/09/24 23:51 4 mg ONCE STA Administration Protocol Morphine Sulfate 4 mg 09/10/24 01:14 09/10/24 02:18 Morphine Sulfate 4 Mg/Ml Cartridge IVPUSH 09/10/24 01:15 4 mg ONCE STA Administration Protocol Ondansetron HCl 4 mg 09/09/24 23:50 09/10/24 00:15 Ondansetron Hcl 4 Mg/2 Ml Vial IVPUSH 09/09/24 23:51 4 mg ONCE ONE Administration Discharge Plan Discharge Clinical Impression: Exacerbation of Crohn's disease, Bloody diarrhea, Abdominal pain Patient Disposition: Home, Self-Care Instructions: Crohn Disease (ED) Additional Instructions: Your blood work was unremarkable. CT scan of your abdomen pelvis with IV contrast did not reveal any significant inflammatory changes in your colon which is reassuring however I do believe that your symptoms are due to a Crohn's flare-up. Take prednisone 10 mg pills, 6 pills once a day for 5 days then decrease by 1 pill every 2 days until you complete the prescription. While you ?are taking prednisone, do not take any NSAIDs (Motrin, Advil, ibuprofen, Aleve, naproxen). Take Tylenol 500 mg pills, 2 pills every 6 hours as needed for pain. For pain not relieved by prednisone or Tylenol, take Dilaudid 2 mg pills, 1 pill every 6 hours as needed for pain. ?This is a narcotic medication and can be addicting. ?If you are concerned about addiction, do not get the prescription filled or you can ask the pharmacist for less pills than prescribed. ?This medication will make you sleepy, do not drive or work while taking this medication. Prescriptions: New prednisone 10 mg tablet 10 mg PO DIRECTED Qty: 60 0RF Rx Instructions: Day 1 through 5 take 6 pills then decrease by 1 pill every 2 days until you complete prescription ondansetron 4 mg tablet,disintegrating 4 mg PO Q6-8H PRN (Reason: nausea and vomiting) Qty: 14 0RF hydromorphone 4 mg tablet 4 mg PO Q6H PRN (Reason: severe pain (scale score 7-10)) Qty: 10 0RF Rx Instructions: Partial Fill upon patient request. No Action vitamin B complex-folic acid [B Complex 1 (with folic acid)] 0.4 mg tablet 1 tab PO QAM Qty: 30 2RF folic acid 1 mg tablet 1 mg PO DAILY 60 Days Qty: 60 3RF Rx Instructions: Take 1 tablet daily oxybutynin chloride 15 mg tablet extended release 24hr 15 mg PO DAILY 30 Days Qty: 30 1RF methotrexate sodium 2.5 mg tablet 25 mg PO FR 90 Days Qty: 130 1RF multivitamin Tablet 1 tab PO QAM docusate sodium 100 mg capsule 1 cap PO BID PRN (Reason: Constipation) montelukast 10 mg tablet 1 tab PO BEDTIME risperidone 1 mg Tablet 1 mg PO BID Qty: 60 0RF albuterol sulfate [ProAir HFA] 90 mcg/actuation HFA aerosol inhaler 2 puff PO Q4H PRN (Reason: Shortness Of Breath) hydroxyzine HCl 25 mg tablet 1 tab PO BID PRN (Reason: Anxiety) calcium carbonate-vitamin D3 600 mg(1,500mg) -400 unit tablet 1 tab PO BID lidocaine 4 % Adhesive Patch,Medicated 1 patch TOPICAL DAILY PRN (Reason: Breakthrough Pain) Eliquis 2.5 mg Tablet 2.5 mg PO BID Qty: 60 6RF budesonide-formoterol [Symbicort] 160-4.5 mcg/actuation HFA aerosol inhaler 2 puff PO BID famotidine [Pepcid] 20 mg tablet 20 mg PO BID PRN (Reason: abdominal discomfort) Qty: 60 0RF ondansetron 4 mg tablet,disintegrating 4 mg PO Q6H Qty: 14 0RF acetaminophen [Tylenol] 325 mg Tablet 650 mg PO Q4H PRN (Reason: Pain) melatonin 3 mg Tablet 3 mg PO BEDTIME PRN (Reason: Sleep) calcium carbonate 500 mg calcium (1,250 mg) Tablet,Chewable 500 mg PO BID carboxymethylcellulose sodium 1 % Drops, Liquid Gel 1 drp OPHTHALMIC (EYE) BID PRN (Reason: Dry Eye(S)) clonazepam 0.5 mg Tablet 0.5 mg PO BEDTIME PRN (Reason: Anxiety) Rx Instructions: administer 30 minutes before bedtime topiramate 100 mg tablet 100 mg PO BID lactulose 20 gram/30 mL Solution 20 g PO DAILY Qty: 900 2RF polyethylene glycol 3350 [Miralax] 17 gram/dose powder 17 g PO BID 30 Days Qty: 510 3RF gabapentin 100 mg capsule 100 mg PO BID paroxetine HCl 40 mg tablet 40 mg PO QAM zolpidem 5 mg tablet 5 mg PO BEDTIME PRN (Reason: insomnia) Interventions: ED Discharge Assessment Last Done: 09/10/24 04:20 Discharge Date/Time: 09/10/24 04:27 Print Language: Italian
[2024-09-09 18:27] VITALS: BP 146/86; PULSE 78; RESP 18; TEMP 36.8; O2SAT 98; BMI 30.1
[2024-09-09 20:26] LABS: MANUAL DIFF FLAG NO
[2024-09-09 20:35] LABS: Basophils Percent Auto 0.4 % (0-2); Eosinophils Absolute Auto 0.1 X10*3/uL (0.0-0.4); Eosinophils Percent Auto 1.6 % (0-4); Hematocrit 39.3 % (37.0-47.0); Hemoglobin 12.3 g/dl (12.0-16.0); Imm Gran Abs Auto 0.01 X10*3/uL (0.00-0.03); Imm Gran Pct Auto 0.1 % (0.0-0.4); Lymphocytes Absolute Auto 2.8 X10*3/uL (1.2-4.9); Lymphocytes Percent Auto 34.3 % (20-40); Mean Corpuscular HGB Conc 31.3 g/dl (31.0-35.0); Mean Corpuscular Hemoglobin 25.2 pg (27.0-33.0); Mean Corpuscular Volume 80.4 fL (80.0-98.0); Mean Platelet Volume 11.5 fL (9.4-12.3); Monocytes Absolute Auto 0.5 X10*3/uL (0.1-1.2); Monocytes Percent Auto 6.5 % (2-11); Neutrophils Absolute Auto 4.6 x10*3/uL (2.0-8.3); Neutrophils Percent Auto 57.1 % (45-73); Platelet Count 323 X10*3/uL (160-400); Red Blood Count 4.89 X10*6/uL (4.20-5.50); Red Cell Distribution Width 16.6 % (11.0-16.0)
[2024-09-09 20:36] LABS: INTERNATIONAL NORM RATIO 1.1 (0.9-1.1); Prothrombin Time 12.5 SEC (10.9-12.4)
[2024-09-09 20:38] LABS: Partial Thromboplastin Time 32.8 SEC (26.0-36.8)
[2024-09-09 20:45] LABS: Alanine Aminotransferase 17 U/L (0-31); Albumin Level 4.5 g/dL (3.5-5.0); Alkaline Phosphatase 103 U/L (39-117); Anion Gap 11 (12-20); Aspartate Amino Transferase 28 U/L (5-31); Bilirubin Direct < 0.2 mg/dL (0.0-0.5); Bilirubin Total 0.2 mg/dL (0.0-1.0); Blood Urea Nitrogen 14 mg/dL (9-16); C Reactive Protein 1.24 mg/dL (< or = 0.50); Calcium 9.9 mg/dL (8.4-10.2); Carbon Dioxide 28 mmol/L (22-29); Chloride 106 mmol/L (96-108); Creatinine Clr Calc Pharmacy 77.9; Estimated Glomerular Filt Rate > 60; Glucose Random 95 mg/dL (60-115); Lipase 25 U/L (8-78); Magnesium 2.3 mg/dL (1.6-2.6); Potassium 3.8 mmol/L (3.3-5.1); Sodium 141 mmol/L (135-145); Total Protein 9.1 g/dL (6.5-8.0)
[2024-09-09 20:56] LABS: Troponin-I High Sensitivity < 2.7 ng/L (<3.5-17.0)
[2024-09-09 21:10] LABS: Influenza A PCR NEGATIVE (Negative); Influenza B PCR NEGATIVE (Negative); Resp Syncy Virus RNA Qual PCR NEGATIVE (Negative); SARS COV2 PCR INHOUSE NEGATIVE (Negative)
[2024-09-09 21:18] LABS: Erythrocyte Sedimentation Rate 34 MM/HR (0-20)
[2024-09-09 22:23] VITALS: BP 160/81; PULSE 63; RESP 14; TEMP 36.6; O2SAT 96
[2024-09-10] VITALS (8 sets, daily range): BP systolic 119–150; BP diastolic 66–84; PULSE 64–72; RESP 16–18; TEMP 36.8; O2SAT 93–94
[2024-09-10] MEDS: Morphine Sulfate 4 MG/ML CARTRIDGE IVPUSH ×2 (00:11→02:18)
[2024-09-10] MEDS: methylPREDNISolone Sod Succ 125 MG/2 ML VIAL 60 MG IVPUSH (00:12)
[2024-09-10] MEDS: ondansetron HCL 4 MG/2 ML VIAL IVPUSH (00:15)
[2024-09-10] MEDS: iohexoL 350 MG/ML 100 ML INFUS..BTL 85 ML IV (00:52)
[2024-09-10] MEDS: 0.9 % Sodium Chloride 1,000 ML 999 ML IV (01:06)
[2024-09-10 01:13] LABS: Appearance Urine Clear; Color Urine Yellow; Glucose Urine UA Negative (Negative); Leukocyte Esterase Urine Negative (Negative); Nitrite Urine Negative (Negative); Specific Gravity - Urine 1.025 (1.005-1.025); UMIC TRIGGER UACC YES; Urine Blood Trace (Negative); Urine Ketones 15 mg/dL (Negative); Urine Protein Negative (Neg-Trace)
[2024-09-10 01:18] LABS: Bacteria Urine None Seen (None Seen); Hyaline Casts Urine 0-2 /LPF (0-2); RBC Urine 0-2 /HPF (0-2); Squamous Epithelial Cell Urine 0-2 /HPF (0-2); WBC Urine 0-5 /HPF (0-5)
[2024-09-10] MEDS: HYDROmorphone HCl 1 MG/ML SYRINGE IVPUSH (03:13)
== END 2024-09-10 04:27 | disposition home or self-care (01) ==
PROVIDERS: Physician Assistant Medical; Emergency Provider Emergency Medicine Emergency Medical Services; PCP Internal Medicine
DX: N20.0 Calculus of kidney (principal); K50.911 Crohn's disease, unspecified, with rectal bleeding; R05.9 Cough, unspecified; R10.2 Pelvic and perineal pain; Z03.818 Encounter for observation for suspected exposure to other biological agents ruled out; Z79.899 Other long term (current) drug therapy
CPT/HCPCS: 0241U; 36415; 71046; 74018; 74177; 80048; 80076; 81001; 83690; 83735; 84484; 85025; 85610; 85652; 85730; 86140; 96374; 96375; 96376; 99284; J1171; J2270; J2405; J2919; Q9967

== ENCOUNTER → 2024-09-09 18:32 | Outpatient (BNV) | payer MEDICAID, SELFPAY | PROVIDERS: PCP Internal Medicine; Visit Provider Radiology Neuroradiology | DX: R05.9 Cough, unspecified (principal); K59.00 Constipation, unspecified; J98.11 Atelectasis | CPT/HCPCS: 71046; 74018 ==

== ENCOUNTER → 2024-09-10 | Outpatient (BNV) | payer MEDICAID, SELFPAY | PROVIDERS: Emergency Provider Emergency Medicine Emergency Medical Services; PCP Internal Medicine; Visit Provider Radiology Diagnostic Radiology | DX: N20.0 Calculus of kidney (principal) | CPT/HCPCS: 74177 ==

== ENCOUNTER 2024-11-08 07:39 | Day surgery (SDC) | payer MEDICAID, SELFPAY ==
[2024-11-04 13:41] VITALS: BMI 30.6
--- NOTE | 2024-11-05 12:21 | P.CONAN_ITS ---
Documented by User: Caroline Chung NP 11/05/24 12:22 HPI - Anesthesia Eval Consult details Narrative: 54yo F for Upper Endoscopy and Colonoscopy Eliquis - hx PE PMFSH Active Problems Active Problems: All Active Problems Epidermal inclusion cyst (Acute) Chronic constipation (Acute) UTI (urinary tract infection) (Acute) Syncope, vasovagal (Acute) Chronic headache (Acute) Asthma (Acute) Vitamin D deficiency (Acute) Crohn's disease (Acute) GERD (gastroesophageal reflux disease) (Acute) Urge incontinence (Acute) Depression (Acute) Past Medical History Medical History Urge incontinence Stricture of colon Normocytic anemia Anxiety Sleep apnea Asthma GERD (gastroesophageal reflux disease) Pulmonary embolism Crohn's disease PTSD (post-traumatic stress disorder) Recurrent major depression-severe Crohn's colitis Hyperlipidemia Hemorrhagic cyst of ovary Kidney stones Depression Iron deficiency anemia Rheumatoid arthritis Migraine Cancer HTN (hypertension) Family History Family history of problems with anesthesia: No Surgical History Surgical History History of colon resection History of colon resection Hx of dilation and curettage Hx of cystoscopy Hx of cystoscopy Hx of colonoscopy (~10/2018) Hx of endoscopy History of Problems with Anesthesia: No Social History Social History Household Members: None Housing: Apartment Are you a primary health and social care teacher to a significant other at home: No Do you presently have visiting nurse or other home services: No Alcohol intake: never Patient Tobacco Use Status: Former Tobacco user Tobacco use type: Cigarette Cigarettes Per Day: 1 Years Smoked: 10 e-Cigarette/Vaping Use: Never Used Second Hand Smoke Exposure: No Use of substances other than those prescribed or required for medical reasons: Yes Substance Use Type: Marijuana Have you been hit, kicked, punched, or otherwise hurt by someone within the past year? If so, by whom?: No Are you DNR?: No Advance Directives: No Advance Directives Information Provided: Yes Advance Directives Date on File: 09/17/21 Recently lost weight without trying: No service: No Current occupational status: unemployed and disabled Sexual orientation: Straight/Heterosexual Meds Allergies Allergy/AdvReac Type Severity Reaction Status Date / Time aspirin [ASA] Allergy Intermediate RASH Verified 09/09/24 18:31 azathioprine [From IMURAN] Allergy Intermediate PANCREATIC Verified 09/09/24 18:31 INFLAMMATION ibuprofen [IBUPROFEN] Allergy Intermediate TOLD NOT Verified 09/09/24 18:31 TO TAKE levofloxacin [From LEVAQUIN] Allergy Mild YEAST Verified 09/09/24 18:31 INFECTIONS Home Medications ?Medication ?Instructions ?Recorded ?Confirmed ?Last Taken ?Type docusate sodium 100 mg capsule 1 cap PO BID PRN Constipation 03/22/21 11/04/24 02/10/24 History montelukast 10 mg tablet 1 tab PO BEDTIME 03/22/21 11/04/24 02/10/24 History multivitamin 1 tab PO QAM 03/22/21 11/04/24 02/10/24 History albuterol sulfate 90 mcg/actuation 2 puff PO Q4H PRN Shortness Of 06/13/21 11/04/24 02/10/24 History aerosol inhaler (ProAir HFA) Breath hydroxyzine HCl 25 mg tablet 1 tab PO BID PRN Anxiety 06/25/21 11/04/24 02/10/24 History lidocaine 4 % topical patch 1 patch topical DAILY PRN 06/25/21 11/04/24 02/10/24 History Breakthrough Pain budesonide-formoterol HFA 160 2 puff PO BID 09/08/21 11/04/24 02/10/24 History mcg-4.5 mcg/actuation aerosol inhaler (Symbicort) gabapentin 100 mg capsule 100 mg PO BID 01/28/22 11/04/24 02/10/24 History paroxetine HCl 40 mg tablet 40 mg PO QAM 12/17/23 11/04/24 02/10/24 History zolpidem 5 mg tablet 5 mg PO BEDTIME PRN insomnia 12/17/23 11/04/24 Unknown History acetaminophen 325 mg tablet 650 mg PO Q4H PRN Pain 02/11/24 11/04/24 02/10/24 History (Tylenol) calcium carbonate 500 mg PO BID 02/11/24 11/04/24 02/10/24 History carboxymethylcellulose sodium 1 % 1 drp ophthalmic (eye) BID PRN Dry 02/11/24 11/04/24 02/10/24 History eye liquid gel drops Eye(S) clonazepam 0.5 mg tablet 0.5 mg PO BEDTIME PRN Anxiety 02/11/24 11/04/24 Unknown History melatonin 3 mg tablet 3 mg PO BEDTIME PRN Sleep 02/11/24 11/04/24 02/10/24 History topiramate 100 mg tablet 100 mg PO BID 02/11/24 11/04/24 Unknown History Exam Height,Weight and Vital Signs: Height 5 ft 3 in Weight 78.471 kg Assessment and Plan Assessment Anesthesia Assessment: Chart Reviewed Final Anesthetic Review Family History of Problems with Anesthesia: No History of Problems with Anesthesia: No Documented by User: Kenia Marshall MD 11/08/24 09:02 [facility] Past Medical History Medical History Urge incontinence Stricture of colon Normocytic anemia Anxiety Sleep apnea Asthma GERD (gastroesophageal reflux disease) Pulmonary embolism Crohn's disease PTSD (post-traumatic stress disorder) Recurrent major depression-severe Crohn's colitis Hyperlipidemia Hemorrhagic cyst of ovary Kidney stones Depression Iron deficiency anemia Rheumatoid arthritis Migraine Cancer HTN (hypertension) Surgical History Surgical History History of colon resection History of colon resection Hx of dilation and curettage Hx of cystoscopy Hx of cystoscopy Hx of colonoscopy (~10/2018) Hx of endoscopy Social History Social History Household Members: None Housing: Apartment Are you a primary health and social care teacher to a significant other at home: No Do you presently have visiting nurse or other home services: No Alcohol intake: never Patient Tobacco Use Status: Former Tobacco user Tobacco use type: Cigarette Cigarettes Per Day: 1 Years Smoked: 10 e-Cigarette/Vaping Use: Never Used Second Hand Smoke Exposure: No Use of substances other than those prescribed or required for medical reasons: Yes Substance Use Type: Marijuana Have you been hit, kicked, punched, or otherwise hurt by someone within the past year? If so, by whom?: No Are you DNR?: No Advance Directives: No Advance Directives Information Provided: Yes Advance Directives Date on File: 09/17/21 Recently lost weight without trying: No service: No Current occupational status: unemployed and disabled Sexual orientation: Straight/Heterosexual Meds Allergies Allergy/AdvReac Type Severity Reaction Status Date / Time aspirin [ASA] Allergy Intermediate RASH Verified 09/09/24 18:31 azathioprine [From IMURAN] Allergy Intermediate PANCREATIC Verified 09/09/24 18:31 INFLAMMATION ibuprofen [IBUPROFEN] Allergy Intermediate TOLD NOT Verified 09/09/24 18:31 TO TAKE levofloxacin [From LEVAQUIN] Allergy Mild YEAST Verified 09/09/24 18:31 INFECTIONS Home Medications ?Medication ?Instructions ?Recorded ?Confirmed ?Last Taken ?Type docusate sodium 100 mg capsule 1 cap PO BID PRN Constipation 03/22/21 11/04/24 02/10/24 History montelukast 10 mg tablet 1 tab PO BEDTIME 03/22/21 11/04/24 02/10/24 History multivitamin 1 tab PO QAM 03/22/21 11/04/24 02/10/24 History albuterol sulfate 90 mcg/actuation 2 puff PO Q4H PRN Shortness Of 06/13/21 11/04/24 02/10/24 History aerosol inhaler (ProAir HFA) Breath hydroxyzine HCl 25 mg tablet 1 tab PO BID PRN Anxiety 06/25/21 11/04/24 02/10/24 History lidocaine 4 % topical patch 1 patch topical DAILY PRN 06/25/21 11/04/24 02/10/24 History Breakthrough Pain budesonide-formoterol HFA 160 2 puff PO BID 09/08/21 11/04/24 02/10/24 History mcg-4.5 mcg/actuation aerosol inhaler (Symbicort) gabapentin 100 mg capsule 100 mg PO BID 01/28/22 11/04/24 02/10/24 History paroxetine HCl 40 mg tablet 40 mg PO QAM 12/17/23 11/04/24 02/10/24 History zolpidem 5 mg tablet 5 mg PO BEDTIME PRN insomnia 12/17/23 11/04/24 Unknown History acetaminophen 325 mg tablet 650 mg PO Q4H PRN Pain 02/11/24 11/04/24 02/10/24 H istory (Tylenol) calcium carbonate 500 mg PO BID 02/11/24 11/04/24 02/10/24 History carboxymethylcellulose sodium 1 % 1 drp ophthalmic (eye) BID PRN Dry 02/11/24 11/04/24 02/10/24 History eye liquid gel drops Eye(S) clonazepam 0.5 mg tablet 0.5 mg PO BEDTIME PRN Anxiety 02/11/24 11/04/24 Unknown History melatonin 3 mg tablet 3 mg PO BEDTIME PRN Sleep 02/11/24 11/04/24 02/10/24 H istory topiramate 100 mg tablet 100 mg PO BID 02/11/24 11/04/24 Unknown History Exam Airway Mallampati Class: II TM Dist: >3cm Neck ROM: Full Loose/Missing/Broken Teeth: No Heart: RRR Lungs: CTA Assessment and Plan Assessment Anesthesia Assessment: Anesthesia Plan Discussed Final Anesthetic Review NPO: Yes ASA Class: III Final Preanesthetic Review: Meds/Allgs Chart Reviewed, Consent Obtained/Reviewed and Anes Risks/Benef Reviewed Patient Risk: Intermediate Procedure Risk: Intermediate Anesthetic Plan Anesthetic Plan: MAC: Disposition: Standard PACU
[2024-11-08 07:48] VITALS: BP 135/75; PULSE 80; RESP 16; TEMP 36.7; O2SAT 98
--- NOTE | 2024-11-08 07:49 | MHC.SHP ---
Pre-Procedural Eval Section A - 24 Hr Update-Section A only Date of Service: 11/08/24 The patient is an INPATIENT: No The patient has been examined within 24 hours of the surgical procedure. The History & Physical has been completed within 30 days and I have reviewed it.: No Section B - Complete if H&P > 30 days Chief Complaint: Surveillance for Crohn's disease, GERD Relevant Family History (Specify if Yes): No Relevant Social History: None Present Medications: see Short Stay Collaborative assessment Medical History: Significant History (Asthma Cancer Crohn's colitis Crohn's disease Depression Depression GERD (gastroesophageal reflux disease) Hemorrhagic cyst of ovary HTN (hypertension) Hyperlipidemia Iron deficiency anemia Kidney stones Migraine Normocytic anemia PTSD (post-traumatic stress disorder) Pulmonary emboli Pulmonary embo) History of Previous Operations: Relevant previous surgery/procedure and date(s) (History of esophagogastroduodenoscopy (EGD) History of colon resection Hx of dilation and curettage Hx of cystoscopy Hx of cystoscopy Hx of colonoscopy (~10/2018)) Allergies: Allergies Allergy/AdvReac Type Severity Reaction Status Date / Time aspirin [ASA] Allergy Intermediate RASH Verified 09/09/24 18:31 azathioprine [From IMURAN] Allergy Intermediate PANCREATIC Verified 09/09/24 18:31 INFLAMMATION ibuprofen [IBUPROFEN] Allergy Intermediate TOLD NOT Verified 09/09/24 18:31 TO TAKE levofloxacin [From LEVAQUIN] Allergy Mild YEAST Verified 09/09/24 18:31 INFECTIONS Review of Systems Sugical H&P ROS: Negative: Constitution, Cardiovascular, Respiratory and Gastrointestinal Exam Surgical H&P Exam: Normal: Heart, Normal: Lungs, Normal: Extremities and Normal: Abdomen Plan Diagnosis/Plan: Unchanged I have reviewed the history and physical and performed a pertinent physical examination on my patient. No changes have occurred unless specified. Time Spent With Patient Time: Total time managing care of this patient today ____ minutes.
[2024-11-08] MEDS: Lactated Ringers 1,000 ML 100 ML IVCONT (08:01)
--- NOTE | 2024-11-08 08:54 | HO.OPN-COLON ---
Colonoscopy Operative Note Operative Note Date of Service: 11/08/24 Narrative: FLEXIBLE TRANSORAL UPPER GASTROINTESTINAL ENDOSCOPY WITH BIOPSIES AND COLONOSCOPY TILL CECUM WITH BIOPSIES Pre-op diagnosis: Colon cancer screening, GERD Post-op diagnosis: Gastritis, Diverticulosis, hemorrhoids ? Endoscopist:? Libby Palafox MD Anesthesia:?MAC UPPER ENDOSCOPY Consent: Indications for the procedure and potential complications of bleeding, perforation, reaction to medications and missed diagnosis were discussed with the patient and informed consent was obtained. Instrument: Olympus GIF H 190 mid size upper endoscope Monitoring: Vital signs and clinical assessment, continuous EKG monitoring, Pulse oximetry, Carbon Dioxide monitoring and blood pressure monitoring were done throughout the procedure. Procedure: The patient was placed in the left lateral decubitis position and pre-procedure medications were administered and a bite block was placed. The endoscope was inserted into the mouth and advanced under direct vision to the third part of duodenum. A careful inspection was made as the upper endoscope was withdrawn including a retroflexed examination of the proximal stomach; Findings and interventions are described below. Findings: Larynx: Normal Esophagus: GE junction at 36 cms. No esophagitis or Babb's. Stomach: Moderate gastric antral erythema - biopsies were obtained from the antrum. Grade 2 flap valve on retroflexed examination of the cardia. Duodenum: Normal bulb and descending duodenum Intervention: Biopsies as noted above COLONOSCOPY PROCEDURE NOTE Instrument: Olympus PCF H 190 L variable stiffness pediatric colonoscope Monitoring: Vital signs and clinical assessment, intermittent blood pressure monitoring, continuous EKG monitoring, Pulse oximetry and Carbon Dioxide monitoring were done throughout the procedure. Please see anesthesia flowsheet. Colon withdrawl time was 19 minutes. Procedure: The patient was placed in the left lateral decubitis position and pre-procedure medications were administered. After a digital rectal examination of the ano-rectum, the video colonoscope was inserted into the rectum and advanced through the colon to the cecum. The colonoscope was slowly withdrawn in a retrograde panoramic fashion and the colon mucosa was carefully examined including a retroflexed view of the rectum. Findings and interventions are described below. Procedure Difficulty: without difficulty Findings: Terminal Ileum: Distal 4-5 cms was examined and appeared normal Cecum: Friable mucosa with patchy erythema and scattered aphthoid ulcers Ascending Colon: Friable mucosa with patchy erythema and scattered aphthoid ulcers Transverse Colon: Friable mucosa with patchy erythema and scattered aphthoid ulcers Descending Colon: Friable mucosa with patchy erythema and scattered aphthoid ulcers Sigmoid Colon: Colitis with multiple superficial ulcers from 0 to 30 cms. Moderate diverticulosis Rectum: Normal Ano-rectum: Moderate internal hemorrhoids Colon preparation: Good after copious irrigation. [place] Bowel Preparation Scale Right colon; 2 Transverse colon: 2 Left colon; 2 (0 = Unprepared colon segment with mucosa not seen due to solid stool that cannot be cleared. 1 = Portion of mucosa of the colon segment seen, but other areas of the colon segment not well seen due to staining, residual stool and/or opaque liquid. 2 = Minor amount of residual staining, small fragments of stool and/or opaque liquid, but mucosa of colon segment seen well. 3 = Entire mucosa of colon segment seen well with no residual staining, small fragments of stool or opaque liquid) Impression and Post Procedure Diagnosis: Endoscopy Findings: ESOPHAGUS: Normal STOMACH: Moderate gastric antral erythema DUODENUM: Normal Colonoscopy Findings: No polyps were detected Friable mucosa with patchy erythema and scattered aphthoid ulcers with active colitis from 0 to 30 cms and mild colitis in the rest of the colon - multiple biopsies were obtained. Moderate diverticulosis seen in the sigmoid colon Moderate hemorrhoids on retroflexed exam. Plan: Pt has a FU appointment on 11/25/[address] Palafox Repeat Colonoscopy in 2 years for Crohn's disease surveillance. Above findings were reviewed with the patient and relevant handouts were given and the discharge area. Pt reports compliance with Stelara injection, MTX and budesonide. She noted that she starts feeling bad 2 weeks after the Stelara injection. BIOPSIES SHOWED: A. Gastric antrum, biopsy: Gastric antral mucosa with minimal chronic gastritis with few focal neutrophils; no granuloma seen; negative for intestinal metaplasia and dysplasia. B. Colon, cecum, biopsy: Chronic colitis with mild activity and focal mucosal microgranulomas; negative for dysplasia. C. Colon, ascending, biopsy: Focal chronic colitis with minimal activity, mucosal microgranulomas, and granulomas in submucosal lymphoid aggregate; negative for dysplasia. D. Colon, transverse, biopsy: Focal chronic colitis with mild activity; no granulomas or dysplasia. E. Colon, sigmoid, biopsy: Focal chronic colitis with moderate activity and surface erosion; no granulomas or dysplasia. Comment: (A): Immunostain for H. pylori was negative. (C): AFB and GMS stains - negative Patient was placed on the colonoscopy recall list.
[2024-11-08 09:26] VITALS: BP 107/69; PULSE 73; RESP 18; TEMP 36.6; O2SAT 97
[2024-11-08 09:41] VITALS: BP 133/76; PULSE 84; RESP 18; O2SAT 97
== END 2024-11-08 10:10 | disposition home or self-care (01) ==
PROVIDERS: PCP Internal Medicine; Visit Provider Internal Medicine Gastroenterology
PROC: (CPT 45380; principal; 2024-11-08 08:30)
DX: Z12.11 Encounter for screening for malignant neoplasm of colon (principal); K50.90 Crohn's disease, unspecified, without complications; K57.30 Diverticulosis of large intestine without perforation or abscess without bleeding; K64.8 Other hemorrhoids; K63.3 Ulcer of intestine; E55.9 Vitamin D deficiency, unspecified; K59.09 Other constipation; K21.9 Gastro-esophageal reflux disease without esophagitis; K29.50 Unspecified chronic gastritis without bleeding; I10 Essential (primary) hypertension; E78.5 Hyperlipidemia, unspecified; D50.9 Iron deficiency anemia, unspecified; J45.909 Unspecified asthma, uncomplicated; I26.99 Other pulmonary embolism without acute cor pulmonale; M06.9 Rheumatoid arthritis, unspecified; F43.10 Post-traumatic stress disorder, unspecified; G47.30 Sleep apnea, unspecified; F41.8 Other specified anxiety disorders; Z79.01 Long term (current) use of anticoagulants; Z79.620 Long term (current) use of immunosuppressive biologic; Z79.899 Other long term (current) drug therapy; Z88.1 Allergy status to other antibiotic agents; Z88.6 Allergy status to analgesic agent; Z98.890 Other specified postprocedural states
CPT/HCPCS: 45380; 43239; 88305; 88312; 88313; 88342; J2003; J2704

== ENCOUNTER → 2024-11-08 07:39 | Outpatient (BNV) | payer MEDICAID, SELFPAY | PROVIDERS: PCP Internal Medicine; Visit Provider Internal Medicine Gastroenterology | DX: Z12.11 Encounter for screening for malignant neoplasm of colon (principal); K63.3 Ulcer of intestine; K57.30 Diverticulosis of large intestine without perforation or abscess without bleeding; K64.8 Other hemorrhoids; K21.9 Gastro-esophageal reflux disease without esophagitis; K29.70 Gastritis, unspecified, without bleeding | CPT/HCPCS: 43239; 45380 ==

== ENCOUNTER 2024-11-23 09:57 | Outpatient (REF) | payer MEDICAID, SELFPAY ==
[2024-11-23 11:41] LABS: MANUAL DIFF FLAG NO
[2024-11-23 11:54] LABS: Basophils Absolute Auto 0.1 X10*3/uL (0.0-0.2); Basophils Percent Auto 0.7 % (0-2); Eosinophils Absolute Auto 0.1 X10*3/uL (0.0-0.4); Eosinophils Percent Auto 1.2 % (0-4); Hematocrit 36.6 % (37.0-47.0); Hemoglobin 11.6 g/dl (12.0-16.0); Imm Gran Abs Auto 0.02 X10*3/uL (0.00-0.03); Imm Gran Pct Auto 0.3 % (0.0-0.4); Lymphocytes Absolute Auto 2.4 X10*3/uL (1.2-4.9); Lymphocytes Percent Auto 34.1 % (20-40); Mean Corpuscular HGB Conc 31.7 g/dl (31.0-35.0); Mean Corpuscular Hemoglobin 25.3 pg (27.0-33.0); Mean Corpuscular Volume 79.9 fL (80.0-98.0); Mean Platelet Volume 12.1 fL (9.4-12.3); Monocytes Absolute Auto 0.7 X10*3/uL (0.1-1.2); Monocytes Percent Auto 9.6 % (2-11); Neutrophils Absolute Auto 3.7 x10*3/uL (2.0-8.3); Neutrophils Percent Auto 54.1 % (45-73); Platelet Count 278 X10*3/uL (160-400); Red Blood Count 4.58 X10*6/uL (4.20-5.50); Red Cell Distribution Width 16.5 % (11.0-16.0); White Blood Count 6.9 X10*3/uL (4.8-10.8)
[2024-11-23 12:26] LABS: C Reactive Protein 0.74 mg/dL (< or = 0.50)
[2024-11-23 12:45] LABS: Ferritin 5 ng/mL (10-250)
--- OUTSIDE RECORDS SUMMARY | 2024-11-23 13:34 | XMS_ITS | Encounter Summary ---
Author Organization [employer] Address [address] [place] [address] [address] [address] Care Team Providers Care Blogs Manager Name Role Phone Leesa Rapp MD Primary Care Provide r Reason for Visit * Reason Comments Med Refill Encounter Details Date Type Department Care Team (Late st Contact Info) Description 04/28/2023 Refill [facility] MEDICINE [address] [place] [address] Christy Stockton DO [address] [place], [place] [phone] Healthcare maintenance Social History Tobacco Use Types [...] Description 02/16/2025 9:15 AM EDT Office Visit [facility] MEDICINE [address] [place], [place] [phone] Leesa Rapp MD [address] [place], [place] [phone] documented as of this encounter Visit Diagnoses Diagnosis Healthcare maintenance documented in this encounter Care Teams Blogs Manager Relationship Specialty Start Date End Date Leesa Rapp MD [address] [place] [address] PCP - General Family Medicine 10/15/19 documented as of this encounter
--- OUTSIDE RECORDS SUMMARY | 2024-11-23 13:34 | XMS_ITS | Encounter Summary ---
Author Organization [employer] Address [address] [facility] 7t [place] [address] Care Team Providers Care Director Of Finance Name Role Phone Leesa Rapp MD Primary Care Provide r Reason for Visit * Reason Comments Med Refill Encounter Details Date Type Department Care Team (Late st Contact Info) Description 12/31/2022 Refill [facility] MEDICINE [address] [place] [address] Vee Harris MD [address] [place] [address] Moderate persistent asthma without complication Social History [...] Upcoming Encounters Date Type Department Care Team ([facility] [address] Contact Info) Description 02/16/2025 9:15 AM EDT Office Visit [facility] MEDICINE [address] [place] [address] Leesa Rapp MD [address] [place] [address] documented as of this encounter Visit Diagnoses Diagnosis Moderate persistent asthma without complication documented in this encounter Care Teams Director Of Finance Relationship Specialty Start Date End Date Leesa Rapp MD [address] [place] [address] PCP - General Family Medicine 10/15/19 documented as of this encounter
--- OUTSIDE RECORDS SUMMARY | 2024-11-23 13:34 | XMS_ITS | Clinical Summary ---
Author Organization [facility] Address [address] [place] [address] Care Team Providers Care Shear Helper Name Role Phone Macy Washburn NP Primary Care Provider [phone] Social History Tobacco Use Types Packs/Day Years [...] age to complete this topic Care Teams Shear Helper Relationship Specialty Start Date End Date Macy Washburn NP [address] [place] [phone] PCP - General 03/12/05
--- OUTSIDE RECORDS SUMMARY | 2024-11-23 13:34 | XMS_ITS | Encounter Summary ---
Author Organization [employer] Address [address] [facility] 7t [place] [address] Care Team Providers Care Clinical Laboratory Medical Director Name Role Phone Leesa Rapp MD Primary Care Provide r Reason for Visit * Reason Comments Med Refill Encounter Details Date Type Department Care Team ([facility] st Contact Info) Description 05/09/2024 Refill [facility] MEDICINE 230 [place], [place] [phone] Leesa Rapp MD [address] [place], [place] [phone] Vitamin D deficiency; Healthcare maintenance; Anxiety Social [...] Description 02/16/2025 9:15 AM EDT Office Visit [facility] MEDICINE [address] [place] [address] Leesa Rapp MD [address] [place] [address] documented as of this encounter Visit Diagnoses Diagnosis Vitamin D deficiency Healthcare maintenance Anxiety Anxiety state, unspecified documented in this encounter Additional Health Concerns Assessment Noted Time PHQ-9 Depression Total Score: 0 02/20/20 24 1:02 PM EDT documented as of this encounter Care Teams Clinical Laboratory Medical Director Relationship Specialty Start Date End Date Leesa Rapp MD [address] [place] [address] PCP - General Family Medicine 10/15/19 documented as of this encounter
--- OUTSIDE RECORDS SUMMARY | 2024-11-23 13:34 | XMS_ITS | Encounter Summary ---
Author Organization [employer] Address [address] [facility] 7t [place] [address] Care Team Providers Care Court Officer Name Role Phone Leesa Rapp MD Primary Care Provide r Encounter Details Date Type Department Care Team ([facility] Contact Info) Description 10/30/2022 Orders Only [facility] [address] [place], [place] [phone] Christy Kaye LPN Social History Tobacco Use [...] Upcoming Encounters Date Type Department Care Team ([facility] Contact Info) Description 02/16/2025 9:15 AM EDT Office Visit [facility] MEDICINE [address] [place], [place] [phone] Leesa Rapp MD [address] [place], [place] [phone] documented as of this encounter Visit Diagnoses Not on filedocumented in this encounter Care Teams Court Officer Relationship Specialty Start Date End Date Leesa Rapp MD [address] [place] [phone] PCP - General Family Medicine 10/15/19 documented as of this encounter
--- OUTSIDE RECORDS SUMMARY | 2024-11-23 13:34 | XMS_ITS | Encounter Summary ---
Author Organization [employer] Address [address] [facility] [address] [place] [address] Care Team Providers Care Upkeep Worker Name Role Phone Leesa Rapp MD Primary Care Provide r Reason for Visit * Reason Comments Med Refill Encounter Details Date Type Department Care Team ([facility] st Contact Info) Description 09/03/2023 Refill [facility] [address] [place], [place] [phone] Rohini Meade MD [address] [place], [place] [phone] Chronic nonintractable headache, unspecified headache type Social [...] Description 02/16/2025 9:15 AM EDT Office Visit [facility] [address] [place] [phone] Leesa Rapp MD [address] [place] [phone] documented as of this encounter Visit Diagnoses Diagnosis Chronic nonintractable headache, unspecified headache type documented in this encounter Care Teams Upkeep Worker Relationship Specialty Start Date End Date Leesa Rapp MD [address] [place] [id number] PCP - General Family Medicine 10/15/19 documented as of this encounter
--- OUTSIDE RECORDS SUMMARY | 2024-11-23 13:34 | XMS_ITS | Clinical Summary ---
Author Organization [email or web address] Address [address] [place] [address] Care Team Providers Care Blind Escort Name Role Phone Leesa Rapp MD Primary [...] Plan (08/12/2024 10:57 AM EST): Stable, patient residential counselor to avoid asthma triggers C/w same interventions [...] (04/27/2023 7:32 AM EDT): Does not have affirmative action specialist or heel painter She asks about pain mgmt, but the majority of her pain is intra-abdominal I think pain mgmt would have little to offer her, and that focus should be on her her Crohn's activity Vitamin D deficiency 05/29/2015 Resolved Problems Problem Noted Date Diagnosed Date Resolved Date Pulmonary embolism 11/15/2022 3 Encounters Date Type Department Care Team Description 11/23/2024 Orders Only GENERIC EXTERNAL DATA DEPARTMENT Provider, Generic External Data 11/17/2024 10:15 AM EDT Office Visit [facility] [address] [place] [phone] Leesa Rapp MD Essential hypertension (Primary Dx); Crohn's disease with complication, unspecified gastrointestinal tract location (CMS/HCC); Mixed anxiety and depressive disorder; Mood disorder (CMS/HCC); Encounter for screening mammogram for malignant neoplasm of breast 11/17/2024 Travel 11/08/2024 Orders Only GENERIC EXTERNAL DATA DEPARTMENT Provider, Generic External Data 11/08/2024 Patient Outreach [facility] [address] [place] [phone] Leesa Rapp MD Pre-visit Planning (SDOH screening negative and tobacco screening positive) 11/08/2024 Refill [facility] [address] [place] [address] Vee Harris MD Moderate persistent asthma without complication 11/07/2024 Refill [facility] [address] [place] [address] Jody Gloria, DALE Healthcare maintenance 11/07/2024 Refill [facility] [address] [place] [phone] Vee Harris MD Depression with anxiety; Moderate persistent asthma without complication; Healthcare maintenance; Chronic nonintractable headache, unspecified headache type 11/07/2024 Refill [facility] [address] [place] [address] Leesa Rapp MD Chronic nonintractable headache, unspecified headache type 11/01/2024 Refill [facility] [address] [place] [address] Jody Gloria, ASSISTANT MANAGER RETAIL Vitamin D deficiency 10/29/2024 4:00 PM EST Office Visit [facility] [address] [place] [phone] Ernestina Ayon MD Melasma (Primary Dx); Tinea versicolor 10/29/2024 Travel 10/14/2024 Telephone [facility] [address] [place] [address] Leesa Rapp MD Colorectal Screening 09/26/2024 Refill [facility] [address] [place] [address] Leesa Rapp MD Depression with anxiety; Moderate persistent asthma without complication 09/15/2024 2:00 PM EST Office Visit [facility] [address] [place] [phone] Renee Marte MD Benign hypertension (Primary Dx); Other constipation 09/15/2024 Telephone [facility] [address] [place] [phone] Leesa Rapp MD Nurse Triage 09/10/2024 Orders Only GENERIC EXTERNAL DATA DEPARTMENT Provider, Generic External Data 09/09/2024 Orders Only [facility] External Provider, [facility] 09/02/2024 Refill [facility] [address] [place] [address] Leesa Rapp MD Chronic nonintractable headache, unspecified [...] Description 02/16/2025 9:15 AM EDT Office Visit [facility] [address] [place] [address] Leesa Rapp MD [address] [place], [place] [phone] Health Maintenance Due Date Last Done Comments [...] Procedure Name Priority Date/Time Associated Diagnosis Comments FERRITIN Routine 11/23/2024 11:39 AM EDT C-REACTIVE PROTEIN Routine 11/23/2024 11 :39 AM EDT CBC WITH AUTO DIFFERENTIAL Routine 11/23/2024 11:39 AM EDT HEMATOXYLIN AND EOSIN STAIN Routine 11/08/2024 8:52 [...] Recently Relevant to Health Maintenance Results * (ABNORMAL) CBC auto differential (11/23/2024 11:39 AM EDT) Only the most recent of2 resultswithin the time period is included. White Blood Count 6.9 4.8 - 10.8 X10*3/uL [facility] Red Blood Count 4.58 4.20 - 5.50 X10*6/uL [facility] Hemoglobin 11.6(L) 12.0 - 16.0 g/dl [facility] Hematocrit 36.6(L) 37.0 - 47.0 % [facility] Mean Corpuscular Volume 79.9(L) 80.0 - 98.0 fL [facility] Mean Corpuscular Hemoglobin 25.3(L) 27.0 - 33.0 pg [facility] Mean Corpuscular HGB Conc 31.7 31.0 - 35.0 g/dl [facility] Red Cell Distribution Width 16.5(H) 11.0 - 16.0 % [facility] Platelet Count 278 160 - 400 X10*3/uL [facility] Mean Platelet Volume 12.1 9.4 - 12.3 fL [facility] Neutrophils Percent Auto 54.1 45 - 73 % [facility] Imm Gran Pct Auto 0.3 0.0 - 0.4 % [facility] Lymphocytes Percent Auto 34.1 20 - 40 % [facility] Monocytes Percent Auto 9.6 2 - 11 % [facility] Eosinophils Percent Auto 1.2 0 - 4 % [facility] Basophils Percent Auto 0.7 0 - 2 % [facility] NRBC Pct Auto 0.0 0.0 - 0.2 /100WBC [facility] Neutrophils Absolute Auto 3.7 2.0 - 8.3 x10*3/uL [facility] Imm Gran Abs Auto 0.02 0.00 - 0.03 X10*3/uL [facility] Lymphocytes Absolute Auto 2.4 1.2 - 4.9 X10*3/uL [facility] Monocytes Absolute Auto 0.7 0.1 - 1.2 X10*3/uL [facility] Eosinophils Absolute Auto 0.1 0.0 - 0.4 X10*3/uL [facility] Basophils Absolute Auto 0.1 0.0 - 0.2 X10*3/uL [facility] NRBC Abs Auto 0.000 0.0 - 0.012 X10*3/uL [facility] 11/23/2024 11:3 9 AM EDT 11/23/2024 11:39 AM EDT us Generic External Data Provider LAB BLOOD ORDERAB LES Final Result [facility] [address] [place], [place] [phone] * (ABNORMAL) C-reactive Protein (11/23/2024 11:39 AM EDT) Only the most recent of2 resultswithin the time period is included. C Reactive Protein 0.74(H) < or = 0.50 mg/dL [facility] 11/23/2024 11:3 9 AM EDT 11/23/2024 11:39 AM EDT Generic External Data Provider LAB BLOOD ORDERAB LES Final Result Performing Organization Address [facility] de Phone Number [facility] [address] [place] [phone] * (ABNORMAL) Ferritin (11/23/2024 11:39 AM EDT) Ferritin 5(L) 10 - 250 ng/mL [facility] 11/23/2024 11:3 9 AM EDT 11/23/2024 11:39 AM EDT Generic External Data Provider LAB BLOOD ORDERAB LES Final Result Performing Organization Address [facility] de Phone Number [facility] [address] [place] [phone] * Gomori Methenamine Stain (11/08/2024 8:52 AM EDT) 11/08/2024 8:52 AM EDT 11/08/2024 10:22 AM EDT Narrative [facility] - 11/11/2024 4:33 PM EDT ----- ------- Name: Leesa Reyes ?Age/Sex: 54/F ? : 1970 Unit#: [id number] ?? Attend Dr: Libby Palafox MD ?Re11/08/24 ?Status: DEP SDC ? Location: HO.SSS ?Disch: ? ----- ------- SPEC : [id number] ? RECD: 11/08/24 ? STATUS: ??SOUT ? REQ NUM: [id number] ? DIPTI: 11/08/24 ? SUBM DR: Libby Palafox MD ? ENTERED: ??11/08/24 ?SP TYPE: Surgical ? OTHR DR: Leesa Rapp MD ? ORDERED: ??Gom Meth Stain, HE Stain/15, Acid Fast Stain, Gross Micro L4/5, IHC, ?Specials Gr. 1/2, H. pylori ?Addendum Addendum ??1 ?Entered: 11/11/24-1632 Immunostain for H. pylori on A is negative. ??AFB is negative for acid fast organisms and GMS is negative for fungi, on C. ??Controls stain appropriately. Addendum Signed (signature on file) Domonique Gr[place] 11/11/24 1633 ? ----- ------- ? Diagnosis [...] ON NEXT PAGE ----- ------- Name: Leesa Ryees ?Age/Sex: 54/F ? : 1970 Unit#: [id number] ?? Attend Dr: Libby Palafox MD ?Re11/08/24 ?Status: DEP SDC ? Location: HO.SSS ?Disch: ? ----- ------- SPEC : [id number] ? RECD: 11/08/24 ? STATUS: ??SOUT ? REQ NUM: [id number] ? DIPTI: 11/08/24 ? SUBM DR: Libby [...] Reyes ?Age/Sex: 54/F ? : 1970 Unit#: [id number] ?? Attend Dr: Libby Palafox MD ?Re11/08/24 ?Status: DEP SDC ? Location: HO.SSS ?Disch: ? ----- ------- SPEC : [id number] ? RECD: 11/08/24-1022 ? STATUS: ??SOUT ? REQ NUM: [id number] ? DIPTI: 11/08/24-0852 ? SUBM DR: Libby Palafox MD ? ENTERED: ??11/08/24-1028 ?SP TYPE: Surgical ? OTHR DR: Leesa Rapp MD ? ORDERED: ??Gom Meth Stain, HE Stain/15, Acid Fast Stain, Gross Micro L4/5, IHC, ?Specials Gr. 1/2, H. pylori Copies To: ?? Leesa Rapp MD ?? [facility] ?? [address] ?? [place] [address] ?? [phone] ?? Libby Palafox MD ?? [facility] ?? [address] ?? [place] [address] ?? [phone] ----- ------- Signed (signature on file) Domonique Hermosillo 11/09/24 1252 ? ----- ------- ? END OF REPORT ? us Generic External Data Provider LAB MICROBIOLOGY - GENERAL ORDERABLES Final Result [facility] [address] [place] [address] [phone] * Hematoxylin and Eosin Stain (11/08/2024 8:52 AM EDT) 11/08/2024 8:52 AM EDT 11/08/2024 10:22 AM EDT Narrative [facility] - 11/09/2024 12:52 PM EDT ----- ------- Name: Leesa Reyes ?Age/Sex: 54/F ? : 1970 Unit#: [id number] ?? Attend Dr: Libby Palafox MD ?Re11/08/24 ?Status: DEP SDC ? Location: HO.SSS ?Disch: ? ----- ------- SPEC : [id number] ? RECD: 11/08/24-2 ? STATUS: ??SOUT ? REQ NUM: [id number] ? DIPTI: 11/08/24 ? SUBM DR: Libby [...] Reyes ?Age/Sex: 54/F ? : 1970 Unit#: [id number] ?? Attend Dr: Libby Palafox MD ?Re11/08/24 ?Status: DEP SDC ? Location: HO.SSS ?Disch: ? ----- ------- SPEC : [id number] ? RECD: 11/08/24-1022 ? STATUS: ??SOUT ? REQ NUM: [id number] ? DIPTI: 11/08/24-851 ? SUBM DR: Libby [...] in toto in a cassette labeled [facility] Special studies ordered and performed: Immunostain for H. pylori on A1; GMS and AFB stains on C1. Copies To: ?? Leesa Rapp MD ?? [facility] ?? [address] ?? [place] [address] ?? [phone] ?? Libby Palafox MD ?? [facility] ?? [address] ?? [place] [address] ?? [phone] ? CONTINUED ON NEXT PAGE ----- ------- Name: Leesa Reyes ?Age/Sex: 54/F ? : 1970 Unit#: [id number] ?? Attend Dr: Libby Palafox MD ?Re11/08/24 ?Status: [place]P [facility] ? Location: HO.SSS ?Disch: ? ----- ------- SPEC : [id number] ? RECD: 03 ? STATUS: ??SOUT ? REQ NUM: [id number] ? DIPTI: 11/08/24-851 ? SUBM DR: Libby Palafox MD ? ENTERED: ??11/08/24 ?SP TYPE: Surgical ? OTHR DR: Leesa Rapp MD ? ORDERED: ??HE Stain/15, Gross Micro L4/5, H. pylori ? ----- ------- Signed (signature on file) Domonique Hermosillo 11/09/242 ? ----- ------- ? END OF REPORT ? us Generic External Data Provider LAB BLOOD ORDERAB LES Final Result [facility] [address] [place] [phone] * CT Abdomen Pelvis w/ Contrast (09/10/2024 2:07 AM EST) Anatomical Region Laterality Modality Body, Pelvis, Abdomen Computed T omography 09/10/2024 2:07 AM EST Narrative 09/10/2024 2:09 AM EST ? [facility] ?[address] ?[place] [address] ? CT Scan Report ? Signed ? Patient: Leesa Reyes ?MR#: [id number] ?? [id number] ? : 1970 ?Acct:[id number] ? Age/Sex: 54 / F ?ADM Date: 09/09/24 ? Loc: HO.ED ? Attending Dr: ? Ordering Physician: Jonathon Hinojosa MD ?? Date of Service: 09/10/24 ?? Procedure(s): CT abdomen pelvis w IV con ?? Accession Number(s): [id number] ? cc: Leesa Rapp MD; Jonathon Hinojosa MD ? Report Number: ?? [id number]: Total DLP = ??497.00 mGy-cm ? CLINICAL HISTORY: H O Crohns, left-sided ABD pain R O flare-up ? CT abdomen and pelvis with contrast ? Comparison: CR - XR [facility] - 09/09/24 19:04 EST ? Findings: ?? [...] by Yovani Barnett MD in OV> ? 09/10/24 0209 ? DD/ 6 ? TD/TT: 09/10/24206 ? Car Top Bolter: ? Procedure Note Donotuseinterpreter, Image - 09/10/[address] [address] [address] Scan Report Signed Patient: Leesa Reyes MMR#: [id number] : 1970Acct:[id number] Age/Sex: 54 / FADM Date: 09/09/24 Loc: HO.ED Attending Dr: Ordering Physician: Jonathon Hinojosa MD Date of Service: 09/10/24 Procedure(s): CT abdomen pelvis w IV con Accession Number(s): [id number] cc: Leesa Rapp MD; Jonathon Hinojosa MD Report Number: [id number]: Total DLP = 497.00 mGy-cm CLINICAL HISTORY: [...] in OV> 09/10/24208 DD/ 6 TD/TT: 09/10/24206 Car Top Bolter: [facility] External Provider IMG CT PROCEDURES Edited Result - Final * (ABNORMAL) Urinalysis, Complete, with Reflex to Culture (09/10/2024 1:03 AM EST) Color Urine Yellow [facility] Appearance Urine Clear [facility] PH 6.0 5.0 - 9.0 [facility] Glucose Urine UA Negative Negative mg/dL [facility] Urine Blood Trace(A) Negative [facility] Specific [place] - Urine 1.025 1.005 - 1.025 [facility] Urine Protein Negative Neg-Trace mg/dL [facility] Urine Ketones 15 Negative mg/dL [facility] Nitrite Urine Negative Negative [facility] Leukocyte Esterase Urine Negative Negative [facility] RBC Urine 0-2 0 - 2 /HPF [facility] Urine WBC 0-5 0 - 5 /HPF [facility] Urine Squamous Epithelial Cell 0-2 0 - 2 /HPF [facility] Urine Bacteria None Seen None Seen [facility] Hyaline Casts, Urine 0-2 0 - 2 /LPF [facility] 09/10/2024 1:03 AM EST 09/10/2024 1:09 AM EST Narrative [facility] - 09/10/2024 1:18 AM EST [id number], Clean Catch Generic External Data Provider LAB URINE ORDERAB LES Final Result Performing Organization Address [facility] Co de Phone Number [facility] [address] [place] [phone] * High Sensitivity Troponin I (09/09/2024 8:22 PM EST) [facility] TROPONIN I HIGH SENSITIVITY <2.7 <3.5 - 17.0 ng/L [facility] Comment:The Wagner high sens itivity Troponin-I results should beused in conjunction with other diagnostic information suchas ECG, clinical observations and information, and patientsymptoms to aid in the diagnosis of AL. 09/09/2024 8:22 PM EST 09/09/2024 8:25 PM EST Generic External Data Provider LAB BLOOD ORDERAB LES Final Result Performing Organization Address [facility] de Phone Number [facility] [address] [place] [phone] * SARS-CoV-2 RNA, Influenza A/B, and RSV RNA, Ql NAAT (09/09/2024 8:22 PM EST) [facility] Influenza A PCR NEGATIVE Negative [facility] Influenza B PCR NEGATIVE Negative [facility] Resp Syncy Virus RNA Qual PCR NEGATIVE Negative [facility] SARS COV2 PCR NEGATIVE Negative [facility] Comment:All test results mus t be [...] use by authorized laboratories.Testing performed on the [employer] GeneXpert utilizingreal-time RT-PCR.All SARS CoV2 and positive influenza A/B results arereported to [facility]. 09/09/2024 8:22 PM EST 09/09/2024 8:25 PM EST Generic External Data Provider LAB MICROBIOLOGY - GENERAL ORDERABLES Final Result Performing Organization Address [facility] Co de Phone Number [facility] [address] [place] [phone] * Partial Thromboplastin Time, Activated (APTT) (09/09/2024 8:22 PM EST) Partial Thromboplastin Time 32.8 26.0 - 36.8 SEC [facility] Comment:For information rega rding the monitoring of direct thrombininhibitors, please refer to Pharmacy. 09/09/2024 8:22 PM EST 09/09/2024 8:25 PM EST Generic External Data Provider LAB BLOOD ORDERAB LES Final Result Performing Organization Address [facility] Co de Phone Number [facility] [address] [place] [phone] * (ABNORMAL) Sed Rate by Modified Papitoren (09/09/2024 8:22 PM EST) Erythrocyte Sedimentation Rate 34(H) 0 - 20 MM/HR [facility] Comment:Patients with polycy themia and many hemoglobin abnormalitiesmay have depressed sed rates whereas patients with anemiamay have elevated sed rates. 09/09/2024 8:22 PM EST 09/09/2024 8:25 PM EST Generic External Data Provider LAB BLOOD ORDERAB LES Final Result Performing Organization Address [facility] Co de Phone Number [facility] [address] [place] [phone] * (ABNORMAL) Prothrombin Time-INR (09/09/2024 8:22 PM EST) Prothrombin Time 12.5(H) 10.9 - 12.4 SEC [facility] INTERNATIONAL NORM RATIO 1.1 0.9 - 1.1 [facility] Comment:INTERNATIONAL NORMAL IZED RATIO (INR) [...] ORDERAB LES Final Result Performing Organization Address [facility] Co de Phone Number [facility] [address] [place] [phone] * Magnesium (09/09/2024 8:22 PM EST) Magnesium 2.3 1.6 - 2.6 mg/dL [facility] 09/09/2024 8:22 PM EST 09/09/2024 8:25 PM EST us Generic External Data Provider LAB BLOOD ORDERAB LES Final Result Performing Organization Address [facility] Co de Phone Number [facility] [address] [place] [phone] * Lipase (09/09/2024 8:22 PM EST) Lipase 25 8 - 78 U/L [facility] 09/09/2024 8:22 PM EST 09/09/2024 8:25 PM EST Generic External Data Provider LAB BLOOD ORDERAB LES Final Result Performing Organization Address [facility]/ZIP Co de Phone Number [facility] [address] [place] [phone] * (ABNORMAL) Hepatic Function Panel (09/09/2024 8:22 PM EST) Pathologist [facility] Bilirubin, Total 0.2 0.0 - 1.0 mg/dL [facility] Bilirubin, Direct <0.2 0.0 - 0.5 mg/dL [facility] Aspartate Amino Transferase 28 5 - 31 U/L [facility] Alanine Aminotransferase 17 0 - 31 U/L [facility] Total Protein 9.1(H) 6.5 - 8.0 g/dL [facility] Albumin Level 4.5 3.5 - 5.0 g/dL [facility] Alkaline Phosphatase 103 39 - 117 U/L [facility] 09/09/2024 8:22 PM EST 09/09/2024 8:25 PM EST Generic External Data Provider LAB BLOOD ORDERAB LES Final Result [facility] [address] [place] [address] [phone] * (ABNORMAL) Basic Metabolic Panel (09/09/2024 8:22 PM EST) [facility] Sodium 141 135 - 145 mmol/L [facility] Potassium 3.8 3.3 - 5.1 mmol/L [facility] Chloride 106 96 - 108 mmol/L [facility] Carbon Dioxide 28 22 - 29 mmol/L [facility] Anion Gap 11(L) 12 - 20 [facility] Urea Nitrogen (BUN) 14 9 - 16 mg/dL [facility] Creatinine, Serum 0.81 0.5 - 1.4 mg/dL [facility] Creatinine Clr Calc Pharmacy 77.9 [facility] Comment:Provided height and weight: 160.02 cm,77 kg.eGFR (calculated from the MDRD study equation) and eCrCl(calculated from the Cockcroft-Gault equation) are based ondifferent parameters and may not yield comparable results.If eCrCl result is absurd, please check patient'sheight/weight. Estimated Glomerular Filt Rate >60 [facility] Comment:Chronic Kidney Disea se: Estimated GFR < 60 mL/min/1.01q5Xckfnu Kidney Disease: Estimated GFR < 15 mL/min/1.73m2 Glucose 95 60 - 115 mg/dL [facility] Calcium 9.9 8.4 - 10.2 mg/dL [facility] 09/09/2024 8:22 PM EST 09/09/2024 8:25 PM EST us Generic External Data Provider LAB BLOOD ORDERAB LES Final Result [facility] [address] [place] [address] [phone] * XR Chest 2 Views (09/09/2024 7:13 PM EST) Anatomical Region Laterality Modality Chest Radiographic Lisa ging 09/09/2024 7:13 PM EST Narrative 09/09/2024 7:14 PM EST ? [facility] ?[address] ?[place] [address] ?XRay Report ? Signed ? Patient: Leesa Reyes ?MR#: [id number] ?? 682 ? : 1970 ?Acct:[id number] ? Age/Sex: 54 / F ?ADM Date: 09/09/24 ? Loc: HO.ED ? Attending Dr: ? Ordering Physician: Shante Cooper ?? Date of Service: 09/09/24 ?? Procedure(s): XR chest 2V ?? Accession Number(s): [id number] ? cc: Leesa Rapp MD; Shante Cooper ? CLINICAL HISTORY: cough ? 2 view chest x-ray ? Comparison: Chest CT from 11/29/2021 ? Findings: ?? No consolidation, pneumothorax, or pleural effusion. ?? Cardiac silhouette and mediastinal contours are at the upper limits of ?? normal. ?? Mild degenerative changes including imaged AC joints. Surgical mesh ?? opacities in the [id number]. ? IMPRESSION: ?? No consolidation. ? This document has been electronically signed by: Jamie Cheek MD on ?? 09/09/2024 19:13:01 ? Dictated By: ?Jamie Cheek MD ? Signed By: ?<Electronically signed by Jamie Cheek MD in OV> ? 09/09/241912 ? DD/ 12 ? TD/TT: 09/09/241912 ? Car Top Bolter: ? Procedure Note Donlemuelter, Image - 09/09/[address] [address] XRay Report Signed Patient: Leesa Reyes MMR#: [id number] 682 : 1970Acct:[id number] Age/Sex: 54 / FADM Date: 09/09/24 Loc: HO.ED Attending Dr: Ordering Physician: Shante Cooper Date of Service: 09/09/24 Procedure(s): XR chest 2V Accession Number(s): [id number] cc: Leesa Rapp MD; Shante Cooper CLINICAL HISTORY: cough 2 view chest x-ray Comparison: Chest CT from 11/29/2021 Findings: No consolidation, pneumothorax, or pleural effusion. Cardiac silhouette and mediastinal contours are at the upper limits of normal. Mild degenerative changes including imaged AC joints. Surgical mesh opacities in the [id number]-bb-irsn. IMPRESSION: No consolidation. This document has been electronically signed by: Jamie Cheek MD on 09/09/2024 19:13:01 Dictated By: Jamie Cheek MD Signed By: <Electronically signed by Jamie Cheek MD in OV> 09/09/241912 DD/ 12 TD/TT: 09/09/241912 Car Top Bolter: us [facility] External Provider IMG XR PROCEDURES Final Result * XR KUB and Upright 2 Views (09/09/2024 7:12 PM EST) Anatomical Region Laterality Modality Radiographic Lisa ging 09/09/2024 7:12 PM EST Narrative 09/09/2024 7:13 PM EST ? [facility] ?[address] ?[place] [address] ?XRay Report ? Signed ? Patient: Eric,Bonnie ?MR#: [id number] ?? 682 ? : 1970 ?Acct:[id number] ? Age/Sex: 54 / F ?ADM Date: 09/09/24 ? Loc: HO.ED ? Attending Dr: ? Ordering Physician: Shante Cooper ?? Date of Service: 09/09/24 ?? Procedure(s): XR KUB ?? Accession Number(s): [id number] ? cc: Leesa Rapp MD; Shante Cooper [...] ? DD/ 11 ? TD/TT: 09/09/241911 ? Car Top Bolter: ? Procedure Note Gayle, Darion - 09/09/[address] [address] XRay Report Signed Patient: Leesa Reyes MMR#: [id number] : 1970Acct:[id number] Age/Sex: 54 / FADM Date: 09/09/24 Loc: HO.ED Attending Dr: Ordering Physician: Shante Cooper Date of Service: 09/09/24 Procedure(s): XR KUB Accession Number(s): [id number] cc: Leesa Rapp MD; Shante Cooper CLINICAL [...] in OV> 09/09/241912 DD/ 11 TD/TT: 09/09/241911 Car Top Bolter: [facility] External Provider IMG XR PROCEDURES Final Result * (ABNORMAL) Lipid Panel with Reflex to Direct LDL (05/19/2024 11:00 AM EDT) Triglycerides 214(H) <150 mg/dL [facility] Comment:Desirable Triglyceri de: less than 150 mg/dLBorderline High Triglyceride 150-199 mg/dLHigh Triglyceride: 200-499 mg/dLVery High Triglyceride: greater than or equal to 5OO mg/dL Cholesterol 207(H) <200 mg/dL [facility] Comment:Desirable Cholestero l: less than 200 mg/dLBorderline High Cholesterol: 200-239 mg/dLHigh Cholesterol: greater than 239 mg/dL LDL Cholesterol Calculated 124(H) <100 mg/dL [facility] Comment:Desirable LDL: less than 100 mg/dLNear Optimal/Above Optimal LDL: 110- 129 mg/dLBorderline High LDL: 130-159 mg/dLHigh LDL: 160-189 mg/dLVery High LDL: greater than or equal to 190 mg/dL HDL Cholesterol 41 >40 mg/dL [facility] Comment:Desirable HDL: great er than 40 mg/dL Note: This HDL assay may give artificially low results in patients with liver disease. Blood 05/19/2024 11:0 0 AM EDT 05/19/2024 1:20 PM EDT Leesa Wasserman MD LAB BLOOD ORDERABLES Final Result [facility] [address] [place] [address] [phone] * Image-Guided Pap with Age-Based Screening??with CT/NG,??Trichomonas (07/03/2023 10:41 AM EST) Trichomonas (NAAT) Not Detected Not Detected [facility] Comment:Methodology: Transcr iption Mediated Amplification(TMA)The analytical performance characteristics of thisassay have been determined by [employer], [place], [place]. The modificationshave not been cleared or approved by the FDA. Thisassay has been validated pursuant to the CLIAregulations and is used for clinical purposes.For additional information, please refer tohttp://[employer].Oxonica/faq/Trichomonastma (This link is being providedfor information/educational purposes only).THIS TEST WAS PERFORMED AT:[employer] [id number] [place] [address]ATDYYZZRAYMUNDO ALLAN MD,PHD CTNG Ref Lab Not Detected Not Detected [facility] NG Ref Lab Not Detected Not Detected [facility] Comment:Methodology: Transcr iption Mediated Amplification(TMA) to detect RNA.The analytical performance characteristics of thisassay, when used to test [employer] specimens havebeen determined by [employer]. The modificationshave not been cleared or approved by the FDA.This assay has been validated pursuant to the CLIAregulations and is used for clinical purposes.For additional information, please refer tohttps://[employer].Oxonica/faq/HNB457(This link is being provided for information/educational purposes only).THIS TEST WAS PERFORMED AT:[employer] [id number] [place] [address]BIWWQHARAYMUNDO ALLAN MD,PHD 07/03/2023 10:4 1 AM EST 07/04/2023 9:02 AM EST us Leesa Wasserman MD LAB CYTOLOGY ORDERABL ES Final Result Performing Organization Address [facility] Co de Phone Number [facility] [address] [place] [phone] * HPV mRNA E6/E7 w/Reflex to HPV Genotypes 16, 18/45 (07/03/2023 10:41 AM EST) HPV nRNA E6/E7 Not Detected Not Detected [facility] Comment:Methodology: Transcr iption-Mediated AmplificationThis assay detects E6/E7 viral messenger RNA (mRNA) from 14high-risk HPV types (16,18,31,33,35,39,45,51,52,56,58,59,66,68).Cervical sources are required for HPV testing.If a vaginal source from a patient who has had atotal hysterectomy with removal of cervix wassubmitted, please contact the testing laboratoryfor alternative testing options.For additional information, please refer tohttp://education.Oxonica/faq/EXP397x9(This link if provided for information/educational purposes only.)THIS TEST WAS PERFORMED AT:[employer] [place] [phone] BARROW MD HPV mRNA E6/E7 [facility] HPV 16 RNA [facility] HPV 18/45 RNA [facility] 07/03/2023 10:4 1 AM EST 07/04/2023 8:10 AM EST us Leesa Wasserman MD LAB CYTOLOGY ORDERABL ES Final Result Performing Organization Address City/[facility]/ZIP Co de Phone Number [facility] [address] [place] [phone] * BI Mammogram Screening Tomosynthesis Bilateral (03/13/2023 1:46 PM EDT) Anatomical Region Laterality Modality Breast Bilateral Mammography 03/13/2023 1:46 PM EDT Narrative 04/08/2023 1:29 PM EDT ? [place] [facility] ? [address] ?[place] [address] ? Mammography Report ? Signed ? Patient: Eric,Bonnie ?MR#: [id number] ?? [id number] ? : 1970 ?Acct:[id number] ? Age/Sex: 52 / F ?ADM Date: 03/13/23 ? Loc: HO.MAMMO ? Attending Dr: Leesa Wasserman MD ? Ordering Physician: Leesa Rapp MD ?Results: ? Date of Service: 03/13/23 ?Follow Up: ? Procedure(s): MM tomosynthesis screening BI ?? Accession Number(s): [id number] ? cc: Leesa Rapp MD ? EXAMINATION: ?? MM SCREENING DIGITAL BREAST TOMOSYNTHESIS, BILATERAL ? CLINICAL INFORMATION: ? Screening. Asymptomatic. ? The lifetime risk of breast cancer based on the Tyrer-Cuzick Model is ?? 5.0%. ? COMPARISON: ?? Mammography: This study is compared with prior exams dating back to ?? 2019. ? TECHNIQUE: ?? Digital breast tomosynthesis is [...] by Hailee Gaines MD in OV> ? 04/08/23 1327 ? DD/ 1346 ? TD/TT: ? Car Top Bolter: ? Procedure Note Gayle, Image - 04/08/2023 [place] [facility] [address] [place] [address] Mammography Report Signed Patient: Leesa Reyes MMR#: [id number] : 1970Acct:[id number] Age/Sex: 52 / FADM Date: 03/13/23 Loc: CATH[facility] Attending Dr: Leesa Wasserman MD Ordering Physician: Leesa Rapp MDResults: Date of Service: 03/13/23Follow Up: Procedure(s): MM tomosynthesis screening BI Accession Number(s): [id number] cc: Leesa Rapp MD EXAMINATION: MM SCREENING [...] in OV> 04/08/23 1327 DD/ 1346 TD/TT: Car Top Bolter: Leesa Wasserman MD IMG BI PROCEDURES Fin al Result * OCCULT BLOOD STOOL (12/16/2019 4:02 PM EDT) OCCULT BLOOD STOOL [facility] 12/16/2019 4:02 PM EDT us Historical Provider LAB BODY FLUIDS AND STOOL S ORDERABLES Final Result [facility] [address] [place] [address], from Last 3 Months or Most Recently Relevant to Health Maintenance Insurance [employer] Care Teams Blind Escort Relationship Specialty Start Date End Date Leesa Rapp MD [address] [place] [phone] PCP - General Family Medicine 10/15/19
--- OUTSIDE RECORDS SUMMARY | 2024-11-23 13:34 | XMS_ITS | Encounter Summary ---
Author Organization [employer] Address [address] [place] [address] [address] [place] [address] Care Team Providers Care Application Systems Architect Name Role Phone Leesa Rapp MD Primary Care Provide r Encounter Details Date Type Department Care Team ([facility] Contact Info) Description 11/28/2022 Abstract [facility] [address] [place] [phone] Leesa Rapp MD [address] [place] [address] [phone] Social History Tobacco Use Types Packs/Day Years [...] Upcoming Encounters Date Type Department Care Team ([facility] Contact Info) Description 02/16/2025 9:15 AM EDT Office Visit [facility] [address] [place] [address] [phone] Leesa Rapp MD [address] [place] [address] documented as of this encounter Visit Diagnoses Not on filedocumented in this encounter Care Teams Application Systems Architect Relationship Specialty Start Date End Date Leesa Rapp MD [address] [place] [address] [phone] PCP - General Family Medicine 10/15/19 documented as of this encounter
--- OUTSIDE RECORDS SUMMARY | 2024-11-23 13:34 | XMS_ITS | Encounter Summary ---
Author Organization [employer] Address [address] [facility] 7t [place] [address] Care Team Providers Care Point Of Sale Associate Name Role Phone Leesa Rapp MD Primary Care Provide r Reason for Visit * Reason Comments Med Refill Encounter Details Date Type Department Care Team ([facility] st Contact Info) Description 04/29/2024 Refill [facility] [address] [place], [place] [phone] Leesa Rapp MD [address] [place], [place] [phone] Anxiety Social History Tobacco Use Types Packs/Day [...] 9:15 AM EDT Office Visit [facility] [address] [place] [phone] Leesa Rapp MD [address] [place] [address] documented as of this encounter Visit Diagnoses Diagnosis Anxiety Anxiety state, unspecified documented in this encounter Additional Health Concerns Assessment Noted Time PHQ-9 Depression Total Score: 0 02/20/20 24 1:02 PM EDT documented as of this encounter Care Teams Point Of Sale Associate Relationship Specialty Start Date End Date Leesa Rapp MD [address] [place] [phone] PCP - General Family Medicine 10/15/19 documented as of this encounter
--- OUTSIDE RECORDS SUMMARY | 2024-11-23 13:34 | XMS_ITS | Encounter Summary ---
Author Organization [employer] Address [address] [facility] [address] [place] [address] Care Team Providers Care Labor Relations Analyst Name Role Phone Leesa Rapp MD Primary Care Provide r Reason for Visit * Reason Comments Med Refill Encounter Details Date Type Department Care Team (Late Contact Info) Description 01/31/2023 Refill [facility] [address] [place], [place] [phone] Christy Stockton DO [address] [place], [place] [phone] Anxiety Social History Tobacco Use Types Packs/Day [...] Description 02/16/2025 9:15 AM EDT Office Visit [facility] [address] [place], [place] [phone] Leesa Rapp MD [address] [place], [place] [phone] documented as of this encounter Visit Diagnoses Diagnosis Anxiety Anxiety state, unspecified documented in this encounter Care Teams Labor Relations Analyst Relationship Specialty Start Date End Date Leesa Rapp MD [address] [place] [address] PCP - General Family Medicine 10/15/19 documented as of this encounter
--- OUTSIDE RECORDS SUMMARY | 2024-11-23 13:35 | XMS_ITS | Encounter Summary ---
Author Organization [employer] Address [address] [place] [address] [address] [address] Care Team Providers Care Roller Setter Name Role Phone Leesa Rapp MD Primary Care Provide r Encounter Details Date Type Department Care Team (Late st Contact Info) Description 09/04/2022 Orders Only [facility] [address] [place] [phone] Alayna Delcid LPN Social History Tobacco Use [...] Description 02/16/2025 9:15 AM EDT Office Visit [facility] [address] [place] [phone] Leesa Rapp MD [address] [place] [address] documented as of this encounter Visit Diagnoses Not on filedocumented in this encounter Care Teams Roller Setter Relationship Specialty Start Date End Date Leesa Rapp MD [address] [place] [phone] PCP - General Family Medicine 10/15/19 documented as of this encounter
--- OUTSIDE RECORDS SUMMARY | 2024-11-23 13:35 | XMS_ITS | Encounter Summary ---
Author Organization [employer] Address [address] [facility] 7t [place] [address] Care Team Providers Care Nightman Name Role Phone Leesa Rapp MD Primary Care Provide r Encounter Details Date Type Department Care Team (Late st Contact Info) Description 11/23/2024 Orders Only GENERIC EXTERNAL DATA DEPARTMENT Provider, Generic External Data Social History Tobacco Use Types Packs/Day Years Used Date Smoking Tobacco: Never Passive Smoke Exposure: Never Smokeless Tobacco: Never Alcohol Use Standard [...] Description 02/16/2025 9:15 AM EDT Office Visit [facility] [address] [place] [address] Leesa Rapp MD [address] [place] [address] documented as of this encounter Procedures Procedure Name Priority Date/Time Associated Diagnosis Comments CBC WITH AUTO DIFFERENTIAL Routine 11/23/2024 11:39 AM EDT C-REACTIVE PROTEIN Routine 11/23/2024 11 :39 AM EDT FERRITIN Routine 11/23/2024 11:39 AM EDT documented in this encounter Results * (ABNORMAL) Ferritin (11/23/2024 11:39 AM EDT) Ferritin 5(L) 10 - 250 ng/mL [facility] 11/23/2024 11:3 9 AM EDT 11/23/2024 11:39 AM EDT us Generic External Data Provider LAB BLOOD ORDERAB LES Final Result [facility] [address] [place] [phone] [phone] * (ABNORMAL) C-reactive Protein (11/23/2024 11:39 AM EDT) Pathologist [facility] C Reactive Protein 0.74(H) < or = 0.50 mg/dL [facility] 11/23/2024 11:3 9 AM EDT 11/23/2024 11:39 AM EDT us Generic External Data Provider LAB BLOOD ORDERAB LES Final Result [facility] [address] [place] [phone] * (ABNORMAL) CBC auto differential (11/23/2024 11:39 AM EDT) [facility] White Blood Count 6.9 4.8 - 10.8 X10*3/uL [facility] Red Blood Count 4.58 4.20 - 5.50 X10*6/uL [facility] Hemoglobin 11.6(L) 12.0 - 16.0 g/dl [facility] Hematocrit 36.6(L) 37.0 - 47.0 % [facility] Mean Corpuscular Volume 79.9(L) 80.0 - 98.0 fL [facility] Mean Corpuscular Hemoglobin 25.3(L) 27.0 - 33.0 pg [facility] Mean Corpuscular HGB Conc 31.7 31.0 - 35.0 g/dl [facility] Red Cell Distribution Width 16.5(H) 11.0 - 16.0 % [facility] Platelet Count 278 160 - 400 X10*3/uL [facility] Mean Platelet Volume 12.1 9.4 - 12.3 fL [facility] Neutrophils Percent Auto 54.1 45 - 73 % [facility] Imm Gran Pct Auto 0.3 0.0 - 0.4 % [facility] Lymphocytes Percent Auto 34.1 20 - 40 % [facility] Monocytes Percent Auto 9.6 2 - 11 % [facility] Eosinophils Percent Auto 1.2 0 - 4 % [facility] Basophils Percent Auto 0.7 0 - 2 % [facility] NRBC Pct Auto 0.0 0.0 - 0.2 /100WBC [facility] Neutrophils Absolute Auto 3.7 2.0 - 8.3 x10*3/uL [facility] Imm Gran Abs Auto 0.02 0.00 - 0.03 X10*3/uL [facility] Lymphocytes Absolute Auto 2.4 1.2 - 4.9 X10*3/uL [facility] Monocytes Absolute Auto 0.7 0.1 - 1.2 X10*3/uL [facility] Eosinophils Absolute Auto 0.1 0.0 - 0.4 X10*3/uL [facility] Basophils Absolute Auto 0.1 0.0 - 0.2 X10*3/uL [facility] NRBC Abs Auto 0.000 0.0 - 0.012 X10*3/uL [facility] 11/23/2024 11:3 9 AM EDT 11/23/2024 11:39 AM EDT us Generic External Data Provider LAB BLOOD ORDERAB LES Final Result [facility] [address] [place] [phone] [phone] documented in this encounter Visit Diagnoses Not on filedocumented in this encounter Additional Health Concerns Assessment Noted Time PHQ-9 Depression Total Score: 0 02/20/20 24 1:02 PM EDT documented as of this encounter Care Teams Nightman Relationship Specialty Start Date End Date Leesa Rapp MD [address] [place] [phone] PCP - General Family Medicine 10/15/19 documented as of this encounter
[2024-11-26 17:43] LABS: TS Negative Control Passed; TS Panel A 0; TS Panel B 2; TS Positive Control Passed; TSpotTB Negative (Negative)
== END 2024-11-23 09:58 | disposition home or self-care (01) ==
LOC: HO.LAB 09:57
PROVIDERS: PCP Internal Medicine; Visit Provider Internal Medicine Gastroenterology
DX: R53.83 Other fatigue (principal); K50.90 Crohn's disease, unspecified, without complications
CPT/HCPCS: 36415; 80299; 82542; 82728; 85025; 86140; 86481

== ENCOUNTER 2024-11-23 09:57 | Outpatient (AMB) | payer MEDICAID, SELFPAY ==
--- NOTE | 2024-11-23 10:06 | A.OFFVIS_ITS ---
Vital Signs 11/23/24 10:09 Height 5 ft 3 in Weight 170 lb BMI 30.1 BP 93/61 Blood Pressure Location Lt brachial Position Sitting Pulse 92 Pulse Oximetry (%) 98 Oxygen Delivery Method Room Air Intake Visit Reasons: s/p double Intake Note: Patient follow up for chronic constipation and Colonoscopy/EGD results. Patient cc: LLQ chronic pain, tiredness with out any energy, a lot of BM with some constipation, acid reflex, nauseas also patient is worry about a cancer dx class 1/nurse from [place] asked her about the cancer ??? Patient wanted to see a radio program director. Der[facility] Work[employer] Well Service Required: Yes Accompanied by: Daughter Allergies aspirin (ASA) Allergy (Intermediate, Verified 03/16/25 04:02) RASH azathioprine (From IMURAN) Allergy (Intermediate, Verified 03/16/25 04:02) PANCREATIC INFLAMMATION ibuprofen (IBUPROFEN) Allergy (Intermediate, Verified 03/16/25 04:02) TOLD NOT TO TAKE levofloxacin (From LEVAQUIN) Allergy (Mild, Verified 03/16/25 04:02) YEAST INFECTIONS Medication List - Last Reconciled 11/23/24 by Libby Palafox MD acetaminophen (Tylenol) 650 mg PO Q4H PRN albuterol sulfate 90 mcg/actuation (ProAir HFA) 2 puffs PO Q4H PRN apixaban (Eliquis) 2.5 mg PO BID budesonide-formoterol 160-4.5 mcg/actuation (Symbicort) 2 puffs PO BID calcium carbonate 500 mg PO BID carboxymethylcellulose sodium 1% 1 drp ophthalmic (eye) BID PRN clonazepam 0.5 mg PO BEDTIME PRN docusate sodium 1 cap PO BID PRN famotidine (Pepcid) 20 mg PO BID PRN folic acid 1 mg PO DAILY 60 days gabapentin 100 mg PO BID hydromorphone 4 mg PO Q6H PRN hydroxyzine HCl 1 tab PO BID PRN lactulose 20 grams (30 mL) PO DAILY lidocaine 4% 1 patch topical DAILY PRN melatonin 3 mg PO BEDTIME PRN methotrexate sodium 25 mg (10 x 2.5 mg) PO FR 90 days montelukast 1 tab PO BEDTIME multivitamin 1 tab PO QAM ondansetron 4 mg PO Q6-8H PRN oxybutynin chloride ER 15 mg PO DAILY 30 days paroxetine HCl 40 mg PO QAM polyethylene glycol 3350 (Miralax) 17 grams PO BID 30 days prednisone 10 mg PO DIRECTED risperidone 1 mg PO BID topiramate 100 mg PO BID vitamin B complex-folic acid 0.4 mg (B Complex 1 (with folic acid)) 1 tab PO QAM zolpidem 5 mg PO BEDTIME PRN HPI HPI s/p double: Details: GI FU visit for this 54-year-old female for FU of Crohn's disease. Next Stelara infusion scheduled on 11/25/24 Pt is on chronic anticoagulation with Eliquis because of history of pulmonary embolism. CHRONIC ILLNESSES:?RA, GERD, asthma, sleep apnea, iron def anemia, anxiety and depression? ? ? TODAY'S VISIT:? Pt is accompanied by her daughter, Madelin Patient cc: LLQ chronic pain, tiredness with out any energy, a lot of BM with some constipation, acid reflex, nauseas Also patient is worry about a cancer dx class 1/nurse from [place] asked her about the cancer ??? Patient wanted to see a radio program director. Pt feels very tired all the time for the past 2-3 weeks and feels worse this week EGD and colon results were reviewed with the patient Complains of constipation - has 15 or more BMs a day and stool is hard. Notes abdominal pain and cramps and has to go to the bathroom Abd pain is a little better 10 min after a BM. Has to go back to the bathroom again after 10-15 min PAST VISITS: Feeling better and denies abdominal pain, diarrhea or constipation Abdominal pain was likely due to abd wall seroma - now resolved Patient cc: Rght center abdominal discomfort, and she denies any other GI issues. Pt is accompanied by her daughter, Madelin who interpreted.? Notes improvement in abdominal pain. Feels everything is controlled right now?? Doing OK at present. Pt reports having a normal BM 2 or more times a day. Initially had diarrhea. Notes intermittent abd discomfort due to the seroma Scheduled to see surgery at [facility] Taking Miralax once a day and laculose once a day with good evacuation and denies feeling backed up. Appetite has improved after she took prednisone. Daughter is requesting referral to the [employer] to help with diet. Urgent FU appt scheduled after recent hospitalization from 02/10 to 02/12/24: Hospital course The patient was admitted for treatment of Acute obstipation and stercoral colitis related to opioid use as CT abdomen/pelvis consistent with constipation with a large amount of fecal material present in the colon rectum and fecal material with mildly obstructive effect. as she was manually disimpacted in ED and started on Miralax, Enema and Lactulose with good response as she moved her bowels overnight and repeated KUB showed interval resolution of the constipation. Seen by GI who recommended to increase Miralax and Start LActulose on discharge with a plan to follow as outpatient. The patient had SIRS with leukocytosis likely related to inflammation and chronic steroid use. Tachycardia r/t pain and anxiety. lactic acidosis from dehydration not due to sepsis. No signs of infection. To follow with GI as outpatient. Discharge plan Start Lactulose once daily Increase Miralax to twice daily follow with dr Palafox as outpatient ?? ? Patient cc: after hernia surgery she is been with a lot of abdominal pain on and off, today she is dizzy and her BP is low. Patient said everything is okay and no GI issues today Complains of mid abdominal/periumblical pain x last week Pain is intense 9/10 in intensity Seen in the ER at [facility] and prescribed oxycodone Does not eat when she has pain - does not feel like eating. Complains of constipation - has a BM every 1-2 days. Takes prune juice which helps. Takes docusate twice a day for constipation. Denies black stools or rectal bleeding. PAST VISITS: Had ileostomy reversal 2 months ago. Surgery went well. Has a BM 2-3 times a day, has constipation on some days and does not go on some days Feeling regular Has an appt with colorectal surgeon at [facility] on 10/24/22. Pt states, the surgeon will discuss reversal of colostomy. Last Stelara injection was on Sep 25, 2022 and next injection scheduled on 10/23/22. Pt denies abdominal pain and reports a good appetite Pt is accompanied by her daughter, Aissatou. EGD results were reviewed with the patient. Denies abdominal pain or rectal bleeding. Comes to short stay for her Stelara injection - last injection 01/31/22. Next injection scheduled on 02/28/22 at 9:30 am. Not taking MTX - prescription was stopped without anyone telling the pt - prescription renewed. Has been feeling better since discharge from the hospital 10 days ago - I have abdominal pain. Sometimes when I swallow the food gets stuck - symptoms associated with solid food. Its painful to swallow. Dysphagia episodes are frequent. Food goes down with water and is very painful. Has 6-7 BMs a day. On prednisone taper at 30 mg daily and will decrease to 20 mg daily in 2 days. IBD Summary: ? Year of diagnosis: Crohn's disease diagnosed in [address] scan. ? Disease Extent: Colon ? Past treatments: Azathioprine caused pancreatitis, ? She was initially treated with Remicade which did not work and she was switched to Humira. ? Treated with Entyvio for a few months which was stopped due to side effects. ? In 09/2016, she was treated with Stelara every 8 weeks which worked well for her. ? She has been treated with Prednisone intermittently. ? Previous Endoscopic Evaluations: 01/18/20 COLONOSCOPY SHOWED: One small hyperplastic rectal polyp removed. Patchy erythema throughout the colon - surveillance biopsies were obtained. Focal area of ulcerations with a tight stricture at 18 to 20 cms and unable to pass the colonoscope through the stricture. Stricture was dilated with a 12mm (26 F) CRE balloon and colonoscope was then advanced into the colon. Patchy erythema with focal ulcers in the distal rectum. Inflammation in the recto-sigmoid significantly improved from last year - biopsies were obtained for histology. EGD and colonoscopy on 08/20/2016. ? EGD showed diffuse whittish plaques in the esophagus and diffuse erythema of the mucosa in the cardia. ? Biopsies were obtained. ? Colonoscopy showed normal mucosa in the right colon and patchy erythema and erosions in the left colon. Diffuse erythema and erosions were seen involving most of the rectum. ? Past Surgeries: She underwent Colon surgery (? removal of sigmoid colon) with colostomy at [facility] in 2010. She had reversal of colostomy in Dec, 2011. She developed a peristomal hernia. Last seen at [facility] in 11/2020 and requesting an appointment. Increased MTX to 25 mg (10 tablets) from 5 or 6 tablets daily in?March LABS IN [facility]:04/28/20 Reviewed H&H of 11.2 and 36.7, CHEM PANEL AND LFTS. ? Improvement in LFTs with AST of 32 (decreased from 93) and ALT of 70 (decreased from 190) , alkaline phosphatase 97, FERRITIN 40 ? CRP 2.20 (increased from 0.71 on 03/24/20) ? 08/12 STOOL CALPROTECTIN WAS 714 (DECREASED FROM > 2000 IN 12/11) 01/11 T spot was negative. ? IMAGING STUDIES: 09/08/[address] SCAN SHOWED: Narrowing of the segment of the proximal sigmoid colon with wall enhancement and thickening is noted which is a chronic finding as seen on multiple previous CT scans; however, possibility of mild increased wall thickening and enhancement in the region cannot be completely excluded. Given the dilatation of the colon proximal to this level on current examination, possibility of at least partial obstruction related to the proximal sigmoid colon stricture is suspected. The findings are most probably related to patient's known inflammatory bowel disease; however, again possibility of neoplastic process here cannot be c ompletely excluded. 03/[address] SCAN SHOWED:? There is a long segment of colitis from the mid transverse colon ? through the distal rectum sigmoid consistent with history of Crohn's ? disease. There has been progression of disease since prior exam of 12/16/2019. ENDOSCOPIC STUDIES:?09/28/21 EGD SHOWED: ESOPHAGUS: GE junction at 36 cms.? Focal esophagitis with a 1 cms ulcer at GEJ. No stricture or ring noted.? Scattered white exudates in the proximal and mid esophagus suggestive of esophageal candidiasis - biopsies obtained to check for Karo/EOE. STOMACH: Gastritis - biopsied to check for H Pylori Plan:? Start Fluconazole for esophageal candidiasis - likely source of dysphagia and odynophagia. Resume Eliquis tonight. 09/13/21 FLEXIBLE SIGMOIDOSCOPY SHOWED: Flexible Sigmoidoscopy Findings: Focal tight stricture from 15 to 18 cms with ulcerations. Stricture was dilated with a 10, 11 and 12 mm (36 F) CRE balloon x 60 sec at each level. Biopsies were obtained from the stricture and colon at 30 and 10 cms (proximal and distal to the stricture) Plan:? Resume full liquid diet tonight and advance diet as tolerated. OK to resume Eliquis in the am. Switch to PO prednisone at 40 mg in the am and taper by 10 mg every 5 days over 3 weeks. BIOPSIES SHOWED: A.? Colon, sigmoid at 30 cm, biopsy:? Focal chronic colitis without activity; negative for dysplasia and carcinoma. B.? Colon, sigmoid at 18 cm, stricture, biopsy:? Chronic colitis with mild to severe activity and active ulcer with granulation tissue, superficial fragments; negative for dysplasia and carcinoma. C.? Colon, sigmoid at 10 cm, biopsy:? Chronic colitis without activity; negative for dysplasia and carcinoma. Colonoscopy in 01/18/20 showed patchy erythema throughout the colon - surveillance biopsies were obtained. Focal area of ulcerations with a tight stricture at 18 to 20 cms and unable to pass the colonoscope through the stricture. Stricture was dilated with a 12mm (26 F) CRE balloon and colonoscope was then advanced into the colon. Patchy erythema with focal ulcers in the distal rectum. Inflammation in the recto-sigmoid significantly improved from last year - severe left sided colitis with minimal inflammation in the remaining colon. were negative for CMV PFSH Medical History (Updated 03/16/25 @ 14:42 by Maryan Anne MD) Crohn's colitis Urge incontinence Stricture of colon Normocytic anemia Anxiety Sleep apnea Asthma GERD (gastroesophageal reflux disease) Pulmonary embolism Crohn's disease PTSD (post-traumatic stress disorder) Recurrent major depression-severe Hyperlipidemia Hemorrhagic cyst of ovary Kidney stones Depression Iron deficiency anemia Rheumatoid arthritis Migraine Cancer HTN (hypertension) Surgical History History of esophagogastroduodenoscopy (EGD) History of colon resection History of colon resection Hx of dilation and curettage Hx of cystoscopy Hx of cystoscopy Hx of colonoscopy (~10/2018) Hx of endoscopy Social History Household Members: None Housing: Apartment Are you a primary career services assistant to a significant other at home: No Do you presently have visiting nurse or other home services: Yes ([employer]) Alcohol intake: never Patient Tobacco Use Status: Former Tobacco user Tobacco use type: Cigarette Cigarettes Per Day: 1 Years Smoked: 10 e-Cigarette/Vaping Use: Former Use Second Hand Smoke Exposure: No Substance Use Type: Marijuana Advance Directives Date on File: 02/13/24 service: No Current occupational status: unemployed and disabled Sexual orientation: Straight/Heterosexual Review of Systems Const All systems reviewed & are unremarkable except as noted in HPI and below Physical Exam Vital Signs: Last Vital Signs Pulse 92 11/23/24 10:09 BP 93/61 11/23/24 10:09 Pulse Ox 98 11/23/24 10:09 Oxygen Delivery Method Room Air 11/23/24 10:09 BMI result Body Mass Index 30.1 Const General: no acute distress Nutritional Appearance: obese Orientation/consciousness: patient oriented x3 Limitations: language barrier HEENT Head: Yes normal to inspection Ears: hearing grossly normal bilaterally Eyes Sclerae: sclerae normal Pupils: Equal, round and reactive pupils present Neck Neck: Yes normal visual inspection Chest Chest palpation & inspection: normal inspection of the chest Resp Effort & Inspection: normal respiratory effort Auscultation: clear to auscultation bilaterally Cardio Palpation: normal PMI Rate: regular rate Rhythm: regular rhythm Heart sounds: S1 normal heart sound present, S2 normal heart sound present and no murmurs GI Palpation (GI): Soft to palpation, Tenderness to palpation present (GI) (Mild diffuse abdominal tenderness) and No hepatosplenomegaly present Auscultation: normal bowel sounds Rectal Exam - Female: deferred Skin General skin exam: no rashes or lesions noted Neuro General: patient oriented x3, gait normal and moves all extremities Cranial nerves: Yes Equal, round and reactive pupils present Psych Appearance: grossly normal Mental Status: mental status grossly normal Assessment & Plan Assessment & Plan (1) Crohn's disease: Code(s): K50.90 - Crohn's disease, unspecified, without complications Category: Medical (2) GERD (gastroesophageal reflux disease): Code(s): K21.9 - Gastro-esophageal reflux disease without esophagitis Category: Medical (3) Chronic constipation: Code(s): K59.09 - Other constipation Category: Medical (4) Fatigue: Code(s): R53.83 - Other fatigue Category: Medical Plan 54 year old Tajik-speaking (able to speak some Wolof) female with RA, GERD, asthma, sleep apnea, iron def anemia, intermittent compliance with follow up appointments, anxiety, depression with some memory loss with Crohn's disease involving the left colon (and suspected jejunal involvement). Pt was diagnosed with Crohn's colitis 23 yrs ago and is status post sigmoid colectomy with colostomy in 2010, reversal of colostomy in 2011. She has failed treatment with multiple medications in the past due to lack of efficacy or side effects including Remicade, Humira, Cimzia, Entyvio, azathioprine caused pancreatitis. She has been on Stelara every 8 weeks which had worked well for her in the past. Dose of Stelara was increased to every 4 weeks 2 years ago due to breakthrough symptoms and low trough levels. She has been treated with Prednisone intermittently for CD flares. Patient was seen at [facility] IBD clinic for a 2nd opinion regarding treatment options and addition of methotrexate was advised. Patient was started on methotrexate 25 mg intramuscularly every week on 04/13/19 in the Oncology clinic. She was switched to p.o. methotrexate 50 mg once a week in Sep, 2019 - now taking 25 mg every week. She is also on budesonide 9 mg once daily. She continues to have intermittent flares requiring IV steroids. Pt was seen at [facility] on 05/03/20 and dose of MTX was increased to 25 mg PO (10 tab) every week from 5 or 6 tablets daily in March 2020. 09/13/21 Flexible sigmoidoscopy showed a?focal tight stricture from 15 to 18 cms with ulcerations. Stricture was dilated to 12 mm (36 F) with a CRE balloon. Biopsies obtained from the stricture showed chronic colitis with mild to severe activity and active ulcer with granulation tissue - negative for dysplasia and carcinoma? Biopsies obtained from 30 and 10 cms (proximal and distal to the stricture) showed focal chronic colitis without activity. 05/17/22 Pt had Robot assisted laparoscopic lysis of adhesions with resection of colorectal anastomosis and new colorectal anastomosis with loop ileostomy and left ureterolysis and mobilization of the splenic flexure by Dr Mcdonough, colorectal surgeon, [facility].? No dysplasia noted on histology. She has a FU appt to schedule ileostomy reversal after gastrograffin enema. 02/20/23 Pt will be scheduled for a surveillance colonoscopy - scheduled on 08/11/23. Advised to hold Eliquis for 3 days before colonoscopy appt (will obtain clearance from Dr Blake) Miralax once a day for constipation. Labs in March 2023. 05/29/23 mid abdominal/periumblical pain x last week Pain is intense 9/10 in intensity Seen in the ER at [facility] and prescribed oxycodone 02/20/24 Doing OK at present. Pt reports having a normal BM 2 or more times a day. Initially had diarrhea. Notes intermittent abd discomfort due to the seroma Scheduled to see surgery at [facility] Taking Miralax once a day and laculose once a day with good evacuation and denies feeling backed up. Appetite has improved after she took prednisone. Abdominal pain is likely related to seroma. Pt advised to check a fecal calprotectin to rule out active Crohn's disease Referral sent to the dietitian to discuss diet for Crohn's disease at request of patient and her daughter. 05/31/24 Feeling better and denies abdominal pain, diarrhea or constipation Abdominal pain was likely due to abd wall seroma - now resolved Advised to schedule an EGD (FU of esophagitis) and Colon (FU of Crohn's disease) 11/08/24 EGD AND COLONOSCOPY SHOWED: Endoscopy Findings: ESOPHAGUS: Normal STOMACH: Moderate gastric antral erythema DUODENUM: Normal Colonoscopy Findings: No polyps were detected Friable mucosa with patchy erythema and scattered aphthoid ulcers with active colitis from 0 to 30 cms and mild colitis in the rest of the colon - multiple biopsies were obtained. Moderate diverticulosis seen in the sigmoid colon Moderate hemorrhoids on retroflexed exam. Plan: Repeat Colonoscopy in 2 years for Crohn's disease surveillance. Pt reports compliance with Stelara injection, MTX and budesonide. She noted that she starts feeling bad 2 weeks after the Stelara injection. BIOPSIES SHOWED: A. Gastric antrum, biopsy: Gastric antral mucosa with minimal chronic gastritis with few focal neutrophils; no granuloma seen; negative for intestinal metaplasia and dysplasia. B. Colon, cecum, biopsy: Chronic colitis with mild activity and focal mucosal microgranulomas; negative for dysplasia. C. Colon, ascending, biopsy: Focal chronic colitis with minimal activity, mucosal microgranulomas, and granulomas in submucosal lymphoid aggregate; negative for dysplasia. D. Colon, transverse, biopsy: Focal chronic colitis with mild activity; no granulomas or dysplasia. E. Colon, sigmoid, biopsy: Focal chronic colitis with moderate activity and surface erosion; no granulomas or dysplasia. Comment: (A): Immunostain for H. pylori was negative. (C): AFB and GMS stains - negative Patient was placed on the colonoscopy recall list for repeat colon in 2 years 11/23/24 EGD and colon results were reviewed with the patient Complains of constipation - has 15 or more BMs a day and stool is hard. Notes abdominal pain and cramps and has to go to the bathroom Abd pain is a little better 10 min after a BM. Pt advised labs FU in 3 weeks. Orders: Orders UA CC w/rflx Micro + Cult 11/25/24 R53.83 - Other fatigue Ferritin 11/23/24 K50.90 - Crohn's disease, unspecified, without complications Prometheus Anser UST 11/23/24 K50.90 - Crohn's disease, unspecified, without complications T Spot TB 11/23/24 K50.90 - Crohn's disease, unspecified, without complications Complete Blood Count Auto Diff 11/23/24 R53.83 - Other fatigue C Reactive Protein 11/23/24 R53.83 - Other fatigue Coding Level of Care Code Est Pt Level 4 (31780) Diagnoses Crohn's disease K50.90 GERD (gastroesophageal reflux disease) K21.9 Chronic constipation K59.09 Fatigue R53.83 Time Spent (min) 21
[2024-11-23 10:09] VITALS: BP 93/61; PULSE 92; O2SAT 98; BMI 30.1
--- OUTSIDE RECORDS SUMMARY | 2024-11-23 11:38 | XMS_ITS | Encounter Summary ---
Author Organization [employer] Address [address] [place] [address] Care Team Providers Care Cab Supervisor Name Role Phone Leesa Rapp MD Primary Care Provide r Encounter Details Date Type Department Care Team ([facility] Contact Info) Description 10/30/2022 Orders Only [facility] MED & PEDS [address] [place], [place] [phone] Christy Kaye LPN Social History Tobacco Use Types Packs/Day Years Used Date Smoking Tobacco: Never Smokeless Tobacco: Never Alcohol Use Standard Drinks/Week Comments Never 0 (1 standard drink = 0.6 oz pur e alcohol) Comments Unknown Sex and Gender Information Value Date Recorded Sex Assigned at Female 06/24/2022 10:16 AM EDT Legal Sex Female 10:16 AM EDT Gender Identity Female 06/24/2022 10:16 AM EDT Sexual Orientation Straight 06/24/2022 10 :16 AM EDT COVID-19 Exposure Response Date Recorded In the last 10 days, have yo u been in contact with someone who was confirmed or suspected to have Coronavirus/COVID-19? No / Unsure 10/11/2022 9:24 AM EST documented as of this encounter Plan of Treatment Upcoming Encounters Date Type Department Care Team ([facility] Contact Info) Description 02/16/2025 9:15 AM EDT Office Visit [facility] MEDICINE [address], [place] [phone] Leesa Rapp MD [address], [place] [phone] documented as of this encounter Visit Diagnoses Not on filedocumented in this encounter Care Teams Cab Supervisor Relationship Specialty Start Date End Date Leesa Rapp MD [address] [place] [id number] PCP - General Family Medicine 10/15/19 documented as of this encounter
--- OUTSIDE RECORDS SUMMARY | 2024-11-23 11:38 | XMS_ITS | Encounter Summary ---
Author Organization [employer] Address [address] [place] [address] [address] [address] Care Team Providers Care Men'S Leather Dress Belt Maker Name Role Phone Leesa Rapp MD Primary Care Provide r Encounter Details Date Type Department Care Team ([facility] Contact Info) Description 11/28/2022 Abstract [facility] MED[facility] [address] [place] [phone] Leesa Rapp MD [address] [place] [address] [phone] Social History Tobacco Use Types Packs/Day Years [...] suspected to have Coronavirus/COVID-19? No / Unsure 11/18/2022 10:26 AM EDT documented as of this encounter Plan of Treatment Upcoming Encounters Date Type Department Care Team ([facility] Contact Info) Description 02/16/2025 9:15 AM EDT Office Visit [facility] [address] [place] [address] [phone] Leesa Rapp MD [address] [place] [address] documented as of this encounter Visit Diagnoses Not on filedocumented in this encounter Care Teams Men'S Leather Dress Belt Maker Relationship Specialty Start Date End Date Leesa Rapp MD [address] [place] [address] [phone] PCP - General Family Medicine 10/15/19 documented as of this encounter
--- OUTSIDE RECORDS SUMMARY | 2024-11-23 11:38 | XMS_ITS | Clinical Summary ---
Author Organization [facility] ity Address [address] [place] [address] Care Team Providers Care Licensed Physical Therapy Assistant Name Role Phone Macy Washburn NP Primary Care Provider [phone] Social History Tobacco Use Types Packs/Day Years Used Date Smoking Tobacco: Never Assessed Comments Unknown Sex and Gender Information Value Date Recorded Sex Assigned at Not on file Legal Sex Female 2:11 AM EST Gender Identity Not on file Sexual Orientation Not on file Obstetrics History Plan of Treatment Health Maintenance Due Date Last Done Comments Breast Cancer Screening 1970 DTaP,Tdap,and Td Vaccines (1 - Tdap) 1989 Hepatitis B Vaccines (1 of 3 - 19+ 3-dose series) 1989 Cervical Cancer Screening: P ap Smear 1991 Pneumococcal Vaccine: 50+ Ye ars (1 of 1 - PCV) 2020 Zoster Vaccines (1 of 2) 2020 COVID-19 Vaccine ( - 2023-2 5 season) 2024 Influenza Vaccine (#1) 2024 Colorectal Cancer Screening: Colonoscopy 06/19/2024 Depression Screening 06/19/2024 HIV Screening 06/19/2024 Hepatitis C Screening 06/19/2024 Social Influencers of Health Screening 06/19/2024 HIB Vaccines Aged Out No longer eligi ble based on patient's age to complete this topic HPV Vaccines Aged Out No longer eligi ble based on patient's age to complete this topic Hepatitis A Vaccines Aged Out No long er eligible based on patient's age to complete this topic IPV Vaccines Aged Out No longer eligi ble based on patient's age to complete this topic MMR Vaccines Aged Out No longer eligi ble based on patient's age to complete this topic Meningococcal ACWY Vaccine Aged Out N o longer eligible based on patient's age to complete this topic Meningococcal B Vacine Aged Out No lo nger eligible based on patient's age to complete this topic Pneumococcal Vaccine: Pediat rics (0 to 5 Years) and At-Risk Patients (6 to 64 Years) Aged Out No longer eligible b ased on patient's age to complete this topic RSV Immunization Patients Un ruben 20 months Aged Out No longer eligible b ased on patient's age to complete this topic Varicella Vaccines Aged Out No longer eligible based on patient's age to complete this topic Care Teams Licensed Physical Therapy Assistant Relationship Specialty Start Date End Date Macy Washburn NP [address] [place] [phone] PCP - General 03/12/05
--- OUTSIDE RECORDS SUMMARY | 2024-11-23 11:38 | XMS_ITS | Encounter Summary ---
Author Organization [employer] Address [address] [place] [address] Care Team Providers Care Press Assistant And Feeder Name Role Phone Leesa Rapp MD Primary Care Provide r Reason for Visit * Reason Comments Med Refill Encounter Details Date Type Department Care Team (Late Contact Info) Description 01/31/2023 Refill [facility] PEDS [address] [place], [place] [phone] Christy Stockton DO [address] [place], [place] [phone] Anxiety Social History Tobacco Use Types Packs/Day Years Used Date Smoking Tobacco: Never Smokeless Tobacco: Never Alcohol Use Standard Drinks/Week Comments Never 0 (1 standard drink = 0.6 oz pur e alcohol) Depression Answer Date Recorded Patient Health Questionnaire-2 Score 0 12/17/2022 Comments Unknown Sex and Gender Information Value Date Recorded Sex Assigned at Female 06/24/2022 10:16 AM EDT Legal Sex Female 10:16 AM EDT Gender Identity Female 06/24/2022 10:16 AM EDT Sexual Orientation Straight 06/24/2022 10 :16 AM EDT documented as of this encounter Plan of Treatment Upcoming Encounters Date Type Department Care Team (Late Contact Info) Description 02/16/2025 9:15 AM EDT Office Visit [facility] MEDICINE [address] [place], [place] [phone] Leesa Rapp MD [address] [place], [place] [phone] documented as of this encounter Visit Diagnoses Diagnosis Anxiety Anxiety state, unspecified documented in this encounter Care Teams Press Assistant And Feeder Relationship Specialty Start Date End Date Leesa Rapp MD [address] [place] [address] PCP - General Family Medicine 10/15/19 documented as of this encounter
--- OUTSIDE RECORDS SUMMARY | 2024-11-23 11:39 | XMS_ITS | Encounter Summary ---
Author Organization [employer] Address [address] [place] [address] [address] [address] Care Team Providers Care Electrical Parts Reconditioner Name Role Phone Leesa Rapp MD Primary Care Provide r Reason for Visit * Reason Comments Med Refill Encounter Details Date Type Department Care Team (Late st Contact Info) Description 04/28/2023 Refill [facility] MED[facility]INE [address] [place] [address] Christy Stockton DO [address] [place], [place] [phone] Healthcare maintenance Social History Tobacco Use Types Packs/Day Years [...] Encounters Date Type Department Care Team (Late st Contact Info) Description 02/16/2025 9:15 AM EDT Office Visit [facility] [address] [place], [place] [phone] Leesa Rapp MD [address] [place], [place] [phone] documented as of this encounter Visit Diagnoses Diagnosis Healthcare maintenance documented in this encounter Care Teams Electrical Parts Reconditioner Relationship Specialty Start Date End Date Leesa Rapp MD [address] [place] [address] PCP - General Family Medicine 10/15/19 documented as of this encounter
--- OUTSIDE RECORDS SUMMARY | 2024-11-23 11:39 | XMS_ITS | Encounter Summary ---
Author Organization [employer] Address [address] [facility] [address] [place] [address] Care Team Providers Care Business Services Vice President Name Role Phone Leesa Rapp MD Primary Care Provide r Reason for Visit * Reason Comments Med Refill Encounter Details Date Type Department Care Team ([facility] st Contact Info) Description 05/09/2024 Refill [facility] [address] [place], [place] [phone] Leesa Rapp MD [address] [place], [place] [phone] Vitamin D deficiency; Healthcare maintenance; Anxiety Social History Tobacco Use Types Packs/Day Years Used Date Smoking Tobacco: Never Smokeless Tobacco: Never Alcohol Use Standard Drinks/Week Comments Never 0 (1 standard drink = 0.6 oz pur e alcohol) Depression Answer Date Recorded Patient Health Questionnaire-9 Score 0 02/20/2024 Patient Health Questionnaire-9 Score 0 02/20/2024 Last PHQ-9: Questionnaire Data Not on file 0 02/20/2024 Housing Stability Answer Date Recorded What is your housing situation today? I have onelia rios 02/10/[address] you li ve. Do you have problems with any of the following? None of the above 02/10/2024 Food Insecurity Answer Date Recorded Within the past 12 months, y ou worried that your food would run out before you got money to buy more: Sometimes True 2023 Within the past 12 months,th e food you bought just didn't last and you didn't have enough money to get more: Sometimes True 02/10/2024 Transportation Answer Date Recorded In the past 12 months, has l ack of transportation kept you from medical appts, meetings, work or from getting things needed for daily living? Yes, it has kept me from medical appointments or getting medications. 02/10/2024 Utilities Answer Date Recorded In the past 12 months, has t he electric, gas, oil or water company threatened to shut off services in your home? No 02/10/2024 Depression Answer Date Recorded Patient Health Questionnaire-2 Score 0 02/20/2024 Internet Access Answer Date Recorded Internet Access Q1 No 04/26/2024 Internet Access Q2 I do not want or need it 09/2023 Comments Unknown Sex and Gender Information Value [...] Description 02/16/2025 9:15 AM EDT Office Visit [facility] [address] [place] [address] Leesa Rapp MD [address] [place] [address] documented as of this encounter Visit Diagnoses Diagnosis Vitamin D deficiency Healthcare maintenance Anxiety Anxiety state, unspecified documented in this encounter Additional Health Concerns Assessment Noted Time PHQ-9 Depression Total Score: 0 02/20/20 24 1:02 PM EDT documented as of this encounter Care Teams Business Services Vice President Relationship Specialty Start Date End Date Leesa Rapp MD [address] [place] [address] PCP - General Family Medicine 10/15/19 documented as of this encounter
--- OUTSIDE RECORDS SUMMARY | 2024-11-23 11:39 | XMS_ITS | Clinical Summary ---
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 Name Role Phone Leesa Rapp MD Primary Care Provide r Allergies Active Allergy Reactions Criticality Noted Date Comments Aspirin Hives High 08/16/2010 Other reaction(s): rash Azathioprine High 08/16/2010 Other reaction(s): pancreatitis, unspecified, vomiting Ibuprofen High 02/05/2024 Other Reaction(s): TOLD NOT TO TAKE Levofloxacin 09/26/2017 Other reaction(s): yeast infection Medications Proventil HFA 108 (90 Base) MCG/ACT inhaler INHALE 2 PUFFS BY MOUTH FOUR TIMES DAILY 022 Active folic acid (Folvite) 1 MG tablet TAKE 1 TABLET BY MOUTH EVERY MORNING 023 Active methotrexate 2.5 MG tablet TAKE 10 TABLETS BY MOUTH ONCE WEEKLY 023 Active naloxone (Narcan) 4 mg/0.1 mL nasal spray spray 0.1 milliliter by intranasal route once in 1 nostril may repeat dose every 2-3 minutes as needed alternating nostrils with each dose 021 Active Stelara injection 023 Active diazePAM (Valium) 5 MG tablet Take 5 mg by mouth 3 times daily. 023 Active ciclopirox (Penlac) 8 % solutionIndication s:Onycholysis Apply topically at bedtime. 6 mL 1 023 Active hydrocortisone 2.5 % cream Apply topically 2 times daily. 15 g 1 023 Active docusate sodium (Colace) 100 MG capsuleIndications :Chronic constipation TAKE 1 CAPSULE BY MOUTH TWICE DAILY IN THE MORNING AND IN THE EVENING 180 capsule 1 Active melatonin 5 MG tablet Take 1 tablet by mouth at bedtime. Active Acetaminophen Extra Strength 500 MG tablet Take 1 tablet by mouth every 6 (six) hours if needed. Active famotidine (Pepcid) 20 MG tablet TAKE 1 TABLET BY MOUTH TWICE DAILY NEEDED FOR DISCOMFORT OF THE ABDOMEN Active zolpidem (Ambien) 5 MG tabletIndications: Primary insomnia TAKE 1 TABLET BY MOUTH AT BEDTIME NEEDED FOR SLEEP 30 tablet Active lactulose (Chronulac) 10 GM/15ML solution Take 30 mL by mouth Once per day. Active polyethylene glycol, PEG, 3350 (Glycolax) 17 GM/SCOOP powder MIX 17G (1 CAPFUL) IN 8 OUNCES OF WATER AND TAKE BY MOUTH TWICE A DAY Active polyvinyl alcohol (Liquifilm Tears) 1.4 % ophthalmic solution INSTILL 1 DROP INTO THE AFFECTED EYE(S) THREE TIMES DAILY IN THE MORNING, AT NOON, AND AT BEDTIME NEEDED FOR DRY EYES Active morphine (MSIR) 15 MG tablet Take 15 mg by mouth every 6 (six) hours if needed. Active apixaban (Eliquis) 5 MG tabletIndications: Bilateral pulmonary embolism (CMS/HCC) TAKE 1 TABLET BY MOUTH TWICE DAILY IN THE MORNING AND IN THE EVENING 60 tablet 5 Active albuterol (2.5 MG/3ML) 0.083% nebulizer solutionIndication s:Moderate persistent asthma, unspecified whether complicated Take 3 mL (2.5 mg) by nebulization every 4 (four) hours if needed for wheezing. 75 mL 3 2024 Active fluticasone (Flonase) 50 MCG/ACT nasal sprayIndications:S easonal allergic rhinitis, unspecified trigger Administer 1 spray into each nostril Once per day. 16 g 3 Active triamcinolone (Kenalog) 0.1 % creamIndications:R lynette and nonspecific skin eruption Apply topically if needed in the morning and at bedtime (pain and swelling). 30 g 024 Active busPIRone (Buspar) 5 MG tabletIndications: Anxiety TAKE 1 TABLET BY MOUTH ONCE DAILY 90 tablet 1 024 Active montelukast (Singulair) 10 MG tabletIndications: Moderate persistent asthma without complication TAKE 1 TABLET BY MOUTH AT BEDTIME 90 tablet 1 024 Active Calcium Carb-Cholecalcifer ol 600-10 MG-MCG tabletIndications: Vitamin D deficiency TAKE 1 TABLET BY MOUTH TWICE DAILY IN THE MORNING AND IN THE EVENING 180 tablet 1 024 Active LORazepam (Ativan) 0.5 MG tabletIndications: Fear of flying Take 1 tablet (0.5 mg) by mouth every 6 (six) hours if needed for anxiety (use before flight) for up to 6 doses. 6 tablet 024 Active gabapentin (Neurontin) 100 MG capsuleIndications :Anxiety TAKE 1 CAPSULE BY MOUTH TWICE DAILY 60 capsule 1 025 Active ketoconazole (NIZOral) 2 % shampooIndications :Rash and nonspecific skin eruption APPLY TO THE AFFECTED AREA(S), LEAVE FOR 5 MINUTES THEN RINSE FOR 3 DAYS consecutivemen te. START ON 05/20/24. 120 mL 025 Active amLODIPine (Norvasc) 2.5 MG tabletIndications: Benign hypertension Take 1 tablet (2.5 mg) by mouth Once per day. 30 tablet 11 025 2025 Active hydroquinone 4 % creamIndications:M elasma Apply topically 2 times daily. 28.35 g 025 2025 Active fluconazole (Diflucan) 200 MG tabletIndications: Tinea versicolor Take 1 tablet (200 mg) by mouth 1 (one) time per week. 4 tablet 025 Active cholecalciferol (D3 Super Strength) 50 MCG (1999 UT) capsuleIndications :Vitamin D deficiency TAKE 1 CAPSULE BY MOUTH EVERY MORNING 90 capsule 1 025 Active risperiDONE (RisperDAL) 1 MG tabletIndications: Depression with anxiety TAKE 1 TABLET BY MOUTH TWICE DAILY IN THE MORNING AND IN THE EVENING 60 tablet 2 025 Active budesonide-formote rol (Symbicort) 160-4.5 MCG/ACT inhalerIndications :Moderate persistent asthma without complication INHALE 2 PUFFS TWICE DAILY IN THE MORNING AND IN THE EVENING RINSE MOUTH AFTER USING. 10.2 g 2 Active Multiple Vitamin (Multivitamin) tabletIndications: Healthcare maintenance TAKE 1 TABLET BY MOUTH EVERY MORNING 90 tablet 1 Active topiramate (Topamax) 100 MG tabletIndications: Chronic nonintractable headache, unspecified headache type TAKE 1 TABLET BY MOUTH TWICE DAILY IN THE MORNING AND AT BEDTIME 60 tablet 2 Active oxyCODONE-acetamin ophen (Percocet) 5-325 MG tabletIndications: Crohn's disease with complication, unspecified gastrointestinal tract location (CMS/HCC) Take 1 tablet by mouth every 8 (eight) hours if needed for severe pain for up to 7 days. 21 tablet 025 2024 Active hydrOXYzine HCl (Atarax) 25 MG tabletIndications: Mood disorder (CMS/HCC) Take 1 tablet (25 mg) by mouth if needed in the morning and at bedtime for anxiety. 30 tablet 1 Active Multiple Vitamin (Multivitamin) tabletIndications: Healthcare maintenance TAKE 1 TABLET BY MOUTH EVERY MORNING 90 tablet 1 024 2024 Discontinued(R eorder (will not trigger notification to Pharmacy)) cholecalciferol (D3 Super Strength) 50 MCG (2000 UT) capsuleIndications :Vitamin D deficiency TAKE 1 CAPSULE BY MOUTH EVERY MORNING 90 capsule 1 024 2024 Discontinued fluconazole (Diflucan) 150 MG tabletIndications: Vulvovaginal Candidiasis Take 1 pill now and then repeat 1 pill in one week 2 tablet 024 2024 Discontinued hydrOXYzine HCl (Atarax) 25 MG tabletIndications: Mood disorder (CMS/HCC) Take 1 tablet (25 mg) by mouth if needed in the morning and at bedtime for anxiety. 30 tablet 1 024 2024 Discontinued(R eorder (will not trigger notification to Pharmacy)) topiramate (Topamax) 100 MG tabletIndications: Chronic nonintractable headache, unspecified headache type TAKE 1 TABLET BY MOUTH TWICE DAILY IN THE MORNING AND AT BEDTIME 60 tablet 1 025 2024 Discontinued(R eorder (will not trigger notification to Pharmacy)) risperiDONE (RisperDAL) 1 MG tabletIndications: Depression with anxiety TAKE 1 TABLET BY MOUTH TWICE DAILY IN THE MORNING AND IN THE EVENING 60 tablet 025 2024 Discontinued budesonide-formote rol (Symbicort) 160-4.5 MCG/ACT inhalerIndications :Moderate persistent asthma without complication INHALE 2 PUFFS TWICE DAILY IN THE MORNING AND IN THE EVENING RINSE MOUTH AFTER USING. 10.2 g 025 2024 Discontinued(R eorder (will not trigger notification to Pharmacy)) Active Problems Problem Noted Date Diagnosed Date Crohn's disease with complication 11/17/2024 Assessment & Plan (11/17/2024 1:59 PM EDT): I will prescribe for patient a short course of Percocet 5/325 mg 1 tablet every 8 hours if needed, I explained to patient this is only a 1 week supply and she needs to follow-up with specialist I also explained to patient I cannot prescribe prednisone at this time until she is being seen by GI and has a plan Fear of flying 08/12/2024 Assessment & Plan (08/12/2024 10:58 AM EST): Patient has upcoming trip he needs to take to flights for each way and she panics, I will prescribed low dose lorazepam for her flights Discoloration of skin 08/12/2024 Assessment & Plan (08/12/2024 10:58 AM EST): Patient c/o discoloration of her skin she will like to be evaluated by dermatology, referral is in Seasonal allergic rhinitis 05/19/2024 Rash and nonspecific skin eruption 05/19/2024 Assessment & Plan (05/19/2024 5:04 PM EDT): Pityriasis? Ketoconazole shampoo apply on affected areas leave it for 5 minutes and then rinse ( do this for 3 days) After this if itchiness persist may use triamcinolone Dermatology referral Sebaceous cyst 05/19/2024 Dry eye 02/20/2024 Other constipation 02/20/2024 Assessment & Plan (02/20/2024 4:46 PM EDT): Stable continue to follow with GI Full incontinence of feces 09/30/2023 Encounter for Papanicolaou s mear for cervical cancer screening 07/03/2023 Rash 05/26/2023 Colon stricture 04/27/2023 Encounter for screening mamm ogram for malignant neoplasm of breast 02/26/2023 Assessment & Plan (11/17/2024 1:59 PM EDT): Mammogram ordered today Onycholysis 02/26/2023 Infected wound 12/17/2022 Assessment & Plan (12/17/2022 2:39 PM EDT): Maintain area dry and clean Daily change of wound dressing F/u with surgery, surgery office t be contacted to make sure she has a post surgical f/u visit Primary insomnia 12/17/2022 Preoperative clearance 11/18/2022 Assessment & Plan (11/18/2022 10:48 PM EDT): Patient with multiple conditions including asthma, anxiety, RA, HTN, Chron's disease undergoing Ileostomy reversal. Her conditions are controlled, she doesn't have Major risk factors for CV complications. She has hx PE on [address] scan chest on 2021 was neg PE. She's holding Eliquis for the past 2d and will continue off it until complete homeostasis is achieved in the POP. She will fu with Dr Blake for that RCRI score is <1, she doesn't need further preoperative evaluation. She will take his Risperdal And Symbicort inh in the morning of the procedure,otherwise she will resume All her regular meds once she tolerates regular PO diet. She's therefore in optimal condition for planned procedure Atypical chest pain 11/15/2022 Chronic pain syndrome 11/15/2022 Fibromyalgia 11/15/2022 Dysuria 11/15/2022 Hypertensive disorder 11/15/2022 Forgetfulness 11/15/2022 Influenza-like symptoms 11/15/2022 Mild persistent asthma 11/15/2022 Mood disorder 11/15/2022 Assessment & Plan (08/12/2024 10:59 AM EST): Continue to follow with psychiatrist and therapist I will refill her hydroxyzine PRN for anxiety until she sees her psychiatrist again Palpitations 11/15/2022 Rhinitis 11/15/2022 Shoulder pain 11/15/2022 Skin rash 11/15/2022 Obstructive sleep apnea of adult 03/20/2021 Mixed hyperlipidemia 05/07/2018 Headache 05/29/2015 Crohn disease 05/29/2015 Assessment & Plan (02/20/2024 4:47 PM EDT): Continue to follow with GI Assessment & Plan (05/26/2023 2:18 PM EDT): Do not miss appointment with specialist I will prescribe a short course of oxycodone until she is seen by GI Assessment & Plan (04/27/2023 7:35 AM EDT): Suspect Crohn's flare, active disease again given rectal hemorrhage and increasing pain, diarrhea - will initiate prednisone 40mg daily x 7 days - Flagyl 500mg BID x 7 day - oxycodone 5mg up to TID x 5 days - will coordinate with GI about whether she needs a sooner appointment for surveillance colonoscopy - ER precautions for increasing pain above this baseline, increasing volume of blood loss from the rectum, nausea or vomiting Assessment & Plan (12/17/2022 2:38 PM EDT): Seems stable, follow up with GI Essential hypertension 05/29/2015 Assessment & Plan (11/17/2024 1:58 PM EDT): Today blood pressure is slightly elevated most likely due to her pain I advised low-sodium diet and to continue with same medication at home which is amlodipine 2.5 mg daily I also advised for her to monitor blood pressure at home and report back if blood pressure is persistently higher than 140/90 Assessment & Plan (08/12/2024 10:57 AM EST): I advised: - Aerobic exercise to reduce BP. Initial goal of 30 min walk 3-5x/week. Increase as tolerated. - low-sodium diet (goal: <2g/day) and heart healthy diet such as DASH to reduce BP and prevent ASCVD. - Home BP monitoring 1-2 x day with goal of <140/90. - Seek immediate medical attention for chest pain, palpitations, SOB, syncope, or sudden changes in mental status. - Do not change or discontinue current prescriptions without first consulting health care provider Assessment & Plan (05/19/2024 4:42 PM EDT): I advise: - Aerobic exercise to reduce BP. Initial goal of 30 min walk 3-5x/week. Increase as tolerated. - low-sodium diet (goal: <2g/day) and heart healthy diet such as DASH to reduce BP and prevent ASCVD. - Home BP monitoring 1-2 x day with goal of <140/90. - Seek immediate medical attention for chest pain, palpitations, SOB, syncope, or sudden changes in mental status. - Do not change or discontinue current prescriptions without first consulting health care provider Assessment & Plan (05/26/2023 2:18 PM EDT): - Aerobic exercise to reduce BP. Initial goal of 30 min walk 3-5x/week. Increase as tolerated. - low-sodium diet (goal: <2g/day) and heart healthy diet such as DASH to reduce BP and prevent ASCVD. - Home BP monitoring 1-2 x day with goal of <140/90. - Seek immediate medical attention for chest pain, palpitations, SOB, syncope, or sudden changes in mental status. - Do not change or discontinue current prescriptions without first consulting health care provider Assessment & Plan (02/26/2023 12:40 PM EDT): - Aerobic exercise to reduce BP. Initial goal of 30 min walk 3-5x/week. Increase as tolerated. - low-sodium diet (goal: <2g/day) and heart healthy diet such as DASH to reduce BP and prevent ASCVD. - Home BP monitoring 1-2 x day with goal of <140/90. - Seek immediate medical attention for chest pain, palpitations, SOB, syncope, or sudden changes in mental status. - Do not change or discontinue current prescriptions without first consulting health care provider Hemorrhagic cyst of ovary 05/29/2015 Iron deficiency anemia 05/29/2015 Moderate persistent asthma 05/29/2015 Assessment & Plan (08/12/2024 10:57 AM EST): Stable, patient pre parole counseling aide to avoid asthma triggers C/w same interventions Mixed anxiety and depressive disorder 05/29/2015 Assessment & Plan (11/17/2024 2:00 PM EDT): Continue to follow-up with her therapist Farhan Gutierres I will prescribe for patient for now hydroxyzine 25 mg every 8 hours I explained to patient I cannot prescribe at this time clonazepam until she is evaluated by a psych provider Psychiatrist referral is done today Rheumatoid arthritis involving multiple joints 1 Assessment & Plan (04/27/2023 7:32 AM EDT): Does not have associate artistic director or apprentice painter brush She asks about pain mgmt, but the majority of her pain is intra-abdominal I think pain mgmt would have little to offer her, and that focus should be on her her Crohn's activity Vitamin D deficiency 05/29/2015 Resolved Problems Problem Noted Date Diagnosed Date Resolved Date Pulmonary embolism 11/15/2022 3 Encounters Date Type Department Care Team Description 11/17/2024 10:15 AM EDT Office Visit [facility] [address] [place] [phone] Leesa Rapp MD Essential hypertension (Primary Dx); Crohn's disease with complication, unspecified gastrointestinal tract location (CMS/HCC); Mixed anxiety and depressive disorder; Mood disorder (CMS/HCC); Encounter for screening mammogram for malignant neoplasm of breast 11/17/2024 Travel 11/08/2024 Orders Only GENERIC EXTERNAL DATA DEPARTMENT Provider, Generic External Data 11/08/2024 Patient Outreach [facility] [address] [place] [id number] Leesa Rapp MD Pre-visit Planning (SDOH screening negative and tobacco screening positive) 11/08/2024 Refill [facility] [address] [place] [address] Vee Harris MD Moderate persistent asthma without complication 11/07/2024 Refill [facility] [address] [place] [address] Jody Gloria, CONCRETE [employer]AYER Healthcare maintenance 11/07/2024 Refill [facility] [address] [place] [address] Vee Harris MD Depression with anxiety; Moderate persistent asthma without complication; Healthcare maintenance; Chronic nonintractable headache, unspecified headache type 11/07/2024 Refill [facility] [address] [place] [address] Leesa Rapp MD Chronic nonintractable headache, unspecified headache type 11/01/2024 Refill [facility] [address] [place] [phone] Jody Gloria, CONCRETE LAYER Vitamin D deficiency 10/29/2024 4:00 PM EST Office Visit [facility] [address] [place] [phone] Ernestina Ayon MD Melasma (Primary Dx); Tinea versicolor 10/29/2024 Travel 10/14/2024 Telephone [facility] [address] [place] [address] Leesa Rapp MD Colorectal Screening 09/26/2024 Refill [facility] [address] [place] [phone] Leesa Rapp MD Depression with anxiety; Moderate persistent asthma without complication 09/15/2024 2:00 PM EST Office Visit [facility] [address] [place] [phone] Renee Marte MD Benign hypertension (Primary Dx); Other constipation 09/15/2024 Telephone [facility] [address] [place] [phone] Leesa Rapp MD Nurse Triage 09/10/2024 Orders Only GENERIC EXTERNAL DATA DEPARTMENT Provider, Generic External Data 09/09/2024 Orders Only [facility] External Provider, [facility] 09/02/2024 Refill [facility] [address] [place] [address] Leesa Rapp MD Chronic nonintractable headache, unspecified headache type; Anxiety; Rash and nonspecific skin eruption from Last 3 Months Immunizations Name Administration Dates Next Due Hep B, adult 02/04/2018,10/21/2011,09/16/2011 Influenza injectable quadriv alent IIV4 with preservative 06/18/2018,08/06/2017,05/22/2015 Influenza injectable quadriv alent preservative free 06/25/2021,07/31/2016 Influenza, IIV3, injectable 07/27/2014 Influenza, Split (incl. elvira fied surface antigen) 05/24/2013,06/25/2012 Influenza, seasonal, injecta ble, preservative free 08/12/2024 Pneumococcal Conjugate PCV 20 02/20/2024 Pneumococcal Polysaccharide PPSV23 10/13/2010 TD (adult), 2 Lf tetanus tox oid, preservative free, adsorbed 09/22/2002 Tdap 01/10/2011 Zoster, Recombinant 10/24/2021 Social History Tobacco Use Types Packs/Day Years Used Date Smoking Tobacco: Never Passive Smoke Exposure: Never Smokeless Tobacco: Never Tobacco Cessation:Counseling Given: Not Answered Alcohol Use Standard Drinks/Week Comments Never 0 [...] before you got money to buy more: Never True 11/08/2024 Within the past 12 months,th e food you bought just didn't last and you didn't have enough money to get more: Never True Transportation Answer Date Recorded In the past 12 months, has l ack of transportation kept you from medical appts, meetings, work or from getting things needed for daily living? No 11/08/2024 Utilities Answer Date Recorded In the past 12 months, has t he electric, gas, oil or water company threatened to shut off services in your home? No 02/10/2024 Depression Answer Date Recorded Patient Health Questionnaire-2 Score 0 02/20/2024 Internet Access Answer Date Recorded Internet Access Q1 Yes 11/08/2024 Internet Access Q2 I do not want or need it 10/23 Comments Unknown Sex and Gender Information Value Date Recorded Sex Assigned at Female 06/24/2022 10:16 AM EDT Legal Sex Female 10:16 AM EDT Gender Identity Female 06/24/2022 10:16 AM EDT Sexual Orientation Straight 06/24/2022 10 :16 AM EDT Last Filed Vital Signs Vital Sign Reading Time Taken Comments Blood Pressure 147/84 11/17/2024 10:37 AM EDT Pulse 58 11/17/2024 10:37 AM EDT Temperature 35.3 ??C (95.6 ??F) 11/17/2024 10:37 AM E DT Respiratory Rate 18 11/17/2024 10:37 AM EDT Oxygen Saturation 98% 09/15/2024 1:31 PM EST RA Inhaled Oxygen Concentration - - Weight 79.6 kg (175 lb 6.4 oz) 11/17/2024 10:37 AM EDT Height 157.5 cm (5' 2 ) 11/17/2024 10:37 AM EDT Body Mass Index 32.08 11/17/2024 10:37 AM EDT Plan of Treatment Upcoming Encounters Date Type Department Care Team (Late st Contact Info) Description 02/16/2025 9:15 AM EDT Office Visit [facility] [address] [place] [phone] Leesa Rapp MD [address] [place] [phone] Health Maintenance Due Date Last Done Comments CT Colonography 1970 Colonoscopy 1970 FIT DNA/Cologuard 1970 FIT 1970 HIV Screening 1970 Sigmoidoscopy 1970 Hepatitis C Screening 1988 Colorectal Cancer Screening 12/15/2020 FOBT 12/15/2020 12/16/2019, 11/30/2019 DTaP/Tdap/Td Vaccines (2 - Td or Tdap) 01/10/2021 01/10/2011, 09/22/2002 Zoster Vaccines (2 of 2) 12/19/2021 10/24/2021 Mammogram 03/13/2024 03/13/2023, 11/23, 12/16/2018 COVID-19 Vaccine (1 - season) 2024 Depression Screening 02/19/2025 02/20/2024, 02/20/20 Alcohol/Substance Use Screening 05/19/2025 05/19/2024 SDOH Screening 11/08/2025 11/08/2024 Tobacco Screening 11/17/2025 11/17/2024 Cervical Cancer Screening 07/03/2028 HPV/Cotest 07/03/2028 07/03/2023 Pap Smear 07/03/2028 07/03/2023, 07/03/2023 Lipid Panel 05/19/2029 05/19/2024, 11/17/2020 RSV Patients and Patients Aged 60 years or older (1 - 1-dose 75+ series) 2045 Hepatitis B Vaccines Completed 02/04/2018, 10/21/2011, 09/16/2011 Pneumococcal Vaccine: 50+ Years Completed 02/20/2024, 10/13/2010 Influenza Vaccine Completed 08/12/2024, , 06/18/2018, Additional history exists HIB Vaccines Aged Out No longer eligi [...] patient's age to complete this topic Meningococcal Vaccine Aged Out No agustín anabella eligible based on patient's age to complete this topic RSV under 20 months Aged Out No longe r eligible based on patient's age to complete this topic Rotavirus Vaccines Aged Out No longer eligible based on patient's age to complete this topic Procedures Procedure Name Priority Date/Time Associated Diagnosis Comments HEMATOXYLIN AND EOSIN STAIN Routine 11/08/2024 8:52 AM EDT GOMORI METHENAMINE STAIN Routine 11/08/2024 8:[address] ABDOMEN PELVIS W CONTRAST Routine 09/10/2024 2:07 AM EST URINALYSIS, COMPLETE, WITH REFLEX TO CULTURE Routine 09/10/2024 1:03 AM EST SED RATE BY MODIFIED WESTERGREN Routine 09/09/2024 8:22 PM EST HIGH SENSITIVITY TROPONIN I Routine 09/09/2024 8:22 PM EST LIPASE Routine 09/09/2024 8:22 PM EST C-REACTIVE PROTEIN Routine 09/09/2024 8: 22 PM EST MAGNESIUM Routine 09/09/2024 8:22 PM EST BASIC METABOLIC PANEL Routine 09/09/2024 8:22 PM EST HEPATIC FUNCTION PANEL Routine 09/09/2024 8:22 PM EST CBC WITH AUTO DIFFERENTIAL Routine 09/09/2024 8:22 PM EST APTT Routine 09/09/2024 8:22 PM EST PROTHROMBIN TIME-INR Routine 09/09/2024 8:22 PM EST SARS COV2/INFLUENZA A/B AND RSV RNA QL NAAT Routine 09/09/2024 8:22 PM EST XR CHEST 2 VIEWS Routine 09/09/2024 7:13 PM EST XR KUB AND UPRIGHT 2 VIEWS Routine 09/09/2024 7:12 PM EST LIPID PANEL WITH REFLEX TO DIRECT LDL Routine 05/19/2024 11:00 AM EDT Essential hypertension HPV MRNA E6/E7 REFLEX TO HPV 16, 18/45 Routine 07/03/2023 10:41 AM EST IMAGE-GUIDED PAP W/AGE BASED SCR,W/CT/NG/TRICH Routine 07/03/2023 10:41 AM EST Encounter for Papanicolaou smear for cervical cancer screening BI MAMMOGRAM SCREENING TOMOSYNTHESIS BILATERAL Routine 03/13/2023 1:46 PM EDT OCCULT BLOOD, FECAL, IMMUNOASSAY Routine 12/16/2019 4:02 PM EDT from Last 3 Months or Most Recently Relevant to Health Maintenance Results * Gomori Methenamine Stain (11/08/2024 8:52 AM EDT) 11/08/2024 8:52 AM EDT 11/08/2024 10:22 AM EDT [facility] - 11/11/2024 4:33 PM EDT ----- ------- Name: Leesa Reyes ?Age/Sex: 54/F ? : 1970 Unit#: [id number] ?? Attend Dr: Libby Palafox MD ?Re11/08/24 ?Status: [facility] ? Location: [facility] ?Disch: ? ----- ------- SPEC : [id number] ? RECD: 11/08/24 ? STATUS: ??SOUT ? REQ NUM: [id number] ? DIPTI: 11/08/24 ? SUBM DR: Libby Palafox MD ? ENTERED: ??11/08/24 ?SP TYPE: Surgical ? OTHR DR: Leesa Rapp MD ? ORDERED: ??Gom Meth Stain, HE Stain/15, Acid Fast Stain, Gross Micro L4/5, IHC, ?Specials Gr. 1/2, H. pylori ?Addendum Addendum ??1 ?Entered: 11/11/24 Immunostain for H. pylori on A is negative. ??AFB is negative for acid fast organisms and GMS is negative for fungi, on C. ??Controls stain appropriately. Addendum Signed (signature on file) Domonique Bay 11/11/24 1633 ? ----- ------- ? Diagnosis ?? A. ??Gastric antrum, biopsy: ??Gastric antral mucosa with minimal chronic gastritis with ?? few focal neutrophils; no granuloma seen; negative for intestinal metaplasia and ?? dysplasia. ? B. ??Colon, cecum, biopsy: ??Chronic colitis with mild activity and focal mucosal ?? microgranulomas; negative for dysplasia. ? C. ??Colon, ascending, biopsy: ??Focal chronic colitis with minimal activity, mucosal ?? microgranulomas, and granulomas in submucosal lymphoid aggregate; negative for dysplasia. ? D. ??Colon, transverse, biopsy: ??Focal chronic colitis with mild activity; no granulomas ?? or dysplasia. ? E. ??Colon, sigmoid, biopsy: ??Focal chronic colitis with moderate activity and surface ?? erosion; no granulomas or dysplasia. ? Comment: ?? (A): ??Immunostain for H. pylori pending; addendum to follow. ?? (C): ??AFB and GMS stains pending; addendum to follow. ?Clinical History Pre-Op Dx: ??Vitamin D deficiency, Crohn's disease Post-Op Dx: Vitamin D deficiency, unspecified ? CONTINUED ON NEXT PAGE ----- ------- Name: Leesa Reyes ?Age/Sex: 54/F ? : 1970 Unit#: [id number] ?? Attend Dr: Libby Palafox MD ?Re11/08/24 ?Status: DEP SDC ? Location: HO.SSS ?Disch: ? ----- ------- SPEC : [id number] ? RECD: 11/08/24 ? STATUS: ??SOUT ? REQ NUM: [id number] ? DIPTI: 11/08/24 ? SUBM DR: Libby Palafox MD ? ENTERED: ??11/08/24 ?SP TYPE: Surgical ? OTHR DR: Leesa Rapp MD ? ORDERED: ??Gom Meth Stain, HE Stain/15, Acid Fast Stain, Gross Micro L4/5, IHC, ?Specials Gr. 1/2, H. pylori ?Microscopic Description Microscopic sections reviewed. ? Material Received ?? A. Antrum bx's, r/o H. pylori ?? B. Cecum bx's, f/u Crohn's disease ?? C. Ascending colon, f/u Crohn's disease ?? D. Transverse colon bx's, f/u Crohn's disease ?? E. Sigmoid colon bx's, f/u Crohn's disease ? Gross Description Received in five parts. Part A: ??Received in formalin labeled ?antrum bx's, rule out H. pylori? are 2 heller-pink irregular tissue fragments each measuring 0.3 cm, submitted in toto in a cassette labeled A. Part B: ??Received in formalin labeled ?cecum bx's, follow-up Crohn's disease? are 3 heller- white irregular and rectangular tissue fragments ranging from 0.2-0.4 cm with scant red- maroon blood, submitted in toto in a cassette labeled B. Part C: ??Received in formalin labeled ?ascending colon bx's, follow-up Crohn's disease? are 4 adames-white irregular and rectangular tissue fragments ranging from 0.2-0.35 cm, submitted in toto in a cassette labeled C. Part D: ??Received in formalin labeled ?transverse colon bx's, follow-up Crohn's disease? are 4 heller-pink irregular tissue fragments ranging from 0.1-0.25 cm, submitted in toto in a cassette labeled D. Part E: ??Received in formalin labeled ?sigmoid colon bx's, follow-up Crohn's disease? are 4 heller-pink irregular tissue fragments ranging from 0.15-0.2 cm, submitted in toto in a cassette labeled E. CEDS Special studies ordered and performed: Immunostain for H. pylori on A1; GMS and AFB stains on C1. ? CONTINUED ON NEXT PAGE ----- ------- Name: Leesa Reyes ?Age/Sex: 54/F ? : 1970 Unit#: [id number] ?? Attend Dr: Libby Palafox MD ?Re11/08/24 ?Status: DEP SDC ? Location: HO.SSS ?Disch: ? ----- ------- SPEC : [id number] ? RECD: 11/08/24 ? STATUS: ??SOUT ? REQ NUM: [id number] ? DIPTI: 11/08/24 ? SUBM DR: Libby Palafox MD ? ENTERED: ??11/08/24 ?SP TYPE: Surgical ? OTHR DR: Leesa Rapp MD ? ORDERED: ??Gom Meth Stain, HE Stain/15, Acid Fast Stain, Gross Micro L4/5, IHC, ?Specials Gr. 1/2, H. pylori Copies To: ?? Leesa Rapp MD ?? [facility] ?? [address] ?? [place] [address] ?? [phone] ?? Libby Palafox MD ?? [facility] ?? [address] ?? [place] [address] ?? [phone] ----- ------- Signed (signature on file) Domonique Hermosillo 11/09/242 ? ----- ------- ? END OF REPORT ? us Generic External Data Provider LAB MICROBIOLOGY - GENERAL ORDERABLES Final Result [facility] [address] [place] [address] [phone] * Hematoxylin and Eosin Stain (11/08/2024 8:52 AM EDT) 11/08/2024 8:52 AM EDT 11/08/2024 10:22 AM EDT Narrative [facility] - 11/09/2024 12:52 PM EDT ----- ------- Name: Leesa Reyes ?Age/Sex: 54/F ? : 1970 Unit#: [id number] ?? Attend Dr: Libby Palafox MD ?Re11/08/24 ?Status: DEP SDC ? Location: HO.SSS ?Disch: ? ----- ------- SPEC : [id number] ? RECD: 11/08/24 ? STATUS: ??SOUT ? REQ NUM: [id number] ? DIPTI: 11/08/24 ? SUBM DR: Libby Palafox MD ? ENTERED: ??11/08/24 ?SP TYPE: Surgical ? OTHR DR: Leesa Rapp MD ? ORDERED: ??HE Stain/15, Gross Micro L4/5, H. pylori ? Diagnosis ?? A. ??Gastric antrum, biopsy: ??Gastric antral mucosa with minimal chronic gastritis with ?? few focal neutrophils; no granuloma seen; negative for intestinal metaplasia and ?? dysplasia. ? B. ??Colon, cecum, biopsy: ??Chronic colitis with mild activity and focal mucosal ?? microgranulomas; negative for dysplasia. ? C. ??Colon, ascending, biopsy: ??Focal chronic colitis with minimal activity, mucosal ?? microgranulomas, and granulomas in submucosal lymphoid aggregate; negative for dysplasia. ? D. ??Colon, transverse, biopsy: ??Focal chronic colitis with mild activity; no granulomas ?? or dysplasia. ? E. ??Colon, sigmoid, biopsy: ??Focal chronic colitis with moderate activity and surface ?? erosion; no granulomas or dysplasia. ? Comment: ?? (A): ??Immunostain for H. pylori pending; addendum to follow. ?? (C): ??AFB and GMS stains pending; addendum to follow. ?Clinical History Pre-Op Dx: ??Vitamin D deficiency, Crohn's disease Post-Op Dx: Vitamin D deficiency, unspecified ?Microscopic Description Microscopic sections reviewed. ? Material Received ?? A. Antrum bx's, r/o H. pylori ?? B. Cecum bx's, f/u Crohn's disease ?? C. Ascending colon, f/u Crohn's disease ?? D. Transverse colon bx's, f/u Crohn's disease ?? E. Sigmoid colon bx's, f/u Crohn's disease ? CONTINUED ON NEXT PAGE ----- ------- Name: Leesa Reyes ?Age/Sex: 54/F ? : 1970 Unit#: [id number] ?? Attend Dr: Libby Palafox MD ?Re11/08/24 ?Status: DEP SDC ? Location: HO.SSS ?Disch: ? ----- ------- SPEC : [id number] ? RECD: 11/08/24 ? STATUS: ??SOUT ? REQ NUM: [id number] ? DIPTI: 11/08/24 ? SUBM DR: Libby Palafox MD ? ENTERED: ??11/08/24 ?SP TYPE: Surgical ? OTHR DR: Leesa Rapp MD ? ORDERED: ??HE Stain/15, Gross Micro L4/5, H. pylori ? Gross Description Received in five parts. Part A: ??Received in formalin labeled ?antrum bx's, rule out H. pylori? are 2 heller-pink irregular tissue fragments each measuring 0.3 cm, submitted in toto in a cassette labeled A. Part B: ??Received in formalin labeled ?cecum bx's, follow-up Crohn's disease? are 3 heller- white irregular and rectangular tissue fragments ranging from 0.2-0.4 cm with scant red- maroon blood, submitted in toto in a cassette labeled B. Part C: ??Received in formalin labeled ?ascending colon bx's, follow-up Crohn's disease? are 4 adames-white irregular and rectangular tissue fragments ranging from 0.2-0.35 cm, submitted in toto in a cassette labeled C. Part D: ??Received in formalin labeled ?transverse colon bx's, follow-up Crohn's disease? are 4 heller-pink irregular tissue fragments ranging from 0.1-0.25 cm, submitted in toto in a cassette labeled D. Part E: ??Received in formalin labeled ?sigmoid colon bx's, follow-up Crohn's disease? are 4 heller-pink irregular tissue fragments ranging from 0.15-0.2 cm, submitted in toto in a cassette labeled E. CEDS Special studies ordered and performed: Immunostain for H. pylori on A1; GMS and AFB stains on C1. Copies To: ?? Leesa Rapp MD ?? [facility] ?? [address] ?? [place] ?? [phone] ?? Libby Palafox MD ?? [facility] ?? [address] ?? [place] ?? [phone] ? CONTINUED ON NEXT PAGE ----- ------- Name: EricLeesa Peña ?Age/Sex: 54/F ? : 1970 Unit#: [id number] ?? Attend Dr: Libby Palafox MD ?Re11/08/24 ?Status: DEP SDC ? Location: HO.SSS ?Disch: ? ----- ------- SPEC : [id number] ? RECD: 11/08/24 ? STATUS: ??SOUT ? REQ NUM: [id number] ? DIPTI: 11/08/24-851 ? SUBM DR: Libby Palafox MD ? ENTERED: ??11/08/24-1027 ?SP TYPE: Surgical ? OTHR DR: Leesa Rapp MD ? ORDERED: ??HE Stain/15, Gross Micro L4/5, H. pylori ? ----- ------- Signed (signature on file) Domonique Hermosillo 11/09/24 1252 ? ----- ------- ? END OF REPORT ? us Generic External Data Provider LAB BLOOD ORDERAB LES Final Result [facility] [address] [place] [phone] * CT Abdomen Pelvis w/ Contrast (09/10/2024 2:07 AM EST) Anatomical Region Laterality Modality Body, Pelvis, Abdomen Computed T omography 09/10/2024 2:07 AM EST Narrative 09/10/2024 2:09 AM EST ? [facility] ?[address] ?[place] [address] ? CT Scan Report ? Signed ? Patient: Eric,Bonnie ?MR#: [id number] ?? [id number] ? : 1970 ?Acct:[id number] ? Age/Sex: 54 / F ?ADM Date: 09/09/24 ? Loc: HO.ED ? Attending Dr: ? Ordering Physician: Jonathon Hinojosa MD ?? Date of Service: 09/10/24 ?? Procedure(s): CT abdomen pelvis w IV con ?? Accession Number(s): [id number] ? cc: Leesa Rapp MD; Jonathon Hinojosa MD ? Report Number: ?? [id number]: Total DLP = ??497.00 mGy-cm ? CLINICAL HISTORY: H O Crohns, left-sided ABD pain R O flare-up ? CT abdomen and pelvis with contrast ? Comparison: CR - XR B - 09/09/24 19:04 EST ? Findings: ?? No consolidation or effusion. ? The gallbladder and solid organs are within normal limits. No ?? hydronephrosis or hydroureter. Small nonobstructing left renal calculus ?? present. ?? No bowel obstruction, pneumoperitoneum, or pneumatosis. Postsurgical ?? changes of the bowel are identified near the rectum. Postsurgical changes ?? of the small bowel are identified of the lower abdomen near the midline. ?? Mesh material in place at the anterior abdominal wall, suggesting prior ?? hernia repair. Small subcentimeter lymph nodes identified near the cecum. ? Pelvic contents unremarkable. No bladder wall thickening. The appendix is ?? at the upper limits of normal for size at the mid right hemiabdomen. No ?? significant periappendiceal fat stranding or free fluid to suggest acute ?? inflammatory change. ?? No acute fracture visualized. ? IMPRESSION: ?? 1. No acute inflammatory process identified within the abdomen or pelvis. ?? 2. Small nonobstructing left renal calculus. No hydronephrosis or ?? hydroureter. ? This document has been electronically signed by: Yovani Barnett MD on ?? 09/10/2024 02:07:56 ? Dictated By: ?Yovani Barnett MD ? Signed By: ?<Electronically signed by Yovani Barnett MD in OV> ? 09/10/24208 ? DD/ 6 ? TD/TT: 09/10/24206 ? Party Supply Specialist: ? Procedure Note Donotuseinterpreter, Image - 09/10/[address] [address] [address] Scan Report Signed Patient: Leesa Reyes MMR#: [id number] : 1970Acct:[id number] Age/Sex: 54 / FADM Date: 09/09/24 Loc: HO.ED Attending Dr: Ordering Physician: Jonathon Hinojosa MD Date of Service: 09/10/24 Procedure(s): CT abdomen pelvis w IV con Accession Number(s): [id number] cc: Leesa Rapp MD; Jonathon Hinojosa MD Report Number: [id number]: Total DLP = 497.00 mGy-cm CLINICAL HISTORY: H O Crohns, left-sided ABD pain R O flare-up CT abdomen and pelvis with contrast Comparison: CR - XR KUB - 09/09/24 19:04 EST Findings: No consolidation or effusion. The gallbladder and solid organs are within normal limits. No hydronephrosis or hydroureter. Small nonobstructing left renal calculus present. No bowel obstruction, pneumoperitoneum, or pneumatosis. Postsurgical changes of the bowel are identified near the rectum. Postsurgical changes of the small bowel are identified of the lower abdomen near the midline. Mesh material in place at the anterior abdominal wall, suggesting prior hernia repair. Small subcentimeter lymph nodes identified near the cecum. Pelvic contents unremarkable. No bladder wall thickening. The appendix is at the upper limits of normal for size at the mid right hemiabdomen. No significant periappendiceal fat stranding or free fluid to suggest acute inflammatory change. No acute fracture visualized. IMPRESSION: 1. No acute inflammatory process identified within the abdomen or pelvis. 2. Small nonobstructing left renal calculus. No hydronephrosis or hydroureter. This document has been electronically signed by: Yovani Barnett MD on 09/10/2024 02:07:56 Dictated By: Yovani Barnett MD Signed By: <Electronically signed by Yovani Barnett MD in OV> 09/10/24208 DD/ 6 TD/TT: 09/10/24206 Party Supply Specialist: [facility] External Provider IMG CT PROCEDURES Edited Result - Final * (ABNORMAL) Urinalysis, Complete, with Reflex to Culture (09/10/2024 1:03 AM EST) Color Urine Yellow [facility] Appearance Urine Clear [facility] PH 6.0 5.0 - 9.0 [facility] Glucose Urine UA Negative Negative mg/dL [facility] Urine Blood Trace(A) Negative [facility] Specific [place] - Urine 1.025 1.005 - 1.025 [facility] Urine Protein Negative Neg-Trace mg/dL [facility] Urine Ketones 15 Negative mg/dL [facility] Nitrite Urine Negative Negative [facility] Leukocyte Esterase Urine Negative Negative [facility] RBC Urine 0-2 0 - 2 /HPF [facility] Urine WBC 0-5 0 - 5 /HPF [facility] Urine Squamous Epithelial Cell 0-2 0 - 2 /HPF [facility] Urine Bacteria None Seen None Seen [facility] Hyaline Casts, Urine 0-2 0 - 2 /LPF [facility] 09/10/2024 1:03 AM EST 09/10/2024 1:09 AM EST Narrative [facility] - 09/10/2024 1:18 AM EST [id number], Clean Catch Generic External Data Provider LAB URINE ORDERAB LES Final Result [facility] [address] [place] [phone] * High Sensitivity Troponin I (09/09/2024 8:22 PM EST) TROPONIN I HIGH SENSITIVITY <2.7 <3.5 - 17.0 ng/L [facility] Comment:The Wagner high sens itivity Troponin-I results should beused in conjunction with other diagnostic information suchas ECG, clinical observations and information, and patientsymptoms to aid in the diagnosis of [facility]. 09/09/2024 8:22 PM EST 09/09/2024 8:25 PM EST Generic External Data Provider LAB BLOOD ORDERAB LES Final Result Performing Organization Address [facility] Co de Phone Number [facility] [address] [place] [phone] * SARS-CoV-2 RNA, Influenza A/B, and RSV RNA, Ql NAAT (09/09/2024 8:22 PM EST) Influenza A PCR NEGATIVE Negative [facility] Influenza B PCR NEGATIVE Negative [facility] Resp Syncy Virus RNA Qual PCR NEGATIVE Negative [facility] SARS COV2 PCR NEGATIVE Negative [facility] Comment:All test results mus t be correlated with clinical findings.Negative results do not preclude SARS-CoV2, influenza Avirus, influenza B virus and/or RSV infectionand should not be used as the sole basis for treatment orother patient management decisions. Negative results must becombined with clinical observations, patient history, andepidemiological information.This test has not been evaluated for monitoring treatment ofinfection.This test has been authorized by the FDA under an EmergencyUse Authorization (EUA) for use by authorized laboratories.Testing performed on the [employer] GeneXpert utilizingreal-time RT-PCR.All SARS CoV2 and positive influenza A/B results arereported to [facility]. 09/09/2024 8:22 PM EST 09/09/2024 8:25 PM EST Generic External Data Provider LAB MICROBIOLOGY - GENERAL ORDERABLES Final Result Performing Organization Address [facility] Co de Phone Number [facility] [address] [place] [phone] * (ABNORMAL) CBC auto differential (09/09/2024 8:22 PM EST) White Blood Count 8.0 4.8 - 10.8 X10*3/uL [facility] Red Blood Count 4.89 4.20 - 5.50 X10*6/uL [facility] Hemoglobin 12.3 12.0 - 16.0 g/dl [facility] Hematocrit 39.3 37.0 - 47.0 % [facility] Mean Corpuscular Volume 80.4 80.0 - 98.0 fL [facility] Mean Corpuscular Hemoglobin 25.2(L) 27.0 - 33.0 pg [facility] Mean Corpuscular HGB Conc 31.3 31.0 - 35.0 g/dl [facility] Red Cell Distribution Width 16.6(H) 11.0 - 16.0 % [facility] Platelet Count 323 160 - 400 X10*3/uL [facility] Mean Platelet Volume 11.5 9.4 - 12.3 [facility] Neutrophils Percent Auto 57.1 45 - 73 % [facility] Imm Gran Pct Auto 0.1 0.0 - 0.4 % [facility] Lymphocytes Percent Auto 34.3 20 - 40 % [facility] Monocytes Percent Auto 6.5 2 - 11 % [facility] Eosinophils Percent Auto 1.6 0 - 4 % [facility] Basophils Percent Auto 0.4 0 - 2 % [facility] NRBC Pct Auto 0.0 0.0 - 0.2 /100WBC [facility] Neutrophils Absolute Auto 4.6 2.0 - 8.3 x10*3/uL [facility] Imm Gran Abs Auto 0.01 0.00 - 0.03 X10*3/uL [facility] Lymphocytes Absolute Auto 2.8 1.2 - 4.9 X10*3/uL [facility] Monocytes Absolute Auto 0.5 0.1 - 1.2 X10*3/uL [facility] Eosinophils Absolute Auto 0.1 0.0 - 0.4 X10*3/uL [facility] Basophils Absolute Auto 0.0 0.0 - 0.2 X10*3/uL [facility] NRBC Abs Auto 0.000 0.0 - 0.012 X10*3/uL [facility] 09/09/2024 8:22 PM EST 09/09/2024 8:25 PM EST us Generic External Data Provider LAB BLOOD ORDERAB LES Final Result Performing Organization Address [facility] Co de Phone Number [facility] [address] [place] [phone] * Partial Thromboplastin Time, Activated (APTT) (09/09/2024 8:22 PM EST) Pathologist [facility] Partial Thromboplastin Time 32.8 26.0 - 36.8 SEC [facility] Comment:For information rega rding the monitoring of direct thrombininhibitors, please refer to Pharmacy. 09/09/2024 8:22 PM EST 09/09/2024 8:25 PM EST us Generic External Data Provider LAB BLOOD ORDERAB LES Final Result Performing Organization Address [facility] de Phone Number [facility] [address] [place] [phone] * (ABNORMAL) Sed Rate by Modified Papitoren (09/09/2024 8:22 PM EST) Pathologist [facility] Erythrocyte Sedimentation Rate 34(H) 0 - 20 MM/HR [facility] Comment:Patients with polycy themia and many hemoglobin abnormalitiesmay have depressed sed rates whereas patients with anemiamay have elevated sed rates. 09/09/2024 8:22 PM EST 09/09/2024 8:25 PM EST us Generic External Data Provider LAB BLOOD ORDERAB LES Final Result Performing Organization Address [facility] Co de Phone Number [facility] [address] [place] [phone] * (ABNORMAL) Prothrombin Time-INR (09/09/2024 8:22 PM EST) Pathologist [facility] Prothrombin Time 12.5(H) 10.9 - 12.4 SEC [facility] INTERNATIONAL NORM RATIO 1.1 0.9 - 1.1 [facility] Comment:INTERNATIONAL NORMAL IZED RATIO (INR) REFERENCE RANGES Reference RangeFor patients not on anticoagulant therapy: 0.9 - 1.1INR ranges for oral anticoagulanttherapy:For prevention and treatment of venous thrombosis and pulmonary embolism: 2.0 - 3.0For acute myocardial infarction with aspirin therapy: 2.0 - 3.0For acute myocardial infarction without aspirin therapy: 3.0 - 4.0For patients with mechanical prosthetic heart valves: 2.5 - 3.5 09/09/2024 8:22 PM EST 09/09/2024 8:25 PM EST Generic External Data Provider LAB BLOOD ORDERAB LES Final Result Performing Organization Address City/[facility]/ZIP Co de Phone Number [facility] [address] [place] [phone] * (ABNORMAL) C-reactive Protein (09/09/2024 8:22 PM EST) Pathologist [facility] C Reactive Protein 1.24(H) < or = 0.50 mg/dL [facility] 09/09/2024 8:22 PM EST 09/09/2024 8:25 PM EST Generic External Data Provider LAB BLOOD ORDERAB LES Final Result [facility] [address] [place] [phone] * Magnesium (09/09/2024 8:22 PM EST) Pathologist [facility] Magnesium 2.3 1.6 - 2.6 mg/dL [facility] 09/09/2024 8:22 PM EST 09/09/2024 8:25 PM EST us Generic External Data Provider LAB BLOOD ORDERAB LES Final Result Performing Organization Address [facility]/ZIP Co de Phone Number [facility] [address] [place] [phone] * Lipase (09/09/2024 8:22 PM EST) Lipase 25 8 - 78 U/L [facility] 09/09/2024 8:22 PM EST 09/09/2024 8:25 PM EST us Generic External Data Provider LAB BLOOD ORDERAB LES Final Result Performing Organization Address [facility] Co ct Phone Number [facility] [address] [place] [phone] * (ABNORMAL) Hepatic Function Panel (09/09/2024 8:22 PM EST) Bilirubin, Total 0.2 0.0 - 1.0 mg/dL [facility] Bilirubin, Direct <0.2 0.0 - 0.5 mg/dL [facility] Aspartate Amino Transferase 28 5 - 31 U/L [facility] Alanine Aminotransferase 17 0 - 31 U/L [facility] Total Protein 9.1(H) 6.5 - 8.0 g/dL [facility] Albumin Level 4.5 3.5 - 5.0 g/dL [facility] Alkaline Phosphatase 103 39 - 117 U/L [facility] 09/09/2024 8:22 PM EST 09/09/2024 8:25 PM EST Generic External Data Provider LAB BLOOD ORDERAB LES Final Result Performing Organization Address [facility] Co de Phone Number [facility] [address] [place] [phone] * (ABNORMAL) Basic Metabolic Panel (09/09/2024 8:22 PM EST) Sodium 141 135 - 145 mmol/L [facility] Potassium 3.8 3.3 - 5.1 mmol/L [facility] Chloride 106 96 - 108 mmol/L [facility] Carbon Dioxide 28 22 - 29 mmol/L [facility] Anion Gap 11(L) 12 - 20 [facility] Urea Nitrogen (BUN) 14 9 - 16 mg/dL [facility] Creatinine, Serum 0.81 0.5 - 1.4 mg/dL [facility] Creatinine Clr Calc Pharmacy 77.9 [facility] Comment:Provided height and weight: 160.02 cm,77 kg.eGFR (calculated from the MDRD study equation) and eCrCl(calculated from the Cockcroft-Gault equation) are based ondifferent parameters and may not yield comparable results.If eCrCl result is absurd, please check patient'sheight/weight. Estimated Glomerular Filt Rate >60 [facility] Comment:Chronic Kidney Disea se: Estimated GFR < 60 mL/min/1.68w3Frbxjo Kidney Disease: Estimated GFR < 15 mL/min/1.73m2 Glucose 95 60 - 115 mg/dL [facility] Calcium 9.9 8.4 - 10.2 mg/dL [facility] 09/09/2024 8:22 PM EST 09/09/2024 8:25 PM EST us Generic External Data Provider LAB BLOOD ORDERAB LES Final Result [facility] [address] [place] [phone] * XR Chest 2 Views (09/09/2024 7:13 PM EST) Anatomical Region Laterality Modality Chest Radiographic Lisa ging 09/09/2024 7:13 PM EST Narrative 09/09/2024 7:14 PM EST ? [place] [facility] ?[address] ?[place] [address] ?XRay Report ? Signed ? Patient: Eric,Bonnie ?MR#: [id number] ?? [id number] ? : 1970 ?Acct:[id number] ? Age/Sex: 54 / F ?ADM Date: 09/09/24 ? Loc: HO.ED ? Attending Dr: ? Ordering Physician: Shante Cooper ?? Date of Service: 09/09/24 ?? Procedure(s): XR chest 2V ?? Accession Number(s): [id number] ? cc: Leesa Rapp MD; Shante Cooper ? CLINICAL HISTORY: cough ? 2 view chest x-ray ? Comparison: Chest CT from 11/29/2021 ? Findings: ?? No consolidation, pneumothorax, or pleural effusion. ?? Cardiac silhouette and mediastinal contours are at the upper limits of ?? normal. ?? Mild degenerative changes including imaged AC joints. Surgical mesh ?? opacities in the [id number]. ? IMPRESSION: ?? No consolidation. ? This document has been electronically signed by: Jamie Cheek MD on ?? 09/09/2024 19:13:01 ? Dictated By: ?Jamie Cheek MD ? Signed By: ?<Electronically signed by Jamie Cheek MD in OV> ? 09/09/24 1913 ? DD/ 12 ? TD/TT: 09/09/241912 ? Party Supply Specialist: ? Procedure Note Gayle, Darion - 09/09/2024 [place] [address] XRay Report Signed Patient: Leesa Reyes MMR#: [id number] : 1970Acct:[id number] Age/Sex: 54 / FADM Date: 09/09/24 Loc: HO.ED Attending Dr: Ordering Physician: Shante Cooper Date of Service: 09/09/24 Procedure(s): XR chest 2V Accession Number(s): [id number] cc: Leesa Rapp MD; Shante Cooper CLINICAL HISTORY: cough 2 view chest x-ray Comparison: Chest CT from 11/29/2021 Findings: No consolidation, pneumothorax, or pleural effusion. Cardiac silhouette and mediastinal contours are at the upper limits of normal. Mild degenerative changes including imaged AC joints. Surgical mesh opacities in the [id number]. IMPRESSION: No consolidation. This document has been electronically signed by: Jamie Cheek MD on 09/09/2024 19:13:01 Dictated By: Jamie Cheek MD Signed By: <Electronically signed by Jamie Cheek MD in OV> 09/09/241912 DD/ 12 TD/TT: 09/09/241912 Party Supply Specialist: us [facility] External Provider IMG XR PROCEDURES Final Result * XR KUB and Upright 2 Views (09/09/2024 7:12 PM EST) Anatomical Region Laterality Modality Radiographic Lisa ging 09/09/2024 7:12 PM EST Narrative 09/09/2024 7:13 PM EST ? [facility] ?[address] ?[place] [address] ?XRay Report ? Signed ? Patient: Leesa Reyes ?MR#: [id number] ?? [id number] ? : 1970 ?Acct:[id number] ? Age/Sex: 54 / F ?ADM Date: 09/09/24 ? Loc: HO.ED ? Attending Dr: ? Ordering Physician: Shante Cooper ?? Date of Service: 09/09/24 ?? Procedure(s): XR KUB ?? Accession Number(s): [id number] ? cc: Leesa Rapp MD; Shante Cooper ? CLINICAL HISTORY: AP, r o obstruction ? 1 view abdomen ? Comparison: X-ray of the abdomen from 02/12/2024 ? Findings: ?? New and severe stool burden is present, including mildly distended cecum. ?? No small bowel dilatation in the imaged abdomen. ?? Mild atelectasis of the imaged lung bases. ?? Redemonstration of the surgical mesh opacities. ?? Degenerative changes include imaged hips. Mild rib deformities appear ?? old/chronic. ? IMPRESSION: ?? 1. Severe stool burden. ?? 2. No small bowel obstruction. ? This document has been electronically signed by: Jamie Cheek MD on ?? 09/09/2024 19:12:20 ? Dictated By: ?Jamie Cheek MD ? Signed By: ?<Electronically signed by Jamie Cheek MD in OV> ? 09/09/241912 ? DD/ 11 ? TD/TT: 09/09/241911 ? Party Supply Specialist: ? Procedure Note Donotuseinterpreter, Image - 09/09/2024 [place] [address] [place] [address] XRay Report Signed Patient: Leesa Reyes MMR#: [id number] : 1970Acct:[id number] Age/Sex: 54 / FADM Date: 09/09/24 Loc: HO.ED Attending Dr: Ordering Physician: Shante Cooper Date of Service: 09/09/24 Procedure(s): XR KUB Accession Number(s): [id number] cc: Leesa Rapp MD; Shante Cooper CLINICAL HISTORY: AP, r o obstruction 1 view abdomen Comparison: X-ray of the abdomen from 02/12/2024 Findings: New and severe stool burden is present, including mildly distended cecum. No small bowel dilatation in the imaged abdomen. Mild atelectasis of the imaged lung bases. Redemonstration of the surgical mesh opacities. Degenerative changes include imaged hips. Mild rib deformities appear old/chronic. IMPRESSION: 1. Severe stool burden. 2. No small bowel obstruction. This document has been electronically signed by: Jamie Cheek MD on 09/09/2024 19:12:20 Dictated By: Jamie Cheek MD Signed By: <Electronically signed by Jamie Cheek MD in OV> 09/09/241912 DD/ 11 TD/TT: 09/09/241911 Party Supply Specialist: us [facility] External Provider IMG XR PROCEDURES Final Result * (ABNORMAL) Lipid Panel with Reflex to Direct LDL (05/19/2024 11:00 AM EDT) Triglycerides 214(H) <150 mg/dL [facility] Comment:Desirable Triglyceri de: less than 150 mg/dLBorderline High Triglyceride 150-199 mg/dLHigh Triglyceride: 200-499 mg/dLVery High Triglyceride: greater than or equal to 5OO mg/dL Cholesterol 207(H) <200 mg/dL [facility] Comment:Desirable Cholestero l: less than 200 mg/dLBorderline High Cholesterol: 200-239 mg/dLHigh Cholesterol: greater than 239 mg/dL LDL Cholesterol Calculated 124(H) <100 mg/dL [facility] Comment:Desirable LDL: less than 100 mg/dLNear Optimal/Above Optimal LDL: 110- 129 mg/dLBorderline High LDL: 130-159 mg/dLHigh LDL: 160-189 mg/dLVery High LDL: greater than or equal to 190 mg/dL HDL Cholesterol 41 >40 mg/dL [facility] Comment:Desirable HDL: great er than 40 mg/dL Note: This HDL assay may give artificially low results in patients with liver disease. Blood 05/19/2024 11:0 0 AM EDT 05/19/2024 1:20 PM EDT Leesa Wasserman MD LAB BLOOD ORDERABLES Final Result [facility] [address] [place] [phone] * Image-Guided Pap with Age-Based Screening??with CT/NG,??Trichomonas (07/03/2023 10:41 AM EST) Trichomonas (NAAT) Not Detected Not Detected [facility] Comment:Methodology: Transcr iption Mediated Amplification(TMA)The analytical performance characteristics of thisassay have been determined by [facility] [employer] [facility] [employer], [place], [place]. The modificationshave not been cleared or approved by the FDA. Thisassay has been validated pursuant to the CLIAregulations and is used for clinical purposes.For additional information, please refer tohttp://education.restOpolis/faq/Trichomonastma (This link is being providedfor information/educational purposes only).THIS TEST WAS PERFORMED AT:[employer]/[facility] [place] [address]YTOIZWLRAYMUNDO ALLAN MD,PHD CTNG Ref Lab Not Detected Not Detected [facility] NG Ref Lab Not Detected Not Detected [facility] Comment:Methodology: Transcr iption Mediated Amplification(TMA) to detect RNA.The analytical performance characteristics of thisassay, when used to test [employer] specimens havebeen determined by [employer]. The modificationshave not been cleared or approved by the FDA.This assay has been validated pursuant to the CLIAregulations and is used for clinical purposes.For additional information, please refer tohttps://BrightContext.restOpolis/faq/MGE726(This link is being provided for information/educational purposes only).THIS TEST WAS PERFORMED AT:[employer]/[facility] [id number] [place] [address]NDZNGNDRAYMUNDO ALLAN MD,PHD 07/03/2023 10:4 1 AM EST 07/04/2023 9:02 AM EST Leesa Wasserman MD LAB CYTOLOGY ORDERABL ES Final Result [facility] [address] [place] [phone] * HPV mRNA E6/E7 w/Reflex to HPV Genotypes 16, 18/45 (07/03/2023 10:41 AM EST) HPV nRNA E6/E7 Not Detected Not Detected [facility] Comment:Methodology: Transcr iption-Mediated AmplificationThis assay detects E6/E7 viral messenger RNA (mRNA) from 14high-risk HPV types (16,18,31,33,35,39,45,51,52,56,58,59,66,68).Cervical sources are required for HPV testing.If a vaginal source from a patient who has had atotal hysterectomy with removal of cervix wassubmitted, please contact the testing laboratoryfor alternative testing options.For additional information, please refer tohttp://BrightContext.restOpolis/faq/GFN459w0(This link if provided for information/educational purposes only.)THIS TEST WAS PERFORMED AT:[facility] [address] [address]OZVOHGORDO BARROW MD HPV mRNA E6/E7 TNP [facility] HPV 16 RNA TNP [facility] HPV 18/45 RNA TNP [facility] 07/03/2023 10:4 1 AM EST 07/04/2023 8:10 AM EST Leesa Wasserman MD LAB CYTOLOGY ORDERABL ES Final Result [facility] [address] [place] [address] [phone] * BI Mammogram Screening Tomosynthesis Bilateral (03/13/2023 1:46 PM EDT) Anatomical Region Laterality Modality Breast Bilateral Mammography 03/13/2023 1:46 PM EDT Narrative 04/08/2023 1:29 PM EDT ? [facility] ? [address] ?[place] [address] ? Mammography Report ? Signed ? Patient: Eric,Bonnie ?MR#: [id number] ?? [id number] ? : 1970 ?Acct:[id number] ? Age/Sex: 52 / F ?ADM Date: // ? Loc: HO.MAMMO ? Attending Dr: Leesa Wasserman MD ? Ordering Physician: Leesa Rapp MD ?Results: ? Date of Service: //23 ?Follow Up: ? Procedure(s): MM tomosynthesis screening BI ?? Accession Number(s): [id number] ? cc: Leesa Rapp MD ? EXAMINATION: ?? MM SCREENING DIGITAL BREAST TOMOSYNTHESIS, BILATERAL ? CLINICAL INFORMATION: ? Screening. Asymptomatic. ? The lifetime risk of breast cancer based on the Tyrer-Cuzick Model is ?? 5.0%. ? COMPARISON: ?? Mammography: This study is compared with prior exams dating back to ?? 2018. ? TECHNIQUE: ?? Digital breast tomosynthesis is performed in both the craniocaudal and ?? mediolateral oblique views along with computer-aided detection (CAD). ?? Synthesized 2D images are generated from the tomosynthesis. ? FINDINGS: ?? There are scattered areas of fibroglandular density (ACR BI-RADS breast ?? composition Category b). ? There are no significant masses, abnormal calcifications, or other ?? abnormalities. ? MM/MM tomosynthesis screening BI ?? IMPRESSION: ?? No mammographic evidence of malignancy. ? ASSESSMENT: ? BI-RADS BI-RADS 1 - Negative ? RECOMMENDATION: ?? Routine annual mammography screening. ? 1 year F/U ? This examination should not preclude the clinical evaluation of a ?? suspicious palpable abnormality. ? This patient's information was entered into a reminder system with a ?? target due date for their next mammogram. ? Dictated By: ?Hailee Gaines MD ? Signed By: ?<Electronically signed by Hailee Gaines MD in OV> ? 04/08/237 ? DD/ 1346 ? TD/TT: ? Party Supply Specialist: ? Procedure Note Gayle, Darion - 04/08/2023 [facility] [address] [place] [address] Dr. Slater, DANUTA [address] Mammography Report Signed Patient: Leesa Reyes MMR#: [id number] : 1970Acct:[id number] Age/Sex: 52 / FADM Date: 03/13/23 Loc: HO.MAMMO Attending Dr: Leesa Wasserman MD Ordering Physician: Leesa Rapp MDResults: Date of Service: 03/13/23Follow Up: Procedure(s): MM tomosynthesis screening BI Accession Number(s): [id number] cc: Leesa Rapp MD EXAMINATION: MM SCREENING DIGITAL BREAST TOMOSYNTHESIS, BILATERAL CLINICAL INFORMATION: Screening. Asymptomatic. The lifetime risk of breast cancer based on the Tyrer-Cuzick Model is 5.0%. COMPARISON: Mammography: This study is compared with prior exams dating back to 2019. TECHNIQUE: Digital breast tomosynthesis is performed in both the craniocaudal and mediolateral oblique views along with computer-aided detection (CAD). Synthesized 2D images are generated from the tomosynthesis. FINDINGS: There are scattered areas of fibroglandular density (ACR BI-RADS breast composition Category b). There are no significant masses, abnormal calcifications, or other abnormalities. MM/MM tomosynthesis screening BI IMPRESSION: No mammographic evidence of malignancy. ASSESSMENT: BI-RADS BI-RADS 1 - Negative RECOMMENDATION: Routine annual mammography screening. 1 year F/U This examination should not preclude the clinical evaluation of a suspicious palpable abnormality. This patient's information was entered into a reminder system with a target due date for their next mammogram. Dictated By: Hailee Gaines MD Signed By: <Electronically signed by Hailee Gaines MD in OV> 04/08/23 1327 DD/ 1346 TD/TT: Party Supply Specialist: Leesa Wasserman MD IMG BI PROCEDURES Fin al Result * OCCULT BLOOD STOOL (12/16/2019 4:02 PM EDT) OCCULT BLOOD STOOL NEG NEG [facility] 12/16/2019 4:02 PM EDT us Historical Provider LAB BODY FLUIDS AND STOOL S ORDERABLES Final Result [facility] [address] from Last 3 Months or Most Recently Relevant to Health Maintenance Insurance [facility] [address] [place] [phone] [place] [id number] Care Teams Heatset Winder Operator Relationship Specialty Start Date End Date Leesa Rapp MD [address] [place] [phone] PCP - General Family Medicine 10/15/19
--- OUTSIDE RECORDS SUMMARY | 2024-11-23 11:39 | XMS_ITS | Encounter Summary ---
Author Organization [employer] Address [address] [facility] 7t [place] [address] Care Team Providers Care Envelope Stuffer Name Role Phone Leesa Rapp MD Primary Care Provide r Reason for Visit * Reason Comments Med Refill Encounter Details Date Type Department Care Team (Late st Contact Info) Description 12/31/2022 Refill [facility] MEDICINE [address] [place] [address] Vee Harris MD [address] [place] [address] Moderate persistent asthma without complication Social History Tobacco Use Types Packs/Day Years [...] suspected to have Coronavirus/COVID-19? No / Unsure 12/17/2022 1:08 PM EDT documented as of this encounter Plan of Treatment Upcoming Encounters Date Type Department Care Team ([facility] Contact Info) Description 02/16/2025 9:15 AM EDT Office Visit [facility] MEDICINE [address] [place] [address] Leesa Rapp MD [address] [place] [address] documented as of this encounter Visit Diagnoses Diagnosis Moderate persistent asthma without complication documented in this encounter Care Teams Envelope Stuffer Relationship Specialty Start Date End Date Leesa Rapp MD [address] [place] [address] PCP - General Family Medicine 10/15/19 documented as of this encounter
--- OUTSIDE RECORDS SUMMARY | 2024-11-23 11:39 | XMS_ITS | Encounter Summary ---
Author Organization [employer] Address [address] [place] [address] [address] [place] [address] Care Team Providers Care Forest Pathologist Name Role Phone Leesa Rapp MD Primary Care Provide r Encounter Details Date Type Department Care Team (Late st Contact Info) Description 09/04/2022 Orders Only [facility] MEDICINE [address] [place] [phone] Alayna Delcid LPN Social History Tobacco Use Types Packs/Day [...] Description 02/16/2025 9:15 AM EDT Office Visit [facility] MEDICINE [address] [place] [phone] Leesa Rapp MD 230 [place] [address] documented as of this encounter Visit Diagnoses Not on filedocumented in this encounter Care Teams Forest Pathologist Relationship Specialty Start Date End Date Leesa Rapp MD [address] [place] [phone] PCP - General Family Medicine 10/15/19 documented as of this encounter
--- OUTSIDE RECORDS SUMMARY | 2024-11-23 11:39 | XMS_ITS | Encounter Summary ---
Author Organization [employer] Address [address] [facility] 7t [place] [address] Care Team Providers Care Branch Service Representative Name Role Phone Leesa Rapp MD Primary Care Provide r Reason for Visit * Reason Comments Med Refill Encounter Details Date Type Department Care Team ([facility] st Contact Info) Description 09/03/2023 Refill [facility] [address] [place], [place] [phone] Rohini Meade MD 230 [place], [place] [phone] Chronic nonintractable headache, unspecified headache type Social History Tobacco Use Types Packs/Day Years Used Date Smoking Tobacco: Never Smokeless Tobacco: Never Alcohol Use Standard Drinks/Week Comments Never 0 (1 standard drink = 0.6 oz pur e alcohol) Housing Stability Answer Date Recorded What is your housing situation today? I have onelia rios 06/16/[address] you li ve. Do you have problems with any of the following? None of the above 06/16/2023 Food Insecurity Answer Date Recorded Within the past 12 months, y ou worried that your food would run out before you got money to buy more: Never True 06/16/2023 Within the past 12 months,th e food you bought just didn't last and you didn't have enough money to get more: Never True Transportation Answer Date Recorded In the past 12 months, has l ack of transportation kept you from medical appts, meetings, work or from getting things needed for daily living? Yes, it has kept me from medical appointments or getting medications. 06/01/2023 Utilities Answer Date Recorded In the past 12 months, has t he electric, gas, oil or water company threatened to shut off services in your home? No 06/16/2023 Depression Answer Date Recorded Patient Health Questionnaire-2 [...] Description 02/16/2025 9:15 AM EDT Office Visit [facility] MEDICINE [address] [place] [phone] Leesa Rapp MD [address] [place] [address] documented as of this encounter Visit Diagnoses Diagnosis Chronic nonintractable headache, unspecified headache type documented in this encounter Care Teams Branch Service Representative Relationship Specialty Start Date End Date Leesa Rapp MD [address] [place] [phone] PCP - General Family Medicine 10/15/19 documented as of this encounter
--- OUTSIDE RECORDS SUMMARY | 2024-11-23 11:39 | XMS_ITS | Encounter Summary ---
Author Organization [employer] Address [address] [facility] 7t [place] [address] Care Team Providers Care Claims Manager Name Role Phone Leesa Rapp MD Primary Care Provide r Reason for Visit * Reason Comments Med Refill Encounter Details Date Type Department Care Team ([facility] st Contact Info) Description 04/29/2024 Refill [facility] MEDICINE 230 [place], [place] [phone] Leesa Rapp MD [address] [place], [place] [phone] Anxiety Social History Tobacco Use Types Packs/Day [...] Description 02/16/2025 9:15 AM EDT Office Visit [facility] MEDICINE [address] [place] [phone] Leesa Rapp MD [address] [place] [address] documented as of this encounter Visit Diagnoses Diagnosis Anxiety Anxiety state, unspecified documented in this encounter Additional Health Concerns Assessment Noted Time PHQ-9 Depression Total Score: 0 02/20/20 24 1:02 PM EDT documented as of this encounter Care Teams Claims Manager Relationship Specialty Start Date End Date Leesa Rapp MD [address] [place] [phone] PCP - General Family Medicine 10/15/19 documented as of this encounter
== END 2024-11-23 10:59 | disposition home or self-care (01) ==
LOC: HO.HGI 09:58
PROVIDERS: PCP Internal Medicine; Visit Provider Internal Medicine Gastroenterology
DX: K50.90 Crohn's disease, unspecified, without complications (principal); K21.9 Gastro-esophageal reflux disease without esophagitis; K59.09 Other constipation; R53.83 Other fatigue
CPT/HCPCS: 99499

== ENCOUNTER 2024-11-29 05:01 | Emergency (ER) | payer MEDICAID, SELFPAY ==
--- NOTE | ~2024-11-29 | CT_ITS ---
CLINICAL HISTORY: LLQ pain, hx crohns CT abdomen and pelvis with contrast Comparison: CT/SR - CT ABDOMEN PELVIS W IV CON - 09/10/24 00:41 EST Findings: CT abdomen: Lung bases are clear. No acute bony lesions. No focal hepatic lesions. Main portal vein is patent. Spleen, pancreas, gallbladder, and adrenal glands are unremarkable. Unchanged left renal calculus. No ureteral calculi identified. No hydronephrosis or perinephric stranding of either kidney. Small bowel loops are of normal caliber. Postsurgical change along the anterior abdominal wall with likely recurrent hernia along the right midabdomen with focal diastasis of the right rectus abdominis muscle measuring up to 15 mm. No obstructive phenomenon seen. No free fluid or free air. CT pelvis: Suture material seen at the rectosigmoid junction. Inflammatory stranding surrounding the rectum with rectal wall thickening hyperenhancement of the rectal mucosa. No perirectal fluid collection seen to suggest abscess. No obstructive phenomenon is identified. No free air. Moderate stool within the colon. IMPRESSION: 1. Proctitis. No perirectal abscess seen. 2. Postsurgical change along the anterior abdominal wall with likely recurrent hernia with diastasis of the mid aspect of the right rectus abdominis muscle. 3. No acute solid organ abnormality. This document has been electronically signed by: Alberto Feng MD on 11/29/2024 07:25:27
--- NOTE | 2024-11-29 05:07 | ECG_ITS ---
Test Reason : ABD PAIN Blood Pressure : */* mmHG Vent. Rate : 68 BPM Atrial Rate : 68 BPM P-R Int : 134 ms QRS Dur : 84 ms QT Int : 410 ms P-R-T Axes : -16 7 26 degrees QTcB Int : 435 ms Normal sinus rhythm Normal ECG When compared with ECG of 14-Nov-2021 14:38, T wave amplitude has increased in Anterior leads Referred By: Qi Pace Electronically Signed By: Jm Nguyen
[2024-11-29 05:11] VITALS: BP 153/81; PULSE 71; RESP 12; TEMP 36.8; O2SAT 97; BMI 27.1
--- OUTSIDE RECORDS SUMMARY | 2024-11-29 05:20 | XMS_ITS | Encounter Summary ---
Author Organization [employer] Address [address] [facility] 7t [place] [address] Care Team Providers Care Manager Business Intelligence Name Role Phone Leesa Rapp MD Primary Care Provide r Reason for Visit * Reason Comments Med Refill Encounter Details Date Type Department Care Team ([facility] st Contact Info) Description 05/09/2024 Refill [facility] [address] [place], [place] [phone] Leesa Rapp MD 230 [place], [place] [phone] Vitamin D deficiency; Healthcare maintenance; Anxiety Social [...] Description 02/16/2025 9:15 AM EDT Office Visit [facility] [address] [place] [address] Leesa Rapp MD [address] [place] [address] documented as of this encounter Visit Diagnoses Diagnosis Vitamin D deficiency Healthcare maintenance Anxiety Anxiety state, unspecified documented in this encounter Additional Health Concerns Assessment Noted Time PHQ-9 Depression Total Score: 0 02/20/20 24 1:02 PM EDT documented as of this encounter Care Teams Manager Business Intelligence Relationship Specialty Start Date End Date Leesa Rapp MD [address] [place] [phone] PCP - General Family Medicine 10/15/19 documented as of this encounter
--- OUTSIDE RECORDS SUMMARY | 2024-11-29 05:20 | XMS_ITS | Clinical Summary ---
Author Organization [facility] ity Address [address] [place] [address] Care Team Providers Care Crystal Calibrator Name Role Phone Macy Washburn NP Primary Care Provider [phone] Social History Tobacco Use Types Packs/Day Years [...] age to complete this topic Care Teams Crystal Calibrator Relationship Specialty Start Date End Date Macy Washburn NP [address] [place] [phone] PCP - General 03/12/05
--- OUTSIDE RECORDS SUMMARY | 2024-11-29 05:20 | XMS_ITS | Encounter Summary ---
Author Organization [employer] Address [address] [facility] 7t [place] [address] Care Team Providers Care Residential Door Installer Name Role Phone Leesa Rapp MD Primary Care Provide r Reason for Visit * Reason Comments Med Refill Encounter Details Date Type Department Care Team (Late st Contact Info) Description 12/31/2022 Refill [facility] [address] [place] [address] Vee Harris MD [address] [place] [address] Moderate persistent asthma without complication Social History [...] Upcoming Encounters Date Type Department Care Team ([facility] Contact Info) Description 02/16/2025 9:15 AM EDT Office Visit [facility] [address] [place] [address] Leesa Rapp MD [address] [place] [address] documented as of this encounter Visit Diagnoses Diagnosis Moderate persistent asthma without complication documented in this encounter Care Teams Residential Door Installer Relationship Specialty Start Date End Date Leesa Rapp MD [address] [place] [address] PCP - General Family Medicine 10/15/19 documented as of this encounter
--- OUTSIDE RECORDS SUMMARY | 2024-11-29 05:20 | XMS_ITS | Encounter Summary ---
Author Organization [employer] Address [address] [facility] [address] [address] Care Team Providers Care Chef Under Name Role Phone Leesa Rapp MD Primary Care Provide r Reason for Visit * Reason Comments Med Refill Encounter Details Date Type Department Care Team (Late Contact Info) Description 01/31/2023 Refill [facility] PEDS [address] [place], [place] [phone] Christy Stockton DO [address] [place], [place] [phone] Anxiety Social History Tobacco Use Types Packs/Day [...] Description 02/16/2025 9:15 AM EDT Office Visit [facility] [address] [place], [place] [phone] Leesa Rapp MD [address] [place], [place] [phone] documented as of this encounter Visit Diagnoses Diagnosis Anxiety Anxiety state, unspecified documented in this encounter Care Teams Chef Under Relationship Specialty Start Date End Date Leesa Rapp MD [address] [place] [address] PCP - General Family Medicine 10/15/19 documented as of this encounter
--- OUTSIDE RECORDS SUMMARY | 2024-11-29 05:20 | XMS_ITS | Encounter Summary ---
Author Organization [employer] Address [address] [place] [address] [address] [address] Care Team Providers Care Secy Name Role Phone Leesa Rapp MD Primary Care Provide r Reason for Visit * Reason Comments Med Refill Encounter Details Date Type Department Care Team (Late st Contact Info) Description 04/28/2023 Refill [facility] [address] [place] [address] Christy Stockton DO [address] [place], [place] [phone] Healthcare maintenance Social History Tobacco Use Types [...] Description 02/16/2025 9:15 AM EDT Office Visit [facility] [address] [place], [place] [phone] Leesa Rapp MD [address] [place], [place] [phone] documented as of this encounter Visit Diagnoses Diagnosis Healthcare maintenance documented in this encounter Care Teams Secy Relationship Specialty Start Date End Date Leesa Rapp MD [address] [place] [address] PCP - General Family Medicine 10/15/19 documented as of this encounter
--- OUTSIDE RECORDS SUMMARY | 2024-11-29 05:20 | XMS_ITS | Encounter Summary ---
Author Organization [employer] Address [address] [place] [address] 7[place] [address] Care Team Providers Care Institutional Nutrition Consultant Name Role Phone Leesa Rapp MD Primary Care Provide r Encounter Details Date Type Department Care Team ([facility] Contact Info) Description 11/28/2022 Abstract [facility] [address] [place] [phone] Leesa Rapp MD [address] [place] [address] [phone] Social History Tobacco Use Types Packs/Day Years [...] Date Type Department Care Team ([facility] Contact Info) Description 02/16/2025 9:15 AM EDT Office Visit [facility] [address] [place] [address] [phone] Leesa Rapp MD [address] [place] [address] documented as of this encounter Visit Diagnoses Not on filedocumented in this encounter Care Teams Institutional Nutrition Consultant Relationship Specialty Start Date End Date Leesa Rapp MD [address] [place] [address] [phone] PCP - General Family Medicine 10/15/19 documented as of this encounter
--- OUTSIDE RECORDS SUMMARY | 2024-11-29 05:20 | XMS_ITS | Encounter Summary ---
Author Organization [employer] Address [address] [facility] [address]t [place] [address] Care Team Providers Care Aviation Technician Aircraft Name Role Phone Leesa Rapp MD Primary Care Provide r Reason for Visit * Reason Comments Med Refill Encounter Details Date Type Department Care Team ([facility] st Contact Info) Description 09/03/2023 Refill [facility] 230 [place], [place] [phone] Rohini Meade MD [address] [place], [place] [phone] Chronic nonintractable headache, unspecified headache type Social [...] Description 02/16/2025 9:15 AM EDT Office Visit [facility] MED[facility] [address] [place] [phone] Leesa Rapp MD [address] [place] [address] documented as of this encounter Visit Diagnoses Diagnosis Chronic nonintractable headache, unspecified headache type documented in this encounter Care Teams Aviation Technician Aircraft Relationship Specialty Start Date End Date Leesa Rapp MD [address] [place] [phone] PCP - General Family Medicine 10/15/19 documented as of this encounter
--- OUTSIDE RECORDS SUMMARY | 2024-11-29 05:20 | XMS_ITS | Encounter Summary ---
Author Organization [employer] Address [address] [facility] 7t [place] [address] Care Team Providers Care Bulk Mail Technician Name Role Phone Leesa Rapp MD Primary Care Provide r Reason for Visit * Reason Comments Med Refill Encounter Details Date Type Department Care Team ([facility] st Contact Info) Description 04/29/2024 Refill [facility] MEDICINE [address] [place], [place] [phone] Leesa Rapp MD [address] [place], [place] [phone] Anxiety Social History Tobacco Use Types Packs/Day [...] 02/16/2025 9:15 AM EDT Office Visit [facility] MEDICINE [address] [place] [phone] Leesa Rapp MD [address] [place] [address] documented as of this encounter Visit Diagnoses Diagnosis Anxiety Anxiety state, unspecified documented in this encounter Additional Health Concerns Assessment Noted Time PHQ-9 Depression Total Score: 0 02/20/20 24 1:02 PM EDT documented as of this encounter Care Teams Bulk Mail Technician Relationship Specialty Start Date End Date Leesa Rapp MD [address] [place] [phone] PCP - General Family Medicine 10/15/19 documented as of this encounter
--- OUTSIDE RECORDS SUMMARY | 2024-11-29 05:20 | XMS_ITS | Encounter Summary ---
Author Organization [employer] Address [address] [facility] 7t [place] [address] Care Team Providers Care Stitcher Utility Name Role Phone Leesa Rapp MD Primary Care Provide r Encounter Details Date Type Department Care Team ([facility] Contact Info) Description 10/30/2022 Orders Only [facility] MED & PEDS [address] [place], [place] [phone] Christy Kaye LPN Social History Tobacco Use [...] Upcoming Encounters Date Type Department Care Team ([facility] Contact Info) Description 02/16/2025 9:15 AM EDT Office Visit [facility] MEDICINE [address] [place], [place] [phone] Leesa Rapp MD [address] [place], [place] [phone] documented as of this encounter Visit Diagnoses Not on filedocumented in this encounter Care Teams Stitcher Utility Relationship Specialty Start Date End Date Leesa Rapp MD [address] [place] [phone] PCP - General Family Medicine 10/15/19 documented as of this encounter
--- OUTSIDE RECORDS SUMMARY | 2024-11-29 05:20 | XMS_ITS | Encounter Summary ---
Author Organization [employer] Address [address] [facility] 7t [place] [address] Care Team Providers Care Court Bailiff Name Role Phone Leesa Rapp MD Primary Care Provide r Encounter Details Date Type Department Care Team ([facility] st Contact Info) Description 11/24/2024 Population Health Risk Score [facility] ([facility]) Department [address] [facility] [address] [place] [phone] Provider, Population Health Generic Social History Tobacco Use Types Packs/Day Years [...] 9:15 AM EDT Office Visit [facility] MED[facility]INE [address] [place] [phone] Leesa Rapp MD [address] [place] [phone] documented as of this encounter Visit Diagnoses Not on filedocumented in this encounter Additional Health Concerns Assessment Noted Time PHQ-9 Depression Total Score: 0 02/20/20 24 1:02 PM EDT documented as of this encounter Care Teams Court Bailiff Relationship Specialty Start Date End Date Leesa Rapp MD [address] [place] [address] [phone] PCP - General Family Medicine 10/15/19 documented as of this encounter
--- OUTSIDE RECORDS SUMMARY | 2024-11-29 05:21 | XMS_ITS | Clinical Summary ---
Author Organization [employer] Address [address] [facility] [address] [place] [address] Care Team Providers Care Priming Powder Premix Blender Name Role Phone Leesa Rapp MD Primary [...] RINSE MOUTH AFTER USING. 10.2 g 2 025 Active Multiple Vitamin (Multivitamin) tabletIndications: Healthcare maintenance TAKE 1 TABLET BY MOUTH EVERY MORNING 90 tablet 1 025 Active topiramate (Topamax) 100 MG tabletIndications: Chronic nonintractable headache, unspecified headache type TAKE 1 TABLET BY MOUTH TWICE DAILY IN THE MORNING AND AT BEDTIME 60 tablet 2 025 Active hydrOXYzine HCl (Atarax) 25 MG tabletIndications: Mood disorder (CMS/HCC) Take 1 tablet (25 mg) by mouth if needed in the morning and at bedtime for anxiety. 30 tablet 1 025 Active Multiple Vitamin (Multivitamin) tabletIndications: Healthcare maintenance TAKE 1 TABLET BY MOUTH EVERY MORNING 90 tablet 1 024 2024 Discontinued(R eorder (will not trigger notification to Pharmacy)) cholecalciferol (D3 Super Strength) 50 MCG (1999 UT) capsuleIndications :Vitamin D deficiency TAKE 1 CAPSULE BY MOUTH EVERY MORNING 90 capsule 1 024 2024 Discontinued hydrOXYzine HCl (Atarax) 25 [...] eorder (will not trigger notification to Pharmacy)) oxyCODONE-acetamin ophen (Percocet) 5-325 MG tabletIndications: Crohn's disease with complication, unspecified gastrointestinal tract location (CMS/HCC) Take 1 tablet by mouth every 8 (eight) hours if needed for severe pain for up to 7 days. 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 She asks about pain mgmt, but the majority of her pain is intra-abdominal I think pain mgmt would have little to offer her, and that focus should be on her her Crohn's activity Vitamin D deficiency 05/29/2015 Resolved Problems Problem Noted Date Diagnosed Date Resolved Date Pulmonary embolism 11/15/2022 3 Encounters Date Type Department Care Team Description 11/24/2024 Population Health Risk Score [facility] () Department [address] [phone] Provider, Population Health Generic 11/23/2024 Orders Only GENERIC EXTERNAL DATA DEPARTMENT Provider, Generic External Data 11/17/2024 10:15 AM EDT Office Visit [facility] [address] [place] [phone] Leesa Rapp MD Essential hypertension (Primary Dx); Crohn's disease with complication, unspecified gastrointestinal tract location (CMS/HCC); Mixed anxiety and depressive disorder; Mood disorder (CMS/HCC); Encounter for screening mammogram for malignant neoplasm of breast 11/17/2024 Travel 11/08/2024 Orders Only GENERIC EXTERNAL DATA DEPARTMENT Provider, Generic External Data 11/08/2024 Patient Outreach [facility] [address] [place] [address] Leesa Rapp MD Pre-visit Planning (SDOH screening negative and tobacco screening positive) 11/08/2024 Refill [facility] [address] [place] [address] Vee Harris MD Moderate persistent asthma without complication 11/07/2024 Refill [facility] [address] [place] [address] Jody Gloria, DALE Healthcare maintenance 11/07/2024 Refill [facility] [address] [place] [address] Vee Harris MD Depression with anxiety; Moderate persistent asthma without complication; Healthcare maintenance; Chronic nonintractable headache, unspecified headache type 11/07/2024 Refill [facility] [address] [place] [address] Leesa Rapp MD Chronic nonintractable headache, unspecified headache type 11/01/2024 Refill [facility] [address] [place] [address] 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, 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 Vitamin D deficiency 10/29/2024 4:00 PM EST Office Visit [facility] [address] [place] [phone] Ernestina Ayon MD Melasma (Primary Dx); Tinea versicolor 10/29/2024 Travel 10/14/2024 Telephone [facility] [address] [place] [address] Leesa Rapp MD Colorectal Screening 09/26/2024 Refill [facility] [address] [place] [address] Leesa Rapp MD Depression with anxiety; Moderate persistent asthma without complication 09/15/2024 2:00 PM EST Office Visit [facility] [address] [place] [phone] Renee Marte MD Benign hypertension (Primary Dx); Other constipation 09/15/2024 Telephone [facility] [address] [place] [address] Leesa Rapp MD Nurse Triage 09/10/2024 Orders Only GENERIC EXTERNAL DATA DEPARTMENT Provider, Generic External Data 09/09/2024 Orders Only [facility] External Provider, [facility] 09/02/2024 Refill [facility] [address] [place] [address] Leesa Rapp MD Chronic nonintractable headache, unspecified [...] Description 02/16/2025 9:15 AM EDT Office Visit [facility] [address] [place] [address] Leesa Rapp MD [address] [place] [address] Health Maintenance Due Date Last Done Comments [...] Procedure Name Priority Date/Time Associated Diagnosis Comments T-SPOT(R).TB Routine 11/23/2024 11:39 AM EDT FERRITIN Routine 11/23/2024 11:39 AM EDT C-REACTIVE [...] Recently Relevant to Health Maintenance Results * T-SPOT??.TB (11/23/2024 11:39 AM EDT) [facility] T Spot TB Negative Negative [facility] Comment:A negative test resu lt does not exclude the possibilityof exposure to or infection with Mycobacteriumtuberculosis (M. tuberculosis). Patients with recentexposure to TB infected individuals exhibiting anegative T-SPOT.TB result should be considered forretesting within 6 weeks or if other relevant clinicalsymptoms indicate. Results from T-SPOT.TB testing mustbe used in conjunction with each individual'sepidemiological history, current medical status,and results of other diagnostic evaluations.The T-SPOT.TB test is qualitative and results arereported as positive, borderline, or negative, giventhat the test controls perform as expected. In linewith the Centers for Disease Control and Prevention's2010 recommendation to report quantitative measurementsalongside the qualitative result, the laboratoryprovides spot counts for informational purposes only.The T-SPOT.TB test should not be interpreted as aquantitative test. TS PANEL A 0 [facility] TS PANEL B 2 [facility] Negative Control Passed [facility] Positive Control Passed [facility] Comment:For additional infor jewelltaz, please refer tohttp://education.[employer]/faq/ZZD821(This link is being provided for informational/educational purposes only.)THIS TEST WAS PERFORMED AT:[employer] [id number] [place] [address]SMWAHLC W. MASON,MD,PHD 11/23/2024 11:3 9 AM EDT 11/23/2024 11:39 AM EDT us Generic External Data Provider LAB BLOOD ORDERAB LES Final Result [facility] [address] [place] [phone] * (ABNORMAL) CBC auto differential (11/23/2024 11:39 AM EDT) Only the most recent of2 resultswithin the time period is included. White Blood Count 6.9 4.8 - 10.8 X10*3/uL [facility] Red Blood Count 4.58 4.20 - 5.50 X10*6/uL [facility] Hemoglobin 11.6(L) 12.0 - 16.0 g/dl [facility] Hematocrit 36.6(L) 37.0 - 47.0 % [facility] Mean Corpuscular Volume 79.9(L) 80.0 - 98.0 fL [facility] Mean Corpuscular Hemoglobin 25.3(L) 27.0 - 33.0 pg [facility] Mean Corpuscular HGB Conc 31.7 31.0 - 35.0 g/dl [facility] Red Cell Distribution Width 16.5(H) 11.0 - 16.0 % [facility] Platelet Count 278 160 - 400 X10*3/uL [facility] Mean Platelet Volume 12.1 9.4 - 12.3 fL [facility] Neutrophils Percent Auto 54.1 45 - 73 % [facility] Imm Gran Pct Auto 0.3 0.0 - 0.4 % [facility] Lymphocytes Percent Auto 34.1 20 - 40 % [facility] Monocytes Percent Auto 9.6 2 - 11 % [facility] Eosinophils Percent Auto 1.2 0 - 4 % [facility] Basophils Percent Auto 0.7 0 - 2 % [facility] NRBC Pct Auto 0.0 0.0 - 0.2 /100WBC [facility] Neutrophils Absolute Auto 3.7 2.0 - 8.3 x10*3/uL [facility] Imm Gran Abs Auto 0.02 0.00 - 0.03 X10*3/uL [facility] Lymphocytes Absolute Auto 2.4 1.2 - 4.9 X10*3/uL [facility] Monocytes Absolute Auto 0.7 0.1 - 1.2 X10*3/uL [facility] Eosinophils Absolute Auto 0.1 0.0 - 0.4 X10*3/uL [facility] Basophils Absolute Auto 0.1 0.0 - 0.2 X10*3/uL [facility] NRBC Abs Auto 0.000 0.0 - 0.012 X10*3/uL [facility] 11/23/2024 11:3 9 AM EDT 11/23/2024 11:39 AM EDT us Generic External Data Provider LAB BLOOD ORDERAB LES Final Result [facility] [address] [place] [phone] * (ABNORMAL) C-reactive Protein (11/23/2024 11:39 AM EDT) Only the most recent of2 resultswithin the time period is included. C Reactive Protein 0.74(H) < or = 0.50 mg/dL [facility] 11/23/2024 11:3 9 AM EDT 11/23/2024 11:39 AM EDT Generic External Data Provider LAB BLOOD ORDERAB LES Final Result Performing Organization Address [facility] de Phone Number [facility] [address] [place] [phone] * (ABNORMAL) Ferritin (11/23/2024 11:39 AM EDT) Ferritin 5(L) 10 - 250 ng/mL [facility] 11/23/2024 11:3 9 AM EDT 11/23/2024 11:39 AM EDT Generic External Data Provider LAB BLOOD ORDERAB LES Final Result Performing Organization Address [facility] de Phone Number [facility] [address] [place] [phone] * Gomori Methenamine Stain (11/08/2024 8:52 AM EDT) 11/08/2024 8:52 AM EDT 11/08/2024 10:22 AM EDT Narrative [facility] - 11/11/2024 4:33 PM EDT ----- ------- Name: Leesa Reyes ?Age/Sex: 54/F ? : 1970 Unit#: [id number] ?? Attend Dr: Libby Palafox MD ?Re11/08/24 ?Status: DEP SDC ? Location: HO.SSS ?Disch: ? ----- ------- SPEC : [id number] ? RECD: 11/08/24 ? STATUS: ??SOUT ? REQ NUM: [id number] ? DIPTI: 11/08/24 ? SUBM DR: Libby Palafox MD ? ENTERED: ??11/08/24-1027 ?SP TYPE: Surgical ? OTHR DR: Leesa Rapp MD ? ORDERED: ??Gom Meth Stain, HE Stain/15, Acid Fast Stain, Gross Micro L4/5, IHC, ?Specials Gr. 1/2, H. pylori ?Addendum Addendum ??1 ?Entered: 11/11/24-2 Immunostain for H. pylori on A is negative. ??AFB is negative for acid fast organisms and GMS is negative for fungi, on C. ??Controls stain appropriately. Addendum Signed (signature on file) Domonique Hermosillo 11/11/24 1633 ? ----- ------- ? Diagnosis [...] Reyes ?Age/Sex: 54/F ? : 1970 Unit#: [id number] ?? Attend Dr: Libby Palafox MD ?Re11/08/24 ?Status: DEP SDC ? Location: HO.SSS ?Disch: ? ----- ------- SPEC : [id number] ? RECD: 11/08/24 ? STATUS: ??SOUT ? REQ NUM: [id number] ? DIPTI: 11/08/24 ? SUBM DR: Libby [...] CONTINUED ON NEXT PAGE ----- ------- Name: EricBonnie ?Age/Sex: 54/F ? : 1970 Unit#: [id number] ?? Attend Dr: Libby Palafox MD ?Re11/08/24 ?Status: DEP SDC ? Location: HO.SSS ?Disch: ? ----- ------- SPEC : [id number] ? RECD: 11/08/24-1022 ? STATUS: ??SOUT ? REQ NUM: [id number] ? DIPTI: 11/08/24-0871 ? SUBM DR: Libby Palafox MD ? ENTERED: ??11/08/24-1028 ?SP TYPE: Surgical ? OTHR DR: Leesa Rapp MD ? ORDERED: ??Gom Meth Stain, HE Stain/15, Acid Fast Stain, Gross Micro L4/5, IHC, ?Specials Gr. 1/2, H. pylori Copies To: ?? Leesa Rapp MD ?? [facility] ?? [address] ?? [place] [address] ?? [phone] ?? Libby Palafox MD ?? [facility] ?? [address] ?? [place] [address] ?? [phone] ----- ------- Signed (signature on file) Domonique Hermosillo 11/09/24 1252 ? ----- ------- ? END OF REPORT ? us Generic External Data Provider LAB MICROBIOLOGY - GENERAL ORDERABLES Final Result [facility] [address] [place] [address] [phone] * Hematoxylin and Eosin Stain (11/08/2024 8:52 AM EDT) 11/08/2024 8:52 AM EDT 11/08/2024 10:22 AM EDT Narrative [facility] - 11/09/2024 12:52 PM EDT ----- ------- Name: Leesa Reyes ?Age/Sex: 54/F ? : 1970 Unit#: [id number] ?? Attend Dr: Libby Palafox MD ?Re11/08/24 ?Status: DEP SDC ? Location: HO.SSS ?Disch: ? ----- ------- SPEC : [id number] ? RECD: 11/08/24-1022 ? STATUS: ??SOUT ? REQ NUM: [id number] ? DIPTI: 11/08/24-851 ? SUBM DR: Libby Palafox MD ? ENTERED: ??11/08/24-1027 ?SP TYPE: Surgical ? OTHR DR: Leesa Rpap MD ? ORDERED: ??HE Stain/15, Gross Micro [...] Reyes ?Age/Sex: 54/F ? : 1970 Unit#: [id number] ?? Attend Dr: Libby Palafox MD ?Re11/08/24 ?Status: DEP SDC ? Location: HO.SSS ?Disch: ? ----- ------- SPEC : [id number] ? RECD: 11/08/24-1022 ? STATUS: ??SOUT ? REQ NUM: [id number] ? DIPTI: 11/08/24-52 ? SUBM DR: Libby Palafox MD ? [...] colon bx's, follow-up Crohn's disease? are 4 admaes-white irregular and rectangular tissue fragments ranging from [...] Copies To: ?? Leesa Rapp MD ?? [facility] ?? [address] ?? [place] [address] ?? [phone] ?? Libby Palafox MD ?? [facility] ?? [address] ?? [place] [address] ?? [phone] ? CONTINUED ON NEXT PAGE ----- ------- Name: Leesa Reyes ?Age/Sex: 54/F ? : 1970 Unit#: [id number] ?? Attend Dr: Libby Palafox MD ?Re11/08/24 ?Status: DEP CTC ? Location: HO.SSS ?Disch: ? ----- ------- SPEC : [id number] ? RECD: 11/08/24-1022 ? STATUS: ??SOUT ? REQ NUM: [id number] ? DIPTI: 11/08/24-851 ? SUBM DR: Libby Palafox MD ? ENTERED: ??11/08/24-1027 ?SP TYPE: Surgical ? OTHR DR: Leesa Rapp MD ? ORDERED: ??HE Stain/15, Gross Micro L4/5, H. pylori ? ----- ------- Signed (signature on file) Domonique Hermosillo 11/09/24 1252 ? ----- ------- ? END OF REPORT ? us Generic External Data Provider LAB BLOOD ORDERAB LES Final Result [facility] [address] [place] [phone] * CT Abdomen Pelvis w/ Contrast (09/10/2024 2:07 AM EST) Anatomical Region Laterality Modality Body, Pelvis, Abdomen Computed T omography 09/10/2024 2:07 AM EST Narrative 09/10/2024 2:09 AM EST ? [facility] ?[address] ?[place] [address] ? CT Scan Report ? Signed ? Patient: EricBonnie ?MR#: [id number] ?? [id number] ? : 1970 ?Acct:[id number] ? Age/Sex: 54 / F ?ADM Date: 09/09/24 ? Loc: HO.ED ? Attending Dr: ? Ordering Physician: Jonathon Hinojosa MD ?? Date of Service: 09/10/24 ?? Procedure(s): CT abdomen pelvis w IV con ?? Accession Number(s): [id number] ? cc: Leesa Rapp MD; Jonathon Hinojosa MD ? Report Number: ?? [id number]: Total DLP = ??497.00 mGy-cm ? CLINICAL HISTORY: H O Crohns, left-sided ABD pain R O flare-up ? CT abdomen and pelvis with contrast ? Comparison: CR - XR [facility] - 09/09/24 19:04 EST ? Findings: [...] in OV> ? 09/10/24 0209 ? DD/ 0207 ? TD/TT: 09/10/24 0207 ? Shipping And Receiving Clerk: ? Procedure Note Donotskylarinterpreter, Image - 09/10/[address] [address] [address] Scan Report Signed Patient: Leesa Reyes MMR#: [id number] : 1970Acct:[id number] Age/Sex: 54 / FADM Date: 09/09/24 Loc: HO.ED Attending Dr: Ordering Physician: Jonathon Hinojosa MD Date of Service: 09/10/24 Procedure(s): CT abdomen pelvis w IV con Accession Number(s): [id number] cc: Leesa Rapp MD; Jonathon Hinojosa MD Report Number: [id number]: Total DLP = 497.00 mGy-cm CLINICAL HISTORY: [...] in OV> 09/10/24208 DD/ 6 TD/TT: 09/10/24206 Shipping And Receiving Clerk: [facility] External Provider IMG CT PROCEDURES Edited Result - Final * (ABNORMAL) Urinalysis, Complete, with Reflex to Culture (09/10/2024 1:03 AM EST) Color Urine Yellow [facility] Appearance Urine Clear [facility] PH 6.0 5.0 - 9.0 [facility] Glucose Urine UA Negative Negative mg/dL [facility] Urine Blood Trace(A) Negative [facility] Specific [place] - Urine 1.025 1.005 - 1.025 [facility] Urine Protein Negative Neg-Trace mg/dL [facility] Urine Ketones 15 Negative mg/dL [facility] Nitrite Urine Negative Negative [facility] Leukocyte Esterase Urine Negative Negative [facility] RBC Urine 0-2 0 - 2 /HPF [facility] Urine WBC 0-5 0 - 5 /HPF [facility] Urine Squamous Epithelial Cell 0-2 0 - 2 /HPF [facility] Urine Bacteria None Seen None Seen [facility] Hyaline Casts, Urine 0-2 0 - 2 /LPF [facility] 09/10/2024 1:03 AM EST 09/10/2024 1:09 AM EST Narrative [facility] - 09/10/2024 1:18 AM EST [id number], Clean Catch Generic External Data Provider LAB URINE ORDERAB LES Final Result Performing Organization Address [facility] Co de Phone Number [facility] [address] [place] [phone] * High Sensitivity Troponin I (09/09/2024 8:22 PM EST) Pathologist [facility] TROPONIN I HIGH SENSITIVITY <2.7 <3.5 - 17.0 ng/L [facility] Comment:The Wagner high sens itivity Troponin-I results should beused in conjunction with other diagnostic information suchas ECG, clinical observations and information, and patientsymptoms to aid in the diagnosis of OR. 09/09/2024 8:22 PM EST 09/09/2024 8:25 PM EST Generic External Data Provider LAB BLOOD ORDERAB LES Final Result Performing Organization Address [facility] Co de Phone Number [facility] [address] [place] [phone] * SARS-CoV-2 RNA, Influenza A/B, and RSV RNA, Ql NAAT (09/09/2024 8:22 PM EST) [facility] Influenza A PCR NEGATIVE Negative [facility] Influenza B PCR NEGATIVE Negative [facility] Resp Syncy Virus RNA Qual PCR NEGATIVE Negative [facility] SARS COV2 PCR NEGATIVE Negative [facility] Comment:All test results mus t [...] use by authorized laboratories.Testing performed on the [employer] GeneXpert utilizingreal-time RT-PCR.All SARS CoV2 and positive influenza A/B results arereported to [facility]. 09/09/2024 8:22 PM EST 09/09/2024 8:25 PM EST Generic External Data Provider LAB MICROBIOLOGY - GENERAL ORDERABLES Final Result Performing Organization Address [facility] Co de Phone Number [facility] [address] [place] [phone] * Partial Thromboplastin Time, Activated (APTT) (09/09/2024 8:22 PM EST) Partial Thromboplastin Time 32.8 26.0 - 36.8 SEC [facility] Comment:For information rega rding the monitoring of direct thrombininhibitors, please refer to Pharmacy. 09/09/2024 8:22 PM EST 09/09/2024 8:25 PM EST Generic External Data Provider LAB BLOOD ORDERAB LES Final Result Performing Organization Address [facility] de Phone Number [facility] [address] [place] [phone] * (ABNORMAL) Sed Rate by Modified Westergren (09/09/2024 8:22 PM EST) Erythrocyte Sedimentation Rate 34(H) 0 - 20 MM/HR [facility] Comment:Patients with polycy themia and many hemoglobin abnormalitiesmay have depressed sed rates whereas patients with anemiamay have elevated sed rates. 09/09/2024 8:22 PM EST 09/09/2024 8:25 PM EST Generic External Data Provider LAB BLOOD ORDERAB LES Final Result Performing Organization Address [facility] Co de Phone Number [facility] [address] [place] [phone] * (ABNORMAL) Prothrombin Time-INR (09/09/2024 8:22 PM EST) Prothrombin Time 12.5(H) 10.9 - 12.4 SEC [facility] INTERNATIONAL NORM RATIO 1.1 0.9 - 1.1 [facility] Comment:INTERNATIONAL NORMAL IZED RATIO (INR) REFERENCE [...] ORDERAB LES Final Result Performing Organization Address [facility]/ZIP Co de Phone Number [facility] [address] [place] [phone] * Magnesium (09/09/2024 8:22 PM EST) Magnesium 2.3 1.6 - 2.6 mg/dL [facility] 09/09/2024 8:22 PM EST 09/09/2024 8:25 PM EST Generic External Data Provider LAB BLOOD ORDERAB LES Final Result Performing Organization Address [facility] Co de Phone Number [facility] [address] [place] [phone] * Lipase (09/09/2024 8:22 PM EST) Lipase 25 8 - 78 U/L [facility] 09/09/2024 8:22 PM EST 09/09/2024 8:25 PM EST Generic External Data Provider LAB BLOOD ORDERAB LES Final Result Performing Organization Address City/[facility]/ZIP Co de Phone Number [facility] [address] [place] [phone] * (ABNORMAL) Hepatic Function Panel (09/09/2024 8:22 PM EST) Bilirubin, Total 0.2 0.0 - 1.0 mg/dL [facility] Bilirubin, Direct <0.2 0.0 - 0.5 mg/dL [facility] Aspartate Amino Transferase 28 5 - 31 U/L [facility] Alanine Aminotransferase 17 0 - 31 U/L [facility] Total Protein 9.1(H) 6.5 - 8.0 g/dL [facility] Albumin Level 4.5 3.5 - 5.0 g/dL [facility] Alkaline Phosphatase 103 39 - 117 U/L [facility] 09/09/2024 8:22 PM EST 09/09/2024 8:25 PM EST us Generic External Data Provider LAB BLOOD ORDERAB LES Final Result [facility] [address] [place] [phone] * (ABNORMAL) Basic Metabolic Panel (09/09/2024 8:22 PM EST) Pathologist [facility] Sodium 141 135 - 145 mmol/L [facility] Potassium 3.8 3.3 - 5.1 mmol/L [facility] Chloride 106 96 - 108 mmol/L [facility] Carbon Dioxide 28 22 - 29 mmol/L [facility] Anion Gap 11(L) 12 - 20 [facility] Urea Nitrogen (BUN) 14 9 - 16 mg/dL [facility] Creatinine, Serum 0.81 0.5 - 1.4 mg/dL [facility] Creatinine Clr Calc Pharmacy 77.9 [facility] Comment:Provided height and weight: 160.02 cm,77 kg.eGFR (calculated from the MDRD study equation) and eCrCl(calculated from the Cockcroft-Gault equation) are based ondifferent parameters and may not yield comparable results.If eCrCl result is absurd, please check patient'sheight/weight. Estimated Glomerular Filt Rate >60 [facility] Comment:Chronic Kidney Disea se: Estimated GFR < 60 mL/min/1.83g4Yekeeq Kidney Disease: Estimated GFR < 15 mL/min/1.73m2 Glucose 95 60 - 115 mg/dL [facility] Calcium 9.9 8.4 - 10.2 mg/dL [facility] 09/09/2024 8:22 PM EST 09/09/2024 8:25 PM EST us Generic External Data Provider LAB BLOOD ORDERAB LES Final Result [facility] [address] [place] [phone] * XR Chest 2 Views (09/09/2024 7:13 PM EST) Anatomical Region Laterality Modality Chest Radiographic Lisa ging 09/09/2024 7:13 PM EST Narrative 09/09/2024 7:14 PM EST ? [facility] ?[address] ?[place] [address] ?XRay Report ? Signed ? Patient: EricLeesa garcia ?MR#: [id number] ?? [id number] ? : 1970 ?Acct:[id number] ? Age/Sex: 54 / F ?ADM Date: 09/09/24 ? Loc: HO.ED ? Attending Dr: ? Ordering Physician: Shante Cooper ?? Date of Service: 09/09/24 ?? Procedure(s): XR chest 2V ?? Accession Number(s): [id number] ? cc: Leesa Rapp MD; Shante Cooper ? CLINICAL HISTORY: cough ? 2 view chest x-ray ? Comparison: Chest CT from 11/29/2021 ? Findings: ?? No consolidation, pneumothorax, or pleural effusion. ?? Cardiac silhouette and mediastinal contours are at the upper limits of ?? normal. ?? Mild degenerative changes including imaged AC joints. Surgical mesh ?? opacities in the pgsnm-ws-vazg. ? IMPRESSION: ?? No consolidation. ? This document has been electronically signed by: Jamie Cheek MD on ?? 09/09/2024 19:13:01 ? Dictated By: ?Jamie Cheek MD ? Signed By: ?<Electronically signed by Jamie Cheek MD in OV> ? 09/09/241912 ? DD/ 12 ? TD/TT: 09/09/241912 ? Shipping And Receiving Clerk: ? Procedure Note Donotuseinterpreter, Image - 09/09/[address] [address] XRay Report Signed Patient: Leesa Reyes MMR#: [id number] : 1970Acct:[id number] Age/Sex: 54 / FADM Date: 09/09/24 Loc: HO.ED Attending Dr: Ordering Physician: Shante Cooper Date of Service: 09/09/24 Procedure(s): XR chest 2V Accession Number(s): [id number] cc: Leesa Rapp MD; Shante Cooper CLINICAL HISTORY: cough 2 view chest x-ray Comparison: Chest CT from 11/29/2021 Findings: No consolidation, pneumothorax, or pleural effusion. Cardiac silhouette and mediastinal contours are at the upper limits of normal. Mild degenerative changes including imaged AC joints. Surgical mesh opacities in the ikwbg-jr-yauy. IMPRESSION: No consolidation. This document has been electronically signed by: Jamie Cheek MD on 09/09/2024 19:13:01 Dictated By: Jamie Cheek MD Signed By: <Electronically signed by Jamie Cheek MD in OV> 09/09/241912 DD/ 12 TD/TT: 09/09/241912 Shipping And Receiving Clerk: us [facility] External Provider IMG XR PROCEDURES Final Result * XR KUB and Upright 2 Views (09/09/2024 7:12 PM EST) Anatomical Region Laterality Modality Radiographic Lisa ging 09/09/2024 7:12 PM EST Narrative 09/09/2024 7:13 PM EST ? [facility] ?[address] ?[place] [address] ?XRay Report ? Signed ? Patient: Eric,Bonnie ?MR#: [id number] ?? [id number] ? : 1970 ?Acct:[id number] ? Age/Sex: 54 / F ?ADM Date: 09/09/24 ? Loc: HO.ED ? Attending Dr: ? Ordering Physician: Shante Cooper ?? Date of Service: 09/09/24 ?? Procedure(s): XR KUB ?? Accession Number(s): [id number] ? cc: Leesa Rapp MD; Shante Cooper [...] ? DD/ 11 ? TD/TT: 09/09/241911 ? Shipping And Receiving Clerk: ? Procedure Note Gayle, Darion - 09/09/[address] [address] XRay Report Signed Patient: Leesa Reyes MMR#: [id number] : 1970Acct:[id number] Age/Sex: 54 / FADM Date: 09/09/24 Loc: HO.ED Attending Dr: Ordering Physician: Shante Cooper Date of Service: 09/09/24 Procedure(s): XR KUB Accession Number(s): [id number] cc: Leesa Rapp MD; Shante Cooper CLINICAL [...] in OV> 09/09/241912 DD/ 11 TD/TT: 09/09/241911 Shipping And Receiving Clerk: [facility] External Provider IMG XR PROCEDURES Final Result * (ABNORMAL) Lipid Panel with Reflex to Direct LDL (05/19/2024 11:00 AM EDT) Triglycerides 214(H) <150 mg/dL [facility] Comment:Desirable Triglyceri de: less than 150 mg/dLBorderline High Triglyceride 150-199 mg/dLHigh Triglyceride: 200-499 mg/dLVery High Triglyceride: greater than or equal to 5OO mg/dL Cholesterol 207(H) <200 mg/dL [facility] Comment:Desirable Cholestero l: less than 200 mg/dLBorderline High Cholesterol: 200-239 mg/dLHigh Cholesterol: greater than 239 mg/dL LDL Cholesterol Calculated 124(H) <100 mg/dL [facility] Comment:Desirable LDL: less than 100 mg/dLNear Optimal/Above Optimal LDL: 110- 129 mg/dLBorderline High LDL: 130-159 mg/dLHigh LDL: 160-189 mg/dLVery High LDL: greater than or equal to 190 mg/dL HDL Cholesterol 41 >40 mg/dL [facility] Comment:Desirable HDL: great er than 40 mg/dL Note: This HDL assay may give artificially low results in patients with liver disease. Blood 05/19/2024 11:0 0 AM EDT 05/19/2024 1:20 PM EDT Elma Amrita Wasserman MD LAB BLOOD ORDERABLES Final Result [facility] [address] [place] [phone] * Image-Guided Pap with Age-Based Screening??with CT/NG,??Trichomonas (07/03/2023 10:41 AM EST) Trichomonas (NAAT) Not Detected Not Detected [facility] Comment:Methodology: Transcr iption Mediated Amplification(TMA)The analytical performance characteristics of thisassay have been determined by [facility] [employer], [place], [place]. The modificationshave not been cleared or approved by the FDA. Thisassay has been validated pursuant to the CLIAregulations and is used for clinical purposes.For additional information, please refer tohttp://[employer]/faq/Trichomonastma (This link is being providedfor information/educational purposes only).THIS TEST WAS PERFORMED AT:[employer] [id number] [place] [address]EFACADXRAYMUNDO ALLAN MD,PHD CTNG Ref Lab Not Detected Not Detected [facility] NG Ref Lab Not Detected Not Detected [facility] Comment:Methodology: Transcr iption Mediated Amplification(TMA) to detect RNA.The analytical performance characteristics of thisassay, when used to test [employer] specimens havebeen determined by [employer]. The modificationshave not been cleared or approved by the FDA.This assay has been validated pursuant to the CLIAregulations and is used for clinical purposes.For additional information, please refer tohttps://[employer]/faq/CKO081(This link is being provided for information/educational purposes only).THIS TEST WAS PERFORMED AT:[employer] [id number] [place] [address]DALFMPRRAYMUNDO ALLAN MD,PHD 07/03/2023 10:4 1 AM EST 07/04/2023 9:02 AM EST us Leesa Wasserman MD LAB CYTOLOGY ORDERABL ES Final Result Performing Organization Address City/[facility]/ZIP Co de Phone Number [facility] [address] [place] [phone] * HPV mRNA E6/E7 w/Reflex to HPV Genotypes 16, 18/45 (07/03/2023 10:41 AM EST) HPV nRNA E6/E7 Not Detected Not Detected [facility] Comment:Methodology: Transcr iption-Mediated AmplificationThis assay detects E6/E7 viral messenger RNA (mRNA) from 14high-risk HPV types (16,18,31,33,35,39,45,51,52,56,58,59,66,68).Cervical sources are required for HPV testing.If a vaginal source from a patient who has had atotal hysterectomy with removal of cervix wassubmitted, please contact the testing laboratoryfor alternative testing options.For additional information, please refer tohttp://education.[employer]/faq/AJS643w0(This link if provided for information/educational purposes only.)THIS TEST WAS PERFORMED AT:[employer] [place] [id number] BARROW MD HPV mRNA E6/E7 [facility] HPV 16 RNA [facility] HPV 18/45 RNA [facility] 07/03/2023 10:4 1 AM EST 07/04/2023 8:10 AM EST us Leesa Wasserman MD LAB CYTOLOGY ORDERABL ES Final Result Performing Organization Address City/[facility]/ZIP Co de Phone Number [facility] [address] [place] [phone] * BI Mammogram Screening Tomosynthesis Bilateral (03/13/2023 1:46 PM EDT) Anatomical Region Laterality Modality Breast Bilateral Mammography 03/13/2023 1:46 PM EDT Narrative 04/08/2023 1:29 PM EDT ? [facility] ? [address] ?[place] [address] ? Mammography Report ? Signed ? Patient: Eric,Bonnie ?MR#: [id number] ?? [id number] ? : 1970 ?Acct:[id number] ? Age/Sex: 52 / F ?ADM Date: 03/13/23 ? Loc: HO.MAMMO ? Attending Dr: Leesa Wasserman MD ? Ordering Physician: Leesa Rapp MD ?Results: ? Date of Service: 03/13/23 ?Follow Up: ? Procedure(s): MM tomosynthesis screening BI ?? Accession Number(s): [id number] ? cc: Leesa Rapp MD ? EXAMINATION: [...] 1327 ? DD/ 1346 ? TD/TT: ? Shipping And Receiving Clerk: ? Procedure Note Donchanelmanjinderter, Image - 04/08/2023 [place] [facility] [address] [place], [place] [address] Mammography Report Signed Patient: Leesa Reyes MMR#: [id number] : 1970Acct:[id number] Age/Sex: 52 / FADM Date: 03/13/23 Loc: CATHERINE Attending Dr: Leesa Wasserman MD Ordering Physician: Leesa Rapp MDResults: Date of Service: 03/13/23Follow Up: Procedure(s): MM tomosynthesis screening BI Accession Number(s): [id number] cc: Leesa Rapp MD EXAMINATION: MM SCREENING [...] in OV> 04/08/23 1327 DD/ 1346 TD/TT: Shipping And Receiving Clerk: Leesa Wasserman MD IMG BI PROCEDURES Fin al Result * OCCULT BLOOD STOOL (12/16/2019 4:02 PM EDT) OCCULT BLOOD STOOL NEG NEG [facility] 12/16/2019 4:02 PM EDT us Historical Provider LAB BODY FLUIDS AND STOOL S ORDERABLES Final Result [facility] [address] from Last 3 Months or Most Recently Relevant to Health Maintenance Insurance [employer] * Guarantor: Leesa Reyes Account Type Relation to Patient Date of Phone Billing Address Personal/Family Self [address] [place] [address] * Guarantor: Leesa Reyes Account Type Relation to Patient Date of Phone Billing Address Personal/Family Self [address] [place] [address] * Guarantor: Leesa Reyes Account Type Relation to Patient Date of Phone Billing Address Personal/Family Self [address] [place] [address] Care Teams Priming Powder Premix Blender Relationship Specialty Start Date End Date Leesa Rapp MD [address] [place] [phone] PCP - General Family Medicine 10/15/19
--- OUTSIDE RECORDS SUMMARY | 2024-11-29 05:21 | XMS_ITS | Encounter Summary ---
Author Organization [employer] Address [address] [place] [address] [address] [place] [address] Care Team Providers Care Disc Sander Name Role Phone Leesa Rapp MD Primary Care Provide r Encounter Details Date Type Department Care Team (Late st Contact Info) Description 09/04/2022 Orders Only [facility] [address] [place] [phone] Alayna Delcid LPN Social History Tobacco Use [...] Description 02/16/2025 9:15 AM EDT Office Visit [facility] [address] [place] [phone] Leesa Rapp MD [address] [place] [address] documented as of this encounter Visit Diagnoses Not on filedocumented in this encounter Care Teams Disc Sander Relationship Specialty Start Date End Date Leesa Rapp MD [address] [place] [phone] PCP - General Family Medicine 10/15/19 documented as of this encounter
[2024-11-29 05:34] LABS: MANUAL DIFF FLAG NO
[2024-11-29 05:35] LABS: Basophils Percent Auto 0.6 % (0-2); Eosinophils Absolute Auto 0.1 X10*3/uL (0.0-0.4); Eosinophils Percent Auto 1.5 % (0-4); Hematocrit 34.2 % (37.0-47.0); Hemoglobin 11.2 g/dl (12.0-16.0); Imm Gran Abs Auto 0.02 X10*3/uL (0.00-0.03); Imm Gran Pct Auto 0.3 % (0.0-0.4); Lymphocytes Absolute Auto 2.4 X10*3/uL (1.2-4.9); Lymphocytes Percent Auto 33.5 % (20-40); Mean Corpuscular HGB Conc 32.7 g/dl (31.0-35.0); Mean Corpuscular Hemoglobin 25.5 pg (27.0-33.0); Mean Corpuscular Volume 77.9 fL (80.0-98.0); Mean Platelet Volume 12.1 fL (9.4-12.3); Monocytes Absolute Auto 0.9 X10*3/uL (0.1-1.2); Monocytes Percent Auto 12.4 % (2-11); Neutrophils Absolute Auto 3.7 x10*3/uL (2.0-8.3); Neutrophils Percent Auto 51.7 % (45-73); Platelet Count 234 X10*3/uL (160-400); Red Blood Count 4.39 X10*6/uL (4.20-5.50); Red Cell Distribution Width 16.7 % (11.0-16.0); White Blood Count 7.2 X10*3/uL (4.8-10.8)
[2024-11-29 05:44] LABS: Appearance Urine Clear; Color Urine Yellow; Glucose Urine UA Negative (Negative); Leukocyte Esterase Urine Trace (Negative); Nitrite Urine Negative (Negative); PH 5.5 (5.0-9.0); Specific Gravity - Urine 1.025 (1.005-1.025); UMIC TRIGGER UACC YES; Urine Blood Small (1+) (Negative); Urine Ketones Trace mg/dL (Negative); Urine Protein Negative (Neg-Trace)
[2024-11-29 05:58] LABS: Bacteria Urine None Seen (None Seen); Hyaline Casts Urine 0-2 /LPF (0-2); RBC Urine 0-2 /HPF (0-2); Squamous Epithelial Cell Urine 0-2 /HPF (0-2); WBC Urine 0-5 /HPF (0-5)
[2024-11-29 06:01] LABS: Alanine Aminotransferase 12 U/L (0-31); Albumin Level 3.8 g/dL (3.5-5.0); Alkaline Phosphatase 76 U/L (39-117); Anion Gap 15 (12-20); Aspartate Amino Transferase 37 U/L (5-31); Bilirubin Direct < 0.2 mg/dL (0.0-0.5); Bilirubin Total 0.2 mg/dL (0.0-1.0); Blood Urea Nitrogen 15 mg/dL (9-16); Calcium 8.7 mg/dL (8.4-10.2); Carbon Dioxide 17 mmol/L (22-29); Chloride 110 mmol/L (96-108); Estimated Glomerular Filt Rate > 60; Glucose Random 100 mg/dL (60-115); Lipase 28 U/L (8-78); Potassium 4.9 mmol/L (3.3-5.1); Sodium 137 mmol/L (135-145); Total Protein 7.8 g/dL (6.5-8.0)
--- NOTE | 2024-11-29 06:29 | ED_ITS ---
HPI - Abdominal Pain General Chief Complaint: Abdominal Pain Stated Complaint: crohn's disease flare up Time Seen by Provider: 11/29/24 06:29 Source: patient Mode of arrival: ambulatory Limitations: no limitations History of Present Illness ED Provider: Dr. Qi Pace HPI narrative: Patient comes to the emergency room complaining of 4-5 days of abdominal pain. Patient states that over last 2 weeks she has had intermittent pain but now it has been constant for a few days. Patient states that she has history of Crohn's. Patient usually takes Stelara, last injection 2 days ago. Patient states that sometimes she sees blood in the stool. Patient denies any vomiting. Denies fever chills, denies hematuria or dysuria. Related Data Home Medications ?Medication ?Instructions ?Recorded ?Confirmed docusate sodium 100 mg capsule 1 cap PO BID PRN Constipation 03/22/21 11/23/24 montelukast 10 mg tablet 1 tab PO BEDTIME 03/22/21 11/23/24 multivitamin 1 tab PO QAM 03/22/21 11/23/24 albuterol sulfate 90 mcg/actuation 2 puff PO Q4H PRN Shortness Of 06/13/21 11/23/24 aerosol inhaler (ProAir HFA) Breath hydroxyzine HCl 25 mg tablet 1 tab PO BID PRN Anxiety 06/25/21 11/23/24 lidocaine 4 % topical patch 1 patch topical DAILY PRN 06/25/21 11/23/24 Breakthrough Pain budesonide-formoterol HFA 160 2 puff PO BID 09/08/21 11/23/24 mcg-4.5 mcg/actuation aerosol inhaler (Symbicort) gabapentin 100 mg capsule 100 mg PO BID 01/28/22 11/23/24 paroxetine HCl 40 mg tablet 40 mg PO QAM 12/17/23 11/23/24 zolpidem 5 mg tablet 5 mg PO BEDTIME PRN insomnia 12/17/23 11/23/24 acetaminophen 325 mg tablet 650 mg PO Q4H PRN Pain 02/11/24 11/23/24 (Tylenol) calcium carbonate 500 mg PO BID 02/11/24 11/23/24 carboxymethylcellulose sodium 1 % 1 drp ophthalmic (eye) BID PRN Dry 02/11/24 11/23/24 eye liquid gel drops Eye(S) clonazepam 0.5 mg tablet 0.5 mg PO BEDTIME PRN Anxiety 02/11/24 11/23/24 melatonin 3 mg tablet 3 mg PO BEDTIME PRN Sleep 02/11/24 11/23/24 topiramate 100 mg tablet 100 mg PO BID 02/11/24 11/23/24 Previous Rx's ?Medication ?Instructions ?Recorded risperidone 1 mg tablet 1 mg PO BID #60 tabs 04/04/21 vitamin B complex-folic acid 0.4 1 tab PO QAM #30 tabs 11/09/21 mg tablet (B Complex 1 (with folic acid)) folic acid 1 mg tablet 1 mg PO DAILY 60 days #60 tabs 10/24/22 oxybutynin chloride 15 mg 15 mg PO DAILY 30 days #30 tabs 10/31/23 tablet,extended release 24 hr famotidine 20 mg tablet (Pepcid) 20 mg PO BID PRN abdominal 01/29/24 discomfort #60 tabs lactulose 20 gram/30 mL oral 20 g (30 mL) PO DAILY #900 mL 02/12/24 solution polyethylene glycol 3350 17 17 g PO BID 30 days #510 grams 02/12/24 gram/dose oral powder (Miralax) apixaban 2.5 mg tablet (Eliquis) 2.5 mg PO BID #60 tabs 06/17/24 hydromorphone 4 mg tablet 4 mg PO Q6H PRN severe pain (scale 09/10/24 score 7-10) #10 tabs ondansetron 4 mg disintegrating 4 mg PO Q6-8H PRN nausea and 09/10/24 tablet vomiting #14 tabs prednisone 10 mg tablet 10 mg PO DIRECTED #60 tabs 09/10/24 methotrexate sodium 2.5 mg tablet 25 mg (10 x 2.5 mg) PO FR 90 days 11/26/24 #130 tabs doxycycline hyclate 100 mg tablet 100 mg PO BID #14 tabs 11/29/24 prednisone 10 mg tablet 10 mg PO DIRECTED #30 tabs 11/29/24 Allergies Allergy/AdvReac Type Severity Reaction Status Date / Time aspirin [ASA] Allergy Intermediate RASH Verified 11/29/24 05:15 azathioprine [From IMURAN] Allergy Intermediate PANCREATIC Verified 11/29/24 05:15 INFLAMMATION ibuprofen [IBUPROFEN] Allergy Intermediate TOLD NOT Verified 11/29/24 05:15 TO TAKE levofloxacin [From LEVAQUIN] Allergy Mild YEAST Verified 11/29/24 05:15 INFECTIONS Review of Systems Review of Systems Constitutional : No Weight loss, No Fever, No Chills, No Night Sweats, No Fatigue, No Malaise ENT/Mouth : No Hearing loss, No Ear Pain, No Nasal Congestion, No Sinus Pain, No Hoarseness, No sore throat, No Rhinorrhea, No Swallowing Difficulty Eyes: No Eye Pain, No Swelling, No Redness, No Foreign Body, No Discharge, No Vision Changes Cardiovascular : No Chest Pain, No SOB, No Dyspnea on Exertion, No Orthopnea, No Edema, No Palpitations Respiratory : No Cough, No Sputum, No Wheezing, No Smoke Exposure, No Dyspnea Gastrointestinal : No Nausea, No Vomiting, complaining of intermittent diarrhea, abdominal pain left lower quadrant, history of Crohn Genitourinary : no irregular bleeding, No Dysuria, No Urinary Frequency, No Hematuria, No Urinary Incontinence, No Urgency, No Flank Pain, No Urinary Flow Changes, No Hesitancy Musculoskeletal : No joint pain, No Myalgias, No Joint Swelling Skin : No Skin Lesions, No rash Neuro : No Weakness, No Numbness, No Paresthesias, No Loss of Consciousness, No Dizziness, No Headache Psych : No Anxiety/Panic, No Depression, No SI/HI/AH/VH, No Social Issues, Heme/Lymph: No Bruising, No Bleeding,No Lymphadenopathy Endocrine : No Polyuria, No Polydipsia, No Temperature Intolerance PMFSH Past Medical History Medical History Urge incontinence Stricture of colon Normocytic anemia Anxiety Sleep apnea Asthma GERD (gastroesophageal reflux disease) Pulmonary embolism Crohn's disease PTSD (post-traumatic stress disorder) Recurrent major depression-severe Crohn's colitis Hyperlipidemia Hemorrhagic cyst of ovary Kidney stones Depression Iron deficiency anemia Rheumatoid arthritis Migraine Cancer HTN (hypertension) Surgical History History of esophagogastroduodenoscopy (EGD) History of colon resection History of colon resection Hx of dilation and curettage Hx of cystoscopy Hx of cystoscopy Hx of colonoscopy (~10/2018) Hx of endoscopy Social History Social History Household Members: None Housing: Apartment Are you a primary doggy daycare activities director to a significant other at home: No Do you presently have visiting nurse or other home services: No Alcohol intake: never Patient Tobacco Use Status: Former Tobacco user Tobacco use type: Cigarette Cigarettes Per Day: 1 Years Smoked: 10 Smoked in Last 30 Days: No e-Cigarette/Vaping Use: Never Used Second Hand Smoke Exposure: No Substance Use Type: Marijuana Advance Directives: Yes Advance Directives on File: Yes Advance Directives Date on File: 09/17/21 Do you have a plan to hurt others: No Plan service: No Current occupational status: unemployed and disabled Sexual orientation: Straight/Heterosexual Physical Exam ED Vital Signs: Vital Signs - 24 hr 11/29/24 05:11 11/29/24 07:02 Temperature 98.2 F 98.4 F Pulse Rate 71 68 Respiratory Rate 12 18 Blood Pressure 153/81 H 166/89 H Pulse Oximetry 97 98 Oxygen Delivery Method Room Air Room Air BMI result Body Mass Index 27.1 Course Course Course Narrative: Patient receiving IV fluids, morphine sulfate, Zofran. All of patient's labs pending Given patient's past medical history, we will proceed with a CT scan. Medical Decision Making Medical Decision Making [facility] Narrative: My interpretation of labs: Patient's white blood cell count within normal limits. Hemoglobin hematocrit at baseline. My interpretation of chemistry: No significant abnormality. LFTs have a slight bump, otherwise LFTs at baseline, lipase within normal limits. Urinalysis within normal limits CT abd/pelvis: concerning for proctitis, no abcess pt was given p.o. prednisone I reviewed patient's records, less than a month ago patient had a colonoscopy: Patient known to have chronic inflammation in the sigmoid colon, chronic colitis, superficial ulcerations, moderate diverticulosis I discussed with the patient that given this new findings of proctitis, previously normal rectum endoscopy, we will treat with antibiotics, steroids. Patient instructed to have close follow-up with her primary care physician. Patient agrees with plan. Received IV fluids, morphine, Zofran, prednisone Patient's proctitis likely secondary to Crohn's disease, sexually transmitted diseases is not suspected Differential Diagnosis Differential Diagnoses: The differential diagnosis associated with the presentation includes (Crohn's flare, diverticulitis, SBO, constipation, functional abdominal pain) Admission/Observation Consideration of admission/observation: Escalation of care including admission/observation considered (Given patient's past medical history and presentation, observation considered) Lab Data MDM Lab Attestation statement: I reviewed the patient's lab results. 11/29/24 05:30 11/29/24 05:30 Labs: Lab Results 11/29/24 11/29/24 11/29/24 Range/Units 05:30 05:37 07:04 WBC 7.2 (4.8-10.8) X10*3/uL RBC 4.39 (4.20-5.50) X10*6/uL Hgb 11.2 L (12.0-16.0) g/dl Hct 34.2 L (37.0-47.0) % MCV 77.9 L (80.0-98.0) fL MCH 25.5 L (27.0-33.0) pg MCHC 32.7 (31.0-35.0) g/dl RDW 16.7 H (11.0-16.0) % Plt Count 234 (160-400) X10*3/uL MPV 12.1 (9.4-12.3) fL Immature Gran % (Auto) 0.3 (0.0-0.4) % Neut % (Auto) 51.7 (45-73) % Lymph % (Auto) 33.5 (20-40) % [place]ie % (Auto) 12.4 H (2-11) % Eos % (Auto) 1.5 (0-4) % Baso % (Auto) 0.6 (0-2) % Lymph # (Auto) 2.4 (1.2-4.9) X10*3/uL [place]ie # (Auto) 0.9 (0.1-1.2) X10*3/uL Eos # (Auto) 0.1 (0.0-0.4) X10*3/uL Baso # (Auto) 0.0 (0.0-0.2) X10*3/uL Abs Immat Gran (auto) 0.02 (0.00-0.03) X10*3/uL Absolute Neuts (auto) 3.7 (2.0-8.3) x10*3/uL Absolute Nucleated RBC 0.000 (0.0-0.012) X10*3/uL Nucleated RBC % (auto) 0.0 (0.0-0.2) /100WBC Sodium 137 (135-145) mmol/L Potassium 4.9 (3.3-5.1) mmol/L Chloride 110 H (96-108) mmol/L Carbon Dioxide 17 L (22-29) mmol/L Anion Gap 15 (12-20) BUN 15 (9-16) mg/dL Creatinine 0.77 (0.5-1.4) mg/dL Estim Creat Clear Calc 78.0 Estimated GFR > 60 Random Glucose 100 (60-115) mg/dL Calcium 8.7 (8.4-10.2) mg/dL Total Bilirubin 0.2 (0.0-1.0) mg/dL Direct Bilirubin < 0.2 (0.0-0.5) mg/dL AST 37 H (5-31) U/L ALT 12 (0-31) U/L Alkaline Phosphatase 76 (39-117) U/L C-Reactive Protein 0.84 H (< or = 0.50) mg/dL Total Protein 7.8 (6.5-8.0) g/dL Albumin 3.8 (3.5-5.0) g/dL Lipase 28 (8-78) U/L Urine Color Yellow Urine Appearance Clear Urine pH 5.5 (5.0-9.0) Ur Specific [place] 1.025 (1.005-1.025) Urine Protein Negative (Neg-Trace) mg/dL Urine Glucose (UA) Negative (Negative) mg/dL Urine Ketones Trace (Negative) mg/dL Urine Blood Small (1+) H (Negative) Urine Nitrite Negative (Negative) Ur Leukocyte Esterase Trace H (Negative) Urine RBC 0-2 (0-2) /HPF Urine WBC 0-5 (0-5) /HPF Ur Squamous Epith Cells 0-2 (0-2) /HPF Urine Bacteria None Seen (None Seen) Hyaline Casts 0-2 (0-2) /LPF Stool Occult Blood POSITIVE (NEGATIVE) Independent Interpretation I performed an independent interpretation of an: CT Scan Radiology Impression Discussion of test interpretation with radiology: I have reviewed the radiologist's reading. Radiologist Impression: CT abdomen: Lung bases are clear. No acute bony lesions. No focal hepatic lesions. Main portal vein is patent. Spleen, pancreas, gallbladder, and adrenal glands are unremarkable. Unchanged left renal calculus. No ureteral calculi identified. No hydronephrosis or perinephric stranding of either kidney. Small bowel loops are of normal caliber. Postsurgical change along the anterior abdominal wall with likely recurrent hernia along the right midabdomen with focal diastasis of the right rectus abdominis muscle measuring up to 15 mm. No obstructive phenomenon seen. No free fluid or free air. CT pelvis: Suture material seen at the rectosigmoid junction. Inflammatory stranding surrounding the rectum with rectal wall thickening hyperenhancement of the rectal mucosa. No perirectal fluid collection seen to suggest abscess. No obstructive phenomenon is identified. No free air. Moderate stool within the colon. IMPRESSION: 1. Proctitis. No perirectal abscess seen. 2. Postsurgical change along the anterior abdominal wall with likely recurrent hernia with diastasis of the mid aspect of the right rectus abdominis muscle. 3. No acute solid organ abnormality. Medications Administered Discontinued Medications Generic Name Dose Route Start Last Admin Trade Name Freq PRN Reason Stop Dose Admin Sodium Chloride 1,000 mls @ 999 mls/hr 11/29/24 06:20 11/29/24 06:59 Ns IVCONT 11/29/24 07:20 999 mls/hr .Q1H1M ONE Administration Iohexol 85 ml 11/29/24 06:42 11/29/24 06:43 Iohexol 350 Mg/Ml 100 Ml Infus..Btl IV 11/29/24 06:43 85 ml ONCE ONE Administration Morphine Sulfate 4 mg 11/29/24 06:20 11/29/24 06:59 Morphine Sulfate 4 Mg/Ml Cartridge IVPUSH 11/29/24 06:21 4 mg ONCE ONE Administration Protocol Ondansetron HCl 4 mg 11/29/24 06:20 11/29/24 06:59 Ondansetron Hcl 4 Mg/2 Ml Vial IVPUSH 11/29/24 06:21 4 mg ONCE ONE Administration Critical Care Time Critical Care Time Critical Care Time: Yes Total Critical Care Time: 45 Attestation: I have personally provided critical care time. Time includes review of lab data, radiology results, discussion with consultants, and monitoring for potential decompensation. Intervention performed as documented. Discharge Plan Discharge Clinical Impression: Abdominal pain, Acute proctitis Patient Disposition: Home, Self-Care Instructions: Proctitis (ED), Crohn Disease (ED), Abdominal Pain (ED) Additional Instructions: Please follow-up with your primary care physician tomorrow. If you have any worsening or new symptoms, please return to the emergency room or call 911 Prescriptions: New prednisone 10 mg tablet 10 mg PO DIRECTED Qty: 30 0RF Rx Instructions: day 1 and 2 = take 5 tablets. Day 3 and 4 take 4 tablets. Day 5 and 6 take 3 tablets, day 7 and 8 take 2 tables, day 9 and 10 take 1 tablet doxycycline hyclate 100 mg tablet 100 mg PO BID Qty: 14 0RF No Action vitamin B complex-folic acid [B Complex 1 (with folic acid)] 0.4 mg tablet 1 tab PO QAM Qty: 30 2RF folic acid 1 mg tablet 1 mg PO DAILY 60 Days Qty: 60 3RF Rx Instructions: Take 1 tablet daily oxybutynin chloride 15 mg tablet extended release 24hr 15 mg PO DAILY 30 Days Qty: 30 1RF methotrexate sodium 2.5 mg tablet 25 mg PO FR 90 Days Qty: 130 1RF multivitamin Tablet 1 tab PO QAM docusate sodium 100 mg capsule 1 cap PO BID PRN (Reason: Constipation) montelukast 10 mg tablet 1 tab PO BEDTIME risperidone 1 mg Tablet 1 mg PO BID Qty: 60 0RF albuterol sulfate [ProAir HFA] 90 mcg/actuation HFA aerosol inhaler 2 puff PO Q4H PRN (Reason: Shortness Of Breath) hydroxyzine HCl 25 mg tablet 1 tab PO BID PRN (Reason: Anxiety) lidocaine 4 % Adhesive Patch,Medicated 1 patch TOPICAL DAILY PRN (Reason: Breakthrough Pain) Eliquis 2.5 mg Tablet 2.5 mg PO BID Qty: 60 6RF budesonide-formoterol [Symbicort] 160-4.5 mcg/actuation HFA aerosol inhaler 2 puff PO BID famotidine [Pepcid] 20 mg tablet 20 mg PO BID PRN (Reason: abdominal discomfort) Qty: 60 0RF acetaminophen [Tylenol] 325 mg Tablet 650 mg PO Q4H PRN (Reason: Pain) melatonin 3 mg Tablet 3 mg PO BEDTIME PRN (Reason: Sleep) calcium carbonate 500 mg calcium (1,250 mg) Tablet,Chewable 500 mg PO BID carboxymethylcellulose sodium 1 % Drops, Liquid Gel 1 drp OPHTHALMIC (EYE) BID PRN (Reason: Dry Eye(S)) clonazepam 0.5 mg Tablet 0.5 mg PO BEDTIME PRN (Reason: Anxiety) Rx Instructions: administer 30 minutes before bedtime topiramate 100 mg tablet 100 mg PO BID lactulose 20 gram/30 mL Solution 20 g PO DAILY Qty: 900 2RF polyethylene glycol 3350 [Miralax] 17 gram/dose powder 17 g PO BID 30 Days Qty: 510 3RF prednisone 10 mg tablet 10 mg PO DIRECTED Qty: 60 0RF Rx Instructions: Day 1 through 5 take 6 pills then decrease by 1 pill every 2 days until you complete prescription ondansetron 4 mg tablet,disintegrating 4 mg PO Q6-8H PRN (Reason: nausea and vomiting) Qty: 14 0RF hydromorphone 4 mg tablet 4 mg PO Q6H PRN (Reason: severe pain (scale score 7-10)) Qty: 10 0RF Rx Instructions: Partial Fill upon patient request. gabapentin 100 mg capsule 100 mg PO BID paroxetine HCl 40 mg tablet 40 mg PO QAM zolpidem 5 mg tablet 5 mg PO BEDTIME PRN (Reason: insomnia) Print Language: Mohawk
[2024-11-29] MEDS: iohexoL 350 MG/ML 100 ML INFUS..BTL 85 ML IV (06:43)
[2024-11-29] MEDS: 0.9 % Sodium Chloride 1,000 ML 999 ML IVCONT (06:59)
[2024-11-29] MEDS: ondansetron HCL 4 MG/2 ML VIAL IVPUSH (06:59)
[2024-11-29] MEDS: Morphine Sulfate 4 MG/ML CARTRIDGE IVPUSH (06:59)
[2024-11-29 07:02] VITALS: BP 166/89; PULSE 68; RESP 18; TEMP 36.9; O2SAT 98
[2024-11-29 07:04] LABS: C Reactive Protein 0.84 mg/dL (< or = 0.50)
[2024-11-29 07:27] LABS: OBS Int Ctl Valid YES; OBS1 POSITIVE (NEGATIVE)
[2024-11-29 08:17] VITALS: BP 144/77; PULSE 60; RESP 16; TEMP 36.8; O2SAT 99
[2024-11-29] MEDS: predniSONE 10 MG TABLET 50 MG PO (08:18)
[2024-11-29 08:20] VITALS: BP 144/77; PULSE 60; RESP 16; TEMP 36.8; O2SAT 99
== END 2024-11-29 08:53 | disposition home or self-care (01) ==
PROVIDERS: Emergency Provider Emergency Medicine; PCP Internal Medicine
DX: K62.89 Other specified diseases of anus and rectum (principal); R10.2 Pelvic and perineal pain; R11.0 Nausea; R10.13 Epigastric pain; Z79.899 Other long term (current) drug therapy
CPT/HCPCS: 36415; 74177; 80048; 80076; 81001; 82272; 83690; 85025; 86140; 93005; 96361; 96374; 96375; 99284; 99285; J2270; J2405; Q9967

== ENCOUNTER → 2024-11-29 05:07 | Outpatient (BNV) | payer MEDICAID, SELFPAY | PROVIDERS: Emergency Provider Emergency Medicine; PCP Internal Medicine; Visit Provider Internal Medicine Cardiovascular Disease | DX: R10.9 Unspecified abdominal pain (principal) | CPT/HCPCS: 93010 ==

== ENCOUNTER → 2024-11-29 06:20 | Outpatient (BNV) | payer MEDICAID, SELFPAY | PROVIDERS: Emergency Provider Emergency Medicine; PCP Internal Medicine; Visit Provider Radiology Diagnostic Radiology | DX: K62.89 Other specified diseases of anus and rectum (principal) | CPT/HCPCS: 74177 ==

== ENCOUNTER 2024-12-16 11:24 | Outpatient (AMB) | payer MEDICAID, SELFPAY ==
--- NOTE | 2024-12-16 11:42 | MHC.OFFVIS ---
Vital Signs 12/16/24 11:43 Height 5 ft 3 in Weight 170 lb BMI 30.1 BP 94/64 Blood Pressure Location Lt brachial Position Sitting Pulse 82 Pulse Oximetry (%) 97 Oxygen Delivery Method Room Air Intake Visit Reasons: f/u Intake Note: Patient follow up for chronic constipation, UA, US and lab results. Patient cc: nauseas, abdominal pain with bloating, acid reflux, constipation, some choking sensation on and off. Table Tender Required: No Accompanied by: Self / Same As Patient Allergies aspirin (ASA) Allergy (Intermediate, Verified 03/16/25 04:02) RASH azathioprine (From IMURAN) Allergy (Intermediate, Verified 03/16/25 04:02) PANCREATIC INFLAMMATION ibuprofen (IBUPROFEN) Allergy (Intermediate, Verified 03/16/25 04:02) TOLD NOT TO TAKE levofloxacin (From LEVAQUIN) Allergy (Mild, Verified 03/16/25 04:02) YEAST INFECTIONS Medication List - Last Reconciled 12/16/24 by Libby Palafox MD acetaminophen (Tylenol) 650 mg PO Q4H PRN albuterol sulfate 90 mcg/actuation (ProAir HFA) 2 puffs PO Q4H PRN apixaban (Eliquis) 2.5 mg PO BID budesonide-formoterol 160-4.5 mcg/actuation (Symbicort) 2 puffs PO BID calcium carbonate 500 mg PO BID carboxymethylcellulose sodium 1% 1 drp ophthalmic (eye) BID PRN clonazepam 0.5 mg PO BEDTIME PRN docusate sodium 1 cap PO BID PRN doxycycline hyclate 100 mg PO BID famotidine (Pepcid) 20 mg PO BID PRN folic acid 1 mg PO DAILY 60 days gabapentin 100 mg PO BID hydromorphone 4 mg PO Q6H PRN hydroxyzine HCl 1 tab PO BID PRN lactulose 20 grams (30 mL) PO DAILY lidocaine 4% 1 patch topical DAILY PRN melatonin 3 mg PO BEDTIME PRN methotrexate sodium 25 mg (10 x 2.5 mg) PO FR 90 days montelukast 1 tab PO BEDTIME multivitamin 1 tab PO QAM ondansetron 4 mg PO Q6-8H PRN oxybutynin chloride ER 15 mg PO DAILY 30 days paroxetine HCl 40 mg PO QAM risperidone 1 mg PO BID tofacitinib (Xeljanz) 10 mg PO BID 30 days topiramate 100 mg PO BID vitamin B complex-folic acid 0.4 mg (B Complex 1 (with folic acid)) 1 tab PO QAM zolpidem 5 mg PO BEDTIME PRN HPI HPI f/u: Details: GI FU visit for this 54-year-old female for FU of Crohn's disease. Next Stelara infusion scheduled on 11/25/24 Pt is on chronic anticoagulation with Eliquis because of history of pulmonary embolism. CHRONIC ILLNESSES:?RA, GERD, asthma, sleep apnea, iron def anemia, anxiety and depression? ? ? TODAY'S VISIT:? Patient cc: nauseas, abdominal pain with bloating, acid reflux, constipation, some choking sensation on and off. Continues to have abdominal pain and mild constipation. Having upto 8 small formed BMs a day Finished Prednisone last week and requesting a refill Also patient is worry about a cancer dx class 1/nurse from OR asked her about the cancer ??? Patient wanted to see a damage appraiser. Pt feels very tired all the time for the past 2-3 weeks and feels worse this week EGD and colon results were reviewed with the patient Complains of constipation - has 15 or more BMs a day and stool is hard. Notes abdominal pain and cramps and has to go to the bathroom Abd pain is a little better 10 min after a BM. Has to go back to the bathroom again after 10-15 min PAST VISITS: Feeling better and denies abdominal pain, diarrhea or constipation Abdominal pain was likely due to abd wall seroma - now resolved Patient cc: [facility] abdominal discomfort, and she denies any other GI issues. Pt is accompanied by her daughter, Madelin who interpreted.? Notes improvement in abdominal pain. Feels everything is controlled right now?? Doing OK at present. Pt reports having a normal BM 2 or more times a day. Initially had diarrhea. Notes intermittent abd discomfort due to the seroma Scheduled to see surgery at [facility] Taking Miralax once a day and laculose once a day with good evacuation and denies feeling backed up. Appetite has improved after she took prednisone. Daughter is requesting referral to the Sustainability Coordinator to help with diet. Urgent FU appt scheduled after recent hospitalization from 02/10 to 02/12/24: Hospital course The patient was admitted for treatment of Acute obstipation and stercoral colitis related to opioid use as CT abdomen/pelvis consistent with constipation with a large amount of fecal material present in the colon rectum and fecal material with mildly obstructive effect. as she was manually disimpacted in ED and started on Miralax, Enema and Lactulose with good response as she moved her bowels overnight and repeated KUB showed interval resolution of the constipation. Seen by GI who recommended to increase Miralax and Start LActulose on discharge with a plan to follow as outpatient. The patient had SIRS with leukocytosis likely related to inflammation and chronic steroid use. Tachycardia r/t pain and anxiety. lactic acidosis from dehydration not due to sepsis. No signs of infection. To follow with GI as outpatient. Discharge plan Start Lactulose once daily Increase Miralax to twice daily follow with dr Palafox as outpatient ?? ? Patient cc: after hernia surgery she is been with a lot of abdominal pain on and off, today she is dizzy and her BP is low. Patient said everything is okay and no GI issues today Complains of mid abdominal/periumblical pain x last week Pain is intense 9/10 in intensity Seen in the ER at [facility] and prescribed oxycodone Does not eat when she has pain - does not feel like eating. Complains of constipation - has a BM every 1-2 days. Takes prune juice which helps. Takes docusate twice a day for constipation. Denies black stools or rectal bleeding. PAST VISITS: Had ileostomy reversal 2 months ago. Surgery went well. Has a BM 2-3 times a day, has constipation on some days and does not go on some days Feeling regular Has an appt with colorectal surgeon at [facility] on 10/24/22. Pt states, the surgeon will discuss reversal of colostomy. Last Stelara injection was on Sep 25, 2022 and next injection scheduled on 10/23/22. Pt denies abdominal pain and reports a good appetite Pt is accompanied by her daughter, Aissatou. EGD results were reviewed with the patient. Denies abdominal pain or rectal bleeding. Comes to short stay for her Stelara injection - last injection 01/31/22. Next injection scheduled on 02/28/22 at 9:30 am. Not taking MTX - prescription was stopped without anyone telling the pt - prescription renewed. Has been feeling better since discharge from the hospital 10 days ago - I have abdominal pain. Sometimes when I swallow the food gets stuck - symptoms associated with solid food. Its painful to swallow. Dysphagia episodes are frequent. Food goes down with water and is very painful. Has 6-7 BMs a day. On prednisone taper at 30 mg daily and will decrease to 20 mg daily in 2 days. IBD Summary: ? Year of diagnosis: Crohn's disease diagnosed in [address] scan. ? Disease Extent: Colon ? Past treatments: Azathioprine caused pancreatitis, ? She was initially treated with Remicade which did not work and she was switched to Humira. ? Treated with Entyvio for a few months which was stopped due to side effects. ? In 09/2016, she was treated with Stelara every 8 weeks which worked well for her. ? She has been treated with Prednisone intermittently. ? Previous Endoscopic Evaluations: 01/18/20 COLONOSCOPY SHOWED: One small hyperplastic rectal polyp removed. Patchy erythema throughout the colon - surveillance biopsies were obtained. Focal area of ulcerations with a tight stricture at 18 to 20 cms and unable to pass the colonoscope through the stricture. Stricture was dilated with a 12mm (26 F) CRE balloon and colonoscope was then advanced into the colon. Patchy erythema with focal ulcers in the distal rectum. Inflammation in the recto-sigmoid significantly improved from last year - biopsies were obtained for histology. EGD and colonoscopy on 08/20/2016. ? EGD showed diffuse whittish plaques in the esophagus and diffuse erythema of the mucosa in the cardia. ? Biopsies were obtained. ? Colonoscopy showed normal mucosa in the right colon and patchy erythema and erosions in the left colon. Diffuse erythema and erosions were seen involving most of the rectum. ? Past Surgeries: She underwent Colon surgery (? removal of sigmoid colon) with colostomy at [facility] in 2010. She had reversal of colostomy in Dec, 2011. She developed a peristomal hernia. Last seen at [facility] in 11/2020 and requesting an appointment. Increased MTX to 25 mg (10 tablets) from 5 or 6 tablets daily in?March LABS IN [facility]:04/28/20 Reviewed H&H of 11.2 and 36.7, CHEM PANEL AND LFTS. ? Improvement in LFTs with AST of 32 (decreased from 93) and ALT of 70 (decreased from 190) , alkaline phosphatase 97, FERRITIN 40 ? CRP 2.20 (increased from 0.71 on 03/24/20) ? 08/12 STOOL CALPROTECTIN WAS 714 (DECREASED FROM > 2000 IN 12/11) 01/11 T spot was negative. ? IMAGING STUDIES: 09/08/[address] SCAN SHOWED: Narrowing of the segment of the proximal sigmoid colon with wall enhancement and thickening is noted which is a chronic finding as seen on multiple previous CT scans; however, possibility of mild increased wall thickening and enhancement in the region cannot be completely excluded. Given the dilatation of the colon proximal to this level on current examination, possibility of at least partial obstruction related to the proximal sigmoid colon stricture is suspected. The findings are most probably related to patient's known inflammatory bowel disease; however, again possibility of neoplastic process here cannot be completely excluded. 03/[address] SCAN SHOWED:? There is a long segment of colitis from the mid transverse colon ? through the distal rectum sigmoid consistent with history of Crohn's ? disease. There has been progression of disease since prior exam of 12/16/2019. ENDOSCOPIC STUDIES:?09/28/21 EGD SHOWED: ESOPHAGUS: GE junction at 36 cms.? Focal esophagitis with a 1 cms ulcer at GEJ. No stricture or ring noted.? Scattered white exudates in the proximal and mid esophagus suggestive of esophageal candidiasis - biopsies obtained to check for Karo/EOE. STOMACH: Gastritis - biopsied to check for H Pylori Plan:? Start Fluconazole for esophageal candidiasis - likely source of dysphagia and odynophagia. Resume Eliquis tonight. 09/13/21 FLEXIBLE SIGMOIDOSCOPY SHOWED: Flexible Sigmoidoscopy Findings: Focal tight stricture from 15 to 18 cms with ulcerations. Stricture was dilated with a 10, 11 and 12 mm (36 F) CRE balloon x 60 sec at each level. Biopsies were obtained from the stricture and colon at 30 and 10 cms (proximal and distal to the stricture) Plan:? Resume full liquid diet tonight and advance diet as tolerated. OK to resume Eliquis in the am. Switch to PO prednisone at 40 mg in the am and taper by 10 mg every 5 days over 3 weeks. BIOPSIES SHOWED: A.? Colon, sigmoid at 30 cm, biopsy:? Focal chronic colitis without activity; negative for dysplasia and carcinoma. B.? Colon, sigmoid at 18 cm, stricture, biopsy:? Chronic colitis with mild to severe activity and active ulcer with granulation tissue, superficial fragments; negative for dysplasia and carcinoma. C.? Colon, sigmoid at 10 cm, biopsy:? Chronic colitis without activity; negative for dysplasia and carcinoma. Colonoscopy in 01/18/20 showed patchy erythema throughout the colon - surveillance biopsies were obtained. Focal area of ulcerations with a tight stricture at 18 to 20 cms and unable to pass the colonoscope through the stricture. Stricture was dilated with a 12mm (26 F) CRE balloon and colonoscope was then advanced into the colon. Patchy erythema with focal ulcers in the distal rectum. Inflammation in the recto-sigmoid significantly improved from last year - severe left sided colitis with minimal inflammation in the remaining colon. were negative for CMV PFSH Medical History (Updated 03/16/25 @ 14:42 by Maryan Anne MD) Crohn's colitis Urge incontinence Stricture of colon Normocytic anemia Anxiety Sleep apnea Asthma GERD (gastroesophageal reflux disease) Pulmonary embolism Crohn's disease PTSD (post-traumatic stress disorder) Recurrent major depression-severe Hyperlipidemia Hemorrhagic cyst of ovary Kidney stones Depression Iron deficiency anemia Rheumatoid arthritis Migraine Cancer HTN (hypertension) Surgical History History of esophagogastroduodenoscopy (EGD) History of colon resection History of colon resection Hx of dilation and curettage Hx of cystoscopy Hx of cystoscopy Hx of colonoscopy (~10/2018) Hx of endoscopy Social History Household Members: None Housing: Apartment Are you a primary long term care pharmacist to a significant other at home: No Do you presently have visiting nurse or other home services: Yes (S[employer]IOR [employer] 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) Alcohol intake: never Patient Tobacco Use Status: Former Tobacco user Tobacco use type: Cigarette Cigarettes Per Day: 1 Years Smoked: 10 e-Cigarette/Vaping Use: Former Use Second Hand Smoke Exposure: No Substance Use Type: Marijuana Advance Directives Date on File: 02/13/24 service: No Current occupational status: unemployed and disabled Sexual orientation: Straight/Heterosexual Physical Exam Vital Signs: Last Vital Signs Pulse 82 12/16/24 11:43 BP 94/64 12/16/24 11:43 Pulse Ox 97 12/16/24 11:43 Oxygen Delivery Method Room Air 12/16/24 11:43 BMI result Body Mass Index 30.1 Assessment & Plan Assessment & Plan (1) Crohn's disease: Code(s): K50.90 - Crohn's disease, unspecified, without complications Category: Medical (2) GERD (gastroesophageal reflux disease): Code(s): K21.9 - Gastro-esophageal reflux disease without esophagitis Category: Medical (3) Chronic constipation: Code(s): K59.09 - Other constipation Category: Medical Plan 54 year old Guinean-speaking (able to speak some Latvian) female with RA, GERD, asthma, sleep apnea, iron def anemia, intermittent compliance with follow up appointments, anxiety, depression with some memory loss with Crohn's disease involving the left colon (and suspected jejunal involvement). Pt was diagnosed with Crohn's colitis 23 yrs ago and is status post sigmoid colectomy with colostomy in 2010, reversal of colostomy in 2011. She has failed treatment with multiple medications in the past due to lack of efficacy or side effects including Remicade, Humira, Cimzia, Entyvio, azathioprine caused pancreatitis. She has been on Stelara every 8 weeks which had worked well for her in the past. Dose of Stelara was increased to every 4 weeks 2 years ago due to breakthrough symptoms and low trough levels. She has been treated with Prednisone intermittently for CD flares. Patient was seen at [facility] clinic for a 2nd opinion regarding treatment options and addition of methotrexate was advised. Patient was started on methotrexate 25 mg intramuscularly every week on 04/13/19 in the Oncology clinic. She was switched to p.o. methotrexate 50 mg once a week in Sep, 2019 - now taking 25 mg every week. She is also on budesonide 9 mg once daily. She continues to have intermittent flares requiring IV steroids. Pt was seen at [facility] on 05/03/20 and dose of MTX was increased to 25 mg PO (10 tab) every week from 5 or 6 tablets daily in March 2020. 09/13/21 Flexible sigmoidoscopy showed a?focal tight stricture from 15 to 18 cms with ulcerations. Stricture was dilated to 12 mm (36 F) with a CRE balloon. Biopsies obtained from the stricture showed chronic colitis with mild to severe activity and active ulcer with granulation tissue - negative for dysplasia and carcinoma? Biopsies obtained from 30 and 10 cms (proximal and distal to the stricture) showed focal chronic colitis without activity. 05/17/22 Pt had Robot assisted laparoscopic lysis of adhesions with resection of colorectal anastomosis and new colorectal anastomosis with loop ileostomy and left ureterolysis and mobilization of the splenic flexure by Dr Mcdonough, colorectal surgeon, [facility].? No dysplasia noted on histology. She has a FU appt to schedule ileostomy reversal after gastrograffin enema. 02/20/23 Pt will be scheduled for a surveillance colonoscopy - scheduled on 08/11/23. Advised to hold Eliquis for 3 days before colonoscopy appt (will obtain clearance from Dr Blake) Miralax once a day for constipation. Labs in March 2023. 05/29/23 mid abdominal/periumblical pain x last week Pain is intense 9/10 in intensity Seen in the ER at [facility] and prescribed oxycodone 02/20/24 Doing OK at present. Pt reports having a normal BM 2 or more times a day. Initially had diarrhea. Notes intermittent abd discomfort due to the seroma Scheduled to see surgery at [facility] Taking Miralax once a day and laculose once a day with good evacuation and denies feeling backed up. Appetite has improved after she took prednisone. Abdominal pain is likely related to seroma. Pt advised to check a fecal calprotectin to rule out active Crohn's disease Referral sent to the dietitian to discuss diet for Crohn's disease at request of patient and her daughter. 05/31/24 Feeling better and denies abdominal pain, diarrhea or constipation Abdominal pain was likely due to abd wall seroma - now resolved Advised to schedule an EGD (FU of esophagitis) and Colon (FU of Crohn's disease) 11/08/24 EGD AND COLONOSCOPY SHOWED: Endoscopy Findings: ESOPHAGUS: Normal STOMACH: Moderate gastric antral erythema DUODENUM: Normal Colonoscopy Findings: No polyps were detected Friable mucosa with patchy erythema and scattered aphthoid ulcers with active colitis from 0 to 30 cms and mild colitis in the rest of the colon - multiple biopsies were obtained. Moderate diverticulosis seen in the sigmoid colon Moderate hemorrhoids on retroflexed exam. Plan: Repeat Colonoscopy in 2 years for Crohn's disease surveillance. Pt reports compliance with Stelara injection, MTX and budesonide. She noted that she starts feeling bad 2 weeks after the Stelara injection. BIOPSIES SHOWED: A. Gastric antrum, biopsy: Gastric antral mucosa with minimal chronic gastritis with few focal neutrophils; no granuloma seen; negative for intestinal metaplasia and dysplasia. B. Colon, cecum, biopsy: Chronic colitis with mild activity and focal mucosal microgranulomas; negative for dysplasia. C. Colon, ascending, biopsy: Focal chronic colitis with minimal activity, mucosal microgranulomas, and granulomas in submucosal lymphoid aggregate; negative for dysplasia. D. Colon, transverse, biopsy: Focal chronic colitis with mild activity; no granulomas or dysplasia. E. Colon, sigmoid, biopsy: Focal chronic colitis with moderate activity and surface erosion; no granulomas or dysplasia. Comment: (A): Immunostain for H. pylori was negative. (C): AFB and GMS stains - negative Patient was placed on the colonoscopy recall list for repeat colon in 2 years 11/23/24 EGD and colon results were reviewed with the patient Complains of constipation - has 15 or more BMs a day and stool is hard. Notes abdominal pain and cramps and has to go to the bathroom Abd pain is a little better 10 min after a BM. Pt advised to increase lactulose to 30 ml twice daily and start Prednisone taper Xeljanz was added FU in 2 months ADDENDUM: On 01/13/25 @ 14:52 Natalie Rucker Wrote To Natalie Rucker patient spoke w/ Leesa, was confused re: new med Xeljanz - I called and for some reason [facility] was getting a rejection due to needing PA - I called the insurance company and they informed me that it is due to a hold because of a drug interaction as below. I informed them that is aware and they released the hold. I called pharmacy, they informed me they will order it for tomorrow. I called patient and she was confused re: medications. I reviewed the Prednisone instructions with her as well as the Xeljanz. patient verbalized understanding Medications: New prednisone Take 4 tablets daily for a week Take 3 tablets daily for a week Take 2 tablets daily for a week Take 1 tablets daily for a week 10 mg PO DAILY 70 tabs 0RF 4 weeks Changed From lactulose 20 grams (30 mL) PO DAILY 900 mL 2RF To lactulose 20 grams (30 mL) PO BID 1,800 mL 2RF Coding Level of Care Code Est Pt Level 4 (81645) Diagnoses Crohn's disease K50.90 GERD (gastroesophageal reflux disease) K21.9 Chronic constipation K59.09 Time Spent (min) 20
[2024-12-16 11:43] VITALS: BP 94/64; PULSE 82; O2SAT 97; BMI 30.1
--- OUTSIDE RECORDS SUMMARY | 2024-12-16 13:39 | XMS_ITS | Encounter Summary ---
Author Organization [employer] Address [address] [place] [address] Care Team Providers Care Nuclear Officer Name Role Phone Leesa Rapp MD Primary Care Provide r Reason for Visit * Reason Comments Med Refill Encounter Details Date Type Department Care Team (Late st Contact Info) Description 01/31/2023 Refill [facility] [address] [place] [address] Christy Stockton DO [address] [place], [place] [phone] Anxiety Social History Tobacco Use Types Packs/Day [...] Department Care Team (Late Contact Info) Description 02/11/2025 9:00 AM EDT Office Visit [facility] [address] [place], [place] [phone] Ernestina Ayon MD [address] [place], [place] [phone] 02/16/2025 9:15 AM EDT Office Visit [facility] [address] [place] [address] Leesa Rapp MD [address] [place] [phone] documented as of this encounter Visit Diagnoses Diagnosis Anxiety Anxiety state, unspecified documented in this encounter Care Teams Nuclear Officer Relationship Specialty Start Date End Date Leesa Rapp MD [address] [place] [phone] PCP - General Family Medicine 10/15/19 documented as of this encounter
--- OUTSIDE RECORDS SUMMARY | 2024-12-16 13:39 | XMS_ITS | Encounter Summary ---
Author Organization [employer] Address [address] [place] [address] Care Team Providers Care Artificial Cherry Maker Name Role Phone Leesa Rapp MD Primary Care Provide r Encounter Details Date Type Department Care Team ([facility] Contact Info) Description 11/28/2022 Abstract [facility] [address] [place] [phone] Leesa Rapp MD [address] [place] [address] Social History Tobacco Use Types Packs/Day Years [...] Upcoming Encounters Date Type Department Care Team ([facility] Contact Info) Description 02/11/2025 9:00 AM EDT Office Visit [facility] [address] [place] [phone] Ernestina Ayon MD [address] [place] [phone] 02/16/2025 9:15 AM EDT Office Visit [facility] [address] [facility] [place], [place] [phone] Leesa Rapp MD [address] [place] [address] documented as of this encounter Visit Diagnoses Not on filedocumented in this encounter Care Teams Artificial Cherry Maker Relationship Specialty Start Date End [place] [address] PCP - General Family Medicine 10/15/19 documented as of this encounter
--- OUTSIDE RECORDS SUMMARY | 2024-12-16 13:39 | XMS_ITS | Encounter Summary ---
Author Organization [employer] Address [address] [facility] 7t [place] [address] Care Team Providers Care Terrazzo Installer Name Role Phone Leesa Rapp MD Primary Care Provide r Encounter Details Date Type Department Care Team (Late Contact Info) Description 10/30/2022 Orders Only [facility] & PEDS [address] [place], [place] [phone] Christy Kaye LPN Social History Tobacco Use [...] Encounters Date Type Department Care Team ([facility] Contact Info) Description 02/11/2025 9:00 AM EDT Office Visit [facility] MEDICINE [address] [place], [place] [phone] Ernestina Ayon MD [address] [place], [place] [phone] 02/16/2025 9:15 AM EDT Office Visit [facility] MEDICINE [address] [place] [address] Leesa Rapp MD [address] [place] [address] documented as of this encounter Visit Diagnoses Not on filedocumented in this encounter Care Teams Terrazzo Installer Relationship Specialty Start Date End Date Leesa Rapp MD [address] [place] [phone] PCP - General Family Medicine 10/15/19 documented as of this encounter
--- OUTSIDE RECORDS SUMMARY | 2024-12-16 13:40 | XMS_ITS | Encounter Summary ---
Author Organization [employer] Address 75 [facility] 7t [place] [address] Care Team Providers Care Photography Teacher Name Role Phone Leesa Rapp MD Primary Care Provide r Reason for Visit * Reason Comments Med Refill Encounter Details Date Type Department Care Team ([facility] st Contact Info) Description 12/01/2024 Refill [facility] MED & PEDS [address] [place], [place] [phone] Leesa Rapp MD [address] [place] [address] Anxiety Social History Tobacco Use Types Packs/Day [...] Care Team (Late st Contact Info) Description 02/11/2025 9:00 AM EDT Office Visit [facility] MEDICINE [address] [place] [phone] Ernestina Ayon MD [address] [place] [phone] 02/16/2025 9:15 AM EDT Office Visit [address] [address] Leesa Rapp MD [address] [place] [address] [phone] documented as of this encounter Visit Diagnoses Diagnosis Anxiety Anxiety state, unspecified documented in this encounter Additional Health Concerns Assessment Noted Time PHQ-9 Depression Total Score: 0 02/20/20 24 1:02 PM EDT documented as of this encounter Care Teams Photography Teacher Relationship Specialty Start Date End Date Leesa Rapp MD [address] [place] [phone] PCP - General Family Medicine 10/15/19 documented as of this encounter
--- OUTSIDE RECORDS SUMMARY | 2024-12-16 13:40 | XMS_ITS | Clinical Summary ---
Author Organization [facility] ity Address [address] [place] [address] Care Team Providers Care Hide Spreader Name Role Phone Macy Washburn NP Primary Care Provider [phone] Social History Tobacco Use Types Packs/Day Years [...] Vaccine ( - 2023-2 5 season) 2024 Colorectal Cancer Screening: Colonoscopy 06/19/2024 Depression Screening 06/19/2024 HIV Screening 06/19/2024 Hepatitis C Screening 06/19/2024 Social Influencers of Health Screening 06/19/2024 Influenza Vaccine (Season Ended) 2025 HIB Vaccines Aged Out No longer eligi [...] age to complete this topic Meningococcal B Vaccine Aged Out No l onger eligible based on patient's age to complete [...] age to complete this topic Care Teams Hide Spreader Relationship Specialty Start Date End Date Macy Washburn NP [address] [place] [phone] PCP - General 03/12/05
--- OUTSIDE RECORDS SUMMARY | 2024-12-16 13:40 | XMS_ITS | Encounter Summary ---
Author Organization [employer] Address 75 [facility] 7t [place] [address] Care Team Providers Care Wood Grainer Name Role Phone Leesa Rapp MD Primary Care Provide r Reason for Visit * Reason Comments Med Refill Encounter Details Date Type Department Care Team ([facility] st Contact Info) Description 12/10/2024 Refill [facility] MED & PEDS [address] [place], [place] [phone] Leesa Rapp MD 230 [place] [address] Anxiety Social History Tobacco Use Types Packs/Day [...] Description 02/11/2025 9:00 AM EDT Office Visit [facility] MEDICINE [address] [place] [phone] Ernestina Ayon MD [address] [place] [phone] 02/16/2025 9:15 AM EDT Office Visit [address] [address] Leesa Rapp MD [address] [place] [address] [phone] documented as of this encounter Visit Diagnoses Diagnosis Anxiety Anxiety state, unspecified documented in this encounter Additional Health Concerns Assessment Noted Time PHQ-9 Depression Total Score: 0 02/20/20 24 1:02 PM EDT documented as of this encounter Care Teams Wood Grainer Relationship Specialty Start Date End Date Leesa Rapp MD [address] [place] [phone] PCP - General Family Medicine 10/15/19 documented as of this encounter
--- OUTSIDE RECORDS SUMMARY | 2024-12-16 13:40 | XMS_ITS | Encounter Summary ---
Author Organization [employer] Address 75 [facility] 7t [place] [address] Care Team Providers Care Zigzag Topstitcher Name Role Phone Leesa Rapp MD Primary Care Provide r Reason for Visit * Reason Comments Med Refill Encounter Details Date Type Department Care Team ([facility] st Contact Info) Description 09/03/2023 Refill [facility] 230 [place], [place] [phone] Rohini Meade MD 230 [place], [place] [phone] Chronic nonintractable headache, unspecified headache type Social [...] Description 02/11/2025 9:00 AM EDT Office Visit [facility] [address] [place] [phone] Ernestina Ayon MD [address] [place] [phone] 02/16/2025 9:15 AM EDT Office Visit [facility] [address] [place] [phone] Leesa Rapp MD [address] [place] [address] [phone] documented as of this encounter Visit Diagnoses Diagnosis Chronic nonintractable headache, unspecified headache type documented in this encounter Care Teams Zigzag Topstitcher Relationship Specialty Start Date End Date Leesa Rapp MD [address] [place] [phone] PCP - General Family Medicine 10/15/19 documented as of this encounter
--- OUTSIDE RECORDS SUMMARY | 2024-12-16 13:40 | XMS_ITS | Encounter Summary ---
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 Social History Tobacco Use Types [...] Description 02/11/2025 9:00 AM EDT Office Visit [facility] MEDICINE [address] [place], [place] [phone] Ernestina Ayon MD [address] [place], [place] [phone] 02/16/2025 9:15 AM EDT Office Visit [facility] MEDICINE [address] [place] [address] Leesa Rapp MD [address] [place] [phone] documented as of this encounter Visit Diagnoses Diagnosis 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
--- OUTSIDE RECORDS SUMMARY | 2024-12-16 13:40 | XMS_ITS | Encounter Summary ---
Author Organization [employer] Address 75 [facility] 7t [place] [address] Care Team Providers Care Parks And Recreation Worker Name Role Phone Leesa Rapp MD Primary Care Provide r Reason for Visit * Reason Comments Med Refill Encounter Details Date Type Department Care Team ([facility] st Contact Info) Description 05/09/2024 Refill [facility] MEDICINE [address] [place], [place] [phone] Leesa Rapp MD 230 [place], [place] [phone] Vitamin D deficiency; Healthcare maintenance; Anxiety Social [...] Description 02/11/2025 9:00 AM EDT Office Visit [facility] MED[facility] [address] [place] [phone] Ernestina Ayon MD [address] [place] [phone] 02/16/2025 9:15 AM EDT Office Visit [facility] [address] [place] [phone] Leesa Rapp MD [address] [place] [phone] documented as of this encounter Visit Diagnoses Diagnosis Vitamin D deficiency Healthcare maintenance Anxiety Anxiety state, unspecified documented in this encounter Additional Health Concerns Assessment Noted Time PHQ-9 Depression Total Score: 0 02/20/20 24 1:02 PM EDT documented as of this encounter Care Teams Parks And Recreation Worker Relationship Specialty Start Date End Date Leesa Rapp MD [address] [place] [phone] PCP - General Family Medicine 10/15/19 documented as of this encounter
--- OUTSIDE RECORDS SUMMARY | 2024-12-16 13:40 | XMS_ITS | Encounter Summary ---
Author Organization [employer] Address 75 [facility] 7t [place] [address] Care Team Providers Care Religious Ritual Slaughterer Name Role Phone Leesa Rapp MD Primary Care Provide r Reason for Visit * Reason Comments Med Refill Encounter Details Date Type Department Care Team ([facility] st Contact Info) Description 04/29/2024 Refill [facility] MEDICINE 230 [place], [place] [phone] Leesa aRpp MD 230 [place], [place] [phone] Anxiety Social History Tobacco Use Types Packs/Day [...] Description 02/11/2025 9:00 AM EDT Office Visit [facility] [address] [place] [phone] Ernestina Ayon MD [address] [place] [phone] 02/16/2025 9:15 AM EDT Office Visit [address] [address] Leesa Rapp MD [address] [place] [phone] documented as of this encounter Visit Diagnoses Diagnosis Anxiety Anxiety state, unspecified documented in this encounter Additional Health Concerns Assessment Noted Time PHQ-9 Depression Total Score: 0 02/20/20 24 1:02 PM EDT documented as of this encounter Care Teams Religious Ritual Slaughterer Relationship Specialty Start Date End Date Leesa Rapp MD [address] [place] [phone] PCP - General Family Medicine 10/15/19 documented as of this encounter
--- OUTSIDE RECORDS SUMMARY | 2024-12-16 13:40 | XMS_ITS | Encounter Summary ---
Author Organization [employer] Address [address] [place] [address] 7[address] [place] [address] Care Team Providers Care Line Rider Name Role Phone Leesa Rapp MD Primary Care Provide r Encounter Details Date Type Department Care Team (Late st Contact Info) Description 09/04/2022 Orders Only [facility] MEDICINE [address] [place] [phone] Alayna Delcid LPN Social History Tobacco Use [...] 9:00 AM EDT Office Visit [facility] MED[facility]INE [address] [place] [phone] Ernestina Ayon MD [address] [place] [phone] 02/16/2025 9:15 AM EDT Office Visit [facility] MED[facility]INE [address] [place] [phone] Leesa Rapp MD [address] [place] [phone] documented as of this encounter Visit Diagnoses Not on filedocumented in this encounter Care Teams Line Rider Relationship Specialty Start Date End Date Leesa Rapp MD [address] [place] [address] PCP - General Family Medicine 10/15/19 documented as of this encounter
--- OUTSIDE RECORDS SUMMARY | 2024-12-16 13:40 | XMS_ITS | Clinical Summary ---
Author Organization [employer] Address [address] [place] [address] Care Team Providers Care Senior Developer Name Role Phone Leesa Rapp MD Primary [...] for anxiety. 30 tablet 1 025 Active hydrOXYzine HCl (Atarax) 25 MG [...] to 7 days. 21 tablet 025 2024 ondansetron (Zofran) 4 MG tabletIndications: Nausea Take 2 tablets (8 mg) by mouth every 8 (eight) hours if needed for nausea or vomiting for up to 7 days. 30 tablet 025 2024 oxyCODONE (Roxicodone) 5 MG immediate release tabletIndications: Crohn's disease of rectum with complication (CMS/HCC) Take 1 tablet (5 mg) by mouth every 8 (eight) hours if needed for severe pain for up to 5 days. 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 C/w same interventions [...] (04/27/2023 7:32 AM EDT): 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 She asks about pain mgmt, but the majority of her pain is intra-abdominal I think pain mgmt would have little to offer her, and that focus should be on her her Crohn's activity Vitamin D deficiency 05/29/2015 Resolved Problems Problem Noted Date Diagnosed Date Resolved Date Pulmonary embolism 11/15/2022 3 Encounters Date Type Department Care Team Description 12/10/2024 Refill [facility] [address], [place] [phone] Leesa Rapp MD Anxiety 12/08/2024 2:00 PM EDT Office Visit [facility] [address] [place] [address] Leesa Rapp MD Crohn's disease of rectum with complication ([facility]) (Primary Dx); Nausea 12/08/2024 Travel 12/01/2024 Telephone [facility] [address] [place] [address] Leesa Rapp MD Chart Prep 12/01/2024 Refill [facility] [address], [place] [phone] Leesa Rapp MD Anxiety 11/30/2024 Telephone [facility] [address] [place] [address] Leesa Rapp MD Results 11/29/2024 Refill [facility] [address] [place] [address] Leesa Rapp MD Crohn's disease with complication, unspecified gastrointestinal tract location ([facility]/HCC) 11/29/2024 Orders Only GENERIC EXTERNAL DATA DEPARTMENT Provider, Generic External Data 11/24/2024 Population Health Risk Score [facility] (C3) Department [address] [place] [phone] Provider, Population Health Generic 11/23/2024 Orders Only GENERIC EXTERNAL DATA DEPARTMENT Provider, Generic External Data 11/17/2024 10:15 AM EDT Office Visit [facility] [address] [place] [address] Leesa Rapp MD Essential hypertension (Primary Dx); Crohn's disease with complication, unspecified gastrointestinal tract location (CMS/HCC); Mixed anxiety and depressive disorder; Mood disorder (CMS/HCC); Encounter for screening mammogram for malignant neoplasm of breast 11/17/2024 Travel 11/08/2024 Orders Only GENERIC EXTERNAL DATA DEPARTMENT Provider, Generic External Data 11/08/2024 Patient Outreach [facility] [address] [place] [address] Leesa Rapp MD Pre-visit Planning (SDOH screening negative and tobacco screening positive) 11/08/2024 Refill [facility] [address] [place] [address] Vee Harris MD Moderate persistent asthma without complication 11/07/2024 Refill [facility] [address] [place] [address] Jody Gloria FNP Healthcare maintenance 11/07/2024 Refill [facility] [address] [place] [address] Vee Harris MD Depression with anxiety; Moderate persistent asthma without complication; Healthcare maintenance; Chronic nonintractable headache, unspecified headache type 11/07/2024 Refill [facility] [address] [place] [address] Leesa Rapp MD Chronic nonintractable headache, unspecified headache type 11/01/2024 Refill [facility] [address] [place] [address] Jody Gloria FNP Vitamin D deficiency 10/29/2024 4:00 PM EST Office Visit [facility] [address] [place] [address] Ernestina Ayon MD Melasma (Primary Dx); Tinea versicolor 10/29/2024 Travel 10/14/2024 Telephone [facility] [address] [place] [address] Leesa Rapp MD Colorectal Screening 09/26/2024 Refill [facility] [address] [place] [address] Leesa Rapp MD Depression with anxiety; Moderate persistent asthma without complication from Last 3 Months Immunizations Name Administration [...] Sign Reading Time Taken Comments Blood Pressure 131/74 12/08/2024 2:02 PM EDT Pulse 60 12/08/2024 2:02 PM EDT Temperature 36.4 ??C (97.5 ??F) 12/08/2024 2:02 PM ED T Respiratory Rate 20 12/08/2024 2:02 PM EDT Oxygen Saturation 98% 12/08/2024 2:02 PM EDT Inhaled Oxygen Concentration - - Weight 79.4 kg (175 lb) 12/08/2024 2:02 PM EDT Height 157.5 cm (5' 2 ) 12/08/2024 2:02 PM EDT Body Mass Index 32.01 12/08/2024 2:02 PM EDT Plan of Treatment Upcoming Encounters Date Type Department Care Team (Late st Contact Info) Description 02/11/2025 9:00 AM EDT Office Visit [facility] [address] [place] [address] Ernestina Ayon MD [address] [place] [address] 02/16/2025 9:15 AM EDT Office Visit [facility] [address] [facility] [place] [phone] Leesa Rapp MD [address] [facility] [place] [phone] Health Maintenance Due Date Last Done Comments CT Colonography 1970 Colonoscopy 1970 FIT DNA/Cologuard 1970 FIT 1970 HIV Screening 1970 Sigmoidoscopy 1970 Hepatitis C Screening 1988 Colorectal Cancer Screening 12/15/2020 FOBT 12/15/2020 12/16/2019, 11/30/2019 DTaP/Tdap/Td Vaccines (2 - Td or Tdap) 01/10/2021 01/10/2011, 09/22/2002 Zoster Vaccines (2 of 2) 12/19/2021 10/24/2021 Mammogram 03/13/2024 03/13/2023, 11/23, 12/16/2018 COVID-19 Vaccine ( - season) 2024 Depression Screening 02/19/2025 02/20/2024, 02/20/20 Alcohol/Substance Use Screening 05/19/2025 05/19/2024 SDOH Screening 11/08/2025 11/08/2024 Tobacco Screening 12/08/2025 12/08/2024 Cervical Cancer Screening 07/03/2028 HPV/Cotest 07/03/2028 07/03/2023 [...] Procedure Name Priority Date/Time Associated Diagnosis Comments CT ABDOMEN PELVIS W CONTRAST Routine 11/29/2024 7:25 AM EDT OBSX1 Routine 11/29/2024 7:04 AM EDT URINALYSIS, COMPLETE, WITH REFLEX TO CULTURE Routine 11/29/2024 5:37 AM EDT C-REACTIVE PROTEIN Routine 11/29/2024 5: 30 AM EDT LIPASE Routine 11/29/2024 5:30 AM EDT BASIC METABOLIC PANEL Routine 11/29/2024 5:30 AM EDT HEPATIC FUNCTION PANEL Routine 11/29/2024 5:30 AM EDT CBC WITH AUTO DIFFERENTIAL Routine 11/29/2024 5:30 AM EDT T-SPOT(R).TB Routine 11/23/2024 11:39 AM EDT FERRITIN Routine 11/23/2024 11:39 AM EDT C-REACTIVE PROTEIN Routine 11/23/2024 11 :39 AM EDT CBC WITH AUTO DIFFERENTIAL Routine 11/23/2024 11:39 AM EDT HEMATOXYLIN AND EOSIN STAIN Routine 11/08/2024 8:52 AM EDT GOMORI METHENAMINE STAIN Routine 11/08/2024 8:52 AM EDT LIPID PANEL WITH REFLEX TO DIRECT LDL [...] Recently Relevant to Health Maintenance Results * CT Abdomen Pelvis w/ Contrast (11/29/2024 7:25 AM EDT) Anatomical Region Laterality Modality Body, Pelvis, Abdomen Computed T omography 11/29/2024 7:25 AM EDT Narrative 11/29/2024 7:27 AM EDT ? [facility] ?[address] ?[place] [address] ? CT Scan Report ? Signed ? Patient: Eric,Bonnie ?MR#: [id number] ?? [id number] ? : 1970 ?Acct:[id number] ? Age/Sex: 54 / F ?ADM Date: 04/07/25 ? Loc: HO.ED ? Attending Dr: ? Ordering Physician: Qi Pace MD ?? Date of Service: 11/29/24 ?? Procedure(s): CT abdomen pelvis w IV con ?? Accession Number(s): [id number] ? cc: Leesa Rapp MD; Qi Pace MD ? Report Number: ?? [id number]: Total DLP = ??598.00 mGy-cm ? CLINICAL HISTORY: LLQ pain, hx crohns ? CT abdomen and pelvis with contrast ? Comparison: CT/SR - CT ABDOMEN PELVIS W IV CON - 09/10/24 00:41 EST ? Findings: ? CT abdomen: ? Lung bases are clear. ?? No acute bony lesions. ?? No focal hepatic lesions. Main portal vein is patent. ?? Spleen, pancreas, gallbladder, and adrenal glands are unremarkable. ?? Unchanged left renal calculus. No ureteral calculi identified. No ?? hydronephrosis or perinephric stranding of either kidney. ?? Small bowel loops are of normal caliber. ?? Postsurgical change along the anterior abdominal wall with likely ?? recurrent hernia along the right midabdomen with focal diastasis of the ?? right rectus abdominis muscle measuring up to 15 mm. No obstructive ?? phenomenon seen. ?? No free fluid or free air. ? CT pelvis: ? Suture material seen at the rectosigmoid junction. Inflammatory stranding ?? surrounding the rectum with rectal wall thickening hyperenhancement of the ?? rectal mucosa. No perirectal fluid collection seen to suggest abscess. No ?? obstructive phenomenon is identified. No free air. ?? Moderate stool within the colon. ? IMPRESSION: ?? 1. Proctitis. No perirectal abscess seen. ?? 2. Postsurgical change along the anterior abdominal wall with likely ?? recurrent hernia with diastasis of the mid aspect of the right rectus ?? abdominis muscle. ?? 3. No acute solid organ abnormality. ? This document has been electronically signed by: Alberto Feng MD on ?? 11/29/2024 07:25:27 ? Dictated By: ?Alberto Feng MD ? Signed By: ?<Electronically signed by Alberto Feng MD in OV> ? 11/29/24725 ? DD/ 4 ? TD/TT: 11/29/24724 ? Semiconductor Equipment Technician: ? Procedure Note Darion Araujo - 11/29/[address] [address] [address] Scan Report Signed Patient: Leesa Reyes [facility]#: [id number] : 1970Acct:[id number] Age/Sex: 54 / FADM Date: 11/29/24 Loc: HO.ED Attending Dr: Ordering Physician: Qi Pace MD Date of Service: 11/29/24 Procedure(s): CT abdomen pelvis w IV con Accession Number(s): [id number] cc: Leesa Rapp MD; Qi Pace MD Report Number: [id number]: Total DLP = 598.00 mGy-cm CLINICAL HISTORY: LLQ pain, hx crohns CT abdomen and pelvis with contrast Comparison: CT/SR - CT ABDOMEN PELVIS W IV CON - 09/10/24 00:41 EST Findings: CT abdomen: Lung bases are clear. No acute bony lesions. No focal hepatic lesions. Main portal vein is patent. Spleen, pancreas, gallbladder, and adrenal glands are unremarkable. Unchanged left renal calculus. No ureteral calculi identified. No hydronephrosis or perinephric stranding of either kidney. Small bowel loops are of normal caliber. Postsurgical change along the anterior abdominal wall with likely recurrent hernia along the right midabdomen with focal diastasis of the right rectus abdominis muscle measuring up to 15 mm. No obstructive phenomenon seen. No free fluid or free air. CT pelvis: Suture material seen at the rectosigmoid junction. Inflammatory stranding surrounding the rectum with rectal wall thickening hyperenhancement of the rectal mucosa. No perirectal fluid collection seen to suggest abscess. No obstructive phenomenon is identified. No free air. Moderate stool within the colon. IMPRESSION: 1. Proctitis. No perirectal abscess seen. 2. Postsurgical change along the anterior abdominal wall with likely recurrent hernia with diastasis of the mid aspect of the right rectus abdominis muscle. 3. No acute solid organ abnormality. This document has been electronically signed by: Alberto Feng MD on 11/29/2024 07:25:27 Dictated By: Alberto Feng MD Signed By: <Electronically signed by Alberto Feng MD in OV> 11/29/24725 DD/ 4 TD/TT: 11/29/24724 Semiconductor Equipment Technician: [facility] External Provider IM CT PROCEDURES Final Result * OBSX1 (11/29/2024 7:04 AM EDT) OBS1 POSITIVE NEGATIVE [facility] 11/29/2024 7:04 AM EDT 11/29/2024 7:24 AM EDT us Generic External Data Provider LAB BLOOD ORDERAB LES Final Result [facility] [address] [place] [address] [phone] * (ABNORMAL) Urinalysis, Complete, with Reflex to Culture (11/29/2024 5:37 AM EDT) Color Urine Yellow [facility] Appearance Urine Clear [facility] PH 5.5 5.0 - 9.0 [facility] Glucose Urine UA Negative Negative mg/dL [facility] Urine Blood Small (1+)(A) Negative [facility] Specific Randall - Urine 1.025 1.005 - 1.025 [facility] Urine Protein Negative Neg-Trace mg/dL [facility] Urine Ketones Trace Negative mg/dL [facility] Nitrite Urine Negative Negative [facility] Leukocyte Esterase Urine Trace(A) Negative [facility] RBC Urine 0-2 0 - 2 /HPF [facility] Urine WBC 0-5 0 - 5 /HPF [facility] Urine Squamous Epithelial Cell 0-2 0 - 2 /HPF [facility] Urine Bacteria None Seen None Seen [facility] Hyaline Casts, Urine 0-2 0 - 2 /LPF [facility] 11/29/2024 5:37 AM EDT 11/29/2024 5:40 AM EDT Narrative [facility] - 11/29/2024 5:59 AM EDT Urine, Clean Catch us Generic External Data Provider LAB URINE ORDERAB LES Final Result [facility] [address] [place] [address] [phone] * (ABNORMAL) CBC auto differential (11/29/2024 5:30 AM EDT) Only the most recent of2 resultswithin the time period is included. White Blood Count 7.2 4.8 - 10.8 X10*3/uL [facility] Red Blood Count 4.39 4.20 - 5.50 X10*6/uL [facility] Hemoglobin 11.2(L) 12.0 - 16.0 g/dl [facility] Hematocrit 34.2(L) 37.0 - 47.0 % [facility] Mean Corpuscular Volume 77.9(L) 80.0 - 98.0 fL [facility] Mean Corpuscular Hemoglobin 25.5(L) 27.0 - 33.0 pg [facility] Mean Corpuscular HGB Conc 32.7 31.0 - 35.0 g/dl [facility] Red Cell Distribution Width 16.7(H) 11.0 - 16.0 % [facility] Platelet Count 234 160 - 400 X10*3/uL [facility] Mean Platelet Volume 12.1 9.4 - 12.3 fL [facility] Neutrophils Percent Auto 51.7 45 - 73 % [facility] Imm Gran Pct Auto 0.3 0.0 - 0.4 % [facility] Lymphocytes Percent Auto 33.5 20 - 40 % [facility] Monocytes Percent Auto 12.4(H) 2 - 11 % [facility] Eosinophils Percent Auto 1.5 0 - 4 % [facility] Basophils Percent Auto 0.6 0 - 2 % [facility] NRBC Pct Auto 0.0 0.0 - 0.2 /100WBC [facility] Neutrophils Absolute Auto 3.7 2.0 - 8.3 x10*3/uL [facility] Imm Gran Abs Auto 0.02 0.00 - 0.03 X10*3/uL [facility] Lymphocytes Absolute Auto 2.4 1.2 - 4.9 X10*3/uL [facility] Monocytes Absolute Auto 0.9 0.1 - 1.2 X10*3/uL [facility] Eosinophils Absolute Auto 0.1 0.0 - 0.4 X10*3/uL [facility] Basophils Absolute Auto 0.0 0.0 - 0.2 X10*3/uL [facility] NRBC Abs Auto 0.000 0.0 - 0.012 X10*3/uL [facility] 11/29/2024 5:30 AM EDT 11/29/2024 5:33 AM EDT us Generic External Data Provider LAB BLOOD ORDERAB LES Final Result Performing Organization Address [facility] Co de Phone Number [facility] [address] [place] [phone] * (ABNORMAL) C-reactive Protein (11/29/2024 5:30 AM EDT) Only the most recent of2 resultswithin the time period is included. C Reactive Protein 0.84(H) < or = 0.50 mg/dL [facility] 11/29/2024 5:30 AM EDT 11/29/2024 5:33 AM EDT us Generic External Data Provider LAB BLOOD ORDERAB LES Final Result Performing Organization Address [facility] Co de Phone Number [facility] [address] [place] [phone] * Lipase (11/29/2024 5:30 AM EDT) Lipase 28 8 - 78 U/L [facility] 11/29/2024 5:30 AM EDT 11/29/2024 5:33 AM EDT us Generic External Data Provider LAB BLOOD ORDERAB LES Final Result Performing Organization Address [facility] Co de Phone Number [facility] [address] [place] [phone] * (ABNORMAL) Hepatic Function Panel (11/29/2024 5:30 AM EDT) Bilirubin, Total 0.2 0.0 - 1.0 mg/dL [facility] Bilirubin, Direct <0.2 0.0 - 0.5 mg/dL [facility] Aspartate Amino Transferase 37(H) 5 - 31 U/L [facility] Alanine Aminotransferase 12 0 - 31 U/L [facility] Total Protein 7.8 6.5 - 8.0 g/dL [facility] Albumin Level 3.8 3.5 - 5.0 g/dL [facility] Alkaline Phosphatase 76 39 - 117 U/L [facility] 11/29/2024 5:30 AM EDT 11/29/2024 5:33 AM EDT us Generic External Data Provider LAB BLOOD ORDERAB LES Final Result [facility] [address] [place] [phone] [phone] * (ABNORMAL) Basic Metabolic Panel (11/29/2024 5:30 AM EDT) Pathologist [facility] Sodium 137 135 - 145 mmol/L [facility] Potassium 4.9 3.3 - 5.1 mmol/L [facility] Chloride 110(H) 96 - 108 mmol/L [facility] Carbon Dioxide 17(L) 22 - 29 mmol/L [facility] Anion Gap 15 12 - 20 [facility] Urea Nitrogen (BUN) 15 9 - 16 mg/dL [facility] Creatinine, Serum 0.77 0.5 - 1.4 mg/dL [facility] Creatinine Clr Calc Pharmacy 78.0 [facility] Comment:Provided height and weight: 160.02 cm,69.4 kg.eGFR (calculated from the MDRD study equation) and eCrCl(calculated from the Cockcroft-Gault equation) are based ondifferent parameters and may not yield comparable results.If eCrCl result is absurd, please check patient'sheight/weight. Estimated Glomerular Filt Rate >60 [facility] Comment:Chronic Kidney Disea se: Estimated GFR < 60 mL/min/1.48z2Kgqvxl Kidney Disease: Estimated GFR < 15 mL/min/1.73m2 Glucose 100 60 - 115 mg/dL [facility] Calcium 8.7 8.4 - 10.2 mg/dL [facility] 11/29/2024 5:30 AM EDT 11/29/2024 5:33 AM EDT us Generic External Data Provider LAB BLOOD ORDERAB LES Final Result [facility] [address] [place] [phone] * T-SPOT??.TB (11/23/2024 11:39 AM EDT) Pathologist [facility] T Spot TB Negative Negative [facility] Comment:A negative test resu lt does [...] as aquantitative test. TS PANEL A 0 [facility] TS PANEL B 2 [facility] Negative Control Passed [facility] Positive Control Passed [facility] Comment:For additional infor soraida, please refer tohttp://education.Petnet/faq/OLV672(This link is being provided for informational/educational purposes only.)THIS TEST WAS PERFORMED AT:[place] [place] [address]LXJCCAGRAYMUNDO ALLAN MD,PHD 11/23/2024 11:3 9 AM EDT 11/23/2024 11:39 AM EDT Generic External Data Provider LAB BLOOD ORDERAB LES Final Result Performing Organization Address City/[facility]/ZIP Co de Phone Number [facility] [address] [place] [phone] * (ABNORMAL) Ferritin (11/23/2024 11:39 AM EDT) Ferritin 5(L) 10 - 250 ng/mL [facility] 11/23/2024 11:3 9 AM EDT 11/23/2024 11:39 AM EDT Generic External Data Provider LAB BLOOD ORDERAB LES Final Result Performing Organization Address [facility] de Phone Number [facility] [address] [place] [phone] * Gomori Methenamine Stain (11/08/2024 8:52 AM EDT) 11/08/2024 8:52 AM EDT 11/08/2024 10:22 AM EDT Narrative [facility] - 11/11/2024 4:33 PM EDT ----- ------- Name: Leesa Reyes ?Age/Sex: 54/F ? : 1970 Unit#: [id number] ?? Attend Dr: Libby Palafox MD ?Re11/08/24 ?Status: DEP SDC ? Location: HO.SSS ?Disch: ? ----- ------- SPEC : [id number] ? RECD: 11/08/24-1021 ? STATUS: ??SOUT ? REQ NUM: [id number] ? DIPTI: 11/08/24-851 ? SUBM DR: Libby [...] Reyes ?Age/Sex: 54/F ? : 1970 Unit#: [id number] ?? Attend Dr: Libby Palafox MD ?Re11/08/24 ?Status: DEP SDC ? Location: HO.SSS ?Disch: ? ----- ------- SPEC : [id number] ? RECD: 11/08/24 ? STATUS: ??SOUT ? REQ NUM: [id number] ? DIPTI: 11/08/24 ? SUBM DR: Libby [...] Reyes ?Age/Sex: 54/F ? : 1970 Unit#: [id number] ?? Attend Dr: Libby Palafox MD ?Re11/08/24 ?Status: DEP SDC ? Location: HO.SSS ?Disch: ? ----- ------- SPEC : [id number] ? RECD: 11/08/24-1021 ? STATUS: ??SOUT ? REQ NUM: [id number] ? DIPTI: 11/08/24-851 ? SUBM DR: Libby Palafox MD ? ENTERED: ??11/08/24-1028 ?SP TYPE: Surgical ? OTHR DR: Leesa Rapp MD ? ORDERED: ??Gom Meth Stain, HE Stain/15, Acid Fast Stain, Gross Micro L4/5, IHC, ?Specials Gr. 1/2, H. pylori Copies To: ?? Leesa Rapp MD ?? [facility] ?? [address] ?? [place] [address] ?? [phone] ?? Libby Palafox MD ?? [facility] ?? [address] ?? [place] [address] ?? [phone] ----- ------- Signed (signature on file) Domonique Hermosillo 11/09/24 1252 ? ----- ------- ? END OF REPORT ? us Generic External Data Provider LAB MICROBIOLOGY - GENERAL ORDERABLES Final Result [facility] [address] [place] [address] [phone] * Hematoxylin and Eosin Stain (11/08/2024 8:52 AM EDT) 11/08/2024 8:52 AM EDT 11/08/2024 10:22 AM EDT Narrative [facility] - 11/09/2024 12:52 PM EDT ----- ------- Name: Leesa Reyes ?Age/Sex: 54/F ? : 1970 Unit#: [id number] ?? Attend Dr: Libby Palafox MD ?Re11/08/24 ?Status: DEP SDC ? Location: HO.SSS ?Disch: ? ----- ------- SPEC : [id number] ? RECD: 11/08/24-1021 ? STATUS: ??SOUT ? REQ NUM: [id number] ? DIPTI: 11/08/24 ? SUBM DR: Libby [...] Reyes ?Age/Sex: 54/F ? : 1970 Unit#: [id number] ?? Attend Dr: Libby Palafox MD ?Re11/08/24 ?Status: DEP SDC ? Location: HO.SSS ?Disch: ? ----- ------- SPEC : [id number] ? RECD: 11/08/24-1021 ? STATUS: ??SOUT ? REQ NUM: [id number] ? DIPTI: 11/08/24 ? SUBM DR: Libby [...] Copies To: ?? Leesa Rapp MD ?? [facility] ?? [address] ?? [place] [address] ?? [phone] ?? Libby Palafox MD ?? [facility] ?? [address] ?? [place] [address] ?? [phone] ? CONTINUED ON NEXT PAGE ----- ------- Name: Leesa Reyes ?Age/Sex: 54/F ? : 1970 Unit#: [id number] ?? Attend Dr: Libby Palafox MD ?Re11/08/24 ?Status: DEP DCC ? Location: HO.SSS ?Disch: ? ----- ------- SPEC : [id number] ? RECD: 11/08/24 ? STATUS: ??SOUT ? REQ NUM: [id number] ? DIPTI: 11/08/24-851 ? SUBM DR: Libby Palafox MD ? ENTERED: ??11/08/24-1027 ?SP TYPE: Surgical ? OTHR DR: Leesa Rapp MD ? ORDERED: ??HE /, Gross Micro L4/5, H. pylori ? ----- ------- Signed (signature on file) Domonique Hermosillo 11/09/242 ? ----- ------- ? END OF REPORT ? us Generic External Data Provider LAB BLOOD ORDERAB LES Final Result Performing Organization Address City/[facility]/ZIP Co de Phone Number [facility] [address] [place] [phone] [phone] * (ABNORMAL) Lipid Panel with Reflex to Direct LDL (05/19/2024 11:00 AM EDT) Triglycerides 214(H) <150 mg/dL [facility] Comment:Desirable Triglyceri de: less than 150 mg/dLBorderline High Triglyceride 150-199 mg/dLHigh Triglyceride: 200-499 mg/dLVery High Triglyceride: greater than or equal to 5OO mg/dL Cholesterol 207(H) <200 mg/dL [facility] Comment:Desirable Cholestero l: less than 200 mg/dLBorderline High Cholesterol: 200-239 mg/dLHigh Cholesterol: greater than 239 mg/dL LDL Cholesterol Calculated 124(H) <100 mg/dL [facility] Comment:Desirable LDL: less than 100 mg/dLNear Optimal/Above Optimal LDL: 110- 129 mg/dLBorderline High LDL: 130-159 mg/dLHigh LDL: 160-189 mg/dLVery High LDL: greater than or equal to 190 mg/dL HDL Cholesterol 41 >40 mg/dL [facility] Comment:Desirable HDL: great er than 40 mg/dL Note: This HDL assay may give artificially low results in patients with liver disease. Blood 05/19/2024 11:0 0 AM EDT 05/19/2024 1:20 PM EDT us Leesa Wasserman MD LAB BLOOD ORDERABLES Final Result Performing Organization Address City/[facility]/ZIP Co de Phone Number [facility] [address] [place] [phone] [phone] * Image-Guided Pap with Age-Based Screening??with CT/NG,??Trichomonas (07/03/2023 10:41 AM EST) Trichomonas (NAAT) Not Detected Not Detected [facility] Comment:Methodology: Transcr iption Mediated Amplification(TMA)The analytical performance characteristics of thisassay have been [facility] [place], [place]. The modificationshave not been cleared or approved by the FDA. Thisassay has been validated pursuant to the CLIAregulations and is used for clinical purposes.For additional information, please refer tohttp://education.Pet[employer]/faq/Trichomonastma (This link is being providedfor information/educational purposes only).THIS TEST WAS PERFORMED AT:[facility] [address] [id number] ALLAN MD,PHD CTNG Ref Lab Not Detected Not Detected [facility] NG Ref Lab Not Detected Not Detected [facility] Comment:Methodology: Transcr iption Mediated Amplification(TMA) to detect RNA.The analytical performance characteristics of thisassay, when used to test SurePath specimens havebeen determined by [facility]. The modificationshave not been cleared or approved by the FDA.This assay has been validated pursuant to the CLIAregulations and is used for clinical purposes.For additional information, please refer tohttps://education.Petnet/faq/FYN712(This link is being provided for information/educational purposes only).THIS TEST WAS PERFORMED AT:[place] [address] [phone] ALLAN MD,PHD 07/03/2023 10:4 1 AM EST 07/04/2023 9:02 AM EST us Leesa Wasserman MD LAB CYTOLOGY ORDERABL ES Final Result [facility] [address] [place] [phone] * HPV mRNA E6/E7 w/Reflex to HPV Genotypes 16, 18/45 (07/03/2023 10:41 AM EST) HPV nRNA E6/E7 Not Detected Not Detected [facility] Comment:Methodology: Transcr iption-Mediated AmplificationThis assay detects E6/E7 viral messenger RNA (mRNA) from 14high-risk HPV types (16,18,31,33,35,39,45,51,52,56,58,59,66,68).Cervical sources are required for HPV testing.If a vaginal source from a patient who has had atotal hysterectomy with removal of cervix wassubmitted, please contact the testing laboratoryfor alternative testing options.For additional information, please refer tohttp://education.Petnet/faq/GQR008k9(This link if provided for information/educational purposes only.)THIS TEST WAS PERFORMED AT:[facility] [place] [id number] BARROW MD HPV mRNA E6/E7 [facility] HPV 16 RNA [facility] HPV 18/45 RNA [facility] 07/03/2023 10:4 1 AM EST 07/04/2023 8:10 AM EST Leesa Wasserman MD LAB CYTOLOGY ORDERABL ES Final Result [facility] [address] [place] [phone] * BI Mammogram Screening Tomosynthesis Bilateral (03/13/2023 1:46 PM EDT) Anatomical Region Laterality Modality Breast Bilateral Mammography 03/13/2023 1:46 PM EDT Narrative 04/08/2023 1:29 PM EDT ? [facility] [place] ? [address] ?[place] [address] ? Mammography Report ? Signed ? Patient: Eric,Leesa Peña ?MR#: [id number] ?? [id number] ? : 1970 ?Acct:[id number] ? Age/Sex: 52 / F ?ADM Date: 07/20/23 ? Loc: HO.MAMMO ? Attending Dr: Leesa Wasserman MD ? Ordering Physician: Leesa Rapp MD ?Results: ? Date of Service: 03/13/23 ?Follow Up: ? Procedure(s): MM tomosynthesis screening BI ?? Accession Number(s): [id number] ? cc: Leesa Rapp MD ? EXAMINATION: [...] 04/08/237 ? DD/ 1346 ? TD/TT: ? Semiconductor Equipment Technician: ? Procedure Note Donotuseinterpreter, Image - 04/08/2023 [place] [facility] [address] [place] [address] Mammography Report Signed Patient: Leesa Reyes MMR#: [id number] : 1970Acct:[id number] Age/Sex: 52 / FADM Date: 03/13/23 Loc: HO.MAMMO Attending Dr: Leesa Wasserman MD Ordering Physician: Leesa Rappesults: Date of Service: 03/13/23Follow Up: Procedure(s): MM tomosynthesis screening BI Accession Number(s): [id number] cc: Leesa Rapp MD EXAMINATION: MM SCREENING [...] in OV> 04/08/23 1327 DD/ 1346 TD/TT: Semiconductor Equipment Technician: us Leesa Wasserman MD IMG BI PROCEDURES Fin al Result * OCCULT BLOOD STOOL (12/16/2019 4:02 PM EDT) OCCULT BLOOD STOOL NEG NEG [facility] 12/16/2019 4:02 PM EDT us Historical Provider LAB BODY FLUIDS AND STOOL S ORDERABLES Final Result [facility] [address] from Last 3 Months or Most Recently Relevant to Health Maintenance Insurance [facility] C3 * Guarantor: Leesa Reyes Account Type Relation to Patient Date of Phone Billing Address Personal/Family Self [address] [place] [address] Care Teams Senior Developer Relationship Specialty Start Date End Date Leesa Rapp MD [address] [place] [phone] PCP - General Family Medicine 10/15/19
--- OUTSIDE RECORDS SUMMARY | 2024-12-16 13:40 | XMS_ITS | Encounter Summary ---
Author Organization [employer] Address [address] [facility] [address] [place] [address] Care Team Providers Care Marinator Name Role Phone Leesa Rapp MD Primary Care Provide r Reason for Visit * Reason Comments Med Refill Encounter Details Date Type Department Care Team (Late st Contact Info) Description 12/31/2022 Refill [facility] [address] [place] [address] Vee Harris MD [address] [place] [address] Moderate persistent asthma without complication Social History [...] Upcoming Encounters Date Type Department Care Team ([facility] Contact Info) Description 02/11/2025 9:00 AM EDT Office Visit [facility] [address] [place] [address] Ernestina Ayon MD [address], [place] [phone] 02/16/2025 9:15 AM EDT Office Visit [facility] [address], [place] [phone] Leesa Rapp MD [address], [place] [phone] documented as of this encounter Visit Diagnoses Diagnosis Moderate persistent asthma without complication documented in this encounter Care Teams Marinator Relationship Specialty Start Date End Date Leesa Rapp MD [address] [place] [phone] PCP - General Family Medicine 10/15/19 documented as of this encounter
== END 2024-12-16 12:00 | disposition home or self-care (01) ==
LOC: HO.HGI 11:25
PROVIDERS: PCP Internal Medicine; Visit Provider Internal Medicine Gastroenterology
DX: K50.90 Crohn's disease, unspecified, without complications (principal); K21.9 Gastro-esophageal reflux disease without esophagitis; K59.09 Other constipation
CPT/HCPCS: 99499

== ENCOUNTER 2025-02-01 11:01 | Outpatient (AMB) | payer MEDICAID, SELFPAY ==
--- NOTE | 2025-02-01 11:18 | MHC.OFFVIS ---
Vital Signs 02/01/25 11:35 02/01/25 11:50 Height 5 ft 3 in Weight 171 lb BMI 30.3 BP 160/70 H 131/61 Blood Pressure Location Lt brachial Lt brachial Position Sitting Sitting Pulse 82 52 Pulse Oximetry (%) 99 Oxygen Delivery Method Room Air Intake Visit Reasons: follow up Intake Note: Patient follow up for chronic constipation. Patient cc: abdominal bloating, acid reflux on and off, chronic constipation with bloody hemorrhoids, and also chest discomfort, denies any other GI issues. 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: No Accompanied by: Family/Other Allergies aspirin (ASA) Allergy (Intermediate, Verified 03/16/25 04:02) RASH azathioprine (From IMURAN) Allergy (Intermediate, Verified 03/16/25 04:02) PANCREATIC INFLAMMATION ibuprofen (IBUPROFEN) Allergy (Intermediate, Verified 03/16/25 04:02) TOLD NOT TO TAKE levofloxacin (From LEVAQUIN) Allergy (Mild, Verified 03/16/25 04:02) YEAST INFECTIONS Medication List - Last Reconciled 02/01/25 by Libby Palafox MD acetaminophen (Tylenol) 650 mg PO Q4H PRN albuterol sulfate 90 mcg/actuation (ProAir HFA) 2 puffs PO Q4H PRN apixaban (Eliquis) 2.5 mg PO BID budesonide-formoterol 160-4.5 mcg/actuation (Symbicort) 2 puffs PO BID calcium carbonate 500 mg PO BID carboxymethylcellulose sodium 1% 1 drp ophthalmic (eye) BID PRN clonazepam 0.5 mg PO BEDTIME PRN docusate sodium 1 cap PO BID PRN doxycycline hyclate 100 mg PO BID famotidine (Pepcid) 20 mg PO BID PRN folic acid 1 mg PO DAILY 60 days gabapentin 100 mg PO BID hydromorphone 4 mg PO Q6H PRN hydroxyzine HCl 1 tab PO BID PRN lactulose 20 grams (30 mL) PO BID lidocaine 4% 1 patch topical DAILY PRN melatonin 3 mg PO BEDTIME PRN methotrexate sodium 25 mg (10 x 2.5 mg) PO FR 90 days montelukast 1 tab PO BEDTIME multivitamin 1 tab PO QAM ondansetron 4 mg PO Q6-8H PRN oxybutynin chloride ER 15 mg PO DAILY 30 days paroxetine HCl 40 mg PO QAM prednisone 10 mg PO DAILY 4 weeks risperidone 1 mg PO BID tofacitinib (Xeljanz) 10 mg PO BID 30 days topiramate 100 mg PO BID vitamin B complex-folic acid 0.4 mg (B Complex 1 (with folic acid)) 1 tab PO QAM zolpidem 5 mg PO BEDTIME PRN HPI HPI follow up: Details: GI FU visit for this 54-year-old female for FU of Crohn's disease. Next Stelara infusion scheduled on 02/17/25 Pt is on chronic anticoagulation with Eliquis because of history of pulmonary embolism. CHRONIC ILLNESSES:?RA, GERD, asthma, sleep apnea, iron def anemia, anxiety and depression? ? ? TODAY'S VISIT:? Patient cc: abdominal bloating, acid reflux on and off, chronic constipation with bloody hemorrhoids, Notes improvement in abdominal pain and bowel movements since she started taking Notes lower abd pain when stool is passing through the lower colon Has 12 BMs a day consisting of formed stool One episode of nocturnal BM - if she eats something after 4 pm. Intermittent straining with multiple small BMs Takes Lactulose every few days Continues to have abdominal pain and mild constipation. Having upto 8 small formed BMs a day Finished Prednisone last week and requesting a refill Also patient is worry about a cancer dx class 1/nurse from OR asked her about the cancer ??? Patient wanted to see a bisque kiln drawer. Pt feels very tired all the time for the past 2-3 weeks and feels worse this week EGD and colon results were reviewed with the patient Complains of constipation - has 15 or more BMs a day and stool is hard. Notes abdominal pain and cramps and has to go to the bathroom Abd pain is a little better 10 min after a BM. Has to go back to the bathroom again after 10-15 min PAST VISITS: Feeling better and denies abdominal pain, diarrhea or constipation Abdominal pain was likely due to abd wall seroma - now resolved Patient cc: [facility] center abdominal discomfort, and she denies any other GI issues. Pt is accompanied by her daughter, Madelin who interpreted.? Notes improvement in abdominal pain. Feels everything is controlled right now?? Doing OK at present. Pt reports having a normal BM 2 or more times a day. Initially had diarrhea. Notes intermittent abd discomfort due to the seroma [place] [facility] Miralax once a day and laculose once a day with good evacuation and denies feeling backed up. Appetite has improved after she took prednisone. Daughter is requesting referral to the Atmospheric Physicist to help with diet. Urgent FU appt scheduled after recent hospitalization from 02/10 to 02/12/24: Hospital course The patient was admitted for treatment of Acute obstipation and stercoral colitis related to opioid use as CT abdomen/pelvis consistent with constipation with a large amount of fecal material present in the colon rectum and fecal material with mildly obstructive effect. as she was manually disimpacted in ED and started on Miralax, Enema and Lactulose with good response as she moved her bowels overnight and repeated KUB showed interval resolution of the constipation. Seen by GI who recommended to increase Miralax and Start LActulose on discharge with a plan to follow as outpatient. The patient had SIRS with leukocytosis likely related to inflammation and chronic steroid use. Tachycardia r/t pain and anxiety. lactic acidosis from dehydration not due to sepsis. No signs of infection. To follow with GI as outpatient. Discharge plan Start Lactulose once daily Increase Miralax to twice daily follow with dr Palafox as outpatient ?? ? Patient cc: after hernia surgery she is been with a lot of abdominal pain on and off, today she is dizzy and her BP is low. Patient said everything is okay and no GI issues today Complains of mid abdominal/periumblical pain x last week Pain is intense 9/10 in intensity Seen in the ER at [facility] and prescribed oxycodone Does not eat when she has pain - does not feel like eating. Complains of constipation - has a BM every 1-2 days. Takes prune juice which helps. Takes docusate twice a day for constipation. Denies black stools or rectal bleeding. PAST VISITS: Had ileostomy reversal 2 months ago. Surgery went well. Has a BM 2-3 times a day, has constipation on some days and does not go on some days Feeling regular Has an appt with colorectal [place] [facility] [place]. Pt states, the surgeon will discuss reversal of colostomy. Last Stelara injection was on Sep 25, 2022 and next injection scheduled on 10/23/22. Pt denies abdominal pain and reports a good appetite Pt is accompanied by her daughter, Aissatou. EGD results were reviewed with the patient. Denies abdominal pain or rectal bleeding. Comes to short stay for her Stelara injection - last injection 01/31/22. Next injection scheduled on 02/28/22 at 9:30 am. Not taking MTX - prescription was stopped without anyone telling the pt - prescription renewed. Has been feeling better since discharge from the hospital 10 days ago - I have abdominal pain. Sometimes when I swallow the food gets stuck - symptoms associated with solid food. Its painful to swallow. Dysphagia episodes are frequent. Food goes down with water and is very painful. Has 6-7 BMs a day. On prednisone taper at 30 mg daily and will decrease to 20 mg daily in 2 days. IBD Summary: ? Year of diagnosis: Crohn's disease diagnosed in [address] scan. ? Disease Extent: Colon ? Past treatments: Azathioprine caused pancreatitis, ? She was initially treated with Remicade which did not work and she was switched to Humira. ? Treated with Entyvio for a few months which was stopped due to side effects. ? In 09/2016, she was treated with Stelara every 8 weeks which worked well for her. ? She has been treated with Prednisone intermittently. ? Previous Endoscopic Evaluations: 01/18/20 COLONOSCOPY SHOWED: One small hyperplastic rectal polyp removed. Patchy erythema throughout the colon - surveillance biopsies were obtained. Focal area of ulcerations with a tight stricture at 18 to 20 cms and unable to pass the colonoscope through the stricture. Stricture was dilated with a 12mm (26 F) CRE balloon and colonoscope was then advanced into the colon. Patchy erythema with focal ulcers in the distal rectum. Inflammation in the recto-sigmoid significantly improved from last year - biopsies were obtained for histology. EGD and colonoscopy on 08/20/2016. ? EGD showed diffuse whittish plaques in the esophagus and diffuse erythema of the mucosa in the cardia. ? Biopsies were obtained. ? Colonoscopy showed normal mucosa in the right colon and patchy erythema and erosions in the left colon. Diffuse erythema and erosions were seen involving most of the rectum. ? Past Surgeries: She underwent Colon surgery (? removal of sigmoid colon) with colostomy at [facility] in 2010. She had reversal of colostomy in Dec, 2011. She developed a peristomal hernia. Last seen at [facility] in 11/2020 and requesting an appointment. Increased MTX to 25 mg (10 tablets) from 5 or 6 tablets daily in?March LABS IN [facility]:04/28/20 Reviewed H&H of 11.2 and 36.7, CHEM PANEL AND LFTS. ? Improvement in LFTs with AST of 32 (decreased from 93) and ALT of 70 (decreased from 190) , alkaline phosphatase 97, FERRITIN 40 ? CRP 2.20 (increased from 0.71 on 03/24/20) ? 08/12 STOOL CALPROTECTIN WAS 714 (DECREASED FROM > 2000 IN 12/11) 01/11 T spot was negative. ? IMAGING STUDIES: 09/08/[address] SCAN SHOWED: Narrowing of the segment of the proximal sigmoid colon with wall enhancement and thickening is noted which is a chronic finding as seen on multiple previous CT scans; however, possibility of mild increased wall thickening and enhancement in the region cannot be completely excluded. Given the dilatation of the colon proximal to this level on current examination, possibility of at least partial obstruction related to the proximal sigmoid colon stricture is suspected. The findings are most probably related to patient's known inflammatory bowel disease; however, again possibility of neoplastic process here cannot be completely excluded. 03/[address] SCAN SHOWED:? There is a long segment of colitis from the mid transverse colon ? through the distal rectum sigmoid consistent with history of Crohn's ? disease. There has been progression of disease since prior exam of 12/16/2019. ENDOSCOPIC STUDIES:?09/28/21 EGD SHOWED: ESOPHAGUS: GE junction at 36 cms.? Focal esophagitis with a 1 cms ulcer at GEJ. No stricture or ring noted.? Scattered white exudates in the proximal and mid esophagus suggestive of esophageal candidiasis - biopsies obtained to check for Karo/EOE. STOMACH: Gastritis - biopsied to check for H Pylori Plan:? Start Fluconazole for esophageal candidiasis - likely source of dysphagia and odynophagia. Resume Eliquis tonight. 09/13/21 FLEXIBLE SIGMOIDOSCOPY SHOWED: Flexible Sigmoidoscopy Findings: Focal tight stricture from 15 to 18 cms with ulcerations. Stricture was dilated with a 10, 11 and 12 mm (36 F) CRE balloon x 60 sec at each level. Biopsies were obtained from the stricture and colon at 30 and 10 cms (proximal and distal to the stricture) Plan:? Resume full liquid diet tonight and advance diet as tolerated. OK to resume Eliquis in the am. Switch to PO prednisone at 40 mg in the am and taper by 10 mg every 5 days over 3 weeks. BIOPSIES SHOWED: A.? Colon, sigmoid at 30 cm, biopsy:? Focal chronic colitis without activity; negative for dysplasia and carcinoma. B.? Colon, sigmoid at 18 cm, stricture, biopsy:? Chronic colitis with mild to severe activity and active ulcer with granulation tissue, superficial fragments; negative for dysplasia and carcinoma. C.? Colon, sigmoid at 10 cm, biopsy:? Chronic colitis without activity; negative for dysplasia and carcinoma. Colonoscopy in 01/18/20 showed patchy erythema throughout the colon - surveillance biopsies were obtained. Focal area of ulcerations with a tight stricture at 18 to 20 cms and unable to pass the colonoscope through the stricture. Stricture was dilated with a 12mm (26 F) CRE balloon and colonoscope was then advanced into the colon. Patchy erythema with focal ulcers in the distal rectum. Inflammation in the recto-sigmoid significantly improved from last year - severe left sided colitis with minimal inflammation in the remaining colon. were negative for CMV [facility] Medical History (Updated 03/16/25 @ 14:42 by Maryan Anne MD) Crohn's colitis Urge incontinence Stricture of colon Normocytic anemia Anxiety Sleep apnea Asthma GERD (gastroesophageal reflux disease) Pulmonary embolism Crohn's disease PTSD (post-traumatic stress disorder) Recurrent major depression-severe Hyperlipidemia Hemorrhagic cyst of ovary Kidney stones Depression Iron deficiency anemia Rheumatoid arthritis Migraine Cancer HTN (hypertension) Surgical History History of esophagogastroduodenoscopy (EGD) History of colon resection History of colon resection Hx of dilation and curettage Hx of cystoscopy Hx of cystoscopy Hx of colonoscopy (~10/2018) Hx of endoscopy Social History Household Members: None Housing: Apartment Are you a primary healthcare project manager to a significant other at home: No Do you presently have visiting nurse or other home services: Yes (MEDICAL ADMINISTRATIVE SPECIALIST) Alcohol intake: never Patient Tobacco Use Status: Former Tobacco user Tobacco use type: Cigarette Cigarettes Per Day: 1 Years Smoked: 10 e-Cigarette/Vaping Use: Former Use Second Hand Smoke Exposure: No Substance Use Type: Marijuana Advance Directives Date on File: 02/13/24 service: No Current occupational status: unemployed and disabled Sexual orientation: Straight/Heterosexual Review of Systems Const All systems reviewed & are unremarkable except as noted in HPI and below Physical Exam Vital Signs: Last Vital Signs Pulse 52 02/01/25 11:50 BP 131/61 02/01/25 11:50 Pulse Ox 99 02/01/25 11:35 Oxygen Delivery Method Room Air 02/01/25 11:35 BMI result Body Mass Index 30.3 Const General: no acute distress and anxious Nutritional Appearance: obese Orientation/consciousness: patient oriented x3 Limitations: no limitations HEENT Head: Yes normal to inspection Ears: hearing grossly normal bilaterally Eyes Sclerae: sclerae normal Pupils: Equal, round and reactive pupils present Neck Neck: Yes normal visual inspection Chest Chest palpation & inspection: normal inspection of the chest Resp Effort & Inspection: normal respiratory effort Auscultation: clear to auscultation bilaterally Cardio Palpation: normal PMI Rate: regular rate Rhythm: regular rhythm Heart sounds: S1 normal heart sound present, S2 normal heart sound present and no murmurs GI Palpation (GI): Soft to palpation, nontender and No hepatosplenomegaly present Auscultation: normal bowel sounds Rectal Exam - Female: deferred Skin General skin exam: no rashes or lesions noted Neuro General: patient oriented x3, gait normal and moves all extremities Cranial nerves: Yes Equal, round and reactive pupils present Psych Appearance: grossly normal Mental Status: mental status grossly normal Assessment & Plan Assessment & Plan (1) Crohn's disease: Code(s): K50.90 - Crohn's disease, unspecified, without complications Category: Medical (2) GERD (gastroesophageal reflux disease): Code(s): K21.9 - Gastro-esophageal reflux disease without esophagitis Category: Medical (3) Chronic constipation: Code(s): K59.09 - Other constipation Category: Medical Plan 54 year old Arabic-speaking (able to speak some Polish) female with RA, GERD, asthma, sleep apnea, iron def anemia, intermittent compliance with follow up appointments, anxiety, depression with some memory loss with Crohn's disease involving the left colon (and suspected jejunal involvement). Pt was diagnosed with Crohn's colitis 23 yrs ago and is status post sigmoid colectomy with colostomy in 2010, reversal of colostomy in 2011. She has failed treatment with multiple medications in the past due to lack of efficacy or side effects including Remicade, Humira, Cimzia, Entyvio, azathioprine caused pancreatitis. She has been on Stelara every 8 weeks which had worked well for her in the past. Dose of Stelara was increased to every 4 weeks 2 years ago due to breakthrough symptoms and low trough levels. She has been treated with Prednisone intermittently for CD flares. Patient was seen at [facility] IBD clinic for a 2nd opinion regarding treatment options and addition of methotrexate was advised. Patient was started on methotrexate 25 mg intramuscularly every week on 04/13/19 in the Oncology clinic. She was switched to p.o. methotrexate 50 mg once a week in Sep, 2019 - now taking 25 mg every week. She is also on budesonide 9 mg once daily. She continues to have intermittent flares requiring IV steroids. Pt was seen at [facility] on 05/03/20 and dose of MTX was increased to 25 mg PO (10 tab) every week from 5 or 6 tablets daily in March 2020. 09/13/21 Flexible sigmoidoscopy showed a?focal tight stricture from 15 to 18 cms with ulcerations. Stricture was dilated to 12 mm (36 F) with a CRE balloon. Biopsies obtained from the stricture showed chronic colitis with mild to severe activity and active ulcer with granulation tissue - negative for dysplasia and carcinoma? Biopsies obtained from 30 and 10 cms (proximal and distal to the stricture) showed focal chronic colitis without activity. 05/17/22 Pt had Robot assisted laparoscopic lysis of adhesions with resection of colorectal anastomosis and new colorectal anastomosis with loop ileostomy and left ureterolysis and mobilization of the splenic flexure by Dr Mcdonough, colorectal surgeon, [facility].? No dysplasia noted on histology. She has a FU appt to schedule ileostomy reversal after gastrograffin enema. 02/20/23 Pt will be scheduled for a surveillance colonoscopy - scheduled on 08/11/23. Advised to hold Eliquis for 3 days before colonoscopy appt (will obtain clearance from Dr Blake) Miralax once a day for constipation. Labs in March 2023. 05/29/23 mid abdominal/periumblical pain x last week Pain is intense 9/10 in intensity Seen in the ER at [facility] and prescribed oxycodone 02/20/24 Doing OK at present. Pt reports having a normal BM 2 or more times a day. Initially had diarrhea. Notes intermittent abd discomfort due to the seroma Scheduled to [place] [facility] Taking Miralax once a day and laculose once a day with good evacuation and denies feeling backed up. Appetite has improved after she took prednisone. Abdominal pain is likely related to seroma. Pt advised to check a fecal calprotectin to rule out active Crohn's disease Referral sent to the dietitian to discuss diet for Crohn's disease at request of patient and her daughter. 05/31/24 Feeling better and denies abdominal pain, diarrhea or constipation Abdominal pain was likely due to abd wall seroma - now resolved Advised to schedule an EGD (FU of esophagitis) and Colon (FU of Crohn's disease) 11/08/24 EGD AND COLONOSCOPY SHOWED: Endoscopy Findings: ESOPHAGUS: Normal STOMACH: Moderate gastric antral erythema DUODENUM: Normal Colonoscopy Findings: No polyps were detected Friable mucosa with patchy erythema and scattered aphthoid ulcers with active colitis from 0 to 30 cms and mild colitis in the rest of the colon - multiple biopsies were obtained. Moderate diverticulosis seen in the sigmoid colon Moderate hemorrhoids on retroflexed exam. Plan: Repeat Colonoscopy in 2 years for Crohn's disease surveillance. BIOPSIES SHOWED: A. Gastric antrum, biopsy: Gastric antral mucosa with minimal chronic gastritis with few focal neutrophils; no granuloma seen; negative for intestinal metaplasia and dysplasia. B. Colon, cecum, biopsy: Chronic colitis with mild activity and focal mucosal microgranulomas; negative for dysplasia. C. Colon, ascending, biopsy: Focal chronic colitis with minimal activity, mucosal microgranulomas, and granulomas in submucosal lymphoid aggregate; negative for dysplasia. D. Colon, transverse, biopsy: Focal chronic colitis with mild activity; no granulomas or dysplasia. E. Colon, sigmoid, biopsy: Focal chronic colitis with moderate activity and surface erosion; no granulomas or dysplasia. Comment: (A): Immunostain for H. pylori was negative. (C): AFB and GMS stains - negative Patient was placed on the colonoscopy recall list for repeat colon in 2 years 11/23/24 EGD and colon results were reviewed with the patient Complains of constipation - has 15 or more BMs a day and stool is hard. Notes abdominal pain and cramps and has to go to the bathroom Abd pain is a little better 10 min after a BM. Pt advised to increase lactulose to 30 ml twice daily and start Prednisone taper 12/2024 Tofacitinib (Xeljanz) 10 mg PO twice daily was added. Pt reports compliance with Stelara injection, MTX and budesonide. She noted that she starts feeling bad 2 weeks after the Stelara injection. FU in 3 month Coding Level of Care Code Est Pt Level 4 (36724) Diagnoses Crohn's disease K50.90 GERD (gastroesophageal reflux disease) K21.9 Chronic constipation K59.09 Time Spent (min) 21
[2025-02-01 11:35] VITALS: BP 160/70; PULSE 82; O2SAT 99; BMI 30.3
[2025-02-01 11:50] VITALS: BP 131/61; PULSE 52
--- OUTSIDE RECORDS SUMMARY | 2025-02-01 13:09 | XMS_ITS | Encounter Summary ---
Author Organization [employer] Address [address] [place] [address] Care Team Providers Care Dope Mixer Name Role Phone Leesa Rapp MD Primary Care Provide r Encounter Details Date Type Department Care Team ([facility] Contact Info) Description 11/28/[address] [facility] MEDICINE [address] [place] [id number] Leesa Rapp MD [address] [place] [address] [phone] Social History Tobacco Use Types Packs/Day Years [...] Upcoming Encounters Date Type Department Care Team ([facility] Contact Info) Description 02/11/2025 9:00 AM EDT Office Visit [facility] MEDICINE [address] [place] [phone] Ernestina Ayon MD [address] [place] [address] 02/16/2025 9:15 AM EDT Office Visit [facility] [address] [facility] [place], [place] [phone] Leesa Rapp MD [address] [place], [place] [phone] documented as of this encounter Visit Diagnoses Not on filedocumented in this encounter Care Teams Dope Mixer Relationship Specialty Start Date End Date Leesa Rapp MD [address] [facility] [place] [address] PCP - General Family Medicine 10/15/19 documented as of this encounter
== END 2025-02-01 12:07 | disposition home or self-care (01) ==
LOC: HO.HGI 11:02
PROVIDERS: PCP Internal Medicine; Visit Provider Internal Medicine Gastroenterology
DX: K50.90 Crohn's disease, unspecified, without complications (principal); K21.9 Gastro-esophageal reflux disease without esophagitis; K59.09 Other constipation
CPT/HCPCS: 99214

== ENCOUNTER → 2025-02-01 11:01 | Outpatient (BNVA) | payer MEDICAID, SELFPAY | PROVIDERS: PCP Internal Medicine; Visit Provider Internal Medicine Gastroenterology | DX: K21.9 Gastro-esophageal reflux disease without esophagitis (principal); K50.90 Crohn's disease, unspecified, without complications | CPT/HCPCS: 99212 ==

== ENCOUNTER 2025-02-06 12:19 | Emergency (ER) | payer OTHER, SELFPAY ==
[2025-02-06 12:26] VITALS: BP 139/42; PULSE 58; RESP 16; TEMP 37; O2SAT 98; BMI 28.9
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
[2025-02-06 12:38] VITALS: BP 139/42; PULSE 58; RESP 16; TEMP 37; O2SAT 98
== END 2025-02-06 12:39 | disposition home or self-care (01) ==
LOC: HO.ED 12:37
PROVIDERS: Emergency Provider Emergency Medicine; PCP Internal Medicine
DX: S39.012A Strain of muscle, fascia and tendon of lower back, initial encounter (principal); S16.1XXA Strain of muscle, fascia and tendon at neck level, initial encounter; S29.011A Strain of muscle and tendon of front wall of thorax, initial encounter; V43.52XA Car driver injured in collision with other type car in traffic accident, initial encounter; Y93.89 Activity, other specified; Y92.414 Local residential or business street as the place of occurrence of the external cause; Y99.9 Unspecified external cause status
CPT/HCPCS: 99282; 99283

== ENCOUNTER 2025-03-16 03:49 | Inpatient (IN) | payer MEDICAID, SELFPAY ==
[2025-03-16] VITALS (14 sets, daily range): BP systolic 116–157; BP diastolic 63–99; PULSE 54–97; RESP 14–18; TEMP 36.4–36.7; O2SAT 95–100; BMI 29.6
--- NOTE | 2025-03-16 | ECG_ITS ---
Test Reason : PALPITATIONS Blood Pressure : */* mmHG Vent. Rate : 79 BPM Atrial Rate : 79 BPM P-R Int : 132 ms QRS Dur : 80 ms QT Int : 378 ms P-R-T Axes : -17 0 17 degrees QTcB Int : 433 ms Normal sinus rhythm Normal ECG When compared with ECG of 29-Nov-2024 05:17, No significant change was found Referred By: Generic ED Physician Electronically Signed By: Jm Nguyen
--- NOTE | ~2025-03-16 | CT_ITS ---
EXAMINATION: CT ABDOMEN AND PELVIS WITH CONTRAST CLINICAL INFORMATION: Diffuse abdominal pain. Rectal bleeding. History of Crohn's disease. COMPARISON: November 29, 2024 TECHNIQUE: Multidetector volumetric images were obtained from the superior aspect of the liver through the pubic symphysis following administration 85 mL of Omnipaque 350 intravenous contrast. Sagittal and coronal reformatted images were obtained on the technologist's workstation. Oral contrast: No This CT examination was performed using dose optimization techniques as appropriate, variously including the following: *Automated exposure control *Adjustment of mA and/or kV according to patient size (this includes techniques or standardized protocols for targeted exams where dose is matched to indication/reason for exam; i.e. extremities or head) *Use of iterative reconstruction technique DLP: 542 mGy centimeter. FINDINGS: LUNG BASES: Pulmonary patchy groundglass, right lung base and to a lesser extent left lung base. LIVER, GALLBLADDER, AND BILIARY TREE: Liver measures 16 cm. No focal mass. There is a nonspecific 5 mm low density near the falciform ligament. Portal veins, hepatic veins and intrahepatic portion of the IVC are grossly patent. No pericholecystic fluid collection or gallbladder wall thickening. No intrahepatic or extrahepatic biliary ductal dilatation. PANCREAS: No focal lesion. No peripancreatic fluid collection. No main pancreatic ductal dilatation. SPLEEN: 8 cm. No focal lesion. ADRENAL GLANDS: No nodular lesions. KIDNEYS AND URETERS: Normal enhancement pattern of the renal parenchyma. No hydronephrosis. No focal mass. Subcentimeter cystic lesions. 1.5 mm nonobstructing calculus, upper pole left pelvicalyceal system. BLADDER: Collapsed with questionable wall thickening versus artifactual. GASTROINTESTINAL TRACT: Sutures at the rectosigmoid colon with segmental concentric wall thickening extending at the suture site as well as proximal and distally. There is a questionable descensus of the rectum below the perineum/pelvic floor. There are sutures in the distal ileal loops without gross wall thickening. No intestinal obstruction pattern. No pneumatosis intestinalis. No peripheral enhancing fluid collections in the peritoneal cavity. No ascites. No pneumoperitoneum. Terminal ileum is normal. Appendix is normal. No gross enteroenteric fistula. No gross pericolonic edema pattern. ABDOMINAL WALL: Status post abdominal wall mesh placement. LYMPH NODES: Prominent, nonspecific lymph nodes in the mesenteric adjacent to the ascending colon. VASCULAR: Mixed plaques throughout the abdominal aorta wall and iliac arteries. No aneurysm or dissection, abdominal aorta. PELVIC VISCERA: No gross masses. OSSEOUS STRUCTURES: Spondylosis at L5-S1 resulting in central spinal canal and bilateral neuroforamina stenosis. CT/CT abdomen pelvis w IV con IMPRESSION: Questionable relapse in the rectum/rectosigmoid colon. No abscess. No gross enteroenteric fistula. Nonobstructing nephrolithiasis, left kidney. Fleischner guidelines were followed. Electronically signed by: Ajay Ramirez MD 03/16/2025 08:16 AM EDT
[2025-03-16 04:29] LABS: Hematocrit 35.3 % (37.0-47.0); Hemoglobin 11.8 g/dl (12.0-16.0); Mean Corpuscular HGB Conc 33.4 g/dl (31.0-35.0); Mean Corpuscular Hemoglobin 26.9 pg (27.0-33.0); Mean Corpuscular Volume 80.4 fL (80.0-98.0); NRBC Abs Auto 0.000 X10*3/uL (0.0-0.012); NRBC Pct Auto 0.0 /100WBC (0.0-0.2); Platelet Count 211 X10*3/uL (160-400); Red Blood Count 4.39 X10*6/uL (4.20-5.50); White Blood Count 7.7 X10*3/uL (4.8-10.8)
[2025-03-16 04:50] LABS: Alanine Aminotransferase 17 U/L (0-31); Albumin Level 4.4 g/dL (3.5-5.0); Alkaline Phosphatase 87 U/L (39-117); Anion Gap 13 (12-20); Aspartate Amino Transferase 21 U/L (5-31); Blood Urea Nitrogen 11 mg/dL (9-16); Calcium 9.2 mg/dL (8.4-10.2); Carbon Dioxide 24 mmol/L (22-29); Chloride 106 mmol/L (96-108); Creatinine Clr Calc Pharmacy 75.1; Estimated Glomerular Filt Rate > 60; Lipase 22 U/L (8-78); Magnesium 2.1 mg/dL (1.6-2.6); Potassium 3.6 mmol/L (3.3-5.1); Sodium 139 mmol/L (135-145); Total Protein 7.7 g/dL (6.5-8.0)
[2025-03-16] MEDS: Lactated Ringers 1,000 ML 999 ML IV (06:54)
--- NOTE | 2025-03-16 06:59 | PC.NURSE ---
This Rn assumed care @ 0700. Patient presents to ED c/o Left ABD pain rated 10/10 radiating to her back. Patient reports being constipated, then have a bout of diarrhea that contained blood (light red), Patient has hx of hemorrhoids. + bowel sounds abdomen tender RLQ, LUQ, and LLQ. Patient hypertensive 157/99 but all other VSS and up to date. Patient awaiting CT scan of abdomen. Provider in to see patient. Plan of care on going.
--- NOTE | 2025-03-16 07:05 | PC.NURSE ---
Patient c/o pain and nausea. Administered morphine and zofran per order effectiveness pending.
--- NOTE | 2025-03-16 07:20 | ED.GENADULT ---
HPI - General Adult General Chief complaint: General Medical Stated complaint: gen med Time Seen by Provider: 03/16/25 06:29 Source: patient Mode of arrival: ambulatory Limitations: no limitations History of Present Illness ED Provider: Dr. Qi Pace HPI narrative: Patient comes to the emergency room complaining of abdominal pain in the left upper and lower quadrant and diarrhea. Patient reports nausea but no vomiting. Patient has history of Crohn's. Patient is not sure if it is her Crohn's acting up again or she is having diarrhea because she used a large amount of laxative because she was very constipated. Patient denies fever chills, denies hematuria or dysuria. Related Data Home Medications ?Medication ?Instructions ?Recorded ?Confirmed docusate sodium 100 mg capsule 1 cap PO BID PRN Constipation 03/22/21 03/16/25 montelukast 10 mg tablet 1 tab PO BEDTIME 03/22/21 03/16/25 multivitamin 1 tab PO QAM 03/22/21 03/16/25 albuterol sulfate 90 mcg/actuation 2 puff PO Q4H PRN Shortness Of 06/13/21 03/16/25 aerosol inhaler (ProAir HFA) Breath hydroxyzine HCl 25 mg tablet 1 tab PO BID PRN Anxiety 06/25/21 03/16/25 budesonide-formoterol HFA 160 2 puff PO BID 09/08/21 03/16/25 mcg-4.5 mcg/actuation aerosol inhaler (Symbicort) gabapentin 100 mg capsule 100 mg PO BID 01/28/22 03/16/25 zolpidem 5 mg tablet 5 mg PO BEDTIME PRN insomnia 12/17/23 03/16/25 acetaminophen 325 mg tablet 650 mg PO Q4H PRN Pain 02/11/24 03/16/25 (Tylenol) calcium carbonate 500 mg PO BID 02/11/24 03/16/25 carboxymethylcellulose sodium 1 % 1 drp ophthalmic (eye) BID PRN Dry 02/11/24 03/16/25 eye liquid gel drops Eye(S) clonazepam 0.5 mg tablet 0.5 mg PO BEDTIME PRN Anxiety 02/11/24 03/16/25 melatonin 3 mg tablet 3 mg PO BEDTIME PRN Sleep 02/11/24 03/16/25 topiramate 100 mg tablet 100 mg PO BID 02/11/24 03/16/25 amlodipine 2.5 mg tablet 2.5 mg PO DAILY PRN Hypertension 03/16/25 03/16/25 sertraline 25 mg tablet (Zoloft) 25 mg PO DAILY 03/16/25 03/16/25 ustekinumab 90 mg/mL subcutaneous 90 mg subcut Q4W 03/16/25 03/16/25 syringe (Jaimeera) Previous Rx's ?Medication ?Instructions ?Recorded risperidone 1 mg tablet 1 mg PO BID #60 tabs 04/04/21 vitamin B complex-folic acid 0.4 1 tab PO QAM #30 tabs 11/09/21 mg tablet (B Complex 1 (with folic acid)) folic acid 1 mg tablet 1 mg PO DAILY 60 days #60 tabs 10/24/22 oxybutynin chloride 15 mg 15 mg PO DAILY 30 days #30 tabs 10/31/23 tablet,extended release 24 hr famotidine 20 mg tablet (Pepcid) 20 mg PO BID PRN abdominal 01/29/24 discomfort #60 tabs ondansetron 4 mg disintegrating 4 mg PO Q6-8H PRN nausea and 09/10/24 tablet vomiting #14 tabs lactulose 20 gram/30 mL oral 20 g (30 mL) PO BID #1,800 mL 12/16/24 solution methotrexate sodium 2.5 mg tablet 25 mg (10 x 2.5 mg) PO FR 90 days 01/20/25 #130 tabs cyclobenzaprine 10 mg tablet 10 mg PO TID PRN muscle spasm #12 02/06/25 tabs apixaban 2.5 mg tablet (Eliquis) 2.5 mg PO BID #60 tabs 02/11/25 Allergies Allergy/AdvReac Type Severity Reaction Status Date / Time aspirin (ASA) Allergy Intermediate RASH Verified 03/16/25 04:02 azathioprine (From IMURAN) Allergy Intermediate PANCREATIC Verified 03/16/25 04:02 INFLAMMATION ibuprofen (IBUPROFEN) Allergy Intermediate TOLD NOT Verified 03/16/25 04:02 TO TAKE levofloxacin (From LEVAQUIN) Allergy Mild YEAST Verified 03/16/25 04:02 INFECTIONS Review of Systems Review of Systems: Constitutional : No Weight loss, No Fever, No Chills, No Night Sweats, No Fatigue, No Malaise ENT/Mouth : No Hearing loss, No Ear Pain, No Nasal Congestion, No Sinus Pain, No Hoarseness, No sore throat, No Rhinorrhea, No Swallowing Difficulty Eyes: No Eye Pain, No Swelling, No Redness, No Foreign Body, No Discharge, No Vision Changes Cardiovascular : No Chest Pain, No SOB, No Dyspnea on Exertion, No Orthopnea, No Edema, No Palpitations Respiratory : No Cough, No Sputum, No Wheezing, No Smoke Exposure, No Dyspnea Gastrointestinal : Complaining of Nausea, No Vomiting, complaining of large amount of diarrhea, Crohn's versus laxative effect, complaining of left upper and lower quadrant pain, no flank pain Genitourinary : no irregular bleeding, No Dysuria, No Urinary Frequency, No Hematuria, No Urinary Incontinence, No Urgency, No Flank Pain, No Urinary Flow Changes, No Hesitancy Musculoskeletal : No joint pain, No Myalgias, No Joint Swelling Skin : No Skin Lesions, No rash Neuro : No Weakness, No Numbness, No Paresthesias, No Loss of Consciousness, No Dizziness, No Headache Psych : No Anxiety/Panic, No Depression, No SI/HI/AH/VH, No Social Issues, Heme/Lymph: No Bruising, No Bleeding,No Lymphadenopathy Endocrine : No Polyuria, No Polydipsia, No Temperature Intolerance PMFSH Past Medical History Medical History (Updated 03/16/25 @ 14:42 by Maryan Anne MD) Crohn's colitis Urge incontinence Stricture of colon Normocytic anemia Anxiety Sleep apnea Asthma GERD (gastroesophageal reflux disease) Pulmonary embolism Crohn's disease PTSD (post-traumatic stress disorder) Recurrent major depression-severe Hyperlipidemia Hemorrhagic cyst of ovary Kidney stones Depression Iron deficiency anemia Rheumatoid arthritis Migraine Cancer HTN (hypertension) Surgical History History of esophagogastroduodenoscopy (EGD) History of colon resection History of colon resection Hx of dilation and curettage Hx of cystoscopy Hx of cystoscopy Hx of colonoscopy (~10/2018) Hx of endoscopy Social History Social History Household Members: None Housing: Apartment Are you a primary child care cook to a significant other at home: No Do you presently have visiting nurse or other home services: No Alcohol intake: never Patient Tobacco Use Status: Former Tobacco user Tobacco use type: Cigarette Cigarettes Per Day: 1 Years Smoked: 10 Smoked in Last 30 Days: No e-Cigarette/Vaping Use: Never Used Second Hand Smoke Exposure: No Use of substances other than those prescribed or required for medical reasons: No Substance Use Type: Marijuana Advance Directives: Yes Advance Directives on File: Yes Advance Directives Date on File: 02/13/24 Patient : No service: No Current occupational status: unemployed and disabled Sexual orientation: Straight/Heterosexual Physical Exam ED Exam Exam: Appearance: Alert. Oriented X3. No acute distress. Eyes: Pupils equal, round and reactive to light. ENT: Pharynx normal. Neck: Normal inspection. Neck supple. No lymph nodes noted. No crepitus CVS: Normal heart rate and rhythm. Pulses normal. Normal S1 and S2 Respiratory: No respiratory distress. Breath sounds normal. No Wheezing. No rales Abdomen: Soft, mild to pain to palpation on the left lower quadrant, No rigidity. No distention. Skin: Skin warm and dry. Normal skin color. Normal skin turgor. Extremities: No lower extremity edema. No Lacerations. No Rash Neuro: Oriented X 3. No motor deficit. No sensory deficit. Moving all extremities. No slurred speech. CN 2 through 12 grossly intact Psych: calm, cooperative, normal affect Vital Signs: Vital Signs - 24 hr 03/16/25 03:59 03/16/25 04:52 03/16/25 06:53 Temperature 98.1 F 98.1 F Pulse Rate 78 78 Respiratory Rate 18 18 14 Blood Pressure 156/69 H 156/69 H Pulse Oximetry 98 98 Oxygen Delivery Method Room Air Room Air 03/16/25 07:03 03/16/25 07:24 03/16/25 09:09 Temperature 97.8 F 97.8 F 97.8 F Pulse Rate 97 67 65 Respiratory Rate 18 17 16 Blood Pressure 157/99 H 147/85 H 140/86 H Pulse Oximetry 98 99 99 Oxygen Delivery Method Room Air Room Air Room Air 03/16/25 10:36 03/16/25 11:30 Temperature 97.8 F Pulse Rate 62 Respiratory Rate 16 14 Blood Pressure 146/82 H Pulse Oximetry 100 Oxygen Delivery Method Room Air BMI result Body Mass Index 30.0 Course Course Course Narrative: Patient comes to the emergency room complaining of diarrhea, patient is not clear if this is secondary to Crohn's exacerbation versus overuse of laxative Patient receiving IV fluids, Zofran, morphine CT scan pending Patient's CT scan pending Reevaluation(s) Reevaluation #1: Patient was signed out to me by Dr. Pace at 07:[address] result I re-examin Time: 11:36 Reevaluation #2: Patient is here complaining of abdominal pain inflammatory markers are elevated, CT scan showed possible relapse of Crohn's, I discussed the case with the assistant to the president Dr. Palafox we will start steroid we will admit for observation for pain control symptom control Time: 15:03 Medications Administered Generic Name Dose Route Start Last Admin Trade Name Freq PRN Reason Stop Dose Admin Lactated Ringer's 1,000 mls @ 100 mls/hr 03/16/25 13:15 03/16/25 13:34 Lr IVCONT 03/16/25 23:14 100 mls/hr .Q10H JUANCHO Administration Discontinued Medications Generic Name Dose Route Start Last Admin Trade Name Freq PRN Reason Stop Dose Admin Lactated Ringer's 1,000 mls @ 999 mls/hr 03/16/25 06:45 03/16/25 09:08 Lr IV 03/16/25 07:45 Infused .Q1H1M JUANCHO Infusion Sodium Chloride 1,000 mls @ 999 mls/hr 03/16/25 11:15 03/16/25 13:34 Ns IVCONT 03/16/25 12:15 Infused .Q1H1M JUANCHO Infusion Iohexol 85 ml 03/16/25 07:47 03/16/25 07:48 Iohexol 350 Mg/Ml 100 Ml Infus..Btl IV 03/16/25 07:48 85 ml ONCE ONE Administration Methylprednisolone Sodium Succinate 125 mg 03/16/25 12:27 03/16/25 13:34 Methylprednisolone Sod Succ 125 Mg/2 Ml Vial IVPUSH 03/16/25 12:28 125 mg ONCE ONE Administration Metoclopramide HCl 10 mg 03/16/25 10:47 03/16/25 10:54 Metoclopramide Hcl 10 Mg/2 Ml Vial IVPUSH 03/16/25 10:48 10 mg ONCE ONE Administration Morphine Sulfate 4 mg 03/16/25 06:35 03/16/25 06:53 Morphine Sulfate 4 Mg/Ml Cartridge IVPUSH 03/16/25 06:36 4 mg ONCE ONE Administration Protocol Morphine Sulfate 4 mg 03/16/25 11:07 03/16/25 11:30 Morphine Sulfate 4 Mg/Ml Cartridge IVPUSH 03/16/25 11:08 4 mg ONCE ONE Administration Protocol Ondansetron HCl 4 mg 03/16/25 06:35 03/16/25 06:54 Ondansetron Hcl 4 Mg/2 Ml Vial IVPUSH 03/16/25 06:36 4 mg ONCE ONE Administration Medical Decision Making Medical Decision Making MDM Narrative: My interpretation of labs: Patient's white blood cell count within normal limits, chemistry within normal limits, LFTs normal, magnesium normal, lipase normal CT scan of the abdomen/pelvis pending. Overall patient's seems to be feeling a bit better with the above-mentioned medications Sign-out given to my colleague Dr. Barreto Differential Diagnosis Differential Diagnoses: The differential diagnosis associated with the presentation includes (Gastroenteritis, Crohn's disease, laxative overuse) Admission/Observation Consideration of admission/observation: Escalation of care including admission/observation considered (Given patient's past medical history and symptoms, observation has been considered) Consult Healthcare Provider Management of the patient was discussed with: Hospitalist Lab Data [facility] Lab Attestation statement: I reviewed the patient's lab results. 03/16/25 13:52 03/16/25 13:52 Labs: Lab Results 03/16/25 03/16/25 Range/Units 04:22 08:08 WBC 7.7 (4.8-10.8) X10*3/uL RBC 4.39 (4.20-5.50) X10*6/uL Hgb 11.8 L (12.0-16.0) g/dl Hct 35.3 L (37.0-47.0) % MCV 80.4 (80.0-98.0) fL MCH 26.9 L (27.0-33.0) pg MCHC 33.4 (31.0-35.0) g/dl RDW 16.7 H (11.0-16.0) % Plt Count 211 (160-400) X10*3/uL MPV 11.4 (9.4-12.3) fL Absolute Nucleated RBC 0.000 (0.0-0.012) X10*3/uL Nucleated RBC % (auto) 0.0 (0.0-0.2) /100WBC Sodium 139 (135-145) mmol/L Potassium 3.6 D (3.3-5.1) mmol/L Chloride 106 (96-108) mmol/L Carbon Dioxide 24 (22-29) mmol/L Anion Gap 13 (12-20) BUN 11 (9-16) mg/dL Creatinine 0.84 (0.5-1.4) mg/dL Estim Creat Clear Calc 75.1 Estimated GFR > 60 Random Glucose 103 (60-115) mg/dL Calcium 9.2 (8.4-10.2) mg/dL Magnesium 2.1 (1.6-2.6) mg/dL Total Bilirubin 0.3 (0.0-1.0) mg/dL Direct Bilirubin 0.1 (0.0-0.5) mg/dL AST 21 (5-31) U/L ALT 17 (0-31) U/L Alkaline Phosphatase 87 (39-117) U/L C-Reactive Protein 2.52 H (< or = 0.50) mg/dL Total Protein 7.7 (6.5-8.0) g/dL Albumin 4.4 (3.5-5.0) g/dL Lipase 22 (8-78) U/L Urine Color Yellow Urine Appearance Clear Urine pH 7.0 (5.0-9.0) Ur Specific [place] <= 1.005 (1.005-1.025) Urine Protein Negative (Neg-Trace) mg/dL Urine Glucose (UA) Negative (Negative) mg/dL Urine Ketones Trace (Negative) mg/dL Urine Blood Small (1+) H (Negative) Urine Nitrite Negative (Negative) Ur Leukocyte Esterase Negative (Negative) Urine RBC 0-2 (0-2) /HPF Urine WBC 0-5 (0-5) /HPF Ur Squamous Epith Cells 0-2 (0-2) /HPF Urine Bacteria None Seen (None Seen) Hyaline Casts 0-2 (0-2) /LPF Independent Interpretation I performed an independent interpretation of an: CT Scan Radiology Impression Discussion of test interpretation with radiology: I have reviewed the radiologist's reading. Prescription Management I considered prescription management with: Pain Medication Critical Care Time Critical Care Time Critical Care Time: Yes Total Critical Care Time: 35 Attestation: I have personally provided critical care time. Time includes review of lab data, radiology results, discussion with consultants, and monitoring for potential decompensation. Intervention performed as documented. Discharge Plan Discharge Clinical Impression: Abdominal pain Qualifiers: Abdominal location: generalized Qualified Code(s): R10.84 - Generalized abdominal pain Diarrhea Qualifiers: Diarrhea type: unspecified type Qualified Code(s): R19.7 - Diarrhea, unspecified Crohn disease Qualifiers: Gastrointestinal tract location: large intestine Digestive disease complication type: without complication Qualified Code(s): K50.10 - Crohn's disease of large intestine without complications Patient Disposition: Admitted As Inpatient Interventions: Admission Worksheet (ED) Last Done: 03/16/25 14:17
[2025-03-16] MEDS: iohexoL 350 MG/ML 100 ML INFUS..BTL 85 ML IV (07:48)
[2025-03-16 08:24] LABS: Appearance Urine Clear; Glucose Urine UA Negative (Negative); PH 7.0 (5.0-9.0); Specific Gravity - Urine <= 1.005 (1.005-1.025); UMIC TRIGGER UACC YES
--- NOTE | 2025-03-16 13:17 | PM.IMHP ---
History of Present Illness Date of Service: 03/16/25 Attending physician on admission: Maryan Anne Chief Complaint: Bloody diarrhea Leesa Reyes is a 54 years old woman with past medical history significant for Crohn's disease status post reversal ileostomy; on Stelara infections, asthma, essential hypertension, GERD and VTE on Eliquis presents to the emergency department complaining of 3 day history of constipation. However, after doubling the dose of lactulose she started to experience multiple episodes of bloody (bright red blood) diarrhea (> 7 episodes), left-sided abdominal pain. She did not report fever. She experiences chills, palpitations, chest pressure and shortness on breath while having diarrhea. She did not report any headache. She denied pain with urination. She mentioned that after her last reversal surgery she has been experiencing significant constipation requiring digital disimpaction. She does smoke marijuana in occasions. Denied alcohol abuse or illicit drug use. In the ED, she was found to have stable vital signs. Blood workup showed no leukocytosis. Hemoglobin is 13.3 and at baseline. Platelets at 198. There are no electrolyte imbalances. CRP is 2.52. Urinalysis showed no evidence of UTI. Abdominal pelvis CT scan showed questionable relapse in the rectum/rectosigmoid colon. It did not show abscesses enteroenteric fistula or obstructive nephrolithiasis. ECG showed normal sinus rhythm without acute ischemic changes. ED tx: LR 2 L bolus, morphine 8 mg IV total, Zofran 4 mg IV, Reglan 10 mg IV Review of Systems Review of Systems: All 12 systems were reviewed and normal except as noted in HPI. [facility] Medical History (Updated 03/16/25 @ 14:42 by Maryan Anne MD) Crohn's colitis Urge incontinence Stricture of colon Normocytic anemia Anxiety Sleep apnea Asthma GERD (gastroesophageal reflux disease) Pulmonary embolism Crohn's disease PTSD (post-traumatic stress disorder) Recurrent major depression-severe Hyperlipidemia Hemorrhagic cyst of ovary Kidney stones Depression Iron deficiency anemia Rheumatoid arthritis Migraine Cancer HTN (hypertension) Surgical History History of esophagogastroduodenoscopy (EGD) History of colon resection History of colon resection Hx of dilation and curettage Hx of cystoscopy Hx of cystoscopy Hx of colonoscopy (~10/2018) Hx of endoscopy Social History Household Members: None Housing: Apartment Are you a primary child care associate teacher to a significant other at home: No Do you presently have visiting nurse or other home services: No Alcohol intake: never Patient Tobacco Use Status: Former Tobacco user Tobacco use type: Cigarette Cigarettes Per Day: 1 Years Smoked: 10 Smoked in Last 30 Days: No e-Cigarette/Vaping Use: Never Used Second Hand Smoke Exposure: No Use of substances other than those prescribed or required for medical reasons: No Substance Use Type: Marijuana Advance Directives: Yes Advance Directives on File: Yes Advance Directives Date on File: 02/13/24 Patient : No service: No Current occupational status: unemployed and disabled Sexual orientation: Straight/Heterosexual Meds Allergies Allergy/AdvReac Type Severity Reaction Status Date / Time aspirin (ASA) Allergy Intermediate RASH Verified 03/16/25 04:02 azathioprine (From IMURAN) Allergy Intermediate PANCREATIC Verified 03/16/25 04:02 INFLAMMATION ibuprofen (IBUPROFEN) Allergy Intermediate TOLD NOT Verified 03/16/25 04:02 TO TAKE levofloxacin (From LEVAQUIN) Allergy Mild YEAST Verified 03/16/25 04:02 INFECTIONS Active Medications: Current Medications Acetaminophen (Acetaminophen 325 Mg Tablet) 976 mg PO Q6H PRN PRN Reason: Pain, Mild 1-3,fever,headache Calcium Carbonate (Calcium Carbonate 750 Mg Tab.Chew) 750 mg PO Q4H PRN PRN Reason: Heartburn Lactated Ringer's (Lr) 1,000 mls @ 100 mls/hr IVCONT .Q10H [facility] Stop: 03/16/25 23:14 Melatonin (Melatonin 3 Mg Tablet) 6 mg PO BEDTIME PRN PRN Reason: Insomnia Ondansetron HCl (Ondansetron Hcl 4 Mg/2 Ml Vial) 4 mg IVPUSH Q8H PRN PRN Reason: Nausea and Vomiting Sodium Chloride (0.9 % Sodium Chloride Flush 3 Ml Syringe) 3 ml IVFLUSH QSHIFT [facility] Home Medications ?Medication ?Instructions ?Recorded ?Confirmed ?Last Taken ?Type docusate sodium 100 mg capsule 1 cap PO BID PRN Constipation 03/22/21 03/16/25 03/15/25 History montelukast 10 mg tablet 1 tab PO BEDTIME 03/22/21 03/16/2503/15/25 History multivitamin 1 tab PO QAM 03/22/21 03/16/25 03/15/25 History albuterol sulfate 90 mcg/actuation 2 puff PO Q4H PRN Shortness Of 06/13/21 03/16/25 03/15/25 History aerosol inhaler (ProAir HFA) Breath hydroxyzine HCl 25 mg tablet 1 tab PO BID PRN Anxiety 06/25/21 03/16/25 03/15/25 History budesonide-formoterol HFA 160 2 puff PO BID 09/08/21 03/16/25 03/15/25 History mcg-4.5 mcg/actuation aerosol inhaler (Symbicort) gabapentin 100 mg capsule 100 mg PO BID 01/28/22 03/16/25 03/15/25 History zolpidem 5 mg tablet 5 mg PO BEDTIME PRN insomnia 12/17/23 03/16/25 03/15/25 History acetaminophen 325 mg tablet 650 mg PO Q4H PRN Pain 02/11/24 03/16/25 03/15/25 History (Tylenol) calcium carbonate 500 mg PO BID 02/11/24 03/16/25 03/15/25 History carboxymethylcellulose sodium 1 % 1 drp ophthalmic (eye) BID PRN Dry 02/11/24 03/16/25 03/15/25 History eye liquid gel drops Eye(S) clonazepam 0.5 mg tablet 0.5 mg PO BEDTIME PRN Anxiety 02/11/24 03/16/25 03/15/25 History melatonin 3 mg tablet 3 mg PO BEDTIME PRN Sleep 02/11/24 03/16/25 03/15/25 History topiramate 100 mg tablet 100 mg PO BID 02/11/24 03/16/25 03/15/25 History amlodipine 2.5 mg tablet 2.5 mg PO DAILY PRN Hypertension 03/16/25 03/16/25 03/15/25 History sertraline 25 mg tablet (Zoloft) 25 mg PO DAILY 03/16/25 03/16/25 03/15/25 History ustekinumab 90 mg/mL subcutaneous 90 mg subcut Q4W 03/16/25 03/16/25 02/17/25 History syringe (Stelara) Physical Exam Vital Signs and Narrative: Vital Signs: Last Vital Signs Temp 97.8 F 03/16/25 10:36 Pulse 62 03/16/25 10:36 Resp 14 03/16/25 11:30 BP 146/82 H 03/16/25 10:36 Pulse Ox 100 03/16/25 10:36 O2 Del Method Room Air 03/16/25 10:36 BMI result Body Mass Index 30.0 Constitutional - Awake and Alert, No apparent distress. Afebrile. HEENT - PER, EOMI Heart - RRR, No murmurs Lungs - Normal lung expansion, Normal respiratory effort, No respiratory distress, CTA bilaterally Abdomen - Nondistended, generalized tenderness to palpation; increased BS; No rebound or guarding Extremities - no calf tenderness bilaterally, no swelling Musculoskeletal - Normal inspection, normal ROM Skin - Warm/Dry. No pallor. No jaundice. Neurological - Alert & oriented x3. Moving all extremities spontaneously. Psychological - Appropriate affect Results Labs 03/16/25 13:52 03/16/25 04:22 Labs: Laboratory Results - last 24 hr 03/16/25 03/16/25 04:22 08:08 MCV 80.4 MCH 26.9 L MCHC 33.4 RDW 16.7 H Plt Count 211 MPV 11.4 Absolute Nucleated RBC 0.000 Nucleated RBC % (auto) 0.0 Anion Gap 13 Estim Creat Clear Calc 75.1 Estimated GFR > 60 Random Glucose 103 Calcium 9.2 Magnesium 2.1 Total Bilirubin 0.3 Direct Bilirubin 0.1 AST 21 ALT 17 Alkaline Phosphatase 87 C-Reactive Protein 2.52 H Total Protein 7.7 Albumin 4.4 Lipase 22 Urine Color Yellow Urine Appearance Clear Urine pH 7.0 Ur Specific [place] <= 1.005 Urine Protein Negative Urine Glucose (UA) Negative Urine Ketones Trace Urine Blood Small (1+) H Urine Nitrite Negative Ur Leukocyte Esterase Negative Urine RBC 0-2 Urine WBC 0-5 Ur Squamous Epith Cells 0-2 Urine Bacteria None Seen Hyaline Casts 0-2 Imaging Radiologist's Impressions: Impressions Abdomen/Pelvis CT 03/16/25 07:42 IMPRESSION: Questionable relapse in the rectum/rectosigmoid colon. No abscess. No gross enteroenteric fistula. Nonobstructing nephrolithiasis, left kidney. Fleischner guidelines were followed. Electronically signed by: Ajay Ramirez MD 03/16/2025 08:16 AM EDT RP Assessment and Plan (1) Crohn's colitis: Qualifiers: Digestive disease complication type: with rectal bleeding Qualified Code(s): K50.111 - Crohn's disease of large intestine with rectal bleeding Status: Acute (2) Bloody diarrhea: Status: Acute Plan Leesa Reyes is a 54 y/o woman with PMHx significant for Crohn's disease status post reversal ileostomy + robot assisted laparoscopic lysis of adhesions with resection of colorectal anastomosis; on Stelara admitted with: Crohn's flare involving the left colon. Advance diet as tolerated. Continue Solu-Medrol 60 mg IV daily. Continue IV fluids. Gastroenterology consult -F/U with Dr. Palafox. Essential hypertension. Continue amlodipine. Mood disorder. Continue Risperdal, topiramate, gabapentin, Atarax and clonazepam. Chronic constipation. Has bloody diarrhea now. Hold lactulose. GERD. Continue PPI. Asthma. Continue home inhalers and montelukast. RA. On methotrexate every Friday. History of VTE. Eliquis on hold due to bloody diarrhea. Restart when able. MARISOL. Nocturnal CPAP. Code status: Full DVT prophylaxis: SCDs Patient will need hospitalization for at least 2 midnights for Crohn's flare treatment with IV fluids and steroids + evaluation by subspecialty. Quality Stroke Does the patient have a stroke diagnosis?: No VTE Prior VTE?: No VTE Risk Level:: Medical - moderate - high VTE Device Contraindication: N/A - Device Ordered VTE Drug Contraindication: N/A - Med Ordered
[2025-03-16] MEDS: Lactated Ringers 1,000 ML 100 ML IVCONT (13:34)
[2025-03-16 14:02] LABS: Hematocrit 35.1 % (37.0-47.0); Hemoglobin 11.3 g/dl (12.0-16.0); Mean Corpuscular HGB Conc 32.2 g/dl (31.0-35.0); Mean Corpuscular Hemoglobin 26.7 pg (27.0-33.0); Mean Corpuscular Volume 82.8 fL (80.0-98.0); NRBC Abs Auto 0.000 X10*3/uL (0.0-0.012); NRBC Pct Auto 0.0 /100WBC (0.0-0.2); Platelet Count 198 X10*3/uL (160-400); Red Blood Count 4.24 X10*6/uL (4.20-5.50); White Blood Count 7.6 X10*3/uL (4.8-10.8)
--- NOTE | 2025-03-16 14:09 | PHA.MEDREC ---
Pharmacy Consult ? Medication Reconciliation Pharmacy has completed the medication reconciliation, Spoke with patient at bedside, she was able to name her medication with some prompting. She no longer takes Doxycycline, hydromorphone, lidocaine patches, paroxetine, prednisone, or tofacitinib. Is now on Amlodipine prn high blood pressure, Sertraline 100mg QD, and Stelara 90mg q4 weeks in our infusion center. She takes her Methotrexate every Friday, last was 03/11/25. She states she stops her eliquis when she feels bad and that she might come to the hospital. So she hasn't taken it in ~4 days.
[2025-03-16 14:17] LABS: Anion Gap 10 (12-20); Blood Urea Nitrogen 7 mg/dL (9-16); Calcium 8.6 mg/dL (8.4-10.2); Carbon Dioxide 26 mmol/L (22-29); Chloride 107 mmol/L (96-108); Creatinine Clr Calc Pharmacy 91.5; Estimated Glomerular Filt Rate > 60; Magnesium 2.0 mg/dL (1.6-2.6); Potassium 3.8 mmol/L (3.3-5.1); Sodium 139 mmol/L (135-145)
--- NOTE | 2025-03-16 14:44 | PM.GICN ---
History of Present Illness Data of Consult Service Date: 03/16/25 Primary Care Provider: Unknown Physician HPI Reason for consult: bloody diarrhea 54 years old woman with past medical history significant for Crohn's disease status post reversal ileostomy; on Stelara infections, asthma, essential hypertension, GERD and VTE on Eliquis who I am seeing for assessment for bloody stools and diarrhea. She had noted 3 d of constipation, then increased her lactulose and noted diarrheal stools with blood tylor with moderate severe LLQ pain without any relieving or exacerbating factors. . she denies fever. SHe feels this is like one of her crohns flares, but she has some additional lower back pain whih is unusual. She has no urine sx e.g dysuria. Denies taking nsaids. LABS with HGB at baseline, CRP above baseline. UA with small blood CT: thickened bowel at ansotomosis and possible prolapse LAST EGD, colo 10/2024- gastritis focal colitis, medium hemorrhoids. Review of Systems Review of Systems: Constitutional : No Weight loss, No Fever, No Chills ENT/Mouth : No sore throat, No Rhinorrhea Eyes: No Swelling, No Redness Cardiovascular : No Chest Pain, No SOB, No Edema Respiratory : No Cough, No Sputum, No Wheezing Gastrointestinal : see HPI Genitourinary : NO Dysuria, No Urinary Frequency, No Hematuria, No Urgency Musculoskeletal : + joint pain, No Myalgias, No Joint Swelling Skin : No Skin Lesions, No rash Neuro : No Weakness, No Numbness, No Dizziness, No Headache Psych : No Anxiety/Panic, No Depression Heme/Lymph: No Bruising, No Lymphadenopathy Endocrine : No Polyuria, No Polydipsia All other systems reviewed and are negative. Neurologic: Denies Abnormal speech present PENDING SALE TO [facility] Past Medical History Medical History (Updated 03/16/25 @ 14:42 by Maryan Anne MD) Crohn's colitis Urge incontinence Stricture of colon Normocytic anemia Anxiety Sleep apnea Asthma GERD (gastroesophageal reflux disease) Pulmonary embolism Crohn's disease PTSD (post-traumatic stress disorder) Recurrent major depression-severe Hyperlipidemia Hemorrhagic cyst of ovary Kidney stones Depression Iron deficiency anemia Rheumatoid arthritis Migraine Cancer HTN (hypertension) Surgical History Surgical History History of esophagogastroduodenoscopy (EGD) History of colon resection History of colon resection Hx of dilation and curettage Hx of cystoscopy Hx of cystoscopy Hx of colonoscopy (~10/2018) Hx of endoscopy Social History Social History Household Members: None Housing: Apartment Are you a primary lpn care manager to a significant other at home: No Do you presently have visiting nurse or other home services: No Alcohol intake: never Patient Tobacco Use Status: Former Tobacco user Tobacco use type: Cigarette Cigarettes Per Day: 1 Years Smoked: 10 Smoked in Last 30 Days: No e-Cigarette/Vaping Use: Never Used Second Hand Smoke Exposure: No Use of substances other than those prescribed or required for medical reasons: No Substance Use Type: Marijuana Advance Directives: Yes Advance Directives on File: Yes Advance Directives Date on File: 02/13/24 Patient : No service: No Current occupational status: unemployed and disabled Sexual orientation: Straight/Heterosexual Meds Allergies Allergy/AdvReac Type Severity Reaction Status Date / Time aspirin (ASA) Allergy Intermediate RASH Verified 03/16/25 04:02 azathioprine (From IMURAN) Allergy Intermediate PANCREATIC Verified 03/16/25 04:02 INFLAMMATION ibuprofen (IBUPROFEN) Allergy Intermediate TOLD NOT Verified 03/16/25 04:02 TO TAKE levofloxacin (From LEVAQUIN) Allergy Mild YEAST Verified 03/16/25 04:02 INFECTIONS Active Medications: Current Medications Acetaminophen (Acetaminophen 325 Mg Tablet) 976 mg PO Q6H PRN PRN Reason: Pain, Mild 1-3,fever,headache Amlodipine Besylate (Amlodipine Besylate 2.5 Mg Tablet) 2.5 mg PO DAILY JUANCHO; Protocol Calcium Carbonate (Calcium Carbonate 750 Mg Tab.Chew) 750 mg PO Q4H PRN PRN Reason: Heartburn Clonazepam (Clonazepam 0.5 Mg Tablet) 0.5 mg PO BEDTIME PRN PRN Reason: Anxiety Famotidine (Famotidine 20 Mg Tablet) 20 mg PO BID PRN PRN Reason: abdominal discomfort Folic Acid (Folic Acid 1 Mg Tablet) 1 mg PO DAILY JUANCHO Gabapentin (Gabapentin 100 Mg Capsule) 100 mg PO BID J[facility]ANCHO Hydroxyzine HCl (Hydroxyzine Hcl 25 Mg Tablet) 25 mg PO BID PRN PRN Reason: Anxiety Lactated Ringer's (Lr) 1,000 mls @ 100 mls/hr IVCONT .Q10H JUANCHO Stop: 03/16/25 23:14 Last Admin: 03/16/25 13:34 Dose: 100 mls/hr Melatonin (Melatonin 3 Mg Tablet) 6 mg PO BEDTIME PRN PRN Reason: Insomnia Methotrexate (Methotrexate Sodium 2.5 Mg Tablet) 25 mg PO FR [facility] Methylprednisolone Sodium Succinate (Methylprednisolone Sod Succ 125 Mg/2 Ml Vial) 60 mg IVPUSH DAILY [facility] Montelukast Sodium (Montelukast Sodium 10 Mg Tablet) 10 mg PO BEDTIME [facility] Multivitamins/Vitamin C (Multivitamin Tablet) 1 tab PO DAILY [facility] Non-Formulary Medication (Budesonide-Formoterol [Symbicort]) 2 puff PO BID [facility] Ondansetron HCl (Ondansetron Hcl 4 Mg/2 Ml Vial) 4 mg IVPUSH Q8H PRN PRN Reason: Nausea and Vomiting Oxybutynin Chloride (Oxybutynin Chloride Er 5 Mg Tab.Er.24) 15 mg PO DAILY [facility] Risperidone (Risperidone 1 Mg Tablet) 1 mg PO BID [facility] Sertraline HCl (Sertraline Hcl 25 Mg Tablet) 25 mg PO DAILY [facility] Sodium Chloride (0.9 % Sodium Chloride Flush 3 Ml Syringe) 3 ml IVFLUSH QSHIFT [facility] Topiramate (Topiramate 100 Mg Tablet) 100 mg PO BID [facility] Home Medications ?Medication ?Instructions ?Recorded ?Confirmed ?Last Taken ?Type docusate sodium 100 mg capsule 1 cap PO BID PRN Constipation 03/22/21 03/16/25 03/15/25 History montelukast 10 mg tablet 1 tab PO BEDTIME 03/22/21 03/16/25 03/15/25 History multivitamin 1 tab PO QAM 03/22/21 03/16/25 03/15/25 History albuterol sulfate 90 mcg/actuation 2 puff PO Q4H PRN Shortness Of 06/13/21 03/16/25 03/15/25 History aerosol inhaler (ProAir HFA) Breath hydroxyzine HCl 25 mg tablet 1 tab PO BID PRN Anxiety 06/25/21 03/16/25 03/15/25 History budesonide-formoterol HFA 160 2 puff PO BID 09/08/21 03/16/25 03/15/25 History mcg-4.5 mcg/actuation aerosol inhaler (Symbicort) gabapentin 100 mg capsule 100 mg PO BID 01/28/22 03/16/25 03/15/25 History zolpidem 5 mg tablet 5 mg PO BEDTIME PRN insomnia 12/17/23 03/16/25 03/15/25 History acetaminophen 325 mg tablet 650 mg PO Q4H PRN Pain 02/11/24 03/16/25 03/15/25 History (Tylenol) calcium carbonate 500 mg PO BID 02/11/24 03/16/25 03/15/25 History carboxymethylcellulose sodium 1 % 1 drp ophthalmic (eye) BID PRN Dry 02/11/24 03/16/25 03/15/25 History eye liquid gel drops Eye(S) clonazepam 0.5 mg tablet 0.5 mg PO BEDTIME PRN Anxiety 02/11/24 03/16/25 03/15/25 History melatonin 3 mg tablet 3 mg PO BEDTIME PRN Sleep 02/11/24 03/16/25 03/15/25 History topiramate 100 mg tablet 100 mg PO BID 02/11/24 03/16/25 03/15/25 History amlodipine 2.5 mg tablet 2.5 mg PO DAILY PRN Hypertension 03/16/25 03/16/25 03/15/25 History sertraline 25 mg tablet (Zoloft) 25 mg PO DAILY 03/16/25 03/16/25 03/15/25 History ustekinumab 90 mg/mL subcutaneous 90 mg subcut Q4W 03/16/25 03/16/25 02/17/25 History syringe (Stelara) Physical Exam Exam: Exam: EXAM: GENERAL: The patient is well developed and nontoxic. VITAL SIGNS:see workflow HEENT: Nonicteric sclerae, PERRLA, EOMI. Oropharynx clear. Moist mucous membranes. Conjunctivae appear well perfused. No thyroid mass. CHEST: Chest wall is nontender. HEART: Regular rate and rhythm without murmurs. LUNGS: Clear to auscultation bilaterally. ABDOMEN: Soft, positive bowel sounds, tender lower left abdo, no organomegaly.no flank tenderness SKIN: No rash, no excessive bruising, petechiae, or purpura. NEUROLOGIC: Cranial nerves II-XII intact without motor/sensory deficit. Psych: normal affect Vital Signs: Vital Signs: Last Vital Signs Temp 97.8 F 03/16/25 10:36 Pulse 62 03/16/25 10:36 Resp 14 03/16/25 11:30 BP 146/82 H 03/16/25 10:36 Pulse Ox 100 03/16/25 10:36 O2 Del Method Room Air 03/16/25 10:36 BMI result Body Mass Index 30.0 Const: General: cooperative, healthy appearing, comfortable and no acute distress Orientation/consciousness: patient oriented x3 Limitations: no limitations HEENT: Head: Yes normal to inspection, No Henao's sign and No raccoon eyes Ears: hearing grossly normal bilaterally and TM's normal bilaterally General nose exam: Normal external nose present Face and sinus: Yes normal facial exam Mouth: Normal oral and palatal mucosa present Throat: Yes posterior oropharynx normal, Yes tonsils normal and Yes uvula midline Eyes: General: appearance normal, both eyes and all related structures Pupils: Equal, round and reactive pupils present Neck: Other: +left trapezius muscle spasm with soft tissue tenderness. No cervical midline tenderness/step offs or deformities with FROM Neck: Yes normal visual inspection Chest: Other: MIld tenderness to palpation over the left upper chest wall with no crepitus, ecchymosis or deformity. No SB sign Chest palpation & inspection: normal inspection of the chest Resp: Effort & Inspection: normal respiratory effort Auscultation: clear to auscultation bilaterally Cardio: Rate: regular rate Rhythm: regular rhythm Peripheral pulses: Peripheral pulses 2+ throughout GI: Inspection: Yes normal to inspection Palpation (GI): Soft to palpation and nontender Auscultation: normal bowel sounds Back/Spine/Pelvis: Thoracic/Lumbar Spine: thoracic and lumbar spine normal to inspection Skin: General skin exam: no rashes or lesions noted Neuro: General: patient oriented x3, no focal motor deficits and normal sensation to monofilament Cranial nerves: Yes Equal, round and reactive pupils present Cognition (Neuro): normal cognition Speech: No Abnormal speech present Gait exam (Neuro): Normal gait present Motor exam (neuro): 5/5 motor strength present throughout Sensory Exam: Normal double simultaneous stimulation for sensation Deep tendon reflexes (DTR's): Right patellar reflex intensity grade: 2+ and Left patellar reflex intensity grade: 2+ Extrem: General: Yes normal to inspection Results Labs 03/16/25 13:52 03/16/25 13:52 Labs: Short CBC 03/16/25 03/16/25 Range/Units 04:22 13:52 WBC 7.7 7.6 (4.8-10.8) X10*3/uL Hgb 11.8 L 11.3 L (12.0-16.0) g/dl Hct 35.3 L 35.1 L (37.0-47.0) % Plt Count 211 198 (160-400) X10*3/uL BMP 03/16/25 03/16/25 04:22 13:52 Sodium 139 139 Potassium 3.6 D 3.8 Chloride 106 107 Carbon Dioxide 24 26 BUN 11 7 L Creatinine 0.84 0.69 Calcium 9.2 8.6 D Liver Function 03/16/25 Range/Units 04:22 Total Bilirubin 0.3 (0.0-1.0) mg/dL Direct Bilirubin 0.1 (0.0-0.5) mg/dL AST 21 (5-31) U/L ALT 17 (0-31) U/L Alkaline Phosphatase 87 (39-117) U/L Albumin 4.4 (3.5-5.0) g/dL Urine 03/16/25 Range/Units 08:08 Urine Color Yellow Urine Appearance Clear Urine pH 7.0 (5.0-9.0) Ur Specific Agate <= 1.005 (1.005-1.025) Urine Protein Negative (Neg-Trace) mg/dL Urine Glucose (UA) Negative (Negative) mg/dL Imaging CT scan - abdomen: Attestation: I personally reviewed and interpreted this imaging study as follows: (degen spinal dz, kidney stone, thickened bowel lower bowel) Assessment and Plan (1) Crohn's colitis: Qualifiers: Digestive disease complication type: with rectal bleeding Qualified Code(s): K50.111 - Crohn's disease of large intestine with rectal bleeding Status: Acute Plan 1/ Suspected crohn flare, vs infectious excerbation 2/ rectal bleeding could be related to above or to hemorrhoids given hx of recent constipation PLAN: 1/ if diarrhea, GI panel and c diff 2/ commence flagyl anf levo 3/ solumedrol 20 mg q8 hr for 48 hr then tapering regimen of pred 4/ would recommend o/p check on ustekinumab levels, if low may benefit from changing freq or topping up with additional IV dose 5/ temp hold megan wheeler to use prophylactic dose enoxparin, if hgb remains stable tomorrow then can recommence Procedures Date of Service Date of Service: 03/16/25
--- NOTE | 2025-03-16 15:22 | PM.EVENT ---
Event Note Date of Service: 03/16/25 Event Note: 3:10 PM - contacted by Dr. Vieira from gastroenterology service and recommended: Solu-Medrol 20 mg IV every 8 hours for 48 hours then p.o. prednisone taper, GI+CDiff stool panel, and Flagyl and levofloxacin for 7 days. Time Spent With Patient Time: Total time managing care of this patient today ____ minutes.
[2025-03-16] MEDS: metroNIDAZOLE/NS 500 MG/100 ML PIGGYBACK 100 MG IV (16:07)
[2025-03-16] MEDS: 0.9 % Sodium Chloride Flush 3 ML SYRINGE IVFLUSH (16:07)
--- NOTE | 2025-03-16 16:31 | PC.NURSE ---
Addendum entered by Johnathan Hartley RN 03/17/25 13:18: lelo Myers for more effective medication. Provider ordered dilaudid, administered medication per provider order. Original Note: Patient c/o pain rated 8/10, patient requested some tylenol. Administered tylenol per order. Effectiveness pending
[2025-03-17] MEDS: metroNIDAZOLE/NS 500 MG/100 ML PIGGYBACK 100 MG IV ×2 (00:28→08:14)
[2025-03-17] MEDS: 0.9 % Sodium Chloride Flush 3 ML SYRINGE IVFLUSH ×4 (00:33→22:05)
[2025-03-17 03:45] VITALS: BP 118/58; PULSE 56; RESP 18; TEMP 36.6; O2SAT 97
[2025-03-17 05:55] LABS: MANUAL DIFF FLAG NO
[2025-03-17 06:14] LABS: Anion Gap 13 (12-20); Blood Urea Nitrogen 8 mg/dL (9-16); Calcium 9.1 mg/dL (8.4-10.2); Carbon Dioxide 19 mmol/L (22-29); Chloride 109 mmol/L (96-108); Creatinine Clr Calc Pharmacy 97.9; Estimated Glomerular Filt Rate > 60; Potassium 3.8 mmol/L (3.3-5.1); Sodium 137 mmol/L (135-145)
[2025-03-17 06:18] LABS: Hematocrit 35.4 % (37.0-47.0); Hemoglobin 11.5 g/dl (12.0-16.0); Imm Gran Abs Auto 0.04 X10*3/uL (0.00-0.03); Imm Gran Pct Auto 0.5 % (0.0-0.4); Lymphocytes Absolute Auto 1.0 X10*3/uL (1.2-4.9); Mean Corpuscular HGB Conc 32.5 g/dl (31.0-35.0); Mean Corpuscular Hemoglobin 26.5 pg (27.0-33.0); Mean Corpuscular Volume 81.6 fL (80.0-98.0); NRBC Abs Auto 0.000 X10*3/uL (0.0-0.012); NRBC Pct Auto 0.0 /100WBC (0.0-0.2); Platelet Count 222 X10*3/uL (160-400); Red Blood Count 4.34 X10*6/uL (4.20-5.50); White Blood Count 8.7 X10*3/uL (4.8-10.8)
--- NOTE | 2025-03-17 07:16 | PM.GICN ---
History of Present Illness Data of Consult Service Date: 03/17/25 Requesting physician: Maryan Anne Primary Care Provider: Unknown Physician HPI Reason for consult: Crohn's flare 54 YF with Crohn's disease status post reversal ileostomy; on Stelara injections, asthma, essential hypertension, GERD and VTE on Eliquis seen at [facility] on 03/16/25 with 3 day history of constipation. However, after doubling the dose of lactulose she started to experience multiple episodes of bloody (bright red blood) diarrhea (> 7 episodes), left-sided abdominal pain. Pt complained of chills, palpitations, chest pressure and shortness on breath while having diarrhea and denied fever, headaches or pain with urination. She mentioned that after her last reversal surgery she has been experiencing significant constipation requiring digital disimpaction. She does smoke marijuana in occasions. Pt denied alcohol abuse or illicit drug use. In the ED, she was found to have stable vital signs. Blood workup showed no leukocytosis. Hemoglobin is 13.3 and at baseline. Platelets at 198. There are no electrolyte imbalances. CRP is 2.52. Urinalysis showed no evidence of UTI. Abdominal pelvis CT scan showed questionable relapse in the rectum/rectosigmoid colon. It did not show abscesses enteroenteric fistula or obstructive nephrolithiasis. ECG showed normal sinus rhythm without acute ischemic changes. ED tx: LR 2 L bolus, morphine 8 mg IV total, Zofran 4 mg IV, Reglan 10 mg IV03/16/[address] SCAN SHOWED: GASTROINTESTINAL TRACT: Sutures at the rectosigmoid colon with segmental concentric wall thickening extending at the suture site as well as proximal and distally. There is a questionable descensus of the rectum below the perineum/pelvic floor. There are sutures in the distal ileal loops without gross wall thickening. No intestinal obstruction pattern. No pneumatosis intestinalis. No peripheral enhancing fluid collections in the peritoneal cavity. No ascites. No pneumoperitoneum. Terminal ileum is normal. Appendix is normal. No gross enteroenteric fistula. No gross pericolonic edema pattern. ABDOMINAL WALL: Status post abdominal wall mesh placement. LYMPH NODES: Prominent, nonspecific lymph nodes in the mesenteric adjacent to the ascending colon. IMPRESSION: Questionable relapse in the rectum/rectosigmoid colon. No abscess. No gross enteroenteric fistula. Nonobstructing nephrolithiasis, left kidney. [facility] Past Medical History Medical History (Updated 03/16/25 @ 14:42 by Maryan Anne MD) Crohn's colitis Urge incontinence Stricture of colon Normocytic anemia Anxiety Sleep apnea Asthma GERD (gastroesophageal reflux disease) Pulmonary embolism Crohn's disease PTSD (post-traumatic stress disorder) Recurrent major depression-severe Hyperlipidemia Hemorrhagic cyst of ovary Kidney stones Depression Iron deficiency anemia Rheumatoid arthritis Migraine Cancer HTN (hypertension) Surgical History Surgical History History of esophagogastroduodenoscopy (EGD) History of colon resection History of colon resection Hx of dilation and curettage Hx of cystoscopy Hx of cystoscopy Hx of colonoscopy (~10/2018) Hx of endoscopy Social History Social History Household Members: None Housing: Apartment Are you a primary transitional care liaison to a significant other at home: No Do you presently have visiting nurse or other home services: Yes ([employer]) Alcohol intake: never Patient Tobacco Use Status: Former Tobacco user Tobacco use type: Cigarette Cigarettes Per Day: 1 Years Smoked: 10 e-Cigarette/Vaping Use: Former Use Second Hand Smoke Exposure: No Substance Use Type: Marijuana Advance Directives Date on File: 02/13/24 service: No Current occupational status: unemployed and disabled Sexual orientation: Straight/Heterosexual Meds Allergies Allergy/AdvReac Type Severity Reaction Status Date / Time aspirin (ASA) Allergy Intermediate RASH Verified 03/16/25 04:02 azathioprine (From IMURAN) Allergy Intermediate PANCREATIC Verified 03/16/25 04:02 INFLAMMATION ibuprofen (IBUPROFEN) Allergy Intermediate TOLD NOT Verified 03/16/25 04:02 TO TAKE levofloxacin (From LEVAQUIN) Allergy Mild YEAST Verified 03/16/25 04:02 INFECTIONS Active Medications: Current Medications Acetaminophen (Acetaminophen 325 Mg Tablet) 976 mg PO Q6H PRN PRN Reason: Pain, Mild 1-3,fever,headache Last Admin: 03/16/25 16:29 Dose: 976 mg Amlodipine Besylate (Amlodipine Besylate 2.5 Mg Tablet) 2.5 mg PO DAILY [facility]; Protocol Calcium Carbonate (Calcium Carbonate 750 Mg Tab.Chew) 750 mg PO Q4H PRN PRN Reason: Heartburn Clonazepam (Clonazepam 0.5 Mg Tablet) 0.5 mg PO BEDTIME PRN PRN Reason: Anxiety Famotidine (Famotidine 20 Mg Tablet) 20 mg PO BID PRN PRN Reason: abdominal discomfort Fluticasone/Vilanterol (Fluticasone/Vilanterol 200/25 Blst.W.Dev) 1 puff INHALE RDAILY [facility] Folic Acid (Folic Acid 1 Mg Tablet) 1 mg PO DAILY [facility] Gabapentin (Gabapentin 100 Mg Capsule) 100 mg PO BID [facility] Last Admin: 03/16/25 20:01 Dose: 100 mg Hydromorphone HCl (Hydromorphone Hcl 0.5 Mg/0.5 Ml Syringe) 0.5 mg IVPUSH Q4H PRN; Protocol PRN Reason: Pain, Severe (Pain Scale 7-10) Last Admin: 03/17/25 01:57 Dose: 0.5 mg Hydroxyzine HCl (Hydroxyzine Hcl 25 Mg Tablet) 25 mg PO BID PRN PRN Reason: Anxiety Levofloxacin (Levaquin) 750 mg in 150 mls @ 100 mls/hr IV Q24H [facility] Stop: 03/23/25 15:59 Last Infusion: 03/16/25 19:08 Dose: Infused Metronidazole (Flagyl) 500 mg in 100 mls @ 100 mls/hr IV Q8H [facility] Stop: 03/23/25 15:59 Last Infusion: 03/17/25 01:46 Dose: Infused Melatonin (Melatonin 3 Mg Tablet) 6 mg PO BEDTIME PRN PRN Reason: Insomnia Methotrexate (Methotrexate Sodium 2.5 Mg Tablet) 25 mg PO [facility] Methylprednisolone Sodium Succinate (Methylprednisolone Sod Succ 125 Mg/2 Ml Vial) 20 mg IVPUSH Q8H [facility] Stop: 03/18/25 20:59 Last Admin: 03/17/25 05:47 Dose: 20 mg Montelukast Sodium (Montelukast Sodium 10 Mg Tablet) 10 mg PO BEDTIME [facility] Last Admin: 03/16/25 20:01 Dose: 10 mg Multivitamins/Vitamin C (Multivitamin Tablet) 1 tab PO DAILY [facility] Last Admin: 03/16/25 16:06 Dose: 1 tab Ondansetron HCl (Ondansetron Hcl 4 Mg/2 Ml Vial) 4 mg IVPUSH Q8H PRN PRN Reason: Nausea and Vomiting Oxybutynin Chloride (Oxybutynin Chloride Er 5 Mg Tab.Er.24) 15 mg PO DAILY [facility] Risperidone (Risperidone 1 Mg Tablet) 1 mg PO BID [facility] Last Admin: 03/16/25 20:01 Dose: 1 mg Sertraline HCl (Sertraline Hcl 25 Mg Tablet) 25 mg PO DAILY [facility] Sodium Chloride (0.9 % Sodium Chloride Flush 3 Ml Syringe) 3 ml IVFLUSH QSHIFT [facility] Last Admin: 03/17/25 00:33 Dose: 3 ml Topiramate (Topiramate 100 Mg Tablet) 100 mg PO BID [facility] Last Admin: 03/16/25 20:01 Dose: 100 mg Home Medications ?Medication ?Instructions ?Recorded ?Confirmed ?Last Taken ?Type docusate sodium 100 mg capsule 1 cap PO BID PRN Constipation 03/22/21 03/16/25 03/15/25 History montelukast 10 mg tablet 1 tab PO BEDTIME 03/22/21 03/16/25 03/15/25 History multivitamin 1 tab PO QAM 03/22/21 03/16/25 03/15/25 History albuterol sulfate 90 mcg/actuation 2 puff PO Q4H PRN Shortness Of 06/13/21 03/16/25 03/15/25 History aerosol inhaler (ProAir HFA) Breath hydroxyzine HCl 25 mg tablet 1 tab PO BID PRN Anxiety 06/25/21 03/16/25 03/15/25 History budesonide-formoterol HFA 160 2 puff PO BID 09/08/21 03/16/25 03/15/25 History mcg-4.5 mcg/actuation aerosol inhaler (Symbicort) gabapentin 100 mg capsule 100 mg PO BID 01/28/22 03/16/25 03/15/25 History zolpidem 5 mg tablet 5 mg PO BEDTIME PRN insomnia 12/17/23 03/16/25 03/15/25 History acetaminophen 325 mg tablet 650 mg PO Q4H PRN Pain 02/11/24 03/16/25 03/15/25 History (Tylenol) calcium carbonate 500 mg PO BID 02/11/24 03/16/25 03/15/25 History carboxymethylcellulose sodium 1 % 1 drp ophthalmic (eye) BID PRN Dry 02/11/24 03/16/25 03/15/25 History eye liquid gel drops Eye(S) clonazepam 0.5 mg tablet 0.5 mg PO BEDTIME PRN Anxiety 02/11/24 03/16/25 03/15/25 History melatonin 3 mg tablet 3 mg PO BEDTIME PRN Sleep 02/11/24 03/16/25 03/15/25 History topiramate 100 mg tablet 100 mg PO BID 02/11/24 03/16/25 03/15/25 History amlodipine 2.5 mg tablet 2.5 mg PO DAILY PRN Hypertension 03/16/25 03/16/25 03/15/25 History sertraline 25 mg tablet (Zoloft) 25 mg PO DAILY 03/16/25 03/16/25 03/15/25 History ustekinumab 90 mg/mL subcutaneous 90 mg subcut Q4W 03/16/25 03/16/25 02/17/25 History syringe (Stelara) Physical Exam Vital Signs: Vital Signs: Last Vital Signs Temp 97.8 F 03/17/25 03:45 Pulse 56 03/17/25 03:45 Resp 18 03/17/25 03:45 BP 118/58 L 03/17/25 03:45 Pulse Ox 97 03/17/25 03:45 O2 Del Method Room Air 03/17/25 03:45 BMI result Body Mass Index 29.6 Results Labs 03/17/25 05:48 03/17/25 05:48 Labs: Short CBC 03/16/25 03/17/25 Range/Units 13:52 05:48 WBC 7.6 8.7 (4.8-10.8) X10*3/uL Hgb 11.3 L 11.5 L (12.0-16.0) g/dl Hct 35.1 L 35.4 L (37.0-47.0) % Plt Count 198 222 (160-400) X10*3/uL BMP 03/16/25 03/17/25 13:52 05:48 Sodium 139 137 Potassium 3.8 3.8 Chloride 107 109 H Carbon Dioxide 26 19 L BUN 7 L 8 L Creatinine 0.69 0.64 Calcium 8.6 D 9.1 Urine 03/16/25 Range/Units 08:08 Urine Color Yellow Urine Appearance Clear Urine pH 7.0 (5.0-9.0) Ur Specific [place] <= 1.005 (1.005-1.025) Urine Protein Negative (Neg-Trace) mg/dL Urine Glucose (UA) Negative (Negative) mg/dL Procedures Date of Service Date of Service: 03/17/25
[2025-03-17 08:00] VITALS: BP 117/70; PULSE 58; RESP 16; TEMP 36.7; O2SAT 98
[2025-03-17] MEDS: oxyBUTYnin chloride ER 5 MG TAB.ER.24 15 MG PO (08:13)
--- NOTE | 2025-03-17 11:52 | P.PNIM_ITS ---
Subjective Subjective Date of Service: 03/17/25 Interval History: bloody diarrhae Review of Systems abd pain and diarrahae somewhat improving no fevers Physical Exam 2 Exam: Exam: Appearance: Alert.? Oriented X3. cvs: rrr, [id number] . res: clear to auscultation ,no rhonchii or wheezing abd: no rebound or guarding ,mild soarness, bs present. ext pulses present , no cyanosis . neuro: axo3 , nonfocal. Vital Signs: Vital Signs: Last Vital Signs Temp 98.1 F 03/17/25 08:00 Pulse 58 03/17/25 08:00 Resp 16 03/17/25 08:00 BP 117/70 03/17/25 08:00 Pulse Ox 98 03/17/25 08:00 O2 Del Method Room Air 03/17/25 08:00 BMI result Body Mass Index 29.6 Objective Data Active Medications Acetaminophen (Acetaminophen 325 Mg Tablet) 976 mg PO Q6H PRN PRN Reason: Pain, Mild 1-3,fever,headache Last Admin: 03/16/25 16:29 Dose: 976 mg Documented By: ADIEL Amlodipine Besylate (Amlodipine Besylate 2.5 Mg Tablet) 2.5 mg PO DAILY [facility]; Protocol Last Admin: 03/17/25 08:14 Dose: 2.5 mg Documented By: RANDEE Calcium Carbonate (Calcium Carbonate 750 Mg Tab.Chew) 750 mg PO Q4H PRN PRN Reason: Heartburn Clonazepam (Clonazepam 0.5 Mg Tablet) 0.5 mg PO BEDTIME PRN PRN Reason: Anxiety Famotidine (Famotidine 20 Mg Tablet) 20 mg PO BID PRN PRN Reason: abdominal discomfort Fluticasone/Vilanterol (Fluticasone/Vilanterol 200/25 Blst.W.Dev) 1 puff INHALE RDAILY [facility] Last Admin: 03/17/25 07:41 Dose: Not Given Documented By: KENNY Non-Admin Reason: pharmacy called for med Folic Acid (Folic Acid 1 Mg Tablet) 1 mg PO DAILY [facility] Last Admin: 03/17/25 08:13 Dose: 1 mg Documented By: RANDEE Gabapentin (Gabapentin 100 Mg Capsule) 100 mg PO BID [facility] Last Admin: 03/17/25 08:13 Dose: 100 mg Documented By: RANDEE Hydromorphone HCl (Hydromorphone Hcl 0.5 Mg/0.5 Ml Syringe) 0.5 mg IVPUSH Q4H PRN; Protocol PRN Reason: Pain, Severe (Pain Scale 7-10) Last Admin: 03/17/25 01:57 Dose: 0.5 mg Documented By: MANGO Hydroxyzine HCl (Hydroxyzine Hcl 25 Mg Tablet) 25 mg PO BID PRN PRN Reason: Anxiety Levofloxacin (Levaquin) 750 mg in 150 mls @ 100 mls/hr IV Q24H [facility] Stop: 03/23/25 15:59 Last Infusion: 03/16/25 19:08 Dose: Infused Documented By: MANGO Metronidazole (Flagyl) 500 mg in 100 mls @ 100 mls/hr IV Q8H [facility] Stop: 03/23/25 15:59 Last Infusion: 03/17/25 09:50 Dose: Infused Documented By: RANDEE Melatonin (Melatonin 3 Mg Tablet) 6 mg PO BEDTIME PRN PRN Reason: Insomnia Methotrexate (Methotrexate Sodium 2.5 Mg Tablet) 25 mg PO FR [facility] Methylprednisolone Sodium Succinate (Methylprednisolone Sod Succ 125 Mg/2 Ml Vial) 20 mg IVPUSH Q8H [facility] Stop: 03/18/25 20:59 Last Admin: 03/17/25 05:47 Dose: 20 mg Documented By: MANGO Montelukast Sodium (Montelukast Sodium 10 Mg Tablet) 10 mg PO BEDTIME [facility] Last Admin: 03/16/25 20:01 Dose: 10 mg Documented By: MANGO Multivitamins/Vitamin C (Multivitamin Tablet) 1 tab PO DAILY [facility] Last Admin: 03/17/25 08:13 Dose: 1 tab Documented By: RANDEE Ondansetron HCl (Ondansetron Hcl 4 Mg/2 Ml Vial) 4 mg IVPUSH Q8H PRN PRN Reason: Nausea and Vomiting Oxybutynin Chloride (Oxybutynin Chloride Er 5 Mg Tab.Er.24) 15 mg PO DAILY [facility] Last Admin: 03/17/25 08:13 Dose: 15 mg Documented By: RANDEE Risperidone (Risperidone 1 Mg Tablet) 1 mg PO BID [facility] Last Admin: 03/17/25 08:13 Dose: 1 mg Documented By: RANDEE Sertraline HCl (Sertraline Hcl 25 Mg Tablet) 25 mg PO DAILY [facility] Last Admin: 03/17/25 08:13 Dose: 25 mg Documented By: RANDEE Sodium Chloride (0.9 % Sodium Chloride Flush 3 Ml Syringe) 3 ml IVFLUSH QSHIFT [facility] Last Admin: 03/17/25 08:14 Dose: 3 ml Documented By: RANDEE Topiramate (Topiramate 100 Mg Tablet) 100 mg PO BID [facility] Last Admin: 03/17/25 08:14 Dose: 100 mg Documented By: RANDEE Ustekinumab (Ustekinumab 90 Mg/Ml Syringe) 90 mg SUBCUT ONCE ONE Stop: 03/17/25 12:01 Last Admin: 03/17/25 11:38 Dose: 90 mg Documented By: RANDEE Labs 03/17/25 05:48 03/17/25 05:48 Labs: Laboratory Results - last 24 hr 03/16/25 03/16/25 03/17/25 04:22 13:52 05:48 MCV 82.8 81.6 MCH 26.7 L 26.5 L MCHC 32.2 32.5 RDW 16.7 H 16.1 H Plt Count 198 222 MPV 12.6 H 12.9 H Immature Gran % (Auto) 0.5 H Neut % (Auto) 84.6 H Lymph % (Auto) 11.9 L [place] % (Auto) 2.9 Eos % (Auto) 0.0 Baso % (Auto) 0.1 Lymph # (Auto) 1.0 L [place] # (Auto) 0.3 Eos # (Auto) 0.0 Baso # (Auto) 0.0 Abs Immat Gran (auto) 0.04 H Absolute Neuts (auto) 7.3 Absolute Nucleated RBC 0.000 0.000 Nucleated RBC % (auto) 0.0 0.0 Anion Gap 10 L 13 Estim Creat Clear Calc 91.5 97.9 Estimated GFR > 60 > 60 Random Glucose 80 120 H Calcium 8.6 D 9.1 Magnesium 2.0 C-Reactive Protein 2.52 H Assessment and Plan (1) Diarrhea: Status: Acute (2) Bloody diarrhea: Status: Acute Plan 54 y/o woman with PMHx significant for Crohn's disease status post reversal ileostomy + robot assisted laparoscopic lysis of adhesions with resection of colorectal anastomosis; on Stelara admitted with: Crohn's flare involving the left colon. Advance diet as tolerated. Continue Solu-Medrol 60 mg IV daily. Continue IV fluids. Gastroenterology consult -F/U with Dr. Palafox. gastroenterology service and recommended: Solu-Medrol 20 mg IV every 8 hours for 48 hours then p.o. prednisone taper, GI+CDiff stool panel: c diff /gip panel negative except positive for norovirus, stop antibiotics. Gi following Essential hypertension: Continue amlodipine. Mood disorder:Continue Risperdal, topiramate, gabapentin, Atarax and clonazepam. Chronic constipation. Has bloody diarrhea now. Hold lactulose. GERD. Continue PPI. Asthma. Continue home inhalers and montelukast. RA. On methotrexate every Friday. History of VTE. Eliquis on hold due to bloody diarrhea. Restart when able. MARISOL. Nocturnal CPAP. Code status: Full DVT prophylaxis: SCDs ongoing need hospitalization for Crohn's flare treatment with IV fluids and steroids + evaluation by subspecialty. Quality Stroke Does the patient have a stroke diagnosis?: No VTE Prior VTE?: No VTE Risk Level:: Medical - moderate - high VTE Device Contraindication: N/A - Device Ordered VTE Drug Contraindication: N/A - Med Ordered
[2025-03-17 12:02] LABS: CDiff Gene PCR NEGATIVE (Negative)
[2025-03-17 12:10] LABS: E. coli EAEC Not Detected (Not Detect.); E. coli EPEC Not Detected (Not Detect.); E. coli ETEC Not Detected (Not Detect.); E. coli STEC Not Detected (Not Detect.); Shigella sp./EIEC Not Detected (Not Detect.)
--- NOTE | 2025-03-17 15:57 | MHC.CM.PN ---
CM MET WITH PT WITH A ANESTHESIOLOGY PHYSICIAN HE LIVES ALONE AND HAS DAILY REPRESENTATIVE PHLEBOTOMY SERVICES SERVICES SHE USES A CPAP AND NEBULIZER FOR DME HCP ON FILE AND VERIFIED PCP: SALO AVILES DCP: HOME RESUME REPRESENT[employer]IVE [employer]LEBOTOMY SERVICES SERVICES PT WILL ARRANGE TRANSPORT
[2025-03-17 15:59] VITALS: BP 169/70; PULSE 86; RESP 18; TEMP 37; O2SAT 98
[2025-03-17 19:20] VITALS: BP 139/64; PULSE 68; RESP 16; TEMP 36.7; O2SAT 97
[2025-03-17 22:55] VITALS: PULSE 64; RESP 18; O2SAT 97
[2025-03-18] VITALS (7 sets, daily range): BP systolic 124–167; BP diastolic 65–83; PULSE 56–75; RESP 16–21; TEMP 36.4–36.8; O2SAT 97–99
[2025-03-18] MEDS: Fluticasone/Vilanterol 200/25 BLST.W.DEV 1 PUFF INHALE (07:44)
[2025-03-18] MEDS: oxyBUTYnin chloride ER 5 MG TAB.ER.24 15 MG PO (08:34)
[2025-03-18] MEDS: 0.9 % Sodium Chloride Flush 3 ML SYRINGE IVFLUSH ×3 (08:39→20:11)
[2025-03-18 09:33] LABS: Hematocrit 36.8 % (37.0-47.0); Hemoglobin 12.1 g/dl (12.0-16.0)
[2025-03-18 09:45] LABS: Anion Gap 14 (12-20); Blood Urea Nitrogen 16 mg/dL (9-16); Calcium 9.5 mg/dL (8.4-10.2); Carbon Dioxide 18 mmol/L (22-29); Chloride 109 mmol/L (96-108); Creatinine Clr Calc Pharmacy 70.4; Estimated Glomerular Filt Rate > 60; Potassium 3.9 mmol/L (3.3-5.1); Sodium 137 mmol/L (135-145)
--- NOTE | 2025-03-18 15:15 | P.PNIM_ITS ---
Subjective Subjective Date of Service: 03/18/25 Interval History: crohn dis flare /norovirus diarrhae Review of Systems has some abd pain, diararhae improving has some puffiness of face /lateral side ,left side is slightly red also. Physical Exam 2 Exam: Exam: Appearance: Alert.? Oriented X3.? Face : has some puffiness /cheeck areas/mild redness on left cvs: rrr, [id number]. res: clear to auscultation ,no rhonchii or wheezing abd: no rebound or guarding ,nt, bs present. ext pulses present , no cyanosis. neuro: axo3 , nonfocal. Vital Signs: Vital Signs: Last Vital Signs Temp 97.6 F 03/18/25 07:59 Pulse 56 03/18/25 07:59 Resp 16 03/18/25 07:59 BP 124/71 03/18/25 07:59 Pulse Ox 97 03/18/25 07:59 O2 Del Method Room Air 03/18/25 07:59 BMI result Body Mass Index 29.6 Objective Data Active Medications Acetaminophen (Acetaminophen 325 Mg Tablet) 975 mg PO Q6H PRN PRN Reason: Pain, Mild 1-3,fever,headache Last Admin: 03/17/25 15:29 Dose: 975 mg Documented By: RANDEE Amlodipine Besylate (Amlodipine Besylate 2.5 Mg Tablet) 2.5 mg PO DAILY [facility]; Protocol Last Admin: 03/18/25 08:34 Dose: 2.5 mg Documented By: RANDEE Calcium Carbonate (Calcium Carbonate 750 Mg Tab.Chew) 750 mg PO Q4H PRN PRN Reason: Heartburn Clonazepam (Clonazepam 0.5 Mg Tablet) 0.5 mg PO BEDTIME PRN PRN Reason: Anxiety Last Admin: 03/17/25 21:51 Dose: 0.5 mg Documented By: MANGO Enoxaparin Sodium (Enoxaparin Sodium 40 Mg/0.4 Ml Syringe) 40 mg SUBCUT Q24H [facility] Last Admin: 03/18/25 08:34 Dose: 40 mg Documented By: RANDEE Famotidine (Famotidine 20 Mg Tablet) 20 mg PO BID PRN PRN Reason: abdominal discomfort Fluticasone/Vilanterol (Fluticasone/Vilanterol 200/25 Blst.W.Dev) 1 puff INHALE RDAILY [facility] Last Admin: 03/18/25 07:44 Dose: 1 puff Documented By: KENNY Folic Acid (Folic Acid 1 Mg Tablet) 1 mg PO DAILY [facility] Last Admin: 03/18/25 08:34 Dose: 1 mg Documented By: RANDEE Gabapentin (Gabapentin 100 Mg Capsule) 100 mg PO BID [facility] Last Admin: 03/18/25 08:40 Dose: Not Given Documented By: RANDEE Non-Admin Reason: Patient Refused Hydromorphone HCl (Hydromorphone Hcl 0.5 Mg/0.5 Ml Syringe) 0.5 mg IVPUSH Q4H PRN; Protocol PRN Reason: Pain, Severe (Pain Scale 7-10) Last Admin: 03/18/25 08:44 Dose: 0.5 mg Documented By: RANDEE Hydroxyzine HCl (Hydroxyzine Hcl 25 Mg Tablet) 25 mg PO BID PRN PRN Reason: Anxiety Melatonin (Melatonin 3 Mg Tablet) 6 mg PO BEDTIME PRN PRN Reason: Insomnia Last Admin: 03/17/25 21:51 Dose: 6 mg Documented By: MANGO Methotrexate (Methotrexate Sodium 2.5 Mg Tablet) 25 mg PO FR [facility] Last Admin: 03/18/25 09:21 Dose: 25 mg Documented By: RANDEE Methylprednisolone Sodium Succinate (Methylprednisolone Sod Succ 125 Mg/2 Ml Vial) 20 mg IVPUSH Q8H [facility] Stop: 03/18/25 20:59 Last Admin: 03/18/25 05:35 Dose: 20 mg Documented By: MANGO Montelukast Sodium (Montelukast Sodium 10 Mg Tablet) 10 mg PO BEDTIME [facility] Last Admin: 03/17/25 21:51 Dose: 10 mg Documented By: MANGO Multivitamins/Vitamin C (Multivitamin Tablet) 1 tab PO DAILY [facility] Last Admin: 03/18/25 08:34 Dose: 1 tab Documented By: RANDEE Ondansetron HCl (Ondansetron Hcl 4 Mg/2 Ml Vial) 4 mg IVPUSH Q8H PRN PRN Reason: Nausea and Vomiting Oxybutynin Chloride (Oxybutynin Chloride Er 5 Mg Tab.Er.24) 15 mg PO DAILY [facility] Last Admin: 03/18/25 08:34 Dose: 15 mg Documented By: RANDEE Prednisone (Prednisone 20 Mg Tablet) 40 mg PO DAILY [facility] Risperidone (Risperidone 1 Mg Tablet) 1 mg PO BID [facility] Last Admin: 03/18/25 08:34 Dose: 1 mg Documented By: RANDEE Sertraline HCl (Sertraline Hcl 25 Mg Tablet) 25 mg PO DAILY [facility] Last Admin: 03/18/25 08:34 Dose: 25 mg Documented By: RANDEE Sodium Chloride (0.9 % Sodium Chloride Flush 3 Ml Syringe) 3 ml IVFLUSH QSHIFT [facility] Last Admin: 03/18/25 08:39 Dose: 3 ml Documented By: RANDEE Topiramate (Topiramate 100 Mg Tablet) 100 mg PO BID [facility] Last Admin: 03/18/25 08:34 Dose: 100 mg Documented By: RANDEE Labs 03/18/25 09:20 03/18/25 09:20 Labs: Laboratory Results - last 24 hr 03/16/25 03/18/25 13:52 09:20 Anion Gap 14 Estim Creat Clear Calc 70.4 Estimated GFR > 60 Random Glucose 131 H Calcium 9.5 C-React Prot High Sens >20.0 H Assessment and Plan (1) Diarrhea: Status: Acute (2) Bloody diarrhea: Status: Acute Plan 54 y/o woman with PMHx significant for Crohn's disease status post reversal ileostomy + robot assisted laparoscopic lysis of adhesions with resection of colorectal anastomosis; on Stelara admitted with: Crohn's flare involving the left colon versus norovirus diarrhea Gastroenterology consult -F/U with Dr. Palafox. gastroenterology service and recommended: Solu-Medrol 20 mg IV every 8 hours ,has facial puffiness - patient's Solu-Medrol switched to p.o. prednisone. GI+CDiff stool panel: c diff /gip panel negative except positive for norovirus, stop antibiotics. Gi following Essential hypertension: Continue amlodipine. Mood disorder:Continue Risperdal, topiramate, gabapentin, Atarax and clonazepam. Chronic constipation. Has bloody diarrhea now. Hold lactulose. GERD. Continue PPI. Asthma. Continue home inhalers and montelukast. RA. On methotrexate every Friday. History of VTE. Eliquis on hold due to bloody diarrhea. Restart when able. MARISOL. Nocturnal CPAP. DVT prophylaxis: SCDs ongoing need hospitalization for Crohn's flare treatment with IV fluids and steroids + evaluation by subspecialty. Quality Stroke Does the patient have a stroke diagnosis?: No VTE Prior VTE?: No VTE Risk Level:: Medical - moderate - high VTE Device Contraindication: N/A - Device Ordered VTE Drug Contraindication: N/A - Med Ordered
--- NOTE | 2025-03-18 16:04 | PC.NURSE ---
Patient was upset and complaining about getting a dose of Levofloxacin in the ED, States he has an allergy. Daughter also very upset. MD Senior notified and spoke with patient with windows server engineer Jame. Educated that patient can get her medical records from the medical record department.
--- NOTE | 2025-03-18 17:01 | PC.NURSE ---
Patient wanted to leave AMA then changed her mind and wants to stay.
[2025-03-19 03:20] VITALS: BP 138/72; PULSE 80; RESP 18; TEMP 36.6; O2SAT 95
[2025-03-19 07:46] VITALS: BP 119/62; PULSE 89; RESP 12; TEMP 36.1; O2SAT 97
[2025-03-19] MEDS: oxyBUTYnin chloride ER 5 MG TAB.ER.24 15 MG PO (08:04)
[2025-03-19] MEDS: 0.9 % Sodium Chloride Flush 3 ML SYRINGE IVFLUSH ×3 (08:07→19:18)
[2025-03-19] MEDS: Fluticasone/Vilanterol 200/25 BLST.W.DEV 1 PUFF INHALE (08:57)
[2025-03-19 08:59] VITALS: PULSE 64; RESP 14; O2SAT 97
--- NOTE | 2025-03-19 12:54 | P.PNIM_ITS ---
Subjective Subjective Date of Service: 03/19/25 Interval History: crohn/norovirus flare Review of Systems has some abd pain diarrhae imporved facial puffiness also improving Review of Systems: Yes all other systems are reviewed and are negative Physical Exam 2 Exam: Exam: Appearance: Alert.? Oriented X3.? seems less anxious than yesterday Face : facial puffiness/flushing -improving cvs: rrr, [id number]. res: clear to auscultation ,no rhonchii or wheezing abd: no rebound or guarding ,nt, bs present. ext pulses present , no cyanosis. neuro: axo3 , nonfocal. Vital Signs: Vital Signs: Last Vital Signs Temp 96.9 F 03/19/25 07:46 Pulse 64 03/19/25 08:59 Resp 14 03/19/25 08:59 BP 119/62 03/19/25 07:46 Pulse Ox 97 03/19/25 07:46 O2 Del Method Room Air 03/19/25 07:46 BMI result Body Mass Index 29.6 Objective Data Active Medications Acetaminophen (Acetaminophen 325 Mg Tablet) 975 mg PO Q6H PRN PRN Reason: Pain, Mild 1-3,fever,headache Last Admin: 03/17/25 15:29 Dose: 975 mg Documented By: RANDEE Amlodipine Besylate (Amlodipine Besylate 2.5 Mg Tablet) 2.5 mg PO DAILY [facility]; Protocol Last Admin: 03/19/25 08:05 Dose: 2.5 mg Documented By: RUKHSANA Calcium Carbonate (Calcium Carbonate 750 Mg Tab.Chew) 750 mg PO Q4H PRN PRN Reason: Heartburn Clonazepam (Clonazepam 0.5 Mg Tablet) 0.5 mg PO BEDTIME PRN PRN Reason: Anxiety Last Admin: 03/18/25 21:06 Dose: 0.5 mg Documented By: MARIO ALBERTO Diphenhydramine HCl (Diphenhydramine Hcl 25 Mg Capsule) 25 mg PO Q6H PRN PRN Reason: Itching Enoxaparin Sodium (Enoxaparin Sodium 40 Mg/0.4 Ml Syringe) 40 mg SUBCUT Q24H JUANCHO Last Admin: 03/19/25 08:05 Dose: 40 mg Documented By: RUKHSANA Famotidine (Famotidine 20 Mg Tablet) 20 mg PO BID PRN PRN Reason: abdominal discomfort Fluticasone/Vilanterol (Fluticasone/Vilanterol 200/25 Blst.W.Dev) 1 puff INHALE RDAILY [facility] Last Admin: 03/19/25 08:57 Dose: 1 puff Documented By: CHARLEE Folic Acid (Folic Acid 1 Mg Tablet) 1 mg PO DAILY [facility] Last Admin: 03/19/25 08:05 Dose: 1 mg Documented By: RUKHSANA Gabapentin (Gabapentin 100 Mg Capsule) 100 mg PO BID [facility] Last Admin: 03/19/25 08:11 Dose: Not Given Documented By: RUKHSANA Non-Admin Reason: Patient Refused Hydromorphone HCl (Hydromorphone Hcl 0.5 Mg/0.5 Ml Syringe) 0.5 mg IVPUSH Q4H PRN; Protocol PRN Reason: Pain, Severe (Pain Scale 7-10) Last Admin: 03/19/25 08:15 Dose: 0.5 mg Documented By: RUKHSANA Hydroxyzine HCl (Hydroxyzine Hcl 25 Mg Tablet) 25 mg PO BID PRN PRN Reason: Anxiety Last Admin: 03/18/25 16:07 Dose: 25 mg Documented By: DAYRON Melatonin (Melatonin 3 Mg Tablet) 6 mg PO BEDTIME PRN PRN Reason: Insomnia Last Admin: 03/18/25 21:06 Dose: 6 mg Documented By: MARIO ALBERTO Methotrexate (Methotrexate Sodium 2.5 Mg Tablet) 25 mg PO FR [facility] Last Admin: 03/18/25 09:21 Dose: 25 mg Documented By: RANDEE Montelukast Sodium (Montelukast Sodium 10 Mg Tablet) 10 mg PO BEDTIME [facility] Last Admin: 03/18/25 21:06 Dose: 10 mg Documented By: MARIO ALBERTO Multivitamins/Vitamin C (Multivitamin Tablet) 1 tab PO DAILY [facility] Last Admin: 03/19/25 08:05 Dose: 1 tab Documented By: RUKHSANA Ondansetron HCl (Ondansetron Hcl 4 Mg/2 Ml Vial) 4 mg IVPUSH Q8H PRN PRN Reason: Nausea and Vomiting Oxybutynin Chloride (Oxybutynin Chloride Er 5 Mg Tab.Er.24) 15 mg PO DAILY [facility] Last Admin: 03/19/25 08:04 Dose: 15 mg Documented By: RUKHSANA Prednisone (Prednisone 20 Mg Tablet) 40 mg PO DAILY [facility] Last Admin: 03/19/25 08:05 Dose: 40 mg Documented By: RUKHSANA Risperidone (Risperidone 1 Mg Tablet) 1 mg PO BID [facility] Last Admin: 03/19/25 08:06 Dose: 1 mg Documented By: RUKHSANA Sertraline HCl (Sertraline Hcl 25 Mg Tablet) 25 mg PO DAILY [facility] Last Admin: 03/19/25 08:06 Dose: 25 mg Documented By: RUKHSANA Sodium Chloride (0.9 % Sodium Chloride Flush 3 Ml Syringe) 3 ml IVFLUSH QSHIFT [facility] Last Admin: 03/19/25 08:07 Dose: 3 ml Documented By: RUKHSANA Topiramate (Topiramate 100 Mg Tablet) 100 mg PO BID [facility] Last Admin: 03/19/25 08:06 Dose: 100 mg Documented By: RUKHSANA Labs 03/18/25 09:20 03/18/25 09:20 Assessment and Plan (1) Diarrhea: Status: Acute (2) Bloody diarrhea: Status: Acute Plan 54 y/o woman with PMHx significant for Crohn's disease status post reversal ileostomy + robot assisted laparoscopic lysis of adhesions with resection of colorectal anastomosis; on Stelara admitted with: Crohn's flare involving the left colon versus norovirus diarrhea Gastroenterology consult -F/U with Dr. Palafox. gastroenterology service and recommended: continue to p.o. prednisone. Patient says diarrhea seems to be improved, abdominal pain also improving, still unable to take much p.o. yet. Also explained to her that Levaquin side effects listed days yeast infection, not any other allergic reaction. GI+CDiff stool panel: c diff /gip panel negative except positive for norovirus, stop antibiotics. Gi following Essential hypertension: Continue amlodipine. Mood disorder:Continue Risperdal, topiramate, gabapentin, Atarax and clonazepam. Chronic constipation. Has bloody diarrhea now. Hold lactulose. GERD. Continue PPI. Asthma. Continue home inhalers and montelukast. RA. On methotrexate every Friday. History of VTE. Eliquis on hold due to bloody diarrhea. Restart when able. MARISOL. Nocturnal CPAP. DVT prophylaxis: SCDs ongoing need hospitalization for Crohn's flare treatment with IV fluids and steroids + evaluation by subspecialty. Unable to tolerate p.o. yet. Above management discussed with the patient in detail length with the help of translator and interpreter yesterday and today. Time spent 50 minute Quality Stroke Does the patient have a stroke diagnosis?: No VTE Prior VTE?: No VTE Risk Level:: Medical - moderate - high VTE Device Contraindication: N/A - Device Ordered VTE Drug Contraindication: N/A - Med Ordered
[2025-03-19 16:51] VITALS: BP 135/77; PULSE 71; RESP 18; TEMP 36.1; O2SAT 97
[2025-03-19 19:54] VITALS: BP 113/67; PULSE 67; RESP 18; TEMP 36.8; O2SAT 98
[2025-03-19 23:01] VITALS: PULSE 68; RESP 25; O2SAT 98
[2025-03-20 04:00] VITALS: BP 133/76; PULSE 67; RESP 18; TEMP 36.8; O2SAT 98
[2025-03-20 07:51] VITALS: BP 110/72; PULSE 70; RESP 12; TEMP 36.8; O2SAT 99
[2025-03-20] MEDS: oxyBUTYnin chloride ER 5 MG TAB.ER.24 15 MG PO (08:59)
[2025-03-20] MEDS: 0.9 % Sodium Chloride Flush 3 ML SYRINGE IVFLUSH (09:00)
--- NOTE | 2025-03-20 12:09 | P.DS_ITS ---
DS: Providers Provider Date of Service: 03/20/25 Date of admission: 03/16/25 12:55 Date of discharge: 03/20/25 Primary care physician: Zane Santos MD Consults: 03/16/25 14:21 Consult to Gastroenterology Routine Consulting Provider: Libby Palafox Reason for consultation: Crohn's flare Has provider been notified: Yes Attending physician on discharge: Casandra Senior Discharging clinician: Casandra Senior DS: Diagnosis Discharge Diagnosis (1) Diarrhea: Status: Acute (2) Bloody diarrhea: Status: Acute DS: Summary Hospital Course Hospital Course: HPI:54 years old woman with past medical history significant for Crohn's disease status post reversal ileostomy; on infections, asthma, essential hypertension, GERD and VTE on Eliquis presents to the emergency department complaining of 3 day history of constipation. However, after doubling the dose of lactulose she started to experience multiple episodes of bloody (bright red blood) diarrhea (> 7 episodes), left-sided abdominal pain. She did not report fever. She experiences chills, palpitations, chest pressure and shortness on breath while having diarrhea. She did not report any headache. She denied pain with urination. She mentioned that after her last reversal surgery she has been experiencing significant constipation requiring digital disimpaction. She does smoke marijuana in occasions. Denied alcohol abuse or illicit drug use. In the ED, she was found to have stable vital signs. Blood workup showed no leukocytosis. Hemoglobin is 13.3 and at baseline. Platelets at 198. There are no electrolyte imbalances. CRP is 2.52. Urinalysis showed no evidence of UTI. Abdominal pelvis CT scan showed questionable relapse in the rectum/rectosigmoid colon. It did not show abscesses enteroenteric fistula or obstructive nephrolithiasis. ECG showed normal sinus rhythm without acute ischemic changes. ED tx: LR 2 L bolus, morphine 8 mg IV total, Zofran 4 mg IV, Reglan 10 mg IV. Hospital course: 54 y/o woman with PMHx significant for Crohn's disease status post reversal ileostomy + robot assisted laparoscopic lysis of adhesions with resection of colorectal anastomosis; on la admitted with: Crohn's flare involving the left colon versus norovirus diarrhea Gastroenterology consult -F/U with Dr. Palafox. gastroenterology service and recommended: continue to p.o. prednisone.Patient says diarrhea seems to be improved, abdominal pain also improving, still unable to take much p.o. yet.Also explained to her that Levaquin side effects listed days yeast infection, not any other allergic reaction. She received fluconazole as per patient request. Denies any vaginal complaints. GI+CDiff stool panel: c diff /gip panel negative except positive for norovirus, stop antibiotics. Patient abdominal pain and diarrhea seems to be improved significantly with supportive care , tolerating diet, no bleeding anymore. H&H stable 12.1/36.8. mild low bicarb : dur to dec po intake ,ivf , diarrhae : po intake imporving , no anion gap. moniter bmp outpatient. Tele Gi receomended prednisone taper by 10 mg q4days. Facial puffiness seems to be improved -likely due to steroid use . Patient had some subjective itchiness but during physical exams and seeing patient during hospitalization-did not see itching . She requested for Benadryl so limited supply of Benadryl given at patient request. History of VTE.: start Eliquis outpatient. plan: Prednisone taper as prescribed. continue home luxatives also since diarrhae improved. moniter cbc /bmp considering recent diarrhae. Benadryl p.r.n. limited supply given . Patient is to follow-up with GI outpatient Dr. Palafox's office. Above management discussed with the patient in detail length with the help of lang interpreter. Assessment and plan coordination time spent 45 minute. All questions answered. Staff was present during the whole conversation. Time Attestation Total time managing care of this patient today: 40 mintues. Discharge Coordination Time (in mins): 40 min Quality: Safe Use of Opioids Does Pt have an Active Cancer Diagnosis on the Problem List?: No Quality: Stroke Does the patient have a stroke diagnosis?: No Physical Exam Exam: Exam: Appearance: Alert.? Oriented X3. Face : facial puffiness/flushing improved. cvs: rrr, [id number]. res: clear to auscultation ,no rhonchii or wheezing abd: no rebound or guarding ,nt, bs present. ext pulses present , no cyanosis. neuro: axo3 , nonfocal. Vital Signs: Vital Signs: Last Vital Signs Temp 98.2 F 03/20/25 07:51 Pulse 70 03/20/25 07:51 Resp 12 03/20/25 07:51 BP 110/72 03/20/25 07:51 Pulse Ox 99 03/20/25 07:51 O2 Del Method Room Air 03/20/25 07:51 O2 Flow Rate 2 03/20/25 04:00 BMI result Body Mass Index 29.6 DS: Data Data Completed and Pending Completed studies during hospitalization [Text1]: Procedures Dilation of Sigmoid Colon, Via Natural or Artificial Opening Endoscopic (09/08/21) Excision of Ascending Colon, Via Natural or Artificial Opening Endoscopic, Diagnostic (03/01/21) Excision of Cecum, Via Natural or Artificial Opening Endoscopic, Diagnostic (03/01/21) Excision of Descending Colon, Via Natural or Artificial Opening Endoscopic, Diagnostic (03/01/21) Excision of Duodenum, Via Natural or Artificial Opening Endoscopic, Diagnostic (03/01/21) Excision of Rectum, Via Natural or Artificial Opening Endoscopic (03/01/21) Excision of Sigmoid Colon, Via Natural or Artificial Opening Endoscopic, Diagnostic (09/08/21) Excision of Stomach, Pylorus, Via Natural or Artificial Opening Endoscopic, Diagnostic (03/01/21) Excision of Transverse Colon, Via Natural or Artificial Opening Endoscopic, Diagnostic (03/01/21) Extraction of Esophagus, Via Natural or Artificial Opening Endoscopic, Diagnostic (03/01/21) Imaging Chest x-ray: Radiologist's impression: ITS Impressions Abdomen/Pelvis CT 03/16/25 07:42 IMPRESSION: Questionable relapse in the rectum/rectosigmoid colon. No abscess. No gross enteroenteric fistula. Nonobstructing nephrolithiasis, left kidney. Fleischner guidelines were followed. Discharge Plan Discharge Anticipated Discharge Date/Time: 03/20/25 11:31 Patient Disposition: Home, Self-Care Discharge Diagnosis: Crohn flare, norovirus . Referrals: Libby Palafox MD [Physician, Gastroenterology] - 1 Week Name,MD Zane [Primary Care Provider, Internal Medicine] - 1 Week Discharge Medications: New diphenhydramine HCl [Banophen] 25 mg Capsule 25 mg PO Q6H PRN (Reason: Itching) Qty: 6 0RF prednisone 10 mg tablet See Taper PO DIRECTED Qty: 32 0RF Taper: Prednisone 40 mg daily for 2 Days and 0 Hour 30 mg daily for 4 Days and 0 Hour 20 mg daily for 4 Days and 0 Hour 10 mg daily for 4 Days and 0 Hour Rx Instructions: see taper instructions Continued vitamin B complex-folic acid [B Complex 1 (with folic acid)] 0.4 mg tablet 1 tab PO QAM Qty: 30 2RF folic acid 1 mg tablet 1 mg PO DAILY 60 Days Qty: 60 3RF Rx Instructions: Take 1 tablet daily oxybutynin chloride 15 mg tablet extended release 24hr 15 mg PO DAILY 30 Days Qty: 30 1RF methotrexate sodium 2.5 mg tablet 25 mg PO FR 90 Days Qty: 130 1RF multivitamin Tablet 1 tab PO QAM docusate sodium 100 mg capsule 1 cap PO BID PRN (Reason: Constipation) montelukast 10 mg tablet 1 tab PO BEDTIME risperidone 1 mg Tablet 1 mg PO BID Qty: 60 0RF albuterol sulfate [ProAir HFA] 90 mcg/actuation HFA aerosol inhaler 2 puff PO Q4H PRN (Reason: Shortness Of Breath) hydroxyzine HCl 25 mg tablet 1 tab PO BID PRN (Reason: Anxiety) Eliquis 2.5 mg Tablet 2.5 mg PO BID Qty: 60 6RF budesonide-formoterol [Symbicort] 160-4.5 mcg/actuation HFA aerosol inhaler 2 puff PO BID famotidine [Pepcid] 20 mg tablet 20 mg PO BID PRN (Reason: abdominal discomfort) Qty: 60 0RF cyclobenzaprine 10 mg tablet 10 mg PO TID PRN (Reason: muscle spasm) Qty: 12 0RF acetaminophen [Tylenol] 325 mg Tablet 650 mg PO Q4H PRN (Reason: Pain) melatonin 3 mg Tablet 3 mg PO BEDTIME PRN (Reason: Sleep) calcium carbonate 500 mg calcium (1,250 mg) Tablet,Chewable 500 mg PO BID carboxymethylcellulose sodium 1 % Drops, Liquid Gel 1 drp OPHTHALMIC (EYE) BID PRN (Reason: Dry Eye(S)) clonazepam 0.5 mg Tablet 0.5 mg PO BEDTIME PRN (Reason: Anxiety) Rx Instructions: administer 30 minutes before bedtime topiramate 100 mg tablet 100 mg PO BID ondansetron 4 mg tablet,disintegrating 4 mg PO Q6-8H PRN (Reason: nausea and vomiting) Qty: 14 0RF amlodipine 2.5 mg tablet 2.5 mg PO DAILY PRN (Reason: Hypertension) sertraline [Zoloft] 25 mg tablet 25 mg PO DAILY ustekinumab [Stelara] 90 mg/mL Syringe 90 mg SUBCUT Q4W gabapentin 100 mg capsule 100 mg PO BID zolpidem 5 mg tablet 5 mg PO BEDTIME PRN (Reason: insomnia) lactulose 20 gram/30 mL solution 20 g PO BID Qty: 1800 2RF Discharge Orders: Discharge Order (Routine); Ordered 03/20/25 Ordered By: Casandra Senior Diet: Advance to usual diet Activity on Discharge: As tolerated Stand Alone Forms: Patient Portal Discharge page Print Language: Telugu Other Ambulatory Orders: Basic Metabolic Panel (Routine) Timeframe: 1 Week Facility: [facility] - Location: Laboratory Ordered By: Casandra Senior Complete Blood Count no Diff (Routine) Timeframe: 1 Week Facility: [facility] - Location: Laboratory Ordered By: Casandra Senior Care Plan Goals: Prednisone taper as prescribed. moniter cbc /bmp considering recent diarrhae. Benadryl p.r.n. limited supply given . Patient is to follow-up with GI outpatient Dr. Palafox's office. Health Concerns: As above. Plan of Treatment: As above. Assessment: As above. Patient Instructions: Crohn Disease (DC), Acute Diarrhea (GEN) Discharge Date/Time: 03/20/25 13:54
--- NOTE | 2025-03-20 12:14 | MHC.CM.PN ---
PT CLEARED TO [facility] TODAY WITH NO NEW SERVICES VIA SELF ARRANGED TRANSPORT
== END 2025-03-20 13:54 | disposition home or self-care (01) | DRG 245 ==
LOC: HO.ED 13:11 → HO.EDOVER 13:28 → HO.S3 16:37
PROVIDERS: Emergency Medicine; Internal Medicine Gastroenterology; Admitting Provider Internal Medicine; Emergency Provider Emergency Medicine; PCP Internal Medicine Geriatric Medicine; Visit Provider Internal Medicine
DX: K50.111 Crohn's disease of large intestine with rectal bleeding (principal); A08.11 Acute gastroenteropathy due to Norwalk agent; I10 Essential (primary) hypertension; F39 Unspecified mood [affective] disorder; J45.909 Unspecified asthma, uncomplicated; G47.33 Obstructive sleep apnea (adult) (pediatric); M06.9 Rheumatoid arthritis, unspecified; K59.09 Other constipation; K21.9 Gastro-esophageal reflux disease without esophagitis; Z79.01 Long term (current) use of anticoagulants; Z87.891 Personal history of nicotine dependence; Z86.718 Personal history of other venous thrombosis and embolism; Z79.631 Long term (current) use of antimetabolite agent; Z79.620 Long term (current) use of immunosuppressive biologic; Z79.899 Other long term (current) drug therapy
CPT/HCPCS: 36415; 74177; 80048; 80053; 80299; 81001; 82248; 83520; 83690; 83735; 85014; 85018; 85025; 85027; 86140; 86141; 87493; 87507; 93005; 94640; 94660; 94664; 99285; J1171; J1650; J1836; J1956; J2270; J2405; J2765; J2919; J3357; J7120; Q9967

== ENCOUNTER → 2025-03-16 04:16 | Outpatient (BNV) | payer MEDICAID, SELFPAY | PROVIDERS: Admitting Provider Internal Medicine; Emergency Provider Emergency Medicine; Visit Provider Internal Medicine Cardiovascular Disease | DX: R00.2 Palpitations (principal) | CPT/HCPCS: 93010 ==

== ENCOUNTER → 2025-03-16 06:35 | Outpatient (BNV) | payer MEDICAID, SELFPAY | PROVIDERS: Emergency Provider Emergency Medicine; Visit Provider Radiology Diagnostic Radiology | DX: K62.5 Hemorrhage of anus and rectum (principal) | CPT/HCPCS: 74177 ==

== ENCOUNTER → 2025-03-16 12:55 | Outpatient (BNV) | payer MEDICAID, SELFPAY | PROVIDERS: Admitting Provider Internal Medicine; Emergency Provider Emergency Medicine; Visit Provider Internal Medicine | DX: R19.7 Diarrhea, unspecified (principal) | CPT/HCPCS: 99223; 99231; 99232; 99239; 99499 ==

== ENCOUNTER → 2025-03-16 12:55 | Outpatient (BNV) | payer MEDICAID, SELFPAY | PROVIDERS: Admitting Provider Internal Medicine; Emergency Provider Emergency Medicine; Visit Provider Internal Medicine Gastroenterology | DX: K50.111 Crohn's disease of large intestine with rectal bleeding (principal) | CPT/HCPCS: 99223 ==

== ENCOUNTER 2025-04-22 23:35 | Inpatient (IN) | payer MEDICAID, SELFPAY ==
--- NOTE | ~2025-04-22 | CT_ITS ---
CLINICAL HISTORY: Abdo pain, crohns dz CT abdomen and pelvis with contrast Comparison: CT/SR - CT ABDOMEN PELVIS W IV CON - 03/16/25 07:42 EDT Findings: No consolidation or effusion. The gallbladder and solid organs are within normal limits. No hydronephrosis or hydroureter. Nonobstructing left renal calculus. No bowel obstruction, pneumoperitoneum, or pneumatosis. There are postsurgical changes of the bowel at the lower abdomen. Moderate proximal colonic stool burden. Circumferential bowel wall thickening present at the left colon and rectum. No pericolonic abscess. Mesh material in place at the anterior abdominal wall, suggesting prior hernia repair. Pelvic contents unremarkable. The bladder is minimally distended with fluid, limiting its evaluation. Normal appendix. No acute fracture visualized. IMPRESSION: 1. Circumferential bowel wall thickening present at the left colon and rectum, consistent with proctocolitis. This may be related to Crohn's disease given the patient's history. No bowel obstruction. No pericolonic abscess. 2. Moderate proximal colonic stool burden. 3. Nonobstructing left renal calculus. No hydronephrosis. This document has been electronically signed by: Yovani Barnett MD on 04/23/2025 02:29:11
--- NOTE | ~2025-04-22 | CT_ITS ---
CLINICAL HISTORY: pain CT abdomen and pelvis with contrast Comparison: CT/REG/SR - CT ABDOMEN PELVIS W IV CON - 04/23/25 01:[address]/SR - CT ABDOMEN PELVIS W IV CON - 03/16/25 07:42 EDT Findings: The lung bases are clear. The liver, gallbladder, pancreas, spleen, adrenal glands, and kidneys are unremarkable. Patient is status post sigmoid colectomy with a colocolonic anastomosis. There is mild wall thickening of the distal colon stable to slightly improved from the prior CT consistent with mild colitis. The gastrointestinal tract is otherwise unremarkable. Patient is status post ventral hernia repair with a mesh. Uterus and adnexa are unremarkable. There are no enlarged lymph nodes. The aorta is normal in diameter. There is no fracture or suspicious lytic or sclerotic lesion. IMPRESSION: Mild wall thickening of the distal colon consistent with mild colitis stable to slightly improved from the prior CT. This document has been electronically signed by: Brett Buckley MD on 04/25/2025 04:17:51
[2025-04-22 23:39] VITALS: BP 126/52; PULSE 77; O2SAT 95
[2025-04-22 23:50] VITALS: BP 126/79; PULSE 68; RESP 17; O2SAT 96; BMI 26.5
[2025-04-22 23:55] VITALS: BP 126/79; PULSE 68; RESP 17; O2SAT 96
[2025-04-23] VITALS (12 sets, daily range): BP systolic 106–149; BP diastolic 56–76; PULSE 58–88; RESP 12–24; TEMP 36.3–37.2; O2SAT 95–99; BMI 26.8; BMI 27.2
--- NOTE | 2025-04-23 00:16 | ED.GENADULT ---
HPI - General Adult General Chief complaint: Abdominal Pain Stated complaint: ABDOMINAL PAIN FROM CROHNS DISEASE Time Seen by Provider: 04/23/25 00:15 History of Present Illness ED Provider: Lorraine MEJIA narrative: The patient is a 54-year-old woman with a history of Crohn's disease and also multiple sclerosis who says that she has been having pain in her abdomen for the last several days that she says is different from her usual Crohn's pain. She feels the pain primarily on the left side of her abdomen but she also feels that in her lower abdomen it extends into the right lower quadrant as well. She says that the pain has been associated with frequent loose stools to the point where she is wearing a diaper because of the loose stools. She describes her stools as unusual, sometimes whitish, containing mucus, an often bloody. She thinks she had a fever yesterday on with a temperature of 100.4 degrees. She denies being on antibiotics recently. She has been nauseated. Related Data Home Medications ?Medication ?Instructions ?Recorded ?Confirmed docusate sodium 100 mg capsule 1 cap PO BID PRN Constipation 03/22/21 03/16/25 montelukast 10 mg tablet 1 tab PO BEDTIME 03/22/21 03/16/25 multivitamin 1 tab PO QAM 03/22/21 03/16/25 albuterol sulfate 90 mcg/actuation 2 puff PO Q4H PRN Shortness Of 06/13/21 03/16/25 aerosol inhaler (ProAir HFA) Breath hydroxyzine HCl 25 mg tablet 1 tab PO BID PRN Anxiety 06/25/21 03/16/25 budesonide-formoterol HFA 160 2 puff PO BID 09/08/21 03/16/25 mcg-4.5 mcg/actuation aerosol inhaler (Symbicort) gabapentin 100 mg capsule 100 mg PO BID 01/28/22 03/16/25 zolpidem 5 mg tablet 5 mg PO BEDTIME PRN insomnia 12/17/23 03/16/25 acetaminophen 325 mg tablet 650 mg PO Q4H PRN Pain 02/11/24 03/16/25 (Tylenol) calcium carbonate 500 mg PO BID 02/11/24 03/16/25 carboxymethylcellulose sodium 1 % 1 drp ophthalmic (eye) BID PRN Dry 02/11/24 03/16/25 eye liquid gel drops Eye(S) clonazepam 0.5 mg tablet 0.5 mg PO BEDTIME PRN Anxiety 02/11/24 03/16/25 melatonin 3 mg tablet 3 mg PO BEDTIME PRN Sleep 02/11/24 03/16/25 topiramate 100 mg tablet 100 mg PO BID 02/11/24 03/16/25 amlodipine 2.5 mg tablet 2.5 mg PO DAILY PRN Hypertension 03/16/25 03/16/25 sertraline 25 mg tablet (Zoloft) 25 mg PO DAILY 03/16/25 03/16/25 ustekinumab 90 mg/mL subcutaneous 90 mg subcut Q4W 03/16/25 03/16/25 syringe (Maxlara) Previous Rx's ?Medication ?Instructions ?Recorded risperidone 1 mg tablet 1 mg PO BID #60 tabs 04/04/21 vitamin B complex-folic acid 0.4 1 tab PO QAM #30 tabs 11/09/21 mg tablet (B Complex 1 (with folic acid)) folic acid 1 mg tablet 1 mg PO DAILY 60 days #60 tabs 10/24/22 oxybutynin chloride 15 mg 15 mg PO DAILY 30 days #30 tabs 10/31/23 tablet,extended release 24 hr famotidine 20 mg tablet (Pepcid) 20 mg PO BID PRN abdominal 01/29/24 discomfort #60 tabs ondansetron 4 mg disintegrating 4 mg PO Q6-8H PRN nausea and 09/10/24 tablet vomiting #14 tabs lactulose 20 gram/30 mL oral 20 g (30 mL) PO BID #1,800 mL 12/16/24 solution methotrexate sodium 2.5 mg tablet 25 mg (10 x 2.5 mg) PO FR 90 days 01/20/25 #130 tabs cyclobenzaprine 10 mg tablet 10 mg PO TID PRN muscle spasm #12 02/06/25 tabs apixaban 2.5 mg tablet (Eliquis) 2.5 mg PO BID #60 tabs 02/11/25 diphenhydramine HCl 25 mg capsule 25 mg PO Q6H PRN Itching #6 caps 03/20/25 (Banophen) prednisone 10 mg tablet See Taper PO DIRECTED #32 tabs 07/27/25 Allergies Allergy/AdvReac Type Severity Reaction Status Date / Time aspirin (ASA) Allergy Intermediate RASH Verified 04/22/25 23:52 azathioprine (From IMURAN) Allergy Intermediate PANCREATIC Verified 04/22/25 23:52 INFLAMMATION ibuprofen (IBUPROFEN) Allergy Intermediate TOLD NOT Verified 04/22/25 23:52 TO TAKE levofloxacin (From LEVAQUIN) Allergy Mild YEAST Verified 04/22/25 23:52 INFECTIONS Review of Systems Review of Systems: Yes all other systems are reviewed and are negative [facility] Past Medical History Medical History (Updated 04/23/25 @ 03:16 by Raymond Peters MD) Crohn disease Crohn's colitis Urge incontinence Stricture of colon Normocytic anemia Anxiety Sleep apnea Asthma GERD (gastroesophageal reflux disease) Pulmonary embolism Crohn's disease PTSD (post-traumatic stress disorder) Recurrent major depression-severe Hyperlipidemia Hemorrhagic cyst of ovary Kidney stones Depression Iron deficiency anemia Rheumatoid arthritis Migraine Cancer HTN (hypertension) Surgical History History of esophagogastroduodenoscopy (EGD) History of colon resection History of colon resection Hx of dilation and curettage Hx of cystoscopy Hx of cystoscopy Hx of colonoscopy (~10/2018) Hx of endoscopy Social History Social History Household Members: None Housing: Apartment Are you a primary care team coordinator scheduler to a significant other at home: No Do you presently have visiting nurse or other home services: Yes ([employer]) Alcohol intake: never Patient Tobacco Use Status: Former Tobacco user Tobacco use type: Cigarette Cigarettes Per Day: 1 Years Smoked: 10 Smoked in Last 30 Days: No e-Cigarette/Vaping Use: Former Use Second Hand Smoke Exposure: No Substance Use Type: Marijuana Advance Directives: Yes Advance Directives on File: Yes Advance Directives Date on File: 02/13/24 service: No Current occupational status: unemployed and disabled Sexual orientation: Straight/Heterosexual Physical Exam ED Vital Signs: Vital Signs - 24 hr 04/22/25 23:50 04/22/25 23:55 04/23/25 02:11 Temperature 99.0 F Pulse Rate 68 68 69 Respiratory Rate 17 17 18 Blood Pressure 126/79 126/79 119/56 L Pulse Oximetry 96 96 96 Oxygen Delivery Method Room Air Room Air Room Air BMI result Body Mass Index 26.5 Const Other: The patient is awake and alert. She is a somewhat chronically ill-appearing 54-year-old. She looks somewhat generally deconditioned but does not appear in obvious acute distress. HENMT Other: The face is symmetrical. ?Mucous membranes moist. Eyes Other: Pupils are round equal, conjunctivae are clear, extraocular movements intact Neck Neck: Yes normal visual inspection and Yes full ROM Resp Effort & Inspection: normal respiratory effort Auscultation: clear to auscultation bilaterally Cardio Rate: regular rate Rhythm: regular rhythm Heart sounds: S1 normal heart sound present and S2 normal heart sound present GI Other: The patient is diffusely tender. She is primarily tender on the left side of the abdomen and across the lower abdomen. No definite rebound. Skin Other: The skin is dry and unremarkable Neuro Other: The patient is awake and alert with a normal mental status. Cranial nerves are grossly intact. She moves her extremities symmetrically and appropriately. She seems neurologically intact. Extrem Other: There is no calf swelling or tenderness. No asymmetry. No peripheral edema. Medications Administered Discontinued Medications Generic Name Dose Route Start Last Admin Trade Name Freq PRN Reason Stop Dose Admin Droperidol 0.625 mg 04/23/25 01:02 04/23/25 01:39 Droperidol 5 Mg/2 Ml Vial IVPUSH 04/23/25 01:03 0.625 mg ONCE ONE Administration Sodium Chloride 1,000 mls @ 999 mls/hr 04/23/25 00:45 04/23/25 01:06 Ns IV 04/23/25 01:45 999 mls/hr .Q1H1M JUANCHO Administration Iohexol 85 ml 04/23/25 01:25 04/23/25 01:27 Iohexol 350 Mg/Ml 100 Ml Infus..Btl IV 04/23/25 01:26 85 ml ONCE ONE Administration Morphine Sulfate 4 mg 04/23/25 01:02 04/23/25 01:39 Morphine Sulfate 4 Mg/Ml Cartridge IVPUSH 04/23/25 01:03 4 mg ONCE ONE Administration Protocol Medical Decision Making Medical Decision Making MDM Narrative: The patient is a 54-year-old woman with a history of Crohn's disease on methotrexate and ustekinumab who presents with several days of worsening abdominal pain and nausea and loose stools. She is not tachycardic or febrile here in the emergency room. A CT scan shows findings consistent with proctocolitis. She has a normal white count with a an unremarkable differential, no left shift. CRP is higher than usual at 6. I suspect that this is a Crohn's flare causing proctocolitis. My suspicion for a significant infectious component in his case is low. I reviewed old records. When last hospitalized for a Crohn's flare she initially received 20 mg of methylprednisolone IV Q 8 hours. I have ordered 20 mg of IV methylprednisolone in addition to the symptomatic medications of morphine and droperidol that she received. Also IV fluids. She felt better after morphine and droperidol. She was able to produce a stool sample that is negative for C diff. She will be admitted to the hospitalist service for further care and a GI consult. Lab Data 04/23/25 00:45 04/23/25 00:45 Labs: Lab Results 04/23/25 04/23/25 04/23/25 Range/Units 00:45 01:44 02:07 WBC 9.0 (4.8-10.8) X10*3/uL RBC 4.27 (4.20-5.50) X10*6/uL Hgb 11.8 L (12.0-16.0) g/dl Hct 35.0 L (37.0-47.0) % MCV 82.0 (80.0-98.0) fL MCH 27.6 (27.0-33.0) pg MCHC 33.7 (31.0-35.0) g/dl RDW 16.8 H (11.0-16.0) % Plt Count 239 (160-400) X10*3/uL MPV 11.3 (9.4-12.3) fL Immature Gran % (Auto) 0.4 (0.0-0.4) % Neut % (Auto) 64.6 (45-73) % Lymph % (Auto) 19.6 L (20-40) % [place] % (Auto) 14.4 H (2-11) % Eos % (Auto) 0.6 (0-4) % Baso % (Auto) 0.4 (0-2) % Lymph # (Auto) 1.8 (1.2-4.9) X10*3/uL [place] # (Auto) 1.3 H (0.1-1.2) X10*3/uL Eos # (Auto) 0.1 (0.0-0.4) X10*3/uL Baso # (Auto) 0.0 (0.0-0.2) X10*3/uL Abs Immat Gran (auto) 0.04 H (0.00-0.03) X10*3/uL Absolute Neuts (auto) 5.8 (2.0-8.3) x10*3/uL Absolute Nucleated RBC 0.000 (0.0-0.012) X10*3/uL Nucleated RBC % (auto) 0.0 (0.0-0.2) /100WBC Sodium 141 (135-145) mmol/L Potassium 3.5 (3.3-5.1) mmol/L Chloride 106 (96-108) mmol/L Carbon Dioxide 24 (22-29) mmol/L Anion Gap 15 (12-20) BUN 19 H (9-16) mg/dL Creatinine 0.99 (0.5-1.4) mg/dL Estim Creat Clear Calc 67.0 Estimated GFR 58 Random Glucose 97 (60-115) mg/dL Calcium 8.9 D (8.4-10.2) mg/dL Magnesium 2.3 (1.6-2.6) mg/dL Total Bilirubin 0.2 (0.0-1.0) mg/dL AST 19 (5-31) U/L ALT 15 (0-31) U/L Alkaline Phosphatase 83 (39-117) U/L C-Reactive Protein 6.78 H (< or = 0.50) mg/dL Total Protein 7.1 (6.5-8.0) g/dL Albumin 4.0 (3.5-5.0) g/dL Lipase 18 (8-78) U/L Urine Color Yellow Urine Appearance Clear Urine pH 6.0 (5.0-9.0) Ur Specific [place] 1.025 (1.005-1.025) Urine Protein Negative (Neg-Trace) mg/dL Urine Glucose (UA) Negative (Negative) mg/dL Urine Ketones Negative (Negative) mg/dL Urine Blood Moderate (2+) H (Negative) Urine Nitrite Negative (Negative) Ur Leukocyte Esterase Negative (Negative) Urine RBC 3-5 H (0-2) /HPF Urine WBC 6-10 H (0-5) /HPF Ur Squamous Epith Cells 6-10 (0-2) /HPF Urine Bacteria None Seen (None Seen) Hyaline Casts 0-2 (0-2) /LPF C. difficile Tox B Gene NEGATIVE (Negative) Discharge Plan Discharge Clinical Impression: Proctocolitis, Crohn's disease, Abdominal pain Patient Disposition: Admitted As Inpatient Print Language: Citizen Of [place]
[2025-04-23 00:49] LABS: Hematocrit 35.0 % (37.0-47.0); Hemoglobin 11.8 g/dl (12.0-16.0); Imm Gran Abs Auto 0.04 X10*3/uL (0.00-0.03); Imm Gran Pct Auto 0.4 % (0.0-0.4); Lymphocytes Absolute Auto 1.8 X10*3/uL (1.2-4.9); MANUAL DIFF FLAG NO; Mean Corpuscular HGB Conc 33.7 g/dl (31.0-35.0); Mean Corpuscular Hemoglobin 27.6 pg (27.0-33.0); Mean Corpuscular Volume 82.0 fL (80.0-98.0); NRBC Abs Auto 0.000 X10*3/uL (0.0-0.012); NRBC Pct Auto 0.0 /100WBC (0.0-0.2); Platelet Count 239 X10*3/uL (160-400); Red Blood Count 4.27 X10*6/uL (4.20-5.50); White Blood Count 9.0 X10*3/uL (4.8-10.8)
[2025-04-23 01:02] LABS: Alanine Aminotransferase 15 U/L (0-31); Albumin Level 4.0 g/dL (3.5-5.0); Alkaline Phosphatase 83 U/L (39-117); Anion Gap 15 (12-20); Aspartate Amino Transferase 19 U/L (5-31); Blood Urea Nitrogen 19 mg/dL (9-16); Calcium 8.9 mg/dL (8.4-10.2); Carbon Dioxide 24 mmol/L (22-29); Chloride 106 mmol/L (96-108); Creatinine Clr Calc Pharmacy 67.0; Estimated Glomerular Filt Rate 58; Lipase 18 U/L (8-78); Magnesium 2.3 mg/dL (1.6-2.6); Potassium 3.5 mmol/L (3.3-5.1); Sodium 141 mmol/L (135-145); Total Protein 7.1 g/dL (6.5-8.0)
[2025-04-23] MEDS: iohexoL 350 MG/ML 100 ML INFUS..BTL 85 ML IV (01:27)
[2025-04-23 01:52] LABS: Appearance Urine Clear; Glucose Urine UA Negative (Negative); PH 6.0 (5.0-9.0); Specific Gravity - Urine 1.025 (1.005-1.025); UMIC TRIGGER UACC YES
[2025-04-23 02:01] LABS: UACC Culture Trigger YES
--- NOTE | 2025-04-23 02:11 | MHC.EDTECH ---
This bulk loader was able to obtain patient's stool samples, stool is light brown with a loose consistency. Patient has a steady gait while ambulating to bathroom.
--- OUTSIDE RECORDS SUMMARY | 2025-04-23 02:50 | XMS_ITS | Encounter Summary ---
Author Organization [employer] Address [address] [facility] [address] [place] [address] Care Team Providers Care Screen And Cyclone Repairer Name Role Phone Leesa Rapp MD Primary Care Provide r Reason for Visit * Reason Comments Med Refill Encounter Details Date Type Department Care Team ([facility] Contact Info) Description 01/31/2023 Refill [facility] [address] [place], [place] [phone] Christy Stockton DO [address] [place], [place] [phone] Anxiety Social History Tobacco Use Types Packs/Day [...] Upcoming Encounters Date Type Department Care Team ([facility] Contact Info) Description 04/28/2025 10:45 AM EDT Office Visit [facility] MEDICINE [address] [place], [place] [phone] Leesa Rapp MD [address] [place], [place] [phone] documented as of this encounter Visit Diagnoses Diagnosis Anxiety Anxiety state, unspecified documented in this encounter Care Teams Screen And Cyclone Repairer Relationship Specialty Start Date End Date Leesa Rapp MD [address] [place] [address] PCP - General Family Medicine 10/15/19 documented as of this encounter
--- OUTSIDE RECORDS SUMMARY | 2025-04-23 02:50 | XMS_ITS | Encounter Summary ---
Author Organization [employer] Address [address] [facility] [address]t [place] [address] Care Team Providers Care Importer Exporter Name Role Phone Leesa Rapp MD Primary Care Provide r Encounter Details Date Type Department Care Team (Late Contact Info) Description 10/30/2022 Orders Only [facility] MED [facility] PEDS [address] [place], [place] [phone] Christy Kaye LPN Social History Tobacco Use [...] ([facility] Contact Info) Description 04/28/2025 10:45 AM EDT Office Visit [facility] MEDICINE [address] [place], [place] [phone] Leesa Rapp MD [address] [place], [place] [phone] documented as of this encounter Visit Diagnoses Not on filedocumented in this encounter Care Teams Importer Exporter Relationship Specialty Start Date End Date Leesa Rapp MD [address] [place] [phone] PCP - General Family Medicine 10/15/19 documented as of this encounter
--- OUTSIDE RECORDS SUMMARY | 2025-04-23 02:50 | XMS_ITS | Clinical Summary ---
Author Organization [facility] ity Address [address] [place] [address] Care Team Providers Care Network Planner Name Role Phone Macy Washburn NP Primary Care Provider [phone] Social History Tobacco Use Types Packs/Day Years [...] season) 2024 Colorectal Cancer Screening: Colonoscopy 06/19/2024 HIV Screening 06/19/2024 Hepatitis C Screening 06/19/2024 Social Influencers of Health Screening 06/19/2024 Depression Screening 08/25/2024 Influenza Vaccine (#1) 2025 HIB Vaccines Aged Out No longer [...] age to complete this topic Care Teams Network Planner Relationship Specialty Start Date End Date Macy Washburn NP [address] [place] [phone] PCP - General 03/12/05
--- OUTSIDE RECORDS SUMMARY | 2025-04-23 02:50 | XMS_ITS | Encounter Summary ---
Author Organization [employer] Address [address] [facility] [address] [place] [address] Care Team Providers Care Sugar Plantation Manager Name Role Phone Leesa Rapp MD Primary Care Provide r Reason for Visit * Reason Onset Date Comments Nurse Triage 03/21/2025 Encounter Details Date Type Department Care Team ([facility] st Contact Info) Description 03/21/2025 Telephone [facility] MEDICINE [address] [place], [place] [phone] Leesa Rapp MD [address] [place], [place] [phone] Nurse Triage Social History Tobacco Use Types Packs/Day Years [...] Answer Date Recorded Internet Access Q1 Yes 02/11/2025 Internet Access Q2 Not on file 02/11/2025 Comments Unknown Sex and Gender Information Value Date Recorded Sex Assigned at Female 06/24/2022 10:16 AM EDT Legal Sex Female 10:16 AM EDT Gender Identity Female 06/24/2022 10:16 AM EDT Sexual Orientation Straight 06/24/2022 10 :16 AM EDT documented as of this encounter Miscellaneous Notes * Telephone Encounter - Yudi Ingram RN - 03/21/2025 4:34 PM EDT Triage call to Pt [place] [facility] [place] [id number] shelly Pt reports having facial rash from allergies and is very itchy. Pt reports that drinking water is difficult because of the way Pt mouth twists and fluid will spill. Pt daughter is concerned about Pt and asks for Pt to be seen. Maria E Jackson [facility] contacted us due to Pt daughter concern. Pt is being followed by [facility] due to noro virus which was contracted by Pt. Daughter reports that Pt has rash widespread all over body, red, itchy. Pt appears to be anxious per daughter. Pt is advised to come to [facility] for provider to see Pt and orders can be given to assist Pt. Pt agrees to come to [facility] open till 8pm today. Pt agrees with disposition. Insurance is verified as active. Protocol Used: Rash or Redness - Widespread (Adult) Protocol-Based Disposition: See in Office or Video Visit Today or Tomorrow Video visit not offered Positive Triage Question: * Mild widespread rash (Exception: Heat rash lasting 3 days or less.) * All higher-acuity triage questions were negative Care Advice Discussed: * Reasons To Call Back - Rash becomes purple or blood-colored or blister-like - Fever occurs or severe itching - You become worse * Telephone Encounter - Familia Perez - 03/21/2025 3:52 PM EDT Tc from Maria E Jackson at [facility] stating pts daughter made a call saying pts face was twisting , and pt is walking around with her face twisting . Maria E is requesting nurse reachout to pt and advise her to go too the hospital. Contact Maria E at [phone] Contact pt at [phone] documented in this encounter Plan of Treatment Upcoming Encounters Date Type Department Care Team (Late st Contact Info) Description 04/28/2025 10:45 AM EDT Office Visit [facility] MEDICINE [address] [place] [phone] Leesa Rapp MD [address] [place] [address] documented as of this encounter Visit Diagnoses Not on filedocumented in this encounter Additional Health Concerns Assessment Noted Time PHQ-9 Depression Total Score: 0 02/20/20 24 1:02 PM EDT documented as of this encounter Care Teams Sugar Plantation Manager Relationship Specialty Start Date End Date Leesa Rapp MD [address] [place] [phone] PCP - General Family Medicine 10/15/19 documented as of this encounter
--- OUTSIDE RECORDS SUMMARY | 2025-04-23 02:50 | XMS_ITS | Encounter Summary ---
Author Organization [employer] Address [address] [facility] 7t [place] [address] Care Team Providers Care Veterinary Laboratory Diagnostician Name Role Phone Leesa Rapp MD Primary Care Provide r Encounter Details Date Type Department Care Team ([facility] Contact Info) Description 11/28/2022 Abstract [facility] MEDICINE [address] [place] [phone] Leesa Rapp MD [address] [place] [address] [phone] Social History Tobacco Use Types Packs/Day Years [...] Upcoming Encounters Date Type Department Care Team ([facility] Contact Info) Description 04/28/2025 10:45 AM EDT Office Visit [facility] MEDICINE [address] [place] [address] [phone] Leesa Rapp MD [address] [place] [phone] documented as of this encounter Visit Diagnoses Not on filedocumented in this encounter Care Teams Veterinary Laboratory Diagnostician Relationship Specialty Start Date End Date Leesa Rapp MD [address] [place], [place] [phone] PCP - General Family Medicine 10/15/19 documented as of this encounter
--- OUTSIDE RECORDS SUMMARY | 2025-04-23 02:50 | XMS_ITS | Encounter Summary ---
Author Organization [employer] Address [address] [facility] [address] [place] [address] Care Team Providers Care Camp Boss Name Role Phone Leesa Rapp MD Primary Care Provide r Reason for Visit * Reason Comments Pre-visit Planning SDOH screening compl eted on 11/08/2024 Encounter Details Date Type Department Care Team ([facility] st Contact Info) Description 04/19/2025 Patient Outreach [facility] MEDICINE [address] [place] [address] Leesa Rapp MD [address] [place] [address] Pre-visit Planning (SDOH screening completed on 11/08/2024) Social History Tobacco Use Types Packs/Day Years Used Date Smoking Tobacco: Never Passive Smoke Exposure: Never Smokeless Tobacco: Never Alcohol Use Standard Drinks/Week Comments Never 0 (1 standard drink = 0.6 oz pur e alcohol) Depression Answer Date Recorded Patient Health Questionnaire-9 Score 19 04/07/2025 Patient Health Questionnaire-9 Score 19 04/07/2025 Last PHQ-9: Questionnaire Data Not on file 0 04/07/2025 Housing Stability Answer Date Recorded What is [...] Answer Date Recorded Patient Health Questionnaire-2 Score 5 04/07/2025 Internet Access Answer Date Recorded Internet Access Q1 Yes 02/11/2025 Internet Access Q2 Not on file 02/11/2025 Comments Unknown Sex and Gender Information Value Date Recorded Sex Assigned at Female 06/24/2022 10:16 AM EDT Legal Sex Female 10:16 AM EDT Gender Identity Female 06/24/2022 10:16 AM EDT Sexual Orientation Straight 06/24/2022 10 :16 AM EDT documented as of this encounter Progress Notes * Danielle Morgan - 04/19/2025 9:27 AM EDT CC Danielle placed successful outbound call to patient for pre-visit planning. Patient name and confirmed. Patient confirms appt date and time, and has transportation. Biggest concern for appointment at this time is none Patient advised to bring to appointment a photo id and insurance card. Appropriate screenings completed in anticipation of appointment. documented in this encounter Plan of Treatment Upcoming Encounters Date Type Department Care Team (Late st Contact Info) Description 04/28/2025 10:45 AM EDT Office Visit [facility] MEDICINE [address] [place] [address] Leesa Rapp MD [address] [place] [phone] documented as of this encounter Visit Diagnoses Not on filedocumented in this encounter Additional Health Concerns Assessment Noted Time PHQ-9 Depression Total Score: 19 025 9:53 AM EDT documented as of this encounter Care Teams Camp Boss Relationship Specialty Start Date End Date Leesa Rapp MD [address] [place] [address] PCP - General Family Medicine 10/15/19 documented as of this encounter
--- OUTSIDE RECORDS SUMMARY | 2025-04-23 02:50 | XMS_ITS | Encounter Summary ---
Author Organization [employer] Address [address] [facility] [address] [place] [address] Care Team Providers Care Neurosurgical Physician Assistant Name Role Phone Leesa Rapp MD Primary Care Provide r Reason for Visit * Reason Comments Med Refill Encounter Details Date Type Department Care Team (Late st Contact Info) Description 12/31/2022 Refill [facility] MEDICINE [address] [place], [place] [phone] Vee Harris MD [address] [place], [place] [phone] Moderate persistent asthma without complication Social History [...] Upcoming Encounters Date Type Department Care Team ([facility] Contact Info) Description 04/28/2025 10:45 AM EDT Office Visit [facility] MEDICINE [address] [place] [address] Leesa Rapp MD [address] [place], [place] [phone] documented as of this encounter Visit Diagnoses Diagnosis Moderate persistent asthma without complication documented in this encounter Care Teams Neurosurgical Physician Assistant Relationship Specialty Start Date End Date Leesa Rapp MD [address] [place], [place] [phone] PCP - General Family Medicine 10/15/19 documented as of this encounter
--- OUTSIDE RECORDS SUMMARY | 2025-04-23 02:50 | XMS_ITS | Encounter Summary ---
Author Organization [employer] Address [address] [facility] [address]t [address] Floor [place] [phone] Care Team Providers Care Cad Engineer Name Role Phone Leesa Rapp MD Primary Care Provide r Reason for Visit * Reason Comments Med Refill Encounter Details Date Type Department Care Team (Late Contact Info) Description 04/28/2023 Refill [facility] MEDICINE [address] [place] [phone] Christy Stockton DO [address] [place], [place] [phone] Healthcare maintenance Social History Tobacco Use Types [...] Description 04/28/2025 10:45 AM EDT Office Visit [facility] MEDICINE [address] [place], [place] [phone] Leesa Rapp MD [address] [place], [place] [phone] documented as of this encounter Visit Diagnoses Diagnosis Healthcare maintenance documented in this encounter Care Teams Cad Engineer Relationship Specialty Start Date End Date Leesa Rapp MD [address] [place] [address] PCP - General Family Medicine 10/15/19 documented as of this encounter
--- OUTSIDE RECORDS SUMMARY | 2025-04-23 02:51 | XMS_ITS | Encounter Summary ---
Author Organization [employer] Address [address] [facility] 7t [place] [address] Care Team Providers Care Bolting Machine Operator Name Role Phone Leesa Rapp MD Primary Care Provide r Reason for Visit * Reason Comments Med Refill Encounter Details Date Type Department Care Team ([facility] st Contact Info) Description 05/09/[address] [facility] MEDICINE [address] [place], [place] [phone] Leesa Rapp MD [address] [place], [place] [phone] Vitamin D deficiency; Healthcare maintenance; Anxiety Social [...] 10:45 AM EDT Office Visit [facility] MEDICINE [address] [place] [address] Leesa Rapp MD [address] [place] [address] documented as of this encounter Visit Diagnoses Diagnosis Vitamin D deficiency Healthcare maintenance Anxiety Anxiety state, unspecified documented in this encounter Additional Health Concerns Assessment Noted Time PHQ-9 Depression Total Score: 0 02/20/20 24 1:02 PM EDT documented as of this encounter Care Teams Bolting Machine Operator Relationship Specialty Start Date End Date Leesa Rapp MD [address] [place] [address] PCP - General Family Medicine 10/15/19 documented as of this encounter
--- OUTSIDE RECORDS SUMMARY | 2025-04-23 02:51 | XMS_ITS | Encounter Summary ---
Author Organization [employer] Address [address] [facility] 7t [place] [address] Care Team Providers Care Upper Caser Name Role Phone Leesa Rapp MD Primary Care Provide r Reason for Visit * Reason Comments Med Refill Encounter Details Date Type Department Care Team ([facility] st Contact Info) Description 04/29/2024 Refill [facility] MEDICINE [address] [place], [place] [phone] Leesa Rapp MD [address] [place], [place] [phone] Anxiety Social History Tobacco Use Types Packs/Day [...] Description 04/28/2025 10:45 AM EDT Office Visit [facility] MEDICINE [address] [place] [phone] Leesa Rapp MD [address] [place] [address] documented as of this encounter Visit Diagnoses Diagnosis Anxiety Anxiety state, unspecified documented in this encounter Additional Health Concerns Assessment Noted Time PHQ-9 Depression Total Score: 0 02/20/20 24 1:02 PM EDT documented as of this encounter Care Teams Upper Caser Relationship Specialty Start Date End Date Leesa Rapp MD [address] [place] [id number] PCP - General Family Medicine 10/15/19 documented as of this encounter
--- OUTSIDE RECORDS SUMMARY | 2025-04-23 02:51 | XMS_ITS | Encounter Summary ---
Author Organization [employer] Address [address] [facility] 7t [place] [address] Care Team Providers Care Machine Ii Cutter Name Role Phone Leesa Rapp MD Primary Care Provide r Reason for Visit * Reason Comments Med Refill Encounter Details Date Type Department Care Team ([facility] st Contact Info) Description 09/03/2023 Refill [facility] [address] [place], [place] [phone] Rohini Meade MD [address] [place], [place] [phone] Chronic nonintractable headache, unspecified headache type Social History Tobacco Use Types Packs/Day Years Used Date Smoking Tobacco: Never Smokeless Tobacco: Never Alcohol Use Standard Drinks/Week Comments Never 0 (1 standard drink = 0.6 oz pur e alcohol) Housing Stability Answer Date Recorded What is your housing situation today? I have oneliarob rios 06/16/[address] you [...] Office Visit [facility] MEDICINE [address] [place] [address] Leesa Rapp MD [address] [place] [address] documented as of this encounter Visit Diagnoses Diagnosis Chronic nonintractable headache, unspecified headache type documented in this encounter Care Teams Machine Ii Cutter Relationship Specialty Start Date End Date Leesa Rapp MD [address] [place] [address] PCP - General Family Medicine 10/15/19 documented as of this encounter
--- OUTSIDE RECORDS SUMMARY | 2025-04-23 02:51 | XMS_ITS | Clinical Summary ---
Demographics Address [address] [place] [address] Mobile Phone Home Phone Preferred Language Kazakh; Castilian Marital Status /Civil Union Uatsdin Affiliation Unknown Race Other Race Ethnic Group or Author Organization [facility] Address [address] [address] Phone Support Name Relationship Address Phone Judie Nunez Personal Relationship Unknown [phone] Minesh Munson Personal Relationship [address] [place] [address] Care Team Providers Care Formula Technician Name Role Phone Leesa Steven MD Primary Care Provider Allergies Active Allergy Reactions Criticality Noted Date Comments Aspirin Hives High 01/05/2019 Azathioprine Sodium High 01/05/2019 Medications simethicone (GAS RELIEF) 125 mg Cap Take 125 mg by mouth 4 (four) times a day as needed. Active oxycodone HCl (OXYCODONE ORAL) Take 10 mg by mouth daily. Active metroNIDAZOLE (FLAGYL) 250 MG tablet Take 250 mg by mouth daily. Active predniSONE (DELTASONE) 20 MG tablet Take 5 mg by mouth daily. Active levoFLOXacin (LEVAQUIN) 500 MG tablet Take 500 mg by mouth daily. Active calcium carbonate/vitam in D3 (CALCIUM 500 + D ORAL) Take by mouth. A ctive amLODIPine (NORVASC) 10 MG tablet Take 10 mg by mouth daily. Active montelukast (SINGULAIR) 10 mg tablet Take 10 mg by mouth nightly at bedtime. Active multivitamins capsule Take 1 capsule by mouth daily. Active pantoprazole (PROTONIX) 40 MG tablet Take 40 mg by mouth daily. Active PARoxetine (PAXIL) 40 MG tablet Take 40 mg by mouth every morning. Active topiramate (TOPAMAX) 100 MG tablet Take 100 mg by mouth 2 (two) times a day. Active ergocalciferol, vitamin D2, (VITAMIN D2 ORAL) Take by mouth. Activ e zolpidem (AMBIEN) 5 MG tablet Take 5 mg by mouth nightly at bedtime as needed for sleep. Active CLONAZEPAM ORAL Take by mouth. Active budesonide/form oterol fumarate (SYMBICORT INHL) Inhale into the lungs. Active doxycycline hyclate (DORYX) 100 MG tablet Take 100 mg by mouth 2 (two) times a day. Active traMADol (ULTRAM) 50 mg tablet Take 50 mg by mouth as needed for pain (specific location in comments). Active lidocaine (XYLOCAINE) 2 % mucosal gel jelly Apply topically as needed. 30 mL 1 Active methotrexate 2.5 MG Oral tabletIndicatio ns:Crohn's disease of large intestine with rectal bleeding Take 10 tablets (25 mg total) by mouth every 7 days. 40 tablet 2 1 Active Active Problems Problem Noted Date Diagnosed Date Asthma 05/06/2019 Social History Tobacco Use Types Packs/Day Years Used Date Smoking Tobacco: Former Smokeless Tobacco: Never Education Answer Date Recorded Are you interested in more education? Not on stephany e 12/20/2022 Are you concerned about learning? Not on file 12/20/2022 No 12/20/2022 No 12/20/2022 Digital Access Answer Date Recorded No 01/20/2023 No 01/20/2023 Reliable internet access at home? Not on file 01/20/2023 Device with a working camera? Not on file Comments Unknown Sex and Gender Information Value Date Recorded Sex Assigned at Not on file Legal Sex Female 10:32 PM EDT Gender Identity Not on file Sexual Orientation Not on file Last Filed Vital Signs Vital Sign Reading Time Taken Comments Blood Pressure 132/84 12/14/2020 2:21 PM EDT Pulse 70 12/14/2020 2:21 PM EDT Temperature 36.3 C (97.3 F) 12/14/2020 2:21 PM EDT Respiratory Rate 16 01/05/2019 10:12 AM EDT Oxygen Saturation 98% 12/14/2020 2:21 PM EDT Inhaled Oxygen Concentration - - Weight 83.9 kg (185 lb) 12/14/2020 2:21 PM EDT Height 160 cm (5' 3 ) 12/14/2020 2:21 PM EDT Body Mass Index 32.77 12/14/2020 2:21 PM EDT Plan of Treatment Health Maintenance Due Date Last Done Comments LIPID PANEL 1970 COVID-19 VACCINE (#1) 1975 DEPRESSION SCREENING 1982 SMOKING Hx and SMOKELESS TOBACCO SCREENING 1983 HEPATITIS C SCREENING 1988 HIV ONE-TIME SCREENING (18-65 YEARS) 1988 PNEUMOCOCCAL VACCINES (50+ years) (1 of 2 - PCV) 1989 PAP SMEAR 1991 MAMMOGRAM 2010 COLOGUARD 2015 COLONOSCOPY 2015 COLORECTAL CANCER SCREENING 2015 FIT TEST 2015 FOBT 2015 SIGMOIDOSCOPY 2015 VIRTUAL COLONOSCOPY 2015 Adult Td,Tdap Booster 01/10/2021 01/10/2011, 003 ZOSTER VACCINES (2 of 2) 12/19/2021 10/24/2021 INFLUENZA VACCINE (#1) 2025 , 06/18/2018, 08/06/2017, Additional history exists HEPATITIS A VACCINES Aged Out No long er eligible based on patient's age to complete this topic HIB VACCINES Aged Out No longer eligi ble based on patient's age to complete this topic MENINGOCOCCAL VACCINES (ACWY) Aged Out No longer eligible based on patient's age to complete this topic MENINGOCOCCAL VACCINES (B) Aged Out N o longer eligible based on patient's age to complete this topic Medical Devices Not on file Insurance [facility] C3 ACO C3 ACO C3 ACO C[address] [facility] [address] [place] [address] [place] [address] C3 ACO [facility] C3 ACO [facility] C3 ACO Care Teams Formula Technician Relationship Specialty Start Date End Date Leesa Steven MD [address] [place] [id number] PCP - General Internal Medicine 12/18/20 Additional Source Comments The information contained in this document represents components of the legal health record. It is not the complete legal health record.[facility]
--- OUTSIDE RECORDS SUMMARY | 2025-04-23 02:52 | XMS_ITS | Encounter Summary ---
Author Organization [employer] Address [address] [facility] 7t [place] [address] Care Team Providers Care Dust Operator Name Role Phone Leesa Rapp MD Primary Care Provide r Reason for Visit * Reason Comments Med Refill Encounter Details Date Type Department Care Team ([facility] st Contact Info) Description 12/01/2024 Refill [facility] PEDS [address] [place], [place] [phone] Leesa Rapp MD [address] [place] [address] Anxiety Social History Tobacco Use Types Packs/Day [...] Description 04/28/2025 10:45 AM EDT Office Visit [facility] MEDICINE [address] [place] [address] Leesa Rapp MD [address] [place] [address] documented as of this encounter Visit Diagnoses Diagnosis Anxiety Anxiety state, unspecified documented in this encounter Additional Health Concerns Assessment Noted Time PHQ-9 Depression Total Score: 0 02/20/20 24 1:02 PM EDT documented as of this encounter Care Teams Dust Operator Relationship Specialty Start Date End Date Leesa Rapp MD [address] [place] [id number] PCP - General Family Medicine 10/15/19 documented as of this encounter
--- OUTSIDE RECORDS SUMMARY | 2025-04-23 02:52 | XMS_ITS | Clinical Summary ---
Author Organization [employer] Address [address] [facility] [address] [place] [address] Care Team Providers Care Stuffed Casing Tier Name Role Phone Leesa Rapp MD Primary Care Provide r Allergies Active Allergy Reactions Criticality Noted Date Comments Aspirin Hives High 08/16/2010 Other reaction(s): rash Azathioprine High 08/16/2010 Other reaction(s): pancreatitis, unspecified, vomiting Ibuprofen High 02/05/2024 Other Reaction(s): TOLD NOT TO TAKE Levofloxacin 09/26/2017 Other reaction(s): yeast infection Medications folic acid (Folvite) 1 MG tablet TAKE [...] dose 021 Active Stelara injection 023 Active ciclopirox (Penlac) 8 % solutionIndicatio ns:Onycholysis Apply topically at bedtime. 6 mL 1 023 Active docusate sodium (Colace) 100 MG capsuleIndication s:Chronic constipation TAKE 1 CAPSULE BY MOUTH TWICE DAILY IN THE MORNING AND IN THE EVENING 180 capsule 1 024 Active melatonin 5 MG tablet Take 1 tablet by mouth at bedtime. 024 Active Acetaminophen Extra Strength 500 MG tablet Take 1 tablet by mouth every 6 (six) hours if needed. 024 Active famotidine (Pepcid) 20 MG tablet TAKE 1 TABLET BY MOUTH TWICE DAILY NEEDED FOR DISCOMFORT OF THE ABDOMEN Active zolpidem (Ambien) 5 MG tabletIndications :Primary insomnia TAKE 1 TABLET BY MOUTH AT BEDTIME NEEDED FOR SLEEP 30 tablet Active lactulose (Chronulac) 10 GM/15ML solution Take 30 mL by mouth Once per day. 024 Active polyethylene glycol, PEG, 3350 (Glycolax) 17 GM/SCOOP powder MIX 17G (1 CAPFUL) IN 8 OUNCES OF WATER AND TAKE BY MOUTH TWICE A DAY Active polyvinyl alcohol (Liquifilm Tears) 1.4 % ophthalmic solution INSTILL 1 DROP INTO THE AFFECTED EYE(S) THREE TIMES DAILY IN THE MORNING, AT NOON, AND AT BEDTIME NEEDED FOR DRY EYES Active albuterol (2.5 MG/3ML) 0.083% nebulizer solutionIndicatio ns:Moderate persistent asthma, unspecified whether complicated Take 3 mL (2.5 mg) by nebulization every 4 (four) hours if needed for wheezing. 75 mL 3 024 Active fluticasone (Flonase) 50 MCG/ACT nasal sprayIndications: Seasonal allergic rhinitis, unspecified trigger Administer 1 spray into each nostril Once per day. 16 g 3 024 Active LORazepam (Ativan) 0.5 MG tabletIndications :Fear of flying Take 1 tablet (0.5 mg) by mouth every 6 (six) hours if needed for anxiety (use before flight) for up to 6 doses. 6 tablet 024 Active ketoconazole (NIZOral) 2 % shampooIndication s:Rash and nonspecific skin eruption APPLY TO THE AFFECTED AREA(S), LEAVE FOR 5 MINUTES THEN RINSE FOR 3 DAYS consecutivement e. START ON 05/20/24. 120 mL 1 Active amLODIPine (Norvasc) 2.5 MG tabletIndications :Benign hypertension Take 1 tablet (2.5 mg) by mouth Once per day. 30 tablet 11 025 2025 Active hydroquinone 4 % creamIndications: Melasma Apply topically 2 times daily. 28.35 g 025 2025 Active cholecalciferol (D3 Super Strength) 50 MCG (1999 UT) capsuleIndication s:Vitamin D deficiency TAKE 1 CAPSULE BY MOUTH EVERY MORNING 90 capsule 1 025 Active Multiple Vitamin (Multivitamin) tabletIndications :Healthcare maintenance TAKE 1 TABLET BY MOUTH EVERY MORNING 90 tablet 1 025 Active Calcium Carb-Cholecalcife rol 600-10 MG-MCG tabletIndications :Vitamin D deficiency TAKE 1 TABLET BY MOUTH TWICE DAILY IN THE MORNING AND IN THE EVENING 180 tablet 1 025 Active montelukast (Singulair) 10 MG tabletIndications :Moderate persistent asthma without complication TAKE 1 TABLET BY MOUTH AT BEDTIME 90 tablet 1 025 Active busPIRone (Buspar) 5 MG tabletIndications :Anxiety TAKE 1 TABLET BY MOUTH EVERY DAY 90 tablet 1 025 Active risperiDONE (RisperDAL) 1 MG tabletIndications :Depression with anxiety TAKE 1 TABLET BY MOUTH TWICE DAILY IN THE MORNING AND IN THE EVENING 60 tablet 2 025 Active budesonide-formot carisa (Symbicort) 160-4.5 MCG/ACT inhalerIndication s:Moderate persistent asthma without complication INHALE 2 PUFFS BY MOUTH TWICE DAILY IN THE MORNING AND IN THE EVENING RINSE MOUTH AFTER USING. 10.2 g 2 025 Active topiramate (Topamax) 100 MG tabletIndications :Chronic nonintractable headache, unspecified headache type TAKE 1 TABLET BY MOUTH TWICE DAILY IN THE MORNING AND AT BEDTIME 60 tablet 2 025 Active gabapentin (Neurontin) 100 MG capsuleIndication s:Anxiety TAKE 1 CAPSULE BY MOUTH TWICE DAILY 60 capsule 1 025 Active Eliquis 2.5 MG tablet Take 1 tablet by mouth 2 times daily. 025 Active sertraline (Zoloft) 25 MG tablet Take 1 tablet by mouth Once per day. Active hydrOXYzine HCl (Atarax) 10 MG tablet Take 1 tablet by mouth if needed in the morning, at noon, and at bedtime for anxiety. Active Proventil HFA 108 (90 Base) MCG/ACT inhaler INHALE 2 PUFFS BY MOUTH FOUR TIMES DAILY 022 2024 Discontinued(M ed list cleanup (will not trigger notification to Pharmacy)) diazePAM (Valium) 5 MG tablet Take 5 mg by mouth 3 times daily. 023 2024 Discontinued(M ed list cleanup (will not trigger notification to Pharmacy)) hydrocortisone 2.5 % cream Apply topically 2 times daily. 15 g 1 023 2024 Discontinued(M ed list cleanup (will not trigger notification to Pharmacy)) morphine (MSIR) 15 MG tablet Take 15 mg by mouth every 6 (six) hours if needed. 024 2024 Discontinued(M ed list cleanup (will not trigger notification to Pharmacy)) apixaban (Eliquis) 5 MG tabletIndications :Bilateral pulmonary embolism (CMS/HCC) TAKE 1 TABLET BY MOUTH TWICE DAILY IN THE MORNING AND IN THE EVENING 60 tablet 5 024 2024 Discontinued(M ed list cleanup (will not trigger notification to Pharmacy)) triamcinolone (Kenalog) 0.1 % creamIndications: Rash and nonspecific skin eruption Apply topically if needed in the morning and at bedtime (pain and swelling). 30 g 024 2024 Discontinued(M ed list cleanup (will not trigger notification to Pharmacy)) fluconazole (Diflucan) 200 MG tabletIndications :Tinea versicolor Take 1 tablet (200 mg) by mouth 1 (one) time per week. 4 tablet 025 2024 Discontinued(M ed list cleanup (will not trigger notification to Pharmacy)) hydrOXYzine HCl (Atarax) 25 MG tabletIndications :Mood disorder (CMS/HCC) Take 1 tablet (25 mg) by mouth if needed in the morning and at bedtime for anxiety. 30 tablet 1 025 2024 Discontinued(M ed list cleanup (will not trigger notification to Pharmacy)) ondansetron (Zofran) 4 MG tabletIndications :Acute Crohn's disease, unspecified complication (CMS/HCC) Take 2 tablets (8 mg) by mouth every 8 (eight) hours if needed for nausea or vomiting for up to 7 days. 20 tablet 025 2024 predniSONE (Deltasone) 10 MG tabletIndications :Acute Crohn's disease, unspecified complication (CMS/HCC) Take 1 tablet (10 mg) by mouth 5 (five) times a day for 2 days, THEN 1 tablet (10 mg) 4 times daily for 2 days, THEN 1 tablet (10 mg) 3 times daily for 2 days, THEN 1 tablet (10 mg) 2 times daily for 2 days, THEN 1 tablet (10 mg) Once per day for 2 days. 30 tablet 025 2024 oxyCODONE (Roxicodone) 5 MG immediate release tabletIndications :Acute Crohn's disease, unspecified complication (CMS/HCC) Take 1 tablet (5 mg) by mouth every 8 (eight) hours if needed for severe pain for up to 5 days. 15 tablet 025 2024 Active Problems Problem Noted Date Diagnosed Date Acute Crohn's disease, unspecified complication 04/07/2025 Assessment & Plan (04/07/2025 5:12 PM EDT): Extensive ED precautions were reviewed with patient today, I let her know if pain diarrhea or constipation is persistent or worse she will have to go immediately to the emergency room, I will prescribe for now again prednisone taper Zofran for nausea and oxycodone short course for pain but I extensively explained to her that if she is not improving she will have to go back to the hospital. I also advised to call her GI office to make sooner follow-up appointment Crohn's disease of rectum with complication 11/23 [...] GI Essential hypertension 05/29/2015 Assessment & Plan (02/16/2025 1:40 PM EDT): I advised to take her medications every day without missing any dose, I also advised: - Aerobic exercise to reduce BP. 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 She asks about pain mgmt, but the majority of her pain is intra-abdominal I think pain mgmt would have little to offer her, and that focus should be on her her Crohn's activity Vitamin D deficiency 05/29/2015 Resolved Problems Problem Noted Date Diagnosed Date Resolved Date Pulmonary embolism 11/15/2022 3 Encounters Date Type Department Care Team Description 04/19/2025 Patient Outreach [facility] [address] [place] [id number] Leesa Rapp MD Pre-visit Planning (SDOH screening completed on 11/08/2024) 04/07/2025 9:30 AM EDT Office Visit [facility] [address] [place] [phone] Leesa Rapp MD Acute Crohn's disease, unspecified complication (CMS/HCC) (Primary Dx) 04/07/2025 Travel 04/05/2025 Telephone [facility] [address] [place] [phone] Leesa Rapp MD Chart Prep 03/21/2025 6:00 PM EDT Office Visit [facility] [address] [place] [phone] Leo Calles MD Xerosis of skin (Primary Dx); Involuntary movements 03/21/2025 Travel 03/21/[address] [phone] Leesa Rapp MD Nurse Triage 03/21/2025 Patient Outreach [address] [phone] Leesa Rapp MD Transition Of Care (Tcm) (LVM) 03/11/2025 Refill [facility] [address] [place] [address] Leesa Rapp MD Anxiety 02/16/2025 9:15 AM EDT Office Visit [address] [address] Leesa Rapp MD Essential hypertension; Encounter for screening mammogram for malignant neoplasm of breast; Rheumatoid arthritis involving multiple joints (CMS/HCC); Moderate persistent asthma, unspecified whether complicated; Dietary counseling; Exercise counseling; Class 1 obesity with serious comorbidity and body mass index (BMI) of 31.0 to 31.9 in adult, unspecified obesity type 02/16/2025 Travel 02/15/[address] [address] Leesa Rapp MD Chart Prep 02/11/2025 9:00 AM EDT Office Visit [address] [address] Ernestina Ayon MD Melasma (Primary Dx) 02/11/2025 Travel 02/11/[address] [address] Leesa Rapp MD Depression with anxiety; Moderate persistent asthma without complication; Chronic nonintractable headache, unspecified headache type 02/09/2025 Patient Outreach [address] [address] Leesa Rapp MD Pre-visit Planning (SDOH screening completed on 11/08/24) 02/07/2025 Refill [facility] [address] [place] [address] [phone] Leesa Rapp MD Yeast infection 01/30/2025 Refill [facility] [address] [place] [address] Leesa Rapp MD Vitamin D deficiency; Moderate persistent asthma without complication; Anxiety from Last 3 Months Immunizations Immunization Administration Dates Next Due Hep B, adult [...] Score 19 04/07/2025 Patient Health Questionnaire-9 Score 04/07/2025 Last PHQ-9: Questionnaire Data Not on [...] Sign Reading Time Taken Comments Blood Pressure 120/80 04/07/2025 9:51 AM EDT Pulse 71 04/07/2025 9:51 AM EDT Temperature 37.1 C (98.7 F) 04/07/2025 9:51 AM EDT Respiratory Rate 20 04/07/2025 9:51 AM EDT Oxygen Saturation 98% 04/07/2025 9:51 AM EDT Inhaled Oxygen Concentration - - Weight 76.8 kg (169 lb 6.4 oz) 04/07/2025 9:51 A M EDT Height 157.5 cm (5' 2 ) 04/07/2025 9:51 AM EDT Body Mass Index 30.98 04/07/2025 9:51 AM EDT Plan of Treatment Upcoming Encounters Date Type Department Care Team (Late st Contact Info) Description 04/28/2025 10:45 AM EDT Office Visit [facility] [address] [place] [address] Leesa Rapp MD [address] [place] [address] Health Maintenance Due Date Last Done Comments CT Colonography 1970 FIT DNA/Cologuard 1970 FIT 1970 HIV Screening 1970 Sigmoidoscopy 1970 Hepatitis C Screening 1988 FOBT 12/15/2020 12/16/2019, 11/30/2019 DTaP/Tdap/Td Vaccines (2 - Td or Tdap) 01/10/2021 01/10/2011, 09/22/2002 Zoster Vaccines (2 of 2) 12/19/2021 10/24/2021 Mammogram 03/13/2024 03/13/2023, 11/23, 12/16/2018 COVID-19 Vaccine (1 - season) 2024 Influenza Vaccine (#1) 2025 , 06/25/2021, 06/18/2018, Additional history exists Depression Monitoring 10/08/2025 04/07/2025, 025 SDOH Screening 11/08/2025 11/08/2024 Alcohol/Substance Use Screening 02/16/2026 02/16/2025 Disability Screening 02/16/2026 02/16/2025 Tobacco Screening 04/07/2026 04/07/2025 Colonoscopy 11/08/2026 11/08/2024 Colorectal Cancer Screening 11/08/2026 Cervical Cancer Screening 07/03/2028 HPV/Cotest 07/03/2028 07/03/2023 Pap Smear 07/03/2028 07/03/2023, 07/03/2023 Lipid Panel 05/19/2029 05/19/2024, 11/17/2020 RSV Patients and Patients Aged 60 years or older (1 - 1-dose 75+ series) 2045 Hepatitis B Vaccines Completed 02/04/2018, 10/21/2011, 09/16/2011 Pneumococcal Vaccine: 50+ Years Completed 02/20/2024, 10/13/2010 HIB Vaccines Aged Out No longer eligi [...] Procedure Name Priority Date/Time Associated Diagnosis Comments COLONOSCOPY Routine 11/08/2024 LIPID PANEL WITH REFLEX TO DIRECT LDL [...] Recently Relevant to Health Maintenance Results * Colonoscopy (11/08/2024) Pathologist [facility] [place] Colonoscopy Normal Normal Narrative Glenna Best - 11/08/2024 Repeat Colonoscopy in 2 years for Crohn's disease surveillance. See external admission note on 11/08/2024 Historical Provider HEALTH MAINTENANCE Final Result * (ABNORMAL) Lipid Panel with Reflex to Direct LDL (05/19/2024 11:00 AM EDT) Triglycerides 214(H) <150 mg/dL [facility] Comment:Desirable Triglyceri de: less than 150 mg/dLBorderline High Triglyceride 150-199 mg/dLHigh Triglyceride: 200-499 mg/dLVery High Triglyceride: greater than or equal to 5OO mg/dL Cholesterol 207(H) <200 mg/dL [facility] Comment:Desirable Cholestero l: less than 200 mg/dLBorderline High Cholesterol: 200-239 mg/dLHigh Cholesterol: greater than 239 mg/dL LDL Cholesterol Calculated 124(H) <100 mg/dL [facility] Comment:Desirable LDL: less than 100 mg/dLNear Optimal/Above Optimal LDL: 110- 129 mg/dLBorderline High LDL: 130-159 mg/dLHigh LDL: 160-189 mg/dLVery High LDL: greater than or equal to 190 mg/dL HDL Cholesterol 41 >40 mg/dL [facility] Comment:Desirable HDL: great er than 40 mg/dL Note: This HDL assay may give artificially low results in patients with liver disease. Blood 05/19/2024 11:0 0 AM EDT 05/19/2024 1:20 PM EDT Leesa Wasserman MD LAB BLOOD ORDERABLES Final Result [facility] [address] [place] [phone] * Image-Guided Pap with Age-Based Screening??with CT/NG,??Trichomonas (07/03/2023 10:41 AM EST) Trichomonas (NAAT) Not Detected Not Detected [facility] Comment:Methodology: Transcr iption Mediated Amplification(TMA)The analytical performance characteristics of thisassay have been determined by [facility], [place], [place]. The modificationshave not been cleared or approved by the FDA. Thisassay has been validated pursuant to the CLIAregulations and is used for clinical purposes.For additional information, please refer tohttp://education.GoChime.Appsee/faq/Trichomonastma (This link is being providedfor information/educational purposes only).THIS TEST WAS PERFORMED AT:[employer] [place] [phone] ALLAN MD,PHD CTNG Ref Lab Not Detected Not Detected [facility] NG Ref Lab Not Detected Not Detected [facility] Comment:Methodology: Transcr iption Mediated Amplification(TMA) to detect RNA.The analytical performance characteristics of thisassay, when used to test SurePath specimens havebeen determined by [employer]. The modificationshave not been cleared or approved by the FDA.This assay has been validated pursuant to the CLIAregulations and is used for clinical purposes.For additional information, please refer tohttps://[employer]/faq/CFJ430(This link is being provided for information/educational purposes only).THIS TEST WAS PERFORMED AT:[employer]/[facility] [place] [address]ARWUZQXRAYMUNDO ALLAN MD,PHD 07/03/2023 10:4 1 AM EST 07/04/2023 9:02 AM EST Leesa Wasserman MD LAB CYTOLOGY ORDERABL ES Final Result [facility] [address] [place] [phone] * HPV mRNA E6/E7 w/Reflex to HPV Genotypes 16, 18/45 (07/03/2023 10:41 AM EST) HPV nRNA E6/E7 Not Detected Not Detected [facility] Comment:Methodology: Transcr iption-Mediated AmplificationThis assay detects E6/E7 viral messenger RNA (mRNA) from 14high-risk HPV types (16,18,31,33,35,39,45,51,52,56,58,59,66,68).Cervical sources are required for HPV testing.If a vaginal source from a patient who has had atotal hysterectomy with removal of cervix wassubmitted, please contact the testing laboratoryfor alternative testing options.For additional information, please refer tohttp://[employer]/faq/FWS869f1(This link if provided for information/educational purposes only.)THIS TEST WAS PERFORMED AT:[employer] [address] [address]AFOMSGORDO BARROW MD HPV mRNA E6/E7 WIP [facility] HPV 16 RNA [facility] HPV 18/45 RNA [facility] 07/03/2023 10:4 1 AM EST 07/04/2023 8:10 AM EST us Leesa Wasserman MD LAB CYTOLOGY ORDERABL ES Final Result [facility] [address] [place] [phone] * BI Mammogram Screening Tomosynthesis Bilateral (03/13/2023 1:46 PM EDT) Anatomical Region Laterality Modality Breast Bilateral Mammography 03/13/2023 1:46 PM EDT Narrative 04/08/2023 1:29 PM EDT [address] [place] [address] Mammography Report Signed Patient: Leesa Reyes MR#: [id number] : 1970 Acct:[id number] Age/Sex: 52 / F ADM Date: 03/13/23 Loc: HO.MAMMO Attending Dr: Leesa Wasserman MD Ordering Physician: Leesa Rapp MD Results: Date of Service: 03/13/23 Follow Up: Procedure(s): MM tomosynthesis screening BI Accession Number(s): [id number] cc: Leesa Rapp MD EXAMINATION: MM SCREENING [...] in OV> 04/08/23 1327 DD/ 1346 TD/TT: Visitor Service Assistant: Procedure Note Donotuseinterpreter, Image - 04/08/2023 [facility] [address] [place] [address] Mammography Report Signed Patient: Leesa Reyes MMR#: [id number] : 1970Acct:[id number] Age/Sex: 52 / FADM Date: 03/13/23 Loc: [facility] Attending Dr: Leesa Wasserman MD Ordering Physician: Leesa Rapp MDResults: Date of Service: 03/13/23Follow Up: Procedure(s): MM tomosynthesis screening BI Accession Number(s): [id number] cc: Leesa Rapp MD EXAMINATION: MM SCREENING [...] in OV> 04/08/23 1327 DD/ 1346 TD/TT: Visitor Service Assistant: us Leesa Wasserman MD IMG BI PROCEDURES Fin al Result * OCCULT BLOOD STOOL (12/16/2019 4:02 PM EDT) OCCULT BLOOD STOOL NEG NEG [facility] 12/16/2019 4:02 PM EDT us Historical Provider LAB BODY FLUIDS AND STOOL S ORDERABLES Final Result [facility] [address] [place] [address], from Last 3 Months or Most Recently Relevant to Health Maintenance Insurance [facility] * Guarantor: Leesa Reyes Account Type Relation to Patient Date of Phone Billing Address Personal/Family Self [address] [place] [address] * Guarantor: Leesa Reyes Account Type Relation to Patient Date of Phone Billing Address Personal/Family Self [address] [place] [address] * Guarantor: Leesa Reyes Account Type Relation to Patient Date of Phone Billing Address Personal/Family Self [address] [place] [address] Care Teams Stuffed Casing Tier Relationship Specialty Start Date End Date Leesa Rapp MD [address] [place] [address] PCP - General Family Medicine 10/15/19
--- OUTSIDE RECORDS SUMMARY | 2025-04-23 02:52 | XMS_ITS | Encounter Summary ---
Author Organization [employer] Address [address] [place] [address] [address] [place] [address] Care Team Providers Care Eap Counselor Name Role Phone Leesa Rapp MD Primary Care Provide r Encounter Details Date Type Department Care Team (Late st Contact Info) Description 09/04/2022 Orders Only [facility] [address] [place] [phone] Alayna Delcid LPN Social History Tobacco Use [...] 10:45 AM EDT Office Visit [facility] [address] [place] [phone] Leesa Rapp MD [address] [place] [address] documented as of this encounter Visit Diagnoses Not on filedocumented in this encounter Care Teams Eap Counselor Relationship Specialty Start Date End Date Leesa Rapp MD [address] [place] [phone] PCP - General Family Medicine 10/15/19 documented as of this encounter
--- OUTSIDE RECORDS SUMMARY | 2025-04-23 02:52 | XMS_ITS | Encounter Summary ---
Author Organization [employer] Address [address] [facility] [address]t [place] [address] Care Team Providers Care Mechanical Test Technician Name Role Phone Leesa Rapp MD Primary Care Provide r Reason for Visit * Reason Comments Med Refill Encounter Details Date Type Department Care Team ([facility] st Contact Info) Description 12/10/2024 Refill [facility] [address] [place], [place] [phone] Leesa Rapp MD [address] [place] [address] Anxiety Social History Tobacco Use Types Packs/Day [...] Description 04/28/2025 10:45 AM EDT Office Visit [facility] [address] [place] [address] Leesa Rapp MD [address] [place] [address] documented as of this encounter Visit Diagnoses Diagnosis Anxiety Anxiety state, unspecified documented in this encounter Additional Health Concerns Assessment Noted Time PHQ-9 Depression Total Score: 0 02/20/20 24 1:02 PM EDT documented as of this encounter Care Teams Mechanical Test Technician Relationship Specialty Start Date End Date Leesa Rapp MD [address] [place] [phone] PCP - General Family Medicine 10/15/19 documented as of this encounter
[2025-04-23 03:02] LABS: CDiff Gene PCR NEGATIVE (Negative)
--- NOTE | 2025-04-23 03:13 | PM.IMHP ---
History of Present Illness Date of Service: 04/23/25 Chief Complaint: Abdominal pain 54-year-old female with a past medical history of Crohn's disease, rheumatoid arthritis, VT on Eliquis, MARISOL on nocturnal CPAP, asthma, GERD, chronic constipation, mood disorder, hypertension, recently discharged from the hospital on 03/20/2025 after being treated for Crohn's flare with steroids; presented to the hospital today with a chief complaint of abdominal pain. Patient reports that over the past 4 5 days he has been having left lower quadrant abdominal pain. Reports he has been having multiple loose watery stools with occasional blood. Denies any chest pain or palpitations. Denies any nausea or vomiting. Denies any fevers. Review of all other systems is negative except mentioned above ER course: Per ER team, patient noted to have left-sided abdominal pain; CT abdomen pelvis showed proctocolitis. Also could be related to Crohn's. Given empiric steroids. [facility] Medical History (Updated 04/23/25 @ 03:16 by Raymond Peters MD) Crohn disease Crohn's colitis Urge incontinence Stricture of colon Normocytic anemia Anxiety Sleep apnea Asthma GERD (gastroesophageal reflux disease) Pulmonary embolism Crohn's disease PTSD (post-traumatic stress disorder) Recurrent major depression-severe Hyperlipidemia Hemorrhagic cyst of ovary Kidney stones Depression Iron deficiency anemia Rheumatoid arthritis Migraine Cancer HTN (hypertension) Surgical History History of esophagogastroduodenoscopy (EGD) History of colon resection History of colon resection Hx of dilation and curettage Hx of cystoscopy Hx of cystoscopy Hx of colonoscopy (~10/2018) Hx of endoscopy Social History Household Members: None Housing: Apartment Are you a primary patient care technician to a significant other at home: No Do you presently have visiting nurse or other home services: Yes (RADIOLOGY RN) Alcohol intake: never Patient Tobacco Use Status: Former Tobacco user Tobacco use type: Cigarette Cigarettes Per Day: 1 Years Smoked: 10 Smoked in Last 30 Days: No e-Cigarette/Vaping Use: Former Use Second Hand Smoke Exposure: No Substance Use Type: Marijuana Advance Directives: Yes Advance Directives on File: Yes Advance Directives Date on File: 02/13/24 service: No Current occupational status: unemployed and disabled Sexual orientation: Straight/Heterosexual Meds Allergies Allergy/AdvReac Type Severity Reaction Status Date / Time aspirin (ASA) Allergy Intermediate RASH Verified 04/22/25 23:52 azathioprine (From IMURAN) Allergy Intermediate PANCREATIC Verified 04/22/25 23:52 INFLAMMATION ibuprofen (IBUPROFEN) Allergy Intermediate TOLD NOT Verified 04/22/25 23:52 TO TAKE levofloxacin (From LEVAQUIN) Allergy Mild YEAST Verified 04/22/25 23:52 INFECTIONS Home Medications ?Medication ?Instructions ?Recorded ?Confirmed ?Last Taken ?Type docusate sodium 100 mg capsule 1 cap PO BID PRN Constipation 03/22/21 03/16/25 03/15/25 History montelukast 10 mg tablet 1 tab PO BEDTIME 03/22/21 03/16/25 03/15/25 History multivitamin 1 tab PO QAM 03/22/21 03/16/25 03/15/25 History albuterol sulfate 90 mcg/actuation 2 puff PO Q4H PRN Shortness Of 06/13/21 03/16/25 03/15/25 History aerosol inhaler (ProAir HFA) Breath hydroxyzine HCl 25 mg tablet 1 tab PO BID PRN Anxiety 06/25/21 03/16/25 03/15/25 History budesonide-formoterol HFA 160 2 puff PO BID 09/08/21 03/16/25 03/15/25 History mcg-4.5 mcg/actuation aerosol inhaler (Symbicort) gabapentin 100 mg capsule 100 mg PO BID 01/28/22 03/16/25 03/15/25 History zolpidem 5 mg tablet 5 mg PO BEDTIME PRN insomnia 12/17/23 03/16/25 03/15/25 History acetaminophen 325 mg tablet 650 mg PO Q4H PRN Pain 02/11/24 03/16/25 03/15/25 History (Tylenol) calcium carbonate 500 mg PO BID 02/11/24 03/16/25 03/15/25 History carboxymethylcellulose sodium 1 % 1 drp ophthalmic (eye) BID PRN Dry 02/11/24 03/16/25 03/15/25 History eye liquid gel drops Eye(S) clonazepam 0.5 mg tablet 0.5 mg PO BEDTIME PRN Anxiety 0603/16/25 03/15/25 History melatonin 3 mg tablet 3 mg PO BEDTIME PRN Sleep 02/11/24 03/16/25 03/15/25 History topiramate 100 mg tablet 100 mg PO BID 02/11/24 03/16/25 03/15/25 History amlodipine 2.5 mg tablet 2.5 mg PO DAILY PRN Hypertension 03/16/25 03/16/25 03/15/25 History sertraline 25 mg tablet (Zoloft) 25 mg PO DAILY 03/16/25 03/16/25 03/15/25 History ustekinumab 90 mg/mL subcutaneous 90 mg subcut Q4W 03/16/25 03/16/25 02/17/25 History syringe (Stelara) Physical Exam Vital Signs and Narrative: Vital Signs: Last Vital Signs Temp 99.0 F 04/23/25 02:11 Pulse 69 04/23/25 02:11 Resp 18 04/23/25 02:11 BP 119/56 L 04/23/25 02:11 Pulse Ox 96 04/23/25 02:11 O2 Del Method Room Air 04/23/25 02:11 BMI result Body Mass Index 26.5 Gen: Appears be in no acute distress HEENT: NCAT, Moist mucosa. Pulmonary: Vesicular breath sounds, fair air entry CVS: Normal S1-S2 Abdomen: BS+, Soft, mildly tender, no guarding no rigidity Extremities: Warm well perfused Neuro: Alert and awake. Results Labs 04/23/25 00:45 04/23/25 00:45 Labs: Laboratory Results - last 24 hr 04/23/25 04/23/25 04/23/25 00:45 01:44 02:07 MCV 82.0 MCH 27.6 MCHC 33.7 RDW 16.8 H Plt Count 239 MPV 11.3 Immature Gran % (Auto) 0.4 Neut % (Auto) 64.6 Lymph % (Auto) 19.6 L [place] % (Auto) 14.4 H Eos % (Auto) 0.6 Baso % (Auto) 0.4 Lymph # (Auto) 1.8 [place] # (Auto) 1.3 H Eos # (Auto) 0.1 Baso # (Auto) 0.0 Abs Immat Gran (auto) 0.04 H Absolute Neuts (auto) 5.8 Absolute Nucleated RBC 0.000 Nucleated RBC % (auto) 0.0 Anion Gap 15 Estim Creat Clear Calc 67.0 Estimated GFR 58 Random Glucose 97 Calcium 8.9 D Magnesium 2.3 Total Bilirubin 0.2 AST 19 ALT 15 Alkaline Phosphatase 83 C-Reactive Protein 6.78 H Total Protein 7.1 Albumin 4.0 Lipase 18 Urine Color Yellow Urine Appearance Clear Urine pH 6.0 Ur Specific [place] 1.025 Urine Protein Negative Urine Glucose (UA) Negative Urine Ketones Negative Urine Blood Moderate (2+) H Urine Nitrite Negative Ur Leukocyte Esterase Negative Urine RBC 3-5 H Urine WBC 6-10 H Ur Squamous Epith Cells 6-10 Urine Bacteria None Seen Hyaline Casts 0-2 C. difficile Tox B Gene NEGATIVE Assessment and Plan (1) Proctocolitis: Status: Acute Plan 54-year-old female with a past medical history of Crohn's disease, rheumatoid arthritis, VT on Eliquis, MARISOL on nocturnal CPAP, asthma, GERD, chronic constipation, mood disorder, hypertension, recently discharged from the hospital on 03/20/2025 after being treated for Crohn's flare with steroids; presented to the hospital today with a chief complaint of abdominal pain. Noted to have proctocolitis. Proctocolitis: ? Crohn's flare: Continue empiric antibiotics-ceftriaxone, Flagyl Patient received a dose of steroids in the ER. Will defer to further continuation of steroids for Gastroenterology consult in a.m.. Supportive care NPO Gentle IV fluids Hypertension: Patient's amlodipine on hold for now Mood disorder: Continue home Risperdal, Topamax, gabapentin, sertraline, Klonopin Rheumatoid arthritis: Patient on methotrexate every Friday VT: Continue home Eliquis MARISOL: Nocturnal CPAP DVT prophylaxis: Patient on Eliquis Code status: Full code Quality Stroke Does the patient have a stroke diagnosis?: No VTE Prior VTE?: No VTE Risk Level:: Medical - moderate - high VTE Device Contraindication: Treatment Not Indicated VTE Drug Contraindication: N/A - Med Ordered
[2025-04-23] MEDS: Dextrose 5 % and 0.45 % NaCl 1,000 ML 100 ML IVCONT ×2 (03:34→15:16)
[2025-04-23] MEDS: metroNIDAZOLE/NS 500 MG/100 ML PIGGYBACK 100 MG IV ×3 (03:40→19:25)
[2025-04-23 05:37] LABS: MANUAL DIFF FLAG NO
[2025-04-23 05:38] LABS: Hematocrit 34.2 % (37.0-47.0); Hemoglobin 11.5 g/dl (12.0-16.0); Imm Gran Abs Auto 0.05 X10*3/uL (0.00-0.03); Imm Gran Pct Auto 0.5 % (0.0-0.4); Lymphocytes Absolute Auto 1.1 X10*3/uL (1.2-4.9); Mean Corpuscular HGB Conc 33.6 g/dl (31.0-35.0); Mean Corpuscular Hemoglobin 27.3 pg (27.0-33.0); Mean Corpuscular Volume 81.2 fL (80.0-98.0); NRBC Abs Auto 0.000 X10*3/uL (0.0-0.012); NRBC Pct Auto 0.0 /100WBC (0.0-0.2); Platelet Count 236 X10*3/uL (160-400); Red Blood Count 4.21 X10*6/uL (4.20-5.50); White Blood Count 10.6 X10*3/uL (4.8-10.8)
[2025-04-23 05:53] LABS: Alanine Aminotransferase 12 U/L (0-31); Albumin Level 3.8 g/dL (3.5-5.0); Alkaline Phosphatase 80 U/L (39-117); Anion Gap 13 (12-20); Aspartate Amino Transferase 19 U/L (5-31); Blood Urea Nitrogen 13 mg/dL (9-16); Calcium 8.3 mg/dL (8.4-10.2); Carbon Dioxide 21 mmol/L (22-29); Chloride 109 mmol/L (96-108); Creatinine Clr Calc Pharmacy 87.2; Estimated Glomerular Filt Rate > 60; Potassium 3.3 mmol/L (3.3-5.1); Sodium 140 mmol/L (135-145); Total Protein 7.0 g/dL (6.5-8.0)
--- NOTE | 2025-04-23 07:07 | PC.NURSE ---
This RN assumed care of patient @ 0700 Patient was using the restroom. Independently ambulating without assisting device. Patient reports still having diarrhea Patient NPO, currently running D5 1/2NS @ 100 ml /hr IV 20G LAC Patient c/o ABD pain rated 8/10. Patient medicated with dilaudid @0530 this AM VSS and up to date Patient awaiting bed assignment
--- NOTE | 2025-04-23 09:22 | PC.NURSE ---
Patient refused gabapentin Patient states I dont like to take it because of the side effects
--- NOTE | 2025-04-23 09:37 | PHA.MEDREC ---
Pharmacy Consult ? Medication Reconciliation Pharmacy has completed the medication reconciliation.Med rec complete, spoke with patient and compared with pharmacy claim history. Patient did state she does not take amlodipine every day but will hold it if her blood pressure is low
[2025-04-23] MEDS: oxyBUTYnin chloride ER 5 MG TAB.ER.24 15 MG PO (10:13)
[2025-04-23] MEDS: Fluticasone/Vilanterol 200/25 BLST.W.DEV 1 PUFF INHALE (12:42)
--- NOTE | 2025-04-23 14:30 | P.PNIM_ITS ---
Subjective Subjective Date of Service: 04/23/25 Interval History: Feeling a little better Diffuse abd pain continues Still having bright red blood per rectum; last BM solid Some nausea, no vomiting Has been able to tolerate a small amount of liquid Slight MARIN Review of Systems Review of Systems: Yes all other systems are reviewed and are negative Physical Exam 2 Exam: Exam: General: AOx3, no acute distress Resp: CTA bilaterally CVS: S1, S2, RRR GI: Diffuse abd tenderness, +BS, no distention Skin: Warm, dry Neuro: Cranial nerves II-XII grossly intact bilaterally. Motor grossly intact bilaterally Extremities: No edema Psych: Appropriate affect Vital Signs: Vital Signs: Last Vital Signs Temp 98.7 F 04/23/25 13:48 Pulse 67 04/23/25 13:48 Resp 17 04/23/25 13:48 BP 107/57 L 04/23/25 13:48 Pulse Ox 95 04/23/25 13:48 O2 Del Method Room Air 04/23/25 13:48 BMI result Body Mass Index 26.8 Objective Data Active Medications Acetaminophen (Acetaminophen 325 Mg Tablet) 650 mg PO Q6H PRN PRN Reason: Pain, Mild 1-3,fever,headache Albuterol Sulfate (Albuterol Sulfate 90 Mcg 8 Gm Inhaler) 2 puff INHALE Q4H PRN PRN Reason: Shortness of Breath Amlodipine Besylate (Amlodipine Besylate 2.5 Mg Tablet) 2.5 mg PO DAILY PRN; Protocol PRN Reason: Hypertension Apixaban (Apixaban 2.5 Mg Tablet) 2.5 mg PO BID [facility] Last Admin: 04/23/25 09:16 Dose: 2.5 mg Documented By: ADIEL Buspirone HCl (Buspirone Hcl 5 Mg Tablet) 5 mg PO DAILY [facility] Last Admin: 04/23/25 10:13 Dose: 5 mg Documented By: ADIEL Calcium Carbonate (Calcium Carbonate 750 Mg Tab.Chew) 750 mg PO Q4H PRN PRN Reason: Heartburn Ceftriaxone Sodium (Ceftriaxone Sodium 1 Gm Vial) 1 gm IVPUSH Q24H [facility] Last Admin: 04/23/25 03:40 Dose: 1 gm Documented By: JERAMIE Clonazepam (Clonazepam 0.5 Mg Tablet) 0.5 mg PO BEDTIME [facility] Cyclobenzaprine HCl (Cyclobenzaprine Hcl 10 Mg Tablet) 10 mg PO TID PRN PRN Reason: Muscle Spasm Docusate Sodium (Docusate Sodium 100 Mg Capsule) 100 mg PO BID PRN PRN Reason: Constipation Fluticasone/Vilanterol (Fluticasone/Vilanterol 200/25 Blst.W.Dev) 1 puff INHALE RDAILY [facility] Last Admin: 04/23/25 12:42 Dose: 1 puff Documented By: ADIEL Gabapentin (Gabapentin 100 Mg Capsule) 100 mg PO BID [facility] Last Admin: 04/23/25 09:21 Dose: Not Given Documented By: ADIEL Non-Admin Reason: Patient Refused Hydromorphone HCl (Hydromorphone Hcl 0.5 Mg/0.5 Ml Syringe) 0.5 mg IVPUSH Q4H PRN; Protocol PRN Reason: Pain, Severe (Pain Scale 7-10) Last Admin: 04/23/25 05:19 Dose: 0.5 mg Documented By: JERAMIE Hydroxyzine HCl (Hydroxyzine Hcl 10 Mg Tablet) 10 mg PO TID PRN PRN Reason: Anxiety Dextrose/Sodium Chloride (D51/2ns) 1,000 mls @ 100 mls/hr IVCONT .Q10H [facility] Last Admin: 04/23/25 03:34 Dose: 100 mls/hr Documented By: JERAMIE Metronidazole (Flagyl) 500 mg in 100 mls @ 100 mls/hr IV Q8H [facility] Last Infusion: 04/23/25 12:38 Dose: Infused Documented By: ADIEL Lactulose (Lactulose 20 Gm/30 Ml Solution) 20 gm PO DAILY PRN PRN Reason: Constipation Magnesium Hydroxide (Milk Of Magnesia 30 Ml Oral.Susp) 30 ml PO DAILY PRN PRN Reason: Constipation Melatonin (Melatonin 3 Mg Tablet) 6 mg PO BEDTIME PRN PRN Reason: Insomnia Methotrexate (Methotrexate Sodium 2.5 Mg Tablet) 25 mg PO FR@0900 [facility] Montelukast Sodium (Montelukast Sodium 10 Mg Tablet) 10 mg PO BEDTIME [facility] Multivitamins/Vitamin C (Multivitamin Tablet) 1 tab PO DAILY [facility] Non-Formulary Medication (Tofacitinib [Xeljanz]) 10 mg PO BID [facility] Oxybutynin Chloride (Oxybutynin Chloride Er 5 Mg Tab.Er.24) 15 mg PO DAILY [facility] Last Admin: 04/23/25 10:13 Dose: 15 mg Documented By: ADIEL Risperidone (Risperidone 1 Mg Tablet) 1 mg PO BID [facility] Last Admin: 04/23/25 09:16 Dose: 1 mg Documented By: ADIEL Sertraline HCl (Sertraline Hcl 25 Mg Tablet) 25 mg PO DAILY [facility] Last Admin: 04/23/25 09:16 Dose: 25 mg Documented By: ADIEL Sodium Chloride (0.9 % Sodium Chloride Flush 3 Ml Syringe) 3 ml IVFLUSH QSHIFT [facility] Last Admin: 04/23/25 09:16 Dose: Not Given Documented By: ADIEL Non-Admin Reason: IV Running Topiramate (Topiramate 100 Mg Tablet) 100 mg PO BID [facility] Last Admin: 04/23/25 09:16 Dose: 100 mg Documented By: ADIEL Vitamin D (Cholecalciferol (Vitamin D3) 25 Mcg Tablet) 50 mcg PO DAILY [facility] Zolpidem Tartrate (Zolpidem Tartrate 5 Mg Tablet) 5 mg PO BEDTIME [facility] Labs 04/23/25 05:22 04/23/25 05:22 Labs: Laboratory Results - last 24 hr 04/23/25 04/23/25 04/23/25 00:45 01:44 02:07 MCV 82.0 MCH 27.6 MCHC 33.7 RDW 16.8 H Plt Count 239 MPV 11.3 Immature Gran % (Auto) 0.4 Neut % (Auto) 64.6 Lymph % (Auto) 19.6 L [place] % (Auto) 14.4 H Eos % (Auto) 0.6 Baso % (Auto) 0.4 Lymph # (Auto) 1.8 [place] # (Auto) 1.3 H Eos # (Auto) 0.1 Baso # (Auto) 0.0 Abs Immat Gran (auto) 0.04 H Absolute Neuts (auto) 5.8 Absolute Nucleated RBC 0.000 Nucleated RBC % (auto) 0.0 Anion Gap 15 Estim Creat Clear Calc 67.0 Estimated GFR 58 Random Glucose 97 Calcium 8.9 D Magnesium 2.3 Total Bilirubin 0.2 AST 19 ALT 15 Alkaline Phosphatase 83 C-Reactive Protein 6.78 H Total Protein 7.1 Albumin 4.0 Lipase 18 Urine Color Yellow Urine Appearance Clear Urine pH 6.0 Ur Specific [place] 1.025 Urine Protein Negative Urine Glucose (UA) Negative Urine Ketones Negative Urine Blood Moderate (2+) H Urine Nitrite Negative Ur Leukocyte Esterase Negative Urine RBC 3-5 H Urine WBC 6-10 H Ur Squamous Epith Cells 6-10 Urine Bacteria None Seen Hyaline Casts 0-2 C. difficile Tox B Gene NEGATIVE 04/23/25 05:22 MCV 81.2 MCH 27.3 MCHC 33.6 RDW 16.7 H Plt Count 236 MPV 11.5 Immature Gran % (Auto) 0.5 H Neut % (Auto) 79.7 H Lymph % (Auto) 10.6 L [place] % (Auto) 8.0 Eos % (Auto) 0.6 Baso % (Auto) 0.6 Lymph # (Auto) 1.1 L [place] # (Auto) 0.9 Eos # (Auto) 0.1 Baso # (Auto) 0.1 Abs Immat Gran (auto) 0.05 H Absolute Neuts (auto) 8.4 H Absolute Nucleated RBC 0.000 Nucleated RBC % (auto) 0.0 Anion Gap 13 Estim Creat Clear Calc 87.2 Estimated GFR > 60 Random Glucose 113 Calcium 8.3 L D Magnesium Total Bilirubin 0.1 AST 19 ALT 12 Alkaline Phosphatase 80 C-Reactive Protein Total Protein 7.0 Albumin 3.8 Lipase Urine Color Urine Appearance Urine pH Ur Specific [place] Urine Protein Urine Glucose (UA) Urine Ketones Urine Blood Urine Nitrite Ur Leukocyte Esterase Urine RBC Urine WBC Ur Squamous Epith Cells Urine Bacteria Hyaline Casts C. difficile Tox B Gene Assessment and Plan (1) Proctocolitis: Status: Acute Plan 54-year-old female with a past medical history of Crohn's disease, rheumatoid arthritis, VT on Eliquis, MARISOL on nocturnal CPAP, asthma, GERD, chronic constipation, mood disorder, hypertension, recently discharged from the hospital on 03/20/2025 after being treated for Crohn's flare with steroids; presented to the hospital today with a chief complaint of abdominal pain. Noted to have proctocolitis. Proctocolitis: ? Crohn's flare: Continue empiric antibiotics withceftriaxone, Flagyl, day 2 Patient received a dose of steroids in the ER. Will defer to further continuation of steroids for Gastroenterology consult in a.m.. Supportive care Clear liquid diet for now, advance as tolerated Gentle IV fluids Hematochezia Pt reports BRBPR, likely in the setting of Crohn's flare Hold Eliquis Follow H&H Hypertension: Patient's amlodipine on hold for now due to soft BP Mood disorder: Continue home Risperdal, Topamax, gabapentin, sertraline, Klonopin Rheumatoid arthritis: Patient on methotrexate every Friday VT: Home Eliquis on hold, serial compression devices MARISOL: Nocturnal CPAP Pt requires continued hospitalization as she has not yet tolerating a solid diet, and will continue to need IVF, supportive care, empiric IV antibiotics, and specialist consultation with GI. Quality Stroke Does the patient have a stroke diagnosis?: No VTE Prior VTE?: No VTE Risk Level:: Medical - moderate - high VTE Device Contraindication: Treatment Not Indicated VTE Drug Contraindication: N/A - Med Ordered
--- NOTE | 2025-04-23 14:35 | MHC.CM.PN ---
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 For DME: she has walker, cane, shower chair, commode. PCP is Dr. Crowe. Pt. to arrange transport home at [place], DCP: home, resume OFFICE COORDINATOR RECEPTIONIST services.
[2025-04-23 14:37] LABS: E. coli EAEC Not Detected (Not Detect.); E. coli EPEC Not Detected (Not Detect.); E. coli ETEC Not Detected (Not Detect.); E. coli STEC Not Detected (Not Detect.); Shigella sp./EIEC Not Detected (Not Detect.)
--- NOTE | 2025-04-23 20:27 | P.EN_ITS ---
Event Note Date of Service: 04/23/25 Event Note: GI Consult-Full note dictated Imp: Probable flare of Crohn's superimposed on baseline chronic abdominal pain and diarrhea in relation to all of her surgeries. Stool specimens are negative for any sign of infection at this time. She appears very comfortable and abdomen is benign except for chronic tenderness. Rec: Start prednisone 40mg po tonight, supportive care, analgesics, clear liquids for now and advance as tolerated. Would D/C antibiotics. She can then c ontinue her outpatient regimen with her biologic agent and F/U with Dr. Palafox once she is discharged. If not improving within 24-48 hours she can then be switched to IV steroids if need be. D/W patient. Thanks. Time Spent With Patient Time: Total time managing care of this patient today ____ minutes.
--- NOTE | 2025-04-23 20:29 | PC.NURSE ---
Pt c/o nausea no vomiting. Zofran not due as it is q8hrs. Reached out to who okayed an early dose.
--- NOTE | 2025-04-23 21:34 | CONS_ITS ---
DATE OF SERVICE: 04/23/2025 REASON FOR CONSULTATION: Crohn's disease, diarrhea, and abdominal pain. HISTORY OF PRESENT ILLNESS: The patient is a 54-year-old female with long-standing Crohn's disease and with a very complicated course over the years. She has had at least 2 bowel surgeries including removal of a portion of the left colon with a temporary colostomy and more recently another surgery with removal of a portion of the colon and a temporary ileostomy, which was subsequently reversed. She has been on a multitude of different biologic agents and most recently has been using Stelara every 4 weeks. She was most recently admitted here just last month and was treated with a short course of IV steroids and some antibiotics. She reports that she most recently was down to 10 mg of prednisone daily. She has not been using any antibiotics nor NSAIDs at home by her history. Due to all of her surgeries, she does have chronic pain and fairly frequent loose stools. However, more recently she has been having increasing diarrhea and increasing pain. She does notice a small amount of bright red blood in the diarrhea. She has had some nausea but no vomiting. She describes a fever at home up to 100.4. She denies any melena. She denies any signs of jaundice. She denies any dysphagia nor odynophagia. Her most recent endoscopies were in October with Dr. Palafox. The upper endoscopy revealed some gastritis, but no other significant abnormalities. The colonoscopy revealed some fairly diffuse colitis with friability and small ulcerations from the sigmoid colon to the cecum. Biopsies from the stomach were negative for H pylori. Gastric biopsies were also negative for acid-fast bacilli and fungi. Colon biopsies showed chronic colitis that were negative for dysplasia. MEDICATIONS: At home included Singulair, vitamins, albuterol inhaler, hydroxyzine, Symbicort, gabapentin, Ambien, Tylenol, clonazepam, melatonin, topiramate, amlodipine, sertraline, and Stelara. However, she did show me a picture of a bottle of Xeljanz as she reports that she had also been using but ran out of that about 2 or 3 weeks ago. PAST MEDICAL HISTORY: Crohn's disease with surgeries as above. Hyperlipidemia. Anemia. Sleep apnea. Asthma. PTSD. Depression. SOCIAL HISTORY: She does not smoke nor use any alcohol. REVIEW OF SYSTEMS: CONSTITUTIONAL: She tends to feel fairly poor and easily fatigued in general. CARDIAC: No chest pain. PULMONARY: No coughing or hemoptysis. GI: As above. URINARY: No dysuria. No hematuria. NEUROLOGIC: No headache or seizures. PHYSICAL EXAMINATION: GENERAL: The patient is a pleasant, alert, comfortable-appearing female, in no distress. SKIN: Warm and dry. HEENT: Anicteric sclerae. NECK: Supple. CARDIAC: Normal S1, S2. ABDOMEN: Soft. Normal bowel sounds with some mild diffuse tenderness but without palpable mass. There was no rebound or guarding. LABORATORIES: Her CT scan described some circumferential bowel wall thickening in the left colon and rectum, but no sign of any abscess. This was felt to represent some component of colitis. There are no intraabdominal fluid collections. White blood cell count 9.0, hemoglobin 11.8, MCV 82, platelets 239,000. Normal electrolytes, BUN 19, creatinine 1.0. Normal LFTs. C-reactive protein is 6.8, albumin 4.0, lipase 18. Stool was negative for C difficile. Her stool GI panel was negative. IMPRESSION: Given the patient's clinical history, this does seem consistent with a flare of the colitis given the increased frequency of her bowel movements, increasing pain and some bleeding. Unfortunately, she does have chronic symptomatology in relation to all of her surgeries and just the chronic colitis in general, which seems to be very difficult to control given the fairly recent colonoscopy showing active disease despite her treatment. At this point, it does not appear that she has an infection and I would recommend the antibiotics to be stopped. I think she can increase the prednisone to 40 mg daily but if within 24 to 48 hours it is not better, then she may need IV hydrocortisone. I would continue liquids and advance her diet as tolerated. I will continue to follow her laboratories and continue supportive care with analgesics. Hopefully, she could be discharged in the next day or 2, but if things are not improving, I would then switch her to IV steroids. She will need to review her outpatient regimen with her primary board mill supervisor, Dr. Palafox, since it appears that she is on both Stelara and Xeljanz. It is not entirely clear to me as whether or not she is truly on both of those. Of note, she also has a board mill supervisor in [place] where she also receives care and recommendations. I did review this with the patient in detail. Thank you for the consultation. MD LINDSEY Abdalla/RITA / [phone] BIBI
[2025-04-24] VITALS (8 sets, daily range): BP systolic 102–129; BP diastolic 60–71; PULSE 54–78; RESP 12–20; TEMP 36–36.5; O2SAT 95–99
[2025-04-24] MEDS: metroNIDAZOLE/NS 500 MG/100 ML PIGGYBACK 100 MG IV (03:18)
[2025-04-24] MEDS: Dextrose 5 % and 0.45 % NaCl 1,000 ML 100 ML IVCONT ×3 (03:18→21:46)
[2025-04-24] MEDS: oxyBUTYnin chloride ER 5 MG TAB.ER.24 15 MG PO (08:07)
[2025-04-24] MEDS: Fluticasone/Vilanterol 200/25 BLST.W.DEV 1 PUFF INHALE (10:59)
--- NOTE | 2025-04-24 17:02 | HO.PM.IMPN ---
Subjective Subjective Date of Service: 04/24/25 Interval History: Feels only a little bit better Tolerating some clear liquids Still with abd pain and diarrhea with a little bit of bright red blood Review of Systems Review of Systems: Yes all other systems are reviewed and are negative Physical Exam Exam: Exam: General: AOx3, no acute distress Resp: CTA bilaterally CVS: S1, S2, RRR GI: +BS, no distention, diffuse upper abd tenderness Skin: Warm, dry Neuro: Cranial nerves II-XII grossly intact bilaterally. Motor grossly intact bilaterally Extremities: No edema Psych: Appropriate affect Vital Signs: Vital Signs: Last Vital Signs Temp 97.3 F 04/24/25 15:31 Pulse 56 04/24/25 15:31 Resp 16 04/24/25 15:31 BP 102/61 04/24/25 15:31 Pulse Ox 97 04/24/25 15:31 O2 Del Method Room Air 04/24/25 15:31 O2 Flow Rate 9 04/24/25 03:36 BMI result Body Mass Index 27.2 Objective Data Active Medications Acetaminophen (Acetaminophen 325 Mg Tablet) 650 mg PO Q6H PRN PRN Reason: Pain, Mild 1-3,fever,headache Last Admin: 04/24/25 08:11 Dose: 650 mg Documented By: DIANE Albuterol Sulfate (Albuterol Sulfate 90 Mcg 8 Gm Inhaler) 2 puff INHALE Q4H PRN PRN Reason: Shortness of Breath Amlodipine Besylate (Amlodipine Besylate 2.5 Mg Tablet) 2.5 mg PO DAILY PRN; Protocol On Hold: 04/23/25 14:39 PRN Reason: Hypertension Apixaban (Apixaban 2.5 Mg Tablet) 2.5 mg PO BID JUANCHO On Hold: 04/23/25 14:34 Last Admin: 04/23/25 09:16 Dose: 2.5 mg Documented By: ADIEL Buspirone HCl (Buspirone Hcl 5 Mg Tablet) 5 mg PO DAILY [facility] Last Admin: 04/24/25 08:06 Dose: 5 mg Documented By: DIANE Calcium Carbonate (Calcium Carbonate 750 Mg Tab.Chew) 750 mg PO Q4H PRN PRN Reason: Heartburn Clonazepam (Clonazepam 0.5 Mg Tablet) 0.5 mg PO BEDTIME [facility] Last Admin: 04/23/25 20:29 Dose: 0.5 mg Documented By: BASSAM Cyclobenzaprine HCl (Cyclobenzaprine Hcl 10 Mg Tablet) 10 mg PO TID PRN PRN Reason: Muscle Spasm Docusate Sodium (Docusate Sodium 100 Mg Capsule) 100 mg PO BID PRN PRN Reason: Constipation Fluticasone/Vilanterol (Fluticasone/Vilanterol 200/25 Blst.W.Dev) 1 puff INHALE RDAILY [facility] Last Admin: 04/24/25 10:59 Dose: 1 puff Documented By: JAIME Gabapentin (Gabapentin 100 Mg Capsule) 100 mg PO BID [facility] Last Admin: 04/24/25 08:09 Dose: Not Given Documented By: DIANE Non-Admin Reason: Patient Refused Hydromorphone HCl (Hydromorphone Hcl 0.5 Mg/0.5 Ml Syringe) 0.5 mg IVPUSH Q4H PRN; Protocol PRN Reason: Pain, Severe (Pain Scale 7-10) Last Admin: 04/24/25 13:35 Dose: 0.5 mg Documented By: DIANE Hydroxyzine HCl (Hydroxyzine Hcl 10 Mg Tablet) 10 mg PO TID PRN PRN Reason: Anxiety Dextrose/Sodium Chloride (D51/2ns) 1,000 mls @ 100 mls/hr IVCONT .Q10H [facility] Last Admin: 04/24/25 13:54 Dose: 100 mls/hr Documented By: DIANE Lactulose (Lactulose 20 Gm/30 Ml Solution) 20 gm PO DAILY PRN PRN Reason: Constipation Magnesium Hydroxide (Milk Of Magnesia 30 Ml Oral.Susp) 30 ml PO DAILY PRN PRN Reason: Constipation Melatonin (Melatonin 3 Mg Tablet) 6 mg PO BEDTIME PRN PRN Reason: Insomnia Last Admin: 04/23/25 20:36 Dose: 6 mg Documented By: BASSAM Methotrexate (Methotrexate Sodium 2.5 Mg Tablet) 25 mg PO FR@0900 [facility] Methylprednisolone Sodium Succinate (Methylprednisolone Sod Succ 40 Mg/Ml Vial) 20 mg IVPUSH Q8H [facility] Stop: 04/26/25 14:14 Last Admin: 04/24/25 14:09 Dose: 20 mg Documented By: DIANE Montelukast Sodium (Montelukast Sodium 10 Mg Tablet) 10 mg PO BEDTIME [facility] Last Admin: 04/23/25 20:29 Dose: 10 mg Documented By: BASSAM Multivitamins/Vitamin C (Multivitamin Tablet) 1 tab PO DAILY [facility] Last Admin: 04/24/25 08:07 Dose: 1 tab Documented By: DIANE Ondansetron HCl (Ondansetron Hcl 4 Mg/2 Ml Vial) 4 mg IVPUSH Q8H PRN PRN Reason: Nausea and Vomiting Last Admin: 04/24/25 08:11 Dose: 4 mg Documented By: DIANE Oxybutynin Chloride (Oxybutynin Chloride Er 5 Mg Tab.Er.24) 15 mg PO DAILY [facility] Last Admin: 04/24/25 08:07 Dose: 15 mg Documented By: DIANE Prednisone (Prednisone 20 Mg Tablet) 40 mg PO DAILY [facility] On Hold: 04/24/25 14:00 Last Admin: 04/24/25 08:06 Dose: 40 mg Documented By: DIANE Risperidone (Risperidone 1 Mg Tablet) 1 mg PO BID [facility] Last Admin: 04/24/25 08:07 Dose: 1 mg Documented By: DIANE Sertraline HCl (Sertraline Hcl 25 Mg Tablet) 25 mg PO DAILY [facility] Last Admin: 04/24/25 08:07 Dose: 25 mg Documented By: DIANE Sodium Chloride (0.9 % Sodium Chloride Flush 3 Ml Syringe) 3 ml IVFLUSH QSHIFT [facility] Last Admin: 04/24/25 15:21 Dose: Not Given Documented By: DIANE Non-Admin Reason: IV Running Topiramate (Topiramate 100 Mg Tablet) 100 mg PO BID [facility] Last Admin: 04/24/25 08:07 Dose: 100 mg Documented By: DIANE Vitamin D (Cholecalciferol (Vitamin D3) 25 Mcg Tablet) 50 mcg PO DAILY [facility] Last Admin: 04/24/25 08:07 Dose: 50 mcg Documented By: DIANE Zolpidem Tartrate (Zolpidem Tartrate 5 Mg Tablet) 5 mg PO BEDTIME [facility] Last Admin: 04/23/25 20:28 Dose: 5 mg Documented By: BASSAM Labs 04/23/25 05:22 04/23/25 05:22 Microbiology Microbiology Results: Microbiology 04/23/25 Unknown Urine Culture - Final Urine clean catch - Clean Catch Midstream Assessment and Plan (1) Crohn's colitis: Status: Acute Assessment and Plan: 54-year-old female with a past medical history of Crohn's disease, rheumatoid arthritis, VT on Eliquis, MARISOL on nocturnal CPAP, asthma, GERD, chronic constipation, mood disorder, hypertension, recently discharged from the hospital on 03/20/2025 after being treated for Crohn's flare with steroids; presented to the hospital today with a chief complaint of abdominal pain. Noted to have proctocolitis. Proctocolitis in the setting of Crohn's flare Empiric antibiotics with ceftriaxone and Flagyl d/c'd per GI Patient received a dose of steroids in the ER Started on prednisone 40 mg po daily by GI with little improvement Will treat with Solu-Medrol 20 mg Q8h x48 hours, then prednisone taper after that Supportive care Clear liquid diet for now, advance as tolerated Gentle IV fluids GI following Hematochezia Pt reports BRBPR, likely in the setting of Crohn's flare H&H has been stable Eliquis on hold, resume tomorrow morning if H&H still stable Follow H&H Hx of DVT Eliquis on hold due to possible hematochezia Hypertension: Patient's amlodipine on hold for now due to soft BP Mood disorder: Continue home Risperdal, Topamax, gabapentin, sertraline, Klonopin Rheumatoid arthritis: Patient on methotrexate every Friday VT: Home Eliquis on hold, serial compression devices MARISOL: Nocturnal CPAP Pt requires continued hospitalization as she has not yet tolerating a solid diet, and will continue to need IVF, supportive care, empiric IV antibiotics, and specialist consultation with GI. Quality Stroke Does the patient have a stroke diagnosis?: No VTE Prior VTE?: No VTE Risk Level:: Medical - moderate - high VTE Device Contraindication: Treatment Not Indicated VTE Drug Contraindication: N/A - Med Ordered
[2025-04-25] VITALS (9 sets, daily range): BP systolic 111–147; BP diastolic 56–73; PULSE 59–101; RESP 16–18; TEMP 36.3–36.9; O2SAT 94–98
[2025-04-25] MEDS: iohexoL 350 MG/ML 100 ML INFUS..BTL 85 ML IV (03:12)
[2025-04-25 07:39] LABS: Hematocrit 33.0 % (37.0-47.0); Hemoglobin 10.5 g/dl (12.0-16.0); Mean Corpuscular HGB Conc 31.8 g/dl (31.0-35.0); Mean Corpuscular Hemoglobin 26.8 pg (27.0-33.0); Mean Corpuscular Volume 84.2 fL (80.0-98.0); NRBC Abs Auto 0.000 X10*3/uL (0.0-0.012); NRBC Pct Auto 0.0 /100WBC (0.0-0.2); Platelet Count 230 X10*3/uL (160-400); Red Blood Count 3.92 X10*6/uL (4.20-5.50); White Blood Count 10.9 X10*3/uL (4.8-10.8)
--- NOTE | 2025-04-25 07:41 | HO.PM.IMPN ---
Subjective Subjective Date of Service: 04/25/25 Interval History: Continues to request Dilaudid q.4 p.r.n. Patient reports improvement in her abdominal pain GI saw the patient and suggested that she be has chronic abdominal pain secondary to acute on chronic Crohn's flare with 2 bowel surgeries including removal of a portion of the left colon with a temporary colostomy and more recently another surgery with removal of a portion of the colon and a temporary ileostomy, which was subsequently reversed. Addiction med consulted Diarrhea and abd pain apear to be chronic for her Physical Exam Exam: Exam: General: AOx3, no acute distress Resp: CTA bilaterally CVS: S1, S2, RRR GI: +BS, no distention, diffuse upper abd tenderness Skin: Warm, dry Extremities: No edema Psych: Anxious affect Vital Signs: Vital Signs: Last Vital Signs Temp 97.9 F 04/25/25 07:11 Pulse 60 04/25/25 07:11 Resp 18 04/25/25 07:11 BP 113/56 L 04/25/25 07:11 Pulse Ox 98 04/25/25 07:11 O2 Del Method Room Air 04/25/25 07:11 O2 Flow Rate 9 04/24/25 03:36 BMI result Body Mass Index 27.2 Objective Data Active Medications Acetaminophen (Acetaminophen 325 Mg Tablet) 650 mg PO Q6H PRN PRN Reason: Pain, Mild 1-3,fever,headache Last Admin: 04/24/25 20:18 Dose: 650 mg Documented By: DEBRA Albuterol Sulfate (Albuterol Sulfate 90 Mcg 8 Gm Inhaler) 2 puff INHALE Q4H PRN PRN Reason: Shortness of Breath Amlodipine Besylate (Amlodipine Besylate 2.5 Mg Tablet) 2.5 mg PO DAILY PRN; Protocol On Hold: 04/23/25 14:39 PRN Reason: Hypertension Apixaban (Apixaban 2.5 Mg Tablet) 2.5 mg PO BID [facility] On Hold: 04/23/25 14:34 Last Admin: 04/23/25 09:16 Dose: 2.5 mg Documented By: ADIEL Buspirone HCl (Buspirone Hcl 5 Mg Tablet) 5 mg PO DAILY [facility] Last Admin: 04/24/25 08:06 Dose: 5 mg Documented By: DIANE Calcium Carbonate (Calcium Carbonate 750 Mg Tab.Chew) 750 mg PO Q4H PRN PRN Reason: Heartburn Clonazepam (Clonazepam 0.5 Mg Tablet) 0.5 mg PO BEDTIME [facility] Last Admin: 04/24/25 20:18 Dose: 0.5 mg Documented By: DEBRA Cyclobenzaprine HCl (Cyclobenzaprine Hcl 10 Mg Tablet) 10 mg PO TID PRN PRN Reason: Muscle Spasm Docusate Sodium (Docusate Sodium 100 Mg Capsule) 100 mg PO BID PRN PRN Reason: Constipation Fluticasone/Vilanterol (Fluticasone/Vilanterol 200/25 Blst.W.Dev) 1 puff INHALE RDAILY [facility] Last Admin: 04/24/25 10:59 Dose: 1 puff Documented By: BRESKALLI Gabapentin (Gabapentin 100 Mg Capsule) 100 mg PO BID [facility] Last Admin: 04/24/25 20:19 Dose: Not Given Documented By: DEBRA Non-Admin Reason: Patient Refused Hydromorphone HCl (Hydromorphone Hcl 0.5 Mg/0.5 Ml Syringe) 0.5 mg IVPUSH Q4H PRN; Protocol PRN Reason: Pain, Severe (Pain Scale 7-10) Last Admin: 04/25/25 01:00 Dose: 0.5 mg Documented By: DEBRA Hydroxyzine HCl (Hydroxyzine Hcl 10 Mg Tablet) 10 mg PO TID PRN PRN Reason: Anxiety Last Admin: 04/25/25 01:03 Dose: 10 mg Documented By: DEBRA Lactulose (Lactulose 20 Gm/30 Ml Solution) 20 gm PO DAILY PRN PRN Reason: Constipation Magnesium Hydroxide (Milk Of Magnesia 30 Ml Oral.Susp) 30 ml PO DAILY PRN PRN Reason: Constipation Melatonin (Melatonin 3 Mg Tablet) 6 mg PO BEDTIME PRN PRN Reason: Insomnia Last Admin: 04/24/25 21:48 Dose: 6 mg Documented By: DEBRA Methotrexate (Methotrexate Sodium 2.5 Mg Tablet) 25 mg PO FR@0900 [facility] Methylprednisolone Sodium Succinate (Methylprednisolone Sod Succ 40 Mg/Ml Vial) 20 mg IVPUSH Q8H [facility] Stop: 04/26/25 14:14 Last Admin: 04/25/25 05:55 Dose: 20 mg Documented By: DEBRA Montelukast Sodium (Montelukast Sodium 10 Mg Tablet) 10 mg PO BEDTIME [facility] Last Admin: 04/24/25 20:18 Dose: 10 mg Documented By: DEBRA Multivitamins/Vitamin C (Multivitamin Tablet) 1 tab PO DAILY [facility] Last Admin: 04/24/25 08:07 Dose: 1 tab Documented By: DIANE Ondansetron HCl (Ondansetron Hcl 4 Mg/2 Ml Vial) 4 mg IVPUSH Q8H PRN PRN Reason: Nausea and Vomiting Last Admin: 04/24/25 21:46 Dose: 4 mg Documented By: DEBRA Oxybutynin Chloride (Oxybutynin Chloride Er 5 Mg Tab.Er.24) 15 mg PO DAILY [facility] Last Admin: 04/24/25 08:07 Dose: 15 mg Documented By: DIANE Prednisone (Prednisone 20 Mg Tablet) 40 mg PO DAILY [facility] On Hold: 04/24/25 14:00 Last Admin: 04/24/25 08:06 Dose: 40 mg Documented By: DIANE Risperidone (Risperidone 1 Mg Tablet) 1 mg PO BID [facility] Last Admin: 04/24/25 20:18 Dose: 1 mg Documented By: DEBRA Sertraline HCl (Sertraline Hcl 25 Mg Tablet) 25 mg PO DAILY [facility] Last Admin: 04/24/25 08:07 Dose: 25 mg Documented By: DIANE Sodium Chloride (0.9 % Sodium Chloride Flush 3 Ml Syringe) 3 ml IVFLUSH QSHIFT [facility] Last Admin: 04/24/25 21:47 Dose: Not Given Documented By: DEBRA Non-Admin Reason: IV Running Topiramate (Topiramate 100 Mg Tablet) 100 mg PO BID [facility] Last Admin: 04/24/25 20:18 Dose: 100 mg Documented By: DEBRA Vitamin D (Cholecalciferol (Vitamin D3) 25 Mcg Tablet) 50 mcg PO DAILY [facility] Last Admin: 04/24/25 08:07 Dose: 50 mcg Documented By: DIANE Zolpidem Tartrate (Zolpidem Tartrate 5 Mg Tablet) 5 mg PO BEDTIME [facility] Last Admin: 04/24/25 20:18 Dose: 5 mg Documented By: DEBRA Labs 04/25/25 07:17 04/25/25 07:17 Labs: Laboratory Results - last 24 hr 04/25/25 07:17 MCV 84.2 MCH 26.8 L MCHC 31.8 RDW 17.1 H Plt Count 230 MPV 12.0 Absolute Nucleated RBC 0.000 Nucleated RBC % (auto) 0.0 Microbiology Microbiology Results: Microbiology 04/23/25 Unknown Urine Culture - Final Urine clean catch - Clean Catch Midstream Assessment and Plan (1) Crohn's colitis: Status: Acute Assessment and Plan: 54-year-old female with a past medical history of Crohn's disease, rheumatoid arthritis, VT on Eliquis, MARISOL on nocturnal CPAP, asthma, GERD, chronic constipation, mood disorder, hypertension, recently discharged from the hospital on 03/20/2025 after being treated for Crohn's flare with steroids; presented to the hospital today with a chief complaint of abdominal pain. Noted to have proctocolitis. Likely rx resistant Chrons flare. Proctocolitis in the setting of Crohn's flare Mild nonsignificant hematochezia 2/2 chrons flare Empiric antibiotics with ceftriaxone and Flagyl d/c'd per GI given -ve GI and C diff panel She failed/didnt respond to low dose steroids, hence was trailed on IV steroids for 1 day was treat with Solu-Medrol 20 mg Q8h x 36 hours, then prednisone taper from tomorrow Pt reports BRBPR, likely in the setting of Crohn's flare Eliquis resumed given stable HDS Hold all constipation meds Supportive care Advance diet today Gentle IV fluids GI following Hx of DVT Eliquis resumed given stable HDS Hypertension: Patient's amlodipine on hold for now due to soft BP Mood disorder: Continue home Risperdal, Topamax, gabapentin, sertraline, Klonopin Rheumatoid arthritis: Patient on methotrexate every Friday VT: Home Eliquis MARISOL: Nocturnal CPAP Quality Stroke Does the patient have a stroke diagnosis?: No VTE Prior VTE?: No VTE Risk Level:: Medical - moderate - high VTE Device Contraindication: Treatment Not Indicated VTE Drug Contraindication: N/A - Med Ordered
[2025-04-25] MEDS: Fluticasone/Vilanterol 200/25 BLST.W.DEV 1 PUFF INHALE (07:45)
[2025-04-25 08:15] LABS: Anion Gap 13 (12-20); Blood Urea Nitrogen 8 mg/dL (9-16); Calcium 8.8 mg/dL (8.4-10.2); Carbon Dioxide 17 mmol/L (22-29); Chloride 115 mmol/L (96-108); Creatinine Clr Calc Pharmacy 85.0; Estimated Glomerular Filt Rate > 60; Potassium 3.9 mmol/L (3.3-5.1); Sodium 141 mmol/L (135-145)
[2025-04-25] MEDS: oxyBUTYnin chloride ER 5 MG TAB.ER.24 15 MG PO (09:23)
[2025-04-25] MEDS: 0.9 % Sodium Chloride Flush 3 ML SYRINGE IVFLUSH ×3 (09:24→22:00)
[2025-04-25 18:46] LABS: Cannabinoid Screen Urine POSITIVE (Not Detect)
[2025-04-26 03:25] VITALS: BP 145/78; PULSE 63; RESP 17; TEMP 36.2; O2SAT 99
[2025-04-26 03:45] VITALS: PULSE 77; RESP 14; O2SAT 95
[2025-04-26 06:59] VITALS: BP 136/66; PULSE 65; RESP 18; TEMP 36.5; O2SAT 99
[2025-04-26 07:40] LABS: MANUAL DIFF FLAG NO
[2025-04-26 07:51] LABS: Hematocrit 35.8 % (37.0-47.0); Hemoglobin 11.7 g/dl (12.0-16.0); Imm Gran Abs Auto 0.08 X10*3/uL (0.00-0.03); Imm Gran Pct Auto 0.8 % (0.0-0.4); Lymphocytes Absolute Auto 2.8 X10*3/uL (1.2-4.9); Mean Corpuscular HGB Conc 32.7 g/dl (31.0-35.0); Mean Corpuscular Hemoglobin 26.9 pg (27.0-33.0); Mean Corpuscular Volume 82.3 fL (80.0-98.0); NRBC Abs Auto 0.000 X10*3/uL (0.0-0.012); NRBC Pct Auto 0.0 /100WBC (0.0-0.2); Platelet Count 263 X10*3/uL (160-400); Red Blood Count 4.35 X10*6/uL (4.20-5.50); White Blood Count 9.9 X10*3/uL (4.8-10.8)
[2025-04-26] MEDS: Fluticasone/Vilanterol 200/25 BLST.W.DEV 1 PUFF INHALE (07:54)
[2025-04-26 07:56] VITALS: PULSE 63; RESP 18; O2SAT 99
[2025-04-26 08:02] LABS: Alanine Aminotransferase 10 U/L (0-31); Albumin Level 4.0 g/dL (3.5-5.0); Alkaline Phosphatase 76 U/L (39-117); Anion Gap 13 (12-20); Aspartate Amino Transferase 15 U/L (5-31); Blood Urea Nitrogen 12 mg/dL (9-16); Calcium 9.2 mg/dL (8.4-10.2); Carbon Dioxide 23 mmol/L (22-29); Chloride 111 mmol/L (96-108); Creatinine Clr Calc Pharmacy 65.2; Estimated Glomerular Filt Rate 56; Potassium 3.3 mmol/L (3.3-5.1); Sodium 144 mmol/L (135-145); Total Protein 7.1 g/dL (6.5-8.0)
[2025-04-26] MEDS: oxyBUTYnin chloride ER 5 MG TAB.ER.24 15 MG PO (08:27)
[2025-04-26] MEDS: 0.9 % Sodium Chloride Flush 3 ML SYRINGE IVFLUSH ×2 (08:28→16:42)
[2025-04-26 10:51] VITALS: BP 121/79; PULSE 61; RESP 18; TEMP 36.9; O2SAT 98
--- NOTE | 2025-04-26 15:05 | P.DS_ITS ---
DS: Providers Provider Date of Service: 04/26/25 Date of admission: 04/23/25 03:08 Date of discharge: 04/26/25 Primary care physician: Leesa Wasserman MD Consults: 04/23/25 03:08 Consult to Gastroenterology Routine Consulting Provider[place] [facility] [place] Reason for consultation: Recent crohns flare; proctocolitis 04/25/25 12:50 Addiction Medicine Provider Routine Consulting Provider: Addiction Covering Reason for consultation: requesting dilaudid inappropriately Q4H?undiag FÁTIMA DS: Diagnosis Discharge Diagnosis (1) Crohn's colitis: Status: Acute DS: Summary Hospital Course Hospital Course: 54-year-old female with a past medical history of Crohn's disease, rheumatoid arthritis, VT on Eliquis, MARISOL on nocturnal CPAP, asthma, GERD, chronic const ipation, mood disorder, hypertension, recently discharged from the hospital on 03/20/2025 after being treated for Crohn's flare with steroids; presented to the hospital on 04/23/25 with a chief complaint of abdominal pain. Noted to have proctocolitis. Likely rx resistant Chrons flare. Acute on chronic flare of Crohn's proctocolitis secondary to resistant Crohn's flare Mild nonsignificant hematochezia 2/2 chrons flare Partial left hemicolectomy Failed multiple trials of biologics Patient was recently admitted and discharged on prednisone, however she continues to have subacute chronic generalized abdominal pain, mild hematochezia, chronic diarrhea with hemodynamic stability. Per GI, which has seen the patient, she has had a very complicated GI, and she has been trialed on many biologic agents, Stelara every 4 weeks. She has had at least 2 bowel surgeries including removal of a portion of the left colon with a temporary colostomy and more recently another surgery with removal of a portion of the colon and a temporary ileostomy, which was subsequently reversed. Due to all of her surgeries, she does have chronic pain and fairly frequent loose stools. However, more recently she has been having increasing diarrhea and increasing pain. During this admission, she was treated with empiric antibiotics ceftriaxone, Flagyl and GI and C diff panel was negative and hence it was discontinued after 2 days with good effect. Patient reports being back to her baseline and continues to have her baseline diarrhea which is likely chronic. She is advised to continue her home medication and I will discharge her on prednisone 40 mg daily with a gradual taper and she needs to see her outpatient primary official court reporter Dr. Javy nazario. Hx of DVT Eliquis was briefly held on admission, resumed given stable HDS. No change in meds Crohn's disease with surgeries as above. Hyperlipidemia. Anemia. Sleep apnea. Asthma. PTSD. Depression. Hypertension: Continued home amlodipine, no changes in home meds Mood disorder PTSD Depression Continue home Risperdal, Topamax, gabapentin, sertraline, Klonopin MARISOL: Continued home nocturnal CPAP with good effect, no changes in settings or medication Rheumatoid arthritis: Patient on methotrexate every Friday , no changes in meds during this hospitalization Suspected underlying undiagnosed substance use-opioids Addiction med was consulted explained to the patient why opioids are contraindicated or would cause more harm than good given her medical comorbidities. Patient was on home Eliquis for VTE prophylaxis with good effect Time spent discussing smoking cessation with patient: more than 10 minutes Status at Discharge Functional status at discharge: independent ambulation Overall status at discharge: patient is back to baseline Time Attestation Total time managing care of this patient today: 35 mintues. Discharge Coordination Time (in mins): 35 Quality: Safe Use of Opioids Does Pt have an Active Cancer Diagnosis on the Problem List?: No Quality: Stroke Does the patient have a stroke diagnosis?: No Physical Exam Vital Signs: Vital Signs: Last Vital Signs Temp 98.4 F 04/26/25 10:51 Pulse 61 04/26/25 10:51 Resp 18 04/26/25 10:51 BP 121/79 04/26/25 10:51 Pulse Ox 98 04/26/25 10:51 O2 Del Method Room Air 04/26/25 10:51 O2 Flow Rate 9 04/24/25 03:36 BMI result Body Mass Index 27.2 DS: Data Data Completed and Pending Completed studies during hospitalization [Text1]: Procedures Dilation of Sigmoid Colon, Via Natural or Artificial Opening Endoscopic (09/08/21) Excision of Ascending Colon, Via Natural or Artificial Opening Endoscopic, Diagnostic (03/01/21) Excision of Cecum, Via Natural or Artificial Opening Endoscopic, Diagnostic (03/01/21) Excision of Descending Colon, Via Natural or Artificial Opening Endoscopic, Diagnostic (03/01/21) Excision of Duodenum, Via Natural or Artificial Opening Endoscopic, Diagnostic (03/01/21) Excision of Rectum, Via Natural or Artificial Opening Endoscopic (03/01/21) Excision of Sigmoid Colon, Via Natural or Artificial Opening Endoscopic, Diagnostic (09/08/21) Excision of Stomach, Pylorus, Via Natural or Artificial Opening Endoscopic, Diagnostic (03/01/21) Excision of Transverse Colon, Via Natural or Artificial Opening Endoscopic, Diagnostic (03/01/21) Extraction of Esophagus, Via Natural or Artificial Opening Endoscopic, Diagnostic (03/01/21) Labs on day of discharge: Laboratory Results - last 24 hr 04/25/25 04/26/25 18:13 06:46 WBC 9.9 RBC 4.35 Hgb 11.7 L Hct 35.8 L MCV 82.3 MCH 26.9 L MCHC 32.7 RDW 17.2 H Plt Count 263 MPV 11.7 Immature Gran % (Auto) 0.8 H Neut % (Auto) 60.7 Lymph % (Auto) 28.1 [place] % (Auto) 9.8 Eos % (Auto) 0.3 Baso % (Auto) 0.3 Lymph # (Auto) 2.8 [place] # (Auto) 1.0 Eos # (Auto) 0.0 Baso # (Auto) 0.0 Abs Immat Gran (auto) 0.08 H Absolute Neuts (auto) 6.0 Absolute Nucleated RBC 0.000 Nucleated RBC % (auto) 0.0 Sodium 144 Potassium 3.3 Chloride 111 H Carbon Dioxide 23 Anion Gap 13 BUN 12 Creatinine 1.03 Estim Creat Clear Calc 65.2 Estimated GFR 56 Random Glucose 74 Calcium 9.2 Total Bilirubin 0.2 AST 15 ALT 10 Alkaline Phosphatase 76 Total Protein 7.1 Albumin 4.0 Urine Opiates Screen Not Detected Ur Buprenorphine Scrn Not Detected Ur Oxycodone Screen Not Detected Urine Methadone Screen Not Detected Urine Fentanyl Screen Not Detected Ur Barbiturates Screen Not Detected Ur Phencyclidine Scrn Not Detected Ur Amphetamines Screen Not Detected U Benzodiazepines Scrn Not Detected Urine Cocaine Screen Not Detected U Marijuana (THC) Screen POSITIVE H Discharge Plan Discharge Anticipated Discharge Date/Time: 04/26/25 15:21 Patient Disposition: Home, Self-Care Discharge Diagnosis: Acute on chronic proctocolitis due to underlying Crohn's Referrals: Leesa Rapp MD [Primary Care Provider, Internal Medicine] - 1 Week Referral Note: dc from [facility] Libby Palafox MD [Physician, Gastroenterology] - 1 Week Referral Note: chrons flare Discharge Medications: New prednisone 10 mg tablet 40 mg PO DAILY MDD 40 7 Days Qty: 28 0RF pantoprazole [Protonix] 40 mg tablet,delayed release (DR/EC) 40 mg PO DAILY 60 Days Qty: 60 0RF Continued oxybutynin chloride 15 mg tablet extended release 24hr 15 mg PO DAILY 30 Days Qty: 30 1RF multivitamin Tablet 1 tab PO DAILY docusate sodium 100 mg capsule 1 cap PO BID PRN (Reason: Constipation) montelukast 10 mg tablet 1 tab PO BEDTIME risperidone 1 mg Tablet 1 mg PO BID Qty: 60 0RF Eliquis 2.5 mg Tablet 2.5 mg PO BID Qty: 60 6RF budesonide-formoterol [Symbicort] 160-4.5 mcg/actuation HFA aerosol inhaler 2 puff PO BID cyclobenzaprine 10 mg tablet 10 mg PO TID PRN (Reason: muscle spasm) Qty: 12 0RF ondansetron 4 mg tablet,disintegrating 8 mg PO Q8H PRN (Reason: nausea and vomiting) hydroxyzine HCl 10 mg Tablet 10 mg PO TID PRN (Reason: Anxiety) calcium carbonate-vitamin D3 600 mg-10 mcg (400 unit) tablet 1 tab PO BID melatonin 5 mg Tablet 10 mg PO BEDTIME cholecalciferol (vitamin D3) [Vitamin D3] 50 mcg (2,000 unit) Tablet 50 mcg PO DAILY lactulose 10 gram/15 mL Solution 20 g PO DAILY PRN (Reason: Constipation) Xeljanz 10 mg Tablet 10 mg PO BID methotrexate sodium 2.5 mg tablet 25 mg PO FR@0900 buspirone 5 mg Tablet 5 mg PO DAILY albuterol sulfate 90 mcg/actuation Hfa Aerosol Inhaler 2 puff INHALATION Q4H PRN (Reason: Shortness Of Breath) acetaminophen [Tylenol] 325 mg Tablet 650 mg PO Q4H PRN (Reason: Pain) carboxymethylcellulose sodium 1 % Drops, Liquid Gel 1 drp OPHTHALMIC (EYE) BID PRN (Reason: Dry Eye(S)) topiramate 100 mg tablet 100 mg PO BID amlodipine 2.5 mg tablet 2.5 mg PO DAILY PRN (Reason: Hypertension) sertraline [Zoloft] 25 mg tablet 25 mg PO DAILY ustekinumab [Stelara] 90 mg/mL Syringe 90 mg SUBCUT Q4W diphenhydramine HCl [Banophen] 25 mg Capsule 25 mg PO Q6H PRN (Reason: Itching) Qty: 6 0RF zolpidem 5 mg tablet 5 mg PO BEDTIME Discharge Orders: Discharge Order (Routine); Ordered 04/26/25 Ordered By: Sadia Hanson Diet: Low salt diet Activity on Discharge: As tolerated Stand Alone Forms: Patient Portal Discharge page, Community Support, Substance Abuse Outpt Detox Print Language: Sinhala Care Plan Goals: gi follow up Health Concerns: see above Plan of Treatment: see above Assessment: see above
[2025-04-26 15:14] VITALS: BP 160/71; PULSE 60; RESP 16; TEMP 36.6; O2SAT 97
--- NOTE | 2025-04-26 15:53 | HO.ADDICT_ITS ---
History of Present Illness Date of Service: 04/26/2025 Chief Complaint: protocolitis Reason for Consult: substance use eval Sources of Information: patient interviewed and chart reviewed HPI Narrative: patient is a 54 year old Cymro speaking female with medical history that includes chrons disease, who is medically admitted with proctocolitis. Consult requested as there was concern that patient was requiring more pain medication than expected and provider wanted to ensure there was no risk for FÁTIMA developing Patient seen in room 472 and chart reviewed. Patient is no longer on IV Dilaudid when seen by t/w She is awake, alert, engaged in interview. Reports pain is much improved from admission when she felt is was awful . She reports still not feeling like herself, but she is able to manage the discomfort with tylenol. She reports pain medications are only used during chrons flare ups and she does not normally take any pain medications at home, unless prescribed. Mass pat reviewed--no concerns. UDS -for all substances except thc no history of FÁTIMA indicated in any provider notes reviewed she has a strong support system, inlcuding a therapist and psychaitrist Past Psychiatric History: [place]: [facility] [place] OP: No current alliances, given referrals upon discharge from recently. Had planned PHP to begin next week. Trials: Paxil, Remeron, initiated a cross taper to Lexapro on last admission, however will stop this as sx have increased Medical Evaluation Reviewed: Yes Review of Systems Constitutional: Reports as per HPI and Reports no additional constitutional complaints Diagnostics Vital Signs (24Hr): Vital Signs - 24 hr 04/25/25 19:47 04/25/25 22:00 04/25/25 23:22 Temperature 98.5 F 98.0 F Pulse Rate 79 62 Respiratory Rate 16 17 17 Blood Pressure 145/73 H 145/71 H Pulse Oximetry 94 98 Oxygen Delivery Method Room Air CPAP 04/26/25 03:25 04/26/25 03:45 04/26/25 06:59 Temperature 97.2 F 97.7 F Pulse Rate 63 65 Respiratory Rate 17 14 18 Blood Pressure 145/78 H 136/66 Pulse Oximetry 99 99 Oxygen Delivery Method CPAP Room Air 04/26/25 07:56 04/26/25 10:51 04/26/25 15:14 Temperature 98.4 F 97.9 F Pulse Rate 63 61 60 Respiratory Rate 18 18 16 Blood Pressure 121/79 160/71 H Pulse Oximetry 98 97 Oxygen Delivery Method Room Air Room Air BMI result Body Mass Index 27.2 Labs 04/26/25 06:46 04/26/25 06:46 Labs: Laboratory Results - last 48 hr 04/25/25 04/25/25 04/26/25 07:17 18:13 06:46 WBC 10.9 H 9.9 RBC 3.92 L 4.35 Hgb 10.5 L 11.7 L Hct 33.0 L 35.8 L MCV 84.2 82.3 MCH 26.8 L 26.9 L MCHC 31.8 32.7 RDW 17.1 H 17.2 H Plt Count 230 263 MPV 12.0 11.7 Immature Gran % (Auto) 0.8 H Neut % (Auto) 60.7 Lymph % (Auto) 28.1 Navajo % (Auto) 9.8 Eos % (Auto) 0.3 Baso % (Auto) 0.3 Lymph # (Auto) 2.8 [place]ajo # (Auto) 1.0 Eos # (Auto) 0.0 Baso # (Auto) 0.0 Abs Immat Gran (auto) 0.08 H Absolute Neuts (auto) 6.0 Absolute Nucleated RBC 0.000 0.000 Nucleated RBC % (auto) 0.0 0.0 Sodium 141 144 Potassium 3.9 3.3 Chloride 115 H 111 H Carbon Dioxide 17 L 23 Anion Gap 13 13 BUN 8 L 12 Creatinine 0.79 1.03 Estim Creat Clear Calc 85.0 65.2 Estimated GFR > 60 56 Random Glucose 95 74 Calcium 8.8 D 9.2 Total Bilirubin 0.2 AST 15 ALT 10 Alkaline Phosphatase 76 Total Protein 7.1 Albumin 4.0 Urine Opiates Screen Not Detected Ur Buprenorphine Scrn Not Detected Ur Oxycodone Screen Not Detected Urine Methadone Screen Not Detected Urine Fentanyl Screen Not Detected Ur Barbiturates Screen Not Detected Ur Phencyclidine Scrn Not Detected Ur Amphetamines Screen Not Detected U Benzodiazepines Scrn Not Detected Urine Cocaine Screen Not Detected U Marijuana (THC) Screen POSITIVE H Mental Status Exam Mental Status Exam Patient Appearance: Well Grooomed Level of Consciousness: Awake, Appropriate and Alert Patient Behavior: Appropriate and Talkative Affect Description: Calm Speech Pattern: Clear Hallucinations: None Thought Process: Intact Thought Content: positive for Intact Judgement: Good Medications Medications Current Medications Acetaminophen (Acetaminophen 325 Mg Tablet) 975 mg PO Q6H [facility] Last Admin: 04/26/25 13:33 Dose: 975 mg Albuterol Sulfate (Albuterol Sulfate 90 Mcg 8 Gm Inhaler) 2 puff INHALE Q4H PRN PRN Reason: Shortness of Breath Amlodipine Besylate (Amlodipine Besylate 2.5 Mg Tablet) 2.5 mg PO DAILY PRN; Protocol On Hold: 04/23/25 14:39 PRN Reason: Hypertension Apixaban (Apixaban 2.5 Mg Tablet) 2.5 mg PO BID [facility] Last Admin: 04/26/25 08:28 Dose: 2.5 mg Artificial Tears (Artificial Tears 15 Ml Drops) 1 drop EYE-BOTH BID PRN PRN Reason: Dry Eye(S) Buspirone HCl (Buspirone Hcl 5 Mg Tablet) 5 mg PO DAILY [facility] Last Admin: 04/26/25 08:28 Dose: 5 mg Calcium Carbonate (Calcium Carbonate 750 Mg Tab.Chew) 750 mg PO Q4H PRN PRN Reason: Heartburn Clonazepam (Clonazepam 0.5 Mg Tablet) 0.5 mg PO BEDTIME [facility] Last Admin: 04/25/25 22:00 Dose: 0.5 mg Cyclobenzaprine HCl (Cyclobenzaprine Hcl 10 Mg Tablet) 10 mg PO TID PRN PRN Reason: Muscle Spasm Last Admin: 04/25/25 09:24 Dose: 10 mg Fluticasone/Vilanterol (Fluticasone/Vilanterol 200/25 Blst.W.Dev) 1 puff INHALE RDAILY [facility] Last Admin: 04/26/25 07:54 Dose: 1 puff Gabapentin (Gabapentin 100 Mg Capsule) 100 mg PO BID [facility] Last Admin: 04/26/25 08:30 Dose: Not Given Hydroxyzine HCl (Hydroxyzine Hcl 10 Mg Tablet) 10 mg PO TID PRN PRN Reason: Anxiety Last Admin: 04/25/25 15:48 Dose: 10 mg Melatonin (Melatonin 3 Mg Tablet) 9 mg PO BEDTIME [facility] Last Admin: 04/25/25 21:59 Dose: 9 mg Methotrexate (Methotrexate Sodium 2.5 Mg Tablet) 25 mg PO FR@0900 [facility] Montelukast Sodium (Montelukast Sodium 10 Mg Tablet) 10 mg PO BEDTIME [facility] Last Admin: 04/25/25 22:00 Dose: 10 mg Multivitamins/Vitamin C (Multivitamin Tablet) 1 tab PO DAILY [facility] Last Admin: 04/26/25 08:28 Dose: 1 tab Ondansetron HCl (Ondansetron Hcl 4 Mg/2 Ml Vial) 4 mg IVPUSH Q8H PRN PRN Reason: Nausea and Vomiting Last Admin: 04/24/25 21:46 Dose: 4 mg Oxybutynin Chloride (Oxybutynin Chloride Er 5 Mg Tab.Er.24) 15 mg PO DAILY [facility] Last Admin: 04/26/25 08:27 Dose: 15 mg Prednisone (Prednisone 20 Mg Tablet) 40 mg PO DAILY [facility] On Hold: 04/24/25 14:00 Last Admin: 04/24/25 08:06 Dose: 40 mg Risperidone (Risperidone 1 Mg Tablet) 1 mg PO BID [facility] Last Admin: 04/26/25 08:28 Dose: 1 mg Sertraline HCl (Sertraline Hcl 25 Mg Tablet) 25 mg PO DAILY [facility] Last Admin: 04/26/25 08:28 Dose: 25 mg Sodium Chloride (0.9 % Sodium Chloride Flush 3 Ml Syringe) 3 ml IVFLUSH QSHIFT [facility] Last Admin: 04/26/25 08:28 Dose: 3 ml Topiramate (Topiramate 100 Mg Tablet) 100 mg PO BID [facility] Last Admin: 04/26/25 08:28 Dose: 100 mg Tramadol HCl (Tramadol Hcl 50 Mg Tablet) 25 mg PO Q6H PRN PRN Reason: Pain, Moderate(Pain Scale 4-6) Last Admin: 04/25/25 15:48 Dose: 25 mg Vitamin D (Cholecalciferol (Vitamin D3) 25 Mcg Tablet) 50 mcg PO DAILY [facility] Last Admin: 04/26/25 08:28 Dose: 50 mcg Zolpidem Tartrate (Zolpidem Tartrate 5 Mg Tablet) 5 mg PO BEDTIME [facility] Last Admin: 04/25/25 22:00 Dose: 5 mg Allergies Allergies Allergy/AdvReac Type Severity Reaction Status Date / Time aspirin (ASA) Allergy Intermediate RASH Verified 04/22/25 23:52 azathioprine (From IMURAN) Allergy Intermediate PANCREATIC Verified 04/22/25 23:52 INFLAMMATION ibuprofen (IBUPROFEN) Allergy Intermediate TOLD NOT Verified 04/22/25 23:52 TO TAKE levofloxacin (From LEVAQUIN) Allergy Mild YEAST Verified 04/22/25 23:52 INFECTIONS Assessment & Plan Assessment & Plan (1) Crohn's disease: Status: Acute Code(s): K50.90 - Crohn's disease, unspecified, without complications Assessment and Plan: * no concern for substance use, or inappropriate opiate use identified Total time managing care of this patient today __30__ minutes. [facility] Past Medical History Medical History (Updated 04/23/25 @ 03:16 by Raymond Peters MD) Crohn disease Crohn's colitis Urge incontinence Stricture of colon Normocytic anemia Anxiety Sleep apnea Asthma GERD (gastroesophageal reflux disease) Pulmonary embolism Crohn's disease PTSD (post-traumatic stress disorder) Recurrent major depression-severe Hyperlipidemia Hemorrhagic cyst of ovary Kidney stones Depression Iron deficiency anemia Rheumatoid arthritis Migraine Cancer HTN (hypertension) Surgical History Surgical History History of esophagogastroduodenoscopy (EGD) History of colon resection History of colon resection Hx of dilation and curettage Hx of cystoscopy Hx of cystoscopy Hx of colonoscopy (~10/2018) Hx of endoscopy Social History Social History Household Members: None Housing: Apartment Are you a primary rn primary care to a significant other at home: No Do you presently have visiting nurse or other home services: No ([facility] daily) Alcohol intake: never Patient Tobacco Use Status: Former Tobacco user Tobacco use type: Cigarette Cigarettes Per Day: 1 Years Smoked: 10 Smoked in Last 30 Days: No e-Cigarette/Vaping Use: Former Use Second Hand Smoke Exposure: No Substance Use Type: Marijuana Currently Displaying Signs/Symptoms of Drug Intoxication Withdrawal: No Have you been hit, kicked, punched, or otherwise hurt by someone within the past year? If so, by whom?: No Do you feel safe in your current relationship?: No Current Relationship Is there a partner from a previous relationship who is making you feel unsafe now?: No Are you made to feel afraid or neglected: No Advance Directives: Yes Advance Directives on File: Yes Advance Directives Date on File: 02/13/24 Do you have a plan to hurt others: No Plan Recently lost weight without trying: Yes How much weight loss: 14-23 pounds Eating poorly because of decreased appetite: Yes Nutrition screen score: 5 Nutrition Risks: No Nutritional Risk Patient : No : No Poor oral hygiene: No service: No Current occupational status: unemployed and disabled Sexual orientation: Straight/Heterosexual
--- NOTE | 2025-04-26 16:15 | MHC.CM.PN ---
PT MEDICALLY CLEARED FOR DC HOME SELF CARE, PT WILL ARRANGE TRANSPORT
[2025-04-28 09:02] LABS: Alcohol, Ethyl Urine Screen NEGATIVE
== END 2025-04-26 18:09 | disposition home or self-care (01) | DRG 245 ==
LOC: HO.ED 04-23 03:16 → HO.EDOVER 04-23 03:45 → HO.IMC 04-23 12:32
PROVIDERS: Student in an Organized Health Care Education/Training Program; Admitting Provider Hospitalist; Emergency Provider Emergency Medicine; PCP Internal Medicine; Visit Provider Student in an Organized Health Care Education/Training Program
DX: K50.111 Crohn's disease of large intestine with rectal bleeding (principal); G47.33 Obstructive sleep apnea (adult) (pediatric); Z87.891 Personal history of nicotine dependence; M06.9 Rheumatoid arthritis, unspecified; I10 Essential (primary) hypertension; Z86.718 Personal history of other venous thrombosis and embolism; Z79.01 Long term (current) use of anticoagulants; Z79.631 Long term (current) use of antimetabolite agent; Z79.899 Other long term (current) drug therapy
CPT/HCPCS: 36415; 74177; 80048; 80053; 80307; 81001; 83690; 83735; 85025; 85027; 86140; 87086; 87493; 87507; 94660; 99285; J0696; J0737; J1171; J1790; J1836; J2270; J2405; J2919; Q9967

== ENCOUNTER → 2025-04-23 01:13 | Outpatient (BNV) | payer MEDICAID, SELFPAY | PROVIDERS: Emergency Provider Emergency Medicine; PCP Internal Medicine; Visit Provider Radiology Diagnostic Radiology | DX: K50.90 Crohn's disease, unspecified, without complications (principal); N20.0 Calculus of kidney | CPT/HCPCS: 74177 ==

== ENCOUNTER 2025-04-23 03:08 | Outpatient (BNV) | payer MEDICAID, SELFPAY | END 2025-04-25 03:00 | PROVIDERS: Admitting Provider Hospitalist; Emergency Provider Emergency Medicine; PCP Internal Medicine; Visit Provider Radiology Diagnostic Radiology | DX: R10.9 Unspecified abdominal pain (principal) | CPT/HCPCS: 74177 ==

== ENCOUNTER → 2025-04-23 03:08 | Outpatient (BNV) | payer MEDICAID, SELFPAY | PROVIDERS: Admitting Provider Hospitalist; Emergency Provider Emergency Medicine; PCP Internal Medicine; Visit Provider Student in an Organized Health Care Education/Training Program | DX: K52.9 Noninfective gastroenteritis and colitis, unspecified (principal) | CPT/HCPCS: 99499 ==

== ENCOUNTER → 2025-04-23 03:08 | Outpatient (BNV) | payer OTHER, SELFPAY | PROVIDERS: Admitting Provider Hospitalist; Emergency Provider Emergency Medicine; PCP Internal Medicine; Visit Provider Nurse Practitioner Psychiatric/Mental Health | DX: F12.90 Cannabis use, unspecified, uncomplicated (principal); K50.90 Crohn's disease, unspecified, without complications | CPT/HCPCS: 99221 ==

== ENCOUNTER 2025-04-28 11:32 | Outpatient (REF) | payer MEDICAID, SELFPAY ==
--- NOTE | ~2025-04-28 | XR_ITS ---
EXAMINATION: XR CERVICAL SPINE CLINICAL INFORMATION: [facility] COMPARISON: 07/17/2021. TECHNIQUE: 5 views of the cervical spine were obtained, including bilateral oblique views. FINDINGS: Normal lordosis. No scoliosis. No fracture, compression deformity, or suspicious bone lesion. There is normal alignment with fixation. The C1-2 articulation and craniocervical junction are intact and aligned. Disc spaces appear largely preserved. Mild disc degeneration present at C6-C7. Normal facet alignment. No significant facet arthrosis. There is no bony neural foraminal narrowing. Prevertebral soft tissues appear normal. Imaged lung apices are clear. XR/XR cervical spine 5V IMPRESSION: 1. No acute findings of the cervical spine. 2. Mild degenerative disc changes at C6-7. Electronically signed by: Fabrizio Bacon MD 04/28/2025 01:31 PM EDT
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
--- OUTSIDE RECORDS SUMMARY | 2025-04-28 10:45 | XMS_ITS | Encounter Summary ---
Author Organization [employer] Address [address] [facility] 7t [place] [address] Care Team Providers Care Potable Water Treatment Operator Name Role Phone Leesa Rapp MD Primary Care Provide r Adam Hanson RN Unavailable [phone] Cathy Rucker Unavailable Reason for Referral * Consultation (Routine) - Pending Review Specialty Diagnoses / Procedures Referred By Arden wright Referred To Contact Physical Therapy Diagnoses Acute pain of left shoulder Acute left-sided thoracic back pain Acute left-sided low back pain without sciatica Leesa Rapp MD [address] [place] [address] Phone: tel: fax: Referral ID Status Reason Start Date Expiration Date Visits Requested Visits Authorized [id number] Pending Review Specialty Services Required 04/28/2025 04/28/2026 1 1 Encounter Details Date Type Department Care Team (Late st Contact Info) Description 04/28/2025 10:45 AM EDT Office Visit [facility] [address] [place] [address] [phone] Leesa Rapp MD [address] [place], [place] [phone] Neck pain (Primary Dx); Acute pain of left shoulder; Acute left-sided thoracic back pain; Acute left-sided low back pain without sciatica Social History Tobacco Use Types Packs/Day Years [...] AM EDT documented as of this encounter Last Filed Vital Signs Vital Sign Reading Time Taken Comments Blood Pressure 140/82 04/28/2025 10:54 AM EDT Pulse 63 04/28/2025 10:54 AM EDT Temperature 36.5 C (97.7 F) 04/28/2025 10:54 AM EDT Respiratory Rate 18 04/28/2025 10:54 AM EDT Oxygen Saturation 98% 04/28/2025 10:54 AM EDT Inhaled Oxygen Concentration - - Weight 72.7 kg (160 lb 3.2 oz) 04/28/2025 10:54 AM EDT Height 157.5 cm (5' 2 ) 04/28/2025 10:54 AM EDT Body Mass Index 29.3 04/28/2025 10:54 AM EDT documented in this encounter Plan of Treatment Upcoming Encounters Date Type Department Care Team (Late st Contact Info) Description 05/16/2025 2:45 PM EDT Office Visit [facility] [address] [place] [address] Vee Harris MD [address] [place] [address] Scheduled Orders Name Type Priority Associated Diagnoses Orde r Schedule XR C-Spine Complete 6+ Views Imaging Routine Neck pain Expected: 04/28/2025, Expires: 04/28/2026 XR Thoracic Spine 3 Views Imaging Routine Acute left-sided thoracic back pain Expected: 04/28/2025, Expires: 04/28/2026 XR Lumbar Spine 2-3 Views Imaging Routine Acute left-sided low back pain without sciatica Expected: 04/28/2025, Expires: 04/28/2026 XR Shoulder 2+ Views Left Imaging Routine Acute pain of left shoulder Expected: 04/28/2025, Expires: 04/28/2026 Scheduled Referrals Name Type Priority Associated Diagnoses Orde r Schedule Referral to Physical Therapy Outpatient Referral Routine Acute pain of left shoulder Acute left-sided thoracic back pain Acute left-sided low back pain without sciatica Expected: 04/28/2025 (Approximate), Expires: 04/28/2026 documented as of this encounter Visit Diagnoses Diagnosis Neck pain- Primary Cervicalgia Acute pain of left shoulder Acute left-sided thoracic back pain Acute left-sided low back pain without sciatica documented in this encounter Additional Health Concerns Assessment Noted Time PHQ-9 Depression Total Score: 19 025 9:53 AM EDT documented as of this encounter Care Teams Potable Water Treatment Operator Relationship Specialty Start Date End Date Leesa Rapp MD [address] [place] [address] PCP - General Family Medicine 10/15/19 Adam Hanson, ANTONIO [address] [place] [address] [place] [address] Registered Nurse Family Medicine 04/26/25 Cathy Rucker 04/26/25 documented as of this encounter
--- OUTSIDE RECORDS SUMMARY | 2025-04-28 13:14 | XMS_ITS | Encounter Summary ---
Author Organization [employer] Address [address] [facility] 7t [place] [address] Care Team Providers Care Delivery Merchandiser Name Role Phone Leesa Rapp MD Primary Care Provide r Adam Hanson RN Unavailable [phone] Cathy Rucker Unavailable Reason for Visit * Reason Onset Date Comments chart prep 04/27/2025 Encounter Details Date Type Department Care Team ([facility] st Contact Info) Description 04/27/2025 Telephone [facility] [address] [place], [place] [phone] Leesa Rapp MD [address] [place], [place] [phone] chart prep Social History Tobacco Use Types Packs/Day Years [...] encounter Miscellaneous Notes * Telephone Encounter - Kelly Moseley MA - 04/27/2025 3:03 PM EDT Chart Prep Labs: not applicable Images: done Referrals: appointment pending [facility] and referral is still processing. They will call patient to booked. Vaccines due: Covid, Flu, Tdap, and Zoster Screenings: mammogram Overdue care gaps: PHQ-9 and ANDREW-7 documented in this encounter Plan of Treatment Upcoming Encounters Date Type Department Care Team (Late st Contact Info) Description 05/16/2025 2:45 PM EDT Office Visit [facility] [address] [place] [address] Vee Harris MD [address] [place] [address] documented as of this encounter Visit Diagnoses Not on filedocumented in this encounter Additional Health Concerns Assessment Noted Time PHQ-9 Depression Total Score: 19 025 9:53 AM EDT documented as of this encounter Care Teams Delivery Merchandiser Relationship Specialty Start Date End Date Leesa Rapp MD [address] [place] [address] PCP - General Family Medicine 10/15/19 Adam Hanson RN [address] [place] [address] Registered Nurse Family Medicine 04/26/25 Cathy Rucker 04/26/25 documented as of this encounter
--- OUTSIDE RECORDS SUMMARY | 2025-04-28 13:14 | XMS_ITS ---
Author Organization [employer] Address [address] [facility] 7t [place] [address] Care Team Providers Care Driver Courier Name Role Phone Leesa Rapp MD Primary Care Provide r Adam Hanson RN Unavailable [phone] Cathy Rucker Unavailable CM Complex Status:Outreach In Progress (Enrolling) Start date:04/26/2025 Enrollment reason:ADT Feed Overview ADT-admitted [facility] 04/23/25 Case Team Name Relationship Phone Adam Hanson RN(Responsible Staff) Registered Nurse [phone] Continued Care and Services Coordination
--- OUTSIDE RECORDS SUMMARY | 2025-04-28 13:14 | XMS_ITS | Encounter Summary ---
Author Organization [employer] Address [address] [facility] 7t [place] [address] Care Team Providers Care Medical Information Officer Name Role Phone Leesa Rapp MD Primary Care Provide r Adam Hanson RN Unavailable [phone] Cathy Rucker Unavailable Reason for Visit * Reason Comments Med Refill Encounter Details Date Type Department Care Team (Late Contact Info) Description 04/28/2023 Refill [facility] [address] [place] [address] [phone] Christy Stockton DO [address] [place], [place] [phone] Healthcare maintenance Social History Tobacco Use Types [...] Department Care Team (Late Contact Info) Description 05/16/2025 2:45 PM EDT Office Visit [facility] [address] [place] [address] [phone] Vee Harris MD [address] [place] [phone] documented as of this encounter Visit Diagnoses Diagnosis Healthcare maintenance documented in this encounter Care Teams Medical Information Officer Relationship Specialty Start Date End Date Leesa Rapp MD [address] [place], [place] [phone] PCP - General Family Medicine 10/15/19 Adam Hanson RN [address] [place] [phone] Registered Nurse Family Medicine 04/26/25 Cathy Rucker 04/26/25 documented as of this encounter
--- OUTSIDE RECORDS SUMMARY | 2025-04-28 13:14 | XMS_ITS | Encounter Summary ---
Author Organization [employer] Address [address] [facility] 7t [place] [address] Care Team Providers Care Tyre Retreader Name Role Phone Leesa Rapp MD Primary Care Provide r Adam Hanson RN Unavailable [phone] Cathy uRcker Unavailable Reason for Visit * Reason Comments Med Refill Encounter Details Date Type Department Care Team ([facility] st Contact Info) Description 05/09/2024 Refill [facility] [address] [place], [place] [phone] Leesa Rapp MD [address] [place], [place] [phone] Vitamin D deficiency; Healthcare maintenance; Anxiety Social [...] Description 05/16/2025 2:45 PM EDT Office Visit [facility] [address] [place] [address] Vee Harris MD [address] [place] [address] documented as of this encounter Visit Diagnoses Diagnosis Vitamin D deficiency Healthcare maintenance Anxiety Anxiety state, unspecified documented in this encounter Additional Health Concerns Assessment Noted Time PHQ-9 Depression Total Score: 0 02/20/20 24 1:02 PM EDT documented as of this encounter Care Teams Tyre Retreader Relationship Specialty Start Date End Date Leesa Rapp MD [address] [place] [address] PCP - General Family Medicine 10/15/19 Adam Hanson RN [address] [place] [address] Registered Nurse Family Medicine 04/26/25 Cathy Rucker 04/26/25 documented as of this encounter
--- OUTSIDE RECORDS SUMMARY | 2025-04-28 13:14 | XMS_ITS | Encounter Summary ---
Author Organization [employer] Address [address] [facility] 7t [place] [address] Care Team Providers Care Cadmium Liquor Maker Name Role Phone Leesa Rapp MD Primary Care Provide r Adam Hnason RN Unavailable [phone] Cathy Rucker Unavailable Reason for Visit * Reason Comments Med Refill Encounter Details Date Type Department Care Team (Late Contact Info) Description 12/31/2022 Refill [facility] [address] [place], [place] [phone] Vee [place] MD [address] [place], [place] [phone] Moderate persistent asthma without complication Social History [...] Description 05/16/2025 2:45 PM EDT Office Visit [facility] [address] [place] [address] Vee Harris MD [address] [place], [place] [phone] documented as of this encounter Visit Diagnoses Diagnosis Moderate persistent asthma without complication documented in this encounter Care Teams Cadmium Liquor Maker Relationship Specialty Start Date End Date Leesa Rapp MD [address] [place] [address] [phone] PCP - General Family Medicine 10/15/19 Adam Hanson RN [address] [place] [phone] Registered Nurse Family Medicine 04/26/25 Cathy Rucker 04/26/25 documented as of this encounter
--- OUTSIDE RECORDS SUMMARY | 2025-04-28 13:14 | XMS_ITS | Encounter Summary ---
Author Organization [employer] Address [address] [facility] 7t [place] [address] Care Team Providers Care Meat Loiner Name Role Phone Leesa Rapp MD Primary Care Provide r Adam Hanson RN Unavailable [phone] Cathy Rucker Unavailable Reason for Visit * Reason Onset Date Comments Nurse Triage 03/21/2025 Encounter Details Date Type Department Care Team ([facility] st Contact Info) Description 03/21/2025 Telephone [facility] [address] [place], [place] [phone] Leesa Rapp MD [address] [place], [place] [phone] Nurse Triage Social History Tobacco Use Types [...] PM EDT Triage call to Pt with [facility] [place] [id number] shelly Pt reports having facial rash from allergies and is very itchy. Pt reports that drinking water is difficult because of the way Pt mouth twists and fluid will spill. Pt daughter is concerned about Pt and asks for Pt to be seen. Maria E [place] [facility] contacted us due to Pt daughter concern. Pt is being followed by [facility] due to noro virus which was contracted by Pt. Daughter reports that Pt has rash widespread all over body, red, itchy. Pt appears to be anxious per daughter. Pt is advised to come to [facility] for provider to see Pt and orders can be given to assist Pt. Pt agrees to come to [facility] open till 8pm today. Pt agrees with [...] You become worse * Telephone Encounter - Ebonyvamshi Chris - 03/21/2025 3:52 PM EDT Tc from Maria E [place] at [facility] stating pts daughter made a call saying pts face was twisting , and pt is walking around with her face twisting . Maria E is requesting nurse reachout to pt and advise her to go too the hospital. Contact Maria E at [phone] Contact pt at [phone] documented in this encounter Plan of Treatment Upcoming Encounters Date Type Department Care Team (Late st Contact Info) Description 05/16/2025 2:45 PM EDT Office Visit [facility] [address] [place] [address] Vee Harris MD [address] [place] [phone] documented as of this encounter Visit Diagnoses Not on filedocumented in this encounter Additional Health Concerns Assessment Noted Time PHQ-9 Depression Total Score: 0 02/20/20 24 1:02 PM EDT documented as of this encounter Care Teams Meat Loiner Relationship Specialty Start Date End Date Leesa Rapp MD [address] [place] [address] PCP - General Family Medicine 10/15/19 Adam Hanson, ANTONIO [address] [place] [address] Registered Nurse Family Medicine 04/26/25 Cathy Rucker 04/26/25 documented as of this encounter
--- OUTSIDE RECORDS SUMMARY | 2025-04-28 13:14 | XMS_ITS | Encounter Summary ---
Author Organization [employer] Address 75 [facility] 7t [place] [address] Care Team Providers Care Undertaker Helper Name Role Phone Leesa Rapp MD Primary Care Provide r Adam Hanson RN Unavailable [phone] Cathy Rucker Unavailable Reason for Visit * Reason Comments Med Refill Encounter Details Date Type Department Care Team (Late Contact Info) Description 01/31/2023 Refill [facility] [address] [place], [place] [phone] Christy Stockton DO [address] [place], [place] [phone] Anxiety Social History Tobacco Use Types Packs/Day [...] Description 05/16/2025 2:45 PM EDT Office Visit [facility] MEDICINE [address] [place] [address] Vee Harris MD [address] [place] [address] documented as of this encounter Visit Diagnoses Diagnosis Anxiety Anxiety state, unspecified documented in this encounter Care Teams Undertaker Helper Relationship Specialty Start Date End Date Leesa Rapp MD [address] [place], [place] [phone] PCP - General Family Medicine 10/15/19 Adam Hanson, ANTONIO [address] [place] [address] Registered Nurse Family Medicine 04/26/25 Cathy Rucker 04/26/25 documented as of this encounter
--- OUTSIDE RECORDS SUMMARY | 2025-04-28 13:14 | XMS_ITS | Encounter Summary ---
Author Organization [employer] Address 75 [facility] 7t [place] [address] Care Team Providers Care Progressive Care Unit Registered Nurse Name Role Phone Leesa Rapp MD Primary Care Provide r Adam Hanson RN Unavailable Cathy Rucker Unavailable Reason for Visit * Reason Comments Care Coordination CM/CHW outreach Encounter Details Date Type Department Care Team (Latest Contact Info) Description 04/26/2025 Patient Outreach [facility] MEDICINE [address] [place], [place] [phone] Leesa Rapp MD [address] [place] [address] Care Coordination (CM/CHW outreach) Social History Tobacco Use Types Packs/Day Years [...] as of this encounter Progress Notes * Cathy Rucker - 04/26/2025 1:56 PM EDT CHW Cathy Rucker placed call to [facility], CHW was transferred to nurses station with no answer at thistime, CHW will reattempt with 2 days. documented in this encounter Plan of Treatment Upcoming Encounters Date Type Department Care Team (Late st Contact Info) Description 05/16/2025 2:45 PM EDT Office Visit [facility] MEDICINE [address] [place] [address] Vee Harris MD [address] [place] [address] documented as of this encounter Visit Diagnoses Not on filedocumented in this encounter Additional Health Concerns Assessment Noted Time PHQ-9 Depression Total Score: 19 025 9:53 AM EDT documented as of this encounter Care Teams Progressive Care Unit Registered Nurse Relationship Specialty Start Date End Date Leesa Rapp MD [address] [place] [address] PCP - General Family Medicine 10/15/19 Adam Hanson RN [address] [place] [address] Registered Nurse Family Medicine 04/26/25 Cathy Rucker 04/26/25 documented as of this encounter
--- OUTSIDE RECORDS SUMMARY | 2025-04-28 13:14 | XMS_ITS | Encounter Summary ---
Author Organization [employer] Address 75 [facility] 7t [place] [address] Care Team Providers Care Water Plant Maintenance Mechanic Name Role Phone Leesa Rapp MD Primary Care Provide r Adam Hanson RN Unavailable [phone] Cathy Rucker Unavailable Reason for Visit * Reason Comments Transition Of Care (Tcm) HDF- scheduled and SDOH screening completed on 11/08/2024 Encounter Details Date Type Department Care Team (Late st Contact Info) Description 04/27/2025 Patient Outreach [facility] MEDICINE [address] [place], [place] [phone] Leesa Rapp MD [address] [place], [place] [phone] Transition Of Care (Tcm) (HDF- scheduled and SDOH screening completed on 11/08/2024) Social History Tobacco [...] as of this encounter Miscellaneous Notes * Significant Event - Debra Connor - 04/27/2025 9:57 AM EDT 04/27/25 0956 Hospital Discharges and Admission for [facility] Type of Visit Hospital Admission Date of Admission/Visit 04/23/25 Date of Discharge 04/26/25 [facility] Diagnosis Crohn's Colitis Disposition Discharged Home Follow-Up Actions Follow-Up Needed Provider appointment Follow-Up Outcome Spoke to Patient;Spoke to Caregiver;Booked Appointment Initial Contact Date 04/27/25 BIGG Thomas placed outbound call to patient for HDF outreach. Patient's name and were confirmed by daughter Aissatou and patient. Patient educated on the importance of follow up with provider following inpatient admission. Patient offered an HDF appt. Patient is agreeable to an appointment and has been scheduled for 05/16/2025 at 2:45pm with . Insurance verified prior to scheduling. Patient advised to bring to appointment a photo id and insurance card. Patient also notified that a health center pharmacist will be reaching out to them via telephone prior to their scheduled appointment in order to review their medications in preparation for their appointment. Patient provided with education on contacting the Health Center with any questions or concerns prior to the scheduled appointment. Patient educated on extended clinic hours on Mondays and Wednesdays, and Walk-In UrgentCare Located in [facility]. Patient provided with after-hours line for [facility], , which offer night time triage service and option to transfer to monogram machine operator provider if needed. CC scanned discharge summary into patient's chart. Biggest concern for appointment at this time is wants to talk about her medications. Appropriate screenings completed in anticipation of appointment. documented in this encounter Plan of Treatment Upcoming Encounters Date Type Department Care Team (Late st Contact Info) Description 05/16/2025 2:45 PM EDT Office Visit [facility] MEDICINE [address] [place] [address] Vee Harris MD [address] [place] [address] documented as of this encounter Visit Diagnoses Not on filedocumented in this encounter Additional Health Concerns Assessment Noted Time PHQ-9 Depression Total Score: 19 025 9:53 AM EDT documented as of this encounter Care Teams Water Plant Maintenance Mechanic Relationship Specialty Start Date End Date Leesa Rapp MD [address] [place] [address] PCP - General Family Medicine 10/15/19 Adam Hanson RN [address] [place] [address] Registered Nurse Family Medicine 04/26/25 Cathy Rucker 04/26/25 documented as of this encounter
--- OUTSIDE RECORDS SUMMARY | 2025-04-28 13:14 | XMS_ITS | Encounter Summary ---
Author Organization [employer] Address 75 [facility] 7t [place] [address] Care Team Providers Care Remote Broadcast Technician Name Role Phone Leesa Rapp MD Primary Care Provide r Adam Hanson RN Unavailable [phone] Cathy Rucker Unavailable Reason for Visit * Reason Comments Med Refill Encounter Details Date Type Department Care Team ([facility] st Contact Info) Description 04/29/2024 Refill [facility] MEDICINE [address] [place], [place] [phone] Leesa Rapp MD [address] [place], [place] [phone] Anxiety Social History Tobacco Use Types Packs/Day [...] housing situation today? I have oneliarob rios 02/10/[address] you [...] Description 05/16/2025 2:45 PM EDT Office Visit [facility] MEDICINE [address] [place] [address] Vee Harris MD [address] [place] [address] documented as of this encounter Visit Diagnoses Diagnosis Anxiety Anxiety state, unspecified documented in this encounter Additional Health Concerns Assessment Noted Time PHQ-9 Depression Total Score: 0 02/20/20 24 1:02 PM EDT documented as of this encounter Care Teams Remote Broadcast Technician Relationship Specialty Start Date End Date Leesa Rapp MD [address] [place] [address] PCP - General Family Medicine 10/15/19 Adam Hanson RN [address] [place] [address] Registered Nurse Family Medicine 04/26/25 Cathy Rucker 04/26/25 documented as of this encounter
--- OUTSIDE RECORDS SUMMARY | 2025-04-28 13:14 | XMS_ITS | Encounter Summary ---
Author Organization [employer] Address 75 [facility] 7t [place] [address] Care Team Providers Care Carpenter Name Role Phone Leesa Rapp MD Primary Care Provide r Adam Hanson RN Unavailable [phone] Cathy Rucker Unavailable Encounter Details Date Type Department Care Team ([facility] Contact Info) Description 11/28/2022 Abstract [facility] MEDICINE [address] [place] [address] Leesa Rapp MD [address] [place] [address] Social History Tobacco Use Types Packs/Day Years [...] Description 05/16/2025 2:45 PM EDT Office Visit [facility] MEDICINE [address] [place] [address] Vee Harris MD [address] [place], [place] [phone] documented as of this encounter Visit Diagnoses Not on filedocumented in this encounter Care Teams Carpenter Relationship Specialty Start Date End Date Leesa Rapp MD [address] [place], [place] [phone] PCP - General Family Medicine 10/15/19 Adam Hanson RN [address] [place] [address] Registered Nurse Family Medicine 04/26/25 Cathy Rucker 04/26/25 documented as of this encounter
--- OUTSIDE RECORDS SUMMARY | 2025-04-28 13:14 | XMS_ITS | Encounter Summary ---
Author Organization [employer] Address 75 [facility] 7t [place] [address] Care Team Providers Care Jukebox Operator Name Role Phone Leesa Rapp MD Primary Care Provide r Adam Hanson RN Unavailable [phone] Cathy Rucker Unavailable Reason for Visit * Reason Comments Med Refill Encounter Details Date Type Department Care Team ([facility] st Contact Info) Description 09/03/2023 Refill [facility] [address] [place], [place] [phone] Rohini Meade MD [address] [place], [place] [phone] Chronic nonintractable headache, unspecified headache type Social [...] Description 05/16/2025 2:45 PM EDT Office Visit [facility] MEDICINE [address] [place] [address] Vee Harris MD [address] [place] [address] documented as of this encounter Visit Diagnoses Diagnosis Chronic nonintractable headache, unspecified headache type documented in this encounter Care Teams Jukebox Operator Relationship Specialty Start Date End Date Leesa Rapp MD [address] [place] [address] PCP - General Family Medicine 10/15/19 Adam Hanson RN [address] [place] [address] Registered Nurse Family Medicine 04/26/25 Cathy Rucker 04/26/25 documented as of this encounter
--- OUTSIDE RECORDS SUMMARY | 2025-04-28 13:14 | XMS_ITS | Encounter Summary ---
Author Organization [employer] Address 75 [facility] 7t [place] [address] Care Team Providers Care Anode Adjuster Name Role Phone Leesa Rapp MD Primary Care Provide r Adam Hanson RN Unavailable [phone] Cathy Rucker Unavailable Encounter Details Date Type Department Care Team (Late st Contact Info) Description 04/27/2025 Patient Outreach [facility] MEDICINE [address] [place] [address] Leesa Rapp MD [address] [place], [place] [phone] Social History Tobacco Use Types Packs/Day Years [...] 2:45 PM EDT Office Visit [facility] MED[facility]INE [address] [place] [address] Vee Harris MD [address] [place] [address] documented as of this encounter Visit Diagnoses Not on filedocumented in this encounter Additional Health Concerns Assessment Noted Time PHQ-9 Depression Total Score: 19 025 9:53 AM EDT documented as of this encounter Care Teams Anode Adjuster Relationship Specialty Start Date End Date Leesa Rapp MD [address] [place] [address] PCP - General Family Medicine 10/15/19 Adam Hanson, ANTONIO [address] [place] [address] Registered Nurse Family Medicine 04/26/25 Cathy Rucker 04/26/25 documented as of this encounter
--- OUTSIDE RECORDS SUMMARY | 2025-04-28 13:14 | XMS_ITS | Clinical Summary ---
Author Organization [employer] Address [address] [facility] [facility] 7t [place] [address] Care Team Providers Care Lead Bi Developer Name Role Phone Leesa Rapp MD Primary Care Provide r Adam Hanson RN Unavailable [phone] Cathy Rucker Unavailable Allergies Active Allergy Reactions Criticality Noted Date [...] e. START ON 05/20/24. 120 mL 1 025 Active amLODIPine (Norvasc) 2.5 MG tabletIndications :Benign hypertension Take 1 tablet (2.5 mg) by mouth Once per day. 30 tablet 11 025 2025 Active hydroquinone 4 % creamIndications: Melasma Apply topically 2 times daily. 28.35 g 025 2025 Active cholecalciferol (D3 Super Strength) 50 MCG (1999) capsuleIndication s:Vitamin D deficiency TAKE 1 CAPSULE BY MOUTH EVERY MORNING 90 capsule 1 025 Active Multiple Vitamin (Multivitamin) tabletIndications :Healthcare maintenance TAKE 1 TABLET BY MOUTH EVERY MORNING 90 tablet 1 025 Active Calcium Carb-Cholecalcife rol 600-10 MG-MCG tabletIndications :Vitamin D deficiency TAKE 1 TABLET BY MOUTH TWICE DAILY IN THE MORNING AND IN THE EVENING 180 tablet 1 Active montelukast (Singulair) 10 MG tabletIndications :Moderate [...] AND IN THE EVENING 60 tablet 2 Active budesonide-formot carisa (Symbicort) 160-4.5 MCG/ACT inhalerIndication s:Moderate persistent asthma without complication INHALE 2 PUFFS BY MOUTH TWICE DAILY IN THE MORNING AND IN THE EVENING RINSE MOUTH AFTER USING. 10.2 g 2 Active topiramate (Topamax) 100 MG tabletIndications :Chronic nonintractable headache, unspecified headache type TAKE 1 TABLET BY MOUTH TWICE DAILY IN THE MORNING AND AT BEDTIME 60 tablet 2 025 Active gabapentin (Neurontin) 100 MG capsuleIndication s:Anxiety TAKE 1 CAPSULE BY MOUTH TWICE DAILY 60 capsule 1 Active Eliquis 2.5 MG tablet Take 1 tablet by mouth 2 times daily. 025 Active sertraline (Zoloft) 25 MG tablet Take 1 tablet by mouth Once per day. Active hydrOXYzine HCl (Atarax) 10 MG tablet Take 1 tablet by mouth if needed in the morning, at noon, and at bedtime for anxiety. 025 Active cyclobenzaprine (Flexeril) 10 MG tabletIndications :Acute pain of left shoulder,Acute left-sided thoracic back pain,Acute left-sided low back pain without sciatica Take 1 tablet (10 mg) by mouth 3 times daily for 10 days. 30 tablet 025 2024 Active acetaminophen (Tylenol Extra Strength) 500 MG tabletIndications :Acute pain of left shoulder,Acute left-sided thoracic back pain,Acute left-sided low back pain without sciatica Take 2 tablets (1,000 mg) by mouth every 8 (eight) hours if needed for moderate pain for up to 10 days. 60 tablet 025 2024 Active Proventil HFA 108 (90 Base) MCG/ACT [...] Active Problems Problem Noted Date Diagnosed Date Neck pain 04/28/2025 Acute pain of left shoulder 04/28/2025 Acute left-sided thoracic back pain 04/28/2025 Left-sided low back pain without sciatica 2024 Acute Crohn's disease, unspecified complication 04/07/2025 Assessment [...] Plan (08/12/2024 10:57 AM EST): Stable, patient cruise counselor to avoid asthma triggers C/w same [...] (04/27/2023 7:32 AM EDT): Does not have lace paper machine operator or pain management nurse She asks about pain mgmt, but the majority of her pain is intra-abdominal I think pain mgmt would have little to offer her, and that focus should be on her her Crohn's activity Vitamin D deficiency 05/29/2015 Resolved Problems Problem Noted Date Diagnosed Date Resolved Date Pulmonary embolism 11/15/2022 3 Encounters Date Type Department Care Team Description 04/28/2025 10:45 AM EDT Office Visit [address] [address] Leesa Rapp MD Neck pain (Primary Dx); Acute pain of left shoulder; Acute left-sided thoracic back pain; Acute left-sided low back pain without sciatica 04/28/2025 Travel 04/27/[address] [address] Leesa Rapp MD chart prep 04/27/2025 Patient Outreach [address] [address] Leesa aRpp MD Transition Of Care (Tcm) (HDF- scheduled and SDOH screening completed on 11/08/2024) 04/27/2025 Patient Outreach [address] [address] Leesa Rapp MD 04/26/2025 Patient Outreach [address] [address] Leesa Rapp MD Care Coordination (CM/CHW outreach) 04/26/2025 Patient Outreach [address] [address] Leesa Rapp MD Care Coordination (CHW chart review) 04/26/2025 Patient Outreach [address] [address] Leesa Rapp MD Care Management (C3CM- chart review) 04/26/2025 Patient Outreach [address] [address] Leesa Rapp MD 04/23/2025 Orders Only [facility] External Provider, [facility] 04/19/2025 Patient Outreach [address] [address] Leesa Rapp MD Pre-visit Planning (SDOH screening completed on 11/08/2024) 04/07/2025 9:30 AM EDT Office Visit [facility] [address] [place] [address] Leesa Rapp MD Acute Crohn's disease, unspecified complication (CMS/HCC) (Primary Dx) 04/07/2025 Travel 04/05/2025 Telephone [facility] [address] [place] [address] Leesa Rapp MD Chart Prep 03/21/2025 6:00 PM EDT Office Visit [facility] [address] [place] [address] Leo Calles MD Xerosis of skin (Primary Dx); Involuntary movements 03/21/2025 Travel 03/21/[address] [address] Leesa Rapp MD Nurse Triage 03/21/2025 Patient Outreach [address] [address] Leesa Rapp MD Transition Of Care (Tcm) (LVM) 03/11/2025 Refill [facility] [address] [place] [address] Leesa Rapp MD Anxiety 02/16/2025 9:15 AM EDT Office Visit [address] [address] Leesa Rapp MD Essential hypertension; Encounter for screening mammogram for malignant neoplasm of breast; Rheumatoid arthritis involving multiple joints (CMS/HCC); Moderate persistent asthma, unspecified whether complicated; Dietary counseling; Exercise counseling; Class 1 obesity with serious comorbidity and body mass index (BMI) of 31.0 to 31.9 in adult, unspecified obesity type 02/16/2025 Travel 02/15/2025 Telephone [facility] [address] [place] [address] Leesa Rapp MD Chart Prep 02/11/2025 9:00 AM EDT Office Visit [address] [address] Ernestina Ayon MD Melasma (Primary Dx) 02/11/2025 Travel 02/11/2025 Refill [facility] [address] [place] [address] Leesa Rapp MD Depression with anxiety; Moderate persistent asthma without complication; Chronic nonintractable headache, unspecified headache type 02/09/2025 Patient Outreach [facility] [address] [place] [address] Leesa Rapp MD Pre-visit Planning (SDOH screening completed on 11/08/24) 02/07/2025 Refill [facility] [address] [place] [address] Leesa Rapp MD Yeast infection 01/30/2025 Refill [facility] [address] [place] [address] Leesa Rapp MD Vitamin D deficiency; Moderate [...] Answer Date Recorded Patient Health Questionnaire-9 Score 04/07/2025 Patient Health Questionnaire-9 Score 04/07/2025 Last [...] Mass Index 29.3 04/28/2025 10:54 AM EDT Plan of Treatment Upcoming Encounters Date Type Department Care Team (Late st Contact Info) Description 05/16/2025 2:45 PM EDT Office Visit [facility] [address] [place] [place] [address] Vee Harris MD [address] [place] [address] Health Maintenance Due Date Last Done Comments CT Colonography 1970 FIT DNA/Cologuard 1970 FIT 1970 HIV Screening 1970 Sigmoidoscopy 1970 Hepatitis C Screening 1988 FOBT 12/15/2020 12/16/2019, 11/30/2019 DTaP/Tdap/Td Vaccines (2 - Td or Tdap) 01/10/2021 01/10/2011, 09/22/2002 Zoster Vaccines (2 of 2) 12/19/2021 10/24/2021 Mammogram 03/13/2024 03/13/2023, 0404/2021, 12/16/2018 COVID-19 Vaccine ( - season) 2025 Influenza Vaccine (#1) 2025 , 06/25/2021, 06/18/2018, Additional history exists Depression Monitoring 10/08/2025 04/07/2025, 025 SDOH Screening 11/08/2025 11/08/2024 Alcohol/Substance Use Screening 02/16/2026 02/16/2025 Disability Screening 02/16/2026 02/16/2025 Tobacco Screening 04/28/2026 04/28/2025 Colonoscopy 11/08/2026 11/08/2024 Colorectal Cancer Screening 11/08/2026 [...] Comments CT ABDOMEN PELVIS W CONTRAST Routine 04/25/2025 4:17 AM EDT HM COLONOSCOPY Routine 11/08/2024 LIPID PANEL WITH REFLEX [...] Results * CT Abdomen Pelvis w/ Contrast (04/25/2025 4:17 AM EDT) Anatomical Region Laterality Modality Body, Pelvis, Abdomen Computed T omography 04/25/2025 4:17 AM EDT Narrative 04/25/2025 4:19 AM EDT [address] [address] [address] Scan Report Signed Patient: Leesa Reyes MR#: [id number] 682 : 1970 Acct:[id number] Age/Sex: 54 / F ADM Date: 04/23/25 Loc: [facility] 472-[address]: Leonard GUILLORY Ordering Physician: Augusto Levine MD Date of Service: 04/25/25 Procedure(s): CT abdomen pelvis w IV con Accession Number(s): [id number] cc: Leesa Rapp MD; Augusto Levine MD Report Number: [id number]: Total DLP = 508.00 mGy-cm CLINICAL HISTORY: pain CT abdomen and pelvis with contrast Comparison: CT/REG/SR - CT ABDOMEN PELVIS W IV CON - 04/23/25 01:[address]/SR - CT ABDOMEN PELVIS W IV CON - 03/16/25 07:42 EDT Findings: The lung bases are clear. The liver, gallbladder, pancreas, spleen, adrenal glands, and kidneys are unremarkable. Patient is status post sigmoid colectomy with a colocolonic anastomosis. There is mild wall thickening of the distal colon stable to slightly improved from the prior CT consistent with mild colitis. The gastrointestinal tract is otherwise unremarkable. Patient is status post ventral hernia repair with a mesh. Uterus and adnexa are unremarkable. There are no enlarged lymph nodes. The aorta is normal in diameter. There is no fracture or suspicious lytic or sclerotic lesion. IMPRESSION: Mild wall thickening of the distal colon consistent with mild colitis stable to slightly improved from the prior CT. This document has been electronically signed by: Brett Buckley MD on 04/25/2025 04:17:51 Dictated By: Brett Buckley MD Signed By: <Electronically signed by Brett Buckley MD in OV> 04/25/258 DD/ 6 TD/TT: 04/25/25416 Hair Machine Operator: Procedure Note Donotuseinterpreter, Image - 04/25/[address] [address] [address] Scan Report Signed Patient: Leesa Reyes MMR#: [id number] 682 : 1970Acct:[id number] Age/Sex: 54 / FADM Date: 04/23/25 Loc: [facility] 472-[address]: Leonard GUILLORY Ordering Physician: Augusto Levine MD Date of Service: 04/25/25 Procedure(s): CT abdomen pelvis w IV con Accession Number(s): [id number] cc: Leesa Rapp MD; Augusto Levine MD Report Number: [id number]: Total DLP = 508.00 mGy-cm CLINICAL HISTORY: pain CT abdomen and pelvis with contrast Comparison: CT/REG/SR - CT ABDOMEN PELVIS W IV CON - 04/23/25 01:[address]/SR - CT ABDOMEN PELVIS W IV CON - 03/16/25 07:42 EDT Findings: The lung bases are clear. The liver, gallbladder, pancreas, spleen, adrenal glands, and kidneys are unremarkable. Patient is status post sigmoid colectomy with a colocolonic anastomosis. There is mild wall thickening of the distal colon stable to slightly improved from the prior CT consistent with mild colitis. The gastrointestinal tract is otherwise unremarkable. Patient is status post ventral hernia repair with a mesh. Uterus and adnexa are unremarkable. There are no enlarged lymph nodes. The aorta is normal in diameter. There is no fracture or suspicious lytic or sclerotic lesion. IMPRESSION: Mild wall thickening of the distal colon consistent with mild colitis stable to slightly improved from the prior CT. This document has been electronically signed by: Brett Buckley MD on 04/25/2025 04:17:51 Dictated By: Brett Buckley MD Signed By: <Electronically signed by Brett Buckley MD in OV> 04/25/25417 DD/ 6 TD/TT: 04/25/25416 Hair Machine Operator: [facility] External Provider IMG CT PROCEDURES Final Result * Colonoscopy (11/08/2024) Colonoscopy Normal Normal Narrative Glenna Best - 11/08/2024 Repeat Colonoscopy in 2 years for Crohn's disease surveillance. See external admission note on 11/08/2024 us Historical Provider HEALTH MAINTENANCE Final Result * (ABNORMAL) Lipid Panel with Reflex to Direct LDL (05/19/2024 11:00 AM EDT) Triglycerides 214(H) <150 mg/dL [facility] Comment:Desirable Triglyceri de: less than 150 mg/dLBorderline High Triglyceride 150-199 mg/dLHigh Triglyceride: 200-499 mg/dLVery High Triglyceride: greater than or equal to 5OO mg/dL Cholesterol 207(H) <200 mg/dL [facility] Comment:Desirable Cholestero l: less than 200 mg/dLBorderline High Cholesterol: 200-239 mg/dLHigh Cholesterol: greater than 239 mg/dL LDL Cholesterol Calculated 124(H) <100 mg/dL [facility] Comment:Desirable LDL: less than 100 mg/dLNear Optimal/Above Optimal LDL: 110- 129 mg/dLBorderline High LDL: 130-159 mg/dLHigh LDL: 160-189 mg/dLVery High LDL: greater than or equal to 190 mg/dL HDL Cholesterol 41 >40 mg/dL [facility] Comment:Desirable HDL: great er than 40 mg/dL Note: This HDL assay may give artificially low results in patients with liver disease. Blood 05/19/2024 11:0 0 AM EDT 05/19/2024 1:20 PM EDT us Leesa Wasserman MD LAB BLOOD ORDERABLES Final Result [facility] [address] [place] [address] [phone] * Image-Guided Pap with Age-Based Screening??with CT/NG,??Trichomonas (07/03/2023 10:41 AM EST) Trichomonas (NAAT) Not Detected Not Detected [facility] Comment:Methodology: Transcr iption Mediated Amplification(TMA)The analytical performance characteristics of thisassay have been determined by [facility], [place], [place]. The modificationshave not been cleared or approved by the FDA. Thisassay has been validated pursuant to the CLIAregulations and is used for clinical purposes.For additional information, please refer tohttp://education.[employer] concepts/faq/Trichomonastma (This link is being providedfor information/educational purposes only).THIS TEST WAS PERFORMED AT:[employer] [id number] [place] [phone] ALLAN MD,PHD CTNG Ref Lab Not Detected Not Detected [facility] NG Ref Lab Not Detected Not Detected [facility] Comment:Methodology: Transcr iption Mediated Amplification(TMA) to detect RNA.The analytical performance characteristics of thisassay, when used to test [employer] specimens havebeen determined by [employer]. The modificationshave not been cleared or approved by the FDA.This assay has been validated pursuant to the CLIAregulations and is used for clinical purposes.For additional information, please refer tohttps://education.[employer] concepts/faq/GLQ218(This link is being provided for information/educational purposes only).THIS TEST WAS PERFORMED AT:[employer] [address] [phone] ALLAN MD,PHD 07/03/2023 10:4 1 AM EST 07/04/2023 9:02 AM EST us Leesa Wasserman MD LAB CYTOLOGY ORDERABL ES Final Result [facility] [address] [place] [phone] * HPV mRNA E6/E7 w/Reflex to HPV Genotypes 16, 18/45 (07/03/2023 10:41 AM EST) HPV nRNA E6/E7 Not Detected Not Detected [facility] Comment:Methodology: Transcr iption-Mediated AmplificationThis assay detects E6/E7 viral messenger RNA (mRNA) from 14high-risk HPV types (16,18,31,33,35,39,45,51,52,56,58,59,66,68).Cervical sources are required for HPV testing.If a vaginal source from a patient who has had atotal hysterectomy with removal of cervix wassubmitted, please contact the testing laboratoryfor alternative testing options.For additional information, please refer tohttp://education.[employer]jh [employer] marketing concepts/faq/EEI654v4(This link if provided for information/educational purposes only.)THIS TEST WAS PERFORMED AT:[employer] [place] [phone] BARROW MD HPV mRNA E6/E7 [facility] HPV 16 RNA [facility] HPV 18/45 RNA [facility] 07/03/2023 10:4 1 AM EST 07/04/2023 8:10 AM EST Leesa Wasserman MD LAB CYTOLOGY ORDERABL ES Final Result [facility] [address] [place] [phone] * BI Mammogram Screening Tomosynthesis Bilateral (03/13/2023 1:46 PM EDT) Anatomical Region Laterality Modality Breast Bilateral Mammography 03/13/2023 1:46 PM EDT Narrative 04/08/2023 1:29 PM EDT [facility] [address] [place] [address] Mammography Report Signed Patient: Leesa Reyes MR#: [id number] 682 : 1970 Acct:[id number] Age/Sex: 52 / F ADM Date: 03/13/23 Loc: HO.MAMMO Attending Dr: Leesa Wasserman MD Ordering Physician: Leesa Rapp MD Results: Date of Service: 03/13/23 Follow Up: Procedure(s): MM tomosynthesis screening BI Accession Number(s): [id number] cc: Leesa Rapp MD EXAMINATION: MM SCREENING [...] in OV> 04/08/23 1327 DD/ 1346 TD/TT: Hair Machine Operator: Procedure Note Donotuseinterpreter, Image - 04/08/2023 [facility] [address] [place] [address] Mammography Report Signed Patient: Leesa Reyes [facility]#: [id number] 682 : 1970Acct:[id number] Age/Sex: 52 / FADM Date: 03/13/23 Loc: [facility] Attending Dr: Leesa Wasserman MD Ordering Physician: Leesa Rappesults: Date of Service: 03/13/23Follow Up: Procedure(s): MM tomosynthesis screening BI Accession Number(s): [id number] cc: Leesa Rapp MD EXAMINATION: MM SCREENING [...] in OV> 04/08/23 1327 DD/ 1346 TD/TT: Hair Machine Operator: us Leesa Wasserman MD IMG BI PROCEDURES Fin al Result * OCCULT BLOOD STOOL (12/16/2019 4:02 PM EDT) OCCULT BLOOD STOOL NEG NEG [facility] 12/16/2019 4:02 PM EDT us Historical Provider LAB BODY FLUIDS AND STOOL S ORDERABLES Final Result [facility] [address] from Last 3 Months or Most Recently Relevant to Health Maintenance Insurance qualifyor C3 Care Teams Lead Bi Developer Relationship Specialty Start Date End Date Leesa Rapp MD [address] [place] [address] PCP - General Family Medicine 10/15/19 Adam Hanson, ANTONIO [address] [place] [address] Registered Nurse Family Medicine 04/26/25 Cathy Rucker 04/26/25
--- OUTSIDE RECORDS SUMMARY | 2025-04-28 13:14 | XMS_ITS | Encounter Summary ---
Author Organization [employer] Address [address] [facility] [address] [place] [address] Care Team Providers Care Survey Project Manager Name Role Phone Leesa Rapp MD Primary Care Provide r Adam Hanson RN Unavailable [phone] Cathy Rucker Unavailable Encounter Details Date Type Department Care Team ([facility] Contact Info) Description 10/30/2022 Orders Only [facility] [address] [place], [place] [phone] Christy Kaye LPN Social History Tobacco Use [...] Upcoming Encounters Date Type Department Care Team ([facility] Contact Info) Description 05/16/2025 2:45 PM EDT Office Visit [facility] [address] [place], [place] [phone] Vee Harris MD [address] [place] [address] documented as of this encounter Visit Diagnoses Not on filedocumented in this encounter Care Teams Survey Project Manager Relationship Specialty Start Date End Date Leesa Rapp MD [address] [place] [phone] PCP - General Family Medicine 10/15/19 Adam Hanson RN [address] [place] [address] Registered Nurse Family Medicine 04/26/25 Cathy Rucker 04/26/25 documented as of this encounter
--- OUTSIDE RECORDS SUMMARY | 2025-04-28 13:14 | XMS_ITS | Encounter Summary ---
Author Organization [employer] Address [address] [place] [address] Care Team Providers Care Air Brake Adjuster Name Role Phone Leesa Rapp MD Primary Care Provide r Adam Hanson RN Unavailable [phone] Cathy Rucker Unavailable Encounter Details Date Type Department Care Team (Latest Contact Info) Description 04/28/2025 Travel Social History Tobacco Use Types Packs/Day Years [...] Description 05/16/2025 2:45 PM EDT Office Visit [facility] [address] [place] [address] Vee Harris MD [address] [place] [address] documented as of this encounter Visit Diagnoses Not on filedocumented in this encounter Additional Health Concerns Assessment Noted Time PHQ-9 Depression Total Score: 19 025 9:53 AM EDT documented as of this encounter Care Teams Air Brake Adjuster Relationship Specialty Start Date End Date Leesa Rapp MD [address] [place] [address] PCP - General Family Medicine 10/15/19 Adam Hanson RN [address] [place] [address] Registered Nurse Family Medicine 04/26/25 Cathy Rucker 04/26/25 documented as of this encounter
--- OUTSIDE RECORDS SUMMARY | 2025-04-28 13:14 | XMS_ITS | Clinical Summary ---
Author Organization [facility] Address [address] [place] [address] Care Team Providers Care Channeling Machine Operator Name Role Phone Macy Washburn NP Primary Care Provider [phone] Social History Tobacco Use Types Packs/Day Years [...] 2020 Zoster Vaccines (1 of 2) 2020 Colorectal Cancer Screening: Colonoscopy 06/19/2024 HIV Screening 06/19/2024 Hepatitis C Screening 06/19/2024 Social Influencers of Health Screening 06/19/2024 Depression Screening 08/25/2024 COVID-19 Vaccine (2023-2 5 season) 2025 Influenza Vaccine (#1) 2025 HIB Vaccines Aged [...] age to complete this topic Care Teams Channeling Machine Operator Relationship Specialty Start Date End Date Macy Washburn NP [address] [place] [phone] PCP - General 03/12/05
--- OUTSIDE RECORDS SUMMARY | 2025-04-28 13:15 | XMS_ITS ---
Author Organization [employer] Address [address] [facility] [address] [place] [address] Care Team Providers Care Media Clerk Name Role Phone Leesa Rapp MD Primary Care Provide r Adam Hanson RN Unavailable [phone] Cathy Rucker Unavailable [facility] Status:Outreach In Progress (Enrolling) Start date:04/26/2025 Enrollment reason:ADT Feed Overview ADT-admitted [facility] 04/23/25. Please outreach for enrollment. Please outreach facility. Case Team Name Relationship Phone Cathy Rucker(Responsible Staff) [phone] Continued Care and Services Coordination
--- OUTSIDE RECORDS SUMMARY | 2025-04-28 13:15 | XMS_ITS | Encounter Summary ---
Author Organization [employer] Address [address] 7t [place] [address] Care Team Providers Care Beef Specialist Name Role Phone Leesa Rapp MD Primary Care Provide r Encounter Details Date Type Department Care Team (Late st Contact Info) Description 04/23/2025 Orders Only [facility] External Provider, [facility] Social History Tobacco Use Types Packs/Day Years [...] Description 05/16/2025 2:45 PM EDT Office Visit [facility] [address] [place], [place] [phone] Vee Harris MD [address] [place], [place] [phone] documented as of this encounter Procedures Procedure Name Priority Date/Time Associated Diagnosis Comments CT ABDOMEN PELVIS W CONTRAST Routine 04/25/2025 4:17 AM EDT documented in this encounter Results * CT Abdomen Pelvis w/ Contrast (04/25/2025 4:17 AM EDT) Anatomical Region Laterality Modality Body, Pelvis, Abdomen Computed T omography 04/25/2025 4:17 AM EDT Narrative 04/25/2025 4:19 AM EDT [address] [address] [address] Scan Report Signed Patient: Leesa Reyes MR#: [id number] : 1970 Acct:[id number] Age/Sex: 54 / F ADM Date: 04/23/25 Loc: [facility] [address]: Leonard GUILLORY Ordering Physician: Augusto Levine MD Date of Service: 04/25/25 Procedure(s): CT abdomen pelvis w IV con Accession Number(s): [id number] cc: Leesa Rapp MD; Augusto Levine MD Report Number: [id number]: Total DLP = 508.00 mGy-cm CLINICAL HISTORY: [...] in OV> 04/25/258 DD/ 6 TD/TT: 04/25/25416 Signals Intelligence Superintendent: Procedure Note Donotuseinterpreter, Image - 04/25/[address] [place] [address] [address] Scan Report Signed Patient: Leesa Reyes [facility]#: [id number] : 1970Acct:[id number] Age/Sex: 54 / FADM Date: 04/23/25 Loc: [facility] 472-[address]: Leonard GUILLORY Ordering Physician: Augusto Levine MD Date of Service: 04/25/25 Procedure(s): CT abdomen pelvis w IV con Accession Number(s): [id number] cc: Leesa Rapp MD; Augusto Levine MD Report Number: [id number]: Total DLP = 508.00 mGy-cm CLINICAL HISTORY: [...] signed by Brett Buckley MD in OV> 04/25/25 0418 DD/ TD/TT: 04/25/25 041 Signals Intelligence Superintendent: [facility] External Provider IMG CT PROCEDURES Final Result documented in this encounter Visit Diagnoses Not on filedocumented in this encounter Additional Health Concerns Assessment Noted Time PHQ-9 Depression Total Score: 19 08/2 025 9:53 AM EDT documented as of this encounter Care Teams Beef Specialist Relationship Specialty Start Date End Date Leesa Rapp MD [address] [place] [id number] PCP - General Family Medicine 10/15/19 documented as of this encounter
--- OUTSIDE RECORDS SUMMARY | 2025-04-28 13:15 | XMS_ITS | Encounter Summary ---
Author Organization [employer] Address [address] [facility] 7t [place] [address] Care Team Providers Care Lining Sewer Name Role Phone Leesa Rapp MD Primary Care Provide r Adam Hanson RN Unavailable Cathy Rucker Unavailable Reason for Visit * Reason Comments Care Coordination CHW chart review Encounter Details Date Type Department Care Team (Latest Contact Info) Description 04/26/2025 Patient Outreach [facility] [address] [place], [place] [phone] Leesa Rapp MD [address] [place], [place] [phone] Care Coordination (CHW chart review) Social History Tobacco Use Types Packs/Day Years [...] Progress Notes * Cathy Rucker - 04/26/2025 1:35 PM EDT CM/C3 JENAE Rucker Chart Review JENAE Rucker reviewed chart review completed by BECKIE Hanson RN, performed chart review, in anticipation of initial assessment with patient, as patient has stratified for C3 Adult Complex Care through the ADT feed. History significant for atypical chest pain, chronic pain syndrome, fibromyalgia, headache, Crohn's disease, dysuria, HTN, forgetfulness, hemorrhagic cyst of ovary, iron deficiency anemia, mild persistent asthma, mixed hyperlipidemia, mixed anxiety and depressive disorder, mood disorder, palpitations, MARISOL, rheumatoid arthritis involving multiple joints, vitamin D deficiency, insomnia, onycholysis, colon stricture, full incontinence of feces, discoloration of skin, and constipation. Specialists include [facility] GI, [facility] Derm, [facility], Behavioral Health- psych, and [facility] General Surgery. ED visits within the last 12 months include [facility] ED 04/23/25, [facility] 03/18/25-03/20/25, [facility] ED 02/06/25, [facility] ED 11/29/24, and[facility] 09/09/24. Patient admitted to [facility] on 04/23/25 Dx noninfective gastroenteritis and colitis. Disc harge pending. Last appointment in PCP office on 04/07/25. Next appointment scheduled for 04/28/25 at 10:45am for follow up with PCP. documented in this encounter Plan of Treatment Upcoming Encounters Date Type Department Care Team (Late st Contact Info) Description 05/16/2025 2:45 PM EDT Office Visit [facility] [address] [place] [address] Vee Harris MD [address] [place] [address] documented as of this encounter Visit Diagnoses Not on filedocumented in this encounter Additional Health Concerns Assessment Noted Time PHQ-9 Depression Total Score: 19 025 9:53 AM EDT documented as of this encounter Care Teams Lining Sewer Relationship Specialty Start Date End Date Leesa Rapp MD [address] [place] [address] PCP - General Family Medicine 10/15/19 Adam Hanson RN [address] [place] [address] Registered Nurse Family Medicine 04/26/25 Cathy Rucker 04/26/25 documented as of this encounter
--- OUTSIDE RECORDS SUMMARY | 2025-04-28 13:15 | XMS_ITS | Encounter Summary ---
Author Organization [employer] Address [address] [facility] 7t [place] [address] Care Team Providers Care Powerhouse Mechanic Supervisor Name Role Phone Leesa Rapp MD Primary Care Provide r Adam Hanson RN Unavailable [phone] Cathy Rucker Unavailable Reason for Visit * Reason Comments Care Management C3- chart review Encounter Details Date Type Department Care Team ([facility] st Contact Info) Description 04/26/2025 Patient Outreach [facility] [address] [place] [address] Leesa Rapp MD [address] [place], [place] [phone] Care Management (C3CM- chart review) Social History Tobacco Use Types [...] as of this encounter Progress Notes * Adam Hanson RN - 04/26/2025 8:07 AM EDT BECKIE Hanson RN, performed chart review, in [...] discoloration of skin, and constipation. Specialists include [facility] GI, [facility] Derm, Rhe[facility]ology- [facility], Behavioral Health- psych, and [facility] General Surgery. ED visits within the last 12 months include [facility] ED 04/23/25, [facility] 03/18/25-03/20/25, [facility] 02/06/25, [facility] 11/29/24, and[facility] 09/09/24. Patient admitted to [facility] on 04/23/25 Dx noninfective gastroenteritis and colitis. Disc harge pending. Last appointment in PCP office on 04/07/25. Next appointment scheduled for 04/28/25 at 10:45am for follow up with PCP. documented in this encounter Plan of Treatment Upcoming Encounters Date Type Department Care Team (Late st Contact Info) Description 05/16/2025 2:45 PM EDT Office Visit [facility] [address] [place] [phone] Vee Harris MD [address] [place] [phone] documented as of this encounter Visit Diagnoses Not on filedocumented in this encounter Additional Health Concerns Assessment Noted Time PHQ-9 Depression Total Score: 19 025 9:53 AM EDT documented as of this encounter Care Teams Powerhouse Mechanic Supervisor Relationship Specialty Start Date End Date Leesa Rapp MD [address] [place] [phone] PCP - General Family Medicine 10/15/19 Adam Hanson RN [address] [place] [address] Registered Nurse Family Medicine 04/26/25 Cathy Rucker 04/26/25 documented as of this encounter
--- OUTSIDE RECORDS SUMMARY | 2025-04-28 13:15 | XMS_ITS | Encounter Summary ---
Author Organization [employer] Address [address] [facility] 7t [place] [address] Care Team Providers Care Health Care Coach Name Role Phone Leesa Rapp MD Primary Care Provide r Adam Hanson RN Unavailable [phone] Cathy Rucker Unavailable Reason for Visit * Reason Comments Med Refill Encounter Details Date Type Department Care Team (Late st Contact Info) Description 12/10/2024 Refill [facility] [address] [place], [place] [phone] Leesa Rapp MD [address] [place], [place] [phone] Anxiety Social History Tobacco Use Types Packs/Day [...] Description 05/16/2025 2:45 PM EDT Office Visit [facility] [address] [place] [address] eVe Harris MD [address] [place] [address] documented as of this encounter Visit Diagnoses Diagnosis Anxiety Anxiety state, unspecified documented in this encounter Additional Health Concerns Assessment Noted Time PHQ-9 Depression Total Score: 0 02/20/20 24 1:02 PM EDT documented as of this encounter Care Teams Health Care Coach Relationship Specialty Start Date End Date Leesa Rapp MD [address] [place] [address] PCP - General Family Medicine 10/15/19 Adam Hanson RN [address] [place] [address] Registered Nurse Family Medicine 04/26/25 Cathy Rucker 04/26/25 documented as of this encounter
--- OUTSIDE RECORDS SUMMARY | 2025-04-28 13:15 | XMS_ITS | Encounter Summary ---
Author Organization [employer] Address [address] [facility] 7t [place] [address] Care Team Providers Care Health Commissioner Name Role Phone Leesa Rapp MD Primary Care Provide r Adam Hanson RN Unavailable [phone] Cathy Rucker Unavailable Reason for Visit * Reason Comments Med Refill Encounter Details Date Type Department Care Team (Late st Contact Info) Description 12/01/2024 Refill [facility] [address] [place], [place] [phone] Leesa Rapp MD [address] [place], [place] [phone] Anxiety Social History Tobacco Use Types Packs/Day [...] Description 05/16/2025 2:45 PM EDT Office Visit [facility] [address] [place] [address] Vee Harris MD [address] [place] [address] documented as of this encounter Visit Diagnoses Diagnosis Anxiety Anxiety state, unspecified documented in this encounter Additional Health Concerns Assessment Noted Time PHQ-9 Depression Total Score: 0 02/20/20 24 1:02 PM EDT documented as of this encounter Care Teams Health Commissioner Relationship Specialty Start Date End Date Leesa Rapp MD [address] [place] [address] PCP - General Family Medicine 10/15/19 Adam Hanson RN [address] [place] [address] Registered Nurse Family Medicine 04/26/25 Cathy Rucker 04/26/25 documented as of this encounter
--- OUTSIDE RECORDS SUMMARY | 2025-04-28 13:15 | XMS_ITS | Encounter Summary ---
Author Organization [employer] Address [address] [facility] 7t [place] [address] Care Team Providers Care Third Steel Pourer Name Role Phone Leesa Rapp MD Primary Care Provide r Adam Hanson RN Unavailable [phone] Cathy Rucker Unavailable Encounter Details Date Type Department Care Team (Late st Contact Info) Description 09/04/2022 Orders Only [facility] [address] [place] [phone] Alayna Delcid LPN Social History Tobacco Use [...] Description 05/16/2025 2:45 PM EDT Office Visit [facility] [address] [place] [address] [phone] Vee Harris MD [address] [place] [address] [phone] documented as of this encounter Visit Diagnoses Not on filedocumented in this encounter Care Teams Third Steel Pourer Relationship Specialty Start Date End Date Leesa Rapp MD [address] [place] [address] [phone] PCP - General Family Medicine 10/15/19 Adam Hanson RN [address] [place] [address] Registered Nurse Family Medicine 04/26/25 Cathy Rucker 04/26/25 documented as of this encounter
--- OUTSIDE RECORDS SUMMARY | 2025-04-28 13:15 | XMS_ITS | Encounter Summary ---
Author Organization [employer] Address [address] [facility] 7t [place] [address] Care Team Providers Care Private Investigator Name Role Phone Leesa Rapp MD Primary Care Provide r Adam Hanson RN Unavailable [phone] Cathy Rucker Unavailable Encounter Details Date Type Department Care Team (Late st Contact Info) Description 04/26/2025 Patient Outreach [facility] [address] [place] [address] Leesa Rapp MD [address] [place], [place] [phone] Social History Tobacco Use Types Packs/Day Years [...] Description 05/16/2025 2:45 PM EDT Office Visit [facility] [address] [place] [address] Vee Harris MD [address] [place] [address] documented as of this encounter Visit Diagnoses Not on filedocumented in this encounter Additional Health Concerns Assessment Noted Time PHQ-9 Depression Total Score: 19 025 9:53 AM EDT documented as of this encounter Care Teams Private Investigator Relationship Specialty Start Date End Date Leesa Rapp MD [address] [place] [address] PCP - General Family Medicine 10/15/19 Adam Hanson, ANTONIO [address] [place] [address] Registered Nurse Family Medicine 04/26/25 Cathy Ruckre 04/26/25 documented as of this encounter
== END 2025-04-28 11:33 | disposition home or self-care (01) ==
LOC: HO.HHCX 11:32
PROVIDERS: PCP Internal Medicine; Visit Provider Internal Medicine
DX: M54.6 Pain in thoracic spine (principal); M54.50 Low back pain, unspecified; M25.512 Pain in left shoulder; M54.2 Cervicalgia
CPT/HCPCS: 72050; 72072; 72100; 73030

== ENCOUNTER → 2025-04-28 12:06 | Outpatient (BNV) | payer MEDICAID, SELFPAY | PROVIDERS: PCP Internal Medicine; Visit Provider Radiology Diagnostic Radiology | DX: Z04.3 Encounter for examination and observation following other accident (principal); M54.6 Pain in thoracic spine; M51.360 Other intervertebral disc degeneration, lumbar region with discogenic back pain only; M25.512 Pain in left shoulder; V89.2XXA Person injured in unspecified motor-vehicle accident, traffic, initial encounter | CPT/HCPCS: 72050; 72072; 72100; 73030 ==

== ENCOUNTER 2025-04-29 17:21 | Outpatient (REF) | payer MEDICAID, SELFPAY ==
--- OUTSIDE RECORDS SUMMARY | 2025-04-29 17:25 | XMS_ITS | Clinical Summary ---
Author Organization [facility] ity Address [address] [place] [address] Care Team Providers Care Cork Pressing Machine Operator Name Role Phone Macy Washburn NP Primary Care Provider [phone] Social History Tobacco Use Types Packs/Day Years [...] age to complete this topic Care Teams Cork Pressing Machine Operator Relationship Specialty Start Date End Date Macy Washburn NP [address] [place] [phone] PCP - General 03/12/05
[2025-04-29 20:48] LABS: Bacterial Vaginosis PCR NEGATIVE (Negative); Candida Group PCR DETECTED (Not Detect); Candida glab krusei PCR NOT DETECTED (Not Detect); Trichomonas vaginalis PCR NOT DETECTED (Not Detect)
== END 2025-04-29 17:22 | disposition home or self-care (01) ==
LOC: HO.LNP 17:21
PROVIDERS: Visit Provider Internal Medicine
DX: N89.8 Other specified noninflammatory disorders of vagina (principal)
CPT/HCPCS: 81515; 87086; 87088; 87186

== ENCOUNTER 2025-05-18 14:06 | Outpatient (REF) | payer MEDICAID, SELFPAY ==
--- OUTSIDE RECORDS SUMMARY | 2025-05-16 14:45 | XMS_ITS | Encounter Summary ---
Author Organization [employer] Address [address] [facility] [address] [place] [address] Care Team Providers Care Marketing Intern Name Role Phone Leesa Rapp MD Primary Care Provide r Adam Hanson RN Unavailable [phone] Cathy Rucker Unavailable Reason for Referral * Consultation (Routine) - Authorized Specialty Diagnoses / Procedures Referred By Arden wright Referred To Contact Family Medicine Diagnoses Crohn's disease with complication, unspecified gastrointestinal tract location (CMS/HCC) Vee Harris MD [address] [place] [id number] Phone: tel: fax: Referral ID Status Reason Start Date Expiration Date Visits Requested Visits Authorized [id number] Authorized Consult and Treat 05/18/2025 05/18/2026 1 1 * Consultation (Routine) - Pending Review Specialty Diagnoses / Procedures Referred By Arden wright Referred To Contact Gastroenterology Diagnoses Crohn's disease with complication, unspecified gastrointestinal tract location (CMS/HCC) Vee Harris MD [address] [place] [address] Phone: tel: fax: [facility] - Gastroenterology [address] [place] [address] Phone: tel: fax: Referral ID Status Reason Start Date Expiration Date Visits Requested Visits Authorized [id number] Pending Review Specialty Services Required 05/18/2025 05/18/2026 1 1 Encounter Details Date Type Department Care Team (Latest Contact Info) Description 05/16/2025 2:45 PM EDT Office Visit [facility] MEDICINE [address] [place] [address] Vee Harris MD [address] [place] [address] Crohn's disease with complication, unspecified gastrointestinal tract location (CMS/HCC) (Primary Dx); Sexually transmitted infection Social History Tobacco Use Types Packs/Day Years [...] Sign Reading Time Taken Comments Blood Pressure 128/72 05/16/2025 2:29 PM EDT Pulse 54 05/16/2025 2:29 PM EDT Temperature 35.9 C (96.7 F) 05/16/2025 2:29 PM EDT Respiratory Rate 17 05/16/2025 2:29 PM EDT Oxygen Saturation 98% 05/16/2025 2:29 PM EDT Inhaled Oxygen Concentration - - Weight 74.8 kg (165 lb) 05/16/2025 2:29 PM EDT Height 157.5 cm (5' 2 ) 05/16/2025 2:29 PM EDT Body Mass Index 30.18 05/16/2025 2:29 PM EDT documented in this encounter Progress Notes * Vee Harris MD - 05/16/2025 2:45 PM EDT SUBJECTIVE: Leesa Reyes is a 54 y.o. year old female who presents for hospital discharge followup. She was hospitalized for proctocolitis in the setting of Crohn's flare. Acute Concerns: Crohn???s disease and chronic abdominal pain - History of Crohn???s disease for approximately 32 years - Reports persistent, severe abdominal pain, described as very tender and present all over the abdomen - Pain worsens with movement and breathing - Experiences increased pain and inflammation with family-related stress - Reports pain is sometimes severe enough to require asking for pain relief in the form of narcotics - Reports swelling of the face as a side effect of prednisone, but no new or changed side effects - Noted improvement in inflammation approximately three days after each Stelara infusion, with benefit lasting about two weeks before symptoms return - Receives Stelara infusions every four weeks, next infusion 05/20/25 - Reports feeling returning abdominal symptoms during the last two weeks of the infusion cycle - History of seven abdominal surgeries related to Crohn???s disease - Reports chronic nausea - Reports history of constipation leading to hospital admission and infection earlier in the year - Reports that opioids were not recommended due to risk of worsening constipation - Received IV pain medication during hospitalizations - Reports Ambien prescribed for insomnia due to pain at times - Daughter has similar gastrointestinal symptoms, including frequent bathroom use, pain, and occasional bleeding, but not diagnosed with Crohn???s disease - we contacted [facility] while patient was here and they provided name of patient's previous second opinion in [place] (Dr Lencho Arreola at [facility] IBD clinic) and confirmed that Dr Palafox plans to see patient 06/09/25 - discussed acupuncture and chronic pain group visits as additional modalities of dealing with pain Psychological stress - Reports increased abdominal pain and inflammation with family pressure and stress - Sees a psychologist at [facility] for support - Finds psychological support helpful Pharmacy Consult Visit Type: HDF Pre-Visit Pharmacist: Parisa March PharmD Pharmacy Recommendations for provider: Please follow up with patient and confirm whether they have heard back from GI to schedule a followup Background Pharmacist Parisa March PharmD contacted patient to discuss upcoming hospital discharge visit for Crohn's colitis : Future Appointments Date Time Provider Department Center 05/16/2025 2:45 PM Vee Harris MD MEDICINE [facility] Hospital Course and Medication Reconciliation [facility] (04/23/25-04/26/25) Patient with PMH of Crohn's disease and GI surgeries presented for evaluation of abdominal pain. Noted to have proctocolitis secondary to resistant Crohn's flare. Reported increasing diarrhea and pain. Treated with empiric abc ceftriaxone and metronidazole. GI and C. Diff panel negative, abx discontinued. Patient returned to baseline and advised to continue on home medications. Discharged on prednisone taper and to follow up with GI. Medication changes that occurred during hospitalization include: Added Prednisone 10 mg - 4 tabs once daily x 7 days Pantoprazole 20 mg once daily Changed: none Discontinued: none Preferred Pharmacy: [facility] - [place], [facility] [address] [facility] [address] [facility] [id number] Medbox: Yes Date: 04/20/25 Patient Reported History Reported they picked up and completed prednisone, still taking pantoprazole w/o any issues/concerns Unable to confirm medication list as they were not at home however deny any changes to medications recently Deny follow up with GI. Reported they reached out to them and are waiting for a call back Confirmed and agreeable to HDF appointment as listed above Pharmacist Notes Discrepancies: Not listed to be continued on discharge: famotidine, folic acid, gabapentin, hydroquinone cream. Patient denies discontinuation of any medications at discharge Listed to be continued however no recent fill or new rx and not active in EHR: oxybutynin, ondansetron, diphenhydramine Patient Active Problem List Diagnosis Date Noted Abdominal pain 05/15/2025 Anxiety 05/15/2025 Bloody diarrhea 05/15/2025 Chest wall muscle strain 05/15/2025 Chronic osteoarthritis 05/15/2025 GERD (gastroesophageal reflux disease) 05/15/2025 History of colon resection 05/15/2025 History of DVT (deep vein thrombosis) 05/15/2025 History of pulmonary embolism 05/15/2025 Migraines 05/15/2025 Syncope, vasovagal 05/15/2025 Urge incontinence 05/15/2025 Thrush, oral 04/29/2025 Vaginal discharge 04/29/2025 Neck pain 04/28/2025 Acute pain of left shoulder 04/28/2025 Acute left-sided thoracic back pain 04/28/2025 Left-sided low back pain without sciatica 04/28/2025 Acute Crohn's disease, unspecified complication (CMS/[facility]) 04/07/2025 Crohn's disease of rectum with complication (CMS/[facility]) 12/08/2024 Nausea 12/08/2024 Crohn's disease with complication ([facility]) 11/17/2024 Fear of flying 08/12/2024 Discoloration of skin 08/12/2024 Seasonal allergic rhinitis 05/19/2024 Rash and nonspecific skin eruption 05/19/2024 Sebaceous cyst 05/19/2024 Dry eye 02/20/2024 Other constipation 02/20/2024 Full incontinence of feces 09/30/2023 Encounter for Papanicolaou smear for cervical cancer screening 07/03/2023 Rash 05/26/2023 Colon stricture ([facility]) 04/27/2023 Encounter for screening mammogram for malignant neoplasm of breast 02/26/2023 Onycholysis 02/26/2023 Infected wound 12/17/2022 Primary insomnia 12/17/2022 Preoperative clearance 11/18/2022 Atypical chest pain 11/15/2022 Chronic pain syndrome 11/15/2022 Fibromyalgia 11/15/2022 Dysuria 11/15/2022 Hypertensive disorder 11/15/2022 Forgetfulness 11/15/2022 Influenza-like symptoms 11/15/2022 Mild persistent asthma 11/15/2022 Mood disorder ([facility]) 11/15/2022 Palpitations 11/15/2022 Rhinitis 11/15/2022 Shoulder pain 11/15/2022 Skin rash 11/15/2022 Obstructive sleep apnea of adult 03/20/2021 Mixed hyperlipidemia 05/07/2018 Headache 05/29/2015 Crohn disease ([facility]) 05/29/2015 Essential hypertension 05/29/2015 Hemorrhagic cyst of ovary 05/29/2015 Iron deficiency anemia 05/29/2015 Moderate persistent asthma 05/29/2015 Mixed anxiety and depressive disorder 05/29/2015 Rheumatoid arthritis involving multiple joints ([facility]) 05/29/2015 Vitamin D deficiency 05/29/2015 Surgical History[1] Social History Social History Narrative Not on file Review of Systems Constitutional: Negative. Respiratory: Negative. Gastrointestinal: Positive for abdominal pain, blood in stool and constipation. Genitourinary: Negative. Musculoskeletal: Positive for arthralgias. Skin: Negative. Psychiatric/Behavioral: Positive for dysphoric mood. The patient is nervous/anxious. OBJECTIVE: Vitals: 05/16/25 1429 BP: 128/72 BP Location: Left arm Patient Position: Sitting BP Cuff Size: Large adult Pulse: 54 Resp: 17 Temp: 96.7 ??F (35.9 ??C) TempSrc: Temporal SpO2: 98% Weight: 165 lb (74.8 kg) Height: 5' 2 (1.575 m) Physical Exam Vitals and nursing note reviewed. Constitutional: Appearance: Normal appearance. HENT: Head: Normocephalic and atraumatic. Cardiovascular: Rate and Rhythm: Normal rate and regular rhythm. Pulses: Normal pulses. Heart sounds: Normal heart sounds. Pulmonary: Effort: Pulmonary effort is normal. Breath sounds: Normal breath sounds. Abdominal: General: Abdomen is flat. Bowel sounds are normal. There is no distension. Palpations: Abdomen is soft. There is no mass. Tenderness: There is abdominal tenderness. There is no guarding or rebound. Hernia: No hernia is present. Comments: Infrequent bowel sounds Diffuse tenderness to light and deep palpation Skin: General: Skin is warm and dry. Neurological: General: No focal deficit present. Mental Status: She is alert and oriented to person, place, and time. Psychiatric: Mood and Affect: Mood normal. Behavior: Behavior normal. ASSESSMENT/PLAN Problem List Items Addressed This Visit Crohn disease (CMS/HCC) - Primary Current Assessment & Plan - Receives Stelara infusions every four weeks, next infusion 05/20/25 - Reports feeling returning abdominal symptoms during the last two weeks of the infusion cycle - Reports that opioids were not recommended due to risk of worsening constipation - Reports Ambien prescribed for insomnia due to pain at times - labs today for monitoring inflammatory markers, need for ongoing prednisone - we contacted [facility] while patient was here and they provided name of patient's previous second opinion in [place] (Dr Lencho Arreola at [facility] clinic) and confirmed that Dr Palafox plans to see patient 06/09/25 - discussed accupuncture and chronic pain group visits as additional modalities of dealing with pain Relevant Orders Sed Rate by Modified Westergren C-reactive Protein CBC auto differential Referral to Gastroenterology Referral to [facility] Other Visit Diagnoses Sexually transmitted infection Relevant Orders HIV-1/2 Antigen and Antibodies, Fourth Generation, with Reflexes Hepatitis C Antibody with Reflex to HCV, RNA, Quantitative, Real-Time PCR RPR (Monitor) with Reflex to Titer Chlamydia/N. Gonorrhoeae RNA, TMA, Urogenitial Follow Up: per PCP recall or sooner prn Allergies[2] Current Medications[3] Bolivian Translation: Provided by [facility] staff member CAITLIN Pate [1] Past Surgical History: Procedure Laterality Date COLON STRICTURE DILATATION 2011 COLON SURGERY 2010 laparoscopic sigmoid colectomy with colostomy HERNIA REPAIR 11/2023 ILEO LOOP DIVERSION 04/2022 ILEOSTOMY REVISION 10/2022 reversal [2] Allergies Allergen Reactions Aspirin Hives Other reaction(s): rash Azathioprine Other reaction(s): pancreatitis, unspecified, vomiting Ibuprofen Other Reaction(s): TOLD NOT TO TAKE Levofloxacin Other reaction(s): yeast infection [3] Current Outpatient Medications: Acetaminophen Extra Strength 500 MG tablet, Take 1 tablet by mouth every 6 (six) hours if needed., Disp: , Rfl: albuterol (2.5 MG/3ML) 0.083% nebulizer solution, Take 3 mL (2.5 mg) by nebulization every 4 (four)hours if needed for wheezing., Disp: 75 mL, Rfl: 3 amLODIPine (Norvasc) 2.5 MG tablet, Take 1 tablet (2.5 mg) by mouth Once per day., Disp: 30 tablet,Rfl: 11 budesonide-formoterol (Symbicort) 160-4.5 MCG/ACT inhaler, INHALE 2 PUFFS BY MOUTH TWICE DAILY IN THE MORNING AND IN THE EVENING RINSE MOUTH AFTER USING., Disp: 10.2 g, Rfl: 2 busPIRone (Buspar) 5 MG tablet, TAKE 1 TABLET BY MOUTH EVERY DAY, Disp: 90 tablet, Rfl: 1 Calcium Carb-Cholecalciferol 600-10 MG-MCG tablet, TAKE 1 TABLET BY MOUTH TWICE DAILY IN THE MORNING AND IN THE EVENING, Disp: 180 tablet, Rfl: 1 cholecalciferol (D3 Super Strength) 50 MCG (2000 UT) capsule, TAKE 1 CAPSULE BY MOUTH EVERY MORNING, Disp: 90 capsule, Rfl: 1 cyclobenzaprine (Flexeril) 10 MG tablet, Take 1 tablet (10 mg) by mouth 3 times daily for 10 days.,Disp: 30 tablet, Rfl: 0 docusate sodium (Colace) 100 MG capsule, TAKE 1 CAPSULE BY MOUTH TWICE DAILY IN THE MORNING AND IN THE EVENING, Disp: 180 capsule, Rfl: 1 Eliquis 2.5 MG tablet, Take 1 tablet by mouth 2 times daily., Disp: , Rfl: famotidine (Pepcid) 20 MG tablet, TAKE 1 TABLET BY MOUTH TWICE DAILY NEEDED FOR DISCOMFORT OF THE ABDOMEN, Disp: , Rfl: fluconazole (Diflucan) 150 MG tablet, Take one tablet then after 72 hrs take another tablet, Disp: 2 tablet, Rfl: 0 fluticasone (Flonase) 50 MCG/ACT nasal spray, Administer 1 spray into each nostril Once per day., Disp: 16 g, Rfl: 3 folic acid (Folvite) 1 MG tablet, TAKE 1 TABLET BY MOUTH EVERY MORNING, Disp: , Rfl: gabapentin (Neurontin) 100 MG capsule, TAKE 1 CAPSULE BY MOUTH TWICE DAILY, Disp: 60 capsule, Rfl: 1 hydroquinone 4 % cream, Apply topically 2 times daily., Disp: 28.35 g, Rfl: 0 hydrOXYzine HCl (Atarax) 10 MG tablet, Take 1 tablet by mouth if needed in the morning, at noon, and at bedtime for anxiety., Disp: , Rfl: ketoconazole (NIZOral) 2 % shampoo, APPLY TO THE AFFECTED AREA(S), LEAVE FOR 5 MINUTES THEN RINSE FOR 3 DAYS consecutivemente. START ON 05/20/24., Disp: 120 mL, Rfl: 1 lactulose (Chronulac) 10 GM/15ML solution, Take 30 mL by mouth Once per day., Disp: , Rfl: LORazepam (Ativan) 0.5 MG tablet, Take 1 tablet (0.5 mg) by mouth every 6 (six) hours if needed foranxiety (use before flight) for up to 6 doses., Disp: 6 tablet, Rfl: 0 melatonin 5 MG tablet, Take 1 tablet by mouth at bedtime., Disp: , Rfl: methotrexate 2.5 MG tablet, TAKE 10 TABLETS BY MOUTH ONCE WEEKLY, Disp: , Rfl: montelukast (Singulair) 10 MG tablet, TAKE 1 TABLET BY MOUTH AT BEDTIME, Disp: 90 tablet, Rfl: 1 Multiple Vitamin (Multivitamin) tablet, TAKE 1 TABLET BY MOUTH EVERY MORNING, Disp: 90 tablet, Rfl:1 naloxone (Narcan) 4 mg/0.1 mL nasal spray, spray 0.1 milliliter by intranasal route once in 1 nostril may repeat dose every 2-3 minutes as needed alternating nostrils with each dose, Disp: , Rfl: pantoprazole (ProtoNix) 40 MG EC tablet, Take 40 mg by mouth Once per day., Disp: , Rfl: polyethylene glycol, PEG, 3350 (Glycolax) 17 GM/SCOOP powder, MIX 17G (1 CAPFUL) IN 8 OUNCES OF WATER AND TAKE BY MOUTH TWICE A DAY, Disp: , Rfl: polyvinyl alcohol (Liquifilm Tears) 1.4 % ophthalmic solution, INSTILL 1 DROP INTO THE AFFECTED EYE(S) THREE TIMES DAILY IN THE MORNING, AT NOON, AND AT BEDTIME NEEDED FOR DRY EYES, Disp: , Rfl: risperiDONE (RisperDAL) 1 MG tablet, TAKE 1 TABLET BY MOUTH TWICE DAILY IN THE MORNING AND IN THE EVENING, Disp: 60 tablet, Rfl: 2 sertraline (Zoloft) 25 MG tablet, Take 1 tablet by mouth Once per day., Disp: , Rfl: tofacitinib (Xeljanz) 10 MG tablet, Take 1 tablet by mouth 2 times daily., Disp: , Rfl: topiramate (Topamax) 100 MG tablet, TAKE 1 TABLET BY MOUTH TWICE DAILY IN THE MORNING AND AT BEDTIME, Disp: 60 tablet, Rfl: 2 zolpidem (Ambien) 5 MG tablet, TAKE 1 TABLET BY MOUTH AT BEDTIME NEEDED FOR SLEEP, Disp: 30 tablet, Rfl: 0 documented in this encounter Miscellaneous Notes * Assessment & Plan Note - Vee Harris MD - 05/18/2025 10:35 AM EDT Associated Problem(s): Crohn disease ([facility]) - Receives Stelara infusions every four weeks, next infusion 05/20/25 - Reports feeling returning abdominal symptoms during the last two weeks of the infusion cycle - Reports that opioids were not recommended due to risk of worsening constipation - Reports Ambien prescribed for insomnia due to pain at times - labs today for monitoring inflammatory markers, need for ongoing prednisone - we contacted [facility] while patient was here and they provided name of patient's previous second opinion in [place] (Dr Lencho Arreola at [facility] clinic) and confirmed that Dr Palafox plans to see patient 06/09/25 - discussed accupuncture and chronic pain group visits as additional modalities of dealing with pain documented in this encounter Plan of Treatment Scheduled Orders Name Type Priority Associated Diagnoses Orde r Schedule Sed Rate by Modified Westergren Lab Routine Crohn's disease with complication, unspecified gastrointestinal tract location (CMS/HCC) Expected: 05/16/2025, Expires: 05/16/2026 C-reactive Protein Lab Routine Crohn's disease with complication, unspecified gastrointestinal tract location (CMS/HCC) Expected: 05/16/2025 (Approximate), Expires: 05/16/2026 HIV-1/2 Antigen and Antibodies, Fourth Generation, with Reflexes Lab Routine Sexually transmitted infection Expected: 05/16/2025 (Approximate), Expires: 05/16/2026 Hepatitis C Antibody with Reflex to HCV, RNA, Quantitative, Real-Time PCR Lab Routine Sexually transmitted infection Expected: 05/16/2025, Expires: 05/16/2026 RPR (Monitor) with Reflex to Titer Lab Routine Sexually transmitted infection Expected: 05/16/2025, Expires: 05/16/2026 Chlamydia/N. Gonorrhoeae RNA, TMA, Urogenitial Microbiology Routine Sexually transmitted infection Expected: 05/16/2025 (Approximate), Expires: 05/16/2026 Scheduled Referrals Name Type Priority Associated Diagnoses Orde r Schedule Referral to Gastroenterology Outpatient Referral Routine Crohn's disease with complication, unspecified gastrointestinal tract location (CMS/HCC) Expected: 05/18/2025 (Approximate), Expires: 05/18/2026 Referral to [facility] Outpatient Referral Routine Crohn's disease with complication, unspecified gastrointestinal tract location (CMS/HCC) Expected: 05/18/2025 (Approximate), Expires: 05/18/2026 documented as of this encounter Procedures Procedure Name Priority Date/Time Associated Diagnosis Comments CBC WITH AUTO DIFFERENTIAL Routine 05/18/2025 2:11 PM EDT Crohn's disease with complication, unspecified gastrointestinal tract location (CMS/HCC) documented in this encounter Results * (ABNORMAL) CBC auto differential (05/18/2025 2:11 PM EDT) White Blood Count 5.7 4.8 - 10.8 X10*3/uL [facility] Red Blood Count 4.25 4.20 - 5.50 X10*6/uL [facility] Hemoglobin 11.3(L) 12.0 - 16.0 g/dl [facility] Hematocrit 36.3(L) 37.0 - 47.0 % [facility] Mean Corpuscular Volume 85.4 80.0 - 98.0 fL [facility] Mean Corpuscular Hemoglobin 26.6(L) 27.0 - 33.0 pg [facility] Mean Corpuscular HGB Conc 31.1 31.0 - 35.0 g/dl [facility] Red Cell Distribution Width 16.9(H) 11.0 - 16.0 % [facility] Platelet Count 206 160 - 400 X10*3/uL [facility] Mean Platelet Volume 12.8(H) 9.4 - 12.3 fL [facility] Neutrophils Percent Auto 58.8 45 - 73 % [facility] Imm Gran Pct Auto 0.4 0.0 - 0.4 % [facility] Lymphocytes Percent Auto 29.0 20 - 40 % [facility] Monocytes Percent Auto 9.5 2 - 11 % [facility] Eosinophils Percent Auto 1.6 0 - 4 % [facility] Basophils Percent Auto 0.7 0 - 2 % [facility] NRBC Pct Auto 0.0 0.0 - 0.2 /100WBC [facility] Neutrophils Absolute Auto 3.3 2.0 - 8.3 x10*3/uL [facility] Imm Gran Abs Auto 0.02 0.00 - 0.03 X10*3/uL [facility] Lymphocytes Absolute Auto 1.7 1.2 - 4.9 X10*3/uL [facility] Monocytes Absolute Auto 0.5 0.1 - 1.2 X10*3/uL [facility] Eosinophils Absolute Auto 0.1 0.0 - 0.4 X10*3/uL [facility] Basophils Absolute Auto 0.0 0.0 - 0.2 X10*3/uL [facility] NRBC Abs Auto 0.000 0.0 - 0.012 X10*3/uL [facility] Blood Venous blood specimen / Unknown 05/18/2025 2:11 PM EDT 05/18/2025 4:04 PM EDT us Vee Harris MD LAB BLOOD ORDERABLES Final Res ult [facility] [address] [place] [phone] documented in this encounter Visit Diagnoses Diagnosis Crohn's disease with complication, unspecified gastrointestinal tract location (CMS/HCC)- Primary Sexually transmitted infection documented in this encounter Additional Health Concerns Assessment Noted Time PHQ-9 Depression Total Score: 19 025 9:53 AM EDT documented as of this encounter Care Teams Marketing Intern Relationship Specialty Start Date End Date Leesa Rapp MD [address] [place] [address] PCP - General Family Medicine 10/15/19 Adam Hanson RN [address] [place] [address] Registered Nurse Family Medicine 04/26/25 Cathy Rucker 04/26/25 documented as of this encounter
[2025-05-18 16:10] LABS: MANUAL DIFF FLAG NO
[2025-05-18 16:24] LABS: Hematocrit 36.3 % (37.0-47.0); Hemoglobin 11.3 g/dl (12.0-16.0); Imm Gran Abs Auto 0.02 X10*3/uL (0.00-0.03); Imm Gran Pct Auto 0.4 % (0.0-0.4); Lymphocytes Absolute Auto 1.7 X10*3/uL (1.2-4.9); Mean Corpuscular HGB Conc 31.1 g/dl (31.0-35.0); Mean Corpuscular Hemoglobin 26.6 pg (27.0-33.0); Mean Corpuscular Volume 85.4 fL (80.0-98.0); NRBC Abs Auto 0.000 X10*3/uL (0.0-0.012); NRBC Pct Auto 0.0 /100WBC (0.0-0.2); Platelet Count 206 X10*3/uL (160-400); Red Blood Count 4.25 X10*6/uL (4.20-5.50); White Blood Count 5.7 X10*3/uL (4.8-10.8)
--- OUTSIDE RECORDS SUMMARY | 2025-05-18 16:48 | XMS_ITS | Encounter Summary ---
Author Organization [employer] Address [address] [facility] [address] [place] [address] Care Team Providers Care Stock Unloader Name Role Phone Leesa Rapp MD Primary Care Provide r Adam Hanson RN Unavailable [phone] Cathy Rucker Unavailable Encounter Details Date Type Department Care Team (Late st Contact Info) Description 11/28/2022 Abstract [facility] MED[facility]INE [address] [place] [address] Leesa Rapp MD [address] [place], [place] [phone] Social History Tobacco Use Types Packs/Day Years [...] as of this encounter Plan of Treatment Not on file documented as of this encounter Visit Diagnoses Not on filedocumented in this encounter Care Teams Stock Unloader Relationship Specialty Start Date End Date Leesa Rapp MD [address] [place] [address] PCP - General Family Medicine 10/15/19 Adam Hanson RN [address] [place] [address] Registered Nurse Family Medicine 04/26/25 Cathy Rucker 04/26/25 documented as of this encounter
--- OUTSIDE RECORDS SUMMARY | 2025-05-18 16:49 | XMS_ITS | Encounter Summary ---
Author Organization [employer] Address [address] [facility] [address] [place] [address] Care Team Providers Care Costume Design Teacher Name Role Phone Leesa Rapp MD Primary Care Provide r Adam Hanson RN Unavailable [phone] Cathy Rucker Unavailable Encounter Details Date Type Department Care Team (Latest Contact Info) Description 05/16/2025 Travel Social History Tobacco Use Types Packs/Day [...] documented as of this encounter Care Teams Costume Design Teacher Relationship Specialty Start Date End Date Leesa Rapp MD [address] [place] [id number] PCP - General Family Medicine 10/15/19 Adam Hanson RN [address] [place] [address] Registered Nurse Family Medicine 04/26/25 Cathy Rucker 04/26/25 documented as of this encounter
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
--- OUTSIDE RECORDS SUMMARY | 2025-05-18 16:49 | XMS_ITS ---
Author Organization [employer] Address 75 [facility] 7t [place] [address] Care Team Providers Care Powerplant Operator Name Role Phone Leesa Rapp MD Primary Care Provide r Adam Hanson RN Unavailable [phone] Cathy Rucker Unavailable [facility] Status:Outreach In Progress (Enrolling) Start date:04/26/2025 Enrollment reason:ADT Feed Overview ADT-admitted [facility] 04/23/25. Please outreach for enrollment. Please outreach facility. Case Team Name Relationship Phone Cathy Rucker(Responsible Staff) [phone] Continued Care and Services Coordination
--- OUTSIDE RECORDS SUMMARY | 2025-05-18 16:49 | XMS_ITS | Encounter Summary ---
Author Organization [employer] Address [address] [facility] 7t [place] [address] Care Team Providers Care Driller Hand Name Role Phone Leesa Rapp MD Primary Care Provide r Adam Hanson RN Unavailable [phone] Cathy Rucker Unavailable Reason for Visit * Reason Comments Med Refill Encounter Details Date Type Department Care Team (Late st Contact Info) Description 12/01/2024 Refill [facility] CHC MED & PEDS [address] [place], [place] [phone] Leesa Rapp MD [address] [place], [place] [phone] Anxiety Social History Tobacco Use Types Packs/Day [...] documented as of this encounter Care Teams Driller Hand Relationship Specialty Start Date End Date Leesa Rapp MD [address] [place] [address] PCP - General Family Medicine 10/15/19 Adam Hanson RN [address] [place] [phone] Registered Nurse Family Medicine 04/26/25 Cathy Rucker 04/26/25 documented as of this encounter
--- OUTSIDE RECORDS SUMMARY | 2025-05-18 16:49 | XMS_ITS | Encounter Summary ---
Author Organization [employer] Address 75 [facility] 7t [place] [address] Care Team Providers Care Carpenter Ship Name Role Phone Leesa Rapp MD Primary Care Provide r Adam Hanson RN Unavailable [phone] Cathy Rucker Unavailable Reason for Visit * Reason Comments Med Refill Encounter Details Date Type Department Care Team ([facility] st Contact Info) Description 05/09/2024 Refill [facility] MEDICINE [address] [place], [place] [phone] Leesa Rapp MD [address] [place], [place] [phone] Vitamin D deficiency; Healthcare maintenance; Anxiety Social [...] documented as of this encounter Care Teams Carpenter Ship Relationship Specialty Start Date End Date Leesa Rapp MD [address] [place] [address] PCP - General Family Medicine 10/15/19 Adam Hanson RN [address] [place] [address] Registered Nurse Family Medicine 04/26/25 Cathy Rucker 04/26/25 documented as of this encounter
--- OUTSIDE RECORDS SUMMARY | 2025-05-18 16:49 | XMS_ITS | Encounter Summary ---
Author Organization [employer] Address 75 [facility] 7t [place] [address] Care Team Providers Care Stock Raiser Name Role Phone Leesa Rapp MD Primary Care Provide r Adam Hanson RN Unavailable [phone] Cathy Rucker Unavailable Reason for Visit * Reason Onset Date Comments CHART PREP 05/13/2025 Encounter Details Date Type Department Care Team ([facility] st Contact Info) Description 05/13/2025 Telephone [facility] MEDICINE [address] [place] [address] Vee Harris MD [address] [place], [place] [phone] CHART PREP Social History Tobacco Use Types Packs/Day Years [...] encounter Miscellaneous Notes * Telephone Encounter - Carlee Anne [place] - 05/13/2025 3:36 PM EDT .Chart Prep Labs: done Images: done Referrals: appointment pendingREFERRAL FOR PT SENT ON 04/29/25 Vaccines due: Tdap and Zoster and HEP C Screenings: mammogram, STI screening, and LMP Overdue care gaps: Not applicable documented in this encounter Plan of Treatment Not on file documented as of this encounter Visit Diagnoses Not on filedocumented in this encounter Additional Health Concerns Assessment Noted Time PHQ-9 Depression Total Score: 19 025 9:53 AM EDT documented as of this encounter Care Teams Stock Raiser Relationship Specialty Start Date End Date Leesa Rapp MD [address] [place] [address] PCP - General Family Medicine 10/15/19 Adam Hanson RN [address] [place] [address] Registered Nurse Family Medicine 04/26/25 Cathy Rucker 04/26/25 documented as of this encounter
--- OUTSIDE RECORDS SUMMARY | 2025-05-18 16:49 | XMS_ITS | Encounter Summary ---
Author Organization [employer] Address 75 [facility] 7t [place] [address] Care Team Providers Care Residence Director Name Role Phone Leesa Rapp MD Primary Care Provide r Adam Hanson RN Unavailable [phone] Cathy Rucker Unavailable Reason for Visit * Reason Comments Med Refill Encounter Details Date Type Department Care Team ([facility] st Contact Info) Description 04/29/2024 Refill [facility] MEDICINE 230 [place], [place] [phone] Leesa Rapp MD [address] [place], [place] [phone] Anxiety Social History Tobacco Use Types Packs/Day [...] documented as of this encounter Care Teams Residence Director Relationship Specialty Start Date End Date Leesa Rapp MD [address] [place] [address] PCP - General Family Medicine 10/15/19 Adam Hanson RN [address] [place] [address] Registered Nurse Family Medicine 04/26/25 Cathy Rucker 04/26/25 documented as of this encounter
--- OUTSIDE RECORDS SUMMARY | 2025-05-18 16:49 | XMS_ITS | Encounter Summary ---
Author Organization [employer] Address [address] [facility] 7t [place] [address] Care Team Providers Care Control Systems Developer Name Role Phone Leesa Rapp MD Primary Care Provide r Adam Hanson RN Unavailable [phone] Cathy Rucker Unavailable Reason for Visit * Reason Comments Med Refill Encounter Details Date Type Department Care Team ([facility] st Contact Info) Description 09/03/2023 Refill [facility] [address] [place], [place] [phone] Rohini Meade MD [address] [place], [place] [phone] Chronic nonintractable headache, unspecified headache type Social [...] type documented in this encounter Care Teams Control Systems Developer Relationship Specialty Start Date End Date Leesa Rapp MD [address] [place] [address] PCP - General Family Medicine 10/15/19 Adam Hanson RN [address] [place] [address] Registered Nurse Family Medicine 04/26/25 Cathy Rucker 04/26/25 documented as of this encounter
--- OUTSIDE RECORDS SUMMARY | 2025-05-18 16:49 | XMS_ITS | Encounter Summary ---
Author Organization [employer] Address 75 [facility] 7t [place] [address] Care Team Providers Care Pbx Manager Name Role Phone Leesa Rapp MD Primary Care Provide r Adam Hanson RN Unavailable [phone] Cathy Rucker Unavailable Reason for Visit * Reason Comments Med Refill Encounter Details Date Type Department Care Team (Late st Contact Info) Description 01/31/2023 Refill [facility] CHC MED & PEDS [address] [place], [place] [phone] Christy Stockton DO [address] [place], [place] [phone] Anxiety Social History Tobacco Use Types Packs/Day [...] unspecified documented in this encounter Care Teams Pbx Manager Relationship Specialty Start Date End Date Leesa Rapp MD [address] [place] [address] PCP - General Family Medicine 10/15/19 Adam Hanson RN [address] [place] [address] DANUTA Daniel [address] Registered Nurse Family Medicine 04/26/25 Cathy Rucker 04/26/25 documented as of this encounter
--- OUTSIDE RECORDS SUMMARY | 2025-05-18 16:49 | XMS_ITS | Encounter Summary ---
Author Organization [employer] Address 75 [facility] 7t [place] [address] Care Team Providers Care Dry Transfer Man Name Role Phone Leesa Rapp MD Primary Care Provide r Adam Hanson RN Unavailable [phone] Cathy Rucker Unavailable Encounter Details Date Type Department Care Team (Late st Contact Info) Description 09/04/2022 Orders Only [facility] MEDICINE [address] [place] [address] Alayna Delcid LPN Social History Tobacco Use [...] on filedocumented in this encounter Care Teams Dry Transfer Man Relationship Specialty Start Date End Date Leesa Rapp MD [address] [place] [address] PCP - General Family Medicine 10/15/19 Adam Hanson, RN [address] [place] [address] Registered Nurse Family Medicine 04/26/25 Cathy Rucker 04/26/25 documented as of this encounter
--- OUTSIDE RECORDS SUMMARY | 2025-05-18 16:49 | XMS_ITS | Encounter Summary ---
Author Organization [employer] Address [address] [facility] 7t [place] [address] Care Team Providers Care Printing Film Stripper Name Role Phone Leesa Rapp MD Primary Care Provide r Adam Hanson RN Unavailable [phone] Cathy Rucker Unavailable Encounter Details Date Type Department Care Team ([facility] st Contact Info) Description 10/30/2022 Orders Only [facility] CHC MED & PEDS [address] [place], [place] [phone] Christy Kaye LPN Social History Tobacco Use [...] on filedocumented in this encounter Care Teams Printing Film Stripper Relationship Specialty Start Date End Date Leesa Rapp MD [address] [place], [place] [phone] PCP - General Family Medicine 10/15/19 Adam Hanson RN [address] [place] [address] Registered Nurse Family Medicine 04/26/25 Cathy Rucker 04/26/25 documented as of this encounter
--- OUTSIDE RECORDS SUMMARY | 2025-05-18 16:49 | XMS_ITS | Clinical Summary ---
Demographics Address [address] [place] [address] Mobile Phone Home Phone Preferred Language Bruneian; Castilian Marital Status /Civil Union Christian Affiliation Unknown Race Other Race Ethnic Group or Author Organization [facility] Address [address] [address] Phone Support Name Relationship Address Phone Judie Nunez Personal Relationship Unknown [phone] Minesh Munson Personal Relationship [address] [place] [address] Care Team Providers Care Dog Pound Attendant Name Role Phone Leesa Rapp MD Primary Care Provider Allergies Active Allergy [...] topic Medical Devices Not on file Insurance [facility] C3 ACO C3 ACO C3 ACO C3 ACO C3 ACO C3 ACO C[address] [place] [address] [place] [address] C3 ACO [facility] C3 ACO Care Teams Dog Pound Attendant Relationship Specialty Start Date End Date Leesa Rapp MD [address] [place] [address] PCP - General Internal Medicine 12/18/20 Additional Source Comments The information contained in this document represents components of the legal health record. It is not the complete legal health record.[facility]
--- OUTSIDE RECORDS SUMMARY | 2025-05-18 16:49 | XMS_ITS | Encounter Summary ---
Author Organization [employer] Address [address] [facility] 7t [place] [address] Care Team Providers Care Account Liaison Name Role Phone Leesa Rapp MD Primary Care Provide r Adam Hanson RN Unavailable [phone] Cathy Rucker Unavailable Encounter Details Date Type Department Care Team (Late st Contact Info) Description 05/02/2025 Orders Only [facility] [address] [place] [address] Leesa Rapp MD [address] [place], [place] [phone] Social History Tobacco Use Types Packs/Day Years [...] documented as of this encounter Care Teams Account Liaison Relationship Specialty Start Date End Date Leesa Rapp MD [address] [place] [address] PCP - General Family Medicine 10/15/19 Adam Hanson RN [address] [place] [id number] Registered Nurse Family Medicine 04/26/25 Cathy Rucker 04/26/25 documented as of this encounter
--- OUTSIDE RECORDS SUMMARY | 2025-05-18 16:49 | XMS_ITS ---
Author Organization [employer] Address [address] [facility] 7t [place] [address] Care Team Providers Care Facilities Plant Engineer Name Role Phone Leesa Rapp MD Primary Care Provide r Adam Hanson RN Unavailable [phone] Cathy Rucker Unavailable CM Complex Status:Outreach In Progress (Enrolling) Start date:04/26/2025 Enrollment reason:ADT Feed Overview ADT-admitted [facility] 04/23/25 Case Team Name Relationship Phone Adam Hanson RN(Responsible Staff) Registered Nurse [phone] Continued Care and Services Coordination
--- OUTSIDE RECORDS SUMMARY | 2025-05-18 16:49 | XMS_ITS | Encounter Summary ---
Author Organization [employer] Address [address] [facility] 7t [place] [address] Care Team Providers Care Director Of Science Name Role Phone Leesa Rapp MD Primary Care Provide r Adam Hanson RN Unavailable Cathy Rucker Unavailable Reason for Visit * Reason Comments Med Refill Encounter Details Date Type Department Care Team (Late st Contact Info) Description 12/10/[address] [facility] PEDS [address] [place], [place] [phone] Leesa Rapp MD [address] [place], [place] [phone] Anxiety Social History Tobacco Use Types Packs/Day [...] documented as of this encounter Care Teams Director Of Science Relationship Specialty Start Date End Date Leesa Rapp MD [address] [place] [address] PCP - General Family Medicine 10/15/19 Adam Hanson RN [address] [place] [phone] Registered Nurse Family Medicine 04/26/25 Cathy Rucker 04/26/25 documented as of this encounter
--- OUTSIDE RECORDS SUMMARY | 2025-05-18 16:49 | XMS_ITS | Encounter Summary ---
Author Organization [facility] [employer] Address [address] [facility] 7t [place] [address] Care Team Providers Care Staff Nurse Midwife Name Role Phone Leesa Rapp MD Primary Care Provide r Adam Hanson RN Unavailable [phone] Cathy Rucker Unavailable Reason for Visit * Reason Comments Med Refill Encounter Details Date Type Department Care Team (Late st Contact Info) Description 12/31/[address] [facility] MED[facility] [address] [place], [place] [phone] Vee Harris MD [address] [place], [place] [phone] Moderate persistent asthma without complication Social History [...] complication documented in this encounter Care Teams Staff Nurse Midwife Relationship Specialty Start Date End Date Leesa Rapp MD [address] [place] [address] PCP - General Family Medicine 10/15/19 Adam Hanson RN [address] [place] [address] Registered Nurse Family Medicine 04/26/25 Cathy Rucker 04/26/25 documented as of this encounter
--- OUTSIDE RECORDS SUMMARY | 2025-05-18 16:49 | XMS_ITS | Clinical Summary ---
Author Organization [facility] it[facility] Address [address] [place] [address] Care Team Providers Care Grocery Team Member Name Role Phone Macy Washburn NP Primary Care Provider Social History Tobacco Use Types Packs/Day Years [...] Screening 06/19/2024 Depression Screening 08/25/2024 COVID-19 Vaccine ( - 2023-2 5 season) 2025 Influenza Vaccine (#1) 2025 RSV Immunization Adult Patie nts (1 - 1-dose 75+ series) 2045 HIB Vaccines Aged Out No longer eligi [...] age to complete this topic Care Teams Grocery Team Member Relationship Specialty Start Date End Date Macy Washburn NP [address] [place] [address] [phone] PCP - General 03/12/05
--- OUTSIDE RECORDS SUMMARY | 2025-05-18 16:49 | XMS_ITS | Encounter Summary ---
Author Organization [employer] Address [address] [facility] [address] [place] [address] Care Team Providers Care Speech Language Pathologist Name Role Phone Leesa Rapp MD Primary Care Provide r Adam Hanson RN Unavailable [phone] Cathy Rucker Unavailable Reason for Visit * Reason Comments Med Refill Encounter Details Date Type Department Care Team (Late st Contact Info) Description 04/28/2023 Refill [facility] [address] [place], [place] [phone] Christy Stockton DO [address] [place], [place] [phone] Healthcare maintenance Social History Tobacco Use Types [...] maintenance documented in this encounter Care Teams Speech Language Pathologist Relationship Specialty Start Date End Date Leesa Rapp MD [address] [place] [id number] PCP - General Family Medicine 10/15/19 Adam Hanson RN [address] [place] [phone] Registered Nurse Family Medicine 04/26/25 Cathy Rucker 04/26/25 documented as of this encounter
[2025-05-19 04:43] LABS: HIV Num 1 0.04 S/CO (0.00-0.99); ~HepC Num1 0.11 S/CO (0.00-0.79); ~Hepatitis C Antibody Nonreactive (Nonreactive)
== END 2025-05-18 14:07 | disposition home or self-care (01) ==
LOC: HO.HHCL 14:06
PROVIDERS: PCP Internal Medicine; Visit Provider General Practice
DX: A64 Unspecified sexually transmitted disease (principal); K50.919 Crohn's disease, unspecified, with unspecified complications; Z11.4 Encounter for screening for human immunodeficiency virus [HIV]; Z01.84 Encounter for antibody response examination
CPT/HCPCS: 36415; 85025; 85652; 86140; 86592; 86803; 87389

== ENCOUNTER 2025-06-09 09:06 | Outpatient (AMB) | payer MEDICAID, SELFPAY ==
--- NOTE | 2025-06-09 09:09 | MHC.OFFVIS ---
Vital Signs 06/09/25 09:15 Height 5 ft 3 in Weight 160 lb BMI 28.3 BP 113/64 Blood Pressure Location Lt brachial Position Sitting Pulse 55 Intake Visit Reasons: 4 mo f/u Intake Note: Patient follow up for constipation and from hospital follow up/abdominal pain. Patient cc: N/V on and off, abdominal pain and constipation with bloody stool. Denies any other GI issues for today visit. Teletypewriter Installer Required: No Accompanied by: Self / Same As Patient Allergies aspirin (ASA) Allergy (Intermediate, Verified 06/09/25 09:09) RASH azathioprine (From IMURAN) Allergy (Intermediate, Verified 06/09/25 09:09) PANCREATIC INFLAMMATION ibuprofen (IBUPROFEN) Allergy (Intermediate, Verified 06/09/25 09:09) TOLD NOT TO TAKE levofloxacin (From LEVAQUIN) Allergy (Mild, Verified 06/09/25 09:09) YEAST INFECTIONS Medication List - Last Reconciled 06/09/25 by Libby Palafox MD acetaminophen (Tylenol) 650 mg PO Q4H PRN albuterol sulfate 90 mcg/actuation 2 puffs inhalation Q4H PRN amlodipine 2.5 mg PO DAILY PRN apixaban (Eliquis) 2.5 mg PO BID budesonide-formoterol 160-4.5 mcg/actuation (Symbicort) 2 puffs PO BID buspirone 5 mg PO DAILY calcium carbonate-vitamin D3 600 mg-10 mcg (400 unit) 1 tab PO BID carboxymethylcellulose sodium 1% 1 drp ophthalmic (eye) BID PRN cholecalciferol (vitamin D3) (Vitamin D3) 50 mcg PO DAILY cyclobenzaprine 10 mg PO TID PRN diphenhydramine HCl (Banophen) 25 mg PO Q6H PRN docusate sodium 1 cap PO BID PRN hydroxyzine HCl 10 mg PO TID PRN lactulose 20 grams PO DAILY PRN melatonin 10 mg PO BEDTIME methotrexate sodium 25 mg PO FR@0900 montelukast 1 tab PO BEDTIME multivitamin 1 tab PO DAILY ondansetron 8 mg PO Q8H PRN oxybutynin chloride ER 15 mg PO DAILY 30 days pantoprazole (Protonix) 40 mg PO DAILY 60 days risperidone 1 mg PO BID sertraline (Zoloft) 25 mg PO DAILY tofacitinib (Xeljanz) 10 mg PO BID topiramate 100 mg PO BID ustekinumab (Stelara) 90 mg subcut Q4W zolpidem 5 mg PO BEDTIME HPI HPI 4 mo f/u: Details: GI FU visit for this 54-year-old female for FU of Crohn's disease. Next Stelara infusion scheduled on 02/17/25 Pt is on chronic anticoagulation with Eliquis because of history of pulmonary embolism. CHRONIC ILLNESSES:?RA, GERD, asthma, sleep apnea, iron def anemia, anxiety and depression? ? ? TODAY'S VISIT:? Patient complains of N/V on and off, abdominal pain and constipation with bloody stool. Pt complains of abdominal pain and constipation. Can have 10 BMs a day - usually small and associated with straining Notes BRB with the stool and on the toilet paper. Also complains of feeling bloated. PAST VISITS: Notes improvement in abdominal pain and bowel movements since she started taking Tofacitinib (Xeljanz) 10 mg PO twice daily Notes lower abd pain when stool is passing through the lower colon Has 12 BMs a day consisting of formed stool One episode of nocturnal BM - if she eats something after 4 pm. Intermittent straining with multiple small BMs Takes Lactulose every few days Continues to have abdominal pain and mild constipation. Having upto 8 small formed BMs a day Finished Prednisone last week and requesting a refill Also patient is worry about a cancer dx class 1/nurse from OR asked her about the cancer ??? Patient wanted to see a color weigher. Pt feels very tired all the time for the past 2-3 weeks and feels worse this week EGD and colon results were reviewed with the patient Complains of constipation - has 15 or more BMs a day and stool is hard. Notes abdominal pain and cramps and has to go to the bathroom Abd pain is a little better 10 min after a BM. Has to go back to the bathroom again after 10-15 min PAST VISITS: Feeling better and denies abdominal pain, diarrhea or constipation Abdominal pain was likely due to abd wall seroma - now resolved Patient cc: [facility] center abdominal discomfort, and she denies any other GI issues. Pt is accompanied by her daughter, Madelin who interpreted.? Notes improvement in abdominal pain. Feels everything is controlled right now?? Doing OK at present. Pt reports having a normal BM 2 or more times a day. Initially had diarrhea. Notes intermittent abd discomfort due to the seroma Scheduled to see surgery at [facility] Taking Miralax once a day and laculose once a day with good evacuation and denies feeling backed up. Appetite has improved after she took prednisone. Daughter is requesting referral to the [employer] to help with diet. Urgent FU appt scheduled after recent hospitalization from 02/10 to 02/12/24: Hospital course The patient was admitted for treatment of Acute obstipation and stercoral colitis related to opioid use as CT abdomen/pelvis consistent with constipation with a large amount of fecal material present in the colon rectum and fecal material with mildly obstructive effect. as she was manually disimpacted in ED and started on Miralax, Enema and Lactulose with good response as she moved her bowels overnight and repeated KUB showed interval resolution of the constipation. Seen by GI who recommended to increase Miralax and Start LActulose on discharge with a plan to follow as outpatient. The patient had SIRS with leukocytosis likely related to inflammation and chronic steroid use. Tachycardia r/t pain and anxiety. lactic acidosis from dehydration not due to sepsis. No signs of infection. To follow with GI as outpatient. Discharge plan Start Lactulose once daily Increase Miralax to twice daily follow with dr Palafox as outpatient ?? ? Patient cc: after hernia surgery she is been with a lot of abdominal pain on and off, today she is dizzy and her BP is low. Patient said everything is okay and no GI issues today Complains of mid abdominal/periumblical pain x last week Pain is intense 9/10 in intensity Seen in the ER at [facility] and prescribed oxycodone Does not eat when she has pain - does not feel like eating. Complains of constipation - has a BM every 1-2 days. Takes prune juice which helps. Takes docusate twice a day for constipation. Denies black stools or rectal bleeding. PAST VISITS: Had ileostomy reversal 2 months ago. Surgery went well. Has a BM 2-3 times a day, has constipation on some days and does not go on some days Feeling regular Has an appt with colorectal surgeon at [facility] on 10/24/22. Pt states, the surgeon will discuss reversal of colostomy. Last Stelara injection was on Sep 25, 2022 and next injection scheduled on 10/23/22. Pt denies abdominal pain and reports a good appetite Pt is accompanied by her daughter, Aissatou. EGD results were reviewed with the patient. Denies abdominal pain or rectal bleeding. Comes to short stay for her Stelara injection - last injection 01/31/22. Next injection scheduled on 02/28/22 at 9:30 am. Not taking MTX - prescription was stopped without anyone telling the pt - prescription renewed. Has been feeling better since discharge from the hospital 10 days ago - I have abdominal pain. Sometimes when I swallow the food gets stuck - symptoms associated with solid food. Its painful to swallow. Dysphagia episodes are frequent. Food goes down with water and is very painful. Has 6-7 BMs a day. On prednisone taper at 30 mg daily and will decrease to 20 mg daily in 2 days. IBD Summary: ? Year of diagnosis: Crohn's disease diagnosed in [address] scan. ? Disease Extent: Colon ? Past treatments: Azathioprine caused pancreatitis, ? She was initially treated with Remicade which did not work and she was switched to Humira. ? Treated with Entyvio for a few months which was stopped due to side effects. ? In 09/2016, she was treated with Stelara every 8 weeks which worked well for her. ? She has been treated with Prednisone intermittently. ? Previous Endoscopic Evaluations: 01/18/20 COLONOSCOPY SHOWED: One small hyperplastic rectal polyp removed. Patchy erythema throughout the colon - surveillance biopsies were obtained. Focal area of ulcerations with a tight stricture at 18 to 20 cms and unable to pass the colonoscope through the stricture. Stricture was dilated with a 12mm (26 F) CRE balloon and colonoscope was then advanced into the colon. Patchy erythema with focal ulcers in the distal rectum. Inflammation in the recto-sigmoid significantly improved from last year - biopsies were obtained for histology. EGD and colonoscopy on 08/20/2016. ? EGD showed diffuse whittish plaques in the esophagus and diffuse erythema of the mucosa in the cardia. ? Biopsies were obtained. ? Colonoscopy showed normal mucosa in the right colon and patchy erythema and erosions in the left colon. Diffuse erythema and erosions were seen involving most of the rectum. ? Past Surgeries: She underwent Colon surgery (? removal of sigmoid colon) with colostomy at [facility] in 2010. She had reversal of colostomy in Dec, 2011. She developed a peristomal hernia. [place] [facility] [place] and requesting an appointment. Increased MTX to 25 mg (10 tablets) from 5 or 6 tablets daily in?March LABS IN [facility]:04/28/20 Reviewed H&H of 11.2 and 36.7, CHEM PANEL AND LFTS. ? Improvement in LFTs with AST of 32 (decreased from 93) and ALT of 70 (decreased from 190) , alkaline phosphatase 97, FERRITIN 40 ? CRP 2.20 (increased from 0.71 on 03/24/20) ? 08/12 STOOL CALPROTECTIN WAS 714 (DECREASED FROM > 2000 IN 12/11) 01/11 T spot was negative. ? IMAGING STUDIES: 09/08/[address] SCAN SHOWED: Narrowing of the segment of the proximal sigmoid colon with wall enhancement and thickening is noted which is a chronic finding as seen on multiple previous CT scans; however, possibility of mild increased wall thickening and enhancement in the region cannot be completely excluded. Given the dilatation of the colon proximal to this level on current examination, possibility of at least partial obstruction related to the proximal sigmoid colon stricture is suspected. The findings are most probably related to patient's known inflammatory bowel disease; however, again possibility of neoplastic process here cannot be completely excluded. 03/[address] SCAN SHOWED:? There is a long segment of colitis from the mid transverse colon ? through the distal rectum sigmoid consistent with history of Crohn's ? disease. There has been progression of disease since prior exam of 12/16/2019. ENDOSCOPIC STUDIES:?09/28/21 EGD SHOWED: ESOPHAGUS: GE junction at 36 cms.? Focal esophagitis with a 1 cms ulcer at GEJ. No stricture or ring noted.? Scattered white exudates in the proximal and mid esophagus suggestive of esophageal candidiasis - biopsies obtained to check for Karo/EOE. STOMACH: Gastritis - biopsied to check for H Pylori Plan:? Start Fluconazole for esophageal candidiasis - likely source of dysphagia and odynophagia. Resume Eliquis tonight. 09/13/21 FLEXIBLE SIGMOIDOSCOPY SHOWED: Flexible Sigmoidoscopy Findings: Focal tight stricture from 15 to 18 cms with ulcerations. Stricture was dilated with a 10, 11 and 12 mm (36 F) CRE balloon x 60 sec at each level. Biopsies were obtained from the stricture and colon at 30 and 10 cms (proximal and distal to the stricture) Plan:? Resume full liquid diet tonight and advance diet as tolerated. OK to resume Eliquis in the am. Switch to PO prednisone at 40 mg in the am and taper by 10 mg every 5 days over 3 weeks. BIOPSIES SHOWED: A.? Colon, sigmoid at 30 cm, biopsy:? Focal chronic colitis without activity; negative for dysplasia and carcinoma. B.? Colon, sigmoid at 18 cm, stricture, biopsy:? Chronic colitis with mild to severe activity and active ulcer with granulation tissue, superficial fragments; negative for dysplasia and carcinoma. C.? Colon, sigmoid at 10 cm, biopsy:? Chronic colitis without activity; negative for dysplasia and carcinoma. Colonoscopy in 01/18/20 showed patchy erythema throughout the colon - surveillance biopsies were obtained. Focal area of ulcerations with a tight stricture at 18 to 20 cms and unable to pass the colonoscope through the stricture. Stricture was dilated with a 12mm (26 F) CRE balloon and colonoscope was then advanced into the colon. Patchy erythema with focal ulcers in the distal rectum. Inflammation in the recto-sigmoid significantly improved from last year - severe left sided colitis with minimal inflammation in the remaining colon. were negative for CMV PFSH Medical History Crohn disease Crohn's colitis Urge incontinence Stricture of colon Normocytic anemia Anxiety Sleep apnea Asthma GERD (gastroesophageal reflux disease) Pulmonary embolism Crohn's disease PTSD (post-traumatic stress disorder) Recurrent major depression-severe Hyperlipidemia Hemorrhagic cyst of ovary Kidney stones Depression Iron deficiency anemia Rheumatoid arthritis Migraine Cancer HTN (hypertension) Surgical History History of esophagogastroduodenoscopy (EGD) History of colon resection History of colon resection Hx of dilation and curettage Hx of cystoscopy Hx of cystoscopy Hx of colonoscopy (~10/2018) Hx of endoscopy Social History Household Members: None Housing: Apartment Are you a primary skin care specialist to a significant other at home: No Do you presently have visiting nurse or other home services: No ([employer] daily) Alcohol intake: never Patient Tobacco Use Status: Former Tobacco user Tobacco use type: Cigarette Cigarettes Per Day: 1 Years Smoked: 10 e-Cigarette/Vaping Use: Former Use Second Hand Smoke Exposure: No Substance Use Type: Marijuana Advance Directives Date on File: 02/13/24 service: No Current occupational status: unemployed and disabled Sexual orientation: Straight/Heterosexual Review of Systems Const All systems reviewed & are unremarkable except as noted in HPI and below Physical Exam Vital Signs: Last Vital Signs Pulse 55 06/09/25 09:15 BP 113/64 06/09/25 09:15 BMI result Body Mass Index 28.3 Const General: healthy appearing and no acute distress Nutritional Appearance: average body habitus Orientation/consciousness: patient oriented x3 Limitations: no limitations HEENT Head: Yes normal to inspection Ears: hearing grossly normal bilaterally Eyes Sclerae: sclerae normal Pupils: Equal, round and reactive pupils present Neck Neck: Yes normal visual inspection Chest Chest palpation & inspection: normal inspection of the chest Resp Effort & Inspection: normal respiratory effort Auscultation: clear to auscultation bilaterally Cardio Palpation: normal PMI Rate: regular rate Rhythm: regular rhythm Heart sounds: S1 normal heart sound present, S2 normal heart sound present and no murmurs GI Palpation (GI): Soft to palpation, nontender and No hepatosplenomegaly present Auscultation: normal bowel sounds Rectal Exam - Female: deferred Skin General skin exam: no rashes or lesions noted Neuro General: patient oriented x3, gait normal and moves all extremities Cranial nerves: Yes Equal, round and reactive pupils present Psych Appearance: grossly normal Mental Status: mental status grossly normal Assessment & Plan Assessment & Plan (1) GERD (gastroesophageal reflux disease): Code(s): K21.9 - Gastro-esophageal reflux disease without esophagitis Category: Medical (2) Chronic constipation: Code(s): K59.09 - Other constipation Category: Medical (3) Crohn's disease: Code(s): K50.90 - Crohn's disease, unspecified, without complications Category: Medical Plan 54 year old Indonesian-speaking (able to speak some Albanian) female with RA, GERD, asthma, sleep apnea, iron def anemia, intermittent compliance with follow up appointments, anxiety, depression with some memory loss with Crohn's disease involving the left colon (and suspected jejunal involvement). Pt was diagnosed with Crohn's colitis 24 yrs ago and is status post sigmoid colectomy with colostomy in 2010, reversal of colostomy in 2011. She has failed treatment with multiple medications in the past due to lack of efficacy or side effects including Remicade, Humira, Cimzia, Entyvio, azathioprine caused pancreatitis. She has been on Stelara every 8 weeks which had worked well for her in the past. Dose of Stelara was increased to every 4 weeks 2 years ago due to breakthrough symptoms and low trough levels. She has been treated with Prednisone intermittently for CD flares. Patient was seen at [facility] IBD clinic for a 2nd opinion regarding treatment options and addition of methotrexate was advised. Patient was started on methotrexate 25 mg intramuscularly every week on 04/13/19 in the Oncology clinic. She was switched to p.o. methotrexate 50 mg once a week in Sep, 2019 - now taking 25 mg every week. She is also on budesonide 9 mg once daily. She continues to have intermittent flares requiring IV steroids. Pt was [place] [facility] [place] and dose of MTX was increased to 25 mg PO (10 tab) every week from 5 or 6 tablets daily in March 2020. 09/13/21 Flexible sigmoidoscopy showed a?focal tight stricture from 15 to 18 cms with ulcerations. Stricture was dilated to 12 mm (36 F) with a CRE balloon. Biopsies obtained from the stricture showed chronic colitis with mild to severe activity and active ulcer with granulation tissue - negative for dysplasia and carcinoma? Biopsies obtained from 30 and 10 cms (proximal and distal to the stricture) showed focal chronic colitis without activity. 05/17/22 Pt had Robot assisted laparoscopic lysis of adhesions with resection of colorectal anastomosis and new colorectal anastomosis with loop ileostomy and left ureterolysis and mobilization of the splenic flexure by Dr Mcdonough, colorectal surgeon, [facility].? No dysplasia noted on histology. She has a FU appt to schedule ileostomy reversal after gastrograffin enema. 02/20/23 Pt will be scheduled for a surveillance colonoscopy - scheduled on 08/11/23. Advised to hold Eliquis for 3 days before colonoscopy appt (will obtain clearance from Dr Blake) Miralax once a day for constipation. Labs in March 2023. 05/29/23 mid abdominal/periumblical pain x last week Pain is intense 9/10 in intensity Seen in the ER at [facility] and prescribed oxycodone 02/20/24 Doing OK at present. Pt reports having a normal BM 2 or more times a day. Initially had diarrhea. Notes intermittent abd discomfort due to the seroma Scheduled to see surgery at [facility] Taking Miralax once a day and laculose once a day with good evacuation and denies feeling backed up. Appetite has improved after she took prednisone. Abdominal pain is likely related to seroma. Pt advised to check a fecal calprotectin to rule out active Crohn's disease Referral sent to the dietitian to discuss diet for Crohn's disease at request of patient and her daughter. 05/31/24 Feeling better and denies abdominal pain, diarrhea or constipation Abdominal pain was likely due to abd wall seroma - now resolved Advised to schedule an EGD (FU of esophagitis) and Colon (FU of Crohn's disease) 11/08/24 EGD AND COLONOSCOPY SHOWED: Endoscopy Findings: ESOPHAGUS: Normal STOMACH: Moderate gastric antral erythema DUODENUM: Normal Colonoscopy Findings: No polyps were detected Friable mucosa with patchy erythema and scattered aphthoid ulcers with active colitis from 0 to 30 cms and mild colitis in the rest of the colon - multiple biopsies were obtained. Moderate diverticulosis seen in the sigmoid colon Moderate hemorrhoids on retroflexed exam. Plan: Repeat Colonoscopy in 2 years for Crohn's disease surveillance. BIOPSIES SHOWED: A. Gastric antrum, biopsy: Gastric antral mucosa with minimal chronic gastritis with few focal neutrophils; no granuloma seen; negative for intestinal metaplasia and dysplasia. B. Colon, cecum, biopsy: Chronic colitis with mild activity and focal mucosal microgranulomas; negative for dysplasia. C. Colon, ascending, biopsy: Focal chronic colitis with minimal activity, mucosal microgranulomas, and granulomas in submucosal lymphoid aggregate; negative for dysplasia. D. Colon, transverse, biopsy: Focal chronic colitis with mild activity; no granulomas or dysplasia. E. Colon, sigmoid, biopsy: Focal chronic colitis with moderate activity and surface erosion; no granulomas or dysplasia. Comment: (A): Immunostain for H. pylori was negative. (C): AFB and GMS stains - negative Patient was placed on the colonoscopy recall list for repeat colon in 2 years 11/23/24 EGD and colon results were reviewed with the patient Complains of constipation - has 15 or more BMs a day and stool is hard. Notes abdominal pain and cramps and has to go to the bathroom Abd pain is a little better 10 min after a BM. Pt advised to increase lactulose to 30 ml twice daily and start Prednisone taper 12/2024 Tofacitinib (Xeljanz) 10 mg PO twice daily was added. Pt reports compliance with Stelara injection, MTX and budesonide. She noted that she starts feeling bad 2 weeks after the Stelara injection. 06/09/25 Pt complains of constipation Advised to increase Lactulose to twice daily Start Linzess 145 mcg daily Schedule a Flex Sig in 2-4 weeks to FU on UC FU in 6 weeks Orders: Orders Calprotectin, Fecal Today K50.90 - Crohn's disease, unspecified, without complications Referrals GI Procedure Notification K50.90 - Crohn's disease, unspecified, without complications Medications: New linaclotide (Linzess) 145 mcg PO DAILY 30 caps 3RF 30 days Changed From lactulose 20 grams PO DAILY PRN Constipation K59.09 - Other constipation To lactulose 20 grams (30 mL) PO BID 1,800 mL 3RF Constipation 30 days K59.09 - Other constipation Coding Level of Care Code Est Pt Level 4 (39446) Diagnoses GERD (gastroesophageal reflux disease) K21.9 Chronic constipation K59.09 Crohn's disease K50.90 Time Spent (min) 18
[2025-06-09 09:15] VITALS: BP 113/64; PULSE 55; BMI 28.3
--- OUTSIDE RECORDS SUMMARY | 2025-06-09 10:12 | XMS_ITS | Encounter Summary ---
Author Organization [employer] Address [address] [place] [address] Care Team Providers Care Operational Intelligence Analyst Name Role Phone Leesa Rapp MD Primary Care Provide r Adam Hanson RN Unavailable [phone] Cathy Rucker Unavailable Encounter Details Date Type Department Care Team (Late st Contact Info) Description 11/28/2022 Abstract [facility] MEDICINE [address] [place] [address] Leesa Rapp MD [address] [place], [place] [phone] Social History Tobacco Use Types Packs/Day Years [...] on filedocumented in this encounter Care Teams Operational Intelligence Analyst Relationship Specialty Start Date End Date Leesa Rapp MD [address] [place] [address] PCP - General Family Medicine 10/15/19 Adam Hanson, ANTONIO [address] [place] [address] Registered Nurse Family Medicine 04/26/25 Cathy Rucker 04/26/25 Chaparrita Monsalve International BankerDriftman 05/26/25 documented as of this encounter
--- OUTSIDE RECORDS SUMMARY | 2025-06-09 10:13 | XMS_ITS | Encounter Summary ---
Author Organization [employer] Address [address] [place] [address] Care Team Providers Care Advertising Assistant Name Role Phone Leesa Rapp MD Primary Care Provide r Adam Hanson RN Unavailable [phone] Cathy Rucker Unavailable Reason for Visit * Reason Comments Med Refill Encounter Details Date Type Department Care Team ([facility] st Contact Info) Description 05/09/2024 Refill [facility] MED[facility]INE [address] [place], [place] [phone] Leesa Rapp MD [address] [place], [place] [phone] Vitamin D deficiency; Healthcare maintenance; Anxiety Social [...] documented as of this encounter Care Teams Advertising Assistant Relationship Specialty Start Date End Date Leesa Rapp MD [address] [place] [address] PCP - General Family Medicine 10/15/19 Adam Hanson RN [address] [place] [address] Registered Nurse Family Medicine 04/26/25 Cathy Rucker 04/26/25 Chaparrita Monsalve Line Rider[employer]ary Engraver 05/26/25 documented as of this encounter
--- OUTSIDE RECORDS SUMMARY | 2025-06-09 10:13 | XMS_ITS | Encounter Summary ---
Author Organization [employer] Address [address] [facility] [address] [place] [address] Care Team Providers Care Informatics Physician Name Role Phone Leesa Rapp MD Primary Care Provide r Adam Hanson RN Unavailable [phone] Cathy Rucker Unavailable Reason for Visit * Reason Comments Med Refill Encounter Details Date Type Department Care Team (Late st Contact Info) Description 04/28/2023 Refill [facility] MEDICINE [address] [place], [place] [phone] Christy [place] DO [address] [place], [place] [phone] Healthcare maintenance Social History Tobacco Use Types [...] maintenance documented in this encounter Care Teams Informatics Physician Relationship Specialty Start Date End Date Leesa Rapp MD [address] [place] [id number] PCP - General Family Medicine 10/15/19 Adam Hanson, RN [address] [place] [id number] Registered Nurse Family Medicine 04/26/25 Cathy Rucker 04/26/25 Chaparrita Monsalve Metal Furnace OperatorSlasher Runner 05/26/25 documented as of this encounter
--- OUTSIDE RECORDS SUMMARY | 2025-06-09 10:13 | XMS_ITS | Encounter Summary ---
Author Organization [employer] Address [address] [facility] [address] [place] [address] Care Team Providers Care Residential Mental Health Worker Name Role Phone Leesa Rapp MD Primary Care Provide r Adam Hanson RN Unavailable [phone] Cathy Rucker Unavailable Reason for Visit * Reason Comments Med Refill Encounter Details Date Type Department Care Team (Late st Contact Info) Description 12/10/2024 Refill [facility]EDS [address] [place], [place] [phone] Leesa Rapp MD [address] [place], [place] [phone] Anxiety Social History Tobacco Use Types Packs/Day [...] documented as of this encounter Care Teams Residential Mental Health Worker Relationship Specialty Start Date End Date Leesa Rapp MD [address] [place] [address] PCP - General Family Medicine 10/15/19 Adam Hanson RN [address] [place] [phone] Registered Nurse Family Medicine 04/26/25 Cathy Rucker 04/26/25 Chaparrita Monsalve Risk Management ProfessionalRn Appeals 05/26/25 documented as of this encounter
--- OUTSIDE RECORDS SUMMARY | 2025-06-09 10:13 | XMS_ITS | Clinical Summary ---
Demographics Address [address] [place] [address] Mobile Phone Home Phone Preferred Language Armenian; Castilian Marital Status /Civil Union Judaism Affiliation Unknown Race Other Race Ethnic Group or Author Organization [facility] Address [address] [address] Phone Support Name Relationship Address Phone Judie Nunez Personal Relationship Unknown [phone] Minesh Munson Personal Relationship [address] [place] [address] Care Team Providers Care Dirt Contractor Name Role Phone Leesa Rapp MD Primary [...] FOBT 2015 SIGMOIDOSCOPY 2015 VIRTUAL COLONOSCOPY 2015 RSV VACCINE (1 - Risk 50-74 years 1-dose series) 2020 Adult Td,Tdap Booster 01/10/2021 01/10/2011, 003 ZOSTER [...] topic Medical Devices Not on file Insurance [facility] C3 ACO C3 ACO C3 ACO C3 ACO C3 ACO C3 ACO C3 ACO C[address] [place] [address] [place] [address] C3 ACO Care Teams Dirt Contractor Relationship Specialty Start Date End Date Leesa Rapp MD [address] [place] [id number] PCP - General Internal Medicine 12/18/20 Additional Source Comments The information contained in this document represents components of the legal health record. It is not the complete legal health record.[facility]
--- OUTSIDE RECORDS SUMMARY | 2025-06-09 10:13 | XMS_ITS ---
Author Organization [employer] Address [address] [facility] [address] [place] [address] Care Team Providers Care Seo Team Lead Name Role Phone Leesa Rapp MD Primary Care Provide r Adam Hanson RN Unavailable [phone] Cathy Rucker Unavailable CM Complex Status:Outreach In Progress (Enrolling) Start date:04/26/2025 Enrollment reason:ADT Feed Overview ADT-admitted [facility] 04/23/25 Case Team Name Relationship Phone Adam Hanson RN(Responsible Staff) Registered Nurse [phone] Continued Care and Services Coordination
--- OUTSIDE RECORDS SUMMARY | 2025-06-09 10:13 | XMS_ITS | Encounter Summary ---
Author Organization [employer] Address [address] [facility] [address] [place] [address] Care Team Providers Care Truck Driver Flatbed Name Role Phone Leesa Rapp MD Primary Care Provide r Adam Hanson RN Unavailable [phone] Cathy Rucker Unavailable Encounter Details Date Type Department Care Team (Late st Contact Info) Description 09/04/2022 Orders Only [facility] MEDICINE [address] [place] [address] Alayna Delcid LPN Social History Tobacco Use [...] on filedocumented in this encounter Care Teams Truck Driver Flatbed Relationship Specialty Start Date End Date Leesa Rapp MD [address] [place] [address] PCP - General Family Medicine 10/15/19 Adam Hanson, RN [address] [place] [phone] Registered Nurse Family Medicine 04/26/25 Cathy Rucker 04/26/25 Chaparrita Monsalve Printing And Stamping SupervisorHorticultural Therapist 05/26/25 documented as of this encounter
--- OUTSIDE RECORDS SUMMARY | 2025-06-09 10:13 | XMS_ITS | Clinical Summary ---
Author Organization [employer] Address [address] [facility] 7[address] [place] [address] Care Team Providers Care Ophthalmic Technician Apprentice Name Role Phone Leesa Rapp MD Primary Care Provide r Adam Hanson RN Unavailable [phone] Cathy Rucker Unavailable Allergies Active Allergy [...] times daily. 28.35 g 025 2025 Active Calcium Carb-Cholecalcife rol 600-10 MG-MCG tabletIndications [...] EVERY DAY 90 tablet 1 025 Active Eliquis 2.5 MG tablet Take 1 tablet by mouth 2 times daily. 025 Active sertraline (Zoloft) 25 MG tablet Take 1 tablet by mouth Once per day. Active hydrOXYzine HCl (Atarax) 10 MG tablet Take 1 tablet by mouth if needed in the morning, at noon, and at bedtime for anxiety. Active cyclobenzaprine (Flexeril) 10 MG tabletIndications :Acute [...] THE EVENING 60 tablet 2 025 Active topiramate (Topamax) 100 MG tabletIndications :Chronic nonintractable headache, unspecified headache type TAKE 1 TABLET BY MOUTH TWICE DAILY IN THE MORNING AND AT BEDTIME 60 tablet 2 025 Active pantoprazole (ProtoNix) 40 MG EC tablet Take 40 mg by mouth Once per day. 025 Active tofacitinib (Xeljanz) 10 MG tablet Take 1 tablet by mouth 2 times daily. 025 Active gabapentin (Neurontin) 100 MG capsuleIndication s:Anxiety TAKE 1 CAPSULE BY MOUTH TWICE DAILY 60 capsule 1 025 Active Multiple Vitamin (Multivitamin) tabletIndications :Healthcare maintenance TAKE 1 TABLET BY MOUTH EVERY MORNING 90 tablet 1 025 Active D3 Super Strength 50 MCG (2000 UT) capsuleIndication s:Vitamin D deficiency TAKE 1 CAPSULE BY MOUTH EVERY MORNING 90 capsule 1 025 Active Stelara injection 023 2024 Discontinued(M ed list cleanup (will not trigger notification to Pharmacy)) ciclopirox (Penlac) 8 % solutionIndicatio ns:Onycholysis Apply topically at bedtime. 6 mL 1 023 2024 Discontinued(M ed list cleanup (will not trigger notification to Pharmacy)) cholecalciferol (D3 Super Strength) 50 MCG (2000 UT) capsuleIndication s:Vitamin D deficiency TAKE 1 CAPSULE BY MOUTH EVERY MORNING 90 capsule 1 025 2024 Discontinued Multiple Vitamin (Multivitamin) tabletIndications :Healthcare maintenance TAKE 1 TABLET BY MOUTH EVERY MORNING 90 tablet 1 025 2024 Discontinued topiramate (Topamax) 100 MG tabletIndications :Chronic nonintractable headache, unspecified headache type TAKE 1 TABLET BY MOUTH TWICE DAILY IN THE MORNING AND AT BEDTIME 60 tablet 2 025 2024 Discontinued(R eorder (will not trigger notification to Pharmacy)) gabapentin (Neurontin) 100 MG capsuleIndication s:Anxiety TAKE 1 CAPSULE BY MOUTH TWICE DAILY 60 capsule 1 025 2024 Discontinued nystatin (Mycostatin) 386305 UNIT/ML suspensionIndicat ions:Thrush, oral Take 1 mL (100,000 Units) by mouth 4 times daily for 14 days. 56 mL 025 2024 Active Problems Problem Noted Date [...] with results Acute Crohn's disease, unspecified complication (CMS/HCC) 04/07/2025 Assessment & Plan (04/07/2025 5:12 PM [...] appointment Crohn's disease of rectum with complication (CMS /HCC) 12/08/2024 Assessment & Plan (12/08/2024 5:20 PM EDT): I will prescribe for patient short course of oxycodone for pain and Zofran for nausea I advised to follow-up with gastroenterology and do not miss the upcoming appointment for further management and treatment of her Crohn's Nausea 12/08/2024 Crohn's disease with complication (CMS/HCC) 10/24 Assessment & Plan (11/17/2024 1:59 PM EDT): [...] cancer screening 07/03/2023 Rash 05/26/2023 Colon stricture (CMS/HCC) 04/27/2023 Encounter for screening mamm ogram for [...] Mixed hyperlipidemia 05/07/2018 Headache 05/29/2015 Crohn disease ([facility]/HCC) 05/29/2015 Assessment & Plan (05/18/2025 10:35 AM [...] need for ongoing prednisone - we contacted [facility] while patient was here and they provided name of patient's previous second opinion in [place] (Dr Lencho Arreola at [facility]) and confirmed that Dr Palafox [...] Plan (08/12/2024 10:57 AM EST): Stable, 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 health counselor to avoid asthma triggers C/w same [...] done today Rheumatoid arthritis involving multiple joints ( [facility]) 05/29/2015 Assessment & Plan (04/27/2023 7:32 AM EDT): Does not have accounting clerks supervisor or painter tumbling barrel She asks about pain mgmt, but the majority of her pain is intra-abdominal I think pain mgmt would have little to offer her, and that focus should be on her her Crohn's activity Vitamin D deficiency 05/29/2015 Resolved Problems Problem Noted Date Diagnosed Date Resolved Date Pulmonary embolism 11/15/2022 3 Encounters Date Type Department Care Team Description 06/07/2025 Refill [facility] [address] [place] [address] Leesa Rapp MD Healthcare maintenance; Vitamin D deficiency 06/04/2025 Refill [facility] [address], [place] [phone] Leesa Rapp MD Anxiety 05/26/2025 Telephone [facility] [address], [place] [phone] Leesa Rapp MD Care Coordination (ICP Care Plan) 05/24/2025 Patient Outreach [facility] [address] [place] [address] Leesa Rapp MD Care Coordination (CM/CHW outreach) 05/23/2025 Results Follow-Up [facility] [address] [place], [place] [phone] Vee Harris MD Sed Rate by Modified Westergren, C-reactive Protein, CBC auto differential, Additional followed-up results: 3 05/16/2025 2:45 PM EDT Office Visit [address] [address] Vee Harris MD Crohn's disease with complication, unspecified gastrointestinal tract location (CMS/HCC) (Primary Dx); Sexually transmitted infection 05/16/2025 Travel 05/13/[address] [address] Vee Harris MD CHART PREP 05/12/[address] [address] Leesa Rapp MD Chronic nonintractable headache, unspecified headache type 05/09/2025 Patient Outreach [address] [address] Leesa Rapp MD Care Management (C3CM- initial assessment/ enrollment. lvm) 05/09/2025 Patient Outreach [address] [address] Leesa Rapp MD Care Coordination (CM Appt r/s) 05/07/[address] [address] Leesa Rapp MD Moderate persistent asthma without complication; Depression with anxiety 05/05/2025 Results Follow-Up [address] [address] Leesa Rapp MD XR Thoracic Spine 3 Views 05/04/2025 Patient Outreach [address] [address] Leesa Rapp MD Care Coordination (CM/CHW outreach) 05/02/2025 Patient Outreach [address] [address] Leesa Rapp MD Care Coordination (CM/CHW outreach) 05/02/2025 Results Follow-Up [address] [address] Leesa Rapp MD Bacterial Vaginosis Panel, POCT Urinalysis, Culture, Urine, Routine 05/02/2025 Orders Only [address] [address] Leesa Rapp MD 04/29/2025 2:45 PM EDT Office Visit [address] [address] Leesa Rapp MD Thrush, oral; Vaginal discharge 04/29/2025 Travel 04/28/2025 10:45 AM EDT Office Visit [address] [address] Leesa Rapp MD Neck pain (Primary Dx); Acute pain of left shoulder; Acute left-sided thoracic back pain; Acute left-sided low back pain without sciatica 04/28/2025 Travel 04/27/[address] [address] Leesa Rapp MD chart prep 04/27/2025 Patient Outreach [address] [address] Leesa Rapp MD Transition Of Care (Tcm) (HDF- scheduled and SDOH screening completed on 11/08/2024) 04/27/2025 Patient Outreach [address] [address] Leesa Rapp MD 04/26/2025 Patient Outreach [address] [address] Leesa Rapp MD Care Coordination (CM/CHW outreach) 04/26/2025 Patient Outreach [address] [address] Leesa Rapp MD Care Coordination (CHW chart review) 04/26/2025 Patient Outreach [address] [address] Leesa Rapp MD Care Management ([facility]- chart review) 04/26/2025 Patient Outreach [facility] [address] [place] [address] Leesa Rapp MD 04/23/2025 Orders Only [facility] External Provider, [facility] 04/19/2025 Patient Outreach [address] [address] Leesa Rapp MD Pre-visit Planning (SDOH screening completed on 11/08/2024) 04/07/2025 9:30 AM EDT Office Visit [address] [address] Leesa Rapp MD Acute Crohn's disease, unspecified complication (CMS/HCC) (Primary Dx) 04/07/2025 Travel 04/05/[address] [address] Leesa Rapp MD Chart Prep 03/21/2025 6:00 PM EDT Office Visit [facility] [address] [place] [address] Leo Calles MD Xerosis of skin (Primary Dx); Involuntary movements 03/21/2025 Travel 03/21/[address] [address] Leesa Rapp MD Nurse Triage 03/21/2025 Patient Outreach [address] [address] Leesa Rapp MD Transition Of Care (Tcm) (LVM) 03/11/2025 Refill [facility] [address] [place] [address] Leesa Rapp MD Anxiety from Last 3 Months Immunizations Immunization [...] Colonography 1970 FIT DNA/Cologuard 1970 FIT 1970 Sigmoidoscopy 1970 FOBT 12/15/2020 12/16/2019, 11/30/2019 DTaP/Tdap/Td Vaccines (2 - Td or Tdap) 01/10/2021 01/10/2011, 09/22/2002 Zoster Vaccines (2 of 2) 12/19/2021 10/24/2021 Mammogram 03/13/2024 03/13/2023, 0404/2021, 12/16/2018 COVID-19 Vaccine (1 - season) 2025 Influenza Vaccine (#1) 2025 [...] Pneumococcal Vaccine: 50+ Years Completed 02/20/2024, 10/13/2010 HIV Screening Completed 05/18/2025 Hepatitis C Screening Completed 05/18/2025 HIB Vaccines Aged Out No longer eligi [...] Procedure Name Priority Date/Time Associated Diagnosis Comments RPR (MONITOR) W/REFL TITER Routine 05/18/2025 2:11 PM EDT Sexually transmitted infection HEPATITIS C AB W/REFL TO HCV RNA, QN, PCR Routine 05/18/2025 2:11 PM EDT Sexually transmitted infection HIV 1/2 ANTIGEN/ANTIBODY, FOURTH GENERATION W/RFL Routine 05/18/2025 2:11 PM EDT Sexually transmitted infection CBC WITH AUTO DIFFERENTIAL Routine 05/18/2025 2:11 PM EDT Crohn's disease with complication, unspecified gastrointestinal tract location (CMS/HCC) C-REACTIVE PROTEIN Routine 05/18/2025 2: 11 PM EDT Crohn's disease with complication, unspecified gastrointestinal tract location (CMS/HCC) SED RATE BY MODIFIED WESTERGREN Routine 05/18/2025 2:11 PM EDT Crohn's disease with complication, unspecified gastrointestinal tract location (CMS/HCC) POCT URINALYSIS DIPSTICK Routine 04/29/2025 3:43 PM [...] Blood Count 5.7 4.8 - 10.8 X10*3/uL [facility] Red Blood Count 4.25 4.20 - 5.50 X10*6/uL [facility] Hemoglobin 11.3(L) 12.0 - 16.0 g/dl [facility] Hematocrit 36.3(L) 37.0 - 47.0 % [facility] Mean Corpuscular Volume 85.4 80.0 - 98.0 fL [facility] Mean Corpuscular Hemoglobin 26.6(L) 27.0 - 33.0 pg [facility] Mean Corpuscular HGB Conc 31.1 31.0 - 35.0 g/dl [facility] Red Cell Distribution Width 16.9(H) 11.0 - 16.0 % [facility] Platelet Count 206 160 - 400 X10*3/uL [facility] Mean Platelet Volume 12.8(H) 9.4 - 12.3 fL [facility] Neutrophils Percent Auto 58.8 45 - 73 % [facility] Imm Gran Pct Auto 0.4 0.0 - 0.4 % [facility] Lymphocytes Percent Auto 29.0 20 - 40 % [facility] Monocytes Percent Auto 9.5 2 - 11 % [facility] Eosinophils Percent Auto 1.6 0 - 4 % [facility] Basophils Percent Auto 0.7 0 - 2 % [facility] NRBC Pct Auto 0.0 0.0 - 0.2 /100WBC [facility] Neutrophils Absolute Auto 3.3 2.0 - 8.3 x10*3/uL [facility] Imm Gran Abs Auto 0.02 0.00 - 0.03 X10*3/uL [facility] Lymphocytes Absolute Auto 1.7 1.2 - 4.9 X10*3/uL [facility] Monocytes Absolute Auto 0.5 0.1 - 1.2 X10*3/uL [facility] Eosinophils Absolute Auto 0.1 0.0 - 0.4 X10*3/uL [facility] Basophils Absolute Auto 0.0 0.0 - 0.2 X10*3/uL [facility] NRBC Abs Auto 0.000 0.0 - 0.012 X10*3/uL [facility] Blood Venous blood specimen / Unknown 05/18/2025 2:11 PM EDT 05/18/2025 4:04 PM EDT Vee Harris MD LAB BLOOD ORDERABLES Final Res ult Performing Organization Address [facility]/ZIP Co de Phone Number [facility] [address] [place] [phone] * Hepatitis C Antibody with Reflex to HCV, RNA, Quantitative, Real-Time PCR (05/18/2025 2:11 PM EDT) Pathologist [facility] Hepatitis C Antibody Nonreactive Nonreactive [facility] Comment:Antibodies to HCV no t detected; does not exclude early acuteHCV infection. Blood Venous blood specimen / Unknown 05/18/2025 2:11 PM EDT 05/18/2025 4:13 PM EDT Vee Harris MD LAB BLOOD ORDERABLES Final Res ult Performing Organization Address [facility] [[email or web address]] Co de Phone Number [facility] [address] [place] [phone] * RPR (Monitor) with Reflex to??Titer (05/18/2025 2:11 PM EDT) RPR (Monitor) w/Refl Titer NON-REACTI VE NON-REACT TRUPTI [facility] Comment:THIS TEST WAS PERFOR MED AT:[facility] [address] [phone] BARROW MD Rapid Plasma Reagin Ab Titer TNP [facility] Blood Venous blood specimen / Unknown 05/18/2025 2:11 PM EDT 05/18/2025 4:13 PM EDT Vee Harris MD LAB BLOOD ORDERABLES Final Res ult [facility] [address] [place] [phone] * HIV-1/2 Antigen and Antibodies, Fourth Generation, with Reflexes (05/18/2025 2:11 PM EDT) Pathologist [facility] HIV AB/AG Nonreactive Nonreactive [facility] Comment:HIV-1 p24 Ag and/or HIV-1/HIV-2 Ab not detected.A test result that is nonreactive does not exclude thepossibility of exposure to or infection with HIV-1 and/orHIV-2. Nonreactive results in this assay for individualswith prior exposure to HIV-1 and/or HIV-2 may be due toantigen and antibody levels that are below the limit ofdetection of this assay.The [employer] HIV Ag/Ab Combo assay result andsupplemental assay results should be interpreted inconjunction with the patient's clinical presentation,history and other laboratory results. If the results areinconsistent with clinical evidence, additional testing issuggested to confirm the result. Blood Venous blood specimen / Unknown 05/18/2025 2:11 PM EDT 05/18/2025 4:13 PM EDT us Vee Harris MD LAB BLOOD ORDERABLES Final Res ult Performing Organization Address City/[facility]/ZIP Co de Phone Number [facility] [address] [place] [phone] * (ABNORMAL) Sed Rate by Modified Westergren (05/18/2025 2:11 PM EDT) Erythrocyte Sedimentation Rate 25(H) 0 - 20 MM/HR [facility] Comment:Patients with polycy themia and many hemoglobin abnormalitiesmay have depressed sed rates whereas patients with anemiamay have elevated sed rates. Blood Venous blood specimen / Unknown 05/18/2025 2:11 PM EDT 05/18/2025 4:11 PM EDT Vee Harris MD LAB BLOOD ORDERABLES Final Res ult Performing Organization Address [facility] [[email or web address]] Co de Phone Number [facility] [address] [place] [phone] * (ABNORMAL) C-reactive Protein (05/18/2025 2:11 PM EDT) C Reactive Protein 0.52(H) < or = 0.50 mg/dL [facility] Blood Venous blood specimen / Unknown 05/18/2025 2:11 PM EDT 05/18/2025 4:13 PM EDT Vee Harris MD LAB BLOOD ORDERABLES Final Res ult Performing Organization Address [facility] [[email or web address]] Co de Phone Number [facility] [address] [place] [phone] * (ABNORMAL) POCT Urinalysis (04/29/2025 3:43 [...] EDT 04/29/2025 5:23 PM EDT Comment:UACC Narrative [facility] - 05/02/2025 7:25 AM EDT Enterococcus faecalis Quant 10,000 to 50,000 cfu/mL Enterococcus faecalis: Ampicillin <=2(S) Enterococcus faecalis: Levofloxacin 1(S) Enterococcus faecalis: Nitrofurantoin <=16(S) Enterococcus faecalis: Tetracycline >=16(R) Enterococcus faecalis: Vancomycin 1(S) Specimen Source: Urine clean catch us Leesa Wasserman MD LAB MICROBIOLOGY - NERAL ORDERABLES Final Result [facility] [address] [place] [phone] * (ABNORMAL) Bacterial Vaginosis Panel (04/29/2025 3:30 PM EDT) TRICHOMONAS VAGINALIS DETECTION BY PCR NOT DETECTED Not Detect [facility] BACTERIAL VAGINOSIS DETECTION BY PCR NEGATIVE Negative [facility] Comment:The BV organism targ ets [...] GROUP DETECTION BY PCR DETECTED(A) Not Detect [facility] Karo glab krusei PCR NOT DETECTED Not Detect [facility] Swab Vaginal structure / Unknown 04/29/2025 3:30 PM EDT 04/29/2025 5:23 PM EDT us Leesa Wasserman MD LAB MICROBIOLOGY - GE NERAL ORDERABLES Final Result [facility] [address] [place] [phone] * XR Cervical Spine 5 View (04/28/2025 12:07 PM EDT) Anatomical Region Laterality Modality Spine, C-spine Radiographic Lisa ging 04/28/2025 12:0 7 PM EDT Narrative 04/28/2025 1:34 PM EDT [facility] [address] [place] [address] XRay Report Signed Patient: Leesa Reyes MR#: [id number] 682 : 1970 Acct:[id number] Age/Sex: 54 / F ADM Date: 04/28/25 [facility]: Leesa Wsaserman MD Ordering Physician: Leesa Rapp MD Date of Service: 04/28/25 Procedure(s): XR cervical spine 5V Accession Number(s): [id number] cc: Leesa Rapp MD Reason for Exam: [...] 04/28/25 1331 DD/ 1207 TD/TT: 04/28/25 1220 Foster Care Worker: Procedure Note Donotuseinterpreter, Image - 04/28/[address] [address] XRay Report Signed Patient: Leesa Reyes MMR#: [id number] 682 : 1970Acct:[id number] Age/Sex: 54 / FADM Date: 04/28/25 Loc: [facility] Attending Dr: Leesa Wasserman MD Ordering Physician: Leesa Rapp MD Date of Service: 04/28/25 Procedure(s): XR cervical spine 5V Accession Number(s): [id number] cc: Leesa Rapp MD Reason for Exam: [...] by Fabrizio Bacon MD in OV> 04/28/25 133 DD/ 1207 TD/TT: 04/28/25 1220 Foster Care Worker: us Leesa Wasserman MD IMG XR PROCEDURES Fin al Result * XR Thoracic Spine 3 Views (04/28/2025 11:47 AM EDT) Anatomical Region Laterality Modality Spine, T-spine Radiographic Lisa ging 04/28/2025 11:4 7 AM EDT Narrative 04/28/2025 1:36 PM EDT [address] [address] XRay Report Signed Patient: Leesa Reyes MR#: [id number] 682 : 1970 Acct:[id number] Age/Sex: 54 / F ADM Date: 04/28/25 Loc: [facility] Attending Dr: Leesa Wasserman MD Ordering Physician: Leesa Rapp MD Date of Service: 04/28/25 Procedure(s): XR thoracic spine 3V Accession Number(s): [id number] cc: Leesa Rapp MD Reason for Exam: [...] 04/28/25 1333 DD/ 1147 TD/TT: 04/28/25 1220 Foster Care Worker: Procedure Note Donotuseinterpreter, Image - 04/28/[address] [address] XRay Report Signed Patient: Leesa Reyes MMR#: [id number] 682 : 1970Acct:[id number] Age/Sex: 54 / FADM Date: 04/28/25 Loc: [facility] Attending Dr: Leesa Wasserman MD Ordering Physician: Leesa Rapp MD Date of Service: 04/28/25 Procedure(s): XR thoracic spine 3V Accession Number(s): [id number] cc: Leesa Rapp MD Reason for Exam: [...] 04/28/25 1333 DD/ 1147 TD/TT: 04/28/25 1220 Foster Care Worker: Leesa Wasserman MD IMG XR PROCEDURES Fin al Result * XR Lumbar Spine 2-3 Views (04/28/2025 11:45 AM EDT) Anatomical Region Laterality Modality Spine, L-spine Radiographic Lisa ging 04/28/2025 11:4 5 AM EDT Narrative 04/28/2025 1:37 PM EDT [address] [address] XRay Report Signed Patient: Leesa Reyes MR#: [id number] 682 : 1970 Acct:[id number] Age/Sex: 54 / F ADM Date: 04/28/25 Loc: [facility] Attending Dr: Leesa Wasserman MD Ordering Physician: Leesa Rapp MD Date of Service: 04/28/25 Procedure(s): XR lumbar spine 2-3V Accession Number(s): [id number] cc: Leesa Rapp MD Reason for Exam: [...] 04/28/25 1334 DD/ 1145 TD/TT: 04/28/25 1220 Foster Care Worker: Procedure Note Donotuseinterpreter, Image - 04/28/2025 [place] [address] XRay Report Signed Patient: Leesa Reyes MMR#: [id number] 682 : 1970Acct:[id number] Age/Sex: 54 / FADM Date: 04/28/25 Loc: [facility] Attending Dr: Leesa Wasserman MD Ordering Physician: Leesa Rapp MD Date of Service: 04/28/25 Procedure(s): XR lumbar spine 2-3V Accession Number(s): [id number] cc: Leesa Rapp MD Reason for Exam: [...] 04/28/25 1334 DD/ 1145 TD/TT: 04/28/25 1220 Foster Care Worker: Leesa Wasserman MD IMG XR PROCEDURES Fin al Result * XR Shoulder 2+ Views Left (04/28/2025 11:30 AM EDT) Anatomical Region Laterality Modality Upper Extremities, Shoulder Left Radi ographic Imaging 04/28/2025 11:3 0 AM EDT Narrative 04/28/2025 1:30 [place] [address] XRay Report Signed Patient: Leesa Reyes MR#: [id number] 682 : 1970 Acct:[id number] Age/Sex: 54 / F ADM Date: 04/28/25 Loc: [facility] Attending Dr: Leesa Wasserman MD Ordering Physician: Leesa Rapp MD Date of Service: 04/28/25 Procedure(s): XR shoulder LT min 2V Accession Number(s): [id number] cc: Leesa Rapp MD Reason for Exam: [...] Fabrizio Bacon MD 04/28/2025 01:28 PM EDT RP Dictated By: Fabrizio Bacon MD Signed By: <Electronically signed by Fabrizio Bacon MD in OV> 04/28/25 1328 DD/ 1130 TD/TT: 04/28/25 1220 Foster Care Worker: Procedure Note Donotuseinterpreter, Image - 04/28/[address] [address] XRay Report Signed Patient: Leesa Reyes MMR#: [id number] 682 : 1970Acct:[id number] Age/Sex: 54 / FADM Date: 04/28/25 Loc: [facility] Attending Dr: Leesa Wasserman MD Ordering Physician: Leesa Rapp MD Date of Service: 04/28/25 Procedure(s): XR shoulder LT min 2V Accession Number(s): [id number] cc: Leesa Rapp MD Reason for Exam: [...] Fabrizio Bacon MD 04/28/2025 01:28 PM EDT RP Dictated By: Fabrizio Bacon MD Signed By: <Electronically signed by Fabrizio Bacon MD in OV> 04/28/25 1328 DD/ 1130 TD/TT: 04/28/25 1220 Foster Care Worker: us Leesa Wasserman MD IMG XR PROCEDURES Fin al Result * CT Abdomen Pelvis w/ Contrast (04/25/2025 4:17 AM EDT) Anatomical Region Laterality Modality Body, Pelvis, Abdomen Computed T omography 04/25/2025 4:17 AM EDT Narrative 04/25/2025 4:19 AM EDT [place] [address] CT Scan Report Signed Patient: Leesa Reyes MR#: [id number] 682 : 1970 Acct:[id number] Age/Sex: 54 / F ADM Date: 04/23/25 Loc: [facility] 472-[address]: Leonard GUILLORY Ordering Physician: Augusto Levine MD Date of Service: 04/25/25 Procedure(s): CT abdomen pelvis w IV con Accession Number(s): [id number] cc: Leesa Rapp MD; Augusto Levine MD Report Number: [id number]: Total DLP = 508.00 mGy-cm CLINICAL HISTORY: [...] in OV> 04/25/25417 DD/ 6 TD/TT: 04/25/25416 Foster Care Worker: Procedure Note Donotuseinterpreter, Image - 04/25/[address] [place] [address] [address] Scan Report Signed Patient: Leesa Reyes MMR#: [id number] 682 : 1970Acct:[id number] Age/Sex: 54 / FADM Date: 04/23/25 Loc: [facility] 472-[address]: Leonard GUILLORY Ordering Physician: Augusto Levine MD Date of Service: 04/25/25 Procedure(s): CT abdomen pelvis w IV con Accession Number(s): [id number] cc: Leesa Rapp MD; Augusto Levine MD Report Number: [id number]: Total DLP = 508.00 mGy-cm CLINICAL HISTORY: [...] in OV> 04/25/25417 DD/ 6 TD/TT: 04/25/25416 Foster Care Worker: [facility] External Provider IMG CT PROCEDURES Final Result * Hm Colonoscopy (11/08/2024) Colonoscopy Normal Normal Narrative Glenna Best - 11/08/2024 Repeat Colonoscopy in 2 years for Crohn's disease surveillance. See external admission note on 11/08/2024 Historical Provider HEALTH MAINTENANCE Final Result * (ABNORMAL) Lipid Panel with Reflex to Direct LDL (05/19/2024 11:00 AM EDT) Triglycerides 214(H) <150 mg/dL [facility] Comment:Desirable Triglyceri de: less than 150 mg/dLBorderline High Triglyceride 150-199 mg/dLHigh Triglyceride: 200-499 mg/dLVery High Triglyceride: greater than or equal to 5OO mg/dL Cholesterol 207(H) <200 mg/dL [facility] Comment:Desirable Cholestero l: less than 200 mg/dLBorderline High Cholesterol: 200-239 mg/dLHigh Cholesterol: greater than 239 mg/dL LDL Cholesterol Calculated 124(H) <100 mg/dL [facility] Comment:Desirable LDL: less than 100 mg/dLNear Optimal/Above Optimal LDL: 110- 129 mg/dLBorderline High LDL: 130-159 mg/dLHigh LDL: 160-189 mg/dLVery High LDL: greater than or equal to 190 mg/dL HDL Cholesterol 41 >40 mg/dL [facility] Comment:Desirable HDL: great er than 40 mg/dL Note: This HDL assay may give artificially low results in patients with liver disease. Blood 05/19/2024 11:0 0 AM EDT 05/19/2024 1:20 PM EDT us Leesa Wasserman MD LAB BLOOD ORDERABLES Final Result [facility] [address] [place] [phone] * Image-Guided Pap with Age-Based Screening??with CT/NG,??Trichomonas (07/03/2023 10:41 AM EST) Trichomonas (NAAT) Not Detected Not Detected [facility] Comment:Methodology: Transcr iption Mediated Amplification(TMA)The analytical performance characteristics of thisassay have been determined [place] The modificationshave not been cleared or approved by the FDA. Thisassay has been validated pursuant to the CLIAregulations and is used for clinical purposes.For additional information, please refer tohttp://[employer]/faq/Trichomonastma (This link is being providedfor information/educational purposes only).THIS TEST WAS PERFORMED AT:[facility]/[employer] [address] [id number] ALLAN MD,PHD CTNG Ref Lab Not Detected Not Detected [facility] NG Ref Lab Not Detected Not Detected [facility] Comment:Methodology: Transcr iption Mediated Amplification(TMA) to detect RNA.The analytical performance characteristics of thisassay, when used to test [facility] specimens havebeen determined by [employer]. The modificationshave not been cleared or approved by the FDA.This assay has been validated pursuant to the CLIAregulations and is used for clinical purposes.For additional information, please refer tohttps://[employer]/faq/CWC436(This link is being provided for information/educational purposes only).THIS TEST WAS PERFORMED AT:[facility] [place] [address]LGSJCSKRAYMUNDO ALLAN MD,PHD 07/03/2023 10:4 1 AM EST 07/04/2023 9:02 AM EST Leesa Wasserman MD LAB CYTOLOGY ORDERABL ES Final Result Performing Organization Address [facility] de Phone Number [facility] [address] [place] [phone] * HPV mRNA E6/E7 w/Reflex to HPV Genotypes 16, 18/45 (07/03/2023 10:41 AM EST) HPV nRNA E6/E7 Not Detected Not Detected [facility] Comment:Methodology: Transcr iption-Mediated AmplificationThis assay detects E6/E7 viral messenger RNA (mRNA) from 14high-risk HPV types (16,18,31,33,35,39,45,51,52,56,58,59,66,68).Cervical sources are required for HPV testing.If a vaginal source from a patient who has had atotal hysterectomy with removal of cervix wassubmitted, please contact the testing laboratoryfor alternative testing options.For additional information, please refer tohttp://education.[employer]/faq/KXD744j7(This link if provided for information/educational purposes only.)THIS TEST WAS PERFORMED AT:[facility] [address] [id number] BARROW MD HPV mRNA E6/E7 [facility] HPV 16 RNA TNP [facility] HPV 18/45 RNA [facility] 07/03/2023 10:4 1 AM EST 07/04/2023 8:10 AM EST us Leesa Wasserman MD LAB CYTOLOGY ORDERABL ES Final Result Performing Organization Address [facility] [[email or web address]] Co de Phone Number [facility] [address] [place] [phone] * BI Mammogram Screening Tomosynthesis Bilateral (03/13/2023 1:46 PM EDT) Anatomical Region Laterality Modality Breast Bilateral Mammography 03/13/2023 1:46 PM EDT Narrative 04/08/2023 1:29 PM EDT [facility] [address] [place] [address] Mammography Report Signed Patient: Leesa Reyes MR#: [id number] : 1970 Acct:[id number] Age/Sex: 52 / F ADM Date: 03/13/23 Loc: HO.BEBE Attending Dr: Leesa Wasserman MD Ordering Physician: Leesa Rapp MD Results: Date of Service: 03/13/23 Follow Up: Procedure(s): MM tomosynthesis screening BI Accession Number(s): [id number] cc: Leesa Rapp MD EXAMINATION: MM SCREENING [...] in OV> 04/08/23 1327 DD/ 1346 TD/TT: Foster Care Worker: Procedure Note Donotuseinterpreter, Image - 04/08/2023 [facility] [address] [place] [address] Mammography Report Signed Patient: Leesa Reyes MMR#: [id number] : 1970Acct:[id number] Age/Sex: 52 / FADM Date: 03/13/23 Loc: HO.MAMMO Attending Dr: Leesa Wasserman MD Ordering Physician: Leesa Rapp MDResults: Date of Service: 03/13/23Follow Up: Procedure(s): MM tomosynthesis screening BI Accession Number(s): [id number] cc: Leesa Rapp MD EXAMINATION: MM SCREENING [...] in OV> 04/08/23 1327 DD/ 1346 TD/TT: Foster Care Worker: us Leesa Wasserman MD IMG BI PROCEDURES Fin al Result * OCCULT BLOOD STOOL (12/16/2019 4:02 PM EDT) OCCULT BLOOD STOOL NEG NEG [facility] 12/16/2019 4:02 PM EDT us Historical Provider LAB BODY FLUIDS AND STOOL S ORDERABLES Final Result [facility] [address] [place] [address], from Last 3 Months or Most Recently Relevant to Health Maintenance [facility] [address] [place] [address] Care Teams Ophthalmic Technician Apprentice Relationship Specialty Start Date End Date Leesa Rapp MD [address] [place] [address] PCP - General Family Medicine 2/21/20 Adam Hanson, RN [address] [place] [phone] Registered Nurse Family Medicine 04/26/25 Cathy Rucker 04/26/25 Chaparrita Monsalve Antisqueak ChalkerGmat Instructor 05/26/25
--- OUTSIDE RECORDS SUMMARY | 2025-06-09 10:13 | XMS_ITS | Encounter Summary ---
Author Organization [employer] Address [address] [facility] 7t [place] [address] Care Team Providers Care Rail Transportation Tabeler Name Role Phone Leesa Rapp MD Primary Care Provide r Adam Hanson RN Unavailable [phone] Cathy Rucker Unavailable Reason for Visit * Reason Comments Med Refill Encounter Details Date Type Department Care Team (Late st Contact Info) Description 12/31/2022 Refill [facility] [address] [place], [place] [phone] Vee Harris MD 230 [place], [place] [phone] Moderate persistent asthma without complication Social History [...] complication documented in this encounter Care Teams Rail Transportation Tabeler Relationship Specialty Start Date End Date Leesa Rapp MD [address] [place] [address] PCP - General Family Medicine 10/15/19 Adam Hanson RN [address] [place] [address] Registered Nurse Family Medicine 04/26/25 Cathy Rucker 04/26/25 Chaparrita Monsalve Designer ArchitectTruck Mechanic Apprentice 05/26/25 documented as of this encounter
--- OUTSIDE RECORDS SUMMARY | 2025-06-09 10:13 | XMS_ITS | Encounter Summary ---
Author Organization [employer] Address 75 [facility] 7t [place] [address] Care Team Providers Care Brownfield Program Coordinator Name Role Phone Leesa Rapp MD Primary Care Provide r Adam Hanson RN Unavailable [phone] Cathy Rucker Unavailable Reason for Visit * Reason Comments Med Refill Encounter Details Date Type Department Care Team (Late st Contact Info) Description 06/04/2025 Refill [facility] [address] [place], [place] [phone] Leesa Rapp MD [address] [place] [address] Anxiety Social History Tobacco Use Types Packs/Day [...] documented as of this encounter Care Teams Brownfield Program Coordinator Relationship Specialty Start Date End Date Leesa Rapp MD [address] [place] [address] PCP - General Family Medicine 10/15/19 Adam Hanson RN [address] [place] [address] Registered Nurse Family Medicine 04/26/25 Cathy Rucker 04/26/25 Chaparrita Monsalve Automation Machine OperatorDiamond Assorter 05/26/25 documented as of this encounter
--- OUTSIDE RECORDS SUMMARY | 2025-06-09 10:13 | XMS_ITS | Encounter Summary ---
Author Organization [employer] Address 75 [facility] 7t [place] [address] Care Team Providers Care Mail Processing Associate Name Role Phone Leesa Rapp MD Primary Care Provide r Adam Hanson RN Unavailable [phone] Cathy Rucker Unavailable Reason for Visit * Reason Comments Med Refill Encounter Details Date Type Department Care Team (Late st Contact Info) Description 01/31/2023 Refill [facility] & PEDS [address] [place], [place] [phone] Christy Stockton DO [address] [place], [place] [phone] Anxiety Social History Tobacco Use Types Packs/Day [...] unspecified documented in this encounter Care Teams Mail Processing Associate Relationship Specialty Start Date End Date Leesa Rapp MD [address] [place] [address] PCP - General Family Medicine 10/15/19 Adam Hanson, ANTONIO [address] [place] [address] [place] [address] Registered Nurse Family Medicine 04/26/25 Cathy Rucker 04/26/25 Chaparrita Monsalve Vp Global Marketing SolutionsRoute Delivery Service Driver 05/26/25 documented as of this encounter
--- OUTSIDE RECORDS SUMMARY | 2025-06-09 10:13 | XMS_ITS | Encounter Summary ---
Author Organization [employer] Address 75 [facility] 7t [place] [address] Care Team Providers Care Woods Overseer Name Role Phone Leesa Rapp MD Primary Care Provide r Adam Hanson RN Unavailable [phone] Cathy Rucker Unavailable Reason for Visit * Reason Comments Med Refill Encounter Details Date Type Department Care Team ([facility] st Contact Info) Description 09/03/2023 Refill [facility] 230 [place], [place] [phone] Rohini Meade MD [address] [place], [place] [phone] Chronic nonintractable headache, unspecified headache type Social [...] type documented in this encounter Care Teams Woods Overseer Relationship Specialty Start Date End Date Leesa Rapp MD [address] [place] [address] PCP - General Family Medicine 10/15/19 Adam Hanson RN [address] [place] [address] Registered Nurse Family Medicine 04/26/25 Cathy Rucker 04/26/25 Chaparrita Monsalve Oil Rig RoughneckApartment Maintenance Technician 05/26/25 documented as of this encounter
--- OUTSIDE RECORDS SUMMARY | 2025-06-09 10:13 | XMS_ITS | Encounter Summary ---
Author Organization [employer] Address 75 [facility] 7t [place] [address] Care Team Providers Care Narrow Fabric Loom Fixer Name Role Phone Leesa Rapp MD Primary Care Provide r Adam Hanson RN Unavailable [phone] Cathy Rucker Unavailable Reason for Visit * Reason Comments Med Refill Encounter Details Date Type Department Care Team (Late st Contact Info) Description 12/01/2024 Refill [facility] MED & PEDS [address] [place], [place] [phone] Leesa aRpp MD 230 [place], [place] [phone] Anxiety Social History Tobacco Use Types Packs/Day [...] documented as of this encounter Care Teams Narrow Fabric Loom Fixer Relationship Specialty Start Date End Date Leesa Rapp MD [address] [place] [address] PCP - General Family Medicine 10/15/19 Adam Hanson RN [address] [place] [address] Registered Nurse Family Medicine 04/26/25 Cathy Rucker 04/26/25 Chaparrita Monsalve Hydrogen Power Plant EngineerMagnetic Prospecting Supervisor 05/26/25 documented as of this encounter
--- OUTSIDE RECORDS SUMMARY | 2025-06-09 10:13 | XMS_ITS | Clinical Summary ---
Author Organization [facility] Address [address] [place] [address] Care Team Providers Care E/M Engineer Name Role Phone Macy Washburn NP Primary Care Provider [phone] Social History Tobacco Use Types Packs/Day Years Used Date Smoking Tobacco: Never Assessed Comments Unknown Sex and Gender Information Value Date Recorded Sex Assigned at Not on file Legal Sex Female 2:11 AM EST Gender Identity Not on file Sexual Orientation Not on file Obstetrics History Plan of Treatment Health Maintenance Due Date Last Done Comments Breast Cancer Screening 1970 Colorectal Cancer Screening: Colonoscopy 1970 DTaP,Tdap,and Td Vaccines (1 - Tdap) 1989 Hepatitis B Vaccines (1 of 3 - 19+ 3-dose series) 1989 Cervical Cancer Screening: P ap Smear 1991 Pneumococcal Vaccine: 50+ Ye ars (1 of 1 - PCV) 2020 Zoster Vaccines (1 of 2) 2020 HIV Screening 06/19/2024 Hepatitis C Screening 06/19/2024 Social Influencers of Health Screening 06/19/2024 Depression Screening 08/25/2024 COVID-19 Vaccine (1 - 2023-2 5 season) 2025 Influenza Vaccine [...] age to complete this topic Care Teams E/M Engineer Relationship Specialty Start Date End Date Macy Washburn NP [address] [place] [address] [phone] PCP - General 03/12/05
--- OUTSIDE RECORDS SUMMARY | 2025-06-09 10:13 | XMS_ITS | Encounter Summary ---
Author Organization [employer] Address 75 [facility] 7t [place] [address] Care Team Providers Care Supervisor Labor Gang Name Role Phone Leesa Rapp MD Primary Care Provide r Adam Hanson RN Unavailable [phone] Cathy Rucker Unavailable Encounter Details Date Type Department Care Team (Late st Contact Info) Description 05/02/2025 Orders Only [facility] MEDICINE [address] [place] [address] Leesa Rapp MD [address] [place], [place] [phone] Social History Tobacco Use Types Packs/Day Years [...] documented as of this encounter Care Teams Supervisor Labor Gang Relationship Specialty Start Date End Date Leesa Rapp MD [address] [place] [address] PCP - General Family Medicine 10/15/19 Adam Hanson RN [address] [place] [address] Registered Nurse Family Medicine 04/26/25 Cathy Rucker 04/26/25 Chaparrita Monsalve Hawk Missile System CrewmemberSpin Table Operator 05/26/25 documented as of this encounter
--- OUTSIDE RECORDS SUMMARY | 2025-06-09 10:13 | XMS_ITS | Encounter Summary ---
Author Organization [employer] Address 75 [facility] 7t [place] [address] Care Team Providers Care Director Public Service Name Role Phone Leesa Rapp MD Primary Care Provide r Adam Hanson RN Unavailable [phone] Cathy Rucker Unavailable Encounter Details Date Type Department Care Team ([facility] st Contact Info) Description 10/30/2022 Orders Only [facility] MED & PEDS [address] [place], [place] [phone] Christy Kaye LPN Social History Tobacco Use [...] on filedocumented in this encounter Care Teams Director Public Service Relationship Specialty Start Date End Date Leesa Rapp MD [address] [place], [place] [phone] PCP - General Family Medicine 10/15/19 Adam Hanson, ANTONIO [address] [place] [address] Registered Nurse Family Medicine 04/26/25 Cathy Rucker 04/26/25 Chaparrita Monsalve Spa CoordinatorAsset Protection Agent 05/26/25 documented as of this encounter
--- OUTSIDE RECORDS SUMMARY | 2025-06-09 10:13 | XMS_ITS ---
Author Organization [employer] Address [address] [facility] 7t [place] [address] Care Team Providers Care Oven Heater Helper Name Role Phone Leesa Rapp MD Primary Care Provide r Adam Hanson RN Unavailable [phone] Cathy Rucker Unavailable [facility] Status:Outreach In Progress (Enrolling) Start date:04/26/2025 Enrollment reason:ADT Feed Overview ADT-admitted [facility] 04/23/25. Please outreach for enrollment. Please outreach facility. Case Team Name Relationship Phone Cathy Rucker(Responsible Staff) [phone] Continued Care and Services Coordination
--- OUTSIDE RECORDS SUMMARY | 2025-06-09 10:13 | XMS_ITS | Encounter Summary ---
Author Organization [employer] Address [address] [facility] 7t [place] [address] Care Team Providers Care Souvenir Assembler Name Role Phone Leesa Rapp MD Primary Care Provide r Adam Hanson RN Unavailable [phone] Cathy Rucker Unavailable Reason for Visit * Reason Comments Med Refill Encounter Details Date Type Department Care Team ([facility] st Contact Info) Description 06/07/[address] [facility] MEDICINE [address] [employer] [place], [place] [phone] Leesa Rapp MD 230 [place], [place] [phone] Healthcare maintenance; Vitamin D deficiency Social History Tobacco Use Types Packs/Day Years [...] this encounter Visit Diagnoses Diagnosis Healthcare maintenance Vitamin D deficiency documented in this encounter Additional Health Concerns Assessment Noted Time PHQ-9 Depression Total Score: 19 025 9:53 AM EDT documented as of this encounter Care Teams Souvenir Assembler Relationship Specialty Start Date End Date Leesa Rapp MD [address] [place] [address] PCP - General Family Medicine 10/15/19 Adam Hanson RN [address] [place] [address] Registered Nurse Family Medicine 04/26/25 Cathy Rucker 04/26/25 Chaparrita Monsalve Roping TenderField Foreman 05/26/25 documented as of this encounter
--- OUTSIDE RECORDS SUMMARY | 2025-06-09 10:13 | XMS_ITS | Encounter Summary ---
Author Organization [employer] Address 75 [facility] 7t [place] [address] Care Team Providers Care Desktop Publisher Name Role Phone Leesa Rapp MD Primary Care Provide r Adam Hanson RN Unavailable [phone] Cathy Rucker Unavailable Reason for Visit * Reason Comments Med Refill Encounter Details Date Type Department Care Team ([facility] st Contact Info) Description 04/29/2024 Refill [facility] MEDICINE [address] [place], [place] [phone] Leesa Rapp MD [address] [place], [place] [phone] Anxiety Social History Tobacco Use Types Packs/Day [...] documented as of this encounter Care Teams Desktop Publisher Relationship Specialty Start Date End Date Leesa Rapp MD [address] [place] [address] PCP - General Family Medicine 10/15/19 Adam Hanson RN [address] [place] [address] Registered Nurse Family Medicine 04/26/25 Cathy Rucker 04/26/25 Chaparrita Monsalve Chemical Plant Operator SupervisorWindrower Operator 05/26/25 documented as of this encounter
== END 2025-06-09 12:31 | disposition home or self-care (01) ==
LOC: HO.HGI 09:07
PROVIDERS: PCP Internal Medicine; Visit Provider Internal Medicine Gastroenterology
DX: K21.9 Gastro-esophageal reflux disease without esophagitis (principal); K59.09 Other constipation; K50.90 Crohn's disease, unspecified, without complications
CPT/HCPCS: 99214

== ENCOUNTER → 2025-06-09 09:06 | Outpatient (BNVA) | payer MEDICAID, SELFPAY | PROVIDERS: PCP Internal Medicine; Visit Provider Internal Medicine Gastroenterology | DX: K50.90 Crohn's disease, unspecified, without complications (principal); K21.9 Gastro-esophageal reflux disease without esophagitis; K59.09 Other constipation | CPT/HCPCS: 99212 ==

== ENCOUNTER 2025-06-28 02:43 | Inpatient (IN) | payer MEDICAID, SELFPAY ==
[2025-06-28] VITALS (12 sets, daily range): BP systolic 125–170; BP diastolic 61–90; PULSE 66–79; RESP 14–18; TEMP 36.2–36.9; O2SAT 95–100; BMI 29.2; BMI 29.3
--- NOTE | ~2025-06-28 | CT_ITS ---
EXAMINATION: CT ENTEROGRAPHY ABDOMEN AND PELVIS WITH CONTRAST CLINICAL INFORMATION: diarrhea, colitis COMPARISON: June 28, 2025 TECHNIQUE: Study performed with oral VoLumen (1350 mL) and 480 mL of water to distend the abdomen. The patient was injected with 85 mL Omnipaque 350 intravenous contrast which was administered without adverse effect. Coronal and sagittal reformatted images were obtained at the technologist's workstation. This CT examination was performed using dose optimization techniques as appropriate, variously including the following: *Automated exposure control *Adjustment of mA and/or kV according to patient size (this includes techniques or standardized protocols for targeted exams where dose is matched to indication/reason for exam; i.e. extremities or head) *Use of iterative reconstruction technique FINDINGS: GASTROINTESTINAL FINDINGS: Stomach: Well-distended and normal in appearance. Small intestine: The distal ileum at Junction with cecum demonstrates narrowing of the lumen without wall thickening or fat stranding. There is an end to end anastomosis in the distal ileum, low in the central pelvis. Anastomosis appears widely patent. There is surgical scar in the abdominal wall in the right lower quadrant. There is also mesh in the anterior abdominal wall. Loops of small bowel appear adherent to the deep surface of the right rectus abdominis muscle in this region. However, there is no upstream small bowel dilation to suggest obstruction. Large intestine: Again seen is an end to end anastomosis at the rectosigmoid junction. There is mild wall thickening of the rectum and in the region of the anastomosis. Thickening appears decreased when compared to the most recent prior. Well-distended and normal in appearance. No perirectal changes demonstrated. The appendix is normal. Additional findings: No abnormal enhancement of the vasa recta or significant mesenteric or retroperitoneal lymphadenopathy is seen. No abdominal abscess or fistulous tract demonstrated. ABDOMINAL AND PELVIC CT FINDINGS: Liver, gallbladder, biliary tract: There is focal fatty change along the fissure for ligamentum teres. Liver and gallbladder are otherwise unremarkable. Pancreas: Unremarkable Spleen: Unremarkable Adrenal glands and kidneys: There is a 3 mm nonobstructing stone in the upper pole left kidney. Ureters and bladder: Unremarkable Lymphovascular structures: Minimal atherosclerotic ossifications are present. There is no adenopathy. Uterus and ovaries are unremarkable. Bones: Moderate degenerative disc disease present at L5-S1. There is no evidence of sacroiliitis. Lung bases: Clear CT/CT enterography IMPRESSION: Thickening of the rectum and the rectosigmoid anastomosis is improved compared to the prior study. There are postsurgical changes related to a large mesh that has been placed across anterior abdomen. Small bowel loops appear adherent to the anterior peritoneum through this region but there is no sign of obstruction. There is a 3 mm nonobstructing stone in the upper pole the left kidney. Electronically signed by: Tomer Miles MD 07/04/2025 11:57 AM WILLIAM
--- NOTE | ~2025-06-28 | CT_ITS ---
EXAMINATION: CT ABDOMEN AND PELVIS WITH CONTRAST CLINICAL INFORMATION: SBO versus Crohn's flare. COMPARISON: April 25, 2025. TECHNIQUE: Multidetector volumetric images were obtained from the superior aspect of the liver through the pubic symphysis following administration 85 mL of Omnipaque 350 intravenous contrast. Sagittal and coronal reformatted images were obtained on the technologist's workstation. Oral contrast: Yes This CT examination was performed using dose optimization techniques as appropriate, variously including the following: *Automated exposure control *Adjustment of mA and/or kV according to patient size (this includes techniques or standardized protocols for targeted exams where dose is matched to indication/reason for exam; i.e. extremities or head) *Use of iterative reconstruction technique DLP: 520 mGy-cm FINDINGS: LUNG BASES: Patchy pulmonary groundglass, peripheral lower lung lobes. LIVER, GALLBLADDER, AND BILIARY TREE: Liver measures 16 cm. No solid or cystic mass. Main portal veins, hepatic veins and intrahepatic portion of the IVC are patent. Nondistended. No pericholecystic fluid collection or gallbladder wall thickening. No intrahepatic or extrahepatic biliary ductal dilatation. PANCREAS: No solid or cystic mass. No peripancreatic fluid collection. No main pancreatic ductal dilatation. SPLEEN: 9 cm. No solid or cystic mass. ADRENAL GLANDS: No nodular lesions. KIDNEYS AND URETERS: 1.5 mm nonobstructing calculus in the upper pole pelvicalyceal system left kidney. No hydronephrosis in either kidney. No enhancing renal mass. Normal enhancement of the renal parenchyma. The ureters are not dilated. BLADDER: Fluid-filled nearly collapsed. GASTROINTESTINAL TRACT: Diffuse concentric intestinal wall thickening, rectosigmoid colon extending from the perianal region to the suture site the sigmoid colon. Abundant stool within the large intestine. Oral contrast reaches the distal ileal loops. Segmental narrowing distal ileal loops. The appendix appears normal. There is no intestinal obstruction pattern. No pneumatosis intestinalis. No ascites. No pneumoperitoneum. There are a few, less than 2 cm peripheral hypodensities in the left lateral lower peritoneal cavity.. ABDOMINAL WALL: Status post mesh placement in the intra-abdominal wall from the epigastric to the suprapubic. LYMPH NODES: Multiple mesenteric lymphadenopathy, right pericolonic and meso sigmoid VASCULAR: No aneurysm or dissection, abdominal aorta. Calcified plaques throughout the abdominal aorta wall and the origin of the mesenteric arteries origin of the main renal arteries and iliac arteries as well as the femoral arteries. PELVIC VISCERA: No gross masses. OSSEOUS STRUCTURES: Degenerative changes in the right hip and sacroiliac joints. Multilevel thoracolumbar spondylosis pronounced at L5-S1 resulting in bilateral neuroforamina stenosis. CT/CT abdomen pelvis w IV con IMPRESSION: Acute inflammatory processes/Crohn's flare, rectosigmoid and likely distal ileal loops. No intestinal obstruction pattern. No gross peritoneal fluid collections. Reactive mesenteric lymphadenopathy. Probably acute to subacute omental fat necrosis, left lower peritoneal cavity. Fleischner guidelines were followed. Electronically signed by: Ajay Ramirez MD 06/28/2025 08:11 AM WILLIAM
--- NOTE | 2025-06-28 03:08 | ED.GENADULT ---
HPI - General Adult General Chief complaint: Abdominal Pain Stated complaint: crohns flare up Time Seen by Provider: 06/28/25 02:59 Source: patient Limitations: language barrier History of Present Illness ED Provider: Nella Morales PA-C HPI narrative: 54-year-old female with a history of Crohn's disease on Xeljanz and Stelara with prior colon resection, subsequent development of a colonic stricture status post lysis of adhesions with the resection of colorectal anastomosis and new colorectal anastomosis with loop ileostomy Dr. Mcdonough [facility] [place] 04/[place]22, ileostomy take down 2022, chronic constipation secondary to chronic opiate therapy, GERD, RA, PE on Eliquis, chronic migraine,asthma, depression, PTSD who presents with abdominal pain x2 weeks. Pain is diffuse, has become somewhat focal to mid abdomen. The patient states she has developed distention over the past 4 days. She has been having bloody bowel movements, but feels as if she is primarily constipated at this time. Associated nausea vomiting and a fever of 100.3 yesterday at home. Denies inability to pass flatus. Related Data Home Medications ?Medication ?Instructions ?Recorded ?Confirmed docusate sodium 100 mg capsule 1 cap PO BID PRN Constipation 03/22/21 06/28/25 montelukast 10 mg tablet 1 tab PO BEDTIME 03/22/21 06/28/25 multivitamin 1 tab PO DAILY 03/22/21 06/28/25 budesonide-formoterol HFA 160 2 puff PO BID 09/08/21 06/28/25 mcg-4.5 mcg/actuation aerosol inhaler (Symbicort) zolpidem 5 mg tablet 5 mg PO BEDTIME PRN insomnia 12/17/23 06/28/25 acetaminophen 325 mg tablet 650 mg PO Q4H PRN Pain 02/11/24 06/28/25 (Tylenol) carboxymethylcellulose sodium 1 % 1 drp ophthalmic (eye) BID PRN Dry 02/11/24 06/28/25 eye liquid gel drops Eye(S) topiramate 100 mg tablet 100 mg PO BID 02/11/24 06/28/25 amlodipine 2.5 mg tablet 2.5 mg PO DAILY Hypertension 03/16/25 06/28/25 sertraline 25 mg tablet (Zoloft) 25 mg PO DAILY 03/16/25 06/28/25 ustekinumab 90 mg/mL subcutaneous 90 mg subcut Q4W 03/16/25 06/28/25 syringe (Stelara) albuterol sulfate 90 mcg/actuation 2 puff inhalation Q4H PRN 04/23/25 06/28/25 aerosol inhaler Shortness Of Breath buspirone 5 mg tablet 5 mg PO DAILY 04/23/25 06/28/25 calcium 600 mg (as 1 tab PO BID 04/23/25 06/28/25 carbonate)-vitamin D3 10 mcg (400 unit) tablet cholecalciferol (vitamin D3) 50 50 mcg PO DAILY 04/23/25 06/28/25 mcg (2,000 unit) tablet (Vitamin D3) hydroxyzine HCl 10 mg tablet 10 mg PO TID PRN Anxiety 04/23/25 06/28/25 melatonin 5 mg tablet 10 mg PO BEDTIME 04/23/25 06/28/25 methotrexate sodium 2.5 mg tablet 25 mg PO FR@0900 04/23/25 06/28/25 ondansetron 4 mg disintegrating 8 mg PO Q8H PRN nausea and vomiting 04/23/25 06/28/25 tablet tofacitinib 10 mg tablet (Xeljanz) 10 mg PO BID 04/23/25 06/28/25 fluticasone propionate 50 1 spray intranasal DAILY 06/28/25 06/28/25 mcg/actuation nasal spray,suspension pantoprazole 40 mg tablet,delayed 40 mg PO DAILY@0630 06/28/25 06/28/25 release (Protonix) Previous Rx's ?Medication ?Instructions ?Recorded risperidone 1 mg tablet 1 mg PO BID #60 tabs 04/04/21 lactulose 10 gram/15 mL oral 20 g (30 mL) PO BID Constipation 06/09/25 solution 30 days #1,800 mL apixaban 2.5 mg tablet (Eliquis) 2.5 mg PO BID #60 tabs 06/17/25 Allergies Allergy/AdvReac Type Severity Reaction Status Date / Time aspirin (ASA) Allergy Intermediate RASH Verified 06/28/25 02:58 azathioprine (From IMURAN) Allergy Intermediate PANCREATIC Verified 06/28/25 02:58 INFLAMMATION ibuprofen (IBUPROFEN) Allergy Intermediate TOLD NOT Verified 06/28/25 02:58 TO TAKE levofloxacin (From LEVAQUIN) Allergy Mild YEAST Verified 06/28/25 02:58 INFECTIONS Review of Systems Review of Systems: Yes all other systems are reviewed and are negative Constitutional: Constitutional: Denies fatigue and Denies fever(s) Cardiovascular: Cardiovascular: Denies chest pain and Denies dyspnea Respiratory: Respiratory: Denies dyspnea Gastrointestinal: Gastrointestinal: Reports abdominal pain, Reports diarrhea, Reports nausea and Reports vomiting Endocrine: Endocrine: Denies fatigue PMFSH Past Medical History Attestation statement: The following information was validated with the patient. Medical History Urge incontinence Stricture of colon Anxiety Sleep apnea Asthma GERD (gastroesophageal reflux disease) Pulmonary embolism Crohn's disease PTSD (post-traumatic stress disorder) Hyperlipidemia Hemorrhagic cyst of ovary Kidney stones Depression Iron deficiency anemia Rheumatoid arthritis Migraine Cancer HTN (hypertension) Surgical History History of esophagogastroduodenoscopy (EGD) History of colon resection History of colon resection Hx of dilation and curettage Hx of cystoscopy Hx of cystoscopy Hx of colonoscopy (~10/2018) Hx of endoscopy Social History Social History Household Members: None Housing: Apartment Are you a primary managed care liaison to a significant other at home: No Do you presently have visiting nurse or other home services: No ([employer] daily) Alcohol intake: never Patient Tobacco Use Status: Former Tobacco user Tobacco use type: Cigarette Cigarettes Per Day: 1 Years Smoked: 10 e-Cigarette/Vaping Use: Former Use Second Hand Smoke Exposure: No Substance Use Type: Marijuana Advance Directives Date on File: 02/13/24 service: No Current occupational status: unemployed and disabled Sexual orientation: Straight/Heterosexual Physical Exam ED Vital Signs: Vital Signs - 24 hr 06/28/25 02:53 06/28/25 04:00 06/28/25 04:01 Temperature 98.2 F Pulse Rate 69 Respiratory Rate 16 18 18 Blood Pressure 170/90 H Pulse Oximetry 96 Oxygen Delivery Method Room Air 06/28/25 04:35 06/28/25 06:00 06/28/25 08:42 Temperature 97.3 F Pulse Rate 70 Respiratory Rate 16 17 14 Blood Pressure 166/89 H Pulse Oximetry 98 Oxygen Delivery Method Room Air BMI result Body Mass Index 29.2 Const Other: Alert well-appearing Orientation/consciousness: patient oriented x3 Resp Effort & Inspection: normal respiratory effort Cardio Other: Normal peripheral perfusion GI Other: Abdomen is soft, mildly distended, generalized tenderness to palpation, most focal central abdomen without any objective guarding Skin Other: Warm dry no rash Neuro General: patient oriented x3, gait normal, no focal motor deficits and CN's II-XI intact bilaterally Psych Other: Cooperative Course Course Course Narrative: Signed out pending CT abdomen and pelvis and final disposition CT scan looks similar to prior though I will run it by Dr. Vieira from GI. Vital signs and labs are stable 06/28/2025 08:32 HIMANSHU Reevaluation(s) Reevaluation #1: Pallavi Hernandes, DO 06/28/25 0839 At this time giving CT scan abnormality we will treat as Crohn's flare started on IV steroids, IV antibiotics, stool studies, discussed with Dr. Vieira who recommends admission with those therapies in place discussed with hospitalist who agrees and accepts patient to service Medications Administered Generic Name Dose Route Start Last Admin Trade Name Freq PRN Reason Stop Dose Admin Hydromorphone HCl 0.5 mg 06/28/25 08:57 06/28/25 19:59 Hydromorphone Hcl 1 Mg/Ml Syringe IVPUSH 0.5 mg Q4H PRN Administration Pain, Severe (Pain Scale 7-10) Protocol Lactated Ringer's 1,000 mls @ 80 mls/hr 06/28/25 08:45 06/28/25 10:52 Lr IVCONT 80 mls/hr .[id number] JUANCHO Administration Piperacillin Sod/Tazobactam 100 mls @ 200 mls/hr 06/28/25 09:15 06/28/25 19:59 Sod 4.5 gm/ Sodium Chloride IV 100 mls/hr Q6H JUANCHO Administration Melatonin 9 mg 06/28/25 21:00 06/28/25 20:01 Melatonin 3 Mg Tablet PO 9 mg BEDTIME JUANCHO Administration Montelukast Sodium 10 mg 06/28/25 21:00 06/28/25 20:00 Montelukast Sodium 10 Mg Tablet PO 10 mg BEDTIME JUANCHO Administration Ondansetron HCl 4 mg 06/28/25 08:57 06/28/25 20:00 Ondansetron Hcl 4 Mg/2 Ml Vial IVPUSH 4 mg Q8H PRN Administration Nausea and Vomiting Oxycodone HCl 5 mg 06/28/25 08:57 06/28/25 14:57 Oxycodone Hcl Immed Release 5 Mg Tablet PO 5 mg Q6H PRN Administration Pain, Moderate(Pain Scale 4-6) Risperidone 1 mg 06/28/25 21:00 06/28/25 20:00 Risperidone 1 Mg Tablet PO 1 mg BID JUANCHO Administration Sodium Chloride 3 ml 06/28/25 16:00 06/28/25 16:01 0.9 % Sodium Chloride Flush 3 Ml Syringe IVFLUSH Not Given QSHIFT JUANCHO Topiramate 100 mg 06/28/25 21:00 06/28/25 20:00 Topiramate 100 Mg Tablet PO 100 mg BID JUANCHO Administration Zolpidem Tartrate 5 mg 06/28/25 11:23 06/28/25 20:00 Zolpidem Tartrate 5 Mg Tablet PO 5 mg BEDTIME PRN Administration Insomnia Discontinued Medications Generic Name Dose Route Start Last Admin Trade Name Freq PRN Reason Stop Dose Admin Diatrizoate Meglum/Diatrizoate Sod 30 ml 06/28/25 07:47 06/28/25 07:48 Diatrizoate Meglumine, Sodium 30 Ml Solution PO 06/28/25 07:48 30 ml ONCE ONE Administration Sodium Chloride 1,000 mls @ 999 mls/hr 06/28/25 03:00 06/28/25 06:14 Ns IV 06/28/25 04:00 Infused .Q1H1M JUANCHO Infusion Metronidazole 500 mg in 100 mls @ 100 mls/hr 06/28/25 08:37 06/28/25 12:29 Flagyl IV 06/28/25 09:36 Infused ONCE ONE Infusion Iohexol 100 ml 06/28/25 07:41 06/28/25 07:46 Iohexol 350 Mg/Ml 100 Ml Infus..Btl IV 06/28/25 07:42 85 ml ONCE ONE Administration Methylprednisolone Sodium Succinate 40 mg 06/28/25 08:37 06/28/25 09:52 Methylprednisolone Sod Succ 40 Mg/Ml Vial IVPUSH 06/28/25 08:38 40 mg ONCE ONE Administration Metoclopramide HCl 10 mg 06/28/25 03:47 06/28/25 04:01 Metoclopramide Hcl 10 Mg/2 Ml Vial IVPUSH 06/28/25 03:48 10 mg ONCE ONE Administration Morphine Sulfate 4 mg 06/28/25 03:25 06/28/25 04:01 Morphine Sulfate 4 Mg/Ml Cartridge IVPUSH 06/28/25 03:26 4 mg ONCE ONE Administration Protocol Morphine Sulfate 4 mg 06/28/25 08:38 06/28/25 09:55 Morphine Sulfate 4 Mg/Ml Cartridge IVPUSH 06/28/25 08:39 4 mg ONCE ONE Administration Protocol Procedures Procedure Narrative Procedure Narrative: Ultrasound-guided IV 20 gauge 1-3/4 inch IV placed in left upper extremity, adequate blood return, flushes well secured with Tegaderm. Medical Decision Making Medical Decision Making [facility] Narrative: 54-year-old female with a history of Crohn's disease on Xeljanz and Stelara with prior colon resection, subsequent development of a colonic stricture status post lysis of adhesions with the resection of colorectal anastomosis and new colorectal anastomosis with loop ileostomy Dr. Mcdonough [facility] 04/2022, ileostomy take down 2022, chronic constipation secondary to chronic opiate therapy, GERD, RA, PE on Eliquis, chronic migraine,asthma, depression, PTSD who presents with abdominal pain x2 weeks. Pain is diffuse, has become somewhat focal to mid abdomen. The patient states she has developed distention over the past 4 days. She has been having bloody bowel movements, but feels as if she is primarily constipated at this time. Associated nausea vomiting and a fever of 100.3 yesterday at home. Denies inability to pass flatus. Problem: Crohn's disease with a extensive surgical history History: Per patient I have considered the following differential diagnoses: Crohn's flare, bowel obstruction, constipation Plan: The patient does have some obstructive symptoms, sh does struggle with constipation, we will obtain a CT scan with IV and oral contrast. Giving IV fluid antiemetic and morphine. She could also be having a Crohn's flare, we will obtain inflammatory markers with her screening labs. I have independently reviewed the following tests: Labs: Slight leukocytosis with left shift, not anemic, ESR 28, no electrolyte abnormality, CRP 0.97, not CT abdomen and pelvis: Pending of the time sign out Differential Diagnosis Differential Diagnoses: The differential diagnosis associated with the presentation includes See medical decision-making Admission/Observation Consideration of admission/observation: Escalation of care including admission/observation considered Lab Data MDM Lab Attestation statement: I reviewed the patient's lab results. 06/28/25 03:56 06/28/25 03:56 Labs: Lab Results 06/28/25 Range/Units 03:56 WBC 11.7 H (4.8-10.8) X10*3/uL RBC 4.30 (4.20-5.50) X10*6/uL Hgb 11.7 L (12.0-16.0) g/dl Hct 36.1 L (37.0-47.0) % MCV 84.0 (80.0-98.0) fL MCH 27.2 (27.0-33.0) pg MCHC 32.4 (31.0-35.0) g/dl RDW 15.5 (11.0-16.0) % Plt Count 186 (160-400) X10*3/uL MPV 12.0 (9.4-12.3) fL Immature Gran % (Auto) 0.4 (0.0-0.4) % Neut % (Auto) 79.9 H (45-73) % Lymph % (Auto) 11.2 L (20-40) % Clark % (Auto) 7.4 (2-11) % Eos % (Auto) 0.8 (0-4) % Baso % (Auto) 0.3 (0-2) % Lymph # (Auto) 1.3 (1.2-4.9) X10*3/uL Clark # (Auto) 0.9 (0.1-1.2) X10*3/uL Eos # (Auto) 0.1 (0.0-0.4) X10*3/uL Baso # (Auto) 0.0 (0.0-0.2) X10*3/uL Abs Immat Gran (auto) 0.05 H (0.00-0.03) X10*3/uL Absolute Neuts (auto) 9.3 H (2.0-8.3) x10*3/uL Absolute Nucleated RBC 0.000 (0.0-0.012) X10*3/uL Nucleated RBC % (auto) 0.0 (0.0-0.2) /100WBC ESR 28 H (0-20) MM/HR Sodium 140 (135-145) mmol/L Potassium 3.5 (3.3-5.1) mmol/L Chloride 109 H (96-108) mmol/L Carbon Dioxide 23 (22-29) mmol/L Anion Gap 12 (12-20) BUN 16 (9-16) mg/dL Creatinine 0.76 (0.5-1.4) mg/dL Estim Creat Clear Calc 81.9 Estimated GFR > 60 Random Glucose 101 (60-115) mg/dL Calcium 8.9 (8.4-10.2) mg/dL Magnesium 1.9 (1.6-2.6) mg/dL Total Bilirubin 0.2 (0.0-1.0) mg/dL AST 19 (5-31) U/L ALT 7 (0-31) U/L Alkaline Phosphatase 80 (39-117) U/L C-Reactive Protein 0.97 H (< or = 0.50) mg/dL Total Protein 7.3 (6.5-8.0) g/dL Albumin 4.2 (3.5-5.0) g/dL Lipase 31 (8-78) U/L Beta HCG, Quant < 2 mIU/mL Discharge Plan Discharge Clinical Impression: Abdominal pain Qualifiers: Abdominal location: generalized Qualified Code(s): R10.84 - Generalized abdominal pain Crohn's disease Qualifiers: Gastrointestinal tract location: small intestine Digestive disease complication type: with rectal bleeding Qualified Code(s): K50.011 - Crohn's disease of small intestine with rectal bleeding Patient Disposition: Admitted As Inpatient Interventions: Admission Worksheet (ED) Last Done: 06/28/25 13:35 Discharge Date/Time: 06/28/25 14:37
--- OUTSIDE RECORDS SUMMARY | 2025-06-28 04:01 | XMS_ITS | Clinical Summary ---
Author Organization [facility] ity Address [address] [place] [address] Care Team Providers Care Director Of Corporate Marketing Name Role Phone Macy Washburn NP Primary [...] age to complete this topic Care Teams Director Of Corporate Marketing Relationship Specialty Start Date End Date Macy Washburn NP [address] [place] [address] [phone] PCP - General 03/12/05
--- OUTSIDE RECORDS SUMMARY | 2025-06-28 04:01 | XMS_ITS | Clinical Summary ---
Demographics Address [address] [place] [address] Mobile Phone Home Phone Preferred Language Ukrainian; Castilian Marital Status /Civil Union Druze Affiliation Unknown Race Other Race Ethnic Group or Author Organization [facility] Address [address] [address] Phone Support Name Relationship Address Phone Judie Nunez Personal Relationship Unknown [phone] Minesh Munson Personal Relationship [address] [place] [address] Care Team Providers Care Gas Pit Worker Name Role Phone Leesa Steven MD Primary [...] topic Medical Devices Not on file Insurance [facility] C3 ACO [address] [place] [address] C3 ACO C3 [employer]CO [employer] [place] [address] [address] [address] [address] [place] [address] [place] [address] C3 ACO Care Teams Gas Pit Worker Relationship Specialty Start Date End Date Leesa Steven MD [address] [place] [id number] PCP - General Internal Medicine 12/18/20 Additional Source Comments The information contained in this document represents components of the legal health record. It is not the complete legal health record.[facility]
[2025-06-28 04:04] LABS: MANUAL DIFF FLAG NO
[2025-06-28 04:07] LABS: Hematocrit 36.1 % (37.0-47.0); Hemoglobin 11.7 g/dl (12.0-16.0); Imm Gran Abs Auto 0.05 X10*3/uL (0.00-0.03); Imm Gran Pct Auto 0.4 % (0.0-0.4); Lymphocytes Absolute Auto 1.3 X10*3/uL (1.2-4.9); Mean Corpuscular HGB Conc 32.4 g/dl (31.0-35.0); Mean Corpuscular Hemoglobin 27.2 pg (27.0-33.0); Mean Corpuscular Volume 84.0 fL (80.0-98.0); NRBC Abs Auto 0.000 X10*3/uL (0.0-0.012); NRBC Pct Auto 0.0 /100WBC (0.0-0.2); Platelet Count 186 X10*3/uL (160-400); Red Blood Count 4.30 X10*6/uL (4.20-5.50); White Blood Count 11.7 X10*3/uL (4.8-10.8)
[2025-06-28 04:26] LABS: Alanine Aminotransferase 7 U/L (0-31); Albumin Level 4.2 g/dL (3.5-5.0); Alkaline Phosphatase 80 U/L (39-117); Anion Gap 12 (12-20); Aspartate Amino Transferase 19 U/L (5-31); Blood Urea Nitrogen 16 mg/dL (9-16); Calcium 8.9 mg/dL (8.4-10.2); Carbon Dioxide 23 mmol/L (22-29); Chloride 109 mmol/L (96-108); Creatinine Clr Calc Pharmacy 81.9; Estimated Glomerular Filt Rate > 60; Lipase 31 U/L (8-78); Magnesium 1.9 mg/dL (1.6-2.6); Potassium 3.5 mmol/L (3.3-5.1); Sodium 140 mmol/L (135-145); Total Protein 7.3 g/dL (6.5-8.0)
[2025-06-28] MEDS: iohexoL 350 MG/ML 100 ML INFUS..BTL IV (07:46)
--- NOTE | 2025-06-28 09:01 | PM.IMHP ---
History of Present Illness Date of Service: 06/28/25 Chief Complaint: abdominal pain 54-year-old female with a history of Crohn's disease on Xeljanz and Stelara with prior colon resection, subsequent development of a colonic stricture status post lysis of adhesions with the resection of colorectal anastomosis and new colorectal anastomosis [place] [facility] [place], ileostomy take down 2022, chronic constipation secondary to chronic opiate therapy, Patient presented with abdominal pain for the last 2 weeks. Pain is diffuse, has become somewhat focal to mid abdomen. She noted distension over the last few daysand has had bloody stools. She reported fever, nausea and vomiting. Abdominal CT in the ER showing Crohn's flare, no obvious abscess. No fever leukocytosis, mildly elevated blood pressure. In the ER she was given IV fluids, Reglan, morphine, IV Solu-Medrol. She will be placed on observation for Crohn's flare. Review of Systems Review of Systems: Denies any recent fever chills or decrease in appetite respiratory denies any shortness of breath or cough cardiovascular denied chest pain gastrointestinal see HPI genitourinary denies any dysuria frequency or hematuria musculoskeletal denies any joint pain or swelling neuropsych denies any weakness or seizures all other systems reviewed are negative [facility] Medical History Urge incontinence Stricture of colon Anxiety Sleep apnea Asthma GERD (gastroesophageal reflux disease) Pulmonary embolism Crohn's disease PTSD (post-traumatic stress disorder) Hyperlipidemia Hemorrhagic cyst of ovary Kidney stones Depression Iron deficiency anemia Rheumatoid arthritis Migraine Cancer HTN (hypertension) Surgical History History of esophagogastroduodenoscopy (EGD) History of colon resection History of colon resection Hx of dilation and curettage Hx of cystoscopy Hx of cystoscopy Hx of colonoscopy (~10/2018) Hx of endoscopy Social History Household Members: None Housing: Apartment Are you a primary child care teacher to a significant other at home: No Do you presently have visiting nurse or other home services: No (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) Alcohol intake: never Patient Tobacco Use Status: Former Tobacco user Tobacco use type: Cigarette Cigarettes Per Day: 1 Years Smoked: 10 e-Cigarette/Vaping Use: Former Use Second Hand Smoke Exposure: No Substance Use Type: Marijuana Advance Directives: Yes Advance Directives on File: Yes Advance Directives Date on File: 02/13/24 Do you have a plan to hurt others: No Plan service: No Current occupational status: unemployed and disabled Sexual orientation: Straight/Heterosexual Meds Allergies Allergy/AdvReac Type Severity Reaction Status Date / Time aspirin (ASA) Allergy Intermediate RASH Verified 07/08/25 09:32 azathioprine (From IMURAN) Allergy Intermediate PANCREATIC Verified 07/08/25 09:32 INFLAMMATION ibuprofen (IBUPROFEN) Allergy Intermediate TOLD NOT Verified 07/08/25 09:32 TO TAKE levofloxacin (From LEVAQUIN) Allergy Mild YEAST Verified 07/08/25 09:32 INFECTIONS Active Medications: Current Medications Acetaminophen (Acetaminophen 325 Mg Tablet) 650 mg PO Q6H PRN PRN Reason: Pain, Mild 1-3,fever,headache Calcium Carbonate (Calcium Carbonate 750 Mg Tab.Chew) 750 mg PO Q4H PRN PRN Reason: Heartburn Hydromorphone HCl (Hydromorphone Hcl 1 Mg/Ml Syringe) 0.5 mg IVPUSH Q4H PRN; Protocol PRN Reason: Pain, Severe (Pain Scale 7-10) Metronidazole (Flagyl) 500 mg in 100 mls @ 100 mls/hr IV ONCE ONE Stop: 06/28/25 09:36 Lactated Ringer's (Lr) 1,000 mls @ 80 mls/hr IVCONT .[id number] JUANCHO Magnesium Hydroxide (Milk Of Magnesia 30 Ml Oral.Susp) 30 ml PO DAILY PRN PRN Reason: Constipation Melatonin (Melatonin 3 Mg Tablet) 6 mg PO BEDTIME PRN PRN Reason: Insomnia Ondansetron HCl (Ondansetron Hcl 4 Mg/2 Ml Vial) 4 mg IVPUSH Q8H PRN PRN Reason: Nausea and Vomiting Oxycodone HCl (Oxycodone Hcl Immed Release 5 Mg Tablet) 5 mg PO Q6H PRN PRN Reason: Pain, Moderate(Pain Scale 4-6) Sodium Chloride (0.9 % Sodium Chloride Flush 3 Ml Syringe) 3 ml IVFLUSH QSHIFT [facility] Home Medications ?Medication ?Instructions ?Recorded ?Confirmed ?Last Taken ?Type docusate sodium 100 mg capsule 1 cap PO BID PRN Constipation 07/06/28/25 03/15/25 History montelukast 10 mg tablet 1 tab PO BEDTIME 03/22/21 06/28/25 06/27/25 History multivitamin 1 tab PO DAILY 03/22/21 06/28/25 06/27/25 History budesonide-formoterol HFA 160 2 puff PO BID 09/08/21 06/28/25 06/27/25 History mcg-4.5 mcg/actuation aerosol inhaler (Symbicort) zolpidem 5 mg tablet 5 mg PO BEDTIME PRN insomnia 12/17/23 06/28/25 03/15/25 History acetaminophen 325 mg tablet 650 mg PO Q4H PRN Pain 02/11/24 06/28/25 03/15/25 History (Tylenol) carboxymethylcellulose sodium 1 % 1 drp ophthalmic (eye) BID PRN Dry 02/11/24 06/28/25 03/15/25 History eye liquid gel drops Eye(S) topiramate 100 mg tablet 100 mg PO BID 02/11/24 06/28/25 06/27/25 History amlodipine 2.5 mg tablet 2.5 mg PO DAILY Hypertension 03/16/25 06/28/25 03/15/25 History sertraline 25 mg tablet (Zoloft) 25 mg PO DAILY 03/16/25 06/28/25 06/27/25 History ustekinumab 90 mg/mL subcutaneous 90 mg subcut Q4W 03/16/25 06/28/25 04/18/25 History syringe (Stelara) albuterol sulfate 90 mcg/actuation 2 puff inhalation Q4H PRN 04/23/25 06/28/25 Unknown History aerosol inhaler Shortness Of Breath buspirone 5 mg tablet 5 mg PO DAILY 04/23/25 06/28/25 06/27/25 History calcium 600 mg (as 1 tab PO BID 04/23/25 06/28/25 06/27/25 History carbonate)-vitamin D3 10 mcg (400 unit) tablet cholecalciferol (vitamin D3) 50 50 mcg PO DAILY 04/23/25 06/28/25 06/27/25 History mcg (2,000 unit) tablet (Vitamin D3) hydroxyzine HCl 10 mg tablet 10 mg PO TID PRN Anxiety 04/23/25 06/28/25 Unknown History melatonin 5 mg tablet 10 mg PO BEDTIME 04/23/25 06/28/25 06/27/25 History methotrexate sodium 2.5 mg tablet 25 mg PO FR@0900 04/23/25 06/28/25 Unknown History ondansetron 4 mg disintegrating 8 mg PO Q8H PRN nausea and vomiting 04/23/25 06/28/25 Unknown History tablet tofacitinib 10 mg tablet (Xeljanz) 10 mg PO BID 04/23/25 06/28/25 06/27/25 History fluticasone propionate 50 1 spray intranasal DAILY 06/28/25 06/28/25 Unknown History mcg/actuation nasal spray,suspension pantoprazole 40 mg tablet,delayed 40 mg PO DAILY@0630 06/28/25 06/28/25 06/27/25 History release (Protonix) Physical Exam Vital Signs and Narrative: Vital Signs: Last Vital Signs Temp 97.3 F 06/28/25 08:42 Pulse 70 06/28/25 08:42 Resp 14 06/28/25 08:42 BP 166/89 H 06/28/25 08:42 Pulse Ox 98 06/28/25 08:42 O2 Del Method Room Air 06/28/25 08:42 BMI result Body Mass Index 29.2 Appearing in no acute distress head is normocephalic atraumatic eyes pupils are PERRLA sclera is anicteric mouth throat mucous membranes are intact and moist neck is supple no lymphadenopathy, no JVD noted lung sounds are clear to auscultation heart regular rate rhythm, clear S1, S2 positive bowel sounds, abdomen is soft, nontender neuro patient is alert x3, no focal deficits Results Labs 07/03/25 09:41 07/05/25 17:20 Labs: Laboratory Results - last 24 hr 06/28/25 03:56 MCV 84.0 MCH 27.2 MCHC 32.4 RDW 15.5 Plt Count 186 MPV 12.0 Immature Gran % (Auto) 0.4 Neut % (Auto) 79.9 H Lymph % (Auto) 11.2 L [place] % (Auto) 7.4 Eos % (Auto) 0.8 Baso % (Auto) 0.3 Lymph # (Auto) 1.3 [place] # (Auto) 0.9 Eos # (Auto) 0.1 Baso # (Auto) 0.0 Abs Immat Gran (auto) 0.05 H Absolute Neuts (auto) 9.3 H Absolute Nucleated RBC 0.000 Nucleated RBC % (auto) 0.0 ESR 28 H Anion Gap 12 Estim Creat Clear Calc 81.9 Estimated GFR > 60 Random Glucose 101 Calcium 8.9 Magnesium 1.9 Total Bilirubin 0.2 AST 19 ALT 7 Alkaline Phosphatase 80 C-Reactive Protein 0.97 H Total Protein 7.3 Albumin 4.2 Lipase 31 Beta HCG, Quant < 2 Imaging Radiologist's Impressions: Impressions Abdomen/Pelvis CT 06/28/25 07:39 IMPRESSION: Acute inflammatory processes/Crohn's flare, rectosigmoid and likely distal ileal loops. No intestinal obstruction pattern. No gross peritoneal fluid collections. Reactive mesenteric lymphadenopathy. Probably acute to subacute omental fat necrosis, left lower peritoneal cavity. Fleischner guidelines were followed. Electronically signed by: Ajay Ramirez MD 06/28/2025 08:11 AM [facility] Assessment and Plan (1) Crohn's disease: Qualifiers: Digestive disease complication type: with rectal bleeding Gastrointestinal tract location: small intestine Qualified Code(s): K50.011 - Crohn's disease of small intestine with rectal bleeding Status: Acute Plan 54 year old women admitted with Crohns flare Crohns flare Abd ct showing active inflammatory process, no intestinal obstruction, no gross peritoneal fluid collections, reactive mesenteric lymphadenopathy on Stelara and Xeljanz Prednisone 40 mg daily then taper for outpatient GI consultation Empiric IV Zosyn IV fluids Check stool studies and C diff Pain management clear liquid diet Bloody stool Secondary to Crohn's flare Stable H&H Monitor CBC daily Hypertension Stable blood pressure Continue amlodipine Asthma No exacerbation Continue albuterol as needed Depression Continue home medications Hx of DVT Hold eliquis due to bloody stool GERD PPI DVT prophylaxis with pneumatic compression boots Full code Quality Stroke Does the patient have a stroke diagnosis?: No VTE Prior VTE?: No VTE Risk Level:: Medical - moderate - high VTE Device Contraindication: N/A - Device Ordered VTE Drug Contraindication: Treatment Not Indicated
--- NOTE | 2025-06-28 10:49 | PHA.MEDREC ---
Addendum entered by Arlette Wayne [facility] 06/28/25 11:20: reviewed, changed amlodipine from PRN to JUANCHO. Original Note: Pharmacy Consult ? Medication Reconciliation Pharmacy has completed the medication reconciliation. Spoke with pt and she confirmed her medications. PT confirmed she is not taking the Gabapentin due to the side effects of that med, she is not taking Linzess, stating she was not aware her Dr had prescribed that; calling [facility] they confirmed pt got a 30 day supply of that 06/09, she is taking Amlodipine 2.5mg tabs once daily as needed for Hypertension, she still taking Methotrexate 25mg tabs once a week on Fridays; pt took it last 2 weeks ago, she gets Stelara Q4W from our facility; pt states she got it in May some time but insurance now requiring referral in order to cover more shots, pt taking Xeljanz BID and states she gets from [facility]; I called pt pharmacies ([facility], [facility] and [facility]) and [facility] confirmed pt last got that 04/27 for 30 days and pt states she takes Zolpidem 5mg tabs as needed for sleep; pt has not gotten that since 02/15 for QTY 30 for 30 days. Pt confirmed her Eliquis 2.5mg tab 1 BID and states stopped taking that herself in the last 2 weeks due to pt not feeling well and if she needed to get surgery she wouldn't have to worry about waiting to get it done.
[2025-06-28] MEDS: metroNIDAZOLE/NS 500 MG/100 ML PIGGYBACK 100 MG IV (10:52)
[2025-06-28] MEDS: Lactated Ringers 1,000 ML 80 ML IVCONT ×2 (10:52→22:25)
--- NOTE | 2025-06-28 12:20 | PC.NURSE ---
Pt reporting pain in previous left upper AC IV, flushing well, no blood return noted, however IV removed at this time, new IV placed at this time
[2025-06-28 13:03] LABS: CDiff Gene PCR NEGATIVE (Negative)
--- NOTE | 2025-06-28 13:40 | MHC.CM.PN ---
CM RECEIVED MESSAGE TO CALL [facility] ([facility]- [phone]) REGARDING CASE. THIS CM RETURNED CALL AND LEFT MESSAGE [facility] NOT AVAILABLE.
--- NOTE | 2025-06-28 13:55 | PM.GICN ---
History of Present Illness Data of Consult Service Date: 06/28/25 Primary Care Provider: Leesa Wasserman MD HPI Reason for consult: ?crohns flare 54-year-old female with a history of Crohn's disease on Xeljanz and Stelara (multiple agents before this) with prior colon resection, subsequent development of a colonic stricture status post lysis of adhesions with the resection of colorectal anastomosis and new colorectal anastomosis with loop ileostomy at [facility] [place] 04[place], ileostomy take down 2022, chronic constipation secondary to chronic opiate therapy who I am seeing for abdominal pain. Patient said she noted 2 weeks of diffuse crampy 10/10 abdominal pain starting in the lower left abdomen, without exacerbating or relieving factors. She reported fever, nausea and vomiting-non bloody. She also noted more looser stools, but no blood or melena. Imaging: CT- reactive lymphadenopathy,coltiis and ileitis, omental fat necrosis, LABS:WCC and CRP mildly elevated Review of Systems Review of Systems: Constitutional : No Weight loss, No Fever, No Chills ENT/Mouth : No sore throat, No Rhinorrhea Eyes: No Swelling, No Redness Cardiovascular : No Chest Pain, No SOB, No Edema Respiratory : No Cough, No Sputum, No Wheezing Gastrointestinal : see HPI Genitourinary : NO Dysuria, No Urinary Frequency, No Hematuria, No Urgency Musculoskeletal : + joint pain, No Myalgias, No Joint Swelling Skin : No Skin Lesions, No rash Neuro : No Weakness, No Numbness, No Dizziness, No Headache Psych : No Anxiety/Panic, No Depression Heme/Lymph: No Bruising, No Lymphadenopathy Endocrine : No Polyuria, No Polydipsia All other systems reviewed and are negative. [facility] Past Medical History Medical History (Updated 06/28/25 @ 09:06 by Danielle Rucker NP) Urge incontinence Stricture of colon Anxiety Sleep apnea Asthma GERD (gastroesophageal reflux disease) Pulmonary embolism Crohn's disease PTSD (post-traumatic stress disorder) Hyperlipidemia Hemorrhagic cyst of ovary Kidney stones Depression Iron deficiency anemia Rheumatoid arthritis Migraine Cancer HTN (hypertension) Surgical History Surgical History (Updated 06/17/25 @ 10:35 by Adelina Blake MD) History of esophagogastroduodenoscopy (EGD) History of colon resection History of colon resection Hx of dilation and curettage Hx of cystoscopy Hx of cystoscopy Hx of colonoscopy (~10/2018) Hx of endoscopy Social History Social History Household Members: None Housing: Apartment Are you a primary senior care manager to a significant other at home: No Do you presently have visiting nurse or other home services: No (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) Alcohol intake: never Patient Tobacco Use Status: Former Tobacco user Tobacco use type: Cigarette Cigarettes Per Day: 1 Years Smoked: 10 Smoked in Last 30 Days: No e-Cigarette/Vaping Use: Former Use Second Hand Smoke Exposure: No Use of substances other than those prescribed or required for medical reasons: Yes Substance Use Type: Marijuana Substance Use Frequency: Daily Advance Directives: Yes Advance Directives on File: Yes Advance Directives Date on File: 02/13/24 Nutrition Risks: No Nutritional Risk Patient : No service: No Current occupational status: unemployed and disabled Sexual orientation: Straight/Heterosexual Meds Allergies Allergy/AdvReac Type Severity Reaction Status Date / Time aspirin (ASA) Allergy Intermediate RASH Verified 06/28/25 02:58 azathioprine (From IMURAN) Allergy Intermediate PANCREATIC Verified 06/28/25 02:58 INFLAMMATION ibuprofen (IBUPROFEN) Allergy Intermediate TOLD NOT Verified 06/28/25 02:58 TO TAKE levofloxacin (From LEVAQUIN) Allergy Mild YEAST Verified 06/28/25 02:58 INFECTIONS Active Medications: Current Medications Acetaminophen (Acetaminophen 325 Mg Tablet) 650 mg PO Q6H PRN PRN Reason: Pain, Mild 1-3,fever,headache Albuterol Sulfate (Albuterol Sulfate 90 Mcg 8 Gm Inhaler) 2 puff INHALE Q4H PRN PRN Reason: Shortness of Breath Amlodipine Besylate (Amlodipine Besylate 2.5 Mg Tablet) 2.5 mg PO DAILY [facility]; Protocol Buspirone HCl (Buspirone Hcl 5 Mg Tablet) 5 mg PO DAILY [facility] Calcium Carbonate (Calcium Carbonate 750 Mg Tab.Chew) 750 mg PO Q4H PRN PRN Reason: Heartburn Fluticasone Propionate (Fluticasone Propionate Nasal 16 Gm [place]) 1 spray NOSTRIL-B DAILY [facility] Fluticasone/Vilanterol (Fluticasone/Vilanterol 200/25 Blst.W.Dev) 1 puff INHALE RDAILY [facility] Hydromorphone HCl (Hydromorphone Hcl 1 Mg/Ml Syringe) 0.5 mg IVPUSH Q4H PRN; Protocol PRN Reason: Pain, Severe (Pain Scale 7-10) Hydroxyzine HCl (Hydroxyzine Hcl 10 Mg Tablet) 10 mg PO TID PRN PRN Reason: Anxiety Lactated Ringer's (Lr) 1,000 mls @ 80 mls/hr IVCONT .[id number] [facility] Last Admin: 06/28/25 10:52 Dose: 80 mls/hr Piperacillin Sod/Tazobactam (Sod 4.5 gm/ Sodium Chloride) 100 mls @ 200 mls/hr IV Q6H [facility] Last Infusion: 06/28/25 10:53 Dose: Infused Magnesium Hydroxide (Milk Of Magnesia 30 Ml Oral.Susp) 30 ml PO DAILY PRN PRN Reason: Constipation Melatonin (Melatonin 3 Mg Tablet) 6 mg PO BEDTIME PRN PRN Reason: Insomnia Melatonin (Melatonin 3 Mg Tablet) 9 mg PO BEDTIME JUANCHO Montelukast Sodium (Montelukast Sodium 10 Mg Tablet) 10 mg PO BEDTIME [facility] Multivitamins/Vitamin C (Multivitamin Tablet) 1 tab PO DAILY [facility] Omeprazole (Omeprazole 20 Mg Capsule.Dr) 20 mg PO DAILY@0630 [facility] Ondansetron HCl (Ondansetron Hcl 4 Mg/2 Ml Vial) 4 mg IVPUSH Q8H PRN PRN Reason: Nausea and Vomiting Last Admin: 06/28/25 09:54 Dose: 4 mg Oxycodone HCl (Oxycodone Hcl Immed Release 5 Mg Tablet) 5 mg PO Q6H PRN PRN Reason: Pain, Moderate(Pain Scale 4-6) Prednisone (Prednisone 20 Mg Tablet) 40 mg PO DAILY [facility] Risperidone (Risperidone 1 Mg Tablet) 1 mg PO BID [facility] Sertraline HCl (Sertraline Hcl 25 Mg Tablet) 25 mg PO DAILY [facility] Sodium Chloride (0.9 % Sodium Chloride Flush 3 Ml Syringe) 3 ml IVFLUSH QSHIFT [facility] Topiramate (Topiramate 100 Mg Tablet) 100 mg PO BID [facility] Zolpidem Tartrate (Zolpidem Tartrate 5 Mg Tablet) 5 mg PO BEDTIME PRN PRN Reason: Insomnia Home Medications ?Medication ?Instructions ?Recorded ?Confirmed ?Last Taken ?Type docusate sodium 100 mg capsule 1 cap PO BID PRN Constipation 03/22/21 06/28/25 03/15/25 History montelukast 10 mg tablet 1 tab PO BEDTIME 03/22/21 06/28/25 06/27/25 History multivitamin 1 tab PO DAILY 03/22/21 06/28/25 06/27/25 History budesonide-formoterol HFA 160 2 puff PO BID 09/08/21 06/28/25 06/27/25 History mcg-4.5 mcg/actuation aerosol inhaler (Symbicort) zolpidem 5 mg tablet 5 mg PO BEDTIME PRN insomnia 12/17/23 06/28/25 03/15/25 History acetaminophen 325 mg tablet 650 mg PO Q4H PRN Pain 02/11/24 06/28/25 03/15/25 History (Tylenol) carboxymethylcellulose sodium 1 % 1 drp ophthalmic (eye) BID PRN Dry 02/11/24 06/28/25 03/15/25 History eye liquid gel drops Eye(S) topiramate 100 mg tablet 100 mg PO BID 02/11/24 06/28/25 06/27/25 History amlodipine 2.5 mg tablet 2.5 mg PO DAILY Hypertension 03/16/25 06/28/25 03/15/25 History sertraline 25 mg tablet (Zoloft) 25 mg PO DAILY 03/16/25 06/28/25 06/27/25 History ustekinumab 90 mg/mL subcutaneous 90 mg subcut Q4W 03/16/25 06/28/25 04/18/25 History syringe (Stelara) albuterol sulfate 90 mcg/actuation 2 puff inhalation Q4H PRN 04/23/25 06/28/25 Unknown History aerosol inhaler Shortness Of Breath buspirone 5 mg tablet 5 mg PO DAILY 04/23/25 06/28/25 06/27/25 History calcium 600 mg (as 1 tab PO BID 04/23/25 06/28/25 06/27/25 History carbonate)-vitamin D3 10 mcg (400 unit) tablet cholecalciferol (vitamin D3) 50 50 mcg PO DAILY 04/23/25 06/28/25 06/27/25 History mcg (2,000 unit) tablet (Vitamin D3) hydroxyzine HCl 10 mg tablet 10 mg PO TID PRN Anxiety 04/23/25 06/28/25 Unknown History melatonin 5 mg tablet 10 mg PO BEDTIME 04/23/25 06/28/25 06/27/25 History methotrexate sodium 2.5 mg tablet 25 mg PO FR@0900 04/23/25 06/28/25 Unknown History ondansetron 4 mg disintegrating 8 mg PO Q8H PRN nausea and vomiting 04/23/25 06/28/25 Unknown History tablet tofacitinib 10 mg tablet (Xeljanz) 10 mg PO BID 04/23/25 06/28/25 06/27/25 History fluticasone propionate 50 1 spray intranasal DAILY 06/28/25 06/28/25 Unknown History mcg/actuation nasal spray,suspension pantoprazole 40 mg tablet,delayed 40 mg PO DAILY@0630 06/28/25 06/28/25 06/27/25 History release (Protonix) Physical Exam Exam: Exam: EXAM: GENERAL: The patient is well developed and nontoxic. VITAL SIGNS:see workflow HEENT: Nonicteric sclerae, PERRLA, EOMI. Oropharynx clear. Moist mucous membranes. Conjunctivae appear well perfused. No thyroid mass. CHEST: Chest wall is nontender. HEART: Regular rate and rhythm without murmurs. LUNGS: Clear to auscultation bilaterally. ABDOMEN: Soft, positive bowel sounds, tender lower abdomen, no organomegaly.no flank tenderness- scars noted SKIN: No rash, no excessive bruising, petechiae, or purpura. NEUROLOGIC: Cranial nerves II-XII intact without motor/sensory deficit. Psych: normal affect Vital Signs: Vital Signs: Last Vital Signs Temp 97.4 F 06/28/25 13:08 Pulse 66 06/28/25 13:08 Resp 14 06/28/25 13:08 BP 132/66 06/28/25 13:08 Pulse Ox 96 06/28/25 13:08 O2 Del Method Room Air 06/28/25 13:08 BMI result Body Mass Index 29.2 Results Labs 06/28/25 03:56 06/28/25 03:56 Labs: Short CBC 06/28/25 Range/Units 03:56 WBC 11.7 H (4.8-10.8) X10*3/uL Hgb 11.7 L (12.0-16.0) g/dl Hct 36.1 L (37.0-47.0) % Plt Count 186 (160-400) X10*3/uL BMP 06/28/25 03:56 Sodium 140 Potassium 3.5 Chloride 109 H Carbon Dioxide 23 BUN 16 Creatinine 0.76 Calcium 8.9 Liver Function 06/28/25 Range/Units 03:56 Total Bilirubin 0.2 (0.0-1.0) mg/dL AST 19 (5-31) U/L ALT 7 (0-31) U/L Alkaline Phosphatase 80 (39-117) U/L Albumin 4.2 (3.5-5.0) g/dL Imaging CT scan - abdomen: Attestation: I personally reviewed and interpreted this imaging study as follows: (hyperattenuated parts of colon, patchy) Assessment and Plan (1) Crohn's disease: Qualifiers: Digestive disease complication type: with rectal bleeding Gastrointestinal tract location: small intestine Qualified Code(s): K50.011 - Crohn's disease of small intestine with rectal bleeding Status: Acute Plan 1/ Suspected flare of crohsn, ddx: infectious colitis, sub therapeutic stelara PLAN: 1/ ABX e.g ceph and flagy for 2 w/ solumedrol 20 mg BID, can transition to PO after 48 hr 2/ consider checking stelara levels and antibodies before next shot, other option is to record changer to stelera. Procedures Date of Service Date of Service: 06/28/25
[2025-06-28 14:19] LABS: E. coli EAEC Not Detected (Not Detect.); E. coli EPEC Not Detected (Not Detect.); E. coli ETEC Not Detected (Not Detect.); E. coli STEC Not Detected (Not Detect.); Shigella sp./EIEC Not Detected (Not Detect.)
[2025-06-28] MEDS: oxyCODONE HCl Immed Release 5 MG TABLET PO (14:57)
[2025-06-28 20:35] LABS: Appearance Urine Clear; Glucose Urine UA Negative (Negative); PH 6.5 (5.0-9.0); Specific Gravity - Urine 1.015 (1.005-1.025); UMIC TRIGGER UACC YES
[2025-06-29 03:30] VITALS: BP 103/62; PULSE 69; RESP 18; TEMP 36.6; O2SAT 99
[2025-06-29] MEDS: oxyCODONE HCl Immed Release 5 MG TABLET PO ×3 (03:45→20:10)
--- NOTE | 2025-06-29 05:42 | PC.NURSE ---
Pt seen on bed alert and oriented at the start of the shift, still c/o nausea and abd pain, prn Zofran and Dilaudid IV given with good effect, meds tolerated, slept well after, ambu ad justin to the BR and reported loose stool.
[2025-06-29 06:15] LABS: Anion Gap 13 (12-20); Blood Urea Nitrogen 10 mg/dL (9-16); Calcium 8.8 mg/dL (8.4-10.2); Carbon Dioxide 24 mmol/L (22-29); Chloride 108 mmol/L (96-108); Creatinine Clr Calc Pharmacy 86.6; Estimated Glomerular Filt Rate > 60; Hematocrit 33.2 % (37.0-47.0); Hemoglobin 10.6 g/dl (12.0-16.0); Mean Corpuscular HGB Conc 31.9 g/dl (31.0-35.0); Mean Corpuscular Hemoglobin 26.9 pg (27.0-33.0); Mean Corpuscular Volume 84.3 fL (80.0-98.0); NRBC Abs Auto 0.000 X10*3/uL (0.0-0.012); NRBC Pct Auto 0.0 /100WBC (0.0-0.2); Platelet Count 175 X10*3/uL (160-400); Potassium 3.5 mmol/L (3.3-5.1); Red Blood Count 3.94 X10*6/uL (4.20-5.50); Sodium 141 mmol/L (135-145); White Blood Count 7.7 X10*3/uL (4.8-10.8)
[2025-06-29 07:23] VITALS: BP 121/70; PULSE 59; RESP 16; TEMP 36.1; O2SAT 100
[2025-06-29] MEDS: Lactated Ringers 1,000 ML 80 ML IVCONT ×2 (11:07→22:41)
--- NOTE | 2025-06-29 11:46 | MHC.CM.PN ---
pt lives alone has a check examiner has transport home when dcd dc plan home n/s
[2025-06-29 15:28] VITALS: BP 113/55; PULSE 62; RESP 14; TEMP 36; O2SAT 96
--- NOTE | 2025-06-29 17:13 | HO.PM.IMPN ---
Subjective Subjective Date of Service: 06/29/25 Interval History: Patient states she is unable to tolerate any oral diet, hence we will advance diet as tolerated Given poor steroids absorption in the setting of Crohn's flare and chronic diarrhea we will switch p.o. steroids to IV steroids GI following Physical Exam Exam: Exam: General: AOx3, no acute distress Resp: CTA bilaterally CVS: S1, S2, RRR GI: +BS, no distention, diffuse upper abd tenderness Skin: Warm, dry Extremities: No edema Psych: Anxious affect Vital Signs: Vital Signs: Last Vital Signs Temp 96.8 F 06/29/25 15:28 Pulse 62 06/29/25 15:28 Resp 14 06/29/25 15:28 BP 113/55 L 06/29/25 15:28 Pulse Ox 96 06/29/25 15:28 O2 Del Method Room Air 06/29/25 15:28 BMI result Body Mass Index 29.3 Objective Data Active Medications Acetaminophen (Acetaminophen 325 Mg Tablet) 650 mg PO Q6H PRN PRN Reason: Pain, Mild 1-3,fever,headache Albuterol Sulfate (Albuterol Sulfate 90 Mcg 8 Gm Inhaler) 2 puff INHALE Q4H PRN PRN Reason: Shortness of Breath Amlodipine Besylate (Amlodipine Besylate 2.5 Mg Tablet) 2.5 mg PO DAILY REPLACED BY [facility]; Protocol Last Admin: 06/29/25 08:33 Dose: 2.5 mg Documented By: MIKHAIL Buspirone HCl (Buspirone Hcl 5 Mg Tablet) 5 mg PO DAILY REPLACED BY [facility] Last Admin: 06/29/25 08:33 Dose: 5 mg Documented By: MIKHAIL Calcium Carbonate (Calcium Carbonate 750 Mg Tab.Chew) 750 mg PO Q4H PRN PRN Reason: Heartburn Fluticasone Propionate (Fluticasone Propionate Nasal 16 Gm [place]) 1 spray NOSTRIL-B DAILY REPLACED BY [facility] Last Admin: 06/29/25 08:33 Dose: Not Given Documented By: MIKHAIL Non-Admin Reason: Med Not Available Fluticasone/Vilanterol (Fluticasone/Vilanterol 200/25 Blst.W.Dev) 1 puff INHALE RDAILY REPLACED BY [facility] Last Admin: 06/29/25 08:01 Dose: Not Given Documented By: KENNY Non-Admin Reason: pharmacy called for med Hydromorphone HCl (Hydromorphone Hcl 1 Mg/Ml Syringe) 0.5 mg IVPUSH Q4H PRN; Protocol PRN Reason: Pain, Severe (Pain Scale 7-10) Last Admin: 06/29/25 08:26 Dose: 0.5 mg Documented By: MIKHAIL Hydroxyzine HCl (Hydroxyzine Hcl 10 Mg Tablet) 10 mg PO TID PRN PRN Reason: Anxiety Lactated Ringer's (Lr) 1,000 mls @ 80 mls/hr IVCONT .[id number] REPLACED BY [facility] Last Admin: 06/29/25 11:07 Dose: 80 mls/hr Documented By: MIKHAIL Piperacillin Sod/Tazobactam (Sod 4.5 gm/ Sodium Chloride) 100 mls @ 200 mls/hr IV Q6H REPLACED BY [facility] Last Infusion: 06/29/25 14:35 Dose: Infused Documented By: MIKHAIL Magnesium Hydroxide (Milk Of Magnesia 30 Ml Oral.Susp) 30 ml PO DAILY PRN PRN Reason: Constipation Melatonin (Melatonin 3 Mg Tablet) 6 mg PO BEDTIME PRN PRN Reason: Insomnia Melatonin (Melatonin 3 Mg Tablet) 9 mg PO BEDTIME REPLACED BY [facility] Last Admin: 06/28/25 20:01 Dose: 9 mg Documented By: ZEINAB Methylprednisolone Sodium Succinate (Methylprednisolone Sod Succ 40 Mg/Ml Vial) 20 mg IVPUSH Q12H REPLACED BY [facility] Last Admin: 06/29/25 14:00 Dose: 20 mg Documented By: MIKHAIL Montelukast Sodium (Montelukast Sodium 10 Mg Tablet) 10 mg PO BEDTIME REPLACED BY [facility] Last Admin: 06/28/25 20:00 Dose: 10 mg Documented By: ZEINAB Multivitamins/Vitamin C (Multivitamin Tablet) 1 tab PO DAILY REPLACED BY [facility] Last Admin: 06/29/25 08:33 Dose: 1 tab Documented By: MIKHAIL Omeprazole (Omeprazole 20 Mg Capsule.) 20 mg PO DAILY@0630 REPLACED BY [facility] Last Admin: 06/29/25 05:40 Dose: 20 mg Documented By: ZEINAB Ondansetron HCl (Ondansetron Hcl 4 Mg/2 Ml Vial) 4 mg IVPUSH Q8H PRN PRN Reason: Nausea and Vomiting Last Admin: 06/29/25 08:29 Dose: 4 mg Documented By: MIKHAIL Oxycodone HCl (Oxycodone Hcl Immed Release 5 Mg Tablet) 5 mg PO Q6H PRN PRN Reason: Pain, Moderate(Pain Scale 4-6) Last Admin: 06/29/25 14:10 Dose: 5 mg Documented By: MIKHAIL Risperidone (Risperidone 1 Mg Tablet) 1 mg PO BID REPLACED BY [facility] Last Admin: 06/29/25 08:33 Dose: 1 mg Documented By: MIKHAIL Sertraline HCl (Sertraline Hcl 25 Mg Tablet) 25 mg PO DAILY REPLACED BY [facility] Last Admin: 06/29/25 08:33 Dose: 25 mg Documented By: MIKHAIL Sodium Chloride (0.9 % Sodium Chloride Flush 3 Ml Syringe) 3 ml IVFLUSH QSHIFT REPLACED BY [facility] Last Admin: 06/29/25 15:20 Dose: Not Given Documented By: MIKHAIL Non-Admin Reason: IV Running Topiramate (Topiramate 100 Mg Tablet) 100 mg PO BID REPLACED BY [facility] Last Admin: 06/29/25 08:33 Dose: 100 mg Documented By: MIKHAIL Zolpidem Tartrate (Zolpidem Tartrate 5 Mg Tablet) 5 mg PO BEDTIME PRN PRN Reason: Insomnia Last Admin: 06/28/25 20:00 Dose: 5 mg Documented By: ZEINAB Labs 06/29/25 04:58 06/29/25 04:58 Labs: Laboratory Results - last 24 hr 06/28/25 06/29/25 20:20 04:58 MCV 84.3 MCH 26.9 L MCHC 31.9 RDW 15.4 Plt Count 175 MPV 12.0 Absolute Nucleated RBC 0.000 Nucleated RBC % (auto) 0.0 Anion Gap 13 Estim Creat Clear Calc 86.6 Estimated GFR > 60 Random Glucose 95 Calcium 8.8 Urine Color Yellow Urine Appearance Clear Urine pH 6.5 Ur Specific [place] 1.015 Urine Protein Negative Urine Glucose (UA) Negative Urine Ketones Trace Urine Blood Small (1+) H Urine Nitrite Negative Ur Leukocyte Esterase Negative Urine RBC 3-5 H Urine WBC 0-5 Ur Squamous Epith Cells 0-2 Urine Bacteria None Seen Hyaline Casts 0-2 Microbiology Microbiology Results: Microbiology 06/28/25 09:07 Blood Culture - Preliminary Blood - Venous No growth after 24 hours. 06/28/25 09:07 Blood Culture - Preliminary Blood - Venous No growth after 24 hours. Assessment and Plan (1) Crohn's colitis: Status: Acute Assessment and Plan: 54-year-old female with a past medical history of Crohn's disease, rheumatoid arthritis, VT on Eliquis, MARISOL on nocturnal CPAP, asthma, GERD, chronic constipation, mood disorder, hypertension, recently discharged from the hospital on 03/20/2025 after being treated for Crohn's flare with steroids; presented to the hospital on with a chief complaint of abdominal pain. Likely rx resistant Chrons flare. Acute on chronic flare of Crohn's proctocolitis secondary to resistant Crohn's flare Mild nonsignificant hematochezia 2/2 chrons flare Partial left hemicolectomy Failed multiple trials of biologics Patient was recently admitted and discharged on prednisone, however she continues to have subacute chronic generalized abdominal pain, mild hematochezia, chronic diarrhea with hemodynamic stability. Per GI, which has seen the patient, she has had a very complicated GI, and she has been trialed on many biologic agents, Stelara every 4 weeks. She has had at least 2 bowel surgeries including removal of a portion of the left colon with a temporary colostomy and more recently another surgery with removal of a portion of the colon and a temporary ileostomy, which was subsequently reversed. Due to all of her surgeries, she does have chronic pain and fairly frequent loose stools. However, more recently she has been having increasing diarrhea and increasing pain. During this admission, GI and C diff panel was negative. Patient did not respond to p.o. prednisone and given multiple failed prior biologics, she is being started on IV steroids with a GI input Hx of DVT--continue home Eliquis Hyperlipidemia. Anemia. Sleep apnea. Asthma. Hypertension: Continued home amlodipine, no changes in home meds Mood disorder PTSD Depression Continue home Risperdal, Topamax, gabapentin, sertraline, Klonopin MARISOL: Continued home nocturnal CPAP with good effect Rheumatoid arthritis: Patient on methotrexate every Friday Patient was on home Eliquis for VTE prophylaxis with good effect This note is constructed using voice recognition software. While every effort has been made to ensure accuracy, small boat engineer errors may have been included. Patient needs further hospitalization for recurrent acute on chronic flare with intolerance to multiple medications andsubspecialists Quality Stroke Does the patient have a stroke diagnosis?: No VTE Prior VTE?: No VTE Risk Level:: Medical - moderate - high VTE Device Contraindication: N/A - Device Ordered VTE Drug Contraindication: Treatment Not Indicated
[2025-06-29 19:29] VITALS: BP 126/63; PULSE 64; RESP 16; TEMP 36.2; O2SAT 98
[2025-06-29 22:47] VITALS: RESP 16
[2025-06-30 04:18] VITALS: BP 126/66; PULSE 64; RESP 18; TEMP 36.3; O2SAT 98
[2025-06-30 07:33] VITALS: BP 114/57; PULSE 54; RESP 18; TEMP 36.3; O2SAT 96
--- NOTE | 2025-06-30 10:00 | PC.NURSE ---
Patient c/o nausea, zofran not effective, message sent to the provider, new medication ordered
--- NOTE | 2025-06-30 11:27 | HO.PM.IMPN ---
Subjective Subjective Date of Service: 06/30/25 Interval History: Patient seen and examined at bedside this morning, continue with nausea vomiting, unable to tolerate p.o.. Per GI plans on flexible sigmoidoscopy tomorrow. Review of Systems Review of Systems: Yes all other systems are reviewed and are negative Physical Exam Exam: Exam: General: AxOx3, No acute distress Head: AT/NC ENT: Moist mucous membranes Neck: supple CVS; RRR, S1 S2 normal Lungs: Clear bilateral breath sounds, no wheezes or crackles Abd: Soft, tender, non distended Ext: No edema and no calf tenderness MSK: moving all 4 limbs Skin: No cyanosis or edema Psych: Cooperative with exam Neurology: no focal deficit Vital Signs: Vital Signs: Last Vital Signs Temp 97.4 F 06/30/25 07:33 Pulse 54 06/30/25 07:33 Resp 18 06/30/25 07:33 BP 114/57 L 06/30/25 07:33 Pulse Ox 96 06/30/25 07:33 O2 Del Method Room Air 06/30/25 07:33 BMI result Body Mass Index 29.3 Objective Data Active Medications Acetaminophen (Acetaminophen 325 Mg Tablet) 650 mg PO Q6H PRN PRN Reason: Pain, Mild 1-3,fever,headache Albuterol Sulfate (Albuterol Sulfate 90 Mcg 8 Gm Inhaler) 2 puff INHALE Q4H PRN PRN Reason: Shortness of Breath Amlodipine Besylate (Amlodipine Besylate 2.5 Mg Tablet) 2.5 mg PO DAILY [facility]; Protocol Last Admin: 06/30/25 08:59 Dose: 2.5 mg Documented By: JASKARAN Buspirone HCl (Buspirone Hcl 5 Mg Tablet) 5 mg PO DAILY [facility] Last Admin: 06/30/25 08:59 Dose: 5 mg Documented By: JASKARAN Calcium Carbonate (Calcium Carbonate 750 Mg Tab.Chew) 750 mg PO Q4H PRN PRN Reason: Heartburn Fluticasone Propionate (Fluticasone Propionate Nasal 16 Gm [place]) 1 spray NOSTRIL-B DAILY [facility] Last Admin: 06/30/25 11:14 Dose: 1 spray Documented By: JASKARAN Fluticasone/Vilanterol (Fluticasone/Vilanterol 200/25 Blst.W.Dev) 1 puff INHALE RDAILY [facility] Last Admin: 06/30/25 08:12 Dose: Not Given Documented By: TALIA Non-Admin Reason: Patient Refused Hydromorphone HCl (Hydromorphone Hcl 1 Mg/Ml Syringe) 0.5 mg IVPUSH Q4H PRN; Protocol PRN Reason: Pain, Severe (Pain Scale 7-10) Last Admin: 06/30/25 09:05 Dose: 0.5 mg Documented By: JASKARAN Hydroxyzine HCl (Hydroxyzine Hcl 10 Mg Tablet) 10 mg PO TID PRN PRN Reason: Anxiety Piperacillin Sod/Tazobactam (Sod 4.5 gm/ Sodium Chloride) 100 mls @ 200 mls/hr IV Q6H [facility] Last Infusion: 06/30/25 10:03 Dose: Infused Documented By: JASKARAN Magnesium Hydroxide (Milk Of Magnesia 30 Ml Oral.Susp) 30 ml PO DAILY PRN PRN Reason: Constipation Melatonin (Melatonin 3 Mg Tablet) 6 mg PO BEDTIME PRN PRN Reason: Insomnia Melatonin (Melatonin 3 Mg Tablet) 9 mg PO BEDTIME [facility] Last Admin: 06/29/25 20:11 Dose: 9 mg Documented By: JOSE ANTONIO Methylprednisolone Sodium Succinate (Methylprednisolone Sod Succ 40 Mg/Ml Vial) 30 mg IVPUSH Q12H [facility] Metoclopramide HCl (Metoclopramide Hcl 10 Mg/2 Ml Vial) 5 mg IVPUSH Q6H PRN PRN Reason: Nausea and Vomiting Last Admin: 06/30/25 11:14 Dose: 5 mg Documented By: JASKARAN Montelukast Sodium (Montelukast Sodium 10 Mg Tablet) 10 mg PO BEDTIME [facility] Last Admin: 06/29/25 20:11 Dose: 10 mg Documented By: JOSE ANTONIO Multivitamins/Vitamin C (Multivitamin Tablet) 1 tab PO DAILY [facility] Last Admin: 06/30/25 08:59 Dose: 1 tab Documented By: JASKARAN Omeprazole (Omeprazole 20 Mg Capsule.) 20 mg PO DAILY@0630 [facility] Last Admin: 06/30/25 05:32 Dose: 20 mg Documented By: JOSE ANTONIO Ondansetron HCl (Ondansetron Hcl 4 Mg/2 Ml Vial) 4 mg IVPUSH Q8H PRN PRN Reason: Nausea and Vomiting Last Admin: 06/30/25 04:30 Dose: 4 mg Documented By: JOSE ANTONIO Oxycodone HCl (Oxycodone Hcl Immed Release 5 Mg Tablet) 5 mg PO Q6H PRN PRN Reason: Pain, Moderate(Pain Scale 4-6) Last Admin: 06/29/25 20:10 Dose: 5 mg Documented By: JOSE ANTONIO Risperidone (Risperidone 1 Mg Tablet) 1 mg PO BID [facility] Last Admin: 06/30/25 08:59 Dose: 1 mg Documented By: JASKARAN Sertraline HCl (Sertraline Hcl 25 Mg Tablet) 25 mg PO DAILY [facility] Last Admin: 06/30/25 08:59 Dose: 25 mg Documented By: JASKARAN Sodium Chloride (0.9 % Sodium Chloride Flush 3 Ml Syringe) 3 ml IVFLUSH QSHIFT [facility] Last Admin: 06/30/25 07:40 Dose: Not Given Documented By: JASKARAN Non-Admin Reason: IV Running Topiramate (Topiramate 100 Mg Tablet) 100 mg PO BID [facility] Last Admin: 06/30/25 08:59 Dose: 100 mg Documented By: JASKARAN Zolpidem Tartrate (Zolpidem Tartrate 5 Mg Tablet) 5 mg PO BEDTIME PRN PRN Reason: Insomnia Last Admin: 06/29/25 20:15 Dose: 5 mg Documented By: JOSE ANTONIO Labs 06/29/25 04:58 06/29/25 04:58 Microbiology Microbiology Results: Microbiology 06/28/25 09:07 Blood Culture - Preliminary Blood - Venous No growth after 48 hours. 06/28/25 09:07 Blood Culture - Preliminary Blood - Venous No growth after 48 hours. Assessment and Plan (1) Crohn's disease: Status: Acute Plan 54-year-old female with a past medical history of Crohn's disease, rheumatoid arthritis, VT on Eliquis, MARISOL on nocturnal CPAP, asthma, GERD, chronic constipation, mood disorder, hypertension, recently discharged from the hospital on 03/20/2025 after being treated for Crohn's flare with steroids; presented to the hospital on with a chief complaint of abdominal pain. Likely rx resistant Chrons flare. at this time with 7-8 episodes of diarrhea. Plans on flex sigmoidoscopy on 07/01. 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 All pertinent clinical documents, images and labs were reviewed. DISCLAIMER: This document was created using voice recognition software. Any mistakes in the prescription are unintentional. An attempt was made to focus for accuracy, but to expedite availability, some errors may persist. Please contact with any need for correction or further clarification Total time managing care of this patient today: 55 minutes. Quality Stroke Does the patient have a stroke diagnosis?: No VTE Prior VTE?: No VTE Risk Level:: Medical - moderate - high VTE Device Contraindication: N/A - Device Ordered VTE Drug Contraindication: Treatment Not Indicated
--- NOTE | 2025-06-30 12:58 | HO.ANESPROP2 ---
Documented by User: Chante Jones NP 06/30/25 13:05 HPI - Anesthesia Eval Consult details Narrative: 54 yr ol female for sigmoidoscopy flexible Admitted with Crohns flare: Abd ct showing active inflammatory process, no intestinal obstruction, no gross peritoneal fluid collections, reactive mesenteric lymphadenopathy, on Stelara and Xeljanz, treating with IV steroid. H/O PE: on eliquis MARISOL s/p colonoscopy with MAC 10/2024 [facility] Active Problems Active Problems: All Active Problems (Updated 06/28/25 @ 09:06 by Danielle Rucker NP) Abdominal pain (Acute) Crohn's disease (Acute) Proctocolitis (Acute) Bloody diarrhea (Acute) Crohn's colitis (Acute) Diarrhea (Acute) Abdominal pain (Acute) Fatigue (Acute) Epidermal inclusion cyst (Acute) Chronic constipation (Acute) UTI (urinary tract infection) (Acute) Syncope, vasovagal (Acute) Chronic headache (Acute) Asthma (Acute) Vitamin D deficiency (Acute) Crohn's disease (Acute) GERD (gastroesophageal reflux disease) (Acute) Urge incontinence (Acute) Depression (Acute) Past Medical History Medical History Urge incontinence Stricture of colon Anxiety Sleep apnea Asthma GERD (gastroesophageal reflux disease) Pulmonary embolism Crohn's disease PTSD (post-traumatic stress disorder) Hyperlipidemia Hemorrhagic cyst of ovary Kidney stones Depression Iron deficiency anemia Rheumatoid arthritis Migraine Cancer HTN (hypertension) Family History Family history of problems with anesthesia: No Surgical History Surgical History History of esophagogastroduodenoscopy (EGD) History of colon resection History of colon resection Hx of dilation and curettage Hx of cystoscopy Hx of cystoscopy Hx of colonoscopy (~10/2018) Hx of endoscopy History of Problems with Anesthesia: No Social History Social History Household Members: None Housing: Apartment Are you a primary attending ambulatory care to a significant other at home: No Do you presently have visiting nurse 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 If so, by whom?: No Do you feel safe in your current relationship?: No Current Relationship Is there a partner from a previous relationship who is making you feel unsafe now?: No Are you made to feel afraid or neglected: No Advance Directives: Yes Advance Directives on File: Yes Advance Directives Date on File: 02/13/24 Do you have a plan to hurt others: No Plan Recently lost weight without trying: Yes How much weight loss: 14-23 pounds Eating poorly because of decreased appetite: Yes Nutrition screen score: 5 Nutrition Risks: No Nutritional Risk Patient : No : No Poor oral hygiene: No service: No Current occupational status: unemployed and disabled Sexual orientation: Straight/Heterosexual Meds Allergies Allergy/AdvReac Type Severity Reaction Status Date / Time aspirin (ASA) Allergy Intermediate RASH Verified 06/28/25 02:58 azathioprine (From IMURAN) Allergy Intermediate PANCREATIC Verified 06/28/25 02:58 INFLAMMATION ibuprofen (IBUPROFEN) Allergy Intermediate TOLD NOT Verified 06/28/25 02:58 TO TAKE levofloxacin (From LEVAQUIN) Allergy Mild YEAST Verified 06/28/25 02:58 INFECTIONS Active Medications: Current Medications Acetaminophen (Acetaminophen 325 Mg Tablet) 650 mg PO Q6H PRN PRN Reason: Pain, Mild 1-3,fever,headache Albuterol Sulfate (Albuterol Sulfate 90 Mcg 8 Gm Inhaler) 2 puff INHALE Q4H PRN PRN Reason: Shortness of Breath Amlodipine Besylate (Amlodipine Besylate 2.5 Mg Tablet) 2.5 mg PO DAILY [facility]; Protocol Last Admin: 06/30/25 08:59 Dose: 2.5 mg Buspirone HCl (Buspirone Hcl 5 Mg Tablet) 5 mg PO DAILY [facility] Last Admin: 06/30/25 08:59 Dose: 5 mg Calcium Carbonate (Calcium Carbonate 750 Mg Tab.Chew) 750 mg PO Q4H PRN PRN Reason: Heartburn Fluticasone Propionate (Fluticasone Propionate Nasal 16 Gm Rufus) 1 spray NOSTRIL-B DAILY [facility] Last Admin: 06/30/25 11:14 Dose: 1 spray Fluticasone/Vilanterol (Fluticasone/Vilanterol 200/25 Blst.W.Dev) 1 puff INHALE RDAILY [facility] Last Admin: 06/30/25 08:12 Dose: Not Given Hydromorphone HCl (Hydromorphone Hcl 1 Mg/Ml Syringe) 0.5 mg IVPUSH Q4H PRN; Protocol PRN Reason: Pain, Severe (Pain Scale 7-10) Last Admin: 06/30/25 09:05 Dose: 0.5 mg Hydroxyzine HCl (Hydroxyzine Hcl 10 Mg Tablet) 10 mg PO TID PRN PRN Reason: Anxiety Piperacillin Sod/Tazobactam (Sod 4.5 gm/ Sodium Chloride) 100 mls @ 200 mls/hr IV Q6H [facility] Last Infusion: 06/30/25 10:03 Dose: Infused Magnesium Hydroxide (Milk Of Magnesia 30 Ml Oral.Susp) 30 ml PO DAILY PRN PRN Reason: Constipation Melatonin (Melatonin 3 Mg Tablet) 6 mg PO BEDTIME PRN PRN Reason: Insomnia Melatonin (Melatonin 3 Mg Tablet) 9 mg PO BEDTIME [facility] Last Admin: 06/29/25 20:11 Dose: 9 mg Methylprednisolone Sodium Succinate (Methylprednisolone Sod Succ 40 Mg/Ml Vial) 30 mg IVPUSH Q12H [facility] Last Admin: 06/30/25 12:36 Dose: 30 mg Metoclopramide HCl (Metoclopramide Hcl 10 Mg/2 Ml Vial) 5 mg IVPUSH Q6H PRN PRN Reason: Nausea and Vomiting Last Admin: 06/30/25 11:14 Dose: 5 mg Montelukast Sodium (Montelukast Sodium 10 Mg Tablet) 10 mg PO BEDTIME [facility] Last Admin: 06/29/25 20:11 Dose: 10 mg Multivitamins/Vitamin C (Multivitamin Tablet) 1 tab PO DAILY [facility] Last Admin: 06/30/25 08:59 Dose: 1 tab Omeprazole (Omeprazole 20 Mg Capsule.Dr) 20 mg PO DAILY@0630 [facility] Last Admin: 06/30/25 05:32 Dose: 20 mg Ondansetron HCl (Ondansetron Hcl 4 Mg/2 Ml Vial) 4 mg IVPUSH Q8H PRN PRN Reason: Nausea and Vomiting Last Admin: 06/30/25 04:30 Dose: 4 mg Oxycodone HCl (Oxycodone Hcl Immed Release 5 Mg Tablet) 5 mg PO Q6H PRN PRN Reason: Pain, Moderate(Pain Scale 4-6) Last Admin: 06/29/25 20:10 Dose: 5 mg Risperidone (Risperidone 1 Mg Tablet) 1 mg PO BID [facility] Last Admin: 06/30/25 08:59 Dose: 1 mg Sertraline HCl (Sertraline Hcl 25 Mg Tablet) 25 mg PO DAILY [facility] Last Admin: 06/30/25 08:59 Dose: 25 mg Sodium Chloride (0.9 % Sodium Chloride Flush 3 Ml Syringe) 3 ml IVFLUSH QSHIFT [facility] Last Admin: 06/30/25 07:40 Dose: Not Given Topiramate (Topiramate 100 Mg Tablet) 100 mg PO BID [facility] Last Admin: 06/30/25 08:59 Dose: 100 mg Zolpidem Tartrate (Zolpidem Tartrate 5 Mg Tablet) 5 mg PO BEDTIME PRN PRN Reason: Insomnia Last Admin: 06/29/25 20:15 Dose: 5 mg Home Medications ?Medication ?Instructions ?Recorded ?Confirmed ?Last Taken ?Type docusate sodium 100 mg capsule 1 cap PO BID PRN Constipation 03/22/21 06/28/25 03/15/25 History montelukast 10 mg tablet 1 tab PO BEDTIME 03/22/21 06/28/25 06/27/25 History multivitamin 1 tab PO DAILY 03/22/21 06/28/25 06/27/25 History budesonide-formoterol HFA 160 2 puff PO BID 09/08/21 06/28/25 06/27/25 History mcg-4.5 mcg/actuation aerosol inhaler (Symbicort) zolpidem 5 mg tablet 5 mg PO BEDTIME PRN insomnia 12/17/23 06/28/25 03/15/25 History acetaminophen 325 mg tablet 650 mg PO Q4H PRN Pain 02/11/24 06/28/25 03/15/25 History (Tylenol) carboxymethylcellulose sodium 1 % 1 drp ophthalmic (eye) BID PRN Dry 02/11/24 06/28/25 03/15/25 History eye liquid gel drops Eye(S) topiramate 100 mg tablet 100 mg PO BID 02/11/24 06/28/25 06/27/25 History amlodipine 2.5 mg tablet 2.5 mg PO DAILY Hypertension 03/16/25 06/28/25 03/15/25 History sertraline 25 mg tablet (Zoloft) 25 mg PO DAILY 03/16/25 06/28/25 06/27/25 History ustekinumab 90 mg/mL subcutaneous 90 mg subcut Q4W 03/16/25 06/28/25 04/18/25 History syringe (Stelara) albuterol sulfate 90 mcg/actuation 2 puff inhalation Q4H PRN 04/23/25 06/28/25 Unknown History aerosol inhaler Shortness Of Breath buspirone 5 mg tablet 5 mg PO DAILY 04/23/25 06/28/25 06/27/25 History calcium 600 mg (as 1 tab PO BID 04/23/25 06/28/25 06/27/25 History carbonate)-vitamin D3 10 mcg (400 unit) tablet cholecalciferol (vitamin D3) 50 50 mcg PO DAILY 04/23/25 06/28/25 06/27/25 History mcg (2,000 unit) tablet (Vitamin D3) hydroxyzine HCl 10 mg tablet 10 mg PO TID PRN Anxiety 04/23/25 06/28/25 Unknown History melatonin 5 mg tablet 10 mg PO BEDTIME 04/23/25 06/28/25 06/27/25 History methotrexate sodium 2.5 mg tablet 25 mg PO FR@0900 04/23/25 06/28/25 Unknown History ondansetron 4 mg disintegrating 8 mg PO Q8H PRN nausea and vomiting 04/23/25 06/28/25 Unknown History tablet tofacitinib 10 mg tablet (Xeljanz) 10 mg PO BID 04/23/25 06/28/25 06/27/25 History fluticasone propionate 50 1 spray intranasal DAILY 06/28/25 06/28/25 Unknown History mcg/actuation nasal spray,suspension pantoprazole 40 mg tablet,delayed 40 mg PO DAILY@0630 06/28/25 06/28/25 06/27/25 History release (Protonix) Exam Height,Weight and Vital Signs: Height 5 ft 3 in Weight 75 kg Last Vital Signs Temp 97.4 F 06/30/25 07:33 Pulse 54 06/30/25 07:33 Resp 18 06/30/25 07:33 BP 114/57 L 06/30/25 07:33 Pulse Ox 96 06/30/25 07:33 O2 Del Method Room Air 06/30/25 07:33 Pertinent Lab Results Pertinent Lab Results: Laboratory Tests 06/28/25 06/28/25 06/28/25 03:56 09:07 10:56 WBC 11.7 H RBC 4.30 Hgb 11.7 L Hct 36.1 L MCV 84.0 MCH 27.2 MCHC 32.4 RDW 15.5 Plt Count 186 MPV 12.0 Immature Gran % (Auto) 0.4 Neut % (Auto) 79.9 H Lymph % (Auto) 11.2 L [place] % (Auto) 7.4 Eos % (Auto) 0.8 Baso % (Auto) 0.3 Lymph # (Auto) 1.3 [place] # (Auto) 0.9 Eos # (Auto) 0.1 Baso # (Auto) 0.0 Abs Immat Gran (auto) 0.05 H Absolute Neuts (auto) 9.3 H Absolute Nucleated RBC 0.000 Nucleated RBC % (auto) 0.0 ESR 28 H Sodium 140 Potassium 3.5 Chloride 109 H Carbon Dioxide 23 Anion Gap 12 BUN 16 Creatinine 0.76 Estim Creat Clear Calc 81.9 Estimated GFR > 60 Random Glucose 101 Lactic Acid 0.4 L Calcium 8.9 Magnesium 1.9 Total Bilirubin 0.2 AST 19 ALT 7 Alkaline Phosphatase 80 C-Reactive Protein 0.97 H Total Protein 7.3 Albumin 4.2 Lipase 31 Beta HCG, Quant < 2 Urine Color Urine Appearance Urine pH Ur Specific [place] Urine Protein Urine Glucose (UA) Urine Ketones Urine Blood Urine Nitrite Ur Leukocyte Esterase Urine RBC Urine WBC Ur Squamous Epith Cells Urine Bacteria Hyaline Casts Stl C. cayetanensis PCR Not Detected Stool Rotavirus A PCR Not Detected Stl Adenov F 40/41 PCR Not Detected Stool Astrovirus (PCR) Not Detected Stool Campylobacter PCR Not Detected Stool Cryptosporidium PCR Not Detected Stl Sh Tox Pr E STEC PCR Not Detected Stool E coli O157 PCR Not applicable Stl Enterotoxigenic E PCR Not Detected Stool EPEC (PCR) Not Detected Stool EAEC (PCR) Not Detected Stl E. histolytica PCR Not Detected Stool Giardia Lamblia PCR Not Detected Stl P. shigelloides PCR Not Detected Stool Salmonella PCR Not Detected Stool Sapovirus (PCR) Not Detected Stl Shigella/EIEC PCR Not Detected St Y.enterocolitica PCR Not Detected Stool Vibrio (PCR) Not Detected Stl Vibrio cholerae PCR Not Detected Stl Norovirus GI/GII PCR Not Detected C. difficile Tox B Gene NEGATIVE 06/28/25 06/29/25 20:20 04:58 WBC 7.7 RBC 3.94 L Hgb 10.6 L Hct 33.2 L MCV 84.3 MCH 26.9 L MCHC 31.9 RDW 15.4 Plt Count 175 MPV 12.0 Immature Gran % (Auto) Neut % (Auto) Lymph % (Auto) [place] % (Auto) Eos % (Auto) Baso % (Auto) Lymph # (Auto) [place] # (Auto) Eos # (Auto) Baso # (Auto) Abs Immat Gran (auto) Absolute Neuts (auto) Absolute Nucleated RBC 0.000 Nucleated RBC % (auto) 0.0 ESR Sodium 141 Potassium 3.5 Chloride 108 Carbon Dioxide 24 Anion Gap 13 BUN 10 Creatinine 0.72 Estim Creat Clear Calc 86.6 Estimated GFR > 60 Random Glucose 95 Lactic Acid Calcium 8.8 Magnesium Total Bilirubin AST ALT Alkaline Phosphatase C-Reactive Protein Total Protein Albumin Lipase Beta HCG, Quant Urine Color Yellow Urine Appearance Clear Urine pH 6.5 Ur Specific [place] 1.015 Urine Protein Negative Urine Glucose (UA) Negative Urine Ketones Trace Urine Blood Small (1+) H Urine Nitrite Negative Ur Leukocyte Esterase Negative Urine RBC 3-5 H Urine WBC 0-5 Ur Squamous Epith Cells 0-2 Urine Bacteria None Seen Hyaline Casts 0-2 Stl C. cayetanensis PCR Stool Rotavirus A PCR Stl Adenov F 40/41 PCR Stool Astrovirus (PCR) Stool Campylobacter PCR Stool Cryptosporidium PCR Stl Sh Tox Pr E STEC PCR Stool E coli O157 PCR Stl Enterotoxigenic E PCR Stool EPEC (PCR) Stool EAEC (PCR) Stl E. histolytica PCR Stool Giardia Lamblia PCR Stl P. shigelloides PCR Stool Salmonella PCR Stool Sapovirus (PCR) Stl Shigella/EIEC PCR St Y.enterocolitica PCR Stool Vibrio (PCR) Stl Vibrio cholerae PCR Stl Norovirus GI/GII PCR C. difficile Tox B Gene Narrative Narrative: EKG 02/2025 Vent. Rate : 79 BPM Atrial Rate : 79 BPM P-R Int : 132 ms QRS Dur : 80 ms QT Int : 378 ms P-R-T Axes : -17 0 17 degrees QTcB Int : 433 ms Normal sinus rhythm Normal ECG When compared with ECG of 29-Nov-2024 05:17, No significant change was found Assessment and Plan Final Anesthetic Review Family History of Problems with Anesthesia: No History of Problems with Anesthesia: No Documented by User: Jose Canada MD 07/01/25 14:59 PMFSH Past Medical History Medical History Urge incontinence Stricture of colon Anxiety Sleep apnea Asthma GERD (gastroesophageal reflux disease) Pulmonary embolism Crohn's disease PTSD (post-traumatic stress disorder) Hyperlipidemia Hemorrhagic cyst of ovary Kidney stones Depression Iron deficiency anemia Rheumatoid arthritis Migraine Cancer HTN (hypertension) Functional capacity: independent ambulation Family History Family history of problems with anesthesia: Unobtainable Surgical History Surgical History History of esophagogastroduodenoscopy (EGD) History of colon resection History of colon resection Hx of dilation and curettage Hx of cystoscopy Hx of cystoscopy Hx of colonoscopy (~10/2018) Hx of endoscopy Social History Social History Household Members: None Housing: Apartment Are you a primary attending ambulatory care to a significant other at home: No Do you presently have visiting nurse 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 If so, by whom?: No Do you feel safe in your current relationship?: No Current Relationship Is there a partner from a previous relationship who is making you feel unsafe now?: No Are you made to feel afraid or neglected: No Advance Directives: Yes Advance Directives on File: Yes Advance Directives Date on File: 02/13/24 Do you have a plan to hurt others: No Plan Recently lost weight without trying: Yes How much weight loss: 14-23 pounds Eating poorly because of decreased appetite: Yes Nutrition screen score: 5 Nutrition Risks: No Nutritional Risk Patient : No : No Poor oral hygiene: No service: No Current occupational status: unemployed and disabled Sexual orientation: Straight/Heterosexual Meds Allergies Allergy/AdvReac Type Severity Reaction Status Date / Time aspirin (ASA) Allergy Intermediate RASH Verified 06/28/25 02:58 azathioprine (From IMURAN) Allergy Intermediate PANCREATIC Verified 06/28/25 02:58 INFLAMMATION ibuprofen (IBUPROFEN) Allergy Intermediate TOLD NOT Verified 06/28/25 02:58 TO TAKE levofloxacin (From LEVAQUIN) Allergy Mild YEAST Verified 06/28/25 02:58 INFECTIONS Home Medications ?Medication ?Instructions ?Recorded ?Confirmed ?Last Taken ?Type docusate sodium 100 mg capsule 1 cap PO BID PRN Constipation 03/22/21 06/28/25 03/15/25 History montelukast 10 mg tablet 1 tab PO BEDTIME 03/22/21 06/28/25 06/27/25 History multivitamin 1 tab PO DAILY 03/22/21 06/28/25 06/27/25 History budesonide-formoterol HFA 160 2 puff PO BID 09/08/21 06/28/25 06/27/25 History mcg-4.5 mcg/actuation aerosol inhaler (Symbicort) zolpidem 5 mg tablet 5 mg PO BEDTIME PRN insomnia 12/17/23 06/28/25 03/15/25 History acetaminophen 325 mg tablet 650 mg PO Q4H PRN Pain 02/11/24 06/28/25 03/15/25 History (Tylenol) carboxymethylcellulose sodium 1 % 1 drp ophthalmic (eye) BID PRN Dry 02/11/24 06/28/2503/15/25 History eye liquid gel drops Eye(S) topiramate 100 mg tablet 100 mg PO BID 02/11/24 06/28/25 06/27/25 History amlodipine 2.5 mg tablet 2.5 mg PO DAILY Hypertension 03/16/25 06/28/25 03/15/25 History sertraline 25 mg tablet (Zoloft) 25 mg PO DAILY 03/16/25 06/28/25 06/27/25 History ustekinumab 90 mg/mL subcutaneous 90 mg subcut Q4W 03/16/25 06/28/25 04/18/25 History syringe (Stelara) albuterol sulfate 90 mcg/actuation 2 puff inhalation Q4H PRN 04/23/25 06/28/25 Unknown History aerosol inhaler Shortness Of Breath buspirone 5 mg tablet 5 mg PO DAILY 04/23/25 06/28/25 06/27/25 History calcium 600 mg (as 1 tab PO BID 04/23/25 06/28/25 06/27/25 History carbonate)-vitamin D3 10 mcg (400 unit) tablet cholecalciferol (vitamin D3) 50 50 mcg PO DAILY 04/23/25 06/28/25 06/27/25 History mcg (2,000 unit) tablet (Vitamin D3) hydroxyzine HCl 10 mg tablet 10 mg PO TID PRN Anxiety 04/23/25 06/28/25 Unknown History melatonin 5 mg tablet 10 mg PO BEDTIME 04/23/25 06/28/25 06/27/25 History methotrexate sodium 2.5 mg tablet 25 mg PO FR@0900 04/23/25 06/28/25 Unknown History ondansetron 4 mg disintegrating 8 mg PO Q8H PRN nausea and vomiting 04/23/25 06/28/25 Unknown History tablet tofacitinib 10 mg tablet (Xeljanz) 10 mg PO BID 04/23/25 06/28/25 06/27/25 History fluticasone propionate 50 1 spray intranasal DAILY 06/28/25 06/28/25 Unknown History mcg/actuation nasal spray,suspension pantoprazole 40 mg tablet,delayed 40 mg PO DAILY@0630 06/28/25 06/28/25 06/27/25 History release (Protonix) Exam Exam Date and Time: 07/01/2025 Airway Mallampati Class: II TM Dist: >3cm Neck ROM: Full Heart: normal Lungs: normal Other: n ormal Assessment and Plan Assessment Anesthesia Assessment: Anesthesia Plan Discussed and Chart Reviewed Final Anesthetic Review Family History of Problems with Anesthesia: Unobtainable NPO: Yes ASA Class: II and III Final Preanesthetic Review: No Changes in Pt Med Stat, Meds/Allgs Chart Reviewed, Consent Obtained/Reviewed and Anes Risks/Benef Reviewed Patient Risk: Low Procedure Risk: Low Anesthetic Plan Anesthetic Plan: MAC: Disposition: Standard PACU
--- NOTE | 2025-06-30 13:00 | PC.NURSE ---
Patient c/o being cold in the room, unable to adjust temperature, patient transferred to a different room.
[2025-06-30 15:34] VITALS: BP 147/67; PULSE 62; RESP 14; TEMP 36.3; O2SAT 98
[2025-06-30] MEDS: 0.9 % Sodium Chloride Flush 3 ML SYRINGE IVFLUSH (17:08)
[2025-06-30] MEDS: oxyCODONE HCl Immed Release 5 MG TABLET PO (17:11)
[2025-06-30 19:50] VITALS: BP 130/72; PULSE 62; RESP 18; TEMP 36.2; O2SAT 99
[2025-07-01] VITALS (7 sets, daily range): BP systolic 104–160; BP diastolic 56–80; PULSE 59–78; RESP 16–20; TEMP 36.2–36.7; O2SAT 96–98
[2025-07-01] MEDS: Fluticasone/Vilanterol 200/25 BLST.W.DEV 1 PUFF INHALE (08:00)
[2025-07-01] MEDS: 0.9 % Sodium Chloride Flush 3 ML SYRINGE IVFLUSH ×3 (08:22→20:38)
--- NOTE | 2025-07-01 12:41 | HO.PM.IMPN ---
Subjective Subjective Date of Service: 07/01/25 Interval History: Patient seen examined at bedside this morning, patient awaiting to be taken in the afternoon for flexible sigmoidoscopy, mentions that she persists with loose stools, as well as mild pain. Review of Systems Review of Systems: Yes all other systems are reviewed and are negative Physical Exam Exam: Exam: General: AxOx3, No acute distress Head: AT/NC ENT: Moist mucous membranes Neck: supple CVS; RRR, S1 S2 normal Lungs: Clear bilateral breath sounds, no wheezes or crackles Abd: Soft, tender, non distended Ext: No edema and no calf tenderness MSK: moving all 4 limbs Skin: No cyanosis or edema Psych: Cooperative with exam Neurology: no focal deficit Vital Signs: Vital Signs: Last Vital Signs Temp 97.6 F 07/01/25 07:42 Pulse 73 07/01/25 08:01 Resp 16 07/01/25 08:01 BP 134/80 07/01/25 07:42 Pulse Ox 97 07/01/25 07:42 O2 Del Method Room Air 07/01/25 07:42 BMI result Body Mass Index 29.3 Objective Data Active Medications Acetaminophen (Acetaminophen 325 Mg Tablet) 650 mg PO Q6H PRN PRN Reason: Pain, Mild 1-3,fever,headache Albuterol Sulfate (Albuterol Sulfate 90 Mcg 8 Gm Inhaler) 2 puff INHALE Q4H PRN PRN Reason: Shortness of Breath Amlodipine Besylate (Amlodipine Besylate 2.5 Mg Tablet) 2.5 mg PO DAILY [facility]; Protocol Last Admin: 07/01/25 08:20 Dose: 2.5 mg Documented By: JAUQAN Buspirone HCl (Buspirone Hcl 5 Mg Tablet) 5 mg PO DAILY [facility] Last Admin: 07/01/25 08:19 Dose: 5 mg Documented By: JAQUAN Calcium Carbonate (Calcium Carbonate 750 Mg Tab.Chew) 750 mg PO Q4H PRN PRN Reason: Heartburn Fluticasone Propionate (Fluticasone Propionate Nasal 16 Gm [place]) 1 spray NOSTRIL-B DAILY [facility] Last Admin: 07/01/25 08:19 Dose: 1 spray Documented By: JAQUAN Fluticasone/Vilanterol (Fluticasone/Vilanterol 200/25 Blst.W.Dev) 1 puff INHALE RDAILY [facility] Last Admin: 07/01/25 08:00 Dose: 1 puff Documented By: MELVA Hydromorphone HCl (Hydromorphone Hcl 1 Mg/Ml Syringe) 0.5 mg IVPUSH Q4H PRN; Protocol PRN Reason: Pain, Severe (Pain Scale 7-10) Last Admin: 07/01/25 09:39 Dose: 0.5 mg Documented By: JAQUAN Hydroxyzine HCl (Hydroxyzine Hcl 10 Mg Tablet) 10 mg PO TID PRN PRN Reason: Anxiety Piperacillin Sod/Tazobactam (Sod 4.5 gm/ Sodium Chloride) 100 mls @ 200 mls/hr IV Q6H [facility] Last Infusion: 07/01/25 09:01 Dose: Infused Documented By: JAQUAN Magnesium Hydroxide (Milk Of Magnesia 30 Ml Oral.Susp) 30 ml PO DAILY PRN PRN Reason: Constipation Melatonin (Melatonin 3 Mg Tablet) 6 mg PO BEDTIME PRN PRN Reason: Insomnia Melatonin (Melatonin 3 Mg Tablet) 9 mg PO BEDTIME [facility] Last Admin: 06/30/25 20:52 Dose: 9 mg Documented By: FROILAN Methylprednisolone Sodium Succinate (Methylprednisolone Sod Succ 40 Mg/Ml Vial) 30 mg IVPUSH Q12H [facility] Last Admin: 07/01/25 12:22 Dose: 30 mg Documented By: JAQUAN Metoclopramide HCl (Metoclopramide Hcl 10 Mg/2 Ml Vial) 5 mg IVPUSH Q6H PRN PRN Reason: Nausea and Vomiting Last Admin: 07/01/25 09:37 Dose: 5 mg Documented By: JAQUAN Montelukast Sodium (Montelukast Sodium 10 Mg Tablet) 10 mg PO BEDTIME [facility] Last Admin: 06/30/25 20:52 Dose: 10 mg Documented By: FROILAN Multivitamins/Vitamin C (Multivitamin Tablet) 1 tab PO DAILY [facility] Last Admin: 07/01/25 08:20 Dose: 1 tab Documented By: JAQUAN Omeprazole (Omeprazole 20 Mg Capsule.Dr) 20 mg PO DAILY@0630 [facility] Last Admin: 07/01/25 05:44 Dose: Not Given Documented By: FROILAN Non-Admin Reason: NPO Ondansetron HCl (Ondansetron Hcl 4 Mg/2 Ml Vial) 4 mg IVPUSH Q8H PRN PRN Reason: Nausea and Vomiting Last Admin: 07/01/25 04:06 Dose: 4 mg Documented By: FROILAN Oxycodone HCl (Oxycodone Hcl Immed Release 5 Mg Tablet) 5 mg PO Q6H PRN PRN Reason: Pain, Moderate(Pain Scale 4-6) Last Admin: 06/30/25 17:11 Dose: 5 mg Documented By: RYAN Risperidone (Risperidone 1 Mg Tablet) 1 mg PO BID [facility] Last Admin: 07/01/25 08:19 Dose: 1 mg Documented By: JAQUAN Sertraline HCl (Sertraline Hcl 25 Mg Tablet) 25 mg PO DAILY [facility] Last Admin: 07/01/25 08:19 Dose: 25 mg Documented By: JAQUAN Sodium Biphosphate/Sodium Phosphate (Sodium Phosphate,[place]-Dibasic 133 Ml Enema) 133 ml [place] ONCE PRN PRN Reason: Pre-Op Surgical Prep Sodium Chloride (0.9 % Sodium Chloride Flush 3 Ml Syringe) 3 ml IVFLUSH QSHIFT [facility] Last Admin: 07/01/25 08:22 Dose: 3 ml Documented By: JAQUAN Topiramate (Topiramate 100 Mg Tablet) 100 mg PO BID [facility] Last Admin: 07/01/25 08:20 Dose: 100 mg Documented By: JAQUAN Zolpidem Tartrate (Zolpidem Tartrate 5 Mg Tablet) 5 mg PO BEDTIME PRN PRN Reason: Insomnia Last Admin: 06/29/25 20:15 Dose: 5 mg Documented By: JOSE ANTONIO Labs 06/29/25 04:58 06/29/25 04:58 Microbiology Microbiology Results: Microbiology 06/28/25 09:07 Blood Culture - Preliminary Blood - Venous No growth after 48 hours. 06/28/25 09:07 Blood Culture - Preliminary Blood - Venous No growth after 48 hours. Assessment and Plan (1) Crohn's colitis: Status: Acute (2) Depression: Status: Acute (3) HTN (hypertension): Status: Acute Plan 54-year-old female with a past medical history of Crohn's disease, rheumatoid arthritis, VT on Eliquis, MARISOL on nocturnal CPAP, asthma, GERD, chronic constipation, mood disorder, hypertension, recently discharged from the hospital on 03/20/2025 after being treated for Crohn's flare with steroids; presented to the hospital on with a chief complaint of abdominal pain. Likely rx resistant Chrons flare. at this time with 7-8 episodes of diarrhea. Plans on flex sigmoidoscopy on 07/01. 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 All pertinent clinical documents, images and labs were reviewed. DISCLAIMER: This document was created using voice recognition software. Any mistakes in the prescription are unintentional. An attempt was made to focus for accuracy, but to expedite availability, some errors may persist. Please contact with any need for correction or further clarification Total time managing care of this patient today: 35 minutes. Quality Stroke Does the patient have a stroke diagnosis?: No VTE Prior VTE?: No VTE Risk Level:: Medical - moderate - high VTE Device Contraindication: N/A - Device Ordered VTE Drug Contraindication: Treatment Not Indicated
--- NOTE | 2025-07-01 13:13 | PC.NURSE ---
Surgical prep for flex sig per MD - two fleets back to back - pt tolerated well.
--- NOTE | 2025-07-01 15:19 | MHC.SHP ---
Pre-Procedural Eval Section A - 24 Hr Update-Section A only Date of Service: 07/01/25 The patient is an INPATIENT: Yes Changes since office visit: Yes New Medical Problems, Yes Changes in Medication and Yes Patient answered all questions; No Cold of Flu in the past 2 weeks The patient has been examined within 24 hours of the surgical procedure. The History & Physical has been completed within 30 days and I have reviewed it.: Yes Section B - Complete if H&P > 30 days Chief Complaint: chrons flare Allergies: Allergies Allergy/AdvReac Type Severity Reaction Status Date / Time aspirin (ASA) Allergy Intermediate RASH Verified 06/28/25 02:58 azathioprine (From IMURAN) Allergy Intermediate PANCREATIC Verified 06/28/25 02:58 INFLAMMATION ibuprofen (IBUPROFEN) Allergy Intermediate TOLD NOT Verified 06/28/25 02:58 TO TAKE levofloxacin (From LEVAQUIN) Allergy Mild YEAST Verified 06/28/25 02:58 INFECTIONS Plan Diagnosis/Plan: Change (proceed with flexible sigmoidoscopy) I have reviewed the history and physical and performed a pertinent physical examination on my patient. No changes have occurred unless specified. Time Spent With Patient Time: Total time managing care of this patient today ____ minutes.
--- NOTE | 2025-07-01 16:04 | P.OP_ITS ---
Operative Note Operative Note Date of Service: 07/01/25 Narrative: FLEXIBLE SIGMOIDOSCOPY TO 35 CM WITH BIOPSIES Pre-op diagnosis: Crohn's disease flare with abdominal pain and diarrhea. Post-op diagnosis:? Inactive Croh's disease, Proctitis, Diverticulosis, hemor rhoids Endoscopist:? Libby Palafox MD Anesthesia:?MAC Consent: Indications for the procedure and potential complications of bleeding, perforation, reaction to medications and missed diagnosis were discussed with the patient and informed consent was obtained. Instrument: Olympus GIF mid size upper endoscope Monitoring: Vital signs and clinical assessment, intermittent blood pressure monitoring, continuous EKG monitoring, Pulse oximetry and Carbon Dioxide monitoring were done throughout the procedure. Please see anesthesia flowsheet. Procedure: The patient was placed in the left lateral decubitis position and pre-procedure medications were administered. After a digital rectal examination of the ano-rectum, the video colonoscope was inserted into the rectum and advanced through the colon to 35 cm into the sigmoid colon. The colonoscope was slowly withdrawn in a retrograde panoramic fashion and the colon mucosa was carefully examined including a retroflexed view of the rectum. Findings and interventions are described below. Findings: Sigmoid Colon: Normal appearing mucosa with a few 2-3 mm aphthoid ulcers - biopsies were obtained. Moderate diverticulosis Rectum: Proctitis with focal area of superficial ulcers covered by exudate in the distal 5 cms of the rectum with relatively normal appearing mucosa Ano-rectum: Moderate internal hemorrhoids Colon preparation: Good after copious irrigation. Impression and Post Procedure Diagnosis: Colonoscopy Findings: Normal appearing mucosa in the recto-sigmoid colon with a few 2-3 mm aphthoid ulcers Proctitis in the distal 5 cms of the rectum with focal area of scattered superficial ulcers covered by exudate Moderate diverticulosis seen in the sigmoid colon Moderate hemorrhoids on antegrade exam. Plan: Hydrocortisone cream at bedtime daily for proctitis. Pt has a FU appointment on 08/15/[address] Palafox Colonoscopy in 2 years for Crohn's disease surveillance. Above findings were reviewed with the patient.
[2025-07-01] MEDS: Hydrocortisone 2.5 % Rectal Cr 30 GM TUBE 1 APPL PR (20:37)
[2025-07-01] MEDS: oxyCODONE HCl Immed Release 5 MG TABLET PO (23:28)
[2025-07-02 04:00] VITALS: BP 138/82; PULSE 91; RESP 16; TEMP 36.2; O2SAT 98
[2025-07-02 07:19] VITALS: BP 154/71; PULSE 53; RESP 16; TEMP 36.6; O2SAT 98
[2025-07-02] MEDS: Fluticasone/Vilanterol 200/25 BLST.W.DEV 1 PUFF INHALE (08:01)
[2025-07-02 08:02] VITALS: PULSE 53; RESP 16; O2SAT 98
[2025-07-02] MEDS: 0.9 % Sodium Chloride Flush 3 ML SYRINGE IVFLUSH ×3 (08:36→20:21)
--- NOTE | 2025-07-02 10:47 | P.PNIM_ITS ---
Subjective Subjective Date of Service: 07/02/25 Interval History: Patient seen examined at bedside this morning, patient had flexible sigmoidoscopy done yesterday in the afternoon, finding 2 ulcers and proctitis. Suggested on applying hydrocortisone cream. To follow up in the outpatient setting with GI. Patient states that she feels a little bit improved, however persists with multiple bowel movements and pain. Review of Systems Review of Systems: Yes all other systems are reviewed and are negative Physical Exam 2 Exam: Exam: General: AxOx3, No acute distress Head: AT/NC ENT: Moist mucous membranes Neck: supple CVS; RRR, S1 S2 normal Lungs: Clear bilateral breath sounds, no wheezes or crackles Abd: Soft, tender, non distended Ext: No edema and no calf tenderness MSK: moving all 4 limbs Skin: No cyanosis or edema Psych: Cooperative with exam Neurology: no focal deficit Vital Signs: Vital Signs: Last Vital Signs Temp 97.8 F 07/02/25 07:19 Pulse 53 07/02/25 08:02 Resp 16 07/02/25 08:02 BP 154/71 H 07/02/25 07:19 Pulse Ox 98 07/02/25 07:19 O2 Del Method Room Air 07/02/25 07:19 BMI result Body Mass Index 29.3 Objective Data Active Medications Acetaminophen (Acetaminophen 325 Mg Tablet) 650 mg PO Q6H PRN PRN Reason: Pain, Mild 1-3,fever,headache Last Admin: 07/01/25 20:38 Dose: 650 mg Documented By: CATA Albuterol Sulfate (Albuterol Sulfate 90 Mcg 8 Gm Inhaler) 2 puff INHALE Q4H PRN PRN Reason: Shortness of Breath Amlodipine Besylate (Amlodipine Besylate 2.5 Mg Tablet) 2.5 mg PO DAILY [facility] [place]; Protocol Last Admin: 07/02/25 08:36 Dose: 2.5 mg Documented By: JAQUAN Buspirone HCl (Buspirone Hcl 5 Mg Tablet) 5 mg PO DAILY [facility] [place] Last Admin: 07/02/25 08:37 Dose: 5 mg Documented By: JAQUAN Calcium Carbonate (Calcium Carbonate 750 Mg Tab.Chew) 750 mg PO Q4H PRN PRN Reason: Heartburn Fluticasone Propionate (Fluticasone Propionate Nasal 16 Gm [place]) 1 spray NOSTRIL-B DAILY [facility] [place] Last Admin: 07/02/25 08:36 Dose: 1 spray Documented By: JAQUAN Fluticasone/Vilanterol (Fluticasone/Vilanterol 200/25 Blst.W.Dev) 1 puff INHALE RDAILY [facility] [place] Last Admin: 07/02/25 08:01 Dose: 1 puff Documented By: SELVIN Hydrocortisone (Hydrocortisone 2.5 % Rectal Cr 30 Gm Tube) 1 appl [place] BEDTIME [facility] [place] Last Admin: 07/01/25 20:37 Dose: 1 appl Documented By: CATA Hydromorphone HCl (Hydromorphone Hcl 0.5 Mg/0.5 Ml Syringe) 0.5 mg IVPUSH Q4H PRN; Protocol PRN Reason: Pain, Severe (Pain Scale 7-10) Last Admin: 07/02/25 04:34 Dose: 0.5 mg Documented By: CATA Hydroxyzine HCl (Hydroxyzine Hcl 10 Mg Tablet) 10 mg PO TID PRN PRN Reason: Anxiety Last Admin: 07/02/25 05:21 Dose: 10 mg Documented By: CATA Piperacillin Sod/Tazobactam (Sod 4.5 gm/ Sodium Chloride) 100 mls @ 200 mls/hr IV Q6H [facility] [place] Last Infusion: 07/02/25 05:22 Dose: Infused Documented By: CATA Magnesium Hydroxide (Milk Of Magnesia 30 Ml Oral.Susp) 30 ml PO DAILY PRN PRN Reason: Constipation Melatonin (Melatonin 3 Mg Tablet) 6 mg PO BEDTIME PRN PRN Reason: Insomnia Melatonin (Melatonin 3 Mg Tablet) 9 mg PO BEDTIME [facility] [place] Last Admin: 07/01/25 20:37 Dose: 9 mg Documented By: CATA Methylprednisolone Sodium Succinate (Methylprednisolone Sod Succ 40 Mg/Ml Vial) 30 mg IVPUSH Q12H [facility] [place] Last Admin: 07/01/25 23:25 Dose: 30 mg Documented By: CATA Metoclopramide HCl (Metoclopramide Hcl 10 Mg/2 Ml Vial) 5 mg IVPUSH Q6H PRN PRN Reason: Nausea and Vomiting Last Admin: 07/01/25 09:37 Dose: 5 mg Documented By: JAQUAN Montelukast Sodium (Montelukast Sodium 10 Mg Tablet) 10 mg PO BEDTIME [facility] [place] Last Admin: 07/01/25 20:38 Dose: 10 mg Documented By: CATA Multivitamins/Vitamin C (Multivitamin Tablet) 1 tab PO DAILY [facility] [place] Last Admin: 07/02/25 08:37 Dose: 1 tab Documented By: JAQUAN Naloxone HCl (Naloxone Hcl 0.4 Mg/Ml Vial) 0.04 mg IVPUSH Q5M PRN PRN Reason: Excessive sedation or RR < 8 Omeprazole (Omeprazole 20 Mg Capsule.Dr) 20 mg PO DAILY@0630 [facility] [place] Last Admin: 07/02/25 05:18 Dose: 20 mg Documented By: CATA Ondansetron HCl (Ondansetron Hcl 4 Mg/2 Ml Vial) 4 mg IVPUSH Q8H PRN PRN Reason: Nausea and Vomiting Last Admin: 07/02/25 05:17 Dose: 4 mg Documented By: CATA Oxycodone HCl (Oxycodone Hcl Immed Release 5 Mg Tablet) 5 mg PO Q6H PRN PRN Reason: Pain, Moderate(Pain Scale 4-6) Last Admin: 07/01/25 23:28 Dose: 5 mg Documented By: CATA Risperidone (Risperidone 1 Mg Tablet) 1 mg PO BID [facility] [place] Last Admin: 07/02/25 08:37 Dose: 1 mg Documented By: JAQUAN Sertraline HCl (Sertraline Hcl 25 Mg Tablet) 25 mg PO DAILY [facility] [place] Last Admin: 07/02/25 08:37 Dose: 25 mg Documented By: JAQUAN Sodium Biphosphate/Sodium Phosphate (Sodium Phosphate,[place]-Dibasic 133 Ml Enema) 133 ml [place] ONCE PRN PRN Reason: Pre-Op Surgical Prep Last Admin: 07/01/25 13:12 Dose: 133 ml Documented By: JAQUAN Sodium Chloride (0.9 % Sodium Chloride Flush 3 Ml Syringe) 3 ml IVFLUSH QSHIFT [facility] [place] Last Admin: 07/02/25 08:36 Dose: 3 ml Documented By: JAQUAN Topiramate (Topiramate 100 Mg Tablet) 100 mg PO BID [facility] [place] Last Admin: 07/02/25 08:36 Dose: 100 mg Documented By: JAQUAN Zolpidem Tartrate (Zolpidem Tartrate 5 Mg Tablet) 5 mg PO BEDTIME PRN PRN Reason: Insomnia Last Admin: 07/01/25 20:38 Dose: 5 mg Documented By: CATA Labs 06/29/25 04:58 06/29/25 04:58 Assessment and Plan (1) Crohn's disease: Status: Acute (2) Crohn's colitis: Status: Acute Plan 54-year-old female with a past medical history of Crohn's disease, rheumatoid arthritis, VT on Eliquis, MARISOL on nocturnal CPAP, asthma, GERD, chronic constipation, mood disorder, hypertension, recently discharged from the hospital on 03/20/2025 after being treated for Crohn's flare with steroids; presented to the hospital on with a chief complaint of abdominal pain. Likely rx resistant Chrons flare. at this time with 7-8 episodes of diarrhea. Plans on flex sigmoidoscopy on 07/01. Acute Crohn's proctocolitis secondary to resistant Crohn's flare, status post flexible sigmoidoscopy, with proctitis and distal 5 cm of the rectum with scattered superficial ulcers, moderate hemorrhoids Partial left hemicolectomy Failed multiple trials of biologics -continue w/ pain medications -continue IV methylprednisolone 30mg IV BID, (maximal dose) -continue hydrocortisone suppository q.h.s. 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 All pertinent clinical documents, images and labs were reviewed. DISCLAIMER: This document was created using voice recognition software. Any mistakes in the prescription are unintentional. An attempt was made to focus for accuracy, but to expedite availability, some errors may persist. Please contact with any need for correction or further clarification Total time managing care of this patient today: 35 minutes. Quality Stroke Does the patient have a stroke diagnosis?: No VTE Prior VTE?: No VTE Risk Level:: Medical - moderate - high VTE Device Contraindication: N/A - Device Ordered VTE Drug Contraindication: Treatment Not Indicated
[2025-07-02 15:51] VITALS: BP 116/77; PULSE 65; RESP 18; TEMP 36.7; O2SAT 99
[2025-07-02] MEDS: oxyCODONE HCl Immed Release 5 MG TABLET PO (17:54)
[2025-07-02 20:00] VITALS: BP 114/62; PULSE 64; RESP 18; TEMP 36.6; O2SAT 97
[2025-07-03 03:12] VITALS: BP 169/79; PULSE 84; RESP 17; TEMP 35.9; O2SAT 98
[2025-07-03 03:52] VITALS: BP 146/70
[2025-07-03] MEDS: oxyCODONE HCl Immed Release 5 MG TABLET PO (04:46)
[2025-07-03 07:19] VITALS: BP 138/67; PULSE 50; RESP 18; TEMP 36.4; O2SAT 99
[2025-07-03 07:46] VITALS: PULSE 50; RESP 18; O2SAT 99
[2025-07-03] MEDS: Fluticasone/Vilanterol 200/25 BLST.W.DEV 1 PUFF INHALE (07:46)
[2025-07-03] MEDS: 0.9 % Sodium Chloride Flush 3 ML SYRINGE IVFLUSH (08:20)
[2025-07-03 09:51] LABS: MANUAL DIFF FLAG NO
[2025-07-03 10:00] LABS: Hematocrit 37.8 % (37.0-47.0); Hemoglobin 12.1 g/dl (12.0-16.0); Imm Gran Abs Auto 0.03 X10*3/uL (0.00-0.03); Imm Gran Pct Auto 0.4 % (0.0-0.4); Lymphocytes Absolute Auto 1.5 X10*3/uL (1.2-4.9); Mean Corpuscular HGB Conc 32.0 g/dl (31.0-35.0); Mean Corpuscular Hemoglobin 27.0 pg (27.0-33.0); Mean Corpuscular Volume 84.4 fL (80.0-98.0); NRBC Abs Auto 0.000 X10*3/uL (0.0-0.012); NRBC Pct Auto 0.0 /100WBC (0.0-0.2); Platelet Count 218 X10*3/uL (160-400); Red Blood Count 4.48 X10*6/uL (4.20-5.50); White Blood Count 8.5 X10*3/uL (4.8-10.8)
[2025-07-03] MEDS: oxyCODONE HCl ER 10 MG TAB.ER.12H PO ×2 (10:13→19:47)
[2025-07-03 10:26] LABS: Alanine Aminotransferase 7 U/L (0-31); Albumin Level 4.0 g/dL (3.5-5.0); Alkaline Phosphatase 62 U/L (39-117); Anion Gap 14 (12-20); Aspartate Amino Transferase 11 U/L (5-31); Blood Urea Nitrogen 15 mg/dL (9-16); Calcium 8.8 mg/dL (8.4-10.2); Carbon Dioxide 20 mmol/L (22-29); Chloride 109 mmol/L (96-108); Creatinine Clr Calc Pharmacy 73.4; Estimated Glomerular Filt Rate > 60; Potassium 2.9 mmol/L (3.3-5.1); Sodium 140 mmol/L (135-145); Total Protein 7.0 g/dL (6.5-8.0)
--- NOTE | 2025-07-03 10:50 | P.PNIM_ITS ---
Subjective Subjective Date of Service: 07/03/25 Interval History: Patient seen examined at bedside this morning, patient states that she has been experiencing worsening pain, as well as diarrhea with about 11 episodes today. Mentioned that the hydrocortisone suppository relieved her pain mildly. Review of Systems Review of Systems: Yes all other systems are reviewed and are negative Physical Exam 2 Exam: Exam: General: AxOx3, No acute distress Head: AT/NC ENT: Moist mucous membranes Neck: supple CVS; RRR, S1 S2 normal Lungs: Clear bilateral breath sounds, no wheezes or crackles Abd: Soft, tender, non distended Ext: No edema and no calf tenderness MSK: moving all 4 limbs Skin: No cyanosis or edema Psych: Cooperative with exam Neurology: no focal deficit Vital Signs: Vital Signs: Last Vital Signs Temp 97.6 F 07/03/25 07:19 Pulse 50 07/03/25 07:46 Resp 18 07/03/25 07:46 BP 138/67 07/03/25 07:19 Pulse Ox 99 07/03/25 07:19 O2 Del Method Room Air 07/03/25 07:19 BMI result Body Mass Index 29.3 Objective Data Active Medications Acetaminophen (Acetaminophen 325 Mg Tablet) 650 mg PO Q6H PRN PRN Reason: Pain, Mild 1-3,fever,headache Last Admin: 07/01/25 20:38 Dose: 650 mg Documented By: CATA Albuterol Sulfate (Albuterol Sulfate 90 Mcg 8 Gm Inhaler) 2 puff INHALE Q4H PRN PRN Reason: Shortness of Breath Amlodipine Besylate (Amlodipine Besylate 2.5 Mg Tablet) 2.5 mg PO DAILY [facility]; Protocol Last Admin: 07/03/25 08:19 Dose: 2.5 mg Documented By: JAQUAN Buspirone HCl (Buspirone Hcl 5 Mg Tablet) 5 mg PO DAILY [facility] Last Admin: 07/03/25 08:19 Dose: 5 mg Documented By: JAQUAN Calcium Carbonate (Calcium Carbonate 750 Mg Tab.Chew) 750 mg PO Q4H PRN PRN Reason: Heartburn Fluticasone Propionate (Fluticasone Propionate Nasal 16 Gm [place]) 1 spray NOSTRIL-B DAILY [facility] Last Admin: 07/03/25 08:19 Dose: 1 spray Documented By: JAQUAN Fluticasone/Vilanterol (Fluticasone/Vilanterol 200/25 Blst.W.Dev) 1 puff INHALE RDAILY [facility] Last Admin: 07/03/25 07:46 Dose: 1 puff Documented By: SELVIN Hydrocortisone (Hydrocortisone 100 Mg/60 Ml Enema) 100 mg AR BEDTIME [facility] Last Admin: 07/02/25 20:27 Dose: 100 mg Documented By: CATA Hydromorphone HCl (Hydromorphone Hcl 0.5 Mg/0.5 Ml Syringe) 0.5 mg IVPUSH Q4H PRN; Protocol PRN Reason: Pain, Severe (Pain Scale 7-10) Last Admin: 07/03/25 08:29 Dose: 0.5 mg Documented By: JAQUAN Hydroxyzine HCl (Hydroxyzine Hcl 10 Mg Tablet) 10 mg PO TID PRN PRN Reason: Anxiety Last Admin: 07/03/25 04:49 Dose: 10 mg Documented By: CATA Piperacillin Sod/Tazobactam (Sod 4.5 gm/ Sodium Chloride) 100 mls @ 200 mls/hr IV Q6H [facility] Last Admin: 07/03/25 10:13 Dose: 200 mls/hr Documented By: JAQUAN Potassium Chloride (Potassium Chloride/H20) 10 meq in 100 mls @ 100 mls/hr IV Q1H [facility] Stop: 07/03/25 12:29 Magnesium Hydroxide (Milk Of Magnesia 30 Ml Oral.Susp) 30 ml PO DAILY PRN PRN Reason: Constipation Melatonin (Melatonin 3 Mg Tablet) 6 mg PO BEDTIME PRN PRN Reason: Insomnia Melatonin (Melatonin 3 Mg Tablet) 9 mg PO BEDTIME [facility] Last Admin: 07/02/25 20:24 Dose: 9 mg Documented By: CATA Methylprednisolone Sodium Succinate (Methylprednisolone Sod Succ 40 Mg/Ml Vial) 30 mg IVPUSH Q12H [facility] Last Admin: 07/02/25 23:19 Dose: 30 mg Documented By: CATA Metoclopramide HCl (Metoclopramide Hcl 10 Mg/2 Ml Vial) 5 mg IVPUSH Q6H PRN PRN Reason: Nausea and Vomiting Last Admin: 07/03/25 03:41 Dose: 5 mg Documented By: CATA Montelukast Sodium (Montelukast Sodium 10 Mg Tablet) 10 mg PO BEDTIME [facility] Last Admin: 07/02/25 20:25 Dose: 10 mg Documented By: CATA Multivitamins/Vitamin C (Multivitamin Tablet) 1 tab PO DAILY [facility] Last Admin: 07/03/25 08:19 Dose: 1 tab Documented By: JAQUAN Naloxone HCl (Naloxone Hcl 0.4 Mg/Ml Vial) 0.04 mg IVPUSH Q5M PRN PRN Reason: Excessive sedation or RR < 8 Omeprazole (Omeprazole 20 Mg Capsule.Dr) 20 mg PO DAILY@0630 [facility] Last Admin: 07/03/25 05:39 Dose: 20 mg Documented By: CATA Ondansetron HCl (Ondansetron Hcl 4 Mg/2 Ml Vial) 4 mg IVPUSH Q8H PRN PRN Reason: Nausea and Vomiting Last Admin: 07/02/25 21:27 Dose: 4 mg Documented By: CATA Oxycodone HCl (Oxycodone Hcl Er 10 Mg Tab.Er.12h) 10 mg PO BID [facility] Last Admin: 07/03/25 10:13 Dose: 10 mg Documented By: JAQUAN Potassium Chloride (Potassium Chloride Packet 20 Meq Packet) 40 meq PO ONCE ONE Stop: 07/03/25 17:01 Risperidone (Risperidone 1 Mg Tablet) 1 mg PO BID [facility] Last Admin: 07/03/25 08:20 Dose: 1 mg Documented By: JAQUAN Sertraline HCl (Sertraline Hcl 25 Mg Tablet) 25 mg PO DAILY [facility] Last Admin: 07/03/25 08:19 Dose: 25 mg Documented By: JAQUAN Sodium Biphosphate/Sodium Phosphate (Sodium Phosphate,[place]-Dibasic 133 Ml Enema) 133 ml AR ONCE PRN PRN Reason: Pre-Op Surgical Prep Last Admin: 07/01/25 13:12 Dose: 133 ml Documented By: JAQUAN Sodium Chloride (0.9 % Sodium Chloride Flush 3 Ml Syringe) 3 ml IVFLUSH QSHIFT [facility] Last Admin: 07/03/25 08:20 Dose: 3 ml Documented By: JAQUAN Topiramate (Topiramate 100 Mg Tablet) 100 mg PO BID [facility] Last Admin: 07/03/25 08:19 Dose: 100 mg Documented By: JAQUAN Zolpidem Tartrate (Zolpidem Tartrate 5 Mg Tablet) 5 mg PO BEDTIME PRN PRN Reason: Insomnia Last Admin: 07/02/25 20:24 Dose: 5 mg Documented By: CATA Labs 07/03/25 09:41 07/03/25 09:41 Labs: Laboratory Results - last 24 hr 07/03/25 09:41 MCV 84.4 MCH 27.0 MCHC 32.0 RDW 16.0 Plt Count 218 MPV 12.2 Immature Gran % (Auto) 0.4 Neut % (Auto) 74.5 H Lymph % (Auto) 17.0 L [place] % (Auto) 8.0 Eos % (Auto) 0.0 Baso % (Auto) 0.1 Lymph # (Auto) 1.5 [place] # (Auto) 0.7 Eos # (Auto) 0.0 Baso # (Auto) 0.0 Abs Immat Gran (auto) 0.03 Absolute Neuts (auto) 6.4 Absolute Nucleated RBC 0.000 Nucleated RBC % (auto) 0.0 Anion Gap 14 Estim Creat Clear Calc 73.4 Estimated GFR > 60 Random Glucose 110 Calcium 8.8 Total Bilirubin 0.2 AST 11 ALT 7 Alkaline Phosphatase 62 Total Protein 7.0 Albumin 4.0 Assessment and Plan (1) Crohn's disease: Status: Acute (2) Crohn's colitis: Status: Acute Plan 54-year-old female with a past medical history of Crohn's disease, rheumatoid arthritis, VT on Eliquis, MARISOL on nocturnal CPAP, asthma, GERD, chronic constipation, mood disorder, hypertension, recently discharged from the hospital on 03/20/2025 after being treated for Crohn's flare with steroids; presented to the hospital on with a chief complaint of abdominal pain. Likely rx resistant Chrons flare. at this time with 7-8 episodes of diarrhea. underwent flex sigmoidoscopy on 07/01. finding scattered superficial ulcers and proctitis. continues having multiple episodes of diarrhea Acute Crohn's proctocolitis secondary to resistant Crohn's flare, status post flexible sigmoidoscopy, with proctitis and distal 5 cm of the rectum with scattered superficial ulcers, moderate hemorrhoids Partial left hemicolectomy Failed multiple trials of biologics -continue w/ pain medication. will schedule oxycontin 10mg BID -continue IV methylprednisolone 30mg IV BID -continue hydrocortisone suppository q.h.s. 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 All pertinent clinical documents, images and labs were reviewed. DISCLAIMER: This document was created using voice recognition software. Any mistakes in the prescription are unintentional. An attempt was made to focus for accuracy, but to expedite availability, some errors may persist. Please contact with any need for correction or further clarification Total time managing care of this patient today: 55 minutes. Quality Stroke Does the patient have a stroke diagnosis?: No VTE Prior VTE?: No VTE Risk Level:: Medical - moderate - high VTE Device Contraindication: N/A - Device Ordered VTE Drug Contraindication: Treatment Not Indicated
[2025-07-03] MEDS: Potassium Chloride/H20 10 MEQ/100 ML PIGGYBACK 100 MEQ IV ×2 (10:52→12:23)
--- NOTE | 2025-07-03 10:55 | PM.EVENT ---
Event Note Date of Service: 07/03/25 Event Note: Reach out to GI, suggested on CT enterography for tomorrow to assess for small intestines given diarrhea. Time Spent With Patient Time: Total time managing care of this patient today ____ minutes.
[2025-07-03] MEDS: Lactated Ringers 1,000 ML 80 ML IVCONT (13:23)
[2025-07-03 14:38] LABS: Anion Gap 13 (12-20); Blood Urea Nitrogen 14 mg/dL (9-16); Calcium 8.7 mg/dL (8.4-10.2); Carbon Dioxide 20 mmol/L (22-29); Chloride 111 mmol/L (96-108); Creatinine Clr Calc Pharmacy 71.7; Estimated Glomerular Filt Rate > 60; Potassium 3.1 mmol/L (3.3-5.1); Sodium 141 mmol/L (135-145)
[2025-07-03 15:47] VITALS: BP 142/79; PULSE 63; RESP 16; TEMP 36.4; O2SAT 97
[2025-07-03] MEDS: Potassium Chloride Packet 20 MEQ PACKET 40 MEQ PO (17:00)
[2025-07-03 19:40] VITALS: BP 132/74; PULSE 60; RESP 16; TEMP 36.4; O2SAT 97
[2025-07-04] MEDS: Lactated Ringers 1,000 ML 80 ML IVCONT ×2 (00:44→14:54)
[2025-07-04 03:18] VITALS: BP 134/88; PULSE 71; RESP 14; TEMP 36.2; O2SAT 98
[2025-07-04] MEDS: Fluticasone/Vilanterol 200/25 BLST.W.DEV 1 PUFF INHALE (07:41)
[2025-07-04 07:43] VITALS: PULSE 70; RESP 16
[2025-07-04 08:00] VITALS: BP 132/68; PULSE 82; RESP 16; TEMP 36; O2SAT 96
[2025-07-04] MEDS: oxyCODONE HCl ER 10 MG TAB.ER.12H PO ×2 (08:43→20:12)
[2025-07-04] MEDS: Potassium Chloride Packet 20 MEQ PACKET 40 MEQ PO (08:43)
[2025-07-04] MEDS: 0.9 % Sodium Chloride Flush 3 ML SYRINGE IVFLUSH ×2 (08:44→20:13)
[2025-07-04] MEDS: Sorbitol/Mannit/Xanth Imaging 500 ML LIQUID 1500 ML PO (11:35)
[2025-07-04] MEDS: iohexoL 350 MG/ML 100 ML INFUS..BTL IV (11:36)
--- NOTE | 2025-07-04 14:10 | HO.PM.IMPN ---
Subjective Subjective Date of Service: 07/04/25 Interval History: Patient seen and examined at bedside this morning, patient states that her pain has slightly improved, plans on CT enteroscopy later today. Patient's potassium 3.1 at this time. Review of Systems Review of Systems: Yes all other systems are reviewed and are negative Physical Exam Exam: Exam: General: AxOx3, No acute distress Head: AT/NC ENT: Moist mucous membranes Neck: supple CVS; RRR, S1 S2 normal Lungs: Clear bilateral breath sounds, no wheezes or crackles Abd: Soft, tender, improved, non distended Ext: No edema and no calf tenderness MSK: moving all 4 limbs Skin: No cyanosis or edema Psych: Cooperative with exam Neurology: no focal deficit Vital Signs: Vital Signs: Last Vital Signs Temp 96.8 F 07/04/25 08:00 Pulse 82 07/04/25 08:00 Resp 16 07/04/25 08:00 BP 132/68 07/04/25 08:00 Pulse Ox 96 07/04/25 08:00 O2 Del Method Room Air 07/04/25 08:00 BMI result Body Mass Index 29.3 Objective Data Active Medications Acetaminophen (Acetaminophen 325 Mg Tablet) 650 mg PO Q6H PRN PRN Reason: Pain, Mild 1-3,fever,headache Last Admin: 07/03/25 17:07 Dose: 650 mg Documented By: JAQUAN Albuterol Sulfate (Albuterol Sulfate 90 Mcg 8 Gm Inhaler) 2 puff INHALE Q4H PRN PRN Reason: Shortness of Breath Amlodipine Besylate (Amlodipine Besylate 2.5 Mg Tablet) 2.5 mg PO DAILY [facility]; Protocol Last Admin: 07/04/25 08:44 Dose: 2.5 mg Documented By: RYAN Buspirone HCl (Buspirone Hcl 5 Mg Tablet) 5 mg PO DAILY [facility] Last Admin: 07/04/25 08:44 Dose: 5 mg Documented By: RYAN Calcium Carbonate (Calcium Carbonate 750 Mg Tab.Chew) 750 mg PO Q4H PRN PRN Reason: Heartburn Fluticasone Propionate (Fluticasone Propionate Nasal 16 Gm [place]) 1 spray NOSTRIL-B DAILY [facility] Last Admin: 07/04/25 08:49 Dose: 1 spray Documented By: RYAN Fluticasone/Vilanterol (Fluticasone/Vilanterol 200/25 Blst.W.Dev) 1 puff INHALE RDAILY [facility] Last Admin: 07/04/25 07:41 Dose: 1 puff Documented By: TALIA Hydrocortisone (Hydrocortisone 100 Mg/60 Ml Enema) 100 mg MS BEDTIME [facility] Last Admin: 07/03/25 19:48 Dose: 100 mg Documented By: CATA Hydromorphone HCl (Hydromorphone Hcl 1 Mg/Ml Syringe) 0.5 mg IVPUSH Q4H PRN; Protocol PRN Reason: Pain, Severe (Pain Scale 7-10) Last Admin: 07/04/25 13:00 Dose: 0.5 mg Documented By: RYAN Hydroxyzine HCl (Hydroxyzine Hcl 10 Mg Tablet) 10 mg PO TID PRN PRN Reason: Anxiety Last Admin: 07/03/25 04:49 Dose: 10 mg Documented By: CATA Piperacillin Sod/Tazobactam (Sod 4.5 gm/ Sodium Chloride) 100 mls @ 200 mls/hr IV Q6H [facility] Last Infusion: 07/04/25 12:14 Dose: Infused Documented By: RYAN Lactated Ringer's (Lr) 1,000 mls @ 80 mls/hr IVCONT .[id number] [facility] Last Infusion: 07/04/25 11:36 Dose: 0 mls/hr Documented By: RYAN Magnesium Hydroxide (Milk Of Magnesia 30 Ml Oral.Susp) 30 ml PO DAILY PRN PRN Reason: Constipation Melatonin (Melatonin 3 Mg Tablet) 6 mg PO BEDTIME PRN PRN Reason: Insomnia Melatonin (Melatonin 3 Mg Tablet) 9 mg PO BEDTIME [facility] Last Admin: 07/03/25 19:48 Dose: 9 mg Documented By: CATA Methylprednisolone Sodium Succinate (Methylprednisolone Sod Succ 40 Mg/Ml Vial) 30 mg IVPUSH Q12H [facility] Last Admin: 07/04/25 11:34 Dose: 30 mg Documented By: RYAN Metoclopramide HCl (Metoclopramide Hcl 10 Mg/2 Ml Vial) 5 mg IVPUSH Q6H PRN PRN Reason: Nausea and Vomiting Last Admin: 07/03/25 03:41 Dose: 5 mg Documented By: CATA Montelukast Sodium (Montelukast Sodium 10 Mg Tablet) 10 mg PO BEDTIME [facility] Last Admin: 07/03/25 19:48 Dose: 10 mg Documented By: CATA Multivitamins/Vitamin C (Multivitamin Tablet) 1 tab PO DAILY [facility] Last Admin: 07/04/25 08:44 Dose: 1 tab Documented By: RYAN Naloxone HCl (Naloxone Hcl 0.4 Mg/Ml Vial) 0.04 mg IVPUSH Q5M PRN PRN Reason: Excessive sedation or RR < 8 Omeprazole (Omeprazole 20 Mg Capsule.Dr) 20 mg PO DAILY@0630 [facility] Last Admin: 07/04/25 08:45 Dose: 20 mg Documented By: RYAN Ondansetron HCl (Ondansetron Hcl 4 Mg/2 Ml Vial) 4 mg IVPUSH Q8H PRN PRN Reason: Nausea and Vomiting Last Admin: 07/04/25 11:47 Dose: 4 mg Documented By: RYAN Oxycodone HCl (Oxycodone Hcl Er 10 Mg Tab.Er.12h) 10 mg PO BID [facility] Last Admin: 07/04/25 08:43 Dose: 10 mg Documented By: RYAN Risperidone (Risperidone 1 Mg Tablet) 1 mg PO BID [facility] Last Admin: 07/04/25 08:44 Dose: 1 mg Documented By: RYAN Sertraline HCl (Sertraline Hcl 25 Mg Tablet) 25 mg PO DAILY [facility] Last Admin: 07/04/25 08:44 Dose: 25 mg Documented By: RYAN Sodium Biphosphate/Sodium Phosphate (Sodium Phosphate,[place]-Dibasic 133 Ml Enema) 133 ml MS ONCE PRN PRN Reason: Pre-Op Surgical Prep Last Admin: 07/01/25 13:12 Dose: 133 ml Documented By: JAQUAN Sodium Chloride (0.9 % Sodium Chloride Flush 3 Ml Syringe) 3 ml IVFLUSH QSHIFT [facility] Last Admin: 07/04/25 08:44 Dose: 3 ml Documented By: RYAN Topiramate (Topiramate 100 Mg Tablet) 100 mg PO BID [facility] Last Admin: 07/04/25 08:43 Dose: 100 mg Documented By: RYAN Labs 07/03/25 09:41 07/03/25 14:12 Labs: Laboratory Results - last 24 hr 07/03/25 14:12 Anion Gap 13 Estim Creat Clear Calc 71.7 Estimated GFR > 60 Random Glucose 119 H Calcium 8.7 Microbiology Microbiology Results: Microbiology 06/28/25 09:07 Blood Culture - Final Blood - Venous No growth after 5 days. 06/28/25 09:07 Blood Culture - Final Blood - Venous No growth after 5 days. Assessment and Plan (1) Crohn's disease: Status: Acute (2) Crohn's colitis: Status: Acute (3) Immunosuppressed status: Status: Chronic Plan 54-year-old female with a past medical history of Crohn's disease, rheumatoid arthritis, VT on Eliquis, MARISOL on nocturnal CPAP, asthma, GERD, chronic constipation, mood disorder, hypertension, recently discharged from the hospital on 03/20/2025 after being treated for Crohn's flare with steroids; presented to the hospital on with a chief complaint of abdominal pain. Likely rx resistant Chrons flare. at this time with 7-8 episodes of diarrhea. underwent flex sigmoidoscopy on 07/01. finding scattered superficial ulcers and proctitis. continued with diarrhea, plans on CT enteroscopy on 07/04, stool cultures sent, with lactose free diet Acute Crohn's proctocolitis secondary to resistant Crohn's flare, status post flexible sigmoidoscopy, with proctitis and distal 5 cm of the rectum with scattered superficial ulcers, moderate hemorrhoids Partial left hemicolectomy Failed multiple trials of biologics -continue w/ pain medication. will schedule oxycontin 10mg BID -continue IV methylprednisolone 30mg IV BID -continue hydrocortisone suppository q.h.s. 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 All pertinent clinical documents, images and labs were reviewed. DISCLAIMER: This document was created using voice recognition software. Any mistakes in the prescription are unintentional. An attempt was made to focus for accuracy, but to expedite availability, some errors may persist. Please contact with any need for correction or further clarification Total time managing care of this patient today: 55 minutes. Quality Stroke Does the patient have a stroke diagnosis?: No VTE Prior VTE?: No VTE Risk Level:: Medical - moderate - high VTE Device Contraindication: N/A - Device Ordered VTE Drug Contraindication: Treatment Not Indicated
--- NOTE | 2025-07-04 15:05 | MHC.CM.PN ---
per rounds pt to have an endoscopy today not ready for dc
[2025-07-04 16:00] VITALS: BP 160/80; PULSE 61; RESP 16; TEMP 36.5; O2SAT 98
[2025-07-04 20:00] VITALS: BP 135/80; PULSE 59; RESP 16; TEMP 36.3; O2SAT 98
[2025-07-04] MEDS: PHENobarb/Hyoscy/Atropine/Scop 10 ML ELIXIR 5 ML PO (20:34)
[2025-07-05 03:44] VITALS: BP 140/76; PULSE 77; RESP 18; TEMP 36.7; O2SAT 99
[2025-07-05] MEDS: Lactated Ringers 1,000 ML 80 ML IVCONT (04:31)
[2025-07-05 07:13] LABS: Immunoglobulin A 234 mg/dL (47-310)
[2025-07-05] MEDS: Fluticasone/Vilanterol 200/25 BLST.W.DEV 1 PUFF INHALE (08:02)
[2025-07-05 08:03] VITALS: PULSE 68; O2SAT 98
[2025-07-05 08:12] VITALS: BP 140/64; PULSE 62; RESP 18; TEMP 36.8; O2SAT 98
[2025-07-05] MEDS: oxyCODONE HCl ER 10 MG TAB.ER.12H PO (09:17)
[2025-07-05] MEDS: 0.9 % Sodium Chloride Flush 3 ML SYRINGE IVFLUSH (09:18)
--- NOTE | 2025-07-05 11:21 | PM.DS ---
DS: Providers Provider Date of Service: 07/05/25 Date of admission: 06/30/25 09:30 Date of discharge: 07/05/25 Primary care physician: Leesa Wasserman MD Consults: 06/28/25 08:57 Consult to Gastroenterology Routine Consulting Provider: [facility] G[facility]ology [facility] Reason for consultation: crohns flare Attending physician on discharge: Lonny Huang Discharging clinician: Lonny Huang DS: Diagnosis Discharge Diagnosis (1) Crohn's disease: Status: Acute (2) Crohn's colitis: Status: Acute (3) Immunosuppressed status: Status: Chronic DS: Summary Hospital Course Hospital Course: 54-year-old female with a past medical history of Crohn's disease, rheumatoid arthritis, VT on Eliquis, MARISOL on nocturnal CPAP, asthma, GERD, chronic constipation, mood disorder, hypertension, recently discharged from the hospital on 03/20/2025 after being treated for Crohn's flare with steroids; presented to the hospital on with a chief complaint of abdominal pain. Likely rx resistant Chrons flare. at this time with 7-8 episodes of diarrhea. underwent flex sigmoidoscopy on 07/01. finding scattered superficial ulcers and proctitis. After flexible sigmoidoscopy continued with diarrhea, with CT enteroscopy done on 07/04 showing improved thickening of rectum and rectosigmoid anastomosis, with no signs of obstruction. Patient today states that suppositories have greatly improved her pain as well as diarrhea. Acute Crohn's proctocolitis secondary to resistant Crohn's flare, status post flexible sigmoidoscopy, with proctitis and distal 5 cm of the rectum with scattered superficial ulcers, moderate hemorrhoids, improved Partial left hemicolectomy Failed multiple trials of biologics -continue w/ pain medication. will continue oxycontin 10mg BID -s/p IV methylprednisolone 30mg IV BID, will send medrol dose yasmani -continue hydrocortisone suppository q.h.s. -fu on 08/15 w/ dr Javy Perez of DVT/PE--continue home Eliquis Hypertension, chronic Continued amlodipine, monitor and titrate medications accordingly Mood disorder PTSD Depression Continue home Risperdal, Topamax, gabapentin, sertraline, Klonopin MARISOL: Continued home nocturnal CPAP with good effect Rheumatoid arthritis: Patient on methotrexate every Friday Immunosupression secondary to medications, continue to monitor for any fevers Hypokalemia, likely 2/2 GI losses -will send PO potassium supplements All new and continued medications were discussed in depth with the patient, and new prescriptions were given directly to patient and/or verification of the prescriptions were sent to patient's preferred pharmacy directly. All side effects were discussed. Follow-up instructions were given. Patient voiced understanding. Patient was given the opportunity ask questions and express concerns, all of which were answered to their satisfaction. Patient was instructed to follow-up with her PCP within 3 to 10 days of discharge and head to the nearest emergency room or call 911 if symptoms worsen or new symptoms develop. This is a summary of the patient's stay; for more complete details please see chart. More than 35 minutes was spent with patient regarding workup, diagnosis and follow-up. Time Attestation Discharge Coordination Time (in mins): 35 minutes Quality: Safe Use of Opioids Does Pt have an Active Cancer Diagnosis on the Problem List?: No Quality: Stroke Does the patient have a stroke diagnosis?: No Physical Exam Exam: Exam: General: AxOx3, No acute distress Head: AT/NC ENT: Moist mucous membranes Neck: supple CVS; RRR, S1 S2 normal Lungs: Clear bilateral breath sounds, no wheezes or crackles Abd: Soft non tender, non distended Ext: No edema and no calf tenderness MSK: moving all 4 limbs Skin: No cyanosis or edema Psych: Cooperative with exam Neurology: no focal deficit Vital Signs: Vital Signs: Last Vital Signs Temp 98.3 F 07/05/25 08:12 Pulse 62 07/05/25 08:12 Resp 18 07/05/25 08:12 BP 140/64 H 07/05/25 08:12 Pulse Ox 98 07/05/25 08:12 O2 Del Method Room Air 07/05/25 08:12 BMI result Body Mass Index 29.3 DS: Data Data Completed and Pending Completed studies during hospitalization [Text1]: Procedures Dilation of Sigmoid Colon, Via Natural or Artificial Opening Endoscopic (09/08/21) Excision of Ascending Colon, Via Natural or Artificial Opening Endoscopic, Diagnostic (03/01/21) Excision of Cecum, Via Natural or Artificial Opening Endoscopic, Diagnostic (03/01/21) Excision of Descending Colon, Via Natural or Artificial Opening Endoscopic, Diagnostic (03/01/21) Excision of Duodenum, Via Natural or Artificial Opening Endoscopic, Diagnostic (03/01/21) Excision of Rectum, Via Natural or Artificial Opening Endoscopic (03/01/21) Excision of Sigmoid Colon, Via Natural or Artificial Opening Endoscopic, Diagnostic (09/08/21) Excision of Stomach, Pylorus, Via Natural or Artificial Opening Endoscopic, Diagnostic (03/01/21) Excision of Transverse Colon, Via Natural or Artificial Opening Endoscopic, Diagnostic (03/01/21) Extraction of Esophagus, Via Natural or Artificial Opening Endoscopic, Diagnostic (03/01/21) Pending studies at discharge: Pending at discharge 07/01/25 16:01 Surgical [PTH] Routine Labs on day of discharge: Laboratory Results - last 24 hr 07/04/25 05:47 IgA 234 Discharge Plan Discharge Anticipated Discharge Date/Time: 07/05/25 13:14 Patient Disposition: Home, Self-Care Discharge Diagnosis: Crohn proctocolitis Referrals: Leesa Rapp MD [Primary Care Provider, Internal Medicine] - 1 Week Libby Palafox MD [Physician, Gastroenterology] - 2 Weeks Discharge Medications: New loperamide 2 mg Capsule 2 mg PO Q6H PRN (Reason: Diarrhea) 10 Days Qty: 20 0RF hydrocortisone 100 mg/60 mL Enema 100 mg PA BEDTIME 15 Days Qty: 900 0RF oxycodone [OxyContin] 10 mg Tablet,Oral Only,Ext.Rel.12 Hr 10 mg PO BID 10 Days Qty: 20 0RF Rx Instructions: Partial Fill upon patient request. methylprednisolone [Medrol (Yasmani)] 4 mg tablets,dose pack 4 mg PO DAILY Qty: 21 0RF Rx Instructions: take per medrol dose yasmani suggestions Continued multivitamin Tablet 1 tab PO DAILY docusate sodium 100 mg capsule 1 cap PO BID PRN (Reason: Constipation) montelukast 10 mg tablet 1 tab PO BEDTIME risperidone 1 mg Tablet 1 mg PO BID Qty: 60 0RF Eliquis 2.5 mg Tablet 2.5 mg PO BID Qty: 60 6RF budesonide-formoterol [Symbicort] 160-4.5 mcg/actuation HFA aerosol inhaler 2 puff PO BID ondansetron 4 mg tablet,disintegrating 8 mg PO Q8H PRN (Reason: nausea and vomiting) hydroxyzine HCl 10 mg Tablet 10 mg PO TID PRN (Reason: Anxiety) calcium carbonate-vitamin D3 600 mg-10 mcg (400 unit) tablet 1 tab PO BID melatonin 5 mg Tablet 10 mg PO BEDTIME cholecalciferol (vitamin D3) [Vitamin D3] 50 mcg (2,000 unit) Tablet 50 mcg PO DAILY Xeljanz 10 mg Tablet 10 mg PO BID methotrexate sodium 2.5 mg tablet 25 mg PO FR@0900 buspirone 5 mg Tablet 5 mg PO DAILY albuterol sulfate 90 mcg/actuation Hfa Aerosol Inhaler 2 puff INHALATION Q4H PRN (Reason: Shortness Of Breath) pantoprazole [Protonix] 40 mg tablet,delayed release (DR/EC) 40 mg PO DAILY@0630 fluticasone propionate 50 mcg/actuation spray,suspension 1 spray intranasal DAILY acetaminophen [Tylenol] 325 mg Tablet 650 mg PO Q4H PRN (Reason: Pain) carboxymethylcellulose sodium 1 % Drops, Liquid Gel 1 drp OPHTHALMIC (EYE) BID PRN (Reason: Dry Eye(S)) topiramate 100 mg tablet 100 mg PO BID amlodipine 2.5 mg tablet 2.5 mg PO DAILY sertraline [Zoloft] 25 mg tablet 25 mg PO DAILY ustekinumab [Stelara] 90 mg/mL Syringe 90 mg SUBCUT Q4W zolpidem 5 mg tablet 5 mg PO BEDTIME PRN (Reason: insomnia) lactulose 10 gram/15 mL solution 20 g PO BID 30 Days Qty: 1800 3RF Discharge Orders: Discharge Order (Routine); Ordered 07/05/25 Ordered By: Lonny Huang Diet: Advance to usual diet Activity on Discharge: As tolerated Stand Alone Forms: Patient Portal Discharge page Print Language: Ukrainian Care Plan Goals: continue suppository, medrol dose yasmani to decrease inflammation avoid lactoseproducts follow up with GI Health Concerns: crohn proctocolitis Plan of Treatment: continue hydrocortisone suppository medrol dose yasmani oxycontine for pain avoid lactose products follow up with GI follow up with surgery to assess mesh follow with PCP Assessment: 54-year-old female with a past medical history of Crohn's disease, rheumatoid arthritis, VT on Eliquis, MARISOL on nocturnal CPAP, asthma, GERD, chronic constipation, mood disorder, hypertension, recently discharged from the hospital on 03/20/2025 after being treated for Crohn's flare with steroids; presented to the hospital on with a chief complaint of abdominal pain. Likely rx resistant Chrons flare. at this time with 7-8 episodes of diarrhea. underwent flex sigmoidoscopy on 07/01. finding scattered superficial ulcers and proctitis. After flexible sigmoidoscopy continued with diarrhea, with CT enteroscopy done on 07/04 showing improved thickening of rectum and rectosigmoid anastomosis, with no signs of obstruction. Patient Instructions: Crohn Disease (DC)
--- NOTE | 2025-07-05 11:39 | MHC.CM.PN ---
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 She has arranged for transportation home.
[2025-07-05 11:56] LABS: Anion Gap 13 (12-20); Blood Urea Nitrogen 13 mg/dL (9-16); Calcium 9.2 mg/dL (8.4-10.2); Carbon Dioxide 20 mmol/L (22-29); Chloride 109 mmol/L (96-108); Creatinine Clr Calc Pharmacy 70.8; Estimated Glomerular Filt Rate > 60; Potassium 2.9 mmol/L (3.3-5.1); Sodium 139 mmol/L (135-145)
[2025-07-05] MEDS: Potassium Chloride/H20 10 MEQ/100 ML PIGGYBACK 100 MEQ IV ×3 (12:28→16:13)
[2025-07-05 16:00] VITALS: BP 131/73; PULSE 64; RESP 16; TEMP 36.3; O2SAT 98
[2025-07-05 17:54] LABS: Potassium 3.5 mmol/L (3.3-5.1)
--- NOTE | 2025-07-08 07:42 | P.EN_ITS ---
Event Note Date of Service: 07/08/25 Event Note: Call from pt oxycontin required PA, changed med to oxycodone 5 q 6 prn, #20, sent to [facility] pharmacy. Pt aware Time Spent With Patient Time: Total time managing care of this patient today ____ minutes.
[2025-07-08 16:29] LABS: Calprotectin, Fecal 430 mcg/g
== END 2025-07-05 18:48 | disposition home or self-care (01) | DRG 245 ==
LOC: HO.ED 08:40 → HO.EDOVER 09:05 → HO.S3 12:55
PROVIDERS: Nurse Practitioner Acute Care; Physician Assistant Medical; Admitting Provider Internal Medicine Gastroenterology; Emergency Provider Emergency Medicine; PCP Internal Medicine; Visit Provider Student in an Organized Health Care Education/Training Program
PROC: 0DJD8ZZ Inspection of Lower Intestinal Tract, Via Natural or Artificial Opening Endoscopic (ICD-10-PCS; CPT 45330; principal; 2025-07-01 14:40)
DX: K50.111 Crohn's disease of large intestine with rectal bleeding (principal); K57.31 Diverticulosis of large intestine without perforation or abscess with bleeding; D84.821 Immunodeficiency due to drugs; F32.A Depression, unspecified; M06.9 Rheumatoid arthritis, unspecified; K62.89 Other specified diseases of anus and rectum; F39 Unspecified mood [affective] disorder; I10 Essential (primary) hypertension; K64.8 Other hemorrhoids; Z79.01 Long term (current) use of anticoagulants; Z87.891 Personal history of nicotine dependence; G47.33 Obstructive sleep apnea (adult) (pediatric); Z79.622 Long term (current) use of Janus kinase inhibitor; Z79.631 Long term (current) use of antimetabolite agent; Z79.620 Long term (current) use of immunosuppressive biologic; Z79.899 Other long term (current) drug therapy
CPT/HCPCS: 36415; 74177; 80048; 80053; 81001; 82656; 82705; 82784; 83605; 83690; 83735; 83993; 84132; 84702; 85025; 85027; 85652; 86140; 86364; 87040; 87493; 87496; 87507; 88305; 94640; 99285; J1171; J1836; J2270; J2405; J2543; J2765; J2919; J3480; J7120; Q9967

== ENCOUNTER → 2025-06-28 07:00 | Outpatient (BNV) | payer MEDICAID, SELFPAY | PROVIDERS: Emergency Provider Emergency Medicine; PCP Internal Medicine; Visit Provider Radiology Diagnostic Radiology | DX: I88.0 Nonspecific mesenteric lymphadenitis (principal) | CPT/HCPCS: 74177 ==

== ENCOUNTER → 2025-06-28 08:56 | Outpatient (BNV) | payer MEDICAID, SELFPAY | PROVIDERS: Admitting Provider Nurse Practitioner Acute Care; Emergency Provider Emergency Medicine; PCP Internal Medicine; Visit Provider Student in an Organized Health Care Education/Training Program | DX: K50.011 Crohn's disease of small intestine with rectal bleeding (principal); K50.111 Crohn's disease of large intestine with rectal bleeding | CPT/HCPCS: 99232; 99233; 99499 ==

== ENCOUNTER → 2025-06-28 08:56 | Outpatient (BNV) | payer MEDICAID, SELFPAY | PROVIDERS: Admitting Provider Nurse Practitioner Acute Care; Emergency Provider Emergency Medicine; PCP Internal Medicine; Visit Provider Internal Medicine Gastroenterology | DX: K50.011 Crohn's disease of small intestine with rectal bleeding (principal) | CPT/HCPCS: 99223 ==

== ENCOUNTER 2025-06-30 09:30 | Outpatient (BNV) | payer MEDICAID, SELFPAY | END 2025-07-04 11:10 | PROVIDERS: Admitting Provider Internal Medicine Gastroenterology; Emergency Provider Emergency Medicine; PCP Internal Medicine; Visit Provider Radiology Diagnostic Radiology | DX: K52.9 Noninfective gastroenteritis and colitis, unspecified (principal) | CPT/HCPCS: 74177 ==

== ENCOUNTER 2025-07-08 09:20 | Emergency (ER) | payer MEDICAID, SELFPAY ==
[2025-07-08 09:28] VITALS: BP 120/83; PULSE 91; RESP 20; TEMP 37.1; O2SAT 96; BMI 26.7
--- NOTE | 2025-07-08 09:36 | ED.ABDPAIN ---
HPI - Abdominal Pain General Chief Complaint: Abdominal Pain Stated Complaint: Nausea Vomiting Diarrhea Time Seen by Provider: 07/08/25 09:23 Source: patient Mode of arrival: ambulatory Limitations: no limitations History of Present Illness HPI narrative: This is a 54 years old the patient presented to the emergency department with a chief complaint of abdominal pain. The patient has a history of Crohn disease rheumatoid arthritis. Sleep apnea PTSD. She was admitted from June 30 to July [address] enterography No obstruction and sigmoidoscopy proctatis distal 5 cm discharged on steroids in the and narcotic medication. She returned today complaining of abdominal pain and nausea. MD elicited complaint: abdominal pain Pertinent past history: other (Crohn's disease) Onset (ago): day(s) (1) Pain Consistency: constant Location: none Severity: moderate Quality: cramping Radiation: none Migration to: no migration Relieving factors: nothing Related Data Home Medications ?Medication ?Instructions ?Recorded ?Confirmed docusate sodium 100 mg capsule 1 cap PO BID PRN Constipation 03/22/21 06/28/25 montelukast 10 mg tablet 1 tab PO BEDTIME 03/22/21 06/28/25 multivitamin 1 tab PO DAILY 03/22/21 06/28/25 budesonide-formoterol HFA 160 2 puff PO BID 09/08/21 06/28/25 mcg-4.5 mcg/actuation aerosol inhaler (Symbicort) zolpidem 5 mg tablet 5 mg PO BEDTIME PRN insomnia 12/17/23 06/28/25 acetaminophen 325 mg tablet 650 mg PO Q4H PRN Pain 02/11/24 06/28/25 (Tylenol) carboxymethylcellulose sodium 1 % 1 drp ophthalmic (eye) BID PRN Dry 02/11/24 06/28/25 eye liquid gel drops Eye(S) topiramate 100 mg tablet 100 mg PO BID 02/11/24 06/28/25 amlodipine 2.5 mg tablet 2.5 mg PO DAILY Hypertension 03/16/25 06/28/25 sertraline 25 mg tablet (Zoloft) 25 mg PO DAILY 03/16/25 06/28/25 ustekinumab 90 mg/mL subcutaneous 90 mg subcut Q4W 03/16/25 06/28/25 syringe (Stelara) albuterol sulfate 90 mcg/actuation 2 puff inhalation Q4H PRN 04/23/25 06/28/25 aerosol inhaler Shortness Of Breath buspirone 5 mg tablet 5 mg PO DAILY 04/23/25 06/28/25 calcium 600 mg (as 1 tab PO BID 04/23/25 06/28/25 carbonate)-vitamin D3 10 mcg (400 unit) tablet cholecalciferol (vitamin D3) 50 50 mcg PO DAILY 04/23/25 06/28/25 mcg (2,000 unit) tablet (Vitamin D3) hydroxyzine HCl 10 mg tablet 10 mg PO TID PRN Anxiety 04/23/25 06/28/25 melatonin 5 mg tablet 10 mg PO BEDTIME 04/23/25 06/28/25 methotrexate sodium 2.5 mg tablet 25 mg PO FR@0900 04/23/25 06/28/25 ondansetron 4 mg disintegrating 8 mg PO Q8H PRN nausea and vomiting 04/23/25 06/28/25 tablet tofacitinib 10 mg tablet (Xeljanz) 10 mg PO BID 04/23/25 06/28/25 fluticasone propionate 50 1 spray intranasal DAILY 06/28/25 06/28/25 mcg/actuation nasal spray,suspension pantoprazole 40 mg tablet,delayed 40 mg PO DAILY@0630 06/28/25 06/28/25 release (Protonix) Previous Rx's ?Medication ?Instructions ?Recorded risperidone 1 mg tablet 1 mg PO BID #60 tabs 04/04/21 lactulose 10 gram/15 mL oral 20 g (30 mL) PO BID Constipation 06/09/25 solution 30 days #1,800 mL apixaban 2.5 mg tablet (Eliquis) 2.5 mg PO BID #60 tabs 06/17/25 dicyclomine 10 mg capsule 10 mg PO TIDAC PRN GI Upset 10 07/05/25 days #20 caps hydrocortisone 100 mg/60 mL enema 100 mg (60 mL) DE BEDTIME 15 days 07/05/25 #900 mL loperamide 2 mg capsule 2 mg PO Q6H PRN Diarrhea 10 days 07/05/25 #20 caps methylprednisolone 4 mg tablets in 4 mg PO DAILY #21 ea 07/05/25 a dose pack (Medrol (Yasmani)) oxycodone 10 mg tablet,crush 10 mg PO BID 10 days #20 tabs 07/05/25 resistant,extended release 12 hr (OxyContin) potassium chloride 20 mEq oral 40 meq PO BID 2 days #4 ea 07/05/25 packet oxycodone 5 mg tablet 5 mg PO Q6H PRN pain (scale score 07/08/25 7-10) #20 tabs Allergies Allergy/AdvReac Type Severity Reaction Status Date / Time aspirin (ASA) Allergy Intermediate RASH Verified 07/08/25 09:32 azathioprine (From IMURAN) Allergy Intermediate PANCREATIC Verified 07/08/25 09:32 INFLAMMATION ibuprofen (IBUPROFEN) Allergy Intermediate TOLD NOT Verified 07/08/25 09:32 TO TAKE levofloxacin (From LEVAQUIN) Allergy Mild YEAST Verified 07/08/25 09:32 INFECTIONS Review of Systems Constitutional: Reports no additional constitutional complaints Reports system reviewed and no additional complaints, except as documented PMFSH Past Medical History Attestation statement: The following information was validated with the patient. Medical History Urge incontinence Stricture of colon Anxiety Sleep apnea Asthma GERD (gastroesophageal reflux disease) Pulmonary embolism Crohn's disease PTSD (post-traumatic stress disorder) Hyperlipidemia Hemorrhagic cyst of ovary Kidney stones Depression Iron deficiency anemia Rheumatoid arthritis Migraine Cancer HTN (hypertension) Surgical History History of esophagogastroduodenoscopy (EGD) History of colon resection History of colon resection Hx of dilation and curettage Hx of cystoscopy Hx of cystoscopy Hx of colonoscopy (~10/2018) Hx of endoscopy Social History Social History Household Members: None Housing: Apartment Are you a primary career development coordinator/teacher to a significant other at home: No Do you presently have visiting nurse or other home services: No ([employer]AR[employer] 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) Alcohol intake: never Patient Tobacco Use Status: Former Tobacco user Tobacco use type: Cigarette Cigarettes Per Day: 1 Years Smoked: 10 e-Cigarette/Vaping Use: Former Use Second Hand Smoke Exposure: No Substance Use Type: Marijuana Advance Directives: Yes Advance Directives on File: Yes Advance Directives Date on File: 02/13/24 Do you have a plan to hurt others: No Plan service: No Current occupational status: unemployed and disabled Sexual orientation: Straight/Heterosexual Physical Exam ED Exam Exam: No acute distress Vital Signs: Vital Signs - 24 hr 07/08/25 09:28 07/08/25 10:25 07/08/25 14:39 Temperature 98.7 F 97.6 F Pulse Rate 91 74 64 Respiratory Rate 20 16 14 Blood Pressure 120/83 117/76 116/73 Pulse Oximetry 96 95 96 Oxygen Delivery Method Room Air Room Air Room Air BMI result Body Mass Index 26.7 Vital signs reviewed stable Const General: cooperative Nutritional Appearance: well nourished HENMT Head: Yes normal to inspection Ears: hearing grossly normal bilaterally Neck Neck: Yes normal visual inspection Chest Chest palpation & inspection: normal inspection of the chest Resp Effort & Inspection: normal respiratory effort Cardio Jugular venous distension: no JVD Rate: regular rate Rhythm: regular rhythm GI Inspection: Yes normal to inspection Palpation (GI): Soft to palpation Auscultation: normal bowel sounds General: Yes no CVA tenderness Back/Spine/Pelvis Back: no CVA tenderness Skin General skin exam: no rashes or lesions noted and elasticity normal Lesions: no lesions Rashes: no rashes Trauma: no lacerations or abrasions Extrem General: Yes normal to inspection and Yes full ROM Right lower extremity: normal to inspection Course Reevaluation(s) Reevaluation #1: She is feeling better labs normal vital signs normal Time: 14:58 Medical Decision Making Medical Decision Making [facility] Narrative: Patient is here with the abdominal pain history of Crohn disease but recent in the hospital hospitalization showed a normal CT enterography, she had sigmoidoscopy with showed only 5 cm with distal proctitis, it is reasonable to get blood work administer fluid analgesia 14:58 white count is normal, I do not think we need to do a CAT scan she had CAT scan a few days ago, I reviewed the case also with the discharging hospitalist Dr. Urena okay to discharge, Dr. Urena sent the pain medicine to the pharmacy. Differential Diagnosis Differential Diagnoses: The differential diagnosis associated with the presentation includes Crohn flare/gastroenteritis/bowel obstruction Admission/Observation Consideration of admission/observation: Escalation of care including admission/observation considered Consult Healthcare Provider Management of the patient was discussed with: Hospitalist Lab Data [facility] Lab Attestation statement: I reviewed the patient's lab results. 07/08/25 09:50 07/08/25 09:50 Labs: Lab Results 07/08/25 07/08/25 07/08/25 Range/Units 09:50 13:13 14:31 WBC 9.7 (4.8-10.8) X10*3/uL RBC 5.40 D (4.20-5.50) X10*6/uL Hgb 14.8 D (12.0-16.0) g/dl Hct 43.6 (37.0-47.0) % MCV 80.7 (80.0-98.0) fL MCH 27.4 (27.0-33.0) pg MCHC 33.9 (31.0-35.0) g/dl RDW 15.9 (11.0-16.0) % Plt Count 250 (160-400) X10*3/uL MPV 12.0 (9.4-12.3) fL Immature Gran % (Auto) 0.6 H (0.0-0.4) % Neut % (Auto) 60.3 (45-73) % Lymph % (Auto) 18.3 L (20-40) % [place] % (Auto) 20.2 H (2-11) % Eos % (Auto) 0.2 (0-4) % Baso % (Auto) 0.4 (0-2) % Lymph # (Auto) 1.8 (1.2-4.9) X10*3/uL [place] # (Auto) 2.0 H (0.1-1.2) X10*3/uL Eos # (Auto) 0.0 (0.0-0.4) X10*3/uL Baso # (Auto) 0.0 (0.0-0.2) X10*3/uL Abs Immat Gran (auto) 0.06 H (0.00-0.03) X10*3/uL Absolute Neuts (auto) 5.8 (2.0-8.3) x10*3/uL Absolute Nucleated RBC 0.000 (0.0-0.012) X10*3/uL Nucleated RBC % (auto) 0.0 (0.0-0.2) /100WBC Smear Tech's Comments VERIFIED Sodium 136 (135-145) mmol/L Potassium 3.1 L (3.3-5.1) mmol/L Chloride 103 (96-108) mmol/L Carbon Dioxide 21 L (22-29) mmol/L Anion Gap 15 (12-20) BUN 21 H (9-16) mg/dL Creatinine 1.35 (0.5-1.4) mg/dL Estim Creat Clear Calc 44.1 Estimated GFR 41 Random Glucose 97 (60-115) mg/dL Calcium 9.5 (8.4-10.2) mg/dL Total Bilirubin 0.3 (0.0-1.0) mg/dL AST 27 (5-31) U/L ALT 14 (0-31) U/L Alkaline Phosphatase 78 (39-117) U/L Total Protein 8.3 H (6.5-8.0) g/dL Albumin 4.6 (3.5-5.0) g/dL Lipase 28 (8-78) U/L Urine Color Yellow Urine Appearance Clear Urine pH 5.5 (5.0-9.0) Ur Specific [place] 1.015 (1.005-1.025) Urine Protein Trace (Neg-Trace) mg/dL Urine Glucose (UA) Negative (Negative) mg/dL Urine Ketones 15 (Negative) mg/dL Urine Blood Moderate (2+) H (Negative) Urine Nitrite Negative (Negative) Ur Leukocyte Esterase Negative (Negative) Stool Leukocytes, Qual MOD: 3-9/OIF (NEGATIVE) C. difficile Tox B Gene NEGATIVE (Negative) Chronic Conditions Patient?s care impacted by: Other chrohn disease Medications Administered Discontinued Medications Generic Name Dose Route Start Last Admin Trade Name [place] PRN Reason Stop Dose Admin Diazepam 2.5 mg 07/08/25 09:42 07/08/25 09:59 Diazepam 10 Mg/2 Ml Cartridge IVPUSH 07/08/25 09:43 2.5 mg STAT STA Administration Hydromorphone HCl 0.5 mg 07/08/25 09:31 07/08/25 09:59 Hydromorphone Hcl 0.5 Mg/0.5 Ml Syringe IVPUSH 07/08/25 09:32 0.5 mg ONCE ONE Administration Protocol Hydromorphone HCl 0.5 mg 07/08/25 11:23 07/08/25 11:45 Hydromorphone Hcl 0.5 Mg/0.5 Ml Syringe IVPUSH 07/08/25 11:24 0.5 mg ONCE ONE Administration Protocol Sodium Chloride 1,000 mls @ 999 mls/hr 07/08/25 09:30 07/08/25 12:49 Ns IVCONT 07/08/25 10:30 Infused .Q1H1M JUANCHO Infusion Ondansetron HCl 4 mg 07/08/25 09:31 07/08/25 09:58 Ondansetron Hcl 4 Mg/2 Ml Vial IVPUSH 07/08/25 09:32 4 mg ONCE ONE Administration Ondansetron HCl 4 mg 07/08/25 13:04 07/08/25 13:11 Ondansetron Hcl 4 Mg/2 Ml Vial IVPUSH 07/08/25 13:05 4 mg ONCE ONE Administration Discharge Plan Discharge Clinical Impression: Abdominal pain Qualifiers: Abdominal location: generalized Qualified Code(s): R10.84 - Generalized abdominal pain Crohn's disease Qualifiers: Gastrointestinal tract location: small intestine Digestive disease complication type: with rectal bleeding Qualified Code(s): K50.011 - Crohn's disease of small intestine with rectal bleeding Patient Disposition: Home, Self-Care Instructions: Abdominal Pain (ED) Prescriptions: No Action multivitamin Tablet 1 tab PO DAILY docusate sodium 100 mg capsule 1 cap PO BID PRN (Reason: Constipation) montelukast 10 mg tablet 1 tab PO BEDTIME risperidone 1 mg Tablet 1 mg PO BID Qty: 60 0RF Eliquis 2.5 mg Tablet 2.5 mg PO BID Qty: 60 6RF budesonide-formoterol [Symbicort] 160-4.5 mcg/actuation HFA aerosol inhaler 2 puff PO BID ondansetron 4 mg tablet,disintegrating 8 mg PO Q8H PRN (Reason: nausea and vomiting) hydroxyzine HCl 10 mg Tablet 10 mg PO TID PRN (Reason: Anxiety) calcium carbonate-vitamin D3 600 mg-10 mcg (400 unit) tablet 1 tab PO BID melatonin 5 mg Tablet 10 mg PO BEDTIME cholecalciferol (vitamin D3) [Vitamin D3] 50 mcg (2,000 unit) Tablet 50 mcg PO DAILY Xeljanz 10 mg Tablet 10 mg PO BID methotrexate sodium 2.5 mg tablet 25 mg PO FR@0900 buspirone 5 mg Tablet 5 mg PO DAILY albuterol sulfate 90 mcg/actuation Hfa Aerosol Inhaler 2 puff INHALATION Q4H PRN (Reason: Shortness Of Breath) pantoprazole [Protonix] 40 mg tablet,delayed release (DR/EC) 40 mg PO DAILY@0630 fluticasone propionate 50 mcg/actuation spray,suspension 1 spray intranasal DAILY loperamide 2 mg Capsule 2 mg PO Q6H PRN (Reason: Diarrhea) 10 Days Qty: 20 0RF hydrocortisone 100 mg/60 mL Enema 100 mg DE BEDTIME 15 Days Qty: 900 0RF oxycodone [OxyContin] 10 mg Tablet,Oral Only,Ext.Rel.12 Hr 10 mg PO BID 10 Days Qty: 20 0RF Rx Instructions: Partial Fill upon patient request. methylprednisolone [Medrol (Yasmani)] 4 mg tablets,dose pack 4 mg PO DAILY Qty: 21 0RF Rx Instructions: take per medrol dose yasmani suggestions dicyclomine 10 mg Capsule 10 mg PO TIDAC PRN (Reason: GI Upset) 10 Days Qty: 20 0RF potassium chloride 20 mEq Packet 40 meq PO BID 2 Days Qty: 4 0RF oxycodone 5 mg tablet 5 mg PO Q6H PRN (Reason: pain (scale score 7-10)) Qty: 20 0RF Rx Instructions: Partial Fill upon patient request. acetaminophen [Tylenol] 325 mg Tablet 650 mg PO Q4H PRN (Reason: Pain) carboxymethylcellulose sodium 1 % Drops, Liquid Gel 1 drp OPHTHALMIC (EYE) BID PRN (Reason: Dry Eye(S)) topiramate 100 mg tablet 100 mg PO BID amlodipine 2.5 mg tablet 2.5 mg PO DAILY sertraline [Zoloft] 25 mg tablet 25 mg PO DAILY ustekinumab [Stelara] 90 mg/mL Syringe 90 mg SUBCUT Q4W zolpidem 5 mg tablet 5 mg PO BEDTIME PRN (Reason: insomnia) lactulose 10 gram/15 mL solution 20 g PO BID 30 Days Qty: 1800 3RF Referrals: Leesa Rapp MD [Primary Care Provider, Internal Medicine] - 07/11/25 Print Language: Chinese
[2025-07-08 09:56] LABS: Hematocrit 43.6 % (37.0-47.0); Hemoglobin 14.8 g/dl (12.0-16.0); Imm Gran Abs Auto 0.06 X10*3/uL (0.00-0.03); Imm Gran Pct Auto 0.6 % (0.0-0.4); Lymphocytes Absolute Auto 1.8 X10*3/uL (1.2-4.9); MANUAL DIFF FLAG SCAN; Mean Corpuscular HGB Conc 33.9 g/dl (31.0-35.0); Mean Corpuscular Hemoglobin 27.4 pg (27.0-33.0); Mean Corpuscular Volume 80.7 fL (80.0-98.0); NRBC Abs Auto 0.000 X10*3/uL (0.0-0.012); NRBC Pct Auto 0.0 /100WBC (0.0-0.2); Platelet Count 250 X10*3/uL (160-400); Red Blood Count 5.40 X10*6/uL (4.20-5.50); SCAN SMEAR FLAG 1; White Blood Count 9.7 X10*3/uL (4.8-10.8)
[2025-07-08] MEDS: diazePAM 10 MG/2 ML CARTRIDGE 2.5 MG IVPUSH (09:59)
[2025-07-08 10:20] LABS: Alanine Aminotransferase 14 U/L (0-31); Albumin Level 4.6 g/dL (3.5-5.0); Alkaline Phosphatase 78 U/L (39-117); Anion Gap 15 (12-20); Aspartate Amino Transferase 27 U/L (5-31); Blood Urea Nitrogen 21 mg/dL (9-16); Calcium 9.5 mg/dL (8.4-10.2); Carbon Dioxide 21 mmol/L (22-29); Chloride 103 mmol/L (96-108); Creatinine Clr Calc Pharmacy 44.1; Estimated Glomerular Filt Rate 41; Lipase 28 U/L (8-78); Potassium 3.1 mmol/L (3.3-5.1); Sodium 136 mmol/L (135-145); Total Protein 8.3 g/dL (6.5-8.0)
[2025-07-08 10:25] VITALS: BP 117/76; PULSE 74; RESP 16; O2SAT 95
--- OUTSIDE RECORDS SUMMARY | 2025-07-08 10:41 | XMS_ITS | Encounter Summary ---
Author Organization [employer] Address 75 [facility] 7t [place] [address] Care Team Providers Care Bio Medical Technician Name Role Phone Leesa Rapp MD Primary Care Provide r Adam Hanson RN Unavailable [phone] Cathy Rucker Unavailable Encounter Details Date Type Department Care Team ([facility] Contact Info) Description 10/30/2022 Orders Only [facility] CHC MED & PEDS [address] [place], [place] [phone] Christy Kaye LPN Social History Tobacco Use [...] Team ([facility] Contact Info) Description 07/18/2025 10:00 AM EST Office Visit [facility] MEDICINE 230 [place], [place] [phone] Danica Sharpe MD 230 [place], [place] [phone] documented as of this encounter Visit Diagnoses Not on filedocumented in this encounter Care Teams Bio Medical Technician Relationship Specialty Start Date End Date Leesa Rapp MD [address] [place] [address] [phone] PCP - General Family Medicine 10/15/19 Adam Hanson RN [address] [place] [phone] Registered Nurse Family Medicine 04/26/25 Cathy Rucker 04/26/25 Chaparrita Monsalve Edge Trimming Machine OperatorEgg Pasteurizer 05/26/25 documented as of this encounter
--- OUTSIDE RECORDS SUMMARY | 2025-07-08 10:41 | XMS_ITS | Clinical Summary ---
Author Organization [employer] [facility] it Address [address] [place] [address] Care Team Providers Care Radial Drill Operator For Plastic Name Role Phone Macy Washburn NP Primary Care Provider [phone] Social History Tobacco Use Types Packs/Day Years Used Date Smoking Tobacco: Never Assessed Comments Unknown Sex and Gender Information Value Date Recorded Sex Assigned at Not on file Legal Sex Female 2:11 AM EST Gender Identity Not on file Sexual Orientation Not on file Obstetrics History Plan of Treatment Health Maintenance Due Date Last Done Comments Colorectal Cancer Screening: Colonoscopy 1970 Cervical Cancer Screening: Pap Smear 1991 RSV Immunization Adult Patients (1 - Risk 50-74 years 1-dose series) 2020 DTaP,Tdap,and Td Vaccines (3 - Td or Tdap) 01/10/2021 01/10/2011, 09/22/2002 Zoster Vaccines (2 of 2) 12/19/2021 10/24/2021 Cholesterol Screening (Lipid Panel) 06/19/2024 Social Influencers of Health Screening 06/19/2024 Depression Screening 08/25/2024 Breast Cancer Screening 03/13/2025 03/13/2023 COVID-19 Vaccine ( - season) 2025 Influenza Vaccine (#1) 2025 , 06/25/2021, 06/18/2018, Additional history exists Hypertension/CHF/CAD Annual BMP Blood Test 06/30/2025 Hepatitis B Vaccines Completed 02/04/2018, 10/21/2011, 09/16/2011 [...] to complete this topic RSV Immunization Patients Under 20 months Aged Out No longer eligible based on patient's age to complete this topic Varicella Vaccines Aged Out No longer eligible based on patient's age to complete this topic Care Teams Radial Drill Operator For Plastic Relationship Specialty Start Date End Date Macy Washburn NP [address] [place] [phone] PCP - General 03/12/05
--- OUTSIDE RECORDS SUMMARY | 2025-07-08 10:41 | XMS_ITS | Encounter Summary ---
Author Organization [employer] Address 75 [facility] 7t [place] [address] Care Team Providers Care Cone Cleaner Name Role Phone Leesa Rapp MD Primary Care Provide r Adam Hanson RN Unavailable [phone] Cathy Rucker Unavailable Encounter Details Date Type Department Care Team (Late Contact Info) Description 11/28/2022 Abstract [facility] MEDICINE [address] [place] [phone] Leesa Rapp MD 230 [place], [place] [phone] Social History Tobacco Use Types Packs/Day Years [...] Care Team (Late st Contact Info) Description 07/18/2025 10:00 AM EST Office Visit [facility] MEDICINE 230 [place], [place] [phone] Danica Sharpe MD 230 [place], [place] [phone] documented as of this encounter Visit Diagnoses Not on filedocumented in this encounter Care Teams Cone Cleaner Relationship Specialty Start Date End Date Leesa Rapp MD 230 [place], [place] [phone] PCP - General Family Medicine 10/15/19 Adam Hanson, ANTONIO [address] [place] [phone] Registered Nurse Family Medicine 04/26/25 Cathy Rucker 04/26/25 Chaparrita Monsalve Guitar PlayerAdvanced Practice Nurse Psychotherapist 05/26/25 documented as of this encounter
--- OUTSIDE RECORDS SUMMARY | 2025-07-08 10:41 | XMS_ITS | Encounter Summary ---
Author Organization [employer] Address 75 [facility] 7t [place] [address] Care Team Providers Care Data Warehousing Manager Name Role Phone Leesa Rapp MD Primary Care Provide r Adam Hanson RN Unavailable [phone] Cathy Rucker Unavailable Reason for Visit * Reason Comments Med Refill Encounter Details Date Type Department Care Team (Late Contact Info) Description 01/31/2023 Refill [facility] CHC MED & PEDS 505 [place], [place] [phone] Christy Stockton DO 230 [place], [place] [phone] Anxiety Social History Tobacco Use Types Packs/Day [...] Department Care Team (Late Contact Info) Description 07/18/2025 10:00 AM EST Office Visit [facility] MEDICINE 230 [place] [address] Danica Sharpe MD 230 [place] [address] documented as of this encounter Visit Diagnoses Diagnosis Anxiety Anxiety state, unspecified documented in this encounter Care Teams Data Warehousing Manager Relationship Specialty Start Date End Date Leesa Rapp MD 230 [place], [place] [phone] PCP - General Family Medicine 10/15/19 Adam Hanson RN [address] [place] [phone] Registered Nurse Family Medicine 04/26/25 Cathy Rucker 04/26/25 Chaparrita Monsalve Intelligence ChiefGround Control Approach Technician 05/26/25 documented as of this encounter
--- OUTSIDE RECORDS SUMMARY | 2025-07-08 10:42 | XMS_ITS | Encounter Summary ---
Author Organization [employer] Address 75 [facility] 7t [place] [address] Care Team Providers Care Infant Teacher Name Role Phone Leesa Rapp MD Primary Care Provide r Adam Hanson RN Unavailable [phone] Cathy Rucker Unavailable Encounter Details Date Type Department Care Team ([facility] st Contact Info) Description 07/07/2025 Patient Outreach [facility] MEDICINE 230 [place] [address] Leesa Rapp MD 230 [place], [place] [phone] Social History Tobacco Use Types Packs/Day Years [...] Description 07/18/2025 10:00 AM EST Office Visit [facility] MEDICINE [address] [place] [address] Danica Sharpe MD [address] [place] [address] documented as of this encounter Visit Diagnoses Not on filedocumented in this encounter Additional Health Concerns Assessment Noted Time PHQ-9 Depression Total Score: 19 025 9:53 AM EDT documented as of this encounter Care Teams Infant Teacher Relationship Specialty Start Date End Date Leesa Rapp MD [address] [place] [address] PCP - General Family Medicine 10/15/19 Adam Hanson, ANTONIO [address] [place] [address] Registered Nurse Family Medicine 04/26/25 Cathy Rucker 04/26/25 Chaparrita Monsalve Commodity AnalystSelf Sealing Fuel Tank Repairer 05/26/25 documented as of this encounter
--- OUTSIDE RECORDS SUMMARY | 2025-07-08 10:42 | XMS_ITS | Encounter Summary ---
Author Organization [employer] Address [address] [facility] [address] 7t [place] [address] Care Team Providers Care Software Tools Developer Name Role Phone Leesa Rapp MD Primary Care Provide r Adam Hnason RN Unavailable [phone] Cathy Rucker Unavailable Encounter Details Date Type Department Care Team (Late st Contact Info) Description 07/08/2025 Orders Only GENERIC EXTERNAL DATA DEPARTMENT Provider, [...] Upcoming Encounters Date Type Department Care Team ([facility] st Contact Info) Description 07/18/2025 10:00 AM EST Office Visit [facility] MEDICINE 230 [place], [place] [phone] Danica Sharpe MD 230 [place], [place] [phone] documented as of this encounter Procedures Procedure Name Priority Date/Time Associated Diagnosis Comments SLIDE REVIEW Routine 07/08/2025 9:50 AM EST CBC WITH AUTO DIFFERENTIAL Routine 07/08/2025 9:50 AM EST LIPASE Routine 07/08/2025 9:50 AM EST COMPREHENSIVE METABOLIC PANEL Routine 07/08/2025 9:50 AM EST documented in this encounter Results * Lipase (07/08/2025 9:50 AM EST) Lipase 28 8 - 78 U/L [facility] 07/08/2025 9:50 AM EST 07/08/2025 9:53 AM EST us Generic External Data Provider LAB BLOOD ORDERAB LES Final Result [facility] [address] [place] [phone] * (ABNORMAL) Comprehensive Metabolic Panel (07/08/2025 9:50 AM EST) Sodium 136 135 - 145 mmol/L [facility] Potassium 3.1(L) 3.3 - 5.1 mmol/L [facility] Comment:Slight Hemolysis.Int erpret result with caution. Chloride 103 96 - 108 mmol/L [facility] Carbon Dioxide 21(L) 22 - 29 mmol/L [facility] Anion Gap 15 12 - 20 [facility] Urea Nitrogen (BUN) 21(H) 9 - 16 mg/dL [facility] Creatinine, Serum 1.35 0.5 - 1.4 mg/dL [facility] Creatinine Clr Calc Pharmacy 44.1 [facility] Comment:Provided height and weight: 160.02 cm,68.3 kg.eGFR (calculated from the MDRD study equation) and eCrCl(calculated from the Cockcroft-Gault equation) are based ondifferent parameters and may not yield comparable results.If eCrCl result is absurd, please check patient'sheight/weight. Estimated Glomerular Filt Rate 41 [facility] Comment:Chronic Kidney Disea se: Estimated GFR < 60 mL/min/1.50n3Bhhwcc Kidney Disease: Estimated GFR < 15 mL/min/1.73m2 Glucose 97 60 - 115 mg/dL [facility] Calcium 9.5 8.4 - 10.2 mg/dL [facility] Bilirubin, Total 0.3 0.0 - 1.0 mg/dL [facility] Aspartate Amino Transferase 27 5 - 31 U/L [facility] Comment:Slight Hemolysis.Int erpret result with caution. Alanine Aminotransferase 14 0 - 31 U/L [facility] Total Protein 8.3(H) 6.5 - 8.0 g/dL [facility] Albumin Level 4.6 3.5 - 5.0 g/dL [facility] Alkaline Phosphatase 78 39 - 117 U/L [facility] 07/08/2025 9:50 AM EST 07/08/2025 9:53 AM EST us Generic External Data Provider LAB BLOOD ORDERAB LES Final Result Performing Organization Address [facility] Co de Phone Number [facility] [address] [place] [phone] * Slide Review (07/08/2025 9:50 AM EST) Slide Review VERIFIED [facility] 07/08/2025 9:50 AM EST 07/08/2025 9:53 AM EST Generic External Data Provider LAB BLOOD ORDERAB LES Final Result Performing Organization Address [facility] de Phone Number [facility] [address] [place] [phone] * (ABNORMAL) CBC auto differential (07/08/2025 9:50 AM EST) White Blood Count 9.7 4.8 - 10.8 X10*3/uL [facility] Red Blood Count 5.40 4.20 - 5.50 X10*6/uL [facility] Hemoglobin 14.8 12.0 - 16.0 g/dl [facility] Hematocrit 43.6 37.0 - 47.0 % [facility] Mean Corpuscular Volume 80.7 80.0 - 98.0 fL [facility] Mean Corpuscular Hemoglobin 27.4 27.0 - 33.0 pg [facility] Mean Corpuscular HGB Conc 33.9 31.0 - 35.0 g/dl [facility] Red Cell Distribution Width 15.9 11.0 - 16.0 % [facility] Platelet Count 250 160 - 400 X10*3/uL [facility] Mean Platelet Volume 12.0 9.4 - 12.3 fL [facility] Neutrophils Percent Auto 60.3 45 - 73 % [facility] Imm Gran Pct Auto 0.6(H) 0.0 - 0.4 % [facility] Lymphocytes Percent Auto 18.3(L) 20 - 40 % [facility] Monocytes Percent Auto 20.2(H) 2 - 11 % [facility] Eosinophils Percent Auto 0.2 0 - 4 % [facility] Basophils Percent Auto 0.4 0 - 2 % [facility] NRBC Pct Auto 0.0 0.0 - 0.2 /100WBC [facility] Neutrophils Absolute Auto 5.8 2.0 - 8.3 x10*3/uL [facility] Imm Gran Abs Auto 0.06(H) 0.00 - 0.03 X10*3/uL [facility] Lymphocytes Absolute Auto 1.8 1.2 - 4.9 X10*3/uL [facility] Monocytes Absolute Auto 2.0(H) 0.1 - 1.2 X10*3/uL [facility] Eosinophils Absolute Auto 0.0 0.0 - 0.4 X10*3/uL [facility] Basophils Absolute Auto 0.0 0.0 - 0.2 X10*3/uL [facility] NRBC Abs Auto 0.000 0.0 - 0.012 X10*3/uL [facility] 07/08/2025 9:50 AM EST 07/08/2025 9:53 AM EST us Generic External Data Provider LAB BLOOD ORDERAB LES Edited Result - Final Performing Organization Address City/State/[facility] Co de Phone Number [facility] [address] [place] [phone] documented in this encounter Visit Diagnoses Not on filedocumented in this encounter Additional Health Concerns Assessment Noted Time PHQ-9 Depression Total Score: 19 04/07/ 025 9:53 AM EDT documented as of this encounter Care Teams Software Tools Developer Relationship Specialty Start Date End Date Leesa Rapp MD [address] [place] [phone] PCP - General Family Medicine 10/15/19 Adam Hanson RN [address] [place] [address] Registered Nurse Family Medicine 04/26/25 Cathy Rucker 04/26/25 Chaparrita Monsalve Solar Lab TechnicianGame Breeding Farm Manager 05/26/25 documented as of this encounter
--- OUTSIDE RECORDS SUMMARY | 2025-07-08 10:42 | XMS_ITS | Encounter Summary ---
Author Organization [employer] Address 75 [facility] 7t [place] [address] Care Team Providers Care Justice Professor Name Role Phone Leesa Rapp MD Primary Care Provide r Adam Hanson RN Unavailable [phone] Cathy Rucker Unavailable Reason for Visit * Reason Comments Med Refill Encounter Details Date Type Department Care Team (Late Contact Info) Description 12/31/2022 Refill [facility] MEDICINE 230 [place] [address] Vee Harris MD 230 [place], [place] [phone] Moderate persistent asthma without complication Social History [...] Description 07/18/2025 10:00 AM EST Office Visit [facility] MEDICINE [address] [place], [place] [phone] Danica Sharpe MD [address] [place], [place] [phone] documented as of this encounter Visit Diagnoses Diagnosis Moderate persistent asthma without complication documented in this encounter Care Teams Justice Professor Relationship Specialty Start Date End Date Leesa Rapp MD [address] [place] [address] [phone] PCP - General Family Medicine 10/15/19 Adam Hanson, ANTONIO [address] [place] [phone] Registered Nurse Family Medicine 04/26/25 Cathy Rucker 04/26/25 Chaparrita Monsalve Clerical AdministratorGlass Wool Blanket Machine Feeder 05/26/25 documented as of this encounter
--- OUTSIDE RECORDS SUMMARY | 2025-07-08 10:42 | XMS_ITS | Encounter Summary ---
Author Organization [employer] Address 75 [facility] 7t [place] [address] Care Team Providers Care Weather Stripper Name Role Phone Leesa Rapp MD Primary Care Provide r Adam Hanson RN Unavailable [phone] Cathy Rucker Unavailable Reason for Visit * Reason Comments Med Refill Encounter Details Date Type Department Care Team (Late Contact Info) Description 04/28/2023 Refill [facility] MEDICINE [address] [place] [address] [phone] Christy Stockton DO 230 [place], [place] [phone] Healthcare maintenance Social History Tobacco Use Types [...] Description 07/18/2025 10:00 AM EST Office Visit [facility] MEDICINE [address] [place] [address] [phone] Danica Sharpe MD 230 [place] [address] documented as of this encounter Visit Diagnoses Diagnosis Healthcare maintenance documented in this encounter Care Teams Weather Stripper Relationship Specialty Start Date End Date Leesa Rapp MD 230 [place], [place] [phone] PCP - General Family Medicine 10/15/19 Adam Hanson, ANTONIO [address] [place] [phone] Registered Nurse Family Medicine 04/26/25 Cathy Rucker 04/26/25 Chaparrita Monsalve It Help Desk TechnicianFinal Inspector Paper 05/26/25 documented as of this encounter
--- OUTSIDE RECORDS SUMMARY | 2025-07-08 10:42 | XMS_ITS | Clinical Summary ---
Demographics Address [address] [place] [address] Mobile Phone Home Phone Preferred Language Hungarian; Castilian Marital Status /Civil Union Tenriism Affiliation Unknown Race Other Race Ethnic Group or Author Organization [facility] Address [address] [address] Phone Support Name Relationship Address Phone Judie Nunez Personal Relationship Unknown [phone] Minesh Munson Personal Relationship [address] [place] [address] Care Team Providers Care Blemish Remover Name Role Phone Leesa Steven MD Primary [...] patient's age to complete this topic IPV VACCINES Aged Out No longer eligi ble based on patient's age to complete this topic MENINGOCOCCAL VACCINES (ACWY) Aged Out No longer eligible based on patient's age to complete this topic MENINGOCOCCAL VACCINES (B) Aged Out N o longer eligible based on patient's age to complete this topic Medical Devices Not on file Insurance [facility] C3 ACO C3 ACO C[address] [place] [address] C3 ACO C3 ACO C3 ACO C3 ACO [facility] [place] [place] [address] [place] [address] C3 ACO Care Teams Blemish Remover Relationship Specialty Start Date End Date Leesa Steven MD [address] [place] [address] PCP - General Internal Medicine 12/18/20 Additional Source Comments The information contained in this document represents components of the legal health record. It is not the complete legal health record.[facility]
--- OUTSIDE RECORDS SUMMARY | 2025-07-08 10:42 | XMS_ITS | Encounter Summary ---
Author Organization [employer] Address 75 [facility] 7t [place] [address] Care Team Providers Care Rouge Mixer Name Role Phone Leesa Rapp MD Primary Care Provide r Adam Hanson RN Unavailable [phone] Cathy Rucker Unavailable Reason for Visit * Reason Comments Pre-visit Planning HDF- scheduled and S MARIE screening completed on 11/08/2024 Encounter Details Date Type Department Care Team (Late st Contact Info) Description 07/06/2025 Patient Outreach [facility] MEDICINE 230 [place], [place] [phone] Leesa Rapp MD 230 [place], [place] [phone] Pre-visit Planning (HDF- scheduled and SDOH screening completed on [...] * Significant Event - Debra Connor - 07/06/2025 9:07 AM EST 07/06/25 0855 Hospital Discharges and Admission for [facility] Type of Visit Hospital Admission Date of Admission/Visit 06/30/25 Date of Discharge 07/05/25 [facility] Diagnosis Crohn's disease, Crohn's colitis, Immunosuppressed status Disposition Discharged Home Follow-Up Actions Follow-Up Needed Provider appointment Follow-Up Outcome Spoke to Patient;Booked Appointment Initial Contact Date 07/06/25 BIGG Thomas placed outbound call to patient for HDF outreach. Patient's name and were confirmed. Patient educated on the importance of follow up with provider following inpatient admission. Patient offered an HDF appt. Patient is agreeable to an appointment and has been scheduled for 07/06/2025 at 10:00am with . Insurance verified prior to scheduling. Patient advised to bring toappointment a photo id and insurance card. Patient also notified that a health center pharmacist will be reaching out to them via telephone prior to their scheduled appointment in order to review their medications in preparation for their appointment. Patient provided with education on contacting the Health Center with any questions or concerns prior to the scheduled appointment. Patient educatedon extended clinic hours on Mondays and Wednesdays, and Walk-In Urgent Care Located in [facility] of [facility]. Patient provided with after-hours line for [facility], , which offer night time triage service and option to transfer to motion graphics artist provider if needed. CC scanned discharge summary into patient's [facility]. Biggest concern for appointment at this time is the provider from the ER prescribed Percocet 10 mg Q:10 but it needs a PA. Message sent to team nurses to review and follow up with patient. Appropriate screenings completed in anticipation of appointment. documented in this encounter Plan of Treatment Upcoming Encounters Date Type Department Care Team (Late st Contact Info) Description 07/18/2025 10:00 AM EST Office Visit [facility] MEDICINE [address] [place] [address] Danica Sharpe MD 230 [place] [phone] documented as of this encounter Visit Diagnoses Not on filedocumented in this encounter Additional Health Concerns Assessment Noted Time PHQ-9 Depression Total Score: 19 025 9:53 AM EDT documented as of this encounter Care Teams Rouge Mixer Relationship Specialty Start Date End Date Leesa Rapp MD 230 [place] [address] PCP - General Family Medicine 10/15/19 Adam Hanson, ANTONIO [address] [place] [address] Registered Nurse Family Medicine 04/26/25 Cathy Rucker 04/26/25 Chaparrita Monsalve Experimental Electronics DeveloperEntomology Teacher 05/26/25 documented as of this encounter
--- OUTSIDE RECORDS SUMMARY | 2025-07-08 10:42 | XMS_ITS | Encounter Summary ---
Author Organization [employer] Address 75 [facility] 7t [place] [address] Care Team Providers Care Husbandry Technician Name Role Phone Leesa Rapp MD Primary Care Provide r Adam Hanson RN Unavailable [phone] Cathy Rucker Unavailable Encounter Details Date Type Department Care Team ([facility] st Contact Info) Description 07/04/2025 Patient Outreach [facility] MEDICINE 230 [place] [address] Leesa Rapp MD 230 [place], [place] [phone] Social History Tobacco Use Types Packs/Day Years [...] Description 07/18/2025 10:00 AM EST Office Visit [facility] MEDICINE [address] [place] [address] Danica Sharpe MD [address] [place] [address] documented as of this encounter Visit Diagnoses Not on filedocumented in this encounter Additional Health Concerns Assessment Noted Time PHQ-9 Depression Total Score: 19 025 9:53 AM EDT documented as of this encounter Care Teams Husbandry Technician Relationship Specialty Start Date End Date Leesa Rapp MD [address] [place] [address] PCP - General Family Medicine 10/15/19 Adam Hanson, ANTONIO [address] [place] [phone] Registered Nurse Family Medicine 04/26/25 Cathy Rucker 04/26/25 Chaparrita Monsalve Packing SupervisorReservation Manager 05/26/25 documented as of this encounter
--- OUTSIDE RECORDS SUMMARY | 2025-07-08 10:42 | XMS_ITS | Encounter Summary ---
Author Organization [employer] Address [address] [facility] 7t [place] [address] Care Team Providers Care Php Architect Name Role Phone Leesa Rapp MD Primary Care Provide r Adam Hanson RN Unavailable [phone] Cathy Rucker Unavailable Reason for Visit * Reason Comments Med Refill Encounter Details Date Type Department Care Team ([facility] st Contact Info) Description 09/03/2023 Refill [facility] [address] [place], [place] [phone] Rohini Meade MD [address] [place], [place] [phone] Chronic nonintractable headache, unspecified headache type Social [...] 10:00 AM EST Office Visit [facility] MEDICINE [address] [place] [address] Danica Sharpe MD [address] [place] [address] documented as of this encounter Visit Diagnoses Diagnosis Chronic nonintractable headache, unspecified headache type documented in this encounter Care Teams Php Architect Relationship Specialty Start Date End Date Leesa Rapp MD [address] [place] [phone] PCP - General Family Medicine 10/15/19 Adam Hanson RN [address] [place] [address] Registered Nurse Family Medicine 04/26/25 Cathy Rucker 04/26/25 Chaparrita Monsalve Physical AnthropologistManager Talent Management 05/26/25 documented as of this encounter
--- OUTSIDE RECORDS SUMMARY | 2025-07-08 10:42 | XMS_ITS | Encounter Summary ---
Author Organization [employer] Address [address] [facility] 7t [place] [address] Care Team Providers Care Paper Cone Machine Operator Name Role Phone Leesa Rapp MD Primary Care Provide r Adam Hanson RN Unavailable [phone] Cathy Rucker Unavailable Reason for Visit * Reason Comments Med Refill Encounter Details Date Type Department Care Team ([facility] st Contact Info) Description 05/09/2024 Refill [facility] 230 [place], [place] [phone] Leesa Rapp MD 230 [place], [place] [phone] Vitamin D deficiency; Healthcare maintenance; Anxiety Social [...] 07/18/2025 10:00 AM EST Office Visit [facility] MED[facility] [address] [place] [address] Danica Sharpe MD [address] [place] [address] documented as of this encounter Visit Diagnoses Diagnosis Vitamin D deficiency Healthcare maintenance Anxiety Anxiety state, unspecified documented in this encounter Additional Health Concerns Assessment Noted Time PHQ-9 Depression Total Score: 0 02/20/20 24 1:02 PM EDT documented as of this encounter Care Teams Paper Cone Machine Operator Relationship Specialty Start Date End Date Leesa Rapp MD [address] [place] [address] PCP - General Family Medicine 10/15/19 Adam Hanson RN [address] [place] [address] Registered Nurse Family Medicine 04/26/25 Cathy Rucker 04/26/25 Chaparrita Monsalve Physician Relations ManagerDrawing Tracer 05/26/25 documented as of this encounter
--- OUTSIDE RECORDS SUMMARY | 2025-07-08 10:42 | XMS_ITS | Encounter Summary ---
Author Organization [email or web address] Address 75 [facility] 7t [place] [address] Care Team Providers Care Bracelet Maker Novelty Name Role Phone Leesa Rapp MD Primary Care Provide r Adam Hanson RN Unavailable [phone] Cathy Rucker Unavailable Reason for Visit * Reason Comments Med Refill Encounter Details Date Type Department Care Team ([facility] st Contact Info) Description 04/29/2024 Refill [facility] MED[facility] 230 [place], [place] [phone] Leesa Rapp MD [address] [place], [place] [phone] Anxiety Social History Tobacco Use Types Packs/Day [...] Description 07/18/2025 10:00 AM EST Office Visit [facility] MEDICINE [address] [place] [address] Danica Sharpe MD [address] [place] [address] documented as of this encounter Visit Diagnoses Diagnosis Anxiety Anxiety state, unspecified documented in this encounter Additional Health Concerns Assessment Noted Time PHQ-9 Depression Total Score: 0 02/20/20 24 1:02 PM EDT documented as of this encounter Care Teams Bracelet Maker Novelty Relationship Specialty Start Date End Date Leesa Rapp MD [address] [place] [address] PCP - General Family Medicine 10/15/19 Adam Hanson RN [address] [place] [address] Registered Nurse Family Medicine 04/26/25 Cathy Rucker 04/26/25 Chaparrita Monsalve Physical Damage AppraiserEmployee Services Manager 05/26/25 documented as of this encounter
--- OUTSIDE RECORDS SUMMARY | 2025-07-08 10:42 | XMS_ITS | Encounter Summary ---
Author Organization [employer] Address [address] [facility] 7t [place] [address] Care Team Providers Care Clinical Material Handler Name Role Phone Leesa Rapp MD Primary Care Provide r Adam Hanson RN Unavailable [phone] Cathy Rucker Unavailable Encounter Details Date Type Department Care Team (Late st Contact Info) Description 05/02/2025 Orders Only [facility] 230 [place] [address] Leesa Rapp MD 230 [place], [place] [phone] Social History Tobacco Use Types Packs/Day Years [...] Description 07/18/2025 10:00 AM EST Office Visit [facility] [address] [place] [address] Danica Sharpe MD [address] [place] [address] documented as of this encounter Visit Diagnoses Not on filedocumented in this encounter Additional Health Concerns Assessment Noted Time PHQ-9 Depression Total Score: 19 025 9:53 AM EDT documented as of this encounter Care Teams Clinical Material Handler Relationship Specialty Start Date End Date Leesa Rapp MD [address] [place] [address] PCP - General Family Medicine 10/15/19 Adam Hanson, ANTONIO [address] [place] [address] Registered Nurse Family Medicine 04/26/25 Cathy Rucker 04/26/25 Chaparrita Monsalve DosimetristSupervisor Metal Fabricating 05/26/25 documented as of this encounter
--- OUTSIDE RECORDS SUMMARY | 2025-07-08 10:43 | XMS_ITS | Encounter Summary ---
Author Organization [employer] Address [address] [facility] 7t [place] [address] Care Team Providers Care Asset Analyst Name Role Phone Leesa Rapp MD Primary Care Provide r Adam Hanson RN Unavailable Cathy Rucker Unavailable Reason for Visit * Reason Comments Med Refill Encounter Details Date Type Department Care Team (Late st Contact Info) Description 12/10/2024 Refill [facility] [address] [place], [place] [phone] Leesa Rapp MD 230 [place] [address] Anxiety Social History Tobacco Use Types Packs/Day [...] Description 07/18/2025 10:00 AM EST Office Visit [facility] MED[facility] [address] [place] [address] Danica Sharpe MD [address] [place] [address] documented as of this encounter Visit Diagnoses Diagnosis Anxiety Anxiety state, unspecified documented in this encounter Additional Health Concerns Assessment Noted Time PHQ-9 Depression Total Score: 0 02/20/20 24 1:02 PM EDT documented as of this encounter Care Teams Asset Analyst Relationship Specialty Start Date End Date Leesa Rapp MD [address] [place] [address] PCP - General Family Medicine 10/15/19 Adam Hanson, ANTONIO [address] [place] [address] Registered Nurse Family Medicine 04/26/25 Cathy Rucker 04/26/25 Chaparrita Monsalve Environmental Monitoring TechnicianWaiter/Waitress Cabin Class 05/26/25 documented as of this encounter
--- OUTSIDE RECORDS SUMMARY | 2025-07-08 10:43 | XMS_ITS | Encounter Summary ---
Author Organization [employer] Address 75 [facility] 7t [place] [address] Care Team Providers Care Hot Strip Finisher Name Role Phone Leesa Rapp MD Primary Care Provide r Adam Hanson RN Unavailable [phone] Cathy Rucker Unavailable Reason for Visit * Reason Comments Med Refill Encounter Details Date Type Department Care Team (Late st Contact Info) Description 12/01/2024 Refill [facility] [address] [place], [place] [phone] Leesa Rapp MD 230 [place] [address] Anxiety Social History Tobacco Use Types Packs/Day [...] Description 07/18/2025 10:00 AM EST Office Visit [facility] MEDICINE [address] [place] [address] Danica Sharpe MD 230 [place] [address] documented as of this encounter Visit Diagnoses Diagnosis Anxiety Anxiety state, unspecified documented in this encounter Additional Health Concerns Assessment Noted Time PHQ-9 Depression Total Score: 0 02/20/20 24 1:02 PM EDT documented as of this encounter Care Teams Hot Strip Finisher Relationship Specialty Start Date End Date Leesa Rapp MD [address] [place] [address] PCP - General Family Medicine 10/15/19 Adam Hanson, ANTONIO [address] [place] [address] Registered Nurse Family Medicine 04/26/25 Cathy Rucker 04/26/25 Chaparrita Monsalve Director Of ClaimsTie Hacker 05/26/25 documented as of this encounter
--- OUTSIDE RECORDS SUMMARY | 2025-07-08 10:43 | XMS_ITS | Clinical Summary ---
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 Name Role Phone Leesa Rapp MD Primary Care Provide r Adam Hanson RN Unavailable [phone] Cathy Rucker Unavailable Allergies Active Allergy Reactions Criticality Noted Date Comments Aspirin Hives High 08/16/2010 Other reaction(s): rash Azathioprine High 08/16/2010 Other reaction(s): pancreatitis, unspecified, vomiting Ibuprofen High 02/05/2024 Other Reaction(s): TOLD NOT TO TAKE Levofloxacin 09/26/2017 Other reaction(s): yeast infection Medications folic acid (Folvite) 1 MG tablet TAKE 1 TABLET BY MOUTH EVERY MORNING 10/25/19 23 Active methotrexate 2.5 MG tablet TAKE 10 TABLETS BY MOUTH ONCE WEEKLY 10/25/19 23 Active naloxone (Narcan) 4 mg/0.1 mL nasal spray spray 0.1 milliliter by intranasal route once in 1 nostril may repeat dose every 2-3 minutes as needed alternating nostrils with each dose 03/20/20 21 Active docusate sodium (Colace) 100 MG capsuleIndications :Chronic constipation TAKE 1 CAPSULE BY MOUTH TWICE DAILY IN THE MORNING AND IN THE EVENING 180 capsule 1 12/29/19 24 Active melatonin 5 MG tablet Take 1 tablet by mouth at bedtime. 01/05/20 24 Active Acetaminophen Extra Strength 500 MG tablet Take 1 tablet by mouth every 6 (six) hours if needed. 02/04/20 24 Active famotidine (Pepcid) 20 MG tablet TAKE 1 TABLET BY MOUTH TWICE DAILY NEEDED FOR DISCOMFORT OF THE ABDOMEN 01/29/20 24 Active zolpidem (Ambien) 5 MG tabletIndications: Primary insomnia TAKE 1 TABLET BY MOUTH AT BEDTIME NEEDED FOR SLEEP 30 tablet 02/16/20 24 Active lactulose (Chronulac) 10 GM/15ML solution Take 30 mL by mouth Once per day. 02/12/20 24 Active polyethylene glycol, PEG, 3350 (Glycolax) 17 GM/SCOOP powder MIX 17G (1 CAPFUL) IN 8 OUNCES OF WATER AND TAKE BY MOUTH TWICE A DAY 02/12/20 24 Active polyvinyl alcohol (Liquifilm Tears) 1.4 % ophthalmic solution INSTILL 1 DROP INTO THE AFFECTED EYE(S) THREE TIMES DAILY IN THE MORNING, AT NOON, AND AT BEDTIME NEEDED FOR DRY EYES 02/20/20 24 Active albuterol (2.5 MG/3ML) 0.083% nebulizer solutionIndication s:Moderate persistent asthma, unspecified whether complicated Take 3 mL (2.5 mg) by nebulization every 4 (four) hours if needed for wheezing. 75 mL 3 03/22/20 24 Active fluticasone (Flonase) 50 MCG/ACT nasal sprayIndications:S easonal allergic rhinitis, unspecified trigger Administer 1 spray into each nostril Once per day. 16 g 3 05/19/20 24 Active LORazepam (Ativan) 0.5 MG tabletIndications: Fear of flying Take 1 tablet (0.5 mg) by mouth every 6 (six) hours if needed for anxiety (use before flight) for up to 6 doses. 6 tablet 08/12/20 24 Active ketoconazole (NIZOral) 2 % shampooIndications :Rash and nonspecific skin eruption APPLY TO THE AFFECTED AREA(S), LEAVE FOR 5 MINUTES THEN RINSE FOR 3 DAYS consecutivemente . START ON 05/20/24. 120 mL 1 09/02/19 25 Active amLODIPine (Norvasc) 2.5 MG tabletIndications: Benign hypertension Take 1 tablet (2.5 mg) by mouth Once per day. 30 tablet 11 09/15/19 25 026 Active hydroquinone 4 % creamIndications:M elasma Apply topically 2 times daily. 28.35 g 10/30/19 25 026 Active Calcium Carb-Cholecalcifer ol 600-10 MG-MCG tabletIndications: Vitamin D deficiency TAKE 1 TABLET BY MOUTH TWICE DAILY IN THE MORNING AND IN THE EVENING 180 tablet 1 02/02/20 25 Active montelukast (Singulair) 10 MG tabletIndications: Moderate persistent asthma without complication TAKE 1 TABLET BY MOUTH AT BEDTIME 90 tablet 1 02/02/20 25 Active busPIRone (Buspar) 5 MG tabletIndications: Anxiety TAKE 1 TABLET BY MOUTH EVERY DAY 90 tablet 1 02/02/20 25 Active Eliquis 2.5 MG tablet Take 1 tablet by mouth 2 times daily. 01/20/20 25 Active sertraline (Zoloft) 25 MG tablet Take 1 tablet by mouth Once per day. Active hydrOXYzine HCl (Atarax) 10 MG tablet Take 1 tablet by mouth if needed in the morning, at noon, and at bedtime for anxiety. 03/16/20 25 Active cyclobenzaprine (Flexeril) 10 MG tabletIndications: Acute pain of left shoulder,Acute left-sided thoracic back pain,Acute left-sided low back pain without sciatica Take 1 tablet (10 mg) by mouth 3 times daily for 10 days. 30 tablet 04/28/20 25 Active fluconazole (Diflucan) 150 MG tabletIndications: Vaginal discharge Take one tablet then after 72 hrs take another tablet 2 tablet 04/29/20 25 Active budesonide-formote rol (Symbicort) 160-4.5 MCG/ACT inhalerIndications :Moderate persistent asthma without complication INHALE 2 PUFFS BY MOUTH TWICE DAILY IN THE MORNING AND IN THE EVENING RINSE MOUTH AFTER USING. 10.2 g 2 05/09/20 25 Active risperiDONE (RisperDAL) 1 MG tabletIndications: Depression with anxiety TAKE 1 TABLET BY MOUTH TWICE DAILY IN THE MORNING AND IN THE EVENING 60 tablet 2 05/09/20 25 Active topiramate (Topamax) 100 MG tabletIndications: Chronic nonintractable headache, unspecified headache type TAKE 1 TABLET BY MOUTH TWICE DAILY IN THE MORNING AND AT BEDTIME 60 tablet 2 05/12/20 25 Active pantoprazole (ProtoNix) 40 MG EC tablet Take 40 mg by mouth Once per day. 04/26/20 25 Active tofacitinib (Xeljanz) 10 MG tablet Take 1 tablet by mouth 2 times daily. 04/23/20 25 Active gabapentin (Neurontin) 100 MG capsuleIndications :Anxiety TAKE 1 CAPSULE BY MOUTH TWICE DAILY 60 capsule 1 06/06/20 25 Active Multiple Vitamin (Multivitamin) tabletIndications: Healthcare maintenance TAKE 1 TABLET BY MOUTH EVERY MORNING 90 tablet 1 06/07/20 25 Active D3 Super Strength 50 MCG (1999 UT) capsuleIndications :Vitamin D deficiency TAKE 1 CAPSULE BY MOUTH EVERY MORNING 90 capsule 1 06/07/20 25 Active Active Problems Problem Noted Date Diagnosed [...] cancer screening 07/03/2023 Rash 05/26/2023 Colon stricture ([facility]/HCC) 04/27/2023 Encounter for screening mamm ogram for [...] Mixed hyperlipidemia 05/07/2018 Headache 05/29/2015 Crohn disease ([facility]) 05/29/2015 Assessment & Plan (05/18/2025 10:35 AM [...] need for ongoing prednisone - we contacted [facility] while patient was here and they provided name of patient's previous second opinion in [place] (Dr Lencho Arreola at [facility]) and confirmed that Dr Palafox [...] Plan (08/12/2024 10:57 AM EST): Stable, 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 C/w same [...] today Rheumatoid arthritis involving multiple joints ( [facility]) 05/29/2015 Assessment & Plan (04/27/2023 7:32 AM EDT): 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 She asks about pain mgmt, but the majority of her pain is intra-abdominal I think pain mgmt would have little to offer her, and that focus should be on her her Crohn's activity Vitamin D deficiency 05/29/2015 Resolved Problems Problem Noted Date Diagnosed Date Resolved Date Pulmonary embolism 11/15/2022 3 Encounters Date Type Department Care Team Description 07/08/2025 Orders Only GENERIC EXTERNAL DATA DEPARTMENT Provider, Generic External Data 07/07/2025 Patient Outreach [facility] [address] [place] [phone] Leesa Rapp MD 07/06/2025 Patient Outreach [address] [address] Leesa Rapp MD Pre-visit Planning (HDF- scheduled and SDOH screening completed on 11/08/2024) 07/04/2025 Patient Outreach [address] [address] Leesa Rapp MD 06/28/2025 Orders Only [facility] External Provider, [facility] 06/07/[address] [address] Leesa aRpp MD Healthcare maintenance; Vitamin D deficiency 06/04/2025 Refill [facility] [address] [place] [address] Leesa Rapp MD Anxiety 05/26/2025 Telephone [facility] [address] [place] [address] Leesa Rapp MD Care Coordination (ICP Care Plan) 05/24/2025 Patient Outreach [address] [address] Leesa Rapp MD Care Coordination (CM/CHW outreach) 05/23/2025 Results Follow-Up [address] [address] Vee Harris MD Sed Rate by Modified [place], C-reactive Protein, CBC auto differential, Additional followed-up results: 3 05/16/2025 2:45 PM EDT Office Visit [address] [address] Vee Harris MD Crohn's disease with complication, unspecified gastrointestinal tract location (CMS/HCC) (Primary Dx); Sexually transmitted infection 05/16/2025 Travel 05/13/[address] [address] Vee Harris MD CHART PREP 05/12/[address] [address] Leesa Rapp MD Chronic nonintractable headache, unspecified headache type 05/09/2025 Patient Outreach [address] [address] Leesa Rapp MD Care Management (C3CM- initial assessment/ enrollment. lvm) 05/09/2025 Patient Outreach [address] [address] Leesa Rapp MD Care Coordination ( Appt r/s) 05/07/[address] [address] Leesa Rapp MD Moderate persistent asthma without complication; Depression with anxiety 05/05/2025 Results Follow-Up [address] [address] Leesa Rapp MD XR Thoracic Spine 3 Views 05/04/2025 Patient Outreach [address] [address] Leesa Rapp MD Care Coordination (/CHW outreach) 05/02/2025 Patient Outreach [address] [address] Leesa Rapp MD Care Coordination (/CHW outreach) 05/02/2025 Results Follow-Up [address] [address] Leesa Rapp MD Bacterial Vaginosis Panel, POCT Urinalysis, Culture, Urine, Routine 05/02/2025 Orders Only [address] [address] Leesa Rapp MD 04/29/2025 2:45 PM EDT Office Visit [address] [address] Leesa Rapp MD Thrush, oral; Vaginal discharge 04/29/2025 Travel 04/28/2025 10:45 AM EDT Office Visit [address] [address] Leesa Rapp MD Neck pain (Primary Dx); Acute pain of left shoulder; Acute left-sided thoracic back pain; Acute left-sided low back pain without sciatica 04/28/2025 Travel 04/27/[address] [address] Leesa Rapp MD chart prep 04/27/2025 Patient Outreach [address] [address] Leesa Rapp MD Transition Of Care (Tcm) (HDF- scheduled and SDOH screening completed on 11/08/2024) 04/27/2025 Patient Outreach [address] [address] Leesa Rapp MD 04/26/2025 Patient Outreach [address] [address] Leesa Rapp MD Care Coordination (CM/CHW outreach) 04/26/2025 Patient Outreach [address] [address] Leesa Rapp MD Care Coordination (CHW chart review) 04/26/2025 Patient Outreach [address] [address] Leesa Rapp MD Care Management ([facility]- chart review) 04/26/2025 Patient Outreach [address] [address] Leesa Rapp MD 04/23/2025 Orders Only [facility] External Provider, [facility] 04/19/2025 Patient Outreach [address] [address] Leesa Rapp MD Pre-visit Planning (SDOH screening completed on 11/08/2024) 04/07/2025 9:30 AM EDT Office Visit [address] [address] Leesa Rapp MD Acute Crohn's disease, unspecified complication (CMS/HCC) (Primary Dx) 04/07/2025 Travel from Last 3 Months Immunizations Immunization Administration [...] 05/16/2025 2:29 PM EDT Plan of Treatment Upcoming Encounters Date Type Department Care Team (Late st Contact Info) Description 07/18/2025 10:00 AM EST Office Visit [facility] [address] [place] [address] Danica Sharpe MD [address] [place] [address] Health Maintenance Due Date Last Done Comments CT Colonography 1970 FIT DNA/Cologuard 1970 FIT 1970 Sigmoidoscopy 1970 COVID-19 Vaccine (#1) 1975 RSV Patients and Patients Aged 60 years or older (1 - Risk 50-74 years 1-dose series) 2020 FOBT 12/15/2020 12/16/2019, 11/30/2019 DTaP/Tdap/Td Vaccines (2 - Td or Tdap) 01/10/2021 01/10/2011, 09/22/2002 Zoster Vaccines (2 of 2) 12/19/2021 10/24/2021 Mammogram 03/13/2024 03/13/2023, 04/04/2021, 12/16/2018 Influenza Vaccine (#1) 2025 , 06/25/2021, 06/18/2018, Additional history exists Depression Monitoring 10/08/2025 04/07/2025, 025 SDOH Screening 11/08/2025 11/08/2024 Alcohol/Substance Use Screening 02/16/2026 02/16/2025 Disability Screening 02/16/2026 02/16/2025 Tobacco Screening 05/16/2026 05/16/2025 Colonoscopy 11/08/2026 11/08/2024 Colorectal Cancer Screening 11/08/2026 Cervical Cancer Screening 07/03/2028 HPV/Cotest 07/03/2028 07/03/2023 Pap Smear 07/03/2028 07/03/2023, 07/03/2023 Lipid Panel 05/19/2029 05/19/2024, 11/17/2020 Hepatitis B Vaccines Completed 02/04/2018, 10/21/2011, 09/16/2011 [...] Procedure Name Priority Date/Time Associated Diagnosis Comments LIPASE Routine 07/08/2025 9:50 AM EST COMPREHENSIVE METABOLIC PANEL Routine 07/08/2025 9:50 AM EST SLIDE REVIEW Routine 07/08/2025 9:50 AM EST CBC WITH AUTO DIFFERENTIAL Routine 07/08/2025 9:[address] ENTEROGRAPHY ABDOMEN PELVIS W CONTRAST Routine 07/04/2025 11:[address] ABDOMEN PELVIS W CONTRAST Routine 06/28/2025 7:39 AM EST RPR (MONITOR) W/REFL TITER Routine 05/18/2025 2:11 [...] Recently Relevant to Health Maintenance Results * Slide Review (07/08/2025 9:50 AM EST) Slide Review VERIFIED [facility] 07/08/2025 9:50 AM EST 07/08/2025 9:53 AM EST us Generic External Data Provider LAB BLOOD ORDERAB LES Final Result [facility] [address], [place] [phone] * (ABNORMAL) CBC auto differential (07/08/2025 9:50 AM EST) Only the most recent of2 resultswithin the time period is included. White Blood Count 9.7 4.8 - 10.8 X10*3/uL [facility] Red Blood Count 5.40 4.20 - 5.50 X10*6/uL [facility] Hemoglobin 14.8 12.0 - 16.0 g/dl [facility] Hematocrit 43.6 37.0 - 47.0 % [facility] Mean Corpuscular Volume 80.7 80.0 - 98.0 fL [facility] Mean Corpuscular Hemoglobin 27.4 27.0 - 33.0 pg [facility] Mean Corpuscular HGB Conc 33.9 31.0 - 35.0 g/dl [facility] Red Cell Distribution Width 15.9 11.0 - 16.0 % [facility] Platelet Count 250 160 - 400 X10*3/uL [facility] Mean Platelet Volume 12.0 9.4 - 12.3 fL [facility] Neutrophils Percent Auto 60.3 45 - 73 % [facility] Imm Gran Pct Auto 0.6(H) 0.0 - 0.4 % [facility] Lymphocytes Percent Auto 18.3(L) 20 - 40 % [facility] Monocytes Percent Auto 20.2(H) 2 - 11 % [facility] Eosinophils Percent Auto 0.2 0 - 4 % [facility] Basophils Percent Auto 0.4 0 - 2 % [facility] NRBC Pct Auto 0.0 0.0 - 0.2 /100WBC [facility] Neutrophils Absolute Auto 5.8 2.0 - 8.3 x10*3/uL [facility] Imm Gran Abs Auto 0.06(H) 0.00 - 0.03 X10*3/uL [facility] Lymphocytes Absolute Auto 1.8 1.2 - 4.9 X10*3/uL [facility] Monocytes Absolute Auto 2.0(H) 0.1 - 1.2 X10*3/uL [facility] Eosinophils Absolute Auto 0.0 0.0 - 0.4 X10*3/uL [facility] Basophils Absolute Auto 0.0 0.0 - 0.2 X10*3/uL [facility] NRBC Abs Auto 0.000 0.0 - 0.012 X10*3/uL [facility] 07/08/2025 9:50 AM EST 07/08/2025 9:53 AM EST Generic External Data Provider LAB BLOOD ORDERAB LES Edited Result - Final Performing Organization Address City/[facility]/ZIP Co de Phone Number [facility] [address] [place] [phone] * Lipase (07/08/2025 9:50 AM EST) Lipase 28 8 - 78 U/L [facility] 07/08/2025 9:50 AM EST 07/08/2025 9:53 AM EST Generic External Data Provider LAB BLOOD ORDERAB LES Final Result Performing Organization Address [facility] Co de Phone Number [facility] [address] [place] [phone] * (ABNORMAL) Comprehensive Metabolic Panel (07/08/2025 9:50 AM EST) Sodium 136 135 - 145 mmol/L [facility] Potassium 3.1(L) 3.3 - 5.1 mmol/L [facility] Comment:Slight Hemolysis.Int erpret result with caution. Chloride 103 96 - 108 mmol/L [facility] Carbon Dioxide 21(L) 22 - 29 mmol/L [facility] Anion Gap 15 12 - 20 [facility] Urea Nitrogen (BUN) 21(H) 9 - 16 mg/dL [facility] Creatinine, Serum 1.35 0.5 - 1.4 mg/dL [facility] Creatinine Clr Calc Pharmacy 44.1 [facility] Comment:Provided height and weight: 160.02 cm,68.3 kg.eGFR (calculated from the MDRD study equation) and eCrCl(calculated from the Cockcroft-Gault equation) are based ondifferent parameters and may not yield comparable results.If eCrCl result is absurd, please check patient'sheight/weight. Estimated Glomerular Filt Rate 41 [facility] Comment:Chronic Kidney Disea se: Estimated GFR < 60 mL/min/1.90v8Gebvog Kidney Disease: Estimated GFR < 15 mL/min/1.73m2 Glucose 97 60 - 115 mg/dL [facility] Calcium 9.5 8.4 - 10.2 mg/dL [facility] Bilirubin, Total 0.3 0.0 - 1.0 mg/dL [facility] Aspartate Amino Transferase 27 5 - 31 U/L [facility] Comment:Slight Hemolysis.Int erpret result with caution. Alanine Aminotransferase 14 0 - 31 U/L [facility] Total Protein 8.3(H) 6.5 - 8.0 g/dL [facility] Albumin Level 4.6 3.5 - 5.0 g/dL [facility] Alkaline Phosphatase 78 39 - 117 U/L [facility] 07/08/2025 9:50 AM EST 07/08/2025 9:53 AM EST us Generic External Data Provider LAB BLOOD ORDERAB LES Final Result [facility] [address] [place] [phone] * CT Enterography Abdomen Pelvis w/ Contrast (07/04/2025 11:10 AM EST) Anatomical Region Laterality Modality Computed Tomogra phy 07/04/2025 11:1 0 AM EST Narrative 07/04/2025 12:01 PM EST [address] [address] [address] Scan Report Signed Patient: Leesa Reyes MR#: [id number] : 1970 Acct:[id number] Age/Sex: 54 / F ADM Date: 06/30/25 Loc: .S3 358-[address]: Lonny Huang MD Ordering Physician: Lonny Jimenez MD Date of Service: 07/04/25 Procedure(s): CT enterography Accession Number(s): [id number] cc: Lonny Jimenez MD; Leesa Rapp MD Report Number: [id number]: Total DLP = 385.00 mGy-cm Reason for Exam: diarrhea, colitis EXAMINATION: CT ENTEROGRAPHY ABDOMEN AND PELVIS WITH CONTRAST CLINICAL INFORMATION: diarrhea, colitis COMPARISON: June 28, 2025 TECHNIQUE: Study performed with oral VoLumen (1350 mL) and 480 mL of water to distend the abdomen. The patient was injected with 85 mL Omnipaque 350 intravenous contrast which was administered without adverse effect. Coronal and sagittal reformatted images were obtained at the technologist's workstation. This CT examination was performed using dose optimization techniques as appropriate, variously including the following: *Automated exposure control *Adjustment of mA and/or kV according to patient size (this includes techniques or standardized protocols for targeted exams where dose is matched to indication/reason for exam; i.e. extremities or head) *Use of iterative reconstruction technique FINDINGS: GASTROINTESTINAL FINDINGS: Stomach: Well-distended and normal in appearance. Small intestine: The distal ileum at Junction with cecum demonstrates narrowing of the lumen without wall thickening or fat stranding. There is an end to end anastomosis in the distal ileum, low in the central pelvis. Anastomosis appears widely patent. There is surgical scar in the abdominal wall in the right lower quadrant. There is also mesh in the anterior abdominal wall. Loops of small bowel appear adherent to the deep surface of the right rectus abdominis muscle in this region. However, there is no upstream small bowel dilation to suggest obstruction. Large intestine: Again seen is an end to end anastomosis at the rectosigmoid junction. There is mild wall thickening of the rectum and in the region of the anastomosis. Thickening appears decreased when compared to the most recent prior. Well-distended and normal in appearance. No perirectal changes demonstrated. The appendix is normal. Additional findings: No abnormal enhancement of the vasa recta or significant mesenteric or retroperitoneal lymphadenopathy is seen. No abdominal abscess or fistulous tract demonstrated. ABDOMINAL AND PELVIC CT FINDINGS: Liver, gallbladder, biliary tract: There is focal fatty change along the fissure for ligamentum teres. Liver and gallbladder are otherwise unremarkable. Pancreas: Unremarkable Spleen: Unremarkable Adrenal glands and kidneys: There is a 3 mm nonobstructing stone in the upper pole left kidney. Ureters and bladder: Unremarkable Lymphovascular structures: Minimal atherosclerotic ossifications are present. There is no adenopathy. Uterus and ovaries are unremarkable. Bones: Moderate degenerative disc disease present at L5-S1. There is no evidence of sacroiliitis. Lung bases: Clear CT/CT enterography IMPRESSION: Thickening of the rectum and the rectosigmoid anastomosis is improved compared to the prior study. There are postsurgical changes related to a large mesh that has been placed across anterior abdomen. Small bowel loops appear adherent to the anterior peritoneum through this region but there is no sign of obstruction. There is a 3 mm nonobstructing stone in the upper pole the left kidney. Electronically signed by: Tomer Miles MD 07/04/2025 11:57 AM EST Dictated By: Tomer Miles MD Signed By: <Electronically signed by Tomer Miles MD in OV> 07/04/25 1157 DD/ 1110 TD/TT: 07/04/25 1137 Antenna Design Engineer: Procedure Note Donotuseinterpreter, Image - 07/04/[address] [address] [address] Scan Report Signed Patient: Leesa Reyes [facility]#: [id number] : 1970Acct:[id number] Age/Sex: 54 / FADM Date: 06/30/25 Loc: .S3 358-[address]: Lonny Huang MD Ordering Physician: Lonny Jimenez MD Date of Service: 07/04/25 Procedure(s): CT enterography Accession Number(s): [id number] cc: Lonny Jimenez MD; Leesa Rapp MD Report Number: [id number]: Total DLP = 385.00 mGy-cm Reason for Exam: diarrhea, colitis EXAMINATION: CT ENTEROGRAPHY ABDOMEN AND PELVIS WITH CONTRAST CLINICAL INFORMATION: diarrhea, colitis COMPARISON: June 28, 2025 TECHNIQUE: Study performed with oral VoLumen (1350 mL) and 480 mL of water to distend the abdomen. The patient was injected with 85 mL Omnipaque 350 intravenous contrast which was administered without adverse effect. Coronal and sagittal reformatted images were obtained at the technologist's workstation. This CT examination was performed using dose optimization techniques as appropriate, variously including the following: *Automated exposure control *Adjustment of mA and/or kV according to patient size (this includes techniques or standardized protocols for targeted exams where dose is matched to indication/reason for exam; i.e. extremities or head) *Use of iterative reconstruction technique FINDINGS: GASTROINTESTINAL FINDINGS: Stomach: Well-distended and normal in appearance. Small intestine: The distal ileum at Junction with cecum demonstrates narrowing of the lumen without wall thickening or fat stranding. There is an end to end anastomosis in the distal ileum, low in the central pelvis. Anastomosis appears widely patent. There is surgical scar in the abdominal wall in the right lower quadrant. There is also mesh in the anterior abdominal wall. Loops of small bowel appear adherent to the deep surface of the right rectus abdominis muscle in this region. However, there is no upstream small bowel dilation to suggest obstruction. Large intestine: Again seen is an end to end anastomosis at the rectosigmoid junction. There is mild wall thickening of the rectum and in the region of the anastomosis. Thickening appears decreased when compared to the most recent prior. Well-distended and normal in appearance. No perirectal changes demonstrated. The appendix is normal. Additional findings: No abnormal enhancement of the vasa recta or significant mesenteric or retroperitoneal lymphadenopathy is seen. No abdominal abscess or fistulous tract demonstrated. ABDOMINAL AND PELVIC CT FINDINGS: Liver, gallbladder, biliary tract: There is focal fatty change along the fissure for ligamentum teres. Liver and gallbladder are otherwise unremarkable. Pancreas: Unremarkable Spleen: Unremarkable Adrenal glands and kidneys: There is a 3 mm nonobstructing stone in the upper pole left kidney. Ureters and bladder: Unremarkable Lymphovascular structures: Minimal atherosclerotic ossifications are present. There is no adenopathy. Uterus and ovaries are unremarkable. Bones: Moderate degenerative disc disease present at L5-S1. There is no evidence of sacroiliitis. Lung bases: Clear CT/CT enterography IMPRESSION: Thickening of the rectum and the rectosigmoid anastomosis is improved compared to the prior study. There are postsurgical changes related to a large mesh that has been placed across anterior abdomen. Small bowel loops appear adherent to the anterior peritoneum through this region but there is no sign of obstruction. There is a 3 mm nonobstructing stone in the upper pole the left kidney. Electronically signed by: Tomer Miles MD 07/04/2025 11:57 AM EST Dictated By: Tomer Miles MD Signed By: <Electronically signed by Tomer Miles MD in OV> 07/04/25 1157 DD/ 1110 TD/TT: 07/04/25 1137 Antenna Design Engineer: [facility] External Provider IMG CT PROCEDURES Edited Result - Final * CT Abdomen Pelvis w/ Contrast (06/28/2025 7:39 AM EST) Only the most recent of2 resultswithin the time period is included. Anatomical Region Laterality Modality Body, Pelvis, Abdomen Computed T omography 06/28/2025 7:39 AM EST Narrative 06/28/2025 8:14 AM EST [place] [address] CT Scan Report Signed Patient: Leesa Reyes MR#: [id number] 682 : 1970 Acct:[id number] Age/Sex: 54 / F ADM Date: 06/28/25 Loc: HO.ED Attending Dr: Ordering Physician: Nella Morales Date of Service: 06/28/25 Procedure(s): CT abdomen pelvis w IV con Accession Number(s): [id number] cc: Leesa Rapp MD; Nella Morales Report Number: [id number]: Total DLP = 520.00 mGy-cm Reason for Exam: sbo vs chronh's flare EXAMINATION: CT ABDOMEN AND PELVIS WITH CONTRAST CLINICAL INFORMATION: SBO versus Crohn's flare. COMPARISON: April 25, 2025. TECHNIQUE: Multidetector volumetric images were obtained from the superior aspect of the liver through the pubic symphysis following administration 85 mL of Omnipaque 350 intravenous contrast. Sagittal and coronal reformatted images were obtained on the technologist's workstation. Oral contrast: Yes This CT examination was performed using dose optimization techniques as appropriate, variously including the following: *Automated exposure control *Adjustment of mA and/or kV according to patient size (this includes techniques or standardized protocols for targeted exams where dose is matched to indication/reason for exam; i.e. extremities or head) *Use of iterative reconstruction technique DLP: 520 mGy-cm FINDINGS: LUNG BASES: Patchy pulmonary groundglass, peripheral lower lung lobes. LIVER, GALLBLADDER, AND BILIARY TREE: Liver measures 16 cm. No solid or cystic mass. Main portal veins, hepatic veins and intrahepatic portion of the IVC are patent. Nondistended. No pericholecystic fluid collection or gallbladder wall thickening. No intrahepatic or extrahepatic biliary ductal dilatation. PANCREAS: No solid or cystic mass. No peripancreatic fluid collection. No main pancreatic ductal dilatation. SPLEEN: 9 cm. No solid or cystic mass. ADRENAL GLANDS: No nodular lesions. KIDNEYS AND URETERS: 1.5 mm nonobstructing calculus in the upper pole pelvicalyceal system left kidney. No hydronephrosis in either kidney. No enhancing renal mass. Normal enhancement of the renal parenchyma. The ureters are not dilated. BLADDER: Fluid-filled nearly collapsed. GASTROINTESTINAL TRACT: Diffuse concentric intestinal wall thickening, rectosigmoid colon extending from the perianal region to the suture site the sigmoid colon. Abundant stool within the large intestine. Oral contrast reaches the distal ileal loops. Segmental narrowing distal ileal loops. The appendix appears normal. There is no intestinal obstruction pattern. No pneumatosis intestinalis. No ascites. No pneumoperitoneum. There are a few, less than 2 cm peripheral hypodensities in the left lateral lower peritoneal cavity.. ABDOMINAL WALL: Status post mesh placement in the intra-abdominal wall from the epigastric to the suprapubic. LYMPH NODES: Multiple mesenteric lymphadenopathy, right pericolonic and meso sigmoid VASCULAR: No aneurysm or dissection, abdominal aorta. Calcified plaques throughout the abdominal aorta wall and the origin of the mesenteric arteries origin of the main renal arteries and iliac arteries as well as the femoral arteries. PELVIC VISCERA: No gross masses. OSSEOUS STRUCTURES: Degenerative changes in the right hip and sacroiliac joints. Multilevel thoracolumbar spondylosis pronounced at L5-S1 resulting in bilateral neuroforamina stenosis. CT/CT abdomen pelvis w IV con IMPRESSION: Acute inflammatory processes/Crohn's flare, rectosigmoid and likely distal ileal loops. No intestinal obstruction pattern. No gross peritoneal fluid collections. Reactive mesenteric lymphadenopathy. Probably acute to subacute omental fat necrosis, left lower peritoneal cavity. Fleischner guidelines were followed. Electronically signed by: Ajay Ramirez MD 06/28/2025 08:11 AM EST Dictated By: Ajay Gresham MD Signed By: <Electronically signed by Ajay Sheets MD in OV> 06/28/25 0811 DD/ 0739 TD/TT: 06/28/25 0749 Antenna Design Engineer: Procedure Note Donotuseinterpreter, Image - 06/28/[address] [place] [address] [address] Scan Report Signed Patient: Leesa Reyes MMR#: [id number] 682 : 1970Acct:[id number] Age/Sex: 54 / FADM Date: 06/28/25 Loc: HO.ED Attending Dr: Ordering Physician: Nella Morales Date of Service: 06/28/25 Procedure(s): CT abdomen pelvis w IV con Accession Number(s): [id number] cc: Leesa Rapp MD; Nella Morales Report Number: [id number]: Total DLP = 520.00 mGy-cm Reason for Exam: sbo vs chronh's flare EXAMINATION: CT ABDOMEN AND PELVIS WITH CONTRAST CLINICAL INFORMATION: SBO versus Crohn's flare. COMPARISON: April 25, 2025. TECHNIQUE: Multidetector volumetric images were obtained from the superior aspect of the liver through the pubic symphysis following administration 85 mL of Omnipaque 350 intravenous contrast. Sagittal and coronal reformatted images were obtained on the technologist's workstation. Oral contrast: Yes This CT examination was performed using dose optimization techniques as appropriate, variously including the following: *Automated exposure control *Adjustment of mA and/or kV according to patient size (this includes techniques or standardized protocols for targeted exams where dose is matched to indication/reason for exam; i.e. extremities or head) *Use of iterative reconstruction technique DLP: 520 mGy-cm FINDINGS: LUNG BASES: Patchy pulmonary groundglass, peripheral lower lung lobes. LIVER, GALLBLADDER, AND BILIARY TREE: Liver measures 16 cm. No solid or cystic mass. Main portal veins, hepatic veins and intrahepatic portion of the IVC are patent. Nondistended. No pericholecystic fluid collection or gallbladder wall thickening. No intrahepatic or extrahepatic biliary ductal dilatation. PANCREAS: No solid or cystic mass. No peripancreatic fluid collection. No main pancreatic ductal dilatation. SPLEEN: 9 cm. No solid or cystic mass. ADRENAL GLANDS: No nodular lesions. KIDNEYS AND URETERS: 1.5 mm nonobstructing calculus in the upper pole pelvicalyceal system left kidney. No hydronephrosis in either kidney. No enhancing renal mass. Normal enhancement of the renal parenchyma. The ureters are not dilated. BLADDER: Fluid-filled nearly collapsed. GASTROINTESTINAL TRACT: Diffuse concentric intestinal wall thickening, rectosigmoid colon extending from the perianal region to the suture site the sigmoid colon. Abundant stool within the large intestine. Oral contrast reaches the distal ileal loops. Segmental narrowing distal ileal loops. The appendix appears normal. There is no intestinal obstruction pattern. No pneumatosis intestinalis. No ascites. No pneumoperitoneum. There are a few, less than 2 cm peripheral hypodensities in the left lateral lower peritoneal cavity.. ABDOMINAL WALL: Status post mesh placement in the intra-abdominal wall from the epigastric to the suprapubic. LYMPH NODES: Multiple mesenteric lymphadenopathy, right pericolonic and meso sigmoid VASCULAR: No aneurysm or dissection, abdominal aorta. Calcified plaques throughout the abdominal aorta wall and the origin of the mesenteric arteries origin of the main renal arteries and iliac arteries as well as the femoral arteries. PELVIC VISCERA: No gross masses. OSSEOUS STRUCTURES: Degenerative changes in the right hip and sacroiliac joints. Multilevel thoracolumbar spondylosis pronounced at L5-S1 resulting in bilateral neuroforamina stenosis. CT/CT abdomen pelvis w IV con IMPRESSION: Acute inflammatory processes/Crohn's flare, rectosigmoid and likely distal ileal loops. No intestinal obstruction pattern. No gross peritoneal fluid collections. Reactive mesenteric lymphadenopathy. Probably acute to subacute omental fat necrosis, left lower peritoneal cavity. Fleischner guidelines were followed. Electronically signed by: Ajay Ramirez MD 06/28/2025 08:11 AM EST Dictated By: Ajay Gresham MD Signed By: <Electronically signed by Ajay Sheets MDin OV> 06/28/25 0811 DD/ 0739 TD/TT: 06/28/25 0749 Antenna Design Engineer: [facility] External Provider IMG CT PROCEDURES Final Result * Hepatitis C Antibody with Reflex to HCV, RNA, Quantitative, Real-Time PCR (05/18/2025 2:11 PM EDT) Hepatitis C Antibody Nonreactive Nonreactive [facility] Comment:Antibodies to HCV no t detected; does not exclude early acuteHCV infection. Blood Venous blood specimen / Unknown 05/18/2025 2:11 PM EDT 05/18/2025 4:13 PM EDT Vee Harris MD LAB BLOOD ORDERABLES Final Res ult [facility] [address] [place] [phone] * RPR (Monitor) with Reflex to??Titer (05/18/2025 2:11 PM EDT) RPR (Monitor) w/Refl Titer NON-REACTI VE NON-REACT TRUPTI [facility] Comment:THIS TEST WAS PERFOR MED AT:[facility] [place] [id number] BARROW MD Rapid Plasma Reagin Ab Titer TNP [facility] Blood Venous blood specimen / Unknown 05/18/2025 2:11 PM EDT 05/18/2025 4:13 PM EDT Vee Harris MD LAB BLOOD ORDERABLES Final Res ult Performing Organization Address [facility] Co de Phone Number [facility] [address] [place] [phone] * HIV-1/2 Antigen and Antibodies, Fourth Generation, with Reflexes (05/18/2025 2:11 PM EDT) HIV AB/AG Nonreactive Nonreactive [facility] Comment:HIV-1 p24 Ag and/or HIV-1/HIV-2 Ab not detected.A test result that is nonreactive does not exclude thepossibility of exposure to or infection with HIV-1 and/orHIV-2. Nonreactive results in this assay for individualswith prior exposure to HIV-1 and/or HIV-2 may be due toantigen and antibody levels that are below the limit ofdetection of this assay.The HRsoft HIV Ag/Ab Combo assay result andsupplemental assay results should be interpreted inconjunction with the patient's clinical presentation,history and other laboratory results. If the results areinconsistent with clinical evidence, additional testing issuggested to confirm the result. Blood Venous blood specimen / Unknown 05/18/2025 2:11 PM EDT 05/18/2025 4:13 PM EDT Vee Harris MD LAB BLOOD ORDERABLES Final Res ult Performing Organization Address [facility]/ZIP Co de Phone Number [facility] [address] [place] [phone] * (ABNORMAL) Sed Rate by Modified Papitoren (05/18/2025 2:11 PM EDT) Erythrocyte Sedimentation Rate 25(H) 0 - 20 MM/HR [facility] Comment:Patients with polycy themia and many hemoglobin abnormalitiesmay have depressed sed rates whereas patients with anemiamay have elevated sed rates. Blood Venous blood specimen / Unknown 05/18/2025 2:11 PM EDT 05/18/2025 4:11 PM EDT Result [facility] Vee Harris MD LAB BLOOD ORDERABLES Final Res ult Performing Organization Address [facility] Co de Phone Number [facility] [address] [place] [phone] * (ABNORMAL) C-reactive Protein (05/18/2025 2:11 PM EDT) C Reactive Protein 0.52(H) < or = 0.50 mg/dL [facility] Blood Venous blood specimen / Unknown 05/18/2025 2:11 PM EDT 05/18/2025 4:13 PM EDT Vee Harris MD LAB BLOOD ORDERABLES Final Res ult Performing Organization Address [facility] Co de Phone Number [facility] [address] [place] [phone] * (ABNORMAL) POCT Urinalysis (04/29/2025 3:43 [...] Expiration Date Urine 04/29/2025 3:43 PM EDT Result [facility] Leesa Wasserman MD POINT OF CARE TEST EN TER/EDIT ORDERABLES Final Result * Culture, Urine, Routine (04/29/2025 3:37 PM EDT) Urine Urine specimen obtained by clean catch procedure / Unknown 04/29/2025 3:37 PM EDT 04/29/2025 5:23 PM EDT Comment:UACC Narrative [facility] - 05/02/2025 7:25 AM EDT Enterococcus faecalis Quant 10,000 to 50,000 cfu/mL Enterococcus faecalis: Ampicillin <=2(S) Enterococcus faecalis: Levofloxacin 1(S) Enterococcus faecalis: Nitrofurantoin <=16(S) Enterococcus faecalis: Tetracycline >=16(R) Enterococcus faecalis: Vancomycin 1(S) Specimen Source: Urine clean catch us Leesa Wasserman MD LAB MICROBIOLOGY - GE NERAL ORDERABLES Final Result Performing Organization Address [facility] Co de Phone Number [facility] [address] [place] [phone] * (ABNORMAL) Bacterial Vaginosis Panel (04/29/2025 3:30 PM EDT) TRICHOMONAS VAGINALIS DETECTION BY PCR NOT DETECTED Not Detect [facility] BACTERIAL VAGINOSIS DETECTION BY PCR NEGATIVE Negative [facility] Comment:The BV organism targ ets [...] GROUP DETECTION BY PCR DETECTED(A) Not Detect [facility] Karo glab krusei PCR NOT DETECTED Not Detect [facility] Swab Vaginal structure / Unknown 04/29/2025 3:30 PM EDT 04/29/2025 5:23 PM EDT us Leesa Wasserman MD LAB MICROBIOLOGY - GE NERAL ORDERABLES Final Result Performing Organization Address City/[facility] Co de Phone Number [facility] [address] [place] [phone] * XR Cervical Spine 5 View (04/28/2025 12:07 PM EDT) Anatomical Region Laterality Modality Spine, C-spine Radiographic Lisa ging 04/28/2025 12:0 7 PM EDT Narrative 04/28/2025 1:34 PM EDT [address] [address] XRay Report Signed Patient: Leesa Reyes MR#: [id number] 682 : 1970 Acct:[id number] Age/Sex: 54 / F ADM Date: 04/28/25 [facility]: Leesa Wasserman MD Ordering Physician: Leesa Rapp MD Date of Service: 04/28/25 Procedure(s): XR cervical spine 5V Accession Number(s): [id number] cc: Leesa Rapp MD Reason for Exam: [...] 04/28/2025 01:31 PM EDT Dictated By: Fabrizio Bacno MD Signed By: <Electronically signed by Fabrizio Bacon MD in OV> 04/28/25 1331 DD/ 1207 TD/TT: 04/28/25 1220 Antenna Design Engineer: Procedure Note Donotuseinterpreter, Image - 04/28/2025 [facility] [address] [place] [address] XRay Report Signed Patient: Leesa Reyes MMR#: [id number] 682 : 1970Acct:[id number] Age/Sex: 54 / FADM Date: 04/28/25 Loc: HO.CX Attending Dr: Leesa Wasserman MD Ordering Physician: Leesa Rapp MD Date of Service: 04/28/25 Procedure(s): XR cervical spine 5V Accession Number(s): [id number] cc: Leesa Rapp MD Reason for Exam: [...] 04/28/25 1331 DD/ 1207 TD/TT: 04/28/25 1220 Antenna Design Engineer: us Leesa Wasserman MD IMG XR PROCEDURES Fin al Result * XR Thoracic Spine 3 Views (04/28/2025 11:47 AM EDT) Anatomical Region Laterality Modality Spine, T-spine Radiographic Lisa ging 04/28/2025 11:4 7 AM EDT Narrative 04/28/2025 1:36 PM EDT [address] [address] XRay Report Signed Patient: Leesa Reyes MR#: [id number] 682 : 1970 Acct:[id number] Age/Sex: 54 / F ADM Date: 04/28/25 Loc: HO.HHCX Attending Dr: Leesa Wasserman MD Ordering Physician: Leesa Rapp MD Date of Service: 04/28/25 Procedure(s): XR thoracic spine 3V Accession Number(s): [id number] cc: Leesa Rapp MD Reason for Exam: [...] MD Signed By: <Electronically signed by Fabrizio aBcon MD in OV> 04/28/25 1333 DD/ 1147 TD/TT: 04/28/25 1220 Antenna Design Engineer: Procedure Note Donotuseinterpreter, Image - 04/28/[address] [address] XRay Report Signed Patient: Leesa Reyes MMR#: [id number] 682 : 1970Acct:[id number] Age/Sex: 54 / FADM Date: 04/28/25 Loc: HOAVTARCX Attending Dr: Leesa Wasserman MD Ordering Physician: Leesa Rapp MD Date of Service: 04/28/25 Procedure(s): XR thoracic spine 3V Accession Number(s): [id number] cc: Leesa Rapp MD Reason for Exam: [...] 04/28/25 1333 DD/ 1147 TD/TT: 04/28/25 1220 Antenna Design Engineer: us Leesa Wasserman MD IMG XR PROCEDURES Fin al Result * XR Lumbar Spine 2-3 Views (04/28/2025 11:45 AM EDT) Anatomical Region Laterality Modality Spine, L-spine Radiographic Lisa ging 04/28/2025 11:4 5 AM EDT Narrative 04/28/2025 1:37 PM EDT [address] [address] XRay Report Signed Patient: Leesa Reyes MR#: [id number] 682 : 1970 Acct:[id number] Age/Sex: 54 / F ADM Date: 04/28/25 Loc: HO.CX Attending Dr: Leesa Wasserman MD Ordering Physician: Leesa Rapp MD Date of Service: 04/28/25 Procedure(s): XR lumbar spine 2-3V Accession Number(s): [id number] cc: Leesa Rapp MD Reason for Exam: [...] 04/28/25 1334 DD/ 1145 TD/TT: 04/28/25 1220 Antenna Design Engineer: Procedure Note Donotuseinterpreter, Image - 04/28/[address] [address] XRay Report Signed Patient: Leesa Reyes [facility]#: [id number] 682 : 1970Acct:[id number] Age/Sex: 54 / FADM Date: 04/28/25 Loc: HO.HHCX Attending Dr: Leesa Wasserman MD Ordering Physician: Leesa Rapp MD Date of Service: 04/28/25 Procedure(s): XR lumbar spine 2-3V Accession Number(s): [id number] cc: Leesa Rapp MD Reason for Exam: [...] 04/28/25 1334 DD/ 1145 TD/TT: 04/28/25 1220 Antenna Design Engineer: Leesa Wasserman MD IMG XR PROCEDURES Fin al Result * XR Shoulder 2+ Views Left (04/28/2025 11:30 AM EDT) Anatomical Region Laterality Modality Upper Extremities, Shoulder Left Radi ographic Imaging 04/28/2025 11:3 0 AM EDT Narrative 04/28/2025 1:30 [place] [address] XRay Report Signed Patient: Leesa Reyes MR#: [id number] 682 : 1970 Acct:[id number] Age/Sex: 54 / F ADM Date: 04/28/25 Loc: HO.HHCX Attending Dr: Leesa Wasserman MD Ordering Physician: Leesa Rapp MD Date of Service: 04/28/25 Procedure(s): XR shoulder LT min 2V Accession Number(s): [id number] cc: Leesa Rapp MD Reason for Exam: [...] 04/28/25 1328 DD/ 1130 TD/TT: 04/28/25 1220 Antenna Design Engineer: Procedure Note Donotskylarinterpreter, Image - 04/28/2025 [place] [address] XRay Report Signed Patient: Leesa Reyes MMR#: [id number] 682 : 1970Acct:[id number] Age/Sex: 54 / FADM Date: 04/28/25 Loc: HO.HHCX Attending Dr: Leesa Wasserman MD Ordering Physician: Leesa Rapp MD Date of Service: 04/28/25 Procedure(s): XR shoulder LT min 2V Accession Number(s): [id number] cc: Leesa Rapp MD Reason for Exam: [...] 04/28/25 1328 DD/ 1130 TD/TT: 04/28/25 1220 Antenna Design Engineer: us Leesa Wasserman MD IMG XR PROCEDURES Fin al Result * Hm Colonoscopy (11/08/2024) Colonoscopy Normal Normal Narrative Glenna Best - 11/08/2024 Repeat Colonoscopy in 2 years for Crohn's disease surveillance. See external admission note on 11/08/2024 Historical Provider HEALTH MAINTENANCE Final Result * (ABNORMAL) Lipid Panel with Reflex to Direct LDL (05/19/2024 11:00 AM EDT) Triglycerides 214(H) <150 mg/dL [facility] Comment:Desirable Triglyceri de: less than 150 mg/dLBorderline High Triglyceride 150-199 mg/dLHigh Triglyceride: 200-499 mg/dLVery High Triglyceride: greater than or equal to 5OO mg/dL Cholesterol 207(H) <200 mg/dL [facility] Comment:Desirable Cholestero l: less than 200 mg/dLBorderline High Cholesterol: 200-239 mg/dLHigh Cholesterol: greater than 239 mg/dL LDL Cholesterol Calculated 124(H) <100 mg/dL [facility] Comment:Desirable LDL: less than 100 mg/dLNear Optimal/Above Optimal LDL: 110- 129 mg/dLBorderline High LDL: 130-159 mg/dLHigh LDL: 160-189 mg/dLVery High LDL: greater than or equal to 190 mg/dL HDL Cholesterol 41 >40 mg/dL [facility] Comment:Desirable HDL: great er than 40 mg/dL Note: This HDL assay may give artificially low results in patients with liver disease. Blood 05/19/2024 11:0 0 AM EDT 05/19/2024 1:20 PM EDT us Leesa Wasserman MD LAB BLOOD ORDERABLES Final Result [facility] [address] [place] [phone] * Image-Guided Pap with Age-Based Screening??with CT/NG,??Trichomonas (07/03/2023 10:41 AM EST) Trichomonas (NAAT) Not Detected Not Detected [facility] Comment:Methodology: Transcr iption Mediated Amplification(TMA)The analytical performance characteristics of thisassay have been determined by [facility], [place], [place]. The modificationshave not been cleared or approved by the FDA. Thisassay has been validated pursuant to the CLIAregulations and is used for clinical purposes.For additional information, please refer tohttp://[employer]/faq/Trichomonastma (This link is being providedfor information/educational purposes only).THIS TEST WAS PERFORMED AT:[facility] [id number] [place] [address]WODBMMA W. MASON,MD,PHD CTNG Ref Lab Not Detected Not Detected [facility] NG Ref Lab Not Detected Not Detected [facility] Comment:Methodology: Transcr iption Mediated Amplification(TMA) to detect RNA.The analytical performance characteristics of thisassay, when used to test [employer] specimens havebeen determined by [employer]. The modificationshave not been cleared or approved by the FDA.This assay has been validated pursuant to the CLIAregulations and is used for clinical purposes.For additional information, please refer tohttps://[employer]/faq/BHT317(This link is being provided for information/educational purposes only).THIS TEST WAS PERFORMED AT:[employer] [id number] [place] [address]NSMWFRLRAYMUNDO ALLAN MD,PHD 07/03/2023 10:4 1 AM EST 07/04/2023 9:02 AM EST us Leesa Wasserman MD LAB CYTOLOGY ORDERABL ES Final Result Performing Organization Address City/[facility]/ZIP Co de Phone Number [facility] [address] [place] [phone] * HPV mRNA E6/E7 w/Reflex to HPV Genotypes 16, 18/45 (07/03/2023 10:41 AM EST) HPV nRNA E6/E7 Not Detected Not Detected [facility] Comment:Methodology: Transcr iption-Mediated AmplificationThis assay detects E6/E7 viral messenger RNA (mRNA) from 14high-risk HPV types (16,18,31,33,35,39,45,51,52,56,58,59,66,68).Cervical sources are required for HPV testing.If a vaginal source from a patient who has had atotal hysterectomy with removal of cervix wassubmitted, please contact the testing laboratoryfor alternative testing options.For additional information, please refer tohttp://education.[employer]/faq/UMA270w4(This link if provided for information/educational purposes only.)THIS TEST WAS PERFORMED AT:[facility] [place] [phone] BARROW MD HPV mRNA E6/E7 [facility] HPV 16 RNA [facility] HPV 18/45 RNA [facility] 07/03/2023 10:4 1 AM EST 07/04/2023 8:10 AM EST us Leesa Wasserman MD LAB CYTOLOGY ORDERABL ES Final Result [facility] [address] [place] [phone] * BI Mammogram Screening Tomosynthesis Bilateral (03/13/2023 1:46 PM EDT) Anatomical Region Laterality Modality Breast Bilateral Mammography 03/13/2023 1:46 PM EDT Narrative 04/08/2023 1:29 PM EDT [address] [place] [address] Mammography Report Signed Patient: Leesa Reyes MR#: [id number] 682 : 1970 Acct:[id number] Age/Sex: 52 / F ADM Date: 03/13/23 Loc: HO.MAMMO Attending Dr: Leesa Wasserman MD Ordering Physician: Leesa Rapp MD Results: Date of Service: 03/13/23 Follow Up: Procedure(s): MM tomosynthesis screening BI Accession Number(s): [id number] cc: Leesa Rapp MD EXAMINATION: MM SCREENING [...] for their next mammogram. Dictated By: Hailee aGines MD Signed By: <Electronically signed by Hailee Gaines MD in OV> 04/08/23 1327 DD/ 1346 TD/TT: Antenna Design Engineer: Procedure Note Donotuseinterpreter, Image - 04/08/[address] [place] [address] Mammography Report Signed Patient: Leesa Reyes MMR#: [id number] : 1970Acct:[id number] Age/Sex: 52 / FADM Date: 03/13/23 Loc: [facility]ana[facility]MO Attending Dr: Leesa Wasserman MD Ordering Physician: Leesa Rapp MDResults: Date of Service: 03/13/23Follow Up: Procedure(s): MM tomosynthesis screening BI Accession Number(s): [id number] cc: Leesa Rapp MD EXAMINATION: MM SCREENING [...] in OV> 04/08/23 1327 DD/ 1346 TD/TT: Antenna Design Engineer: us Leesa Wasserman MD IMG BI PROCEDURES Fin al Result * OCCULT BLOOD STOOL (12/16/2019 4:02 PM EDT) OCCULT BLOOD STOOL [facility] 12/16/2019 4:02 PM EDT us Historical Provider LAB BODY FLUIDS AND STOOL S ORDERABLES Final Result [facility] [address] [place] [address], from Last 3 Months or Most Recently Relevant to Health Maintenance Insurance [place] C3 GENERIC [place] [address] Care Teams Miscellaneous Machine Operator Relationship Specialty Start Date End Date Leesa Rapp MD [address] [place] [address] PCP - General Family Medicine 10/15/19 Adam Hanson, ANTONIO [address] [place] [address] Registered Nurse Family Medicine 04/26/25 Cathy Rucker 04/26/25 Chaparrita Monsalve Hydraulic SpecialistTeller Supervisor 05/26/25
--- OUTSIDE RECORDS SUMMARY | 2025-07-08 10:43 | XMS_ITS | Encounter Summary ---
Author Organization [employer] Address 75 [facility] 7t [place] [address] Care Team Providers Care Executive Vice President And Chief Financial Officer Name Role Phone Leesa Rapp MD Primary Care Provide r Adam Hanson RN Unavailable Cathy Rucker Unavailable Encounter Details Date Type Department Care Team (Late st Contact Info) Description 09/04/2022 Orders Only [facility] [address] [place] [address] [phone] Alayna Delcid LPN Social History Tobacco Use [...] Description 07/18/2025 10:00 AM EST Office Visit [facility] [address] [place] [address] [phone] Danica Sharpe MD [address] [place], [place] [phone] documented as of this encounter Visit Diagnoses Not on filedocumented in this encounter Care Teams Executive Vice President And Chief Financial Officer Relationship Specialty Start Date End Date Leesa Rapp MD [address] [place] [address] [phone] PCP - General Family Medicine 10/15/19 Adam Hanson, RN [address] [place] [address] Registered Nurse Family Medicine 04/26/25 Cathy Rucker 04/26/25 Chaparrita Monsalve Chef'S AssistantGame Preserve Manager 05/26/25 documented as of this encounter
--- OUTSIDE RECORDS SUMMARY | 2025-07-08 10:43 | XMS_ITS ---
Author Organization [employer] Address 75 [facility] 7t [place] [address] Care Team Providers Care 911 Operator Name Role Phone Leesa Rapp MD Primary Care Provide r Adam Hanson RN Unavailable [phone] Cathy Rucker Unavailable CHW Complex Status:Outreach In Progress (Enrolling) Start date:04/26/2025 Enrollment reason:ADT Feed Overview ADT-admitted [facility] 04/23/25. Please outreach for enrollment. Please outreach facility. Case Team Name Relationship Phone Cathy Rucker(Responsible Staff) [phone] Continued Care and Services Coordination
--- OUTSIDE RECORDS SUMMARY | 2025-07-08 10:43 | XMS_ITS ---
Author Organization [employer] Address 75 [facility] 7t [place] [address] Care Team Providers Care Sandwich Hand Name Role Phone Leesa Rapp MD Primary Care Provide r Adam Hanson RN Unavailable [phone] Cathy Rucker Unavailable CM Complex Status:Outreach In Progress (Enrolling) Start date:04/26/2025 Enrollment reason:ADT Feed Overview ADT-admitted [facility] 04/23/25 Case Team Name Relationship Phone Adam Hanson RN(Responsible Staff) Registered Nurse [phone] Continued Care and Services Coordination
[2025-07-08 14:24] LABS: CDiff Gene PCR NEGATIVE (Negative)
[2025-07-08 14:39] VITALS: BP 116/73; PULSE 64; RESP 14; TEMP 36.4; O2SAT 96
[2025-07-08 14:50] LABS: Appearance Urine Clear; Glucose Urine UA Negative (Negative); PH 5.5 (5.0-9.0); Specific Gravity - Urine 1.015 (1.005-1.025); UMIC TRIGGER UACC YES
[2025-07-08 15:45] VITALS: BP 116/73; PULSE 64; RESP 14; TEMP 36.4; O2SAT 96
[2025-07-08] MEDS: Potassium Chloride Packet 20 MEQ PACKET 40 MEQ PO (15:45)
[2025-07-09 07:32] LABS: E. coli EAEC Not Detected (Not Detect.); E. coli EPEC Not Detected (Not Detect.); E. coli ETEC Not Detected (Not Detect.); E. coli STEC Not Detected (Not Detect.); Shigella sp./EIEC Not Detected (Not Detect.)
== END 2025-07-08 15:55 | disposition home or self-care (01) ==
PROVIDERS: Emergency Provider Emergency Medicine; PCP Internal Medicine
DX: K50.111 Crohn's disease of large intestine with rectal bleeding (principal); R10.84 Generalized abdominal pain; R11.0 Nausea; I10 Essential (primary) hypertension; M06.9 Rheumatoid arthritis, unspecified; Z79.899 Other long term (current) drug therapy
CPT/HCPCS: 36415; 80053; 81001; 83690; 85025; 87493; 87507; 89055; 96361; 96374; 96375; 96376; 99283; 99284; J1171; J2405; J3360

== ENCOUNTER 2025-07-18 10:37 | Outpatient (REF) | payer MEDICAID, SELFPAY ==
--- OUTSIDE RECORDS SUMMARY | 2025-07-18 13:15 | XMS_ITS | Clinical Summary ---
Author Organization [employer] [facility] it Address [address] [place] [address] Care Team Providers Care Fingerprint Technician Name Role Phone Macy Washburn NP Primary Care Provider [phone] Social History Tobacco Use Types Packs/Day Years [...] age to complete this topic Care Teams Fingerprint Technician Relationship Specialty Start Date End Date Macy Washburn NP [address] [place] [phone] PCP - General 03/12/05
[2025-07-18 13:16] LABS: Hematocrit 37.7 % (37.0-47.0); Hemoglobin 11.8 g/dl (12.0-16.0); Mean Corpuscular HGB Conc 31.3 g/dl (31.0-35.0); Mean Corpuscular Hemoglobin 26.9 pg (27.0-33.0); Mean Corpuscular Volume 86.1 fL (80.0-98.0); NRBC Abs Auto 0.000 X10*3/uL (0.0-0.012); NRBC Pct Auto 0.0 /100WBC (0.0-0.2); Platelet Count 300 X10*3/uL (160-400); Red Blood Count 4.38 X10*6/uL (4.20-5.50); White Blood Count 5.9 X10*3/uL (4.8-10.8)
--- OUTSIDE RECORDS SUMMARY | 2025-07-18 13:16 | XMS_ITS | Clinical Summary ---
Demographics Address [address] [place] [address] Mobile Phone Home Phone Preferred Language Norwegian; Castilian Marital Status /Civil Union Restorationist Affiliation Unknown Race Other Race Ethnic Group or Author Organization [facility] Address [address] [address] Phone Support Name Relationship Address Phone Judie Nunez Personal Relationship Unknown [phone] Minesh Munson Personal Relationship [address] [place] [address] Care Team Providers Care Design Release Engineer Name Role Phone Leesa Steven MD Primary [...] topic Medical Devices Not on file Insurance [facility] C3 ACO C[address] [place] [address] C3 ACO C3 ACO C3 [place]CO [place] [place] [address] [place] [address] C[address]CO [place] [place] [address] [place] [address] C3 ACO Care Teams Design Release Engineer Relationship Specialty Start Date End Date Leesa Steven MD [address] [place] [address] PCP - General Internal Medicine 12/18/20 Additional Source Comments The information contained in this document represents components of the legal health record. It is not the complete legal health record.[facility]
[2025-07-18 13:17] LABS: Appearance Urine Turbid; Glucose Urine UA Negative (Negative); PH 6.0 (5.0-9.0); Specific Gravity - Urine >= 1.030 (1.005-1.025); UMIC TRIGGER UACC YES
[2025-07-18 16:17] LABS: Anion Gap 12 (12-20); Blood Urea Nitrogen 14 mg/dL (9-16); Calcium 9.8 mg/dL (8.4-10.2); Carbon Dioxide 28 mmol/L (22-29); Chloride 107 mmol/L (96-108); Estimated Glomerular Filt Rate > 60; Potassium 4.0 mmol/L (3.3-5.1); Sodium 143 mmol/L (135-145)
[2025-07-18 16:18] LABS: Anion Gap 11 (12-20); Blood Urea Nitrogen 15 mg/dL (9-16); Calcium 9.8 mg/dL (8.4-10.2); Carbon Dioxide 29 mmol/L (22-29); Chloride 107 mmol/L (96-108); Estimated Glomerular Filt Rate > 60; Potassium 3.9 mmol/L (3.3-5.1); Sodium 143 mmol/L (135-145)
[2025-07-21 04:09] LABS: TS Negative Control Passed; TS Panel A 0; TS Panel B 2; TS Positive Control Passed; TSpotTB Negative (Negative)
== END 2025-07-18 10:38 | disposition home or self-care (01) ==
LOC: HO.HHCL 10:37
PROVIDERS: Internal Medicine; Internal Medicine Gastroenterology; PCP Internal Medicine; Visit Provider Internal Medicine
DX: Z11.1 Encounter for screening for respiratory tuberculosis (principal); K50.119 Crohn's disease of large intestine with unspecified complications; N20.0 Calculus of kidney; R19.7 Diarrhea, unspecified
CPT/HCPCS: 36415; 80048; 81001; 85027; 85652; 86481

== ENCOUNTER 2025-08-10 11:11 | Outpatient (REF) | payer MEDICAID, SELFPAY ==
[2025-08-10 14:29] LABS: Appearance Urine Clear; Glucose Urine UA Negative (Negative); PH 5.0 (5.0-9.0); Specific Gravity - Urine 1.015 (1.005-1.025); UMIC TRIGGER UACC YES
--- OUTSIDE RECORDS SUMMARY | 2025-08-10 14:50 | XMS_ITS | Encounter Summary ---
Author Organization [employer] Address 75 [facility] 7t [place] [address] Care Team Providers Care Shirt Trimmer Name Role Phone Leesa Rapp MD Primary Care Provide r Adam Hanson RN Unavailable [phone] Cathy Rucker Unavailable Encounter Details Date Type Department Care Team ([facility] st Contact Info) Description 10/30/2022 Orders Only [facility] & PEDS [address] [place], [place] [phone] Christy Kaye LPN Social History Tobacco Use [...] on filedocumented in this encounter Care Teams Shirt Trimmer Relationship Specialty Start Date End Date Leesa Rapp MD [address] [place], [place] [phone] PCP - General Family Medicine 10/15/19 Adam Hanson, ANTONIO [address] [place] [address] Registered Nurse Family Medicine 04/26/25 07/25/25 Cathy Rucker 04/26/25 07/25/25 Chaparrita Monsalve Liner InserterDental Resident 05/26/25 documented as of this encounter
--- OUTSIDE RECORDS SUMMARY | 2025-08-10 14:50 | XMS_ITS | Encounter Summary ---
Author Organization [employer] Address 75 [facility] 7t [place] [address] Care Team Providers Care Nurse Emergency Name Role Phone Leesa Rapp MD Primary Care Provide r Adam Hanson RN Unavailable [phone] Cathy Rucker Unavailable Encounter Details Date Type Department Care Team (Late st Contact Info) Description 11/28/2022 Abstract [facility] [address] [place] [address] Leesa Rapp MD [address] [place], [place] [phone] Social History Tobacco Use Types Packs/Day Years [...] on filedocumented in this encounter Care Teams Nurse Emergency Relationship Specialty Start Date End Date Leesa Rapp MD [address] [place] [address] PCP - General Family Medicine 10/15/19 Adam Hanson, ANTONIO [address] [place] [address] Registered Nurse Family Medicine 04/26/25 07/25/25 Cathy Rucker 04/26/25 07/25/25 Chaparrita Monsalve Business SupervisorHand Laminator 05/26/25 documented as of this encounter
--- OUTSIDE RECORDS SUMMARY | 2025-08-10 14:51 | XMS_ITS | Encounter Summary ---
Author Organization [employer] Address [address] [facility] [address] 7t [place] [address] Care Team Providers Care Sheet Metal Worker Supervisor Name Role Phone Leesa Rapp MD Primary Care Provide r Adam Hanson RN Unavailable [phone] Cathy Rucker Unavailable Encounter Details Date Type Department Care Team (Late st Contact Info) Description 07/18/2025 Results Follow-Up [facility] [address] [place] [address] Danica Sharpe MD 230 [place] [address] Basic Metabolic Panel, Sed Rate by Modified Westergren Social History Tobacco Use Types Packs/Day Years Used Date Smoking Tobacco: Never Passive Smoke Exposure: Never Smokeless Tobacco: Never Alcohol Use Standard Drinks/Week Comments Never 0 (1 standard drink = 0.6 oz pur e alcohol) Alcohol Answer Date Recorded How often do you have a drink containing alcohol ? 0 07/18/2025 How many drinks containing a lcohol do you have on a typical day when you are drinking? 0 07/18/2025 How often do you have six or more drinks on one occasion? 0 07/18/2025 Depression Answer Date Recorded Patient Health Questionnaire-9 [...] Access Q2 Not on file 02/11/2025 Comments No Sex and Gender Information Value Date Recorded [...] documented as of this encounter Care Teams Sheet Metal Worker Supervisor Relationship Specialty Start Date End Date Leesa Rapp MD [address] [place] [address] PCP - General Family Medicine 10/15/19 Adam Hanson RN [address] [place] [address] Registered Nurse Family Medicine 04/26/25 07/25/25 Cathy Rucker 04/26/25 07/25/25 Chaparrita Monsalve Tub OperatorLabor Custodian 05/26/25 documented as of this encounter
--- OUTSIDE RECORDS SUMMARY | 2025-08-10 14:51 | XMS_ITS | Encounter Summary ---
Author Organization [employer] Address 75 [facility] 7t [place] [address] Care Team Providers Care Peoplesoft Functional Analyst Name Role Phone Leesa Rapp MD Primary Care Provide r Adam Hanson RN Unavailable [phone] Cathy Rucker Unavailable Reason for Visit * Reason Comments Med Refill Encounter Details Date Type Department Care Team ([facility] st Contact Info) Description 09/03/2023 Refill [facility] [address] [place], [place] [phone] Rohini Meade MD [address] [place], [place] [phone] Chronic nonintractable headache, unspecified headache type Social [...] type documented in this encounter Care Teams Peoplesoft Functional Analyst Relationship Specialty Start Date End Date Leesa Rapp MD [address] [place] [address] PCP - General Family Medicine 10/15/19 Adam Hanson RN [address] [place] [address] Registered Nurse Family Medicine 04/26/25 07/25/25 Cathy Rucker 04/26/25 07/25/25 Chaparrita Monsalve Head Correction OfficerSecond Operator 05/26/25 documented as of this encounter
--- OUTSIDE RECORDS SUMMARY | 2025-08-10 14:51 | XMS_ITS | Clinical Summary ---
Demographics Address [address] [place] [address] Mobile Phone Home Phone Preferred Language Namibian; Castilian Marital Status /Civil Union Shinto Affiliation Unknown Race Other Race Ethnic Group or Author Organization [facility] Address [address] [address] Phone Support Name Relationship Address Phone Judie Nunez Personal Relationship Unknown [phone] Minesh Munson Personal Relationship [address] [place] [address] Care Team Providers Care Lead Clinical Research Coordinator Name Role Phone Leesa Steven MD Primary [...] topic Medical Devices Not on file Insurance [facility] C3 ACO C[address] [place] [address] C3 ACO C3 ACO C3 [place] [place] [address] [place] [address]CO [place] [place] [address] [place] [address] C3 ACO Care Teams Lead Clinical Research Coordinator Relationship Specialty Start Date End Date Leesa Steven MD [address] [place] [address] PCP - General Internal Medicine 12/18/20 Additional Source Comments The information contained in this document represents components of the legal health record. It is not the complete legal health record.[facility]
--- OUTSIDE RECORDS SUMMARY | 2025-08-10 14:51 | XMS_ITS | Clinical Summary ---
Author Organization [employer] [facility] Address [address] [place] [address] Care Team Providers Care Advisory Services Associate Name Role Phone Macy Washburn NP Primary Care Provider [phone] Social History Tobacco Use Types Packs/Day Years Used Date Smoking Tobacco: Never Assessed Comments Unknown Sex and Gender Information Value Date Recorded Sex Assigned at Not on file Legal Sex Female 2:11 AM EST Gender Identity Not on file Sexual Orientation Not on file Plan of Treatment Health Maintenance Due Date [...] age to complete this topic Care Teams Advisory Services Associate Relationship Specialty Start Date End Date Macy Washburn NP [address] [place] [phone] PCP - General 03/12/05
--- OUTSIDE RECORDS SUMMARY | 2025-08-10 14:51 | XMS_ITS | Encounter Summary ---
Author Organization [employer] Address 75 [facility] 7t [place] [address] Care Team Providers Care Chemical Engineer Name Role Phone Leesa Rapp MD Primary Care Provide r Encounter Details Date Type Department Care Team (Late st Contact Info) Description 08/10/2025 Orders Only GENERIC EXTERNAL DATA DEPARTMENT Provider, [...] on file documented as of this encounter Procedures Procedure Name Priority Date/Time Associated Diagnosis Comments URINALYSIS, COMPLETE, WITH REFLEX TO CULTURE Routine 08/10/2025 11:17 AM EST documented in this encounter Results * (ABNORMAL) Urinalysis, Complete, with Reflex to Culture (08/10/2025 11:17 AM EST) Color Urine Yellow [facility] Appearance Urine Clear [facility] PH 5.0 5.0 - 9.0 [facility] Glucose Urine UA Negative Negative mg/dL [facility] Urine Blood Trace(A) Negative [facility] Specific Aneta - Urine 1.015 1.005 - 1.025 [facility] Urine Protein Negative Neg-Trace mg/dL [facility] Urine Ketones Negative Negative mg/dL [facility] Nitrite Urine Negative Negative [facility] Leukocyte Esterase Urine Negative Negative [facility] RBC Urine 0-2 0 - 2 /HPF [facility] Urine WBC 0-5 0 - 5 /HPF [facility] Urine Squamous Epithelial Cell 0-2 0 - 2 /HPF [facility] Urine Bacteria None Seen None Seen [facility] Hyaline Casts, Urine 0-2 0 - 2 /LPF [facility] 08/10/2025 11:1 7 AM EST 08/10/2025 2:19 PM EST Narrative [facility] - 08/10/2025 2:37 PM EST Urine, Clean Catch us Generic External Data Provider LAB URINE ORDERAB LES Final Result Performing Organization Address City/State/[facility] Co de Phone Number [facility] [address] [place] [address] [phone] documented in this encounter Visit Diagnoses Not on filedocumented in this encounter Additional Health Concerns Assessment Noted Time PHQ-9 Depression Total Score: 19 025 9:53 AM EDT documented as of this encounter Care Teams Chemical Engineer Relationship Specialty Start Date End Date Leesa Rapp MD [address] [place] [address] PCP - General Family Medicine 10/15/19 Chaparrita Monsalve Cotton Classer AideTram Driver 05/26/25 documented as of this encounter
--- OUTSIDE RECORDS SUMMARY | 2025-08-10 14:51 | XMS_ITS | Encounter Summary ---
Author Organization [employer] Address 75 [facility] 7t [place] [address] Care Team Providers Care Perinatal Breastfeeding Assistant Name Role Phone Leesa Rapp MD Primary Care Provide r Adam Hanson RN Unavailable [phone] Cathy Rucker Unavailable Encounter Details Date Type Department Care Team (Late st Contact Info) Description 05/02/2025 Orders Only [facility] [address] [place] [address] Leesa Rapp MD [address] [place], [place] [phone] Social History Tobacco Use Types Packs/Day Years [...] documented as of this encounter Care Teams Perinatal Breastfeeding Assistant Relationship Specialty Start Date End Date Leesa Rapp MD [address] [place] [address] PCP - General Family Medicine 10/15/19 Adam Hanson RN [address] [place] [address] Registered Nurse Family Medicine 04/26/25 07/25/25 Cathy Rucker 04/26/25 07/25/25 Chaparrita Monsalve Aircraft Tool MakerAccounting Support Specialist 05/26/25 documented as of this encounter
--- OUTSIDE RECORDS SUMMARY | 2025-08-10 14:51 | XMS_ITS | Encounter Summary ---
Author Organization [employer] Address 75 [facility] 7t [place] [address] Care Team Providers Care Motorcoach Operator Name Role Phone Leesa Rapp MD Primary Care Provide r Adam Hanson RN Unavailable [phone] Cathy Rucker Unavailable Reason for Visit * Reason Comments Med Refill Encounter Details Date Type Department Care Team (Late st Contact Info) Description 01/31/2023 Refill [facility] [address] [place], [place] [phone] Christy [place] DO 230 [place], [place] [phone] Anxiety Social History Tobacco Use Types Packs/Day [...] unspecified documented in this encounter Care Teams Motorcoach Operator Relationship Specialty Start Date End Date Leesa Rapp MD [address] [place] [address] PCP - General Family Medicine 10/15/19 Adam Hanson RN [address] [place] [address] [place] [address] Registered Nurse Family Medicine 04/26/25 07/25/25 Cathy Rucker 04/26/25 07/25/25 Chaparrita Monsalve Ink GrinderConstruction Coordinator 05/26/25 documented as of this encounter
--- OUTSIDE RECORDS SUMMARY | 2025-08-10 14:51 | XMS_ITS | Encounter Summary ---
Author Organization [employer] Address 75 [facility] 7t [place] [address] Care Team Providers Care Tower Truck Driver Name Role Phone Leesa Rapp MD Primary Care Provide r Adam Hanson RN Unavailable [phone] Cathy Rucker Unavailable Reason for Visit * Reason Comments Med Refill Encounter Details Date Type Department Care Team (Late st Contact Info) Description 12/31/2022 Refill [facility] [address] [place], [place] [phone] Vee Harris MD 230 [place], [place] [phone] Moderate persistent asthma without complication Social History [...] complication documented in this encounter Care Teams Tower Truck Driver Relationship Specialty Start Date End Date Leesa Rapp MD [address] [place] [address] PCP - General Family Medicine 10/15/19 Adam Hanson RN [address] [place] [address] Registered Nurse Family Medicine 04/26/25 07/25/25 Cathy Rucker 04/26/25 07/25/25 Chaparrita Monsalve Ethanol Quality LeaderRooming House Operator 05/26/25 documented as of this encounter
--- OUTSIDE RECORDS SUMMARY | 2025-08-10 14:51 | XMS_ITS | Encounter Summary ---
Author Organization [employer] Address 75 [facility] 7t [place] [address] Care Team Providers Care Manager Of Warehouse Name Role Phone Leesa Rapp MD Primary Care Provide r Adam Hanson RN Unavailable [phone] Cathy Rucker Unavailable Reason for Visit * Reason Comments Med Refill Encounter Details Date Type Department Care Team ([facility] st Contact Info) Description 04/29/2024 Refill [facility] 230 [place], [place] [phone] Leesa Rapp MD 230 [place], [place] [phone] Anxiety Social History Tobacco Use Types Packs/Day [...] as of this encounter Care Teams Manager Of Warehouse Relationship Specialty Start Date End Date Leesa Rapp MD [address] [place] [address] PCP - General Family Medicine 10/15/19 Adam Hanson RN [address] [place] [address] Registered Nurse Family Medicine 04/26/25 07/25/25 Cathy Rucker 04/26/25 07/25/25 Chaparrita Monsalve Financial Management ConsultantOpen Shank Coverer 05/26/25 documented as of this encounter
--- OUTSIDE RECORDS SUMMARY | 2025-08-10 14:51 | XMS_ITS | Encounter Summary ---
Author Organization [employer] Address 75 [facility] 7t [place] [address] Care Team Providers Care Director Of Personnel Name Role Phone Leesa Rapp MD Primary Care Provide r Adam Hanson RN Unavailable [phone] Cathy Rucker Unavailable Reason for Visit * Reason Comments Med Refill Encounter Details Date Type Department Care Team (Late st Contact Info) Description 04/28/2023 Refill [facility] MED[facility] [address] [place], [place] [phone] Christy [place] DO 230 [place], [place] [phone] Healthcare maintenance Social History Tobacco Use Types [...] maintenance documented in this encounter Care Teams Director Of Personnel Relationship Specialty Start Date End Date Leesa Rapp MD [address] [place] [address] PCP - General Family Medicine 10/15/19 Adam Hanson, RN [address] [place] [address] Registered Nurse Family Medicine 04/26/25 07/25/25 Cathy Rucker 04/26/25 07/25/25 Chaparrita Monsalve Stereo OperatorSail Cutter 05/26/25 documented as of this encounter
--- OUTSIDE RECORDS SUMMARY | 2025-08-10 14:51 | XMS_ITS | Encounter Summary ---
Author Organization [employer] Address 75 [facility] 7t [place] [address] Care Team Providers Care General I Farmworker Name Role Phone Leesa Rapp MD Primary Care Provide r Adam Hanson RN Unavailable [phone] Cathy Rucker Unavailable Reason for Visit * Reason Comments Med Refill Encounter Details Date Type Department Care Team ([facility] st Contact Info) Description 05/09/2024 Refill [facility] 230 [place], [place] [phone] Leesa Rapp MD 230 [place], [place] [phone] Vitamin D deficiency; Healthcare maintenance; Anxiety Social [...] documented as of this encounter Care Teams General I Farmworker Relationship Specialty Start Date End Date Leesa Rapp MD 230 [place] [address] PCP - General Family Medicine 10/15/19 Adam Hanson RN [address] [place] [address] Registered Nurse Family Medicine 04/26/25 07/25/25 Cathy Rucker 04/26/25 07/25/25 Chaparrita Monsalve Program Engagement DirectorRice Drier Operator 05/26/25 documented as of this encounter
--- OUTSIDE RECORDS SUMMARY | 2025-08-10 14:52 | XMS_ITS | Encounter Summary ---
Author Organization [employer] Address 75 [facility] 7t [place] [address] Care Team Providers Care World Language Teacher Name Role Phone Leesa Rapp MD Primary Care Provide r Adam Hanson RN Unavailable [phone] Cathy Rucker Unavailable Encounter Details Date Type Department Care Team (Late st Contact Info) Description 09/04/2022 Orders Only [facility]IC[facility] 230 [place] [address] Alayna Delcid LPN Social History Tobacco Use [...] on filedocumented in this encounter Care Teams World Language Teacher Relationship Specialty Start Date End Date Leesa Rapp MD 230 [place] [address] PCP - General Family Medicine 10/15/19 Adam Hanson, RN [address] [place] [address] Registered Nurse Family Medicine 04/26/25 07/25/25 Cathy Rucker 04/26/25 07/25/25 Chaparrita Monsalve Personal Computer Network AnalystAnthropology Department Chair 05/26/25 documented as of this encounter
--- OUTSIDE RECORDS SUMMARY | 2025-08-10 14:52 | XMS_ITS | Encounter Summary ---
Author Organization [employer] Address [address] [facility] [address] [place] [address] Care Team Providers Care Supervisor Photostat Name Role Phone Leesa Rapp MD Primary Care Provide r Adam Hanson RN Unavailable [phone] Cathy Rucker Unavailable Reason for Visit * Reason Comments Med Refill Encounter Details Date Type Department Care Team (Late st Contact Info) Description 12/10/2024 Refill [facility] [address] [place], [place] [phone] Leesa Rapp MD [address], [place] [phone] Anxiety Social History Tobacco Use Types Packs/Day [...] as of this encounter Care Teams Supervisor Photostat Relationship Specialty Start Date End Date Leesa Rapp MD [address] [place] [address] PCP - General Family Medicine 10/15/19 Adam Hanson RN [address] [place] [id number] Registered Nurse Family Medicine 04/26/25 07/25/25 Cathy Rucker 04/26/25 07/25/25 Chaparrita Monsalve Pony Cylinder Press OperatorElectro Plater 05/26/25 documented as of this encounter
--- OUTSIDE RECORDS SUMMARY | 2025-08-10 14:52 | XMS_ITS | Encounter Summary ---
Author Organization [employer] Address [address] [facility] [address] [place] [address] Care Team Providers Care Temporary Receptionist Name Role Phone Leesa Rapp MD Primary Care Provide r Adam Hanson RN Unavailable [phone] Cathy Rucker Unavailable Reason for Visit * Reason Comments Med Refill Encounter Details Date Type Department Care Team (Late st Contact Info) Description 12/01/2024 Refill [facility] [address] [place], [place] [phone] Leesa Rapp MD [address] [place], [place] [phone] Anxiety Social History Tobacco Use Types Packs/Day [...] documented as of this encounter Care Teams Temporary Receptionist Relationship Specialty Start Date End Date Leesa Rapp MD [address] [place] [address] PCP - General Family Medicine 10/15/19 Adam Hanson RN [address] [place] [id number] Registered Nurse Family Medicine 04/26/25 07/25/25 Cathy Rucker 04/26/25 07/25/25 Chaparrita Monsalve Inner Tube Tuber Machine OperatorMerchandise Distributor 05/26/25 documented as of this encounter
--- OUTSIDE RECORDS SUMMARY | 2025-08-10 14:52 | XMS_ITS | Clinical Summary ---
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 Role Phone Leesa Rapp MD Primary Care Provide r Allergies Active Allergy Reactions Criticality Noted Date Comments Aspirin Hives,Rash High 08/16/2010 Other reaction(s): rash Allergy Allergy Azathioprine High 08/16/2010 Other reaction(s): pancreatitis, unspecified, vomiting Other Reaction(s): PANCREATIC INFLAMMATION Ibuprofen High 02/05/2024 Other Reaction(s): TOLD NOT TO TAKE Levofloxacin Low 09/26/2017 Other reaction(s): yeast infection Other Reaction(s): YEAST INFECTIONS Medications methotrexate 2.5 MG tablet TAKE 10 TABLETS BY MOUTH ONCE WEEKLY 023 Active naloxone (Narcan) 4 mg/0.1 mL nasal spray spray 0.1 milliliter by intranasal route once in 1 nostril may repeat dose every 2-3 minutes as needed alternating nostrils with each dose 021 Active melatonin 5 MG tablet Take 2 tablets by mouth at bedtime. 024 Active lactulose (Chronulac) 10 GM/15ML solution Take 30 mL by mouth Once per day. 024 Active polyethylene glycol, PEG, 3350 (Glycolax) 17 GM/SCOOP powder MIX 17G (1 CAPFUL) IN 8 OUNCES OF WATER AND TAKE BY MOUTH TWICE A DAY 024 Active polyvinyl alcohol (Liquifilm Tears) 1.4 % ophthalmic solution INSTILL 1 DROP INTO THE AFFECTED EYE(S) THREE TIMES DAILY IN THE MORNING, AT NOON, AND AT BEDTIME NEEDED FOR DRY EYES Active fluticasone (Flonase) 50 MCG/ACT nasal sprayIndications: Seasonal allergic rhinitis, unspecified trigger Administer 1 spray into each nostril Once per day. 16 g 3 Active LORazepam (Ativan) 0.5 MG tabletIndications :Fear [...] day. 30 tablet 11 025 2025 Active Calcium Carb-Cholecalcife rol 600-10 MG-MCG tabletIndications :Vitamin D deficiency TAKE 1 TABLET BY MOUTH TWICE DAILY IN THE MORNING AND IN THE EVENING 180 tablet 1 Active Eliquis 2.5 MG tablet Take 1 tablet by mouth 2 times daily. Active sertraline (Zoloft) 25 MG tablet Take 1 tablet by mouth Once per day. Active hydrOXYzine HCl (Atarax) 10 MG tablet Take 1 tablet by mouth if needed in the morning, at noon, and at bedtime for anxiety. Active pantoprazole (ProtoNix) 40 MG EC tablet Take 40 mg by mouth Once per day. Active tofacitinib (Xeljanz) 10 MG tablet Take 1 tablet by mouth 2 times daily. Active Multiple Vitamin (Multivitamin) tabletIndications :Healthcare maintenance TAKE 1 TABLET BY MOUTH EVERY MORNING 90 tablet 1 Active D3 Super Strength 50 MCG (2000 UT) capsuleIndication s:Vitamin D deficiency TAKE 1 CAPSULE BY MOUTH EVERY MORNING 90 capsule 1 Active albuterol 108 (90 Base) MCG/ACT inhalerIndication s:Mild intermittent asthma without complication Inhale 2 puffs every 4 (four) hours if needed for wheezing. 18 g 1 07/18/20 25 11:39 AM EST 2025 Active albuterol (2.5 MG/3ML) 0.083% nebulizer solutionIndicatio ns:Moderate persistent asthma, unspecified whether complicated Take 3 mL (2.5 mg) by nebulization every 4 (four) hours if needed for wheezing. 75 mL 3 07/18/20 11:39 AM EST 2025 Active fluconazole (Diflucan) 150 MG tablet Take 1 tab orally once, repeat after 7 days 2 tablet Active hydrocortisone (Cortenema) 100 MG/60ML enema Insert 1 enema (100 mg) into the rectum at bedtime. 30 each 1 Active ustekinumab (Stelara) injection Inject 90 mg under the skin every 28 (twenty-eight) days. Active tamsulosin (Flomax) 0.4 MG 24 hr capsule Take 1 capsule (0.4 mg) by mouth Once per day. 30 capsule Active Acetaminophen Extra Strength 500 MG tablet Take 1 tablet (500 mg) by mouth every 6 (six) hours if needed (pain). 90 tablet Active busPIRone (Buspar) 5 MG tabletIndications :Anxiety TAKE 1 TABLET BY MOUTH EVERY DAY 90 tablet 1 Active gabapentin (Neurontin) 100 MG capsuleIndication s:Anxiety TAKE 1 CAPSULE BY MOUTH TWICE DAILY 60 capsule 1 Active risperiDONE (RisperDAL) 1 MG tabletIndications :Depression [...] AND AT BEDTIME 60 tablet 2 Active montelukast (Singulair) 10 MG tabletIndications :Moderate persistent asthma without complication TAKE 1 TABLET BY MOUTH AT BEDTIME 90 tablet 1 Active folic acid (Folvite) 1 MG tablet TAKE 1 TABLET BY MOUTH EVERY MORNING 023 2024 Discontinued(M ed list cleanup (will not trigger notification to Pharmacy)) docusate sodium (Colace) 100 MG capsuleIndication s:Chronic constipation TAKE 1 CAPSULE BY MOUTH TWICE DAILY IN THE MORNING AND IN THE EVENING 180 capsule 1 024 2024 Discontinued(M ed list cleanup (will not trigger notification to Pharmacy)) Acetaminophen Extra Strength 500 MG tablet Take 1 tablet by mouth every 6 (six) hours if needed. 024 2024 Discontinued(R eorder (will not trigger notification to Pharmacy)) famotidine (Pepcid) 20 MG tablet TAKE 1 TABLET BY MOUTH TWICE DAILY NEEDED FOR DISCOMFORT OF THE ABDOMEN 024 2024 Discontinued(M ed list cleanup (will not trigger notification to Pharmacy)) zolpidem (Ambien) 5 MG tabletIndications :Primary insomnia TAKE 1 TABLET BY MOUTH AT BEDTIME NEEDED FOR SLEEP 30 tablet 024 2024 Discontinued(M ed list cleanup (will not trigger notification to Pharmacy)) hydroquinone 4 % creamIndications: Melasma Apply topically 2 times daily. 28.35 g 025 2024 Discontinued(M ed list cleanup (will not trigger notification to Pharmacy)) montelukast (Singulair) 10 MG tabletIndications :Moderate persistent asthma without complication TAKE 1 TABLET BY MOUTH AT BEDTIME 90 tablet 1 025 2024 Discontinued busPIRone (Buspar) 5 MG tabletIndications :Anxiety TAKE 1 TABLET BY MOUTH EVERY DAY 90 tablet 1 025 2024 Discontinued cyclobenzaprine (Flexeril) 10 MG tabletIndications :Acute pain of left shoulder,Acute left-sided thoracic back pain,Acute left-sided low back pain without sciatica Take 1 tablet (10 mg) by mouth 3 times daily for 10 days. 30 tablet 2024 Discontinued(M ed list cleanup (will not trigger notification to Pharmacy)) fluconazole (Diflucan) 150 MG tabletIndications :Vaginal discharge Take one tablet then after 72 hrs take another tablet 2 tablet 2024 Discontinued(M ed list cleanup (will not trigger notification to Pharmacy)) budesonide-formot carisa (Symbicort) 160-4.5 MCG/ACT inhalerIndication s:Moderate persistent asthma without complication INHALE 2 PUFFS BY MOUTH TWICE DAILY IN THE MORNING AND IN THE EVENING RINSE MOUTH AFTER USING. 10.2 g 2 07/18/20 11:39 AM EST 2024 Discontinued risperiDONE (RisperDAL) 1 MG tabletIndications :Depression with anxiety TAKE 1 TABLET BY MOUTH TWICE DAILY IN THE MORNING AND IN THE EVENING 60 tablet 2 07/18/20 11:39 AM EST 2024 Discontinued topiramate (Topamax) 100 MG tabletIndications :Chronic nonintractable headache, unspecified headache type TAKE 1 TABLET BY MOUTH TWICE DAILY IN THE MORNING AND AT BEDTIME 60 tablet 2 07/18/20 11:39 AM EST 2024 Discontinued gabapentin (Neurontin) 100 MG capsuleIndication s:Anxiety TAKE 1 CAPSULE BY MOUTH TWICE DAILY 60 capsule 1 2024 Discontinued dicyclomine (Bentyl) 10 MG capsule Take 10 mg by mouth. 2024 Discontinued(M ed list cleanup (will not trigger notification to Pharmacy)) loperamide (Imodium) 2 MG capsule Take 2 mg by mouth. 2024 Discontinued(M ed list cleanup (will not trigger notification to Pharmacy)) loperamide (Imodium A-D) 2 MG tablet Take 1-2 tablets (2-4 mg) by mouth if needed in the morning, at noon, in the evening, and at bedtime for diarrhea for up to 10 days. 30 tablet 1 2024 nystatin (Mycostatin) 386416 UNIT/ML suspension Take 4 mL (400,000 Units) by mouth 4 times daily for 14 days. 224 mL 2024 ondansetron (Zofran) 4 MG tablet Take 2 tablets (8 mg) by mouth every 8 (eight) hours if needed for nausea or vomiting for up to 15 days. 30 tablet 025 2024 oxyCODONE (Roxicodone) 5 MG immediate release tabletIndications :Calculus of left kidney Take 1 tablet (5 mg) by mouth every 6 (six) hours if needed for severe pain for up to 5 days. 15 tablet 025 2024 nitrofurantoin, macrocrystal-mono hydrate, (Macrobid) 100 MG capsule Take 1 capsule (100 mg) by mouth 2 times daily for 5 days. 10 capsule 07/20/20 10:57 AM EST 2024 Active Problems Problem Noted Date Diagnosed Date Calculus of left kidney 07/18/2025 Assessment & Plan (07/19/2025 4:15 PM EST): - Left kidney. - Reassurance, it is unclear if she's symptomatic from it, Most stones pass within 2-3 weeks. - Urology referral placed for further evaluation and management. - Prescribed Flomax to be taken nightly for 2-3 weeks + oxicodone for pain management, to be used as needed, hold for sedation, Advised that it is not indicated for terminal gauger pain control. - FU Urine culture for prescription UTI if needed Abdominal pain 05/15/2025 Anxiety 05/15/2025 Bloody diarrhea [...] appointment Crohn's disease of rectum with complication ([facility]) 12/08/2024 Assessment & Plan (12/08/2024 5:20 PM EDT): I will prescribe for patient short course of oxycodone for pain and Zofran for nausea I advised to follow-up with gastroenterology and do not miss the upcoming appointment for further management and treatment of her Crohn's Nausea 12/08/2024 Crohn's disease with complication ([facility]) 10/24 Assessment & Plan (11/17/2024 1:59 PM [...] Mixed hyperlipidemia 05/07/2018 Headache 05/29/2015 Crohn disease ([facility]/HCC) 05/29/2015 Assessment & Plan (07/19/2025 4:19 PM EST): - Current flare with residual symptoms including persistent diarrhea and pain. Afebrile, no rash, no rectal bleeding reported. - Follow-up with GI for Stelara infusions every 4 weeks, has GI appointment on 08/15/2025. I will order inflammatory markers and other labs and expedite appointment if there is significant inflammation and see if she needs prednisone taper over few weeks. - Prescribed ondansetron for nausea and vomiting. Advised to check with pharmacy regarding loperamide prescription for diarrhea; if unavailable, continue [id number] loperamide. Follow-up with gastroenterology scheduled for July 2025; patient advised to request earlier appointment if symptoms worsen. Assessment & Plan (05/18/2025 10:35 AM EDT): [...] need for ongoing prednisone - we contacted [facility] while patient was here and they provided name of patient's previous second opinion in [place] (Dr Lencho Arreola at [facility]) and confirmed that Dr Palafox [...] Plan (08/12/2024 10:57 AM EST): Stable, patient counselor camp to avoid asthma triggers C/w same interventions [...] today Rheumatoid arthritis involving multiple joints ( [facility]) 05/29/2015 Assessment & Plan (04/27/2023 7:32 AM EDT): 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 She asks about pain mgmt, but the majority of her pain is intra-abdominal I think pain mgmt would have little to offer her, and that focus should be on her her Crohn's activity Vitamin D deficiency 05/29/2015 Resolved Problems Problem Noted Date Diagnosed Date Resolved Date Pulmonary embolism 11/15/2022 3 Encounters Date Type Department Care Team Description 08/10/2025 Orders Only GENERIC EXTERNAL DATA DEPARTMENT Provider, Generic External Data 08/03/2025 Refill [facility] [address] [place] [address] Leesa Rapp MD Anxiety; Depression with anxiety; Moderate persistent asthma without complication; Chronic nonintractable headache, unspecified headache type 08/03/2025 Refill [facility] [address] [place] [address] Puneet Kraft MD Anxiety; Moderate persistent asthma without complication 07/25/2025 Patient Outreach [address] [address] Leesa Rapp MD 07/19/2025 Results Follow-Up [address] [address] Danica Sharpe MD Urinalysis, Complete, with Reflex to Culture, CBC, Basic Metabolic Panel 07/18/2025 10:00 AM EST Office Visit [address] [address] Danica Sharpe MD Calculus of left kidney (Primary Dx); Crohn's disease with complication, unspecified gastrointestinal tract location (CMS/HCC) (HCC); Crohn's disease of rectum with complication (CMS/HCC) (HCC) 07/18/2025 Results Follow-Up [address] [address] Danica Sharpe MD Basic Metabolic Panel, Sed Rate by Modified Westergren 07/18/2025 Orders Only GENERIC EXTERNAL DATA DEPARTMENT Provider, Generic External Data 07/18/2025 Travel 07/15/[address] [address] Leesa Rpap MD chart prep 07/12/[address] [address] Leesa Rapp MD Nurse Triage; Medication Question 07/11/[address] [address] Bronwyn Gage RN 07/09/2025 12:40 PM EST Office Visit [facility] [address] [place] [phone] Sepideh Worthington MD Crohn's disease with complication, unspecified gastrointestinal tract location (CMS/HCC) (HCC) (Primary Dx); Vaginal discharge; Mild intermittent asthma without complication; Moderate persistent asthma, unspecified whether complicated 07/09/2025 Travel 07/08/2025 Orders Only GENERIC EXTERNAL DATA DEPARTMENT Provider, Generic External Data 07/07/2025 Patient Outreach [address] [address] Leesa Rapp MD 07/06/2025 Patient Outreach [address] [address] Leesa Rapp MD Pre-visit Planning (HDF- scheduled and SDOH screening completed on 11/08/2024) 07/04/2025 Patient Outreach [address] [address] Leesa Rapp MD 06/28/2025 Orders Only [facility] External Provider, [facility] 06/07/[address] [address] Leesa Rapp MD Healthcare maintenance; Vitamin D deficiency 06/04/2025 Refill [facility] [address] [place] [address] Leesa Rapp MD Anxiety 05/26/2025 Telephone [facility] [address] [place] [address] Leesa Rapp MD Care Coordination (ICP Care Plan) 05/24/2025 Patient Outreach [address] [address] Leesa Rapp MD Care Coordination (CM/CHW outreach) 05/23/2025 Results Follow-Up [address] [address] Vee Harris MD Sed Rate by Modified Wester[place], C-reactive Protein, CBC auto differential, Additional followed-up results: 3 05/16/2025 2:45 PM EDT Office Visit [address] [address] Vee Harris MD Crohn's disease with complication, unspecified gastrointestinal tract location (CMS/HCC) (Primary Dx); Sexually transmitted infection 05/16/2025 Travel 05/13/[address] [address] Vee Harris MD CHART PREP 05/12/[address] [place] [address] Leesa Rapp MD Chronic nonintractable headache, unspecified headache type from Last 3 Months Immunizations Immunization Administration [...] Questionnaire-9 Score 04/07/2025 Patient Health Questionnaire-9 Score 19 04/07/2025 [...] Sign Reading Time Taken Comments Blood Pressure 126/72 07/18/2025 10:07 AM EST Pulse 75 07/18/2025 10:07 AM EST Temperature 36.6 C (97.9 F) 07/18/2025 10:07 AM EST Respiratory Rate 18 07/18/2025 10:07 AM EST Oxygen Saturation 95% 07/18/2025 10:07 AM EST Inhaled Oxygen Concentration - - Weight 69.1 kg (152 lb 6.4 oz) 07/18/2025 10:07 AM EST Height 160 cm (5' 3 ) 07/18/2025 10:07 AM EST Body Mass Index 27 07/18/2025 10:07 AM EST Plan of Treatment Health Maintenance Due Date [...] 12/19/2021 10/24/2021 Mammogram 03/13/2024 03/13/2023, 11/23, 12/16/2018 Influenza Vaccine (#1) 2025 , 06/25/2021, 06/18/2018, Additional history exists Depression Monitoring 10/08/2025 04/07/2025, 025 SDOH Screening 11/08/2025 11/08/2024 Alcohol/Substance Use Screening 02/16/2026 02/16/2025 Disability Screening 02/16/2026 02/16/2025 Tobacco Screening 07/18/2026 07/18/2025 Colonoscopy 11/08/2026 11/08/2024, 10/23, 08/11/2023 Colorectal Cancer Screening 11/08/2026 Cervical Cancer Screening [...] TO CULTURE Routine 08/10/2025 11:17 AM EST SED RATE BY MODIFIED WESTERGREN Routine 08/10/2025 11:17 AM EST Crohn's disease with complication, unspecified gastrointestinal tract location (CMS/HCC) (HCC) T-SPOT(R).TB Routine 07/18/2025 10:55 AM EST BASIC METABOLIC PANEL Routine 07/18/2025 10:55 AM EST CBC Routine 07/18/2025 10:55 AM EST URINALYSIS, COMPLETE, WITH REFLEX TO CULTURE Routine 07/18/2025 10:55 AM EST SED RATE BY MODIFIED WESTERGREN Routine 07/18/2025 10:55 AM EST Crohn's disease of rectum with complication (CMS/HCC) (HCC) BASIC METABOLIC PANEL Routine 07/18/2025 10:55 AM EST Calculus of left kidney Crohn's disease of rectum with complication (CMS/HCC) (HCC) URINALYSIS, COMPLETE, WITH REFLEX TO CULTURE Routine 07/08/2025 2:31 PM EST LEUKOCYTES STOOL QUALITATIVE Routine 07/08/2025 1:13 PM EST CDIFF GENE PCR Routine 07/08/2025 1:13 PM EST GASTROINTESTINAL PANEL Routine 1:13 PM EST LIPASE Routine 07/08/2025 9:50 AM EST [...] with complication, unspecified gastrointestinal tract location (CMS/HCC) HM COLONOSCOPY Routine 11/08/2024 LIPID PANEL WITH [...] Relevant to Health Maintenance Results * (ABNORMAL) Urinalysis, Complete, with Reflex to Culture (08/10/2025 11:17 AM EST) Only the most recent of3 resultswithin the time period is included. Color Urine Yellow [facility] Appearance Urine Clear [facility] PH 5.0 5.0 - 9.0 [facility] Glucose Urine UA Negative Negative mg/dL [facility] Urine Blood Trace(A) Negative [facility] Specific Silvis - Urine 1.015 1.005 - 1.025 [facility] Urine Protein Negative Neg-Trace mg/dL [facility] Urine Ketones Negative Negative mg/dL [facility] Nitrite Urine Negative Negative [facility] Leukocyte Esterase Urine Negative Negative [facility] [...] - 2 /LPF [facility] 08/10/2025 11:1 7 AM EST 08/10/2025 2:19 PM EST Narrative [facility] - 08/10/2025 2:37 PM EST Urine, Clean Catch us Generic External Data Provider LAB URINE ORDERAB LES Final Result [facility] [address] [place] [phone] * Sed Rate by Modified Tamia (08/10/2025 11:17 AM EST) Only the most recent of3 resultswithin the time period is included. Erythrocyte Sedimentation Rate 26 1 - 30 MM/HR [facility] Comment:Patients with polycy themia and many hemoglobin abnormalitiesmay have depressed sed rates whereas patients with anemiamay have elevated sed rates. Blood Venous blood specimen / Unknown 08/10/2025 11:17 AM EST 08/10/2025 2:17 PM EST Danica Sharpe MD LAB BLOOD ORDERABLES Fin al Result [facility] [address] [place] [phone] * T-SPOT??.TB (07/18/2025 10:55 AM EST) [facility] T Spot TB Negative Negative [facility] [...] [facility] Negative Control Passed [facility] Positive Control Passed [facility] Comment:For additional infor soraida, please refer tohttp://education.Poken/faq/TEK662(This link is being provided for informational/educational purposes only.)THIS TEST WAS PERFORMED AT:[employer] [id number] [place] [id number] ALLAN MD,PHD 07/18/2025 10:5 5 AM EST 07/18/2025 1:04 PM EST us Generic External Data Provider LAB BLOOD ORDERAB LES Final Result Performing Organization Address City/[facility]/ZIP Co de Phone Number [facility] [address] [place] [phone] * (ABNORMAL) CBC (07/18/2025 10:55 AM EST) White Blood Count 5.9 4.8 - 10.8 X10*3/uL [facility] Red Blood Count 4.38 4.20 - 5.50 X10*6/uL [facility] Hemoglobin 11.8(L) 12.0 - 16.0 g/dl [facility] Hematocrit 37.7 37.0 - 47.0 % [facility] Mean Corpuscular Volume 86.1 80.0 - 98.0 fL [facility] Mean Corpuscular Hemoglobin 26.9(L) 27.0 - 33.0 pg [facility] Mean Corpuscular HGB Conc 31.3 31.0 - 35.0 g/dl [facility] Red Cell Distribution Width 15.7 11.0 - 16.0 % [facility] Platelet Count 300 160 - 400 X10*3/uL [facility] Mean Platelet Volume 11.9 9.4 - 12.3 fL [facility] NRBC Pct Auto 0.0 0.0 - 0.2 /100WBC [facility] NRBC Abs Auto 0.000 0.0 - 0.012 X10*3/uL [facility] 07/18/2025 10:5 5 AM EST 07/18/2025 1:04 PM EST us Generic External Data Provider LAB BLOOD ORDERAB LES Final Result Performing Organization Address City/[facility]/ZIP Co de Phone Number [facility] [address] [place] [phone] * Basic Metabolic Panel (07/18/2025 10:55 AM EST) Only the most recent of2 resultswithin the time period is included. Sodium 143 135 - 145 mmol/L [facility] Potassium 4.0 3.3 - 5.1 mmol/L [facility] Chloride 107 96 - 108 mmol/L [facility] Carbon Dioxide 28 22 - 29 mmol/L [facility] Anion Gap 12 12 - 20 [facility] Urea Nitrogen (BUN) 14 9 - 16 mg/dL [facility] Creatinine, Serum 0.77 0.5 - 1.4 mg/dL [facility] Estimated Glomerular Filt Rate >60 [facility] Comment:Chronic Kidney Disea se: Estimated GFR < 60 mL/min/1.72c7Qarcea Kidney Disease: Estimated GFR < 15 mL/min/1.73m2 Glucose 77 60 - 115 mg/dL [facility] Calcium 9.8 8.4 - 10.2 mg/dL [facility] 07/18/2025 10:5 5 AM EST 07/18/2025 1:04 PM EST us Generic External Data Provider LAB BLOOD ORDERAB LES Final Result Performing Organization Address [facility]/ZIP Co de Phone Number [facility] [address] [place] [phone] * Leukocytes Stool Qualitative (07/08/2025 1:13 PM EST) Pathologist [facility] Leukocytes Stool Qualitative MOD: 3-9/OIF NEGATIVE [facility] 07/08/2025 1:13 PM EST 07/08/2025 1:21 PM EST Generic External Data Provider LAB BODY FLUIDS A ND STOOLS ORDERABLES Final Result Performing Organization Address [facility]/ZIP Co de Phone Number [facility] [address] [place] [phone] * CDiff Gene PCR (07/08/2025 1:13 PM EST) CDiff Gene PCR NEGATIVE Negative [facility] Comment:If C. difficile stro ngly suspected despite one negativetest, a second test may be sent vs. empiric treatment forC. difficile infection. 07/08/2025 1:13 PM EST 07/08/2025 1:21 PM EST us Generic External Data Provider LAB BODY FLUIDS A ND STOOLS ORDERABLES Final Result [facility] [address] [place] [address] [phone] * Gastrointestinal panel (07/08/2025 1:13 PM EST) Pathologist [facility] Campylobacter Not Detected Not Detect. [facility] Plesiomonas shigelloides Not Detected Not Detect. [facility] Salmonella Not Detected Not Detect. [facility] Vibrio Not Detected Not Detect. [facility] Vibrio cholerae Not Detected Not Detect. [facility] YERSINIA ENTEROCOLITICA Not Detected Not Detect. [facility] Enteroaggregative E. coli (EAEC) Not Detected Not Detect. [facility] Enteropathogenic E. coli (EPEC) Not Detected Not Detect. [facility] Enterotoxigenic E. coli (ETEC) lt/st Not Detected Not Detect. [facility] Shiga-like toxin-producing E. coli (STEC) stx1/stx2 Not Detected Not Detect. [facility] E coli O157 Not applicable Not Detect. [facility] Comment:E. coli containing t he O157 antigen are a subset ofShiga-like toxin- producing E. coli (STEC). Shigella/Enteroinvasive E. coli (EIEC) Not Detected Not Detect. [facility] Cryptosporidium Not Detected Not Detect. [facility] Cyclospora cayetanensis Not Detected Not Detect. [facility] Entamoeba histolytica Not Detected Not Detect. [facility] Giardia lamblia Not Detected Not Detect. [facility] Adenovirus F 40/41 Not Detected Not Detect. [facility] Astrovirus Not Detected Not Detect. [facility] Norovirus GI/GII Not Detected Not Detect. [facility] Rotavirus A Not Detected Not Detect. [facility] Sapovirus Not Detected Not Detect. [facility] Comment: All results must be correlated with clinical findings.Negative results do not exclude the possibility ofgastrointestinal infection and should not be used as thesole basis for diagnosis, treatment, or other managementdecisions. Virus, bacteria, and parasite nucleic acid maypersist in vivo independently of organism viability.Additionally, some organisms may be carriedasymptomatically.Detection of organism targets does not imply that thecorresponding organisms are infectious or are the causativeagents for clinical symptoms. There is a risk of falsenegative values due to the presence of sequence variants inthe gene targets of the assay, amplification inhibitors inspecimens, or inadequate numbers of organisms foramplification.The identification of several diarrheagenic E. colipathotypes has historically relied upon phenotypiccharacteristics. This panel targets genetic determinantscharacteristic of most pathogenic strains, but may notdetect all strains having phenotypic characteristics of apathotype.The performance of this test has not been established formonitoring treatment of infection with any of the panelorganisms.This assay is performed by Multiplexed PCR, utilizing [employer]. 07/08/2025 1:13 PM EST 07/08/2025 1:21 PM EST us Generic External Data Provider LAB MICROBIOLOGY - GENERAL ORDERABLES Final Result [facility] [address] [place] [address] [phone] * Slide Review (07/08/2025 9:50 AM EST) Slide Review VERIFIED [facility] 07/08/2025 9:50 AM EST 07/08/2025 9:53 AM EST us Generic External Data Provider LAB BLOOD ORDERAB LES Final Result [facility] [address] [place] [address] [phone] * (ABNORMAL) CBC auto differential (07/08/2025 9:50 AM EST) Only the most recent of2 resultswithin the time period is included. White Blood Count 9.7 4.8 - 10.8 X10*3/uL [facility] Red Blood Count 5.40 4.20 - 5.50 X10*6/uL [facility] Hemoglobin 14.8 12.0 - 16.0 g/dl [facility] Hematocrit 43.6 37.0 - 47.0 % [facility] Mean Corpuscular Volume 80.7 80.0 - 98.0 fL [facility] Mean Corpuscular Hemoglobin 27.4 27.0 - 33.0 pg [facility] Mean Corpuscular HGB Conc 33.9 31.0 - 35.0 g/dl [facility] Red Cell Distribution Width 15.9 11.0 - 16.0 % [facility] Platelet Count 250 160 - 400 X10*3/uL [facility] Mean Platelet Volume 12.0 9.4 - 12.3 fL [facility] Neutrophils Percent Auto 60.3 45 - 73 % [facility] Imm Gran Pct Auto 0.6(H) 0.0 - 0.4 % [facility] Lymphocytes Percent Auto 18.3(L) 20 - 40 % [facility] Monocytes Percent Auto 20.2(H) 2 - 11 % [facility] Eosinophils Percent Auto 0.2 0 - 4 % [facility] Basophils Percent Auto 0.4 0 - 2 % [facility] NRBC Pct Auto 0.0 0.0 - 0.2 /100WBC [facility] Neutrophils Absolute Auto 5.8 2.0 - 8.3 x10*3/uL [facility] Imm Gran Abs Auto 0.06(H) 0.00 - 0.03 X10*3/uL [facility] Lymphocytes Absolute Auto 1.8 1.2 - 4.9 X10*3/uL [facility] Monocytes Absolute Auto 2.0(H) 0.1 - 1.2 X10*3/uL [facility] Eosinophils Absolute Auto 0.0 0.0 - 0.4 X10*3/uL [facility] Basophils Absolute Auto 0.0 0.0 - 0.2 X10*3/uL [facility] NRBC Abs Auto 0.000 0.0 - 0.012 X10*3/uL [facility] 07/08/2025 9:50 AM EST 07/08/2025 9:53 AM EST us Generic External Data Provider LAB BLOOD ORDERAB LES Edited Result - Final Performing Organization Address [facility]/ZIP Co de Phone Number [facility] [address] [place] [phone] * Lipase (07/08/2025 9:50 AM EST) Lipase 28 8 - 78 U/L [facility] 07/08/2025 9:50 AM EST 07/08/2025 9:53 AM EST Generic External Data Provider LAB BLOOD ORDERAB LES Final Result Performing Organization Address [facility] de Phone Number [facility] [address] [place] [phone] * (ABNORMAL) Comprehensive Metabolic Panel (07/08/2025 9:50 AM EST) Sodium 136 135 - 145 mmol/L [facility] Potassium 3.1(L) 3.3 - 5.1 mmol/L [facility] Comment:Slight Hemolysis.Int erpret result with caution. Chloride 103 96 - 108 mmol/L [facility] Carbon Dioxide 21(L) 22 - 29 mmol/L [facility] Anion Gap 15 12 - 20 [facility] Urea Nitrogen (BUN) 21(H) 9 - 16 mg/dL [facility] Creatinine, Serum 1.35 0.5 - 1.4 mg/dL [facility] Creatinine Clr Calc Pharmacy 44.1 [facility] Comment:Provided height and weight: 160.02 cm,68.3 kg.eGFR (calculated from the MDRD study equation) and eCrCl(calculated from the Cockcroft-Gault equation) are based ondifferent parameters and may not yield comparable results.If eCrCl result is absurd, please check patient'sheight/weight. Estimated Glomerular Filt Rate 41 [facility] Comment:Chronic Kidney Disea se: Estimated GFR < 60 mL/min/1.50w2Stnyoa Kidney Disease: Estimated GFR < 15 mL/min/1.73m2 Glucose 97 60 - 115 mg/dL [facility] Calcium 9.5 8.4 - 10.2 mg/dL [facility] Bilirubin, Total 0.3 0.0 - 1.0 mg/dL [facility] Aspartate Amino Transferase 27 5 - 31 U/L [facility] Comment:Slight Hemolysis.Int erpret result with caution. Alanine Aminotransferase 14 0 - 31 U/L [facility] Total Protein 8.3(H) 6.5 - 8.0 g/dL [facility] Albumin Level 4.6 3.5 - 5.0 g/dL [facility] Alkaline Phosphatase 78 39 - 117 U/L [facility] 07/08/2025 9:50 AM EST 07/08/2025 9:53 AM EST us Generic External Data Provider LAB BLOOD ORDERAB LES Final Result [facility] [address] [place] [phone] * CT Enterography Abdomen Pelvis w/ Contrast (07/04/2025 11:10 AM EST) Anatomical Region Laterality Modality Computed Tomogra phy 07/04/2025 11:1 0 AM EST Narrative 07/04/2025 12:01 PM EST [address] [address] [address] Scan Report Signed Patient: Leesa Reyes MR#: [id number] 682 : 1970 Acct:[id number] Age/Sex: 54 / F ADM Date: 06/30/25 [facility]: [facility] 358-[address]: Lonny Huang MD Ordering Physician: Lonny Jimenez MD Date of Service: 07/04/25 Procedure(s): CT enterography Accession Number(s): [id number] cc: Lonny Jimenez MD; Leesa Rapp MD Report Number: [id number]: Total DLP = 385.00 mGy-cm Reason for [...] 07/04/25 1157 DD/ 1110 TD/TT: 07/04/25 1137 Insulation Installer: Procedure Note Donotuseinterpreter, Image - 07/04/[address] [address] [address] Scan Report Signed Patient: Leesa Reyes [facility]#: [id number] 682 : 1970Acct:[id number] Age/Sex: 54 / FADM Date: 06/30/25 Loc: HO.S3 358-[address]: Lonny Huang MD Ordering Physician: Lonny Jimenez MD Date of Service: 07/04/25 Procedure(s): CT enterography Accession Number(s): [id number] cc: Lonny Jimenez MD; Leesa Rapp MD Report Number: [id number]: Total DLP = 385.00 mGy-cm Reason for [...] 07/04/25 1157 DD/ 1110 TD/TT: 07/04/25 1137 Insulation Installer: [facility] External Provider IMG CT PROCEDURES Edited Result - Final * CT Abdomen Pelvis w/ Contrast (06/28/2025 7:39 AM EST) Anatomical Region Laterality Modality Body, Pelvis, Abdomen Computed T omography 06/28/2025 7:39 AM EST Narrative 06/28/2025 8:14 AM EST [place] [address] CT Scan Report Signed Patient: Leesa Reyes MR#: [id number] 682 : 1970 Acct:[id number] Age/Sex: 54 / F ADM Date: 06/28/25 Loc: HO.ED Attending Dr: Ordering Physician: Nella Morales Date of Service: 06/28/25 Procedure(s): CT abdomen pelvis w IV con Accession Number(s): [id number] cc: Leesa Rapp MD; Nella Morales Report Number: [id number]: Total DLP = 520.00 mGy-cm Reason for [...] 06/28/25 0811 DD/ 0739 TD/TT: 06/28/25 0749 Insulation Installer: Procedure Note Donotuseinterpreter, Image - 06/28/[address] [place] [address] [address] Scan Report Signed Patient: Leesa Reyes MMR#: [id number] 682 : 1970Acct:[id number] Age/Sex: 54 / FADM Date: 06/28/25 Loc: HO.ED Attending Dr: Ordering Physician: Nella Morales Date of Service: 06/28/25 Procedure(s): CT abdomen pelvis w IV con Accession Number(s): [id number] cc: Leesa Rapp MD; Nella Morales Report Number: [id number]: Total DLP = 520.00 mGy-cm Reason for [...] Ajay Ramirez MD 06/28/2025 08:11 AM EST RP Dictated By: Ajay Gresham MD Signed By: <Electronically signed by Ajay Sheets MDin OV> 06/28/25 0811 DD/ 0739 TD/TT: 06/28/25 0749 Insulation Installer: [facility] External Provider IMG CT PROCEDURES Final Result * Hepatitis C Antibody with Reflex to HCV, RNA, Quantitative, Real-Time PCR (05/18/2025 2:11 PM EDT) Hepatitis C Antibody Nonreactive Nonreactive [facility] Comment:Antibodies to HCV no t detected; does not exclude early acuteHCV infection. Blood Venous blood specimen / Unknown 05/18/2025 2:11 PM EDT 05/18/2025 4:13 PM EDT Vee Harris MD LAB BLOOD ORDERABLES Final Res ult [facility] [address], [place] [phone] * RPR (Monitor) with Reflex to??Titer (05/18/2025 2:11 PM EDT) RPR (Monitor) w/Refl Titer NON-REACTI VE NON-REACT TRUPTI [facility] Comment:THIS TEST WAS PERFOR MED AT:[employer] [place] [phone] BARROW MD Rapid Plasma Reagin Ab Titer TNP [facility] Blood Venous blood specimen / Unknown 05/18/2025 2:11 PM EDT 05/18/2025 4:13 PM EDT Vee Harris MD LAB BLOOD ORDERABLES Final Res ult Performing Organization Address [facility] Co de Phone Number [facility] [address] [place] [phone] * HIV-1/2 Antigen and Antibodies, Fourth Generation, with Reflexes (05/18/2025 2:11 PM EDT) HIV AB/AG Nonreactive Nonreactive [facility] Comment:HIV-1 p24 Ag and/or HIV-1/HIV-2 Ab not detected.A test result that is nonreactive does not exclude thepossibility of exposure to or infection with HIV-1 and/orHIV-2. Nonreactive results in this assay for individualswith prior exposure to HIV-1 and/or HIV-2 may be due toantigen and antibody levels that are below the limit ofdetection of this assay.The [employer] HIV Ag/Ab Combo assay result andsupplemental assay results should be interpreted inconjunction with the patient's clinical presentation,history and other laboratory results. If the results areinconsistent with clinical evidence, additional testing issuggested to confirm the result. Blood Venous blood specimen / Unknown 05/18/2025 2:11 PM EDT 05/18/2025 4:13 PM EDT Vee Harris MD LAB BLOOD ORDERABLES Final Res ult Performing Organization Address [facility] Co de Phone Number [facility] [address] [place] [phone] * (ABNORMAL) C-reactive Protein (05/18/2025 2:11 PM EDT) C Reactive Protein 0.52(H) < or = 0.50 mg/dL [facility] Blood Venous blood specimen / Unknown 05/18/2025 2:11 PM EDT 05/18/2025 4:13 PM EDT us Vee Harris MD LAB BLOOD ORDERABLES Final Res ult [facility] [address] [place] [address] [phone] * Hm Colonoscopy (11/08/2024) Colonoscopy Normal Normal Narrative Glenna Best - 11/08/2024 Repeat Colonoscopy in 2 years for Crohn's disease surveillance. See external admission note on 11/08/2024 us Sadi Andujar MD HEALTH MAINTENANCE Final Result * (ABNORMAL) Lipid [...] 190 mg/dL HDL Cholesterol 41 >40 mg/dL [facility] Comment:Desirable HDL: great er than 40 mg/dL Note: This HDL assay may give artificially low results in patients with liver disease. Blood 05/19/2024 11:0 0 AM EDT 05/19/2024 1:20 PM EDT us Leesa Wasserman MD LAB BLOOD ORDERABLES Final Result [facility] [address] [place] [phone] * Image-Guided Pap with Age-Based Screening??with CT/NG,??Trichomonas (07/03/2023 10:41 AM EST) Trichomonas (NAAT) Not Detected Not Detected [facility] Comment:Methodology: Transcr iption Mediated Amplification(TMA)The analytical performance characteristics of thisassay have been determined by [facility] [place]. The modificationshave not been cleared or approved by the FDA. Thisassay has been validated pursuant to the CLIAregulations and is used for clinical purposes.For additional information, please refer tohttp://CmyCasa.Poken/faq/Trichomonastma (This link is being providedfor information/educational purposes only).THIS TEST WAS PERFORMED AT:[employer] [id number] [place] [address]HAJEXKJRAYMUNDO ALLAN MD,PHD CTNG Ref Lab Not Detected Not Detected [facility] NG Ref Lab Not Detected Not Detected [facility] Comment:Methodology: Transcr iption Mediated Amplification(TMA) to detect RNA.The analytical performance characteristics of thisassay, when used to test SurePath specimens havebeen determined by [facility]. The modificationshave not been cleared or approved by the FDA.This assay has been validated pursuant to the CLIAregulations and is used for clinical purposes.For additional information, please refer tohttps://education.Poken/faq/ZZS795(This link is being provided for information/educational purposes only).THIS TEST WAS PERFORMED AT:[employer] [id number] [place] [address]PIXSZHTRAYMUNDO ALLAN MD,PHD 07/03/2023 10:4 1 AM EST 07/04/2023 9:02 AM EST us Leesa Wasserman MD LAB CYTOLOGY ORDERABL ES Final Result [facility] [address] [place] [phone] * HPV mRNA E6/E7 w/Reflex to [...] alternative testing options.For additional information, please refer tohttp://education.Poken/faq/MUO591q9(This link if provided for information/educational purposes only.)THIS TEST WAS PERFORMED AT:[employer] [place] [phone] BARROW MD HPV mRNA E6/E7 [facility] HPV 16 RNA [facility] HPV 18/45 RNA [facility] 07/03/2023 10:4 1 AM EST 07/04/2023 8:10 AM EST Leesa Wasserman MD LAB CYTOLOGY ORDERABL ES Final Result Performing Organization Address [facility]/ZIP Co de Phone Number [facility] [address] [place] [phone] * BI Mammogram Screening Tomosynthesis Bilateral (03/13/2023 1:46 PM EDT) Anatomical Region Laterality Modality Breast Bilateral Mammography 03/13/2023 1:46 PM EDT Narrative 04/08/2023 1:29 PM EDT [facility] [address] [place] [address] [place] [address] Mammography Report Signed Patient: Leesa Reyes MR#: [id number] 682 : 1970 Acct:[id number] Age/Sex: 52 / F ADM Date: 03/13/23 Loc: CATHERINE Attending Dr: Leesa Wasserman MD Ordering Physician: Leesa Rapp MD Results: Date of Service: 03/13/23 Follow Up: Procedure(s): MM tomosynthesis screening BI Accession Number(s): [id number] cc: Leesa Rapp MD EXAMINATION: MM SCREENING [...] in OV> 04/08/23 1327 DD/ 1346 TD/TT: Insulation Installer: Procedure Note Donotuseinterpreter, Image - 04/08/2023 [facility] [address] [place] [address] Mammography Report Signed Patient: Leesa Reyes MMR#: [id number] 682 : 1970Acct:[id number] Age/Sex: 52 / FADM Date: 03/13/23 Loc: HO.MAMMO Attending Dr: Leesa Wasserman MD Ordering Physician: Leesa Rapp MDResults: Date of Service: 03/13/23Follow Up: Procedure(s): MM tomosynthesis screening BI Accession Number(s): [id number] cc: Leesa Rapp MD EXAMINATION: MM SCREENING [...] in OV> 04/08/23 1327 DD/ 1346 TD/TT: Insulation Installer: us Leesa Wasserman MD IMG BI PROCEDURES Fin al Result * OCCULT BLOOD STOOL (12/16/2019 4:02 PM EDT) OCCULT BLOOD STOOL NEG NEG [facility] 12/16/2019 4:02 PM EDT us Historical Provider LAB BODY FLUIDS AND STOOL S ORDERABLES Final Result [facility] [address] from Last 3 Months or Most Recently Relevant to Health Maintenance Insurance [place] GENER[employer] TPL Attn [place]darrick [place] [address] * Guarantor: Leesa Reyes Account Type Relation to Patient Date of Phone Billing Address Personal/Family Self [address] [place] [address] * Guarantor: Leesa Reyes Account Type Relation to Patient Date of Phone Billing Address Personal/Family Self [address] [place] [address] [place] [address] Care Teams Hemming And Tacking Machine Operator Relationship Specialty Start Date End Date Leesa Rapp MD [address] [place] [address] PCP - General Family Medicine 10/15/19 Chaparrita Monsalve A And P TechnicianMilk Truck Driver 05/26/25
== END 2025-08-10 11:12 | disposition home or self-care (01) ==
LOC: HO.HHCL 11:11
PROVIDERS: Internal Medicine Gastroenterology; PCP Internal Medicine; Visit Provider Internal Medicine
DX: K50.919 Crohn's disease, unspecified, with unspecified complications (principal)
CPT/HCPCS: 36415; 81001; 85652

== ENCOUNTER 2025-08-15 07:36 | Outpatient (AMB) | payer MEDICAID, SELFPAY ==
--- NOTE | 2025-08-15 07:39 | MHC.OFFVIS ---
Vital Signs 08/15/25 07:51 Height 5 ft 3 in Weight 158 lb BMI 28.0 BP 101/58 L Blood Pressure Location Lt brachial Position Sitting Pulse 64 Intake Visit Reasons: follow up Intake Note: Patient follow up for chronic constipation and Sigmoidoscopy results Patient cc: adominal pain/bloating, acid reflux and needed refill for her Pantoprazole 40 mg and Crohns med, too, Stelera infusion problems/insurance ?? Electrical Parts Reconditioner Required: Yes Electrical Parts Reconditioner Name: Trinh [id number] Accompanied by: Self / Same As Patient Allergies aspirin (ASA) Allergy (Intermediate, Verified 08/15/25 07:38) RASH azathioprine (From IMURAN) Allergy (Intermediate, Verified 08/15/25 07:38) PANCREATIC INFLAMMATION ibuprofen (IBUPROFEN) Allergy (Intermediate, Verified 08/15/25 07:38) TOLD NOT TO TAKE levofloxacin (From LEVAQUIN) Allergy (Mild, Verified 08/15/25 07:38) YEAST INFECTIONS Medication List - Last Reconciled 08/15/25 by Libby Palafox MD acetaminophen (Tylenol) 650 mg PO Q4H PRN albuterol sulfate 90 mcg/actuation 2 puffs inhalation Q4H PRN amlodipine 2.5 mg PO DAILY apixaban (Eliquis) 2.5 mg PO BID budesonide-formoterol 160-4.5 mcg/actuation (Symbicort) 2 puffs PO BID buspirone 5 mg PO DAILY calcium carbonate-vitamin D3 600 mg-10 mcg (400 unit) 1 tab PO BID carboxymethylcellulose sodium 1% 1 drp ophthalmic (eye) BID PRN cholecalciferol (vitamin D3) (Vitamin D3) 50 mcg PO DAILY dicyclomine 10 mg PO TIDAC PRN 10 days docusate sodium 1 cap PO BID PRN fluticasone propionate 50 mcg/actuation 1 spray intranasal DAILY hydrocortisone 100 mg (60 mL) MN BEDTIME 15 days hydroxyzine HCl 10 mg PO TID PRN lactulose 20 grams (30 mL) PO BID 30 days loperamide 2 mg PO Q6H PRN 10 days melatonin 10 mg PO BEDTIME methotrexate sodium 25 mg PO FR@0900 methylprednisolone (Medrol (Yasmani)) 4 mg PO DAILY montelukast 1 tab PO BEDTIME multivitamin 1 tab PO DAILY ondansetron 8 mg PO Q8H PRN oxycodone 5 mg PO Q6H PRN oxycodone ER (OxyContin) 10 mg PO BID 10 days pantoprazole (Protonix) 40 mg PO DAILY@0630 potassium chloride 40 mEq PO BID 2 days risperidone 1 mg PO BID sertraline (Zoloft) 25 mg PO DAILY tofacitinib (Xeljanz) 10 mg PO BID topiramate 100 mg PO BID ustekinumab (Stelara) 90 mg subcut Q4W zolpidem 5 mg PO BEDTIME PRN HPI HPI follow up: Details: GI FU visit for this 54-year-old female for FU of Crohn's disease. Next Stelara infusion scheduled on 02/17/25 Pt is on chronic anticoagulation with Eliquis because of history of pulmonary embolism. CHRONIC ILLNESSES:?RA, GERD, asthma, sleep apnea, iron def anemia, anxiety and depression? ? ? TODAY'S VISIT:? Patient complains of abdominal pain/bloating, acid reflux and neede refill - Stelera infusion problems Pt reports she had labs at [facility] which showed inflammation. She was given a medication (? antibiotic)and had repeat labs to FU Pt states symptoms are under control - has 10 small formed non-bloody BMs a day Had an episode of BRBPR 2 weeks (did not seek medical attention) and none since Pt complains of abdominal pain and constipation. Can have 10 BMs a day - usually small and associated with straining Notes BRB with the stool and on the toilet paper. Also complains of feeling bloated. PAST VISITS: Notes improvement in abdominal pain and bowel movements since she started taking Tofacitinib (Xeljanz) 10 mg PO twice daily Notes lower abd pain when stool is passing through the lower colon Has 12 BMs a day consisting of formed stool One episode of nocturnal BM - if she eats something after 4 pm. Intermittent straining with multiple small BMs Takes Lactulose every few days Continues to have abdominal pain and mild constipation. Having upto 8 small formed BMs a day Finished Prednisone last week and requesting a refill Also patient is worry about a cancer dx class 1/nurse from [place] asked her about the cancer ??? Patient wanted to see a branch or department chief librarian. Pt feels very tired all the time for the past 2-3 weeks and feels worse this week EGD and colon results were reviewed with the patient Complains of constipation - has 15 or more BMs a day and stool is hard. Notes abdominal pain and cramps and has to go to the bathroom Abd pain is a little better 10 min after a BM. Has to go back to the bathroom again after 10-15 min PAST VISITS: Feeling better and denies abdominal pain, diarrhea or constipation Abdominal pain was likely due to abd wall seroma - now resolved Patient cc: [facility] abdominal discomfort, and she denies any other GI issues. Pt is accompanied by her daughter, Madelin who interpreted.? Notes improvement in abdominal pain. Feels everything is controlled right now?? Doing OK at present. Pt reports having a normal BM 2 or more times a day. Initially had diarrhea. Notes intermittent abd discomfort due to the seroma Scheduled to see surgery at [facility] Taking Miralax once a day and laculose once a day with good evacuation and denies feeling backed up. Appetite has improved after she took prednisone. Daughter is requesting referral to the Middleware Architect to help with diet. Urgent FU appt scheduled after recent hospitalization from 02/10 to 02/12/24: Hospital course The patient was admitted for treatment of Acute obstipation and stercoral colitis related to opioid use as CT abdomen/pelvis consistent with constipation with a large amount of fecal material present in the colon rectum and fecal material with mildly obstructive effect. as she was manually disimpacted in ED and started on Miralax, Enema and Lactulose with good response as she moved her bowels overnight and repeated KUB showed interval resolution of the constipation. Seen by GI who recommended to increase Miralax and Start LActulose on discharge with a plan to follow as outpatient. The patient had SIRS with leukocytosis likely related to inflammation and chronic steroid use. Tachycardia r/t pain and anxiety. lactic acidosis from dehydration not due to sepsis. No signs of infection. To follow with GI as outpatient. Discharge plan Start Lactulose once daily Increase Miralax to twice daily follow with dr Palafox as outpatient ?? ? Patient cc: after hernia surgery she is been with a lot of abdominal pain on and off, today she is dizzy and her BP is low. Patient said everything is okay and no GI issues today Complains of mid abdominal/periumblical pain x last week Pain is intense 9/10 in intensity Seen in the ER at [facility] and prescribed oxycodone Does not eat when she has pain - does not feel like eating. Complains of constipation - has a BM every 1-2 days. Takes prune juice which helps. Takes docusate twice a day for constipation. Denies black stools or rectal bleeding. PAST VISITS: Had ileostomy reversal 2 months ago. Surgery went well. Has a BM 2-3 times a day, has constipation on some days and does not go on some days Feeling regular Has an appt with colorectal surgeon at [facility] on 10/24/22. Pt states, the surgeon will discuss reversal of colostomy. Last Stelara injection was on Sep 25, 2022 and next injection scheduled on 10/23/22. Pt denies abdominal pain and reports a good appetite Pt is accompanied by her daughter, Aissatou. EGD results were reviewed with the patient. Denies abdominal pain or rectal bleeding. Comes to short stay for her Stelara injection - last injection 01/31/22. Next injection scheduled on 02/28/22 at 9:30 am. Not taking MTX - prescription was stopped without anyone telling the pt - prescription renewed. Has been feeling better since discharge from the hospital 10 days ago - I have abdominal pain. Sometimes when I swallow the food gets stuck - symptoms associated with solid food. Its painful to swallow. Dysphagia episodes are frequent. Food goes down with water and is very painful. Has 6-7 BMs a day. On prednisone taper at 30 mg daily and will decrease to 20 mg daily in 2 days. IBD Summary: ? Year of diagnosis: Crohn's disease diagnosed in [address] scan. ? Disease Extent: Colon ? Past treatments: Azathioprine caused pancreatitis, ? She was initially treated with Remicade which did not work and she was switched to Humira. ? Treated with Entyvio for a few months which was stopped due to side effects. ? In 09/2016, she was treated with Stelara every 8 weeks which worked well for her. ? She has been treated with Prednisone intermittently. ? Previous Endoscopic Evaluations: 01/18/20 COLONOSCOPY SHOWED: One small hyperplastic rectal polyp removed. Patchy erythema throughout the colon - surveillance biopsies were obtained. Focal area of ulcerations with a tight stricture at 18 to 20 cms and unable to pass the colonoscope through the stricture. Stricture was dilated with a 12mm (26 F) CRE balloon and colonoscope was then advanced into the colon. Patchy erythema with focal ulcers in the distal rectum. Inflammation in the recto-sigmoid significantly improved from last year - biopsies were obtained for histology. EGD and colonoscopy on 08/20/2016. ? EGD showed diffuse whittish plaques in the esophagus and diffuse erythema of the mucosa in the cardia. ? Biopsies were obtained. ? Colonoscopy showed normal mucosa in the right colon and patchy erythema and erosions in the left colon. Diffuse erythema and erosions were seen involving most of the rectum. ? Past Surgeries: She underwent Colon surgery (? removal of sigmoid colon) with colostomy at [facility] in 2010. She had reversal of colostomy in Dec, 2011. She developed a peristomal hernia. Last seen at [facility] in 11/2020 and requesting an appointment. Increased MTX to 25 mg (10 tablets) from 5 or 6 tablets daily in?March LABS IN [facility]:04/28/20 Reviewed H&H of 11.2 and 36.7, CHEM PANEL AND LFTS. ? Improvement in LFTs with AST of 32 (decreased from 93) and ALT of 70 (decreased from 190) , alkaline phosphatase 97, FERRITIN 40 ? CRP 2.20 (increased from 0.71 on 03/24/20) ? 08/12 STOOL CALPROTECTIN WAS 714 (DECREASED FROM > 2000 IN 12/11) 01/11 T spot was negative. ? IMAGING STUDIES: 09/08/[address] SCAN SHOWED: Narrowing of the segment of the proximal sigmoid colon with wall enhancement and thickening is noted which is a chronic finding as seen on multiple previous CT scans; however, possibility of mild increased wall thickening and enhancement in the region cannot be completely excluded. Given the dilatation of the colon proximal to this level on current examination, possibility of at least partial obstruction related to the proximal sigmoid colon stricture is suspected. The findings are most probably related to patient's known inflammatory bowel disease; however, again possibility of neoplastic process here cannot be completely excluded. 03/[address] SCAN SHOWED:? There is a long segment of colitis from the mid transverse colon ? through the distal rectum sigmoid consistent with history of Crohn's ? disease. There has been progression of disease since prior exam of 12/16/2019. ENDOSCOPIC STUDIES:?09/28/21 EGD SHOWED: ESOPHAGUS: GE junction at 36 cms.? Focal esophagitis with a 1 cms ulcer at GEJ. No stricture or ring noted.? Scattered white exudates in the proximal and mid esophagus suggestive of esophageal candidiasis - biopsies obtained to check for Karo/EOE. STOMACH: Gastritis - biopsied to check for H Pylori Plan:? Start Fluconazole for esophageal candidiasis - likely source of dysphagia and odynophagia. Resume Eliquis tonight. 09/13/21 FLEXIBLE SIGMOIDOSCOPY SHOWED: Flexible Sigmoidoscopy Findings: Focal tight stricture from 15 to 18 cms with ulcerations. Stricture was dilated with a 10, 11 and 12 mm (36 F) CRE balloon x 60 sec at each level. Biopsies were obtained from the stricture and colon at 30 and 10 cms (proximal and distal to the stricture) Plan:? Resume full liquid diet tonight and advance diet as tolerated. OK to resume Eliquis in the am. Switch to PO prednisone at 40 mg in the am and taper by 10 mg every 5 days over 3 weeks. BIOPSIES SHOWED: A.? Colon, sigmoid at 30 cm, biopsy:? Focal chronic colitis without activity; negative for dysplasia and carcinoma. B.? Colon, sigmoid at 18 cm, stricture, biopsy:? Chronic colitis with mild to severe activity and active ulcer with granulation tissue, superficial fragments; negative for dysplasia and carcinoma. C.? Colon, sigmoid at 10 cm, biopsy:? Chronic colitis without activity; negative for dysplasia and carcinoma. Colonoscopy in 01/18/20 showed patchy erythema throughout the colon - surveillance biopsies were obtained. Focal area of ulcerations with a tight stricture at 18 to 20 cms and unable to pass the colonoscope through the stricture. Stricture was dilated with a 12mm (26 F) CRE balloon and colonoscope was then advanced into the colon. Patchy erythema with focal ulcers in the distal rectum. Inflammation in the recto-sigmoid significantly improved from last year - severe left sided colitis with minimal inflammation in the remaining colon. were negative for CMV PFSH Medical History (Updated 08/15/25 @ 07:45 by Libby Palafox MD) History of sigmoidoscopy Urge incontinence Stricture of colon Anxiety Sleep apnea Asthma GERD (gastroesophageal reflux disease) Pulmonary embolism Crohn's disease PTSD (post-traumatic stress disorder) Hyperlipidemia Hemorrhagic cyst of ovary Kidney stones Depression Iron deficiency anemia Rheumatoid arthritis Migraine Cancer HTN (hypertension) Surgical History History of esophagogastroduodenoscopy (EGD) History of colon resection History of colon resection Hx of dilation and curettage Hx of cystoscopy Hx of cystoscopy Hx of colonoscopy (~10/2018) Hx of endoscopy Social History Household Members: None Housing: Apartment Are you a primary care team assistant to a significant other at home: No Do you presently have visiting nurse or other home services: No ([employer] daily) Alcohol intake: never Patient Tobacco Use Status: Former Tobacco user Tobacco use type: Cigarette Cigarettes Per Day: 1 Years Smoked: 10 e-Cigarette/Vaping Use: Former Use Second Hand Smoke Exposure: No Substance Use Type: Marijuana Advance Directives Date on File: 02/13/24 service: No Current occupational status: unemployed and disabled Sexual orientation: Straight/Heterosexual Review of Systems Const All systems reviewed & are unremarkable except as noted in HPI and below Physical Exam Vital Signs: Last Vital Signs Pulse 64 08/15/25 07:51 BP 101/58 L 08/15/25 07:51 BMI result Body Mass Index 28.0 Const General: no acute distress Nutritional Appearance: overweight Orientation/consciousness: patient oriented x3 Limitations: no limitations HEENT Head: Yes normal to inspection Ears: hearing grossly normal bilaterally Eyes Sclerae: sclerae normal Pupils: Equal, round and reactive pupils present Neck Neck: Yes normal visual inspection Chest Chest palpation & inspection: normal inspection of the chest Resp Effort & Inspection: normal respiratory effort Auscultation: clear to auscultation bilaterally Cardio Palpation: normal PMI Rate: regular rate Rhythm: regular rhythm Heart sounds: S1 normal heart sound present, S2 normal heart sound present and no murmurs GI Palpation (GI): Soft to palpation, Tenderness to palpation present (GI) (Mild LLQ tenderness) and No hepatosplenomegaly present Auscultation: normal bowel sounds Rectal Exam - Female: deferred Skin General skin exam: no rashes or lesions noted Neuro General: patient oriented x3, gait normal and moves all extremities Cranial nerves: Yes Equal, round and reactive pupils present Psych Appearance: grossly normal Mental Status: mental status grossly normal Assessment & Plan Assessment & Plan (1) GERD (gastroesophageal reflux disease): Code(s): K21.9 - Gastro-esophageal reflux disease without esophagitis Category: Medical (2) Chronic constipation: Code(s): K59.09 - Other constipation Category: Medical (3) Crohn's colitis: Code(s): K50.10 - Crohn's disease of large intestine without complications Category: Medical Qualifiers: Digestive disease complication type: with rectal bleeding Qualified Code(s): K50.111 - Crohn's disease of large intestine with rectal bleeding (4) Diarrhea: Code(s): R19.7 - Diarrhea, unspecified Category: Medical Qualifiers: Diarrhea type: unspecified type Qualified Code(s): R19.7 - Diarrhea, unspecified Plan 54 year old German-speaking (able to speak some Nauruan) female with RA, GERD, asthma, sleep apnea, iron def anemia, intermittent compliance with follow up appointments, anxiety, depression with some memory loss with Crohn's disease involving the left colon (and suspected jejunal involvement). Pt was diagnosed with Crohn's colitis 24 yrs ago and is status post sigmoid colectomy with colostomy in 2010, reversal of colostomy in 2011. She has failed treatment with multiple medications in the past due to lack of efficacy or side effects including Remicade, Humira, Cimzia, Entyvio, azathioprine caused pancreatitis. She has been on Stelara every 8 weeks which had worked well for her in the past. Dose of Stelara was increased to every 4 weeks 2 years ago due to breakthrough symptoms and low trough levels. She has been treated with Prednisone intermittently for CD flares. Patient was seen at [facility] IBD clinic for a 2nd opinion regarding treatment options and addition of methotrexate was advised. Patient was started on methotrexate 25 mg intramuscularly every week on 04/13/19 in the Oncology clinic. She was switched to p.o. methotrexate 50 mg once a week in Sep, 2019 - now taking 25 mg every week. She is also on budesonide 9 mg once daily. She continues to have intermittent flares requiring IV steroids. Pt was seen at [facility] on 05/03/20 and dose of MTX was increased to 25 mg PO (10 tab) every week from 5 or 6 tablets daily in March 2020. 09/13/21 Flexible sigmoidoscopy showed a?focal tight stricture from 15 to 18 cms with ulcerations. Stricture was dilated to 12 mm (36 F) with a CRE balloon. Biopsies obtained from the stricture showed chronic colitis with mild to severe activity and active ulcer with granulation tissue - negative for dysplasia and carcinoma? Biopsies obtained from 30 and 10 cms (proximal and distal to the stricture) showed focal chronic colitis without activity. 05/17/22 Pt had Robot assisted laparoscopic lysis of adhesions with resection of colorectal anastomosis and new colorectal anastomosis with loop ileostomy and left ureterolysis and mobilization of the splenic flexure by Dr Mcdonough, colorectal surgeon, [facility].? No dysplasia noted on histology. She has a FU appt to schedule ileostomy reversal after gastrograffin enema. 02/20/23 Pt will be scheduled for a surveillance colonoscopy - scheduled on 08/11/23. Advised to hold Eliquis for 3 days before colonoscopy appt (will obtain clearance from Dr Blake) Miralax once a day for constipation. Labs in March 2023. 05/29/23 mid abdominal/periumblical pain x last week Pain is intense 9/10 in intensity Seen in the ER at [facility] and prescribed oxycodone 02/20/24 Doing OK at present. Pt reports having a normal BM 2 or more times a day. Initially had diarrhea. Notes intermittent abd discomfort due to the seroma Scheduled to see surgery at [facility] Taking Miralax once a day and laculose once a day with good evacuation and denies feeling backed up. Appetite has improved after she took prednisone. Abdominal pain is likely related to seroma. Pt advised to check a fecal calprotectin to rule out active Crohn's disease Referral sent to the dietitian to discuss diet for Crohn's disease at request of patient and her daughter. 05/31/24 Feeling better and denies abdominal pain, diarrhea or constipation Abdominal pain was likely due to abd wall seroma - now resolved Advised to schedule an EGD (FU of esophagitis) and Colon (FU of Crohn's disease) 11/08/24 EGD AND COLONOSCOPY SHOWED: Endoscopy Findings: ESOPHAGUS: Normal STOMACH: Moderate gastric antral erythema DUODENUM: Normal Colonoscopy Findings: No polyps were detected Friable mucosa with patchy erythema and scattered aphthoid ulcers with active colitis from 0 to 30 cms and mild colitis in the rest of the colon - multiple biopsies were obtained. Moderate diverticulosis seen in the sigmoid colon Moderate hemorrhoids on retroflexed exam. Plan: Repeat Colonoscopy in 2 years for Crohn's disease surveillance. BIOPSIES SHOWED: A. Gastric antrum, biopsy: Gastric antral mucosa with minimal chronic gastritis with few focal neutrophils; no granuloma seen; negative for intestinal metaplasia and dysplasia. B. Colon, cecum, biopsy: Chronic colitis with mild activity and focal mucosal microgranulomas; negative for dysplasia. C. Colon, ascending, biopsy: Focal chronic colitis with minimal activity, mucosal microgranulomas, and granulomas in submucosal lymphoid aggregate; negative for dysplasia. D. Colon, transverse, biopsy: Focal chronic colitis with mild activity; no granulomas or dysplasia. E. Colon, sigmoid, biopsy: Focal chronic colitis with moderate activity and surface erosion; no granulomas or dysplasia. Comment: (A): Immunostain for H. pylori was negative. (C): AFB and GMS stains - negative Patient was placed on the colonoscopy recall list for repeat colon in 2 years 11/23/24 EGD and colon results were reviewed with the patient Complains of constipation - has 15 or more BMs a day and stool is hard. Notes abdominal pain and cramps and has to go to the bathroom Abd pain is a little better 10 min after a BM. Pt advised to increase lactulose to 30 ml twice daily and start Prednisone taper 12/2024 Tofacitinib (Xeljanz) 10 mg PO twice daily was added. Pt reports compliance with Stelara injection, MTX and budesonide. She noted that she starts feeling bad 2 weeks after the Stelara injection. 06/09/25 Pt complains of constipation Advised to increase Lactulose to twice daily Start Linzess 145 mcg daily Schedule a Flex Sig in 2-4 weeks to FU on UC 08/15/25 Pt continues to have abdominal pain, intermittent diarrhea with rectal bleeding. Recent Flexible sigmoidoscopy showed scattered ulcers in the digmoid colon and ulcers in the rectum. Recent labs showed elevated fecal calprotectin of 430 Switch to Skyrizi after next Stelara injection. FU in 8 weeks Orders: Referrals Infusion Center Notification K50.011 - Crohn's disease of small intestine with rectal bleeding Medications: Changed From pantoprazole (Protonix) 40 mg PO DAILY@0630 K21.9 - Gastro-esophageal reflux disease without esophagitis To pantoprazole (Protonix) 40 mg PO DAILY@0630 90 tabs 1RF 90 days K21.9 - Gastro-esophageal reflux disease without esophagitis Coding Level of Care Code Est Pt Level 4 (56668) Diagnoses GERD (gastroesophageal reflux disease) K21.9 Chronic constipation K59.09 Crohn's disease of colon with rectal bleeding K50.111 Digestive disease complication type: with rectal bleeding Diarrhea R19.7 Diarrhea type: unspecified type Time Spent (min) 21
--- OUTSIDE RECORDS SUMMARY | 2025-08-15 07:39 | XMS_ITS | Encounter Summary ---
Author Organization [employer] Address [address] [facility] 7t [place] [address] Care Team Providers Care Gas Specialist Name Role Phone Leesa Rapp MD Primary Care Provide r Adam Hanson RN Unavailable [phone] Cathy Rucker Unavailable Encounter Details Date Type Department Care Team (Late st Contact Info) Description 05/02/2025 Orders Only [facility] [address] [place] [address] Leesa Rapp MD [address] [place], [place] [phone] Social History Tobacco Use Types Packs/Day Years [...] documented as of this encounter Care Teams Gas Specialist Relationship Specialty Start Date End Date Leesa Rapp MD [address] [place] [address] PCP - General Family Medicine 10/15/19 Adam Hanson RN [address] [place] [phone] Registered Nurse Family Medicine 04/26/25 07/25/25 Cathy Rucker 04/26/25 07/25/25 Chaparrita Monsalve Airport ClerkRn Oncology Clinical 05/26/25 documented as of this encounter
--- OUTSIDE RECORDS SUMMARY | 2025-08-15 07:39 | XMS_ITS | Encounter Summary ---
Author Organization [employer] Address [address] [facility] [address] 7[address] [place] [address] Care Team Providers Care Media Intern Name Role Phone Leesa Rapp MD Primary Care Provide r Adam Hanson RN Unavailable [phone] Cathy Rucker Unavailable Encounter Details Date Type Department Care Team (Late st Contact Info) Description 07/18/2025 Results Follow-Up [facility] [address] [place] [address] Danica Sharpe MD [address] [place] [address] Basic Metabolic Panel, Sed Rate by Modified [...] documented as of this encounter Care Teams Media Intern Relationship Specialty Start Date End Date Leesa Rapp MD [address] [place] [phone] PCP - General Family Medicine 10/15/19 Adam Hanson RN [address] [place] [address] Registered Nurse Family Medicine 04/26/25 07/25/25 Cathy Rucker 04/26/25 07/25/25 Chaparrita Monsalve Maintenance GroundskeeperCushion Cover Inspector 05/26/25 documented as of this encounter
--- OUTSIDE RECORDS SUMMARY | 2025-08-15 07:39 | XMS_ITS | Encounter Summary ---
Author Organization [employer] Address [address] [facility] 7t [place] [address] Care Team Providers Care Commercial Drone Pilot Name Role Phone Leesa Rapp MD Primary Care Provide r Adam Hanson RN Unavailable [phone] Cathy Rucker Unavailable Encounter Details Date Type Department Care Team (Late st Contact Info) Description 11/28/2022 Abstract [facility] [address] [place] [address] Leesa Rapp MD [address] [place], [place] [phone] Social History Tobacco Use Types Packs/Day Years [...] on filedocumented in this encounter Care Teams Commercial Drone Pilot Relationship Specialty Start Date End Date Leesa Rapp MD [address] [place] [address] PCP - General Family Medicine 10/15/19 Adam Hanson, ANTONIO [address] [place] [address] Registered Nurse Family Medicine 04/26/25 07/25/25 Cathy Rucker 04/26/25 07/25/25 Chaparrita Monsalve Marketing Area ManagerDaycare Teacher 05/26/25 documented as of this encounter
--- OUTSIDE RECORDS SUMMARY | 2025-08-15 07:39 | XMS_ITS | Encounter Summary ---
Author Organization [employer] Address [address] [facility] 7t [place] [address] Care Team Providers Care Supervisor Blood Donor Recruiters Name Role Phone Leesa Rapp MD Primary Care Provide r Adam Hanson RN Unavailable [phone] Cathy Rucker Unavailable Reason for Visit * Reason Comments Med Refill Encounter Details Date Type Department Care Team (Late st Contact Info) Description 04/28/2023 Refill [facility] [address] [place], [place] [phone] Christy Stockton DO [address] [place], [place] [phone] Healthcare maintenance Social History Tobacco Use Types [...] maintenance documented in this encounter Care Teams Supervisor Blood Donor Recruiters Relationship Specialty Start Date End Date Leesa Rapp MD [address] [place] [address] PCP - General Family Medicine 10/15/19 Adam Hanson, RN [address] [place] [address] Registered Nurse Family Medicine 04/26/25 07/25/25 Cathy Rucker 04/26/25 07/25/25 Chaparrita Monsalve Curbing StonecutterGround Service Equipment Mechanic 05/26/25 documented as of this encounter
--- OUTSIDE RECORDS SUMMARY | 2025-08-15 07:39 | XMS_ITS | Clinical Summary ---
Author Organization [employer] [facility] Address [address] [place] [address] Care Team Providers Care Repair Supervisor Name Role Phone Macy Washburn NP Primary Care Provider [phone] Social History Tobacco Use Types Packs/Day Years [...] age to complete this topic Care Teams Repair Supervisor Relationship Specialty Start Date End Date Macy Washburn NP [address] [place] [phone] PCP - General 03/12/05
--- OUTSIDE RECORDS SUMMARY | 2025-08-15 07:39 | XMS_ITS | Encounter Summary ---
Author Organization [employer] Address [address] [facility] 7t [place] [address] Care Team Providers Care Camp Manager Name Role Phone Leesa Rapp MD Primary Care Provide r Adam Hanson RN Unavailable [phone] Cathy Rucker Unavailable Reason for Visit * Reason Comments Med Refill Encounter Details Date Type Department Care Team (Late st Contact Info) Description 12/31/2022 Refill [facility] [address] [place], [place] [phone] Vee Harris MD [address] [place], [place] [phone] Moderate persistent asthma without complication Social History [...] complication documented in this encounter Care Teams Camp Manager Relationship Specialty Start Date End Date Leesa Rapp MD [address] [place] [address] PCP - General Family Medicine 10/15/19 Adam Hanson RN [address] [place] [address] Registered Nurse Family Medicine 04/26/25 07/25/25 Cathy Rucker 04/26/25 07/25/25 Chaparrita Monsalve Service Order ExpediterDirector Alumni Relations 05/26/25 documented as of this encounter
--- OUTSIDE RECORDS SUMMARY | 2025-08-15 07:39 | XMS_ITS | Encounter Summary ---
Author Organization [employer] Address [address] [facility] [address] [place] [address] Care Team Providers Care Foundation Maker Name Role Phone Leesa Rapp MD Primary Care Provide r Reason for Visit * Reason Onset Date Comments telephone call 08/11/2025 Encounter Details Date Type Department Care Team ([facility] st Contact Info) Description 08/11/2025 Telephone [facility] MED[facility] [address] [place] [address] Leesa Rapp MD [address] [place] [address] telephone call Social History Tobacco Use Types Packs/Day Years [...] encounter Miscellaneous Notes * Telephone Encounter - Pat Collazo RN - 08/11/2025 3:09 PM EST TC returned to patient [phone] in regards to below message. Patient did not answer, RN left VMrequesting CB to red team nurses. Patient to f/u PRN. * Telephone Encounter - Lesli Osuna - 08/11/2025 10:59 AM EST Pt walked in requesting a refill for Lidocaine patches. documented in this encounter Plan of Treatment Not on file documented as of this encounter Visit Diagnoses Not on filedocumented in this encounter Additional Health Concerns Assessment Noted Time PHQ-9 Depression Total Score: 19 025 9:53 AM EDT documented as of this encounter Care Teams Foundation Maker Relationship Specialty Start Date End Date Leesa Rapp MD [address] [place] [address] PCP - General Family Medicine 10/15/19 Chaparrita Monsalve Grain Merchandising ManagerSupervisor Hand Silvering 05/26/25 documented as of this encounter
--- OUTSIDE RECORDS SUMMARY | 2025-08-15 07:39 | XMS_ITS | Encounter Summary ---
Author Organization [employer] Address [address] [facility] [address] [place] [address] Care Team Providers Care Supervisor Remelt Name Role Phone Leesa Rapp MD Primary Care Provide r Adam Hanson RN Unavailable [phone] Cathy Rucker Unavailable Encounter Details Date Type Department Care Team ([facility] st Contact Info) Description 10/30/2022 Orders Only [facility] & PEDS [address] [place], [place] [phone] Christy Kaye LPN Social History Tobacco Use [...] on filedocumented in this encounter Care Teams Supervisor Remelt Relationship Specialty Start Date End Date Leesa Rapp MD [address] [place], [place] [phone] PCP - General Family Medicine 10/15/19 Adam Hanson, ANTONIO [address] [place] [id number] Registered Nurse Family Medicine 04/26/25 07/25/25 Cathy Rucker 04/26/25 07/25/25 Chaparrita Monsalve Cattle Alley WorkerHand Wood Sander 05/26/25 documented as of this encounter
--- OUTSIDE RECORDS SUMMARY | 2025-08-15 07:39 | XMS_ITS | Encounter Summary ---
Author Organization [employer] Address [address] [facility] [address] [place] [address] Care Team Providers Care Cena Name Role Phone Leesa Rapp MD Primary Care Provide r Adam Hanson RN Unavailable [phone] Cathy Rucker Unavailable Reason for Visit * Reason Comments Med Refill Encounter Details Date Type Department Care Team (Late st Contact Info) Description 01/31/2023 Refill [facility] MED & PEDS [address] [place], [place] [phone] Christy Stockton DO [address] [place], [place] [phone] Anxiety Social History Tobacco Use Types Packs/Day [...] unspecified documented in this encounter Care Teams Cena Relationship Specialty Start Date End Date Leesa Rapp MD [address] [place] [address] PCP - General Family Medicine 10/15/19 Adam Hanson RN [address] [place] [address] [place] [phone] Registered Nurse Family Medicine 04/26/25 07/25/25 Cathy Rucker 04/26/25 07/25/25 Chaparrita Monsalve Exercise TeacherBonbon Cream Warmer 05/26/25 documented as of this encounter
--- OUTSIDE RECORDS SUMMARY | 2025-08-15 07:40 | XMS_ITS | Encounter Summary ---
Author Organization [employer] Address [address] [place] [address] Care Team Providers Care C Web Developer Name Role Phone Leesa Rapp MD Primary Care Provide r Adam Hanson RN Unavailable [phone] Cathy Rucker Unavailable Encounter Details Date Type Department Care Team (Late st Contact Info) Description 09/04/2022 Orders Only [facility] [address] [place] [address] Alayna Delcid LPN Social History Tobacco Use [...] on filedocumented in this encounter Care Teams C Web Developer Relationship Specialty Start Date End Date Leesa Rapp MD [address] [place] [address] PCP - General Family Medicine 10/15/19 Adam Hanson, RN [address] [place] [id number] Registered Nurse Family Medicine 04/26/25 07/25/25 Cathy Rucker 04/26/25 07/25/25 Chaparrita Monsalve Sausage Meat TrimmerPhysical Therapy Instructor 05/26/25 documented as of this encounter
--- OUTSIDE RECORDS SUMMARY | 2025-08-15 07:40 | XMS_ITS | Encounter Summary ---
Author Organization [employer] Address [address] [facility] [address] [place] [address] Care Team Providers Care Traffic Superintendent Name Role Phone Leesa Rapp MD Primary Care Provide r Adam Hanson RN Unavailable [phone] Cathy Rucker Unavailable Reason for Visit * Reason Comments Med Refill Encounter Details Date Type Department Care Team ([facility] st Contact Info) Description 04/29/2024 Refill [facility] MEDICINE [address] [place], [place] [phone] Leesa Rapp MD [address] [place], [place] [phone] Anxiety Social History Tobacco Use Types Packs/Day [...] documented as of this encounter Care Teams Traffic Superintendent Relationship Specialty Start Date End Date Leesa Rapp MD [address] [place] [address] PCP - General Family Medicine 10/15/19 Adam Hanson RN [address] [place] [id number] Registered Nurse Family Medicine 04/26/25 07/25/25 Cathy Rucker 04/26/25 07/25/25 Chaparrita Monsalve Brick TesterFoam Rubber Curer 05/26/25 documented as of this encounter
--- OUTSIDE RECORDS SUMMARY | 2025-08-15 07:40 | XMS_ITS | Encounter Summary ---
Author Organization [employer] Address [address] [facility] [address] [place] [address] Care Team Providers Care Parts Cleaner Name Role Phone Leesa Rapp MD Primary Care Provide r Adam Hanson RN Unavailable [phone] Cathy Rucker Unavailable Reason for Visit * Reason Comments Med Refill Encounter Details Date Type Department Care Team (Late st Contact Info) Description 12/10/2024 Refill [facility] MED & PEDS [address] [place], [place] [phone] Leesa Rapp MD [address] [place], [place] [phone] Anxiety Social History Tobacco Use Types Packs/Day [...] documented as of this encounter Care Teams Parts Cleaner Relationship Specialty Start Date End Date Leesa Rapp MD [address] [place] [address] PCP - General Family Medicine 10/15/19 Adam Hanson RN [address] [place] [phone] Registered Nurse Family Medicine 04/26/25 07/25/25 Cathy Rucker 04/26/25 07/25/25 Chaparrita Monsalve Rug Dry Room AttendantJunior High School Principal 05/26/25 documented as of this encounter
--- OUTSIDE RECORDS SUMMARY | 2025-08-15 07:40 | XMS_ITS | Encounter Summary ---
Author Organization [employer] Address [address] [facility] [address] [place] [address] Care Team Providers Care Brake Operator Sheet Metal Name Role Phone Leesa Rapp MD Primary Care Provide r Adam Hanson RN Unavailable [phone] Cathy Rucker Unavailable Reason for Visit * Reason Comments Med Refill Encounter Details Date Type Department Care Team (Late st Contact Info) Description 12/01/2024 Refill [facility] MED & PEDS [address] [place], [place] [phone] Leesa Rapp MD [address] [place], [place] [phone] Anxiety Social History Tobacco Use Types Packs/Day [...] documented as of this encounter Care Teams Brake Operator Sheet Metal Relationship Specialty Start Date End Date Leesa Rapp MD [address] [place] [address] PCP - General Family Medicine 10/15/19 Adam Hanson RN [address] [place] [phone] Registered Nurse Family Medicine 04/26/25 07/25/25 Cathy Rucker 04/26/25 07/25/25 Chaparrita Monsalve Account Service RepresentativeSupervisor [employer] 05/26/25 documented as of this encounter
--- OUTSIDE RECORDS SUMMARY | 2025-08-15 07:40 | XMS_ITS | Clinical Summary ---
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 024 2024 Discontinued(R eorder (will not trigger notification to Pharmacy)) montelukast (Singulair) 10 MG tabletIndications :Moderate persistent asthma without complication TAKE 1 TABLET BY MOUTH AT BEDTIME 90 tablet 1 025 2024 Discontinued busPIRone (Buspar) 5 MG tabletIndications :Anxiety TAKE 1 TABLET BY MOUTH EVERY DAY 90 tablet 1 025 2024 Discontinued budesonide-formot carisa (Symbicort) 160-4.5 [...] 60 tablet 2 07/18/20 11:39 AM EST 025 2024 Discontinued topiramate (Topamax) 100 MG tabletIndications :Chronic nonintractable headache, unspecified headache type TAKE 1 TABLET BY MOUTH TWICE DAILY IN THE MORNING AND AT BEDTIME 60 tablet 2 07/18/20 11:39 AM EST 025 2024 Discontinued gabapentin (Neurontin) 100 MG capsuleIndication s:Anxiety TAKE 1 CAPSULE BY MOUTH TWICE DAILY 60 capsule 1 025 2024 Discontinued dicyclomine (Bentyl) 10 MG capsule Take 10 mg by mouth. 025 2024 Discontinued(M ed list cleanup (will not trigger notification to Pharmacy)) loperamide (Imodium A-D) 2 MG tablet Take 1-2 tablets (2-4 mg) by mouth if needed in the morning, at noon, in the evening, and at bedtime for diarrhea for up to 10 days. 30 tablet 1 2024 nystatin (Mycostatin) 124611 UNIT/ML suspension Take 4 mL (400,000 Units) by mouth 4 times daily for 14 days. 224 mL 2024 ondansetron (Zofran) 4 MG tablet Take 2 tablets (8 mg) by mouth every 8 (eight) hours if needed for nausea or vomiting for up to 15 days. 30 tablet 2024 oxyCODONE (Roxicodone) 5 MG immediate release tabletIndications :Calculus of left kidney Take 1 tablet (5 mg) by mouth every 6 (six) hours if needed for severe pain for up to 5 days. 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 - FU Urine culture for [...] with results Acute Crohn's disease, unspecified complication ([facility]) 04/07/2025 Assessment & Plan (04/07/2025 5:12 PM [...] appointment Crohn's disease of rectum with complication ([facility]) 12/08/2024 Assessment & Plan (12/08/2024 5:20 PM EDT): I will prescribe for patient short course of oxycodone for pain and Zofran for nausea I advised to follow-up with gastroenterology and do not miss the upcoming appointment for further management and treatment of her Crohn's Nausea 12/08/2024 Crohn's disease with complication ([facility]) 10/24 Assessment & Plan (11/17/2024 1:59 PM [...] Mixed hyperlipidemia 05/07/2018 Headache 05/29/2015 Crohn disease ([facility]) 05/29/2015 Assessment & Plan (07/19/2025 4:19 PM [...] loperamide prescription for diarrhea; if unavailable, continue [id number] loperamide. 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 C/w [...] today Rheumatoid arthritis involving multiple joints ( [facility]) 05/29/2015 Assessment & Plan (04/27/2023 7:32 AM EDT): 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 She asks about pain mgmt, but the majority of her pain is intra-abdominal I think pain mgmt would have little to offer her, and that focus should be on her her Crohn's activity Vitamin D deficiency 05/29/2015 Resolved Problems Problem Noted Date Diagnosed Date Resolved Date Pulmonary embolism 11/15/2022 3 Encounters Date Type Department Care Team Description 08/11/2025 Telephone [facility] [address] [place] [address] Leesa Rapp MD telephone call 08/10/2025 Orders Only GENERIC EXTERNAL DATA DEPARTMENT Provider, Generic External Data 08/03/2025 Refill [facility] [address] [place] [address] Leesa Rapp MD Anxiety; Depression with anxiety; Moderate persistent asthma without complication; Chronic nonintractable headache, unspecified headache type 08/03/2025 Refill [facility] [address] [place] [address] Puneet Kraft MD Anxiety; Moderate persistent asthma without complication 07/25/2025 Patient Outreach [address] [address] Leesa Rapp MD 07/19/2025 Results Follow-Up [address] [address] Danica Sharpe MD Urinalysis, Complete, with Reflex to Culture, CBC, Basic Metabolic Panel 07/18/2025 10:00 AM EST Office Visit [address] [address] Danica Sharpe MD Calculus of left kidney (Primary Dx); Crohn's disease with complication, unspecified gastrointestinal tract location (CMS/HCC) (HCC); Crohn's disease of rectum with complication (CMS/HCC) (HCC) 07/18/2025 Results Follow-Up [address] [address] Danica Sharpe MD Basic Metabolic Panel, Sed Rate by Modified Westergren 07/18/2025 Orders Only GENERIC EXTERNAL DATA DEPARTMENT Provider, Generic External Data 07/18/2025 Travel 07/15/[address] [address] Leesa Rapp MD chart prep 07/12/[address] [address] Leesa Rapp MD Nurse Triage; Medication Question 07/11/[address] [address] Bronwyn Gage, ANTONIO 07/09/2025 12:40 PM EST Office Visit [facility] [address] [place] [phone] Sepideh Worthington MD Crohn's disease with complication, unspecified gastrointestinal tract location (CMS/HCC) (HCC) (Primary Dx); Vaginal discharge; Mild intermittent asthma without complication; Moderate persistent asthma, unspecified whether complicated 07/09/2025 Travel 07/08/2025 Orders Only GENERIC EXTERNAL DATA DEPARTMENT Provider, Generic External Data 07/07/2025 Patient Outreach [address] [address] Leesa Rapp MD 07/06/2025 Patient Outreach [address] [address] Leesa Rapp MD Pre-visit Planning (HDF- scheduled and SDOH screening completed on 11/08/2024) 07/04/2025 Patient Outreach [address] [address] Leesa Rapp MD 06/28/2025 Orders Only [facility] External Provider, [facility] 06/07/[address] [address] Leesa Rapp MD Healthcare maintenance; Vitamin D deficiency 06/04/2025 Refill [facility] [address] [place] [address] Leesa Rapp MD Anxiety 05/26/2025 Telephone [facility] P[facility] [address], [place] [phone] Leesa Rapp MD Care Coordination (ICP Care Plan) 05/24/2025 Patient Outreach [address] [address] Leesa Rapp MD Care Coordination (CM/CHW outreach) 05/23/2025 Results Follow-Up [address] [address] Vee Harris MD Sed Rate by Modified Westergren, C-reactive Protein, CBC auto differential, Additional followed-up results: 3 05/16/2025 2:45 PM EDT Office Visit [address] [address] Vee Harris MD Crohn's disease with complication, unspecified gastrointestinal tract location (CMS/HCC) (Primary Dx); Sexually transmitted infection 05/16/2025 Travel from Last 3 Months Immunizations Immunization [...] Colonography 1970 FIT DNA/Cologuard 1970 FIT 1970 COVID-19 Vaccine (#1) 1975 RSV Patients [...] 07/03/2023, 07/03/2023 Lipid Panel 05/19/2029 05/19/2024, 11/17/2020 Sigmoidoscopy 07/01/2030 07/01/2025 Hepatitis B Vaccines Completed 02/04/2018, 10/21/2011, 09/16/2011 [...] time period is included. Color Urine Yellow [facility] Appearance Urine Clear [facility] PH 5.0 5.0 - 9.0 [facility] Glucose Urine UA Negative Negative mg/dL [facility] Urine Blood Trace(A) Negative [facility] Specific [place] - Urine 1.015 1.005 - 1.025 [facility] Urine Protein Negative Neg-Trace mg/dL [facility] Urine Ketones Negative Negative mg/dL [facility] Nitrite Urine Negative Negative [facility] Leukocyte Esterase Urine Negative Negative [facility] RBC Urine 0-2 0 - 2 /HPF [facility] Urine WBC 0-5 0 - 5 /HPF [facility] Urine Squamous Epithelial Cell 0-2 0 - 2 /HPF [facility] Urine Bacteria None Seen None Seen [facility] Hyaline Casts, Urine 0-2 0 - 2 /LPF [facility] 08/10/2025 11:1 7 AM EST 08/10/2025 2:19 PM EST Narrative [facility] - 08/10/2025 2:37 PM EST Urine, Clean Catch us Generic External Data Provider LAB URINE ORDERAB LES Final Result [facility] [address] [place] [address] [phone] * Sed Rate by Modified Tamia (08/10/2025 11:17 AM EST) Only the most recent of3 resultswithin the time period is included. Pathologist [facility] Erythrocyte Sedimentation Rate 26 1 - 30 MM/HR [facility] Comment:Patients with polycy themia and many hemoglobin abnormalitiesmay have depressed sed rates whereas patients with anemiamay have elevated sed rates. Blood Venous blood specimen / Unknown 08/10/2025 11:17 AM EST 08/10/2025 2:17 PM EST Danica Sharpe MD LAB BLOOD ORDERABLES Fin al Result [facility] [address] [place] [phone] * T-SPOT??.TB (07/18/2025 10:55 AM EST) Pathologist [facility] T Spot TB Negative Negative [facility] Comment:A negative test resu lt does [...] as aquantitative test. TS PANEL A 0 [facility] TS PANEL B 2 [facility] Negative Control Passed [facility] Positive Control Passed [facility] Comment:For additional infor soraida, please refer [email or web address].[employer]A Management/faq/EOA147(This link is being provided for informational/educational purposes only.)THIS TEST WAS PERFORMED AT:[employer] [id number] [place] [address]YSRPRHFRAYMUNDO ALLAN MD,PHD 07/18/2025 10:5 5 AM EST 07/18/2025 1:04 PM EST us Generic External Data Provider LAB BLOOD ORDERAB LES Final Result [facility] [address] [place] [phone] * (ABNORMAL) CBC (07/18/2025 10:55 AM EST) White Blood Count 5.9 4.8 - 10.8 X10*3/uL [facility] Red Blood Count 4.38 4.20 - 5.50 X10*6/uL [facility] Hemoglobin 11.8(L) 12.0 - 16.0 g/dl [facility] Hematocrit 37.7 37.0 - 47.0 % [facility] Mean Corpuscular Volume 86.1 80.0 - 98.0 fL [facility] Mean Corpuscular Hemoglobin 26.9(L) 27.0 - 33.0 pg [facility] Mean Corpuscular HGB Conc 31.3 31.0 - 35.0 g/dl [facility] Red Cell Distribution Width 15.7 11.0 - 16.0 % [facility] Platelet Count 300 160 - 400 X10*3/uL [facility] Mean Platelet Volume 11.9 9.4 - 12.3 fL [facility] NRBC Pct Auto 0.0 0.0 - 0.2 /100WBC [facility] NRBC Abs Auto 0.000 0.0 - 0.012 X10*3/uL [facility] 07/18/2025 10:5 5 AM EST 07/18/2025 1:04 PM EST us Generic External Data Provider LAB BLOOD ORDERAB LES Final Result [facility] [address] [place] [phone] * Basic Metabolic Panel (07/18/2025 10:55 AM EST) Only the most recent of2 resultswithin the time period is included. Sodium 143 135 - 145 mmol/L [facility] Potassium 4.0 3.3 - 5.1 mmol/L [facility] Chloride 107 96 - 108 mmol/L [facility] Carbon Dioxide 28 22 - 29 mmol/L [facility] Anion Gap 12 12 - 20 [facility] Urea Nitrogen (BUN) 14 9 - 16 mg/dL [facility] Creatinine, Serum 0.77 0.5 - 1.4 mg/dL [facility] Estimated Glomerular Filt Rate >60 [facility] Comment:Chronic Kidney Disea se: Estimated GFR < 60 mL/min/1.69s8Mbazuz Kidney Disease: Estimated GFR < 15 mL/min/1.73m2 Glucose 77 60 - 115 mg/dL [facility] Calcium 9.8 8.4 - 10.2 mg/dL [facility] 07/18/2025 10:5 5 AM EST 07/18/2025 1:04 PM EST us Generic External Data Provider LAB BLOOD ORDERAB LES Final Result Performing Organization Address [facility] Co de Phone Number [facility] [address] [place] [phone] * Leukocytes Stool Qualitative (07/08/2025 1:13 PM EST) Leukocytes Stool Qualitative MOD: 3-9/OIF NEGATIVE [facility] 07/08/2025 1:13 PM EST 07/08/2025 1:21 PM EST us Generic External Data Provider LAB BODY FLUIDS A ND STOOLS ORDERABLES Final Result Performing Organization Address [facility] Co de Phone Number [facility] [address] [place] [phone] * CDiff Gene PCR (07/08/2025 1:13 PM EST) Pathologist [facility] CDiff Gene PCR NEGATIVE Negative [facility] Comment:If C. difficile stro ngly suspected despite one negativetest, a second test may be sent vs. empiric treatment forC. difficile infection. 07/08/2025 1:13 PM EST 07/08/2025 1:21 PM EST us Generic External Data Provider LAB BODY FLUIDS A ND STOOLS ORDERABLES Final Result [facility] [address] [place] [phone] * Gastrointestinal panel (07/08/2025 1:13 PM EST) [facility] Campylobacter Not Detected Not Detect. [facility] Plesiomonas shigelloides Not Detected Not Detect. [facility] Salmonella Not Detected Not Detect. [facility] Vibrio Not Detected Not Detect. [facility] Vibrio cholerae Not Detected Not Detect. [facility] YERSINIA ENTEROCOLITICA Not Detected Not Detect. [facility] Enteroaggregative E. coli (EAEC) Not Detected Not Detect. [facility] Enteropathogenic E. coli (EPEC) Not Detected Not Detect. [facility] Enterotoxigenic E. coli (ETEC) lt/st Not Detected Not Detect. [facility] Shiga-like toxin-producing E. coli (STEC) stx1/stx2 Not Detected Not Detect. [facility] E coli O157 Not applicable Not Detect. [facility] Comment:E. coli containing t he O157 antigen are a subset ofShiga-like toxin- producing E. coli (STEC). Shigella/Enteroinvasive E. coli (EIEC) Not Detected Not Detect. [facility] Cryptosporidium Not Detected Not Detect. [facility] Cyclospora cayetanensis Not Detected Not Detect. [facility] Entamoeba histolytica Not Detected Not Detect. [facility] Giardia lamblia Not Detected Not Detect. [facility] Adenovirus F 40/41 Not Detected Not Detect. [facility] Astrovirus Not Detected Not Detect. [facility] Norovirus GI/GII Not Detected Not Detect. [facility] Rotavirus A Not Detected Not Detect. [facility] Sapovirus Not Detected Not Detect. [facility] Comment: All results must be correlated [...] assay is performed by Multiplexed PCR, utilizing [employer] Array. 07/08/2025 1:13 PM EST 07/08/2025 1:21 PM EST us Generic External Data Provider LAB MICROBIOLOGY - GENERAL ORDERABLES Final Result [facility] [address] [place] [phone] * Slide Review (07/08/2025 9:50 AM EST) Slide Review VERIFIED [facility] 07/08/2025 9:50 AM EST 07/08/2025 9:53 AM EST us Generic External Data Provider LAB BLOOD ORDERAB LES Final Result [facility] [address] [place] [phone] * (ABNORMAL) CBC auto differential (07/08/2025 9:50 AM EST) Only the most recent of2 resultswithin the time period is included. White Blood Count 9.7 4.8 - 10.8 X10*3/uL [facility] Red Blood Count 5.40 4.20 - 5.50 X10*6/uL [facility] Hemoglobin 14.8 12.0 - 16.0 g/dl [facility] Hematocrit 43.6 37.0 - 47.0 % [facility] Mean Corpuscular Volume 80.7 80.0 - 98.0 fL [facility] Mean Corpuscular Hemoglobin 27.4 27.0 - 33.0 pg [facility] Mean Corpuscular HGB Conc 33.9 31.0 - 35.0 g/dl [facility] Red Cell Distribution Width 15.9 11.0 - 16.0 % [facility] Platelet Count 250 160 - 400 X10*3/uL [facility] Mean Platelet Volume 12.0 9.4 - 12.3 fL [facility] Neutrophils Percent Auto 60.3 45 - 73 % [facility] Imm Gran Pct Auto 0.6(H) 0.0 - 0.4 % [facility] Lymphocytes Percent Auto 18.3(L) 20 - 40 % [facility] Monocytes Percent Auto 20.2(H) 2 - 11 % [facility] Eosinophils Percent Auto 0.2 0 - 4 % [facility] Basophils Percent Auto 0.4 0 - 2 % [facility] NRBC Pct Auto 0.0 0.0 - 0.2 /100WBC [facility] Neutrophils Absolute Auto 5.8 2.0 - 8.3 x10*3/uL [facility] Imm Gran Abs Auto 0.06(H) 0.00 - 0.03 X10*3/uL [facility] Lymphocytes Absolute Auto 1.8 1.2 - 4.9 X10*3/uL [facility] Monocytes Absolute Auto 2.0(H) 0.1 - 1.2 X10*3/uL [facility] Eosinophils Absolute Auto 0.0 0.0 - 0.4 X10*3/uL [facility] Basophils Absolute Auto 0.0 0.0 - 0.2 X10*3/uL [facility] NRBC Abs Auto 0.000 0.0 - 0.012 X10*3/uL [facility] 07/08/2025 9:50 AM EST 07/08/2025 9:53 AM EST Generic External Data Provider LAB BLOOD ORDERAB LES Edited Result - Final Performing Organization Address [facility] de Phone Number [facility] [address] [place] [phone] * Lipase (07/08/2025 9:50 AM EST) Pathologist [facility] Lipase 28 8 - 78 U/L [facility] 07/08/2025 9:50 AM EST 07/08/2025 9:53 AM EST [employer] External Data Provider LAB BLOOD ORDERAB LES Final Result Performing Organization Address [facility] de Phone Number [facility] [address] [place] [phone] * (ABNORMAL) Comprehensive Metabolic Panel (07/08/2025 9:50 AM EST) Pathologist [facility] Sodium 136 135 - 145 mmol/L [facility] Potassium 3.1(L) 3.3 - 5.1 mmol/L [facility] Comment:Slight Hemolysis.Int erpret result with caution. Chloride 103 96 - 108 mmol/L [facility] Carbon Dioxide 21(L) 22 - 29 mmol/L [facility] Anion Gap 15 12 - 20 [facility] Urea Nitrogen (BUN) 21(H) 9 - 16 mg/dL [facility] Creatinine, Serum 1.35 0.5 - 1.4 mg/dL [facility] Creatinine Clr Calc Pharmacy 44.1 [facility] Comment:Provided height and weight: 160.02 cm,68.3 kg.eGFR (calculated from the MDRD study equation) and eCrCl(calculated from the Cockcroft-Gault equation) are based ondifferent parameters and may not yield comparable results.If eCrCl result is absurd, please check patient'sheight/weight. Estimated Glomerular Filt Rate 41 [facility] Comment:Chronic Kidney Disea se: Estimated GFR < 60 mL/min/1.28u8Hqzxmo Kidney Disease: Estimated GFR < 15 mL/min/1.73m2 Glucose 97 60 - 115 mg/dL [facility] Calcium 9.5 8.4 - 10.2 mg/dL [facility] Bilirubin, Total 0.3 0.0 - 1.0 mg/dL [facility] Aspartate Amino Transferase 27 5 - 31 U/L [facility] Comment:Slight Hemolysis.Int erpret result with caution. Alanine Aminotransferase 14 0 - 31 U/L [facility] Total Protein 8.3(H) 6.5 - 8.0 g/dL [facility] Albumin Level 4.6 3.5 - 5.0 g/dL [facility] Alkaline Phosphatase 78 39 - 117 U/L [facility] 07/08/2025 9:50 AM EST 07/08/2025 9:53 AM EST us Generic External Data Provider LAB BLOOD ORDERAB LES Final Result [facility] [address] [place] [phone] * CT Enterography Abdomen Pelvis w/ Contrast (07/04/2025 11:10 AM EST) Anatomical Region Laterality Modality Computed Tomogra phy 07/04/2025 11:1 0 AM EST Narrative 07/04/2025 12:01 PM EST [address] [address] [address] Scan Report Signed Patient: Leesa Reyes MR#: [id number] 682 : 1970 Acct:[id number] Age/Sex: 54 / F ADM Date: 06/30/25 [facility] [id number]: Lonny Huang MD Ordering Physician: Lonny Jimenez MD Date of Service: 07/04/25 Procedure(s): CT enterography Accession Number(s): [id number] cc: Lonny Jimenez MD; Leesa Rapp MD Report Number: [id number]: Total DLP = 385.00 mGy-cm Reason for [...] 07/04/25 1157 DD/ 1110 TD/TT: 07/04/25 1137 Archives Technician: Procedure Note Donotuseinterpreter, Image - 07/04/[address] [address] [address] Scan Report Signed Patient: Leesa Reyes [facility]#: [id number] 682 : 1970Acct:[id number] Age/Sex: 54 / FADM Date: 06/30/25 Loc: .S3 358-[address]: Lonny Huang MD Ordering Physician: Lonny Jimenez MD Date of Service: 07/04/25 Procedure(s): CT enterography Accession Number(s): [id number] cc: Lonny Jimenez MD; Leesa Rapp MD Report Number: [id number]: Total DLP = 385.00 mGy-cm Reason for [...] 07/04/25 1157 DD/ 1110 TD/TT: 07/04/25 1137 Archives Technician: [facility] External Provider IMG CT PROCEDURES Edited Result - Final * CT Abdomen Pelvis w/ Contrast (06/28/2025 7:39 AM EST) Anatomical Region Laterality Modality Body, Pelvis, Abdomen Computed T omography 06/28/2025 7:39 AM EST Narrative 06/28/2025 8:14 AM EST [place] [address] CT Scan Report Signed Patient: Leesa Reyes MR#: [id number] 682 : 1970 Acct:[id number] Age/Sex: 54 / F ADM Date: 06/28/25 Loc: HO.ED Attending Dr: Ordering Physician: Nella Morales Date of Service: 06/28/25 Procedure(s): CT abdomen pelvis w IV con Accession Number(s): [id number] cc: Leesa Rapp MD; Nella Morales Report Number: [id number]: Total DLP = 520.00 mGy-cm Reason for [...] 06/28/25 0811 DD/ 0739 TD/TT: 06/28/25 0749 Archives Technician: Procedure Note Donotuseinterpreter, Image - 06/28/[address] [place] [address] [address] Scan Report Signed Patient: Leesa Reyes MMR#: [id number] 682 : 1970Acct:[id number] Age/Sex: 54 / FADM Date: 06/28/25 Loc: HO.ED Attending Dr: Ordering Physician: Nella Morales Date of Service: 06/28/25 Procedure(s): CT abdomen pelvis w IV con Accession Number(s): [id number] cc: Leesa Rapp MD; Nella Morales Report Number: [id number]: Total DLP = 520.00 mGy-cm Reason for [...] 06/28/25 0811 DD/ 0739 TD/TT: 06/28/25 0749 Archives Technician: [facility] External Provider IMG CT PROCEDURES Final Result * Hepatitis C Antibody with Reflex to HCV, RNA, Quantitative, Real-Time PCR (05/18/2025 2:11 PM EDT) Hepatitis C Antibody Nonreactive Nonreactive [facility] Comment:Antibodies to HCV no t detected; does not exclude early acuteHCV infection. Blood Venous blood specimen / Unknown 05/18/2025 2:11 PM EDT 05/18/2025 4:13 PM EDT Vee Harris MD LAB BLOOD ORDERABLES Final Res ult [facility] [address] [place] [phone] * RPR (Monitor) with Reflex to??Titer (05/18/2025 2:11 PM EDT) RPR (Monitor) w/Refl Titer NON-REACTI VE NON-REACT TRUPTI [facility] Comment:THIS TEST WAS PERFOR MED AT:[address] [place] [phone] BARROW MD Rapid Plasma Reagin Ab Titer TNP [facility] Blood Venous blood specimen / Unknown 05/18/2025 2:11 PM EDT 05/18/2025 4:13 PM EDT Vee Harris MD LAB BLOOD ORDERABLES Final Res ult Performing Organization Address [facility]/ZIP Co de Phone Number [facility] [address] [place] [address] [phone] * HIV-1/2 Antigen and Antibodies, Fourth Generation, with Reflexes (05/18/2025 2:11 PM EDT) HIV AB/AG Nonreactive Nonreactive [facility] Comment:HIV-1 p24 Ag and/or HIV-1/HIV-2 Ab not detected.A test result that is nonreactive does not exclude thepossibility of exposure to or infection with HIV-1 and/orHIV-2. Nonreactive results in this assay for individualswith prior exposure to HIV-1 and/or HIV-2 may be due toantigen and antibody levels that are below the limit ofdetection of this assay.The [employer] HIV Ag/Ab Combo assay result andsupplemental assay results should be interpreted inconjunction with the patient's clinical presentation,history and other laboratory results. If the results areinconsistent with clinical evidence, additional testing issuggested to confirm the result. Blood Venous blood specimen / Unknown 05/18/2025 2:11 PM EDT 05/18/2025 4:13 PM EDT Vee Harris MD LAB BLOOD ORDERABLES Final Res ult Performing Organization Address [facility]/ZIP Co de Phone Number [facility] [address] [place] [address] [phone] * (ABNORMAL) C-reactive Protein (05/18/2025 2:11 PM EDT) C Reactive Protein 0.52(H) < or = 0.50 mg/dL [facility] Blood Venous blood specimen / Unknown 05/18/2025 2:11 PM EDT 05/18/2025 4:13 PM EDT us Vee Harris MD LAB BLOOD ORDERABLES Final Res ult [facility] [address] [place] [address] [phone] * Hm Colonoscopy (11/08/2024) Colonoscopy Normal Normal Narrative Glenna Best - 11/08/2024 Repeat Colonoscopy in 2 years for Crohn's disease surveillance. See external admission note on 11/08/2024 us Historical Provider HEALTH MAINTENANCE Final Result * (ABNORMAL) Lipid Panel with Reflex to Direct LDL (05/19/2024 11:00 AM EDT) Triglycerides 214(H) <150 mg/dL [facility] Comment:Desirable Triglyceri de: less than 150 mg/dLBorderline High Triglyceride 150-199 mg/dLHigh Triglyceride: 200-499 mg/dLVery High Triglyceride: greater than or equal to 5OO mg/dL Cholesterol 207(H) <200 mg/dL [facility] Comment:Desirable Cholestero l: less than 200 mg/dLBorderline High Cholesterol: 200-239 mg/dLHigh Cholesterol: greater than 239 mg/dL LDL Cholesterol Calculated 124(H) <100 mg/dL [facility] Comment:Desirable LDL: less than 100 mg/dLNear Optimal/Above Optimal LDL: 110- 129 mg/dLBorderline High LDL: 130-159 mg/dLHigh LDL: 160-189 mg/dLVery High LDL: greater than or equal to 190 mg/dL HDL Cholesterol 41 >40 mg/dL [facility] Comment:Desirable HDL: great er than 40 mg/dL Note: This HDL assay may give artificially low results in patients with liver disease. Blood 05/19/2024 11:0 0 AM EDT 05/19/2024 1:20 PM EDT us Leesa Wasserman MD LAB BLOOD ORDERABLES Final Result [facility] [address] [place] [address] [phone] * Image-Guided Pap with Age-Based Screening??with CT/NG,??Trichomonas (07/03/2023 10:41 AM EST) Trichomonas (NAAT) Not Detected Not Detected [facility] Comment:Methodology: Transcr iption Mediated Amplification(TMA)The analytical performance characteristics of thisassay have been determined by [place]. The modificationshave not been cleared or approved by the FDA. Thisassay has been validated pursuant to the CLIAregulations and is used for clinical purposes.For additional information, please refer tohttp://[employer]/faq/Trichomonastma (This link is being providedfor information/educational purposes only).THIS TEST WAS PERFORMED AT:[employer] [id number] [place] [address]DRQECGJRAYMUNDO ALLAN MD,PHD CTNG Ref Lab Not Detected Not Detected [facility] NG Ref Lab Not Detected Not Detected [facility] Comment:Methodology: Transcr iption Mediated Amplification(TMA) to detect RNA.The analytical performance characteristics of thisassay, when used to test SurePath specimens havebeen determined by [employer]. The modificationshave not been cleared or approved by the FDA.This assay has been validated pursuant to the CLIAregulations and is used for clinical purposes.For additional information, please refer tohttps://[employer]/faq/CJR339(This link is being provided for information/educational purposes only).THIS TEST WAS PERFORMED AT:[employer] [id number] [place] [address]XCAGTYTRAYMUNDO ALLAN MD,PHD 07/03/2023 10:4 1 AM EST 07/04/2023 9:02 AM EST Leesa Wasserman MD LAB CYTOLOGY ORDERABL ES Final Result Performing Organization Address [facility]/ZIP Co de Phone Number [facility] [address] [place] [address] [phone] * HPV mRNA E6/E7 w/Reflex to HPV Genotypes 16, 18/45 (07/03/2023 10:41 AM EST) HPV nRNA E6/E7 Not Detected Not Detected [facility] Comment:Methodology: Transcr iption-Mediated AmplificationThis assay detects E6/E7 viral messenger RNA (mRNA) from 14high-risk HPV types (16,18,31,33,35,39,45,51,52,56,58,59,66,68).Cervical sources are required for HPV testing.If a vaginal source from a patient who has had atotal hysterectomy with removal of cervix wassubmitted, please contact the testing laboratoryfor alternative testing options.For additional information, please refer tohttp://education.[employer]/faq/EJK127c6(This link if provided for information/educational purposes only.)THIS TEST WAS PERFORMED AT:[address] [place] [phone] BARROW MD HPV mRNA E6/E7 [facility] HPV 16 RNA [facility] HPV 18/45 RNA [facility] 07/03/2023 10:4 1 AM EST 07/04/2023 8:10 AM EST Leesa Wasserman MD LAB CYTOLOGY ORDERABL ES Final Result Performing Organization Address [facility]/ZIP Co de Phone Number [facility] [address] [place] [address] [phone] * BI Mammogram Screening Tomosynthesis Bilateral (03/13/2023 1:46 PM EDT) Anatomical Region Laterality Modality Breast Bilateral Mammography 03/13/2023 1:46 PM EDT Narrative 04/08/2023 1:29 PM EDT [facility] [address] [place] [address] [place] [address] Mammography Report Signed Patient: Leesa Reyes MR#: [id number] : 1970 Acct:[id number] Age/Sex: 52 / F ADM Date: 03/13/23 Loc: HO.MAMMO Attending Dr: Leesa Wasserman MD Ordering Physician: Leesa Rapp MD Results: Date of Service: 03/13/23 Follow Up: Procedure(s): MM tomosynthesis screening BI Accession Number(s): [id number] cc: Leesa Rapp MD EXAMINATION: MM SCREENING [...] in OV> 04/08/23 1327 DD/ 1346 TD/TT: Archives Technician: Procedure Note Donotuseinterpreter, Image - 04/08/2023 [facility] [address] [place] [address] Mammography Report Signed Patient: Leesa Reyes MMR#: [id number] : 1970Acct:[id number] Age/Sex: 52 / FADM Date: 03/13/23 Loc: HO.MAMMO Attending Dr: Leesa Wasserman MD Ordering Physician: Leesa Rapp MDResults: Date of Service: 03/13/23Follow Up: Procedure(s): MM tomosynthesis screening BI Accession Number(s): [id number] cc: Leesa Rapp MD EXAMINATION: MM SCREENING [...] in OV> 04/08/23 1327 DD/ 1346 TD/TT: Archives Technician: us Leesa Wasserman MD IMG BI PROCEDURES Fin al Result * OCCULT BLOOD STOOL (12/16/2019 4:02 PM EDT) OCCULT BLOOD STOOL NEG NEG [facility] 12/16/2019 4:02 PM EDT us Historical Provider LAB BODY FLUIDS AND STOOL S ORDERABLES Final Result [facility] [address] from Last 3 Months or Most Recently Relevant to Health Maintenance Insurance [employer] C[employer] [address] [place] [address] Care Teams Data Warehouse Administrator Relationship Specialty Start Date End Date Leesa Rapp MD [address] [place] [address] PCP - General Family Medicine 10/15/19 Chaparrita Monsalve Coding Machine OperatorPrototype Special Build 05/26/25
--- OUTSIDE RECORDS SUMMARY | 2025-08-15 07:40 | XMS_ITS | Encounter Summary ---
Author Organization [employer] Address [address] [facility] [address] [place] [address] Care Team Providers Care Outside Food Server Name Role Phone Leesa Rapp MD Primary Care Provide r Adam Hanson RN Unavailable [phone] Cathy Rucker Unavailable Reason for Visit * Reason Comments Med Refill Encounter Details Date Type Department Care Team ([facility] st Contact Info) Description 09/03/2023 Refill [facility] [address] [place], [place] [phone] Rohini Meade MD [address] [place], [place] [phone] Chronic nonintractable headache, unspecified headache type Social [...] type documented in this encounter Care Teams Outside Food Server Relationship Specialty Start Date End Date Leesa Rapp MD [address] [place] [phone] PCP - General Family Medicine 10/15/19 Adam Hanson RN [address] [place] [phone] Registered Nurse Family Medicine 04/26/25 07/25/25 Cathy Rucekr 04/26/25 07/25/25 Chaparrita Monsalve Bulk ClerkBilingual Medical Assistant 05/26/25 documented as of this encounter
--- OUTSIDE RECORDS SUMMARY | 2025-08-15 07:40 | XMS_ITS | Clinical Summary ---
Demographics Address [address] [place] [address] Mobile Phone Home Phone Preferred Language Mauritanian; Castilian Marital Status /Civil Union Anabaptism Affiliation Unknown Race Other Race Ethnic Group or Author Organization [facility] Address [address] [address] Phone Support Name Relationship Address Phone Judie Nunez Personal Relationship Unknown [phone] Minesh Munson Personal Relationship [address] [place] [address] Care Team Providers Care Nursery School Attendant Name Role Phone Leesa Steven MD Primary [...] topic Medical Devices Not on file Insurance [facility] C3 ACO C[address] [place] [address] C3 ACO C3 ACO C3 [address] [place] [address] C3 ACO [address] [place] [address] C3 ACO Care Teams Nursery School Attendant Relationship Specialty Start Date End Date Leesa Steven MD [address] [place] [phone] PCP - General Internal Medicine 12/18/20 Additional Source Comments The information contained in this document represents components of the legal health record. It is not the complete legal health record.[facility]
--- OUTSIDE RECORDS SUMMARY | 2025-08-15 07:40 | XMS_ITS | Encounter Summary ---
Author Organization [employer] Address [address] [facility] [address] [place] [address] Care Team Providers Care Cloth Sponger Name Role Phone Leesa Rapp MD Primary [...] (08/10/2025 11:17 AM EST) Color Urine Yellow [facility] Appearance Urine Clear [facility] PH 5.0 5.0 - 9.0 [facility] Glucose Urine UA Negative Negative mg/dL [facility] Urine Blood Trace(A) Negative [facility] Specific [place] - Urine 1.015 1.005 - 1.025 [facility] Urine Protein Negative Neg-Trace mg/dL [facility] Urine Ketones Negative Negative mg/dL [facility] Nitrite Urine Negative Negative [facility] Leukocyte Esterase Urine Negative Negative [facility] RBC Urine 0-2 0 - 2 /HPF [facility] Urine WBC 0-5 0 - 5 /HPF [facility] Urine Squamous Epithelial Cell 0-2 0 - 2 /HPF [facility] Urine Bacteria None Seen None Seen [facility] Hyaline Casts, Urine 0-2 0 - 2 /LPF [facility] 08/10/2025 11:1 7 AM EST 08/10/2025 2:19 PM EST Narrative [facility] - 08/10/2025 2:37 PM EST Urine, Clean Catch us Generic External Data Provider LAB URINE ORDERAB LES Final Result Performing Organization Address City/State/[facility] Co de Phone Number [facility] [address] [place] [address] [phone] documented in this encounter Visit Diagnoses Not on filedocumented in this encounter Additional Health Concerns Assessment Noted Time PHQ-9 Depression Total Score: 19 025 9:53 AM EDT documented as of this encounter Care Teams Cloth Sponger Relationship Specialty Start Date End Date Leesa Rapp MD [address] [place] [phone] PCP - General Family Medicine 10/15/19 Chaparrita Monsalve Gusset MakerBean Sprout Grower 05/26/25 documented as of this encounter
--- OUTSIDE RECORDS SUMMARY | 2025-08-15 07:40 | XMS_ITS | Encounter Summary ---
Author Organization [employer] Address [address] [facility] 7t [place] [address] Care Team Providers Care Hospice Music Therapy Name Role Phone Leesa Rapp MD Primary Care Provide r Adam Hanson RN Unavailable [phone] Cathy Rucker Unavailable Reason for Visit * Reason Comments Med Refill Encounter Details Date Type Department Care Team ([facility] st Contact Info) Description 05/09/2024 Refill [facility] [address] [place], [place] [phone] Leesa Rapp MD [address] [place], [place] [phone] Vitamin D deficiency; Healthcare maintenance; Anxiety Social [...] documented as of this encounter Care Teams Hospice Music Therapy Relationship Specialty Start Date End Date Leesa Rapp MD [address] [place] [address] PCP - General Family Medicine 10/15/19 Adam Hanson RN [address] [place] [address] Registered Nurse Family Medicine 04/26/25 07/25/25 Cathy Rucker 04/26/25 07/25/25 Chaparrita Monsalve Liquor TesterAnalyst Competitive Intelligence 05/26/25 documented as of this encounter
[2025-08-15 07:51] VITALS: BP 101/58; PULSE 64; BMI 28.0
== END 2025-08-15 08:26 | disposition home or self-care (01) ==
LOC: HO.HGI 07:37
PROVIDERS: PCP Internal Medicine; Visit Provider Internal Medicine Gastroenterology
DX: K21.9 Gastro-esophageal reflux disease without esophagitis (principal); K59.09 Other constipation; K50.111 Crohn's disease of large intestine with rectal bleeding; R19.7 Diarrhea, unspecified
CPT/HCPCS: 99214

== ENCOUNTER → 2025-08-15 07:36 | Outpatient (BNVA) | payer MEDICAID, SELFPAY | PROVIDERS: PCP Internal Medicine; Visit Provider Internal Medicine Gastroenterology | DX: K21.9 Gastro-esophageal reflux disease without esophagitis (principal); K59.09 Other constipation; K50.111 Crohn's disease of large intestine with rectal bleeding; R19.7 Diarrhea, unspecified | CPT/HCPCS: 99212 ==